=== PATIENT | female | born 1950 | race Caucasian/White ===

== ENCOUNTER 2020-05-27 10:43 | Emergency (ER) | payer MEDICARE, SELFPAY ==
--- NOTE | 2020-05-27 | XR_ITS ---
EXAMINATION: XR LUMBOSACRAL SPINE CLINICAL INFORMATION: Pain COMPARISON: May 08, 2015 TECHNIQUE: Three views of the lumbosacral spine. FINDINGS: There is osteopenia visualized bones. There are again noted to be less than 50% compression fractures of the L3 and L4 vertebral bodies which are stable. There is a grade 1 spondylolisthesis L4-L5. There is severe narrowing of the L5-S1 disc space with marginal sclerosis. There is some degenerative sclerosis seen about the left sacroiliac joint without evidence of fusion or widening. Facet arthropathy is seen L2-S1. IMPRESSION: Stable appearance of the lumbar spine with multilevel degenerative change as described. Stable compression fractures L3 and L4.
[2020-05-27 10:57] VITALS: BP 132/88; BP 133/67; PULSE 88; PULSE 89; RESP 16; TEMP 36.7; O2SAT 94; O2SAT 95; BMI 31.6
--- NOTE | 2020-05-27 10:58 | ED_ITS ---
HPI - Back Pain/Injury General Chief Complaint: Back Pain/Injury Stated Complaint: CHRONIC R LEG PAIN Time Seen by Provider: 05/27/20 10:53 Source: patient and EMS Mode of arrival: EMS Limitations: no limitations History of Present Illness MD elicited complaint: back pain Pertinent past history: prior back pain and other Onset (ago): year(s) Timing: constant Severity: severe Quality: sharp Location: lumbar spine Radiation: right upper leg Exacerbating factors: movement Relieving factors: none Associated symptoms: denies other symptoms Treatments prior to arrival: prescription analgesics (tramadol for R wrist but it isn't working) Related Data Home Medications Medication Instructions Recorded Confirmed alendronate 70 mg PO QWEEK 05/27/20 05/27/20 allopurinol 300 mg PO DAILY 05/27/20 05/27/20 cyanocobalamin (vitamin B-12) 500 mcg PO DAILY 05/27/20 05/27/20 furosemide 40 mg PO BID 05/27/20 05/27/20 insulin aspart U-100 [Novolog See Rx Instructions .ROUTE .COMPLEX 05/27/20 05/27/20 Flexpen U-100 Insulin] liraglutide [Victoza 3-Toby] 1.8 mg SUBCUT DAILY 05/27/20 05/27/20 magnesium oxide 400 mg PO DAILY 05/27/20 05/27/20 melatonin 3 mg PO BEDTIME PRN 05/27/20 05/27/20 multivitamin 1 tab PO DAILY 05/27/20 05/27/20 omega-3 fatty acids [Fish Oil] 500 mg PO DAILY 05/27/20 05/27/20 pregabalin 75 mg PO BID 05/27/20 05/27/20 simvastatin 10 mg PO BEDTIME 05/27/20 05/27/20 spironolactone 100 mg PO DAILY 05/27/20 05/27/20 tramadol 50 mg PO Q6H PRN 05/27/20 05/27/20 Allergies Allergy/AdvReac Type Severity Reaction Status Date / Time zolpidem [From AMBIEN] Allergy Severe SLEEP Verified 05/27/20 10:57 WALKING lactic acid [From LAC-HYDRIN] Allergy Intermediate RASH Verified 05/27/20 10:57 latex [Latex] Allergy Intermediate HIVES Verified 05/27/20 10:57 varenicline [From CHANTIX] Allergy Intermediate RASH Verified 05/27/20 10:57 From Benadryl Allergy Intermediate HIVES Uncoded 05/11/20 16:08 Review of Systems Review of Systems: Constitutional : No Weight loss, No Fever, No Chills, ENT/Mouth : No sore throat, No Rhinorrhea Cardiovascular : No Chest Pain, No SOB Respiratory : No Cough, No Dyspnea Gastrointestinal : No Nausea, No Vomiting, No Diarrhea, No abdominal Pain, No Hematochezia, No Melena Genitourinary : No Dysuria, No Urinary Frequency Musculoskeletal : positive back pain R sided radiates down R leg Skin : No Skin Lesions, No rash Neuro : No Weakness, No Numbness, No Paresthesias, no loss of bowel or bladder incontinence, no saddle anesthesia [facility] Past Medical History Attestation statement: The following information was validated with the patient. Medical History (Updated 05/27/20 @ 15:55 by Ashley Caal DO) Anxiety Cellulitis Chronic back pain Diabetes HTN (hypertension) Venous stasis dermatitis Surgical History (Updated 05/27/20 @ 11:00 by Ashley Caal DO) H/O section S/P cervical spinal fusion Social History Social History (Updated 05/27/20 @ 11:00 by Ashley Caal DO) Alcohol intake: never Smoking Status: Current every day smoker Use of substances other than those prescribed or required for medical reasons: No Advance Directives: No Advance Directives Information Provided: No Physical Exam Vital Signs and I&O and Narrative: Vital Signs and I&O: Vital Signs Temp 97.7 F 05/27/20 14:08 Pulse 70 05/27/20 14:08 Resp 18 05/27/20 14:08 BP 153/60 H 05/27/20 14:08 Pulse Ox 95 05/27/20 14:08 Intake & Output 05/26/20 05/27/20 05/27/20 18:59 06:59 18:59 Weight 81 kg Body Mass Index 31.6 Appearance: Alert. Oriented X3. No acute distress. Eyes: Pupils equal, round and reactive to light. ENT: Pharynx normal. Neck: Normal inspection. Neck supple. CVS: Normal heart rate and rhythm. Pulses normal. Respiratory: No respiratory distress. Breath sounds normal. Abdomen: Soft and nontender. Back: ttp along R lumbar area into buttock Skin: Skin warm and dry. Normal skin color. Normal skin turgor. darkening of bilateral anterior lower legs Extremities: No lower extremity edema. R wrist in splint Neuro: Oriented X 3. No motor deficit. No sensory deficit. Course Reevaluation(s) Reevaluation #1: signed out to Dr. Munguia pending CM and PT MDM - Back Pain/Injury MDM Narrative Medical decision making narrative: patient at home - not really able to take care of herself per EMS, patient reports R wrist fracture 2 weeks ago after a fall - taking tramadol it's crappy it doesn't work. also c/o low back pain, EMS worried about patient ?need for STR, patient is NV intact will need labs, xray of lumbar spine, PO pain medications and referral to PT and CM Lab Data Result diagrams: 05/27/20 11:54 05/27/20 11:54 Labs: Lab Results 05/27/20 05/27/20 05/27/20 Range/Units 11:04 11:54 11:54 WBC 7.7 (4.8-10.8) X10*3/uL RBC 4.28 (4.20-5.50) X10*6/uL Hgb 13.0 (12.0-16.0) g/dl Hct 39.7 (37-47) % MCV 92.8 (80-98) fL MCH 30.4 (27.0-33.0) pg MCHC 32.7 (31.0-35.0) g/dl RDW 14.3 (11.0-16.0) % Plt Count 181 (160-400) X10*3/uL MPV 11.9 (9.4-12.3) fL Immature Gran % (Auto) 0.8 H (0.0-0.4) % Neut % (Auto) 63.1 (45-73) % Lymph % (Auto) 21.2 (20-40) % Vilas % (Auto) 11.1 H (2-11) % Eos % (Auto) 3.4 (0-4) % Baso % (Auto) 0.4 (0-2) % Neut # (Auto) 4.9 (2.0-8.3) X10*3/uL Lymph # (Auto) 1.6 (1.2-4.9) X10*3/uL Vilas # (Auto) 0.9 (0.1-1.2) X10*3/uL Eos # (Auto) 0.3 (0.0-0.4) X10*3/uL Baso # (Auto) 0.0 (0.0-0.2) X10*3/uL Abs Immat Gran (auto) 0.06 H (0.00-0.03) X10*3/uL Absolute Nucleated RBC 0.000 (0.0-0.012) X10*3/uL Nucleated RBC % (auto) 0.0 (0.0-0.2) /100WBC Hold Blue Top SEE NOTE Sodium (135-145) mmol/L Potassium (3.3-5.1) mmol/l Chloride (96-108) mmol/L Carbon Dioxide (22-29) mmol/L Anion Gap (12-20) BUN (9-16) mg/dL Creatinine (0.5-1.4) mg/dL Estim Creat Clear Calc Estimated GFR POC Glucose 335 H (60-115) mg/dL Random Glucose (60-115) mg/dL Calcium (8.4-10.2) mg/dL Magnesium (1.6-2.6) mg/dL Total Bilirubin (0.0-1.0) mg/dL Direct Bilirubin (0.0-0.5) mg/dL AST (5-31) U/L ALT (0-31) U/L Alkaline Phosphatase (39-117) U/L Total Protein (6.5-8.0) g/dL Albumin (3.5-5.0) g/dL 05/27/20 Range/Units 11:54 WBC (4.8-10.8) X10*3/uL RBC (4.20-5.50) X10*6/uL Hgb (12.0-16.0) g/dl Hct (37-47) % MCV (80-98) fL MCH (27.0-33.0) pg MCHC (31.0-35.0) g/dl RDW (11.0-16.0) % Plt Count (160-400) X10*3/uL MPV (9.4-12.3) fL Immature Gran % (Auto) (0.0-0.4) % Neut % (Auto) (45-73) % Lymph % (Auto) (20-40) % Vilas % (Auto) (2-11) % Eos % (Auto) (0-4) % Baso % (Auto) (0-2) % Neut # (Auto) (2.0-8.3) X10*3/uL Lymph # (Auto) (1.2-4.9) X10*3/uL Vilas # (Auto) (0.1-1.2) X10*3/uL Eos # (Auto) (0.0-0.4) X10*3/uL Baso # (Auto) (0.0-0.2) X10*3/uL Abs Immat Gran (auto) (0.00-0.03) X10*3/uL Absolute Nucleated RBC (0.0-0.012) X10*3/uL Nucleated RBC % (auto) (0.0-0.2) /100WBC Hold Blue Top Sodium 136 (135-145) mmol/L Potassium 4.0 (3.3-5.1) mmol/l Chloride 97 (96-108) mmol/L Carbon Dioxide 31 H (22-29) mmol/L Anion Gap 12 (12-20) BUN 19 H (9-16) mg/dL Creatinine 1.06 (0.5-1.4) mg/dL Estim Creat Clear Calc 48.3 Estimated GFR 51 POC Glucose (60-115) mg/dL Random Glucose 332 H (60-115) mg/dL Calcium 8.8 (8.4-10.2) mg/dL Magnesium 1.8 (1.6-2.6) mg/dL Total Bilirubin 0.5 (0.0-1.0) mg/dL Direct Bilirubin 0.3 (0.0-0.5) mg/dL AST 14 (5-31) U/L ALT 19 (0-31) U/L Alkaline Phosphatase 94 (39-117) U/L Total Protein 5.7 L (6.5-8.0) g/dL Albumin 3.5 (3.5-5.0) g/dL Discharge Plan Discharge Clinical Impression: Lumbar radiculopathy Prescriptions: No Action tramadol 50 mg tablet 50 mg PO Q6H PRN (Reason: pain) RF: 0 multivitamin Tablet 1 tab PO DAILY RF: 0 furosemide 40 mg tablet 40 mg PO BID RF: 0 alendronate 70 mg tablet 70 mg PO QWEEK RF: 0 spironolactone 100 mg tablet 100 mg PO DAILY RF: 0 simvastatin 10 mg tablet 10 mg PO BEDTIME RF: 0 melatonin 3 mg tablet 3 mg PO BEDTIME PRN (Reason: insomnia) RF: 0 cyanocobalamin (vitamin B-12) 500 mcg tablet 500 mcg PO DAILY RF: 0 allopurinol 300 mg tablet 300 mg PO DAILY RF: 0 insulin aspart U-100 [Novolog Flexpen U-100 Insulin] 100 unit/mL (3 mL) insulin pen See Rx Instructions unit .ROUTE .COMPLEX RF: 0 pregabalin 75 mg Capsule 75 mg PO BID RF: 0 Fish Oil 500 mg Capsule 500 mg PO DAILY RF: 0 Victoza 3-Toby 0.6 mg/0.1 mL (18 mg/3 mL) pen injector 1.8 mg subcut DAILY RF: 0 magnesium oxide 400 mg magnesium Tablet 400 mg PO DAILY RF: 0
[2020-05-27 11:17] LABS: Glucose, Whole Blood 335 mg/dL (60-115)
[2020-05-27] MEDS: oxyCODONE HCl Immed Release 5 MG TABLET PO (11:21)
[2020-05-27 12:20] LABS: MANUAL DIFF FLAG NO
--- NOTE | 2020-05-27 12:21 | MHC.CM.ED ---
pt lives alone in her apt. she reports that she uses a walker, wc and cane c ambulation; and has been managing despite her fractured R wrist from 05/18/20, which is still injured c an krishan bandage. pt reports that she is active c a vna which is scheduled to visit this friday. she believes the agency is [employer] [facility] - a ref. has been made. if this is not the correct agency then patient will be advised to contact the correct vna if she needs to p returning home where she has the correct vna name established. pt has 3 children that live in the area, she reports that they can help her if she needs it. although they cannot help her c a ride home if she is dc'd home from the e.d. in this case a van may be suitable. at this time pt is reporting that she does not want to go to STR or nsg home, but wants to return home. however, PT has not seen the patient yet for the PT eval. after the findings of the PT eval, the patient may change her mind and cm will re-assess pt's willingness to go to STR if approp. cm to cont. to follow.
[2020-05-27 12:29] LABS: Basophils Percent Auto 0.4 % (0-2); Eosinophils Absolute Auto 0.3 X10*3/uL (0.0-0.4); Eosinophils Percent Auto 3.4 % (0-4); Hematocrit 39.7 % (37-47); Imm Gran Abs Auto 0.06 X10*3/uL (0.00-0.03); Imm Gran Pct Auto 0.8 % (0.0-0.4); Lymphocytes Absolute Auto 1.6 X10*3/uL (1.2-4.9); Lymphocytes Percent Auto 21.2 % (20-40); Mean Corpuscular HGB Conc 32.7 g/dl (31.0-35.0); Mean Corpuscular Hemoglobin 30.4 pg (27.0-33.0); Mean Corpuscular Volume 92.8 fL (80-98); Mean Platelet Volume 11.9 fL (9.4-12.3); Monocytes Absolute Auto 0.9 X10*3/uL (0.1-1.2); Monocytes Percent Auto 11.1 % (2-11); Neutrophils Absolute Auto 4.9 X10*3/uL (2.0-8.3); Neutrophils Percent Auto 63.1 % (45-73); Platelet Count 181 X10*3/uL (160-400); Red Blood Count 4.28 X10*6/uL (4.20-5.50); Red Cell Distribution Width 14.3 % (11.0-16.0); White Blood Count 7.7 X10*3/uL (4.8-10.8)
[2020-05-27 12:47] VITALS: BP 160/67; PULSE 88; RESP 17; TEMP 36.6
[2020-05-27 12:47] LABS: Alanine Aminotransferase 19 U/L (0-31); Albumin Level 3.5 g/dL (3.5-5.0); Alkaline Phosphatase 94 U/L (39-117); Anion Gap 12 (12-20); Aspartate Amino Transferase 14 U/L (5-31); Bilirubin Direct 0.3 mg/dL (0.0-0.5); Bilirubin Total 0.5 mg/dL (0.0-1.0); Blood Urea Nitrogen 19 mg/dL (9-16); Calcium 8.8 mg/dL (8.4-10.2); Carbon Dioxide 31 mmol/L (22-29); Chloride 97 mmol/L (96-108); Creatinine Clr Calc Pharmacy 48.3; Estimated Glomerular Filt Rate 51; Glucose Random 332 mg/dL (60-115); Magnesium 1.8 mg/dL (1.6-2.6); Sodium 136 mmol/L (135-145); Total Protein 5.7 g/dL (6.5-8.0)
[2020-05-27] MEDS: HYDROmorphone HCl 2 MG TABLET PO (13:23)
[2020-05-27] MEDS: Lidocaine 4 % Patch ADH..PATCH 1 PATCH TRANSDERMA (13:24)
[2020-05-27 14:08] VITALS: BP 153/60; PULSE 70; RESP 18; TEMP 36.5; O2SAT 95
== END 2020-05-27 17:05 | disposition home or self-care (01) ==
PROVIDERS: Emergency Medicine; Emergency Provider Emergency Medicine; PCP Ophthalmology
DX: M54.16 Radiculopathy, lumbar region (principal); I10 Essential (primary) hypertension; E11.9 Type 2 diabetes mellitus without complications; F17.200 Nicotine dependence, unspecified, uncomplicated
CPT/HCPCS: 36415; 72100; 80048; 80076; 82947; 83735; 85025; 99284

== ENCOUNTER 2020-05-30 13:25 | Emergency (ER) | payer MEDICARE, SELFPAY ==
--- NOTE | 2020-05-30 | XR_ITS ---
EXAMINATION: RIGHT HAND AND WRIST X-RAY CLINICAL INFORMATION: Fall. Pain. COMPARISON: Previous x-ray most recent April 2020 TECHNIQUE: 4 views of the right hand and wrist FINDINGS: There is a transverse nondisplaced fracture of the distal radius. There may be slight dorsal angulation on the lateral view. This does not appear changed from 05/18/2020 exam. No new fracture is seen. There is a severe arthritis at the IP joints, first and fifth MCP joints and first CORRECTION joints with joint space narrowing and osteophyte formation. There is periarticular soft tissue swelling. There is a small 1 x 3 mm radiopaque density in the soft tissues of the distal phalanx of the third finger that is unchanged. IMPRESSION: Transverse nondisplaced fracture of the right distal radius similar to 05/18/2020 exam. No new fracture is seen. Arthritis.
--- NOTE | 2020-05-30 14:20 | ED_ITS ---
HPI - Extremity Problem General Chief complaint: Back Pain/Injury Stated complaint: BACK PAIN Time Seen by Provider: 05/30/20 14:10 Source: patient Mode of arrival: ambulatory Limitations: no limitations History of Present Illness HPI Narrative: patient tells me about 1 week ago she had a fall catching herself with her right wrist. She was seen at urgent care and was told she has a fracture. The patient told me she was placed in an Yoel wrap and was instructed to follow up with primary care doctor. Patient taking tramadol at home with continued pain. No new injury or trauma. No redness, fevers, chills. The patient is also complaining of acute on chronic back pain which she contributes to sciatica. Pain is more on the right side and radiates down the right leg. No saddle anesthesia. No incontinence. No fevers or chills. The patient is ambulatory. Related Data Home Medications Medication Instructions Recorded Confirmed alendronate 70 mg PO QWEEK 05/27/20 05/27/20 allopurinol 300 mg PO DAILY 05/27/20 05/27/20 cyanocobalamin (vitamin B-12) 500 mcg PO DAILY 05/27/20 05/27/20 furosemide 40 mg PO BID 05/27/20 05/27/20 insulin aspart U-100 [Novolog See Rx Instructions .ROUTE .COMPLEX 05/27/20 05/27/20 Flexpen U-100 Insulin] liraglutide [Victoza 3-Toby] 1.8 mg SUBCUT DAILY 05/27/20 05/27/20 magnesium oxide 400 mg PO DAILY 05/27/20 05/27/20 melatonin 3 mg PO BEDTIME PRN 05/27/20 05/27/20 multivitamin 1 tab PO DAILY 05/27/20 05/27/20 omega-3 fatty acids [Fish Oil] 500 mg PO DAILY 05/27/20 05/27/20 pregabalin 75 mg PO BID 05/27/20 05/27/20 simvastatin 10 mg PO BEDTIME 05/27/20 05/27/20 spironolactone 100 mg PO DAILY 05/27/20 05/27/20 tramadol 50 mg PO Q6H PRN 05/27/20 05/27/20 Previous Rx's Medication Instructions Recorded acetaminophen 650 mg PO Q6H PRN #20 cap 05/30/20 cyclobenzaprine 5 mg PO Q8H PRN #10 tab 05/30/20 lidocaine [Lidoderm] 1 patch TOPICAL DAILY #15 ea 05/30/20 oxycodone 5 mg PO BID PRN #5 cap 05/30/20 Allergies Allergy/AdvReac Type Severity Reaction Status Date / Time zolpidem [From AMBIEN] Allergy Severe SLEEP Verified 05/27/20 10:57 WALKING lactic acid [From LAC-HYDRIN] Allergy Intermediate RASH Verified 05/27/20 10:57 latex [Latex] Allergy Intermediate HIVES Verified 05/27/20 10:57 varenicline [From CHANTIX] Allergy Intermediate RASH Verified 05/27/20 10:57 From Benadryl Allergy Intermediate HIVES Uncoded 05/11/20 16:08 Review of Systems Review of Systems: Yes all other systems are reviewed and are negative Constitutional: Constitutional: Reports no additional constitutional complaints, Denies body ache(s), Denies chills, Denies fever(s), Denies headache(s) and Denies weakness Eyes: Eyes: Reports no additional eye complaints and Denies change in vision ENT: Reports system reviewed and no additional complaints, except as documented, Denies dizziness, Denies headache(s), Denies nasal congestion, Denies nasal discharge and Denies neck pain Cardiovascular: Cardiovascular: Reports no additional cardiovascular co mplaints, Denies chest pain, Denies leg edema and Denies dyspnea Respiratory: Respiratory: Reports no additional respiratory complaints, Denies cough and Denies dyspnea Gastrointestinal: Gastrointestinal: Reports no additional gastrointestinal complaints, Denies abdominal pain, Denies diarrhea, Denies nausea and Denies vomiting Genitourinary: Genitourinary: Reports no additional female genitourinary complaints and Denies urinary incontinence Musculoskeletal: Musculoskeletal: Reports no additional musculoskeletal complaints, Reports back pain, Reports arthralgias, Denies joint swelling, Denies neck pain, Denies numbness and Denies tingling Integumentary/Breasts: Skin/Breast: Reports system reviewed and no additional complaints, except as docu and Denies rash Neurologic: Reports system reviewed and no additional complaints, except as documented, Denies Abnormal speech present, Denies dizziness, Denies headache(s), Denies numbness, Denies tingling and Denies weakness PMFSH Past Medical History Attestation statement: The following information was validated with the patient. Source: obtained from family and nursing notes reviewed Medical History Anxiety Cellulitis Chronic back pain Diabetes HTN (hypertension) Venous stasis dermatitis Surgical History H/O section S/P cervical spinal fusion Social History Social History Alcohol intake: never Smoking Status: Current every day smoker Advance Directives: No Advance Directives Information Provided: Yes Physical Exam Vital Signs and I&O and Narrative: Vital Signs and I&O: Vital Signs Temp 98.1 F 05/30/20 15:06 Pulse 91 05/30/20 15:06 Resp 18 05/30/20 15:06 BP 120/65 05/30/20 15:06 Pulse Ox 97 05/30/20 15:06 Intake & Output 05/29/20 05/30/20 05/30/20 18:59 06:59 18:59 Weight 72.575 kg Body Mass Index 28.3 Const: Other: Anxious, in pain General: cooperative, healthy appearing, co mfortable and no acute distress Orientation/consciousness: patient oriented x3 Limitations: no limitations HENMT: Head: Yes normal to inspection Ears: hearing grossly normal bilaterally General nose exam: Normal external nose present Face and sinus: Yes normal facial exam Mouth: Normal oral and palatal mucosa present Throat: Yes posterior oropharynx normal Eyes: General: appearance normal, both eyes and all related structures Pupils: Equal, round and reactive pupils present Neck: Neck: Yes normal visual inspection Chest: Chest palpation & inspection: normal inspection of the chest Resp: Effort & Inspection: normal respiratory effort Auscultation: clear to auscultation bilaterally Cardio: Rate: regular rate Rhythm: regular rhythm Peripheral pulses: Peripheral pulses 2+ throughout GI: Inspection: Yes normal to inspection Palpation (GI): Soft to palpation and nontender Auscultation: normal bowel sounds Back/Spine/Pelvis: Thoracic/Lumbar Spine: thoracic and lumbar spine normal to inspection, pain with thoraco-lumbar ROM and paraspinal muscle tenderness ( Tenderness to the right lower lumbar paraspinal area. No midline tendern) on the right Skin: General skin exam: no rashes or lesions noted Neuro: General: patient oriented x3, no focal motor deficits and normal sensation to monofilament Cranial nerves: Yes Equal, round and reactive pupils present Cognition (Neuro): normal cognition Speech: No Abnormal speech present Gait exam (Neuro): Normal gait present Motor exam (neuro): 5/5 motor strength present throughout Extrem: Other: Yoel wrap present on right upper extremity. It was removed. The patient has pain over her dorsal wrist. There is mild swelling. Pain with flexion and extension but is able to do so. Neurovascularly intact distally. No elbow or shoulder pain. Course Reevaluation(s) Reevaluation #1: Nursing came up to me as the family was expressing concerns about the patient's safety at home due to her chronic back pain and now new right wrist fracture. They are requesting case management involvement. Case management was notified. Time: 15:27 MDM - Extremity (Nontraumatic) MDM Narrative Medical decision making narrative: patient here with right wrist pain status post recent fall. Arrives with an Yoel wrap in place. No new injury or trauma. The patient believes that she has a fracture and was seen at urgent care about a week ago for the same. On exam has some swelling and tenderness over the dorsal wrist. Imaging today shows a transverse nondisplaced fracture of the right distal radius similar to previous. No new arthritis. Arthritis is present. Patient was placed in a volar splint. She has a sling in from home. Also complaining of acute on chronic low back pain which she contributes to sciatica unrelieved with home tramadol. No neuro deficits. No red flag symptoms. No midline tenderness so I do not think imaging would be beneficial. Patient was medicated with p.o. oxycodone with improvement of pain. Family expressed concerns over patient's safety at home due to multiple complaints. Plan for case management involvement. 1600- Spoke to daughter Rosemarie who is in the waiting room. She tells me that the patient has a nurse who comes into the home to help with care. She after long discussion does feel comfortable with the patient going home and does not feel like she needs short-term rehab placement. She was more concerned over the patient's pain control at home. We offered some alternatives to help manage her pain. Also discussed close follow-up with primary care. Reviewed worrisome signs and symptoms and when to return to the emergency department. Comfortable discharge home. Imaging Data Wrist x-ray: My impression: transverse nondisplaced fracture of the right distal radius somewhat a previous Radiologist's impression: EXAMINATION: RIGHT HAND AND WRIST X-RAY CLINICAL INFORMATION: Fall. Pain. COMPARISON: Previous x-ray most recent April 2020 TECHNIQUE: 4 views of the right hand and wrist FINDINGS: There is a transverse nondisplaced fracture of the distal radius. There may be slight dorsal angulation on the lateral view. This does not appear changed from 05/18/2020 exam. No new fracture is seen. There is a severe arthritis at the IP joints, first and fifth MCP joints and first [facility] joints with joint space narrowing and osteophyte formation. There is periarticular soft tissue swelling. There is a small 1 x 3 mm radiopaque density in the soft tissues of the distal phalanx of the third finger that is unchanged. IMPRESSION: Transverse nondisplaced fracture of the right distal radius similar to 05/18/2020 exam. No new fracture is seen. Arthritis. Discharge Plan Discharge Clinical Impression: Sciatica Qualifiers: Laterality: unspecified laterality Qualified Code(s): M54.30 - Sciatica, unspecified side Distal radial fracture Qualifiers: Encounter type: subsequent encounter Fracture type: closed Laterality: right Patient Disposition: Home, Self-Care Instructions: Arm Fracture in Adults (ED), Sciatica (ED) Additional Instructions: Keep splint on at all times. Do not get it try. Use sling for comfort. Elevation, ice over splint. Call orthopedics for a follow-up Heat or ice to low back. Gentle stretching. No heavy lifting or bending. I have prescribed a small dose of oxycodone. DO NOT take with tramadol. Prescriptions: New acetaminophen 325 mg capsule 650 mg PO Q6H PRN (Reason: pain) Qty: 20 RF: 0 lidocaine [Lidoderm] 5 % adhesive patch,medicated 1 patch topical DAILY Qty: 15 RF: 0 cyclobenzaprine 5 mg tablet 5 mg PO Q8H PRN (Reason: muscle spasm) Qty: 10 RF: 0 oxycodone 5 mg capsule 5 mg PO BID PRN (Reason: pain) Qty: 5 RF: 0 No Action tramadol 50 mg tablet 50 mg PO Q6H PRN (Reason: pain) RF: 0 multivitamin Tablet 1 tab PO DAILY RF: 0 furosemide 40 mg tablet 40 mg PO BID RF: 0 alendronate 70 mg tablet 70 mg PO QWEEK RF: 0 spironolactone 100 mg tablet 100 mg PO DAILY RF: 0 simvastatin 10 mg tablet 10 mg PO BEDTIME RF: 0 melatonin 3 mg tablet 3 mg PO BEDTIME PRN (Reason: insomnia) RF: 0 cyanocobalamin (vitamin B-12) 500 mcg tablet 500 mcg PO DAILY RF: 0 allopurinol 300 mg tablet 300 mg PO DAILY RF: 0 insulin aspart U-100 [Novolog Flexpen U-100 Insulin] 100 unit/mL (3 mL) insulin pen See Rx Instructions unit .ROUTE .COMPLEX RF: 0 pregabalin 75 mg Capsule 75 mg PO BID RF: 0 Fish Oil 500 mg Capsule 500 mg PO DAILY RF: 0 Victoza 3-Toby 0.6 mg/0.1 mL (18 mg/3 mL) pen injector 1.8 mg subcut DAILY RF: 0 magnesium oxide 400 mg magnesium Tablet 400 mg PO DAILY RF: 0 Referrals: Duane Barber MD [Physician] - 2 days Ranjeet Rushing MD [Primary Care Provider] - 2 days
[2020-05-30 15:06] VITALS: BP 120/65; PULSE 91; RESP 18; TEMP 36.7; O2SAT 97; BMI 28.3
--- NOTE | 2020-05-30 15:23 | PC.NURSE ---
pts daughter concerned re: pts dementia and returning home as she lives alone. KIERRA Dean updated, case mgt to be notified re: these concerns
[2020-05-30] MEDS: oxyCODONE HCl Immed Release 5 MG TABLET PO (15:38)
--- NOTE | 2020-05-30 16:29 | PC.NURSE ---
KIERRA AHN SPOKE WITH DAUGHTER AND THEY AGREED ON A PLAN OF CARE AT HOME PT HAS HOME HEALTH AID ALREADY IN PLACE PT WILL F/U WITH ORTHO SPLINT IN PLACE AND PAIN MEDICATION FOR HOME.
== END 2020-05-30 16:34 | disposition home or self-care (01) ==
PROVIDERS: Emergency Provider Emergency Medicine; PCP Internal Medicine
DX: S52.91XA Unspecified fracture of right forearm, initial encounter for closed fracture (principal); M54.42 Lumbago with sciatica, left side; M54.41 Lumbago with sciatica, right side; M79.662 Pain in left lower leg; M79.661 Pain in right lower leg; W18.30XA Fall on same level, unspecified, initial encounter; Y93.9 Activity, unspecified; Y92.9 Unspecified place or not applicable; F17.200 Nicotine dependence, unspecified, uncomplicated; Z71.6 Tobacco abuse counseling; Z79.899 Other long term (current) drug therapy
CPT/HCPCS: 73110; 73130; 99284

== ENCOUNTER 2020-06-06 22:01 | Emergency (ER) | payer MEDICARE, SELFPAY ==
[2020-06-06 22:03] VITALS: BP 119/58; PULSE 93; RESP 18; TEMP 35.6; O2SAT 96; BMI 27.4
--- NOTE | 2020-06-07 01:22 | ED.GENADULT ---
HPI - General Adult General Chief complaint: Fall Stated complaint: fall Time Seen by Provider: 06/07/20 01:11 Source: patient Mode of arrival: ambulatory Limitations: no limitations History of Present Illness HPI narrative: Patient comes to emergency room complaining of 2 falls today. patient states earlier today she was baking a pie, dropped to the floor, as she was picking it up, she fell to the floor. Patient states she did not hit her head, did not lose consciousness. Patient was unable to get up by herself, however she screamed for help and her next door neighbor helped her. Patient was ambulatory afterwards. Patient's neighbor called the patient's daughter who wanted to know how she fell, as the patient was demonstrating how she fell, she actually fell again. patient fell on May 18, has a fracture on the right wrist. Patient has an appointment with Orthopedics later today. patient denies any pain MD complaint: frequent falls Onset (ago): hour(s) Radiation: non-radiation Severity: moderate Related Data Home Medications Medication Instructions Recorded Confirmed alendronate 70 mg PO QWEEK 05/27/20 06/07/20 allopurinol 300 mg PO DAILY 05/27/20 06/07/20 cyanocobalamin (vitamin B-12) 500 mcg PO DAILY 05/27/20 06/07/20 furosemide 40 mg PO BID 05/27/20 06/07/20 insulin aspart U-100 [Novolog See Rx Instructions .ROUTE .COMPLEX 05/27/20 06/07/20 Flexpen U-100 Insulin] liraglutide [Victoza 3-Toby] 1.8 mg SUBCUT DAILY 05/27/20 06/07/20 magnesium oxide 400 mg PO DAILY 05/27/20 06/07/20 melatonin 3 mg PO BEDTIME PRN 05/27/20 06/07/20 multivitamin 1 tab PO DAILY 05/27/20 06/07/20 omega-3 fatty acids [Fish Oil] 500 mg PO DAILY 05/27/20 06/07/20 pregabalin 75 mg PO BID 05/27/20 06/07/20 simvastatin 10 mg PO BEDTIME 05/27/20 06/07/20 spironolactone 100 mg PO DAILY 05/27/20 06/07/20 tramadol 50 mg PO Q6H PRN 10/03/20 10/14/20 Previous Rx's Medication Instructions Recorded acetaminophen 650 mg PO Q6H PRN #20 cap 05/30/20 cyclobenzaprine 5 mg PO Q8H PRN #10 tab 05/30/20 lidocaine [Lidoderm] 1 patch TOPICAL DAILY #15 ea 05/30/20 oxycodone 5 mg PO BID PRN #5 cap 05/30/20 Allergies Allergy/AdvReac Type Severity Reaction Status Date / Time zolpidem [From AMBIEN] Allergy Severe SLEEP Verified 05/27/20 10:57 WALKING lactic acid [From LAC-HYDRIN] Allergy Intermediate RASH Verified 05/27/20 10:57 latex [Latex] Allergy Intermediate HIVES Verified 05/27/20 10:57 varenicline [From CHANTIX] Allergy Intermediate RASH Verified 05/27/20 10:57 From Benadryl Allergy Intermediate HIVES Uncoded 05/11/20 16:08 PMFSH Past Medical History Medical History Anxiety Cellulitis Chronic back pain Diabetes HTN (hypertension) Venous stasis dermatitis Surgical History H/O section S/P cervical spinal fusion Social History Social History Alcohol intake: never Smoking Status: Never smoker Use of substances other than those prescribed or required for medical reasons: No Advance Directives: No Advance Directives Information Provided: No Physical Exam Vital Signs: Vital Signs: Vital Signs Temp Pulse Resp BP Pulse Ox 06/07/20 07:55 85 153/59 H 95 06/07/20 02:27 85 16 153/59 H 95 06/06/20 22:03 96.1 F L 93 18 119/58 L 96 Body Mass Index 27.4 Course Course Course Narrative: case management pending case management pending Reevaluation(s) Reevaluation #1: case management pending, physical therapy evaluated the patient and recommends short-term rehab. Sign-out given to Dr. Caal. Later today this afternoon, patient has an appointment pending with Orthopedics for the follow-up fracture on the right wrist. Medical Decision Making MDM Narrative Medical decision making narrative: physical therapy evaluated the patient, patient does need short-term rehab Lab Data Result diagrams: 06/07/20 01:48 06/07/20 01:48 Labs: Lab Results 06/07/20 06/07/20 06/07/20 Range/Units 01:48 01:48 05:42 WBC 9.1 (4.8-10.8) X10*3/uL RBC 3.99 L (4.20-5.50) X10*6/uL Hgb 12.2 (12.0-16.0) g/dl Hct 37.9 (37-47) % MCV 95.0 (80-98) fL MCH 30.6 (27.0-33.0) pg MCHC 32.2 (31.0-35.0) g/dl RDW 14.5 (11.0-16.0) % Plt Count 240 D (160-400) X10*3/uL MPV 11.0 (9.4-12.3) fL Immature Gran % (Auto) 0.7 H (0.0-0.4) % Neut % (Auto) 50.6 (45-73) % Lymph % (Auto) 33.2 (20-40) % [place] % (Auto) 9.4 (2-11) % Eos % (Auto) 5.8 H (0-4) % Baso % (Auto) 0.3 (0-2) % Lymph # (Auto) 3.0 (1.2-4.9) X10*3/uL [place] # (Auto) 0.9 (0.1-1.2) X10*3/uL Eos # (Auto) 0.5 H (0.0-0.4) X10*3/uL Baso # (Auto) 0.0 (0.0-0.2) X10*3/uL Abs Immat Gran (auto) 0.06 H (0.00-0.03) X10*3/uL Absolute Neuts (auto) 4.6 (2.0-8.3) X10*3/uL Absolute Nucleated RBC 0.000 (0.0-0.012) X10*3/uL Nucleated RBC % (auto) 0.0 (0.0-0.2) /100WBC Sodium 136 (135-145) mmol/L Potassium 3.5 (3.3-5.1) mmol/l Chloride 96 (96-108) mmol/L Carbon Dioxide 34 H (22-29) mmol/L Anion Gap 10 L (12-20) BUN 23 H (9-16) mg/dL Creatinine 1.46 H (0.5-1.4) mg/dL Estim Creat Clear Calc 32.7 Estimated GFR 35 Random Glucose 62 D (60-115) mg/dL Calcium 8.8 (8.4-10.2) mg/dL Total Bilirubin 0.5 (0.0-1.0) mg/dL Direct Bilirubin 0.2 (0.0-0.5) mg/dL AST 21 D (5-31) U/L ALT 18 (0-31) U/L Alkaline Phosphatase 99 (39-117) U/L Total Protein 5.8 L (6.5-8.0) g/dL Albumin 3.6 (3.5-5.0) g/dL Urine Color STRAW Urine Appearance HAZY Urine pH 6.5 (5.0-8.0) Ur Specific [place] 1.010 (1.005-1.025) Urine Protein NEG (NEG-TRACE) MG/DL Urine Glucose (UA) NEG (NEG) MG/DL Urine Ketones NEG (NEG) MG/DL Urine Blood NEG (NEG) Urine Nitrite POS H (NEG) Ur Leukocyte Esterase 1+ H (NEG) Urine RBC 0-2 (0) /HPF Urine WBC 15-29 H (0-4) /HPF Ur Squamous Epith Cells 2+ /LPF Urine Bacteria 2+ /LPF Urine Yeast TRACE /HPF Discharge Plan Discharge Clinical Impression: Recurrent falls Prescriptions: No Action tramadol 50 mg tablet 50 mg PO Q6H PRN (Reason: pain) RF: 0 multivitamin Tablet 1 tab PO DAILY RF: 0 furosemide 40 mg tablet 40 mg PO BID RF: 0 alendronate 70 mg tablet 70 mg PO QWEEK RF: 0 spironolactone 100 mg tablet 100 mg PO DAILY RF: 0 simvastatin 10 mg tablet 10 mg PO BEDTIME RF: 0 melatonin 3 mg tablet 3 mg PO BEDTIME PRN (Reason: insomnia) RF: 0 cyanocobalamin (vitamin B-12) 500 mcg tablet 500 mcg PO DAILY RF: 0 allopurinol 300 mg tablet 300 mg PO DAILY RF: 0 insulin aspart U-100 [Novolog Flexpen U-100 Insulin] 100 unit/mL (3 mL) insulin pen See Rx Instructions unit .ROUTE .COMPLEX RF: 0 pregabalin 75 mg Capsule 75 mg PO BID RF: 0 Fish Oil 500 mg Capsule 500 mg PO DAILY RF: 0 Victoza 3-Toby 0.6 mg/0.1 mL (18 mg/3 mL) pen injector 1.8 mg subcut DAILY RF: 0 magnesium oxide 400 mg magnesium Tablet 400 mg PO DAILY RF: 0 acetaminophen 325 mg capsule 650 mg PO Q6H PRN (Reason: pain) Qty: 20 RF: 0 lidocaine [Lidoderm] 5 % adhesive patch,medicated 1 patch topical DAILY Qty: 15 RF: 0 cyclobenzaprine 5 mg tablet 5 mg PO Q8H PRN (Reason: muscle spasm) Qty: 10 RF: 0 oxycodone 5 mg capsule 5 mg PO BID PRN (Reason: pain) Qty: 5 RF: 0
[2020-06-07 01:53] LABS: Basophils Percent Auto 0.3 % (0-2); Eosinophils Absolute Auto 0.5 X10*3/uL (0.0-0.4); Eosinophils Percent Auto 5.8 % (0-4); Hematocrit 37.9 % (37-47); Hemoglobin 12.2 g/dl (12.0-16.0); Imm Gran Abs Auto 0.06 X10*3/uL (0.00-0.03); Imm Gran Pct Auto 0.7 % (0.0-0.4); Lymphocytes Percent Auto 33.2 % (20-40); MANUAL DIFF FLAG NO; Mean Corpuscular HGB Conc 32.2 g/dl (31.0-35.0); Mean Corpuscular Hemoglobin 30.6 pg (27.0-33.0); Monocytes Absolute Auto 0.9 X10*3/uL (0.1-1.2); Monocytes Percent Auto 9.4 % (2-11); Neutrophils Absolute Auto 4.6 X10*3/uL (2.0-8.3); Neutrophils Percent Auto 50.6 % (45-73); Platelet Count 240 X10*3/uL (160-400); Red Blood Count 3.99 X10*6/uL (4.20-5.50); Red Cell Distribution Width 14.5 % (11.0-16.0); White Blood Count 9.1 X10*3/uL (4.8-10.8)
[2020-06-07 02:19] LABS: Alanine Aminotransferase 18 U/L (0-31); Albumin Level 3.6 g/dL (3.5-5.0); Alkaline Phosphatase 99 U/L (39-117); Anion Gap 10 (12-20); Aspartate Amino Transferase 21 U/L (5-31); Bilirubin Direct 0.2 mg/dL (0.0-0.5); Bilirubin Total 0.5 mg/dL (0.0-1.0); Blood Urea Nitrogen 23 mg/dL (9-16); Calcium 8.8 mg/dL (8.4-10.2); Carbon Dioxide 34 mmol/L (22-29); Chloride 96 mmol/L (96-108); Creatinine Clr Calc Pharmacy 32.7; Estimated Glomerular Filt Rate 35; Glucose Random 62 mg/dL (60-115); Potassium 3.5 mmol/l (3.3-5.1); Sodium 136 mmol/L (135-145); Total Protein 5.8 g/dL (6.5-8.0)
[2020-06-07 02:27] VITALS: BP 153/59; PULSE 85; RESP 16; O2SAT 95
[2020-06-07] MEDS: 0.9 % Sodium Chloride 1,000 ML 999 ML IVCONT (03:35)
[2020-06-07] MEDS: Acetaminophen 325 MG TABLET 650 MG PO (04:25)
[2020-06-07 05:48] LABS: Glucose Urine UA NEG (NEG); Leukocyte Esterase Urine 1+ (NEG); Nitrite Urine POS (NEG); PH 6.5 (5.0-8.0); Urine Blood NEG (NEG); Urine Ketones NEG (NEG); Urine Protein NEG (NEG-TRACE)
[2020-06-07 05:50] LABS: Appearance Urine HAZY; Color Urine STRAW
[2020-06-07 06:10] LABS: Bacteria Urine 2+ /LPF; RBC Urine 0-2 /HPF (0); Squamous Epithelial Cell Urine 2+ /LPF
--- NOTE | 2020-06-07 07:05 | PC.NURSE ---
pt appears to be sleeping in stretcher at this time, rr even/unlabored. per previous shift rn, pt to be seen by case mgmt this morning. breakfast tray at bedside
--- NOTE | 2020-06-07 07:45 | PC.NURSE ---
phys therapy here to assess pt, ambulating w slow steady gait using walker in hallways.
[2020-06-07 07:55] VITALS: BP 153/59; PULSE 85; O2SAT 95
[2020-06-07] MEDS: traMADoL HCL 50 MG TABLET PO ×2 (08:38→12:38)
--- NOTE | 2020-06-07 10:16 | MHC.CM.ED ---
Received case management consult overnight. Patient came to ER after a fall. Physical therapy eval completed. Short term rehab is recommended. Met with patient. Patient has been to [facility] in the past. Patient does not want to return there. Patient wants to speak to her daughter about rehab choices. T/w spoke with Rosemarie via telephone. Rosemarie is requesting referral to [facility]. Referral made via allscripts. Continue to monitor for d/c needs.
[2020-06-07] MEDS: oxyCODONE HCl Immed Release 5 MG TABLET PO (17:50)
--- NOTE | 2020-06-07 20:20 | PC.NURSE ---
Pt OOB ambulating to the bathroom with 1 assist. Pt requesting PO intake, provided with food/drink by collection systems technician.
--- NOTE | 2020-06-07 20:30 | PC.NURSE ---
This RN contacting the lab regarding order for BMP as BMP had already been resulted several hours prior. Per lab, duplicate order, lab stated all orders are resulted, just waiting on the Covid.
[2020-06-07 21:42] VITALS: BP 129/57; PULSE 92; RESP 20; O2SAT 92
--- NOTE | 2020-06-07 21:50 | PC.NURSE ---
This RN at bedside providing pt with a complete bed change. Pt requesting warm blanks, milk and water, provided with all requests. Pt assisted back into bed in POC, watching TV, aware of plan to transfer to SNF tomorrow.
[2020-06-07] MEDS: LORazepam 1 MG TABLET 2 MG PO (23:26)
--- NOTE | 2020-06-07 23:55 | PC.NURSE ---
Pt ringing call thorn[place] repeatedly, pt remains uncomfortable and anxious despite frequent repositioning. Pt transferred into recliner but reports little relief. Pt awaiting midnight pain medication. Continue to monitor.
[2020-06-08] VITALS (9 sets, daily range): BP systolic 121–153; BP diastolic 57–71; PULSE 77–93; RESP 16–20; O2SAT 93–97
[2020-06-08] MEDS: oxyCODONE HCl Immed Release 5 MG TABLET PO ×2 (00:04→12:09)
--- NOTE | 2020-06-08 01:09 | PC.NURSE ---
Pt resting in bed in NAD at this time, visible chest rise noted. Continue to monitor.
--- NOTE | 2020-06-08 03:19 | PC.NURSE ---
This RN looking further into pending BMP that had been discussed earlier in the night with the lab, this RN considering the possibility of being a repeat BMP due to elevated BUN/CR. This RN obtain repeat BMP and Covid as Covid had not been previously obtained by day shift RN. Awaiting results.
[2020-06-08 03:44] LABS: Anion Gap 11 (12-20); Blood Urea Nitrogen 16 mg/dL (9-16); Calcium 8.9 mg/dL (8.4-10.2); Carbon Dioxide 29 mmol/L (22-29); Chloride 106 mmol/L (96-108); Creatinine Clr Calc Pharmacy 47.8; Estimated Glomerular Filt Rate 55; Glucose Random 79 mg/dL (60-115); Potassium 3.9 mmol/l (3.3-5.1); Sodium 142 mmol/L (135-145)
--- NOTE | 2020-06-08 03:51 | PC.NURSE ---
Pt requesting to be repositioned, assisted OOB and into wheelchair per request. VSS. Continue to monitor.
[2020-06-08 04:26] LABS: SARS COV2 PCR INHOUSE NEGATIVE (Negative)
--- NOTE | 2020-06-08 05:55 | PC.NURSE ---
Pt asleep in wheelchair at this time, RR 16/min, visible chest rise noted. Continue to monitor.
--- NOTE | 2020-06-08 06:07 | PC.NURSE ---
Pt found hunched over asleep in wheelchair. This RN offering to assist pt back into bed into POC, pt refusing at this time, states she is more comfortable in the wheelchair. VSS. Continue to monitor.
--- NOTE | 2020-06-08 08:29 | PC.NURSE ---
PT SLEEPING, AWAITING INSURANCE AUTH FOR [facility] SPLINT TO RIGHT FA, GOOD COLOR TO DISTAL HAND. VITALS STABLE
--- NOTE | 2020-06-08 08:46 | MHC.CM.ED ---
Patient remains in ER. Covid screen is negative. Received message from Katelyn at [facility] that they won't approve acute rehab level of care. They will authorize fdc level of care. Will reach out to patient's daughter for fdc facility choices. Continue to monitor for d/c needs.
--- NOTE | 2020-06-08 09:54 | MHC.CM.ED ---
Spoke with patient's daughter, Rosemarie via telephone at [phone]. Explained [facility] will only authorize senior living level of care. Referral made to [facility] at Rosemarie's request. Continue to monitor for d/c needs.
--- NOTE | 2020-06-08 10:33 | MHC.CM.ED ---
[facility] is able to offer a bed. They are in the process of obtaining insurance auth. Continue to monitor for d/c needs.
--- NOTE | 2020-06-08 13:32 | PC.NURSE ---
Pt awoke and stated pain is unchanged, pt repositioned into wheelchair per request and table given with lunch provided.
--- NOTE | 2020-06-08 13:37 | PC.NURSE ---
Pharmacy called x2. insulin in chart without all dosing instructions, and pt reports only taking ssi coverage in am. also victoza on pts chart, no full instructions and not formulary. Pharmacy to assess
--- NOTE | 2020-06-08 14:30 | PC.NURSE ---
Pain level decreased to 8/10 after in wheelchair. Eating lunch, tolerating well. Spoke to daughter Rosemarie again, asked for ortho to assess pt while in ed as f/u appt was yesterday and pt was in ed. Ludivina MORALES notified. [facility] to not accept pt d/t insurance, CM to inquire about other options with family
--- NOTE | 2020-06-08 15:16 | MHC.CM.ED ---
pt has been accepted and auth given by insurer. she will [place] [facility] [place] at 4 [place]. the dariel , rn and junior legal secretary in the e.d. are aware of these dc details. cm to cont. to follow.
--- NOTE | 2020-06-08 16:06 | PC.NURSE ---
report to hebert elliott
== END 2020-06-08 16:14 | disposition skilled nursing facility (03) ==
PROVIDERS: Physician Assistant; Emergency Provider Emergency Medicine; PCP Internal Medicine
DX: R29.6 Repeated falls (principal); E11.9 Type 2 diabetes mellitus without complications; I10 Essential (primary) hypertension; Z79.899 Other long term (current) drug therapy; Z20.828 Contact with and (suspected) exposure to other viral communicable diseases
CPT/HCPCS: 36415; 80048; 80076; 81001; 85025; 87086; 87635; 97161; 97165; 99284; 99285

== ENCOUNTER 2020-06-29 10:12 | Outpatient (REF) | payer MEDICARE, SELFPAY ==
--- NOTE | 2020-06-29 10:44 | XR_ITS ---
EXAMINATION: XR WRIST, RIGHT CLINICAL INFORMATION: Fracture distal right radius. Follow-up. COMPARISON: Radiographs right breast 05/30/2020, 05/18/2020 TECHNIQUE: PA, lateral, and oblique views of the right wrist. FINDINGS: There is increased callus formation around the distal radial fracture.. Fracture line still visible. Alignment is unchanged. Again, there is slight dorsal angulation distal radioarticular surface. The ulnar variance is neutral. There is no acute fracture or dislocation. There is likely small subchondral cyst radial side lunate. Osteoarthritic changes again noted first carpometacarpal joint, interphalangeal joint thumb, and MCP joints, greatest first and second. XR/XR wrist RT min 3V IMPRESSION: Healing fracture distal right radius. No change in alignment.
== END 2020-06-29 10:13 | disposition home or self-care (01) ==
LOC: HO.HOSX 10:12
PROVIDERS: Visit Provider Physician Assistant
DX: S52.501D Unspecified fracture of the lower end of right radius, subsequent encounter for closed fracture with routine healing (principal)
CPT/HCPCS: 73110; 99212

== ENCOUNTER 2021-03-20 10:24 | Inpatient (IN) | payer MEDICARE, SELFPAY ==
--- NOTE | ~2021-03-20 | XR_ITS ---
EXAMINATION: XR FOOT, RIGHT CLINICAL INFORMATION: Cellulitis. Rule out osteomyelitis. COMPARISON: None TECHNIQUE: AP, lateral, and oblique views of the right foot. FINDINGS: Bone alignment is normal. No fracture or dislocation is seen. There is mild arthritis at the first IP and MTP joints. There are calcaneal spurs. No evidence of osteomyelitis seen. No abnormal air collection or soft tissue foreign body is seen. XR/XR foot RT 2V IMPRESSION: Arthritis of the great toe. No evidence of osteomyelitis.
--- NOTE | ~2021-03-20 | XR_ITS ---
EXAMINATION: XR CHEST CLINICAL INFORMATION: Cough COMPARISON: Previous chest x-ray most recent July 2019 TECHNIQUE: Frontal view of the chest was obtained. FINDINGS: The lung volumes are low. The cardiac silhouette does not appear enlarged. There are increased central bronchovascular markings. This may be due to low lung volumes. The lungs are otherwise clear. There are degenerative changes of the spine and mild scoliosis. There is arthritis at the right shoulder joint. There are postsurgical changes of the cervical spine. XR/XR chest 1V IMPRESSION: Low lung volumes. Prominent central bronchovascular markings. This may be related to low lung volumes.
[2021-03-20 11:33] VITALS: BP 129/84; PULSE 80; RESP 18; TEMP 36.6; O2SAT 93; BMI 30.1
[2021-03-20 15:37] VITALS: BP 161/43; PULSE 97; RESP 15; TEMP 36.6; O2SAT 95
--- NOTE | 2021-03-20 15:51 | ED_ITS ---
HPI - General Adult General Chief complaint: Extremity Problem Stated complaint: rt foot infection Time Seen by Provider: 03/20/21 15:41 Source: patient and family (Daughter) Mode of arrival: ambulatory Limitations: no limitations History of Present Illness HPI narrative: 70-year-old female came in for evaluation of her right foot cellulitis. Patient has been following with the wound clinic patient finished course of doxycycline without improvement and worsening of the infection and the right foot, patient declined any fever chills, but worsening of the pain of the right foot unable to bear weight on it and ambulate. Related Data Home Medications Medication Instructions Recorded Confirmed alendronate 70 mg PO QWEEK 05/27/20 03/20/21 allopurinol 300 mg PO DAILY 05/27/20 03/20/21 cyanocobalamin (vitamin B-12) 500 mcg PO DAILY 05/27/20 03/20/21 furosemide 40 mg PO BID 05/27/20 03/20/21 liraglutide [Victoza 3-Toby] 1.8 mg SUBCUT DAILY 05/27/20 03/20/21 magnesium oxide 400 mg PO DAILY 05/27/20 03/20/21 melatonin 3 mg PO BEDTIME PRN 05/27/20 03/20/21 multivitamin 1 tab PO DAILY 05/27/20 06/07/20 omega-3 fatty acids [Fish Oil] 500 mg PO DAILY 05/27/20 03/20/21 pregabalin 150 mg PO BID 05/27/20 03/20/21 simvastatin 10 mg PO BEDTIME 05/27/20 03/20/21 spironolactone 100 mg PO DAILY 05/27/20 03/20/21 tramadol 50 mg PO Q6H PRN 05/27/20 03/20/21 bupropion HCl 300 mg PO QAM 03/20/21 03/20/21 cholecalciferol (vitamin D3) 25 mcg PO DAILY 03/20/21 03/20/21 sertraline 50 mg PO DAILY 03/20/21 03/20/21 Previous Rx's Medication Instructions Recorded acetaminophen 650 mg PO Q6H PRN #20 cap 05/30/20 arm brace #1 ea 06/29/20 Allergies Allergy/AdvReac Type Severity Reaction Status Date / Time zolpidem [From AMBIEN] Allergy Severe SLEEP Verified 03/20/21 11:33 WALKING lactic acid [From LAC-HYDRIN] Allergy Intermediate RASH Verified 03/20/21 11:33 latex [Latex] Allergy Intermediate HIVES Verified 03/20/21 11:33 varenicline [From CHANTIX] Allergy Intermediate RASH Verified 03/20/21 11:33 From Benadryl Allergy Intermediate HIVES Uncoded 05/11/20 16:08 Review of Systems Review of Systems: All other systems are reviewed and are negative Constitutional: Reports as per HPI and Reports no additional constitutional complaints Eyes: Reports as per HPI and Reports no additional eye complaints Reports system reviewed and no additional complaints, except as documented Cardiovascular: Reports as per HPI and Reports no additional cardiovascular complaints Respiratory: Reports as per HPI and Reports no additional respiratory complaints Gastrointestinal: Reports as per HPI and Reports no additional gastrointestinal complaints Genitourinary: Reports no additional female genitourinary complaints Musculoskeletal: Reports no additional musculoskeletal complaints Skin/Breast: Reports system reviewed and no additional complaints, except as doc u Psychiatric: Reports no additional psychiatric complaints Endocrine: Reports no additional endocrine complaints Hematologic/Lymphatic: Reports no additional hematologic/lymphatic complaints Allergic/Immunologic: Reports no additional allergic/immunologic complaints Reports system reviewed and no additional complaints, except as documented and Reports Abnormal speech present [facility] Past Medical History Medical History Anxiety Carpal tunnel syndrome Cellulitis Chronic back pain CKD (chronic kidney disease) Depression Diabetes Diabetic neuropathy HTN (hypertension) Hyperlipidemia Osteoporosis Psoriasis Spondylosis Venous stasis dermatitis Surgical History H/O section S/P cervical spinal fusion Social History Social History Alcohol intake: never Patient Tobacco Use Status: Former Tobacco user Use of substances other than those prescribed or required for medical reasons: No Advance Directives: No Advance Directives Information Provided: Yes Physical Exam Vital Signs: Vital Signs: Last Vital Signs Temp 97.8 F 03/20/21 15:37 Pulse 97 03/20/21 15:37 Resp 15 03/20/21 15:37 BP 161/43 H 03/20/21 15:37 Pulse Ox 95 03/20/21 15:37 Body Mass Index 30.1 Vital signs have been reviewed as appeared to be correct. Blood pressure normal. Heart rate normal. Respiration rate normal. Temperature normal. Oxygen saturation normal. Appearance: Alert. Oriented X3. No acute distress. Head: Normal external exam. Normocephalic. Atraumatic. No Chambers signs noted. No raccoon eyes noted Eyes: PERRLA. EOMI. Conjunctiva and sclera normal. Eyelids normal. ENT: TM's Normal. Pharynx normal. Uvula midline. Moist mucous membranes. No trismus noted. No drooling noted. No muffled voice noted. Neck: Normal inspection. Neck supple. FROM. No adenopathy. Thyroid Normal. No meningeal signs. No neck mass noted. CVS: Normal heart rate and rhythm. Heart sound normal. No murmurs noted. Pulses normal throughout. Respiratory: No respiratory distress. Painless inspiration. Breath sounds normal. No wheezes/rales/rhonchi noted. Chest nontender. No accessory muscle usage noted or decreased air movement noted. Abdomen: Soft and nontender. Bowel sounds normal in all 4 quadrants. No distention noted. No organomegaly noted. No visible injury noted. Back: No CVA tenderness. Full range of motion noted. Skin: Skin warm and dry. Normal skin color. Normal skin turgor. No rashes /lesions/lacerations noted. Extremities: Area of redness, hotness, tenderness about 3 x 5 cm on the medial aspect of the medial arch of the right foot extending to both palmar and the sole of the right foot. Neurovascularly intact. Neuro: Oriented X 3. No motor deficit. No sensory deficit. Reflexes normal. Course Course Course Narrative: 70-year-old female came in with a right foot cellulitis not responding to oral doxycycline. No sirs criteria, will admit for IV antibiotic. Medical Decision Making Lab Data Lab results reviewed: Yes I reviewed the patient's lab results. Result diagrams: 03/20/21 16:09 03/20/21 16:09 Labs: Lab Results 03/20/21 03/20/21 03/20/21 Range/Units 16:09 16:09 16:09 WBC 7.2 (4.8-10.8) X10*3/uL RBC 4.32 (4.20-5.50) X10*6/uL Hgb 13.1 (12.0-16.0) g/dl Hct 40.5 (37-47) % MCV 93.8 (80-98) fL MCH 30.3 (27.0-33.0) pg MCHC 32.3 (31.0-35.0) g/dl RDW 15.7 (11.0-16.0) % Plt Count 199 (160-400) X10*3/uL MPV 11.7 (9.4-12.3) fL Immature Gran % (Auto) 0.3 (0.0-0.4) % Neut % (Auto) 56.3 (45-73) % Lymph % (Auto) 25.9 (20-40) % [place] % (Auto) 10.0 (2-11) % Eos % (Auto) 6.9 H (0-4) % Baso % (Auto) 0.6 (0-2) % Lymph # (Auto) 1.9 (1.2-4.9) X10*3/uL [place] # (Auto) 0.7 (0.1-1.2) X10*3/uL Eos # (Auto) 0.5 H (0.0-0.4) X10*3/uL Baso # (Auto) 0.0 (0.0-0.2) X10*3/uL Abs Immat Gran (auto) 0.02 (0.00-0.03) X10*3/uL Absolute Neuts (auto) 4.1 (2.0-8.3) X10*3/uL Absolute Nucleated RBC 0.000 (0.0-0.012) X10*3/uL Nucleated RBC % (auto) 0.0 (0.0-0.2) /100WBC Sodium 141 (135-145) mmol/L Potassium 5.1 (3.3-5.1) mmol/L Chloride 104 (96-108) mmol/L Carbon Dioxide 27 (22-29) mmol/L Anion Gap 15 (12-20) BUN 20 H (9-16) mg/dL Creatinine 1.10 (0.5-1.4) mg/dL Estim Creat Clear Calc 45.4 Estimated GFR 49 Random Glucose 96 (60-115) mg/dL Lactic Acid 1.0 (0.5-2.0) mmol/L Calcium 9.4 (8.4-10.2) mg/dL COVID-19 ([facility]) (Negative) COVID-19 Clin [facility] 03/20/21 Range/Units 16:27 WBC (4.8-10.8) X10*3/uL RBC (4.20-5.50) X10*6/uL Hgb (12.0-16.0) g/dl Hct (37-47) % MCV (80-98) fL MCH (27.0-33.0) pg MCHC (31.0-35.0) g/dl RDW (11.0-16.0) % Plt Count (160-400) X10*3/uL MPV (9.4-12.3) fL Immature Gran % (Auto) (0.0-0.4) % Neut % (Auto) (45-73) % Lymph % (Auto) (20-40) % [place] % (Auto) (2-11) % Eos % (Auto) (0-4) % Baso % (Auto) (0-2) % Lymph # (Auto) (1.2-4.9) X10*3/uL [place] # (Auto) (0.1-1.2) X10*3/uL Eos # (Auto) (0.0-0.4) X10*3/uL Baso # (Auto) (0.0-0.2) X10*3/uL Abs Immat Gran (auto) (0.00-0.03) X10*3/uL Absolute Neuts (auto) (2.0-8.3) X10*3/uL Absolute Nucleated RBC (0.0-0.012) X10*3/uL Nucleated RBC % (auto) (0.0-0.2) /100WBC Sodium (135-145) mmol/L Potassium (3.3-5.1) mmol/L Chloride (96-108) mmol/L Carbon Dioxide (22-29) mmol/L Anion Gap (12-20) BUN (9-16) mg/dL Creatinine (0.5-1.4) mg/dL Estim Creat Clear Calc Estimated GFR Random Glucose (60-115) mg/dL Lactic Acid (0.5-2.0) mmol/L Calcium (8.4-10.2) mg/dL COVID-19 ([facility]) Negative (Negative) COVID-19 Clin Com See Note Imaging Data Chest x-ray: Radiologist's impression: Low lung volumes. Prominent central bron chovascular markings. This may be related to low lung volumes. Right foot x-ray: Radiologist's impression: Arthritis of the great toe. No evidence of osteomyelitis. Discharge Plan Discharge Clinical Impression: Cellulitis Patient Disposition: Admitted As Inpatient Prescriptions: No Action tramadol 50 mg tablet 50 mg PO Q6H PRN (Reason: pain) RF: 0 multivitamin Tablet 1 tab PO DAILY RF: 0 furosemide 40 mg tablet 40 mg PO BID RF: 0 alendronate 70 mg tablet 70 mg PO QWEEK RF: 0 spironolactone 100 mg tablet 100 mg PO DAILY RF: 0 simvastatin 10 mg tablet 10 mg PO BEDTIME RF: 0 melatonin 3 mg tablet 3 mg PO BEDTIME PRN (Reason: insomnia) RF: 0 cyanocobalamin (vitamin B-12) 500 mcg tablet 500 mcg PO DAILY RF: 0 allopurinol 300 mg tablet 300 mg PO DAILY RF: 0 pregabalin 75 mg Capsule 150 mg PO BID RF: 0 Fish Oil 500 mg Capsule 500 mg PO DAILY RF: 0 Victoza 3-Toby 0.6 mg/0.1 mL (18 mg/3 mL) pen injector 1.8 mg subcut DAILY RF: 0 magnesium oxide 400 mg magnesium Tablet 400 mg PO DAILY RF: 0 acetaminophen 325 mg capsule 650 mg PO Q6H PRN (Reason: pain) Qty: 20 RF: 0 sertraline 50 mg Tablet 50 mg PO DAILY RF: 0 cholecalciferol (vitamin D3) 25 mcg (1,000 unit) Capsule 25 mcg PO DAILY RF: 0 bupropion HCl 300 mg Tablet Extended Release 24 Hr 300 mg PO QAM RF: 0 (DME) Wrist Brace Misc See Rx Instructions .MEDSUPPLY Qty: 1 RF: 0
[2021-03-20 16:17] LABS: MANUAL DIFF FLAG NO
[2021-03-20 16:19] LABS: Basophils Percent Auto 0.6 % (0-2); Eosinophils Absolute Auto 0.5 X10*3/uL (0.0-0.4); Eosinophils Percent Auto 6.9 % (0-4); Hematocrit 40.5 % (37-47); Hemoglobin 13.1 g/dl (12.0-16.0); Imm Gran Abs Auto 0.02 X10*3/uL (0.00-0.03); Imm Gran Pct Auto 0.3 % (0.0-0.4); Lymphocytes Absolute Auto 1.9 X10*3/uL (1.2-4.9); Lymphocytes Percent Auto 25.9 % (20-40); Mean Corpuscular HGB Conc 32.3 g/dl (31.0-35.0); Mean Corpuscular Hemoglobin 30.3 pg (27.0-33.0); Mean Corpuscular Volume 93.8 fL (80-98); Mean Platelet Volume 11.7 fL (9.4-12.3); Monocytes Absolute Auto 0.7 X10*3/uL (0.1-1.2); Neutrophils Absolute Auto 4.1 X10*3/uL (2.0-8.3); Neutrophils Percent Auto 56.3 % (45-73); Platelet Count 199 X10*3/uL (160-400); Red Blood Count 4.32 X10*6/uL (4.20-5.50); Red Cell Distribution Width 15.7 % (11.0-16.0); White Blood Count 7.2 X10*3/uL (4.8-10.8)
[2021-03-20] MEDS: 0.9 % Sodium Chloride 1,000 ML 999 ML IVCONT (16:45)
[2021-03-20] MEDS: Piperacillin Sodium/Tazobactam 3.375 GM in 0.9 % Sodium Chloride 50 ML IV (16:45)
[2021-03-20 16:49] LABS: Anion Gap 15 (12-20); Blood Urea Nitrogen 20 mg/dL (9-16); Calcium 9.4 mg/dL (8.4-10.2); Carbon Dioxide 27 mmol/L (22-29); Chloride 104 mmol/L (96-108); Creatinine Clr Calc Pharmacy 45.4; Estimated Glomerular Filt Rate 49; Glucose Random 96 mg/dL (60-115); Potassium 5.1 mmol/L (3.3-5.1); Sodium 141 mmol/L (135-145)
--- NOTE | 2021-03-20 16:49 | PC.NURSE ---
ABX hung and admin per mar, fluids hung and running wo. NAD, resp reg and even,
[2021-03-20 16:51] LABS: COVID-19 Test Negative (Negative)
--- NOTE | 2021-03-20 17:40 | P.HPHOSP_ITS ---
History of Present Illness Date of Service: 03/20/21 Chief Complaint: plantar erythema a pain 70F presented with plantar erythema and pain. patient has chornic venous stasis and reports normally having some redness in her feet, however, states over the past week swelling and redness has worsened. this has been associated with worsening pain, making it difficult to walk. she was treated with po doxy for several days with no improvement. patient denies fever, chills. Review of Systems Review of Systems: Constitutional: Denies fever, denies Chills Eyes: denies blurry vision ENT: denies sore throat CVS: denies chest pain Respiratory: Denies dyspnea GI: no abdominal pain : denies dysuria MSK: denies neck pain Skin: see hpi Neuro: denies specific motor weakness Psych: denies suicidal ideation Endocrine: denies heat/cold intolerance Hematologic: denies easy bleeding Allergy: denies hives [facility] Medical History Anxiety Carpal tunnel syndrome Cellulitis Chronic back pain CKD (chronic kidney disease) Depression Diabetes Diabetic neuropathy HTN (hypertension) Hyperlipidemia Osteoporosis Psoriasis Spondylosis Venous stasis dermatitis Family history: reviewed and not pertinent Surgical History H/O section S/P cervical spinal fusion Social History Alcohol intake: never Patient Tobacco Use Status: Former Tobacco user Use of substances other than those prescribed or required for medical reasons: No Advance Directives: No Advance Directives Information Provided: Yes Meds Allergies Allergy/AdvReac Type Severity Reaction Status Date / Time zolpidem [From AMBIEN] Allergy Severe SLEEP Verified 03/20/21 11:33 WALKING lactic acid [From LAC-HYDRIN] Allergy Intermediate RASH Verified 03/20/21 11:33 latex [Latex] Allergy Intermediate HIVES Verified 03/20/21 11:33 varenicline [From CHANTIX] Allergy Intermediate RASH Verified 03/20/21 11:33 From Benadryl Allergy Intermediate HIVES Uncoded 05/11/20 16:08 Home Medications Medication Instructions Recorded Confirmed Last Taken Type alendronate 70 mg PO QWEEK 05/27/20 03/20/21 Unknown History allopurinol 300 mg PO DAILY 05/27/20 03/20/21 Unknown History cyanocobalamin (vitamin B-12) 500 mcg PO DAILY 05/27/20 03/20/21 Unknown History furosemide 40 mg PO BID 05/27/20 03/20/21 Unknown History liraglutide [Victoza 3-Toby] 1.8 mg SUBCUT DAILY 05/27/20 03/20/21 Unknown History magnesium oxide 400 mg PO DAILY 05/27/20 03/20/21 Unknown History melatonin 3 mg PO BEDTIME PRN 05/27/20 03/20/21 Unknown History multivitamin 1 tab PO DAILY 05/27/20 06/07/20 Unknown History omega-3 fatty acids [Fish Oil] 500 mg PO DAILY 05/27/20 03/20/21 Unknown History pregabalin 150 mg PO BID 05/27/20 03/20/21 Unknown History simvastatin 10 mg PO BEDTIME 05/27/20 03/20/21 Unknown History spironolactone 100 mg PO DAILY 05/27/20 03/20/21 Unknown History tramadol 50 mg PO Q6H PRN 05/27/20 03/20/21 Unknown History bupropion HCl 300 mg PO QAM 03/20/21 03/20/21 Unknown History cholecalciferol (vitamin D3) 25 mcg PO DAILY 03/20/21 03/20/21 Unknown History sertraline 50 mg PO DAILY 03/20/21 03/20/21 Unknown History Physical Exam Vital Signs and Narrative: Vital Signs: Last Vital Signs Temp 97.8 F 03/20/21 15:37 Pulse 97 03/20/21 15:37 Resp 15 03/20/21 15:37 BP 161/43 H 03/20/21 15:37 Pulse Ox 95 03/20/21 15:37 Body Mass Index 30.1 General: no acute distress HEENT: atraumatic Neck: normal to visual inspection CVS: S1, S2, RRR Resp: CTA bilateral Chest: non tender GI: soft, non tender, distended but not tight, reports distension as chronic : no CVA tenderness Skin: bilateral plantar erytehma, tender Extremities: 2-3+ bilateral le edema Neuro: Oriented X3, grossly intact Psych: impaired inisght Results Labs CBC and Chem 7: 03/20/21 16:09 03/20/21 16:09 Labs: Laboratory Results - last 24 hr 03/20/21 03/20/21 03/20/21 16:09 16:09 16:09 MCV 93.8 MCH 30.3 MCHC 32.3 RDW 15.7 Plt Count 199 MPV 11.7 Immature Gran % (Auto) 0.3 Neut % (Auto) 56.3 Lymph % (Auto) 25.9 [place] % (Auto) 10.0 Eos % (Auto) 6.9 H Baso % (Auto) 0.6 Lymph # (Auto) 1.9 [place] # (Auto) 0.7 Eos # (Auto) 0.5 H Baso # (Auto) 0.0 Abs Immat Gran (auto) 0.02 Absolute Neuts (auto) 4.1 Absolute Nucleated RBC 0.000 Nucleated RBC % (auto) 0.0 Anion Gap 15 Estim Creat Clear Calc 45.4 Estimated GFR 49 Random Glucose 96 Lactic Acid 1.0 Calcium 9.4 COVID-19 ([facility]) COVID-19 Clin Com 03/20/21 16:27 MCV MCH MCHC RDW Plt Count MPV Immature Gran % (Auto) Neut % (Auto) Lymph % (Auto) [place] % (Auto) Eos % (Auto) Baso % (Auto) Lymph # (Auto) [place] # (Auto) Eos # (Auto) Baso # (Auto) Abs Immat Gran (auto) Absolute Neuts (auto) Absolute Nucleated RBC Nucleated RBC % (auto) Anion Gap Estim Creat Clear Calc Estimated GFR Random Glucose Lactic Acid Calcium COVID-19 ([facility]) Negative COVID-19 Clin Com See Note Imaging Radiologist's Impressions: Impressions Chest X-Ray 03/20/21 15:47 IMPRESSION: Low lung volumes. Prominent central bronchovascular markings. This may be related to low lung volumes. Foot X-Ray 03/20/21 15:47 IMPRESSION: Arthritis of the great toe. No evidence of osteomyelitis. Assessment and Plan (1) Abscess or cellulitis of foot: Status: Acute 70F presented with bilateral plantar erythema and pain and swelling bilateral plantar erythema and pain and swelling possible superimposed bacterial cellulitis likely mostly underlying chronic condition such as venous stasis, however, distribution of erythema is atypical will treat with iv vancomycin topical steroids, compressive therapy, iv lasix DM insulin hld statin anxiety wellbutrin gout allopurinol vte prophylaxis - low dose xarelto Quality Stroke Does the patient have a stroke diagnosis?: No VTE Prior VTE?: No VTE Risk Level:: Medical - moderate - high VTE Device Contraindication: Treatment Not Indicated VTE Drug Contraindication: N/A - Med Ordered
[2021-03-20] MEDS: vancomycin HCL 1,250 MG in 0.9 % Sodium Chloride 250 ML 166.67 MG IV (18:30)
--- NOTE | 2021-03-20 19:17 | PC.NURSE ---
Attempt to give report to the floor, will try again shortly. Yoel wraps placed to bilat lower extremities in figure 8 pattern.
[2021-03-20 21:45] VITALS: BP 159/82; PULSE 94; RESP 16; TEMP 36.4; O2SAT 95
[2021-03-20 22:00] VITALS: BMI 31.1
[2021-03-20] MEDS: Atorvastatin Calcium 10 MG TABLET PO (22:19)
[2021-03-20] MEDS: buPROPion HCl XL 300 MG TAB.ER.24H PO (22:19)
[2021-03-20] MEDS: Melatonin 3 MG TABLET PO (22:19)
[2021-03-20] MEDS: Pregabalin 75 MG CAPSULE 150 MG PO (22:20)
[2021-03-20] MEDS: Furosemide 20 MG/2 ML VIAL IVPUSH (22:20)
[2021-03-20] MEDS: traMADoL HCL 50 MG TABLET PO (23:33)
[2021-03-20] MEDS: 0.9 % Sodium Chloride Flush 3 ML SYRINGE IVFLUSH (23:38)
[2021-03-21] VITALS: BP 126/54; PULSE 91; RESP 16; TEMP 36.9; O2SAT 94
[2021-03-21 00:29] LABS: Glucose, Whole Blood 84 mg/dL (60-115)
[2021-03-21 07:12] VITALS: BP 141/58; PULSE 93; RESP 17; TEMP 36.7; O2SAT 92
[2021-03-21 07:23] LABS: Hematocrit 38.9 % (37-47); Hemoglobin 12.4 g/dl (12.0-16.0); Mean Corpuscular HGB Conc 31.9 g/dl (31.0-35.0); Mean Corpuscular Hemoglobin 29.7 pg (27.0-33.0); Mean Corpuscular Volume 93.3 fL (80-98); Mean Platelet Volume 12.7 fL (9.4-12.3); Platelet Count 217 X10*3/uL (160-400); Red Blood Count 4.17 X10*6/uL (4.20-5.50); Red Cell Distribution Width 15.7 % (11.0-16.0); White Blood Count 7.8 X10*3/uL (4.8-10.8)
[2021-03-21 07:30] LABS: Glucose, Whole Blood 133 mg/dL (60-115)
[2021-03-21 07:48] LABS: Anion Gap 13 (12-20); Blood Urea Nitrogen 20 mg/dL (9-16); Carbon Dioxide 27 mmol/L (22-29); Creatinine Clr Calc Pharmacy 47.1; Estimated Glomerular Filt Rate 50
[2021-03-21 07:49] VITALS: BP 141/58; PULSE 93
[2021-03-21] MEDS: Pregabalin 75 MG CAPSULE 150 MG PO ×2 (07:49→21:04)
[2021-03-21] MEDS: Cyanocobalamin (Vitamin B-12) 500 MCG TABLET PO (07:49)
[2021-03-21] MEDS: Spironolactone 25 MG TABLET 100 MG PO (07:49)
[2021-03-21] MEDS: allopurinoL 300 MG TABLET PO (07:50)
[2021-03-21] MEDS: Sertraline HCL 50 MG TABLET PO (07:50)
[2021-03-21] MEDS: Furosemide 20 MG/2 ML VIAL IVPUSH ×2 (07:50→18:32)
[2021-03-21] MEDS: buPROPion HCl XL 300 MG TAB.ER.24H PO (07:50)
[2021-03-21] MEDS: Rivaroxaban 10 MG TABLET PO (07:50)
[2021-03-21] MEDS: 0.9 % Sodium Chloride Flush 3 ML SYRINGE IVFLUSH ×3 (07:50→21:05)
[2021-03-21] MEDS: Cholecalciferol (Vitamin D3) 25 MCG TABLET PO (07:50)
[2021-03-21] MEDS: Magnesium Oxide 400 MG TABLET PO (07:50)
[2021-03-21 08:27] LABS: Calcium 8.9 mg/dL (8.4-10.2); Chloride 105 mmol/L (96-108); Glucose Fasting 129 mg/dL (60-99); Potassium 4.4 mmol/L (3.3-5.1); Sodium 141 mmol/L (135-145)
[2021-03-21] MEDS: traMADoL HCL 50 MG TABLET PO (08:46)
[2021-03-21] MEDS: oxyCODONE HCl Immed Release 5 MG TABLET 2.5 MG PO ×2 (10:50→21:38)
[2021-03-21 11:20] LABS: Glucose, Whole Blood 184 mg/dL (60-115)
[2021-03-21 11:44] VITALS: BP 141/58; PULSE 93
[2021-03-21] MEDS: Insulin Lispro 100 UNIT/ML 3 ML VIAL SUBCUT ×2 (12:16→21:04)
[2021-03-21] MEDS: Triamcinolone Acet 0.5 % Oint 15 GM TUBE 1 APPL TOPICAL ×2 (12:17→14:35)
--- NOTE | 2021-03-21 12:47 | MHC.CM.PN ---
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 PT VERIFIES PCP AND HCP IS ON FILE FROM PREVIOUS VISIT. PER PT SHE DOES NOT WANT STR EVEN IF IT IS RECOMMENDED. D/C PLAN: HOME W/RESUMP OF [employer] & SPINNING ROOM WORKER, FAMILY FOR TRANSPORT PCP:ZENA DEL ROSARIO HCP: TAMARA GOVEA [phone] ALTERNATE: [phone]
--- NOTE | 2021-03-21 14:17 | P.PNIM_ITS ---
Subjective Subjective Date of Service: 03/21/21 Review of Systems the patient was seen and evaluated this morning Complaining of pain in her lower extremities mainly in the right foot feels the redness is improving Denies any fever, chills or shortness of breath No reported other overnight events. Systemic review: No fever, chills but reported increase baseline weakness No chest pain, palpitation No shortness of breath or coughing No abdominal pain, nausea or vomiting No urinary symptoms Lower extremity erythema improving but still painful Physical Exam Vital Signs: Vital Signs: Last Vital Signs Temp 98.1 F 03/21/21 07:12 Pulse 93 03/21/21 11:44 Resp 17 03/21/21 07:12 BP 141/58 H 03/21/21 11:44 Pulse Ox 92 03/21/21 07:12 Body Mass Index 31.1 Const: Other: Constitutional : Alert, oriented, distressed from pain Neck : Normal inspection, Supple Cardiovascular : RRR, S1 S2, trace bilateral lower extremity edema Respiratory : Good bilateral air entry, no crackles, wheezes or rhonchi Gastrointestinal: soft, lax, Normal bowel sounds, Non tender Skin : Warm/Dry, bilateral lower extremities and foot mild swelling and erythema but no drainage noticed Neurological : Alert & oriented x3, No focal deficit Objective Data Current Medications Generic Name Dose Route Start Last Admin Trade Name Farnaz PRN Reason Stop Dose Admin Acetaminophen 650 mg 03/20/21 17:36 Acetaminophen 325 Mg Tablet PO Q6H PRN pain Allopurinol 300 mg 03/21/21 09:00 03/21/21 07:50 Allopurinol 300 Mg Tablet PO 300 mg DAILY [facility] Administration Atorvastatin Calcium 10 mg 03/20/21 21:00 03/20/21 22:19 Atorvastatin Calcium 10 Mg Tablet PO 10 mg BEDTIME [facility] Administration Bupropion HCl 300 mg 03/20/21 22:15 03/21/21 07:50 Bupropion Hcl Xl 300 Mg Tab.Er.24h PO 300 mg DAILY [facility] Administration Cyanocobalamin 500 mcg 03/21/21 09:00 03/21/21 07:49 Cyanocobalamin (Vitamin B-12) 500 Mcg Tablet PO 500 mcg DAILY [facility] Administration Furosemide 20 mg 03/20/21 22:15 03/21/21 07:50 Furosemide 20 Mg/2 Ml Vial IVPUSH 20 mg BID@0900,1800 [facility] Administration Protocol Vancomycin HCl 1,250 mg/ 250 mls @ 166.667 mls/hr 03/20/21 19:00 03/20/21 21:40 Sodium Chloride IV Infused Q24H [facility] Infusion Insulin Human Lispro 0 unit 03/20/21 21:00 03/21/21 12:16 Insulin Lispro 100 Unit/Ml 3 Ml Vial SUBCUT 2 unit QIDACHS [facility] Administration Protocol Magnesium Oxide 400 mg 03/21/21 09:00 03/21/21 07:50 Magnesium Oxide 400 Mg Tablet PO 400 mg DAILY [facility] Administration Melatonin 3 mg 03/20/21 17:36 03/20/21 22:19 Melatonin 3 Mg Tablet PO 3 mg BEDTIME PRN Administration insomnia Oxycodone HCl 2.5 mg 03/21/21 09:44 03/21/21 10:50 Oxycodone Hcl Immed Release 5 Mg Tablet PO 2.5 mg Q6H PRN Administration pain Pharmacy Consult 1 each 03/20/21 17:36 Consult Rx Vancomycin Dosing MISCELLANE DAILY PRN Consult order Pregabalin 150 mg 03/20/21 21:00 03/21/21 07:49 Pregabalin 75 Mg Capsule PO 150 mg BID [facility] Administration Rivaroxaban 10 mg 03/21/21 09:00 03/21/21 07:50 Rivaroxaban 10 Mg Tablet PO 10 mg DAILY [facility] Administration Sertraline HCl 50 mg 03/21/21 09:00 03/21/21 07:50 Sertraline Hcl 50 Mg Tablet PO 50 mg DAILY [facility] Administration Sodium Chloride 3 ml 03/21/21 00:00 03/21/21 07:50 0.9 % Sodium Chloride Flush 3 Ml Syringe IVFLUSH 3 ml QSHIFT [facility] Administration Spironolactone 100 mg 03/21/21 09:00 03/21/21 07:49 Spironolactone 25 Mg Tablet PO 100 mg DAILY [facility] Administration Protocol Tramadol HCl 50 mg 03/20/21 17:36 03/21/21 08:46 Tramadol Hcl 50 Mg Tablet PO 50 mg Q6H PRN Administration pain Triamcinolone Acetonide 1 appl 03/21/21 10:35 03/21/21 12:17 Triamcinolone Acet 0.5 % Oint 15 Gm Tube TOPICAL 1 appl BID [facility] Administration Vitamin D 25 mcg 03/21/21 09:00 03/21/21 07:50 Cholecalciferol (Vitamin D3) 25 Mcg Tablet PO 25 mcg DAILY [facility] Administration Labs CBC & Chem 7: 03/21/21 06:10 03/21/21 06:10 Labs: Laboratory Results - last 24 hr 03/20/21 03/20/21 03/20/21 16:09 16:09 16:09 WBC 7.2 RBC 4.32 Hgb 13.1 Hct 40.5 MCV 93.8 MCH 30.3 MCHC 32.3 RDW 15.7 Plt Count 199 MPV 11.7 Immature Gran % (Auto) 0.3 Neut % (Auto) 56.3 Lymph % (Auto) 25.9 [place] % (Auto) 10.0 Eos % (Auto) 6.9 H Baso % (Auto) 0.6 Lymph # (Auto) 1.9 [place] # (Auto) 0.7 Eos # (Auto) 0.5 H Baso # (Auto) 0.0 Abs Immat Gran (auto) 0.02 Absolute Neuts (auto) 4.1 Absolute Nucleated RBC 0.000 Nucleated RBC % (auto) 0.0 Sodium 141 Potassium 5.1 Chloride 104 Carbon Dioxide 27 Anion Gap 15 BUN 20 H Creatinine 1.10 Estim Creat Clear Calc 45.4 Estimated GFR 49 POC Glucose Random Glucose 96 Fasting Glucose Lactic Acid 1.0 Calcium 9.4 Magnesium COVID-19 ([facility]) COVID-[facility] Com 03/20/21 03/20/21 03/21/21 16:27 21:55 06:10 WBC 7.8 RBC 4.17 L Hgb 12.4 Hct 38.9 MCV 93.3 MCH 29.7 MCHC 31.9 RDW 15.7 Plt Count 217 MPV 12.7 H Immature Gran % (Auto) Neut % (Auto) Lymph % (Auto) [place] % (Auto) Eos % (Auto) Baso % (Auto) Lymph # (Auto) [place] # (Auto) Eos # (Auto) Baso # (Auto) Abs Immat Gran (auto) Absolute Neuts (auto) Absolute Nucleated RBC 0.000 Nucleated RBC % (auto) 0.0 Sodium Potassium Chloride Carbon Dioxide Anion Gap BUN Creatinine Estim Creat Clear Calc Estimated GFR POC Glucose 84 Random Glucose Fasting Glucose Lactic Acid Calcium Magnesium COVID-19 ([facility]) Negative COVID-19 Clin Com See Note 03/21/21 03/21/21 03/21/21 06:10 07:11 11:05 WBC RBC Hgb Hct MCV MCH MCHC RDW Plt Count MPV Immature Gran % (Auto) Neut % (Auto) Lymph % (Auto) [place] % (Auto) Eos % (Auto) Baso % (Auto) Lymph # (Auto) [place] # (Auto) Eos # (Auto) Baso # (Auto) Abs Immat Gran (auto) Absolute Neuts (auto) Absolute Nucleated RBC Nucleated RBC % (auto) Sodium 141 Potassium 4.4 Chloride 105 Carbon Dioxide 27 Anion Gap 13 BUN 20 H Creatinine 1.08 Estim Creat Clear Calc 47.1 Estimated GFR 50 POC Glucose 133 H 184 H Random Glucose Fasting Glucose 129 H Lactic Acid Calcium 8.9 Magnesium 2.0 COVID-19 ([facility]) COVID-19 Clin Com Assessment and Plan (1) Cellulitis: Status: Acute Assessment and Plan: 70F presented with bilateral plantar erythema and pain and swelling bilateral plantar erythema and pain and swelling superimposed bacterial cellulitis Treated as cellulitis X are negative for osteomyelitis Has underlying chronic condition such as venous stasis will treat with iv vancomycin topical steroids, compressive therapy, iv lasix DM insulin hld statin anxiety wellbutrin gout allopurinol vte prophylaxis - low dose xarelto Quality Stroke Does the patient have a stroke diagnosis?: No VTE Prior VTE?: No VTE Risk Level:: Medical - moderate - high VTE Device Contraindication: Treatment Not Indicated VTE Drug Contraindication: N/A - Med Ordered
[2021-03-21] MEDS: Ketorolac Tromethamine 15 MG/ML VIAL 30 MG IVPUSH (14:21)
[2021-03-21 15:17] VITALS: BP 129/58; PULSE 82; RESP 16; TEMP 36.4; O2SAT 93
[2021-03-21 16:32] LABS: Glucose, Whole Blood 116 mg/dL (60-115)
[2021-03-21] MEDS: vancomycin HCL 1,250 MG in 0.9 % Sodium Chloride 250 ML 166.67 MG IV (18:32)
[2021-03-21 20:29] LABS: Glucose, Whole Blood 189 mg/dL (60-115)
[2021-03-21] MEDS: Atorvastatin Calcium 10 MG TABLET PO (21:04)
[2021-03-21] MEDS: Melatonin 3 MG TABLET PO (21:38)
[2021-03-21] MEDS: Ketorolac Tromethamine 15 MG/ML VIAL IVPUSH (21:40)
[2021-03-21] MEDS: Morphine Sulfate 4 MG/ML CARTRIDGE IVPUSH (22:21)
[2021-03-21 23:28] VITALS: BP 104/44; PULSE 69; RESP 16; TEMP 36.6; O2SAT 93
[2021-03-22] MEDS: oxyCODONE HCl Immed Release 5 MG TABLET 2.5 MG PO ×3 (03:41→20:28)
[2021-03-22 07:12] LABS: Glucose, Whole Blood 159 mg/dL (60-115)
[2021-03-22 07:19] LABS: Hematocrit 36.5 % (37-47); Hemoglobin 11.4 g/dl (12.0-16.0); Mean Corpuscular HGB Conc 31.2 g/dl (31.0-35.0); Mean Corpuscular Hemoglobin 29.5 pg (27.0-33.0); Mean Corpuscular Volume 94.6 fL (80-98); Mean Platelet Volume 12.2 fL (9.4-12.3); Platelet Count 194 X10*3/uL (160-400); Red Blood Count 3.86 X10*6/uL (4.20-5.50); Red Cell Distribution Width 15.9 % (11.0-16.0); White Blood Count 5.4 X10*3/uL (4.8-10.8)
[2021-03-22 07:37] VITALS: BP 104/44; PULSE 69
[2021-03-22] MEDS: Magnesium Oxide 400 MG TABLET PO (07:37)
[2021-03-22] MEDS: Cholecalciferol (Vitamin D3) 25 MCG TABLET PO (07:37)
[2021-03-22] MEDS: Sertraline HCL 50 MG TABLET PO (07:37)
[2021-03-22] MEDS: Pregabalin 75 MG CAPSULE 150 MG PO ×2 (07:37→20:30)
[2021-03-22] MEDS: Spironolactone 25 MG TABLET 100 MG PO (07:37)
[2021-03-22] MEDS: Cyanocobalamin (Vitamin B-12) 500 MCG TABLET PO (07:37)
[2021-03-22] MEDS: buPROPion HCl XL 300 MG TAB.ER.24H PO (07:37)
[2021-03-22] MEDS: Insulin Lispro 100 UNIT/ML 3 ML VIAL SUBCUT ×2 (07:38→17:06)
[2021-03-22] MEDS: Triamcinolone Acet 0.5 % Oint 15 GM TUBE 1 APPL TOPICAL ×2 (07:38→20:41)
[2021-03-22] MEDS: Rivaroxaban 10 MG TABLET PO (07:38)
[2021-03-22] MEDS: 0.9 % Sodium Chloride Flush 3 ML SYRINGE IVFLUSH ×3 (07:38→20:34)
[2021-03-22] MEDS: allopurinoL 300 MG TABLET PO (07:38)
[2021-03-22] MEDS: Furosemide 20 MG/2 ML VIAL IVPUSH (07:38)
[2021-03-22 07:39] VITALS: BP 128/62
[2021-03-22 07:43] LABS: Anion Gap 12 (12-20); Blood Urea Nitrogen 31 mg/dL (9-16); Calcium 8.9 mg/dL (8.4-10.2); Carbon Dioxide 29 mmol/L (22-29); Chloride 103 mmol/L (96-108); Creatinine Clr Calc Pharmacy 35.3; Estimated Glomerular Filt Rate 36; Glucose Random 187 mg/dL (60-115); Potassium 4.3 mmol/L (3.3-5.1); Sodium 140 mmol/L (135-145)
[2021-03-22] MEDS: Lidocaine 4 % Patch ADH..PATCH 1 PATCH TRANSDERMA (08:30)
[2021-03-22 11:10] LABS: Glucose, Whole Blood 146 mg/dL (60-115)
--- NOTE | 2021-03-22 13:38 | HO.PM.IMPN ---
Subjective Subjective Date of Service: 03/22/21 Review of Systems the patient was seen a a evaluated this morning pain in her lower extremities mainly in the right foot and left knee has improved since yesterday feels the redness is improving Mildly worsened kidney function Denies any fever, chills or shortness of breath No reported other overnight events. Systemic review: No fever, chills but reported increase baseline weakness No chest pain, palpitation No shortness of breath or coughing No abdominal pain, nausea or vomiting No urinary symptoms Lower extremity erythema improving but still painful Physical Exam Vital Signs: Vital Signs: Last Vital Signs Temp 97.9 F 03/21/21 23:28 Pulse 69 03/22/21 07:37 Resp 16 03/21/21 23:28 BP 128/62 03/22/21 07:39 Pulse Ox 93 03/21/21 23:28 Body Mass Index 31.1 Const: Other: Constitutional : Alert, oriented, distressed from pain Neck : Normal inspection, Supple Cardiovascular : RRR, S1 S2, trace bilateral lower extremity edema Respiratory : Good bilateral air entry, no crackles, wheezes or rhonchi Gastrointestinal: soft, lax, Normal bowel sounds, Non tender Skin : Warm/Dry, bilateral lower extremities and foot mild swelling and erythema but no drainage noticed Neurological : Alert & oriented x3, No focal deficit Objective Data Current Medications Generic Name Dose Route Start Last Admin Trade Name Freq PRN Reason Stop Dose Admin Acetaminophen 650 mg 03/20/21 17:36 Acetaminophen 325 Mg Tablet PO Q6H PRN pain Atorvastatin Calcium 10 mg 03/20/21 21:00 03/21/21 21:04 Atorvastatin Calcium 10 Mg Tablet PO 10 mg BEDTIME [facility] Administration Bupropion HCl 300 mg 03/20/21 22:15 03/22/21 07:37 Bupropion Hcl Xl 300 Mg Tab.Er.24h PO 300 mg DAILY [facility] Administration Cyanocobalamin 500 mcg 03/21/21 09:00 03/22/21 07:37 Cyanocobalamin (Vitamin B-12) 500 Mcg Tablet PO 500 mcg DAILY [facility] Administration Insulin Human Lispro 0 unit 03/20/21 21:00 03/22/21 11:10 Insulin Lispro 100 Unit/Ml 3 Ml Vial SUBCUT Not Given QIDACHS [facility] Protocol Lidocaine 1 patch 03/22/21 09:00 03/22/21 08:30 Lidocaine 4 % Patch Adh..Patch TRANSDERMA 1 patch DAILY [facility] Administration Protocol Magnesium Oxide 400 mg 03/21/21 09:00 03/22/21 07:37 Magnesium Oxide 400 Mg Tablet PO 400 mg DAILY [facility] Administration Melatonin 3 mg 03/20/21 17:36 03/21/21 21:38 Melatonin 3 Mg Tablet PO 3 mg BEDTIME PRN Administration insomnia Melatonin 6 mg 03/22/21 21:00 Melatonin 3 Mg Tablet PO BEDTIME [facility] Oxycodone HCl 2.5 mg 03/21/21 09:44 03/22/21 12:59 Oxycodone Hcl Immed Release 5 Mg Tablet PO 2.5 mg Q6H PRN Administration pain Pharmacy Consult 1 each 03/20/21 17:36 Consult Rx Vancomycin Dosing MISCELLANE DAILY PRN Consult order Pregabalin 150 mg 03/20/21 21:00 03/22/21 07:37 Pregabalin 75 Mg Capsule PO 150 mg BID [facility] Administration Rivaroxaban 10 mg 03/21/21 09:00 03/22/21 07:38 Rivaroxaban 10 Mg Tablet PO 10 mg DAILY [facility] Administration Sertraline HCl 50 mg 03/21/21 09:00 03/22/21 07:37 Sertraline Hcl 50 Mg Tablet PO 50 mg DAILY [facility] Administration Sodium Chloride 3 ml 03/21/21 00:00 03/22/21 13:02 0.9 % Sodium Chloride Flush 3 Ml Syringe IVFLUSH 3 ml QSHIFT [facility] Administration Tramadol HCl 50 mg 03/20/21 17:36 03/21/21 08:46 Tramadol Hcl 50 Mg Tablet PO 50 mg Q6H PRN Administration pain Triamcinolone Acetonide 1 appl 03/21/21 10:35 03/22/21 07:38 Triamcinolone Acet 0.5 % Oint 15 Gm Tube TOPICAL 1 appl BID [facility] Administration Vitamin D 25 mcg 03/21/21 09:00 03/22/21 07:37 Cholecalciferol (Vitamin D3) 25 Mcg Tablet PO 25 mcg DAILY [facility] Administration Labs CBC & Chem 7: 03/22/21 06:18 03/22/21 06:18 Labs: Laboratory Results - last 24 hr 03/21/21 03/21/21 03/22/21 16:26 20:23 06:18 MCV 94.6 MCH 29.5 MCHC 31.2 RDW 15.9 Plt Count 194 MPV 12.2 Absolute Nucleated RBC 0.000 Nucleated RBC % (auto) 0.0 Anion Gap Estim Creat Clear Calc Estimated GFR POC Glucose 116 H 189 H Random Glucose Calcium 03/22/21 03/22/21 03/22/21 06:18 07:08 11:04 MCV MCH MCHC RDW Plt Count MPV Absolute Nucleated RBC Nucleated RBC % (auto) Anion Gap 12 Estim Creat Clear Calc 35.3 Estimated GFR 36 POC Glucose 159 H 146 H Random Glucose 187 H D Calcium 8.9 Microbiology Microbiology Results: Microbiology 03/20/21 16:27 Blood Culture - Preliminary Blood - Venous No growth after 24 hours. 03/20/21 16:09 Blood Culture - Preliminary Blood - Venous No growth after 24 hours. Assessment and Plan (1) Abscess or cellulitis of foot: Status: Acute (2) Cellulitis: Status: Acute (3) Acute kidney injury: Status: Acute Assessment and Plan: 70F presented with bilateral plantar erythema and pain and swelling bilateral plantar erythema and pain and swelling superimposed bacterial cellulitis Treated as cellulitis X are negative for osteomyelitis Has underlying chronic condition such as venous stasis Discontinue vancomycin, start Augmentin p.o. topical steroids, compressive therapy, iv lasix Acute kidney injury Jump of creatinine to 1.4 from normal baseline below 1 Discontinue Lasix and nephrotoxic meds Monitor kidney function Monitor intake output DM insulin hld statin anxiety wellbutrin gout allopurinol vte prophylaxis - low dose xarelto Quality Stroke Does the patient have a stroke diagnosis?: No VTE Prior VTE?: No VTE Risk Level:: Medical - moderate - high VTE Device Contraindication: Treatment Not Indicated VTE Drug Contraindication: N/A - Med Ordered
[2021-03-22 13:55] VITALS: BP 128/62
[2021-03-22 15:14] VITALS: BP 106/56; PULSE 84; RESP 18; TEMP 36.5; O2SAT 90
[2021-03-22 16:41] LABS: Glucose, Whole Blood 229 mg/dL (60-115)
[2021-03-22] MEDS: traMADoL HCL 50 MG TABLET PO (17:05)
[2021-03-22] MEDS: Acetaminophen 325 MG TABLET 650 MG PO (17:05)
[2021-03-22] MEDS: Lidocaine 4 % Cream KIT 1 APPL TOPICAL (19:13)
[2021-03-22 20:23] LABS: Glucose, Whole Blood 116 mg/dL (60-115)
[2021-03-22] MEDS: Atorvastatin Calcium 10 MG TABLET PO (20:29)
[2021-03-22] MEDS: Melatonin 3 MG TABLET 6 MG PO (20:29)
[2021-03-22] MEDS: Amoxicillin/Potassium Clav 500 MG TABLET PO (20:30)
[2021-03-22 23:27] VITALS: BP 137/54; PULSE 83; RESP 18; TEMP 36.1; O2SAT 90
[2021-03-23 05:41] LABS: Anion Gap 11 (12-20); Blood Urea Nitrogen 29 mg/dL (9-16); Calcium 8.8 mg/dL (8.4-10.2); Carbon Dioxide 29 mmol/L (22-29); Chloride 105 mmol/L (96-108); Creatinine Clr Calc Pharmacy 42.8; Estimated Glomerular Filt Rate 45; Glucose Random 175 mg/dL (60-115); Potassium 4.4 mmol/L (3.3-5.1); Sodium 141 mmol/L (135-145)
[2021-03-23 07:27] VITALS: BP 155/70; PULSE 91; RESP 17; TEMP 36.5; O2SAT 91
[2021-03-23 07:37] LABS: Glucose, Whole Blood 167 mg/dL (60-115)
[2021-03-23] MEDS: buPROPion HCl XL 300 MG TAB.ER.24H PO (08:06)
[2021-03-23] MEDS: Insulin Lispro 100 UNIT/ML 3 ML VIAL SUBCUT ×2 (08:06→11:32)
[2021-03-23] MEDS: Sertraline HCL 50 MG TABLET PO (08:06)
[2021-03-23] MEDS: 0.9 % Sodium Chloride Flush 3 ML SYRINGE IVFLUSH (08:06)
[2021-03-23] MEDS: Amoxicillin/Potassium Clav 500 MG TABLET PO (08:07)
[2021-03-23] MEDS: Rivaroxaban 10 MG TABLET PO (08:07)
[2021-03-23] MEDS: Lidocaine 4 % Patch ADH..PATCH 1 PATCH TRANSDERMA (08:07)
[2021-03-23] MEDS: Cyanocobalamin (Vitamin B-12) 500 MCG TABLET PO (08:07)
[2021-03-23] MEDS: Pregabalin 75 MG CAPSULE 150 MG PO (08:07)
[2021-03-23] MEDS: Magnesium Oxide 400 MG TABLET PO (08:07)
[2021-03-23] MEDS: Furosemide 40 MG TABLET PO (08:07)
[2021-03-23] MEDS: Cholecalciferol (Vitamin D3) 25 MCG TABLET PO (08:07)
[2021-03-23] MEDS: Triamcinolone Acet 0.5 % Oint 15 GM TUBE 1 APPL TOPICAL (08:11)
[2021-03-23] MEDS: oxyCODONE HCl Immed Release 5 MG TABLET 2.5 MG PO (09:19)
[2021-03-23] MEDS: Acetaminophen 325 MG TABLET 650 MG PO (09:20)
[2021-03-23] MEDS: levoFLOXacin 500 MG TABLET PO (10:41)
[2021-03-23] MEDS: traMADoL HCL 50 MG TABLET PO (11:23)
[2021-03-23 11:34] LABS: Glucose, Whole Blood 211 mg/dL (60-115)
--- NOTE | 2021-03-23 11:36 | P.DS_ITS ---
DS: Providers Provider Date of Service: 03/23/21 Date of admission: 03/20/21 17:39 Primary care physician: Ranjeet Rushing MD DS: Diagnosis Discharge Diagnosis (1) Cellulitis: Status: Acute (2) Acute kidney injury: Status: Acute (3) Venous stasis dermatitis: Status: Acute DS: Medications Discharge Medications Home Medications: Home Medications Medication Instructions Recorded Confirmed alendronate 70 mg tablet 70 mg PO QWEEK 05/27/20 03/20/21 allopurinol 300 mg tablet 300 mg PO DAILY 05/27/20 03/20/21 cyanocobalamin (vitamin B-12) 500 500 mcg PO DAILY 05/27/20 03/20/21 mcg tablet furosemide 40 mg tablet 40 mg PO BID 05/27/20 03/20/21 liraglutide 0.6 mg/0.1 mL (18 mg/3 1.8 mg SUBCUT DAILY 05/27/20 03/20/21 mL) subcutaneous pen injector (KRAFTWERK 3-Toby) magnesium oxide 400 mg PO DAILY 05/27/20 03/20/21 melatonin 3 mg tablet 3 mg PO BEDTIME PRN 05/27/20 03/20/21 multivitamin 1 tab PO DAILY 05/27/20 06/07/20 omega-3 fatty acids 500 mg capsule 500 mg PO DAILY 05/27/20 03/20/21 pregabalin 75 mg capsule 150 mg PO BID 05/27/20 03/20/21 simvastatin 10 mg tablet 10 mg PO BEDTIME 05/27/20 03/20/21 spironolactone 100 mg tablet 100 mg PO DAILY 05/27/20 03/20/21 tramadol 50 mg tablet 50 mg PO Q6H PRN 05/27/20 03/20/21 bupropion HCl 300 mg 24 hr tablet, 300 mg PO QAM 03/20/21 03/20/21 extended release cholecalciferol (vitamin D3) 25 25 mcg PO DAILY 03/20/21 03/20/21 mcg (1,000 unit) capsule sertraline 50 mg tablet 50 mg PO DAILY 03/20/21 03/20/21 Previous Rx's Medication Instructions Recorded acetaminophen 325 mg capsule 650 mg PO Q6H PRN #20 cap 05/30/20 arm brace (Wrist Brace) #1 ea 06/29/20 levofloxacin 250 mg tablet 250 mg PO Q24H 3 Days #3 tab 03/23/21 oxycodone 5 mg tablet 2.5 mg PO Q6H PRN #8 tab 03/23/21 triamcinolone acetonide 0.5 % 1 appl TOPICAL BID 7 Days g 03/23/21 topical ointment DS: Summary Hospital Course Hospital Course: Admission note HPI Female with past medical history of diabetes, diabetic neuropathy, HTN, among others who presents to the hospital brought in by daughters because patient seemed to be more confused and they were concerned that she has UTI.? Patient is currently being treated for UTI with nitrofurantoin.? Although patient is alert and oriented to self and place she has a very hard time giving any answers, she feels very confused, she is unable to give any history and regards to what brought her into the hospital but says that she has UTI.? When asked for details as to what her symptoms are she is unable to answer. She denies any chest pain, no headache or change in vision, no abdominal pain nausea or vomiting, no diarrhea constipation, no urinary symptoms.? She does report black stools for the past 2 days with no hemoptysis, hematemesis, and no bright red blood per rectum. She does use NSAID for general pains and aches On arrival to the ED patient hemodynamically stable with no significant abnormal vitals except for slightly elevated blood pressure Of labs are significant for WBC count 6.2, hemoglobin of 7.4 that dropped from 9.6 on 02/08 21, hematocrit 24.2, MCV of 99.2, platelet count of 230, chloride of 111, creatinine of 1.7 with a baseline of around 1.19, has had C troponin of 26.1, UA that is positive for WBC, Positive occult blood, Hospital course Patient was admitted to the hospital and started treatment with IV antibiotics and IV Lasix for increased edema with compression stocking helping decreasing the erythema and warmth. X-ray of the foot was negative for any osteomyelitis. Patient skin rash significantly improved with decrease the pain and she was able to ambulate with the physical therapy team who recommended home therapy. She was complaining of left knee pain which believed to be secondary to osteoarthritis with a plan to follow-up with orthopedic as outpatient for possible injection. Noticed a jump in her kidney function which improved after holding nephrotoxic medications. To finish 3 more days of Levaquin Advised to use Lasix as prescribed to use steroid ointment for the next few days to follow-up as outpatient with primary and orthopedic team Time Spent with Patient Time attestation: Total time spent providing and/or coordinating discharge services: Discharge coordination time: Greater than 30 minutes Quality: Stroke Does the patient have a stroke diagnosis?: No Physical Exam Vital Signs: Vital Signs: Last Vital Signs Temp 97.7 F 03/23/21 07:27 Pulse 91 03/23/21 07:27 Resp 17 03/23/21 07:27 BP 155/70 H 03/23/21 07:27 Pulse Ox 91 L 03/23/21 07:27 Body Mass Index 31.1 Const: Other: Constitutional : Alert, oriented, distressed from pain Neck : Normal inspection, Supple Cardiovascular : RRR, S1 S2, trace bilateral lower extremity edema Respiratory : Good bilateral air entry, no crackles, wheezes or rhonchi Gastrointestinal: soft, lax, Normal bowel sounds, Non tender Skin : Warm/Dry, bilateral lower extremities stasis dermatitis picture, no tenderness or drainage noticed Neurological : Alert & oriented x3, No focal deficit DS: Data Data Completed and Pending Labs on day of discharge: Laboratory Results - last 24 hr 03/22/21 03/22/21 03/23/21 16:05 20:19 04:55 Sodium 141 Potassium 4.4 Chloride 105 Carbon Dioxide 29 Anion Gap 11 L BUN 29 H Creatinine 1.19 Estim Creat Clear Calc 42.8 Estimated GFR 45 POC Glucose 229 H 116 H Random Glucose 175 H Calcium 8.8 03/23/21 03/23/21 07:31 11:29 Sodium Potassium Chloride Carbon Dioxide Anion Gap BUN Creatinine Estim Creat Clear Calc Estimated GFR POC Glucose 167 H 211 H Random Glucose Calcium Preliminary micro results at discharge 03/20/21 16:27 Blood Culture - Preliminary Blood - Venous No growth after 48 hours. 03/20/21 16:09 Blood Culture - Preliminary Blood - Venous No growth after 48 hours. Discharge Plan Discharge Patient Disposition: Home Health Service Discharge Diagnosis: Cellulitis Lower extremity edema Referrals: [facility] [Outside] - 1 Week Ranjeet Rushing MD [Primary Care Provider] - 1 Week Discharge Medications: New levofloxacin 250 mg Tablet 250 mg PO Q24H 3 Days Qty: 3 RF: 0 triamcinolone acetonide 0.5 % Ointment 1 appl topical BID 7 Days RF: 0 oxycodone 5 mg Tablet 2.5 mg PO Q6H PRN (Reason: pain) Qty: 8 RF: 0 Continued tramadol 50 mg tablet 50 mg PO Q6H PRN (Reason: pain) RF: 0 multivitamin Tablet 1 tab PO DAILY RF: 0 furosemide 40 mg tablet 40 mg PO BID RF: 0 alendronate 70 mg tablet 70 mg PO QWEEK RF: 0 spironolactone 100 mg tablet 100 mg PO DAILY RF: 0 simvastatin 10 mg tablet 10 mg PO BEDTIME RF: 0 melatonin 3 mg tablet 3 mg PO BEDTIME PRN (Reason: insomnia) RF: 0 cyanocobalamin (vitamin B-12) 500 mcg tablet 500 mcg PO DAILY RF: 0 allopurinol 300 mg tablet 300 mg PO DAILY RF: 0 pregabalin 75 mg Capsule 150 mg PO BID RF: 0 omega-3 fatty acids 500 mg Capsule 500 mg PO DAILY RF: 0 Victoza 3-Toby 0.6 mg/0.1 mL (18 mg/3 mL) pen injector 1.8 mg subcut DAILY RF: 0 magnesium oxide 400 mg magnesium Tablet 400 mg PO DAILY RF: 0 acetaminophen 325 mg capsule 650 mg PO Q6H PRN (Reason: pain) Qty: 20 RF: 0 sertraline 50 mg Tablet 50 mg PO DAILY RF: 0 cholecalciferol (vitamin D3) 25 mcg (1,000 unit) Capsule 25 mcg PO DAILY RF: 0 bupropion HCl 300 mg Tablet Extended Release 24 Hr 300 mg PO QAM RF: 0 (DME) Wrist Brace Misc See Rx Instructions .MEDSUPPLY Qty: 1 RF: 0 Discharge Orders: Discharge Order (Routine); Ordered 03/23/21 Ordered By: Markus Madison Diet: advance to usual diet and low salt diet Activity on Discharge: As tolerated Stand Alone Forms: Patient Portal Discharge page Care Plan Goals: Read below Health Concerns: Read below Plan of Treatment: You were admitted to the hospital for evaluation of lower extremities rash. Treated with IV antibiotics with good response over the course of hospital stay. You continue to left knee pain which need to be evaluated by orthopedics Assessment: Use Lasix as prescribed continue Levaquin for 3 more days To follow-up with orthopedic team for the left knee pain Keep your leg elevated and use the prescribed cream for 1 week
== END 2021-03-23 13:41 | disposition home health service (06) | DRG 603 ==
LOC: HO.ED 18:01 → HO.EDOVER 18:28 → HO.S3 18:56
PROVIDERS: Admitting Provider Internal Medicine; Emergency Provider Emergency Medicine; PCP Internal Medicine; Visit Provider Student in an Organized Health Care Education/Training Program
DX: L03.116 Cellulitis of left lower limb (principal); N17.9 Acute kidney failure, unspecified; I87.2 Venous insufficiency (chronic) (peripheral); L03.115 Cellulitis of right lower limb; E78.5 Hyperlipidemia, unspecified; E11.42 Type 2 diabetes mellitus with diabetic polyneuropathy; F41.9 Anxiety disorder, unspecified; M10.9 Gout, unspecified; Z20.822 Contact with and (suspected) exposure to COVID-19; Z79.899 Other long term (current) drug therapy
CPT/HCPCS: 36415; 71045; 73620; 80048; 82947; 83605; 83735; 85025; 85027; 87040; 87635; 97110; 97162; 99285; J1885; J1940; J2270; J2543; J3370

== ENCOUNTER 2021-09-05 16:35 | Emergency (ER) | payer MEDICARE, SELFPAY ==
--- NOTE | ~2021-09-05 | US_ITS ---
EXAMINATION: US NON-INVASIVE ASSESSMENT OF THE ARTERIES OF THE LOWER EXTREMITY, LEFT Darin Dumont MD CLINICAL INFORMATION: Pain, cellulitis and swelling. COMPARISON: None TECHNIQUE: Left lower extremity duplex ultrasound was performed with velocity measurements and waveform analysis in the common femoral arteries, profunda femoris arteries, proximal mid and distal superficial femoral arteries, popliteal arteries and tibial vessels. This study was performed only at rest. FINDINGS: Velocities in cm/sec and phasicity as well as the presence of plaque are reported below. LEFT LEG: Scattered plaque is present with the most seen in the mid SFA. Common Femoral: 192 triphasic. Profunda Femoris: 88 biphasic Proximal SFA: 292. Biphasic Mid SFA: 370 biphasic-significant plaque is present in this region. Distal SFA: 119 biphasic. Popliteal: 156 triphasic. Peroneal: 107 monophasic. Posterior Tibial: 108 monophasic. US/US arterial duplex LE LT IMPRESSION: Peripheral vascular disease is present with plaque and areas of velocity acceleration in the proximal and mid SFA. No critical occlusion is seen.
--- NOTE | ~2021-09-05 | XR_ITS ---
EXAMINATION: XR FOOT, LEFT CLINICAL INFORMATION: Cellulitis. Swelling. COMPARISON: None TECHNIQUE: AP, lateral, and oblique views of the left foot. FINDINGS: There is osteopenia. There is a small chip fracture involving the first metatarsal at the metatarsal tarsal joint on the dorsum of the bone. This is an intra-articular fracture. There is vague radiolucency through the proximal shaft cortex of the second metatarsal concerning for nondisplaced fracture. Also osteosclerotic lines through the proximal shaft of the third and fourth metatarsal concerning for fractures well. CT of the foot recommended for follow-up. No dislocation. XR/XR foot LT min 3V IMPRESSION: Small chip fracture which is intra-articular involving the proximal first metatarsal at the metatarsal tarsal joint. Probable fracture of the proximal shaft of the second metatarsal. Question fracture of the proximal shaft of third and fourth metatarsal. CT of the foot recommended for follow-up.
--- NOTE | ~2021-09-05 | US_ITS ---
EXAMINATION: US VENOUS ULTRASOUND WITH DOPPLER LOWER EXTREMITY, LEFT CLINICAL INFORMATION: Left leg edema and swelling COMPARISON: None TECHNIQUE: Ultrasound of the deep veins is performed from the hip to the calf with compression sonography and color and pulse Doppler assessment. Spectral analysis with color-flow imaging is performed. FINDINGS: There is normal venous compression and respiratory variation and augmented flow. The visualized common femoral vein, superficial femoral vein, profunda femoral vein, popliteal vein, and the trifurcation region shows no evidence of deep venous thrombosis. There is no significant popliteal fossa cyst. If the patient's symptoms persist, followup ultrasound in 5 days 7 days might be of value to exclude proximal propagation from a non-visualized calf vein. US/US venous duplex LE LT IMPRESSION: No DVT demonstrated in the left lower extremity.
[2021-09-05 17:15] VITALS: BP 131/60; PULSE 92; RESP 20; TEMP 36.8; O2SAT 94; BMI 29.2
[2021-09-05 21:23] VITALS: BP 148/65; PULSE 100; RESP 19; TEMP 36.6; O2SAT 90
--- NOTE | 2021-09-05 21:58 | ECG_ITS ---
Test Reason : TACHYCARDIA Blood Pressure : / mmHG Vent. Rate : 093 BPM Atrial Rate : 093 BPM P-R Int : 172 ms QRS Dur : 076 ms QT Int : 364 ms P-R-T Axes : 041 -61 060 degrees QTc Int : 452 ms Artifact in tracing Normal sinus rhythm Left axis deviation Anteroseptal infarct , age undetermined Abnormal ECG When compared with ECG of 22-APR-2018 18:38, Anteroseptal infarct is now Present Referred By: Mary Curtis Electronically Signed By:HEBER MONIQUE
--- NOTE | 2021-09-05 21:58 | ED_ITS ---
HPI - General Adult General Chief complaint: General Medical Stated complaint: L leg cellulitis Source: patient Mode of arrival: wheelchair Limitations: no limitations History of Present Illness HPI narrative: 71-year-old female presents with left foot pain, swelling, erythema, and tachycardia. Was evaluated at urgent care and was referred to the emergency department for further investigation. Patient is a poor historian. Onset (ago): week(s) (3) Location: left and lower extremity Severity: moderate Severity scale (1-10): 7 Quality: burning, aching and constant Pain Consistency: constant Exacerbating factors: movement and other (Palpation) Associated symptoms: fever/chills Treatments prior to arrival: none Related Data Home Medications Medication Instructions Recorded Confirmed alendronate 70 mg tablet 70 mg PO QWEEK 05/27/20 03/20/21 allopurinol 300 mg tablet 300 mg PO DAILY 05/27/20 03/20/21 cyanocobalamin (vitamin B-12) 500 500 mcg PO DAILY 05/27/20 03/20/21 mcg tablet furosemide 40 mg tablet 40 mg PO BID 05/27/20 03/20/21 liraglutide 0.6 mg/0.1 mL (18 mg/3 1.8 mg SUBCUT DAILY 05/27/20 03/20/21 mL) subcutaneous pen injector ([employer] 3-Toby) magnesium oxide 400 mg PO DAILY 05/27/20 03/20/21 melatonin 3 mg tablet 3 mg PO BEDTIME PRN 05/27/20 03/20/21 multivitamin 1 tab PO DAILY 05/27/20 06/07/20 omega-3 fatty acids 500 mg capsule 500 mg PO DAILY 05/27/20 03/20/21 pregabalin 75 mg capsule 150 mg PO BID 05/27/20 03/20/21 simvastatin 10 mg tablet 10 mg PO BEDTIME 05/27/20 03/20/21 spironolactone 100 mg tablet 100 mg PO DAILY 05/27/20 03/20/21 tramadol 50 mg tablet 50 mg PO Q6H PRN 05/27/20 03/20/21 bupropion HCl 300 mg 24 hr tablet, 300 mg PO QAM 03/20/21 03/20/21 extended release cholecalciferol (vitamin D3) 25 25 mcg PO DAILY 03/20/21 03/20/21 mcg (1,000 unit) capsule sertraline 50 mg tablet 50 mg PO DAILY 03/20/21 03/20/21 Previous Rx's Medication Instructions Recorded acetaminophen 325 mg capsule 650 mg PO Q6H PRN #20 cap 05/30/20 arm brace (Wrist Brace) #1 ea 06/29/20 levofloxacin 250 mg tablet 250 mg PO Q24H 3 Days #3 tab 03/23/21 oxycodone 5 mg tablet 2.5 mg PO Q6H PRN #8 tab 03/23/21 triamcinolone acetonide 0.5 % 1 appl TOPICAL BID 7 Days g 03/23/21 topical ointment Allergies Allergy/AdvReac Type Severity Reaction Status Date / Time zolpidem [From AMBIEN] Allergy Severe SLEEP Verified 09/05/21 17:15 WALKING lactic acid [From LAC-HYDRIN] Allergy Intermediate RASH Verified 09/05/21 17:15 latex [Latex] Allergy Intermediate HIVES Verified 09/05/21 17:15 varenicline [From CHANTIX] Allergy Intermediate RASH Verified 09/05/21 17:15 From Benadryl Allergy Intermediate HIVES Uncoded 05/11/20 16:08 Review of Systems Review of Systems: Constitutional: No Fever, No Chills ENT/Mouth: No Ear Pain, No Hoarseness, No sore throat Eyes: No Eye Pain, No Swelling, No Redness, No Foreign Body Cardiovascular: No Chest Pain, No SOB Respiratory: No Cough, No Dyspnea Gastrointestinal: No Nausea, No Vomiting, No Diarrhea, No abdominal Pain Genitourinary: No Dysuria, No Hematuria Musculoskeletal: positive left foot pain, No Myalgias, No Joint Swelling Skin: Positive left foot erythema, No Skin lacerations, No rash Neuro: No Weakness, No Numbness, No Paresthesias, No Loss of Consciousness, No Dizziness, No Headache Psych: No Anxiety/Panic, No Depression Heme/Lymph: no easy bruising, no Lymphadenopathy Endocrine: No Polyuria, No Polydipsia Yes all other systems are reviewed and are negative [facility] Past Medical History Attestation statement: The following information was validated with the patient. Source: old records reviewed Medical History Anxiety Carpal tunnel syndrome Cellulitis Chronic back pain CKD (chronic kidney disease) Depression Diabetes Diabetic neuropathy HTN (hypertension) Hyperlipidemia Osteoporosis Psoriasis Spondylosis Venous stasis dermatitis Surgical History H/O section S/P cervical spinal fusion Social History Social History Household Members: None Household Members Other:: daughter helps out daily Housing: Apartment Do you presently have visiting nurse or other home services: Yes (pt reports visiting nurse) Alcohol intake: never Patient Tobacco Use Status: Former Tobacco user Advance Directives: No Advance Directives Information Provided: No service: No Current occupational status: unemployed Physical Exam Vital Signs: Vital Signs: Last Vital Signs Temp 97.9 F 09/05/21 21:23 Pulse 88 09/06/21 00:25 Resp 16 09/06/21 00:25 BP 168/69 H 09/06/21 00:25 Pulse Ox 93 09/06/21 00:25 BMI result Body Mass Index 29.2 Appearance: Alert. Oriented X3. Moderate distress. Eyes: Pupils equal, round and reactive to light. EOMI. Sclerae nonicteric. ENT: Pharynx normal. Dry mucous membranes. Neck: Normal inspection. Neck supple. No cervical lymphadenopathy CVS: Tachycardic heart rate and rhythm. Apical pulse equal to all pulses to extremities. Respiratory: No respiratory distress. Lung sounds clear to auscultation all lobes. Abdomen: Soft and nontender. Skin: Skin warm and dry. Normal skin color. Normal skin turgor. Extremities: Bilateral lower extremity edema. Severe pain on minimal palpation to the dorsal aspect of the medial left foot. Erythematous. Severe onychomycosis. Brisk capillary refill. Neuro: No motor deficit. No sensory deficit. Cranial nerves 2-12 intact. Course Course Course Narrative: 71-year-old female presents with 3 weeks of left foot pain after a fall, has swelling, 10/10 pain to minimal touch. Patient was referred to the emergency department from urgent care for more in-depth investigation. Will order labs, lactic, cultures, x-rays and duplex. Patient does answer questions appropriately. X-rays indicate multiple fractures to the proximal shaft of the 3rd and 4th metatarsal. Will have patient follow-up with primary care for outpatient CT scan. Lab values are unremarkable. No white count. Highly unlikely for cellulitis and osteomyelitis. 12:25 a.m. vital signs are stable and within normal limits, mildly elevated blood pressure however blood pressures were normotensive. Even unlabored respirations, O2 sat 94% on room air. Speaking in complete sentences. Plan of care is to discharge home with primary care follow-up. Will place in a walker boot. Will refer to orthopedics. Medical Decision Making MDM Narrative Medical decision making narrative: For fracture Differential Diagnosis Differential Diagnosis: Cellulitis, osteomyelitis, DVT, sepsis Medical Records Medical records reviewed: Yes I reviewed the patient's medical records. Lab Data Lab results reviewed: Yes I reviewed the patient's lab results. Result diagrams: 09/05/21 23:26 09/05/21 23:26 Labs: Lab Results 09/05/21 09/05/21 09/05/21 Range/Units 23:26 23:26 23:26 WBC 6.1 (4.8-10.8) X10*3/uL RBC 4.78 (4.20-5.50) X10*6/uL Hgb 13.6 (12.0-16.0) g/dl Hct 43.2 (37.0-47.0) % MCV 90.4 (80.0-98.0) fL MCH 28.5 (27.0-33.0) pg MCHC 31.5 (31.0-35.0) g/dl RDW 15.9 (11.0-16.0) % Plt Count 263 (160-400) X10*3/uL MPV 11.8 (9.4-12.3) fL Immature Gran % (Auto) 0.3 (0.0-0.4) % Neut % (Auto) 51.0 (45-73) % Lymph % (Auto) 27.7 (20-40) % Avery % (Auto) 10.6 (2-11) % Eos % (Auto) 9.7 H (0-4) % Baso % (Auto) 0.7 (0-2) % Lymph # (Auto) 1.7 (1.2-4.9) X10*3/uL Avery # (Auto) 0.7 (0.1-1.2) X10*3/uL Eos # (Auto) 0.6 H (0.0-0.4) X10*3/uL Baso # (Auto) 0.0 (0.0-0.2) X10*3/uL Abs Immat Gran (auto) 0.02 (0.00-0.03) X10*3/uL Absolute Neuts (auto) 3.1 (2.0-8.3) x10*3/uL Absolute Nucleated RBC 0.000 (0.0-0.012) X10*3/uL Nucleated RBC % (auto) 0.0 (0.0-0.2) /100WBC PT (9.9-13.0) SEC INR (0.9-1.1) APTT Cancelled Sodium 140 (135-145) mmol/L Potassium 3.5 D (3.3-5.1) mmol/L Chloride 102 (96-108) mmol/L Carbon Dioxide 30 H (22-29) mmol/L Anion Gap 12 (12-20) BUN 15 (9-16) mg/dL Creatinine 1.08 (0.5-1.4) mg/dL Estim Creat Clear Calc 44.9 Estimated GFR 50 Random Glucose 191 H (60-115) mg/dL Lactic Acid (0.5-2.0) mmol/L Calcium 9.3 (8.4-10.2) mg/dL Total Bilirubin 0.5 (0.0-1.0) mg/dL Direct Bilirubin 0.2 (0.0-0.5) mg/dL AST 23 (5-31) U/L ALT 20 (0-31) U/L Alkaline Phosphatase 114 (39-117) U/L Troponin I High Sens (<3.5-17.0) ng/L Total Protein 6.8 (6.5-8.0) g/dL Albumin 3.5 (3.5-5.0) g/dL Lipase 44 (8-78) U/L COVID-19 ([facility]) (Negative) COVID-19 Clin Com 09/05/21 09/05/21 09/05/21 Range/Units 23:26 23:26 23:26 WBC (4.8-10.8) X10*3/uL RBC (4.20-5.50) X10*6/uL Hgb (12.0-16.0) g/dl Hct (37.0-47.0) % MCV (80.0-98.0) fL MCH (27.0-33.0) pg MCHC (31.0-35.0) g/dl RDW (11.0-16.0) % Plt Count (160-400) X10*3/uL MPV (9.4-12.3) fL Immature Gran % (Auto) (0.0-0.4) % Neut % (Auto) (45-73) % Lymph % (Auto) (20-40) % Avery % (Auto) (2-11) % Eos % (Auto) (0-4) % Baso % (Auto) (0-2) % Lymph # (Auto) (1.2-4.9) X10*3/uL Avery # (Auto) (0.1-1.2) X10*3/uL Eos # (Auto) (0.0-0.4) X10*3/uL Baso # (Auto) (0.0-0.2) X10*3/uL Abs Immat Gran (auto) (0.00-0.03) X10*3/uL Absolute Neuts (auto) (2.0-8.3) x10*3/uL Absolute Nucleated RBC (0.0-0.012) X10*3/uL Nucleated RBC % (auto) (0.0-0.2) /100WBC PT 10.9 (9.9-13.0) SEC INR 1.0 (0.9-1.1) APTT 45.6 H Sodium (135-145) mmol/L Potassium (3.3-5.1) mmol/L Chloride (96-108) mmol/L Carbon Dioxide (22-29) mmol/L Anion Gap (12-20) BUN (9-16) mg/dL Creatinine (0.5-1.4) mg/dL Estim Creat Clear Calc Estimated GFR Random Glucose (60-115) mg/dL Lactic Acid (0.5-2.0) mmol/L Calcium (8.4-10.2) mg/dL Total Bilirubin (0.0-1.0) mg/dL Direct Bilirubin (0.0-0.5) mg/dL AST (5-31) U/L ALT (0-31) U/L Alkaline Phosphatase (39-117) U/L Troponin I High Sens 5.7 (<3.5-17.0) ng/L Total Protein (6.5-8.0) g/dL Albumin (3.5-5.0) g/dL Lipase (8-78) U/L COVID-19 ([facility]) Negative (Negative) COVID-19 Clin Com See Note 09/05/21 Range/Units 23:26 WBC (4.8-10.8) X10*3/uL RBC (4.20-5.50) X10*6/uL Hgb (12.0-16.0) g/dl Hct (37.0-47.0) % MCV (80.0-98.0) fL MCH (27.0-33.0) pg MCHC (31.0-35.0) g/dl RDW (11.0-16.0) % Plt Count (160-400) X10*3/uL MPV (9.4-12.3) fL Immature Gran % (Auto) (0.0-0.4) % Neut % (Auto) (45-73) % Lymph % (Auto) (20-40) % Avery % (Auto) (2-11) % Eos % (Auto) (0-4) % Baso % (Auto) (0-2) % Lymph # (Auto) (1.2-4.9) X10*3/uL Avery # (Auto) (0.1-1.2) X10*3/uL Eos # (Auto) (0.0-0.4) X10*3/uL Baso # (Auto) (0.0-0.2) X10*3/uL Abs Immat Gran (auto) (0.00-0.03) X10*3/uL Absolute Neuts (auto) (2.0-8.3) x10*3/uL Absolute Nucleated RBC (0.0-0.012) X10*3/uL Nucleated RBC % (auto) (0.0-0.2) /100WBC PT (9.9-13.0) SEC INR (0.9-1.1) APTT Sodium (135-145) mmol/L Potassium (3.3-5.1) mmol/L Chloride (96-108) mmol/L Carbon Dioxide (22-29) mmol/L Anion Gap (12-20) BUN (9-16) mg/dL Creatinine (0.5-1.4) mg/dL Estim Creat Clear Calc Estimated GFR Random Glucose (60-115) mg/dL Lactic Acid 1.1 (0.5-2.0) mmol/L Calcium (8.4-10.2) mg/dL Total Bilirubin (0.0-1.0) mg/dL Direct Bilirubin (0.0-0.5) mg/dL AST (5-31) U/L ALT (0-31) U/L Alkaline Phosphatase (39-117) U/L Troponin I High Sens (<3.5-17.0) ng/L Total Protein (6.5-8.0) g/dL Albumin (3.5-5.0) g/dL Lipase (8-78) U/L COVID-19 ([facility]) (Negative) COVID-19 Clin Com Imaging Data Venous and arterial duplex: Attestation: I personally reviewed and interpreted this imaging study as follows: Radiologist's impression: EXAMINATION:? US VENOUS ULTRASOUND WITH DOPPLER LOWER EXTREMITY, LEFT CLINICAL INFORMATION:? Left leg edema and swelling COMPARISON:? None TECHNIQUE: Ultrasound of the deep veins is performed from the hip to the calf with compression sonography and color and pulse Doppler assessment. Spectral analysis with color-flow imaging is performed. FINDINGS: There is normal venous compression and respiratory variation and augmented flow. The visualized common femoral vein, superficial femoral vein, profunda femoral vein, popliteal vein, and the trifurcation region shows no evidence of deep venous thrombosis. ? There is no significant popliteal fossa cyst. If the patient's symptoms persist, followup ultrasound in 5 days 7 days might be of value to exclude proximal propagation from a non-visualized calf vein. US/US venous duplex LE IMPRESSION: No DVT demonstrated in the left lower extremity. Foot x-ray: Attestation: I personally reviewed and interpreted this imaging study as follows: Radiologist's impression: EXAMINATION: XR FOOT, LEFT CLINICAL INFORMATION: Cellulitis. Swelling.? COMPARISON: None? TECHNIQUE: AP, lateral, and oblique views of the left foot. FINDINGS: There is osteopenia. There is a small chip fracture involving the first metatarsal at the metatarsal tarsal joint on the dorsum of the bone. This is an intra-articular fracture. There is vague radiolucency through the proximal shaft cortex of the second metatarsal concerning for nondisplaced fracture. Also osteosclerotic lines through the proximal shaft of the third and fourth metatarsal concerning for fractures well. CT of the foot recommended for follow-up. No dislocation. XR/XR foot LT min 3V IMPRESSION: Small chip fracture which is intra-articular involving the proximal first metatarsal at the metatarsal tarsal joint. Probable fracture of the proximal shaft of the second metatarsal. Question fracture of the proximal shaft of third and fourth metatarsal. CT of the foot recommended for follow-up. ECG Data Attestation: I personally reviewed and interpreted this ECG as follows: Prior ECG tracings: available for review Interpretation: Vent. Rate : 093 BPM ? ? Atrial Rate : 093 BPM ?? P-R Int : 172 ms? QRS Dur : 076 ms ? ? QT Int : 364 ms ? ? ? P-R-T Axes : 041 -61 060 degrees ?? QTc Int : 452 ms ? Normal sinus rhythm Left axis deviation Anteroseptal infarct , age undetermined Abnormal ECG When compared with ECG of 22-APR-2018 18:38, Anteroseptal infarct is now Present 05-SEP-2021 23:31:44 Discharge Plan Discharge Clinical Impression: Foot fracture, left Qualifiers: Encounter type: initial encounter Fracture type: closed Qualified Code(s): S92.902A - Unspecified fracture of left foot, initial encounter for closed fracture Patient Disposition: Home, Self-Care Instructions: Foot Fracture in Adults (ED) Additional Instructions: You were evaluated for left leg pain, erythema and swelling. X-rays indicate fractures to the toes and metatarsals. Please follow-up with orthopedics. I have referred you to [facility]. please call and request an appointment. We provided you with a walker boot. Please wear this every time you walk. Please follow-up with your primary care physician. Your lab values were within normal limits. There is no indication of infection inside of your foot. Thank you for choosing this emergency department for evaluation. Please follow-up with primary care physician as needed. Return to the emergency department for any new, concerning, or worsening symptoms. Prescriptions: No Action tramadol 50 mg tablet 50 mg PO Q6H PRN (Reason: pain) RF: 0 multivitamin Tablet 1 tab PO DAILY RF: 0 furosemide 40 mg tablet 40 mg PO BID RF: 0 alendronate 70 mg tablet 70 mg PO QWEEK RF: 0 spironolactone 100 mg tablet 100 mg PO DAILY RF: 0 simvastatin 10 mg tablet 10 mg PO BEDTIME RF: 0 melatonin 3 mg tablet 3 mg PO BEDTIME PRN (Reason: insomnia) RF: 0 cyanocobalamin (vitamin B-12) 500 mcg tablet 500 mcg PO DAILY RF: 0 allopurinol 300 mg tablet 300 mg PO DAILY RF: 0 pregabalin 75 mg Capsule 150 mg PO BID RF: 0 omega-3 fatty acids 500 mg Capsule 500 mg PO DAILY RF: 0 [employer] 3-Toby 0.6 mg/0.1 mL (18 mg/3 mL) pen injector 1.8 mg subcut DAILY RF: 0 magnesium oxide 400 mg magnesium Tablet 400 mg PO DAILY RF: 0 acetaminophen 325 mg capsule 650 mg PO Q6H PRN (Reason: pain) Qty: 20 RF: 0 sertraline 50 mg Tablet 50 mg PO DAILY RF: 0 cholecalciferol (vitamin D3) 25 mcg (1,000 unit) Capsule 25 mcg PO DAILY RF: 0 bupropion HCl 300 mg Tablet Extended Release 24 Hr 300 mg PO QAM RF: 0 levofloxacin 250 mg Tablet 250 mg PO Q24H 3 Days Qty: 3 RF: 0 triamcinolone acetonide 0.5 % Ointment 1 appl topical BID 7 Days RF: 0 oxycodone 5 mg Tablet 2.5 mg PO Q6H PRN (Reason: pain) Qty: 8 RF: 0 (DME) Wrist Brace Misc See Rx Instructions .MEDSUPPLY Qty: 1 RF: 0 Referrals: Ranjeet Rushing MD [Primary Care Provider] - 2 days (Small chip fracture which is intra-articular involving the proximal first metatarsal at the metatarsal tarsal joint. Probable fracture of the proximal shaft of the second metatarsal. Question fracture of the proximal shaft of third and fourth metatarsal. CT of the foot recommended for follow-up.) Stephanie Mejia PA-C [Physician Retirement Administrator] - 2 days (Small chip fracture which is intra-articular involving the proximal first metatarsal at the metatarsal tarsal joint. Probable fracture of the proximal shaft of the second metatarsal. Question fracture of the proximal shaft of third and fourth metatarsal. CT of the foot recommended for follow-up.)
--- NOTE | 2021-09-05 23:02 | PC.NURSE ---
PT AWAITING ROOM AND MAIN ED AND REPORT GIVEN TO HOSEA GUARDADO WHO WILL RESUME CARE UNTIL SHE CAN BE MOVED.
[2021-09-05] MEDS: cefTRIAXone sodium 1 GM in 0.9 % Sodium Chloride 50 ML IV (23:44)
[2021-09-05] MEDS: 0.9 % Sodium Chloride 1,000 ML 999 ML IVCONT (23:45)
[2021-09-05 23:49] LABS: MANUAL DIFF FLAG NO
[2021-09-05 23:53] VITALS: BP 168/66; PULSE 90; RESP 16; O2SAT 92
[2021-09-05 23:53] LABS: Basophils Percent Auto 0.7 % (0-2); Eosinophils Absolute Auto 0.6 X10*3/uL (0.0-0.4); Eosinophils Percent Auto 9.7 % (0-4); Hematocrit 43.2 % (37.0-47.0); Hemoglobin 13.6 g/dl (12.0-16.0); Imm Gran Abs Auto 0.02 X10*3/uL (0.00-0.03); Imm Gran Pct Auto 0.3 % (0.0-0.4); Lymphocytes Absolute Auto 1.7 X10*3/uL (1.2-4.9); Lymphocytes Percent Auto 27.7 % (20-40); Mean Corpuscular HGB Conc 31.5 g/dl (31.0-35.0); Mean Corpuscular Hemoglobin 28.5 pg (27.0-33.0); Mean Corpuscular Volume 90.4 fL (80.0-98.0); Mean Platelet Volume 11.8 fL (9.4-12.3); Monocytes Absolute Auto 0.7 X10*3/uL (0.1-1.2); Monocytes Percent Auto 10.6 % (2-11); Neutrophils Absolute Auto 3.1 x10*3/uL (2.0-8.3); Platelet Count 263 X10*3/uL (160-400); Red Blood Count 4.78 X10*6/uL (4.20-5.50); Red Cell Distribution Width 15.9 % (11.0-16.0); White Blood Count 6.1 X10*3/uL (4.8-10.8)
[2021-09-05 23:58] LABS: Prothrombin Time 10.9 SEC (9.9-13.0)
[2021-09-06 00:01] LABS: Lactic Acid 1.1 mmol/L (0.5-2.0); Partial Thromboplastin Time 45.6 SEC (24.1-38.0)
[2021-09-06 00:10] LABS: COVID-19 Test Negative (Negative); IDNOW Serial# 9DD0AD1C; Troponin-I High Sensitivity 5.7 ng/L (<3.5-17.0)
[2021-09-06 00:23] LABS: Alanine Aminotransferase 20 U/L (0-31); Albumin Level 3.5 g/dL (3.5-5.0); Alkaline Phosphatase 114 U/L (39-117); Anion Gap 12 (12-20); Aspartate Amino Transferase 23 U/L (5-31); Bilirubin Direct 0.2 mg/dL (0.0-0.5); Bilirubin Total 0.5 mg/dL (0.0-1.0); Blood Urea Nitrogen 15 mg/dL (9-16); Calcium 9.3 mg/dL (8.4-10.2); Carbon Dioxide 30 mmol/L (22-29); Chloride 102 mmol/L (96-108); Creatinine Clr Calc Pharmacy 44.9; Estimated Glomerular Filt Rate 50; Glucose Random 191 mg/dL (60-115); Lipase 44 U/L (8-78); Potassium 3.5 mmol/L (3.3-5.1); Sodium 140 mmol/L (135-145); Total Protein 6.8 g/dL (6.5-8.0)
[2021-09-06 00:25] VITALS: BP 168/69; PULSE 88; RESP 16; O2SAT 93
== END 2021-09-06 02:06 | disposition home or self-care (01) ==
PROVIDERS: Nurse Practitioner Family; Emergency Provider Emergency Medicine; PCP Internal Medicine
DX: S92.312A Displaced fracture of first metatarsal bone, left foot, initial encounter for closed fracture (principal); X58.XXXA Exposure to other specified factors, initial encounter; M79.672 Pain in left foot; R00.0 Tachycardia, unspecified; Z20.822 Contact with and (suspected) exposure to COVID-19; E11.22 Type 2 diabetes mellitus with diabetic chronic kidney disease; I12.9 Hypertensive chronic kidney disease with stage 1 through stage 4 chronic kidney disease, or unspecified chronic kidney disease; N18.9 Chronic kidney disease, unspecified; E78.5 Hyperlipidemia, unspecified; Z79.02 Long term (current) use of antithrombotics/antiplatelets; Z79.899 Other long term (current) drug therapy; Y93.9 Activity, unspecified; Y92.9 Unspecified place or not applicable; Y99.9 Unspecified external cause status
CPT/HCPCS: 36415; 73630; 80048; 80076; 83605; 83690; 84484; 85025; 85610; 85730; 87040; 87635; 93005; 93926; 93971; 96361; 96374; 99284; J0696

== ENCOUNTER 2021-09-24 17:02 | Emergency (ER) | payer MEDICARE, SELFPAY ==
--- NOTE | ~2021-09-24 | CT_ITS ---
EXAMINATION: CT HEAD WITHOUT CONTRAST CLINICAL INFORMATION: Headache. COMPARISON: CT head dated from 09/23/2016. TECHNIQUE: Contiguous axial imaging was performed from the skull base to vertex without intravenous administration of contrast. This CT examination was performed using dose optimization techniques as appropriate, variously including the following: *Automated exposure control *Adjustment of mA and/or kV according to patient size (this includes techniques or standardized protocols for targeted exams where dose is matched to indication/reason for exam; i.e. extremities or head) *Use of iterative reconstruction technique DLP: 570 mGy-cm FINDINGS: There is no evidence of acute intracranial hemorrhage or edematous territorial infarction. A few foci of hypoattenuation in the periventricular and deep white matter are consistent with mild microangiopathy. Rodgers-white matter differentiation is preserved. Proportional prominence of the ventricles and sulcal spaces. No evidence for obstructive hydrocephalus. No abnormal mass effect or midline shift. No extra-axial fluid collections. No acute soft tissue or osseous abnormalities. Partially visualized cervical fusion hardware. The mastoid air cells and paranasal sinuses are clear. CT/CT head/brain wo con IMPRESSION: No evidence of acute intracranial hemorrhage or edematous territorial infarction.
[2021-09-24 18:32] VITALS: BP 141/67; PULSE 90; RESP 18; TEMP 36.8; O2SAT 92; BMI 28.3
[2021-09-24 19:10] LABS: Hematocrit 43.6 % (37.0-47.0); Hemoglobin 13.8 g/dl (12.0-16.0); Mean Corpuscular HGB Conc 31.7 g/dl (31.0-35.0); Mean Corpuscular Hemoglobin 28.2 pg (27.0-33.0); Mean Corpuscular Volume 89.2 fL (80.0-98.0); Mean Platelet Volume 12.8 fL (9.4-12.3); Platelet Count 204 X10*3/uL (160-400); Red Blood Count 4.89 X10*6/uL (4.20-5.50); White Blood Count 6.8 X10*3/uL (4.8-10.8)
[2021-09-24 19:14] LABS: Anion Gap 13 (12-20); Blood Urea Nitrogen 19 mg/dL (9-16); Calcium 9.9 mg/dL (8.4-10.2); Carbon Dioxide 35 mmol/L (22-29); Chloride 98 mmol/L (96-108); Creatinine Clr Calc Pharmacy 36.7; Estimated Glomerular Filt Rate 40; Glucose Random 139 mg/dL (60-115); Potassium 4.1 mmol/L (3.3-5.1); Sodium 142 mmol/L (135-145)
[2021-09-24 19:15] LABS: COVID-19 Test Negative (Negative)
--- NOTE | 2021-09-24 20:37 | ED_ITS ---
HPI - Headache General Chief Complaint: Headache Stated Complaint: sent from urgent care [facility] head pain Time Seen by Provider: 09/24/21 19:51 History of Present Illness HPI Narrative: Patient complains of a headache on the right side of the back of her head which started 2 or 3 days ago and and is not similar to any prior headaches there is no other associated symptom there is no numbness no weakness no dizziness no confusion no motor weakness on either side of the body no loss of sensation no vision changes, pain started gradually no abrupt onset there is no fainting or feeling faint no recent fevers Patient was seen in an urgent care who advised her to go to the ER for head CT Related Data Home Medications Medication Instructions Recorded Confirmed alendronate 70 mg tablet 70 mg PO QWEEK 05/27/20 03/20/21 allopurinol 300 mg tablet 300 mg PO DAILY 05/27/20 03/20/21 cyanocobalamin (vitamin B-12) 500 500 mcg PO DAILY 05/27/20 03/20/21 mcg tablet furosemide 40 mg tablet 40 mg PO BID 05/27/20 03/20/21 liraglutide 0.6 mg/0.1 mL (18 mg/3 1.8 mg SUBCUT DAILY 05/27/20 03/20/21 mL) subcutaneous pen injector (GetGlue 3-Toby) magnesium oxide 400 mg PO DAILY 05/27/20 03/20/21 melatonin 3 mg tablet 3 mg PO BEDTIME PRN 05/27/20 03/20/21 multivitamin 1 tab PO DAILY 05/27/20 06/07/20 omega-3 fatty acids 500 mg capsule 500 mg PO DAILY 05/27/20 03/20/21 pregabalin 75 mg capsule 150 mg PO BID 05/27/20 03/20/21 simvastatin 10 mg tablet 10 mg PO BEDTIME 05/27/20 03/20/21 spironolactone 100 mg tablet 100 mg PO DAILY 05/27/20 03/20/21 tramadol 50 mg tablet 50 mg PO Q6H PRN 05/27/20 03/20/21 bupropion HCl 300 mg 24 hr tablet, 300 mg PO QAM 03/20/21 03/20/21 extended release cholecalciferol (vitamin D3) 25 25 mcg PO DAILY 03/20/21 03/20/21 mcg (1,000 unit) capsule sertraline 50 mg tablet 50 mg PO DAILY 03/20/21 03/20/21 Previous Rx's Medication Instructions Recorded acetaminophen 325 mg capsule 650 mg PO Q6H PRN #20 cap 05/30/20 arm brace (Wrist Brace) #1 ea 06/29/20 levofloxacin 250 mg tablet 250 mg PO Q24H 3 Days #3 tab 03/23/21 oxycodone 5 mg tablet 2.5 mg PO Q6H PRN #8 tab 03/23/21 triamcinolone acetonide 0.5 % 1 appl TOPICAL BID 7 Days g 03/23/21 topical ointment Allergies Allergy/AdvReac Type Severity Reaction Status Date / Time zolpidem [From Allergy Severe SLEEP Verified 09/24/21 15:52 AMBIEN] WALKING lactic acid [From Allergy Intermediate RASH Verified 09/24/21 15:52 LAC-HYDRIN] latex [Latex] Allergy Intermediate HIVES Verified 09/24/21 15:52 varenicline [From Allergy Intermediate RASH Verified 09/24/21 15:52 CHANTIX] From Benadryl Allergy Intermediate HIVES Uncoded 09/24/21 15:52 Review of Systems Verdana 4l Review of Systems: Verdana 4d Verdana 4d Positive for headache Negatives are no fever no chills no dizziness no weakness no fainting no feeling faint no vision changes no confusion no stiff neck no sore throat no chest pain no shortness of breath no numbness weakness or tinglingtingling no skin rash no injury Yes all other systems are reviewed and are negative PMFSH Past Medical History Source: nursing notes reviewed Medical History Anxiety Carpal tunnel syndrome Cellulitis Chronic back pain CKD (chronic kidney disease) Depression Diabetes Diabetic neuropathy HTN (hypertension) Hyperlipidemia Osteoporosis Psoriasis Spondylosis Venous stasis dermatitis Surgical History H/O section S/P cervical spinal fusion Social History Social History Household Members: None Household Members Other:: daughter helps out daily Housing: Apartment Do you presently have visiting nurse or other home services: Yes (pt reports visiting nurse) Alcohol intake: never Patient Tobacco Use Status: Former Tobacco user Advance Directives: No service: No Current occupational status: unemployed Physical Exam Verdana 4l Vital Signs: Verdana 4d Verdana 4d Vital Signs: Verdana 4d Verdana 4Bd Last Vital Signs Verdana 4d Press Hand New 4d Press Hand New 4d Temp 98.3 F 09/24/21 18:32 Press Hand New 4d Pulse 96 09/24/21 20:53 Press Hand New 4d Resp 16 09/24/21 20:53 BP 149/83 H 09/24/21 20:53 Pulse Ox 95 09/24/21 20:53 BMI result Body Mass Index 28.3 General appearance is no acute distress Head is normocephalic and atraumatic The eyes pupils equal round reactive to light and extraocular motions were intact The neck is supple Respiratory no distress Extremities the left foot is in a cast for recent foot fracture, otherwise other extremities and joints have normal range of motion Skin no rash Neuro cranial nerves 2-12 intact as tested, cerebellar exam was normal, interaction both expression and comprehension were normal motor was 5/5 x4 Course Course Course Narrative: Patient with a very localized headache to posterior scalp on the right side with no other symptoms no neurologic deficit no loss of consciousness no fever no fainting no vomiting headache, no rash in the area head CT that did not reveal any bleed or mass no acute pathology and she has Ultram and Tylenol at home is recommended to use pain medicine as needed and follow with primary doctor for further evaluation if needed MDM - Headache Lab Data Attestation: I reviewed the patient's lab results. Result diagrams: 09/24/21 18:41 09/24/21 18:41 Labs: Lab Results 09/24/21 09/24/21 09/24/21 Range/Units 18:41 18:41 18:41 WBC 6.8 (4.8-10.8) X10*3/uL RBC 4.89 (4.20-5.50) X10*6/uL Hgb 13.8 (12.0-16.0) g/dl Hct 43.6 (37.0-47.0) % MCV 89.2 (80.0-98.0) fL MCH 28.2 (27.0-33.0) pg MCHC 31.7 (31.0-35.0) g/dl RDW 16.0 (11.0-16.0) % Plt Count 204 (160-400) X10*3/uL MPV 12.8 H (9.4-12.3) fL Absolute Nucleated RBC 0.000 (0.0-0.012) X10*3/uL Nucleated RBC % (auto) 0.0 (0.0-0.2) /100WBC Sodium 142 (135-145) mmol/L Potassium 4.1 (3.3-5.1) mmol/L Chloride 98 (96-108) mmol/L Carbon Dioxide 35 H (22-29) mmol/L Anion Gap 13 (12-20) BUN 19 H (9-16) mg/dL Creatinine 1.30 (0.5-1.4) mg/dL Estim Creat Clear Calc 36.7 Estimated GFR 40 Random Glucose 139 H (60-115) mg/dL Calcium 9.9 D (8.4-10.2) mg/dL COVID-19 ([facility]) Negative (Negative) COVID-19 Clin Com See Note Discharge Plan Discharge Clinical Impression: Headache Patient Disposition: Home, Self-Care Additional Instructions: Head CT did not reveal any emergent condition there was no bleed no mass seen Blood tests did not reveal any acute pathology or condition Because of location of pain at may be connected to muscles in the neck, but best plan is follow with primary doctor if headaches continue for further evaluation and possible referral If headaches worsen or any confusion or vomiting or any worse condition return to the ER any time Prescriptions: No Action tramadol 50 mg tablet 50 mg PO Q6H PRN (Reason: pain) 0RF multivitamin Tablet 1 tab PO DAILY 0RF furosemide 40 mg tablet 40 mg PO BID 0RF alendronate 70 mg tablet 70 mg PO QWEEK 0RF spironolactone 100 mg tablet 100 mg PO DAILY 0RF simvastatin 10 mg tablet 10 mg PO BEDTIME 0RF melatonin 3 mg tablet 3 mg PO BEDTIME PRN (Reason: insomnia) 0RF cyanocobalamin (vitamin B-12) 500 mcg tablet 500 mcg PO DAILY 0RF allopurinol 300 mg tablet 300 mg PO DAILY 0RF pregabalin 75 mg Capsule 150 mg PO BID 0RF omega-3 fatty acids 500 mg Capsule 500 mg PO DAILY 0RF Victoza 3-Toby 0.6 mg/0.1 mL (18 mg/3 mL) pen injector 1.8 mg subcut DAILY 0RF magnesium oxide 400 mg magnesium Tablet 400 mg PO DAILY 0RF acetaminophen 325 mg capsule 650 mg PO Q6H PRN (Reason: pain) Qty: 20 0RF sertraline 50 mg Tablet 50 mg PO DAILY 0RF cholecalciferol (vitamin D3) 25 mcg (1,000 unit) Capsule 25 mcg PO DAILY 0RF bupropion HCl 300 mg Tablet Extended Release 24 Hr 300 mg PO QAM 0RF levofloxacin 250 mg Tablet 250 mg PO Q24H 3 Days Qty: 3 0RF triamcinolone acetonide 0.5 % Ointment 1 appl topical BID 7 Days 0RF oxycodone 5 mg Tablet 2.5 mg PO Q6H PRN (Reason: pain) Qty: 8 0RF (DME) Wrist Brace Misc See Rx Instructions .MEDSUPPLY Qty: 1 0RF Rx Instructions: comfort form wrist rt s Interventions: ED Discharge Assessment Last Done: 09/24/21 22:50 Discharge Date/Time: 09/24/21 22:51 Print Language: Turkish
[2021-09-24 20:53] VITALS: BP 149/83; PULSE 96; RESP 16; O2SAT 95
== END 2021-09-24 22:51 | disposition home or self-care (01) ==
PROVIDERS: Emergency Provider Internal Medicine; PCP Internal Medicine
DX: R51.9 Headache, unspecified (principal); Z20.822 Contact with and (suspected) exposure to COVID-19; E11.22 Type 2 diabetes mellitus with diabetic chronic kidney disease; I12.9 Hypertensive chronic kidney disease with stage 1 through stage 4 chronic kidney disease, or unspecified chronic kidney disease; N18.9 Chronic kidney disease, unspecified
CPT/HCPCS: 70450; 80048; 85027; 87635; 99284

== ENCOUNTER 2021-11-17 07:18 | Emergency (ER) | payer MEDICARE, SELFPAY ==
--- NOTE | ~2021-11-17 | XR_ITS ---
EXAMINATION: RIGHT FOOT AND ANKLE X-RAY CLINICAL INFORMATION: Trauma. Heavy object fell on foot. COMPARISON: Previous x-ray February 2021 TECHNIQUE: 3 views of the right foot and 3 views of the right ankle FINDINGS: Right foot: Bone alignment is normal. No fracture or dislocation is seen. There are degenerative changes at the first IP and MTP joints. There are degenerative changes at the talar navicular joint. Joint spaces are otherwise normal. There are calcaneal spurs. There is mild soft tissue arterial calcification. Right ankle: Bone alignment is normal. No fracture or dislocation is seen. The ankle mortise is normal. There is soft tissue calcification. XR/XR foot RT min 3V IMPRESSION: No fracture or dislocation is seen. Mild degenerative changes at the first IP and MTP joints and talonavicular joint. Calcaneal spurs.
--- NOTE | ~2021-11-17 | XR_ITS ---
EXAMINATION: RIGHT FOOT AND ANKLE X-RAY CLINICAL INFORMATION: Trauma. Heavy object fell on foot. COMPARISON: Previous x-ray February 2021 TECHNIQUE: 3 views of the right foot and 3 views of the right ankle FINDINGS: Right foot: Bone alignment is normal. No fracture or dislocation is seen. There are degenerative changes at the first IP and MTP joints. There are degenerative changes at the talar navicular joint. Joint spaces are otherwise normal. There are calcaneal spurs. There is mild soft tissue arterial calcification. Right ankle: Bone alignment is normal. No fracture or dislocation is seen. The ankle mortise is normal. There is soft tissue calcification. XR/XR ankle RT 2V IMPRESSION: No fracture or dislocation is seen. Mild degenerative changes at the first IP and MTP joints and talonavicular joint. Calcaneal spurs.
[2021-11-17 07:20] VITALS: BP 135/54; PULSE 68; RESP 18; TEMP 36.1; O2SAT 98; BMI 30.1
--- NOTE | 2021-11-17 08:36 | ED.LOWEXIN ---
HPI - Extremity Injury (Lower) General Chief Complaint: Extremity Injury, Lower Stated Complaint: R foot inj Time Seen by Provider: 11/17/21 08:36 Source: patient and family (daughter) Mode of arrival: ambulatory Limitations: no limitations History of Present Illness HPI Narrative: Patient is a 71 year old female presenting to the emergency department today with right foot pain. Patient states that a door in her home fell off of its hinges and landed on her right foot. Patient states that she is concerned that it is broken. Patient denies hitting her head in the incident. Patient denies any loss of consciousness with the incident. Patient denies any dizziness, lightheadedness, abdominal pain, nausea, vomiting, fever, chills, blurry vision, double vision, loss of vision, chest pain, difficulty breathing, shortness of breath, back pain, night sweats, pain with urination, increased urinary frequency, increased urinary urgency, blood in her urine or stool, syncope or a near syncopal episode, bowel incontinence, bladder incontinence, bowel retention, bladder retention, or any other complaints at this time. MD complaint: foot injury Onset (ago): day(s) (1) Type of Injury: blunt Place: home Severity: mild Severity scale (1-10): 3 Relieving factors: nothing Exacerbating factors: nothing Context: direct blow Other symptoms: none Related Data Home Medications Medication Instructions Recorded Confirmed alendronate 70 mg tablet 70 mg PO QWEEK 05/27/20 03/20/21 allopurinol 300 mg tablet 300 mg PO DAILY 05/27/20 03/20/21 cyanocobalamin (vitamin B-12) 500 500 mcg PO DAILY 05/27/20 03/20/21 mcg tablet furosemide 40 mg tablet 40 mg PO BID 05/27/20 03/20/21 liraglutide 0.6 mg/0.1 mL (18 mg/3 1.8 mg SUBCUT DAILY 05/27/20 03/20/21 mL) subcutaneous pen injector (Victoza 3-Toby) magnesium oxide 400 mg PO DAILY 05/27/20 03/20/21 melatonin 3 mg tablet 3 mg PO BEDTIME PRN 05/27/20 03/20/21 multivitamin 1 tab PO DAILY 05/27/20 06/07/20 omega-3 fatty acids 500 mg capsule 500 mg PO DAILY 05/27/20 03/20/21 pregabalin 75 mg capsule 150 mg PO BID 05/27/20 03/20/21 simvastatin 10 mg tablet 10 mg PO BEDTIME 05/27/20 03/20/21 spironolactone 100 mg tablet 100 mg PO DAILY 05/27/20 03/20/21 tramadol 50 mg tablet 50 mg PO Q6H PRN 05/27/20 03/20/21 bupropion HCl 300 mg 24 hr tablet, 300 mg PO QAM 03/20/21 03/20/21 extended release cholecalciferol (vitamin D3) 25 25 mcg PO DAILY 03/20/21 03/20/21 mcg (1,000 unit) capsule sertraline 50 mg tablet 50 mg PO DAILY 03/20/21 03/20/21 Previous Rx's Medication Instructions Recorded acetaminophen 325 mg capsule 650 mg PO Q6H PRN #20 cap 05/30/20 arm brace (Wrist Brace) #1 ea 06/29/20 levofloxacin 250 mg tablet 250 mg PO Q24H 3 Days #3 tab 03/23/21 oxycodone 5 mg tablet 2.5 mg PO Q6H PRN #8 tab 03/23/21 triamcinolone acetonide 0.5 % 1 appl TOPICAL BID 7 Days g 03/23/21 topical ointment Allergies Allergy/AdvReac Type Severity Reaction Status Date / Time zolpidem [From AMBIEN] Allergy Severe SLEEP Verified 09/24/21 15:52 WALKING lactic acid [From LAC-HYDRIN] Allergy Intermediate RASH Verified 09/24/21 15:52 latex [Latex] Allergy Intermediate HIVES Verified 09/24/21 15:52 varenicline [From CHANTIX] Allergy Intermediate RASH Verified 09/24/21 15:52 From Benadryl Allergy Intermediate HIVES Uncoded 09/24/21 15:52 Review of Systems Constitutional: Constitutional: Reports no additional constitutional complaints, Denies chills, Denies fever(s) and Denies night sweats Eyes: Eyes: Reports no additional eye complaints, Denies blurry vision, Denies change in vision, Denies diplopia, Denies eye discharge, Denies loss of vision and Denies eye pain ENT: Denies dizziness Cardiovascular: Cardiovascular: Reports no additional cardiovascular complaints, Denies chest pain, Denies lightheadedness, Denies Loss of Consciousness and Denies dyspnea Respiratory: Respiratory: Reports no additional respiratory complaints and Denies dyspnea Gastrointestinal: Gastrointestinal: Reports no additional gastrointestinal complaints, Denies abdominal pain, Denies melena, Denies hematochezia, Denies change in bowel habits and Denies change in stool character Genitourinary: Genitourinary: Denies hematuria, Denies urinary frequency, Denies dysuria, Denies urinary incontinence, Denies urinary hesitancy and Denies urinary urgency Musculoskeletal: Musculoskeletal: Reports no additional musculoskeletal complaints, Denies numbness and Denies tingling Comments: right foot pain Neurologic: Denies dizziness, Denies loss of vision, Denies numbness and Denies tingling Psychiatric: Psychiatric: Reports no additional psychiatric complaints Endocrine: Endocrine: Reports no additional endocrine complaints Hematologic/Lymphatic: Hematologic/Lymphatic: Reports no additional hematologic/lymphatic complaints Allergic/Immunologic: Allergic/Immunologic: Reports no additional allergic/immunologic complaints PMFSH Past Medical History Attestation statement: The following information was validated with the patient. Source: old records reviewed Medical History Anxiety Carpal tunnel syndrome Cellulitis Chronic back pain CKD (chronic kidney disease) Depression Diabetes Diabetic neuropathy HTN (hypertension) Hyperlipidemia Osteoporosis Psoriasis Spondylosis Venous stasis dermatitis Surgical History H/O section S/P cervical spinal fusion Social History Social History Household Members: None Household Members Other:: daughter helps out daily Housing: Apartment Do you presently have visiting nurse or other home services: Yes (pt reports visiting nurse) Alcohol intake: never Patient Tobacco Use Status: Former Tobacco user Advance Directives: Yes Advance Directives on File: Yes Advance Directives Date on File: 06/07/20 service: No Current occupational status: unemployed Physical Exam Vital Signs: Vital Signs: Last Vital Signs Temp 97 F 11/17/21 07:20 Pulse 68 11/17/21 07:20 Resp 18 11/17/21 07:20 BP 135/54 L 11/17/21 07:20 Pulse Ox 98 11/17/21 07:20 BMI result Body Mass Index 30.1 Const: General: cooperative, no acute distress, alert and awake Nutritional Appearance: well nourished Orientation/consciousness: patient oriented x3 Limitations: no limitations HEENT: Head: Yes normal to inspection and Yes atraumatic Ears: hearing grossly normal bilaterally and external ears normal General nose exam: Normal external nose present, no nasal discharge noted and no epistaxis Face and sinus: Yes normal facial exam, No abrasion and No laceration Mouth: Normal oral and palatal mucosa present, no drooling and no muffled voice Eyes: General: appearance normal, both eyes and all related structures Periorbital: periorbital findings normal Eyelids: Yes eyelids normal Conjunctivae: conjunctivae normal Pupils: Equal, round and reactive pupils present EOM: EOMs intact bilaterally Neck: Neck: Yes normal visual inspection, Yes full ROM and Yes no lymphadenopathy Chest: Chest palpation & inspection: normal inspection of the chest Resp: Effort & Inspection: normal respiratory effort and able to speak in complete sentences Auscultation: clear to auscultation bilaterally Cardio: Rate: regular rate Rhythm: regular rhythm GI: Inspection: Yes normal to inspection Skin: Other: mild bruising to the dorsal aspect of the right foot and great toe Neuro: General: patient oriented x3 and moves all extremities Cranial nerves: Yes Equal, round and reactive pupils present Cognition (Neuro): normal cognition Motor exam (neuro): 5/5 motor strength present throughout Sensory Exam: Normal double simultaneous stimulation for sensation Coordination: [id number] test normal Extrem: General: Yes normal to inspection, Yes full ROM and Yes capillary refill normal Psych: Appearance: grossly normal Mental Status: mental status grossly normal Affect: normal affect Attitude: cooperative Thought process: Normal thought process present Thought content: Normal thought content present Insight: Good insight present (Psych) MDM - Extremity Injury (Lower) MDM Narrative Medical decision making narrative: Patient is a 71 year old female presenting to the emergency department today with right foot pain. Patient's physical exam showed mild bruising to the dorsal aspect of the right foot and great toe but was otherwise unremarkable. Patient's right foot x-ray showed no acute process. I explained my physical exam findings as well as all test results to the patient and the patient's daughter. I answered all questions asked by the patient and the patient's daughter. I stressed the importance of the patient taking her medication as prescribed. I stressed the importance of the patient following up with her primary care provider. I stressed the importance of the patient returning to the emergency department immediately if her symptoms were to worsen or if she were to develop any dizziness, shortness of breath, difficulty breathing, chest pain, blurry vision, loss of vision, nausea, vomiting, abdominal pain, fever, chills, back pain, or any other complaints. Patient and the patient's daughter verbalized agreement and understanding with this treatment plan and discharge. Differential Diagnosis Differential diagnosis: Likely fracture of toe (foot fracture) Medical Records Attestation: I reviewed the patient's medical records. Imaging Data Foot x-ray: Attestation: I personally reviewed and interpreted this imaging study as follows: My impression: No acute fracture Radiologist's impression: EXAMINATION: RIGHT FOOT AND ANKLE X-RAY CLINICAL INFORMATION: Trauma. Heavy object fell on foot.? COMPARISON: Previous x-ray February 2021? TECHNIQUE: 3 views of the right foot and 3 views of the right ankle? FINDINGS: Right foot: Bone alignment is normal. No fracture or dislocation is seen. There are degenerative changes at the first IP and MTP joints. There are degenerative changes at the talar navicular joint. Joint spaces are otherwise normal. There are calcaneal spurs. There is mild soft tissue arterial calcification. Right ankle: Bone alignment is normal. No fracture or dislocation is seen. The ankle mortise is normal. There is soft tissue calcification. XR/XR ankle RT 2V IMPRESSION: No fracture or dislocation is seen. Mild degenerative changes at the first IP and MTP joints and talonavicular joint. Calcaneal spurs. Dictated By: Linda Mcclendon MD Signed By: Electronically signed by Linda Mcclendon MD 11/17/21 0818 Discharge Plan Discharge Clinical Impression: Foot injury Patient Disposition: Home, Self-Care Instructions: Crush Injury (ED) Additional Instructions: Call to schedule a follow up appointment with an Orthopedic provider. Follow up with your primary care provider. Return to the emergency department immediately if your symptoms worsen or if you develop any dizziness, shortness of breath, difficulty breathing, chest pain, blurry vision, loss of vision, nausea, vomiting, abdominal pain, fever, chills, back pain, or any other complaints. Prescriptions: No Action tramadol 50 mg tablet 50 mg PO Q6H PRN (Reason: pain) 0RF multivitamin Tablet 1 tab PO DAILY 0RF furosemide 40 mg tablet 40 mg PO BID 0RF alendronate 70 mg tablet 70 mg PO QWEEK 0RF spironolactone 100 mg tablet 100 mg PO DAILY 0RF simvastatin 10 mg tablet 10 mg PO BEDTIME 0RF melatonin 3 mg tablet 3 mg PO BEDTIME PRN (Reason: insomnia) 0RF cyanocobalamin (vitamin B-12) 500 mcg tablet 500 mcg PO DAILY 0RF allopurinol 300 mg tablet 300 mg PO DAILY 0RF pregabalin 75 mg Capsule 150 mg PO BID 0RF omega-3 fatty acids 500 mg Capsule 500 mg PO DAILY 0RF Victoza 3-Toby 0.6 mg/0.1 mL (18 mg/3 mL) pen injector 1.8 mg subcut DAILY 0RF magnesium oxide 400 mg magnesium Tablet 400 mg PO DAILY 0RF acetaminophen 325 mg capsule 650 mg PO Q6H PRN (Reason: pain) Qty: 20 0RF sertraline 50 mg Tablet 50 mg PO DAILY 0RF cholecalciferol (vitamin D3) 25 mcg (1,000 unit) Capsule 25 mcg PO DAILY 0RF bupropion HCl 300 mg Tablet Extended Release 24 Hr 300 mg PO QAM 0RF levofloxacin 250 mg Tablet 250 mg PO Q24H 3 Days Qty: 3 0RF triamcinolone acetonide 0.5 % Ointment 1 appl topical BID 7 Days 0RF oxycodone 5 mg Tablet 2.5 mg PO Q6H PRN (Reason: pain) Qty: 8 0RF (DME) Wrist Brace Misc See Rx Instructions .MEDSUPPLY Qty: 1 0RF Rx Instructions: comfort form wrist rt s Referrals: Duane Barber MD [Physician] - 2 days (Follow up with orthopedics as needed. ) Ranjeet Rushing MD [Primary Care Provider] - 2 days Interventions: ED Discharge Assessment Last Done: 11/17/21 08:43 Discharge Date/Time: 11/17/21 08:44 Print Language: Jordanian
== END 2021-11-17 08:44 | disposition home or self-care (01) ==
PROVIDERS: Emergency Provider Emergency Medicine; PCP Internal Medicine
DX: S99.921A Unspecified injury of right foot, initial encounter (principal); W20.8XXA Other cause of strike by thrown, projected or falling object, initial encounter; Y93.9 Activity, unspecified; Y92.039 Unspecified place in apartment as the place of occurrence of the external cause; Y99.9 Unspecified external cause status
CPT/HCPCS: 73600; 73630; 99283

== ENCOUNTER 2022-02-09 15:58 | Emergency (ER) | payer MEDICARE, SELFPAY ==
--- NOTE | ~2022-02-09 | CT_ITS ---
EXAMINATION: CT ABDOMEN AND PELVIS WITHOUT CONTRAST CLINICAL INFORMATION: Left abdominal pain COMPARISON: CT abdomen and pelvis 09/11/2017 TECHNIQUE: Multidetector volumetric imaging was performed from the superior aspect of the liver through the pubic symphysis. Sagittal and coronal reformatted images were obtained on the technologist's workstation. This CT examination was performed using dose optimization techniques as appropriate, variously including the following: *Automated exposure control *Adjustment of mA and/or kV according to patient size (this includes techniques or standardized protocols for targeted exams where dose is matched to indication/reason for exam; i.e. extremities or head) *Use of iterative reconstruction technique DLP: 710 mGy-cm FINDINGS: LUNG BASES: Unchanged small 5 mm pleural-based nodule in the left lower lobe since 2018 compatible with benign etiology. Bibasilar subsegmental atelectasis or scarring. Extensive three-vessel coronary artery vascular calcifications. No pleural or pericardial effusions. LIVER, GALLBLADDER, AND BILIARY TREE: Normal hepatic attenuation. No evidence of cirrhosis. Couple small calcified granulomas the right hepatic dome as on prior. No other liver lesions. No biliary ductal dilation. The gallbladder is unremarkable with no evidence of radiopaque gallstones, gallbladder wall thickening, or obvious pericholecystic inflammatory changes. PANCREAS: Unremarkable. SPLEEN: Unremarkable. ADRENAL GLANDS: Unremarkable. KIDNEYS AND URETERS: Slight fullness the right renal collecting system. Several nonobstructing bilateral renal calculi including two 9 mm calculi in the mid and lower pole of the right kidney and 4 mm right lower pole calculus. There are 2 nonobstructing left renal calculi within the upper pole measuring 4 mm, the other in the lower pole measuring 7 mm. Mild fullness the right renal collecting system. No ureteral calculus. No significant hydronephrosis. 2.9 cm low-density lesion in the posterior interpolar left kidney, too small to characterize though likely a small cyst. No other renal lesions. Couple small bubbles of gas in the right upper pole calyces. No significant perinephric stranding. BLADDER: Markedly distended. No bladder wall thickening. GASTROINTESTINAL TRACT: Moderate amount of formed stool throughout the redundant colon. No dilated bowel loops. No bowel wall thickening. Appendix is unremarkable. No ascites or free air. ABDOMINAL WALL: Fat-containing umbilical hernia. LYMPH NODES: No lymphadenopathy. VASCULAR: Extensive atherosclerotic vascular calcifications. Since of course calcifications of the left renal artery origin. No abdominal aortic aneurysm. PELVIC VISCERA: Bilateral ovoid shaped low-density adnexal cysts measuring 3.3 and 2.6 cm on the left and 4.7 cm on the right. The right adnexal lesion is new since prior. Gynecologic structures otherwise grossly unremarkable. No free pelvic fluid. OSSEOUS STRUCTURES: Chronic/healed left lower rib fracture deformities and left pubic rami fracture deformities. Unchanged superior plate compression deformities of L3 and L4 and inferior endplate Schmorl's node deformity at L1. Unchanged superior endplate compression deformity at T12. Chronic height loss of T7 and T8. Multilevel degenerative disc disease and abundant facet arthrosis. No acute fracture or suspicious osseous lesion. CT/CT abdomen pelvis wo con IMPRESSION: 1. No acute intra-abdominal process identified. 2. Moderate amount of formed stool throughout the nondilated colon. Correlate clinically with signs or symptoms of constipation. 3. Bilateral nonobstructing bilateral renal calculi measuring up to 0.9 cm in size, as detailed above. 4. Bilateral adnexal cysts in this postmenopausal patient, largest approximately 4.7 cm in size on the right side. Suggest pelvic ultrasound for further evaluation per ACR guidelines 2013. The left adnexal cysts were present previously. 5. A couple small bubbles of gas in the right renal collecting system, nonspecific and not accompanied by perinephric fat stranding. Correlate with history of recent catheterization, which in the setting of vesicoureteral reflux could account for the finding. Also correlate with UA to exclude urinary tract infection. 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 6. Multiple additional ancillary findings, as described.
[2022-02-09 16:31] VITALS: BP 141/70; PULSE 89; RESP 16; TEMP 36.3; O2SAT 96; BMI 30.4
[2022-02-09 16:49] LABS: Hematocrit 39.4 % (37.0-47.0); Hemoglobin 12.9 g/dl (12.0-16.0); Mean Corpuscular HGB Conc 32.7 g/dl (31.0-35.0); Mean Corpuscular Hemoglobin 30.4 pg (27.0-33.0); Mean Corpuscular Volume 92.9 fL (80.0-98.0); Mean Platelet Volume 11.8 fL (9.4-12.3); Platelet Count 169 X10*3/uL (160-400); Red Blood Count 4.24 X10*6/uL (4.20-5.50); White Blood Count 8.2 X10*3/uL (4.8-10.8)
[2022-02-09 17:05] LABS: Anion Gap 11 (12-20); Blood Urea Nitrogen 22 mg/dL (9-16); Carbon Dioxide 32 mmol/L (22-29); Chloride 100 mmol/L (96-108); Creatinine Clr Calc Pharmacy 34.3; Estimated Glomerular Filt Rate 36; Glucose Random 137 mg/dL (60-115); Potassium 4.6 mmol/L (3.3-5.1); Sodium 138 mmol/L (135-145)
[2022-02-09 17:51] LABS: Appearance Urine HAZY; Color Urine YELLOW; Glucose Urine UA NEG (NEG); Leukocyte Esterase Urine 1+ (NEG); Nitrite Urine POS (NEG); UACC Culture Trigger YES; Urine Blood NEG (NEG); Urine Ketones NEG (NEG); Urine Protein TRACE MG/DL (NEG-TRACE)
[2022-02-09 18:00] LABS: Bacteria Urine 3+ /LPF; RBC Urine 0-2 /HPF (0); Squamous Epithelial Cell Urine 1+ /LPF; UACC CULT YES
--- NOTE | 2022-02-09 21:18 | ED.GENADULT ---
HPI - General Adult General Chief complaint: Abdominal Pain Stated complaint: left side pain Time Seen by Provider: 02/09/22 21:12 Source: patient and family Limitations: no limitations History of Present Illness HPI narrative: This is a 71-year-old female who has had left-sided abdominal pain for a few weeks. Patient was seen at an urgent care today and was found to have UTI and referred here as there was concern for possible kidney infection. Patient denies any fever. She denies any nausea or vomiting. Her appetite has been fair. She denies any constipation or diarrhea. The patient's daughter states that she has chronic pain in various places. Related Data Home Medications Medication Instructions Recorded Confirmed alendronate 70 mg tablet 70 mg PO QWEEK 05/27/20 03/20/21 allopurinol 300 mg tablet 300 mg PO DAILY 05/27/20 03/20/21 cyanocobalamin (vitamin B-12) 500 500 mcg PO DAILY 05/27/20 03/20/21 mcg tablet furosemide 40 mg tablet 40 mg PO BID 05/27/20 03/20/21 liraglutide 0.6 mg/0.1 mL (18 mg/3 1.8 mg subcut DAILY 05/27/20 03/20/21 mL) subcutaneous pen injector (Storeeza 3-Toby) magnesium oxide 400 mg PO DAILY 05/27/20 03/20/21 melatonin 3 mg tablet 3 mg PO BEDTIME PRN insomnia 05/27/20 03/20/21 multivitamin 1 tab PO DAILY 05/27/20 06/07/20 omega-3 fatty acids 500 mg capsule 500 mg PO DAILY 05/27/20 03/20/21 pregabalin 75 mg capsule 150 mg PO BID 05/27/20 03/20/21 simvastatin 10 mg tablet 10 mg PO BEDTIME 05/27/20 03/20/21 spironolactone 100 mg tablet 100 mg PO DAILY 05/27/20 03/20/21 tramadol 50 mg tablet 50 mg PO Q6H PRN pain 05/27/20 03/20/21 bupropion HCl 300 mg 24 hr tablet, 300 mg PO QAM 03/20/21 03/20/21 extended release cholecalciferol (vitamin D3) 25 25 mcg PO DAILY 03/20/21 03/20/21 mcg (1,000 unit) capsule sertraline 50 mg tablet 50 mg PO DAILY 03/20/21 03/20/21 Previous Rx's Medication Instructions Recorded acetaminophen 325 mg capsule 650 mg PO Q6H PRN pain #20 caps 05/30/20 arm brace (Wrist Brace) #1 ea 06/29/20 levofloxacin 250 mg tablet 250 mg PO Q24H 3 days #3 tabs 03/23/21 oxycodone 5 mg tablet 2.5 mg PO Q6H PRN pain #8 tabs 03/23/21 triamcinolone acetonide 0.5 % 1 appl topical BID 7 days 03/23/21 topical ointment cefdinir 300 mg capsule 300 mg PO BID #14 caps 02/09/22 polyethylene glycol 3350 17 17 g PO BID PRN constipation #119 02/09/22 gram/dose oral powder (Miralax) grams Allergies Allergy/AdvReac Type Severity Reaction Status Date / Time zolpidem [From AMBIEN] Allergy Severe SLEEP Verified 09/24/21 15:52 WALKING lactic acid [From LAC-HYDRIN] Allergy Intermediate RASH Verified 09/24/21 15:52 latex [Latex] Allergy Intermediate HIVES Verified 09/24/21 15:52 varenicline [From CHANTIX] Allergy Intermediate RASH Verified 09/24/21 15:52 From Benadryl Allergy Intermediate HIVES Uncoded 09/24/21 15:52 Review of Systems Review of Systems: Yes all other systems are reviewed and are negative Constitutional: Constitutional: Reports as per HPI and Denies fever(s) Eyes: Eyes: Reports as per HPI and Reports no additional eye complaints ENT: Reports system reviewed and no additional complaints, except as documented, Reports as per HPI, Denies nasal congestion, Denies nasal discharge and Denies sore throat Cardiovascular: Cardiovascular: Reports as per HPI, Denies chest pain and Denies dyspnea Respiratory: Respiratory: Reports as per HPI, Denies cough and Denies dyspnea Gastrointestinal: Gastrointestinal: Reports as per HPI, Reports abdominal pain, Denies diarrhea and Denies vomiting Genitourinary: Genitourinary: Reports as per HPI, Denies hematuria, Denies urinary frequency and Denies dysuria Musculoskeletal: Musculoskeletal: Reports no additional musculoskeletal complaints and Denies numbness Integumentary/Breasts: Skin/Breast: Reports as per HPI and Denies rash Neurologic: Reports as per HPI, Denies focal weakness and Denies numbness Psychiatric: Psychiatric: Reports no additional psychiatric complaints and Reports as per HPI Endocrine: Endocrine: Reports no additional endocrine complaints and Reports as per HPI Hematologic/Lymphatic: Hematologic/Lymphatic: Reports no additional hematologic/lymphatic complaints, Reports as per HPI and Reports other (No peripheral edema) [facility] Past Medical History Medical History Anxiety Carpal tunnel syndrome Cellulitis Chronic back pain CKD (chronic kidney disease) Depression Diabetes Diabetic neuropathy HTN (hypertension) Hyperlipidemia Osteoporosis Psoriasis Spondylosis Venous stasis dermatitis Surgical History H/O section S/P cervical spinal fusion Social History Social History Household Members: None Household Members Other:: daughter helps out daily Housing: Apartment Do you presently have visiting nurse or other home services: Yes (pt reports visiting nurse) Alcohol intake: never Patient Tobacco Use Status: Former Tobacco user Advance Directives: Yes Advance Directives on File: Yes Advance Directives Date on File: 06/07/20 service: No Current occupational status: unemployed Physical Exam ED Vital Signs: Vital Signs - 24 hr 02/09/22 16:31 Temperature 97.4 F Pulse Rate 89 Respiratory Rate 16 Blood Pressure 141/70 H Pulse Oximetry 96 Oxygen Delivery Method Room Air BMI result Body Mass Index 30.4 Const General: no acute distress Orientation/consciousness: patient oriented x3 HENMT Head: Yes normal to inspection General nose exam: Normal external nose present Mouth: moist mucous membranes Throat: Yes posterior oropharynx normal, Yes tonsils normal and Yes uvula midline Eyes Eyelids: Yes eyelids normal Conjunctivae: conjunctivae normal Pupils: Equal, round and reactive pupils present Neck Neck: Yes supple Resp Effort & Inspection: normal respiratory effort Auscultation: clear to auscultation bilaterally Cardio Rate: regular rate Rhythm: regular rhythm Heart sounds: S1 normal heart sound present, S2 normal heart sound present, no gallops, no murmurs and no rubs GI Inspection: No distended Palpation (GI): Soft to palpation and Tenderness to palpation present (GI) (Tender left upper and lower quadrants) Auscultation: normal bowel sounds Skin General skin exam: other (Warm and dry) Neuro General: patient oriented x3 and CN's II-XI intact bilaterally Cranial nerves: Yes Equal, round and reactive pupils present Extrem General: Yes no pedal edema Psych Affect: normal affect Attitude: cooperative Medical Decision Making [facility] Narrative Medical decision making narrative: Patient with left-sided abdominal pain for a few weeks and, had evidence of a UTI found at urgent care and was sent in for possible kidney infection. Patient is not ill-appearing, was afebrile, with a normal white blood cell count. Urinalysis did show evidence of UTI. Patient did have left-sided abdominal tenderness and for this reason a CT scan was done. Patient was found to have constipation on CT scan, also adnexal cysts and renal stones but no ureteral stone. Patient's creatinine is mildly elevated but has been at the same level previously. Patient was given normal saline 1 L IV, Rocephin 1 g IV and will be treated as an outpatient for UTI with cefdinir for 7 days, also prescribed MiraLax for constipation, and advised to follow up regarding her adnexal cyst Lab Data Lab results reviewed: Yes I reviewed the patient's lab results. Result diagrams: 02/09/22 16:43 02/09/22 16:43 Labs: Lab Results 02/09/22 02/09/22 02/09/22 Range/Units 16:43 16:43 17:34 WBC 8.2 (4.8-10.8) X10*3/uL RBC 4.24 (4.20-5.50) X10*6/uL Hgb 12.9 (12.0-16.0) g/dl Hct 39.4 (37.0-47.0) % MCV 92.9 (80.0-98.0) fL MCH 30.4 (27.0-33.0) pg MCHC 32.7 (31.0-35.0) g/dl RDW 16.0 (11.0-16.0) % Plt Count 169 (160-400) X10*3/uL MPV 11.8 (9.4-12.3) fL Absolute Nucleated RBC 0.000 (0.0-0.012) X10*3/uL Nucleated RBC % (auto) 0.0 (0.0-0.2) /100WBC Sodium 138 (135-145) mmol/L Potassium 4.6 (3.3-5.1) mmol/L Chloride 100 (96-108) mmol/L Carbon Dioxide 32 H (22-29) mmol/L Anion Gap 11 L (12-20) BUN 22 H (9-16) mg/dL Creatinine 1.44 H (0.5-1.4) mg/dL Estim Creat Clear Calc 34.3 Estimated GFR 36 Random Glucose 137 H (60-115) mg/dL Calcium 9.0 D (8.4-10.2) mg/dL Urine Color YELLOW Urine Appearance HAZY Urine pH 7.0 (5.0-8.0) Ur Specific [place] 1.010 (1.005-1.025) Urine Protein TRACE (NEG-TRACE) MG/DL Urine Glucose (UA) NEG (NEG) MG/DL Urine Ketones NEG (NEG) MG/DL Urine Blood NEG (NEG) Urine Nitrite POS H (NEG) Ur Leukocyte Esterase 1+ H (NEG) Urine RBC 0-2 (0) /HPF Urine WBC 10-14 H (0-4) /HPF Ur Squamous Epith Cells 1+ /LPF Urine Bacteria 3+ /LPF Discharge Plan Discharge Clinical Impression: Acute UTI, Constipation, Adnexal cyst, Bilateral renal stones Patient Disposition: Home, Self-Care Instructions: Constipation (ED), Urinary Tract Infection in Older Adults (ED) Additional Instructions: Take antibiotics as prescribed. Use MiraLax for constipation as prescribed. Follow-up with primary care physician regarding your adnexal (probably ovarian) cysts, if these have not been previously known. Return for any new or worsened symptoms. Prescriptions: New cefdinir 300 mg capsule 300 mg PO BID Qty: 14 0RF polyethylene glycol 3350 [Miralax] 17 gram/dose powder 17 g PO BID PRN (Reason: constipation) Qty: 119 0RF No Action tramadol 50 mg tablet 50 mg PO Q6H PRN (Reason: pain) multivitamin Tablet 1 tab PO DAILY furosemide 40 mg tablet 40 mg PO BID alendronate 70 mg tablet 70 mg PO QWEEK spironolactone 100 mg tablet 100 mg PO DAILY simvastatin 10 mg tablet 10 mg PO BEDTIME melatonin 3 mg tablet 3 mg PO BEDTIME PRN (Reason: insomnia) cyanocobalamin (vitamin B-12) 500 mcg tablet 500 mcg PO DAILY allopurinol 300 mg tablet 300 mg PO DAILY pregabalin 75 mg Capsule 150 mg PO BID omega-3 fatty acids 500 mg Capsule 500 mg PO DAILY Victoza 3-Toby 0.6 mg/0.1 mL (18 mg/3 mL) pen injector 1.8 mg subcut DAILY magnesium oxide 400 mg magnesium Tablet 400 mg PO DAILY acetaminophen 325 mg capsule 650 mg PO Q6H PRN (Reason: pain) Qty: 20 0RF sertraline 50 mg Tablet 50 mg PO DAILY cholecalciferol (vitamin D3) 25 mcg (1,000 unit) Capsule 25 mcg PO DAILY bupropion HCl 300 mg Tablet Extended Release 24 Hr 300 mg PO QAM levofloxacin 250 mg Tablet 250 mg PO Q24H 3 Days Qty: 3 0RF triamcinolone acetonide 0.5 % Ointment 1 appl topical BID 7 Days 0RF oxycodone 5 mg Tablet 2.5 mg PO Q6H PRN (Reason: pain) Qty: 8 0RF (DME) Wrist Brace Misc See Rx Instructions .MEDSUPPLY Qty: 1 0RF Rx Instructions: comfort form wrist rt s Interventions: ED Discharge Assessment Last Done: 02/09/22 22:48 Discharge Date/Time: 02/09/22 22:49
[2022-02-09] MEDS: 0.9 % Sodium Chloride 1,000 ML 999 ML IV (21:47)
[2022-02-09] MEDS: cefTRIAXone sodium 1 GM in 0.9 % Sodium Chloride 50 ML IV (21:47)
== END 2022-02-09 22:49 | disposition home or self-care (01) ==
PROVIDERS: Emergency Provider Emergency Medicine; PCP Internal Medicine
DX: N39.0 Urinary tract infection, site not specified (principal); N20.0 Calculus of kidney; R10.9 Unspecified abdominal pain; N28.1 Cyst of kidney, acquired; Z79.899 Other long term (current) drug therapy
CPT/HCPCS: 36415; 74176; 80048; 81001; 85027; 87086; 96365; 99282; 99284; J0696

== ENCOUNTER 2022-03-07 08:13 | Inpatient (IN) | payer MEDICARE, SELFPAY ==
[2022-03-07] VITALS (10 sets, daily range): BP systolic 115–152; BP diastolic 50–74; PULSE 87–113; RESP 16–25; TEMP 36.8–39; O2SAT 86–97; BMI 31.1
--- NOTE | ~2022-03-07 | XR_ITS ---
EXAMINATION: XR CHEST CLINICAL INFORMATION: Shortness of breath. Hypoxia. Fever. COMPARISON: March 20, 2021. TECHNIQUE: Portable AP view of the chest was obtained. XR/XR chest 1V FINDINGS/IMPRESSION: The study is limited by portable technique, low lung volumes, rotation, and the chin overlying the right apex. The right hemidiaphragm is mildly elevated. Small bibasilar patchy densities may represent atelectasis and/or infiltrates. No consolidation, effusion, pneumothorax is seen. The cardiac silhouette is poorly evaluated. The aorta is atherosclerotic. There are degenerative changes of the spine, with thoracolumbar levocurvature. There are degenerative changes of the shoulders. A lower cervical spinal metallic anterior fixation plate and screws are partially imaged.
--- NOTE | 2022-03-07 08:30 | ECG_ITS ---
Test Reason : tachycardia Blood Pressure : / mmHG Vent. Rate : 103 BPM Atrial Rate : 103 BPM P-R Int : 154 ms QRS Dur : 088 ms QT Int : 356 ms P-R-T Axes : 034 -66 061 degrees QTc Int : 466 ms Sinus tachycardia Left axis deviation Septal infarct (cited on or before 05-SEP-2021) Inferior infarct , age undetermined Abnormal ECG When compared with ECG of 05-SEP-2021 23:31, Inferior infarct is now Present Questionable change in initial forces of Anterior leads Referred By: Soila Liu Electronically Signed By:SALMA RUIZ MD
--- NOTE | 2022-03-07 08:33 | ED.SOB ---
HPI - SOB/Dyspnea General Chief Complaint: Dyspnea Stated Complaint: ABD PAIN,SOB,90% RA,97% ON A DUONEB PER EMS Time Seen by Provider: 03/07/22 08:30 Source: patient, family, EMS and RN notes reviewed Mode of arrival: EMS Limitations: no limitations History of Present Illness HPI Narrative: 71 yo female with history of COPD, chronic pain, DM on insulin, hx UTIs, lower extremity edema, psoriasis, depression, HTN, osteoarthritis, varicose veins, CKD 3, lower extremity cellulitis, venous stasis, cervical radiculopathy who presents to the ER for evaluation after she was found slumped over at home by her daughter, diaphoretic and covered in thick phlegm all over her chest after she had a coughing fit. Patient's daughter assists in providing history. She states her mother lives home alone and she usually calls her every morning to check in. There was no answer when she called this morning. Her neighbor went over to bring her usual cup of coffee and the neighbor found her ?slumped over? & confused at the kitchen table. The daughter reports she sometimes falls asleep at the kitchen table. When the daughter got there she was worried about the phlegm on her pajamas. EMS was called. Of note the patient's daughter reports she has been more unsteady on her feet lately and having a harder time ambulating around her home. She has been shaky. EMS reports the patient was saturating 90% on room air. She was not having difficulty breathing. She was placed on supplemental oxygen and brought to the ER for further evaluation. MD elicited complaint: shortness of breath and cough Pertinent past history: COPD Onset (ago): unknown Timing: improved Severity: moderate Exacerbating factors: nothing Relieving factors: oxygen, rest and bronchodilators Known history of: COPD and diabetes Associated symptoms: fever, cough, sputum production, lower extremity pain, diaphoresis, abdominal pain and chest congestion Treatment prior to arrival: oxygen Related Data Home oxygen amount: none Home Medications Medication Instructions Recorded Confirmed alendronate 70 mg tablet 70 mg PO QWEEK 05/27/20 03/20/21 allopurinol 300 mg tablet 300 mg PO DAILY 05/27/20 03/20/21 cyanocobalamin (vitamin B-12) 500 500 mcg PO DAILY 10/03/20 07/27/21 mcg tablet furosemide 40 mg tablet 40 mg PO BID 05/27/20 03/20/21 liraglutide 0.6 mg/0.1 mL (18 mg/3 1.8 mg subcut DAILY 05/27/20 03/20/21 mL) subcutaneous pen injector (Victoza 3-Toby) magnesium oxide 400 mg PO DAILY 05/27/20 03/20/21 melatonin 3 mg tablet 3 mg PO BEDTIME PRN insomnia 05/27/20 03/20/21 multivitamin 1 tab PO DAILY 05/27/20 06/07/20 omega-3 fatty acids 500 mg capsule 500 mg PO DAILY 05/27/20 03/20/21 pregabalin 75 mg capsule 150 mg PO BID 05/27/20 03/20/21 simvastatin 10 mg tablet 10 mg PO BEDTIME 05/27/20 03/20/21 spironolactone 100 mg tablet 100 mg PO DAILY 05/27/20 03/20/21 tramadol 50 mg tablet 50 mg PO Q6H PRN pain 05/27/20 03/20/21 bupropion HCl 300 mg 24 hr tablet, 300 mg PO QAM 03/20/21 03/20/21 extended release cholecalciferol (vitamin D3) 25 25 mcg PO DAILY 03/20/21 03/20/21 mcg (1,000 unit) capsule sertraline 50 mg tablet 50 mg PO DAILY 03/20/21 03/20/21 fluvoxamine 100 mg tablet 1 tab PO BID 03/07/22 hydrocortisone 2.5 % topical cream 1 appl topical TID 03/07/22 insulin aspart U-100 100 unit/mL ea subcut 03/07/22 (3 mL) subcutaneous pen (Novolog Flexpen U-100 Insulin aspart) insulin degludec 200 unit/mL (3 65 unit subcut DAILY 03/07/22 mL) subcutaneous pen (Tresiba FlexTouch U-200 insulin) lidocaine 5 % topical patch 1 patch topical DAILY 03/07/22 risankizumab-rzaa 150 mg/mL ea subcut 03/07/22 subcutaneous pen injector (Skyrizi) Previous Rx's Medication Instructions Recorded acetaminophen 325 mg capsule 650 mg PO Q6H PRN pain #20 caps 05/30/20 arm brace (Wrist Brace) #1 ea 06/29/20 levofloxacin 250 mg tablet 250 mg PO Q24H 3 days #3 tabs 03/23/21 oxycodone 5 mg tablet 2.5 mg PO Q6H PRN pain #8 tabs 03/23/21 triamcinolone acetonide 0.5 % 1 appl topical BID 7 days 03/23/21 topical ointment polyethylene glycol 3350 17 17 g PO BID PRN constipation #119 02/09/22 gram/dose oral powder (Miralax) grams Allergies Allergy/AdvReac Type Severity Reaction Status Date / Time zolpidem [From AMBIEN] Allergy Severe SLEEP Verified 09/24/21 15:52 WALKING lactic acid [From LAC-HYDRIN] Allergy Intermediate RASH Verified 09/24/21 15:52 latex [Latex] Allergy Intermediate HIVES Verified 09/24/21 15:52 varenicline [From CHANTIX] Allergy Intermediate RASH Verified 09/24/21 15:52 From Benadryl Allergy Intermediate HIVES Uncoded 09/24/21 15:52 Review of Systems Review of Systems: Constitutional: + Fever, No Chills ENT/Mouth: No sore throat, No Rhinorrhea, No Swallowing Difficulty Eyes: No Eye Pain, No Swelling, No Redness Cardiovascular: No Chest Pain, No SOB, No Orthopnea, + Edema Respiratory: + Cough, + Sputum, No Wheezing, No dyspnea Gastrointestinal: No Nausea, No Vomiting, No Diarrhea, + abdominal Pain (last night) Genitourinary: No Dysuria, No Urinary Frequency, No Hematuria Musculoskeletal: No joint pain, No Myalgias Skin: No Skin Lesions, No rash Neuro: + Weakness, No Numbness, No Dizziness, No Headache Psych: No Anxiety/Panic, No Depression Heme/Lymph: No Bruising, No Lymphadenopathy Endocrine: No Polyuria, No Polydipsia [facility] Past Medical History Medical History Anxiety Carpal tunnel syndrome Cellulitis Chronic back pain CKD (chronic kidney disease) Depression Diabetes Diabetic neuropathy HTN (hypertension) Hyperlipidemia Osteoporosis Psoriasis Spondylosis Venous stasis dermatitis Surgical History H/O section S/P cervical spinal fusion Social History Social History Household Members: None Household Members Other:: daughter helps out daily Housing: Apartment Do you presently have visiting nurse or other home services: Yes (pt reports visiting nurse) Alcohol intake: never Patient Tobacco Use Status: Former Tobacco user Advance Directives: Yes Advance Directives on File: Yes Advance Directives Date on File: 06/07/20 service: No Current occupational status: unemployed Physical Exam Vital Signs: Vital Signs: Last Vital Signs Temp 98.5 F 03/07/22 11:45 Pulse 93 03/07/22 11:45 Resp 19 03/07/22 11:45 BP 115/55 L 03/07/22 11:45 Pulse Ox 97 03/07/22 11:45 O2 Del Method 03/07/22 11:45 O2 Flow Rate 3 03/07/22 11:45 BMI result Body Mass Index 31.1 Appearance: Alert elderly female sitting up in the stretcher.. Oriented X2. No acute distress. Eyes: Pupils equal, round and reactive to light. ENT: Pharynx normal. Neck: Normal inspection. Neck supple. CVS: Tachycardiac, regular rhythm. Pulses normal. Respiratory: No respiratory distress. Breath sounds with rhonchi in RLL, coarse throughout Abdomen: Obese, Soft and nontender. +BS x4 Skin: Skin warm and dry. Normal skin color. Normal skin turgor. No rashes. Extremities: trace LE edema, mild erythema and warmth of the distal RLE. no calf tenderness. multiple small, round chronic wounds on the anterior bilateral LE Neuro: Oriented X 2. No motor deficit. No sensory deficit. Course Course Course Narrative: 71-year-old female with a history of multiple medical problems including COPD, diabetes, HTN, HLD, history of UTI, venous insufficiency with history of lower extremity cellulitis, chronic pain who presents to the ER from home after she was found confused, slumped over and covered in phlegm by her neighbor. She was hypoxic 90%. She was placed on oxygen and brought to the ER. On arrival to the ER patient is saturating 95% on 3 L nasal cannula. She has rhonchi in her right middle and right lower lobe. She is not in any respiratory distress. She is febrile to 102 and tachycardic to the 110's. BP is stable. Concern for infection. Concern for possible pneumonia. She also has a history of UTI with foul smelling brief that was removed. Will straight cath for urinalysis, check basic labs and septic workup. IV fluids ordered. Will order empiric Rocephin for possible UTI. Will brought in with azithromycin if there is evidence of community-acquired pneumonia on her chest x-ray. Anticipate admission Reevaluation(s) Reevaluation #1: WBC 18.3. Renal function near her baseline, BUN/Cr 31/1.56 from 15/09.44 about a month ago. Will give 1L IVF. Fever improved with Tylenol. CXR read is pending but no obvious lobar pneumonia on x-ray, she has a chronically elevated hemidiaphragm with some small bibasilar effusions Reevaluation #2: UA positive for infection. Covered with rocephin. Last 2 urine cultures had multiple bacterial morphotypes Patient now requiring 5 L nasal cannula to maintain oxygen saturations of 90%. She is more lethargic. VBG has been ordered. Reevaluation #3: VBG normal. weaned back down to 2L NC. Will plan for admission for further management. MDM - SOB/Dyspnea Medical Records Attestation: I reviewed the patient's medical records. Lab Data Attestation: I reviewed the patient's lab results. Result diagrams: 03/07/22 08:38 03/07/22 08:38 Labs: Lab Results 03/07/22 03/07/22 03/07/22 Range/Units 08:38 08:38 08:38 WBC 18.3 H (4.8-10.8) X10*3/uL RBC 4.41 (4.20-5.50) X10*6/uL Hgb 13.5 (12.0-16.0) g/dl Hct 41.0 (37.0-47.0) % MCV 93.0 (80.0-98.0) fL MCH 30.6 (27.0-33.0) pg MCHC 32.9 (31.0-35.0) g/dl RDW 15.3 (11.0-16.0) % Plt Count 164 (160-400) X10*3/uL MPV 12.0 (9.4-12.3) fL Immature Gran % (Auto) 0.5 H (0.0-0.4) % Neut % (Auto) 89.8 H (45-73) % Lymph % (Auto) 3.1 L (20-40) % [place] % (Auto) 6.5 (2-11) % Eos % (Auto) 0.0 (0-4) % Baso % (Auto) 0.1 (0-2) % Lymph # (Auto) 0.6 L (1.2-4.9) X10*3/uL [place] # (Auto) 1.2 (0.1-1.2) X10*3/uL Eos # (Auto) 0.0 (0.0-0.4) X10*3/uL Baso # (Auto) 0.0 (0.0-0.2) X10*3/uL Abs Immat Gran (auto) 0.10 H (0.00-0.03) X10*3/uL Absolute Neuts (auto) 16.4 H (2.0-8.3) x10*3/uL Absolute Nucleated RBC 0.000 (0.0-0.012) X10*3/uL Nucleated RBC % (auto) 0.0 (0.0-0.2) /100WBC VBG pH (7.32-7.43) VBG pCO2 mmHg VBG pO2 mmHg VBG HCO3 (22-26) mmol/L VBG O2 Saturation % VBG Base Excess mmol/L Sodium 137 (135-145) mmol/L Potassium 4.4 (3.3-5.1) mmol/L Chloride 100 (96-108) mmol/L Carbon Dioxide 30 H (22-29) mmol/L Anion Gap 11 L (12-20) BUN 31 H (9-16) mg/dL Creatinine 1.56 H (0.5-1.4) mg/dL Estim Creat Clear Calc 32.0 Estimated GFR 33 Random Glucose 275 H (60-115) mg/dL Lactic Acid (0.5-2.0) mmol/L Calcium 9.5 (8.4-10.2) mg/dL Magnesium 1.9 (1.6-2.6) mg/dL Total Bilirubin 0.7 (0.0-1.0) mg/dL Direct Bilirubin 0.3 (0.0-0.5) mg/dL AST 26 (5-31) U/L ALT 26 (0-31) U/L Alkaline Phosphatase 88 D (39-117) U/L Troponin I High Sens 11.8 D (<3.5-17.0) ng/L B-Natriuretic Peptide (<100) pg/mL Total Protein 6.2 L (6.5-8.0) g/dL Albumin 3.7 (3.5-5.0) g/dL Procalcitonin ng/mL Urine Color Urine Appearance Urine pH (5.0-8.0) Ur Specific [place] (1.005-1.025) Urine Protein (NEG-TRACE) MG/DL Urine Glucose (UA) (NEG) MG/DL Urine Ketones (NEG) MG/DL Urine Blood (NEG) Urine Nitrite (NEG) Ur Leukocyte Esterase (NEG) Urine RBC (0) /HPF Urine WBC (0-4) /HPF Ur Squamous Epith Cells /LPF Urine Bacteria /LPF Hyaline Casts /LPF Urine Yeast /HPF COVID-19 ([facility]) (Negative) COVID-19 Clin Com 03/07/22 03/07/22 03/07/22 Range/Units 08:39 08:39 08:39 WBC (4.8-10.8) X10*3/uL RBC (4.20-5.50) X10*6/uL Hgb (12.0-16.0) g/dl Hct (37.0-47.0) % MCV (80.0-98.0) fL MCH (27.0-33.0) pg MCHC (31.0-35.0) g/dl RDW (11.0-16.0) % Plt Count (160-400) X10*3/uL MPV (9.4-12.3) fL Immature Gran % (Auto) (0.0-0.4) % Neut % (Auto) (45-73) % Lymph % (Auto) (20-40) % [place] % (Auto) (2-11) % Eos % (Auto) (0-4) % Baso % (Auto) (0-2) % Lymph # (Auto) (1.2-4.9) X10*3/uL [place] # (Auto) (0.1-1.2) X10*3/uL Eos # (Auto) (0.0-0.4) X10*3/uL Baso # (Auto) (0.0-0.2) X10*3/uL Abs Immat Gran (auto) (0.00-0.03) X10*3/uL Absolute Neuts (auto) (2.0-8.3) x10*3/uL Absolute Nucleated RBC (0.0-0.012) X10*3/uL Nucleated RBC % (auto) (0.0-0.2) /100WBC VBG pH (7.32-7.43) VBG pCO2 mmHg VBG pO2 mmHg VBG HCO3 (22-26) mmol/L VBG O2 Saturation % VBG Base Excess mmol/L Sodium (135-145) mmol/L Potassium (3.3-5.1) mmol/L Chloride (96-108) mmol/L Carbon Dioxide (22-29) mmol/L Anion Gap (12-20) BUN (9-16) mg/dL Creatinine (0.5-1.4) mg/dL Estim Creat Clear Calc Estimated GFR Random Glucose (60-115) mg/dL Lactic Acid 1.1 (0.5-2.0) mmol/L Calcium (8.4-10.2) mg/dL Magnesium (1.6-2.6) mg/dL Total Bilirubin (0.0-1.0) mg/dL Direct Bilirubin (0.0-0.5) mg/dL AST (5-31) U/L ALT (0-31) U/L Alkaline Phosphatase (39-117) U/L Troponin I High Sens (<3.5-17.0) ng/L B-Natriuretic Peptide 30 (<100) pg/mL Total Protein (6.5-8.0) g/dL Albumin (3.5-5.0) g/dL Procalcitonin 0.39 ng/mL Urine Color Urine Appearance Urine pH (5.0-8.0) Ur Specific [place] (1.005-1.025) Urine Protein (NEG-TRACE) MG/DL Urine Glucose (UA) (NEG) MG/DL Urine Ketones (NEG) MG/DL Urine Blood (NEG) Urine Nitrite (NEG) Ur Leukocyte Esterase (NEG) Urine RBC (0) /HPF Urine WBC (0-4) /HPF Ur Squamous Epith Cells /LPF Urine Bacteria /LPF Hyaline Casts /LPF Urine Yeast /HPF COVID-19 ([facility]) (Negative) COVID-19 Clin Com 03/07/22 03/07/22 03/07/22 Range/Units 08:42 11:40 11:40 WBC (4.8-10.8) X10*3/uL RBC (4.20-5.50) X10*6/uL Hgb (12.0-16.0) g/dl Hct (37.0-47.0) % MCV (80.0-98.0) fL MCH (27.0-33.0) pg MCHC (31.0-35.0) g/dl RDW (11.0-16.0) % Plt Count (160-400) X10*3/uL MPV (9.4-12.3) fL Immature Gran % (Auto) (0.0-0.4) % Neut % (Auto) (45-73) % Lymph % (Auto) (20-40) % [place] % (Auto) (2-11) % Eos % (Auto) (0-4) % Baso % (Auto) (0-2) % Lymph # (Auto) (1.2-4.9) X10*3/uL [place] # (Auto) (0.1-1.2) X10*3/uL Eos # (Auto) (0.0-0.4) X10*3/uL Baso # (Auto) (0.0-0.2) X10*3/uL Abs Immat Gran (auto) (0.00-0.03) X10*3/uL Absolute Neuts (auto) (2.0-8.3) x10*3/uL Absolute Nucleated RBC (0.0-0.012) X10*3/uL Nucleated RBC % (auto) (0.0-0.2) /100WBC VBG pH 7.37 (7.32-7.43) VBG pCO2 41 mmHg VBG pO2 74 mmHg VBG HCO3 24 (22-26) mmol/L VBG O2 Saturation 93.0 % VBG Base Excess -0.7 mmol/L Sodium (135-145) mmol/L Potassium (3.3-5.1) mmol/L Chloride (96-108) mmol/L Carbon Dioxide (22-29) mmol/L Anion Gap (12-20) BUN (9-16) mg/dL Creatinine (0.5-1.4) mg/dL Estim Creat Clear Calc Estimated GFR Random Glucose (60-115) mg/dL Lactic Acid (0.5-2.0) mmol/L Calcium (8.4-10.2) mg/dL Magnesium (1.6-2.6) mg/dL Total Bilirubin (0.0-1.0) mg/dL Direct Bilirubin (0.0-0.5) mg/dL AST (5-31) U/L ALT (0-31) U/L Alkaline Phosphatase (39-117) U/L Troponin I High Sens (<3.5-17.0) ng/L B-Natriuretic Peptide (<100) pg/mL Total Protein (6.5-8.0) g/dL Albumin (3.5-5.0) g/dL Procalcitonin ng/mL Urine Color YELLOW Urine Appearance CLEAR Urine pH 7.0 (5.0-8.0) Ur Specific [place] 1.010 (1.005-1.025) Urine Protein 1+ H (NEG-TRACE) MG/DL Urine Glucose (UA) NEG (NEG) MG/DL Urine Ketones NEG (NEG) MG/DL Urine Blood NEG (NEG) Urine Nitrite POS H (NEG) Ur Leukocyte Esterase 1+ H (NEG) Urine RBC 0 (0) /HPF Urine WBC 1-4 (0-4) /HPF Ur Squamous Epith Cells 1+ /LPF Urine Bacteria 1+ /LPF Hyaline Casts 0-2 /LPF Urine Yeast TRACE /HPF COVID-19 ([facility]) Negative (Negative) COVID-19 Clin Com See Note ECG Data Attestation: I personally reviewed and interpreted this ECG as follows: ECG interpretation date: 03/07/22 ECG interpretation time: 09:51 Prior ECG tracings: available for review Interpretation: Sinus tachycardia, left axis deviation, ventricular rate 103 beats per minute, normal OK interval, normal QTC, no ST segment elevations or depressions. Critical Care Time Critical Care Time Critical Care Time: Yes Total Critical Care Time: 39 Attestation: I have personally provided critical care time exclusive of time spent on separately billable procedures. Time includes review of lab data, radiology results, discussion with consultants, and monitoring for potential decompensation. Intervention performed as documented. Discharge Plan Discharge Clinical Impression: Sepsis, Acute UTI, Pneumonia Patient Disposition: Admitted As Inpatient
[2022-03-07 08:46] LABS: MANUAL DIFF FLAG NO
[2022-03-07 08:49] LABS: Basophils Percent Auto 0.1 % (0-2); Hemoglobin 13.5 g/dl (12.0-16.0); Imm Gran Pct Auto 0.5 % (0.0-0.4); Lymphocytes Absolute Auto 0.6 X10*3/uL (1.2-4.9); Lymphocytes Percent Auto 3.1 % (20-40); Mean Corpuscular HGB Conc 32.9 g/dl (31.0-35.0); Mean Corpuscular Hemoglobin 30.6 pg (27.0-33.0); Monocytes Absolute Auto 1.2 X10*3/uL (0.1-1.2); Monocytes Percent Auto 6.5 % (2-11); Neutrophils Absolute Auto 16.4 x10*3/uL (2.0-8.3); Neutrophils Percent Auto 89.8 % (45-73); Platelet Count 164 X10*3/uL (160-400); Red Blood Count 4.41 X10*6/uL (4.20-5.50); Red Cell Distribution Width 15.3 % (11.0-16.0); White Blood Count 18.3 X10*3/uL (4.8-10.8)
[2022-03-07] MEDS: 0.9 % Sodium Chloride 1,000 ML 999 ML IVCONT (08:55)
[2022-03-07] MEDS: Acetaminophen 325 MG TABLET 975 MG PO (08:55)
[2022-03-07 09:00] LABS: Lactic Acid 1.1 mmol/L (0.5-2.0)
[2022-03-07 09:03] LABS: Alanine Aminotransferase 26 U/L (0-31); Albumin Level 3.7 g/dL (3.5-5.0); Alkaline Phosphatase 88 U/L (39-117); Anion Gap 11 (12-20); Aspartate Amino Transferase 26 U/L (5-31); Bilirubin Direct 0.3 mg/dL (0.0-0.5); Bilirubin Total 0.7 mg/dL (0.0-1.0); Blood Urea Nitrogen 31 mg/dL (9-16); Calcium 9.5 mg/dL (8.4-10.2); Carbon Dioxide 30 mmol/L (22-29); Chloride 100 mmol/L (96-108); Estimated Glomerular Filt Rate 33; Glucose Random 275 mg/dL (60-115); Magnesium 1.9 mg/dL (1.6-2.6); Potassium 4.4 mmol/L (3.3-5.1); Sodium 137 mmol/L (135-145); Total Protein 6.2 g/dL (6.5-8.0)
[2022-03-07 09:06] LABS: COVID-19 Test Negative (Negative)
[2022-03-07 09:08] LABS: Troponin-I High Sensitivity 11.8 ng/L (<3.5-17.0)
[2022-03-07 09:17] LABS: B Type Natriuretic Peptide 30 pg/mL (<100)
[2022-03-07] MEDS: cefTRIAXone sodium 1 GM in 0.9 % Sodium Chloride 50 ML IV (09:22)
--- NOTE | 2022-03-07 09:25 | PC.NURSE ---
FAMILY AT BEDSIDE. PT DENIES HAVING ANY COMPLAINTS AT THIS TIME. REMAINS ON 2L NC FOR COMFORT. MEDICATED PER EMAR. DENIED HAVING ANY QUESTIONS WILL CONTINUE TO MONITOR.
[2022-03-07 09:51] LABS: Procalcitonin 0.39 ng/mL
[2022-03-07] MEDS: Albuterol/Iprat 2.5/0.5MG 3 ML AMPUL.NEB INHALE ×3 (11:00→20:04)
[2022-03-07 11:50] LABS: Appearance Urine CLEAR; Color Urine YELLOW; Glucose Urine UA NEG (NEG); Leukocyte Esterase Urine 1+ (NEG); Nitrite Urine POS (NEG); UACC Culture Trigger YES; Urine Blood NEG (NEG); Urine Ketones NEG (NEG); Urine Protein 1+ MG/DL (NEG-TRACE)
[2022-03-07] MEDS: Azithromycin 500 MG in 0.9 % Sodium Chloride 250 ML 125 MG IV (11:50)
[2022-03-07 12:01] LABS: Bacteria Urine 1+ /LPF; Hyaline Casts Urine 0-2 /LPF; Squamous Epithelial Cell Urine 1+ /LPF
[2022-03-07 12:04] LABS: RBC Urine 0 /HPF (0)
[2022-03-07 12:12] LABS: VBG Base Excess -0.7 mmol/L; VBG HCO3 24 mmol/L (22-26); VBG pCO2 41 mmHg; VBG pH 7.37 (7.32-7.43); VBG pO2 74 mmHg
[2022-03-07 12:12] LABS: Venous Blood Gas Refer to POC result
--- NOTE | 2022-03-07 13:23 | PHA.MEDREC ---
Pharmacy Consult ? Medication Reconciliation Pharmacy has completed the medication reconciliation. Utilized pt list and pharmacy fill history
--- NOTE | 2022-03-07 14:07 | P.HPHOSP_ITS ---
History of Present Illness Date of Service: 03/07/22 Chief Complaint: cough, altered mentation History obtained from patient and her daughter, as the patient is somewhat confused. 71yo F with COPD not on home O2, psoriasis on mAb therapy, DM2 on insulin, depression, CKD3, cervical radiculopathy who lives alone at home and was found slumped over at the breakfast table by her daughter this morning, diaphoretic and covered in thick phlegm. She has a chronic cough but the cough has been worse over the past few days. She has been more unsteady shaky as of late and fell a few weeks ago. No episodes of hypoglycemia. No fever. History of recurrent UTIs but no current dysuria or hematuria. No Covid-19 exposure and she's had 2 doses and 1 booster of mRNA vaccination. In the ED, she was found to be febrile to 102.2, tachycardic at 113, and tachypneic at 23. She was hypoxic with RA SaO2 of 90. WBC count was elevated at 18.3 with 90% PMNs. Lactate 1.1. CXR showed bibasilar patchy infiltrates. Covid-19 [facility]WARDO negative. She was given IV ceftriaxone and IV azithromycin along with 1L of IV normal saline. Review of Systems Review of Systems: Yes all other systems are reviewed and are negative [facility] Medical History Anxiety Carpal tunnel syndrome Cellulitis Chronic back pain CKD (chronic kidney disease) Depression Diabetes Diabetic neuropathy HTN (hypertension) Hyperlipidemia Osteoporosis Psoriasis Spondylosis Venous stasis dermatitis Family History Mother Diabetes Surgical History H/O section S/P cervical spinal fusion Social History Household Members: None Household Members Other:: daughter helps out daily Housing: Apartment Do you presently have visiting nurse or other home services: Yes (pt reports visiting nurse) Alcohol intake: never Patient Tobacco Use Status: Former Tobacco user Advance Directives: Yes Advance Directives on File: Yes Advance Directives Date on File: 06/07/20 service: No Current occupational status: unemployed Meds Allergies Allergy/AdvReac Type Severity Reaction Status Date / Time zolpidem [From AMBIEN] Allergy Severe SLEEP Verified 09/24/21 15:52 WALKING lactic acid [From LAC-HYDRIN] Allergy Intermediate RASH Verified 09/24/21 15:52 latex [Latex] Allergy Intermediate HIVES Verified 09/24/21 15:52 varenicline [From CHANTIX] Allergy Intermediate RASH Verified 09/24/21 15:52 From Benadryl Allergy Intermediate HIVES Uncoded 09/24/21 15:52 Active Medications: Current Medications Acetaminophen (Acetaminophen 325 Mg Tablet) 650 mg PO Q6H PRN PRN Reason: Pain, Mild (Pain Scale 1-3) Albuterol Sulfate (Albuterol Sulfate (0.083%) 2.5 Mg/3 Ml Vial.Neb) 2.5 mg INHALE Q2H PRN PRN Reason: Shortness of Breath/Wheezing Albuterol/Ipratropium (Albuterol/Iprat 2.5/0.5mg 3 Ml Ampul.Neb) 3 ml INHALE RQ4H WHILE AWAKE [facility] Atorvastatin Calcium (Atorvastatin Calcium 10 Mg Tablet) 10 mg PO BEDTIME [facility] Bupropion HCl (Bupropion Hcl Xl 300 Mg Tab.Er.24h) 300 mg PO DAILY [facility] Cyanocobalamin (Cyanocobalamin (Vitamin B-12) 500 Mcg Tablet) 500 mcg PO DAILY [facility] Dextrose (Dextrose 50 % 25 Gm/50 Ml Syringe) 25 gm IVPUSH Q15M PRN; Protocol PRN Reason: per Hypoglycemia Standing Ord. Enoxaparin Sodium (Enoxaparin Sodium 40 Mg/0.4 Ml Syringe) 40 mg SUBCUT Q24H [facility] Fluvoxamine Maleate (Fluvoxamine Maleate 50 Mg Tablet) 100 mg PO BID [facility] Glucose (Glucose Gel 15 Gm Gel..Gram.) 15 gm PO Q15M PRN; Protocol PRN Reason: per Hypoglycemia Standing Ord. Hydrocortisone (Hydrocortisone 2.5 % Rectal Cr 30 Gm Tube) 1 appl TOPICAL TID [facility] Ceftriaxone Sodium 1 gm/ (Sodium Chloride) 50 mls @ 100 mls/hr IV Q24H [facility] Doxycycline Hyclate 100 mg/ (Sodium Chloride) 250 mls @ 166.67 mls/hr IV Q12H [facility] Insulin Human Lispro (Insulin Lispro 100 Unit/Ml 3 Ml Vial) 0 unit SUBCUT QIDACHS [facility]; Protocol Magnesium Oxide (Magnesium Oxide 400 Mg Tablet) 400 mg PO DAILY [facility] Melatonin (Melatonin 3 Mg Tablet) 3 mg PO BEDTIME PRN PRN Reason: insomnia Methylprednisolone Sodium Succinate (Methylprednisolone Sod Succ 40 Mg/Ml Vial) 40 mg IVPUSH Q24H [facility] Multivitamins/Vitamin C (Multivitamin Tablet) 1 tab PO DAILY [facility] Non-Formulary Medication (Nsoukqwcrna-Lwlxzkjhw-Yusmffzp [Trelegy Ellipta]) 1 puff PO DAILY [facility] Non-Formulary Medication (Insulin Degludec [Tresiba Flextouch U-200]) 65 unit SUBCUT DAILY [facility] Ondansetron HCl (Ondansetron Hcl 4 Mg/2 Ml Vial) 4 mg IVPUSH Q8H PRN PRN Reason: Nausea and Vomiting Pharmacy Consult (Consult Rx Perform Med Rec) 1 each MISCELLANE ONCE PRN PRN Reason: Consult order Pregabalin (Pregabalin 150 Mg Capsule) 150 mg PO BID [facility] Sodium Chloride (0.9 % Sodium Chloride Flush 3 Ml Syringe) 3 ml IVFLUSH QSHIFT [facility] Spironolactone (Spironolactone 25 Mg Tablet) 100 mg PO DAILY [facility]; Protocol Tramadol HCl (Tramadol Hcl 50 Mg Tablet) 50 mg PO Q6H PRN PRN Reason: pain sevre Vitamin D (Cholecalciferol (Vitamin D3) 25 Mcg Tablet) 25 mcg PO DAILY [facility] Home Medications Medication Instructions Recorded Confirmed Last Taken Type alendronate 70 mg tablet 70 mg PO DEGROOT@0900 05/27/20 03/07/22 Unknown History allopurinol 300 mg tablet 300 mg PO DAILY 05/27/20 03/07/22 Unknown History cyanocobalamin (vitamin B-12) 500 500 mcg PO DAILY 05/27/20 03/07/22 Unknown History mcg tablet furosemide 40 mg tablet 40 mg PO BID 05/27/20 03/07/22 Unknown History liraglutide 0.6 mg/0.1 mL (18 mg/3 1.8 mg subcut DAILY 05/27/20 03/07/22 Unknown History mL) subcutaneous pen injector (Victoza 3-Toby) magnesium oxide 400 mg PO DAILY 05/27/20 03/07/22 Unknown History melatonin 3 mg tablet 3 mg PO BEDTIME PRN insomnia 05/27/20 03/07/22 Unknown History multivitamin 1 tab PO DAILY 05/27/20 03/07/22 Unknown History omega-3 fatty acids 500 mg capsule 500 mg PO DAILY 05/27/20 03/07/22 Unknown History pregabalin 75 mg capsule 150 mg PO BID 05/27/20 03/07/22 Unknown History simvastatin 10 mg tablet 10 mg PO BEDTIME 05/27/20 03/07/22 Unknown History spironolactone 100 mg tablet 100 mg PO DAILY 05/27/20 03/07/22 Unknown History tramadol 50 mg tablet 50 mg PO Q6H PRN pain 05/27/20 03/07/22 Unknown History bupropion HCl 300 mg 24 hr tablet, 300 mg PO QAM 03/20/21 03/07/22 Unknown History extended release cholecalciferol (vitamin D3) 25 25 mcg PO DAILY 03/20/21 03/07/22 Unknown History mcg (1,000 unit) capsule fluticasone fur. 100 mcg-umeclid 1 puff PO DAILY 03/07/22 03/07/22 Unknown History 62.5 mcg-vilant 25 mcg inhalat.powder (Trelegy Ellipta) fluvoxamine 100 mg tablet 1 tab PO BID 03/07/22 03/07/22 Unknown History hydrocortisone 2.5 % topical cream 1 appl topical TID 03/07/22 03/07/22 Unknown History insulin aspart U-100 100 unit/mL See Protocol subcut TIDAC 03/07/22 03/07/22 Unknown History (3 mL) subcutaneous pen (Novolog Flexpen U-100 Insulin aspart) insulin degludec 200 unit/mL (3 65 unit subcut DAILY 03/07/22 03/07/22 Unknown History mL) subcutaneous pen (Tresiba FlexTouch U-200 insulin) risankizumab-rzaa 150 mg/mL 1 ea subcut Q90D 03/07/22 03/07/22 Unknown History subcutaneous pen injector (Liaizi) Physical Exam 2 Vital Signs and Narrative: Vital Signs: Last Vital Signs Temp 98.5 F 03/07/22 11:45 Pulse 93 03/07/22 11:45 Resp 19 03/07/22 11:45 BP 115/55 L 03/07/22 11:45 Pulse Ox 97 03/07/22 11:45 O2 Del Method 03/07/22 11:45 O2 Flow Rate 3 03/07/22 11:45 BMI result Body Mass Index 31.1 Gen: in mild respiratory distress HEENT: sclera anicteric, moist mucus membranes Neck: supple Lungs: coarse R>L inspiratory rhonchi at bases, tachypneic Heart: regular rate and rhythm, no murmurs Abd: soft, non-tender, non-distended Ext: no edema Skin: warm/well-perfused Neuro: alert, mildly confused, no focal motor deficit Psych: appropriate affect Results Labs CBC and Chem 7: 03/07/22 08:38 03/07/22 08:38 Labs: Laboratory Results - last 24 hr 03/07/22 03/07/22 03/07/22 08:38 08:38 08:38 MCV 93.0 MCH 30.6 MCHC 32.9 RDW 15.3 Plt Count 164 MPV 12.0 Immature Gran % (Auto) 0.5 H Neut % (Auto) 89.8 H Lymph % (Auto) 3.1 L [place] % (Auto) 6.5 Eos % (Auto) 0.0 Baso % (Auto) 0.1 Lymph # (Auto) 0.6 L [place] # (Auto) 1.2 Eos # (Auto) 0.0 Baso # (Auto) 0.0 Abs Immat Gran (auto) 0.10 H Absolute Neuts (auto) 16.4 H Absolute Nucleated RBC 0.000 Nucleated RBC % (auto) 0.0 VBG pH VBG pCO2 VBG pO2 VBG HCO3 VBG O2 Saturation VBG Base Excess Anion Gap 11 L Estim Creat Clear Calc 32.0 Estimated GFR 33 Random Glucose 275 H Lactic Acid Calcium 9.5 Magnesium 1.9 Total Bilirubin 0.7 Direct Bilirubin 0.3 AST 26 ALT 26 Alkaline Phosphatase 88 D Troponin I High Sens 11.8 D B-Natriuretic Peptide Total Protein 6.2 L Albumin 3.7 Procalcitonin Urine Color Urine Appearance Urine pH Ur Specific [place] Urine Protein Urine Glucose (UA) Urine Ketones Urine Blood Urine Nitrite Ur Leukocyte Esterase Urine RBC Urine WBC Ur Squamous Epith Cells Urine Bacteria Hyaline Casts Urine Yeast COVID-19 ([facility]) COVID-19 Clin Com 03/07/22 03/07/22 03/07/22 08:39 08:39 08:39 MCV MCH MCHC RDW Plt Count MPV Immature Gran % (Auto) Neut % (Auto) Lymph % (Auto) [place] % (Auto) Eos % (Auto) Baso % (Auto) Lymph # (Auto) [place] # (Auto) Eos # (Auto) Baso # (Auto) Abs Immat Gran (auto) Absolute Neuts (auto) Absolute Nucleated RBC Nucleated RBC % (auto) VBG pH VBG pCO2 VBG pO2 VBG HCO3 VBG O2 Saturation VBG Base Excess Anion Gap Estim Creat Clear Calc Estimated GFR Random Glucose Lactic Acid 1.1 Calcium Magnesium Total Bilirubin Direct Bilirubin AST ALT Alkaline Phosphatase Troponin I High Sens B-Natriuretic Peptide 30 Total Protein Albumin Procalcitonin 0.39 Urine Color Urine Appearance Urine pH Ur Specific [place] Urine Protein Urine Glucose (UA) Urine Ketones Urine Blood Urine Nitrite Ur Leukocyte Esterase Urine RBC Urine WBC Ur Squamous Epith Cells Urine Bacteria Hyaline Casts Urine Yeast COVID-19 ([facility]) COVID-19 [facility] 03/07/22 03/07/22 03/07/22 08:42 11:40 11:40 MCV MCH MCHC RDW Plt Count MPV Immature Gran % (Auto) Neut % (Auto) Lymph % (Auto) [place] % (Auto) Eos % (Auto) Baso % (Auto) Lymph # (Auto) [place] # (Auto) Eos # (Auto) Baso # (Auto) Abs Immat Gran (auto) Absolute Neuts (auto) Absolute Nucleated RBC Nucleated RBC % (auto) VBG pH 7.37 VBG pCO2 41 VBG pO2 74 VBG HCO3 24 VBG O2 Saturation 93.0 VBG Base Excess -0.7 Anion Gap Estim Creat Clear Calc Estimated GFR Random Glucose Lactic Acid Calcium Magnesium Total Bilirubin Direct Bilirubin AST ALT Alkaline Phosphatase Troponin I High Sens B-Natriuretic Peptide Total Protein Albumin Procalcitonin Urine Color YELLOW Urine Appearance CLEAR Urine pH 7.0 Ur Specific [place] 1.010 Urine Protein 1+ H Urine Glucose (UA) NEG Urine Ketones NEG Urine Blood NEG Urine Nitrite POS H Ur Leukocyte Esterase 1+ H Urine RBC 0 Urine WBC 1-4 Ur Squamous Epith Cells 1+ Urine Bacteria 1+ Hyaline Casts 0-2 Urine Yeast TRACE COVID-19 ([facility]) Negative COVID-19 Clin Com See Note Imaging Radiologist's Impressions: Impressions Chest X-Ray 03/07/22 09:01 FINDINGS/IMPRESSION: The study is limited by portable technique, low lung volumes, rotation, and the chin overlying the right apex. The right hemidiaphragm is mildly elevated. Small bibasilar patchy densities may represent atelectasis and/or infiltrates. No consolidation, effusion, pneumothorax is seen. The cardiac silhouette is poorly evaluated. The aorta is atherosclerotic. There are degenerative changes of the spine, with thoracolumbar levocurvature. There are degenerative changes of the shoulders. A lower cervical spinal metallic anterior fixation plate and screws are partially imaged. Assessment and Plan (1) Sepsis: Status: Acute (2) Pneumonia: Status: Acute Plan 71yo F with COPD not on home O2, psoriasis on mAb therapy, DM2 on insulin, depresion, CKD3 presenting with altered mental status and found to be septic and hypoxic, likely due to pneumonia. # sepsis # CAP - due to PSI/PORT 103 [risk class IV, 8.2-9.3% mortality], will admit to M/S, follow BCx, trend PCT, give IV ceftriaxone + doxycycline, check RVP # COPD exacerbation - give IV methylprednisolone, standing/prn nebs, continue triple controller therapy # CKD3 - SCr close to baseline, avoid nephrotoxins # HTN - continue spironolactone # DM2 - basal/bolus insulin # HLD - statin # depression - continue fluvoxamine, bupropion # chronic pain - pregabalin, prn tramadol # VTE ppx: LMWH # code: full I anticipate that the patient will stay at least 2 midnights in hospital due to the above reasons. It is neither reasonable nor safe to care for them in a less acute setting. Quality Stroke Does the patient have a stroke diagnosis?: No VTE Prior VTE?: No VTE Risk Level:: Medical - moderate - high VTE Device Contraindication: N/A - Device Ordered VTE Drug Contraindication: N/A - Med Ordered
[2022-03-07] MEDS: methylPREDNISolone Sod Succ 40 MG/ML VIAL IVPUSH (15:38)
[2022-03-07] MEDS: Doxycycline Hyclate 100 MG in 0.9 % Sodium Chloride 250 ML 166.67 MG IV (15:38)
[2022-03-07] MEDS: Enoxaparin Sodium 30 MG/0.3 ML SYRINGE SUBCUT (15:38)
[2022-03-07 15:53] LABS: Adenovirus PCR Not Detected (Not Detect.); Bordetella parapertussis PCR Not Detected (Not Detect.); Bordetella pertussis PCR Not Detected (Not Detect.); Chlamydia pneumoniae PCR Not Detected (Not Detect.); Coronavirus 229E PCR Not Detected (Not Detect.); Coronavirus HKU1 PCR Not Detected (Not Detect.); Coronavirus NL63 PCR Not Detected (Not Detect.); Coronavirus OC43 PCR Not Detected (Not Detect.); Human metapneumovirus PCR Not Detected (Not Detect.); Influenza A PCR Not Detected (Not Detect.); Influenza B PCR Not Detected (Not Detect.); Mycoplasma pneumoniae PCR Not Detected (Not Detect.); Parainfluenza 1 PCR Not Detected (Not Detect.); Parainfluenza 2 PCR Not Detected (Not Detect.); Parainfluenza 3 PCR Not Detected (Not Detect.); Parainfluenza 4 PCR Not Detected (Not Detect.); RSV PCR Not Detected (Not Detect.); Rhino/Enterovirus PCR Not Detected (Not Detect.); SARS-CoV-2 PCR Not Detected (Not Detect.)
[2022-03-07 16:44] LABS: Glucose, Whole Blood 183 mg/dL (60-115)
[2022-03-07] MEDS: Insulin Lispro 100 UNIT/ML 3 ML VIAL SUBCUT ×2 (16:57→21:50)
[2022-03-07 21:40] LABS: Glucose, Whole Blood 274 mg/dL (60-115)
[2022-03-07] MEDS: Atorvastatin Calcium 10 MG TABLET PO (21:48)
[2022-03-07] MEDS: Pregabalin 150 MG CAPSULE PO (21:48)
[2022-03-07] MEDS: fluvoxaMINE Maleate 50 MG TABLET 100 MG PO (21:48)
[2022-03-07] MEDS: Melatonin 3 MG TABLET PO (21:53)
[2022-03-07] MEDS: Acetaminophen 325 MG TABLET 650 MG PO (21:54)
[2022-03-08] VITALS (11 sets, daily range): BP systolic 118–159; BP diastolic 60–73; PULSE 82–105; RESP 14–18; TEMP 36.1–36.7; O2SAT 91–97
[2022-03-08] MEDS: Doxycycline Hyclate 100 MG in 0.9 % Sodium Chloride 250 ML 166.67 MG IV ×2 (00:59→14:14)
[2022-03-08] MEDS: 0.9 % Sodium Chloride Flush 3 ML SYRINGE IVFLUSH ×3 (01:04→16:46)
[2022-03-08 05:45] LABS: Hematocrit 41.5 % (37.0-47.0); Hemoglobin 13.4 g/dl (12.0-16.0); Mean Corpuscular HGB Conc 32.3 g/dl (31.0-35.0); Mean Corpuscular Hemoglobin 30.7 pg (27.0-33.0); Mean Corpuscular Volume 95.2 fL (80.0-98.0); Mean Platelet Volume 12.3 fL (9.4-12.3); Platelet Count 154 X10*3/uL (160-400); Red Blood Count 4.36 X10*6/uL (4.20-5.50); Red Cell Distribution Width 15.5 % (11.0-16.0); White Blood Count 13.1 X10*3/uL (4.8-10.8)
[2022-03-08 06:02] LABS: Anion Gap 12 (12-20); Blood Urea Nitrogen 33 mg/dL (9-16); Calcium 9.1 mg/dL (8.4-10.2); Carbon Dioxide 27 mmol/L (22-29); Chloride 106 mmol/L (96-108); Creatinine Clr Calc Pharmacy 31.5; Estimated Glomerular Filt Rate 32; Glucose Random 317 mg/dL (60-115); Potassium 4.8 mmol/L (3.3-5.1); Sodium 140 mmol/L (135-145)
[2022-03-08 07:29] LABS: Glucose, Whole Blood 286 mg/dL (60-115)
[2022-03-08] MEDS: Albuterol/Iprat 2.5/0.5MG 3 ML AMPUL.NEB INHALE ×4 (08:06→19:40)
[2022-03-08] MEDS: Cholecalciferol (Vitamin D3) 25 MCG TABLET PO (08:16)
[2022-03-08] MEDS: Spironolactone 25 MG TABLET 100 MG PO (08:16)
[2022-03-08] MEDS: Pregabalin 150 MG CAPSULE PO ×2 (08:16→20:57)
[2022-03-08] MEDS: Cyanocobalamin (Vitamin B-12) 500 MCG TABLET PO (08:17)
[2022-03-08] MEDS: cefTRIAXone sodium 1 GM in 0.9 % Sodium Chloride 50 ML IV (08:17)
[2022-03-08] MEDS: fluvoxaMINE Maleate 50 MG TABLET 100 MG PO ×2 (08:17→20:57)
[2022-03-08] MEDS: buPROPion HCl XL 300 MG TAB.ER.24H PO (08:17)
[2022-03-08] MEDS: Multivitamin TABLET 1 TAB PO (08:17)
[2022-03-08] MEDS: Magnesium Oxide 400 MG TABLET PO (08:17)
[2022-03-08] MEDS: 0.9 % Sodium Chloride 1,000 ML 50 ML IVCONT (08:18)
[2022-03-08] MEDS: Insulin Lispro 100 UNIT/ML 3 ML VIAL SUBCUT ×4 (08:18→20:58)
--- NOTE | 2022-03-08 10:16 | MHC.CM.PN ---
IMM 03/08/22, EMR REVIEWED, CM MET W/PT WHO REPORTS SHE LIVES ALONE, HAS A WALKER, GRAB BARS IN SHOWER, PER PREVIOUS NOTES/DTR, PT HAS 2 WALKERS AND A TOILET SEAT RAISER, PT REPORTS DAILY [facility] VISITS FOR WOUND ON HER SHOULDER AND PER PREVIOUS NOTES/DTR PT ALSO HAS [employer]. PT REPORTS SHE PREFERS HOME W/RESUMPTION OF SERVICES, PT IS REC'ING HOME W/PT, CM WILL VERIFY SERVICES PT IS RECEIVING FROM [facility], PT VERIFIES COVID VACCINE X2, PCP IS DR DEL ROSARIO AND ON FILE AND HCP IS MARCIAL MCDONALD AND ON FILE IN [facility]. D/C PLAN: HOME W/RESUMP OF [facility], [employer] HRS W/DTR [facility] FOR TRANSPORT.
[2022-03-08 11:21] LABS: Glucose, Whole Blood 247 mg/dL (60-115)
--- NOTE | 2022-03-08 11:32 | P.PNIM_ITS ---
Subjective Subjective Date of Service: 03/08/22 Interval History: breathing improved, still somewhat confused Review of Systems Review of Systems: Yes all other systems are reviewed and are negative Physical Exam Vital Signs: Vital Signs: Last Vital Signs Temp 97.7 F 03/08/22 11:21 Pulse 97 03/08/22 11:21 Resp 16 03/08/22 11:21 BP 137/62 03/08/22 11:21 Pulse Ox 97 03/08/22 11:21 O2 Del Method 03/08/22 11:21 O2 Flow Rate 2.0 03/08/22 11:21 BMI result Body Mass Index 31.1 Gen: NAD HEENT: sclera anicteric, moist mucus membranes Neck: supple Lungs: coarse R>L inspiratory rhonchi at bases Heart: regular rate and rhythm, no murmurs Abd: soft, non-tender, non-distended Ext: no edema Skin: warm/well-perfused Neuro: alert, mildly confused, no focal motor deficit Psych: appropriate affect Objective Data Active Medications Acetaminophen (Acetaminophen 325 Mg Tablet) 650 mg PO Q6H PRN PRN Reason: Pain, Mild (Pain Scale 1-3) Last Admin: 03/07/22 21:54 Dose: 650 mg Documented By: ALBERT Albuterol Sulfate (Albuterol Sulfate (0.083%) 2.5 Mg/3 Ml Vial.Neb) 2.5 mg INHALE Q2H PRN PRN Reason: Shortness of Breath/Wheezing Albuterol/Ipratropium (Albuterol/Iprat 2.5/0.5mg 3 Ml Ampul.Neb) 3 ml INHALE RQ4H WHILE AWAKE [facility] Last Admin: 03/08/22 11:31 Dose: 3 ml Documented By: ROXANNA Atorvastatin Calcium (Atorvastatin Calcium 10 Mg Tablet) 10 mg PO BEDTIME [facility] Last Admin: 03/07/22 21:48 Dose: 10 mg Documented By: ALBERT Bupropion HCl (Bupropion Hcl Xl 300 Mg Tab.Er.24h) 300 mg PO DAILY [facility] Last Admin: 03/08/22 08:17 Dose: 300 mg Documented By: RAJWINDER Cyanocobalamin (Cyanocobalamin (Vitamin B-12) 500 Mcg Tablet) 500 mcg PO DAILY [facility] Last Admin: 03/08/22 08:17 Dose: 500 mcg Documented By: RAJWINDER Dextrose (Dextrose 50 % 25 Gm/50 Ml Syringe) 25 gm IVPUSH Q15M PRN; Protocol PRN Reason: per Hypoglycemia Standing Ord. Enoxaparin Sodium (Enoxaparin Sodium 30 Mg/0.3 Ml Syringe) 30 mg SUBCUT Q24H [facility] Last Admin: 03/07/22 15:38 Dose: 30 mg Documented By: LAYNE Fluvoxamine Maleate (Fluvoxamine Maleate 50 Mg Tablet) 100 mg PO BID [facility] Last Admin: 03/08/22 08:17 Dose: 100 mg Documented By: RAJWINDER Glucose (Glucose Gel 15 Gm Gel..Gram.) 15 gm PO Q15M PRN; Protocol PRN Reason: per Hypoglycemia Standing Ord. Hydrocortisone (Hydrocortisone 2.5 % Rectal Cr 30 Gm Tube) 1 appl TOPICAL TID [facility] Last Admin: 03/08/22 10:20 Dose: Not Given Documented By: RAJWINDER Non-Admin Reason: Med Not Available Ceftriaxone Sodium 1 gm/ (Sodium Chloride) 50 mls @ 100 mls/hr IV Q24H [facility] Last Infusion: 03/08/22 09:10 Dose: 0 mls/hr Documented By: RAJWINDER Doxycycline Hyclate 100 mg/ (Sodium Chloride) 250 mls @ 166.67 mls/hr IV Q12H [facility] Last Infusion: 03/08/22 02:35 Dose: 0 mls/hr Documented By: ALBERT Sodium Chloride (Ns) 1,000 mls @ 50 mls/hr IVCONT .Q20H [facility] Stop: 03/09/22 03:29 Last Admin: 03/08/22 08:18 Dose: 50 mls/hr Documented By: RAJWINDER Insulin Human Lispro (Insulin Lispro 100 Unit/Ml 3 Ml Vial) 0 unit SUBCUT QIDACHS [facility]; Protocol Last Admin: 03/08/22 08:18 Dose: 6 unit Documented By: RAJWINDER Magnesium Oxide (Magnesium Oxide 400 Mg Tablet) 400 mg PO DAILY [facility] Last Admin: 03/08/22 08:17 Dose: 400 mg Documented By: RAJWINDER Melatonin (Melatonin 3 Mg Tablet) 3 mg PO BEDTIME PRN PRN Reason: insomnia Last Admin: 03/07/22 21:53 Dose: 3 mg Documented By: ALBERT Methylprednisolone Sodium Succinate (Methylprednisolone Sod Succ 40 Mg/Ml Vial) 40 mg IVPUSH Q24H [facility] Last Admin: 03/07/22 15:38 Dose: 40 mg Documented By: LYANE Multivitamins/Vitamin C (Multivitamin Tablet) 1 tab PO DAILY [facility] Last Admin: 03/08/22 08:17 Dose: 1 tab Documented By: RAJWINDER Non-Formulary Medication (Jsiwnlrngio-Hpoxpdltu-Ecnixqwy [Trelegy Ellipta]) 1 puff PO DAILY [facility] Non-Formulary Medication (Insulin Degludec [Tresiba Flextouch U-200]) 65 unit SUBCUT DAILY [facility] Ondansetron HCl (Ondansetron Hcl 4 Mg/2 Ml Vial) 4 mg IVPUSH Q8H PRN PRN Reason: Nausea and Vomiting Pharmacy Consult (Consult Rx Perform Med Rec) 1 each MISCELLANE ONCE PRN PRN Reason: Consult order Pregabalin (Pregabalin 150 Mg Capsule) 150 mg PO BID [facility] Last Admin: 03/08/22 08:16 Dose: 150 mg Documented By: RAJWINDER Sodium Chloride (0.9 % Sodium Chloride Flush 3 Ml Syringe) 3 ml IVFLUSH QSHIFT [facility] Last Admin: 03/08/22 08:18 Dose: 3 ml Documented By: RAJWINDER Spironolactone (Spironolactone 25 Mg Tablet) 100 mg PO DAILY [facility]; Protocol Last Admin: 03/08/22 08:16 Dose: 100 mg Documented By: RAJWINDER Tramadol HCl (Tramadol Hcl 50 Mg Tablet) 50 mg PO Q6H PRN PRN Reason: pain sevre Vitamin D (Cholecalciferol (Vitamin D3) 25 Mcg Tablet) 25 mcg PO DAILY [facility] Last Admin: 03/08/22 08:16 Dose: 25 mcg Documented By: RAJWINDER Labs CBC & Chem 7: 03/08/22 05:35 03/08/22 05:36 Labs: Laboratory Results - last 24 hr 03/07/22 03/07/22 03/07/22 11:40 11:40 14:32 MCV MCH MCHC RDW Plt Count MPV Absolute Nucleated RBC Nucleated RBC % (auto) VBG pH 7.37 VBG pCO2 41 VBG pO2 74 VBG HCO3 24 VBG O2 Saturation 93.0 VBG Base Excess -0.7 Anion Gap Estim Creat Clear Calc Estimated GFR POC Glucose Random Glucose Calcium Urine Color YELLOW Urine Appearance CLEAR Urine pH 7.0 Ur Specific [place] 1.010 Urine Protein 1+ H Urine Glucose (UA) NEG Urine Ketones NEG Urine Blood NEG Urine Nitrite POS H Ur Leukocyte Esterase 1+ H Urine RBC 0 Urine WBC 1-4 Ur Squamous Epith Cells 1+ Urine Bacteria 1+ Hyaline Casts 0-2 Urine Yeast TRACE Respiratory Panel Morgan See Note Adenovirus (Rapid PCR) Not Detected B.pert (TEM-PCR) Not Detected B.parapertussis DNA PCR Not Detected C. pneumoniae DNA (PCR) Not Detected Coronavirus OC43 (PCR) Not Detected Coronavirus HKU1 (PCR) Not Detected Coronavirus 229E (PCR) Not Detected Coronavirus NL63 (PCR) Not Detected Human Metapneumovir PCR Not Detected Influenza A (RT-PCR) Not Detected Influenza B (RT-PCR) Not Detected M. pneumoniae (PCR) Not Detected Parainfluenza 1 (PCR) Not Detected Parainfluenza 2 (PCR) Not Detected Parainfluenza 3 (PCR) Not Detected Parainfluenza 4 (PCR) Not Detected RSV (PCR) Not Detected Entero/Rhino (PCR) Not Detected SARS-CoV-2 RNA (RT-PCR) Not Detected 03/07/22 03/07/22 03/08/22 16:40 21:36 05:35 MCV 95.2 MCH 30.7 MCHC 32.3 RDW 15.5 Plt Count 154 L MPV 12.3 Absolute Nucleated RBC 0.000 Nucleated RBC % (auto) 0.0 VBG pH VBG pCO2 VBG pO2 VBG HCO3 VBG O2 Saturation VBG Base Excess Anion Gap Estim Creat Clear Calc Estimated GFR POC Glucose 183 H 274 H Random Glucose Calcium Urine Color Urine Appearance Urine pH Ur Specific [place] Urine Protein Urine Glucose (UA) Urine Ketones Urine Blood Urine Nitrite Ur Leukocyte Esterase Urine RBC Urine WBC Ur Squamous Epith Cells Urine Bacteria Hyaline Casts Urine Yeast Respiratory Panel [place] Adenovirus (Rapid PCR) B.pert (TEM-PCR) B.parapertussis DNA PCR C. pneumoniae DNA (PCR) Coronavirus OC43 (PCR) Coronavirus HKU1 (PCR) Coronavirus 229E (PCR) Coronavirus NL63 (PCR) Human Metapneumovir PCR Influenza A (RT-PCR) Influenza B (RT-PCR) M. pneumoniae (PCR) Parainfluenza 1 (PCR) Parainfluenza 2 (PCR) Parainfluenza 3 (PCR) Parainfluenza 4 (PCR) RSV (PCR) Entero/Rhino (PCR) SARS-CoV-2 RNA (RT-PCR) 03/08/22 03/08/22 03/08/22 05:36 07:24 11:17 MCV MCH MCHC RDW Plt Count MPV Absolute Nucleated RBC Nucleated RBC % (auto) VBG pH VBG pCO2 VBG pO2 VBG HCO3 VBG O2 Saturation VBG Base Excess Anion Gap 12 Estim Creat Clear Calc 31.5 Estimated GFR 32 POC Glucose 286 H 247 H Random Glucose 317 H Calcium 9.1 Urine Color Urine Appearance Urine pH Ur Specific [place] Urine Protein Urine Glucose (UA) Urine Ketones Urine Blood Urine Nitrite Ur Leukocyte Esterase Urine RBC Urine WBC Ur Squamous Epith Cells Urine Bacteria Hyaline Casts Urine Yeast Respiratory Panel [place] Adenovirus (Rapid PCR) B.pert (TEM-PCR) B.parapertussis DNA PCR C. pneumoniae DNA (PCR) Coronavirus OC43 (PCR) Coronavirus HKU1 (PCR) Coronavirus 229E (PCR) Coronavirus NL63 (PCR) Human Metapneumovir PCR Influenza A (RT-PCR) Influenza B (RT-PCR) M. pneumoniae (PCR) Parainfluenza 1 (PCR) Parainfluenza 2 (PCR) Parainfluenza 3 (PCR) Parainfluenza 4 (PCR) RSV (PCR) Entero/Rhino (PCR) SARS-CoV-2 RNA (RT-PCR) Microbiology Microbiology Results: Microbiology 03/07/22 08:42 Blood Culture - Preliminary Blood - Venous No growth after 24 hours. 03/07/22 08:38 Blood Culture - Preliminary Blood - Venous No growth after 24 hours. 03/07/22 Unknown Urine Culture - Preliminary Urine clean catch - Urine jefferson top Culture in progress. Assessment and Plan (1) Sepsis: Status: Acute (2) Acute UTI: Status: Acute Plan hospital d#2 71yo F with COPD not on home O2, psoriasis on mAb therapy, DM2 on insulin, depresion, CKD3 presenting with altered mental status and found to be septic and hypoxic, likely due to pneumonia. # sepsis # CAP - due to PSI/PORT 103 [risk class IV, 8.2-9.3% mortality] - RVP negative, follow BCx, trend PCT - d#2 IV ceftriaxone + doxycycline # septic encephalopathy - treat infection as above # COPD exacerbation - d#2 IV methylprednisolone, standing/prn nebs, continue triple controller therapy # CKD3 - SCr close to baseline, avoid nephrotoxins # HTN - continue spironolactone # DM2 - basal/bolus insulin # HLD - statin # depression - continue fluvoxamine, bupropion # chronic pain - pregabalin, prn tramadol # tobacco abuse - refuses NRT, counseled # VTE ppx: LMWH In my clinical judgment, the patient requires continued hospitalization for the following reasons: hypoxia, IV ABX Quality Stroke Does the patient have a stroke diagnosis?: No VTE Prior VTE?: No VTE Risk Level:: Medical - moderate - high VTE Device Contraindication: N/A - Device Ordered VTE Drug Contraindication: N/A - Med Ordered
[2022-03-08] MEDS: methylPREDNISolone Sod Succ 40 MG/ML VIAL IVPUSH (14:15)
[2022-03-08] MEDS: Enoxaparin Sodium 30 MG/0.3 ML SYRINGE SUBCUT (14:15)
--- NOTE | 2022-03-08 15:34 | PC.RT ---
pt Sats on 2 liters nasal cannula is at 91%. pt does smoke at home and has COPD. Prior to discharge, pt should be evaluated for 02 at home with a home 02 Evalution.
[2022-03-08 15:52] LABS: Glucose, Whole Blood 254 mg/dL (60-115)
[2022-03-08] MEDS: Nicotine 14 MG PATCH.TD24 TRANSDERMA (16:46)
[2022-03-08 20:27] LABS: Glucose, Whole Blood 320 mg/dL (60-115)
[2022-03-08] MEDS: Atorvastatin Calcium 10 MG TABLET PO (20:58)
[2022-03-09] MEDS: Doxycycline Hyclate 100 MG in 0.9 % Sodium Chloride 250 ML 166.67 MG IV (02:17)
[2022-03-09 03:10] VITALS: BP 140/77; PULSE 100; RESP 14; TEMP 36.4; O2SAT 95
[2022-03-09 05:32] LABS: Hematocrit 38.2 % (37.0-47.0); Hemoglobin 12.4 g/dl (12.0-16.0); Mean Corpuscular HGB Conc 32.5 g/dl (31.0-35.0); Mean Corpuscular Hemoglobin 30.8 pg (27.0-33.0); Mean Platelet Volume 12.6 fL (9.4-12.3); Platelet Count 154 X10*3/uL (160-400); Red Blood Count 4.02 X10*6/uL (4.20-5.50); Red Cell Distribution Width 15.6 % (11.0-16.0); White Blood Count 10.9 X10*3/uL (4.8-10.8)
[2022-03-09 06:23] LABS: Anion Gap 9 (12-20); Blood Urea Nitrogen 31 mg/dL (9-16); Carbon Dioxide 26 mmol/L (22-29); Chloride 109 mmol/L (96-108); Creatinine Clr Calc Pharmacy 44.7; Estimated Glomerular Filt Rate 48; Glucose Random 398 mg/dL (60-115); Potassium 4.7 mmol/L (3.3-5.1); Sodium 139 mmol/L (135-145)
[2022-03-09] MEDS: Insulin Lispro 100 UNIT/ML 3 ML VIAL SUBCUT ×2 (06:33→12:03)
[2022-03-09 07:16] LABS: Procalcitonin 0.41 ng/mL
[2022-03-09 07:22] LABS: Glucose, Whole Blood 302 mg/dL (60-115)
[2022-03-09 07:34] VITALS: BP 154/68; PULSE 100; RESP 20; TEMP 36.4; O2SAT 93
[2022-03-09] MEDS: Multivitamin TABLET 1 TAB PO (07:57)
[2022-03-09] MEDS: Cyanocobalamin (Vitamin B-12) 500 MCG TABLET PO (07:57)
[2022-03-09] MEDS: Spironolactone 25 MG TABLET 100 MG PO (07:57)
[2022-03-09] MEDS: fluvoxaMINE Maleate 50 MG TABLET 100 MG PO (07:58)
[2022-03-09] MEDS: Pregabalin 150 MG CAPSULE PO (07:58)
[2022-03-09] MEDS: buPROPion HCl XL 300 MG TAB.ER.24H PO (07:58)
[2022-03-09] MEDS: Cholecalciferol (Vitamin D3) 25 MCG TABLET PO (07:58)
[2022-03-09] MEDS: Magnesium Oxide 400 MG TABLET PO (07:58)
[2022-03-09] MEDS: 0.9 % Sodium Chloride Flush 3 ML SYRINGE IVFLUSH (07:59)
[2022-03-09] MEDS: Nicotine 14 MG PATCH.TD24 TRANSDERMA (07:59)
[2022-03-09] MEDS: cefTRIAXone sodium 1 GM in 0.9 % Sodium Chloride 50 ML IV (07:59)
[2022-03-09] MEDS: Insulin Glargine,Hum.rec.anlog 100 UNIT/ML 10 ML VIAL 45 UNIT SUBCUT (10:04)
[2022-03-09 11:43] VITALS: PULSE 101; RESP 18; O2SAT 94
[2022-03-09] MEDS: Albuterol/Iprat 2.5/0.5MG 3 ML AMPUL.NEB INHALE (11:43)
[2022-03-09 11:46] VITALS: PULSE 100; PULSE 101; PULSE 112; PULSE 114; O2SAT 86; O2SAT 92; O2SAT 94; O2SAT 96
[2022-03-09 11:46] LABS: Glucose, Whole Blood 201 mg/dL (60-115)
--- NOTE | 2022-03-09 11:48 | MHC.CM.PN ---
PT HOSPITALIST, PT WILL DC HOME TODAY WITH RESUMPTION OF MECH[employer]ICAL CAR [facility] AND VNA SERVICES [facility] NOTIFIED VIA [facility] THEY WILL NEED NEW ORDERS SINCE PT WILL NOT NEED PT AT HOME DAUGHTER TO TRANSPORT
--- NOTE | 2022-03-09 11:49 | P.F2F_ITS ---
Service Date Service Date: 03/09/22 Encounter Date of encounter: 03/09/22 Reasons for Services Signs and symptoms assessed: new home O2 requirement Reason for custodial: medication management, medication treatment, teach disease management and other Reason for physical therapy: home safety and mobility, therapeutic exercises, gait/transfer training, assess need for DME, ADL training, energy conservation and other Homebound: Leaving the home is medically contraindicated at this time without the asist of a device and/or another person due th the listed conditions above and below. Reason homebound: shortness of breath with minimal effort and weakness related to hospital stay Certification: Based on the above findings, I certify that this patient is confined to the home and needs intermittent custodial care, physical therapy and/or speech therapy, or continues to need occupational therapy. The patient is under my care, and I have initiated the establishment of the plan of care. The patient will be followed by a physician who will periodically review the plan of care.
[2022-03-09 12:00] VITALS: BP 147/62; PULSE 103; RESP 19; TEMP 36.5; O2SAT 94
--- NOTE | 2022-03-09 12:01 | PM.DS ---
DS: Providers Provider Date of Service: 03/09/22 Date of admission: 03/07/22 14:05 Date of discharge: 03/09/22 Primary care physician: Ranjeet Rushing MD DS: Diagnosis Discharge Diagnosis (1) Sepsis: Status: Acute (2) Pneumonia: Status: Acute (3) Acute respiratory failure with hypoxia: Status: Acute (4) COPD exacerbation: Status: Acute (5) Tobacco abuse: Status: Acute (6) Septic encephalopathy: Status: Acute DS: Summary Hospital Course Hospital Course: from my admission H+P, 03/07/22: 71yo F with COPD not on home O2, psoriasis on mAb therapy, DM2 on insulin, depression, CKD3, cervical radiculopathy who lives alone at home and was found slumped over at the breakfast table by her daughter this morning, diaphoretic and covered in thick phlegm.? She has a chronic cough but the cough has been worse over the past few days.? She has been more unsteady shaky as of late and fell a few weeks ago.? No episodes of hypoglycemia.? No fever.? History of recurrent UTIs but no current dysuria or hematuria.? No Covid-19 exposure and she's had 2 doses and 1 booster of mRNA vaccination. In the ED, she was found to be febrile to 102.2, tachycardic at 113, and tachypneic at 23.? She was hypoxic with RA SaO2 of 90.? WBC count was elevated at 18.3 with 90% PMNs.? Lactate 1.1.? CXR showed bibasilar patchy infiltrates.? Covid-19 EDWARDO negative.? She was given IV ceftriaxone and IV azithromycin along with 1L of IV normal saline. She was admitted to the medical/surgical floor with PSI/PORT 103 [risk class IV, 8.2-9.3% mortality]. She was treated with IV ceftriaxone and doxycycline. Respiratory virus panel was negative. Blood cultures negative. WBCs normalized. She was also given IV methylprednisolone for COPD exacerbation. She ended up qualifying for home oxygen, 2L with ambulation. Mental status returned to baseline with treatment of the pneumonia. She was discharged home with resumption of VNA services and home O2 initiation. She was counseled on the importance of smoking cessation and NRT was prescribed. She should follow-up with Primary Care in 1 week; Pulmonology referral was also placed. Time Spent with Patient Time attestation: Total time spent providing and/or coordinating discharge services: Discharge coordination time: Greater than 30 minutes Quality: Safe Use of Opioids Does Pt have an Active Cancer Diagnosis on the Problem List?: No Quality: Stroke Does the patient have a stroke diagnosis?: No Physical Exam Vital Signs: Vital Signs: Last Vital Signs Temp 97.5 F 03/09/22 07:34 Pulse 101 H 03/09/22 11:43 Resp 18 03/09/22 11:43 BP 154/68 H 03/09/22 07:34 Pulse Ox 93 03/09/22 07:34 O2 Del Method 03/09/22 07:34 O2 Flow Rate 2 03/09/22 03:10 BMI result Body Mass Index 31.1 Gen: NAD HEENT: sclera anicteric, moist mucus membranes Neck: supple Lungs: coarse R>L inspiratory rhonchi at bases Heart: regular rate and rhythm, no murmurs Abd: soft, non-tender, non-distended Ext: no edema Skin: warm/well-perfused Neuro: alert, mildly confused, no focal motor deficit Psych: appropriate affect ? DS: Data Data Completed and Pending Completed studies during hospitalization [Text1]: Laboratory Results WBC 10.9 X10*3/uL (4.8-10.8) H 03/09/22 05:15 RBC 4.02 X10*6/uL (4.20-5.50) L 03/09/22 05:15 Hgb 12.4 g/dl (12.0-16.0) 03/09/22 05:15 Hct 38.2 % (37.0-47.0) 03/09/22 05:15 MCV 95.0 fL (80.0-98.0) 03/09/22 05:15 MCH 30.8 pg (27.0-33.0) 03/09/22 05:15 MCHC 32.5 g/dl (31.0-35.0) 03/09/22 05:15 RDW 15.6 % (11.0-16.0) 03/09/22 05:15 Plt Count 154 X10*3/uL (160-400) L 03/09/22 05:15 MPV 12.6 fL (9.4-12.3) H 03/09/22 05:15 Immature Gran % (Auto) 0.5 % (0.0-0.4) H 03/07/22 08:38 Neut % (Auto) 89.8 % (45-73) H 03/07/22 08:38 Lymph % (Auto) 3.1 % (20-40) L 03/07/22 08:38 [place] % (Auto) 6.5 % (2-11) 03/07/22 08:38 Eos % (Auto) 0.0 % (0-4) 03/07/22 08:38 Baso % (Auto) 0.1 % (0-2) 03/07/22 08:38 Lymph # (Auto) 0.6 X10*3/uL (1.2-4.9) L 03/07/22 08:38 [place] # (Auto) 1.2 X10*3/uL (0.1-1.2) 03/07/22 08:38 Eos # (Auto) 0.0 X10*3/uL (0.0-0.4) 03/07/22 08:38 Baso # (Auto) 0.0 X10*3/uL (0.0-0.2) 03/07/22 08:38 Abs Immat Gran (auto) 0.10 X10*3/uL (0.00-0.03) H 03/07/22 08:38 Absolute Neuts (auto) 16.4 x10*3/uL (2.0-8.3) H 03/07/22 08:38 Absolute Nucleated RBC 0.000 X10*3/uL (0.0-0.012) 03/09/22 05:15 Nucleated RBC % (auto) 0.0 /100WBC (0.0-0.2) 03/09/22 05:15 VBG pH 7.37 (7.32-7.43) 03/07/22 11:40 VBG pCO2 41 mmHg 03/07/22 11:40 VBG pO2 74 mmHg 03/07/22 11:40 VBG HCO3 24 mmol/L (22-26) 03/07/22 11:40 VBG O2 Saturation 93.0 % 03/07/22 11:40 VBG Base Excess -0.7 mmol/L 03/07/22 11:40 Sodium 139 mmol/L (135-145) 03/09/22 05:15 Potassium 4.7 mmol/L (3.3-5.1) 03/09/22 05:15 Chloride 109 mmol/L (96-108) H 03/09/22 05:15 Carbon Dioxide 26 mmol/L (22-29) 03/09/22 05:15 Anion Gap 9 (12-20) L 03/09/22 05:15 BUN 31 mg/dL (9-16) H 03/09/22 05:15 Creatinine 1.12 mg/dL (0.5-1.4) 03/09/22 05:15 Estim Creat Clear Calc 44.7 03/09/22 05:15 Estimated GFR 48 03/09/22 05:15 POC Glucose 201 mg/dL (60-115) H 03/09/22 11:19 Random Glucose 398 mg/dL (60-115) H* 03/09/22 05:15 Lactic Acid 1.1 mmol/L (0.5-2.0) 03/07/22 08:39 Calcium 9.0 mg/dL (8.4-10.2) 03/09/22 05:15 Magnesium 1.9 mg/dL (1.6-2.6) 03/07/22 08:38 Total Bilirubin 0.7 mg/dL (0.0-1.0) 03/07/22 08:38 Direct Bilirubin 0.3 mg/dL (0.0-0.5) 03/07/22 08:38 AST 26 U/L (5-31) 03/07/22 08:38 ALT 26 U/L (0-31) 03/07/22 08:38 Alkaline Phosphatase 88 U/L (39-117) D 03/07/22 08:38 Troponin I High Sens 11.8 ng/L (<3.5-17.0) D 03/07/22 08:38 B-Natriuretic Peptide 30 pg/mL (<100) 03/07/22 08:39 Total Protein 6.2 g/dL (6.5-8.0) L 03/07/22 08:38 Albumin 3.7 g/dL (3.5-5.0) 03/07/22 08:38 Procalcitonin 0.41 ng/mL 03/09/22 05:15 Urine Color YELLOW 03/07/22 11:40 Urine Appearance CLEAR 03/07/22 11:40 Urine pH 7.0 (5.0-8.0) 03/07/22 11:40 Ur Specific [place] 1.010 (1.005-1.025) 03/07/22 11:40 Urine Protein 1+ MG/DL (NEG-TRACE) H 03/07/22 11:40 Urine Glucose (UA) NEG MG/DL (NEG) 03/07/22 11:40 Urine Ketones NEG MG/DL (NEG) 03/07/22 11:40 Urine Blood NEG (NEG) 03/07/22 11:40 Urine Nitrite POS (NEG) H 03/07/22 11:40 Ur Leukocyte Esterase 1+ (NEG) H 03/07/22 11:40 Urine RBC 0 /HPF (0) 03/07/22 11:40 Urine WBC 1-4 /HPF (0-4) 03/07/22 11:40 Ur Squamous Epith Cells 1+ /LPF 03/07/22 11:40 Urine Bacteria 1+ /LPF 03/07/22 11:40 Hyaline Casts 0-2 /LPF 03/07/22 11:40 Urine Yeast TRACE /HPF 03/07/22 11:40 Respiratory Panel Morgan See Note 03/07/22 14:32 Adenovirus (Rapid PCR) Not Detected (Not Detect.) 03/07/22 14:32 B.pert (TEM-PCR) Not Detected (Not Detect.) 03/07/22 14:32 B.parapertussis DNA PCR Not Detected (Not Detect.) 03/07/22 14:32 C. pneumoniae DNA (PCR) Not Detected (Not Detect.) 03/07/22 14:32 Coronavirus OC43 (PCR) Not Detected (Not Detect.) 03/07/22 14:32 Coronavirus HKU1 (PCR) Not Detected (Not Detect.) 03/07/22 14:32 Coronavirus 229E (PCR) Not Detected (Not Detect.) 03/07/22 14:32 COVID-19 (EDWARDO) Negative (Negative) 03/07/22 08:42 COVID-19 Clin Com See Note 03/07/22 08:42 Coronavirus NL63 (PCR) Not Detected (Not Detect.) 03/07/22 14:32 Human Metapneumovir PCR Not Detected (Not Detect.) 03/07/22 14:32 Influenza A (RT-PCR) Not Detected (Not Detect.) 03/07/22 14:32 Influenza B (RT-PCR) Not Detected (Not Detect.) 03/07/22 14:32 M. pneumoniae (PCR) Not Detected (Not Detect.) 03/07/22 14:32 Parainfluenza 1 (PCR) Not Detected (Not Detect.) 03/07/22 14:32 Parainfluenza 2 (PCR) Not Detected (Not Detect.) 03/07/22 14:32 Parainfluenza 3 (PCR) Not Detected (Not Detect.) 03/07/22 14:32 Parainfluenza 4 (PCR) Not Detected (Not Detect.) 03/07/22 14:32 RSV (PCR) Not Detected (Not Detect.) 03/07/22 14:32 Entero/Rhino (PCR) Not Detected (Not Detect.) 03/07/22 14:32 SARS-CoV-2 RNA (RT-PCR) Not Detected (Not Detect.) 03/07/22 14:32 Impressions Chest X-Ray 03/07/22 09:01 FINDINGS/IMPRESSION: The study is limited by portable technique, low lung volumes, rotation, and the chin overlying the right apex. The right hemidiaphragm is mildly elevated. Small bibasilar patchy densities may represent atelectasis and/or infiltrates. No consolidation, effusion, pneumothorax is seen. The cardiac silhouette is poorly evaluated. The aorta is atherosclerotic. There are degenerative changes of the spine, with thoracolumbar levocurvature. There are degenerative changes of the shoulders. A lower cervical spinal metallic anterior fixation plate and screws are partially imaged. Discharge Plan Discharge Patient Disposition: Home Health Service Discharge Diagnosis: sepsis due to pneumonia, hypoxia due to COPD due to tobacco abuse Referrals: [facility] [Outside] - 1 Day (RESUMPTION OF CARE AND HOME PHYSICAL THERAPY) Ranjeet Rushing MD [Primary Care Provider] - 1 Week Rui Silva MD [Physician] - 1 Week Discharge Medications: New nicotine 14 mg/24 hr Patch 24 Hour 14 mg transdermal DAILY Qty: 28 0RF cefuroxime axetil 250 mg tablet 250 mg PO BID Qty: 6 0RF nicotine (polacrilex) 2 mg gum 2 mg buccal Q2H Qty: 100 0RF doxycycline monohydrate 100 mg tablet 100 mg PO BID Qty: 6 0RF prednisone 20 mg tablet 40 mg PO DAILY Qty: 6 0RF albuterol sulfate 90 mcg/actuation HFA aerosol inhaler 2 puff inhalation Q4-6H PRN (Reason: shortness of breath or wheezing) Qty: 8.5 0RF Rx Instructions: use with spacer device Continued tramadol 50 mg tablet 50 mg PO Q6H PRN (Reason: pain) multivitamin Tablet 1 tab PO DAILY furosemide 40 mg tablet 40 mg PO BID alendronate 70 mg tablet 70 mg PO DEGROOT@0900 spironolactone 100 mg tablet 100 mg PO DAILY simvastatin 10 mg tablet 10 mg PO BEDTIME melatonin 3 mg tablet 3 mg PO BEDTIME PRN (Reason: insomnia) cyanocobalamin (vitamin B-12) 500 mcg tablet 500 mcg PO DAILY allopurinol 300 mg tablet 300 mg PO DAILY pregabalin 75 mg Capsule 150 mg PO BID omega-3 fatty acids 500 mg Capsule 500 mg PO DAILY Victoza 3-Toby 0.6 mg/0.1 mL (18 mg/3 mL) pen injector 1.8 mg subcut DAILY magnesium oxide 400 mg magnesium Tablet 400 mg PO DAILY cholecalciferol (vitamin D3) 25 mcg (1,000 unit) Capsule 25 mcg PO DAILY bupropion HCl 300 mg Tablet Extended Release 24 Hr 300 mg PO QAM fluvoxamine 100 mg tablet 1 tab PO BID hydrocortisone 2.5 % cream 1 appl topical TID insulin aspart U-100 [Novolog Flexpen U-100 Insulin] 100 unit/mL (3 mL) insulin pen See Protocol SUBCUT TIDAC Protocol: Insulin Correction Scale Less than or equal to 110 ---- Give (units): 0 111 to 150 Give (units): 0 151 to 200 Give (units): 2 201 to 250 Give (units): 4 251 to 300 Give (units): 6 301 to 350 Give (units): 8 Greater than 350 Give (units): 10 Call MD if Blood Glucose > : 350 Tresiba FlexTouch U-200 200 unit/mL (3 mL) insulin pen 65 unit subcut DAILY Skyrizi 150 mg/mL pen injector 1 ea subcut Q90D Trelegy Ellipta 100-62.5-25 mcg blister with device 1 puff PO DAILY No Action (DME) Wrist Brace Misc See Rx Instructions .MEDSUPPLY Qty: 1 0RF Rx Instructions: comfort form wrist rt s Discharge Orders: Discharge Order (Routine); Ordered 03/09/22 Ordered By: Merlyn Farr Diet: Diabetic diet Activity on Discharge: As tolerated Stand Alone Forms: Patient Portal Discharge page Care Plan Goals: respiratory health, smoking cessation Health Concerns: sepsis due to pneumonia, hypoxia due to COPD due to tobacco abuse Plan of Treatment: antibiotics for 3 days: - cefuroxime 250 mg twice daily - doxycycline 100 mg twice daily steroids for 3 days: - prednisone 40 mg daily controller inhaler: Trelegy daily rescue inhaler: albuterol oxygen, 2 liters with activity quit smoking using nicotine patch and gum in combination follow up with Primary Care in 1 week referral to Pulmonology Assessment: See Discharge Summary Patient Instructions: Pneumonia (DC)
[2022-03-09] MEDS: methylPREDNISolone Sod Succ 40 MG/ML VIAL IVPUSH (14:48)
== END 2022-03-09 15:30 | disposition home health service (06) | DRG 871 ==
LOC: HO.ED 12:08 → HO.EDOVER 14:12 → HO.S3 20:15
PROVIDERS: Physician Assistant; Admitting Provider Family Medicine; Emergency Provider Emergency Medicine; PCP Internal Medicine; Visit Provider Family Medicine
DX: A41.9 Sepsis, unspecified organism (principal); G93.41 Metabolic encephalopathy; J18.9 Pneumonia, unspecified organism; J44.0 Chronic obstructive pulmonary disease with (acute) lower respiratory infection; J44.1 Chronic obstructive pulmonary disease with (acute) exacerbation; F41.9 Anxiety disorder, unspecified; I12.9 Hypertensive chronic kidney disease with stage 1 through stage 4 chronic kidney disease, or unspecified chronic kidney disease; N18.30 Chronic kidney disease, stage 3 unspecified; E11.22 Type 2 diabetes mellitus with diabetic chronic kidney disease; E78.5 Hyperlipidemia, unspecified; G89.29 Other chronic pain; M81.0 Age-related osteoporosis without current pathological fracture; F32.A Depression, unspecified; F17.210 Nicotine dependence, cigarettes, uncomplicated; Z71.6 Tobacco abuse counseling; L40.9 Psoriasis, unspecified; Z20.822 Contact with and (suspected) exposure to COVID-19; Z98.1 Arthrodesis status; Z87.440 Personal history of urinary (tract) infections; Z91.040 Latex allergy status; Z88.8 Allergy status to other drugs, medicaments and biological substances; Z79.4 Long term (current) use of insulin; Z79.52 Long term (current) use of systemic steroids; Z79.899 Other long term (current) drug therapy
CPT/HCPCS: 36415; 71045; 80048; 80076; 81001; 82803; 82947; 83605; 83735; 83880; 84145; 84484; 85025; 85027; 87040; 87086; 87088; 87186; 87633; 87635; 93005; 94640; 96361; 96365; 96366; 96375; 97162; 99285; J0456; J0696; J1650; J2920

== ENCOUNTER → 2022-04-08 15:06 | Outpatient (BNVA) | payer OTHER, SELFPAY | PROVIDERS: PCP Internal Medicine; Visit Provider Hospitalist | DX: J41.0 Simple chronic bronchitis (principal); J96.11 Chronic respiratory failure with hypoxia; F17.200 Nicotine dependence, unspecified, uncomplicated; M54.9 Dorsalgia, unspecified; Z99.81 Dependence on supplemental oxygen | CPT/HCPCS: 94618; 99202 ==

== ENCOUNTER 2022-04-25 14:32 | Inpatient (IN) | payer OTHER, SELFPAY ==
[2022-04-25 14:44] VITALS: BP 128/89; BP 134/58; PULSE 106; PULSE 107; RESP 16; TEMP 37.3; O2SAT 96; O2SAT 97; BMI 29.2
--- NOTE | 2022-04-25 14:58 | ED_ITS ---
HPI - Psych General Chief Complaint: Psychiatric Symptoms Stated Complaint: SI W/NO PLAN, SEC 12 BY N Time Seen by Provider: 04/25/22 14:45 Source: patient Mode of arrival: EMS Limitations: no limitations History of Present Illness HPI Narrative: 72-year-old female who presents emergency department for evaluation of depression and suicidal ideation. Patient was seen in the community by [facility], placed on a Section 12 and sent to the emergency department. According to the Section 12 the patient has unspecified depression and unspecified anxiety. The patient complained of depression and had suicidal ideation. The Section 12 also states that the patient had decreased appetite, inability to sleep. The patient told me that she has been depressed for approximately 1 week and that her children wanted her to get some help therefore she went to [facility] for evaluation. The patient cannot identify specific trigger for her depression but states that she was upset that her she had on her multiple times. She states she has been from her for at least 2 years. She states that 20 years ago she did have a suicide attempt and cut her left arm. She denied being ill in any way over the past week. She denied fever, chills, sore throat, cough, chest pain, shortness of breath, dyspnea on exertion, nausea, vomiting, diarrhea. She denied abdominal pain, frequency, urgency or dysuria. The patient states that she rubbed her right on and since then her right eye is been red, she denies any change in her vision or any pain in her right eye. MD complaint: suicidal ideation and feels depressed Onset (ago): week(s) (1) Duration: constant History of same: Yes Relieving factors: none Exacerbating factors: none Context: significant life stressor Associated psychiatric symptoms: depression, suicidal ideation (Denied suicidal ideation time of my evaluation.) and other (Insomnia) Treatments prior to arrival: none Related Data Home Medications Medication Instructions Recorded Confirmed alendronate 70 mg tablet 70 mg PO DEGROOT@0900 05/27/20 04/25/22 allopurinol 300 mg tablet 300 mg PO DAILY 05/27/20 04/25/22 cyanocobalamin (vitamin B-12) 500 500 mcg PO DAILY 05/27/20 04/25/22 mcg tablet furosemide 40 mg tablet 40 mg PO BID 05/27/20 04/25/22 liraglutide 0.6 mg/0.1 mL (18 mg/3 1.8 mg subcut DAILY 05/27/20 04/25/22 mL) subcutaneous pen injector (Victoza 3-Toby) magnesium oxide 400 mg PO DAILY 05/27/20 04/25/22 melatonin 3 mg tablet 3 mg PO BEDTIME PRN insomnia 05/27/20 04/25/22 multivitamin 1 tab PO DAILY 05/27/20 04/25/22 simvastatin 10 mg tablet 10 mg PO BEDTIME 05/27/20 04/25/22 spironolactone 100 mg tablet 100 mg PO DAILY 05/27/20 04/25/22 tramadol 50 mg tablet 50 mg PO Q6H PRN pain 05/27/20 04/25/22 bupropion HCl 300 mg 24 hr tablet, 300 mg PO QAM 03/20/21 04/25/22 extended release cholecalciferol (vitamin D3) 25 25 mcg PO DAILY 03/20/21 04/25/22 mcg (1,000 unit) capsule fluticasone fur. 100 mcg-umeclid 1 puff PO DAILY 03/07/22 04/25/22 62.5 mcg-vilant 25 mcg inhalat.powder (Trelegy Ellipta) fluvoxamine 100 mg tablet 1 tab PO BID 03/07/22 04/25/22 insulin aspart U-100 100 unit/mL See Protocol subcut TIDAC 03/07/22 04/25/22 (3 mL) subcutaneous pen (Novolog Flexpen U-100 Insulin aspart) insulin degludec 200 unit/mL (3 65 unit subcut DAILY 03/07/22 04/25/22 mL) subcutaneous pen (Tresiba FlexTouch U-200 insulin) risankizumab-rzaa 150 mg/mL 1 ea subcut Q90D 03/07/22 04/25/22 subcutaneous pen injector (Skyrizi) pregabalin 150 mg capsule 150 mg PO BID 04/25/22 04/25/22 Previous Rx's Medication Instructions Recorded arm brace (Wrist Brace) #1 ea 06/29/20 albuterol sulfate 90 mcg/actuation 2 puff inhalation Q4-6H PRN 03/09/22 aerosol inhaler shortness of breath or wheezing #8.5 grams Allergies Allergy/AdvReac Type Severity Reaction Status Date / Time zolpidem [From LUPILLO] Allergy Severe SLEEP Verified 04/08/22 15:07 WALKING lactic acid [From LAC-HYDRIN] Allergy Intermediate RASH Verified 04/08/22 15:07 latex [Latex] Allergy Intermediate HIVES Verified 04/08/22 15:07 varenicline [From CHANTIX] Allergy Intermediate RASH Verified 04/08/22 15:07 From Benadryl Allergy Intermediate HIVES Uncoded 09/24/21 15:52 Review of Systems Review of Systems: Yes all other systems are reviewed and are negative [facility] Past Medical History Medical History (Updated 04/26/22 @ 01:13 by Davey Dowd MD) Acute UTI Anxiety Back pain Carpal tunnel syndrome Cellulitis Chronic back pain Chronic respiratory failure CKD (chronic kidney disease) COPD (chronic obstructive pulmonary disease) Depression Diabetes Diabetic neuropathy HTN (hypertension) Hyperlipidemia Osteoporosis Pneumonia Psoriasis Sepsis Spondylosis Tobacco dependence Venous stasis dermatitis Surgical History H/O section S/P cervical spinal fusion Family History Family History Mother Diabetes Social History Social History Household Members: None Household Members Other:: daughter helps out daily Housing: Apartment Do you presently have visiting nurse or other home services: Yes Alcohol intake: never Patient Tobacco Use Status: Former Tobacco user e-Cigarette/Vaping Use: Former Use Substance Use Type: Marijuana Advance Directives: Yes Advance Directives on File: Yes Advance Directives Date on File: 06/07/20 service: No Current occupational status: unemployed Physical Exam Vital Signs: Vital Signs: Last Vital Signs Temp 97.6 F 04/25/22 23:51 Pulse 100 04/25/22 23:51 Resp 15 04/25/22 23:51 BP 143/73 H 04/25/22 23:51 Pulse Ox 100 04/25/22 23:51 O2 Del Method 04/25/22 23:51 BMI result Body Mass Index 29.2 Const: Other: Elderly female, she had no difficulty walking from the bathroom to the examination chair. She is oriented to person and place answers all questions appropriately. HEENT: Head: Yes normal to inspection, Yes normocephalic and Yes atraumatic Ears: external ears normal General nose exam: Normal external nose present Face and sinus: Yes normal facial exam Mouth: Normal oral and palatal mucosa present Throat: Yes posterior oropharynx normal Eyes: Periorbital: periorbital findings normal Sclerae: scleral abnormal (Right subconjunctival hemorrhage, involving the entire conjunctiva) Pupils: Equal, round and reactive pupils present EOM: EOMs intact bilaterally Direct Ophthalmoscopy: normal light reflex Neck: Neck: Yes normal visual inspection, Yes no lymphadenopathy, Yes trachea midline and Yes supple Chest: Chest palpation & inspection: normal inspection of the chest and normal palpation of entire chest wall Resp: Effort & Inspection: normal respiratory effort and able to speak in complete sentences Auscultation: clear to auscultation bilaterally Cardio: Rate: regular rate Rhythm: regular rhythm Heart sounds: S1 normal heart sound present, S2 normal heart sound present and no murmurs GI: Inspection: Yes normal to inspection Palpation (GI): Soft to palpation, nontender and no guarding Auscultation: normal bowel sounds : General: Yes no CVA tenderness Back/Spine/Pelvis: Back: no CVA tenderness Skin: General skin exam: no rashes or lesions noted Neuro: Cranial nerves: Yes CN's II-XII intact bilaterally and Yes Equal, round and reactive pupils present Cognition (Neuro): normal cognition Motor exam (neuro): 5/5 motor strength present throughout Extrem: Other: Patient has some limited range of motion of her right shoulder which she states is chronic limiting her ability to lift her right arm General: Yes normal to inspection Psych: Appearance: grossly normal Speech and movement: Normal speech and movement present Affect: Sad affect present Attitude: cooperative Thought process: Normal thought process present Thought content: Suicidality present (Reported to the [facility] clinician, denies SI to me) Course Course Course Narrative: 72-year-old female who presents emergency department for evaluation depression x1 week and suicidal ideation. The patient was not ill in any other way. She was evaluated by [facility] at their office and then sent to e mergency department by ambulance for depression, suicidal ideation. Patient is on a Section 12. Patient's physical examination did reveal a right eye subconjunctival hemorrhage in limited range of motion of her right shoulder secondary to chronic shoulder injury. I did order a CBC, CMP, urine drug screen, ethanol level, TSH with reflex T4, urinalysis and COVID-19 test. Given her age in medical conditions I will also get a EKG. Patient's medications will be reconciled in ordered. 0009: Laboratory evaluation: CBC was normal. BUN elevated 34, creatinine elevated 1.44, these are chronically elevated. Glucose elevated 195, AST and ALT elevated 45 and 38. TSH was normal. Urinalysis revealed positive protein, negative nitrates, trace leukocyte esterase. Microscopic revealed 0-2 RBCs, 0-5 wbc's, 3-5 RBCs and no bacteria. Urine tox screen was negative. COVID-19 was negative. Twelve EKG revealed a sinus tachycardia with a rate of 109, normal intervals, Q-wave in lead 3, V1 through V3 with no evidence for acute STEMI. 0009: Start physician observation: The patient will be kept in the emergency department until appropriate psychiatric bed can be found. I did order the patient's outpatient medication regimen. The patient is on multiple different versions of insulin which are not on formulary therefore the patient was placed on a list pro sliding scale protocol. The patient's exam is unchanged from initial presentation. At the end of my shift, the patient's care was turned, Dr. Mamie Das. [facility] - Psych Medical Records Attestation: I reviewed the patient's medical records. Lab Data Attestation: I reviewed the patient's lab results. Result diagrams: 04/25/22 15:22 04/25/22 15:22 Labs: Lab Results 04/25/22 04/25/22 04/25/22 Range/Units 15:06 15:22 15:22 WBC 9.8 (4.8-10.8) X10*3/uL RBC 4.29 (4.20-5.50) X10*6/uL Hgb 13.6 (12.0-16.0) g/dl Hct 40.8 (37.0-47.0) % MCV 95.1 (80.0-98.0) fL MCH 31.7 (27.0-33.0) pg MCHC 33.3 (31.0-35.0) g/dl RDW 15.9 (11.0-16.0) % Plt Count 217 D (160-400) X10*3/uL MPV 11.9 (9.4-12.3) fL Immature Gran % (Auto) 0.4 (0.0-0.4) % Neut % (Auto) 78.4 H (45-73) % Lymph % (Auto) 10.2 L (20-40) % [place] % (Auto) 9.0 (2-11) % Eos % (Auto) 1.7 (0-4) % Baso % (Auto) 0.3 (0-2) % Lymph # (Auto) 1.0 L (1.2-4.9) X10*3/uL [place] # (Auto) 0.9 (0.1-1.2) X10*3/uL Eos # (Auto) 0.2 (0.0-0.4) X10*3/uL Baso # (Auto) 0.0 (0.0-0.2) X10*3/uL Abs Immat Gran (auto) 0.04 H (0.00-0.03) X10*3/uL Absolute Neuts (auto) 7.7 (2.0-8.3) x10*3/uL Absolute Nucleated RBC 0.000 (0.0-0.012) X10*3/uL Nucleated RBC % (auto) 0.0 (0.0-0.2) /100WBC Sodium 140 (135-145) mmol/L Potassium 4.7 (3.3-5.1) mmol/L Chloride 101 (96-108) mmol/L Carbon Dioxide 27 (22-29) mmol/L Anion Gap 17 (12-20) BUN 30 H (9-16) mg/dL Creatinine 1.44 H (0.5-1.4) mg/dL Estim Creat Clear Calc 33.2 Estimated GFR 36 POC Glucose (60-115) mg/dL Random Glucose 195 H (60-115) mg/dL Calcium 9.5 (8.4-10.2) mg/dL Total Bilirubin 0.4 (0.0-1.0) mg/dL AST 45 H D (5-31) U/L ALT 38 H (0-31) U/L Alkaline Phosphatase 108 D (39-117) U/L Total Protein 6.5 (6.5-8.0) g/dL Albumin 3.9 (3.5-5.0) g/dL TSH 1.03 (0.32-4.0) uIU/mL Urine Color Urine Appearance Urine pH (5.0-9.0) Ur Specific [place] (1.005-1.025) Urine Protein (Neg-Trace) mg/dL Urine Glucose (UA) (Negative) mg/dL Urine Ketones (Negative) mg/dL Urine Blood (Negative) Urine Nitrite (Negative) Ur Leukocyte Esterase (Negative) Urine RBC (0-2) /HPF Urine WBC (0-5) /HPF Ur Squamous Epith Cells (0-2) /HPF Urine Bacteria (None Seen) Hyaline Casts (0-2) /LPF Urine Opiates Screen (Not Detect) Urine Fentanyl Screen (Not Detect) Ur Barbiturates Screen (Not Detect) Ur Phencyclidine Scrn (Not Detect) Ur Amphetamines Screen (Not Detect) U Benzodiazepines Scrn (Not Detect) Urine Cocaine Screen (Not Detect) U Marijuana (THC) Screen (Not Detect) Ethyl Alcohol < 10 mg/dL COVID-19 ([facility]) Negative (Negative) COVID-19 Clin Com See Note 04/25/22 04/25/22 04/25/22 Range/Units 19:37 19:37 20:39 WBC (4.8-10.8) X10*3/uL RBC (4.20-5.50) X10*6/uL Hgb (12.0-16.0) g/dl Hct (37.0-47.0) % MCV (80.0-98.0) fL MCH (27.0-33.0) pg MCHC (31.0-35.0) g/dl RDW (11.0-16.0) % Plt Count (160-400) X10*3/uL MPV (9.4-12.3) fL Immature Gran % (Auto) (0.0-0.4) % Neut % (Auto) (45-73) % Lymph % (Auto) (20-40) % [place] % (Auto) (2-11) % Eos % (Auto) (0-4) % Baso % (Auto) (0-2) % Lymph # (Auto) (1.2-4.9) X10*3/uL [place] # (Auto) (0.1-1.2) X10*3/uL Eos # (Auto) (0.0-0.4) X10*3/uL Baso # (Auto) (0.0-0.2) X10*3/uL Abs Immat Gran (auto) (0.00-0.03) X10*3/uL Absolute Neuts (auto) (2.0-8.3) x10*3/uL Absolute Nucleated RBC (0.0-0.012) X10*3/uL Nucleated RBC % (auto) (0.0-0.2) /100WBC Sodium (135-145) mmol/L Potassium (3.3-5.1) mmol/L Chloride (96-108) mmol/L Carbon Dioxide (22-29) mmol/L Anion Gap (12-20) BUN (9-16) mg/dL Creatinine (0.5-1.4) mg/dL Estim Creat Clear Calc Estimated GFR POC Glucose 176 H (60-115) mg/dL Random Glucose (60-115) mg/dL Calcium (8.4-10.2) mg/dL Total Bilirubin (0.0-1.0) mg/dL AST (5-31) U/L ALT (0-31) U/L Alkaline Phosphatase (39-117) U/L Total Protein (6.5-8.0) g/dL Albumin (3.5-5.0) g/dL TSH (0.32-4.0) uIU/mL Urine Color Yellow Urine Appearance Clear Urine pH 6.0 (5.0-9.0) Ur Specific [place] <= 1.005 (1.005-1.025) Urine Protein 30 (1+) H (Neg-Trace) mg/dL Urine Glucose (UA) Negative (Negative) mg/dL Urine Ketones Negative (Negative) mg/dL Urine Blood Trace (Negative) Urine Nitrite Negative (Negative) Ur Leukocyte Esterase Trace H (Negative) Urine RBC 0-2 (0-2) /HPF Urine WBC 0-5 (0-5) /HPF Ur Squamous Epith Cells 3-5 (0-2) /HPF Urine Bacteria None Seen (None Seen) Hyaline Casts 0-2 (0-2) /LPF Urine Opiates Screen Not Detected (Not Detect) Urine Fentanyl Screen Not Detected (Not Detect) Ur Barbiturates Screen Not Detected (Not Detect) Ur Phencyclidine Scrn Not Detected (Not Detect) Ur Amphetamines Screen Not Detected (Not Detect) U Benzodiazepines Scrn Not Detected (Not Detect) Urine Cocaine Screen Not Detected (Not Detect) U Marijuana (THC) Screen Not Detected (Not Detect) Ethyl Alcohol mg/dL COVID-19 ([facility]) (Negative) COVID-19 Clin Com ECG Data Attestation: I personally reviewed and interpreted this ECG as follows: Interpretation: 1657: Sinus tachycardia with a rate of 109, normal IA interval, QRS duration QTC interval, no ST segment elevation, no ST segment depression, no PACs, no PVCs, inverted T-waves in leads V1 and V2, Q-waves lead 3, V1 through V3. No acute STEMI. Discharge Plan Discharge Clinical Impression: Depressed, Suicidal ideation Patient Disposition: Still a Patient Prescriptions: No Action tramadol 50 mg tablet 50 mg PO Q6H PRN (Reason: pain) multivitamin Tablet 1 tab PO DAILY furosemide 40 mg tablet 40 mg PO BID alendronate 70 mg tablet 70 mg PO DEGROOT@0900 spironolactone 100 mg tablet 100 mg PO DAILY simvastatin 10 mg tablet 10 mg PO BEDTIME melatonin 3 mg tablet 3 mg PO BEDTIME PRN (Reason: insomnia) cyanocobalamin (vitamin B-12) 500 mcg tablet 500 mcg PO DAILY allopurinol 300 mg tablet 300 mg PO DAILY Victoza 3-Toby 0.6 mg/0.1 mL (18 mg/3 mL) pen injector 1.8 mg subcut DAILY magnesium oxide 400 mg magnesium Tablet 400 mg PO DAILY cholecalciferol (vitamin D3) 25 mcg (1,000 unit) Capsule 25 mcg PO DAILY bupropion HCl 300 mg Tablet Extended Release 24 Hr 300 mg PO QAM fluvoxamine 100 mg tablet 1 tab PO BID insulin aspart U-100 [Novolog Flexpen U-100 Insulin] 100 unit/mL (3 mL) ins ulin pen See Protocol SUBCUT TIDA Protocol: Insulin Correction Scale Less than or equal to 110 ---- Give (units): 0 111 to 150 Give (units): 0 151 to 200 Give (units): 2 201 to 250 Give (units): 4 251 to 300 Give (units): 6 301 to 350 Give (units): 8 Greater than 350 Give (units): 10 Call MD if Blood Glucose > : 350 Tresiba FlexTouch U-200 200 unit/mL (3 mL) insulin pen 65 unit subcut DAILY Skyrizi 150 mg/mL pen injector 1 ea subcut Q90D Trelegy Ellipta 100-62.5-25 mcg blister with device 1 puff PO DAILY albuterol sulfate 90 mcg/actuation HFA aerosol inhaler 2 puff inhalation Q4-6H PRN (Reason: shortness of breath or wheezing) Qty: 8.5 0RF Rx Instructions: use with spacer device pregabalin 150 mg capsule 150 mg PO BID (DME) Wrist Brace Misc See Rx Instructions .MEDSUPPLY Qty: 1 0RF Rx Instructions: comfort form wrist rt s
--- NOTE | 2022-04-25 14:59 | ECG_ITS ---
Test Reason : MED CLEARANCE Blood Pressure : / mmHG Vent. Rate : 109 BPM Atrial Rate : 109 BPM P-R Int : 172 ms QRS Dur : 086 ms QT Int : 330 ms P-R-T Axes : 036 -54 054 degrees QTc Int : 444 ms Sinus tachycardia Left axis deviation Anteroseptal infarct (cited on or before 05-SEP-2021) Abnormal ECG When compared with ECG of 07-MAR-2022 09:27, Questionable change in initial forces of Anterior leads Inverted T waves have replaced nonspecific T wave abnormality in Anterior leads Referred By: Davey Dowd Electronically Signed By:LAUREN MCALLISTER
--- NOTE | 2022-04-25 15:03 | MHC.CARE ---
Pt was seen by Rach Wallace in the community and is a bedsearch.
[2022-04-25 15:25] LABS: MANUAL DIFF FLAG NO
[2022-04-25 15:26] LABS: COVID-19 Test Negative (Negative); IDNOW Serial# 16C4AD1C
[2022-04-25 15:29] LABS: Basophils Percent Auto 0.3 % (0-2); Eosinophils Absolute Auto 0.2 X10*3/uL (0.0-0.4); Eosinophils Percent Auto 1.7 % (0-4); Hematocrit 40.8 % (37.0-47.0); Hemoglobin 13.6 g/dl (12.0-16.0); Imm Gran Abs Auto 0.04 X10*3/uL (0.00-0.03); Imm Gran Pct Auto 0.4 % (0.0-0.4); Lymphocytes Percent Auto 10.2 % (20-40); Mean Corpuscular HGB Conc 33.3 g/dl (31.0-35.0); Mean Corpuscular Hemoglobin 31.7 pg (27.0-33.0); Mean Corpuscular Volume 95.1 fL (80.0-98.0); Mean Platelet Volume 11.9 fL (9.4-12.3); Monocytes Absolute Auto 0.9 X10*3/uL (0.1-1.2); Neutrophils Absolute Auto 7.7 x10*3/uL (2.0-8.3); Neutrophils Percent Auto 78.4 % (45-73); Platelet Count 217 X10*3/uL (160-400); Red Blood Count 4.29 X10*6/uL (4.20-5.50); Red Cell Distribution Width 15.9 % (11.0-16.0); White Blood Count 9.8 X10*3/uL (4.8-10.8)
[2022-04-25 15:44] LABS: Alanine Aminotransferase 38 U/L (0-31); Albumin Level 3.9 g/dL (3.5-5.0); Alkaline Phosphatase 108 U/L (39-117); Anion Gap 17 (12-20); Aspartate Amino Transferase 45 U/L (5-31); Bilirubin Total 0.4 mg/dL (0.0-1.0); Blood Urea Nitrogen 30 mg/dL (9-16); Calcium 9.5 mg/dL (8.4-10.2); Carbon Dioxide 27 mmol/L (22-29); Chloride 101 mmol/L (96-108); Creatinine Clr Calc Pharmacy 33.2; Estimated Glomerular Filt Rate 36; Ethanol < 10 mg/dL; Glucose Random 195 mg/dL (60-115); Potassium 4.7 mmol/L (3.3-5.1); Sodium 140 mmol/L (135-145); Total Protein 6.5 g/dL (6.5-8.0)
[2022-04-25] MEDS: Lidocaine 4 % Patch ADH..PATCH 1 PATCH TRANSDERMA (15:52)
[2022-04-25] MEDS: traMADoL HCL 50 MG TABLET PO (15:53)
[2022-04-25 16:03] LABS: TSH reflex Free T4 1.03 uIU/mL (0.32-4.0)
--- NOTE | 2022-04-25 17:10 | PHA.MEDREC ---
Pharmacy Consult ? Medication Reconciliation Pharmacy has completed the medication reconciliation. SPOKE WITH SON AT BEDSIDE. HE PROVIDED A LIST OF HER MEDICATIONS ON HIS PHONE
--- NOTE | 2022-04-25 17:13 | PC.NURSE ---
Pt's son Sky would like call with updates: [phone]
[2022-04-25 19:51] LABS: Appearance Urine Clear; Color Urine Yellow; Glucose Urine UA Negative (Negative); Leukocyte Esterase Urine Trace (Negative); Nitrite Urine Negative (Negative); Specific Gravity - Urine <= 1.005 (1.005-1.025); Urine Blood Trace (Negative); Urine Ketones Negative (Negative); Urine Protein 30 (1+) mg/dL (Neg-Trace)
[2022-04-25 20:00] LABS: RBC Urine 0-2 /HPF (0-2); WBC Urine 0-5 /HPF (0-5)
[2022-04-25 20:01] LABS: Bacteria Urine None Seen (None Seen); Hyaline Casts Urine 0-2 /LPF (0-2)
[2022-04-25 20:06] LABS: Amphetamine Screen Urine Not Detected (Not Detect); Barbiturates, Urine Not Detected (Not Detect); Benzodiazepines Screen Urine Not Detected (Not Detect); Cannabinoid Screen Urine Not Detected (Not Detect); Cocaine Screen Urine Not Detected (Not Detect); Fentanyl, urine Not Detected (Not Detect); Opiate Screen Urine Not Detected (Not Detect); Phencyclidine Screen Urine Not Detected (Not Detect)
[2022-04-25 20:43] LABS: Glucose, Whole Blood 176 mg/dL (60-115)
[2022-04-25 23:51] VITALS: BP 143/73; PULSE 100; RESP 15; TEMP 36.4; O2SAT 100
[2022-04-26] MEDS: Atorvastatin Calcium 10 MG TABLET PO ×2 (00:31→22:09)
[2022-04-26] MEDS: Pregabalin 150 MG CAPSULE PO ×3 (00:31→22:09)
[2022-04-26] MEDS: traMADoL HCL 50 MG TABLET PO ×2 (04:15→22:14)
--- NOTE | 2022-04-26 04:17 | PC.NURSE ---
Patient just woke up bathroom use and back, patient reported back pain 05/04, Tramadol 50 mg administered as ordered/pending effect, patient disposition from community by N is section 12 inpatient bed search, behavior non concerning, appetite adequate, elimination intact, medication compliant, VS unremarkable, will continue to monitor.
[2022-04-26 06:30] LABS: Glucose, Whole Blood 183 mg/dL (60-115)
[2022-04-26] MEDS: Insulin Lispro 100 UNIT/ML 3 ML VIAL SUBCUT (07:25)
--- NOTE | 2022-04-26 07:28 | PC.NURSE ---
patient aw3ake upon my arrival and standing frequently at corner/side of bed seemingly standing making the bed, but either very slow or repetitive motion which appears to be making no progress.
[2022-04-26] MEDS: allopurinoL 300 MG TABLET PO (08:23)
[2022-04-26] MEDS: fluvoxaMINE Maleate 50 MG TABLET 100 MG PO ×2 (08:23→22:09)
[2022-04-26] MEDS: Insulin Glargine,Hum.rec.anlog 100 UNIT/ML 10 ML VIAL 45 UNIT SUBCUT (08:23)
[2022-04-26] MEDS: Cyanocobalamin (Vitamin B-12) 500 MCG TABLET PO (08:23)
[2022-04-26] MEDS: Furosemide 40 MG TABLET PO ×2 (08:24→17:28)
[2022-04-26] MEDS: Multivitamin TABLET 1 TAB PO (08:24)
[2022-04-26] MEDS: Cholecalciferol (Vitamin D3) 25 MCG TABLET PO (08:24)
[2022-04-26] MEDS: Magnesium Oxide 400 MG TABLET PO (08:24)
[2022-04-26] MEDS: Spironolactone 25 MG TABLET 100 MG PO (08:33)
[2022-04-26 13:30] VITALS: BP 134/94; PULSE 98; RESP 18; TEMP 36.6; O2SAT 94
[2022-04-26 13:46] LABS: Glucose, Whole Blood 78 mg/dL (60-115)
--- NOTE | 2022-04-26 14:29 | MHC.CLN ---
NUTRITION CHANGED DIETARY KCALS TO DIABETIC 1800 KCALS TO INCREASE FOOD CHOICES.
[2022-04-26 17:11] LABS: Glucose, Whole Blood 134 mg/dL (60-115)
[2022-04-26 17:20] VITALS: BP 129/78
--- NOTE | 2022-04-26 18:50 | PC.ADMIT ---
Pt. escorted to unit via WC accompanied by this insurance writer, security, and son. Alert and oriented in all spheres. Pt. had made statements at home r/t being better off , resulting in her being brought to ED. Adult children very involved, with her daughter serving as her primary HEAD OF [employer]ISUAL MERCHANDISING. Denies current SI, I would never do anything , but endorses feelings of hopelessness r/t lifestyle , which she describes as lots of arguments with her daughter. Denies SI/HI, AH, or VH. Reports she feels safe on unit. Ambulates independently with rollator walker she brought from home. Oriented to unit and room. No smoking and visitor policies explained. Skin intact except dry skin cracks on right 3rd and 4th digit. Has DM with QID POC's ordered. Reports poor appetite with recent weight loss. Nutrition consult ordered.
[2022-04-26 21:35] LABS: Glucose, Whole Blood 75 mg/dL (60-115)
[2022-04-26] MEDS: traZODone HCL 50 MG TABLET PO (22:14)
[2022-04-26] MEDS: Acetaminophen 325 MG TABLET 650 MG PO (22:14)
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
[2022-04-27] MEDS: Acetaminophen 325 MG TABLET 650 MG PO (05:18)
[2022-04-27 06:00] VITALS: BP 113/62; PULSE 66; RESP 16; TEMP 36.6; O2SAT 96
[2022-04-27 07:31] LABS: Estimated Average Glucose 137 mg/dL; Hemoglobin A1c % 6.4 %
[2022-04-27 07:39] LABS: Alanine Aminotransferase 33 U/L (0-31); Albumin Level 3.9 g/dL (3.5-5.0); Alkaline Phosphatase 103 U/L (39-117); Anion Gap 16 (12-20); Aspartate Amino Transferase 32 U/L (5-31); Bilirubin Total 0.5 mg/dL (0.0-1.0); Blood Urea Nitrogen 29 mg/dL (9-16); Calcium 9.2 mg/dL (8.4-10.2); Carbon Dioxide 30 mmol/L (22-29); Chloride 98 mmol/L (96-108); Cholesterol 181 mg/dL; Creatinine Clr Calc Pharmacy 36.5; Estimated Glomerular Filt Rate 40; Glucose Fasting 135 mg/dL (60-99); HDL Cholesterol 63 mg/dL; LDL Cholesterol Calculated 103 mg/dl; Potassium 4.8 mmol/L (3.3-5.1); Sodium 139 mmol/L (135-145); Total Protein 6.6 g/dL (6.5-8.0); Triglycerides 79 mg/dL
[2022-04-27 08:00] LABS: Thyroid Stimulating Hormone 1.02 uIU/mL (0.32-4.0)
[2022-04-27] MEDS: Insulin Glargine,Hum.rec.anlog 100 UNIT/ML 10 ML VIAL 45 UNIT SUBCUT (08:47)
[2022-04-27] MEDS: Furosemide 40 MG TABLET PO ×2 (08:48→17:18)
[2022-04-27] MEDS: Cholecalciferol (Vitamin D3) 25 MCG TABLET PO (08:48)
[2022-04-27] MEDS: allopurinoL 300 MG TABLET PO (08:48)
[2022-04-27] MEDS: Pregabalin 150 MG CAPSULE PO ×2 (08:48→20:55)
[2022-04-27] MEDS: Magnesium Oxide 400 MG TABLET PO (08:48)
[2022-04-27] MEDS: Multivitamin TABLET 1 TAB PO (08:48)
[2022-04-27] MEDS: buPROPion HCl XL 300 MG TAB.ER.24H PO (08:48)
[2022-04-27] MEDS: fluvoxaMINE Maleate 50 MG TABLET 100 MG PO (08:48)
[2022-04-27] MEDS: Cyanocobalamin (Vitamin B-12) 500 MCG TABLET PO (08:48)
[2022-04-27] MEDS: Spironolactone 25 MG TABLET 100 MG PO (08:48)
[2022-04-27] MEDS: Lidocaine 4 % Patch ADH..PATCH 1 PATCH TRANSDERMA (08:49)
[2022-04-27 09:00] LABS: Glucose, Whole Blood 212 mg/dL (60-115)
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
[2022-04-27 12:03] LABS: Glucose, Whole Blood 146 mg/dL (60-115)
[2022-04-27 17:11] LABS: Glucose, Whole Blood 242 mg/dL (60-115)
[2022-04-27 20:41] LABS: Glucose, Whole Blood 159 mg/dL (60-115)
[2022-04-27 20:50] VITALS: BP 141/62; PULSE 105; RESP 18; TEMP 36.5; O2SAT 95
[2022-04-27] MEDS: traZODone HCL 50 MG TABLET PO (20:55)
[2022-04-27] MEDS: Atorvastatin Calcium 10 MG TABLET PO (20:55)
[2022-04-27] MEDS: Mirtazapine 7.5 MG TABLET PO (20:55)
[2022-04-27] MEDS: traMADoL HCL 50 MG TABLET PO (20:55)
[2022-04-28 06:00] VITALS: BP 158/70; PULSE 99; RESP 16; TEMP 36.3; O2SAT 99
[2022-04-28] MEDS: Spironolactone 25 MG TABLET 100 MG PO (08:33)
[2022-04-28] MEDS: Furosemide 40 MG TABLET PO (08:34)
[2022-04-28] MEDS: FLUoxetine HCl Oral Solution 20 MG/5 ML SOLUTION PO (08:34)
[2022-04-28] MEDS: buPROPion HCl XL 150 MG TAB.ER.24H PO (08:34)
[2022-04-28] MEDS: Multivitamin TABLET 1 TAB PO (08:34)
[2022-04-28] MEDS: allopurinoL 300 MG TABLET PO (08:34)
[2022-04-28] MEDS: Cholecalciferol (Vitamin D3) 25 MCG TABLET PO (08:34)
[2022-04-28] MEDS: Cyanocobalamin (Vitamin B-12) 500 MCG TABLET PO (08:34)
[2022-04-28] MEDS: Magnesium Oxide 400 MG TABLET PO (08:34)
[2022-04-28] MEDS: Insulin Glargine,Hum.rec.anlog 100 UNIT/ML 10 ML VIAL 45 UNIT SUBCUT (08:34)
[2022-04-28] MEDS: Pregabalin 150 MG CAPSULE PO ×2 (08:35→20:29)
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
[2022-04-28 16:57] LABS: Glucose, Whole Blood 200 mg/dL (60-115)
[2022-04-28 18:00] VITALS: BP 141/72; PULSE 110; RESP 22; TEMP 35.7; O2SAT 93
[2022-04-28] MEDS: Atorvastatin Calcium 10 MG TABLET PO (20:29)
[2022-04-28] MEDS: Mirtazapine 7.5 MG TABLET PO (20:29)
[2022-04-29 06:00] VITALS: BP 130/71; PULSE 92; RESP 17; TEMP 36; O2SAT 94
[2022-04-29 07:57] LABS: Glucose, Whole Blood 275 mg/dL (60-115)
[2022-04-29] MEDS: Spironolactone 25 MG TABLET 100 MG PO (08:30)
[2022-04-29] MEDS: Multivitamin TABLET 1 TAB PO (08:30)
[2022-04-29] MEDS: Cholecalciferol (Vitamin D3) 25 MCG TABLET PO (08:31)
[2022-04-29] MEDS: Insulin Glargine,Hum.rec.anlog 100 UNIT/ML 10 ML VIAL 45 UNIT SUBCUT (08:31)
[2022-04-29] MEDS: Furosemide 40 MG TABLET PO ×2 (08:31→16:36)
[2022-04-29] MEDS: Magnesium Oxide 400 MG TABLET PO (08:31)
[2022-04-29] MEDS: allopurinoL 300 MG TABLET PO (08:31)
[2022-04-29] MEDS: Cyanocobalamin (Vitamin B-12) 500 MCG TABLET PO (08:31)
[2022-04-29] MEDS: Pregabalin 150 MG CAPSULE PO ×2 (08:31→19:56)
[2022-04-29] MEDS: FLUoxetine HCl Oral Solution 20 MG/5 ML SOLUTION PO (08:31)
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
[2022-04-29] MEDS: traMADoL HCL 50 MG TABLET PO ×2 (16:36→22:29)
[2022-04-29 18:00] VITALS: BP 134/69; PULSE 100; RESP 19; O2SAT 95
[2022-04-29] MEDS: Atorvastatin Calcium 10 MG TABLET PO (19:56)
[2022-04-29] MEDS: Mirtazapine 7.5 MG TABLET PO (19:56)
[2022-04-29] MEDS: Mineral Oil/Petrolatum,White 106 GM Tube 1 APPL TOPICAL (20:00)
[2022-04-29] MEDS: traZODone HCL 50 MG TABLET PO (22:28)
[2022-04-30 07:30] VITALS: BP 115/60; PULSE 111; RESP 14; TEMP 36.7; O2SAT 92
[2022-04-30] MEDS: Insulin Glargine,Hum.rec.anlog 100 UNIT/ML 10 ML VIAL 45 UNIT SUBCUT (08:36)
[2022-04-30] MEDS: Pregabalin 150 MG CAPSULE PO ×2 (09:58→20:52)
[2022-04-30] MEDS: Cholecalciferol (Vitamin D3) 25 MCG TABLET PO (09:59)
[2022-04-30] MEDS: Magnesium Oxide 400 MG TABLET PO (09:59)
[2022-04-30] MEDS: Spironolactone 25 MG TABLET 100 MG PO (09:59)
[2022-04-30] MEDS: FLUoxetine HCl 20 MG CAPSULE 40 MG PO (10:00)
[2022-04-30] MEDS: Cyanocobalamin (Vitamin B-12) 500 MCG TABLET PO (10:00)
[2022-04-30] MEDS: Multivitamin TABLET 1 TAB PO (10:00)
[2022-04-30] MEDS: Furosemide 40 MG TABLET PO ×2 (10:00→17:00)
[2022-04-30] MEDS: allopurinoL 300 MG TABLET PO (10:00)
[2022-04-30] MEDS: Lidocaine 4 % Patch ADH..PATCH 1 PATCH TRANSDERMA (10:01)
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
[2022-04-30] MEDS: Mineral Oil/Petrolatum,White 106 GM Tube 1 APPL TOPICAL ×2 (14:13→20:51)
--- NOTE | 2022-04-30 15:22 | MHC.CLN ---
NUTRITION CONSULT FOR POOR APPETITE AND RECENT WEIGHT LOSS. REVIEW OF WEIGHT HX SHOWS 03/07/22=79.735 KG WHEN PATIENT ADMITTED FOR SEPSIS AND PNEUMONIA. WEIGHT LOSS X LESS THAN 2 MONTHS=-6.1%. ACUTE ILLNESS LIKELY CONTRIBUTOR TO WEIGHT LOSS. STAFF REPORTS THAT PATIENT IS EATING WELL THIS ADMISSION. DIET=DIABETIC 1800 KCALS. NO ADDITIONAL NUTRITION INTERVENTIONS AT THIS TIME.
[2022-04-30 15:29] VITALS: PULSE 115
[2022-04-30 18:00] VITALS: BP 153/67; PULSE 100; RESP 18; TEMP 36.5; O2SAT 96
[2022-04-30] MEDS: Atorvastatin Calcium 10 MG TABLET PO (20:51)
[2022-04-30] MEDS: Mirtazapine 15 MG TABLET PO (20:52)
[2022-04-30] MEDS: traZODone HCL 50 MG TABLET PO ×2 (20:53→23:28)
[2022-05-01 07:30] VITALS: BP 148/69; PULSE 69; RESP 16; TEMP 36.2; O2SAT 95
[2022-05-01] MEDS: Insulin Glargine,Hum.rec.anlog 100 UNIT/ML 10 ML VIAL 45 UNIT SUBCUT (10:18)
[2022-05-01] MEDS: Cholecalciferol (Vitamin D3) 25 MCG TABLET PO (10:21)
[2022-05-01] MEDS: Furosemide 40 MG TABLET PO ×2 (10:21→16:38)
[2022-05-01] MEDS: FLUoxetine HCl 20 MG CAPSULE 40 MG PO (10:22)
[2022-05-01] MEDS: Multivitamin TABLET 1 TAB PO (10:22)
[2022-05-01] MEDS: allopurinoL 300 MG TABLET PO (10:22)
[2022-05-01] MEDS: Pregabalin 150 MG CAPSULE PO ×2 (10:22→20:10)
[2022-05-01] MEDS: Magnesium Oxide 400 MG TABLET PO (10:22)
[2022-05-01] MEDS: Cyanocobalamin (Vitamin B-12) 500 MCG TABLET PO (10:22)
[2022-05-01] MEDS: Spironolactone 25 MG TABLET 100 MG PO (10:22)
[2022-05-01] MEDS: Lidocaine 4 % Patch ADH..PATCH 1 PATCH TRANSDERMA (10:23)
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
[2022-05-01] MEDS: Mineral Oil/Petrolatum,White 106 GM Tube 1 APPL TOPICAL (16:42)
[2022-05-01 18:00] VITALS: BP 141/67; PULSE 110; RESP 16; TEMP 36.9; O2SAT 93
[2022-05-01] MEDS: Mirtazapine 15 MG TABLET PO (20:10)
[2022-05-01] MEDS: clonazePAM 0.5 MG TABLET PO (20:10)
[2022-05-01] MEDS: traZODone HCL 50 MG TABLET PO (20:10)
[2022-05-01] MEDS: traMADoL HCL 50 MG TABLET PO (20:10)
[2022-05-01] MEDS: Atorvastatin Calcium 10 MG TABLET PO (20:10)
[2022-05-02 06:00] VITALS: BP 150/67; PULSE 90; RESP 16; TEMP 35.9; O2SAT 94
[2022-05-02] MEDS: Acetaminophen 325 MG TABLET 650 MG PO ×2 (06:22→17:10)
[2022-05-02 07:00] VITALS: BMI 28.7
[2022-05-02] MEDS: FLUoxetine HCl 20 MG CAPSULE 40 MG PO (08:40)
[2022-05-02] MEDS: Cyanocobalamin (Vitamin B-12) 500 MCG TABLET PO (08:40)
[2022-05-02] MEDS: Cholecalciferol (Vitamin D3) 25 MCG TABLET PO (08:40)
[2022-05-02] MEDS: Spironolactone 25 MG TABLET 100 MG PO (08:40)
[2022-05-02] MEDS: allopurinoL 300 MG TABLET PO (08:40)
[2022-05-02] MEDS: Magnesium Oxide 400 MG TABLET PO (08:40)
[2022-05-02] MEDS: Multivitamin TABLET 1 TAB PO (08:40)
[2022-05-02] MEDS: Pregabalin 150 MG CAPSULE PO ×2 (08:40→20:33)
[2022-05-02] MEDS: Insulin Glargine,Hum.rec.anlog 100 UNIT/ML 10 ML VIAL 45 UNIT SUBCUT (08:41)
[2022-05-02] MEDS: Furosemide 40 MG TABLET PO ×2 (08:41→17:08)
[2022-05-02] MEDS: Lidocaine 4 % Patch ADH..PATCH 1 PATCH TRANSDERMA (08:42)
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
[2022-05-02 17:14] VITALS: BP 144/68; PULSE 98
[2022-05-02 18:00] VITALS: BP 131/60; PULSE 108; RESP 18; TEMP 36.6; O2SAT 92
[2022-05-02] MEDS: Mineral Oil/Petrolatum,White 106 GM Tube 1 APPL TOPICAL ×2 (18:17→21:07)
[2022-05-02] MEDS: Triamcinolone Acet 0.5 % Cream 15 GM TUBE 1 APPL TOPICAL (18:18)
[2022-05-02] MEDS: Atorvastatin Calcium 10 MG TABLET PO (20:33)
[2022-05-02] MEDS: Mirtazapine 15 MG TABLET PO (20:33)
[2022-05-02] MEDS: clonazePAM 0.5 MG TABLET PO (20:33)
[2022-05-03 06:00] VITALS: BP 114/58; PULSE 99; RESP 16; TEMP 36.3; O2SAT 95
[2022-05-03] MEDS: Multivitamin TABLET 1 TAB PO (08:16)
[2022-05-03] MEDS: allopurinoL 300 MG TABLET PO (08:16)
[2022-05-03] MEDS: Cholecalciferol (Vitamin D3) 25 MCG TABLET PO (08:16)
[2022-05-03] MEDS: Lidocaine 4 % Patch ADH..PATCH 1 PATCH TRANSDERMA (08:16)
[2022-05-03] MEDS: Magnesium Oxide 400 MG TABLET PO (08:17)
[2022-05-03] MEDS: Pregabalin 150 MG CAPSULE PO ×2 (08:17→20:41)
[2022-05-03] MEDS: Insulin Glargine,Hum.rec.anlog 100 UNIT/ML 10 ML VIAL 45 UNIT SUBCUT (08:17)
[2022-05-03] MEDS: Furosemide 40 MG TABLET PO ×2 (08:17→17:16)
[2022-05-03] MEDS: Cyanocobalamin (Vitamin B-12) 500 MCG TABLET PO (08:17)
[2022-05-03] MEDS: FLUoxetine HCl 20 MG CAPSULE 40 MG PO (08:17)
[2022-05-03] MEDS: Spironolactone 25 MG TABLET 100 MG PO (08:17)
[2022-05-03] MEDS: LORazepam 0.5 MG TABLET PO (10:36)
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
[2022-05-03] MEDS: Mineral Oil/Petrolatum,White 106 GM Tube 1 APPL TOPICAL ×2 (11:51→20:43)
[2022-05-03 17:20] VITALS: BP 140/66; PULSE 111; RESP 18
[2022-05-03] MEDS: Acetaminophen 325 MG TABLET 650 MG PO (18:44)
[2022-05-03] MEDS: Mirtazapine 15 MG TABLET PO (20:41)
[2022-05-03] MEDS: Atorvastatin Calcium 10 MG TABLET PO (20:41)
[2022-05-03] MEDS: clonazePAM 0.5 MG TABLET PO (20:41)
[2022-05-03 22:49] VITALS: BP 137/78; PULSE 101; RESP 16; O2SAT 94
[2022-05-04] MEDS: Insulin Glargine,Hum.rec.anlog 100 UNIT/ML 10 ML VIAL 45 UNIT SUBCUT (08:23)
[2022-05-04] MEDS: FLUoxetine HCl 20 MG CAPSULE 40 MG PO (08:24)
[2022-05-04] MEDS: Magnesium Oxide 400 MG TABLET PO (08:24)
[2022-05-04] MEDS: Spironolactone 25 MG TABLET 100 MG PO (08:25)
[2022-05-04] MEDS: Pregabalin 150 MG CAPSULE PO ×2 (08:25→20:21)
[2022-05-04] MEDS: Mineral Oil/Petrolatum,White 106 GM Tube 1 APPL TOPICAL ×2 (08:25→20:21)
[2022-05-04] MEDS: Furosemide 40 MG TABLET PO ×2 (08:25→15:48)
[2022-05-04] MEDS: allopurinoL 300 MG TABLET PO (08:25)
[2022-05-04] MEDS: Cholecalciferol (Vitamin D3) 25 MCG TABLET PO (08:25)
[2022-05-04] MEDS: Multivitamin TABLET 1 TAB PO (08:25)
[2022-05-04] MEDS: Cyanocobalamin (Vitamin B-12) 500 MCG TABLET PO (08:25)
[2022-05-04] MEDS: Lidocaine 4 % Patch ADH..PATCH 1 PATCH TRANSDERMA (08:28)
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
[2022-05-04 18:00] VITALS: BP 132/78; PULSE 110; RESP 20; TEMP 36.3; O2SAT 95
[2022-05-04] MEDS: clonazePAM 0.5 MG TABLET PO (20:21)
[2022-05-04] MEDS: Mirtazapine 15 MG TABLET PO (20:21)
[2022-05-04] MEDS: Atorvastatin Calcium 10 MG TABLET PO (20:21)
[2022-05-05 06:00] VITALS: BP 145/63; PULSE 111; RESP 18; TEMP 36.9; O2SAT 94
[2022-05-05] MEDS: Insulin Glargine,Hum.rec.anlog 100 UNIT/ML 10 ML VIAL 45 UNIT SUBCUT (08:08)
[2022-05-05] MEDS: Furosemide 40 MG TABLET PO ×2 (08:10→18:16)
[2022-05-05] MEDS: Multivitamin TABLET 1 TAB PO (08:10)
[2022-05-05] MEDS: Magnesium Oxide 400 MG TABLET PO (08:10)
[2022-05-05] MEDS: Cholecalciferol (Vitamin D3) 25 MCG TABLET PO (08:10)
[2022-05-05] MEDS: Cyanocobalamin (Vitamin B-12) 500 MCG TABLET PO (08:11)
[2022-05-05] MEDS: Pregabalin 150 MG CAPSULE PO ×2 (08:11→20:43)
[2022-05-05] MEDS: allopurinoL 300 MG TABLET PO (08:11)
[2022-05-05] MEDS: FLUoxetine HCl 20 MG CAPSULE 40 MG PO (08:11)
[2022-05-05] MEDS: Spironolactone 25 MG TABLET 100 MG PO (08:11)
[2022-05-05] MEDS: Lidocaine 4 % Patch ADH..PATCH 1 PATCH TRANSDERMA (08:16)
[2022-05-05] MEDS: Mineral Oil/Petrolatum,White 106 GM Tube 1 APPL TOPICAL ×2 (09:22→20:43)
[2022-05-05] MEDS: Acetaminophen 325 MG TABLET 650 MG PO (12:16)
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
[2022-05-05 18:05] VITALS: BP 152/74
[2022-05-05] MEDS: Mirtazapine 15 MG TABLET PO (20:43)
[2022-05-05] MEDS: clonazePAM 0.5 MG TABLET PO (20:43)
[2022-05-05] MEDS: Atorvastatin Calcium 10 MG TABLET PO (20:43)
[2022-05-05 20:49] VITALS: BP 127/74; PULSE 112; RESP 16; TEMP 36.5; O2SAT 92
[2022-05-06] MEDS: Acetaminophen 325 MG TABLET 650 MG PO ×2 (03:24→17:59)
[2022-05-06] MEDS: traZODone HCL 50 MG TABLET PO ×2 (03:24→20:05)
[2022-05-06] MEDS: Melatonin 3 MG TABLET PO ×2 (03:24→20:05)
--- NOTE | 2022-05-06 03:34 | PC.NURSE ---
Patient restless this shift. Up at 0310 c/o ankle pain. Medicated with Tylenol 650 mg as well as Trazadone for sleep. Patient in dining area drinking tea at this time.
[2022-05-06 07:30] VITALS: BP 138/63; PULSE 103; RESP 18; TEMP 37.1; O2SAT 93
[2022-05-06] MEDS: Insulin Glargine,Hum.rec.anlog 100 UNIT/ML 10 ML VIAL 45 UNIT SUBCUT (08:23)
[2022-05-06] MEDS: Cyanocobalamin (Vitamin B-12) 500 MCG TABLET PO (08:24)
[2022-05-06] MEDS: Spironolactone 25 MG TABLET 100 MG PO (08:24)
[2022-05-06] MEDS: Furosemide 40 MG TABLET PO ×2 (08:24→16:43)
[2022-05-06] MEDS: Cholecalciferol (Vitamin D3) 25 MCG TABLET PO (08:24)
[2022-05-06] MEDS: FLUoxetine HCl 20 MG CAPSULE 40 MG PO (08:24)
[2022-05-06] MEDS: Magnesium Oxide 400 MG TABLET PO (08:24)
[2022-05-06] MEDS: Pregabalin 150 MG CAPSULE PO ×2 (08:24→20:05)
[2022-05-06] MEDS: Lidocaine 4 % Patch ADH..PATCH 1 PATCH TRANSDERMA (08:25)
[2022-05-06] MEDS: Multivitamin TABLET 1 TAB PO (08:25)
[2022-05-06] MEDS: allopurinoL 300 MG TABLET PO (08:25)
[2022-05-06] MEDS: Mineral Oil/Petrolatum,White 106 GM Tube 1 APPL TOPICAL ×2 (16:00→20:09)
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
[2022-05-06 18:00] VITALS: BP 138/63; PULSE 114; RESP 16; TEMP 36.5; O2SAT 94
[2022-05-06] MEDS: Atorvastatin Calcium 10 MG TABLET PO (20:05)
[2022-05-06] MEDS: Mirtazapine 15 MG TABLET PO (20:05)
[2022-05-06] MEDS: clonazePAM 0.5 MG TABLET PO (20:05)
[2022-05-07 07:30] VITALS: PULSE 112; RESP 18; TEMP 36.7; O2SAT 94
[2022-05-07] MEDS: Lidocaine 4 % Patch ADH..PATCH 1 PATCH TRANSDERMA (08:13)
[2022-05-07] MEDS: Insulin Glargine,Hum.rec.anlog 100 UNIT/ML 10 ML VIAL 45 UNIT SUBCUT (08:14)
[2022-05-07] MEDS: Furosemide 40 MG TABLET PO ×2 (08:15→17:16)
[2022-05-07] MEDS: Pregabalin 150 MG CAPSULE PO ×2 (08:16→20:48)
[2022-05-07] MEDS: FLUoxetine HCl 20 MG CAPSULE 40 MG PO (08:16)
[2022-05-07] MEDS: allopurinoL 300 MG TABLET PO (08:16)
[2022-05-07] MEDS: Cholecalciferol (Vitamin D3) 25 MCG TABLET PO (08:16)
[2022-05-07] MEDS: Multivitamin TABLET 1 TAB PO (08:16)
[2022-05-07] MEDS: Cyanocobalamin (Vitamin B-12) 500 MCG TABLET PO (08:17)
[2022-05-07] MEDS: Spironolactone 25 MG TABLET 100 MG PO (08:17)
[2022-05-07] MEDS: Magnesium Oxide 400 MG TABLET PO (08:17)
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
[2022-05-07] MEDS: Mineral Oil/Petrolatum,White 106 GM Tube 1 APPL TOPICAL (15:32)
[2022-05-07 18:00] VITALS: BP 167/66; PULSE 100; RESP 18; TEMP 36.4; O2SAT 94
[2022-05-07] MEDS: Melatonin 3 MG TABLET PO (20:48)
[2022-05-07] MEDS: traMADoL HCL 50 MG TABLET PO (20:48)
[2022-05-07] MEDS: Atorvastatin Calcium 10 MG TABLET PO (20:48)
[2022-05-07] MEDS: Mirtazapine 15 MG TABLET PO (20:48)
[2022-05-07] MEDS: traZODone HCL 50 MG TABLET PO (20:48)
[2022-05-07] MEDS: clonazePAM 0.5 MG TABLET PO (20:48)
[2022-05-08] MEDS: Acetaminophen 325 MG TABLET 650 MG PO ×2 (06:33→17:44)
[2022-05-08 07:45] VITALS: BP 125/57; PULSE 95; RESP 16; TEMP 36.4; O2SAT 95
[2022-05-08] MEDS: Spironolactone 25 MG TABLET 100 MG PO (07:47)
[2022-05-08] MEDS: Pregabalin 150 MG CAPSULE PO ×2 (07:47→19:50)
[2022-05-08] MEDS: Furosemide 40 MG TABLET PO ×2 (07:48→17:44)
[2022-05-08] MEDS: traMADoL HCL 50 MG TABLET PO ×3 (07:48→19:49)
[2022-05-08] MEDS: FLUoxetine HCl 20 MG CAPSULE 40 MG PO (07:49)
[2022-05-08] MEDS: Cyanocobalamin (Vitamin B-12) 500 MCG TABLET PO (07:49)
[2022-05-08] MEDS: allopurinoL 300 MG TABLET PO (07:49)
[2022-05-08] MEDS: Cholecalciferol (Vitamin D3) 25 MCG TABLET PO (07:50)
[2022-05-08] MEDS: Multivitamin TABLET 1 TAB PO (07:50)
[2022-05-08] MEDS: Magnesium Oxide 400 MG TABLET PO (07:50)
[2022-05-08] MEDS: Mineral Oil/Petrolatum,White 106 GM Tube 1 APPL TOPICAL (07:51)
[2022-05-08] MEDS: Lidocaine 4 % Patch ADH..PATCH 1 PATCH TRANSDERMA (09:15)
[2022-05-08] MEDS: Insulin Glargine,Hum.rec.anlog 100 UNIT/ML 10 ML VIAL 45 UNIT SUBCUT (09:15)
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
[2022-05-08 17:26] VITALS: BP 121/57; PULSE 103
[2022-05-08 19:41] VITALS: BP 141/64; PULSE 104; RESP 17; TEMP 36.5; O2SAT 92
[2022-05-08] MEDS: Atorvastatin Calcium 10 MG TABLET PO (19:50)
[2022-05-08] MEDS: Mirtazapine 15 MG TABLET PO (19:50)
[2022-05-09 06:00] VITALS: BP 124/65; PULSE 95; RESP 14; TEMP 36.2; O2SAT 92
[2022-05-09 07:00] VITALS: BMI 28.5
[2022-05-09] MEDS: Mineral Oil/Petrolatum,White 106 GM Tube 1 APPL TOPICAL ×2 (09:45→20:41)
[2022-05-09] MEDS: Lidocaine 4 % Patch ADH..PATCH 1 PATCH TRANSDERMA (09:45)
[2022-05-09] MEDS: FLUoxetine HCl 20 MG CAPSULE 40 MG PO (09:49)
[2022-05-09] MEDS: Cholecalciferol (Vitamin D3) 25 MCG TABLET PO (09:49)
[2022-05-09] MEDS: Multivitamin TABLET 1 TAB PO (09:49)
[2022-05-09] MEDS: Spironolactone 25 MG TABLET 100 MG PO (09:49)
[2022-05-09] MEDS: Magnesium Oxide 400 MG TABLET PO (09:49)
[2022-05-09] MEDS: allopurinoL 300 MG TABLET PO (09:49)
[2022-05-09] MEDS: Furosemide 40 MG TABLET PO ×2 (09:50→15:53)
[2022-05-09] MEDS: Pregabalin 150 MG CAPSULE PO ×2 (09:50→20:42)
[2022-05-09] MEDS: Cyanocobalamin (Vitamin B-12) 500 MCG TABLET PO (09:50)
[2022-05-09] MEDS: traMADoL HCL 50 MG TABLET PO ×3 (09:50→20:42)
[2022-05-09] MEDS: Insulin Glargine,Hum.rec.anlog 100 UNIT/ML 10 ML VIAL 45 UNIT SUBCUT (10:06)
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
[2022-05-09 15:50] VITALS: BP 136/66
[2022-05-09 18:00] VITALS: BP 134/60; PULSE 99; RESP 16; TEMP 36.5; O2SAT 94
--- NOTE | 2022-05-09 18:26 | PC.NURSE ---
Pt. with bright affect today. Making good eye contact and posture is more erect. She reports her mood and outlook are much improved. She is observed laughing and socializing with peers and spoke on phone with friend. She admits that although she reported herself as not much of a mingler upon admission, she has experienced in her self discovery since admission that she does enjoy socializing: Things are going to be a lot different when I leave here. Mari reports that her pain is well controlled on her new regimen of tramadol. She is eating and sleeping well, attending to ADLs and attending groups.
[2022-05-09] MEDS: Atorvastatin Calcium 10 MG TABLET PO (20:41)
[2022-05-09] MEDS: Mirtazapine 15 MG TABLET PO (20:41)
[2022-05-09] MEDS: Acetaminophen 325 MG TABLET 650 MG PO (21:58)
[2022-05-10 06:00] VITALS: BP 141/65; PULSE 90; RESP 16; TEMP 36.2; O2SAT 94
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
[2022-05-10] MEDS: Spironolactone 25 MG TABLET 100 MG PO (09:29)
[2022-05-10] MEDS: Cyanocobalamin (Vitamin B-12) 500 MCG TABLET PO (09:30)
[2022-05-10] MEDS: Cholecalciferol (Vitamin D3) 25 MCG TABLET PO (09:30)
[2022-05-10] MEDS: allopurinoL 300 MG TABLET PO (09:30)
[2022-05-10] MEDS: Pregabalin 150 MG CAPSULE PO ×2 (09:30→20:27)
[2022-05-10] MEDS: Furosemide 40 MG TABLET PO ×2 (09:30→15:14)
[2022-05-10] MEDS: FLUoxetine HCl 20 MG CAPSULE 40 MG PO (09:30)
[2022-05-10] MEDS: Multivitamin TABLET 1 TAB PO (09:30)
[2022-05-10] MEDS: traMADoL HCL 50 MG TABLET PO ×3 (09:30→20:26)
[2022-05-10] MEDS: Magnesium Oxide 400 MG TABLET PO (09:30)
[2022-05-10] MEDS: Lidocaine 4 % Patch ADH..PATCH 1 PATCH TRANSDERMA (09:35)
[2022-05-10] MEDS: Insulin Glargine,Hum.rec.anlog 100 UNIT/ML 10 ML VIAL 45 UNIT SUBCUT (09:36)
[2022-05-10] MEDS: Mineral Oil/Petrolatum,White 106 GM Tube 1 APPL TOPICAL ×2 (11:28→20:29)
[2022-05-10 15:00] VITALS: BP 138/64
[2022-05-10 18:00] VITALS: BP 165/71; PULSE 110; RESP 16; TEMP 36.8; O2SAT 94
[2022-05-10] MEDS: traZODone HCL 50 MG TABLET PO (20:24)
[2022-05-10] MEDS: Mirtazapine 15 MG TABLET PO (20:24)
[2022-05-10] MEDS: Melatonin 3 MG TABLET PO (20:25)
[2022-05-10] MEDS: Atorvastatin Calcium 10 MG TABLET PO (20:25)
[2022-05-11 06:00] VITALS: BP 123/66; PULSE 99; RESP 16; TEMP 36.2; O2SAT 94
[2022-05-11] MEDS: Insulin Glargine,Hum.rec.anlog 100 UNIT/ML 10 ML VIAL 45 UNIT SUBCUT (08:18)
[2022-05-11] MEDS: Furosemide 40 MG TABLET PO ×2 (08:19→15:20)
[2022-05-11] MEDS: allopurinoL 300 MG TABLET PO (08:19)
[2022-05-11] MEDS: Magnesium Oxide 400 MG TABLET PO (08:19)
[2022-05-11] MEDS: Pregabalin 150 MG CAPSULE PO ×2 (08:19→20:30)
[2022-05-11] MEDS: Cyanocobalamin (Vitamin B-12) 500 MCG TABLET PO (08:19)
[2022-05-11] MEDS: Spironolactone 25 MG TABLET 100 MG PO (08:19)
[2022-05-11] MEDS: Cholecalciferol (Vitamin D3) 25 MCG TABLET PO (08:19)
[2022-05-11] MEDS: traMADoL HCL 50 MG TABLET PO ×3 (08:19→20:30)
[2022-05-11] MEDS: FLUoxetine HCl 20 MG CAPSULE 40 MG PO (08:20)
[2022-05-11] MEDS: Multivitamin TABLET 1 TAB PO (08:20)
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
[2022-05-11] MEDS: Lidocaine 4 % Patch ADH..PATCH 1 PATCH TRANSDERMA (15:21)
[2022-05-11 18:00] VITALS: BP 139/64; PULSE 82; RESP 106; TEMP 36.9; O2SAT 93
[2022-05-11] MEDS: Melatonin 3 MG TABLET PO (20:29)
[2022-05-11] MEDS: Mirtazapine 15 MG TABLET PO (20:29)
[2022-05-11] MEDS: Atorvastatin Calcium 10 MG TABLET PO (20:29)
[2022-05-11] MEDS: traZODone HCL 50 MG TABLET PO ×2 (20:30→22:08)
[2022-05-11] MEDS: Mineral Oil/Petrolatum,White 106 GM Tube 1 APPL TOPICAL (20:35)
[2022-05-11] MEDS: Acetaminophen 325 MG TABLET 650 MG PO (22:08)
[2022-05-12 06:00] VITALS: BP 127/60; PULSE 95; RESP 16; TEMP 36.4; O2SAT 94
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
[2022-05-12] MEDS: Insulin Glargine,Hum.rec.anlog 100 UNIT/ML 10 ML VIAL 45 UNIT SUBCUT (11:19)
[2022-05-12] MEDS: Pregabalin 150 MG CAPSULE PO ×2 (11:19→20:00)
[2022-05-12] MEDS: traMADoL HCL 50 MG TABLET PO ×3 (11:19→20:00)
[2022-05-12] MEDS: Cholecalciferol (Vitamin D3) 25 MCG TABLET PO (11:20)
[2022-05-12] MEDS: FLUoxetine HCl 20 MG CAPSULE 40 MG PO (11:20)
[2022-05-12] MEDS: Spironolactone 25 MG TABLET 100 MG PO (11:20)
[2022-05-12] MEDS: Cyanocobalamin (Vitamin B-12) 500 MCG TABLET PO (11:20)
[2022-05-12] MEDS: Furosemide 40 MG TABLET PO ×2 (11:20→15:43)
[2022-05-12] MEDS: Multivitamin TABLET 1 TAB PO (11:20)
[2022-05-12] MEDS: allopurinoL 300 MG TABLET PO (11:20)
[2022-05-12] MEDS: Magnesium Oxide 400 MG TABLET PO (11:20)
[2022-05-12] MEDS: Mineral Oil/Petrolatum,White 106 GM Tube 1 APPL TOPICAL (11:21)
[2022-05-12] MEDS: Lidocaine 4 % Patch ADH..PATCH 1 PATCH TRANSDERMA (11:21)
[2022-05-12 18:00] VITALS: BP 127/58; PULSE 103; RESP 16; TEMP 37; O2SAT 93
[2022-05-12] MEDS: Mirtazapine 15 MG TABLET PO (20:00)
[2022-05-12] MEDS: Atorvastatin Calcium 10 MG TABLET PO (20:00)
[2022-05-13 07:47] VITALS: BP 130/61; PULSE 94; RESP 16; TEMP 36.3; O2SAT 93
[2022-05-13] MEDS: Lidocaine 4 % Patch ADH..PATCH 1 PATCH TRANSDERMA (07:53)
[2022-05-13] MEDS: Insulin Glargine,Hum.rec.anlog 100 UNIT/ML 10 ML VIAL 45 UNIT SUBCUT (07:54)
[2022-05-13] MEDS: Pregabalin 150 MG CAPSULE PO (07:54)
[2022-05-13] MEDS: Cyanocobalamin (Vitamin B-12) 500 MCG TABLET PO (07:54)
[2022-05-13] MEDS: Spironolactone 25 MG TABLET 100 MG PO (07:55)
[2022-05-13] MEDS: FLUoxetine HCl 20 MG CAPSULE 40 MG PO (07:55)
[2022-05-13] MEDS: Furosemide 40 MG TABLET PO (07:56)
[2022-05-13] MEDS: Magnesium Oxide 400 MG TABLET PO (07:57)
[2022-05-13] MEDS: Multivitamin TABLET 1 TAB PO (07:57)
[2022-05-13] MEDS: Cholecalciferol (Vitamin D3) 25 MCG TABLET PO (07:57)
[2022-05-13] MEDS: allopurinoL 300 MG TABLET PO (07:57)
--- NOTE | 2022-05-13 11:33 | PM.PSYDC ---
DS: Providers Provider Date of Service: 05/13/22 Date of admission: 04/26/22 12:45 Date of discharge: 05/13/22 Primary care physician: Ranjeet Rushing MD DS: Diagnosis Discharge Diagnosis (1) Adjustment disorder with mixed anxiety and depressed mood: Status: Acute DS: Medications Discharge Medications Home Medications: Home Medications Medication Instructions Recorded Confirmed alendronate 70 mg tablet 70 mg PO DEGROOT@0900 05/27/20 04/25/22 allopurinol 300 mg tablet 300 mg PO DAILY 05/27/20 04/25/22 cyanocobalamin (vitamin B-12) 500 500 mcg PO DAILY 05/27/20 04/25/22 mcg tablet furosemide 40 mg tablet 40 mg PO BID 05/27/20 04/25/22 liraglutide 0.6 mg/0.1 mL (18 mg/3 1.8 mg subcut DAILY 05/27/20 04/25/22 mL) subcutaneous pen injector ([employer] 3-Toby) magnesium oxide 400 mg PO DAILY 05/27/20 04/25/22 melatonin 3 mg tablet 3 mg PO BEDTIME PRN insomnia 05/27/20 04/25/22 multivitamin 1 tab PO DAILY 05/27/20 04/25/22 simvastatin 10 mg tablet 10 mg PO BEDTIME 05/27/20 04/25/22 spironolactone 100 mg tablet 100 mg PO DAILY 05/27/20 04/25/22 tramadol 50 mg tablet 50 mg PO Q6H PRN pain 05/27/20 04/25/22 bupropion HCl 300 mg 24 hr tablet, 300 mg PO QAM 03/20/21 04/25/22 extended release cholecalciferol (vitamin D3) 25 25 mcg PO DAILY 03/20/21 04/25/22 mcg (1,000 unit) capsule fluticasone fur. 100 mcg-umeclid 1 puff PO DAILY 03/07/22 04/25/22 62.5 mcg-vilant 25 mcg inhalat.powder (Trelegy Ellipta) fluvoxamine 100 mg tablet 1 tab PO BID 03/07/22 04/25/22 insulin aspart U-100 100 unit/mL See Protocol subcut TIDAC 03/07/22 04/25/22 (3 mL) subcutaneous pen (Novolog Flexpen U-100 Insulin aspart) insulin degludec 200 unit/mL (3 65 unit subcut DAILY 03/07/22 04/25/22 mL) subcutaneous pen (Tresiba FlexTouch U-200 insulin) risankizumab-rzaa 150 mg/mL 1 ea subcut Q90D 03/07/22 04/25/22 subcutaneous pen injector (Skyrizi) pregabalin 150 mg capsule 150 mg PO BID 04/25/22 04/25/22 Previous Rx's Medication Instructions Recorded arm brace (Wrist Brace) #1 ea 06/29/20 albuterol sulfate 90 mcg/actuation 2 puff inhalation Q4-6H PRN 03/09/22 aerosol inhaler shortness of breath or wheezing #8.5 grams Mental Status Exam Mental Status Exam Patient Appearance: Well Grooomed Patient Orientation: Person and Situation Level of Consciousness: Awake Patient Behavior: Cooperative Mood Description: Calm Affect Description: Constricted Patient Cognition Impaired: Yes Ability to Follow Directions: Good Speech Pattern: Clear Hallucinations: None Delusions: Not Present Thought Process: Distracted Thought Content: positive for [place] Judgement: Fair DS: Summary Hospital Course Hospital Course: The patient was admitted into the hospital for exacerbation of depression and recent onset of suicidal ideation. Please see the HPI note for further details. On admission, the patient had several antidepressant such as Wellbutrin and Lexapro. Since those medications were not working, we discussed risks, benefits, side-effects and alternatives with the patient and the patient's family regarding antidepressants. Since she has neurovegetative symptoms and 1 of her main complaint was poor sleep and poor appetite with a lost of several lb, we started Remeron titrated up to 15 mg p.o. q.h.s. with no evidence of side effects. The patient's mood improved slowly, but still she complained of depression and chronic pain mostly in her back. We started tramadol 50 mg p.o. t.i.d. to target pain and she improved remarkably. The occupational therapist was able to were with her she was able to participate in some groups and her functionality improved. Also her [place] test was done and she scored quite low and she needed frequent cuing for ADL less. Since there were no safety, planes discharge planning was started and she will be discharged to an assisted living facility at Time spent discussing smoking cessation with patient: 3 to 10 minutes Status at Discharge Cognitive/behavioral status at discharge: impaired at baseline Functional status at discharge: independent ambulation Overall status at discharge: patient is back to baseline Time Spent with Patient Time attestation: Total time spent providing and/or coordinating discharge services: Time spent: Less than 30 minutes Discharge Plan Discharge Patient Disposition: Xfer [facility] Discharge Diagnosis: major depressive disorder recurrent episode severe. Dementia Referrals: Ulices Iverson (psychiatrist) [Other] - 06/05/22 2:15 pm (Appointment is over the phone. If you do not receive a call within five minutes after the start of your appointment, please call the number above) Therapy [Other] (Waitlist is 4-6 weeks at this time. You will be contacted once an appointment is available) Ranejet Rushing MD [Primary Care Provider] - 1 Week Discharge Medications: New acetaminophen 325 mg Tablet 650 mg PO Q6H PRN (Reason: Headache/Pain Mild Scale (1-3)) Qty: 60 0RF trazodone 50 mg Tablet 50 mg PO BEDTIME PRN (Reason: Insomnia) 30 Days Qty: 30 0RF mirtazapine 15 mg Tablet 15 mg PO BEDTIME 30 Days Qty: 30 0RF fluoxetine 20 mg Capsule 40 mg PO DAILY 30 Days Qty: 60 0RF lidocaine [Lidocaine Pain Relief] 4 % Adhesive Patch,Medicated 1 patch transdermal DAILY Qty: 30 0RF Dermacerin Cream 1 appl topical BID Qty: 454 0RF Continued multivitamin Tablet 1 tab PO DAILY Qty: 30 0RF furosemide 40 mg tablet 40 mg PO BID 30 Days Qty: 60 0RF alendronate 70 mg tablet 70 mg PO DEGROOT@0900 30 Days Qty: 5 0RF spironolactone 100 mg tablet 100 mg PO DAILY 30 Days Qty: 30 0RF simvastatin 10 mg tablet 10 mg PO BEDTIME 30 Days Qty: 30 0RF melatonin 3 mg tablet 3 mg PO BEDTIME PRN (Reason: insomnia) Qty: 30 0RF cyanocobalamin (vitamin B-12) 500 mcg tablet 500 mcg PO DAILY 30 Days Qty: 30 0RF allopurinol 300 mg tablet 300 mg PO DAILY Qty: 30 0RF albuterol sulfate 90 mcg/actuation HFA aerosol inhaler 2 puff inhalation Q4-6H PRN (Reason: shortness of breath or wheezing) 30 Days Qty: 8.5 0RF Rx Instructions: use with spacer device pregabalin 150 mg capsule 150 mg PO BID 30 Days Qty: 60 0RF Victoza 3-Toby 0.6 mg/0.1 mL (18 mg/3 mL) pen injector 1.8 mg subcut DAILY Qty: 9 0RF Tresiba FlexTouch U-200 200 unit/mL (3 mL) insulin pen 65 unit subcut DAILY Qty: 3 0RF magnesium oxide 400 mg magnesium Tablet 400 mg PO DAILY Qty: 30 0RF Skyrizi 150 mg/mL pen injector 1 ea subcut Q90D Qty: 30 0RF (DME) Wrist Brace Misc See Rx Instructions .MEDSUPPLY Qty: 1 0RF Rx Instructions: comfort form wrist rt s Changed calcitriol [Rocaltrol] 0.25 mcg capsule 0.25 mcg PO 3XW Qty: 30 0RF Rx Instructions: administer after dialysis on dialysis days Trelegy Ellipta 100-62.5-25 mcg blister with device 1 ea PO DAILY Qty: 60 0RF Discontinued tramadol 50 mg tablet 50 mg PO Q6H PRN (Reason: pain) bupropion HCl 300 mg Tablet Extended Release 24 Hr 300 mg PO QAM fluvoxamine 100 mg tablet 1 tab PO BID insulin aspart U-100 [Novolog Flexpen U-100 Insulin] 100 unit/mL (3 mL) insulin pen See Protocol SUBCUT TIDAC Protocol: Insulin Correction Scale Less than or equal to 110 ---- Give (units): 0 111 to 150 Give (units): 0 151 to 200 Give (units): 2 201 to 250 Give (units): 4 251 to 300 Give (units): 6 301 to 350 Give (units): 8 Greater than 350 Give (units): 10 Call MD if Blood Glucose > : 350 Discharge Orders: Discharge Order (Routine); Ordered 05/13/22 Ordered By: Keyshawn Garcia Diet: Advance to usual diet Activity on Discharge: As tolerated Stand Alone Forms: Patient Portal Discharge page Care Plan Goals: achieved Health Concerns: Continue treatment by outpatient providers Plan of Treatment: continue outpatient providers Assessment: elderly female with a long history of depression who was admitted for exacerbation of depressive symptoms now with dementia. Safe in the community at this moment
[2022-05-13] MEDS: Acetaminophen 325 MG TABLET 650 MG PO (13:32)
== END 2022-05-13 16:05 | DRG 885 ==
LOC: HO.ED 04-26 06:22 → HO.PGERI 04-26 12:50
PROVIDERS: Emergency Medicine Emergency Medical Services; Admitting Provider Psychiatry & Neurology Psychiatry; Emergency Provider Emergency Medicine; PCP Internal Medicine; Visit Provider Psychiatry & Neurology Psychiatry
DX: F33.2 Major depressive disorder, recurrent severe without psychotic features (principal); R45.851 Suicidal ideations; F43.23 Adjustment disorder with mixed anxiety and depressed mood; I12.9 Hypertensive chronic kidney disease with stage 1 through stage 4 chronic kidney disease, or unspecified chronic kidney disease; F41.1 Generalized anxiety disorder; E11.40 Type 2 diabetes mellitus with diabetic neuropathy, unspecified; N18.9 Chronic kidney disease, unspecified; J44.9 Chronic obstructive pulmonary disease, unspecified; E11.22 Type 2 diabetes mellitus with diabetic chronic kidney disease; Z20.822 Contact with and (suspected) exposure to COVID-19; Z87.891 Personal history of nicotine dependence; Z91.51 Personal history of suicidal behavior; Z91.040 Latex allergy status; Z88.8 Allergy status to other drugs, medicaments and biological substances; Z79.4 Long term (current) use of insulin; Z79.899 Other long term (current) drug therapy
CPT/HCPCS: 36415; 80053; 80061; 80307; 81001; 82077; 82947; 83036; 84443; 85025; 87635; 93005; 99285

== ENCOUNTER 2022-06-09 08:15 | Emergency (ER) | payer OTHER, SELFPAY ==
--- NOTE | ~2022-06-09 | XR_ITS ---
EXAMINATION: XR CHEST CLINICAL INFORMATION: SOB COMPARISON: Chest x-ray 03/07/2022 TECHNIQUE: Frontal view of the chest was obtained. FINDINGS: The lungs are hypoexpanded with elevated right hemidiaphragm. There are bilateral patchy opacities in lung bases. Heart size is normal. Vascularity slightly prominent.. There is moderate spondylosis dorsal spine. No lytic process. XR/XR chest 1V IMPRESSION: Bibasilar patchy opacities likely atelectasis. Cardiomegaly with mild pulmonary vascular congestion suspected.
[2022-06-09 08:25] VITALS: BP 159/71; PULSE 92; PULSE 94; RESP 16; TEMP 36.6; O2SAT 95; O2SAT 98; BMI 28.8
--- NOTE | 2022-06-09 08:25 | ECG_ITS ---
Test Reason : medical clearance Blood Pressure : / mmHG Vent. Rate : 084 BPM Atrial Rate : 084 BPM P-R Int : 154 ms QRS Dur : 078 ms QT Int : 366 ms P-R-T Axes : 036 -48 053 degrees QTc Int : 432 ms Normal sinus rhythm Left anterior fascicular block Anteroseptal infarct (cited on or before 05-SEP-2021) Abnormal ECG When compared with ECG of 25-APR-2022 16:57, T wave inversion no longer evident in Anterior leads Referred By: Maury Alan Electronically Signed By:TWILA DUMONT MD
--- NOTE | 2022-06-09 08:28 | ED.GENADULT ---
HPI - General Adult General Chief complaint: Psychiatric Symptoms Stated complaint: DEPRESSION Time Seen by Provider: 06/09/22 08:18 Source: patient and EMS Mode of arrival: EMS Limitations: no limitations History of Present Illness HPI narrative: 72-year-old female came in by ambulance for evaluation of depression. Patient lives home by herself mostly dependent, after 2 sons and daughter who live nearby and visits her frequently, came in patient feeling depressed, hopeless, helpless, tearful, sleepless, and eat less. No SI, no HI, no hallucination. Patient also been complaining of shortness of breath patient is known history of COPD with multiple hospitalization for exacerbation. Patient is an active cigarette smoker. Patient otherwise declined headache, no blurred vision, no fever, no chills, no abdominal pain, no CP. Related Data Home Medications Medication Instructions Recorded Confirmed cholecalciferol (vitamin D3) 25 25 mcg PO DAILY 06/09/22 06/09/22 mcg (1,000 unit) tablet (Vitamin D3) fluoxetine 20 mg capsule 60 mg PO DAILY 06/09/22 06/09/22 insulin degludec 200 unit/mL (3 55 unit subcut DAILY 06/09/22 06/09/22 mL) subcutaneous pen (Tresiba FlexTouch U-200 insulin) lidocaine 5 % topical patch 1 patch topical DAILY 06/09/22 06/09/22 omega 5-ojh-tta-fish oil 1,000 mg 1 cap PO DAILY 06/09/22 06/09/22 (120 mg-180 mg) capsule (Fish Oil) tramadol 50 mg tablet 50 mg PO Q6H PRN Pain 06/09/22 06/09/22 Previous Rx's Medication Instructions Recorded arm brace (Wrist Brace) #1 ea 06/29/20 albuterol sulfate 90 mcg/actuation 2 puff inhalation Q4-6H PRN 05/13/22 aerosol inhaler shortness of breath or wheezing 30 days #8.5 grams alendronate 70 mg tablet 70 mg PO DEGROOT@0900 30 days #5 tabs 05/13/22 allopurinol 300 mg tablet 300 mg PO DAILY #30 tabs 05/13/22 cyanocobalamin (vitamin B-12) 500 500 mcg PO DAILY 30 days #30 tabs 05/13/22 mcg tablet fluticasone fur. 100 mcg-umeclid 1 ea PO DAILY #60 ea 05/13/22 62.5 mcg-vilant 25 mcg inhalat.powder (Trelegy Ellipta) furosemide 40 mg tablet 40 mg PO BID 30 days #60 tabs 05/13/22 liraglutide 0.6 mg/0.1 mL (18 mg/3 1.8 mg (0.3 mL) subcut DAILY #9 mL 05/13/22 mL) subcutaneous pen injector (Victoza 3-Toby) magnesium oxide 400 mg PO DAILY #30 tabs 05/13/22 melatonin 3 mg tablet 3 mg PO BEDTIME PRN insomnia #30 05/13/22 tabs mirtazapine 15 mg tablet 15 mg PO BEDTIME 30 days #30 tabs 05/13/22 multivitamin 1 tab PO DAILY #30 tabs 05/13/22 pregabalin 150 mg capsule 150 mg PO BID 30 days #60 caps 05/13/22 risankizumab-rzaa 150 mg/mL 1 ea subcut Q90D #30 mL 05/13/22 subcutaneous pen injector (Skyrizi) simvastatin 10 mg tablet 10 mg PO BEDTIME 30 days #30 tabs 05/13/22 spironolactone 100 mg tablet 100 mg PO DAILY 30 days #30 tabs 05/13/22 trazodone 50 mg tablet 50 mg PO BEDTIME PRN Insomnia 30 05/13/22 days #30 tabs Allergies Allergy/AdvReac Type Severity Reaction Status Date / Time diphenhydramine Allergy Intermediate Hives Verified 05/10/22 10:43 [From Benadryl] lactic acid [From LAC-HYDRIN] Allergy Intermediate RASH Verified 04/08/22 15:07 latex [Latex] Allergy Intermediate HIVES Verified 04/08/22 15:07 varenicline [From CHANTIX] Allergy Intermediate RASH Verified 04/08/22 15:07 zolpidem [From AMBIEN] AdvReac Severe SLEEP Verified 05/10/22 10:43 WALKING Review of Systems Review of Systems: All other systems are reviewed and are negative Constitutional: Reports as per HPI and Reports no additional constitutional complaints Eyes: Reports as per HPI and Reports no additional eye complaints Reports system reviewed and no additional complaints, except as documented Cardiovascular: Reports as per HPI and Reports no additional cardiovascular complaints Respiratory: Reports as per HPI and Reports no additional respiratory complaints Gastrointestinal: Reports as per HPI and Reports no additional gastrointestinal complaints Genitourinary: Reports no additional female genitourinary complaints Musculoskeletal: Reports no additional musculoskeletal complaints Skin/Breast: Reports system reviewed and no additional complaints, except as docu Psychiatric: Reports no additional psychiatric complaints Endocrine: Reports no additional endocrine complaints Hematologic/Lymphatic: Reports no additional hematologic/lymphatic complaints Allergic/Immunologic: Reports no additional allergic/immunologic complaints Reports system reviewed and no additional complaints, except as documented and Reports Abnormal speech present [facility] Past Medical History Medical History Acute UTI Anxiety Back pain Carpal tunnel syndrome Cellulitis Chronic back pain Chronic respiratory failure CKD (chronic kidney disease) COPD (chronic obstructive pulmonary disease) Depression Diabetes Diabetic neuropathy HTN (hypertension) Hyperlipidemia Osteoporosis Pneumonia Psoriasis Sepsis Spondylosis Tobacco dependence Venous stasis dermatitis Surgical History H/O section S/P cervical spinal fusion Family History Family History Mother Diabetes Social History Social History Household Members: None Household Members Other:: daughter helps out daily Housing: Apartment Do you presently have visiting nurse or other home services: Yes Alcohol intake: never Patient Tobacco Use Status: Former Tobacco user Quit Date: 2-3 weeks ago Tobacco use type: Cigarette Cigarette Packs Per Day: 0 Cigarettes Per Day: 0 e-Cigarette/Vaping Use: Never Used Second Hand Smoke Exposure: No Use of substances other than those prescribed or required for medical reasons: No Substance Use Type: Marijuana Advance Directives: Yes Advance Directives Information Provided: Yes Advance Directives on File: No Advance Directives Date on File: 06/07/20 service: No Current occupational status: unemployed Sexual orientation: Straight/Heterosexual Physical Exam ED Vital Signs: Vital Signs - 24 hr 06/09/22 08:25 06/09/22 08:32 06/09/22 09:19 Temperature 97.8 F Pulse Rate 92 84 Respiratory Rate 16 16 Blood Pressure 125/53 L Pulse Oximetry 95 Oxygen Delivery Method Room Air 06/09/22 10:00 06/09/22 12:00 Temperature 97.4 F 98.4 F Pulse Rate 99 99 Respiratory Rate 14 14 Blood Pressure 92/65 93/69 Pulse Oximetry 93 94 Oxygen Delivery Method Room Air Room Air BMI result Body Mass Index 28.8 Vital signs have been reviewed as appeared to be correct. Blood pressure normal. Heart rate normal. Respiration rate normal. Temperature normal. Oxygen saturation normal. Appearance: Alert. Oriented X3. No acute distress. Head: Normal external exam. Normocephalic. Atraumatic. No Chambers signs noted. No raccoon eyes noted Eyes: PERRLA. EOMI. Conjunctiva and sclera normal. Eyelids normal. ENT: TM's Normal. Pharynx normal. Uvula midline. Moist mucous membranes. No trismus noted. No drooling noted. No muffled voice noted. Neck: Normal inspection. Neck supple. FROM. No adenopathy. Thyroid Normal. No meningeal signs. No neck mass noted. CVS: Normal heart rate and rhythm. Heart sound normal. No murmurs noted. Pulses normal throughout. Respiratory: No respiratory distress. Painless inspiration. Breath sounds normal. No wheezes/rales/rhonchi noted. Chest nontender. No accessory muscle usage noted or decreased air movement noted. Abdomen: Soft and nontender. Bowel sounds normal in all 4 quadrants. No distention noted. No organomegaly noted. No visible injury noted. Back: No CVA tenderness. Full range of motion noted. Skin: Skin warm and dry. Normal skin color. Normal skin turgor. No rashes/lesions/lacerations noted. Extremities: No lower extremity edema. Extremities exhibit normal range of motion. Extremities nontender. Neuro: Oriented X 3. Cranial nerve exam: II-XII are grossly intact No motor deficit. No sensory deficit. Reflexes normal. Patient Orientation: Person, Place, Time and Situation, okay hygiene and grooming. Fair eye contact, attentive, no tics or tremors. Level of Consciousness: Awake, Appropriate and Alert Patient Behavior: Appropriate, Guarded, Cooperative and Anxious Mood Description: Constricted, Blunted and Apprehensive Affect Description: Constricted, Blunted and Apprehensive Patient Cognition Impaired: No Ability to Follow Directions: Excellent Speech Pattern: Clear, Appropriate and Spontaneous Speech, nonpressured, spontaneous with regular rate and rhythm, normal volume and prosody. No dysarthria. Memory Description: Intact, Immediate Intact and Short Term Intact Hallucinations: None Delusions: Not Present Thought Process: Intact Thought Content: positive for Intact, positive for Logical, denies Suicidal Ideation and denies Homicidal Ideation. Depressive Symptoms: present. Judgement and Insight: Limited but adequate. Course Course Course Narrative: 11:15 am 06/09/2022. A 72-year-old female came in for symptoms of depression with no SI, patient had a prior mental hospitalization for severe depression in the past, patient received bronchodilator feels better, patient is medically cleared for BHN and evaluation. Physician observation will be started now for monitoring patient's COPD exacerbation and awaiting for BHN evaluation. Reevaluation(s) Reevaluation #1: Patient has been evaluated by N and the plan is to start the patient on partial program to be arranged by N to help with her depression, patient and family agreed on the plan. Hyperglycemia patient did not take her medication today was given insulin subQ will recheck BS in 1 hour. Will discharge home with daughter. Improvement of the wheezing and SOB. Time: 14:49 Medical Decision Making Lab Data Lab results reviewed: Yes I reviewed the patient's lab results. Result diagrams: 06/09/22 09:01 06/09/22 09:01 Labs: Lab Results 06/09/22 06/09/22 06/09/22 Range/Units 09:01 09:01 09:01 WBC 7.6 (4.8-10.8) X10*3/uL RBC 4.71 (4.20-5.50) X10*6/uL Hgb 14.2 (12.0-16.0) g/dl Hct 44.4 (37.0-47.0) % MCV 94.3 (80.0-98.0) fL MCH 30.1 (27.0-33.0) pg MCHC 32.0 (31.0-35.0) g/dl RDW 14.5 (11.0-16.0) % Plt Count 220 (160-400) X10*3/uL MPV 11.2 (9.4-12.3) fL Immature Gran % (Auto) 0.5 H (0.0-0.4) % Neut % (Auto) 75.8 H (45-73) % Lymph % (Auto) 15.3 L (20-40) % Jefferson % (Auto) 6.3 (2-11) % Eos % (Auto) 1.7 (0-4) % Baso % (Auto) 0.4 (0-2) % Lymph # (Auto) 1.2 (1.2-4.9) X10*3/uL Jefferson # (Auto) 0.5 (0.1-1.2) X10*3/uL Eos # (Auto) 0.1 (0.0-0.4) X10*3/uL Baso # (Auto) 0.0 (0.0-0.2) X10*3/uL Abs Immat Gran (auto) 0.04 H (0.00-0.03) X10*3/uL Absolute Neuts (auto) 5.7 (2.0-8.3) x10*3/uL Absolute Nucleated RBC 0.000 (0.0-0.012) X10*3/uL Nucleated RBC % (auto) 0.0 (0.0-0.2) /100WBC Sodium 142 (135-145) mmol/L Potassium 4.7 (3.3-5.1) mmol/L Chloride 102 (96-108) mmol/L Carbon Dioxide 30 H (22-29) mmol/L Anion Gap 15 (12-20) BUN 27 H (9-16) mg/dL Creatinine 1.15 (0.5-1.4) mg/dL Estim Creat Clear Calc 41.3 Estimated GFR 46 POC Glucose (60-115) mg/dL Random Glucose 131 H (60-115) mg/dL Calcium 9.5 (8.4-10.2) mg/dL Total Bilirubin 0.6 (0.0-1.0) mg/dL Direct Bilirubin 0.2 (0.0-0.5) mg/dL AST 30 (5-31) U/L ALT 30 (0-31) U/L Alkaline Phosphatase 84 (39-117) U/L Troponin I High Sens 12.9 (<3.5-17.0) ng/L B-Natriuretic Peptide 24 (<100) pg/mL Total Protein 6.1 L (6.5-8.0) g/dL Albumin 3.6 (3.5-5.0) g/dL Lipase 41 (8-78) U/L TSH 0.72 (0.32-4.0) uIU/mL 06/09/22 Range/Units 14:05 WBC (4.8-10.8) X10*3/uL RBC (4.20-5.50) X10*6/uL Hgb (12.0-16.0) g/dl Hct (37.0-47.0) % MCV (80.0-98.0) fL MCH (27.0-33.0) pg MCHC (31.0-35.0) g/dl RDW (11.0-16.0) % Plt Count (160-400) X10*3/uL MPV (9.4-12.3) fL Immature Gran % (Auto) (0.0-0.4) % Neut % (Auto) (45-73) % Lymph % (Auto) (20-40) % Jefferson % (Auto) (2-11) % Eos % (Auto) (0-4) % Baso % (Auto) (0-2) % Lymph # (Auto) (1.2-4.9) X10*3/uL Jefferson # (Auto) (0.1-1.2) X10*3/uL Eos # (Auto) (0.0-0.4) X10*3/uL Baso # (Auto) (0.0-0.2) X10*3/uL Abs Immat Gran (auto) (0.00-0.03) X10*3/uL Absolute Neuts (auto) (2.0-8.3) x10*3/uL Absolute Nucleated RBC (0.0-0.012) X10*3/uL Nucleated RBC % (auto) (0.0-0.2) /100WBC Sodium (135-145) mmol/L Potassium (3.3-5.1) mmol/L Chloride (96-108) mmol/L Carbon Dioxide (22-29) mmol/L Anion Gap (12-20) BUN (9-16) mg/dL Creatinine (0.5-1.4) mg/dL Estim Creat Clear Calc Estimated GFR POC Glucose 306 H (60-115) mg/dL Random Glucose (60-115) mg/dL Calcium (8.4-10.2) mg/dL Total Bilirubin (0.0-1.0) mg/dL Direct Bilirubin (0.0-0.5) mg/dL AST (5-31) U/L ALT (0-31) U/L Alkaline Phosphatase (39-117) U/L Troponin I High Sens (<3.5-17.0) ng/L B-Natriuretic Peptide (<100) pg/mL Total Protein (6.5-8.0) g/dL Albumin (3.5-5.0) g/dL Lipase (8-78) U/L TSH (0.32-4.0) uIU/mL Imaging Data Chest x-ray: Attestation: I personally reviewed and interpreted this imaging study as follows: Radiologist's impression: Bibasilar patchy opacities likely atelectasis. ?Cardiomegaly with mild pulmonary vascular congestion suspected. ? ECG Data Attestation: I personally reviewed and interpreted this ECG as follows: Interpretation: Normal sinus rhythm at 84 beats per minutes, left axis deviation, normal intervals, Q-wave in the anterior septal V2/V3, no ST-T changes. Discharge Plan Discharge Clinical Impression: Depressed, COPD exacerbation, Hyperglycemia due to diabetes mellitus Patient Disposition: Home, Self-Care Instructions: Depression (ED) Additional Instructions: [facility] will contact you with the information of the partial program to help and manage your depression. Resume using insulin at home as prescribed by your PCP. Prescriptions: No Action trazodone 50 mg Tablet 50 mg PO BEDTIME PRN (Reason: Insomnia) 30 Days Qty: 30 0RF mirtazapine 15 mg Tablet 15 mg PO BEDTIME 30 Days Qty: 30 0RF multivitamin Tablet 1 tab PO DAILY Qty: 30 0RF furosemide 40 mg tablet 40 mg PO BID 30 Days Qty: 60 0RF alendronate 70 mg tablet 70 mg PO DEGROOT@0900 30 Days Qty: 5 0RF spironolactone 100 mg tablet 100 mg PO DAILY 30 Days Qty: 30 0RF simvastatin 10 mg tablet 10 mg PO BEDTIME 30 Days Qty: 30 0RF melatonin 3 mg tablet 3 mg PO BEDTIME PRN (Reason: insomnia) Qty: 30 0RF cyanocobalamin (vitamin B-12) 500 mcg tablet 500 mcg PO DAILY 30 Days Qty: 30 0RF allopurinol 300 mg tablet 300 mg PO DAILY Qty: 30 0RF albuterol sulfate 90 mcg/actuation HFA aerosol inhaler 2 puff inhalation Q4-6H PRN (Reason: shortness of breath or wheezing) 30 Days Qty: 8.5 0RF Rx Instructions: use with spacer device pregabalin 150 mg capsule 150 mg PO BID 30 Days Qty: 60 0RF Victoza 3-Toby 0.6 mg/0.1 mL (18 mg/3 mL) pen injector 1.8 mg subcut DAILY Qty: 9 0RF Trelegy Ellipta 100-62.5-25 mcg blister with device 1 ea PO DAILY Qty: 60 0RF magnesium oxide 400 mg magnesium Tablet 400 mg PO DAILY Qty: 30 0RF Skyrizi 150 mg/mL pen injector 1 ea subcut Q90D Qty: 30 0RF tramadol 50 mg Tablet 50 mg PO Q6H PRN (Reason: Pain) lidocaine 5 % Adhesive Patch,Medicated 1 patch TOPICAL DAILY Rx Instructions: leave on most painful area for up to 12 hrs cholecalciferol (vitamin D3) [Vitamin D3] 25 mcg (1,000 unit) Tablet 25 mcg PO DAILY omega 0-oae-diz-fish oil [Fish Oil] 1,000 mg (120 mg-180 mg) Capsule 1 cap PO DAILY fluoxetine 20 mg capsule 60 mg PO DAILY insulin degludec [Tresiba FlexTouch U-200] 200 unit/mL (3 mL) insulin pen 55 unit subcut DAILY (DME) Wrist Brace Misc See Rx Instructions .MEDSUPPLY Qty: 1 0RF Rx Instructions: comfort form wrist rt s Referrals: Ranjeet Rushing MD [Primary Care Provider] -
[2022-06-09 08:32] VITALS: BP 125/53
--- OUTSIDE RECORDS SUMMARY | 2022-06-09 08:43 | XMS_ITS | Continuity of Care Document ---
:[address] [facility] Address [address] [place] [address]- Care Team Providers Name Role Phone Kristan SUTTON, Ranjeet Beatty Primary Care Physician Encounter [facility] Date(s): 09/28/21 - 10/05/21 [facility] [address] [place] [address]- Attending Physician: Matilda LOZADA, Chari Santos Allergies, Adverse Reactions, Alerts Substance Reaction Severity Status Ambien Active Benadryl Active Latex Active Lac-Hydrin Active Immunizations Given and Recorded Vaccine Date Status Refusal Reason influenza virus vaccine, inactivated 06/12/21 Recorded influenza virus vaccine, inactivated 06/17/19 Recorded influenza virus vaccine, inactivated 03/30/18 Recorded influenza virus vaccine, inactivated1 05/28/17 Given influenza virus vaccine, inactivated2 05/31/16 Recorded influenza virus vaccine, inactivated 05/22/15 Recorded influenza virus vaccine, inactivated 05/05/15 Recorded influenza virus vaccine, inactivated 05/29/14 Recorded influenza virus vaccine, inactivated 05/05/13 Recorded influenza virus vaccine, inactivated 04/28/12 Recorded influenza virus vaccine, inactivated 06/11/11 Recorded influenza virus vaccine, inactivated 03/25/10 Recorded influenza virus vaccine, inactivated3 09/14/09 Given SARS-CoV-2 (COVID-19) mRNA BNT-162b2 vac 06/12/21 Recorde d SARS-CoV-2 (COVID-19) mRNA BNT-162b2 vac 09/24/20 Recorde d SARS-CoV-2 (COVID-19) mRNA BNT-162b2 vac 09/03/20 Recorde d zoster vaccine, inactivated 05/10/20 Recorded zoster vaccine, inactivated 03/30/18 Recorded zoster vaccine, inactivated 02/09/18 Recorded Influenza Virus Vaccine (oldterm) 06/17/19 Recorded Influenza Virus Vaccine (oldterm)4 05/05/08 Given Influenza Virus Vaccine (oldterm)5 07/30/07 Given Influenza Virus Vaccine (oldterm)6 05/29/06 Given tetanus-diphtheria toxoids (Td)7 03/25/17 Recorded Zoster Vaccine Live8, 9 08/30/15 Recorded pneumococcal 13-valent vaccine 06/21/15 Given pneumococcal 23-valent vaccine 10/05/13 Recorded tetanus/diphtheria/pertussis, acel(Tdap) 08/08/10 Recorde d Tet/Diphth/Acel, Pertussis (oldterm)10 07/19/08 Given Pneumococcal Poly (PPV23) (oldterm)11 07/19/08 Given 1Result Comment: [05/28/2017] [facility]: [id number] History: [id number] Note: VIS GIVEN-DATED Admin Note: vis [id number] Note: VIS [id number] Note: [id number] History: [facility] [id number] History: [facility] [id number] Comment: [10/17/2015] PER NICO AT [id number] Note: VIS [id number] Note: VIS GIVEN Medications 12 inch Grab Bars 12 inch Grab Bars, See Instructions, # 2 each, Refills 0, Tot. Refills 0, Maintenance, Grab bars : Length 12inches Use as directed DX Unsteady Gait ICD10 R26.81 HT: 5'3 Weight 162lbs Length of need Lifetime, 07/07/20 11:45:00 EST, Supply Start Date: 07/07/20 Status: Orderedalbuterol 90 mcg/inh inhalation powder 2 puffs, Inhalation, Every 6 hours, PRN as needed, # 1 each, 11 Refills, Maintenance, 05/05/20 14:02:00 EDT, Powder, [facility]/pharmacy #[id number], 2 puffs Inhalation Every 6 hours,PRN:as needed, 160.02, cm, 05/05/20 13:43:00 EDT, Height, 73.6, kg, 04/18/20 10:1... Start Date: 05/05/20 Status: Orderedalendronate 70 mg oral tablet 1 tablet, By Mouth, Every week, # 12 tablet, 6 Refills, Maintenance, 05/18/21 16:07:00 EDT, [id number], 160, cm, 12/25/20 14:20:00 EDT, Height, 77.5, kg, 10/05/20 14:31:00 EST, Dry Weight Start Date: 01/09/21 Status: Orderedallopurinol 300 mg oral tablet 1, tablet, By Mouth, Daily, # 90 tablet, Refills 1, Route to Pharmacy Electronically, [id number], 160, cm, 06/19/21 13:57:00 EDT, Height, 77.27, kg, 03/24/21 20:58:00 EDT, Dry Weight Start Date: 07/09/21 Status: OrderedBACK BRACE BACK BRACE, See Instructions, # 1 each, Refills 0, Tot. Refills 0, Maintenance, DX BACK PAIN M54.9 DANTE LIFETIME HT 5'3 WT 182 LB, 07/23/16 14:35:27, Compound Start Date: 07/23/16 Status: OrderedbuPROPion 300 mg/24 hours (XL) oral tablet, extended release 1 tablet, By Mouth, Daily, # 30 tablet, 5 Refills, Maintenance, 08/30/21 7:54:00 EST, [facility]/pharmacy #[id number], 160, cm, 07/26/21 10:45:00 EST, Height, 77.27, kg, 03/24/21 20:58:00 EDT, Dry Weight Start Date: 08/30/21 Status: OrderedCompression Stockings See Instructions, # 1 each, Refills 1, Tot. Refills 1, Maintenance, surgical, knee length 20-30 mm Hg venoustasis changes, 05/05/20 14:09:00 EDT, Compound Start Date: 05/05/20 Status: OrderedCompression Stockings See Instructions, # 1 pair, Refills 1, Tot. Refills 1, Maintenance, surgical, thigh high length 20-30 mm Hg DX: Swelling of BLE. Lifetime use, 05/11/19 15:59:03 EDT, Compound Start Date: 05/11/19 Status: OrderedCVS VITAMIN B-12 500 MCG TAB [facility] VITAMIN B-12 500 MCG TAB, 1, tablet, By Mouth, Daily, # 90 tablet, 1 Refills, 160, cm, 07/26/21 10:45:00 EST, Height, 77.27, kg, 03/24/21 20:58:00 EDT, Dry Weight Start Date: 08/27/21 Status: Orderedcyanocobalamin 500 mcg oral tablet 1 tablet = 500 mcg, By Mouth, Daily, # 90 tablet, 1 Refills, Maintenance, 09/18/21 11:52:00 EST, Tablet, [facility]/pharmacy #[id number], 160, cm, 09/14/21 11:51:00 EST, Height, 75, kg, 09/14/21 11:51:00 EST, Dry Weight Start Date: 09/18/21 Status: OrderedDX: Neck Pain DX: Neck Pain, See Instructions, # 1 each, Refills 0, Tot. Refills 0, Maintenance, Soft Neck Collar,01/19/16 14:36:17, Compound Start Date: 01/19/16 Status: OrderedElectric recliner Electric recliner, See Instructions, # 1 each, Refills 0, Tot. Refills 0, Maintenance, Unsteady gaitPoor balance Use daily, 09/28/21 15:33:00 EST, Supply Start Date: 09/28/21 Status: OrderedFish Oil = 1,000 mg, By Mouth, Daily, 0 Refills, Maintenance, 11/17/15 13:08:57 EDT Start Date: 11/17/15 Status: OrderedfluvoxaMINE 50 mg oral tablet 1 tablet = 50 mg, By Mouth, Daily at bedtime, REPLACES ZOLOFT, # 30 tablet, 0 Refills, Maintenance, 09/28/21 15:23:00 EST, Tablet, [facility]/pharmacy #[id number], Partial fill upon patient request if the prescription is for a schedule II opioid drug., 160, cm, 02... Start Date: 09/28/21 Status: OrderedFreestyle Lite Lancets See Instructions, # 100 each, Refills 5, Tot. Refills 5, Maintenance, TEST BS TID DX E11.9 IDDMII, 09/16/19 13:37:00 EST, Compound, 160.02, cm, 09/06/19 12:51:00 EST, Height, 81.6, kg, 07/27/19 14:52:00 EST, Dry Weight Start Date: 09/16/19 Status: OrderedFreestyle Lite Monitor See Instructions, # 1 each, Refills 0, Tot. Refills 0, Maintenance, TEST BS TID DX E11.9 IDDMII, 05/11/20 11:06:00 EDT, Compound, 160.02, cm, 05/09/20 12:34:00 EDT, Height, 73.6, kg, 04/18/20 10:19:00 EDT, Dry Weight Start Date: 05/11/20 Status: OrderedFreestyle Lite Test Strips See Instructions, # 100 each, Refills 11, Tot. Refills 11, Maintenance, TEST BS TID DX E11.9 IDDMII,09/02/19 11:08:00 EST, Compound, 160.02, cm, 08/16/19 12:59:00 EST, Height, 81.6, kg, 07/27/19 14:52:00 EST, Dry Weight Start Date: 09/02/19 Status: Orderedfurosemide 40 mg oral tablet 1, tablet, By Mouth, 2 times a day, # 180 tablet, Refills 1, Tot. Refills 1, Maintenance, 02/06/21 9:05:00 EDT, Route to Pharmacy Electronically, [facility]/pharmacy #[id number], 160, cm, 01/25/21 14:11:00 EDT, Height, 77.5, kg, 10/05/20 14:31:00 EST, Dry Weight Start Date: 02/06/21 Stop Date: 08/05/21 Status: OrderedLyrica 150 mg oral capsule 1 capsule = 150 mg, By Mouth, 2 times a day, DOSAGE INCREASE, # 60 capsule, 3 Refills, Maintenance, 07/09/21 14:12:00 EST, Capsule, [facility]/pharmacy #[id number], 160, cm, 06/19/21 13:57:00 EDT, Height, 77.27, kg, 03/24/21 20:58:00 EDT, Dry Weight Start Date: 07/09/21 Status: Orderedmagnesium oxide 400 mg (240 mg elemental magnesium) oral tablet 1 tablet, By Mouth, Daily, # 90 tablet, 0 Refills, Acute, 09/20/20 12:20:00 EST, [id number], 90, TAKE 1 TABLET BY MOUTH DAILY, 160, cm, 09/12/20 14:03:00 EST, Height, 71.3, kg, 08/08/20 7:00:00 EST, Dry Weight Start Date: 09/20/20 Status: Orderedmagnesium oxide 400 mg oral tablet 1 tablet = 400 mg, By Mouth, Daily, # 100 tablet, 2 Refills, Maintenance, 06/05/21 11:32:00 EDT, Tablet, [facility]/pharmacy #[id number], Partial fill upon patient request if the prescription is for a schedule II opioid drug., 160, cm, 05/21/21 11:03:00 EDT, Heigh... Start Date: 06/05/21 Status: OrderedMelatonin 3 mg oral tablet 1 tablet = 3 mg, By Mouth, Daily at bedtime, PRN for insomnia, [facility], # 90 tablet, 3 Refills, Maintenance, 04/24/20 9:53:00 EDT, Tablet, [facility]/pharmacy #[id number], 1 tablet By Mouth Daily at bedtime,PRN:for insomnia,Instr:[facility], 160.02, cm, 04/18/20... Start Date: 04/24/20 Status: OrderedMiconazole 2% Topical Ointment 1 applicator, Topically, Daily, 0 Refills, Maintenance, Ointment Start Date: 03/27/21 Status: OrderedMilk of Magnesia Liquid 30 mL, By Mouth, Daily, PRN Constipation, 0 Refills, Maintenance, 08/17/20 11:31:00 EST, Suspension,Partial fill upon patient request if the prescription is for a schedule II opioid drug. Start Date: 08/17/20 Status: OrderedMultivitamin 1 tablet, By Mouth, Daily, 0 Refills, Maintenance, 12/09/19 16:05:00 EDT Start Date: 12/09/19 Status: OrderedNovoLOG FlexPen 100 units/mL subcutaneous solution See Instructions, Subcutaneous injection TID before meals per sliding scale: 150-200: 6 units 201-250: 8 units 251-300: 10 units 301-350: 12 units 351-400: 14 units before breakfast, # 30 mL, 6 Refills, Maintenance, 06/11/21 16:40:00 EDT, Injec... Start Date: 06/11/21 Status: OrderedPen [place], 31 G x 5 mm BD Ultra Fine III See Instructions, # 200 each, Refills 5, Tot. Refills 5, Maintenance, To inject insulin BID for DM II E11.9 PER CHARI ANDREWC, 10/06/20 10:54:00 EST, SHORT, Compound, 160, cm, 10/05/20 14:31:00 EST, Height, 77.5, kg, 10/05/20 14:31:00 EST, Dry W... Start Date: 10/06/20 Status: Orderedsimethicone 80 mg oral tablet, chewable 80 mg, Chew, 3 times a day, PRN, Refills 0, Maintenance, Gas, 03/27/21 9:34:00 EDT, Partial fill upon patient request if the prescription is for a schedule II opioid drug. Start Date: 03/27/21 Status: Orderedsimvastatin 10 mg oral tablet 10 mg, 1, tablet, By Mouth, Daily at bedtime, # 90 tablet, Refills 1, Tot. Refills 1, Maintenance, 09/15/21 17:53:00 EST, Route to Pharmacy Electronically, [facility]/pharmacy #[id number], 160, cm, 09/14/21 11:51:00 EST, Height, 75, kg, 09/14/21 11:51:00 EST, Dry... Start Date: 09/15/21 Status: Orderedspironolactone 100 mg oral tablet 100 mg, 1, tablet, By Mouth, Daily, # 90 tablet, Refills 1, Tot. Refills 1, Maintenance, 07/23/21 13:10:00 EST, Route to Pharmacy Electronically, [facility]/pharmacy #[id number], Partial fill upon patient request if the prescription is for a schedule II opioid thomas... Start Date: 07/23/21 Stop Date: 01/19/22 Status: OrderedtraMADol 50 mg oral tablet See Instructions, TAKE 1-2 TABLETS BY MOUTH EVERY 6 HOURS SCHEDULE FOLLOW VISIT, NEEDED FOR PAIN,# 240 tablet, 5 Refills, Maintenance, 05/31/21 9:52:00 EDT, [facility]/pharmacy #[id number], 160, cm, 05/21/21 11:03:00 EDT, Height, 77.27, kg, 03/24/21 20:58:00 E... Start Date: 05/31/21 Status: OrderedTransfer bench Transfer bench, See Instructions, # 1 each, Refills 0, Tot. Refills 0, Maintenance, use as directed.DX Unsteady gait. ICD 10 R26.81 length of need: Lifetime wt:162lbs ht 5'3, 07/07/20 11:31:00 EST, Supply Start Date: 07/07/20 Status: OrderedTrelegy Ellipta inhalation powder 1 puffs, Inhalation, Daily, at the same time every day, # 3 each, 3 Refills, Maintenance, 04/19/21 11:35:00 EDT, [id number], Partial fill upon patient request if the prescription is fora schedule II opioid drug., 160, cm, 04/19/21 11:... Start Date: 04/19/21 Status: OrderedTresiba See Instructions, 78 units at bedtime daily, 0 Refills, Maintenance, 10/23/20 13:48:00 EST, Partial fill upon patient request if the prescription is for a schedule II opioid drug. Start Date: 10/23/20 Status: OrderedTresiba FlexTouch 200 units/mL subcutaneous solution See Instructions, INJECT SUBCUTANEOUSLY TAKING 65 UNITS DAILY, MAX DOSE 140 UNITS, # 9 Unknown, 11 Refills, Soft Stop, 07/26/21 11:05:00 EST, [id number], 160, cm, 07/26/21 10:45:00 EST, Height,77.27, kg, 03/24/21 20:58:00 EDT, Dry Weight Start Date: 07/26/21 Status: OrderedTums 500 mg oral tablet, chewable 500 mg, 1, tablet, Chew, Every 4 hours, PRN, Maintenance, Indigestion, 08/30/20 15:45:00 EST, Partial fill upon patient request Start Date: 08/30/20 Status: OrderedTylenol 325 mg oral tablet 650 mg, 2, tablet, By Mouth, Every 6 hours, Refills 0, Maintenance, 08/17/20 11:28:00 EST, Partial fill upon patient request if the prescription is for a schedule II opioid drug. Start Date: 08/17/20 Status: OrderedVictoza 18 mg/3 mL subcutaneous solution See Instructions, INJECT 1.8 MG UNDER THE SKIN ONCE DAILY, # 9 Unknown, 5 Refills, [id number], 160, cm, 09/07/21 15:03:00 EST, Height, 77.27, kg, 03/24/21 20:58:00 EDT, Dry Weight Start Date: 09/11/21 Status: OrderedVitamin D3 1000 intl units oral capsule 1 capsule = 1,000 International_Units, By Mouth, Daily, # 90 capsule, 1 Refills, Maintenance, 09/25/20 7:44:00 EST, Capsule, [facility]/pharmacy #[id number], resent from 08/14, 160, cm, 09/12/20 14:03:00 EST, Height, 71.3, kg, 08/08/20 7:00:00 EST, Dry Weight Start Date: 09/25/20 Status: OrderedZoloft 50 mg oral tablet 1 tablet = 50 mg, By Mouth, Daily, TAPERING SCHEDULE, # 30 tablet, 0 Refills, Maintenance, 09/28/21 15:23:00 EST, Tablet, [facility]/pharmacy #[id number], Partial fill upon patient request if the prescription is for a schedule II opioid drug., 160, cm, 09/28/21 14... Start Date: 09/28/21 Status: Ordered Problem List Condition Effective Dates Status Health Status Informant Unsteady gait(Confirmed) Active Adenomatous polyp of colon(Confirmed)1 Active Anxiety(Confirmed) Active Carpal tunnel(Confirmed) 04/14/08 Active Recurrent cellulitis of lower Active leg(Confirmed) Cerebrovascular disease(Confirmed)2 Active Cervical disc disease(Confirmed) Active Cervical radiculopathy at Active C6(Confirmed) Chronic edema(Confirmed) 04/14/08 Active Chronic intractable pain(Confirmed) 10/12/09 Active Chronic kidney disease (CKD), stage Active III (moderate)(Confirmed) Cigarette smoker(Confirmed) Active Decreased ROM of neck(Confirmed) Active Diabetes mellitus - 07/19/08 Active insulin(Confirmed)3 Diabetic neuropathy(Confirmed) Active Current use of insulin(Confirmed) Active Nephropathy, diabetic(Confirmed) Active Difficulty sleeping(Confirmed) Active Gout(Confirmed) Active History of fracture of Active finger(Confirmed) H/O urinary tract infection with 2009 Active sepsis, proteus(Confirmed) History of nephrolithiasis(Confirmed) Active HLD (hyperlipidemia)(Confirmed) Active Hypertension(Confirmed) Active Lumbosacral spondylosis without Active myelopathy(Confirmed) OA (osteoarthritis), Active cervical(Confirmed) Osteoporosis(Confirmed) Active *FORMERLY [facility] [phone] CAR SALESMAN [place] Active Nathaniel(Confirmed) Picking own skin(Confirmed) Active 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 50-70% bilaterally.3Patient's segment assembler is [facility] and patient sees Dr. Gume Mart Vital Signs Most recent to oldest [Reference Range]: 1 Height 160 cm (09/28/21 2:51 PM) Oxygen Saturation [94-100 %] 96 % (09/28/21 2:51 PM) Pulse Rate [55-90 bpm] 87 bpm (09/28/21 2:51 PM) Blood Pressure [90-138/55-84 mm Hg] 126/64 mm Hg (09/28/21 2:51 PM) Respiratory Rate [16-30 br/min] 16 br/min (09/28/21 2:51 PM) Mode of Delivery (Oxygen) Room air (09/28/21 2:51 PM) Blood pressure sites Arm, right (09/28/21 2:51 PM) Social History Social History Type Response Smoking Status Former smoker, quit more mark n 30 days ago entered on: 09/28/21 Sex
--- OUTSIDE RECORDS SUMMARY | 2022-06-09 08:43 | XMS_ITS | Continuity of Care Document ---
:1950 Author Organization [facility] Address [address] [place] [address]- Care Team Providers Name Role Phone Ranjeet Rushing MD Primary Care Physician [facility]counter [facility] Date(s): 05/31/20 - 06/30/20 [facility] [address] [place] [address]- Allergies, Adverse Reactions, Alerts Substance Reaction Severity Status Lac-Hydrin Active Ambien Active Benadryl Active Latex Active Immunizations Given and Recorded Vaccine Date Status Refusal Reason zoster vaccine, inactivated 05/10/20 Recorded zoster vaccine, inactivated 03/30/18 Recorded influenza virus vaccine, inactivated 06/17/19 Recorded influenza virus vaccine, inactivated 03/30/18 Recorded influenza virus vaccine, inactivated1 05/28/17 Given influenza virus vaccine, inactivated2 05/31/16 Recorded influenza virus vaccine, inactivated 05/22/15 Recorded influenza virus vaccine, inactivated3 09/14/09 Given Influenza Virus Vaccine (oldterm) 06/17/19 Recorded Influenza Virus Vaccine (oldterm)4 05/05/08 Given Influenza Virus Vaccine (oldterm)5 07/30/07 Given Influenza Virus Vaccine (oldterm)6 05/29/06 Given tetanus-diphtheria toxoids (Td)7 03/25/17 Recorded Zoster Vaccine Live8, 9 08/30/15 Recorded pneumococcal 13-valent vaccine 06/21/15 Given Tet/Diphth/Acel, Pertussis (oldterm)10 07/19/08 Given Pneumococcal Poly (PPV23) (oldterm)11 07/19/08 Given 1Result Comment: [05/28/2017] [facility]: [id number] History: [id number] Note: VIS GIVEN-DATED Admin Note: vis [id number] Note: VIS [id number] Note: [id number] History[place] [facility] [id number] History: [facility] DEANGELO Gray Comment: [10/17/2015] PER NICO AT [id number] Note: VIS [id number] Note: VIS GIVEN Medications albuterol 90 mcg/inh inhalation powder 2 puffs, Inhalation, Every 6 hours, PRN as needed, # 1 each, 11 Refills, Maintenance, 05/05/20 14:02:00 EDT, Powder, [facility]/pharmacy #[id number], 2 puffs Inhalation Every 6 hours,PRN:as needed, 160.02, cm, 05/05/20 13:43:00 EDT, Height, 73.6, kg, 04/18/20 10:1... Start Date: 05/05/20 Status: Orderedalendronate 70 mg oral tablet 1 tablet, By Mouth, Every week, # 12 tablet, 0 Refills, Maintenance, 06/01/20 9:05:00 EDT, [facility]/pharmacy #[id number], 160.02, cm, 05/09/20 12:34:00 EDT, Height, 73.6, kg, 04/18/20 10:19:00 EDT, Dry Weight Start Date: 06/01/20 Status: Orderedallopurinol 300 mg oral tablet 1, tablet, By Mouth, Daily, # 90 tablet, Refills 0, Tot. Refills 0, Maintenance, 04/05/20 9:38:00 EDT, Route to Pharmacy Electronically, [facility]/pharmacy #[id number], 160.02, cm, 03/29/20 10:57:00 EDT, Height, 81.6, kg, 07/27/19 14:52:00 EST, Dry Weight Start Date: 04/05/20 Status: OrderedBACK BRACE BACK BRACE, See Instructions, # 1 each, Refills 0, Tot. Refills 0, Maintenance, DX BACK PAIN M54.9 DANTE LIFETIME HT 5'3 WT 182 LB, 07/23/16 14:35:27, Compound Start Date: 07/23/16 Status: OrderedCannabis (Schedule I Substance) 0 Refills, Maintenance, 01/31/16 14:20:21 Start Date: 01/31/16 Status: OrderedCeleBREX 200 mg oral capsule 1 capsule = 200 mg, By Mouth, Daily, # 7 capsule, 0 Refills, Maintenance, 06/01/20 12:01:00 EDT, Capsule, [facility]/pharmacy #[id number], 160.02, cm, 06/01/20 11:03:00 EDT, Height, 73.6, kg, 04/18/20 10:19:00 EDT,Dry Weight Start Date: 06/01/20 Stop Date: 06/08/20 Status: OrderedCompression Stockings See Instructions, # 1 [...] Compound Start Date: 05/11/19 Status: OrderedCVS VITAMIN D3 1,000 UNIT SFGL See Instructions, # 90 capsule, TAKE 1 CAPSULE BY MOUTH EVERY DAY, [id number] Start Date: 04/20/19 Status: Orderedcyanocobalamin 500 mcg oral tablet 1 tablet = 500 mcg, By Mouth, Daily, # 90 tablet, 0 Refills, Maintenance, 02/11/20 13:33:00 EDT, Tablet, [facility]/pharmacy #[id number], 160.02, cm, 02/11/20 13:03:00 EDT, Height, 81.6, kg, 07/27/19 14:52:00 EST, Dry Weight Start Date: 02/11/20 Status: Orderedcyclobenzaprine 5 mg oral tablet 1 tablet = 5 mg, By Mouth, 3 times a day, 0 Refills, Maintenance, 06/01/20 11:12:00 EDT Start Date: 06/01/20 Status: OrderedDepends Under Pants Depends Under Pants, See Instructions, # 3 box, Refills 11, Tot. Refills 11, Maintenance, To use forincontinence. Diagnosis Kidney Disease Stage 3Life Large, 04/14/19 16:36:07 EDT, Compound Start Date: 04/14/19 Status: OrderedDX: Neck Pain DX: Neck Pain, See Instructions, # 1 each, Refills 0, Tot. Refills 0, Maintenance, Soft Neck Collar,01/19/16 14:36:17, Compound Start Date: 01/19/16 Status: OrderedFish Oil By Mouth, 0 Refills, Maintenance, 11/17/15 13:08:57 Start Date: 11/17/15 Status: OrderedFreestyle Lite Lancets See Instructions, # [...] times a day, # 180 tablet, Refills 0, Tot. Refills 0, Maintenance, 04/07/20 11:50:00 EDT, Route to Pharmacy Electronically, [facility]/pharmacy #[id number], 160.02, cm, 03/29/20 10:57:00 EDT,Height, 81.6, kg, 07/27/19 14:52:00 EST, Dry Weight Start Date: 04/07/20 Status: Orderedgabapentin 300 mg oral capsule 300 mg, 1, capsule, By Mouth, 3 times a day, # 90 capsule, Refills 5, Tot. Refills 5, Maintenance, 04/13/20 12:42:00 EDT, Route to Pharmacy Electronically, [facility]/pharmacy #[id number], 160.02, cm, 03/29/20 10:57:00 EDT, Height, 81.6, kg, 07/27/19 14:52:00 EST,... Start Date: 04/13/20 Stop Date: 10/10/20 Status: OrderedHumira 40 mg subcutaneous solution Subcutaneous Infusion, Once, 0 Refills, Maintenance, 11/02/19 10:31:00 EDT Start Date: 11/02/19 Stop Date: 11/16/19 Status: OrderedLyrica 75 mg oral capsule 1 capsule = 75 mg, By Mouth, 2 times a day, # 60 capsule, 1 Refills, Maintenance, 05/12/20 14:54:00 EDT, Capsule, [facility]/pharmacy #[id number], 160.02, cm, 05/09/20 12:34:00 EDT, Height, 73.6, kg, 04/18/20 10:19:00 EDT, Dry Weight Start Date: 05/12/20 Status: Orderedmagnesium oxide 400 mg oral tablet 1 tablet = 400 mg, By Mouth, Daily, PER RAJNI CARDONA, # 90 tablet, 0 Refills, Maintenance, 06/28/20 12:11:00 EST, [facility]/pharmacy #[id number], 160.02, cm, 06/01/20 11:03:00 EDT, Height, 73.6, kg, 04/18/20 10:19:00 EDT, Dry Weight Start Date: 06/28/20 Status: OrderedMelatonin 3 mg oral tablet 1 tablet = 3 mg, By Mouth, Daily at bedtime, PRN for insomnia, [facility], # 90 tablet, 3 Refills, Maintenance, 04/24/20 9:53:00 EDT, Tablet, [facility]/pharmacy #[id number], 1 tablet By Mouth Daily at bedtime,PRN:for insomnia,Instr:[facility] brand, 160.02, cm, 04/18/20... Start Date: 04/24/20 Status: OrderedMiscellaneous Rx 1, tablet, By Mouth, Daily, # 90 tablet, 3 Refills, Maintenance, 01/21/20 7:53:00 EDT, 160.02, cm, 01/07/20 15:07:00 EDT, Height, 81.6, kg, 07/27/19 14:52:00 EST, Dry Weight Start Date: 01/21/20 Status: OrderedMultivitamin Daily, 0 Refills, Maintenance, 12/09/19 16:05:00 EDT Start Date: 12/09/19 Status: OrderedNovoLOG FlexPen 100 units/mL injectable solution See Instructions, Inject SQ 3 times a day before meals if Blood Sugar 150-200: 6 units, 201-250: 8 units, 251-300: 10 units,, # 5 each, 5 Refills, Maintenance, 02/21/20 11:53:00 EDT, [facility]/pharmacy #[id number], 301-350: 12 units, 351-400: 14 units, 401-450: 1... Start Date: 02/21/20 Status: OrderedoxyCODONE 5 mg oral capsule 1 capsule = 5 mg, By Mouth, Every 6 hours, PRN as needed for pain, 0 Refills, Maintenance, 06/01/20 11:12:00 EDT, Capsule, Partial fill upon patient request Start Date: 06/01/20 Status: OrderedPen [place], 31 G x 5 mm BD Ultra Fine III See Instructions, # 200 each, Refills 5, Tot. Refills 5, Maintenance, To inject insulin BID for DM II E11.9 PER RAJNI CARDONA, 12/28/18 12:38:05 EDT, SHORT, Compound Start Date: 12/28/18 Status: Orderedsimvastatin 10 mg oral tablet 10 mg, 1, tablet, By Mouth, Daily at bedtime, # 90 tablet, Refills 1, Tot. Refills 1, Maintenance, 06/28/20 9:31:00 EST, Route to Pharmacy Electronically, [facility]/pharmacy #[id number], 160.02, cm, 06/01/20 11:03:00 EDT, Height, 73.6, kg, 04/18/20 10:19:00 EDT,... Start Date: 06/28/20 Status: Orderedspironolactone 100 mg oral tablet 1, tablet, By Mouth, Daily, # 30 tablet, Refills 2, Tot. Refills 2, Maintenance, 05/16/20 16:31:00 EDT, Route to Pharmacy Electronically, [facility]/pharmacy #[id number], 160.02, cm, 05/09/20 12:34:00 EDT, Height, 73.6, kg, 04/18/20 10:19:00 EDT, Dry Weight Start Date: 05/16/20 Status: OrderedtraMADol 50 mg oral tablet See Instructions, PRN Pain , Severe, 1-2 tablets by mouth every 6 hours Schedule follow visit, # 240tablet, 1 Refills, Soft Stop, 05/19/20 16:27:00 EDT, [facility]/pharmacy #[id number], 160.02, cm, 05/09/20 12:34:00 EDT, Height, 73.6, kg, 04/18/20 10:19:00 EDT,... Start Date: 05/19/20 Status: OrderedTrelegy Ellipta inhalation powder 1 puffs, Inhalation, Daily, at the same time every day, # 60 each, 0 Refills, Maintenance, 12/30/18 14:27:13 EDT, Powder Start Date: 12/30/18 Status: OrderedTresiba FlexTouch 200 units/mL subcutaneous solution See Instructions, INJECT SUBCUTANEOUSLY TAKING 76 UNITS DAILY, MAX DOSE 140 UNITS, # 9 Unknown, 5 Refills, Soft Stop, 12/16/19 15:45:00 EDT, [facility]/pharmacy #[id number], 160.02, cm, 11/02/19 15:34:00 EDT, Height, 81.6, kg, 07/27/19 14:52:00 EST, Dry Weight Start Date: 12/16/19 Status: OrderedVictoza 18 mg/3 mL subcutaneous solution See Instructions, INJECT 1.8 MG UNDER THE SKIN ONCE DAILY, # 9 Unknown, 5 Refills, 06/20/20 15:08:00EDT, [facility]/pharmacy #[id number], 160.02, cm, 06/01/20 11:03:00 EDT, Height, 73.6, kg, 04/18/20 10:19:00 EDT,Dry Weight Start Date: 06/20/20 Status: OrderedVitamin D3 1000 intl units oral capsule 1 capsule = 1,000 International_Units, By Mouth, Daily, # 90 capsule, 3 Refills, Maintenance, 10/20/19 9:16:00 EST, Capsule, [id number], resent from 08/14, 160.02, cm, 09/29/19 14:57:00 EST, Height, 81.6, kg, 07/27/19 14:52:00 EST, Dry Weight Start Date: 10/20/19 Status: OrderedWellbutrin XL 150 mg/24 hours oral tablet, extended release 1 tablet = 150 mg, By Mouth, Every 24 hours, do not crush or chew, # 30 tablet, 5 Refills, Maintenance, 06/28/20 9:33:00 EST, ER Tablet, [id number], 160.02, cm, 06/01/20 11:03:00 EDT, Height, 73.6, kg, 04/18/20 10:19:00 EDT, Dry Weight Start Date: 06/28/20 Status: Ordered Problem List Condition Effective Dates Status Health Status Informant Adenomatous polyp of colon(Confirmed)1 Active Anxiety(Confirmed) Active [...] Active finger(Confirmed) H/O urinary tract infection with 2010 Active sepsis, proteus(Confirmed) History of nephrolithiasis(Confirmed) Active HLD (hyperlipidemia)(Confirmed) Active Hypertension(Confirmed) Active Lumbosacral spondylosis without Active myelopathy(Confirmed) OA (osteoarthritis), Active cervical(Confirmed) Osteoporosis(Confirmed) Active *[facility] [phone] [employer]PER[employer] Alpa Active Nathaniel(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 50-70% bilaterally.3Patient's environmental scientists is [facility] and patient sees Dr. Gume Mart Social History Social History Type Response Smoking Status Current some day smoker; Typ e: Cigarettes; Other: less than 1/2 pack a day; Tobacco use times per day: 1/2 pack a day; entered on: 02/19/17 Sex
--- OUTSIDE RECORDS SUMMARY | 2022-06-09 08:43 | XMS_ITS | Continuity of Care Document ---
:1950 Author Organization [facility] Address [address] [place] [id number]- Care Team Providers Name Role Phone Ranjeet Rushing MD Primary Care Physician [facility] Date(s): 02/21/20 - 03/22/20 [facility] [address] [place] [address]- [facility] Allergies, Adverse Reactions, Alerts Substance Reaction Severity Status Lac-Hydrin Active Ambien Active Latex Active Benadryl Active Immunizations Given and Recorded Vaccine Date Status Refusal Reason influenza virus vaccine, inactivated 06/17/19 Recorded influenza virus vaccine, inactivated 03/30/18 Recorded influenza virus vaccine, inactivated1 05/28/17 Given influenza virus vaccine, inactivated2 05/31/16 Recorded influenza virus vaccine, inactivated 05/22/15 Recorded influenza virus vaccine, inactivated3 09/14/09 Given Influenza Virus Vaccine (oldterm) 06/17/19 Recorded Influenza Virus Vaccine (oldterm)4 05/05/08 Given Influenza Virus Vaccine (oldterm)5 07/30/07 Given Influenza Virus Vaccine (oldterm)6 05/29/06 Given zoster vaccine, inactivated 03/30/18 Recorded tetanus-diphtheria toxoids (Td)7 03/25/17 Recorded Zoster Vaccine Live8, 9 08/30/15 Recorded pneumococcal 13-valent vaccine 06/21/15 Given Tet/Diphth/Acel, Pertussis (oldterm)10 07/19/08 Given Pneumococcal Poly (PPV23) (oldterm)11 07/19/08 Given 1Result Comment: [05/28/2017] [facility]: [id number] History: [id number] Note: VIS GIVEN-DATED Admin Note: vis [id number] Note: VIS [id number] Note: [id number] [place] [facility] [place]: [facility] Isaac Comment: [10/17/2015] PER NICO AT [id number] Note: VIS [id number] Note: VIS GIVEN Medications albuterol 90 mcg/inh inhalation powder 2 puffs, Inhalation, Every 6 hours, PRN as needed, # 1 each, 11 Refills, Maintenance, 12/29/18 9:38:36 EDT, Powder, 2 puffs Inhalation Every 6 hours,PRN:as needed Start Date: 12/29/18 Status: Orderedalendronate 70 mg oral tablet 1 tablet, By Mouth, Every week, # 12 tablet, 0 Refills, Maintenance, 03/17/20 11:27:00 EDT, [id number], 160.02, cm, 03/14/20 13:30:00 EDT, Height, 81.6, kg, 07/27/19 14:52:00 EST, Dry Weight Start Date: 03/17/20 Status: Orderedallopurinol 300 mg oral tablet 1, tablet, By Mouth, Daily, # 90 tablet, Refills 1, Tot. Refills 0, Maintenance, 11/08/19 12:00:00 EDT, Route to Pharmacy Electronically, [facility] ST[facility] [id number], 160.02, cm, 11/02/19 15:34:00 EDT, Height, 81.6, kg, 07/27/19 14:52:00 EST, Dry Weight Start Date: 11/08/19 Status: OrderedBACK BRACE BACK BRACE, See Instructions, # 1 each, Refills 0, Tot. Refills 0, Maintenance, DX BACK PAIN M54.9 DANTE LIFETIME HT 5'3 WT 182 LB, 07/23/16 14:35:27, Compound Start Date: 07/23/16 Status: OrderedCannabis (Schedule I Substance) 0 Refills, Maintenance, 01/31/16 14:20:21 Start Date: 01/31/16 Status: OrderedCompression Stockings See Instructions, # 1 pair, Refills 1, Tot. Refills 1, Maintenance, surgical, knee length 20-30 mm Hg venoustasis changes, 05/02/17 11:52:12, Compound Start Date: 05/02/17 Status: OrderedCompression Stockings See Instructions, # 1 pair, Refills 1, Tot. Refills 1, Maintenance, surgical, thigh high length 20-30 mm Hg DX: Swelling of BLE. Lifetime use, 05/11/19 15:59:03 EDT, Compound Start Date: 05/11/19 Status: OrderedCVS VITAMIN D3 1,000 UNIT SFGL See Instructions, # 90 capsule, TAKE 1 CAPSULE BY MOUTH EVERY DAY, [facility]/pharmacy #[id number] Start Date: 04/20/19 Status: Orderedcyanocobalamin 500 mcg oral tablet 1 tablet = 500 mcg, By Mouth, Daily, # 90 tablet, 0 Refills, Maintenance, 02/11/20 13:33:00 EDT, Tablet, [facility]/pharmacy #[id number], 160.02, cm, 02/11/20 13:03:00 EDT, Height, 81.6, kg, 07/27/19 14:52:00 EST, Dry Weight Start Date: 02/11/20 Status: OrderedDepends Under Pants Depends Under Pants, [...] Maintenance, TEST BS TID DX E11.9 IDDMII, 10/17/16 15:45:51, Compound Start Date: 10/17/16 Status: OrderedFreestyle Lite Test Strips See Instructions, # 100 each, Refills 11, Tot. Refills 11, Maintenance, TEST BS TID DX E11.9 IDDMII,09/02/19 11:08:00 EST, Compound, 160.02, cm, 08/16/19 12:59:00 EST, Height, 81.6, kg, 07/27/19 14:52:00 EST, Dry Weight Start Date: 09/02/19 Status: Orderedfurosemide 40 mg oral tablet 1, tablet, By Mouth, 2 times a day, # 180 tablet, Refills 1, Tot. Refills 0, Maintenance, 11/08/19 11:59:00 EDT, Route to Pharmacy Electronically, [facility] STORE [id number], 160.02, cm, 11/02/19 15:34:00 EDT, Height, 81.6, kg, 07/27/19 14:52:00 EST, Dry Weight Start Date: 11/08/19 Status: Orderedgabapentin 300 mg oral capsule 300 mg, 1, capsule, By Mouth, 3 times a day, # 90 capsule, Refills 5, Tot. Refills 5, Maintenance, 11/02/19 16:04:00 EDT, Route to Pharmacy Electronically, [facility]/pharmacy #[id number], 160.02, cm, 11/02/19 15:34:00 EDT, Height, 81.6, kg, 07/27/19 14:52:00 EST,... Start Date: 11/02/19 Status: OrderedHumira 40 mg subcutaneous solution Subcutaneous Infusion, Once, 0 Refills, Maintenance, 11/02/19 10:31:00 EDT Start Date: 11/02/19 Stop Date: 11/16/19 Status: Orderedmagnesium oxide 400 mg oral tablet 1 tablet = 400 mg, By Mouth, Daily, PER RAJNI CARDONA, # 90 tablet, 3 Refills, Maintenance, 07/20/19 16:13:45 EST Start Date: 07/20/19 Status: OrderedMelatonin 3 mg oral tablet 1 tablet = 3 mg, By Mouth, Daily at bedtime, PRN for insomnia, # 30 tablet, 3 Refills, Maintenance, 01/07/20 16:00:00 EDT, Tablet, [facility]/pharmacy #[id number], 1 tablet By Mouth Daily at bedtime,PRN:for insomnia, 160.02, cm, 01/07/20 15:07:00 EDT, Height, 81.6... Start Date: 01/07/20 Status: OrderedMiscellaneous Rx 1, tablet, By Mouth, [...] each, 5 Refills, Maintenance, 02/21/20 11:53:00 EDT, [id number], 301-350: 12 units, 351-400: 14 units, 401-450: 1... Start Date: 02/21/20 Status: OrderedPen [place], 31 G x 5 mm BD Ultra Fine III See Instructions, # 200 each, Refills 5, Tot. Refills 5, Maintenance, To inject insulin BID for DM II E11.9 PER RAJNI EMERY NP-C, 12/28/18 12:38:05 EDT, SHORT, Compound Start Date: 12/28/18 Status: Orderedsimvastatin 10 mg oral tablet 10 mg, 1, tablet, By Mouth, Daily at bedtime, # 90 tablet, Refills 3, Tot. Refills 3, Maintenance, 07/20/19 16:14:12 EST, Route to Pharmacy Electronically, [id number], [facility]/pharmacy #[id number] Start Date: 07/20/19 Status: Orderedspironolactone 100 mg oral tablet 1, tablet, By Mouth, Daily, # 30 tablet, Refills 5, Tot. Refills 0, Maintenance, 12/07/19 13:00:00 EDT, Route to Pharmacy Electronically, [facility] STORE [id number], 160.02, cm, 11/02/19 15:34:00 EDT, Height, 81.6, kg, 07/27/19 14:52:00 EST, Dry Weight Start Date: 12/07/19 Status: OrderedtraMADol 50 mg oral tablet See Instructions, PRN Pain , Severe, 1-2 tablets by mouth every 6 hours, # 240 tablet, 1 Refills, Soft Stop, 03/14/20 14:29:00 EDT, [facility]/pharmacy #[id number], 160.02, cm, 03/14/20 13:30:00 EDT, Height, 81.6, kg, 07/27/19 14:52:00 EST, Dry Weight Start Date: 03/14/20 Status: OrderedTrelegy Ellipta inhalation powder 1 puffs, Inhalation, Daily, at the same time every day, # 60 each, 0 Refills, Maintenance, 12/30/18 14:27:13 EDT, Powder Start Date: 12/30/18 Status: OrderedTresiba FlexTouch 200 units/mL subcutaneous solution See Instructions, INJECT SUBCUTANEOUSLY TAKING 76 UNITS DAILY, MAX DOSE 140 UNITS, # 9 Unknown, 5 Refills, Soft Stop, 12/16/19 15:45:00 EDT, [facility]/pharmacy #[id number], 160.02, cm, 11/02/19 15:34:00 EDT, Height, 81.6, kg, 07/27/19 14:52:00 EST, Dry Weight Start Date: 12/16/19 Status: OrderedVictoza 18 mg/3 mL subcutaneous solution See Instructions, INJECT 1.8 MG SUBCUTANEOUS DAILY, # 9 Unknown, 0 Refills, Maintenance, 03/03/20 15:42:00 EDT, [facility]/pharmacy #[id number], 160.02, cm, 02/11/20 13:03:00 EDT, Height, 81.6, kg, 07/27/19 14:52:00 EST, Dry Weight Start Date: 03/03/20 Status: OrderedVitamin B12 500 mcg oral tablet 1 tablet = 500 mcg, By Mouth, Daily, # 30 tablet, 1 Refills, Maintenance, 02/07/20 8:53:00 EDT, Tablet, [facility]/pharmacy #[id number], 160.02, cm, 01/07/20 15:07:00 EDT, Height, 81.6, kg, 07/27/19 14:52:00 EST, Dry Weight Start Date: 02/07/20 Stop Date: 04/07/20 Status: OrderedVitamin D3 1000 intl units oral [...] not crush or chew, # 30 tablet, 6 Refills, Maintenance, 12/09/19 16:12:00 EDT, ER Tablet, [facility]/pharmacy #[id number], 160.02, cm, 11/02/19 15:34:00 EDT, Height, 81.6, kg, 07/27/19 14:52:00 EST, Dry Weight Start Date: 12/09/19 Status: Ordered Problem List Condition Effective Dates [...] Active Nephropathy, diabetic(Confirmed) Active Difficulty sleeping(Confirmed) Active 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 Gout(Confirmed) Active History of fracture of Active finger(Confirmed) H/O urinary tract infection with 2009 Active sepsis, proteus(Confirmed) History of nephrolithiasis(Confirmed) Active HLD (hyperlipidemia)(Confirmed) Active Hypertension(Confirmed) Active Lumbosacral spondylosis without Active myelopathy(Confirmed) OA (osteoarthritis), Active cervical(Confirmed) Osteoporosis(Confirmed) Active *[facility] [phone] 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 50-70% bilaterally.3Patient's electron microscopist is [facility] and patient sees Dr. Gume Mart Social History Social History Type Response Smoking Status Current some day smoker; Typ e: Cigarettes; Other: less than 1/2 pack a day; Tobacco use times per day: 1/2 pack a day; entered on: 02/19/17 Sex
--- OUTSIDE RECORDS SUMMARY | 2022-06-09 08:43 | XMS_ITS | Continuity of Care Document ---
:1950 Author Organization [facility] Adult Address [address] [place] [address]- Care Team Providers Name Role Phone Kristan SUTTON, Ranjeet Beatty Primary Care Physician [facility] 10[facility]20 - 10/12/20 [facility] Adult [address] [place] [address]- Encounter Diagnosis Headache, acute (Discharge Diagnosis) - 10/05/20 Ankle fracture, left (Discharge Diagnosis) - 10/05/20 Chronic kidney disease (CKD), stage III (moderate) (Discharge Diagnosis) - 10/05/20 Current use of insulin (Discharge Diagnosis) - 10/05/20 Diabetes mellitus - insulin (Discharge Diagnosis) - 10/05/20 Diabetic neuropathy (Discharge Diagnosis) - 10/05/20 Nephropathy, diabetic (Discharge Diagnosis) - 10/05/20 Attending Physician: Chari Grey NP Allergies, Adverse Reactions, Alerts Substance Reaction Severity [...] (PPV23) (oldterm)11 07/19/08 Given 1Result Comment: [05/28/2017] [facility]: [id number] History: [id number] Note: VIS GIVEN-DATED Admin Note: vis [id number] Note: VIS [id number] Note: [id number] History: [facility] [id number] History: [facility] [id number] Comment: [10/17/2015] PER NICO AT [id number] Note: VIS [id number] Note: VIS GIVEN Medications 12 inch Grab [...] 11 Refills, Maintenance, 05/05/20 14:02:00 EDT, Powder, [facility]/pharmacy #[id number], 2 puffs Inhalation Every 6 hours,PRN:as needed, 160.02, cm, 05/05/20 13:43:00 EDT, Height, 73.6, kg, 04/18/20 10:1... Start Date: 05/05/20 Status: Orderedallopurinol 300 mg oral tablet 300 mg, 1, tablet, By Mouth, Daily, # 90 tablet, Refills 0, Tot. Refills 0, Maintenance, 07/06/20 15:50:00 EST, Route to Pharmacy Electronically, [facility]/pharmacy #[id number], 160.02, cm, 07/03/20 14:54:00 EST, Height, 73.6, kg, 04/18/20 10:19:00 EDT, Dry Weight Start Date: 07/06/20 Stop Date: 10/04/20 Status: OrderedBACK BRACE BACK BRACE, See Instructions, # 1 each, Refills 0, Tot. Refills 0, Maintenance, DX BACK PAIN M54.9 DANTE LIFETIME HT 5'3 WT 182 LB, 07/23/16 14:35:27, Compound Start Date: 07/23/16 Status: Orderedbisacodyl 10 mg rectal suppository 1 supp = 10 mg, Rectally, Daily, PRN for constipation, Maintenance, 08/30/20 15:36:00 EST, Suppository, Partial fill upon patient request if the prescription is for a schedule II opioid drug. Start Date: 08/30/20 Status: OrderedCalamine Topical 1 applicator, Topically, 2 times a day, 0 Refills, Maintenance, Lotion Start Date: 08/17/20 Status: OrderedCannabis (Schedule I Substance) 0 Refills, Maintenance, 01/31/16 14:20:21 Start Date: 01/31/16 Status: OrderedCipro 250 mg oral tablet 1 tablet = 250 mg, By Mouth, Every 12 hours, 08/29-08/31, Maintenance, 08/30/20 15:37:00 EST, Tablet, Partial fill upon patient request if the prescription is for a schedule II opioid drug. Start Date: 08/30/20 Stop Date: 09/01/20 Status: OrderedCipro 500 mg oral tablet 1 tablet = 500 mg, By Mouth, Every 12 hours, # 28 tablet, 0 Refills, Maintenance, 08/30/20 15:37:00 EST, Tablet, Partial fill upon patient request if the prescription is for a schedule II opioid drug. Start Date: 08/30/20 Stop Date: 09/13/20 Status: OrderedCompression Stockings See Instructions, # 1 [...] 15:59:03 EDT, Compound Start Date: 05/11/19 Status: Orderedcyanocobalamin 500 mcg oral tablet 1 tablet = 500 mcg, By Mouth, Daily, # 90 tablet, 1 Refills, Maintenance, 09/28/20 11:53:00 EST, Tablet, [facility]/pharmacy #[id number], 160, cm, 09/12/20 14:03:00 EST, Height, 71.3, kg, 08/08/20 7:00:00 EST, Dry Weight Start Date: 09/28/20 Status: OrderedDepends Under Pants Depends Under Pants, See Instructions, # 3 box, Refills 11, Tot. Refills 11, Maintenance, To use forincontinence. Diagnosis Kidney Disease Stage 3Life Large, 04/14/19 16:36:07 EDT, Compound Start Date: 04/14/19 Status: OrderedDocusate/Senna Tablet 1 tablet, By Mouth, 2 times a day, 0 Refills, Maintenance, 08/17/20 11:34:00 EST, Tablet, Partial fill upon patient request if the prescription is for a schedule II opioid drug. Start Date: 08/17/20 Status: OrderedDX: Neck Pain DX: Neck Pain, See Instructions, # 1 each, Refills 0, Tot. Refills 0, Maintenance, Soft Neck Collar,01/19/16 14:36:17, Compound Start Date: 01/19/16 Status: OrderedFish Oil = 1,000 mg, By Mouth, Daily, 0 Refills, Maintenance, 11/17/15 13:08:57 EDT Start Date: 11/17/15 Status: OrderedFleet Enema 19 gm-7 gm rectal enema 1 each, Rectally, Once, PRN as needed for constipation, Maintenance, 08/30/20 15:38:00 EST, Enema, Partial fill upon patient request if the prescription is for a schedule II opioid drug. Start Date: 08/30/20 Status: OrderedFreestyle Lite Lancets See Instructions, # [...] tablet, Refills 0, Tot. Refills 0, Maintenance, 07/06/20 15:48:00 EST, Route to Pharmacy Electronically, [facility]/pharmacy #[id number], 160.02, cm, 07/03/20 14:54:00 EST,Height, 73.6, kg, 04/18/20 10:19:00 EDT, Dry Weight Start Date: 07/06/20 Stop Date: 10/04/20 Status: OrderedguaiFENesin 100 mg/5 mL oral liquid 10 mL = 200 mg, By Mouth, Every 4 hours, PRN for cough, Maintenance, 08/30/20 15:39:00 EST, Liquid, Partial fill upon patient request if the prescription is for a schedule II opioid drug. Start Date: 08/30/20 Status: OrderedhydrOXYzine hydrochloride 25 mg oral tablet 1 capsule, By Mouth, 4 times a day, PRN for itching, # 40 capsule, 0 Refills, Maintenance, 09/13/20 14:50:00 EST, Capsule, Partial fill upon patient request if the prescription is for a schedule II opioid drug. Start Date: 09/13/20 Stop Date: 09/23/20 Status: Orderedlactobacillus acidophilus oral capsule 1 capsule, By Mouth, 2 times a day, 08/29-09/03, Maintenance, 08/30/20 15:35:00 EST, Partial fill upon patient request if the prescription is for a schedule II opioid drug. Start Date: 08/30/20 Status: Orderedlactulose 10 g/15 mL oral and rectal liquid 30 mL = 20 Gm, By Mouth, Daily, PRN Constipation, Maintenance, 08/30/20 15:39:00 EST, Partial fill upon patient request if the prescription is for a schedule II opioid drug. Start Date: 08/30/20 Status: OrderedLyrica 150 mg oral capsule 1 capsule = 150 mg, By Mouth, 2 times a day, DOSAGE INCREASE, # 60 capsule, 3 Refills, Maintenance, 07/04/20 11:46:00 EST, Capsule, [facility]/pharmacy #[id number], 160.02, cm, 07/03/20 14:54:00 EST, Height, 73.6, kg, 04/18/20 10:19:00 EDT, Dry Weight Start Date: 07/04/20 Status: Orderedmagnesium oxide 400 mg (240 mg elemental magnesium) oral tablet 1 tablet, By Mouth, Daily, # 90 tablet, 0 Refills, Acute, 09/20/20 12:20:00 EST, [id number], 90, TAKE 1 TABLET BY MOUTH DAILY, 160, cm, 09/12/20 14:03:00 EST, Height, 71.3, kg, 08/08/20 7:00:00 EST, Dry Weight Start Date: 09/20/20 Status: OrderedMelatonin 3 mg oral tablet 1 tablet = 3 mg, By Mouth, Daily at bedtime, PRN for insomnia, [facility], # 90 tablet, 3 Refills, Maintenance, 04/24/20 9:53:00 EDT, Tablet, [facility]/pharmacy #[id number], 1 tablet By Mouth Daily at bedtime,PRN:for insomnia,Instr:[facility], 160.02, cm, 04/18/20... Start Date: 04/24/20 Status: OrderedMilk of Magnesia Liquid 30 mL, By Mouth, Daily, PRN Constipation, 0 Refills, Maintenance, 08/17/20 11:31:00 EST, Suspension,Partial fill upon patient request if the prescription is for a schedule II opioid drug. Start Date: 08/17/20 Status: OrderedMiraLax Powder 1 pack/packet = 17 Gm, By Mouth, Daily, 0 Refills, Maintenance, 08/17/20 11:29:00 EST, Powder, Partial fill upon patient request if the prescription is for a schedule II opioid drug. Start Date: 08/17/20 Status: OrderedMultivitamin 1 tablet, By Mouth, Daily, 0 Refills, Maintenance, 12/09/19 16:05:00 EDT Start Date: 12/09/19 Status: OrderedNovoLOG FlexPen 100 units/mL subcutaneous solution Subcutaneous Injection, 3 times a day before meals, per sliding scale: 150-200: 6 units 201-250: 8 units 251-300: 10 units 301-350: 12 units 351-400: 14 units, Maintenance, 08/30/20 15:41:00 EST, Solution, Partial fill upon patient request if th... Start Date: 08/30/20 Status: OrderedoxyCODONE 5 mg oral tablet 5 mg, 1, tablet, By Mouth, Every 4 hours, PRN, Refills 0, Tot. Refills 0, Maintenance, as needed forpain, 08/30/20 15:43:00 EST, Partial fill upon patient request Start Date: 08/30/20 Status: OrderedPen [place], 31 G x 5 mm BD Ultra Fine III See Instructions, # 200 each, Refills 5, Tot. Refills 5, Maintenance, To inject insulin BID for DM II E11.9 PER CHARI GREY TIME CYCLE OPERATOR-C, 10/06/20 10:54:00 EST, SHORT, Compound, 160, cm, 10/05/20 14:31:00 EST, Height, 77.5, kg, 10/05/20 14:31:00 EST, Dry W... Start Date: 10/06/20 Status: OrderedRaised toleit seat with arms Raised toleit seat with arms, See Instructions, # 1 each, Refills 0, Tot. Refills 0, Maintenance, Use daily Unsteady gait, 07/10/20 14:04:00 EST, Supply Start Date: 07/10/20 Status: Orderedsimvastatin 10 mg oral tablet 10 mg, 1, tablet, By Mouth, Daily at bedtime, # 90 tablet, Refills 1, Tot. Refills 1, Maintenance, 06/28/20 9:31:00 EST, Route to Pharmacy Electronically, [facility]/pharmacy #[id number], 160.02, cm, 06/01/20 11:03:00 EDT, Height, 73.6, kg, 04/18/20 10:19:00 EDT,... Start Date: 06/28/20 Status: Orderedthiamine 100 mg oral tablet 100 mg, 1, tablet, By Mouth, Daily, Refills 0, Maintenance, 08/17/20 11:34:00 EST, Partial fill uponpatient request if the prescription is for a schedule II opioid drug. Start Date: 08/17/20 Status: OrderedtiZANidine 2 mg oral tablet 2 mg, 1, tablet, By Mouth, Every 8 hours, PRN, Maintenance, as needed for muscle spasm, 08/30/20 15:45:00 EST, Partial fill upon patient request if the prescription is for a schedule II opioid drug. Start Date: 08/30/20 Status: OrderedTransfer bench Transfer bench, See Instructions, [...] 14:27:13 EDT, Powder Start Date: 12/30/18 Status: OrderedTums 500 mg oral tablet, chewable [...] # 9 Unknown, 5 Refills, 06/20/20 15:08:00EDT, [id number], 160.02, cm, 06/01/20 11:03:00 EDT, Height, 73.6, kg, 04/18/20 10:19:00 EDT,Dry Weight Start Date: 06/20/20 Status: OrderedVitamin D3 1000 intl units oral capsule 1 capsule = 1,000 International_Units, By Mouth, Daily, # 90 capsule, 1 Refills, Maintenance, 09/25/20 7:44:00 EST, Capsule, [id number], resent from 08/14, 160, cm, 09/12/20 14:03:00 EST, Height, 71.3, kg, 08/08/20 7:00:00 EST, Dry Weight Start Date: 09/25/20 Status: OrderedWellbutrin XL 300 mg/24 hours oral tablet, extended release 1 tablet = 300 mg, By Mouth, Daily, DOSAGE INCREASE, # 30 tablet, 5 Refills, Maintenance, 07/03/20 15:20:00 EST, ER Tablet, [id number], 160.02, cm, 07/03/20 14:54:00 EST, Height, 73.6, kg, 04/18/20 10:19:00 EDT, Dry Weight Start Date: 07/03/20 Status: Ordered Problem List Condition Effective Dates [...] myelopathy(Confirmed) OA (osteoarthritis), Active cervical(Confirmed) Osteoporosis(Confirmed) Active *[facility] [phone] 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 50-70% bilaterally.3Patient's accounting manager cpa is [facility] and patient sees Dr. Gume Mart Diagnosis Diagnosis Type Effective [facility] Status Service Headache, acute Discharge 10/05/20 Diagnosis Ankle fracture, Discharge 10/05/20 left Diagnosis Chronic kidney Discharge 10/05/20 disease (CKD), Diagnosis stage III (moderate) Current use of Discharge 10/05/20 insulin Diagnosis Diabetes mellitus Discharge 10/05/20 - insulin Diagnosis Diabetic Discharge 10/05/20 neuropathy Diagnosis Nephropathy, Discharge 10/05/20 diabetic Diagnosis Vital Signs Most recent to oldest [Reference Range]: 1 Height 160 cm (10/05/20 8:07 AM) Weight 73.3 kg (10/05/20 8:07 AM) Oxygen Saturation [94-100 %] 97 % (10/05/20 8:07 AM) Pulse Rate [55-90 bpm] 88 bpm (10/05/20 8:07 AM) Body Mass Index [18.5-24.99] 28.63 *H* (10/05/20 8:07 AM) Blood Pressure [90-138/55-84 mm Hg] 118/64 mm Hg (10/05/20 8:07 AM) Blood pressure sites Arm, right (10/05/20 8:07 AM) Social History Social History Type Response Tobacco Other: last cigarette 0. Sex
--- OUTSIDE RECORDS SUMMARY | 2022-06-09 08:43 | XMS_ITS | Continuity of Care Document ---
:1950 Author Organization [facility] Adult Address [address] [place] [address]- Care Team Providers Name Role Phone Ranjeet Rushing MD Primary Care Physician [facility] Date[facility]s): 02/02/21 - 03/04/21 [facility] Adult [address] [place] [address]- Allergies, Adverse Reactions, Alerts Substance Reaction Severity Status Lac-Hydrin Active Ambien Active Benadryl Active Latex Active Immunizations Given and Recorded Vaccine Date Status Refusal Reason SARS-CoV-2 (COVID-19) mRNA BNT-162b2 vac 09/24/20 Recorde d SARS-CoV-2 (COVID-19) mRNA BNT-162b2 vac 09/03/20 Recorde d zoster vaccine, inactivated 05/10/20 Recorded zoster vaccine, inactivated 03/30/18 Recorded zoster vaccine, inactivated 02/09/18 Recorded influenza virus vaccine, inactivated 06/17/19 Recorded [...] (PPV23) (oldterm)11 07/19/08 Given 1Result Comment: [05/28/2017] [facility]: [id number] History: [id number] Note: VIS GIVEN-DATED Admin Note: vis [id number] Note: VIS [id number] Note: [id number] History: [facility] [id number] History: [facility] [id number] Comment: [10/17/2015] PER NICO AT [id number] Note: VIS [id number] Note: VIS GIVEN Medications 12 inch Grab Bars 12 inch Grab Bars, See Instructions, # 2 each, Refills 0, Tot. Refills 0, Maintenance, Grab bars : Length 12inches Use as directed DX Unsteady Gait ICD10 R26.81 HT: 5'3 Weight 162lbs Length of need Lifetime, 07/07/20 11:45:00 EST, Supply Start Date: 07/07/20 Status: OrderedAD[facility] ADMIT TO [facility], See Instructions, # 1 each, Refills 0, Tot. Refills 0, Maintenance, FAX [phone] ADMIT TO PENITENTIARY, PT, OT. 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 Start Date: 10/17/20 Status: Orderedalbuterol 90 mcg/inh inhalation powder 2 puffs, Inhalation, Every 6 hours, PRN as needed, # 1 each, 11 Refills, Maintenance, 05/05/20 14:02:00 EDT, Powder, [facility]/pharmacy #[id number], 2 puffs Inhalation Every 6 hours,PRN:as needed, 160.02, cm, 05/05/20 13:43:00 EDT, Height, 73.6, kg, 04/18/20 10:1... Start Date: 05/05/20 Status: Orderedalendronate 70 mg oral tablet 1 tablet, By Mouth, Every week, # 12 tablet, 6 Refills, Maintenance, 01/09/21 16:07:00 EDT, [id number], 160, cm, 12/25/20 14:20:00 EDT, Height, 77.5, kg, 10/05/20 14:31:00 EST, Dry Weight Start Date: 01/09/21 Status: Orderedallopurinol 300 mg oral tablet 300 mg, 1, tablet, By Mouth, Daily, # 90 tablet, Refills 1, Tot. Refills 1, Maintenance, 01/26/21 12:31:00 EDT, Route to Pharmacy Electronically, [facility]/pharmacy #[id number], 160, cm, 12/25/20 14:20:00 EDT, Height, 77.5, kg, 10/05/20 14:31:00 EST, Dry Weight Start Date: 01/26/21 Stop Date: 07/25/21 Status: OrderedBACK BRACE BACK BRACE, See Instructions, # 1 each, Refills 0, Tot. Refills 0, Maintenance, DX BACK PAIN M54.9 DANTE LIFETIME HT 5'3 WT 182 LB, 07/23/16 14:35:27, Compound Start Date: 07/23/16 Status: Orderedbetamethasone topical dipropionate 0.05% cream 1 application, Topically, 2 times a day, to affected area on the right foot, # 50 Gm, 3 Refills, Acute 03/23/21 16:45:00 EDT, 02/16/21 16:39:00 EDT, Cream, [facility]/pharmacy #[id number], Partial fill upon patientrequest if the prescription is for a schedule II... Start Date: 02/16/21 Stop Date: 03/23/21 Status: OrderedCannabis (Schedule I Substance) 0 Refills, [...] Daily, # 90 tablet, 1 Refills, Maintenance, 02/08/21 9:52:00 EDT, Tablet, [facility]/pharmacy #[id number], 160, cm, 01/25/21 14:11:00 EDT, Height, 77.5, kg, 10/05/20 14:31:00 EST, Dry Weight Start Date: 02/08/21 Status: OrderedDepends Under Pants Depends Under Pants, [...] 11/17/15 13:08:57 EDT Start Date: 11/17/15 Status: OrderedFreestyle Lite Lancets [...] 02/06/21 9:05:00 EDT, Route to Pharmacy Electronically, [facility]/pharmacy #[id number], 160, cm, 01/25/21 14:11:00 EDT, Height, 77.5, kg, 10/05/20 14:31:00 EST, Dry Weight Start Date: 02/06/21 Stop Date: 08/05/21 Status: OrderedHumira 40 mg subcutaneous solution See Instructions, 40 mg [id number], 0 Refills, Maintenance, 10/23/20 13:46:00 EST, Partial fill upon patient request if the prescription is for a schedule II opioid drug. Start Date: 10/23/20 Status: OrderedLyrica 150 mg oral capsule 1 capsule = 150 mg, By Mouth, 2 times a day, DOSAGE INCREASE, # 60 capsule, 3 Refills, Maintenance, 01/23/21 14:56:00 EDT, Capsule, [facility]/pharmacy #[id number], 160, cm, 01/14/21 11:46:00 EDT, Height, 77.5, kg,10/05/20 14:31:00 EST, Dry Weight Start Date: 01/23/21 Status: Orderedmagnesium oxide 400 mg (240 mg elemental magnesium) oral tablet 1 tablet, By Mouth, Daily, # 90 tablet, 0 Refills, Acute, 09/20/20 12:20:00 EST, [id number], 90, TAKE 1 TABLET BY MOUTH DAILY, 160, cm, 09/12/20 14:03:00 EST, Height, 71.3, kg, 08/08/20 7:00:00 EST, Dry Weight Start Date: 09/20/20 Status: OrderedMelatonin 3 mg oral tablet 1 tablet = 3 mg, By Mouth, Daily at bedtime, PRN for insomnia, [facility], # 90 tablet, 3 Refills, Maintenance, 04/24/20 9:53:00 EDT, Tablet, [id number], 1 tablet By Mouth Daily at [...] request if th... Start Date: 08/30/20 Status: OrderedPen [place], 31 G x 5 mm BD Ultra Fine III See Instructions, # 200 each, Refills 5, Tot. Refills 5, Maintenance, To inject insulin BID for DM II E11.9 PER RAJNI EMERY PUBLISHING EDITOR-C, 10/06/20 10:54:00 EST, SHORT, Compound, 160, cm, [...] tablet, Refills 1, Tot. Refills 1, Maintenance, 01/09/21 15:06:00 EDT, Route to Pharmacy Electronically, [facility]/pharmacy #[id number], 160, cm, 12/25/20 14:20:00 EDT, Height, 77.5, kg, 10/05/20 14:31:00 EST, Start Date: 01/09/21 Status: Orderedspironolactone 100 mg oral tablet 100 mg, 1, tablet, By Mouth, Daily, # 90 tablet, Refills 0, Tot. Refills 0, Maintenance, 01/23/21 14:56:00 EDT, Route to Pharmacy Electronically, [facility]/pharmacy #[id number], Partial fill upon patient request if the prescription is for a schedule II opioid carlene Start Date: 01/23/21 Stop Date: 04/23/21 Status: OrderedtraMADol 50 mg oral tablet See Instructions, PRN Pain , Severe, 1-2 tablets by mouth every 6 hours, # 240 tablet, 1 Refills, Soft Stop, 01/25/21 16:45:00 EDT, [facility]/pharmacy #[id number], 160, cm, 01/25/21 14:11:00 EDT, Height, 77.5, kg,10/05/20 14:31:00 EST, Dry Weight Start Date: 01/25/21 Status: OrderedTransfer bench Transfer bench, See Instructions, [...] EDT, Powder Start Date: 12/30/18 Status: OrderedTresiba Subcutaneous Infusion, Daily, 0 Refills, Maintenance, 10/23/20 13:48:00 EST, Partial fill upon patient request if the prescription is for a schedule II opioid drug. Start Date: 10/23/20 Status: OrderedTums 500 mg oral tablet, chewable [...] EDT, Dry Weight Start Date: 07/03/20 Status: OrderedZoloft 50 mg oral tablet 1 tablet = 50 mg, By Mouth, Daily, DOSAGE INCREASE, # 30 tablet, 6 Refills, Maintenance, 01/05/21 10:10:00 EDT, Tablet, [id number], Partial fill upon patient request if the prescription is for a schedule II opioid drug., 160, cm, 12/25/20 14:2... Start Date: 01/05/21 Status: Ordered Problem List Condition Effective Dates [...] myelopathy(Confirmed) OA (osteoarthritis), Active cervical(Confirmed) Osteoporosis(Confirmed) Active *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 50-70% bilaterally.3Patient's civil rights investigator [facility] Gume Mart Social History Social History Type Response Tobacco Other: last cigarette 0. Sex
--- OUTSIDE RECORDS SUMMARY | 2022-06-09 08:43 | XMS_ITS | Continuity of Care Document ---
:1950 Author Organization [facility] Adult Address [address] [place] [address]- Care Team Providers Name Role Phone Ranjeet Rushing MD Primary Care Physician Encounter [facility] Date(s): 01/25/21 - 02/24/21 [facility] [address] [place] [address]- Attending Physician: Admtr, Ar8 Admitting Physician: Admtr, Ar8 Referring Physician: Admtr, Ar8 Allergies, Adverse Reactions, Alerts Substance Reaction Severity [...] (oldterm)11 07/19/08 Given 1Result Comment: [05/28/2017] HD [facility]: [id number] History: [id number] Note: VIS GIVEN-DATED Admin Note: vis [id number] Note: VIS [id number] Note: [id number] [place] [facility] [id number] History: [facility] [id number] Comment: [10/17/2015] PER NICO AT [id number] Note: VIS [id number] Note: VIS GIVEN Medications 12 inch Grab Bars 12 inch Grab Bars, See Instructions, # 2 each, Refills 0, Tot. Refills 0, Maintenance, Grab bars : Length 12inches Use as directed DX Unsteady Gait ICD10 R26.81 HT: 5'3 Weight 162lbs Length of need Lifetime, 07/07/20 11:45:00 EST, Supply Start Date: 07/07/20 Status: [facility], See Instructions, # 1 each, Refills 0, Tot. Refills 0, Maintenance, FAX [phone] ADMIT TO HALFWAY, PT, OT. 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 Start Date: 10/17/20 Status: Orderedalbuterol 90 mcg/inh inhalation powder 2 puffs, Inhalation, Every 6 hours, PRN as needed, # 1 each, 11 Refills, Maintenance, 05/05/20 14:02:00 EDT, Powder, [facility]/pharmacy #[id number], 2 puffs Inhalation Every 6 hours,PRN:as needed, 160.02, cm, 05/05/20 13:43:00 EDT, Height, 73.6, kg, 04/18/20 10:1... Start Date: 05/05/20 Status: Orderedalendronate 70 mg oral tablet 1 tablet, By Mouth, Every week, # 12 tablet, 6 Refills, Maintenance, 05/18/21 16:07:00 EDT, [facility] STORE [id number], 160, cm, 12/25/20 14:20:00 EDT, Height, 77.5, kg, 10/05/20 14:31:00 EST, Dry Weight Start Date: 01/09/21 Status: Orderedallopurinol 300 mg oral tablet 300 mg, 1, tablet, By Mouth, Daily, # 90 tablet, Refills 1, Tot. Refills 1, Maintenance, 01/26/21 12:31:00 EDT, Route to Pharmacy Electronically, [facility]/pharmacy #[id number], 160, cm, 12/25/20 14:20:00 EDT, Height, [...] 03/23/21 16:45:00 EDT, 02/16/21 16:39:00 EDT, Cream, [facility]/pharmacy #[id number], Partial fill upon patientrequest if the [...] 1 Refills, Maintenance, 02/08/21 9:52:00 EDT, Tablet, [facility]/pharmacy #[id number], 160, cm, 01/25/21 14:11:00 [...] 02/06/21 9:05:00 EDT, Route to Pharmacy Electronically, [facility]/pharmacy #[id number], 160, cm, 01/25/21 14:11:00 EDT, Height, 77.5, kg, 10/05/20 14:31:00 EST, Dry Weight Start Date: 02/06/21 Stop Date: 08/05/21 Status: OrderedHumira 40 mg subcutaneous solution See Instructions, 40 mg [id number], 0 Refills, Maintenance, 10/23/20 13:46:00 EST, Partial fill upon patient request if the prescription is for a schedule II opioid drug. Start Date: 10/23/20 Status: OrderedKeflex monohydrate 500 mg oral capsule 1 capsule = 500 mg, By Mouth, 4 times a day, for 10 days, # 40 each, 0 Refills, Acute 02/26/21 16:38:00 EDT, 02/16/21 16:38:00 EDT, Capsule, [facility]/pharmacy #[id number], Partial fill upon patient request if theprescription is for a schedule II opioid drug., 1... Start Date: 02/16/21 Stop Date: 02/26/21 Status: OrderedLyrica 150 mg oral capsule 1 capsule = 150 mg, By Mouth, 2 times a day, DOSAGE INCREASE, # 60 capsule, 3 Refills, Maintenance, 01/23/21 14:56:00 EDT, Capsule, [facility]/pharmacy #[id number], 160, cm, 01/14/21 11:46:00 EDT, Height, 77.5, kg,10/05/20 14:31:00 EST, Dry Weight Start Date: 01/23/21 Status: Orderedmagnesium oxide 400 mg (240 mg elemental magnesium) oral tablet 1 tablet, By Mouth, Daily, # 90 tablet, 0 Refills, Acute, 09/20/20 12:20:00 EST, [id number], 90, TAKE 1 TABLET BY MOUTH DAILY, [...] if th... Start Date: 08/30/20 Status: OrderedPen [place], 31 G x 5 mm BD Ultra Fine III See Instructions, # 200 each, Refills 5, Tot. Refills 5, Maintenance, To inject insulin BID for DM II E11.9 PER RAJNI EMERY NP-C, 10/06/20 10:54:00 EST, SHORT, Compound, 160, cm, [...] 01/09/21 15:06:00 EDT, Route to Pharmacy Electronically, [facility]/pharmacy #[id number], 160, cm, 12/25/20 14:20:00 EDT, Height, 77.5, kg, 10/05/20 14:31:00 EST, Dr... Start Date: 01/09/21 Status: Orderedspironolactone 100 mg oral tablet 100 mg, 1, tablet, By Mouth, Daily, # 90 tablet, Refills 0, Tot. Refills 0, Maintenance, 01/23/21 14:56:00 EDT, Route to Pharmacy Electronically, [facility]/pharmacy #[id number], Partial fill upon patient request if the prescription is for a schedule II opioid thomas... Start Date: 01/23/21 Stop Date: 04/23/21 Status: OrderedtraMADol 50 mg oral tablet See Instructions, PRN Pain , Severe, 1-2 tablets by mouth every 6 hours, # 240 tablet, 1 Refills, Soft Stop, 01/25/21 16:45:00 EDT, [facility]/pharmacy #[id number], 160, cm, 01/25/21 14:11:00 [...] # 9 Unknown, 5 Refills, 06/20/20 15:08:00EDT, [facility]/pharmacy #[id number], 160.02, cm, 06/01/20 11:03:00 EDT, Height, [...] Refills, Maintenance, 07/03/20 15:20:00 EST, ER Tablet, [facility]/pharmacy #[id number], 160.02, cm, 07/03/20 14:54:00 EST, Height, 73.6, kg, 04/18/20 10:19:00 EDT, Dry Weight Start Date: 07/03/20 Status: OrderedZoloft 50 mg oral tablet 1 tablet = 50 mg, By Mouth, Daily, DOSAGE INCREASE, # 30 tablet, 6 Refills, Maintenance, 01/05/21 10:10:00 EDT, Tablet, [facility]/pharmacy #[id number], Partial fill upon patient [...] OA (osteoarthritis), Active cervical(Confirmed) Osteoporosis(Confirmed) Active *[facility] [phone] 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 50-70% bilaterally.3Patient's air and water tester is [facility] and patient sees Dr. Gume Mart Social History Social History Type Response Tobacco Other: last cigarette 0. Sex
--- OUTSIDE RECORDS SUMMARY | 2022-06-09 08:43 | XMS_ITS | Continuity of Care Document ---
:1950 Author Organization [facility] Adult Address [address] [place] [address]- Care Team Providers Name Role Phone Ranjeet Rushing MD Primary Care Physician Encounter [facility] Date(s): 03/19/21 - 04/18/21 [facility] [address] [place] [address]- Allergies, Adverse Reactions, Alerts Substance Reaction Severity [...] 07/19/08 Given 1Result Comment: [05/28/2017] HD [facility]: [id number] History: HIN2Buycc Note: VIS GIVEN-DATED Admin Note: vis [id number] Note: VIS [id number] Note: [id number] [place] [facility] [id number] History: [facility] [id number] Comment: [10/17/2015] PER NICO AT [id number] Note: VIS [id number] Note: VIS GIVEN Medications 12 inch Grab [...] 11 Refills, Maintenance, 05/05/20 14:02:00 EDT, Powder, [facility]/pharmacy #[id number], 2 puffs Inhalation Every 6 hours,PRN:as needed, 160.02, cm, 05/05/20 13:43:00 EDT, Height, 73.6, kg, 04/18/20 10:1... Start Date: 05/05/20 Status: Orderedalendronate 70 mg oral tablet 1 tablet, By Mouth, Every week, # 12 tablet, 6 Refills, Maintenance, 01/09/21 16:07:00 EDT, [facility] STORE [id number], 160, cm, 12/25/20 14:20:00 EDT, Height, 77.5, kg, 10/05/20 14:31:00 EST, Dry Weight Start Date: 01/09/21 Status: Orderedallopurinol 300 mg oral tablet 300 mg, 1, tablet, By Mouth, Daily, # 90 tablet, Refills 1, Tot. Refills 1, Maintenance, 01/26/21 12:31:00 EDT, Route to Pharmacy Electronically, [facility]/pharmacy #[id number], 160, cm, 12/25/20 14:20:00 EDT, Height, [...] Daily, # 30 tablet, 5 Refills, Maintenance, 03/12/21 10:51:00 EDT, [facility] STORE [address]1844, 160, cm, 02/27/21 13:50:00 EDT, Height, 79.6, kg, 02/25/21 11:44:00 EDT, Dry Weight Start Date: 03/12/21 Status: OrderedCompression Stockings See Instructions, # 1 [...] 1 Refills, Maintenance, 02/08/21 9:52:00 EDT, Tablet, [facility]/pharmacy #[id number], 160, cm, 01/25/21 14:11:00 EDT, Height, 77.5, kg, 10/05/20 14:31:00 EST, Dry Weight Start Date: 02/08/21 Status: OrderedDX: Neck Pain DX: Neck Pain, [...] 02/06/21 9:05:00 EDT, Route to Pharmacy Electronically, [facility]/pharmacy #[id number], 160, cm, 01/25/21 14:11:00 EDT, Height, 77.5, kg, 10/05/20 14:31:00 EST, Dry Weight Start Date: 02/06/21 Stop Date: 08/05/21 Status: OrderedHumira 40 mg subcutaneous solution See Instructions, 40 mg [id number], 0 Refills, Maintenance, 10/23/20 13:46:00 EST, Partial fill upon patient request if the prescription is for a schedule II opioid drug. Start Date: 10/23/20 Status: OrderedLyrica 150 mg oral capsule 1 capsule = 150 mg, By Mouth, 2 times a day, DOSAGE INCREASE, # 60 capsule, 3 Refills, Maintenance, 01/23/21 14:56:00 EDT, Capsule, [facility]/pharmacy #[id number], 160, cm, 01/14/21 11:46:00 EDT, Height, 77.5, kg,10/05/20 14:31:00 EST, Dry Weight Start Date: 01/23/21 Status: Orderedmagnesium oxide 400 mg (240 mg elemental magnesium) oral tablet 1 tablet, By Mouth, Daily, # 90 tablet, 0 Refills, Acute, 09/20/20 12:20:00 EST, [facility] STORE [address]89, 90, TAKE 1 TABLET BY MOUTH DAILY, 160, cm, 09/12/20 14:03:00 EST, Height, 71.3, kg, 08/08/20 7:00:00 EST, Dry Weight Start Date: 09/20/20 Status: OrderedMelatonin 3 mg oral tablet 1 tablet = 3 mg, By Mouth, Daily at bedtime, PRN for insomnia, [facility], # 90 tablet, 3 Refills, Maintenance, 04/24/20 9:53:00 EDT, Tablet, [facility]/pharmacy #[id number], 1 tablet By Mouth Daily at bedtime,PRN:for insomnia,Instr:[employer] brand, 160.02, cm, 04/18/20... Start Date: 04/24/20 [...] if th... Start Date: 08/30/20 Status: OrderedPen [place], 31 G x 5 mm BD Ultra Fine III See Instructions, # 200 each, Refills 5, Tot. Refills 5, Maintenance, To inject insulin BID for DM II E11.9 PER RAJNI CARDONA, 10/06/20 10:54:00 EST, SHORT, Compound, 160, cm, [...] 01/09/21 15:06:00 EDT, Route to Pharmacy Electronically, [facility]/pharmacy #[id number], 160, cm, 12/25/20 14:20:00 EDT, Height, 77.5, kg, 10/05/20 14:31:00 EST, Dr... Start Date: 01/09/21 Status: Orderedspironolactone 100 mg oral tablet 100 mg, 1, tablet, By Mouth, Daily, # 90 tablet, Refills 0, Tot. Refills 0, Maintenance, 01/23/21 14:56:00 EDT, Route to Pharmacy Electronically, [facility]/pharmacy #[id number], Partial fill upon patient request if the prescription is for a schedule II opioid thomasBobo Start Date: 01/23/21 Stop Date: 04/23/21 Status: OrderedtraMADol 50 mg oral tablet 1 tablet = 50 mg, By Mouth, Every 6 hours, PRN Pain , Severe, # 10 tablet, 1 Refills, Soft Stop, 03/27/21 9:54:00 EDT Start Date: 03/27/21 Stop Date: 04/02/21 Status: OrderedTransfer bench Transfer bench, See Instructions, [...] EDT, Powder Start Date: 12/30/18 Status: OrderedTresiba See Instructions, 78 units at [...] # 9 Unknown, 5 Refills, 06/20/20 15:08:00EDT, [facility]/pharmacy #[id number], 160.02, cm, 06/01/20 11:03:00 EDT, Height, [...] (osteoarthritis), Active cervical(Confirmed) Osteoporosis(Confirmed) Active *[facility] [phone] 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 50-70% bilaterally.3Patient's casino investigator is [facility] and [facility] sees Dr. Gume Mart Social History Social History Type Response Tobacco Other: last cigarette 0. Sex
--- OUTSIDE RECORDS SUMMARY | 2022-06-09 08:43 | XMS_ITS | Continuity of Care Document ---
:1950 Author Organization [facility] Address [address] [place] [address]- Care Team Providers Name Role Phone Ranjeet Rushing MD Primary Care Physician Encounter [facility] [place] Date(s): 01/14/21 - 02/13/21 [facility] [address] [place] [address]- Attending Physician: AdmEvans blackwood Admitting Physician: Admtr, Evans Referring Physician: Admtr, Ar8 Allergies, Adverse Reactions, [...] (oldterm)11 07/19/08 Given 1Result Comment: [05/28/2017] HD [facility]: [id number] History: [id number] Note: VIS GIVEN-DATED Admin Note: vis [id number] Note: VIS [id number] Note: VIS-[id number] [place] [facility] [id number] History: [facility] [id number] Comment: [10/17/2015] PER NICO AT [id number] Note: VIS [id number] Note: VIS GIVEN Medications 12 inch Grab Bars 12 inch Grab Bars, See Instructions, # 2 each, Refills 0, Tot. Refills 0, Maintenance, Grab bars : Length 12inches Use as directed DX Unsteady Gait ICD10 R26.81 HT: 5'3 Weight 162lbs Length of need Lifetime, 07/07/20 11:45:00 EST, Supply Start Date: 07/07/20 Status: [facility], See Instructions, # 1 each, Refills 0, Tot. Refills 0, Maintenance, FAX [phone] ADMIT TO [facility], PT, OT. 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 Start Date: 10/17/20 Status: Orderedalbuterol 90 mcg/inh inhalation powder 2 puffs, Inhalation, Every 6 hours, PRN as needed, # 1 each, 11 Refills, Maintenance, 05/05/20 14:02:00 EDT, Powder, [facility]/pharmacy #[id number], 2 puffs Inhalation Every 6 hours,PRN:as needed, 160.02, cm, 05/05/20 13:43:00 EDT, Height, 73.6, kg, 04/18/20 10:1... Start Date: 05/05/20 Status: Orderedalendronate 70 mg oral tablet 1 tablet, By Mouth, Every week, # 12 tablet, 6 Refills, Maintenance, 01/09/21 16:07:00 EDT, [facility] STORE [id number], 160, cm, 12/25/20 14:20:00 EDT, Height, 77.5, kg, 10/05/20 14:31:00 EST, Dry Weight Start Date: 01/09/21 Status: Orderedallopurinol 300 mg oral tablet 300 mg, 1, tablet, By Mouth, Daily, # 90 tablet, Refills 1, Tot. Refills 1, Maintenance, 01/26/21 12:31:00 EDT, Route to Pharmacy Electronically, [facility]/pharmacy #[id number], 160, cm, 12/25/20 14:20:00 EDT, Height, [...] 1 Refills, Maintenance, 02/08/21 9:52:00 EDT, Tablet, [facility]/pharmacy #[id number], 160, cm, 01/25/21 14:11:00 EDT, Height, [...] 02/06/21 9:05:00 EDT, Route to Pharmacy Electronically, [facility]/pharmacy #[id number], 160, cm, 01/25/21 14:11:00 EDT, Height, 77.5, kg, 10/05/20 14:31:00 EST, Dry Weight Start Date: 02/06/21 Stop Date: 08/05/21 Status: OrderedHumira 40 mg subcutaneous solution See Instructions, 40 mg [id number], 0 Refills, Maintenance, 10/23/20 13:46:00 EST, Partial fill upon patient request if the prescription is for a schedule II opioid drug. Start Date: 10/23/20 Status: OrderedLyrica 150 mg oral capsule 1 capsule = 150 mg, By Mouth, 2 times a day, DOSAGE INCREASE, # 60 capsule, 3 Refills, Maintenance, 01/23/21 14:56:00 EDT, Capsule, [facility]/pharmacy #[id number], 160, cm, 01/14/21 11:46:00 EDT, Height, 77.5, kg,10/05/20 14:31:00 EST, Dry Weight Start Date: 01/23/21 Status: Orderedmagnesium oxide 400 mg (240 mg elemental magnesium) oral tablet 1 tablet, By Mouth, Daily, # 90 tablet, 0 Refills, Acute, 09/20/20 12:20:00 EST, [facility] STORE [address]32, 90, TAKE 1 TABLET BY MOUTH DAILY, 160, cm, 09/12/20 14:03:00 EST, Height, 71.3, kg, 08/08/20 7:00:00 EST, Dry Weight Start Date: 09/20/20 Status: OrderedMelatonin 3 mg oral tablet 1 tablet = 3 mg, By Mouth, Daily at bedtime, PRN for insomnia, [facility], # 90 tablet, 3 Refills, Maintenance, 04/24/20 9:53:00 EDT, Tablet, [facility]/pharmacy #[id number], 1 tablet By Mouth Daily at bedtime,PRN:for insomnia,Instr:[facility] brand, 160.02, cm, 04/18/20... Start Date: 04/24/20 [...] if th... Start Date: 08/30/20 Status: OrderedPen [place], 31 G x 5 mm BD Ultra [...] 01/09/21 15:06:00 EDT, Route to Pharmacy Electronically, [facility]/pharmacy #[id number], 160, cm, 12/25/20 14:20:00 EDT, Height, 77.5, kg, 10/05/20 14:31:00 EST, DrJhoan.. Start Date: 01/09/21 Status: Orderedspironolactone 100 mg oral tablet 100 mg, 1, tablet, By Mouth, Daily, # 90 tablet, Refills 0, Tot. Refills 0, Maintenance, 01/23/21 14:56:00 EDT, Route to Pharmacy Electronically, [facility]/pharmacy #[id number], Partial fill upon patient request if the prescription is for a schedule II opioid thomas... 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 50-70% bilaterally.3Patient's vocational education professional is [facility] and patient sees Dr. Gume Mart Social History Social History Type Response Tobacco Other: last cigarette 0. Sex
--- OUTSIDE RECORDS SUMMARY | 2022-06-09 08:43 | XMS_ITS | Continuity of Care Document ---
:1950 Author Organization [facility] Adult Address [address] [place] [address]- Care Team Providers Name Role Phone Kristan SUTTON, Ranjeet Beatty Primary Care Physician Encounter [facility] Date(s): 10/30/20 - 11/06/20 [facility] Adult [address] [place] [address]- Encounter Diagnosis Anxiety (Discharge Diagnosis) - 10/30/20 Thumb pain (Discharge Diagnosis) - 10/30/20 Attending Physician: Chari Grey NP Referring Physician: Ranjeet Rushing MD Allergies, Adverse Reactions, Alerts Substance Reaction Severity [...] (oldterm)11 07/19/08 Given 1Result Comment: [05/28/2017] HD NDC: [id number] History: [id number] Note: VIS GIVEN-DATED Admin Note: vis [id number] Note: VIS [id number] Note: [id number] History: [facility] [id number] History: [facility] [id number] Comment: [10/17/2015] PER NICO AT [id number] Note: VIS [id number] Note: VIS GIVEN Medications 12 inch Grab Bars 12 inch Grab Bars, See Instructions, # 2 each, Refills 0, Tot. Refills 0, Maintenance, Grab bars : Length 12inches Use as directed DX Unsteady Gait ICD10 R26.81 HT: 5'3 Weight 162lbs Length of need Lifetime, 07/07/20 11:45:00 EST, Supply Start Date: 07/07/20 Status: [facility], See Instructions, # 1 each, Refills 0, Tot. Refills 0, Maintenance, FAX [phone] ADMIT TO SHELTER, PT, OT. 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 Start Date: 10/17/20 Status: Orderedalbuterol 90 mcg/inh inhalation powder 2 puffs, Inhalation, Every 6 hours, PRN as needed, # 1 each, 11 Refills, Maintenance, 05/05/20 14:02:00 EDT, Powder, [facility]/pharmacy #[id number], 2 puffs Inhalation Every 6 hours,PRN:as needed, 160.02, cm, 05/05/20 13:43:00 EDT, Height, 73.6, kg, 04/18/20 10:1... Start Date: 05/05/20 Status: Orderedalendronate 70 mg oral tablet 1 tablet, By Mouth, Every week, # 12 tablet, 0 Refills, Maintenance, 10/30/20 7:29:00 EST, [facility] [id number], 160, cm, 10/20/20 15:01:00 EST, Height, 77.5, kg, 10/05/20 14:31:00 EST, Dry Weight Start Date: 10/30/20 Status: Orderedallopurinol 300 mg oral tablet 300 mg, 1, tablet, By Mouth, Daily, # 90 tablet, Refills 0, Tot. Refills 0, Maintenance, 10/28/20 12:31:00 EST, Route to Pharmacy Electronically, [facility]/pharmacy #[id number], 160, cm, 10/20/20 15:01:00 EST, Height, 77.5, kg, 10/05/20 14:31:00 EST, Dry Weight Start Date: 10/28/20 Stop Date: 01/26/21 Status: OrderedBACK BRACE BACK BRACE, See Instructions, [...] 1 Refills, Maintenance, 09/28/20 11:53:00 EST, Tablet, [facility]/pharmacy #[id number], 160, cm, 09/12/20 14:03:00 EST, Height, [...] 07/06/20 15:48:00 EST, Route to Pharmacy Electronically, [facility]/pharmacy #[id number], 160.02, cm, 07/03/20 14:54:00 EST,Height, 73.6, kg, 04/18/20 10:19:00 EDT, Dry Weight Start Date: 07/06/20 Stop Date: 10/04/20 Status: OrderedHumira 40 mg subcutaneous solution See Instructions, 40 mg [id number], 0 Refills, Maintenance, 10/23/20 13:46:00 EST, Partial fill upon patient request if the prescription is for a schedule II opioid drug. Start Date: 10/23/20 Status: OrderedLyrica 150 mg oral capsule 1 capsule = 150 mg, By Mouth, 2 times a day, DOSAGE INCREASE, # 60 capsule, 3 Refills, Maintenance, 07/04/20 11:46:00 EST, Capsule, [facility]/pharmacy #[id number], 160.02, cm, 07/03/20 14:54:00 EST, Height, 73.6, kg, 04/18/20 10:19:00 EDT, Dry Weight Start Date: 07/04/20 Status: Orderedmagnesium oxide 400 mg (240 mg elemental magnesium) oral tablet 1 tablet, By Mouth, Daily, # 90 tablet, 0 Refills, Acute, 09/20/20 12:20:00 EST, [facility] STORE [id number], 90, TAKE 1 TABLET BY MOUTH DAILY, 160, cm, 09/12/20 14:03:00 EST, Height, 71.3, kg, 08/08/20 7:00:00 EST, Dry Weight Start Date: 09/20/20 Status: OrderedMelatonin 3 mg oral tablet 1 tablet = 3 mg, By Mouth, Daily at bedtime, PRN for insomnia, [facility], # 90 tablet, 3 Refills, Maintenance, 04/24/20 9:53:00 EDT, Tablet, [facility]/pharmacy #[id number], 1 tablet By Mouth Daily at [...] if th... Start Date: 08/30/20 Status: OrderedPen Barton, 31 G x 5 mm BD Ultra Fine III See Instructions, # 200 each, Refills 5, Tot. Refills 5, Maintenance, To inject insulin BID for DM II E11.9 PER CHARI GREY NP-C, 10/06/20 10:54:00 EST, SHORT, Compound, 160, [...] 06/28/20 9:31:00 EST, Route to Pharmacy Electronically, [facility]/pharmacy #[id number], 160.02, cm, 06/01/20 11:03:00 EDT, Height, 73.6, kg, 04/18/20 10:19:00 EDT,... Start Date: 06/28/20 Status: Orderedspironolactone 100 mg oral tablet 100 mg, 1, tablet, By Mouth, Daily, # 90 tablet, Refills 0, Maintenance, 10/23/20 13:46:00 EST, Partial fill upon patient request if the prescription is for a schedule II opioid drug. Start Date: 10/23/20 Status: OrderedTransfer bench Transfer bench, See Instructions, [...] Refills, Maintenance, 07/03/20 15:20:00 EST, ER Tablet, [facility]/pharmacy #[id number], 160.02, cm, 07/03/20 14:54:00 EST, Height, 73.6, kg, 04/18/20 10:19:00 EDT, Dry Weight Start Date: 07/03/20 Status: OrderedZoloft 50 mg oral tablet 1 tablet = 50 mg, By Mouth, Daily, DOSAGE INCREASE, # 30 tablet, 0 Refills, Maintenance, 10/30/20 17:12:00 EST, Tablet, [facility]/pharmacy #[id number], Partial fill upon patient request if the prescription is for a schedule II opioid drug., 160, cm, 10/30/20 15:1... 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 50-70% bilaterally.3Patient's molded goods spot picker is [facility] and patient sees Dr. Gmue Mart Diagnosis Diagnosis Type Effective Dates Health Status Clinical Serv ice Informant Anxiety Discharge 10/30/20 Diagnosis Thumb pain Discharge 10/30/20 Diagnosis Vital Signs Most recent to oldest [Reference Range]: 1 Height 160 cm (10/30/20 3:17 PM) Social History Social History Type Response Tobacco Other: last cigarette 0. Sex
--- OUTSIDE RECORDS SUMMARY | 2022-06-09 08:43 | XMS_ITS | Continuity of Care Document ---
:1950 Author Organization [facility] Adult Address [address] [place] [address]- Care Team Providers Name Role Phone Ranjeet Rushing MD Primary Care Physician Encounter [facility] [place] Date(s): 04/19/21 - 04/26/21 [facility] Adult [address] [place] [address]- Attending Physician: Not on Staff, Attending MD Allergies, Adverse Reactions, Alerts Substance Reaction [...] (oldterm)11 07/19/08 Given 1Result Comment: [05/28/2017] HD [facility]: [id number] History: [id number] Note: VIS GIVEN-DATED Admin Note: vis [id number] Note: VIS [id number] Note: VIS-[id number] History: [facility] [place] [facility] [id number] History: [facility] [id number] Comment: [10/17/2015] PER NICO AT [id number] Note: VIS [id number] Note: VIS GIVEN Medications 12 inch Grab [...] 11 Refills, Maintenance, 05/05/20 14:02:00 EDT, Powder, [facility]/pharmacy #[id number], 2 puffs Inhalation Every 6 hours,PRN:as needed, 160.02, cm, 05/05/20 13:43:00 EDT, Height, 73.6, kg, 04/18/20 10:1... Start Date: 05/05/20 Status: Orderedalendronate 70 mg oral tablet 1 tablet, By Mouth, Every week, # 12 tablet, 6 Refills, Maintenance, 01/09/21 16:07:00 EDT, [facility] STORE [id number], 160, cm, 12/25/20 14:20:00 EDT, Height, 77.5, kg, 10/05/20 14:31:00 EST, Dry Weight Start Date: 01/09/21 Status: Orderedallopurinol 300 mg oral tablet 300 mg, 1, tablet, By Mouth, Daily, # 90 tablet, Refills 1, Tot. Refills 1, Maintenance, 01/26/21 12:31:00 EDT, Route to Pharmacy Electronically, [facility]/pharmacy #[id number], 160, cm, 12/25/20 14:20:00 EDT, [...] tablet, 5 Refills, Maintenance, 03/12/21 10:51:00 EDT, [id number], 160, cm, 02/27/21 13:50:00 EDT, Height, 79.6, [...] 1 Refills, Maintenance, 02/08/21 9:52:00 EDT, Tablet, [facility]/pharmacy #[id number], 160, cm, 01/25/21 14:11:00 EDT, [...] 02/06/21 9:05:00 EDT, Route to Pharmacy Electronically, [facility]/pharmacy #[id number], 160, cm, 01/25/21 14:11:00 EDT, Height, 77.5, kg, 10/05/20 14:31:00 EST, Dry Weight Start Date: 02/06/21 Stop Date: 08/05/21 Status: OrderedHumira 40 mg subcutaneous solution See Instructions, 40 mg [id number], 0 Refills, Maintenance, 10/23/20 13:46:00 EST, Partial fill upon patient request if the prescription is for a schedule II opioid drug. Start Date: 10/23/20 Status: OrderedLyrica 150 mg oral capsule 1 capsule = 150 mg, By Mouth, 2 times a day, DOSAGE INCREASE, # 60 capsule, 3 Refills, Maintenance, 01/23/21 14:56:00 EDT, Capsule, [facility]/pharmacy #[id number], 160, cm, 01/14/21 11:46:00 EDT, Height, 77.5, kg,10/05/20 14:31:00 EST, Dry Weight Start Date: 01/23/21 Status: Orderedmagnesium oxide 400 mg (240 mg elemental magnesium) oral tablet 1 tablet, By Mouth, Daily, # 90 tablet, 0 Refills, Acute, 09/20/20 12:20:00 EST, [facility] STORE [id number], 90, TAKE 1 TABLET BY MOUTH DAILY, 160, cm, 09/12/20 14:03:00 EST, Height, 71.3, kg, 08/08/20 7:00:00 EST, Dry Weight Start Date: 09/20/20 Status: OrderedMelatonin 3 mg oral tablet 1 tablet = 3 mg, By Mouth, Daily at bedtime, PRN for insomnia, [facility], # 90 tablet, 3 Refills, Maintenance, 04/24/20 9:53:00 EDT, Tablet, [facility]/pharmacy #[id number], 1 tablet By Mouth Daily at bedtime,PRN:for insomnia,Instr:SMGBB brand, 160.02, cm, 04/18/20... Start Date: 04/24/20 [...] if th... Start Date: 08/30/20 Status: OrderedPen Avery, 31 G x 5 mm BD Ultra [...] 01/09/21 15:06:00 EDT, Route to Pharmacy Electronically, [facility]/pharmacy #[id number], 160, cm, 12/25/20 14:20:00 EDT, Height, 77.5, kg, 10/05/20 14:31:00 EST, DrJhoan.. Start Date: 01/09/21 Status: Orderedspironolactone 100 mg oral tablet 100 mg, 1, tablet, By Mouth, Daily, # 90 tablet, Refills 0, Tot. Refills 0, Maintenance, 01/23/21 14:56:00 EDT, Route to Pharmacy Electronically, [facility]/pharmacy #[id number], Partial fill upon patient request if the [...] 3 Refills, Maintenance, 04/19/21 11:35:00 EDT, Powder, [facility]/pharmacy #[id number], Partial fill upon patient request [...] 1 Refills, Maintenance, 09/25/20 7:44:00 EST, Capsule, [facility]/pharmacy #[id number], resent from 08/14, 160, cm, 09/12/20 14:03:00 EST, Height, 71.3, kg, 08/08/20 7:00:00 EST, Dry Weight Start Date: 09/25/20 Status: OrderedZoloft 100 mg oral tablet 1 tablet = 100 mg, By Mouth, Daily, DOSAGE INCREASE, # 30 tablet, 6 Refills, Maintenance, 04/19/21 11:48:00 EDT, Tablet, [facility]/pharmacy #[id number], Partial fill upon patient request if the prescription is fora schedule II opioid drug., 160, cm, 04/19/21 11:... 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 Gume Mart Vital Signs Most recent to oldest [Reference Range]: 1 Height 160 cm (04/19/21 11:14 AM) Weight 78.7 kg (04/19/21 11:14 AM) Oxygen Saturation [94-100 %] 95 % (04/19/21 11:14 AM) Pulse Rate [55-90 bpm] 78 bpm (04/19/21 11:14 AM) Body Mass Index [18.5-24.99] 30.74 *>HHI* (04/19/21 11:14 AM) Blood Pressure [90-138/55-84 mm Hg] 112/64 mm Hg (04/19/21 11:14 AM) Blood pressure sites Arm, left (04/19/21 11:14 AM) Social History Social History Type Response Tobacco Other: last cigarette 0. Sex
--- OUTSIDE RECORDS SUMMARY | 2022-06-09 08:43 | XMS_ITS | Continuity of Care Document ---
:1950 Author Organization [facility] Adult Address [address] [place] [phone]- Care Team Providers Name Role Phone Ranjeet Del Rosario MD Primary Care Physician Encounter [facility] Date(s): 09/06/19 - 09/13/19 [facility] Adult [address] [place] [address]- [facility] Attending Physician: Chari Grey NP Referring Physician: Ranjeet Del Rosario MD Allergies, Adverse Reactions, Alerts Substance Reaction [...] (PPV23) (oldterm)11 07/19/08 Given 1Result Comment: [05/28/2017] [facility]: [id number] History: [id number] Note: VIS GIVEN-DATED Admin Note: vis [id number] Note: VIS [id number] Note: VIS-[id number] History: [facility] [id number] History: [facility] DEANGELO Gray Comment: [10/17/2015] PER NICO AT [id number] Note: VIS [id number] Note: VIS GIVEN Medications albuterol 90 mcg/inh inhalation powder 2 puffs, Inhalation, Every 6 hours, PRN as needed, # 1 each, 11 Refills, Maintenance, 12/29/18 9:38:36 EDT, Powder, 2 puffs Inhalation Every 6 hours,PRN:as needed Start Date: 12/29/18 Status: Orderedalendronate 70 mg oral tablet 1 tablet = 70 mg, By Mouth, Every week, # 12 tablet, 8 Refills, Maintenance, 12/10/18 12:24:19 EDT, Tablet Start Date: 12/10/18 Status: Orderedallopurinol 300 mg oral tablet See Instructions, # 90 tablet, Refills 1 Tot. Refills 1, TAKE 1 TABLET BY MOUTH EVERY DAY, [facility]/pharmacy #[id number] Start Date: 06/09/19 Status: OrderedBACK BRACE BACK BRACE, See Instructions, # 1 each, Refills 0, Tot. Refills 0, Maintenance, DX BACK PAIN M54.9 DANTE LIFETIME HT 5'3 WT 182 LB, 07/23/16 14:35:27, Compound Start Date: 07/23/16 Status: Orderedcalcium-vitamin D 600 mg-400 intl units oral tablet 1 tablet, By Mouth, 2 times a day, PER DR DEL ROSARIO, # 60 tablet, 11 Refills, Maintenance, 08/19/17 15:14:31, Tablet, 1 tablet By Mouth 2 times a day,Instr:PER DR DEL ROSARIO Start Date: 08/19/17 Status: OrderedCannabis (Schedule I Substance) 0 Refills, Maintenance, 01/31/16 14:20:21 Start Date: 01/31/16 Status: OrderedChantix Starter Pack 0.5 mg-1 mg oral tablet 1 tablet, By Mouth, 2 times a day, as directed on package labeling, # 53 tablet, 0 Refills, Maintenance, 08/16/19 13:14:00 EST, Tablet, [facility]/pharmacy #[id number], 1 tablet By Mouth 2 times a day,Instr:as directed on package labeling, 160.02, cm, 08/16/19 12:... Start Date: 08/16/19 Status: OrderedCompression Stockings See Instructions, # 1 [...] EDT, Compound Start Date: 05/11/19 Status: [facility] MELATONIN 3 MG TABLET See Instructions, # 30 tablet, Refills 6 Tot. Refills 6, TAKE 1 TABLET BY MOUTH AT BEDTIME NEEDEDFOR INSOMNIA, [id number] Start Date: 03/02/19 Status: [facility] VITAMIN D3 1,000 UNIT SFGL See Instructions, # 90 capsule, TAKE 1 CAPSULE BY MOUTH EVERY DAY, [id number] Start Date: 04/20/19 Status: Orderedcyanocobalamin 500 mcg oral tablet 1 tablet = 500 mcg, By Mouth, Daily, # 90 tablet, 3 Refills, Maintenance, 12/25/18 11:48:21 EDT, Tablet Start Date: 12/25/18 Status: OrderedDepends Under Pants Depends Under Pants, [...] Maintenance, 11/17/15 13:08:57 Start Date: 11/17/15 Status: OrderedFlonase 50 mcg/inh nasal spray 2 sprays, Nares, Both, Daily in AM, # 1 each, 0 Refills, Maintenance, 01/01/19 14:36:12 EDT, [place], 2 sprays Nares, Both Daily in AM Start Date: 01/01/19 Status: Orderedfolic acid 1 mg oral tablet 1 mg, 1, tablet, By Mouth, Daily, Refills 0, Maintenance, 08/11/18 15:03:20 EST Start Date: 08/11/18 Status: OrderedFreestyle Lite Lancets See Instructions, # 100 each, Refills 5, Tot. Refills 5, Maintenance, TEST BS TID DX E11.9 IDDMII, 12/28/18 12:38:05 EDT, Compound Start Date: 12/28/18 Status: OrderedFreestyle Lite Monitor See Instructions, # [...] 09/02/19 Status: Orderedfurosemide 40 mg oral tablet See Instructions, # 180 tablet, Refills 1 Tot. Refills 1, TAKE 1 TABLET BY MOUTH TWICE A DAY, [id number] Start Date: 06/02/19 Status: Orderedgabapentin 300 mg oral capsule See Instructions, # 90 capsule, Refills 5 Tot. Refills 5, TAKE 1 CAPSULE BY MOUTH THREE TIMES A DAY,[id number] Start Date: 06/30/19 Status: Orderedmagnesium oxide 400 mg oral tablet 1 tablet = 400 mg, By Mouth, Daily, PER CHARI CARDONA, # 90 tablet, 3 Refills, Maintenance, 07/20/19 16:13:45 EST Start Date: 07/20/19 Status: Orderedmelatonin 3 mg oral tablet 1 tablet = 3 mg, By Mouth, Daily at bedtime, PRN for insomnia, Additional refills at next office visit, # 30 tablet, 0 Refills, Maintenance, 02/03/19 13:30:17 EDT, Tablet Start Date: 02/03/19 Status: OrderedMethotrexate 0 Refills, Maintenance, 08/11/18 15:20:54 EST Start Date: 08/11/18 Status: Orderedmultivitamin Multiple Vitamins oral tablet 1 tablet, By Mouth, Daily, # 30 tablet, 0 Refills, Maintenance, 07/23/16 16:04:16, Tablet Start Date: 07/23/16 Status: Orderednicotine 2 mg oral transmucosal lozenge 1 lozenge = 2 mg, By Mouth, Every 2 hours, # 72 lozenge, 0 Refills, Maintenance, 04/28/18 9:12:22 EDT, 1 lozenge By Mouth Every 2 hours Start Date: 04/28/18 Status: OrderedNovoLOG FlexPen 100 units/mL injectable solution See Instructions, Inject SQ 3 times a day before meals if Blood Sugar 150-200: 6 units, 201-250: 8 units, 251-300: 10 units,, # 5 each, 5 Refills, Maintenance, 10/29/17 9:02:27, 301-350: 12 units, 351-400: 14 units, 401-450: 16 units, > 450 : Call PCP... Start Date: 10/29/17 Status: OrderedPen [place], 31 G x 5 mm BD Ultra Fine III See Instructions, # 200 each, Refills 5, Tot. Refills 5, Maintenance, To inject insulin BID for DM II E11.9 PER CHARI CARDONA, 12/28/18 12:38:05 EDT, SHORT, Compound Start Date: 12/28/18 Status: Orderedsimvastatin 10 mg oral tablet 10 mg, 1, tablet, By Mouth, Daily at bedtime, # 90 tablet, Refills 3, Tot. Refills 3, Maintenance, 07/20/19 16:14:12 EST, Route to Pharmacy Electronically, [id number], [facility]/pharmacy #[id number] Start Date: 07/20/19 Status: Orderedspironolactone 100 mg oral tablet See Instructions, # 30 tablet, Refills 5 Tot. Refills 5, TAKE 1 TABLET BY MOUTH EVERY DAY, [facility]/pharmacy #[id number] Start Date: 06/23/19 Status: OrderedtraMADol 50 mg oral tablet See Instructions, TAKE 1 TO 2 TABLETS BY MOUTH EVERY 6 HOURS, # 240 tablet, 1 Refills, Soft Stop, 08/23/19 16:39:00 EST, [id number], 160.02, cm, 08/16/19 12:59:00 EST, Height, 81.6, kg, 07/27/19 14:52:00 EST, Dry Weight Start Date: 08/23/19 Status: OrderedTrelegy Ellipta inhalation powder 1 puffs, Inhalation, Daily, at the same time every day, # 60 each, 0 Refills, Maintenance, 12/30/18 14:27:13 EDT, Powder Start Date: 12/30/18 Status: OrderedTresiba FlexTouch 200 units/mL subcutaneous solution See Instructions, # 9 Unknown, Refills 5 Tot. Refills 5, INJECT SUBCUTANEOUSLY TAKING 74 UNITS DAILY, MAX DOSE 140 UNITS, [facility]/pharmacy #[id number] Start Date: 04/20/19 Status: OrderedVictoza 18 mg/3 mL subcutaneous solution See Instructions, INJECT 1.8 MG SUBCUTANEOUS DAILY, # 9 Unknown, 1 Refills, Maintenance, 06/01/19 9:14:07 EDT Start Date: 06/01/19 Status: OrderedVitamin D3 1000 intl units oral capsule 1 capsule = 1,000 International_Units, By Mouth, Daily, # 90 capsule, 0 Refills, Maintenance, 07/14/19 16:44:04 EST, Capsule, resent from 08/14 Start Date: 07/14/19 Status: Ordered Problem List Condition Effective Dates Status Health Status Informant Adenomatous polyp of colon(Confirmed)1 Active Carpal tunnel(Confirmed) 04/14/08 Active Recurrent cellulitis [...] myelopathy(Confirmed) OA (osteoarthritis), Active cervical(Confirmed) Osteoporosis(Confirmed) Active *[facility] [phone] 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 Gume Mart Vital Signs Most recent to oldest [Reference Range]: 1 Height 160.02 cm (09/06/19 12:51 PM) Weight 80.3 kg (09/06/19 12:51 PM) Oxygen Saturation [94-100 %] 95 % (09/06/19 12:51 PM) Pulse Rate [55-90 bpm] 91 bpm *H* (09/06/19 12:51 PM) Body Mass Index [18.5-24.99] 31.36 *>HHI* (09/06/19 12:51 PM) Blood Pressure [90-138/55-84 mm Hg] 110/64 mm Hg (09/06/19 12:51 PM) Blood pressure sites Arm, left (09/06/19 12:51 PM) Social History Social History Type Response Smoking Status Current some day smoker; Typ e: Cigarettes; Other: less than 1/2 pack a day; Tobacco use times per day: 1/2 pack a day; entered on: 02/19/17 Sex
--- OUTSIDE RECORDS SUMMARY | 2022-06-09 08:43 | XMS_ITS | Continuity of Care Document ---
:1950 Author Organization [facility] Adult Address [address] [place] [phone]- Care Team Providers Name Role Phone Ranjeet Rushing MD Primary Care Physician Encounter [facility] Date(s): 05/11/20 - 06/10/20 [facility] Adult [address] [place] [id number]- [facility] Allergies, Adverse Reactions, Alerts Substance Reaction Severity [...] (PPV23) (oldterm)11 07/19/08 Given 1Result Comment: [05/28/2017] [facility]: [id number] History: [id number] Note: VIS GIVEN-DATED Admin Note: vis [id number] Note: VIS [id number] Note: [id number] [place] [facility] [id number] History: [facility] DEANGELO Gray Comment: [10/17/2015] PER NICO AT [id number] Note: VIS [id number] Note: VIS GIVEN Medications albuterol 90 mcg/inh inhalation powder 2 puffs, Inhalation, Every 6 hours, PRN as needed, # 1 each, 11 Refills, Maintenance, 05/05/20 14:02:00 EDT, Powder, [facility]/pharmacy #[id number], 2 puffs Inhalation Every 6 hours,PRN:as needed, 160.02, cm, 05/05/20 13:43:00 EDT, Height, 73.6, kg, 04/18/20 10:1... Start Date: 05/05/20 Status: Orderedalendronate 70 mg oral tablet 1 tablet, By Mouth, Every week, # 12 tablet, 0 Refills, Maintenance, 06/01/20 9:05:00 EDT, [facility]/pharmacy #[id number], 160.02, cm, 05/09/20 12:34:00 EDT, Height, 73.6, kg, 04/18/20 10:19:00 EDT, Dry Weight Start Date: 06/01/20 Status: Orderedallopurinol 300 mg oral tablet 1, tablet, By Mouth, Daily, # 90 tablet, Refills 0, Tot. Refills 0, Maintenance, 04/05/20 9:38:00 EDT, Route to Pharmacy Electronically, [facility]/pharmacy #[id number], 160.02, cm, 03/29/20 10:57:00 EDT, [...] 0 Refills, Maintenance, 06/01/20 12:01:00 EDT, Capsule, [facility]/pharmacy #[id number], 160.02, cm, 06/01/20 11:03:00 EDT, [...] TAKE 1 CAPSULE BY MOUTH EVERY DAY, [facility]/pharmacy #[id number] Start Date: 04/20/19 Status: Orderedcyanocobalamin 500 mcg oral tablet 1 tablet = 500 mcg, By Mouth, Daily, # 90 tablet, 0 Refills, Maintenance, 02/11/20 13:33:00 EDT, Tablet, [facility]/pharmacy #[id number], 160.02, cm, 02/11/20 13:03:00 EDT, [...] 04/07/20 11:50:00 EDT, Route to Pharmacy Electronically, [facility]/pharmacy #[id number], 160.02, cm, 03/29/20 10:57:00 EDT,Height, 81.6, kg, 07/27/19 14:52:00 EST, Dry Weight Start Date: 04/07/20 Status: Orderedgabapentin 300 mg oral capsule 300 mg, 1, capsule, By Mouth, 3 times a day, # 90 capsule, Refills 5, Tot. Refills 5, Maintenance, 04/13/20 12:42:00 EDT, Route to Pharmacy Electronically, [facility]/pharmacy #[id number], 160.02, cm, 03/29/20 10:57:00 EDT, [...] 1 Refills, Maintenance, 05/12/20 14:54:00 EDT, Capsule, [facility]/pharmacy #[id number], 160.02, cm, 05/09/20 12:34:00 EDT, [...] 3 Refills, Maintenance, 04/24/20 9:53:00 EDT, Tablet, [facility]/pharmacy #[id number], 1 tablet By Mouth Daily [...] each, 5 Refills, Maintenance, 02/21/20 11:53:00 EDT, [facility]/pharmacy #[id number], 301-350: 12 units, 351-400: 14 units, 401-450: 1... Start Date: 02/21/20 Status: OrderedoxyCODONE 5 mg oral capsule 1 capsule = 5 mg, By Mouth, Every 6 hours, PRN as needed for pain, 0 Refills, Maintenance, 06/01/20 11:12:00 EDT, Capsule, Partial fill upon patient request Start Date: 06/01/20 Status: OrderedPen [place], 31 G x 5 mm BD Ultra Fine III See Instructions, # 200 each, Refills 5, Tot. Refills 5, Maintenance, To inject insulin BID for DM II E11.9 PER RAJNI ANDREWC, 12/28/18 12:38:05 EDT, SHORT, Compound Start Date: 12/28/18 Status: Orderedsimvastatin 10 mg oral tablet 10 mg, 1, tablet, By Mouth, Daily at bedtime, # 90 tablet, Refills 3, Tot. Refills 3, Maintenance, 07/20/19 16:14:12 EST, Route to Pharmacy Electronically, [id number], [facility]/pharmacy #[id number] Start Date: 07/20/19 Status: Orderedspironolactone 100 mg oral tablet 1, tablet, By Mouth, Daily, # 30 tablet, Refills 2, Tot. Refills 2, Maintenance, 05/16/20 16:31:00 EDT, Route to Pharmacy Electronically, [facility]/pharmacy #[id number], 160.02, cm, 05/09/20 12:34:00 EDT, Height, 73.6, kg, 04/18/20 10:19:00 EDT, Dry Weight Start Date: 05/16/20 Status: OrderedtraMADol 50 mg oral tablet See Instructions, PRN Pain , Severe, 1-2 tablets by mouth every 6 hours Schedule follow visit, # 240tablet, 1 Refills, Soft Stop, 05/19/20 16:27:00 EDT, [facility]/pharmacy #[id number], 160.02, cm, 05/09/20 12:34:00 EDT, [...] 5 Refills, Soft Stop, 12/16/19 15:45:00 EDT, [facility]/pharmacy #[id number], 160.02, cm, 11/02/19 15:34:00 EDT, Height, 81.6, kg, 07/27/19 14:52:00 EST, Dry Weight Start Date: 12/16/19 Status: OrderedVictoza 18 mg/3 mL subcutaneous solution See Instructions, INJECT 1.8 MG UNDER THE SKIN ONCE DAILY, # 9 Unknown, 0 Refills, Maintenance, [facility] [id number], 160.02, cm, 05/09/20 12:34:00 EDT, Height, 73.6, kg, 04/18/20 10:19:00 EDT, Dry Weight Start Date: 05/26/20 Status: OrderedVitamin D3 1000 intl units oral capsule 1 capsule = 1,000 International_Units, By Mouth, Daily, # 90 capsule, 3 Refills, Maintenance, 10/20/19 9:16:00 EST, Capsule, [facility]/pharmacy #[id number], resent from 08/14, 160.02, cm, 09/29/19 14:57:00 EST, Height, 81.6, kg, 07/27/19 14:52:00 EST, Dry Weight Start Date: 10/20/19 Status: OrderedWellbutrin XL 150 mg/24 hours oral tablet, extended release 1 tablet = 150 mg, By Mouth, Every 24 hours, do not crush or chew, # 30 tablet, 6 Refills, Maintenance, 12/09/19 16:12:00 EDT, ER Tablet, [facility]/pharmacy #[id number], 160.02, cm, 11/02/19 15:34:00 EDT, [...] (osteoarthritis), Active cervical(Confirmed) Osteoporosis(Confirmed) Active *[facility] [phone] [employer] TOOL Alpa Active Nathaniel(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 Gume Mart Social History Social History Type Response Smoking Status Current some day smoker; Typ e: Cigarettes; Other: less than 1/2 pack a day; Tobacco use times per day: 1/2 pack a day; entered on: 02/19/17 Sex
--- OUTSIDE RECORDS SUMMARY | 2022-06-09 08:43 | XMS_ITS ---
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 Problem Non-pressure L97.311 Active 1810396 08 chronic ulcer of right ankle limited to breakdown of skin ALLERGIES Substance Reaction Event Type Date Status Latex rash Drug Allergy Mar, Active Ambien Unknown Drug Allergy Mar, Active Benadryl rash Drug Allergy Mar, Active Lac-Hydrin rash Drug Allergy Mar, Active ENCOUNTERS Encounter Location Date Diagnosis [facility] [address] [place], [place] [address] [facility] [address] [place], [place] [address] [facility] [address] Mar, Gou ty arthritis of left [place], [place] foot M10.9 ; Cl osed [address] nondisplaced fra cture of second metatarsa l bone of left foot, initi al encounter S92.32 5A ; Closed nondispla kailee fracture of thir d metatarsal bone of left foot, initial en counter S92.335A ; Close d nondisplaced fra cture of fourth metatarsa l bone of left foot, initi al encounter S92.34 5A ; Type 2 diabetes james blas with polyneuropathy E 11.42 and Psoriasis L40.[address] December, [place] nondisplaced [place] fracture [place] [address] metatarsal bone of left foot, initial en counter S92.325A ; Gouty arthritis of left foot M10 .9 ; Closed nondispla kailee fracture of thir d metatarsal bone of left foot, initial en counter S92.335A ; Close d nondisplaced fra cture of fourth metatarsa l bone of left foot, initi al encounter S92.34 5A ; Type 2 diabetes james blas with polyneuropathy E 11.42 and Psoriasis L40.[address] Aug, [place] [address] Aug, Typ e 2 diabetes mellitus [place] with diabetic [address] polyneuropathy E 11.42 ; Cellulitis of le ft ankle L03.116 ; Non-pr essure chronic ulcer of right ankle limited to breakdown of skin L97.311 ; Non-pressure chr onic ulcer of left ankle li mited to breakdown of ski n L97.321 ; Closed nondisp laced fracture of seco nd metatarsal bone of left foot, initial en counter S92.325A ; Close d nondisplaced fra cture of third metatarsal bone of left foot, initi al encounter S92.33 5A ; Closed nondispla kailee fracture of four th metatarsal bone of left foot, initial en counter S92.345A and Pso riasis L40.[address] Aug, [place] [address] Jun, Typ e 2 diabetes mellitus [place] with diabetic [address] polyneuropathy E 11.42 ; Dermatitis L30.9 ; Non-pressure chr onic ulcer of right ankle l imited to breakdown of ski n L97.311 and Metatarsalgi a of left foot M77.42 [facility] [address] Apr, [place] [address] [facility] Apr, Typ e 2 diabetes mellitus [place] with diabetic [address] polyneuropathy E 11.42 ; Dermatitis L30.9 ; Non-pressure chr onic ulcer of right ankle l imited to breakdown of ski n L97.311 and Metatarsalgi a of left foot M77.42 [facility] [address] Mar, [place] [address] [facility] [address] Feb, Typ e 2 diabetes mellitus [place] with diabetic [address] polyneuropathy E 11.42 ; Stress fracture, left foot, initial en counter for fracture M84 .375A ; Dermatitis L30.9 ; Non-pressure chr onic ulcer of right ankle l imited to breakdown of ski n L97.311 and Metatarsalgi a of left foot M77.42 [facility] [address] Feb, [place] [address] [facility] [address] Oct, Typ e 2 diabetes mellitus [place] diabetic [address] polyneuropathy E 11.42 [facility] [address] Jun, [place] [address] [facility] [address] May, [place] [address] [facility] [address] Mar, Typ e 2 diabetes mellitus [place] with diabetic [address] polyneuropathy E 11.42 [facility] [address] Feb, [place] [address] [facility] [address] Feb, [place] [address] [facility] [address] Aug, Typ e 2 diabetes mellitus [place] with diabetic [address] polyneuropathy E 11.42 ; Other hammer toe (s) (acquired), righ t foot M20.41 and Other hammer toe(s) (acquired ), left foot M20.[address] Aug, [place] [address] Feb, Typ e 2 diabetes mellitus [place] diabetic [address] polyneuropathy E 11.42 ; Lichen planus L4 3.9 and Psoriasis L40.[address] [facility] Nov, Typ e 2 diabetes mellitus [place] with diabetic [address] polyneuropathy E 11.42 ; Other hammer toe (s) (acquired), righ t foot M20.41 ; Other h ammer toe(s) (acquired ), left foot M20.42 ; Li calzada planus L43.9 ; S kin disorder L98.9 a nd Psoriasis L40.[address] [facility] Aug, Lic hen planus L43.9 [place] [address] 16 Jun, 2018 [place] [address] Jun, [place] [address] Jun, Lic hen planus L43.9 [place] [address] Jun, [place] [address] Jun, [place] [address] [facility] Jun, Tin ea pedis B35.3 ; [facility] [place] Xerosis cutis L 85.3 ; Type [address] 2 diabetes melli tus with polyneuropathy E 11.42 ; Skin disorder L9 8.9 and Other eczema L30 .[address] May, Tin ea pedis B35.3 [place] [address] [facility] [address] May, [place] [address] [facility] [address] May, [place] [address] [facility] May, Tin ea pedis B35.3 ; [place] Xerosis cutis L 85.3 ; [address] Fissure in skin of foot R23.4 ; Type 2 d iabetes mellitus with polyneuropathy E 11.42 and Skin disorder L9 8.9 IMMUNIZATIONS Vaccine Route Administration Date Status COVID-19 Pfizer BioNTech Vaccine Unknown Sep 24, 2020 Administered Influenza Unknown Jun 12, 2021 Administered Influenza Unknown Apr 24, 2020 Administered Influenza Unknown May 25, 2019 Administered Influenza Unknown Mar 25, 2018 Administered SOCIAL HISTORY Qualifiers Date Current Smoker REASON FOR REFERRAL FUNCTIONAL STATUS PLAN OF CARE Activity Details Future Appointment Provider Name:Amber fox, 2022-07-02 01:30:00 PM, [address] [place] [address] [place], [address], Pending Test *Uric Acid, Serum Pending Test ESR Pending Test X ray : Foot, left 3V Pending Test X ray : Foot, left 3V Pending Test X ray : Foot, left 3V Pending Test X ray : Foot, left 3V Future/Pending Procedure 32023- Biopsy of skin lesion Future/Pending Procedure 81489- Biopsy of Addt'l Lesi ons Future/Pending Procedure 40545- Biopsy of skin lesion VITAL SIGNS Height 5 ft 3 in in 2022-03-26 Weight 175 lbs 2022-03-26 BMI 31.00 kg/m2 2022-03-26 Heart Rate 100 /min 2019-09-14 Temperature 97.9 degrees Fahrenheit 2020-11-01 Blood pressure systolic 107 mm Hg 2019-09-14 Blood pressure diastolic 56 mm Hg 2019-09-14 MEDICATIONS Medication Instructions Dosage Frequency Start End Duration Statu s Date Date Vitamin B-12 500 Orally Once a 2 tablets 24h Active MCG day Colcrys 0.6 MG Orally Once a 1 tablet 24h 7 days Ac tive day Hydrocortisone Rectal Twice a 1 application 12h Jun, 30 d ay(s) Not-Taki 2.5 % day to affected 2018 ng area Folic Acid Not-Taki ng Fluticasone Not-Taki Furoate ng buPROPion HCl ER Orally Once a 1 tablet in 24h 30 da y(s) Active (XL) 150 MG day the morning Fluticasone Not-Taki Furoate-Vilantero ng l Furosemide 40 MG Orally Once a 1 tablet 24h Active day Methotrexate Active Keflex 500 MG Orally every 1 capsule 12h Aug, day(s) A ctive 12 hrs 2021 Magnesium Oxide Orally Once a 1 tablet as 24h Active 400 MG day needed Allopurinol 300 Orally Once a 1 tablet 24h A ctive MG day Extra Depth as directed Nov, Orthopedic Shoes 2018 (1 Pair) with Customized Heat Molded Multidensity Innersoles (3 Pair) traMADol HCl 50 Orally every 6 1 tablet as 6h Active MG hrs needed Colchicine Active Victoza Active Humira 40 as directed Not-Taki MG/0.8ML ng Multi Vitamin - Orally Once a 1 tablet 24h A ctive day Alendronate 1 tablet Active Sodium 70 MG Spironolactone Orally Once a 1 tablet 24h Ac tive 100 MG day Extra Depth as directed Aug, Orthopedic Shoes 2019 (1 Pair) with Customized Heat Molded Multidensity Innersoles (3 Pair) NovoLOG 100 as directed Active UNIT/ML Melatonin 3 MG Orally Once a 1 tablet at 24h Active day bedtime as needed with food Gabapentin 300 MG Orally Once a 1 capsule 24h Active day Skyrizi 150 Dose Active Vitamin B12 Active Fish Oil 500 MG Orally Twice a 1 capsule 12h Active day Ciclopirox Externally 1 application 12h 30 days Acti ve Olamine 0.77 % Twice a day to affected area Tresiba FlexTouch Active Clobetasol Externally 1 application 12h Jun, days Not- Taki Propionate 0.05 % Twice a day to affected 2018 ng area Simvastatin 10 MG Orally Once a 1 tablet in 24h Active day the evening Vitamin D 1000 Orally Once a 1 tablet 24h Ac tive UNIT day PROCEDURES Procedure Date Ordered Result Body Site X-RAY EXAM OF LEFT FOOT 3V March 06, 2021 TRIM SKIN LESIONS, OVER 4 November 27, 2018 TRIM SKIN LESIONS, OVER 4 March 05, 2019 BIOPSY, SKIN ADD-ON Jun 30, 2018 X-RAY EXAM OF LEFT FOOT 3V Sep 19, 2021 BIOPSY OF SKIN LESION Jun 30, 2018 X-RAY EXAM OF LEFT FOOT 3V Mar 26, 2022 X-RAY EXAM OF LEFT FOOT 3V December 25, 2021 BIOPSY OF SKIN LESION Jun 09, 2018 TRIM SKIN LESIONS, OVER 4 Apr 04, 2020 TRIM SKIN LESIONS, OVER 4 Sep 14, 2019 TRIM SKIN LESIONS, OVER 4 Jul 06, 2021 RESULTS Name Result Date Reference Range HEMOGLOBIN A1C (GLYCOHEMOGLOBIN) 2021-01-29 TOTAL HEMOGLOBIN (HGBA1C) HEMOGLOBIN A1C (HH) 6.6 HEMOGLOBIN A1C % (HH) ESTIMATED AVG GLUCOSE REASON FOR VISIT Insurance Providers [facility] Patient Patient Patient Patient Patient Subscriber Subscriber Subscriber Group Insurance Plan Plan Plan Plan ID Relationship Address Phone Name Date of ID Name Date of No Type Insurance Insurance Insurance Coverage to Subscriber Address Phone Name Dates [employer] [phone] [place] [id number] th Care Claims [address] [place] [address] [facility] [address] MEDICAL (GENERAL) HISTORY Type Description Date Medical History Anxiety Medical History Arthritis (OA,RA) Medical History Asthma Medical History Back,Hip,Knee Pain Medical History Cataracts Medical History Depression Medical History Diverticulosis Medical History Gout Medical History Kidney Disease Medical History Macular Degeneration Medical History Nerve Disorder(RSD) Medical History Numbness (Neuropathy) Medical History Osteoporosis Medical History Poor Circulation (PVD) Medical History Psoriasis/Eczema Medical History Joint/bone implants/Screws Medical History Transfusions Medical History Diabetes Medical History Cellulitis Medical History fractured ribs and toes Surgical History Veins in legs Surgical History Fusion in leg Surgical History Kidney Stones Surgical History Operation on back of neck 08/09/2020 Hospitalization History alf- for fractured pelvis l eft side 11/12-12/13 Hospitalization History alf- feet 04/14 Hospitalization History Urgent [facility] - [place] fractured ribs a nd toes 07/2021
--- OUTSIDE RECORDS SUMMARY | 2022-06-09 08:44 | XMS_ITS | Continuity of Care Document ---
:1950 Author Organization [facility] Address [address] [place] [address]- Care Team Providers Name Role Phone Ranjeet Rushing MD Primary Care Physician [facility] Date[facility]): [facility]20 - 11/12/[address] [address]- Discharge Disposition: A-D/C Home Attending Physician: Jaciel Kelly DO Admitting Physician: Jaciel Kelly DO Referring Physician: Not on Staff, Referring MD Allergies, Adverse Reactions, Alerts Substance Reaction [...] (PPV23) (oldterm)11 07/19/08 Given 1Result Comment: [05/28/2017] [facility]: [id number] History: [id number] Note: VIS GIVEN-DATED Admin Note: vis cgyyc5Pshmt Note: VIS uykfl4Clkgr Note: VIS-UILTI2Irtkdtsa History: [facility] [id number] History: [facility] DEANGELO Gray Comment: [10/17/2015] PER NICO AT [id number] Note: VIS [id number] Note: VIS GIVEN Medications 12 inch Grab Bars 12 inch Grab Bars, See Instructions, # 2 each, Refills 0, Tot. Refills 0, Maintenance, Grab bars : Length 12inches Use as directed DX Unsteady Gait ICD10 R26.81 HT: 5'3 Weight 162lbs Length of need Lifetime, 07/07/20 11:45:00 EST, Supply Start Date: 07/07/20 Status: OrderedADMIT [facility], See Instructions, # 1 each, Refills 0, Tot. Refills 0, Maintenance, FAX [phone] ADMIT TO [facility], PT, OT. 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 Start Date: 10/17/20 Status: Orderedalbuterol 90 mcg/inh inhalation powder 2 puffs, Inhalation, Every 6 hours, PRN as needed, # 1 each, 11 Refills, Maintenance, 05/05/20 14:02:00 EDT, Powder, [facility]/pharmacy #[id number], 2 puffs Inhalation Every 6 hours,PRN:as needed, 160.02, cm, 05/05/20 13:43:00 EDT, Height, 73.6, kg, 04/18/20 10:1... Start Date: 05/05/20 Status: Orderedalendronate 70 mg oral tablet 1 tablet, By Mouth, Every week, # 12 tablet, 0 Refills, Maintenance, 10/30/20 7:29:00 EST, [facility] [id number], 160, cm, 10/20/20 15:01:00 EST, Height, 77.5, kg, 10/05/20 14:31:00 EST, Dry Weight Start Date: 10/30/20 Status: Orderedallopurinol 300 mg oral tablet 300 mg, 1, tablet, By Mouth, Daily, # 90 tablet, Refills 0, Tot. Refills 0, Maintenance, 10/28/20 12:31:00 EST, Route to Pharmacy Electronically, [facility]/pharmacy #[id number], 160, cm, 10/20/20 15:01:00 EST, Height, [...] 1 Refills, Maintenance, 09/28/20 11:53:00 EST, Tablet, [facility]/pharmacy #[id number], 160, cm, 09/12/20 14:03:00 EST, Height, [...] 07/06/20 15:48:00 EST, Route to Pharmacy Electronically, [facility]/pharmacy #[id number], 160.02, cm, 07/03/20 14:54:00 EST,Height, 73.6, kg, 04/18/20 10:19:00 EDT, Dry Weight Start Date: 07/06/20 Stop Date: 10/04/20 Status: OrderedHumira 40 mg subcutaneous solution See Instructions, 40 mg [id number], 0 Refills, Maintenance, 10/23/20 13:46:00 EST, Partial fill upon patient request if the prescription is for a schedule II opioid drug. Start Date: 10/23/20 Status: OrderedLyrica 150 mg oral capsule 1 capsule = 150 mg, By Mouth, 2 times a day, DOSAGE INCREASE, # 60 capsule, 3 Refills, Maintenance, 07/04/20 11:46:00 EST, Capsule, [facility]/pharmacy #0693, 160.02, cm, 07/03/20 14:54:00 EST, Height, 73.6, kg, 04/18/20 10:19:00 EDT, Dry Weight Start Date: 07/04/20 Status: Orderedmagnesium oxide 400 mg (240 mg elemental magnesium) oral tablet 1 tablet, By Mouth, Daily, # 90 tablet, 0 Refills, Acute, 09/20/20 12:20:00 EST, [facility] STORE 54979, 90, TAKE 1 TABLET BY MOUTH DAILY, 160, cm, 09/12/20 14:03:00 EST, Height, 71.3, kg, 08/08/20 7:00:00 EST, Dry Weight Start Date: 09/20/20 Status: OrderedMelatonin 3 mg oral tablet 1 tablet = 3 mg, By Mouth, Daily at bedtime, PRN for insomnia, [facility] brand, # 90 tablet, 3 Refills, Maintenance, 04/24/20 9:53:00 EDT, Tablet, [facility]/pharmacy #[id number], 1 tablet By Mouth Daily at bedtime,PRN:for insomnia,Instr:[employer] brand, 160.02, cm, 04/18/20... Start Date: 04/24/20 [...] 08/30/20 Status: OrderedoxyCODONE 5 mg oral tablet 2.5 mg, 0.5, tablet, By Mouth, Every 6 hours, PRN, # 5 tablet, Refills 0, Tot. Refills 0, Acute 11/16/20 17:00:00 EDT, as needed for pain, 11/12/20 16:40:00 EDT, Print Requisition, Partial fill upon patient request if the prescription is for a schedul... Start Date: 11/12/20 Stop Date: 11/16/20 Status: OrderedPen [place], 31 G x 5 mm BD Ultra Fine III See Instructions, # 200 each, Refills 5, Tot. Refills 5, Maintenance, To inject insulin BID for DM II E11.9 PER RAJNI ANDREWC, 10/06/20 10:54:00 EST, SHORT, Compound, 160, [...] 06/28/20 9:31:00 EST, Route to Pharmacy Electronically, [facility]/pharmacy #[id number], 160.02, cm, 06/01/20 11:03:00 EDT, [...] # 9 Unknown, 5 Refills, 06/20/20 15:08:00EDT, [facility]/pharmacy #[id number], 160.02, cm, 06/01/20 11:03:00 EDT, Height, 73.6, kg, 04/18/20 10:19:00 EDT,Dry Weight Start Date: 06/20/20 Status: OrderedVitamin D3 1000 intl units oral capsule 1 capsule = 1,000 International_Units, By Mouth, Daily, # 90 capsule, 1 Refills, Maintenance, 09/25/20 7:44:00 EST, Capsule, [facility]/pharmacy #[id number], resent from 08/14, 160, cm, 09/12/20 [...] 0 Refills, Maintenance, 10/30/20 17:12:00 EST, Tablet, [id number], Partial fill upon patient [...] myelopathy(Confirmed) OA (osteoarthritis), Active cervical(Confirmed) Osteoporosis(Confirmed) Active *[facility] [phone] 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 50-70% bilaterally.3Patient's assisted living coordinator is [facility] and patient sees Dr. Gume Mart Vital Signs Most recent to oldest 1 2 3 [Reference Range]: Oxygen Saturation [94-100 %] 95 % 97 % 94 % (11/12/20 4:07 PM) (11/12/20 3:05 PM) (11/12/20 1:5 1 PM) Pulse Rate [55-90 bpm] 98 bpm 68 bpm 99 bpm *H* (11/12/20 3:05 PM) *H* (11/12/20 4:07 PM) (11/12/20 1:51 PM) Blood Pressure [90-138/55-84 138/55 mm Hg 120/56 mm Hg 134 /62 mm Hg mm Hg] (11/12/20 4:07 PM) (11/12/20 3:05 PM) (11/12/20 1:5 1 PM) Respiratory Rate [16-30 18 br/min 17 br/min 17 br/mi n br/min] (11/12/20 4:07 PM) (11/12/20 3:05 PM) (11/12/20 1:5 1 PM) Temperature [96.8-100.4 DegF] 98.9 DegF 99.1 DegF 98 .9 DegF (11/12/20 3:05 PM) (11/12/20 1:51 PM) (11/12/20 12: 05 PM) Mode of Delivery (Oxygen) Room air Room air room a ir (11/12/20 4:07 PM) (11/12/20 3:05 PM) (11/12/20 1:5 1 PM) Blood pressure sites Arm, left Arm, left Arm, left (11/12/20 4:07 PM) (11/12/20 3:05 PM) (11/12/20 1:5 1 PM) Temperature Route Oral Oral Oral (11/12/20 3:05 PM) (11/12/20 1:51 PM) (11/12/20 12: 05 PM) Social History Social History Type Response Tobacco Other: last cigarette 0. Sex
--- OUTSIDE RECORDS SUMMARY | 2022-06-09 08:44 | XMS_ITS | Continuity of Care Document ---
:1950 Author Organization [facility] Address [address] [place] [address]- Care Team Providers Name Role Phone Kristan SUTTON, Ranjeet Beatty Primary Care Physician [facility] 12[facility]26[facility]20 - 01/25/21 [facility] [address] [place] [address]- Allergies, Adverse Reactions, Alerts Substance Reaction Severity [...] (oldterm)11 07/19/08 Given 1Result Comment: [05/28/2017] [facility]: [id number] History: [id number] Note: VIS GIVEN-DATED Admin Note: vis zmfyp5Vikji Note: VIS eaebf9Fpdak Note: VIS-[id number] History: [facility] [id number] History: [facility] [id number] Comment: [10/17/2015] PER NICO AT [id number] Note: VIS [id number] Note: VIS GIVEN Medications 12 inch Grab Bars 12 inch Grab Bars, See Instructions, # 2 each, Refills 0, Tot. Refills 0, Maintenance, Grab bars : Length 12inches Use as directed DX Unsteady Gait ICD10 R26.81 HT: 5'3 Weight 162lbs Length of need Lifetime, 07/07/20 11:45:00 EST, Supply Start Date: 07/07/20 Status: OrderedADMIT TO [facility] ADMIT TO [facility], See Instructions, # 1 each, Refills 0, Tot. Refills 0, Maintenance, FAX [phone] ADMIT TO LONG-TERM, PT, OT. 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 Start Date: 10/17/20 Status: Orderedalbuterol 90 mcg/inh inhalation powder 2 puffs, Inhalation, Every 6 hours, PRN as needed, # 1 each, 11 Refills, Maintenance, 05/05/20 14:02:00 EDT, Powder, [facility]/pharmacy #[id number], 2 puffs Inhalation Every 6 hours,PRN:as needed, 160.02, cm, 05/05/20 13:43:00 EDT, Height, 73.6, kg, 04/18/20 10:1... Start Date: 05/05/20 Status: Orderedalendronate 70 mg oral tablet 1 tablet, By Mouth, Every week, # 12 tablet, 6 Refills, Maintenance, 01/09/21 16:07:00 EDT, [facility] STORE [id number], 160, cm, 12/25/20 14:20:00 EDT, Height, 77.5, kg, 10/05/20 14:31:00 EST, Dry Weight Start Date: 01/09/21 Status: Orderedallopurinol 300 mg oral tablet 300 mg, 1, tablet, By Mouth, Daily, # 90 tablet, Refills 1, Tot. Refills 1, Maintenance, 01/26/21 12:31:00 EDT, Route to Pharmacy Electronically, [facility]/pharmacy #[id number], 160, cm, 12/25/20 14:20:00 [...] 1 Refills, Maintenance, 09/28/20 11:53:00 EST, Tablet, [facility]/pharmacy #[id number], 160, cm, 09/12/20 14:03:00 EST, Height, [...] 07/06/20 15:48:00 EST, Route to Pharmacy Electronically, [facility]/pharmacy #[id number], 160.02, cm, 07/03/20 14:54:00 EST,Height, 73.6, kg, 04/18/20 10:19:00 EDT, Dry Weight Start Date: 07/06/20 Stop Date: 10/04/20 Status: OrderedHumira 40 mg subcutaneous solution See Instructions, 40 mg N7dueal, 0 Refills, Maintenance, 10/23/20 13:46:00 EST, Partial fill upon patient request if the prescription is for a schedule II opioid drug. Start Date: 10/23/20 Status: OrderedLyrica 150 mg oral capsule 1 capsule = 150 mg, By Mouth, 2 times a day, DOSAGE INCREASE, # 60 capsule, 3 Refills, Maintenance, 01/23/21 14:56:00 EDT, Capsule, [facility]/pharmacy #[id number], 160, cm, 01/14/21 11:46:00 EDT, Height, 77.5, kg,10/05/20 14:31:00 EST, Dry Weight Start Date: 01/23/21 Status: Orderedmagnesium oxide 400 mg (240 mg elemental magnesium) oral tablet 1 tablet, By Mouth, Daily, # 90 tablet, 0 Refills, Acute, 09/20/20 12:20:00 EST, [facility] STORE 71238, 90, TAKE 1 TABLET BY MOUTH DAILY, 160, cm, 09/12/20 14:03:00 EST, Height, 71.3, kg, 08/08/20 7:00:00 EST, Dry Weight Start Date: 09/20/20 Status: OrderedMelatonin 3 mg oral tablet 1 tablet = 3 mg, By Mouth, Daily at bedtime, PRN for insomnia, [facility] brand, # 90 tablet, 3 Refills, Maintenance, 04/24/20 9:53:00 EDT, Tablet, [facility]/pharmacy #[id number], 1 tablet By Mouth [...] if th... Start Date: 08/30/20 Status: OrderedPen [place], 31 G x 5 mm BD Ultra [...] 01/09/21 15:06:00 EDT, Route to Pharmacy Electronically, [facility]/pharmacy #[id number], 160, cm, 12/25/20 14:20:00 EDT, Height, 77.5, kg, 10/05/20 14:31:00 EST, DrMillie. Start Date: 01/09/21 Status: Orderedspironolactone 100 mg oral tablet 100 mg, 1, tablet, By Mouth, Daily, # 90 tablet, Refills 0, Tot. Refills 0, Maintenance, 01/23/21 14:56:00 EDT, [id number] Partial fill upon patient request if the prescription is for a schedule II opioid thomas... Start Date: 01/23/21 Stop Date: 04/23/21 Status: OrderedtraMADol 50 mg oral tablet See Instructions, PRN Pain , Severe, 1-2 tablets by mouth every 6 hours, # 240 tablet, 1 Refills, Soft Stop, 01/25/21 16:45:00 EDT, [facility]/pharmacy #[id number], 160, cm, 01/25/21 14:11:00 [...] EDT, Dry Weight Start Date: 07/03/20 Status: OrderedZofran 8 mg oral tablet 1 tablet = 8 mg, By Mouth, 3 times a day, # 9 tablet, 0 Refills, Acute 02/08/21 0:00:00 EDT, 01/25/21 15:07:00 EDT, Tablet, [id number], Partial fill upon patient request if the prescription is for a schedule II opioid drug., 160, cm, 01/25/21... 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 and patient sees Dr. Gume Mart Social History Social History Type Response Tobacco Other: last cigarette 0. Sex
--- OUTSIDE RECORDS SUMMARY | 2022-06-09 08:44 | XMS_ITS | Continuity of Care Document ---
:1950 Author Organization [facility] Address [address] [place] [address], [address] [place] [address]- Care Team Providers Name Role Phone Kristan SUTTON, Ranjeet Beatty Primary Care Physician [facility] 08[facility]20 - 09/28/[address], [address] [place], [place] [address] Allergies, Adverse Reactions, Alerts Substance Reaction Severity [...] (PPV23) (oldterm)11 07/19/08 Given 1Result Comment: [05/28/2017] [facility]: [id number] History: [id number] Note: VIS GIVEN-DATED Admin Note: vis drgmu5Ccrmn Note: VIS [id number] Note: VIS-YDPXR6Yivqslhd History: [facility] [id number] History: [facility] DEANGELO Gray Comment: [10/17/2015] PER NICO AT [id number] Note: VIS [id number] Note: VIS GIVEN Medications 12 inch Grab [...] 11 Refills, Maintenance, 05/05/20 14:02:00 EDT, Powder, [facility]/pharmacy #0693, 2 puffs Inhalation Every 6 hours,PRN:as needed, 160.02, cm, 05/05/20 13:43:00 EDT, Height, 73.6, kg, 04/18/20 10:1... Start Date: 05/05/20 Status: Orderedallopurinol 300 mg oral tablet 300 mg, 1, tablet, By Mouth, Daily, # 90 tablet, Refills 0, Tot. Refills 0, Maintenance, 07/06/20 15:50:00 EST, Route to Pharmacy Electronically, [facility]/pharmacy #[id number], 160.02, cm, 07/03/20 14:54:00 EST, Height, [...] 1 Refills, Maintenance, 09/28/20 11:53:00 EST, Tablet, [facility]/pharmacy #0693, 160, cm, 09/12/20 14:03:00 EST, Height, [...] 07/06/20 15:48:00 EST, Route to Pharmacy Electronically, [facility]/pharmacy #[id number], 160.02, cm, 07/03/20 14:54:00 EST,Height, 73.6, [...] 3 Refills, Maintenance, 07/04/20 11:46:00 EST, Capsule, [facility]/pharmacy #0693, 160.02, cm, 07/03/20 14:54:00 EST, Height, 73.6, kg, 04/18/20 10:19:00 EDT, Dry Weight Start Date: 07/04/20 Status: Orderedmagnesium oxide 400 mg (240 mg elemental magnesium) oral tablet 1 tablet, By Mouth, Daily, # 90 tablet, 0 Refills, Acute, 09/20/20 12:20:00 EST, [facility], 90, TAKE 1 TABLET BY MOUTH DAILY, 160, cm, 09/12/20 14:03:00 EST, Height, 71.3, kg, 08/08/20 7:00:00 EST, Dry Weight Start Date: 09/20/20 Status: OrderedMelatonin 3 mg oral tablet 1 tablet = 3 mg, By Mouth, Daily at bedtime, PRN for insomnia, [facility], # 90 tablet, 3 Refills, Maintenance, 04/24/20 9:53:00 EDT, Tablet, [facility]/pharmacy #[id number], 1 tablet By Mouth Daily at bedtime,PRN:for insomnia,Instr:[employer] brand, 160.02, cm, 04/18/20... Start Date: 04/24/20 [...] patient request Start Date: 08/30/20 Status: OrderedPen [place], 31 G x 5 mm BD Ultra Fine III See Instructions, # 200 each, Refills 5, Tot. Refills 5, Maintenance, To inject insulin BID for DM II E11.9 PER RAJNI CARDONA, 12/28/18 12:38:05 EDT, SHORT, Compound Start Date: 12/28/18 Status: OrderedRaised toleit seat with arms Raised [...] 06/28/20 9:31:00 EST, Route to Pharmacy Electronically, [facility]/pharmacy #[id number], 160.02, cm, 06/01/20 11:03:00 EDT, Height, [...] Refills, Maintenance, 07/03/20 15:20:00 EST, ER Tablet, [facility]/pharmacy #0693, 160.02, cm, 07/03/20 14:54:00 EST, Height, [...] myelopathy(Confirmed) OA (osteoarthritis), Active cervical(Confirmed) Osteoporosis(Confirmed) Active *[facility] [phone] 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 50-70% bilaterally.3Patient's herd tester is [facility] and patient sees Dr. Gume Mart Social History Social History Type Response Tobacco Other: last cigarette 0. Sex
--- OUTSIDE RECORDS SUMMARY | 2022-06-09 08:44 | XMS_ITS | Continuity of Care Document ---
:1950 Author Organization [facility] Address [address] [place] [address]- Care Team Providers Name Role Phone Ranjeet Rushing MD Primary Care Physician [facility] Date[facility]s): 06/11/21 - 07/11/21 [facility] [address] [place] [address]- Allergies, Adverse Reactions, Alerts Substance Reaction Severity [...] 13-valent vaccine 06/21/15 Given pneumococcal 23-valent vaccine 2/11/14 Recorded tetanus/diphtheria/pertussis, acel(Tdap) 08/08/10 Recorde d Tet/Diphth/Acel, Pertussis (oldterm)10 07/19/08 Given Pneumococcal Poly (PPV23) (oldterm)11 07/19/08 Given 1Result Comment: [05/28/2017] [facility]: [id number] History: [id number] Note: VIS GIVEN-DATED Admin Note: vis [id number] Note: VIS ygcex7Itode Note: VIS-[id number] History: [facility] [id number] History: [facility] [id number] Comment: [10/17/2015] PER NICO AT [id number] Note: VIS [id number] Note: VIS GIVEN Medications 12 inch Grab [...] 11 Refills, Maintenance, 05/05/20 14:02:00 EDT, Powder, [facility]/pharmacy #[id number], 2 puffs Inhalation Every 6 hours,PRN:as needed, 160.02, cm, 05/05/20 13:43:00 EDT, Height, 73.6, kg, 04/18/20 10:1... Start Date: 05/05/20 Status: Orderedalendronate 70 mg oral tablet 1 tablet, By Mouth, Every week, # 12 tablet, 6 Refills, Maintenance, 01/09/21 16:07:00 EDT, [facility] STORE 00077, 160, cm, 12/25/20 14:20:00 EDT, Height, 77.5, kg, 10/05/20 14:31:00 EST, Dry Weight Start Date: 01/09/21 Status: Orderedallopurinol 300 mg oral tablet 1, tablet, By Mouth, Daily, # 90 tablet, Refills 1, Route to Pharmacy Electronically, [facility] ST[facility] 10125, 160, cm, 06/19/21 13:57:00 EDT, Height, 77.27, [...] tablet, 5 Refills, Maintenance, 03/12/21 10:51:00 EDT, [facility] STORE 57009, 160, cm, 02/27/21 13:50:00 EDT, Height, 79.6, [...] 1 Refills, Maintenance, 02/08/21 9:52:00 EDT, Tablet, [facility]/pharmacy #0693, 160, cm, 01/25/21 14:11:00 EDT, [...] 02/06/21 9:05:00 EDT, Route to Pharmacy Electronically, [facility]/pharmacy #0627, 160, cm, 01/25/21 14:11:00 EDT, Height, 77.5, kg, 10/05/20 14:31:00 EST, Dry Weight Start Date: 02/06/21 Stop Date: 08/05/21 Status: OrderedHumira 40 mg subcutaneous solution See Instructions, 40 mg [id number], 0 Refills, Maintenance, 10/23/20 13:46:00 EST, Partial fill upon patient request if the prescription is for a schedule II opioid drug. Start Date: 10/23/20 Status: OrderedLyrica 150 mg oral capsule 1 capsule = 150 mg, By Mouth, 2 times a day, DOSAGE INCREASE, # 60 capsule, 3 Refills, Maintenance, 07/09/21 14:12:00 EST, Capsule, [facility]/pharmacy #[id number], 160, cm, 06/19/21 13:57:00 EDT, Height, 77.27, kg, 03/24/21 20:58:00 EDT, Dry Weight Start Date: 07/09/21 Status: Orderedmagnesium oxide 400 mg (240 mg elemental magnesium) oral tablet 1 tablet, By Mouth, Daily, # 90 tablet, 0 Refills, Acute, 09/20/20 12:20:00 EST, [facility] STORE 48564, 90, TAKE 1 TABLET BY MOUTH DAILY, 160, cm, 09/12/20 14:03:00 EST, Height, 71.3, kg, 08/08/20 7:00:00 EST, Dry Weight Start Date: 09/20/20 Status: Orderedmagnesium oxide 400 mg oral tablet 1 tablet = 400 mg, By Mouth, Daily, # 100 tablet, 2 Refills, Maintenance, 06/05/21 11:32:00 EDT, Tablet, [facility]/pharmacy #0693, Partial fill upon patient request if the prescription is for a schedule II opioid drug., 160, cm, 05/21/21 11:03:00 EDT, Heigh... Start Date: 06/05/21 Status: OrderedMelatonin 3 mg oral tablet 1 tablet = 3 mg, By Mouth, Daily at bedtime, PRN for insomnia, [facility], # 90 tablet, 3 Refills, Maintenance, 04/24/20 9:53:00 EDT, Tablet, [facility]/pharmacy #0693, 1 tablet By Mouth [...] EDT, Injec... Start Date: 06/11/21 Status: OrderedPen [place], 31 G x 5 mm BD Ultra [...] 01/09/21 15:06:00 EDT, Route to Pharmacy Electronically, [facility]/pharmacy #0693, 160, cm, 12/25/20 14:20:00 EDT, Height, 77.5, kg, 10/05/20 14:31:00 EST, Start Date: 01/09/21 Status: Orderedspironolactone 100 mg oral tablet 100 mg, 1, tablet, By Mouth, Daily, # 90 tablet, Refills 0, Tot. Refills 0, Maintenance, 01/23/21 14:56:00 EDT, [facility] Partial fill upon patient request if the prescription is for a schedule II opioid thomas... Start Date: 01/23/21 Stop Date: 04/23/21 Status: OrderedtraMADol 50 mg oral tablet See Instructions, TAKE 1-2 TABLETS BY MOUTH EVERY 6 HOURS SCHEDULE FOLLOW VISIT, NEEDED FOR PAIN,# 240 tablet, 5 Refills, Maintenance, 05/31/21 9:52:00 EDT, [facility]/pharmacy #[id number], 160, cm, 05/21/21 11:03:00 EDT, Height, [...] 3 Refills, Maintenance, 04/19/21 11:35:00 EDT, Powder, [facility]/pharmacy #0693, Partial fill upon patient request [...] THE SKIN ONCE DAILY, # 9 Unknown, 2 Refills, [facility], 160, cm, 06/19/21 13:57:00 EDT, Height, 77.27, kg, 03/24/21 20:58:00 EDT, Dry Weight Start Date: 06/23/21 Status: OrderedVitamin D3 1000 intl units oral capsule 1 capsule = 1,000 International_Units, By Mouth, Daily, # 90 capsule, 1 Refills, Maintenance, 09/25/20 7:44:00 EST, Capsule, [facility], resent from 08/14, 160, cm, 09/12/20 14:03:00 EST, Height, 71.3, kg, 08/08/20 7:00:00 EST, Dry Weight Start Date: 09/25/20 Status: OrderedZoloft 100 mg oral tablet 1.5 tablet = 150 mg, By Mouth, Daily, DOSAGE INCREASE, # 45 tablet, 6 Refills, Maintenance, 05/21/2111:21:00 EDT, Tablet, [facility], Partial fill upon patient request if the prescription is for a schedule II opioid drug., 160, cm, 05/21/21 1... 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 50-70% bilaterally.3Patient's body stylist is [facility] and patient sees Dr. Gume Mart Social History Social History Type Response Tobacco Other: last cigarette 0. Sex
--- OUTSIDE RECORDS SUMMARY | 2022-06-09 08:44 | XMS_ITS | Continuity of Care Document ---
:1950 Author Organization [facility] Address [address] [place] [address]- Care Team Providers Name Role Phone Kristan SUTTON, Ranjeet Beatty Primary Care Physician [facility] - 10/28/20 [facility] [address] [place] [address]- Allergies, Adverse Reactions, Alerts Substance Reaction Severity [...] (PPV23) (oldterm)11 07/19/08 Given 1Result Comment: [05/28/2017] [facility]: [id number] History: [id number] Note: VIS GIVEN-DATED Admin Note: vis [id number] Note: VIS gohdn2Snfwi Note: VIS-APXMC3Fjlehhss History: [facility] [place] [id number] History: [facility] DEANGELO Gray Comment: [10/17/2015] PER NICO AT [id number] Note: VIS [id number] Note: VIS GIVEN Medications 12 inch Grab Bars 12 inch Grab Bars, See Instructions, # 2 each, Refills 0, Tot. Refills 0, Maintenance, Grab bars : Length 12inches Use as directed DX Unsteady Gait ICD10 R26.81 HT: 5'3 Weight 162lbs Length of need Lifetime, 07/07/20 11:45:00 EST, Supply Start Date: 07/07/20 Status: OrderedADMIT TO [facility] AD[facility], See Instructions, # 1 each, Refills 0, Tot. Refills 0, Maintenance, FAX [phone] ADMIT TO JAIL, PT, OT. 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 Start Date: 10/17/20 Status: Orderedalbuterol 90 mcg/inh inhalation powder 2 puffs, Inhalation, Every 6 hours, PRN as needed, # 1 each, 11 Refills, Maintenance, 05/05/20 14:02:00 EDT, Powder, [facility]/pharmacy #[id number], 2 puffs Inhalation Every 6 hours,PRN:as needed, 160.02, cm, 05/05/20 13:43:00 EDT, Height, 73.6, kg, 04/18/20 10:1... Start Date: 05/05/20 Status: Orderedalendronate 70 mg oral tablet 1 tablet = 70 mg, By Mouth, Every week, # 4 tablet, 0 Refills, Maintenance, 10/23/20 13:46:00 EST, Tablet, Partial fill upon patient request if the prescription is for a schedule II opioid drug. Start Date: 10/23/20 Status: Orderedallopurinol 300 mg oral tablet 300 mg, 1, tablet, By Mouth, Daily, # 90 tablet, Refills 0, Tot. Refills 0, Maintenance, 10/28/20 12:31:00 EST, Route to Pharmacy Electronically, [facility]/pharmacy #[id number], 160, cm, 10/20/20 15:01:00 EST, [...] 1 Refills, Maintenance, 09/28/20 11:53:00 EST, Tablet, [facility]/pharmacy #[id number], 160, cm, 09/12/20 14:03:00 EST, [...] 07/06/20 15:48:00 EST, Route to Pharmacy Electronically, [facility]/pharmacy #[id number], 160.02, cm, 07/03/20 14:54:00 EST,Height, 73.6, kg, 04/18/20 10:19:00 EDT, Dry Weight Start Date: 07/06/20 Stop Date: 10/04/20 Status: OrderedHumira 40 mg subcutaneous solution See Instructions, 40 mg S9unrit, 0 Refills, Maintenance, 10/23/20 13:46:00 EST, Partial fill upon patient request if the prescription is for a schedule II opioid drug. Start Date: 10/23/20 Status: OrderedLyrica 150 mg oral capsule 1 capsule = 150 mg, By Mouth, 2 times a day, DOSAGE INCREASE, # 60 capsule, 3 Refills, Maintenance, 07/04/20 11:46:00 EST, Capsule, [facility]/pharmacy #[id number], 160.02, cm, 07/03/20 14:54:00 EST, Height, 73.6, kg, 04/18/20 10:19:00 EDT, Dry Weight Start Date: 07/04/20 Status: Orderedmagnesium oxide 400 mg (240 mg elemental magnesium) oral tablet 1 tablet, By Mouth, Daily, # 90 tablet, 0 Refills, Acute, 09/20/20 12:20:00 EST, [facility] STORE [id number], 90, TAKE 1 TABLET BY MOUTH DAILY, 160, cm, 09/12/20 14:03:00 EST, Height, 71.3, kg, 08/08/20 7:00:00 EST, Dry Weight Start Date: 09/20/20 Status: OrderedMelatonin 3 mg oral tablet 1 tablet = 3 mg, By Mouth, Daily at bedtime, PRN for insomnia, [facility] brand, # 90 tablet, 3 Refills, Maintenance, 04/24/20 9:53:00 EDT, Tablet, [facility]/pharmacy #[id number], 1 tablet By Mouth Daily at bedtime,PRN:for insomnia,Instr:Net Zero [employer] brand, 160.02, cm, 04/18/20... Start Date: 04/24/20 [...] if th... Start Date: 08/30/20 Status: OrderedPen [place], 31 G x 5 mm BD Ultra Fine III See Instructions, # 200 each, Refills 5, Tot. Refills 5, Maintenance, To inject insulin BID for DM II E11.9 PER RAJNI EMERY DISK SHARPENER-C, 10/06/20 10:54:00 EST, SHORT, Compound, 160, cm, [...] 06/28/20 9:31:00 EST, Route to Pharmacy Electronically, [facility]/pharmacy #[id number], 160.02, cm, 06/01/20 11:03:00 EDT, [...] # 9 Unknown, 5 Refills, 06/20/20 15:08:00EDT, [facility]/pharmacy #[id number], 160.02, cm, 06/01/20 11:03:00 EDT, [...] Refills, Maintenance, 07/03/20 15:20:00 EST, ER Tablet, [facility]/pharmacy #[id number], 160.02, cm, 07/03/20 14:54:00 EST, Height, 73.6, kg, 04/18/20 10:19:00 EDT, Dry Weight Start Date: 07/03/20 Status: OrderedZoloft 25 mg oral tablet 1 tablet = 25 mg, By Mouth, Daily, # 30 tablet, 0 Refills, Maintenance, 10/16/20 14:17:00 EST, Tablet, [facility]/pharmacy #[id number], Partial fill upon patient request if the prescription is for a schedule II opioid drug., 160, cm, 10/16/20 13:53:00 EST, Height,... 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 Gume Mart Social History Social History Type Response Tobacco Other: last cigarette 0. Sex
--- OUTSIDE RECORDS SUMMARY | 2022-06-09 08:44 | XMS_ITS | Continuity of Care Document ---
:1950 Author Organization [facility] Address [address] [place] [address]- Care Team Providers Name Role Phone Kristan SUTTON, Ranjeet Beatty Primary Care Physician [facility]): 05/10[facility]21 - 06/09/21 [facility] [address] [place] [address]- Allergies, Adverse Reactions, Alerts Substance Reaction Severity Status Lac-Hydrin Active Latex Active Ambien Active Benadryl Active Immunizations Given and Recorded [...] 1Result Comment: [05/28/2017] [facility]: [id number] History: [id number] Note: VIS GIVEN-DATED Admin Note: vis [id number] Note: VIS jcphw9Unuzh Note: VIS-[id number] History: [facility] [id number] History: [facility] [id number] Comment: [10/17/2015] PER NICO AT [id number] Note: VIS [id number] Note: VIS GIVEN Medications 12 inch Grab [...] 11 Refills, Maintenance, 05/05/20 14:02:00 EDT, Powder, [facility]/pharmacy #[id number], 2 puffs Inhalation Every 6 hours,PRN:as needed, 160.02, cm, 05/05/20 13:43:00 EDT, Height, 73.6, kg, 04/18/20 10:1... Start Date: 05/05/20 Status: Orderedalendronate 70 mg oral tablet 1 tablet, By Mouth, Every week, # 12 tablet, 6 Refills, Maintenance, 01/09/21 16:07:00 EDT, [facility] STORE [id number], 160, cm, 12/25/20 14:20:00 EDT, Height, 77.5, kg, 10/05/20 14:31:00 EST, Dry Weight Start Date: 01/09/21 Status: Orderedallopurinol 300 mg oral tablet 300 mg, 1, tablet, By Mouth, Daily, # 90 tablet, Refills 1, Tot. Refills 1, Maintenance, 01/26/21 12:31:00 EDT, Route to Pharmacy Electronically, [facility]/pharmacy #[id number], 160, cm, 12/25/20 14:20:00 [...] tablet, 5 Refills, Maintenance, 03/12/21 10:51:00 EDT, [facility] STORE [facility]4637, 160, cm, 02/27/21 13:50:00 EDT, Height, 79.6, [...] 1 Refills, Maintenance, 02/08/21 9:52:00 EDT, Tablet, [facility]/pharmacy #[id number], 160, cm, 01/25/21 14:11:00 [...] 02/06/21 9:05:00 EDT, Route to Pharmacy Electronically, [facility]/pharmacy #[id number], 160, cm, 01/25/21 14:11:00 EDT, Height, 77.5, kg, 10/05/20 14:31:00 EST, Dry Weight Start Date: 02/06/21 Stop Date: 08/05/21 Status: OrderedHumira 40 mg subcutaneous solution See Instructions, 40 mg D2azvli, 0 Refills, Maintenance, 10/23/20 13:46:00 EST, Partial fill upon patient request if the prescription is for a schedule II opioid drug. Start Date: 10/23/20 Status: OrderedLyrica 150 mg oral capsule 1 capsule = 150 mg, By Mouth, 2 times a day, DOSAGE INCREASE, # 60 capsule, 3 Refills, Maintenance, 01/23/21 14:56:00 EDT, Capsule, [facility]/pharmacy #[id number], 160, cm, 01/14/21 11:46:00 EDT, Height, 77.5, kg,10/05/20 14:31:00 EST, Dry Weight Start Date: 01/23/21 Status: Orderedmagnesium oxide 400 mg (240 mg elemental magnesium) oral tablet 1 tablet, By Mouth, Daily, # 90 tablet, 0 Refills, Acute, 09/20/20 12:20:00 EST, [facility] STORE 80747, 90, TAKE 1 TABLET BY MOUTH DAILY, 160, cm, 09/12/20 14:03:00 EST, Height, 71.3, kg, 08/08/20 7:00:00 EST, Dry Weight Start Date: 09/20/20 Status: Orderedmagnesium oxide 400 mg oral tablet 1 tablet = 400 mg, By Mouth, Daily, # 100 tablet, 2 Refills, Maintenance, 06/05/21 11:32:00 EDT, Tablet, [facility]/pharmacy #[id number], Partial fill upon patient request if the prescription is for a schedule II opioid drug., 160, cm, 05/21/21 11:03:00 EDT, Heigh... Start Date: 06/05/21 Status: OrderedMelatonin 3 mg oral tablet 1 tablet = 3 mg, By Mouth, Daily at bedtime, PRN for insomnia, [facility] brand, # 90 tablet, 3 Refills, Maintenance, 04/24/20 9:53:00 EDT, Tablet, [facility]/pharmacy #[id number], 1 tablet By Mouth [...] if th... Start Date: 08/30/20 Status: OrderedPen [place], 31 G x 5 mm BD Ultra [...] 01/09/21 15:06:00 EDT, Route to Pharmacy Electronically, [facility]/pharmacy #[id number], 160, cm, 12/25/20 14:20:00 EDT, Height, 77.5, kg, 10/05/20 14:31:00 EST, Start Date: 01/09/21 Status: Orderedspironolactone 100 mg oral tablet 100 mg, 1, tablet, By Mouth, Daily, # 90 tablet, Refills 0, Tot. Refills 0, Maintenance, 01/23/21 14:56:00 EDT, [id number] Partial fill upon patient request if the prescription is for a schedule II opioid thomas... 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 Gume Matr Social History Social History Type Response Tobacco Other: last cigarette 0. Sex
--- OUTSIDE RECORDS SUMMARY | 2022-06-09 08:44 | XMS_ITS | Continuity of Care Document ---
:1950 Author Organization [facility] Address [address] [facility], [facility] [place] [address] [place] [address]- Care Team Providers Name Role Phone Ranjeet Del Rosario MD Primary Care Physician Encounter 09/01/19 - 09/08/19 [facility] [address], [address] [place] [address]- [facility] Attending Physician: Ranjeet Del Rosario MD Admitting Physician: Ranjeet Del Rosario MD Referring Physician: Ranjeet Del Rosario MD Allergies, [...] (PPV23) (oldterm)11 07/19/08 Given 1Result Comment: [05/28/2017] [facility]: [id number] History: [id number] Note: VIS GIVEN-DATED Admin Note: vis oqgnr1Wwpxf Note: VIS ccdgz5Udgnk Note: VIS-MLUJT7Jvkaukwa History: [facility] [id number] History: [facility] DEANGELO Gray Comment: [10/17/2015] PER NICO AT [id number] Note: VIS [id number] Note: VIS GIVEN Medications albuterol 90 mcg/inh [...] TAKE 1 TABLET BY MOUTH EVERY DAY, [facility]/pharmacy #[id number] Start Date: 06/09/19 Status: OrderedBACK BRACE [...] 0 Refills, Maintenance, 08/16/19 13:14:00 EST, Tablet, [facility]/pharmacy #[id number], 1 tablet By Mouth 2 times [...] TABLET BY MOUTH AT BEDTIME NEEDEDFOR INSOMNIA, [facility]/pharmacy #[id number] Start Date: 03/02/19 Status: Ordered[facility]S VITAMIN D3 1,000 UNIT SFGL See Instructions, # 90 capsule, TAKE 1 CAPSULE BY MOUTH EVERY DAY, [facility]/pharmacy #[id number] Start Date: 04/20/19 Status: [...] each, 0 Refills, Maintenance, 01/01/19 14:36:12 EDT, [place], 2 sprays Nares, Both Daily in AM [...] 400 mg, By Mouth, Daily, PER RAJNI EMERY NP-Marquita, # 90 tablet, 3 Refills, Maintenance, 07/20/19 [...] Call PCP... Start Date: 10/29/17 Status: OrderedPen [place], 31 G x 5 mm BD Ultra [...] 07/20/19 16:14:12 EST, Route to Pharmacy Electronically, [id number], [facility]/pharmacy #[id number] Start Date: 07/20/19 Status: Orderedspironolactone 100 mg oral tablet See Instructions, # 30 tablet, Refills 5 Tot. Refills 5, TAKE 1 TABLET BY MOUTH EVERY DAY, [facility]/pharmacy #[id number] Start Date: 06/23/19 Status: OrderedtraMADol 50 mg oral tablet See Instructions, TAKE 1 TO 2 TABLETS BY MOUTH EVERY 6 HOURS, # 240 tablet, 1 Refills, Soft Stop, 08/23/19 16:39:00 EST, [facility]/pharmacy #[id number], 160.02, cm, 08/16/19 12:59:00 EST, Height, [...] 74 UNITS DAILY, MAX DOSE 140 UNITS, 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 Gume Mart Social History Social History Type Response Smoking Status Current some day smoker; Typ e: Cigarettes; Other: less than 1/2 pack a day; Tobacco use times per day: 1/2 pack a day; entered on: 02/19/17 Sex
--- OUTSIDE RECORDS SUMMARY | 2022-06-09 08:44 | XMS_ITS | Continuity of Care Document ---
:1950 Author Organization [facility] Address [address] [place] [address]- Care Team Providers Name Role Phone Aarti SUTTON, Jose Person Primary Care Physician [facility] 07[facility]20 - 08/16/20 [facility] [address] [place] [address]- Allergies, Adverse Reactions, Alerts Substance Reaction Severity [...] Given 1Result Comment: [05/28/2017] [facility]: [id number] History: [id number] Note: VIS GIVEN-DATED Admin Note: vis fxswh7Lymry Note: VIS zxndw8Cifwd Note: VIS-[id number] History: [facility] [id number] History: [facility] Isaac Comment: [10/17/2015] PER NICO AT [id number] Note: VIS [id number] Note: VIS GIVEN Medications 12 inch Grab [...] 11 Refills, Maintenance, 05/05/20 14:02:00 EDT, Powder, [facility]/pharmacy #0693, 2 puffs Inhalation Every 6 hours,PRN:as needed, 160.02, cm, 05/05/20 13:43:00 EDT, Height, 73.6, kg, 04/18/20 10:1... Start Date: 05/05/20 Status: Orderedalendronate 70 mg oral tablet 1 tablet, By Mouth, Every week, # 12 tablet, 0 Refills, Maintenance, 06/01/20 9:05:00 EDT, [facility]/pharmacy #0693, 160.02, cm, 05/09/20 12:34:00 EDT, Height, 73.6, kg, 04/18/20 10:19:00 EDT, Dry Weight Start Date: 06/01/20 Status: Orderedallopurinol 300 mg oral tablet 300 mg, 1, tablet, By Mouth, Daily, # 90 tablet, Refills 0, Tot. Refills 0, Maintenance, 07/06/20 15:50:00 EST, Route to Pharmacy Electronically, [facility]/pharmacy #0693, 160.02, cm, 07/03/20 14:54:00 EST, [...] 0 Refills, Maintenance, 06/01/20 12:01:00 EDT, Capsule, [facility], 160.02, cm, 06/01/20 11:03:00 EDT, [...] 0 Refills, Maintenance, 02/11/20 13:33:00 EDT, Tablet, [facility], 160.02, cm, 02/11/20 13:03:00 EDT, Height, [...] 07/06/20 15:48:00 EST, Route to Pharmacy Electronically, [facility]/pharmacy #0693, 160.02, cm, 07/03/20 14:54:00 EST,Height, 73.6, kg, 04/18/20 10:19:00 EDT, Dry Weight Start Date: 07/06/20 Stop Date: 10/04/20 Status: OrderedHumira 40 mg subcutaneous solution Subcutaneous Infusion, Once, 0 Refills, Maintenance, 11/02/19 10:31:00 EDT Start Date: 11/02/19 Stop Date: 11/16/19 Status: OrderedLyrica 150 mg oral capsule 1 capsule = 150 mg, By Mouth, 2 times a day, DOSAGE INCREASE, # 60 capsule, 3 Refills, Maintenance, 07/04/20 11:46:00 EST, Capsule, [facility]/pharmacy #0693, 160.02, cm, 07/03/20 14:54:00 EST, Height, 73.6, kg, 04/18/20 10:19:00 EDT, Dry Weight Start Date: 07/04/20 Status: Orderedmagnesium oxide 400 mg oral tablet 1 tablet = 400 mg, By Mouth, Daily, PER RAJNI CARDONA, # 90 tablet, 0 Refills, Maintenance, 06/28/20 12:11:00 EST, [facility]/pharmacy #0693, 160.02, cm, 06/01/20 11:03:00 EDT, Height, 73.6, kg, 04/18/20 10:19:00 EDT, Dry Weight Start Date: 06/28/20 Status: OrderedMelatonin 3 mg oral tablet 1 tablet = 3 mg, By Mouth, Daily at bedtime, PRN for insomnia, [facility] brand, # 90 tablet, 3 Refills, Maintenance, 04/24/20 9:53:00 EDT, Tablet, [facility]/pharmacy #[id number], 1 tablet By Mouth Daily [...] each, 5 Refills, Maintenance, 02/21/20 11:53:00 EDT, [facility]/pharmacy #[id number], 301-350: 12 units, 351-400: 14 units, 401-450: 1... Start Date: 02/21/20 Status: OrderedoxyCODONE 5 mg oral capsule 1 capsule = 5 mg, By Mouth, Every 6 hours, PRN as needed for pain, 0 Refills, Maintenance, 06/01/20 11:12:00 EDT, Capsule, Partial fill upon patient request Start Date: 06/01/20 Status: OrderedPen [place], 31 G x 5 mm BD Ultra [...] 06/28/20 9:31:00 EST, Route to Pharmacy Electronically, [facility]/pharmacy #[id number], 160.02, cm, 06/01/20 11:03:00 EDT, Height, 73.6, kg, 04/18/20 10:19:00 EDT,... Start Date: 06/28/20 Status: Orderedspironolactone 100 mg oral tablet 1, tablet, By Mouth, Daily, # 30 tablet, Refills 2, Tot. Refills 2, Maintenance, 05/16/20 16:31:00 EDT, Route to Pharmacy Electronically, [facility]/pharmacy #[id number], 160.02, cm, 05/09/20 12:34:00 EDT, Height, 73.6, kg, 04/18/20 10:19:00 EDT, Dry Weight Start Date: 05/16/20 Status: OrderedtraMADol 50 mg oral tablet See Instructions, PRN Pain , Severe, 1-2 tablets by mouth every 6 hours Schedule follow visit, # 240tablet, 1 Refills, Soft Stop, 05/19/20 16:27:00 EDT, [facility]/pharmacy #0693, 160.02, cm, 05/09/20 12:34:00 EDT, Height, 73.6, kg, 04/18/20 10:19:00 EDT,... 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 50-70% bilaterally.3Patient's high heel builder is [facility] and patient sees Dr. Gume Mart Social History Social History Type Response Tobacco Other: last cigarette 0. Sex
--- OUTSIDE RECORDS SUMMARY | 2022-06-09 08:44 | XMS_ITS | Continuity of Care Document ---
:1950 Author Organization [facility] Address [address] [place] [address]- Care Team Providers Name Role Phone Kristan SUTTON, Ranjeet Beatty Primary Care Physician [facility] Date[facility]): [facility]22 - 03/06/22 [facility] [address], [place] [address] Attending Physician: AdmEvans blackwood Admitting Physician: Admtr, Ar8 Referring Physician: Admtr, Ar8 Allergies, Adverse Reactions, Alerts Substance Reaction Severity Status Latex Active Lac-Hydrin Active Ambien Active Benadryl Active Immunizations Given [...] (PPV23) (oldterm)11 07/19/08 Given 1Result Comment: [05/28/2017] [facility]: [id number] History: [id number] Note: VIS GIVEN-DATED Admin Note: vis [id number] Note: VIS [id number] Note: VIS-[id number] History: [facility] [id number] History: [facility] [id number] Comment: [10/17/2015] PER NICO AT [id number] Note: VIS [id number] Note: VIS GIVEN Medications 12 inch Grab [...] 11 Refills, Maintenance, 05/05/20 14:02:00 EDT, Powder, [facility]/pharmacy #[id number], 2 puffs Inhalation Every 6 hours,PRN:as needed, 160.02, cm, 05/05/20 13:43:00 EDT, Height, 73.6, kg, 04/18/20 10:1... Start Date: 05/05/20 Status: Orderedalendronate 70 mg oral tablet 1 tablet, By Mouth, Every week, # 12 tablet, 1 Refills, [facility], 160, cm, 01/17/22 14:38:00 EDT, Height, 74.8, kg, 11/01/21 15:05:00 EST, Dry Weight Start Date: 01/30/22 Status: Orderedallopurinol 300 mg oral tablet 1, tablet, By Mouth, Daily, # 90 tablet, Refills 0, Route to [facility] Electronically, [facility], 160, cm, 11/27/21 14:08:00 EDT, Height, 74.8, kg, 11/01/21 15:05:00 EST, Dry Weight Start Date: 12/30/21 Status: OrderedBACK BRACE BACK BRACE, See Instructions, # 1 each, Refills 0, Tot. Refills 0, Maintenance, DX BACK PAIN M54.9 DANTE LIFETIME HT 5'3 WT 182 LB, 07/23/16 14:35:27, Compound Start Date: 07/23/16 Status: OrderedBD UF SHORT PEN NEEDLE [id number] BD UF SHORT PEN NEEDLE [id number], See Instructions, # 200 Unknown, 5 Refills, USE TO INJECT INSULIN TWICE A DAY, 160, cm, 11/27/21 14:08:00 EDT, Height, 74.8, kg, 11/01/21 15:05:00 EST, Dry Weight Start Date: 11/30/21 Status: OrderedbuPROPion 300 mg/24 hours (XL) oral tablet, extended release 1 tablet, By Mouth, Daily, # 30 tablet, 5 Refills, [facility], 160, cm, 02/04/22 13:44:00 EDT, Height, 74.8, kg, 11/01/21 15:05:00 EST, Dry Weight Start Date: 02/12/22 Status: OrderedCompression Stockings See Instructions, # 1 [...] EDT, Dry Weight Start Date: 08/27/21 Status: OrderedCVS VITAMIN D3 25 MCG SOFTGEL [facility] VITAMIN D3 25 MCG SOFTGEL, 1, capsule, By Mouth, Daily, # 90 capsule, 1 Refills, 160, cm, 10/16/21 14:42:00 EST, Height, 75, kg, 09/14/21 11:51:00 EST, Dry Weight Start Date: 10/17/21 Status: Orderedcyanocobalamin 500 mcg oral tablet 1 tablet = 500 mcg, By Mouth, Daily, # 90 tablet, 1 Refills, Maintenance, 09/18/21 11:52:00 EST, Tablet, [id number], 160, cm, 09/14/21 11:51:00 EST, Height, [...] Supply Start Date: 09/28/21 Status: OrderedFish Oil 1 tablet, By Mouth, Daily, 0 Refills, Maintenance, 11/01/21 15:03:00 EST, Partial fill upon patient request if the prescription is for a schedule II opioid drug. Start Date: 11/01/21 Status: OrderedFish Oil = 1,000 mg, By Mouth, Daily, 0 Refills, Maintenance, 11/17/15 13:08:57 EDT Start Date: 11/17/15 Status: OrderedfluvoxaMINE 100 mg oral tablet 1 tablet = 100 mg, By Mouth, 2 times a day, DOSAGE INCREASE, # 60 tablet, 1 Refills, Maintenance, 02/21/22 16:12:00 EDT, Tablet, [facility]/pharmacy #[id number], Partial fill upon patient request if the prescription is for a schedule II opioid drug., 160, cm, 01/25... Start Date: 02/21/22 Status: OrderedFreestyle Lite Lancets See Instructions, # [...] Strips See Instructions, # 100 each, Refills 6, Tot. Refills 6, Maintenance, TEST BS TID DX E11.9 IDDMII, 01/23/22 9:07:00 EDT, Compound, 160, cm, 01/17/22 14:38:00 EDT, Height, 74.8, kg, 11/01/21 15:05:00 EST, Dry Weight Start Date: 01/23/22 Status: Orderedfurosemide 40 mg oral tablet 1, tablet, By Mouth, 2 times a day, # 180 tablet, Refills 1, Route to [facility] Electronically, [facility], 160, cm, 10/15/21 15:03:00 EST, Height, 75, kg, 09/14/21 11:51:00 EST, Dry Weight Start Date: 10/16/21 Status: Orderedhydrocortisone 2.5% topical cream 1 application, Topically, 3 times a day, apply in a thin film to the affected skin and rub in gentlyand completely, # 30 Gm, 0 Refills, Acute 03/14/22 0:00:00 EDT, 02/21/22 16:08:00 EDT, Cream, [facility]/pharmacy #[id number], Partial fill upon patient request if... Start Date: 02/21/22 Stop Date: 03/14/22 Status: OrderedLidoderm 5% film 1 patch, Topically, Daily, # 30 patch, 11 Refills, Maintenance, 12/28/21 15:03:00 EDT, [id number], Partial fill upon patient request if the prescription is for a schedule II opioid drug., 1 patch Topically Daily,x30 days, 160, cm, 11/27/21 14:... Start Date: 12/28/21 Stop Date: 12/23/22 Status: OrderedLyrica 150 mg oral capsule 1 capsule = 150 mg, By Mouth, 2 times a day, DOSAGE INCREASE, # 60 capsule, 3 Refills, Maintenance, 11/12/21 16:27:00 EDT, Capsule, [facility]/pharmacy #[id number], 160, cm, 11/01/21 15:12:00 EST, Height, 74.8, kg,11/01/21 15:05:00 EST, Dry Weight Start Date: 11/12/21 Status: Orderedmagnesium oxide 400 mg (240 mg elemental magnesium) oral tablet 1 tablet, By Mouth, Daily, # 90 tablet, 0 Refills, Acute, 09/20/20 12:20:00 EST, [facility], 90, TAKE 1 TABLET BY MOUTH DAILY, 160, cm, 09/12/20 14:03:00 EST, Height, 71.3, kg, 08/08/20 7:00:00 EST, Dry Weight Start Date: 09/20/20 Status: Orderedmagnesium oxide 400 mg oral tablet 1 tablet = 400 mg, By Mouth, Daily, # 100 tablet, 2 Refills, Maintenance, 06/05/21 11:32:00 EDT, Tablet, [id number], Partial fill upon patient request if the prescription is for a schedule II opioid drug., 160, cm, 05/21/21 11:03:00 EDT, Heigh... Start Date: 06/05/21 Status: OrderedMelatonin 3 mg oral tablet 1 tablet = 3 mg, By Mouth, Daily at bedtime, PRN for insomnia, [facility], # 90 tablet, 3 Refills, Maintenance, 10/17/21 12:02:00 EST, Tablet, [id number], 1 tablet By Mouth Daily at bedtime,PRN:for insomnia,Instr:[facility], 160, cm, 10/16/21 14... Start Date: 10/17/21 Status: OrderedMiconazole 2% Topical Ointment 1 applicator, [...] EDT, Injec... Start Date: 06/11/21 Status: OrderedPen [place], 31 G x 5 mm BD Ultra Fine III See Instructions, # 200 each, Refills 5, Tot. Refills 5, Maintenance, To inject insulin BID for DM II E11.9 PER RAJNI EMERY NP-C, 10/06/20 10:54:00 EST, SHORT, Compound, 160, cm, 10/05/20 14:31:00 EST, Height, 77.5, kg, 10/05/20 14:31:00 EST, Dry W... Start Date: 10/06/20 Status: Orderedpregabalin 150 mg oral capsule 1 capsule = 150 mg, By Mouth, 2 times a day, # 180 capsule, 0 Refills, Maintenance, 11/01/21 14:59:00 EST, Capsule, Partial fill upon patient request if the prescription is for a schedule II opioid drug. Start Date: 11/01/21 Status: Orderedsimethicone 80 mg oral tablet, chewable [...] 09/15/21 17:53:00 EST, Route to Pharmacy Electronically, [facility]/pharmacy #[id number], 160, cm, 09/14/21 11:51:00 EST, Height, 75, kg, 09/14/21 11:51:00 EST, Dry... Start Date: 09/15/21 Status: OrderedSkyrizi 150 mg/mL subcutaneous solution = 150 mg, Subcutaneous Infusion, 0 Refills, Maintenance, 11/01/21 15:02:00 EST, Partial fill upon patient request if the prescription is for a schedule II opioid drug. Start Date: 11/01/21 Status: Orderedspironolactone 100 mg oral tablet 1, tablet, By Mouth, Daily, # 90 tablet, Refills 1, Route to Pharmacy Electronically, [id number], 160, cm, 11/27/21 14:08:00 EDT, Height, 74.8, kg, 11/01/21 15:05:00 EST, Dry Weight Start Date: 01/11/22 Status: OrderedtraMADol 50 mg oral tablet See Instructions, TAKE 1-2 TABLETS BY MOUTH EVERY 6 HOURS SCHEDULE FOLLOW VISIT, NEEDED FOR PAIN,# 240 tablet, 5 Refills, Maintenance, 01/17/22 11:33:00 EDT, [facility]/pharmacy #[id number], 160, cm, 11/27/21 14:08:00 EDT, Height, 74.8, kg, 11/01/21 15:05:00 E... Start Date: 01/17/22 Status: OrderedTransfer bench Transfer bench, See Instructions, # 1 each, Refills 0, Tot. Refills 0, Maintenance, use as directed.DX Unsteady gait. ICD 10 R26.81 length of need: Lifetime wt:162lbs ht 5'3, 07/07/20 11:31:00 EST, Supply Start Date: 07/07/20 Status: OrderedTrelegy Ellipta 200 mcg-62.5 mcg-25 mcg/inh inhalation powder 1 puffs, Inhalation, Daily, at the same time every day, 0 Refills, Maintenance, 11/01/21 15:01:00 EST, Powder, Partial fill upon patient request if the prescription is for a schedule II opioid drug. Start Date: 11/01/21 Status: OrderedTrelegy Ellipta inhalation powder 1 puffs, [...] # 9 Unknown, 5 Refills, [facility], 160, cm, 09/07/21 15:03:00 EST, Height, 77.27, [...] EST, Dry Weight Start Date: 09/25/20 Status: Ordered Problem List Condition Effective Dates [...] Active Nephropathy, diabetic(Confirmed) Active Difficulty sleeping(Confirmed) Active Essential tremor(Confirmed) Active Gout(Confirmed) Active History of fracture of Active finger(Confirmed) H/O urinary tract infection with 2009 Active sepsis, proteus(Confirmed) History of nephrolithiasis(Confirmed) Active HLD (hyperlipidemia)(Confirmed) Active Hypertension(Confirmed) Active Lumbosacral spondylosis without Active myelopathy(Confirmed) OA (osteoarthritis), Active cervical(Confirmed) Osteoporosis(Confirmed) Active *FORMERLY [facility] 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 50-70% bilaterally.3Patient's psychometrician is [facility] and patient sees Dr. Gume Mart Social History Social History Type Response Smoking Status Former smoker, quit more mark n 30 days ago entered on: 09/28/21 Sex
--- OUTSIDE RECORDS SUMMARY | 2022-06-09 08:44 | XMS_ITS | Continuity of Care Document ---
:1950 Author Organization [facility] Address [address] [place] [address]- Care Team Providers Name Role Phone Ranjeet Rushing MD Primary Care Physician [facility] Date[facility]s): 11/20/21 - 12/20/21 [facility] [address] [place] [address]- Allergies, Adverse Reactions, Alerts Substance Reaction Severity [...] (PPV23) (oldterm)11 07/19/08 Given 1Result Comment: [05/28/2017] [facility]: [id number] History: [id number] Note: VIS GIVEN-DATED Admin Note: vis [id number] Note: VIS [id number] Note: [id number] History: [facility] [id number] History: [facility] [id number] Comment: [10/17/2015] PER NICO AT [id number] Note: VIS [id number] Note: VIS GIVEN Medications 12 inch Grab [...] tablet, 6 Refills, Maintenance, 01/09/21 16:07:00 EDT, [facility], 160, cm, 12/25/20 14:20:00 EDT, Height, 77.5, kg, 10/05/20 14:31:00 EST, Dry Weight Start Date: 01/09/21 Status: Orderedallopurinol 300 mg oral tablet 1, tablet, By Mouth, Daily, # 90 tablet, Refills 1, Route to Pharmacy Electronically, [facility], 160, cm, 06/19/21 13:57:00 EDT, Height, 77.27, kg, 03/24/21 20:58:00 EDT, Dry Weight Start Date: 07/09/21 Status: OrderedBACK BRACE BACK BRACE, See Instructions, # 1 each, Refills 0, Tot. Refills 0, Maintenance, DX BACK PAIN M54.9 DANTE LIFETIME HT 5'3 WT 182 LB, 07/23/16 14:35:27, Compound Start Date: 07/23/16 Status: OrderedBD UF SHORT PEN NEEDLE [id number] BD UF SHORT PEN NEEDLE [id number], See Instructions, # 200 Unknown, 5 Refills, USE TO INJECT INSULIN TWICE A DAY, 160, cm, 11/27/21 14:08:00 EDT, Height, 74.8, kg, 11/01/21 15:05:00 EST, Dry Weight Start Date: 11/30/21 Status: OrderedbuPROPion 300 mg/24 hours (XL) oral tablet, extended release 1 tablet, By Mouth, Daily, # 30 tablet, 5 Refills, Maintenance, 08/30/21 7:54:00 EST, [facility]/pharmacy #[id number], 160, cm, 07/26/21 10:45:00 EST, Height, [...] 11/17/15 Status: OrderedfluvoxaMINE 50 mg oral tablet 2 tablet = 100 mg, By Mouth, Daily at bedtime, DOSAGE INCREASE, # 60 tablet, 1 Refills, Maintenance,11/13/21 15:13:00 EDT, Tablet, [facility]/pharmacy #[id number], Partial fill upon patient request if the prescription is for a schedule II opioid drug., 160, cm, 0... Start Date: 11/13/21 Status: OrderedFreestyle Lite Lancets See Instructions, # [...] tablet, Refills 1, Route to Pharmacy Electronically, [facility], 160, cm, 10/15/21 15:03:00 EST, Height, 75, kg, 09/14/21 11:51:00 EST, Dry Weight Start Date: 10/16/21 Status: OrderedLyrica 150 mg oral capsule 1 capsule = 150 mg, By Mouth, 2 times a day, DOSAGE INCREASE, # 60 capsule, 3 Refills, Maintenance, 11/12/21 16:27:00 EDT, Capsule, [facility]/pharmacy #[id number], 160, cm, 11/01/21 15:12:00 EST, Height, 74.8, kg,11/01/21 15:05:00 EST, Dry Weight Start Date: 11/12/21 Status: Orderedmagnesium oxide 400 mg (240 mg elemental magnesium) oral tablet 1 tablet, By Mouth, Daily, # 90 tablet, 0 Refills, Acute, 09/20/20 12:20:00 EST, [facility], 90, TAKE 1 TABLET BY MOUTH DAILY, 160, cm, 09/12/20 14:03:00 EST, Height, 71.3, kg, 08/08/20 7:00:00 EST, Dry Weight Start Date: 09/20/20 Status: Orderedmagnesium oxide 400 mg oral tablet 1 tablet = 400 mg, By Mouth, Daily, # 100 tablet, 2 Refills, Maintenance, 06/05/21 11:32:00 EDT, Tablet, [facility]/pharmacy #[id number], Partial fill upon patient request if the prescription is for a schedule II opioid drug., 160, cm, 05/21/21 11:03:00 EDT, Tobiigh... Start Date: 06/05/21 Status: OrderedMelatonin 3 mg oral tablet 1 tablet = 3 mg, By Mouth, Daily at bedtime, PRN for insomnia, [facility], # 90 tablet, 3 Refills, Maintenance, 10/17/21 12:02:00 EST, Tablet, [facility]/pharmacy #[id number], 1 tablet [...] EDT, Injec... Start Date: 06/11/21 Status: OrderedPen [place], 31 G x 5 mm BD Ultra [...] 09/15/21 17:53:00 EST, Route to Pharmacy Electronically, [facility]/pharmacy #[id number], 160, cm, 09/14/21 11:51:00 EST, Height, 75, kg, 09/14/21 11:51:00 EST, Dry... Start Date: 09/15/21 Status: OrderedSkyrizi 150 mg/mL subcutaneous solution = 150 mg, Subcutaneous Infusion, 0 Refills, Maintenance, 11/01/21 15:02:00 EST, Partial fill upon patient request if the prescription is for a schedule II opioid drug. Start Date: 11/01/21 Status: Orderedspironolactone 100 mg oral tablet 100 mg, 1, tablet, By Mouth, Daily, # 90 tablet, Refills 1, Tot. Refills 1, Maintenance, 07/23/21 13:10:00 EST, Route to Pharmacy Electronically, [facility]/pharmacy #[id number], Partial fill upon patient request if the prescription is for a schedule II opioid thomas... Start Date: 07/23/21 Stop Date: 01/19/22 Status: OrderedtraMADol 50 mg oral tablet See Instructions, TAKE 1-2 TABLETS BY MOUTH EVERY 6 HOURS SCHEDULE FOLLOW VISIT, NEEDED FOR PAIN,# 240 tablet, 5 Refills, Maintenance, 05/31/21 9:52:00 EDT, [facility]/pharmacy #[id number], 160, cm, 05/21/21 11:03:00 EDT, [...] # 9 Unknown, 5 Refills, [facility], 160, cm, 09/07/21 15:03:00 EST, Height, 77.27, [...] Hypertension(Confirmed) Active Lumbosacral spondylosis without Active myelopathy(Confirmed) Obese class I(Confirmed) Active OA (osteoarthritis), Active cervical(Confirmed) Osteoporosis(Confirmed) Active *[facility]LY [facility] 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 and patient sees Dr. Gume Mart Social History Social History Type Response Smoking Status Former smoker, quit more mark n 30 days ago entered on: 09/28/21 Sex
--- OUTSIDE RECORDS SUMMARY | 2022-06-09 08:44 | XMS_ITS | Continuity of Care Document ---
:1950 Author Organization [facility] [place] Address [address] [place] [address]- Care Team Providers Name Role Phone Aarti SUTTON, Jose Person Primary Care Physician [facility] 07[facility]20 - 08/16/20 [facility] [place] [address] [place] [address]- Allergies, Adverse Reactions, Alerts Substance Reaction Severity [...] (PPV23) (oldterm)11 07/19/08 Given 1Result Comment: [05/28/2017] [facility]: [id number] History: [id number] Note: VIS GIVEN-DATED Admin Note: vis [id number] Note: VIS [id number] Note: VIS-[id number] History: [facility] [id number] History: [facility] Isaac Comment: [10/17/2015] PER NICO AT [id number] Note: VIS [id number] Note: VIS GIVEN Medications 12 inch Grab [...] 11 Refills, Maintenance, 05/05/20 14:02:00 EDT, Powder, [facility]/pharmacy #[id number], 2 puffs Inhalation Every 6 hours,PRN:as needed, 160.02, cm, 05/05/20 13:43:00 EDT, Height, 73.6, kg, 04/18/20 10:1... Start Date: 05/05/20 Status: Orderedalendronate 70 mg oral tablet 1 tablet, By Mouth, Every week, # 12 tablet, 0 Refills, Maintenance, 06/01/20 9:05:00 EDT, [facility]/pharmacy #0693, 160.02, cm, 05/09/20 12:34:00 EDT, Height, 73.6, kg, 04/18/20 10:19:00 EDT, Dry Weight Start Date: 06/01/20 Status: Orderedallopurinol 300 mg oral tablet 300 mg, 1, tablet, By Mouth, Daily, # 90 tablet, Refills 0, Tot. Refills 0, Maintenance, 07/06/20 15:50:00 EST, Route to Pharmacy Electronically, [facility]/pharmacy #[id number], 160.02, cm, 07/03/20 14:54:00 EST, Height, [...] 07/06/20 15:48:00 EST, Route to Pharmacy Electronically, [facility]/pharmacy #0693, 160.02, cm, 07/03/20 14:54:00 EST,Height, 73.6, [...] 3 Refills, Maintenance, 07/04/20 11:46:00 EST, Capsule, [facility]/pharmacy #0693, 160.02, cm, 07/03/20 14:54:00 EST, Height, 73.6, kg, 04/18/20 10:19:00 EDT, Dry Weight Start Date: 07/04/20 Status: Orderedmagnesium oxide 400 mg oral tablet 1 tablet = 400 mg, By Mouth, Daily, PER RAJNI CARDONA, # 90 tablet, 0 Refills, Maintenance, 06/28/20 12:11:00 EST, [facility]/pharmacy #0693, 160.02, cm, 06/01/20 11:03:00 EDT, Height, 73.6, kg, 04/18/20 10:19:00 EDT, Dry Weight Start Date: 06/28/20 Status: OrderedMelatonin 3 mg oral tablet 1 tablet = 3 mg, By Mouth, Daily at bedtime, PRN for insomnia, [facility], # 90 tablet, 3 Refills, Maintenance, 04/24/20 9:53:00 EDT, Tablet, [facility]/pharmacy #[id number], 1 tablet By Mouth Daily at [...] each, 5 Refills, Maintenance, 02/21/20 11:53:00 EDT, [facility]/pharmacy #[id number], 301-350: 12 units, 351-400: 14 units, 401-450: 1... Start Date: 02/21/20 Status: OrderedoxyCODONE 5 mg oral capsule 1 capsule = 5 mg, By Mouth, Every 6 hours, PRN as needed for pain, 0 Refills, Maintenance, 06/01/20 11:12:00 EDT, Capsule, Partial fill upon patient request Start Date: 06/01/20 Status: OrderedPen [place], 31 G x 5 mm BD Ultra [...] 06/28/20 9:31:00 EST, Route to Pharmacy Electronically, [facility]/pharmacy #[id number], 160.02, cm, 06/01/20 11:03:00 EDT, Height, 73.6, kg, 04/18/20 10:19:00 EDT,... Start Date: 06/28/20 Status: Orderedspironolactone 100 mg oral tablet 1, tablet, By Mouth, Daily, # 30 tablet, Refills 2, Tot. Refills 2, Maintenance, 05/16/20 16:31:00 EDT, Route to Pharmacy Electronically, [facility]/pharmacy #[id number], 160.02, cm, 05/09/20 12:34:00 EDT, Height, 73.6, kg, 04/18/20 10:19:00 EDT, Dry Weight Start Date: 05/16/20 Status: OrderedtraMADol 50 mg oral tablet See Instructions, PRN Pain , Severe, 1-2 tablets by mouth every 6 hours Schedule follow visit, # 240tablet, 1 Refills, Soft Stop, 05/19/20 16:27:00 EDT, [facility]/pharmacy #[id number], 160.02, cm, 05/09/20 12:34:00 EDT, Height, [...] 5 Refills, Soft Stop, 12/16/19 15:45:00 EDT, [facility]/pharmacy #0693, 160.02, cm, 11/02/19 15:34:00 EDT, Height, [...] OA (osteoarthritis), Active cervical(Confirmed) Osteoporosis(Confirmed) Active *FORM[facility]LY [facility] [phone] 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 50-70% bilaterally.3Patient's adjunct english [facility] and patient sees Dr. Gume Mart Social History Social History Type Response Tobacco Other: last cigarette 0. Sex
--- OUTSIDE RECORDS SUMMARY | 2022-06-09 08:44 | XMS_ITS | Continuity of Care Document ---
:1950 Author Organization [facility] Address [address] [place] [address]- Care Team Providers Name Role Phone Ranjeet Rushing MD Primary Care Physician Encounter [facility] Date(s): 01/28/20 - 03/15/20 [facility] [address] [place] [phone]- [facility] Attending Physician: Not on Staff, Attending MD [...] (oldterm)11 07/19/08 Given 1Result Comment: [05/28/2017] [facility]: [id number] History: [id number] Note: VIS GIVEN-DATED Admin Note: vis [id number] Note: VIS [id number] Note: VIS-[id number] History: [facility] [id number] History: [facility] [id number] Comment: [10/17/2015] PER NICO AT [id number] Note: VIS [id number] Note: VIS GIVEN Medications albuterol 90 mcg/inh inhalation powder 2 puffs, Inhalation, Every 6 hours, PRN as needed, # 1 each, 11 Refills, Maintenance, 12/29/18 9:38:36 EDT, Powder, 2 puffs Inhalation Every 6 hours,PRN:as needed Start Date: 12/29/18 Status: Orderedalendronate 70 mg oral tablet 1 tablet = 70 mg, By Mouth, Every week, # 12 tablet, 0 Refills, Maintenance, 12/29/19 9:01:00 EDT, Tablet, [facility]/pharmacy #[id number], 160.02, cm, 11/02/19 15:34:00 EDT, Height, 81.6, kg, 07/27/19 14:52:00 EST, Dry Weight Start Date: 12/29/19 Status: Orderedallopurinol 300 mg oral tablet 1, tablet, By Mouth, Daily, # 90 tablet, Refills 1, Tot. Refills 0, Maintenance, 11/08/19 12:00:00 EDT, Route to Pharmacy Electronically, [facility] STORE [id number], 160.02, cm, 11/02/19 15:34:00 EDT, Height, 81.6, [...] TAKE 1 CAPSULE BY MOUTH EVERY DAY, [facility]/pharmacy #[id number] Start Date: 04/20/19 Status: Orderedcyanocobalamin 500 mcg oral tablet 1 tablet = 500 mcg, By Mouth, Daily, # 90 tablet, 0 Refills, Maintenance, 02/11/20 13:33:00 EDT, Tablet, [facility]/pharmacy #[id number], 160.02, cm, 02/11/20 13:03:00 EDT, [...] 11/08/19 11:59:00 EDT, Route to Pharmacy Electronically, [facility] [id number], 160.02, cm, 11/02/19 15:34:00 EDT, Height, 81.6, kg, 07/27/19 14:52:00 EST, Dry Weight Start Date: 11/08/19 Status: Orderedgabapentin 300 mg oral capsule 300 mg, 1, capsule, By Mouth, 3 times a day, # 90 capsule, Refills 5, Tot. Refills 5, Maintenance, 11/02/19 16:04:00 EDT, Route to Pharmacy Electronically, [facility]/pharmacy #[id number], 160.02, cm, 11/02/19 15:34:00 EDT, Height, 81.6, kg, 07/27/19 14:52:00 EST,... Start Date: 11/02/19 Status: OrderedHumira 40 mg subcutaneous solution Subcutaneous Infusion, Once, 0 Refills, Maintenance, 11/02/19 10:31:00 EDT Start Date: 11/02/19 Stop Date: 11/16/19 Status: Orderedmagnesium oxide 400 mg oral tablet 1 tablet = 400 mg, By Mouth, Daily, PER RAJNI CARDNOA, # 90 tablet, 3 Refills, Maintenance, 07/20/19 16:13:45 EST Start Date: 07/20/19 Status: OrderedMelatonin 3 mg oral tablet 1 tablet = 3 mg, By Mouth, Daily at bedtime, PRN for insomnia, # 30 tablet, 3 Refills, Maintenance, 01/07/20 16:00:00 EDT, Tablet, [facility]/pharmacy #[id number], 1 tablet By Mouth Daily [...] each, 5 Refills, Maintenance, 02/21/20 11:53:00 EDT, [facility]/pharmacy #[id number], 301-350: 12 units, 351-400: 14 units, 401-450: 1... Start Date: 02/21/20 Status: OrderedPen [place], 31 G x 5 mm BD Ultra [...] 07/20/19 16:14:12 EST, Route to Pharmacy Electronically, [id number], [facility]/pharmacy #[id number] Start Date: 07/20/19 Status: Orderedspironolactone 100 mg oral tablet 1, tablet, By Mouth, Daily, # 30 tablet, Refills 5, Tot. Refills 0, Maintenance, 12/07/19 13:00:00 EDT, Route to Pharmacy Electronically, [facility] [id number], 160.02, cm, 11/02/19 15:34:00 EDT, Height, 81.6, kg, 07/27/19 14:52:00 EST, Dry Weight Start Date: 12/07/19 Status: OrderedtraMADol 50 mg oral tablet See Instructions, PRN Pain , Severe, 1-2 tablets by mouth every 6 hours, # 240 tablet, 1 Refills, Soft Stop, 03/14/20 14:29:00 EDT, [facility]/pharmacy #[id number], 160.02, cm, 03/14/20 13:30:00 EDT, Height, [...] 5 Refills, Soft Stop, 12/16/19 15:45:00 EDT, [facility]/pharmacy #[id number], 160.02, cm, 11/02/19 15:34:00 EDT, Height, 81.6, kg, 07/27/19 14:52:00 EST, Dry Weight Start Date: 12/16/19 Status: OrderedVictoza 18 mg/3 mL subcutaneous solution See Instructions, INJECT 1.8 MG SUBCUTANEOUS DAILY, # 9 Unknown, 0 Refills, Maintenance, 03/03/20 15:42:00 EDT, [facility]/pharmacy #[id number], 160.02, cm, 02/11/20 13:03:00 EDT, Height, 81.6, kg, 07/27/19 14:52:00 EST, Dry Weight Start Date: 03/03/20 Status: OrderedVitamin B12 500 mcg oral tablet 1 tablet = 500 mcg, By Mouth, Daily, # 30 tablet, 1 Refills, Maintenance, 02/07/20 8:53:00 EDT, Tablet, [id number], 160.02, cm, 01/07/20 15:07:00 EDT, Height, [...] Refills, Maintenance, 12/09/19 16:12:00 EDT, ER Tablet, [id number], 160.02, cm, 11/02/19 15:34:00 EDT, Height, [...] myelopathy(Confirmed) OA (osteoarthritis), Active cervical(Confirmed) Osteoporosis(Confirmed) Active *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 50-70% bilaterally.3Patient's clinical information systems director is [facility] and patient sees Dr. Gume Mart Social History Social History Type Response Smoking Status Current some day smoker; Typ e: Cigarettes; Other: less than 1/2 pack a day; Tobacco use times per day: 1/2 pack a day; entered on: 02/19/17 Sex
--- OUTSIDE RECORDS SUMMARY | 2022-06-09 08:45 | XMS_ITS | Continuity of Care Document ---
:[address] [facility] Address [address] [place] [address]- Care Team Providers Name Role Phone Kristan SUTTON, Ranjeet Beatty Primary Care Physician Encounter [facility] Date(s): 03/19/21 - 05/02/21 [facility] [address] [place] [address]- Attending Physician: Matilda LOZADA, Chari Santos Referring Physician: Ranjeet Rushing MD Allergies, Adverse Reactions, Alerts Substance Reaction Severity Status Ambien Active Latex Active Lac-Hydrin Active Benadryl Active Immunizations Given and Recorded [...] (oldterm)11 07/19/08 Given 1Result Comment: [05/28/2017] [facility]: [id number] History: [id number] Note: VIS GIVEN-DATED Admin Note: vis [id number] Note: VIS [id number] Note: [id number] History: [facility] [id number] History: [facility] [id number] Comment: [10/17/2015] PER NICO AT [id number] Note: VIS [id number] Note: VIS GIVEN Medications 12 inch Grab [...] 11 Refills, Maintenance, 05/05/20 14:02:00 EDT, Powder, [facility]/pharmacy #[id number], 2 puffs Inhalation Every 6 hours,PRN:as needed, 160.02, cm, 05/05/20 13:43:00 EDT, Height, 73.6, kg, 04/18/20 10:1... Start Date: 05/05/20 Status: Orderedalendronate 70 mg oral tablet 1 tablet, By Mouth, Every week, # 12 tablet, 6 Refills, Maintenance, 01/09/21 16:07:00 EDT, [facility] STORE 17168, 160, cm, 12/25/20 14:20:00 EDT, Height, 77.5, kg, 10/05/20 14:31:00 EST, Dry Weight Start Date: 01/09/21 Status: Orderedallopurinol 300 mg oral tablet 300 mg, 1, tablet, By Mouth, Daily, # 90 tablet, Refills 1, Tot. Refills 1, Maintenance, 01/26/21 12:31:00 EDT, Route to Pharmacy Electronically, [facility]/pharmacy #[id number], 160, cm, 12/25/20 14:20:00 [...] Refills, Maintenance, 03/12/21 10:51:00 EDT, [id number], 160, cm, 02/27/21 13:50:00 EDT, Height, 79.6, [...] 1 Refills, Maintenance, 02/08/21 9:52:00 EDT, Tablet, [facility]/pharmacy #[id number], 160, cm, 01/25/21 14:11:00 [...] 02/06/21 9:05:00 EDT, Route to Pharmacy Electronically, [facility]/pharmacy #[id number], 160, cm, 01/25/21 14:11:00 EDT, Height, 77.5, kg, 10/05/20 14:31:00 EST, Dry Weight Start Date: 02/06/21 Stop Date: 08/05/21 Status: OrderedHumira 40 mg subcutaneous solution See Instructions, 40 mg [id number], 0 Refills, Maintenance, 10/23/20 13:46:00 EST, Partial fill upon patient request if the prescription is for a schedule II opioid drug. Start Date: 10/23/20 Status: OrderedLyrica 150 mg oral capsule 1 capsule = 150 mg, By Mouth, 2 times a day, DOSAGE INCREASE, # 60 capsule, 3 Refills, Maintenance, 01/23/21 14:56:00 EDT, Capsule, [facility]/pharmacy #[id number], 160, cm, 01/14/21 11:46:00 EDT, Height, 77.5, kg,10/05/20 14:31:00 EST, Dry Weight Start Date: 01/23/21 Status: Orderedmagnesium oxide 400 mg (240 mg elemental magnesium) oral tablet 1 tablet, By Mouth, Daily, # 90 tablet, 0 Refills, Acute, 09/20/20 12:20:00 EST, [facility] STORE 64339, 90, TAKE 1 TABLET BY MOUTH DAILY, 160, cm, 09/12/20 14:03:00 EST, Height, 71.3, kg, 08/08/20 7:00:00 EST, Dry Weight Start Date: 09/20/20 Status: OrderedMelatonin 3 mg oral tablet 1 tablet = 3 mg, By Mouth, Daily at bedtime, PRN for insomnia, [facility], # 90 tablet, 3 Refills, Maintenance, 04/24/20 9:53:00 EDT, Tablet, [facility]/pharmacy #[id number], 1 tablet By Mouth Daily at bedtime,PRN:for insomnia,Instr:[email or web address] brand, 160.02, cm, 04/18/20... Start Date: 04/24/20 [...] if th... Start Date: 08/30/20 Status: OrderedPen [place], 31 G x 5 mm BD Ultra Fine III See Instructions, # 200 each, Refills 5, Tot. Refills 5, Maintenance, To inject insulin BID for DM II E11.9 PER CHARI CARDONA, 10/06/20 10:54:00 EST, SHORT, Compound, 160, [...] 01/09/21 15:06:00 EDT, Route to Pharmacy Electronically, [facility]/pharmacy #[id number], 160, cm, 12/25/20 14:20:00 EDT, Height, 77.5, kg, 10/05/20 14:31:00 EST, Dr... Start Date: 01/09/21 Status: Orderedspironolactone 100 mg oral tablet 100 mg, 1, tablet, By Mouth, Daily, # 90 tablet, Refills 0, Tot. 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 50-70% bilaterally.3Patient's personnel and payroll technician is [facility] and patient sees Dr. Gume Mart Social History Social History Type Response Tobacco Other: last cigarette 0. Sex
--- OUTSIDE RECORDS SUMMARY | 2022-06-09 08:45 | XMS_ITS | Continuity of Care Document ---
:1950 Author Organization [facility] Address [address] [place] [address]- Care Team Providers Name Role Phone Ranjeet Del Rosario MD Primary Care Physician Encounter [facility] Date(s): 10/01/19 - 10/11/19 [facility] [address] [address]- [facility] Attending Physician: Evans Brock Admitting Physician: AdmtrEvans Referring Physician: AdmtrEvans Allergies, Adverse Reactions, Alerts Substance Reaction Severity [...] (PPV23) (oldterm)11 07/19/08 Given 1Result Comment: [05/28/2017] [facility]: [id number] History: [id number] Note: VIS GIVEN-DATED Admin Note: vis dfkyv6Livzd Note: VIS jwjfr6Fqlyj Note: VIS-[id number] History: [facility] [id number] History: [facility] Isaac Comment: [10/17/2015] PER NICO AT [id number] Note: VIS [id number] Note: VIS GIVEN Medications albuterol 90 mcg/inh [...] TAKE 1 TABLET BY MOUTH EVERY DAY, [facility]/pharmacy #[id number] Start Date: 06/09/19 Status: OrderedBACK BRACE [...] TAKE 1 CAPSULE BY MOUTH EVERY DAY, [facility]/pharmacy #[id number] Start Date: 04/20/19 Status: Orderedcyanocobalamin 500 [...] each, 0 Refills, Maintenance, 01/01/19 14:36:12 EDT, [place], 2 sprays Nares, Both Daily in AM [...] 1 TABLET BY MOUTH TWICE A DAY, [facility]/pharmacy #[id number] Start Date: 06/02/19 Status: OrderedLyrica 75 mg oral capsule 1 capsule = 75 mg, By Mouth, 2 times a day, # 60 capsule, 5 Refills, Maintenance, 09/29/19 15:33:00 EST, Capsule, [facility]/pharmacy #[id number], 160.02, cm, 09/29/19 14:57:00 EST, Height, 81.6, kg, 07/27/19 14:52:00 EST, Dry Weight Start Date: 09/29/19 Status: Orderedmagnesium oxide 400 mg oral tablet 1 tablet = 400 mg, By Mouth, Daily, PER RAJNI CARDONA, # 90 tablet, 3 Refills, Maintenance, 07/20/19 16:13:45 EST Start Date: 07/20/19 Status: OrderedMelatonin 3 mg Melatonin 3 mg, See Instructions, # 30 capsule, Refills 3, Tot. Refills 3, Maintenance, Additional refills at next office visit, 10/08/19 12:22:00 EST, Compound, 160.02, cm, 09/29/19 14:57:00 EST, Height, 81.6, kg, 07/27/19 14:52:00 EST, Dry Weight Start Date: 10/08/19 Status: Orderedmelatonin 3 mg oral tablet 1 tablet = 3 mg, By Mouth, Daily at bedtime, PRN for insomnia, Additional refills at next office visit, # 30 tablet, 0 Refills, Maintenance, 09/16/19 13:26:00 EST, Tablet, [facility]/pharmacy #[id number], 160.02, cm, 09/06/19 12:51:00 EST, Height, 81.6, kg, ... Start Date: 09/16/19 Status: OrderedMethotrexate 0 Refills, Maintenance, 08/11/18 15:20:54 [...] Call PCP... Start Date: 10/29/17 Status: OrderedPen [place], 31 G x 5 mm BD Ultra [...] 07/20/19 16:14:12 EST, Route to Pharmacy Electronically, [id number], [facility]/pharmacy #[id number] Start Date: 07/20/19 Status: Orderedspironolactone 100 mg oral tablet See Instructions, # 30 tablet, Refills 5 Tot. Refills 5, TAKE 1 TABLET BY MOUTH EVERY DAY, [facility]/pharmacy #[id number] Start Date: 06/23/19 Status: OrderedtraMADol 50 mg oral tablet See Instructions, TAKE 1 TO 2 TABLETS BY MOUTH EVERY 6 HOURS, # 240 tablet, 1 Refills, Soft Stop, 08/23/19 16:39:00 EST, [facility]/pharmacy #[id number], 160.02, cm, 08/16/19 12:59:00 EST, Height, [...] 74 UNITS DAILY, MAX DOSE 140 UNITS, [facility]/pharmacy #[id number] Start Date: 04/20/19 Status: Orderedvarenicline 1mg tablet 1 tablet = 1 mg, By Mouth, 2 times a day, # 60 tablet, 0 Refills, Maintenance, 09/14/19 8:24:00 EST,Tablet, [facility]/pharmacy #0693, 160.02, cm, 09/06/19 12:51:00 EST, Height, 81.6, kg, 07/27/19 14:52:00 EST, Dry Weight Start Date: 09/14/19 Status: OrderedVictoza 18 mg/3 mL subcutaneous solution [...] Active cervical(Confirmed) Osteoporosis(Confirmed) Active *[facility] [phone] 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 50-70% bilaterally.3Patient's director pharmacovigilance is [facility] and patient sees Dr. Gume Mart Social History Social History Type Response Smoking Status Current some day smoker; Typ e: Cigarettes; Other: less than 1/2 pack a day; Tobacco use times per day: 1/2 pack a day; entered on: 02/19/17 Sex
--- OUTSIDE RECORDS SUMMARY | 2022-06-09 08:45 | XMS_ITS | Continuity of Care Document ---
:1950 Author Organization [facility] Address [address] [place] [address]- Care Team Providers Name Role Phone Ranjeet Rushing MD Primary Care Physician Encounter [facility] Date(s): 08/15/20 - 09/14/20 [facility] [address] [place] [address]- Allergies, Adverse Reactions, Alerts Substance Reaction Severity [...] (PPV23) (oldterm)11 07/19/08 Given 1Result Comment: [05/28/2017] [facility]: [id number] History: [id number] Note: VIS GIVEN-DATED Admin Note: vis [id number] Note: VIS sbpqz5Kjdwa Note: VIS-[id number] History: [facility] [id number] History: [facility] DEANGELO Gray Comment: [10/17/2015] PER NICO AT [id number] Note: VIS [id number] Note: VIS GIVEN Medications 12 inch Grab [...] 11 Refills, Maintenance, 05/05/20 14:02:00 EDT, Powder, [facility]/pharmacy #[id number], 2 puffs Inhalation Every 6 hours,PRN:as needed, 160.02, cm, 05/05/20 13:43:00 EDT, Height, 73.6, kg, 04/18/20 10:1... Start Date: 05/05/20 Status: Orderedallopurinol 300 mg oral tablet 300 mg, 1, tablet, By Mouth, Daily, # 90 tablet, Refills 0, Tot. Refills 0, Maintenance, 07/06/20 15:50:00 EST, Route to Pharmacy Electronically, [facility]/pharmacy #[id number], 160.02, cm, 07/03/20 14:54:00 [...] 0 Refills, Maintenance, 02/11/20 13:33:00 EDT, Tablet, [facility]/pharmacy #0693, 160.02, cm, 02/11/20 13:03:00 [...] 07/06/20 15:48:00 EST, Route to Pharmacy Electronically, [facility]/pharmacy #[id number], 160.02, cm, 07/03/20 14:54:00 [...] 3 Refills, Maintenance, 07/04/20 11:46:00 EST, Capsule, [facility]/pharmacy #0693, 160.02, cm, 07/03/20 14:54:00 EST, Height, 73.6, kg, 04/18/20 10:19:00 EDT, Dry Weight Start Date: 07/04/20 Status: Orderedmagnesium oxide 400 mg oral tablet 1 tablet = 400 mg, By Mouth, Daily, PER RAJNI CARDONA, # 90 tablet, 0 Refills, Maintenance, 06/28/20 12:11:00 EST, [id number], 160.02, cm, 06/01/20 11:03:00 EDT, Height, 73.6, kg, 04/18/20 10:19:00 EDT, Dry Weight Start Date: 06/28/20 Status: OrderedMelatonin 3 mg oral tablet 1 tablet = 3 mg, By Mouth, Daily at bedtime, PRN for insomnia, [facility], # 90 tablet, 3 Refills, Maintenance, 04/24/20 9:53:00 EDT, Tablet, [facility]/pharmacy #[id number], 1 tablet By [...] patient request Start Date: 08/30/20 Status: OrderedPen [place], 31 G x 5 mm BD Ultra [...] 06/28/20 9:31:00 EST, Route to Pharmacy Electronically, [facility]/pharmacy #[id number], 160.02, cm, 06/01/20 11:03:00 [...] Refills, Maintenance, 07/03/20 15:20:00 EST, ER Tablet, 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 50-70% bilaterally.3Patient's manufacturing process engineer is [facility] and patient sees Dr. Gume Mart Social History Social History Type Response Tobacco Other: last cigarette 0. Sex
--- OUTSIDE RECORDS SUMMARY | 2022-06-09 08:45 | XMS_ITS | Continuity of Care Document ---
:1950 Author Organization [facility] Adult Address [address] [place] [address]- Care Team Providers Name Role Phone Ranjeet Rushing MD Primary Care Physician Encounter [facility] Date(s): 04/16/22 - 05/16/22 [facility] [address] [place] [address]- Allergies, Adverse Reactions, Alerts Substance Reaction Severity [...] 1Result Comment: [05/28/2017] [facility]: [id number] History: [id number] Note: VIS GIVEN-DATED Admin Note: vis [id number] Note: VIS [id number] Note: VIS-[id number] [place] [facility] [id number] History: [facility] [id number] Comment: [10/17/2015] PER NICO AT [id number] Note: VIS [id number] Note: VIS GIVEN Medications 12 inch Grab [...] needed, # 1 each, 11 Refills, Maintenance, 05/07/22 16:00:00 EDT, Powder, [facility]/pharmacy #[id number], 2 puffs Inhalation Every 6 hours,PRN:as needed, 160, cm, 04/24/22 8:34:00 EDT, Height, 72.7, kg, 04/24/22 8:34:00... Start Date: 05/07/22 Status: Orderedalendronate 70 mg oral tablet 1 tablet, By Mouth, Every week, # 12 tablet, 1 Refills, [facility] STORE [facility]94, 160, cm, 01/17/22 14:38:00 EDT, Height, 74.8, kg, 11/01/21 15:05:00 EST, Dry Weight Start Date: 01/30/22 Status: Orderedallopurinol 300 mg oral tablet 1, tablet, By Mouth, Daily, # 90 tablet, Refills 0, Route to Pharmacy Electronically, [facility], 160, cm, 02/21/22 15:11:00 EDT, Height, 74.8, kg, 11/01/21 15:05:00 EST, Dry Weight Start Date: 03/27/22 Status: OrderedBACK BRACE BACK BRACE, See Instructions, # 1 each, Refills 0, Tot. Refills 0, Maintenance, DX BACK PAIN M54.9 DANTE LIFETIME HT 5'3 WT 182 LB, 07/23/16 14:35:27, Compound Start Date: 07/23/16 Status: OrderedBD UF SHORT PEN NEEDLE 2MGN95S BD UF SHORT PEN NEEDLE 3VZT10T, See Instructions, # 200 Unknown, 5 Refills, USE TO INJECT INSULIN TWICE A DAY, 160, cm, 11/27/21 14:08:00 EDT, Height, 74.8, kg, 11/01/21 15:05:00 EST, Dry Weight Start Date: 11/30/21 Status: OrderedbuPROPion 300 mg/24 hours (XL) oral tablet, extended release 1 tablet, By Mouth, Daily, # 30 tablet, 5 Refills, [facility], 160, cm, 02/04/22 13:44:00 EDT, Height, 74.8, [...] Start Date: 05/11/19 Status: OrderedCVS VITAMIN D3 25 MCG SOFTGEL [facility] VITAMIN D3 25 MCG SOFTGEL, 1, capsule, By Mouth, Daily, # 90 capsule, 1 Refills, 160, cm, 10/16/21 14:42:00 EST, Height, 75, kg, 09/14/21 11:51:00 EST, Dry Weight Start Date: 10/17/21 Status: Orderedcyanocobalamin 500 mcg oral tablet 1 tablet = 500 mcg, By Mouth, Daily, # 90 tablet, 3 Refills, Maintenance, 04/12/22 16:02:00 EDT, Tablet, [facility]/pharmacy #[id number], 160, cm, 04/10/22 14:31:00 EDT, Height, 74.8, kg, 11/01/21 15:05:00 EST, DryWeight Start Date: 04/12/22 Status: OrderedDX: Neck Pain DX: Neck Pain, [...] Status: OrderedfluvoxaMINE 100 mg oral tablet 1 tablet, By Mouth, 2 times a day, # 60 tablet, 1 Refills, Maintenance, 05/06/22 9:31:00 EDT, [facility] STORE 73945, 160, cm, 04/24/22 8:34:00 EDT, Height, 72.7, kg, 04/24/22 8:34:00 EDT, Dry Weight Start Date: 05/06/22 Status: OrderedFree Style ESDRAS 2 SENSORS Free Style ESDRAS 2 SENSORS, See Instructions, # 2 each, Refills 11, Tot. Refills 11, Maintenance, Free Style Esdras 2 SENSORS-90 day supply change every 14 days DM 2 , E11.9, 04/23/22 14:16:00 EDT, Supply, 160, cm, 04/10/22 14:31:00 EDT, Height, 74.8... Start Date: 04/23/22 Status: OrderedFreeStyle Esdras 2 METER FreeStyle Esdras 2 METER, See Instructions, # 1 each, Refills 0, Tot. Refills 0, Maintenance, dm 2 E11.9 FREESTYLE ESDRAS 2 METER, 04/23/22 14:16:00 EDT, Supply, 160, cm, 04/10/22 14:31:00 EDT, Height, 74.8, kg, 11/01/21 15:05:00 EST, Dry Weight Start Date: 04/23/22 Status: OrderedFreestyle Lite Lancets See Instructions, # [...] 1, Route to Pharmacy Electronically, [facility], 160, cm, 02/21/22 15:11:00 EDT, Height, 74.8, kg, 11/01/21 15:05:00 EST, Dry Weight Start Date: 03/12/22 Status: OrderedLidoderm 5% film 1 patch, Topically, [...] INCREASE, # 60 capsule, 3 Refills, Maintenance, 03/26/22 10:58:00 EDT, Capsule, [facility]/pharmacy #[id number], 160, cm, 02/21/22 15:11:00 EDT, Height, 74.8, kg,11/01/21 15:05:00 EST, Dry Weight Start Date: 03/26/22 Status: Orderedmagnesium oxide 400 mg oral tablet 1 tablet, By Mouth, Daily, # 100 tablet, 2 Refills, [facility], 160, cm, 02/21/22 15:11:00 EDT,Height, 74.8, kg, 11/01/21 15:05:00 EST, Dry Weight Start Date: 03/28/22 Status: OrderedMelatonin 3 mg oral tablet 1 tablet = 3 mg, By Mouth, Daily at bedtime, PRN for insomnia, [facility], # 90 tablet, 3 Refills, Maintenance, 10/17/21 12:02:00 EST, Tablet, [facility]/pharmacy #[id number], 1 tablet By Mouth [...] EDT, Injec... Start Date: 06/11/21 Status: OrderedPen [place], 31 G x 5 mm BD Ultra [...] II opioid drug. Start Date: 11/01/21 Status: OrderedRemeron 15 mg oral tablet 1 tablet = 15 mg, By Mouth, Daily at bedtime, # 30 tablet, 0 Refills, Maintenance, 04/24/22 17:19:00EDT, Tablet, [facility]/pharmacy #[id number], Partial fill upon patient request if the prescription is for a schedule II opioid drug., 160, cm, 04/24/22 8:34:00 ED... Start Date: 04/24/22 Status: Orderedsimethicone 80 mg oral tablet, chewable [...] 09/15/21 17:53:00 EST, Route to Pharmacy Electronically, [facility]/pharmacy #[id number], 160, cm, 09/14/21 11:51:00 [...] tablet, Refills 1, Route to Pharmacy Electronically, [facility] ST[facility] 30217, 160, cm, 11/27/21 14:08:00 EDT, Height, 74.8, kg, 11/01/21 15:05:00 EST, Dry Weight Start Date: 01/11/22 Status: OrderedtraMADol 50 mg oral tablet See Instructions, TAKE 1-2 TABLETS BY MOUTH EVERY 6 HOURS SCHEDULE FOLLOW VISIT, NEEDED FOR PAIN,# 240 tablet, 5 Refills, Maintenance, 01/17/22 11:33:00 EDT, [facility]/pharmacy #[id number], 160, cm, 11/27/21 14:08:00 EDT, Height, [...] subcutaneous solution See Instructions, INJECT SUBCUTANEOUSLY TAKING 55 UNITS DAILY, MAX DOSE 140 UNITS, # [...] ONCE DAILY, # 9 Unknown, 5 Refills, Maintenance, 05/07/22 15:49:00 EDT, [facility], 160, cm, 04/24/22 8:34:00 EDT, Height, 72.7, kg, 04/24/22 8:34:00EDT, Dry Weight Start Date: 05/07/22 Status: OrderedVitamin D3 1000 intl units oral [...] kidney disease (CKD), stage Active III (moderate)(Confirmed) COPD (chronic obstructive pulmonary Active disease)(Confirmed) Cigarette smoker(Confirmed) Active Decreased ROM of neck(Confirmed) [...] cervical(Confirmed) Osteoporosis(Confirmed) Active *[facility] [phone] 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 Gume Mart Social History Social History Type Response Smoking Status Former smoker, quit more mark n 30 days ago entered on: 09/28/21 Sex Care Team PersonnelName: Kristan SUTTON, Ranjeet Beatty Address: [address] [place] [address] [place], [place] [address]
--- OUTSIDE RECORDS SUMMARY | 2022-06-09 08:45 | XMS_ITS | Continuity of Care Document ---
:1950 Author Organization [facility] Adult Address [address] [place] [id number]- Care Team Providers Name Role Phone Ranjeet Rushing MD Primary Care Physician Encounter [facility] Date(s): 05/29/20 - 06/28/20 [facility] [address] [place] [id number]- [facility] Allergies, Adverse Reactions, Alerts Substance Reaction Severity [...] (PPV23) (oldterm)11 07/19/08 Given 1Result Comment: [05/28/2017] [facility]: [id number] History: [id number] Note: VIS GIVEN-DATED Admin Note: vis [id number] Note: VIS [id number] Note: VIS-WJKOR3Ukgrpkal History: [facility] [id number] History: [facility] DEANGELO Gray Comment: [10/17/2015] PER NICO AT [id number] Note: VIS [id number] Note: VIS GIVEN Medications albuterol 90 mcg/inh inhalation powder 2 puffs, Inhalation, Every 6 hours, PRN as needed, # 1 each, 11 Refills, Maintenance, 05/05/20 14:02:00 EDT, Powder, [facility]/pharmacy #[id number], 2 puffs Inhalation Every 6 hours,PRN:as needed, 160.02, cm, 05/05/20 13:43:00 EDT, Height, 73.6, kg, 04/18/20 10:1... Start Date: 05/05/20 Status: Orderedalendronate 70 mg oral tablet 1 tablet, By Mouth, Every week, # 12 tablet, 0 Refills, Maintenance, 06/01/20 9:05:00 EDT, [facility]/pharmacy #[id number], 160.02, cm, 05/09/20 12:34:00 EDT, Height, 73.6, kg, 04/18/20 10:19:00 EDT, Dry Weight Start Date: 06/01/20 Status: Orderedallopurinol 300 mg oral tablet 1, tablet, By Mouth, Daily, # 90 tablet, Refills 0, Tot. Refills 0, Maintenance, 04/05/20 9:38:00 EDT, Route to Pharmacy Electronically, [facility]/pharmacy #[id number], 160.02, cm, 03/29/20 10:57:00 EDT, [...] 0 Refills, Maintenance, 06/01/20 12:01:00 EDT, Capsule, [facility]/pharmacy #[id number], 160.02, cm, 06/01/20 11:03:00 EDT, [...] TAKE 1 CAPSULE BY MOUTH EVERY DAY, [facility]/pharmacy #[id number] Start Date: 04/20/19 Status: Orderedcyanocobalamin 500 mcg oral tablet 1 tablet = 500 mcg, By Mouth, Daily, # 90 tablet, 0 Refills, Maintenance, 02/11/20 13:33:00 EDT, Tablet, [facility]/pharmacy #[id number], 160.02, cm, 02/11/20 13:03:00 EDT, [...] 04/07/20 11:50:00 EDT, Route to Pharmacy Electronically, [facility]/pharmacy #[id number], 160.02, cm, 03/29/20 10:57:00 EDT,Height, 81.6, kg, 07/27/19 14:52:00 EST, Dry Weight Start Date: 04/07/20 Status: Orderedgabapentin 300 mg oral capsule 300 mg, 1, capsule, By Mouth, 3 times a day, # 90 capsule, Refills 5, Tot. Refills 5, Maintenance, 04/13/20 12:42:00 EDT, Route to Pharmacy Electronically, [facility]/pharmacy #[id number], 160.02, cm, 03/29/20 10:57:00 EDT, [...] 1 Refills, Maintenance, 05/12/20 14:54:00 EDT, Capsule, [facility]/pharmacy #[id number], 160.02, cm, 05/09/20 12:34:00 EDT, Height, 73.6, kg, 04/18/20 10:19:00 EDT, Dry Weight Start Date: 05/12/20 Status: Orderedmagnesium oxide 400 mg oral tablet 1 tablet = 400 mg, By Mouth, Daily, PER RAJNI CARDONA, # 90 tablet, 0 Refills, Maintenance, 06/28/20 12:11:00 EST, [facility]/pharmacy #[id number], 160.02, cm, 06/01/20 11:03:00 EDT, Height, 73.6, kg, 04/18/20 10:19:00 EDT, Dry Weight Start Date: 06/28/20 Status: OrderedMelatonin 3 mg oral tablet 1 tablet = 3 mg, By Mouth, Daily at bedtime, PRN for insomnia, [facility], # 90 tablet, 3 Refills, Maintenance, 04/24/20 9:53:00 EDT, Tablet, [facility]/pharmacy #[id number], 1 tablet By Mouth Daily [...] 5 Refills, Maintenance, 02/21/20 11:53:00 EDT, [facility]/pharmacy #[id number], 301-350: 12 units, 351-400: 14 units, 401-450: 1... Start Date: 02/21/20 Status: OrderedoxyCODONE 5 mg oral capsule 1 capsule = 5 mg, By Mouth, Every 6 hours, PRN as needed for pain, 0 Refills, Maintenance, 06/01/20 11:12:00 EDT, Capsule, Partial fill upon patient request Start Date: 06/01/20 Status: OrderedPen [place], 31 G x 5 mm BD Ultra [...] 9:31:00 EST, Route to Pharmacy Electronically, [facility]/pharmacy #[id number], 160.02, cm, 06/01/20 11:03:00 EDT, Height, 73.6, kg, 04/18/20 10:19:00 EDT,... Start Date: 06/28/20 Status: Orderedspironolactone 100 mg oral tablet 1, tablet, By Mouth, Daily, # 30 tablet, Refills 2, Tot. Refills 2, Maintenance, 05/16/20 16:31:00 EDT, Route to Pharmacy Electronically, [facility]/pharmacy #[id number], 160.02, cm, 05/09/20 12:34:00 EDT, Height, 73.6, kg, 04/18/20 10:19:00 EDT, Dry Weight Start Date: 05/16/20 Status: OrderedtraMADol 50 mg oral tablet See Instructions, PRN Pain , Severe, 1-2 tablets by mouth every 6 hours Schedule follow visit, # 240tablet, 1 Refills, Soft Stop, 05/19/20 16:27:00 EDT, [facility]/pharmacy #[id number], 160.02, cm, 05/09/20 12:34:00 EDT, [...] Refills, Soft Stop, 12/16/19 15:45:00 EDT, [facility]/pharmacy #[id number], 160.02, cm, 11/02/19 15:34:00 EDT, Height, 81.6, kg, 07/27/19 14:52:00 EST, Dry Weight Start Date: 12/16/19 Status: OrderedVictoza 18 mg/3 mL subcutaneous solution See Instructions, INJECT 1.8 MG UNDER THE SKIN ONCE DAILY, # 9 Unknown, 5 Refills, 06/20/20 15:08:00EDT, [facility]/pharmacy #[id number], 160.02, cm, 06/01/20 11:03:00 EDT, Height, 73.6, kg, 04/18/20 10:19:00 EDT,Dry Weight Start Date: 06/20/20 Status: OrderedVitamin D3 1000 intl units oral capsule 1 capsule = 1,000 International_Units, By Mouth, Daily, # 90 capsule, 3 Refills, Maintenance, 10/20/19 9:16:00 EST, Capsule, [facility]/pharmacy #[id number], resent from 08/14, 160.02, cm, 09/29/19 14:57:00 EST, Height, 81.6, kg, 07/27/19 14:52:00 EST, Dry Weight Start Date: 10/20/19 Status: OrderedWellbutrin XL 150 mg/24 hours oral tablet, extended release 1 tablet = 150 mg, By Mouth, Every 24 hours, do not crush or chew, # 30 tablet, 5 Refills, Maintenance, 06/28/20 9:33:00 EST, ER Tablet, [facility]/pharmacy #[id number], 160.02, cm, 06/01/20 11:03:00 EDT, [...] Osteoporosis(Confirmed) Active *[facility] [phone] 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 Gume Mart Social History Social History Type Response Smoking Status Current some day smoker; Typ e: Cigarettes; Other: less than 1/2 pack a day; Tobacco use times per day: 1/2 pack a day; entered on: 02/19/17 Sex
--- OUTSIDE RECORDS SUMMARY | 2022-06-09 08:45 | XMS_ITS | Continuity of Care Document ---
:1950 Author Organization [facility] Adult Address [address] [place] [address]- Care Team Providers Name Role Phone Ranjeet Rushing MD Primary Care Physician Encounter [facility] Date(s): 02/06/21 - 03/08/21 [facility] [address] [place] [address]- Allergies, Adverse Reactions, Alerts Substance Reaction Severity [...] (PPV23) (oldterm)11 07/19/08 Given 1Result Comment: [05/28/2017] [facility]: [id number] History: [id number] Note: VIS GIVEN-DATED Admin Note: vis [id number] Note: VIS [id number] Note: VIS-[id number] History: [facility] [id number] History: [facility] [id number] Comment: [10/17/2015] PER NICO AT [id number] Note: VIS [id number] Note: VIS GIVEN Medications 12 inch Grab Bars 12 inch Grab Bars, See Instructions, # 2 each, Refills 0, Tot. Refills 0, Maintenance, Grab bars : Length 12inches Use as directed DX Unsteady Gait ICD10 R26.81 HT: 5'3 Weight 162lbs Length of need Lifetime, 07/07/20 11:45:00 EST, Supply Start Date: 07/07/20 Status: OrderedADMIT TO [facility] ADMIT TO [facility], See Instructions, # 1 each, Refills 0, Tot. Refills 0, Maintenance, FAX [phone] ADMIT TO NURSING HOME, PT, OT. MANAGER FIXED INCOME AND OBSTETRICS GYN PHYSICIAN IF NEEDED DIAGNOSIS: Cervical radiculopathy at C6 , DIABETES, ANKLE FRACTURE... Start Date: 10/17/20 Status: Orderedalbuterol 90 mcg/inh inhalation powder 2 puffs, Inhalation, Every 6 hours, PRN as needed, # 1 each, 11 Refills, Maintenance, 05/05/20 14:02:00 EDT, Powder, [facility]/pharmacy #[id number], 2 puffs Inhalation Every 6 hours,PRN:as needed, 160.02, cm, 05/05/20 13:43:00 EDT, Height, 73.6, kg, 04/18/20 10:1... Start Date: 05/05/20 Status: Orderedalendronate 70 mg oral tablet 1 tablet, By Mouth, Every week, # 12 tablet, 6 Refills, Maintenance, 01/09/21 16:07:00 EDT, [facility] STORE [address], 160, cm, 12/25/20 14:20:00 EDT, Height, 77.5, kg, 10/05/20 14:31:00 EST, Dry Weight Start Date: 01/09/21 Status: Orderedallopurinol 300 mg oral tablet 300 mg, 1, tablet, By Mouth, Daily, # 90 tablet, Refills 1, Tot. Refills 1, Maintenance, 01/26/21 12:31:00 EDT, Route to Pharmacy Electronically, [facility]/pharmacy #[id number], 160, cm, 12/25/20 14:20:00 EDT, Height, [...] 03/23/21 16:45:00 EDT, 02/16/21 16:39:00 EDT, Cream, [facility]/pharmacy #[id number], Partial fill upon patientrequest if the [...] 1 Refills, Maintenance, 02/08/21 9:52:00 EDT, Tablet, [facility]/pharmacy #[id number], 160, cm, 01/25/21 14:11:00 EDT, Height, [...] 02/06/21 9:05:00 EDT, Route to Pharmacy Electronically, [facility]/pharmacy #[id number], 160, cm, 01/25/21 14:11:00 EDT, Height, 77.5, kg, 10/05/20 14:31:00 EST, Dry Weight Start Date: 02/06/21 Stop Date: 08/05/21 Status: OrderedHumira 40 mg subcutaneous solution See Instructions, 40 mg [id number], 0 Refills, Maintenance, 10/23/20 13:46:00 EST, Partial fill upon patient request if the prescription is for a schedule II opioid drug. Start Date: 10/23/20 Status: OrderedLyrica 150 mg oral capsule 1 capsule = 150 mg, By Mouth, 2 times a day, DOSAGE INCREASE, # 60 capsule, 3 Refills, Maintenance, 01/23/21 14:56:00 EDT, Capsule, [facility]/pharmacy #[id number], 160, cm, 01/14/21 11:46:00 EDT, Height, 77.5, kg,10/05/20 14:31:00 EST, Dry Weight Start Date: 01/23/21 Status: Orderedmagnesium oxide 400 mg (240 mg elemental magnesium) oral tablet 1 tablet, By Mouth, Daily, # 90 tablet, 0 Refills, Acute, 09/20/20 12:20:00 EST, [facility] STORE [address]18, 90, TAKE 1 TABLET BY MOUTH DAILY, [...] if th... Start Date: 08/30/20 Status: OrderedPen [place], 31 G x 5 mm BD Ultra Fine III See Instructions, # 200 each, Refills 5, Tot. Refills 5, Maintenance, To inject insulin BID for DM II E11.9 PER RAJNI EMERY PRESIDENT PRACTICING UROLOGIST-C, 10/06/20 10:54:00 EST, SHORT, Compound, 160, cm, [...] 01/09/21 15:06:00 EDT, Route to Pharmacy Electronically, [facility]/pharmacy #[id number], 160, cm, 12/25/20 14:20:00 EDT, Height, 77.5, kg, 10/05/20 14:31:00 EST, Start Date: 01/09/21 Status: Orderedspironolactone 100 mg oral tablet 100 mg, 1, tablet, By Mouth, Daily, # 90 tablet, Refills 0, Tot. 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 Gume Mart Social History Social History Type Response Tobacco Other: last cigarette 0. Sex
--- OUTSIDE RECORDS SUMMARY | 2022-06-09 08:45 | XMS_ITS | Continuity of Care Document ---
:1950 Author Organization [facility] [address] [place] [address]- Care Team Providers Name Role Phone Kristan SUTTON, Ranjeet Beatty Primary Care Physician [facility] Date[facility]): 09/14/21 - 09/21/[address] [place], [place] [address] Attending Physician: Nigel Boyd MD Allergies, Adverse Reactions, Alerts Substance Reaction Severity Status Benadryl Active Latex Active Lac-Hydrin Active Ambien Active Immunizations Given and Recorded Vaccine Date [...] (PPV23) (oldterm)11 07/19/08 Given 1Result Comment: [05/28/2017] [facility]: [id number] History: [id number] Note: VIS GIVEN-DATED Admin Note: vis [id number] Note: VIS [id number] Note: VIS-[id number] History: [facility] [id number] History: [facility] [id number] Comment: [10/17/2015] PER NICO AT [id number] Note: VIS [id number] Note: VIS GIVEN Medications 12 inch Grab [...] Maintenance, 05/05/20 14:02:00 EDT, Powder, [facility]/pharmacy #[id number], 2 puffs Inhalation Every 6 hours,PRN:as needed, 160.02, cm, 05/05/20 13:43:00 EDT, Height, 73.6, kg, 04/18/20 10:1... Start Date: 05/05/20 Status: Orderedalendronate 70 mg oral tablet 1 tablet, By Mouth, Every week, # 12 tablet, 6 Refills, Maintenance, 01/09/21 16:07:00 EDT, [facility], 160, cm, 12/25/20 14:20:00 EDT, Height, 77.5, kg, 10/05/20 14:31:00 EST, Dry Weight Start Date: 01/09/21 Status: Orderedallopurinol 300 mg oral tablet 1, tablet, By Mouth, Daily, # 90 tablet, Refills 1, Route to Pharmacy Electronically, [facility], 160, cm, 06/19/21 13:57:00 EDT, Height, 77.27, [...] tablet, 5 Refills, Maintenance, 08/30/21 7:54:00 EST, [facility]/pharmacy #[id number], 160, cm, 07/26/21 10:45:00 EST, Height, [...] 1 Refills, Maintenance, 09/18/21 11:52:00 EST, Tablet, [facility]/pharmacy #[id number], 160, cm, 09/14/21 11:51:00 EST, Height, [...] 02/06/21 9:05:00 EDT, Route to Pharmacy Electronically, [facility]/pharmacy #[id number], 160, cm, 01/25/21 14:11:00 EDT, Height, 77.5, kg, 10/05/20 14:31:00 EST, Dry Weight Start Date: 02/06/21 Stop Date: 08/05/21 Status: OrderedLyrica 150 mg oral capsule 1 capsule = 150 mg, By Mouth, 2 times a day, DOSAGE INCREASE, # 60 capsule, 3 Refills, Maintenance, 07/09/21 14:12:00 EST, Capsule, [facility]/pharmacy #0693, 160, cm, 06/19/21 13:57:00 EDT, Height, 77.27, kg, 03/24/21 20:58:00 EDT, Dry Weight Start Date: 07/09/21 Status: Orderedmagnesium oxide 400 mg (240 mg elemental magnesium) oral tablet 1 tablet, By Mouth, Daily, # 90 tablet, 0 Refills, Acute, 09/20/20 12:20:00 EST, [facility] ST[facility], 90, TAKE 1 TABLET BY MOUTH DAILY, 160, cm, 09/12/20 14:03:00 EST, Height, 71.3, kg, 08/08/20 7:00:00 EST, Dry Weight Start Date: 09/20/20 Status: Orderedmagnesium oxide 400 mg oral tablet 1 tablet = 400 mg, By Mouth, Daily, # 100 tablet, 2 Refills, Maintenance, 06/05/21 11:32:00 EDT, Tablet, [facility]/pharmacy #0693, Partial fill upon patient [...] EDT, Injec... Start Date: 06/11/21 Status: OrderedPen [place], 31 G x 5 mm BD Ultra [...] 09/15/21 17:53:00 EST, Route to Pharmacy Electronically, [facility]/pharmacy #[id number], 160, cm, 09/14/21 11:51:00 EST, Height, 75, kg, 09/14/21 11:51:00 EST, Dry... Start Date: 09/15/21 Status: Orderedspironolactone 100 mg oral tablet 100 mg, 1, tablet, By Mouth, Daily, # 90 tablet, Refills 1, Tot. Refills 1, Maintenance, 07/23/21 13:10:00 EST, Route to Pharmacy Electronically, [facility]/pharmacy #[id number], Partial fill upon patient request if the prescription is for a schedule II opioid thomas... Start Date: 07/23/21 Stop Date: 01/19/22 Status: OrderedtraMADol 50 mg oral tablet See Instructions, TAKE 1-2 TABLETS BY MOUTH EVERY 6 HOURS SCHEDULE FOLLOW VISIT, NEEDED FOR PAIN,# 240 tablet, 5 Refills, Maintenance, 05/31/21 9:52:00 EDT, [id number], 160, cm, 05/21/21 11:03:00 EDT, Height, [...] 3 Refills, Maintenance, 04/19/21 11:35:00 EDT, Powder, [facility]/pharmacy #[id number], Partial fill upon patient [...] # 9 Unknown, 5 Refills, [facility], 160, cm, 09/07/21 15:03:00 EST, Height, 77.27, [...] 09/25/20 Status: OrderedZoloft 100 mg oral tablet 2 tablet = 200 mg, By Mouth, Daily, DOSAGE INCREASE, # 60 tablet, 6 Refills, Maintenance, 07/26/21 11:03:00 EST, [facility]t, [id number], Partial fill upon patient request if the prescription is fora schedule II opioid drug., 160, cm, 07/26/21 10:... 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 50-70% bilaterally.3Patient's ore washer is [facility] and patient sees Dr. Gume Mart Vital Signs Most recent to oldest [Reference Range]: 1 Height 160 cm (09/14/21 11:51 AM) Weight 75 kg (09/14/21 11:51 AM) Body Mass Index [18.5-24.99] 29.3 *H* (09/14/21 11:51 AM) Temperature [96.8-100.4 DegF] 97.8 DegF (09/14/21 11:51 AM) Temperature Route Temporal (09/14/21 11:51 AM) Dry Weight 75 kg (09/14/21 11:51 AM) Social History Social History Type Response Tobacco Other: last cigarette 0. Sex
--- OUTSIDE RECORDS SUMMARY | 2022-06-09 08:45 | XMS_ITS | Continuity of Care Document ---
:1950 Author Organization [facility] Adult Address [address] [place] [address]- Care Team Providers Name Role Phone Ranjeet Rushing MD Primary Care Physician [facility]): 11/19[facility]21 - 12/19/21 [facility] [address] [place] [address]- Allergies, Adverse Reactions, Alerts Substance Reaction Severity Status Ambien Active Latex Active Benadryl Active Lac-Hydrin Active Immunizations Given and Recorded [...] 1Result Comment: [05/28/2017] [facility]: [id number] History: [id number] Note: VIS GIVEN-DATED Admin Note: vis [id number] Note: VIS [id number] Note: VIS-[id number] History: [facility] [id number] History: [facility] [id number] Comment: [10/17/2015] PER NICO AT [id number] Note: VIS [id number] Note: VIS GIVEN Medications 12 inch Grab [...] 11 Refills, Maintenance, 05/05/20 14:02:00 EDT, Powder, [facility]/pharmacy #[id number], 2 puffs Inhalation Every 6 hours,PRN:as needed, 160.02, cm, 05/05/20 13:43:00 EDT, Height, 73.6, kg, 04/18/20 10:1... Start Date: 05/05/20 Status: Orderedalendronate 70 mg oral tablet 1 tablet, By Mouth, Every week, # 12 tablet, 6 Refills, Maintenance, 01/09/21 16:07:00 EDT, [facility], 160, cm, 12/25/20 14:20:00 EDT, Height, 77.5, kg, 10/05/20 14:31:00 EST, Dry Weight Start Date: 01/09/21 Status: Orderedallopurinol 300 mg oral tablet 1, tablet, By Mouth, Daily, # 90 tablet, Refills 1, Route to Pharmacy Electronically, [facility], 160, cm, 06/19/21 13:57:00 EDT, Height, 77.27, kg, 03/24/21 20:58:00 EDT, Dry Weight Start Date: 07/09/21 Status: OrderedBACK BRACE BACK BRACE, See Instructions, # 1 each, Refills 0, Tot. Refills 0, Maintenance, DX BACK PAIN M54.9 DANTE LIFETIME HT 5'3 WT 182 LB, 07/23/16 14:35:27, Compound Start Date: 07/23/16 Status: OrderedBD UF SHORT PEN NEEDLE [id number] BD UF SHORT PEN NEEDLE [id number], See Instructions, # 200 Unknown, 5 Refills, USE TO INJECT INSULIN TWICE A DAY, 160, cm, 11/27/21 14:08:00 EDT, Height, 74.8, kg, 11/01/21 15:05:00 EST, Dry Weight Start Date: 11/30/21 Status: OrderedbuPROPion 300 mg/24 hours (XL) oral tablet, extended release 1 tablet, By Mouth, Daily, # 30 tablet, 5 Refills, Maintenance, 08/30/21 7:54:00 EST, [facility]/pharmacy #[id number], 160, cm, 07/26/21 10:45:00 EST, [...] tablet, 1 Refills, Maintenance,11/13/21 15:13:00 EDT, Tablet, [facility]/pharmacy #[id number], Partial fill upon patient request [...] tablet, Refills 1, Route to Pharmacy Electronically, [facility], 160, cm, 10/15/21 15:03:00 EST, Height, 75, kg, 09/14/21 11:51:00 EST, Dry Weight Start Date: 10/16/21 Status: OrderedLyrica 150 mg oral capsule 1 capsule = 150 mg, By Mouth, 2 times a day, DOSAGE INCREASE, # 60 capsule, 3 Refills, Maintenance, 11/12/21 16:27:00 EDT, Capsule, [facility]/pharmacy #[id number], 160, cm, 11/01/21 15:12:00 EST, Height, 74.8, kg,11/01/21 15:05:00 EST, Dry Weight Start Date: 11/12/21 Status: Orderedmagnesium oxide 400 mg (240 mg elemental magnesium) oral tablet 1 tablet, By Mouth, Daily, # 90 tablet, 0 Refills, Acute, 09/20/20 12:20:00 EST, [facility], 90, TAKE 1 TABLET BY MOUTH DAILY, 160, cm, 09/12/20 14:03:00 EST, Height, 71.3, kg, 08/08/20 7:00:00 EST, Dry Weight Start Date: 09/20/20 Status: Orderedmagnesium oxide 400 mg oral tablet 1 tablet = 400 mg, By Mouth, Daily, # 100 tablet, 2 Refills, Maintenance, 06/05/21 11:32:00 EDT, Tablet, [facility]/pharmacy #[id number], Partial fill upon patient request if the prescription is for a schedule II opioid drug., 160, cm, 05/21/21 11:03:00 EDT, [place]... Start Date: 06/05/21 Status: OrderedMelatonin 3 mg oral tablet 1 tablet = 3 mg, By Mouth, Daily at bedtime, PRN for insomnia, [facility], # 90 tablet, 3 Refills, Maintenance, 10/17/21 12:02:00 EST, Tablet, [facility]/pharmacy #[id number], 1 tablet By Mouth Daily [...] EDT, Injec... Start Date: 06/11/21 Status: OrderedPen [place], 31 G x 5 mm BD Ultra [...] 09/15/21 17:53:00 EST, Route to Pharmacy Electronically, [facility]/pharmacy #[id number], 160, cm, 09/14/21 11:51:00 EST, [...] 07/23/21 13:10:00 EST, Route to Pharmacy Electronically, [facility]/pharmacy #[id number], Partial fill upon patient request if the prescription is for a schedule II opioid thomas... 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 Gume Mart Social History Social History Type Response Smoking Status Former smoker, quit more mark n 30 days ago entered on: 09/28/21 Sex
--- OUTSIDE RECORDS SUMMARY | 2022-06-09 08:45 | XMS_ITS | Continuity of Care Document ---
:1950 Author Organization [facility] Adult Address [address] [place] [address]- Care Team Providers Name Role Phone Kristan SUTTON, Ranjeet Beatty Primary Care Physician [facility]): 10[facility]04[facility]20 - 11/03/20 [facility] [address] [place] [address]- Allergies, Adverse Reactions, Alerts Substance Reaction Severity [...] (PPV23) (oldterm)11 07/19/08 Given 1Result Comment: [05/28/2017] [facility]: [id number] History: [id number] Note: VIS GIVEN-DATED Admin Note: vis [id number] Note: VIS [id number] Note: VIS-OZLCK6Gmdalcuv History: [facility] [id number] History: [facility] DEANGELO Gray Comment: [10/17/2015] PER NICO AT [id number] Note: VIS [id number] Note: VIS GIVEN Medications 12 inch Grab Bars 12 inch Grab Bars, See Instructions, # 2 each, Refills 0, Tot. Refills 0, Maintenance, Grab bars : Length 12inches Use as directed DX Unsteady Gait ICD10 R26.81 HT: 5'3 Weight 162lbs Length of need Lifetime, 07/07/20 11:45:00 EST, Supply Start Date: 07/07/20 Status: [facility] AD[facility] TO [facility], See Instructions, # 1 each, Refills 0, Tot. Refills 0, Maintenance, FAX [phone] [facility], PT, OT. 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 Refills 0, Maintenance, 10/28/20 12:31:00 EST, Route to Pharmacy Electronically, [facility]/pharmacy #[id number], 160, cm, 10/20/20 15:01:00 EST, Height, [...] 1 Refills, Maintenance, 09/28/20 11:53:00 EST, Tablet, [facility]/pharmacy #0693, 160, cm, 09/12/20 14:03:00 EST, [...] 07/06/20 15:48:00 EST, Route to Pharmacy Electronically, [facility]/pharmacy #[id number], 160.02, cm, 07/03/20 14:54:00 EST,Height, 73.6, kg, 04/18/20 10:19:00 EDT, Dry Weight Start Date: 07/06/20 Stop Date: 10/04/20 Status: OrderedHumira 40 mg subcutaneous solution See Instructions, 40 mg [id number], 0 Refills, Maintenance, 10/23/20 13:46:00 EST, Partial fill upon patient request if the prescription is for a schedule II opioid drug. Start Date: 10/23/20 Status: OrderedLyrica 150 mg oral capsule 1 capsule = 150 mg, By Mouth, 2 times a day, DOSAGE INCREASE, # 60 capsule, 3 Refills, Maintenance, 07/04/20 11:46:00 EST, Capsule, [facility]/pharmacy #[id number], 160.02, cm, 07/03/20 14:54:00 EST, Height, 73.6, kg, 04/18/20 10:19:00 EDT, Dry Weight Start Date: 07/04/20 Status: Orderedmagnesium oxide 400 mg (240 mg elemental magnesium) oral tablet 1 tablet, By Mouth, Daily, # 90 tablet, 0 Refills, Acute, 09/20/20 12:20:00 EST, [facility] ST[facility], 90, TAKE 1 TABLET BY MOUTH DAILY, 160, cm, 09/12/20 14:03:00 EST, Height, 71.3, kg, 08/08/20 7:00:00 EST, Dry Weight Start Date: 09/20/20 Status: OrderedMelatonin 3 mg oral tablet 1 tablet = 3 mg, By Mouth, Daily at bedtime, PRN for insomnia, [facility], # 90 tablet, 3 Refills, Maintenance, 04/24/20 9:53:00 EDT, Tablet, [facility]/pharmacy #[id number], 1 tablet By Mouth Daily at bedtime,PRN:for insomnia,Instr:[employer] brand, 160.02, cm, 04/18/20... Start Date: 04/24/20 [...] if th... Start Date: 08/30/20 Status: OrderedPen [place], 31 G x 5 mm BD Ultra [...] 06/28/20 9:31:00 EST, Route to Pharmacy Electronically, [facility]/pharmacy #[id number], 160.02, cm, 06/01/20 11:03:00 EDT, [...] # 9 Unknown, 5 Refills, 06/20/20 15:08:00EDT, [facility]/pharmacy #[id number], 160.02, cm, 06/01/20 11:03:00 EDT, [...] Refills, Maintenance, 07/03/20 15:20:00 EST, ER Tablet, [facility]/pharmacy #[id number], 160.02, cm, 07/03/20 14:54:00 EST, Height, 73.6, kg, 04/18/20 10:19:00 EDT, Dry Weight Start Date: 07/03/20 Status: OrderedZoloft 50 mg oral tablet 1 tablet = 50 mg, By Mouth, Daily, DOSAGE INCREASE, # 30 tablet, 0 Refills, Maintenance, 10/30/20 17:12:00 EST, Tablet, [facility]/pharmacy #[id number], Partial fill [...] Active cervical(Confirmed) Osteoporosis(Confirmed) Active *[facility] [phone] 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 50-70% bilaterally.3[facility] cannone[facility] Dr. Gume Mart Social History Social History Type Response Tobacco Other: last cigarette 0. Sex
--- OUTSIDE RECORDS SUMMARY | 2022-06-09 08:45 | XMS_ITS | Continuity of Care Document ---
:1950 Author Organization [facility] Adult Address [address] [place] [address]- Care Team Providers Name Role Phone Ranjeet Rushing MD Primary Care Physician [facility]): 04[facility]20 - 05/05/20 [facility] [address] [place] [address]- [facility] Allergies, Adverse Reactions, Alerts Substance Reaction Severity Status Latex Active Benadryl Active Lac-Hydrin Active Ambien Active Immunizations Given [...] 1Result Comment: [05/28/2017] [facility]: [id number] History: [id number] Note: VIS GIVEN-DATED Admin Note: vis [id number] Note: VIS [id number] Note: VIS-EKXTM7Izoyipnt History: [facility] [id number] History: [facility] [id number] Comment: [10/17/2015] PER NICO AT [id number] Note: VIS [id number] Note: VIS GIVEN Medications albuterol 90 mcg/inh inhalation powder 2 puffs, Inhalation, Every 6 hours, PRN as needed, # 1 each, 11 Refills, Maintenance, 05/05/20 14:02:00 EDT, Powder, [facility]/pharmacy #[id number], 2 puffs Inhalation Every 6 hours,PRN:as needed, 160.02, cm, 05/05/20 13:43:00 EDT, Height, 73.6, kg, 04/18/20 10:1... Start Date: 05/05/20 Status: Orderedalendronate 70 mg oral tablet 1 tablet, By Mouth, Every week, # 12 tablet, 0 Refills, Maintenance, 03/17/20 11:27:00 EDT, [facility] STORE 89234, 160.02, cm, 03/14/20 13:30:00 EDT, Height, 81.6, kg, 07/27/19 14:52:00 EST, Dry Weight Start Date: 03/17/20 Status: Orderedallopurinol 300 mg oral tablet 1, tablet, By Mouth, Daily, # 90 tablet, Refills 0, Tot. Refills 0, Maintenance, 04/05/20 9:38:00 EDT, Route to Pharmacy Electronically, [facility]/pharmacy #[id number], 160.02, cm, 03/29/20 10:57:00 EDT, Height, [...] CAPSULE BY MOUTH EVERY DAY, [facility]/pharmacy #[id number] Start Date: 04/20/19 Status: Orderedcyanocobalamin 500 mcg oral tablet 1 tablet = 500 mcg, By Mouth, Daily, # 90 tablet, 0 Refills, Maintenance, 02/11/20 13:33:00 EDT, Tablet, [facility]/pharmacy #0693, 160.02, cm, 02/11/20 13:03:00 EDT, [...] EDT, Route to Pharmacy Electronically, [facility]/pharmacy #0693, 160.02, cm, 03/29/20 10:57:00 EDT,Height, 81.6, kg, 07/27/19 14:52:00 EST, Dry Weight Start Date: 04/07/20 Status: Orderedgabapentin 300 mg oral capsule 300 mg, 1, capsule, By Mouth, 3 times a day, # 90 capsule, Refills 5, Tot. Refills 5, Maintenance, 04/13/20 12:42:00 EDT, Route to Pharmacy Electronically, [facility]/pharmacy #[id number], 160.02, cm, 03/29/20 10:57:00 EDT, Height, [...] Maintenance, 04/24/20 9:53:00 EDT, Tablet, [facility]/pharmacy #0693, 1 tablet By Mouth [...] Refills, Maintenance, 02/21/20 11:53:00 EDT, [facility]/pharmacy #0629, 301-350: 12 units, 351-400: 14 units, 401-450: 1... Start Date: 02/21/20 Status: OrderedPen [place], 31 G x 5 mm BD Ultra [...] 07/20/19 16:14:12 EST, Route to Pharmacy Electronically, [id number], [facility]/pharmacy #[id number] Start Date: 07/20/19 Status: Orderedspironolactone 100 mg oral tablet 1, tablet, By Mouth, Daily, # 30 tablet, Refills 5, Tot. Refills 0, Maintenance, 12/07/19 13:00:00 EDT, Route to Pharmacy Electronically, [facility] STORE 7[facility]29, 160.02, cm, 11/02/19 15:34:00 EDT, Height, 81.6, kg, 07/27/19 14:52:00 EST, Dry Weight Start Date: 12/07/19 Status: OrderedtraMADol 50 mg oral tablet See Instructions, PRN Pain , Severe, 1-2 tablets by mouth every 6 hours, # 240 tablet, 1 Refills, Soft Stop, 03/14/20 14:29:00 EDT, [facility]/pharmacy #[id number], 160.02, cm, 03/14/20 13:30:00 EDT, [...] Soft Stop, 12/16/19 15:45:00 EDT, [facility]/pharmacy #[id number], 160.02, cm, 11/02/19 15:34:00 EDT, Height, 81.6, kg, 07/27/19 14:52:00 EST, Dry Weight Start Date: 12/16/19 Status: OrderedVictoza 18 mg/3 mL subcutaneous solution See Instructions, INJECT 1.8 MG SUBCUTANEOUS DAILY, # 9 Unknown, 0 Refills, Maintenance, 04/30/20 11:15:00 EDT, [facility]/pharmacy #[id number], 160.02, cm, 04/18/20 10:19:00 EDT, Height, 73.6, kg, 04/18/20 10:19:00 EDT, Dry Weight Start Date: 04/30/20 Status: OrderedVitamin D3 1000 intl units oral capsule 1 capsule = 1,000 International_Units, By Mouth, Daily, # 90 capsule, 3 Refills, Maintenance, 10/20/19 9:16:00 EST, Capsule, [facility]/pharmacy #[id number], resent from 08/14, 160.02, cm, 09/29/19 14:57:00 EST, Height, 81.6, kg, 07/27/19 14:52:00 EST, Dry Weight Start Date: 10/20/19 Status: OrderedWellbutrin XL 150 mg/24 hours oral tablet, extended release 1 tablet = 150 mg, By Mouth, Every 24 hours, do not crush or chew, # 30 tablet, 6 Refills, Maintenance, 12/09/19 16:12:00 EDT, ER Tablet, [facility]/pharmacy #[id number], 160.02, cm, 11/02/19 15:34:00 EDT, [...] myelopathy(Confirmed) OA (osteoarthritis), Active cervical(Confirmed) Osteoporosis(Confirmed) Active *[facility] [phone] 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 Gume Mart Social History Social History Type Response Smoking Status Current some day smoker; Typ e: Cigarettes; Other: less than 1/2 pack a day; Tobacco use times per day: 1/2 pack a day; entered on: 02/19/17 Sex
--- OUTSIDE RECORDS SUMMARY | 2022-06-09 08:45 | XMS_ITS | Continuity of Care Document ---
:1950 Author Organization [facility] Address [address] [place] [address]- Care Team Providers Name Role Phone Kristan SUTTON, Ranjeet Beatty Primary Care Physician [facility]20 - 12/14/20 [facility] [address] [place] [address]- Allergies, Adverse Reactions, Alerts Substance Reaction Severity [...] (PPV23) (oldterm)11 07/19/08 Given 1Result Comment: [05/28/2017] [facility]: [id number] History: [id number] Note: VIS GIVEN-DATED Admin Note: vis [id number] Note: VIS [id number] Note: VIS-[id number] History: [facility] [id number] History: [facility] DEANGELO Gray Comment: [10/17/2015] PER NICO AT [id number] Note: VIS [id number] Note: VIS GIVEN Medications 12 inch Grab Bars 12 inch Grab Bars, See Instructions, # 2 each, Refills 0, Tot. Refills 0, Maintenance, Grab bars : Length 12inches Use as directed DX Unsteady Gait ICD10 R26.81 HT: 5'3 Weight 162lbs Length of need Lifetime, 07/07/20 11:45:00 EST, Supply Start Date: 07/07/20 Status: [facility] AD[facility] TO [facility], See Instructions, # 1 each, Refills 0, Tot. Refills 0, Maintenance, FAX [phone] ADMIT TO ASSISTED, PT, OT. 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 Start Date: 10/17/20 Status: Orderedalbuterol 90 mcg/inh inhalation powder 2 puffs, Inhalation, Every 6 hours, PRN as needed, # 1 each, 11 Refills, Maintenance, 05/05/20 14:02:00 EDT, Powder, [facility]/pharmacy #[id number], 2 puffs Inhalation Every 6 hours,PRN:as needed, 160.02, cm, 05/05/20 13:43:00 EDT, Height, 73.6, kg, 04/18/20 10:1... Start Date: 05/05/20 Status: Orderedalendronate 70 mg oral tablet 1 tablet, By Mouth, Every week, # 12 tablet, 0 Refills, Maintenance, 10/30/20 7:29:00 EST, [facility] [id number], 160, cm, 10/20/20 15:01:00 EST, Height, 77.5, kg, 10/05/20 14:31:00 EST, Dry Weight Start Date: 10/30/20 Status: Orderedallopurinol 300 mg oral tablet 300 mg, 1, tablet, By Mouth, Daily, # 90 tablet, Refills 0, Tot. Refills 0, Maintenance, 10/28/20 12:31:00 EST, Route to Pharmacy Electronically, [facility]/pharmacy #[id number], 160, cm, 10/20/20 15:01:00 EST, Height, [...] 1 Refills, Maintenance, 09/28/20 11:53:00 EST, Tablet, [facility]/pharmacy #[id number], 160, cm, 09/12/20 14:03:00 EST, Height, [...] 07/06/20 15:48:00 EST, Route to Pharmacy Electronically, [facility]/pharmacy #[id number], 160.02, cm, 07/03/20 14:54:00 EST,Height, 73.6, kg, 04/18/20 10:19:00 EDT, Dry Weight Start Date: 07/06/20 Stop Date: 10/04/20 Status: OrderedHumira 40 mg subcutaneous solution See Instructions, 40 mg [id number], 0 Refills, Maintenance, 10/23/20 13:46:00 EST, Partial fill upon patient request if the prescription is for a schedule II opioid drug. Start Date: 10/23/20 Status: OrderedLyrica 150 mg oral capsule 1 capsule = 150 mg, By Mouth, 2 times a day, DOSAGE INCREASE, # 60 capsule, 3 Refills, Maintenance, 07/04/20 11:46:00 EST, Capsule, [facility]/pharmacy #[id number], 160.02, cm, 07/03/20 14:54:00 EST, Height, 73.6, kg, 04/18/20 10:19:00 EDT, Dry Weight Start Date: 07/04/20 Status: Orderedmagnesium oxide 400 mg (240 mg elemental magnesium) oral tablet 1 tablet, By Mouth, Daily, # 90 tablet, 0 Refills, Acute, 09/20/20 12:20:00 EST, [id number], 90, TAKE 1 TABLET BY MOUTH DAILY, 160, cm, 09/12/20 14:03:00 EST, Height, 71.3, kg, 08/08/20 7:00:00 EST, Dry Weight Start Date: 09/20/20 Status: OrderedMelatonin 3 mg oral tablet 1 tablet = 3 mg, By Mouth, Daily at bedtime, PRN for insomnia, [facility] brand, # 90 tablet, 3 Refills, Maintenance, 04/24/20 9:53:00 EDT, Tablet, [facility]/pharmacy #[id number], 1 tablet By Mouth Daily at bedtime,PRN:for insomnia,Instr:[facility] brand, 160.02, cm, 04/18/20... Start Date: 04/24/20 [...] if th... Start Date: 08/30/20 Status: OrderedPen [place], 31 G x 5 mm BD Ultra [...] 06/28/20 9:31:00 EST, Route to Pharmacy Electronically, [facility]/pharmacy #[id number], 160.02, cm, 06/01/20 11:03:00 EDT, Height, 73.6, kg, 04/18/20 10:19:00 EDT,... Start Date: 06/28/20 Status: Orderedspironolactone 100 mg oral tablet 100 mg, 1, tablet, By Mouth, Daily, # 90 tablet, Refills 0, Tot. Refills 0, Maintenance, 11/29/20 7:42:00 EDT, Route to Pharmacy Electronically, [facility]/pharmacy #[id number], Partial fill upon patient request ifthe prescription is for a schedule II opioid drug... Start Date: 11/29/20 Stop Date: 02/27/21 Status: OrderedTransfer bench Transfer bench, See Instructions, [...] Refills, Maintenance, 07/03/20 15:20:00 EST, ER Tablet, [facility]/pharmacy #[id number], 160.02, cm, 07/03/20 14:54:00 EST, Height, 73.6, kg, 04/18/20 10:19:00 EDT, Dry Weight Start Date: 07/03/20 Status: OrderedZoloft 50 mg oral tablet 1 tablet = 50 mg, By Mouth, Daily, DOSAGE INCREASE, # 30 tablet, 0 Refills, Maintenance, 10/30/20 17:12:00 EST, Tablet, [facility]/pharmacy #[id number], Partial fill upon patient request if [...] (osteoarthritis), Active cervical(Confirmed) Osteoporosis(Confirmed) Active *[facility] [phone] 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 Gume Mart Social History Social History Type Response Tobacco Other: last cigarette 0. Sex
--- OUTSIDE RECORDS SUMMARY | 2022-06-09 08:45 | XMS_ITS | Continuity of Care Document ---
:1950 Author Organization [facility] Address [address] [place] [address]- Care Team Providers Name Role Phone Ranjeet Rushing MD Primary Care Physician [facility] Date[facility]): 05/26/20 - 06/25/20 [facility] [address] [place] [address]- [facility] Allergies, Adverse Reactions, Alerts Substance Reaction [...] (oldterm)11 07/19/08 Given 1Result Comment: [05/28/2017] [facility]: [id number] History: [id number] Note: VIS GIVEN-DATED Admin Note: vis [id number] Note: VIS [id number] Note: [id number] History: [facility] [place] [id number] History: [facility] DEANGELO Gray Comment: [10/17/2015] PER NICO AT [id number] Note: VIS [id number] Note: VIS GIVEN Medications albuterol 90 mcg/inh inhalation powder 2 puffs, Inhalation, Every 6 hours, PRN as needed, # 1 each, 11 Refills, Maintenance, 05/05/20 14:02:00 EDT, Powder, [facility]/pharmacy #[id number], 2 puffs Inhalation Every 6 hours,PRN:as needed, 160.02, cm, 05/05/20 13:43:00 EDT, Height, 73.6, kg, 04/18/20 10:1... Start Date: 05/05/20 Status: Orderedalendronate 70 mg oral tablet 1 tablet, By Mouth, Every week, # 12 tablet, 0 Refills, Maintenance, 06/01/20 9:05:00 EDT, [facility]/pharmacy #[id number], 160.02, cm, 05/09/20 12:34:00 EDT, Height, 73.6, kg, 04/18/20 10:19:00 EDT, Dry Weight Start Date: 06/01/20 Status: Orderedallopurinol 300 mg oral tablet 1, tablet, By Mouth, Daily, # 90 tablet, Refills 0, Tot. Refills 0, Maintenance, 04/05/20 9:38:00 EDT, [id number] 160.02, cm, 03/29/20 10:57:00 EDT, Height, [...] 0 Refills, Maintenance, 06/01/20 12:01:00 EDT, Capsule, [facility]/pharmacy #[id number], 160.02, cm, 06/01/20 11:03:00 [...] TAKE 1 CAPSULE BY MOUTH EVERY DAY, [facility]/pharmacy #[id number] Start Date: 04/20/19 Status: Orderedcyanocobalamin 500 mcg oral tablet 1 tablet = 500 mcg, By Mouth, Daily, # 90 tablet, 0 Refills, Maintenance, 02/11/20 13:33:00 EDT, Tablet, [facility]/pharmacy #[id number], 160.02, cm, 02/11/20 13:03:00 EDT, [...] 04/07/20 11:50:00 EDT, Route to Pharmacy Electronically, [facility]/pharmacy #[id number], 160.02, cm, 03/29/20 10:57:00 EDT,Height, 81.6, kg, 07/27/19 14:52:00 EST, Dry Weight Start Date: 04/07/20 Status: Orderedgabapentin 300 mg oral capsule 300 mg, 1, capsule, By Mouth, 3 times a day, # 90 capsule, Refills 5, Tot. Refills 5, Maintenance, 04/13/20 12:42:00 EDT, Route to Pharmacy Electronically, [facility]/pharmacy #[id number], 160.02, cm, 03/29/20 10:57:00 EDT, [...] 1 Refills, Maintenance, 05/12/20 14:54:00 EDT, Capsule, [facility]/pharmacy #0693, 160.02, cm, 05/09/20 12:34:00 EDT, [...] 3 Refills, Maintenance, 04/24/20 9:53:00 EDT, Tablet, [facility]/pharmacy #[id number], 1 tablet By Mouth [...] each, 5 Refills, Maintenance, 02/21/20 11:53:00 EDT, [facility]/pharmacy #[id number], 301-350: 12 units, 351-400: 14 units, 401-450: 1... Start Date: 02/21/20 Status: OrderedoxyCODONE 5 mg oral capsule 1 capsule = 5 mg, By Mouth, Every 6 hours, PRN as needed for pain, 0 Refills, Maintenance, 06/01/20 11:12:00 EDT, Capsule, Partial fill upon patient request Start Date: 06/01/20 Status: OrderedPen [place], 31 G x 5 mm BD Ultra [...] 07/20/19 16:14:12 EST, Route to Pharmacy Electronically, [id number], [facility]/pharmacy #[id number] Start Date: 07/20/19 Status: Orderedspironolactone 100 mg oral tablet 1, tablet, By Mouth, Daily, # 30 tablet, Refills 2, Tot. Refills 2, Maintenance, 05/16/20 16:31:00 EDT, Route to Pharmacy Electronically, [facility]/pharmacy #[id number], 160.02, cm, 05/09/20 12:34:00 EDT, Height, 73.6, kg, 04/18/20 10:19:00 EDT, Dry Weight Start Date: 05/16/20 Status: OrderedtraMADol 50 mg oral tablet See Instructions, PRN Pain , Severe, 1-2 tablets by mouth every 6 hours Schedule follow visit, # 240tablet, 1 Refills, Soft Stop, 05/19/20 16:27:00 EDT, [id number], 160.02, cm, 05/09/20 12:34:00 EDT, Height, [...] 5 Refills, Soft Stop, 12/16/19 15:45:00 EDT, [id number], 160.02, cm, 11/02/19 15:34:00 EDT, [...] Refills, Maintenance, 12/09/19 16:12:00 EDT, ER Tablet, [facility]/pharmacy #[id number], 160.02, cm, 11/02/19 15:34:00 EDT, [...] Active *[facility] [phone] 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 50-70% bilaterally.3Patient's hair or beauty salon assistant is [facility] and patient sees Dr. Gume Mart Social History Social History Type Response Smoking Status Current some day smoker; Typ e: Cigarettes; Other: less than 1/2 pack a day; Tobacco use times per day: 1/2 pack a day; entered on: 02/19/17 Sex
--- OUTSIDE RECORDS SUMMARY | 2022-06-09 08:45 | XMS_ITS | Continuity of Care Document ---
:1950 Author Organization [facility] Address [address] [place] [address]- Care Team Providers Name Role Phone Ranjeet Rushing MD Primary Care Physician [facility] Date[facility]s): 01/18/22 - 02/17/22 [facility] [address] [address] Allergies, Adverse Reactions, Alerts Substance Reaction [...] (PPV23) (oldterm)11 07/19/08 Given 1Result Comment: [05/28/2017] [facility]: [id number] History: [id number] Note: VIS GIVEN-DATED Admin Note: vis [id number] Note: VIS [id number] Note: VIS-[id number] History: [facility] [id number] History: [facility] [id number] Comment: [10/17/2015] PER NICO AT [id number] Note: VIS [id number] Note: VIS GIVEN Medications 12 inch Grab [...] 11 Refills, Maintenance, 05/05/20 14:02:00 EDT, Powder, [facility]/pharmacy #[id number], 2 puffs Inhalation Every 6 hours,PRN:as needed, 160.02, cm, 05/05/20 13:43:00 EDT, Height, 73.6, kg, 04/18/20 10:1... Start Date: 05/05/20 Status: Orderedalendronate 70 mg oral tablet 1 tablet, By Mouth, Every week, # 12 tablet, 1 Refills, [facility], 160, cm, 01/17/22 14:38:00 EDT, Height, 74.8, kg, 11/01/21 15:05:00 EST, Dry Weight Start Date: 01/30/22 Status: Orderedallopurinol 300 mg oral tablet 1, tablet, By Mouth, Daily, # 90 tablet, Refills 0, Route to Pharmacy Electronically, [facility], 160, cm, 11/27/21 14:08:00 EDT, Height, 74.8, kg, 11/01/21 15:05:00 EST, Dry Weight Start Date: 12/30/21 Status: OrderedBACK BRACE BACK BRACE, See Instructions, # 1 each, Refills 0, Tot. Refills 0, Maintenance, DX BACK PAIN M54.9 DANTE LIFETIME HT 5'3 WT 182 LB, 07/23/16 14:35:27, Compound Start Date: 07/23/16 Status: OrderedBD UF SHORT PEN NEEDLE [id number] BD UF SHORT PEN NEEDLE 2CHQ92M, See Instructions, # 200 Unknown, 5 Refills, USE TO INJECT INSULIN TWICE A DAY, 160, cm, 11/27/21 14:08:00 EDT, Height, 74.8, kg, 11/01/21 15:05:00 EST, Dry Weight Start Date: 11/30/21 Status: OrderedbuPROPion 300 mg/24 hours (XL) oral tablet, extended release 1 tablet, By Mouth, Daily, # 30 tablet, 5 Refills, [facility], 160, cm, 02/04/22 13:44:00 EDT, Height, 74.8, [...] 11/17/15 Status: OrderedfluvoxaMINE 50 mg oral tablet See Instructions, 1 tab po in AM and 2 tablet By Mouth Daily at bedtime, # 90 tablet, 1 Refills, 01/17/22 15:05:00 EDT, [facility]/pharmacy #[id number], 160, cm, 01/17/22 14:38:00 EDT, Height, 74.8, kg, 11/01/21 15:05:00 EST, Dry Weight Start Date: 01/17/22 Status: OrderedFreestyle Lite Lancets See Instructions, # [...] tablet, Refills 1, Route to Pharmacy Electronically, [facility], 160, cm, 10/15/21 15:03:00 EST, Height, 75, kg, 09/14/21 11:51:00 EST, Dry Weight Start Date: 10/16/21 Status: OrderedLidoderm 5% film 1 patch, Topically, Daily, # 30 patch, 11 Refills, Maintenance, 12/28/21 15:03:00 EDT, [facility]/pharmacy #[id number], Partial fill upon patient request if the prescription is for a schedule II opioid drug., 1 patch Topically Daily,x30 days, 160, cm, 11/27/21 14:... Start Date: 12/28/21 Stop Date: 12/23/22 Status: OrderedLyrica 150 mg oral capsule 1 capsule = 150 mg, By Mouth, 2 times a day, DOSAGE INCREASE, # 60 capsule, 3 Refills, Maintenance, 11/12/21 16:27:00 EDT, Capsule, [facility]/pharmacy #[id number], 160, cm, 11/01/21 15:12:00 EST, Height, 74.8, kg,11/01/21 15:05:00 EST, Dry Weight Start Date: 11/12/21 Status: Orderedmagnesium oxide 400 mg (240 mg elemental magnesium) oral tablet 1 tablet, By Mouth, Daily, # 90 tablet, 0 Refills, Acute, 09/20/20 12:20:00 EST, [facility], 90, TAKE 1 TABLET BY MOUTH DAILY, 160, cm, 09/12/20 14:03:00 EST, Height, 71.3, kg, 08/08/20 7:00:00 EST, Dry Weight Start Date: 09/20/20 Status: Orderedmagnesium oxide 400 mg oral tablet 1 tablet = 400 mg, By Mouth, Daily, # 100 tablet, 2 Refills, Maintenance, 06/05/21 11:32:00 EDT, Tablet, [facility]/pharmacy #0693, Partial fill upon patient request if the prescription is for a schedule II opioid drug., 160, cm, 05/21/21 11:03:00 EDT, Heigh... Start Date: 06/05/21 Status: OrderedMelatonin 3 mg oral tablet 1 tablet = 3 mg, By Mouth, Daily at bedtime, PRN for insomnia, [facility], # 90 tablet, 3 Refills, Maintenance, 10/17/21 12:02:00 EST, Tablet, [facility]/pharmacy #[id number], 1 tablet By [...] 12/09/19 16:05:00 EDT Start Date: 12/09/19 Status: Orderedmupirocin 2% topical ointment 1 application, Topically, 2 times a day, for 14 days, apply to affected skin, # 30 Gm, 0 Refills, Acute 02/18/22 14:10:00 EDT, 02/04/22 14:10:00 EDT, Ointment, [facility]/pharmacy #[id number], Partial fill upon patient request if the prescription is for a schedule... Start Date: 02/04/22 Stop Date: 02/18/22 Status: OrderedNovoLOG FlexPen 100 units/mL subcutaneous solution See Instructions, Subcutaneous injection TID before meals per sliding scale: 150-200: 6 units 201-250: 8 units 251-300: 10 units 301-350: 12 units 351-400: 14 units before breakfast, # 30 mL, 6 Refills, Maintenance, 06/11/21 16:40:00 EDT, Injec... Start Date: 06/11/21 Status: OrderedPen [place], 31 G x 5 mm BD Ultra [...] 09/15/21 17:53:00 EST, Route to Pharmacy Electronically, [facility]/pharmacy #[id number], 160, cm, 09/14/21 11:51:00 EST, [...] tablet, Refills 1, Route to Pharmacy Electronically, [facility], 160, cm, 11/27/21 14:08:00 EDT, Height, 74.8, kg, 11/01/21 15:05:00 EST, Dry Weight Start Date: 01/11/22 Status: OrderedtraMADol 50 mg oral tablet See Instructions, TAKE 1-2 TABLETS BY MOUTH EVERY 6 HOURS SCHEDULE FOLLOW VISIT, NEEDED FOR PAIN,# 240 tablet, 5 Refills, Maintenance, 01/17/22 11:33:00 EDT, [facility]/pharmacy #[id number], 160, cm, 11/27/21 14:08:00 EDT, [...] # 9 Unknown, 5 Refills, [facility], 160, cm, 09/07/21 15:03:00 EST, Height, 77.27, [...] Active OA (osteoarthritis), Active cervical(Confirmed) Osteoporosis(Confirmed) Active *[facility] [phone] 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 50-70% bilaterally.3Patient's blending technician is [facility] and patient sees Dr. Gume Mart Social History Social History Type Response Smoking Status Former smoker, quit more mark n 30 days ago entered on: 09/28/21 Sex
--- OUTSIDE RECORDS SUMMARY | 2022-06-09 08:46 | XMS_ITS | Continuity of Care Document ---
:1950 Author Organization [facility] Address [address] [place] [address]- Care Team Providers Name Role Phone Ranjeet Rushing MD Primary Care Physician [facility] 03[facility]20 - 04/29/20 [facility] [address] [place] [address]- [facility] Allergies, Adverse Reactions, Alerts Substance Reaction Severity [...] (oldterm)11 07/19/08 Given 1Result Comment: [05/28/2017] [facility]: [id number] History: [id number] Note: VIS GIVEN-DATED Admin Note: vis [id number] Note: VIS [id number] Note: VIS-[id number] History: [facility] PD3Pubadcjc History: [facility] [id number] Comment: [10/17/2015] PER NICO AT [id number] Note: VIS [id number] Note: VIS GIVEN Medications albuterol 90 mcg/inh inhalation powder 2 puffs, Inhalation, Every 6 hours, PRN as needed, # 1 each, 11 Refills, Maintenance, 12/29/18 9:38:36 EDT, Powder, 2 puffs Inhalation Every 6 hours,PRN:as needed Start Date: 12/29/18 Status: Orderedalendronate 70 mg oral tablet 1 tablet, By Mouth, Every week, # 12 tablet, 0 Refills, Maintenance, 03/17/20 11:27:00 EDT, [facility] ST[facility] [address], 160.02, cm, 03/14/20 13:30:00 EDT, Height, 81.6, kg, 07/27/19 14:52:00 EST, Dry Weight Start Date: 03/17/20 Status: Orderedallopurinol 300 mg oral tablet 1, tablet, By Mouth, Daily, # 90 tablet, Refills 0, Tot. Refills 0, Maintenance, 04/05/20 9:38:00 EDT, Route to Pharmacy Electronically, [facility]/pharmacy #0693, 160.02, cm, 03/29/20 10:57:00 EDT, [...] TAKE 1 CAPSULE BY MOUTH EVERY DAY, [facility]/pharmacy #0693 Start Date: 04/20/19 Status: Orderedcyanocobalamin 500 mcg oral tablet 1 tablet = 500 mcg, By Mouth, Daily, # 90 tablet, 0 Refills, Maintenance, 02/11/20 13:33:00 EDT, Tablet, [facility]/pharmacy #0693, 160.02, cm, 02/11/20 13:03:00 EDT, [...] 04/07/20 11:50:00 EDT, Route to Pharmacy Electronically, [facility]/pharmacy #0693, 160.02, cm, 03/29/20 10:57:00 EDT,Height, 81.6, kg, 07/27/19 14:52:00 EST, Dry Weight Start Date: 04/07/20 Status: Orderedgabapentin 300 mg oral capsule 300 mg, 1, capsule, By Mouth, 3 times a day, # 90 capsule, Refills 5, Tot. Refills 5, Maintenance, 04/13/20 12:42:00 EDT, Route to Pharmacy Electronically, [facility]/pharmacy #0693, 160.02, cm, 03/29/20 10:57:00 EDT, [...] Mouth, Daily at bedtime, PRN for insomnia, [facility] brand, # 90 tablet, 3 Refills, Maintenance, 04/24/20 9:53:00 EDT, Tablet, [facility]/pharmacy #0693, 1 tablet By Mouth Daily [...] each, 5 Refills, Maintenance, 02/21/20 11:53:00 EDT, [facility]/pharmacy #0693, 301-350: 12 units, 351-400: 14 units, 401-450: 1... Start Date: 02/21/20 Status: OrderedPen [place], 31 G x 5 mm BD Ultra [...] 07/20/19 16:14:12 EST, Route to Pharmacy Electronically, [id number], [facility]/pharmacy #[id number] Start Date: 07/20/19 Status: Orderedspironolactone 100 mg oral tablet 1, tablet, By Mouth, Daily, # 30 tablet, Refills 5, Tot. Refills 0, Maintenance, 12/07/19 13:00:00 EDT, Route to Pharmacy Electronically, [facility] 30[facility], 160.02, cm, 11/02/19 15:34:00 EDT, Height, 81.6, kg, 07/27/19 14:52:00 EST, Dry Weight Start Date: 12/07/19 Status: OrderedtraMADol 50 mg oral tablet See Instructions, PRN Pain , Severe, 1-2 tablets by mouth every 6 hours, # 240 tablet, 1 Refills, Soft Stop, 03/14/20 14:29:00 EDT, [facility]/pharmacy #0693, 160.02, cm, 03/14/20 13:30:00 EDT, [...] 5 Refills, Soft Stop, 12/16/19 15:45:00 EDT, [facility]/pharmacy #0693, 160.02, cm, 11/02/19 15:34:00 EDT, Height, 81.6, kg, 07/27/19 14:52:00 EST, Dry Weight Start Date: 12/16/19 Status: OrderedVictoza 18 mg/3 mL subcutaneous solution See Instructions, INJECT 1.8 MG SUBCUTANEOUS DAILY, # 9 Unknown, 0 Refills, Maintenance, 03/03/20 15:42:00 EDT, [facility]/pharmacy #0693, 160.02, cm, 02/11/20 13:03:00 EDT, Height, 81.6, kg, 07/27/19 14:52:00 EST, Dry Weight Start Date: 03/03/20 Status: OrderedVitamin D3 1000 intl units oral [...] Active *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 Gume Mart Social History Social History Type Response Smoking Status Current some day smoker; Typ e: Cigarettes; Other: less than 1/2 pack a day; Tobacco use times per day: 1/2 pack a day; entered on: 02/19/17 Sex
--- OUTSIDE RECORDS SUMMARY | 2022-06-09 08:46 | XMS_ITS | Continuity of Care Document ---
:1950 Author Organization [facility] [address] [place] [address]- Care Team Providers Name Role Phone Ranjeet Del Rosario MD Primary Care Physician [facility]counter [facility] Date(s): 11/19/19 - 11/29/19 [facility] [address] [place] [address] Drive [address] [place] [address]- [facility] Attending Physician: Evans Brock Admitting Physician: AdmtrEvans Referring Physician: Admtr, Ar8 Allergies, Adverse Reactions, [...] (PPV23) (oldterm)11 07/19/08 Given 1Result Comment: [05/28/2017] [facility]: [id number] History: [id number] Note: VIS GIVEN-DATED Admin Note: vis [id number] Note: VIS slcqq7Rfcqb Note: VIS-IHPEL3Vpkzbhrp History: [facility] [id number] History: [facility] DEANGELO Gray Comment: [10/17/2015] PER NICO AT [id number] Note: VIS [id number] Note: VIS GIVEN Medications albuterol 90 mcg/inh [...] 12/10/18 Status: Orderedallopurinol 300 mg oral tablet 1, tablet, By Mouth, Daily, # 90 tablet, Refills 1, Tot. Refills 0, Maintenance, 11/08/19 12:00:00 EDT, Route to Pharmacy Electronically, [facility] STORE 48974, 160.02, cm, 11/02/19 15:34:00 EDT, Height, 81.6, [...] 01/31/16 14:20:21 Start Date: 01/31/16 Status: OrderedChantix Continuing Month 1 mg oral tablet 1 tablet, By Mouth, 2 times a day, # 56 tablet, 0 Refills, Acute, 11/08/19 12:00:00 EDT, [facility], 160.02, cm, 11/02/19 15:34:00 EDT, Height, 81.6, kg, 07/27/19 14:52:00 EST, Dry Weight Start Date: 11/08/19 Status: OrderedCompression Stockings See Instructions, # 1 [...] 11:48:21 EDT, Tablet Start Date: 12/25/18 Status: Orderedcyclobenzaprine 10 mg oral tablet 10 mg, 1, tablet, By Mouth, 3 times a day, Refills 0, Maintenance, 11/02/19 10:34:00 EDT Start Date: 11/02/19 Status: OrderedDepends Under Pants Depends Under Pants, [...] each, 0 Refills, Maintenance, 01/01/19 14:36:12 EDT, [place], 2 sprays Nares, Both Daily in AM [...] 11/08/19 11:59:00 EDT, Route to Pharmacy Electronically, [facility] 96174, 160.02, cm, 11/02/19 15:34:00 EDT, Height, 81.6, [...] bedtime, PRN for insomnia, # 30 tablet, 1 Refills, Maintenance, 10/15/19 9:53:00 EST, Tablet, [facility]/pharmacy #[id number], 160.02, cm, 09/29/19 14:57:00 EST, Height, 81.6, kg, 07/27/19 14:52:00 EST, Dry Weight Start Date: 10/15/19 Status: Orderednicotine 2 mg oral transmucosal lozenge [...] Call PCP... Start Date: 10/29/17 Status: OrderedPen [place], 31 G x 5 mm BD Ultra Fine III See Instructions, # 200 each, Refills 5, Tot. Refills 5, Maintenance, To inject insulin BID for DM II E11.9 PER RAJNI EMERY NP-C, 12/28/18 12:38:05 EDT, SHORT, Compound Start Date: 12/28/18 Status: OrderedPredniSONE See Instructions, 2 tab by x 3 days & then 1 tab po x 3 days then 0.5 tab x 2 days then stop, 0 Refills, Maintenance, 11/02/19 10:36:00 EDT Start Date: 11/02/19 Status: Orderedsimvastatin 10 mg oral tablet 10 mg, 1, tablet, By Mouth, Daily at bedtime, # 90 tablet, Refills 3, Tot. Refills 3, Maintenance, 07/20/19 16:14:12 EST, Route to Pharmacy Electronically, [id number], [facility]/pharmacy #[id number] Start Date: 07/20/19 Status: Orderedspironolactone 100 mg oral tablet See Instructions, # 30 tablet, Refills 5 Tot. Refills 5, TAKE 1 TABLET BY MOUTH EVERY DAY, [id number] Start Date: 06/23/19 Status: OrderedtraMADol 50 mg oral tablet See Instructions, PRN Pain , Severe, 1-2 tablets by mouth every 6 hours, # 240 tablet, 1 Refills, Soft Stop, 11/04/19 6:40:00 EDT, [facility], 160.02, cm, 11/02/19 15:34:00 EDT, Height, 81.6, kg, 07/27/19 14:52:00 EST, Dry Weight Start Date: 11/04/19 Status: OrderedTrelegy Ellipta inhalation powder 1 puffs, Inhalation, Daily, at the same time every day, # 60 each, 0 Refills, Maintenance, 12/30/18 14:27:13 EDT, Powder Start Date: 12/30/18 Status: OrderedTresiba FlexTouch 200 units/mL subcutaneous solution See Instructions, # 9 Unknown, Refills 5 Tot. 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 50-70% bilaterally.3Patient's rug inspector helper is [facility] and patient sees Dr. Gume Mart Social History Social History Type Response Smoking Status Current some day smoker; Typ e: Cigarettes; Other: less than 1/2 pack a day; Tobacco use times per day: 1/2 pack a day; entered on: 02/19/17 Sex
--- OUTSIDE RECORDS SUMMARY | 2022-06-09 08:46 | XMS_ITS | Continuity of Care Document ---
:1950 Author Organization [facility] Adult Address [address] [place] [address]- Care Team Providers Name Role Phone Ranjeet Rushing MD Primary Care Physician Encounter [facility] Date(s): 03/26/22 - 04/25/22 [facility] [address] [place] [address]- Allergies, Adverse Reactions, Alerts Substance Reaction Severity [...] 07/19/08 Given 1Result Comment: [05/28/2017] [facility]: [id number] History: [id number] Note: VIS GIVEN-DATED Admin Note: vis [id number] Note: VIS [id number] Note: VIS-PHYAB3Btwnaqbj History: [facility] [id number] History: [facility] [id number] Comment: [10/17/2015] PER NICO AT [id number] Note: VIS [id number] Note: VIS GIVEN Medications 12 inch Grab [...] Every week, # 12 tablet, 1 Refills, [facility] STORE 58098, 160, cm, 01/17/22 14:38:00 EDT, Height, 74.8, kg, 11/01/21 15:05:00 EST, Dry Weight Start Date: 01/30/22 Status: Orderedallopurinol 300 mg oral tablet 1, tablet, By Mouth, Daily, # 90 tablet, Refills 0, Route to Pharmacy Electronically, [facility], 160, cm, 02/21/22 15:11:00 EDT, Height, 74.8, kg, 11/01/21 15:05:00 EST, Dry Weight Start Date: 03/27/22 Status: OrderedBACK BRACE BACK BRACE, See Instructions, # 1 each, Refills 0, Tot. Refills 0, Maintenance, DX BACK PAIN M54.9 DANTE LIFETIME HT 5'3 WT 182 LB, 07/23/16 14:35:27, Compound Start Date: 07/23/16 Status: OrderedBD UF SHORT PEN NEEDLE [id number] BD UF SHORT PEN NEEDLE [id number], See Instructions, # 200 Unknown, 5 Refills, USE TO INJECT INSULIN TWICE A DAY, 160, cm, 11/27/21 14:08:00 EDT, Height, 74.8, kg, 11/01/21 15:05:00 EST, Dry Weight Start Date: 11/30/21 Status: OrderedbuPROPion 300 mg/24 hours (XL) oral tablet, extended release 1 tablet, By Mouth, Daily, # 30 tablet, 5 Refills, [facility], 160, cm, 02/04/22 13:44:00 EDT, Height, 74.8, kg, 11/01/21 15:05:00 EST, Dry Weight Start Date: 02/12/22 Status: Orderedciprofloxacin 250 mg oral tablet 1 tablet = 250 mg, By Mouth, Every 12 hours, for 3 days, # 6 tablet, 0 Refills, Acute 04/27/22 17:28:00 EDT, 04/24/22 17:28:00 EDT, Tablet, [facility]/pharmacy #[id number], Partial fill upon patient request if the prescription is for a schedule II opioid drug., 16... Start Date: 04/24/22 Stop Date: 04/27/22 Status: OrderedCompression Stockings See Instructions, # 1 [...] 3 Refills, Maintenance, 04/12/22 16:02:00 EDT, Tablet, [facility]/pharmacy #[id number], 160, cm, 04/10/22 14:31:00 [...] 1 Refills, Maintenance, 02/21/22 16:12:00 EDT, Tablet, [facility]/pharmacy #[id number], Partial fill upon patient request if the prescription is for a schedule II opioid drug., 160, cm, 3... Start Date: 02/21/22 Status: OrderedFree Style ESDRAS 2 SENSORS Free [...] tablet, Refills 1, Route to Pharmacy Electronically, [facility] STORE 75921, 160, cm, 02/21/22 15:11:00 EDT, Height, 74.8, kg, 11/01/21 15:05:00 EST, Dry Weight Start Date: 03/12/22 Status: OrderedLidoderm 5% film 1 patch, Topically, Daily, # 30 patch, 11 Refills, Maintenance, 12/28/21 15:03:00 EDT, [facility]/pharmacy #0693, Partial fill upon patient request if the prescription is for a schedule II opioid drug., 1 patch Topically Daily,x30 days, 160, cm, 11/27/21 14:... Start Date: 12/28/21 Stop Date: 12/23/22 Status: OrderedLyrica 150 mg oral capsule 1 capsule = 150 mg, By Mouth, 2 times a day, DOSAGE INCREASE, # 60 capsule, 3 Refills, Maintenance, 03/26/22 10:58:00 EDT, Capsule, [facility]/pharmacy #[id number], 160, cm, 02/21/22 15:11:00 EDT, Height, 74.8, kg,11/01/21 15:05:00 EST, Dry Weight Start Date: 03/26/22 Status: Orderedmagnesium oxide 400 mg oral tablet 1 tablet, By Mouth, Daily, # 100 tablet, 2 Refills, [facility], 160, cm, 02/21/22 15:11:00 EDT,Height, 74.8, kg, 11/01/21 15:05:00 EST, Dry Weight Start Date: 03/28/22 Status: OrderedMelatonin 3 mg oral tablet 1 tablet = 3 mg, By Mouth, Daily at bedtime, PRN for insomnia, [facility], # 90 tablet, 3 Refills, Maintenance, 10/17/21 12:02:00 EST, Tablet, [facility]/pharmacy #[id number], 1 tablet [...] 12/09/19 16:05:00 EDT Start Date: 12/09/19 Status: OrderedNicoderm C-Q Clear 14 mg/24 hr transdermal film, extended release 1 patch, Topically, Daily, # 30 patch, 0 Refills, Acute 04/29/22 0:00:00 EDT, 04/08/22 10:39:00 EDT,Patch, [facility]/pharmacy #[id number], Partial fill upon patient request if the prescription is for a schedule II opioid drug., 160, cm, 04/08/22 10:12:00 EDT, He... Start Date: 04/08/22 Stop Date: 04/29/22 Status: OrderedNovoLOG FlexPen 100 units/mL subcutaneous solution See Instructions, Subcutaneous injection TID before meals per sliding scale: 150-200: 6 units 201-250: 8 units 251-300: 10 units 301-350: 12 units 351-400: 14 units before breakfast, # 30 mL, 6 Refills, Maintenance, 06/11/21 16:40:00 EDT, Injec... Start Date: 06/11/21 Status: OrderedPen [place], 31 G x 5 mm BD Ultra [...] tablet, 0 Refills, Maintenance, 04/24/22 17:19:00EDT, Tablet, [facility]/pharmacy #[id number], Partial fill upon patient [...] 09/15/21 17:53:00 EST, Route to Pharmacy Electronically, [facility]/pharmacy #[id number], 160, cm, 09/14/21 11:51:00 [...] tablet, Refills 1, Route to Pharmacy Electronically, [facility] STORE 65384, 160, cm, 11/27/21 14:08:00 EDT, Height, 74.8, kg, 11/01/21 15:05:00 EST, Dry Weight Start Date: 01/11/22 Status: OrderedtraMADol 50 mg oral tablet See Instructions, TAKE 1-2 TABLETS BY MOUTH EVERY 6 HOURS SCHEDULE FOLLOW VISIT, NEEDED FOR PAIN,# 240 tablet, 5 Refills, Maintenance, 01/17/22 11:33:00 EDT, [facility]/pharmacy #[id number], 160, cm, 11/27/21 14:08:00 [...] 3 Refills, Maintenance, 04/19/21 11:35:00 EDT, Powder, [facility]/pharmacy #0693, Partial fill upon patient [...] # 9 Unknown, 5 Refills, [facility], 160, cm, 09/07/21 15:03:00 EST, Height, 77.27, [...] (osteoarthritis), Active cervical(Confirmed) Osteoporosis(Confirmed) Active *[facility] [phone] 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 50-70% bilaterally.3Patient's clinical rehabilitation coordinator is [facility] and patient sees Dr. Gume Mart Social History Social History Type Response Smoking Status Former smoker, quit more mark n 30 days ago entered on: 09/28/21 Sex Care Team PersonnelName: Ranjeet Rushing MD Address: [address] [place] [address] Adult [place] [address]-
--- OUTSIDE RECORDS SUMMARY | 2022-06-09 08:46 | XMS_ITS | Continuity of Care Document ---
:1950 Author Organization [facility] Adult Address [address] [place] [address]- Care Team Providers Name Role Phone Kristan SUTTON, Ranjeet Beatty Primary Care Physician [place] [facility]20 - 06/08/20 [facility] [address] [place] [id number]- [facility] Encounter Diagnosis Wrist pain, right (Discharge Diagnosis) - 06/01/20 Unsteady gait (Discharge Diagnosis) - 06/01/20 Falls (Discharge Diagnosis) - 06/01/20 Attending Physician: Matilda LOZADA, Chari Santos Allergies, [...] Comment: [05/28/2017] [facility]: [id number] History: [id number] Note: VIS GIVEN-DATED Admin Note: vis [id number] Note: VIS iwjlq5Dgfrc Note: VIS-UXFHT6Avkxvgpm [place] [facility] [place] [id number] History: [facility] [id number] Comment: [10/17/2015] PER NICO AT [id number] Note: VIS [id number] Note: VIS GIVEN Medications albuterol 90 mcg/inh inhalation powder 2 puffs, Inhalation, Every 6 hours, PRN as needed, # 1 each, 11 Refills, Maintenance, 05/05/20 14:02:00 EDT, Powder, [facility]/pharmacy #0693, 2 puffs Inhalation Every 6 hours,PRN:as needed, 160.02, cm, 05/05/20 13:43:00 EDT, Height, 73.6, kg, 04/18/20 10:1... Start Date: 05/05/20 Status: Orderedalendronate 70 mg oral tablet 1 tablet, By Mouth, Every week, # 12 tablet, 0 Refills, Maintenance, 06/01/20 9:05:00 EDT, [facility]/pharmacy #0693, 160.02, cm, 05/09/20 12:34:00 EDT, Height, 73.6, kg, 04/18/20 10:19:00 EDT, Dry Weight Start Date: 06/01/20 Status: Orderedallopurinol 300 mg oral tablet 1, tablet, By Mouth, Daily, # 90 tablet, Refills 0, Tot. Refills 0, Maintenance, 04/05/20 9:38:00 EDT, Route to Pharmacy Electronically, [facility]/pharmacy #0693, 160.02, cm, 03/29/20 10:57:00 EDT, Height, [...] 0 Refills, Maintenance, 06/01/20 12:01:00 EDT, Capsule, [facility]/pharmacy #0693, 160.02, cm, 06/01/20 11:03:00 EDT, Height, [...] 04/07/20 11:50:00 EDT, Route to Pharmacy Electronically, [facility]/pharmacy #0693, 160.02, cm, 03/29/20 10:57:00 EDT,Height, 81.6, kg, 07/27/19 14:52:00 EST, Dry Weight Start Date: 04/07/20 Status: Orderedgabapentin 300 mg oral capsule 300 mg, 1, capsule, By Mouth, 3 times a day, # 90 capsule, Refills 5, Tot. Refills 5, Maintenance, 04/13/20 12:42:00 EDT, Route to Pharmacy Electronically, [facility]/pharmacy #0693, 160.02, cm, 03/29/20 10:57:00 EDT, Height, [...] 1 Refills, Maintenance, 05/12/20 14:54:00 EDT, Capsule, [facility]/pharmacy #0693, 160.02, cm, 05/09/20 12:34:00 EDT, Height, [...] 3 Refills, Maintenance, 04/24/20 9:53:00 EDT, Tablet, [facility]/pharmacy #0693, 1 tablet By Mouth Daily at [...] 5 Refills, Maintenance, 02/21/20 11:53:00 EDT, [facility], 301-350: 12 units, 351-400: 14 units, 401-450: 1... Start Date: 02/21/20 Status: OrderedoxyCODONE 5 mg oral capsule 1 capsule = 5 mg, By Mouth, Every 6 hours, PRN as needed for pain, 0 Refills, Maintenance, 06/01/20 11:12:00 EDT, Capsule, Partial fill upon patient request Start Date: 06/01/20 Status: OrderedPen [place], 31 G x 5 mm BD Ultra [...] 07/20/19 16:14:12 EST, Route to Pharmacy Electronically, [id number], [id number] Start Date: 07/20/19 Status: Orderedspironolactone 100 mg oral tablet 1, tablet, By Mouth, Daily, # 30 tablet, Refills 2, Tot. Refills 2, Maintenance, 05/16/20 16:31:00 EDT, Route to Pharmacy Electronically, [facility]/pharmacy #0693, 160.02, cm, 05/09/20 12:34:00 EDT, Height, 73.6, kg, 04/18/20 10:19:00 EDT, Dry Weight Start Date: 05/16/20 Status: OrderedtraMADol 50 mg oral tablet See Instructions, PRN Pain , Severe, 1-2 tablets by mouth every 6 hours Schedule follow visit, # 240tablet, 1 Refills, Soft Stop, 05/19/20 16:27:00 EDT, [facility]/pharmacy #0693, 160.02, cm, 05/09/20 12:34:00 EDT, Height, [...] 5 Refills, Soft Stop, 12/16/19 15:45:00 EDT, [facility]/pharmacy #0693, 160.02, cm, 11/02/19 15:34:00 EDT, Height, 81.6, kg, 07/27/19 14:52:00 EST, Dry Weight Start Date: 12/16/19 Status: OrderedVictoza 18 mg/3 mL subcutaneous solution See Instructions, INJECT 1.8 MG UNDER THE SKIN ONCE DAILY, # 9 Unknown, 0 Refills, Maintenance, [facility] STORE 79228, 160.02, cm, 05/09/20 12:34:00 EDT, Height, 73.6, [...] myelopathy(Confirmed) OA (osteoarthritis), Active cervical(Confirmed) Osteoporosis(Confirmed) Active *[facility] [phone] 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 50-70% bilaterally.3Patient's retread supervisor is [facility] and patient sees Dr. Gume Mart Diagnosis Diagnosis Type Effective Dates Health Status Clinical In formant Service Wrist pain, Discharge 06/01/20 right Diagnosis Unsteady gait Discharge 06/01/20 Diagnosis Falls Discharge 06/01/20 Diagnosis Vital Signs Most recent to oldest [Reference Range]: 1 Height 160.02 cm (06/01/20 11:03 AM) Weight 72.4 kg (06/01/20 11:03 AM) Oxygen Saturation [94-100 %] 93 % *L* (06/01/20 11:03 AM) Pulse Rate [55-90 bpm] 72 bpm (06/01/20 11:03 AM) Body Mass Index [18.5-24.99] 28.27 *H* (06/01/20 11:03 AM) Blood Pressure [90-138/55-84 mm Hg] 134/72 mm Hg (06/01/20 11:03 AM) Blood pressure sites Arm, left (06/01/20 11:03 AM) Social History Social History Type Response Smoking Status Current some day smoker; Typ e: Cigarettes; Other: less than 1/2 pack a day; Tobacco use times per day: 1/2 pack a day; entered on: 02/19/17 Sex
--- OUTSIDE RECORDS SUMMARY | 2022-06-09 08:46 | XMS_ITS | Continuity of Care Document ---
:1950 Author Organization [facility] Adult Address [address] [place] [address]- Care Team Providers Name Role Phone Kristan SUTTON, Ranjeet Beatty Primary Care Physician Encounter [facility] Date(s): 10/02/20 - 11/01/20 [facility] [address] [place] [address]- Allergies, Adverse Reactions, Alerts Substance Reaction Severity [...] 07/19/08 Given 1Result Comment: [05/28/2017] HD [facility]: [id number] History: [id number] Note: VIS GIVEN-DATED Admin Note: vis [id number] Note: VIS ubufj5Bmjbu Note: VIS-[id number] History: [facility] [id number] History: [facility] DEANGELO Gray Comment: [10/17/2015] PER NICO AT [id number] Note: VIS [id number] Note: VIS GIVEN Medications 12 inch Grab Bars 12 inch Grab Bars, See Instructions, # 2 each, Refills 0, Tot. Refills 0, Maintenance, Grab bars : Length 12inches Use as directed DX Unsteady Gait ICD10 R26.81 HT: 5'3 Weight 162lbs Length of need Lifetime, 07/07/20 11:45:00 EST, Supply Start Date: 07/07/20 Status: OrderedADMIT TO [facility] ADMIT TO [facility], See Instructions, # 1 each, Refills 0, Tot. Refills 0, Maintenance, FAX [phone] ADMIT TO ALF, PT, OT. 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 Start Date: 10/17/20 Status: Orderedalbuterol 90 mcg/inh inhalation powder 2 puffs, Inhalation, Every 6 hours, PRN as needed, # 1 each, 11 Refills, Maintenance, 05/05/20 14:02:00 EDT, Powder, [facility]/pharmacy #0693, 2 puffs Inhalation Every 6 hours,PRN:as needed, 160.02, cm, 05/05/20 13:43:00 EDT, Height, 73.6, kg, 04/18/20 10:1... Start Date: 05/05/20 Status: Orderedalendronate 70 mg oral tablet 1 tablet, By Mouth, Every week, # 12 tablet, 0 Refills, Maintenance, 10/30/20 7:29:00 EST, [facility] [id number], 160, cm, 10/20/20 15:01:00 EST, Height, 77.5, kg, 10/05/20 14:31:00 EST, Dry Weight Start Date: 10/30/20 Status: Orderedallopurinol 300 mg oral tablet 300 mg, 1, tablet, By Mouth, Daily, # 90 tablet, Refills 0, Tot. Refills 0, Maintenance, 10/28/20 12:31:00 EST, Route to Pharmacy Electronically, [facility]/pharmacy #[id number], 160, cm, 10/20/20 15:01:00 EST, [...] 1 Refills, Maintenance, 09/28/20 11:53:00 EST, Tablet, [facility]/pharmacy #0693, 160, cm, 09/12/20 14:03:00 EST, [...] 07/06/20 15:48:00 EST, Route to Pharmacy Electronically, [facility]/pharmacy #0693, 160.02, cm, 07/03/20 14:54:00 EST,Height, 73.6, kg, 04/18/20 10:19:00 EDT, Dry Weight Start Date: 07/06/20 Stop Date: 10/04/20 Status: OrderedHumira 40 mg subcutaneous solution See Instructions, 40 mg [id number], 0 Refills, Maintenance, 10/23/20 13:46:00 EST, Partial fill upon patient request if the prescription is for a schedule II opioid drug. Start Date: 10/23/20 Status: OrderedLyrica 150 mg oral capsule 1 capsule = 150 mg, By Mouth, 2 times a day, DOSAGE INCREASE, # 60 capsule, 3 Refills, Maintenance, 07/04/20 11:46:00 EST, Capsule, [facility]/pharmacy #0693, 160.02, cm, 07/03/20 14:54:00 EST, Height, 73.6, kg, 04/18/20 10:19:00 EDT, Dry Weight Start Date: 07/04/20 Status: Orderedmagnesium oxide 400 mg (240 mg elemental magnesium) oral tablet 1 tablet, By Mouth, Daily, # 90 tablet, 0 Refills, Acute, 09/20/20 12:20:00 EST, [facility] STORE 05678, 90, TAKE 1 TABLET BY MOUTH DAILY, 160, cm, 09/12/20 14:03:00 EST, Height, 71.3, kg, 08/08/20 7:00:00 EST, Dry Weight Start Date: 09/20/20 Status: OrderedMelatonin 3 mg oral tablet 1 tablet = 3 mg, By Mouth, Daily at bedtime, PRN for insomnia, [facility], # 90 tablet, 3 Refills, Maintenance, 04/24/20 9:53:00 EDT, Tablet, [facility]/pharmacy #0693, 1 tablet By Mouth Daily at bedtime,PRN:for insomnia,Instr:[employer] brand, 160.02, cm, 04/18/20... Start Date: 04/24/20 [...] if th... Start Date: 08/30/20 Status: OrderedPen [place], 31 G x 5 mm BD Ultra [...] 06/28/20 9:31:00 EST, Route to Pharmacy Electronically, [facility]/pharmacy #[id number], 160.02, cm, 06/01/20 11:03:00 EDT, [...] Refills, Maintenance, 07/03/20 15:20:00 EST, ER Tablet, [facility]/pharmacy #0693, 160.02, cm, 07/03/20 14:54:00 EST, Height, 73.6, kg, 04/18/20 10:19:00 EDT, Dry Weight Start Date: 07/03/20 Status: OrderedZoloft 50 mg oral tablet 1 tablet = 50 mg, By Mouth, Daily, DOSAGE INCREASE, # 30 tablet, 0 Refills, Maintenance, 10/30/20 17:12:00 EST, Tablet, [facility]/pharmacy #[id number], Partial fill upon patient request [...] myelopathy(Confirmed) OA (osteoarthritis), Active cervical(Confirmed) Osteoporosis(Confirmed) Active *[facility] [phone] 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 Gume Mart Social History Social History Type Response Tobacco Other: last cigarette 0. Sex
--- OUTSIDE RECORDS SUMMARY | 2022-06-09 08:46 | XMS_ITS | Continuity of Care Document ---
:1950 Author Organization [facility] Address [address] [place] [address]- Care Team Providers Name Role Phone Ranjeet Rushing MD Primary Care Physician Encounter [facility] Date(s): 05/02/21 - 07/22/21 [facility] [address] [place] [address]- Attending Physician: Sin SUTTON, Mustapha Admitting Physician: Sin SUTTON, Mustapha Allergies, Adverse Reactions, Alerts Substance Reaction Severity [...] (PPV23) (oldterm)11 07/19/08 Given 1Result Comment: [05/28/2017] [facility]: [id number] History: [id number] Note: VIS GIVEN-DATED Admin Note: vis [id number] Note: VIS fsoba1Tvgmv Note: VIS-RKEQT1Zahooslh [place] [facility] [id number] History: [facility] [id number] Comment: [10/17/2015] PER NICO AT [id number] Note: VIS [id number] Note: VIS GIVEN Medications 12 inch Grab [...] Refills, Maintenance, 05/05/20 14:02:00 EDT, Powder, [facility]/pharmacy #0693, 2 puffs Inhalation Every 6 hours,PRN:as needed, 160.02, cm, 05/05/20 13:43:00 EDT, Height, 73.6, kg, 04/18/20 10:1... Start Date: 05/05/20 Status: Orderedalendronate 70 mg oral tablet 1 tablet, By Mouth, Every week, # 12 tablet, 6 Refills, Maintenance, 01/09/21 16:07:00 EDT, [facility] STORE 60184, 160, cm, 12/25/20 14:20:00 EDT, Height, 77.5, kg, 10/05/20 14:31:00 EST, Dry Weight Start Date: 01/09/21 Status: Orderedallopurinol 300 mg oral tablet 1, tablet, By Mouth, Daily, # 90 tablet, Refills 1, Route to Pharmacy Electronically, [facility], 160, cm, 06/19/21 13:57:00 EDT, Height, 77.27, [...] tablet, 5 Refills, Maintenance, 03/12/21 10:51:00 EDT, [facility], 160, cm, 02/27/21 13:50:00 EDT, Height, 79.6, [...] 1 Refills, Maintenance, 02/08/21 9:52:00 EDT, Tablet, [facility], 160, cm, 01/25/21 14:11:00 EDT, Height, [...] 02/06/21 9:05:00 EDT, Route to Pharmacy Electronically, [facility]/pharmacy #[id number], 160, cm, 01/25/21 14:11:00 EDT, Height, 77.5, kg, 10/05/20 14:31:00 EST, Dry Weight Start Date: 02/06/21 Stop Date: 08/05/21 Status: OrderedHumira 40 mg subcutaneous solution See Instructions, 40 mg O7ekoxn, 0 Refills, Maintenance, 10/23/20 13:46:00 EST, Partial fill upon patient request if the prescription is for a schedule II opioid drug. Start Date: 10/23/20 Status: OrderedLyrica 150 mg oral capsule 1 capsule = 150 mg, By Mouth, 2 times a day, DOSAGE INCREASE, # 60 capsule, 3 Refills, Maintenance, 07/09/21 14:12:00 EST, Capsule, [facility]/pharmacy #0693, 160, cm, 06/19/21 13:57:00 EDT, Height, 77.27, kg, 03/24/21 20:58:00 EDT, Dry Weight Start Date: 07/09/21 Status: Orderedmagnesium oxide 400 mg (240 mg elemental magnesium) oral tablet 1 tablet, By Mouth, Daily, # 90 tablet, 0 Refills, Acute, 09/20/20 12:20:00 EST, [facility], 90, TAKE 1 TABLET BY MOUTH DAILY, 160, cm, 09/12/20 14:03:00 EST, Height, 71.3, kg, 08/08/20 7:00:00 EST, Dry Weight Start Date: 09/20/20 Status: Orderedmagnesium oxide 400 mg oral tablet 1 tablet = 400 mg, By Mouth, Daily, # 100 tablet, 2 Refills, Maintenance, 06/05/21 11:32:00 EDT, Tablet, [facility]/pharmacy #[id number], Partial fill upon patient request if the prescription is for a schedule II opioid drug., 160, cm, 05/21/21 11:03:00 EDT, Heigh... Start Date: 06/05/21 Status: OrderedMelatonin 3 mg oral tablet 1 tablet = 3 mg, By Mouth, Daily at bedtime, PRN for insomnia, [facility], # 90 tablet, 3 Refills, Maintenance, 04/24/20 9:53:00 EDT, Tablet, [facility]/pharmacy #0693, 1 tablet By Mouth Daily [...] EDT, Injec... Start Date: 06/11/21 Status: OrderedPen Bardwell, 31 G x 5 mm BD Ultra [...] 01/09/21 15:06:00 EDT, Route to Pharmacy Electronically, [facility]/pharmacy #0608, 160, cm, 12/25/20 14:20:00 EDT, Height, 77.5, kg, 10/05/20 14:31:00 EST, Start Date: 01/09/21 Status: Orderedspironolactone 100 mg oral tablet 100 mg, 1, tablet, By Mouth, Daily, # 90 tablet, Refills 0, Tot. Refills 0, Maintenance, 01/23/21 14:56:00 EDT, [facility], Partial fill upon patient request if the prescription is for a schedule II opioid geovanny. Start Date: 01/23/21 Stop Date: 04/23/21 Status: OrderedtraMADol 50 mg oral tablet See Instructions, TAKE 1-2 TABLETS BY MOUTH EVERY 6 HOURS SCHEDULE FOLLOW VISIT, NEEDED FOR PAIN,# 240 tablet, 5 Refills, Maintenance, 05/31/21 9:52:00 EDT, [facility]/pharmacy #[id number], 160, cm, 05/21/21 11:03:00 EDT, [...] 3 Refills, Maintenance, 04/19/21 11:35:00 EDT, Powder, 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 50-70% bilaterally.3Patient's trimmer machine [facility] and [facility] Dr. Gume Mart Social History Social History Type Response Tobacco Other: last cigarette 0. Sex
--- OUTSIDE RECORDS SUMMARY | 2022-06-09 08:46 | XMS_ITS | Continuity of Care Document ---
:1950 Author Organization [facility] Address [address] [place] [address]- Care Team Providers Name Role Phone Ranjeet Rushing MD Primary Care Physician Encounter [facility] Date(s): 07/26/21 - 08/02/21 [facility] [address] [place] [address]- Attending Physician: Chari Grey NP Referring Physician: [...] (oldterm)11 07/19/08 Given 1Result Comment: [05/28/2017] [facility]: [id number] History: [id number] Note: VIS GIVEN-DATED Admin Note: vis coorz7Cjgis Note: VIS pjynk5Gkuxn Note: VIS-[id number] History: [facility] [id number] History: [facility] [id number] Comment: [10/17/2015] PER NICO AT [id number] Note: VIS [id number] Note: VIS GIVEN Medications 12 inch Grab [...] 11 Refills, Maintenance, 05/05/20 14:02:00 EDT, Powder, [facility]/pharmacy #0693, 2 puffs Inhalation Every 6 hours,PRN:as needed, 160.02, cm, 05/05/20 13:43:00 EDT, Height, 73.6, kg, 04/18/20 10:1... Start Date: 05/05/20 Status: Orderedalendronate 70 mg oral tablet 1 tablet, By Mouth, Every week, # 12 tablet, 6 Refills, Maintenance, 01/09/21 16:07:00 EDT, [facility] STORE 61498, 160, cm, 12/25/20 14:20:00 EDT, Height, 77.5, kg, 10/05/20 14:31:00 EST, Dry Weight Start Date: 01/09/21 Status: Orderedallopurinol 300 mg oral tablet 1, tablet, By Mouth, Daily, # 90 tablet, Refills 1, Route to Pharmacy Electronically, [facility], 160, cm, 06/19/21 13:57:00 EDT, Height, 77.27, [...] tablet, 5 Refills, Maintenance, 03/12/21 10:51:00 EDT, [facility], 160, cm, 02/27/21 13:50:00 EDT, Height, 79.6, [...] 02/06/21 9:05:00 EDT, Route to Pharmacy Electronically, [facility]/pharmacy #[id number], 160, cm, 01/25/21 14:11:00 EDT, Height, 77.5, kg, 10/05/20 14:31:00 EST, Dry Weight Start Date: 02/06/21 Stop Date: 08/05/21 Status: OrderedLyrica 150 mg oral capsule 1 capsule = 150 mg, By Mouth, 2 times a day, DOSAGE INCREASE, # 60 capsule, 3 Refills, Maintenance, 07/09/21 14:12:00 EST, Capsule, [facility]/pharmacy #[id number], 160, cm, 06/19/21 13:57:00 EDT, Height, 77.27, kg, 03/24/21 20:58:00 EDT, Dry Weight Start Date: 07/09/21 Status: Orderedmagnesium oxide 400 mg (240 mg elemental magnesium) oral tablet 1 tablet, By Mouth, Daily, # 90 tablet, 0 Refills, Acute, 09/20/20 12:20:00 EST, [facility], 90, TAKE 1 TABLET BY MOUTH DAILY, 160, cm, 09/12/20 14:03:00 EST, Height, 71.3, kg, 08/08/20 7:00:00 EST, Dry Weight Start Date: 09/20/20 Status: Orderedmagnesium oxide 400 mg oral tablet 1 tablet = 400 mg, By Mouth, Daily, # 100 tablet, 2 Refills, Maintenance, 06/05/21 11:32:00 EDT, Tablet, [facility]/pharmacy #[id number], Partial fill upon patient request if the prescription is for a schedule II opioid drug., 160, cm, 05/21/21 11:03:00 EDT, Heigh... Start Date: 06/05/21 Status: OrderedMelatonin 3 mg oral tablet 1 tablet = 3 mg, By Mouth, Daily at bedtime, PRN for insomnia, [facility], # 90 tablet, 3 Refills, Maintenance, 04/24/20 9:53:00 EDT, Tablet, [facility]/pharmacy #[id number], 1 tablet By Mouth [...] EDT, Injec... Start Date: 06/11/21 Status: OrderedPen Cooks, 31 G x 5 mm BD Ultra [...] 01/09/21 15:06:00 EDT, Route to Pharmacy Electronically, [facility]/pharmacy #[id number], 160, cm, 12/25/20 14:20:00 EDT, Height, 77.5, kg, 10/05/20 14:31:00 EST, DrJhoan.. Start Date: 01/09/21 Status: Orderedspironolactone 100 mg oral tablet 100 mg, 1, tablet, By Mouth, Daily, # 90 tablet, Refills 1, Tot. Refills 1, Maintenance, 07/23/21 13:10:00 EST, Route to Pharmacy Electronically, [facility]/pharmacy #[id number], Partial fill upon patient request if the prescription is for a schedule II opioid thomas... Start Date: 07/23/21 Stop Date: 01/19/22 Status: OrderedtraMADol 50 mg oral tablet See Instructions, TAKE 1-2 TABLETS BY MOUTH EVERY 6 HOURS SCHEDULE FOLLOW VISIT, NEEDED FOR PAIN,# 240 tablet, 5 Refills, Maintenance, 05/31/21 9:52:00 EDT, [facility]/pharmacy #[id number], 160, cm, 05/21/21 11:03:00 [...] 3 Refills, Maintenance, 04/19/21 11:35:00 EDT, Powder, [facility]/pharmacy #[id number], Partial fill upon [...] 11 Refills, Soft Stop, 07/26/21 11:05:00 EST, [facility]/pharmacy #0693, 160, cm, 07/26/21 10:45:00 EST, Height,77.27, [...] # 9 Unknown, 2 Refills, [facility], 160, cm, 06/19/21 13:57:00 EDT, Height, 77.27, [...] Refills, Maintenance, 07/26/21 11:03:00 EST, Tablet, [facility], Partial fill upon [...] Active OA (osteoarthritis), Active cervical(Confirmed) Osteoporosis(Confirmed) Active *[facility] [phone] [employer] Alpa Active Nathaniel(Confirmed) Picking own skin(Confirmed) Active 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 Gume Mart Vital Signs Most recent to oldest [Reference Range]: 1 Height 160 cm (07/26/21 10:45 AM) Weight 78.4 kg (07/26/21 10:45 AM) Oxygen Saturation [94-100 %] 95 % (07/26/21 10:45 AM) Pulse Rate [55-90 bpm] 86 bpm (07/26/21 10:45 AM) Body Mass Index [18.5-24.99] 30.63 *>HHI* (07/26/21 10:45 AM) Blood Pressure [90-138/55-84 mm Hg] 112/56 mm Hg (07/26/21 10:45 AM) Respiratory Rate [16-30 br/min] 22 br/min (07/26/21 10:45 AM) Temperature [96.8-100.4 DegF] 98.1 DegF (07/26/21 10:45 AM) Mode of Delivery (Oxygen) Room air (07/26/21 10:45 AM) Blood pressure sites Arm, right (07/26/21 10:45 AM) Temperature Route Oral (07/26/21 10:45 AM) Weight Obtained Via Standing scale (07/26/21 10:45 AM) Social History Social History Type Response Tobacco Other: last cigarette 0. Sex
--- OUTSIDE RECORDS SUMMARY | 2022-06-09 08:46 | XMS_ITS | Continuity of Care Document ---
:1950 Author Organization [facility] Address [address] [place] [id number]- Care Team Providers Name Role Phone Kristan SUTTON, Ranjeet Beatty Primary Care Physician Encounter [facility] Date(s): 03/08/21 - 04/07/21 [facility] [address] [place] [id number] Allergies, Adverse Reactions, Alerts Substance Reaction Severity [...] 1Result Comment: [05/28/2017] [facility]: [id number] History: [id number] Note: VIS GIVEN-DATED Admin Note: vis [id number] Note: VIS [id number] Note: VIS-CODWU2Jftrhudt History: [facility] [id number] History: [facility] [id number] Comment: [10/17/2015] PER NICO AT [id number] Note: VIS [id number] Note: VIS GIVEN Medications 12 inch Grab [...] 11 Refills, Maintenance, 05/05/20 14:02:00 EDT, Powder, [facility]/pharmacy #[id number], 2 puffs Inhalation Every 6 hours,PRN:as needed, 160.02, cm, 05/05/20 13:43:00 EDT, Height, 73.6, kg, 04/18/20 10:1... Start Date: 05/05/20 Status: Orderedalendronate 70 mg oral tablet 1 tablet, By Mouth, Every week, # 12 tablet, 6 Refills, Maintenance, 01/09/21 16:07:00 EDT, [facility] STORE 39893, 160, cm, 12/25/20 14:20:00 EDT, Height, 77.5, kg, 10/05/20 14:31:00 EST, Dry Weight Start Date: 01/09/21 Status: Orderedallopurinol 300 mg oral tablet 300 mg, 1, tablet, By Mouth, Daily, # 90 tablet, Refills 1, Tot. Refills 1, Maintenance, 01/26/21 12:31:00 EDT, Route to Pharmacy Electronically, [facility]/pharmacy #[id number], 160, cm, 12/25/20 14:20:00 EDT, [...] 2 times a day, for 14 days, to affected area to affected area, # 50 Gm, 0 Refills, Acute 04/10/21 10:47:00 EDT, 03/27/21 10:47:00 EDT, Cream, Partial fill upon patient requestif the prescription is for a schedule II opioid... Start Date: 03/27/21 Stop Date: 04/10/21 Status: OrderedbuPROPion 300 mg/24 hours (XL) oral tablet, extended release 1 tablet, By Mouth, Daily, # 30 tablet, 5 Refills, Maintenance, 03/12/21 10:51:00 EDT, [facility] ST[facility] 73897, 160, cm, 02/27/21 13:50:00 EDT, Height, 79.6, [...] 1 Refills, Maintenance, 02/08/21 9:52:00 EDT, Tablet, [facility]/pharmacy #0693, 160, cm, 01/25/21 14:11:00 EDT, [...] 02/06/21 9:05:00 EDT, Route to Pharmacy Electronically, [facility]/pharmacy #[id number], 160, cm, 01/25/21 14:11:00 EDT, Height, 77.5, kg, 10/05/20 14:31:00 EST, Dry Weight Start Date: 02/06/21 Stop Date: 08/05/21 Status: OrderedHumira 40 mg subcutaneous solution See Instructions, 40 mg A0nedot, 0 Refills, Maintenance, 10/23/20 13:46:00 EST, Partial fill upon patient request if the prescription is for a schedule II opioid drug. Start Date: 10/23/20 Status: OrderedLyrica 150 mg oral capsule 1 capsule = 150 mg, By Mouth, 2 times a day, DOSAGE INCREASE, # 60 capsule, 3 Refills, Maintenance, 01/23/21 14:56:00 EDT, Capsule, [facility]/pharmacy #[id number], 160, cm, 01/14/21 11:46:00 EDT, Height, 77.5, kg,10/05/20 14:31:00 EST, Dry Weight Start Date: 01/23/21 Status: Orderedmagnesium oxide 400 mg (240 mg elemental magnesium) oral tablet 1 tablet, By Mouth, Daily, # 90 tablet, 0 Refills, Acute, 09/20/20 12:20:00 EST, [facility] STORE 09650, 90, TAKE 1 TABLET BY MOUTH DAILY, 160, cm, 09/12/20 14:03:00 EST, Height, 71.3, kg, 08/08/20 7:00:00 EST, Dry Weight Start Date: 09/20/20 Status: OrderedMelatonin 3 mg oral tablet 1 tablet = 3 mg, By Mouth, Daily at bedtime, PRN for insomnia, [facility] brand, # 90 tablet, 3 Refills, Maintenance, 04/24/20 9:53:00 EDT, Tablet, [facility]/pharmacy #[id number], 1 tablet By Mouth Daily at bedtime,PRN:for insomnia,Instr:[facility] brand, 160.02, cm, 04/18/20... Start Date: 04/24/20 [...] if th... Start Date: 08/30/20 Status: OrderedPen Friedens, 31 G x 5 mm BD Ultra [...] 01/09/21 15:06:00 EDT, Route to Pharmacy Electronically, [facility]/pharmacy #[id number], 160, cm, 12/25/20 14:20:00 EDT, Height, 77.5, kg, 10/05/20 14:31:00 EST, Start Date: 01/09/21 Status: Orderedspironolactone 100 mg oral tablet 100 mg, 1, tablet, By Mouth, Daily, # 90 tablet, Refills 0, Tot. 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 Gume Mart Social History Social History Type Response Tobacco Other: last cigarette 0. Sex
--- OUTSIDE RECORDS SUMMARY | 2022-06-09 08:46 | XMS_ITS | Continuity of Care Document ---
:1950 Author Organization [facility] [address] [place] [address]- Care Team Providers Name Role Phone Ranjeet Rushing MD Primary Care Physician Encounter [facility] Date(s): 09/14/21 - 10/14/21 [facility] [address] [place], [place] [address] Attending Physician: Admtr, Evans Admitting Physician: Admtr, [id number] Referring Physician: Admtr, [...] vaccine, inactivated 03/30/18 Recorded zoster vaccine, inactivated 6/18/18 Recorded Influenza Virus Vaccine (oldterm) 06/17/19 Recorded [...] (PPV23) (oldterm)11 07/19/08 Given 1Result Comment: [05/28/2017] [facility]: [id number] History: [id number] Note: VIS GIVEN-DATED Admin Note: vis cahqt4Ompwm Note: VIS ikpss3Xejwn Note: VIS-PCETT6Xcgcyaoc [place] [facility] [id number] History: [facility] [id number] Comment: [10/17/2015] PER NICO AT [id number] Note: VIS [id number] Note: VIS GIVEN Medications 12 inch Grab [...] 11 Refills, Maintenance, 05/05/20 14:02:00 EDT, Powder, [facility]/pharmacy #0693, 2 puffs Inhalation Every 6 hours,PRN:as needed, 160.02, cm, 05/05/20 13:43:00 EDT, Height, 73.6, kg, 04/18/20 10:1... Start Date: 05/05/20 Status: Orderedalendronate 70 mg oral tablet 1 tablet, By Mouth, Every week, # 12 tablet, 6 Refills, Maintenance, 01/09/21 16:07:00 EDT, [facility], 160, cm, 12/25/20 14:20:00 EDT, Height, 77.5, kg, 10/05/20 14:31:00 EST, Dry Weight Start Date: 01/09/21 Status: Orderedallopurinol 300 mg oral tablet 1, tablet, By Mouth, Daily, # 90 tablet, Refills 1, Route to Pharmacy Electronically, [facility], 160, cm, 06/19/21 13:57:00 EDT, Height, 77.27, [...] tablet, 5 Refills, Maintenance, 08/30/21 7:54:00 EST, [id number], 160, cm, 07/26/21 10:45:00 EST, Height, [...] 1 Refills, Maintenance, 09/18/21 11:52:00 EST, Tablet, [facility]/pharmacy #0693, 160, [...] 0 Refills, Maintenance, 09/28/21 15:23:00 EST, Tablet, [facility]/pharmacy #0693, Partial [...] 02/06/21 9:05:00 EDT, Route to Pharmacy Electronically, [facility]/pharmacy #[id number], 160, cm, 01/25/21 14:11:00 EDT, Height, 77.5, kg, 10/05/20 14:31:00 EST, Dry Weight Start Date: 02/06/21 Stop Date: 08/05/21 Status: OrderedLyrica 150 mg oral capsule 1 capsule = 150 mg, By Mouth, 2 times a day, DOSAGE INCREASE, # 60 capsule, 3 Refills, Maintenance, 07/09/21 14:12:00 EST, Capsule, [facility]/pharmacy #[id number], 160, cm, 06/19/21 13:57:00 EDT, Height, 77.27, kg, 03/24/21 20:58:00 EDT, Dry Weight Start Date: 07/09/21 Status: Orderedmagnesium oxide 400 mg (240 mg elemental magnesium) oral tablet 1 tablet, By Mouth, Daily, # 90 tablet, 0 Refills, Acute, 09/20/20 12:20:00 EST, [facility] STORE 58671, 90, TAKE 1 TABLET BY MOUTH DAILY, 160, cm, 09/12/20 14:03:00 EST, Height, 71.3, kg, 08/08/20 7:00:00 EST, Dry Weight Start Date: 09/20/20 Status: Orderedmagnesium oxide 400 mg oral tablet 1 tablet = 400 mg, By Mouth, Daily, # 100 tablet, 2 Refills, Maintenance, 06/05/21 11:32:00 EDT, Tablet, [facility]/pharmacy #[id number], Partial fill upon patient request if the prescription is for a schedule II opioid drug., 160, cm, 05/21/21 11:03:00 EDT, Heigh... Start Date: 06/05/21 Status: OrderedMelatonin 3 mg oral tablet 1 tablet = 3 mg, By Mouth, Daily at bedtime, PRN for insomnia, [facility], # 90 tablet, 3 Refills, Maintenance, 04/24/20 9:53:00 EDT, Tablet, [facility]/pharmacy #0693, 1 [...] EDT, Injec... Start Date: 06/11/21 Status: OrderedPen Minto, 31 G x 5 mm BD Ultra [...] 07/23/21 13:10:00 EST, Route to Pharmacy Electronically, [facility]/pharmacy #[id number], Partial fill upon patient request if the prescription is for a schedule II opioid thomas... Start Date: 07/23/21 Stop Date: 01/19/22 Status: OrderedtraMADol 50 mg oral tablet See Instructions, TAKE 1-2 TABLETS BY MOUTH EVERY 6 HOURS SCHEDULE FOLLOW VISIT, NEEDED FOR PAIN,# 240 tablet, 5 Refills, Maintenance, 05/31/21 9:52:00 EDT, [facility]/pharmacy #0693, 160, cm, 05/21/21 11:03:00 [...] # 9 Unknown, 5 Refills, [facility], 160, cm, 09/07/21 15:03:00 EST, Height, 77.27, [...] 0 Refills, Maintenance, 09/28/21 15:23:00 EST, Tablet, [facility]/pharmacy #0693, Partial [...] myelopathy(Confirmed) OA (osteoarthritis), Active cervical(Confirmed) Osteoporosis(Confirmed) Active *[facility] 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 Gume Mart Social History Social History Type Response Smoking Status Former smoker, quit more mark n 30 days ago entered on: 09/28/21 Sex
--- OUTSIDE RECORDS SUMMARY | 2022-06-09 08:46 | XMS_ITS | Continuity of Care Document ---
:1950 Author Organization [facility] Address [address] [place] [address]- Care Team Providers Name Role Phone Ranjeet Rushing MD Primary Care Physician [place] [facility] 12/01/[address] [address] Attending Physician: Matilda LOZADA, Chari Santos Admitting Physician: Matilda LOZADA, Chari Santos Referring Physician: Matilda LOZADA, Chari Santos Allergies, Adverse [...] 1Result Comment: [05/28/2017] [facility]: [id number] History: [id number] Note: VIS GIVEN-DATED Admin Note: vis [id number] Note: VIS [id number] Note: VIS-[id number] [place] [facility] [id number] History: [facility] [id number] Comment: [10/17/2015] PER NICO AT [id number] Note: VIS [id number] Note: VIS GIVEN Medications 12 inch Grab [...] 11 Refills, Maintenance, 05/05/20 14:02:00 EDT, Powder, [facility]/pharmacy #[id number], 2 puffs Inhalation Every 6 hours,PRN:as needed, 160.02, cm, 05/05/20 13:43:00 EDT, Height, 73.6, kg, 04/18/20 10:1... Start Date: 05/05/20 Status: Orderedalendronate 70 mg oral tablet 1 tablet, By Mouth, Every week, # 12 tablet, 6 Refills, Maintenance, 01/09/21 16:07:00 EDT, [facility], 160, cm, 12/25/20 14:20:00 EDT, Height, 77.5, kg, 10/05/20 14:31:00 EST, Dry Weight Start Date: 01/09/21 Status: Orderedallopurinol 300 mg oral tablet 1, tablet, By Mouth, Daily, # 90 tablet, Refills 1, Route to [facility] Electronically, [facility], 160, cm, 06/19/21 13:57:00 EDT, Height, 77.27, kg, 03/24/21 20:58:00 EDT, Dry Weight Start Date: 07/09/21 Status: OrderedBACK BRACE BACK BRACE, See Instructions, # 1 each, Refills 0, Tot. Refills 0, Maintenance, DX BACK PAIN M54.9 DANTE LIFETIME HT 5'3 WT 182 LB, 07/23/16 14:35:27, Compound Start Date: 07/23/16 Status: OrderedBD UF SHORT PEN NEEDLE [id number] BD UF SHORT PEN NEEDLE [id number], See Instructions, # 200 Unknown, 5 Refills, USE TO INJECT INSULIN TWICE A DAY, 160, cm, 11/27/21 14:08:00 EDT, Height, 74.8, kg, 11/01/21 15:05:00 EST, Dry Weight Start Date: 11/30/21 Status: OrderedbuPROPion 300 mg/24 hours (XL) oral tablet, extended release 1 tablet, By Mouth, Daily, # 30 tablet, 5 Refills, Maintenance, 08/30/21 7:54:00 EST, [facility]/pharmacy #[id number], 160, cm, 07/26/21 10:45:00 EST, [...] tablet, 1 Refills, Maintenance,11/13/21 15:13:00 EDT, Tablet, [facility]/pharmacy #[id number], Partial fill upon patient request [...] 1, Route to [facility] Electronically, [facility], 160, cm, 10/15/21 15:03:00 EST, Height, 75, kg, 09/14/21 11:51:00 EST, Dry Weight Start Date: 10/16/21 Status: OrderedLyrica 150 mg oral capsule 1 capsule = 150 mg, By Mouth, 2 times a day, DOSAGE INCREASE, # 60 capsule, 3 Refills, Maintenance, 11/12/21 16:27:00 EDT, Capsule, [facility]/pharmacy #[id number], 160, cm, 11/01/21 15:12:00 EST, Height, 74.8, kg,11/01/21 15:05:00 EST, Dry Weight Start Date: 11/12/21 Status: Orderedmagnesium oxide 400 mg (240 mg elemental magnesium) oral tablet 1 tablet, By Mouth, Daily, # 90 tablet, 0 Refills, Acute, 09/20/20 12:20:00 EST, [facility] STORE [facility], 90, TAKE 1 TABLET BY MOUTH DAILY, 160, cm, 09/12/20 14:03:00 EST, Height, 71.3, kg, 08/08/20 7:00:00 EST, Dry Weight Start Date: 09/20/20 Status: Orderedmagnesium oxide 400 mg oral tablet 1 tablet = 400 mg, By Mouth, Daily, # 100 tablet, 2 Refills, Maintenance, 06/05/21 11:32:00 EDT, Tablet, [facility]/pharmacy #[id number], Partial fill upon patient request if the prescription is for a schedule II opioid drug., 160, cm, 05/21/21 11:03:00 EDT, Heigh... Start Date: 06/05/21 Status: OrderedMelatonin 3 mg oral tablet 1 tablet = 3 mg, By Mouth, Daily at bedtime, PRN for insomnia, [facility], # 90 tablet, 3 Refills, Maintenance, 10/17/21 12:02:00 EST, Tablet, [facility]/pharmacy #[id number], 1 tablet By Mouth Daily at bedtime,PRN:for insomnia,Instr:[facility], 160, cm, 10/16/21 14... Start Date: 10/17/21 Status: OrderedMiconazole 2% Topical Ointment 1 applicator, Topically, Daily, 0 Refills, Maintenance, Ointment Start Date: 03/27/21 Status: OrderedMilk of Magnesia Liquid 30 mL, By Mouth, Daily, PRN Constipation, 0 Refills, Maintenance, 12/24/20 11:31:00 EST, Suspension,Partial fill upon patient request [...] EDT, Injec... Start Date: 06/11/21 Status: OrderedPen [place], 31 G x 5 mm BD Ultra Fine III See Instructions, # 200 each, Refills 5, Tot. Refills 5, Maintenance, To inject insulin BID for DM II E11.9 PER CHARI EMERY NP-C, 10/06/20 10:54:00 EST, SHORT, Compound, [...] 09/15/21 17:53:00 EST, [id number], 160, cm, 09/14/21 11:51:00 EST, Height, 75, [...] 07/23/21 13:10:00 EST, [id number] Partial fill upon patient request if the prescription is for a schedule II opioid thomas... Start Date: 07/23/21 Stop Date: 01/19/22 Status: OrderedtraMADol 50 mg oral tablet See Instructions, TAKE 1-2 TABLETS BY MOUTH EVERY 6 HOURS SCHEDULE FOLLOW VISIT, NEEDED FOR PAIN,# 240 tablet, 5 Refills, Maintenance, 05/31/21 9:52:00 EDT, [facility]/pharmacy #[id number], 160, cm, 05/21/21 11:03:00 EDT, [...] 3 Refills, Maintenance, 04/19/21 11:35:00 EDT, Powder, [facility]/pharmacy #[id number], Partial fill upon patient request [...] 11 Refills, Soft Stop, 07/26/21 11:05:00 EST, [facility]/pharmacy #0693, 160, cm, 07/26/21 10:45:00 EST, Height,77.27, [...] # 9 Unknown, 5 Refills, [facility], 160, cm, 09/07/21 15:03:00 EST, Height, 77.27, [...] Active OA (osteoarthritis), Active cervical(Confirmed) Osteoporosis(Confirmed) Active *[facility] [phone] [employer] [place] Active Nathaniel(Confirmed) Picking own skin(Confirmed) Active 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 and [facility] sees Dr. Gume Mart Social History Social History Type Response Smoking Status Former smoker, quit more mark n 30 days ago entered on: 09/28/21 Sex
--- OUTSIDE RECORDS SUMMARY | 2022-06-09 08:46 | XMS_ITS | Continuity of Care Document ---
:1950 Author Organization [facility] Address [address] [place] [address]- Care Team Providers Name Role Phone Kristan SUTTON, Ranjeet Beatty Primary Care Physician [facility]counter [facility] Date(s): 03/04/22 - 04/03/22 [facility] [address] [place] [address]- Allergies, Adverse Reactions, Alerts Substance Reaction Severity [...] Given 1Result Comment: [05/28/2017] [facility]: [id number] History: [id number] Note: VIS GIVEN-DATED Admin Note: vis [id number] Note: VIS [id number] Note: [id number] [place] [facility] [id number] [facility]: [facility] [id number] Comment: [10/17/2015] PER NICO AT [id number] Note: VIS [id number] Note: VIS GIVEN Medications 12 inch Grab [...] Refills, Maintenance, 05/05/20 14:02:00 EDT, Powder, [facility]/pharmacy #[id number], 2 puffs Inhalation Every 6 hours,PRN:as needed, 160.02, cm, 05/05/20 13:43:00 EDT, Height, 73.6, kg, 04/18/20 10:1... Start Date: 05/05/20 Status: Orderedalendronate 70 mg oral tablet 1 tablet, By Mouth, Every week, # 12 tablet, 1 Refills, [facility], 160, cm, 01/17/22 14:38:00 EDT, Height, 74.8, kg, 11/01/21 15:05:00 EST, Dry Weight Start Date: 01/30/22 Status: Orderedallopurinol 300 mg oral tablet 1, tablet, By Mouth, Daily, # 90 tablet, Refills 0, Route to Pharmacy Electronically, [facility], 160, cm, 02/21/22 15:11:00 EDT, Height, 74.8, kg, 11/01/21 15:05:00 EST, Dry Weight Start Date: 03/27/22 Status: OrderedBACK BRACE BACK BRACE, See Instructions, # 1 each, Refills 0, Tot. Refills 0, Maintenance, DX BACK PAIN M54.9 DANTE LIFETIME HT 5'3 WT 182 LB, 07/23/16 14:35:27, Compound Start Date: 07/23/16 Status: OrderedBD UF SHORT PEN NEEDLE [id number] BD UF SHORT PEN NEEDLE [id number], See Instructions, # 200 Unknown, 5 Refills, USE TO INJECT INSULIN TWICE A DAY, 160, cm, 11/27/21 14:08:00 EDT, Height, 74.8, kg, 11/01/21 15:05:00 EST, Dry Weight Start Date: 11/30/21 Status: OrderedbuPROPion 300 mg/24 hours (XL) oral tablet, extended release 1 tablet, By Mouth, Daily, # 30 tablet, 5 Refills, [facility], 160, cm, 02/04/22 13:44:00 EDT, Height, 74.8, [...] 1 Refills, Maintenance, 02/21/22 16:12:00 EDT, Tablet, [facility]/pharmacy #[id number], Partial fill upon patient request if [...] tablet, Refills 1, Route to Pharmacy Electronically, [facility], 160, cm, 02/21/22 15:11:00 EDT, Height, 74.8, kg, 11/01/21 15:05:00 EST, Dry Weight Start Date: 03/12/22 Status: OrderedLidoderm 5% film 1 patch, Topically, Daily, # 30 patch, 11 Refills, Maintenance, 12/28/21 15:03:00 EDT, [facility]/pharmacy #[id number], Partial fill upon patient request if the prescription is for a schedule II opioid drug., 1 patch Topically Daily,x30 days, 160, cm, 11/27/21 14:... Start Date: 12/28/21 Stop Date: 12/23/22 Status: OrderedLyrica 150 mg oral capsule 1 capsule = 150 mg, By Mouth, 2 times a day, DOSAGE INCREASE, # 60 capsule, 3 Refills, Maintenance, 03/26/22 10:58:00 EDT, Capsule, [facility]/pharmacy #[id number], 160, cm, 02/21/22 15:11:00 EDT, Height, 74.8, kg,11/01/21 15:05:00 EST, Dry Weight Start Date: 03/26/22 Status: OrderedLyrica 150 mg oral capsule 1 capsule = 150 mg, By Mouth, 2 times a day, DOSAGE INCREASE, # 60 capsule, 3 Refills, Maintenance, 03/26/22 10:58:00 EDT, Capsule, [facility]/pharmacy #[id number], 160, cm, 02/21/22 15:11:00 EDT, Height, 74.8, kg,11/01/21 15:05:00 EST, Dry Weight Start Date: 03/26/22 Status: Orderedmagnesium oxide 400 mg oral tablet 1 tablet, By Mouth, Daily, # 100 tablet, 2 Refills, [facility], 160, cm, 02/21/22 15:11:00 EDT,Height, 74.8, kg, 11/01/21 15:05:00 EST, Dry Weight Start Date: 03/28/22 Status: OrderedMelatonin 3 mg oral tablet 1 tablet = 3 mg, By Mouth, Daily at bedtime, PRN for insomnia, [facility], # 90 tablet, 3 Refills, Maintenance, 10/17/21 12:02:00 EST, Tablet, [facility]/pharmacy #[id number], 1 tablet By Mouth Daily at [...] EDT, Injec... Start Date: 06/11/21 Status: OrderedPen [place], 31 G x 5 mm BD Ultra [...] 09/15/21 17:53:00 EST, Route to Pharmacy Electronically, [facility]/pharmacy #[id number], 160, cm, 09/14/21 11:51:00 EST, Height, [...] tablet, Refills 1, Route to Pharmacy Electronically, [facility], 160, cm, 11/27/21 14:08:00 EDT, Height, 74.8, kg, 11/01/21 15:05:00 EST, Dry Weight Start Date: 01/11/22 Status: OrderedtraMADol 50 mg oral tablet See Instructions, TAKE 1-2 TABLETS BY MOUTH EVERY 6 HOURS SCHEDULE FOLLOW VISIT, NEEDED FOR PAIN,# 240 tablet, 5 Refills, Maintenance, 01/17/22 11:33:00 EDT, [facility]/pharmacy #[id number], 160, cm, 11/27/21 14:08:00 EDT, Height, [...] 3 Refills, Maintenance, 04/19/21 11:35:00 EDT, Powder, [facility]/pharmacy #[id number], Partial fill upon patient request if [...] 11 Refills, Soft Stop, 07/26/21 11:05:00 EST, [facility]/pharmacy #0693, 160, cm, 07/26/21 10:45:00 EST, Height,77.27, [...] # 9 Unknown, 5 Refills, [facility], 160, cm, 09/07/21 15:03:00 EST, Height, 77.27, kg, 03/24/21 20:58:00 EDT, Dry Weight Start Date: 09/11/21 Status: OrderedVITAMIN D3 1,000 UNIT SOFTGEL VITAMIN D3 1,000 UNIT SOFTGEL, 1, capsule, By Mouth, Daily, # 90 capsule, 1 Refills, 160, cm, 02/21/22 15:11:00 EDT, Height, 74.8, kg, 11/01/21 15:05:00 EST, Dry Weight Start Date: 03/09/22 Status: OrderedVitamin D3 1000 intl units oral [...] (osteoarthritis), Active cervical(Confirmed) Osteoporosis(Confirmed) Active *[facility] [phone] [facility] [place] Active Nathaniel(Confirmed) Picking own skin(Confirmed) Active 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
--- OUTSIDE RECORDS SUMMARY | 2022-06-09 08:46 | XMS_ITS | Continuity of Care Document ---
:1950 Author Organization [facility] Address [address] [place] [address]- Care Team Providers Name Role Phone Kristan SUTTON, Ranjeet Beatty Primary Care Physician Encounter [facility] Date(s): 10/06/20 - 11/05/20 [facility] [address] [place] [address]- Allergies, Adverse Reactions, Alerts Substance Reaction Severity [...] Given 1Result Comment: [05/28/2017] [facility]: [id number] History: [id number] Note: VIS GIVEN-DATED Admin Note: vis [id number] Note: VIS [id number] Note: [id number] [place] [facility] [id number] History: [facility] Gray Comment: [10/17/2015] PER NICO AT [id number] Note: VIS [id number] Note: VIS GIVEN Medications 12 inch Grab Bars 12 inch Grab Bars, See Instructions, # 2 each, Refills 0, Tot. Refills 0, Maintenance, Grab bars : Length 12inches Use as directed DX Unsteady Gait ICD10 R26.81 HT: 5'3 Weight 162lbs Length of need Lifetime, 07/07/20 11:45:00 EST, Supply Start Date: 07/07/20 Status: OrderedADMIT TO [facility] ADMIT TO [facility], See Instructions, # 1 each, Refills 0, Tot. Refills 0, Maintenance, FAX [phone] ADMIT TO SHELTER, PT, OT. 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 Start Date: 10/17/20 Status: Orderedalbuterol 90 mcg/inh inhalation powder 2 puffs, Inhalation, Every 6 hours, PRN as needed, # 1 each, 11 Refills, Maintenance, 05/05/20 14:02:00 EDT, Powder, [facility]/pharmacy #[id number], 2 puffs Inhalation Every 6 hours,PRN:as needed, 160.02, cm, 05/05/20 13:43:00 EDT, Height, 73.6, kg, 04/18/20 10:1... Start Date: 05/05/20 Status: Orderedalendronate 70 mg oral tablet 1 tablet, By Mouth, Every week, # 12 tablet, 0 Refills, Maintenance, 10/30/20 7:29:00 EST, [facility] [id number], 160, cm, 10/20/20 15:01:00 EST, Height, 77.5, kg, 10/05/20 14:31:00 EST, Dry Weight Start Date: 10/30/20 Status: Orderedallopurinol 300 mg oral tablet 300 mg, 1, tablet, By Mouth, Daily, # 90 tablet, Refills 0, Tot. Refills 0, Maintenance, 10/28/20 12:31:00 EST, Route to Pharmacy Electronically, [facility]/pharmacy #[id number], 160, cm, 10/20/20 15:01:00 EST, [...] 1 Refills, Maintenance, 09/28/20 11:53:00 EST, Tablet, [facility]/pharmacy #[id number], 160, cm, 09/12/20 14:03:00 EST, [...] 07/06/20 15:48:00 EST, Route to Pharmacy Electronically, [facility]/pharmacy #[id number], 160.02, cm, 07/03/20 14:54:00 EST,Height, 73.6, kg, 04/18/20 10:19:00 EDT, Dry Weight Start Date: 07/06/20 Stop Date: 10/04/20 Status: OrderedHumira 40 mg subcutaneous solution See Instructions, 40 mg [id number], 0 Refills, Maintenance, 10/23/20 13:46:00 EST, Partial fill upon patient request if the prescription is for a schedule II opioid drug. Start Date: 10/23/20 Status: OrderedLyrica 150 mg oral capsule 1 capsule = 150 mg, By Mouth, 2 times a day, DOSAGE INCREASE, # 60 capsule, 3 Refills, Maintenance, 07/04/20 11:46:00 EST, Capsule, [facility]/pharmacy #[id number], 160.02, cm, 07/03/20 14:54:00 EST, Height, 73.6, kg, 04/18/20 10:19:00 EDT, Dry Weight Start Date: 07/04/20 Status: Orderedmagnesium oxide 400 mg (240 mg elemental magnesium) oral tablet 1 tablet, By Mouth, Daily, # 90 tablet, 0 Refills, Acute, 09/20/20 12:20:00 EST, [facility] ST[facility], 90, TAKE 1 TABLET BY MOUTH DAILY, 160, cm, 09/12/20 14:03:00 EST, Height, 71.3, kg, 08/08/20 7:00:00 EST, Dry Weight Start Date: 09/20/20 Status: OrderedMelatonin 3 mg oral tablet 1 tablet = 3 mg, By Mouth, Daily at bedtime, PRN for insomnia, [facility], # 90 tablet, 3 Refills, Maintenance, 04/24/20 9:53:00 EDT, Tablet, [facility]/pharmacy #[id number], 1 tablet By Mouth Daily at bedtime,PRN:for insomnia,Instr:[place] brand, 160.02, cm, 04/18/20... Start Date: 04/24/20 [...] if th... Start Date: 08/30/20 Status: OrderedPen [place], 31 G x 5 mm BD Ultra [...] 06/28/20 9:31:00 EST, Route to Pharmacy Electronically, [facility]/pharmacy #[id number], 160.02, cm, 06/01/20 11:03:00 EDT, [...] # 9 Unknown, 5 Refills, 06/20/20 15:08:00EDT, [facility]/pharmacy #[id number], 160.02, cm, 06/01/20 11:03:00 EDT, [...] Refills, Maintenance, 07/03/20 15:20:00 EST, ER Tablet, [facility]/pharmacy #[id number], 160.02, cm, 07/03/20 14:54:00 EST, Height, 73.6, kg, 04/18/20 10:19:00 EDT, Dry Weight Start Date: 07/03/20 Status: OrderedZoloft 50 mg oral tablet 1 tablet = 50 mg, By Mouth, Daily, DOSAGE INCREASE, # 30 tablet, 0 Refills, Maintenance, 10/30/20 17:12:00 EST, Tablet, [facility]/pharmacy #[id number], Partial fill upon patient request [...] OA (osteoarthritis), Active cervical(Confirmed) Osteoporosis(Confirmed) Active *[facility] 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 Sex
--- OUTSIDE RECORDS SUMMARY | 2022-06-09 08:46 | XMS_ITS | Continuity of Care Document ---
:1950 Author Organization [facility] [address] [place] [address]- Care Team Providers Name Role Phone Ranjeet Rushing MD Primary Care Physician [facility] Date(s): 04/18/20 - 08/03/[address] [place], [place] [address] Attending Physician: Nigel Boyd MD Referring Physician: Ranjeet Rushing MD Allergies, Adverse [...] (PPV23) (oldterm)11 07/19/08 Given 1Result Comment: [05/28/2017] [facility]: [id number] History: [id number] Note: VIS GIVEN-DATED Admin Note: vis [id number] Note: VIS [id number] Note: VIS-[id number] [place] [facility] [id number] History: [facility] [id number] Comment: [10/17/2015] PER NICO AT [id number] Note: VIS [id number] Note: VIS GIVEN Medications 12 inch Grab [...] Maintenance, 05/05/20 14:02:00 EDT, Powder, [facility]/pharmacy #[id number], 2 puffs Inhalation Every 6 hours,PRN:as needed, 160.02, cm, 05/05/20 13:43:00 EDT, Height, 73.6, kg, 04/18/20 10:1... Start Date: 05/05/20 Status: Orderedalendronate 70 mg oral tablet 1 tablet, By Mouth, Every week, # 12 tablet, 0 Refills, Maintenance, 06/01/20 9:05:00 EDT, [facility]/pharmacy #[id number], 160.02, cm, 05/09/20 12:34:00 EDT, Height, 73.6, kg, 04/18/20 10:19:00 EDT, Dry Weight Start Date: 06/01/20 Status: Orderedallopurinol 300 mg oral tablet 300 mg, 1, tablet, By Mouth, Daily, # 90 tablet, Refills 0, Tot. Refills 0, Maintenance, 07/06/20 15:50:00 EST, Route to Pharmacy Electronically, [facility]/pharmacy #[id number], 160.02, cm, 07/03/20 14:54:00 EST, [...] 07/06/20 15:48:00 EST, Route to Pharmacy Electronically, [facility]/pharmacy #[id number], 160.02, cm, 07/03/20 14:54:00 EST,Height, [...] 3 Refills, Maintenance, 07/04/20 11:46:00 EST, Capsule, [facility]/pharmacy #0693, 160.02, cm, 07/03/20 14:54:00 EST, Height, 73.6, kg, 04/18/20 10:19:00 EDT, Dry Weight Start Date: 07/04/20 Status: Orderedmagnesium oxide 400 mg oral tablet 1 tablet = 400 mg, By Mouth, Daily, PER RAJNI CARDONA, # 90 tablet, 0 Refills, Maintenance, 06/28/20 12:11:00 EST, [facility]/pharmacy #[id number], 160.02, cm, 06/01/20 11:03:00 EDT, Height, 73.6, kg, 04/18/20 10:19:00 EDT, Dry Weight Start Date: 06/28/20 Status: OrderedMelatonin 3 mg oral tablet 1 tablet = 3 mg, By Mouth, Daily at bedtime, PRN for insomnia, [facility], # 90 tablet, 3 Refills, Maintenance, 04/24/20 9:53:00 EDT, Tablet, [facility]/pharmacy #[id number], 1 tablet [...] each, 5 Refills, Maintenance, 02/21/20 11:53:00 EDT, [facility]/pharmacy #0693, 301-350: 12 units, 351-400: 14 units, 401-450: 1... Start Date: 02/21/20 Status: OrderedoxyCODONE 5 mg oral capsule 1 capsule = 5 mg, By Mouth, Every 6 hours, PRN as needed for pain, 0 Refills, Maintenance, 06/01/20 11:12:00 EDT, Capsule, Partial fill upon patient request Start Date: 06/01/20 Status: OrderedPen [place], 31 G x 5 mm BD Ultra [...] 06/28/20 9:31:00 EST, Route to Pharmacy Electronically, [facility]/pharmacy #[id number], 160.02, cm, 06/01/20 11:03:00 EDT, Height, 73.6, kg, 04/18/20 10:19:00 EDT,... Start Date: 06/28/20 Status: Orderedspironolactone 100 mg oral tablet 1, tablet, By Mouth, Daily, # 30 tablet, Refills 2, Tot. Refills 2, Maintenance, 05/16/20 16:31:00 EDT, Route to Pharmacy Electronically, [facility]/pharmacy #[id number], 160.02, cm, 05/09/20 12:34:00 EDT, Height, 73.6, kg, 04/18/20 10:19:00 EDT, Dry Weight Start Date: 05/16/20 Status: OrderedtraMADol 50 mg oral tablet See Instructions, PRN Pain , Severe, 1-2 tablets by mouth every 6 hours Schedule follow visit, # 240tablet, 1 Refills, Soft Stop, 05/19/20 16:27:00 EDT, [facility]/pharmacy #[id number], 160.02, cm, 05/09/20 12:34:00 EDT, Height, [...] myelopathy(Confirmed) OA (osteoarthritis), Active cervical(Confirmed) Osteoporosis(Confirmed) Active *[facility] 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 Gume Mart Social History Social History Type Response Smoking Status Current some day smoker; Typ e: Cigarettes; Other: less than 1/2 pack a day; Tobacco use times per day: 1/2 pack a day; entered on: 02/19/17 Sex
--- OUTSIDE RECORDS SUMMARY | 2022-06-09 08:47 | XMS_ITS | Continuity of Care Document ---
:1950 Author Organization [facility] Adult Address [address] [place] [address]- Care Team Providers Name Role Phone Ranjeet Rushing MD Primary Care Physician Encounter [facility] Date(s): 06/19/21 - 06/26/21 [facility] [address] [place] [address]- Encounter Diagnosis Wound of right foot (Discharge Diagnosis) - 06/19/21 Diabetes mellitus - insulin (Discharge Diagnosis) - 06/19/21 Anxiety (Discharge Diagnosis) - 06/19/21 Attending Physician: Not on Staff, Attending MD Referring Physician: Ranjeet Rushing MD Allergies, [...] (PPV23) (oldterm)11 07/19/08 Given 1Result Comment: [05/28/2017] [facility]: [id number] History: [id number] Note: VIS GIVEN-DATED Admin Note: vis [id number] Note: VIS [id number] Note: VIS-[id number] History: [facility] [place] [id number] History: [facility] [id number] Comment: [10/17/2015] PER NICO AT [id number] Note: VIS [id number] Note: VIS GIVEN Medications 12 inch Grab [...] Maintenance, 05/05/20 14:02:00 EDT, Powder, [facility]/pharmacy #[id number], 2 puffs Inhalation Every 6 hours,PRN:as needed, 160.02, cm, 05/05/20 13:43:00 EDT, Height, 73.6, kg, 04/18/20 10:1... Start Date: 05/05/20 Status: Orderedalendronate 70 mg oral tablet 1 tablet, By Mouth, Every week, # 12 tablet, 6 Refills, Maintenance, 01/09/21 16:07:00 EDT, [facility], 160, cm, 12/25/20 14:20:00 EDT, Height, 77.5, kg, 10/05/20 14:31:00 EST, Dry Weight Start Date: 01/09/21 Status: Orderedallopurinol 300 mg oral tablet 300 mg, 1, tablet, By Mouth, Daily, # 90 tablet, Refills 1, Tot. Refills 1, Maintenance, 01/26/21 12:31:00 EDT, Route to Pharmacy Electronically, [facility]/pharmacy #[id number], 160, cm, 12/25/20 14:20:00 EDT, Height, [...] tablet, 5 Refills, Maintenance, 03/12/21 10:51:00 EDT, [facility] STORE [facility]20, 160, cm, 02/27/21 13:50:00 EDT, Height, 79.6, [...] 1 Refills, Maintenance, 02/08/21 9:52:00 EDT, Tablet, [facility]/pharmacy #[id number], 160, cm, 01/25/21 14:11:00 EDT, Height, [...] 02/06/21 9:05:00 EDT, Route to Pharmacy Electronically, [facility]/pharmacy #[id number], 160, cm, 01/25/21 14:11:00 EDT, Height, 77.5, kg, 10/05/20 14:31:00 EST, Dry Weight Start Date: 02/06/21 Stop Date: 08/05/21 Status: OrderedHumira 40 mg subcutaneous solution See Instructions, 40 mg [id number], 0 Refills, Maintenance, 10/23/20 13:46:00 EST, Partial fill upon patient request if the prescription is for a schedule II opioid drug. Start Date: 10/23/20 Status: OrderedLyrica 150 mg oral capsule 1 capsule = 150 mg, By Mouth, 2 times a day, DOSAGE INCREASE, # 60 capsule, 3 Refills, Maintenance, 01/23/21 14:56:00 EDT, Capsule, [facility]/pharmacy #[id number], 160, cm, 01/14/21 11:46:00 EDT, Height, 77.5, kg,10/05/20 14:31:00 EST, Dry Weight Start Date: 01/23/21 Status: Orderedmagnesium oxide 400 mg (240 mg elemental magnesium) oral tablet 1 tablet, By Mouth, Daily, # 90 tablet, 0 Refills, Acute, 09/20/20 12:20:00 EST, [facility] STORE [facility]89, 90, TAKE 1 TABLET BY MOUTH DAILY, 160, cm, 09/12/20 14:03:00 EST, Height, 71.3, kg, 08/08/20 7:00:00 EST, Dry Weight Start Date: 09/20/20 Status: Orderedmagnesium oxide 400 mg oral tablet 1 tablet = 400 mg, By Mouth, Daily, # 100 tablet, 2 Refills, Maintenance, 06/05/21 11:32:00 EDT, Tablet, [facility]/pharmacy #[id number], Partial fill upon patient request if [...] EDT, Injec... Start Date: 06/11/21 Status: OrderedPen [place], 31 G x 5 mm BD Ultra [...] 01/09/21 15:06:00 EDT, Route to Pharmacy Electronically, [facility]/pharmacy #[id number], 160, cm, 12/25/20 14:20:00 EDT, Height, 77.5, kg, 10/05/20 14:31:00 EST, Dr... Start Date: 01/09/21 Status: Orderedspironolactone 100 mg oral tablet 100 mg, 1, tablet, By Mouth, Daily, # 90 tablet, Refills 0, Tot. 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 Gume Mart Diagnosis Diagnosis Type Effective Dates Health Status Clinical In formant Service Wound of right Discharge 06/19/21 foot Diagnosis Diabetes Discharge 06/19/21 mellitus - Diagnosis insulin Anxiety Discharge 06/19/21 Diagnosis Vital Signs Most recent to oldest [Reference Range]: 1 Height 160 cm (06/19/21 1:57 PM) Social History Social History Type Response Tobacco Other: last cigarette 0. Sex
--- OUTSIDE RECORDS SUMMARY | 2022-06-09 08:47 | XMS_ITS | Continuity of Care Document ---
:1950 Author Organization [facility] Adult Address [address] [place] [address]- Care Team Providers Name Role Phone Ranjeet Rushing MD Primary Care Physician Encounter [facility] Date(s): 05/23/22 - 05/30/22 [facility] [address] [place] [address]- Attending Physician: Not on Staff, Attending MD Allergies, Adverse Reactions, Alerts Substance Reaction Severity Status Lac-Hydrin Active Ambien Active Benadryl Active Latex Active Immunizations Given and Recorded Vaccine Date Status Refusal Reason zoster vaccine, inactivated 05/21/22 Recorded zoster vaccine, inactivated 05/10/20 Recorded zoster vaccine, inactivated 03/30/18 Recorded zoster vaccine, inactivated 02/09/18 Recorded influenza virus vaccine, inactivated 05/21/22 Recorded influenza virus vaccine, inactivated 06/12/21 Recorded influenza [...] (COVID-19) mRNA BNT-162b2 vac 09/03/20 Recorde d Influenza Virus Vaccine (oldterm) 06/17/19 Recorded Influenza [...] (PPV23) (oldterm)11 07/19/08 Given 1Result Comment: [05/28/2017] [facility]: [id number] History: [id number] Note: VIS GIVEN-DATED Admin Note: vis [id number] Note: VIS [id number] Note: VIS-[id number] History: [facility] [place] [id number] History: [facility] [id number] Comment: [10/17/2015] PER NICO AT [id number] Note: VIS [id number] Note: VIS GIVEN Medications 12 inch Grab [...] 11 Refills, Maintenance, 05/07/22 16:00:00 EDT, Powder, [facility]/pharmacy #[id number], 2 puffs Inhalation Every 6 hours,PRN:as needed, 160, cm, 04/24/22 8:34:00 EDT, Height, 72.7, kg, 04/24/22 8:34:00... Start Date: 05/07/22 Status: Orderedalendronate 70 mg oral tablet 1 tablet, By Mouth, Every week, # 12 tablet, 1 Refills, [facility] STORE 75729, 160, cm, 01/17/22 14:38:00 EDT, Height, 74.8, kg, 11/01/21 15:05:00 EST, Dry Weight Start Date: 01/30/22 Status: Orderedallopurinol 300 mg oral tablet 1, tablet, By Mouth, Daily, # 90 tablet, Refills 0, Route to Pharmacy Electronically, [facility] STORE 6[facility]23, 160, cm, 02/21/22 15:11:00 EDT, Height, 74.8, kg, 11/01/21 15:05:00 EST, Dry Weight Start Date: 03/27/22 Status: OrderedBACK BRACE BACK BRACE, See Instructions, # 1 each, Refills 0, Tot. Refills 0, Maintenance, DX BACK PAIN M54.9 DANTE LIFETIME HT 5'3 WT 182 LB, 07/23/16 14:35:27, Compound Start Date: 07/23/16 Status: OrderedBD UF SHORT PEN NEEDLE [id number] BD UF SHORT PEN NEEDLE [id number], See Instructions, # 200 Unknown, 5 Refills, USE TO INJECT INSULIN TWICE A DAY, 160, cm, 11/27/21 14:08:00 EDT, Height, 74.8, kg, 11/01/21 15:05:00 EST, Dry Weight Start Date: 11/30/21 Status: OrderedCompression Stockings See Instructions, # 1 [...] Status: Ordered[facility]S VITAMIN D3 25 MCG SOFTGEL [facility] VITAMIN D3 25 MCG SOFTGEL, 1, capsule, By Mouth, Daily, # 90 capsule, 1 Refills, 160, cm, 10/16/21 14:42:00 EST, Height, 75, kg, 09/14/21 11:51:00 EST, Dry Weight Start Date: 10/17/21 Status: Orderedcyanocobalamin 500 mcg oral tablet 1 tablet = 500 mcg, By Mouth, Daily, # 90 tablet, 3 Refills, Maintenance, 04/12/22 16:02:00 EDT, Tablet, [facility]/pharmacy #[id number], 160, cm, 04/10/22 14:31:00 [...] 11/17/15 13:08:57 EDT Start Date: 11/17/15 Status: OrderedFLUoxetine 20 mg oral capsule 40 mg, 2, capsule, By Mouth, Daily, # 180 capsule, Refills 1, Tot. Refills 1, Maintenance, 05/23/22 13:56:00 EDT, Route to Pharmacy Electronically, [facility]/pharmacy #[id number], Partial fill upon patient requestif the prescription is for a schedule II opioid d... Start Date: 05/23/22 Status: OrderedFree Style ESDRAS 2 SENSORS Free [...] tablet, Refills 1, Route to Pharmacy Electronically, [facility], 160, cm, 02/21/22 15:11:00 EDT, Height, 74.8, kg, 11/01/21 15:05:00 EST, Dry Weight Start Date: 03/12/22 Status: OrderedLidoderm 5% film 1 patch, Topically, Daily, # 30 patch, 11 Refills, Maintenance, 12/28/21 15:03:00 EDT, [facility]/pharmacy #[id number], Partial fill upon patient request if the prescription is for a schedule II opioid drug., 1 patch Topically Daily,x30 days, 160, cm, 11/27/21 14:... Start Date: 12/28/21 Stop Date: 12/23/22 Status: OrderedLyrica 150 mg oral capsule 1 capsule = 150 mg, By Mouth, 2 times a day, DOSAGE INCREASE, # 60 capsule, 3 Refills, Maintenance, 03/26/22 10:58:00 EDT, Capsule, [facility]/pharmacy #[id number], 160, cm, 02/21/22 15:11:00 EDT, Height, 74.8, kg,11/01/21 15:05:00 EST, Dry Weight Start Date: 03/26/22 Status: Orderedmagnesium oxide 400 mg oral tablet 1 tablet, By Mouth, Daily, # 100 tablet, 2 Refills, [facility] ST[facility] 92105, 160, cm, 02/21/22 15:11:00 EDT,Height, 74.8, kg, 11/01/21 15:05:00 EST, Dry Weight Start Date: 03/28/22 Status: OrderedMelatonin 3 mg oral tablet 1 tablet = 3 mg, By Mouth, Daily at bedtime, PRN for insomnia, [facility], # 90 tablet, 3 Refills, Maintenance, 10/17/21 12:02:00 EST, Tablet, [facility]/pharmacy #[id number], 1 tablet By Mouth [...] II opioid drug. Start Date: 08/17/20 Status: Orderedmirtazapine 15 mg oral tablet 1 tablet = 15 mg, By Mouth, Daily at bedtime, # 90 tablet, 0 Refills, Maintenance, 05/23/22 13:55:00EDT, Tablet, [facility]/pharmacy #[id number], Partial fill upon patient request if the prescription is for a schedule II opioid drug., 160, cm, 05/17/22 9:55:00 ED... Start Date: 05/23/22 Status: OrderedMultivitamin 1 tablet, By Mouth, Daily, 0 Refills, Maintenance, 12/09/19 16:05:00 EDT Start Date: 12/09/19 Status: OrderedPen [place], 31 G x 5 mm BD Ultra [...] tablet, 0 Refills, Maintenance, 04/24/22 17:19:00EDT, Tablet, [facility]/pharmacy #[id number], Partial fill upon patient [...] 09/15/21 17:53:00 EST, Route to Pharmacy Electronically, [facility]/pharmacy #[id number], 160, cm, 09/14/21 11:51:00 [...] tablet, Refills 1, Route to Pharmacy Electronically, [facility] ST[facility] 66166, 160, cm, 11/27/21 14:08:00 EDT, Height, 74.8, kg, 11/01/21 15:05:00 EST, Dry Weight Start Date: 01/11/22 Status: OrderedtraMADol 50 mg oral tablet See Instructions, TAKE 1-2 TABLETS BY MOUTH EVERY 6 HOURS SCHEDULE FOLLOW VISIT, NEEDED FOR PAIN,# 240 tablet, 5 Refills, Maintenance, 01/17/22 11:33:00 EDT, [facility]/pharmacy #[id number], 160, cm, 11/27/21 14:08:00 EDT, Height, 74.8, kg, 11/01/21 15:05:00 E... Start Date: 01/17/22 Status: OrderedTransfer bench Transfer bench, See Instructions, # 1 each, Refills 0, Tot. Refills 0, Maintenance, use as directed.DX Unsteady gait. ICD 10 R26.81 length of need: Lifetime wt:162lbs ht 5'3, 07/07/20 11:31:00 EST, Supply Start Date: 07/07/20 Status: OrderedtraZODone 50 mg oral tablet 50 mg, 1, tablet, By Mouth, Daily at bedtime, # 30 tablet, Refills 0, Tot. Refills 0, Maintenance, 05/23/22 13:56:00 EDT, Route to Pharmacy Electronically, [facility]/pharmacy #[id number], Partial fill upon patientrequest if the prescription is for a schedule II... Start Date: 05/23/22 Status: OrderedTrelegy Ellipta 200 mcg-62.5 mcg-25 mcg/inh [...] 3 Refills, Maintenance, 04/19/21 11:35:00 EDT, Powder, [facility]/pharmacy #[id number], Partial fill upon patient [...] 11 Refills, Soft Stop, 07/26/21 11:05:00 EST, [facility]/pharmacy #[id number], 160, cm, 07/26/21 10:45:00 [...] Refills, Maintenance, 05/07/22 15:49:00 EDT, [facility], 160, cm, 04/24/22 8:34:00 EDT, Height, 72.7, [...] Date: 09/25/20 Status: Ordered Problem List Condition Confirmation Course Effective Dates Status Health I nformant Status Unsteady gait Confirmed Active Adenomatous polyp of Confirmed Active colon1 Carpal tunnel Confirmed 04/14/08 Active Recurrent cellulitis Confirmed Active of lower leg Cerebrovascular Confirmed Active disease2 Cervical disc disease Confirmed Active Cervical Confirmed Active radiculopathy at C6 Chronic edema Confirmed 04/14/08 Active Chronic intractable Confirmed 10/12/09 Active pain Chronic kidney Confirmed Active disease (CKD), stage III (moderate) COPD (chronic Confirmed Active obstructive pulmonary disease) Cigarette smoker Confirmed Active Decreased ROM of neck Confirmed Active Dementia3 Confirmed Active Diabetes mellitus - Confirmed 07/19/08 Active insulin4 Diabetic neuropathy Confirmed Active Current use of Confirmed Active insulin Nephropathy, diabetic Confirmed Active Difficulty sleeping Confirmed Active Essential tremor Confirmed Active Generalized anxiety Confirmed Active disorder Gout Confirmed Active History of fracture Confirmed Active of finger H/O urinary tract Confirmed 2009 Active infection with sepsis, proteus History of Confirmed Active nephrolithiasis HLD (hyperlipidemia) Confirmed Active Hypertension Confirmed Active 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 50-70% bilaterally.3Per MOCA done at [id number]'s nurse sane is [facility] and patient sees Dr. Gume Mart Vital Signs Most recent to oldest [Reference Range]: 1 Weight 74.8 kg (05/23/22 1:16 PM) Oxygen Saturation [94-100 %] 97 % (05/23/22 1:16 PM) Pulse Rate [55-90 bpm] 98 bpm *H* (05/23/22 1:16 PM) Blood Pressure [90-138/55-84 mm Hg] 136/64 mm Hg (05/23/22 1:16 PM) Respiratory Rate [16-30 br/min] 22 br/min (05/23/22 1:16 PM) Mode of Delivery (Oxygen) Room air (05/23/22 1:16 PM) Blood pressure sites Arm, left (05/23/22 1:16 PM) Weight Obtained Via Standing scale (05/23/22 1:16 PM) Social History Social History Type Response Smoking Status Former smoker, quit more mark n 30 days ago entered on: 09/28/21 Sex Patient Care team information PersonnelName: Kristan SUTTON, Ranjeet Beatty Address: Address: [address] [place] [id number]
--- OUTSIDE RECORDS SUMMARY | 2022-06-09 08:47 | XMS_ITS | Continuity of Care Document ---
:1950 Author Organization [facility] Address [address] [place] [address]- Care Team Providers Name Role Phone Ranjeet Rushing MD Primary Care Physician Encounter [facility] Date(s): 06/27/21 - 07/27/21 [facility] [address] [place] [address]- Attending Physician: Evans Brock Admitting Physician: Evans Brock Referring Physician: Evans Brock Referring Physician: Maryann Escudero Allergies, Adverse Reactions, Alerts Substance Reaction Severity [...] (PPV23) (oldterm)11 07/19/08 Given 1Result Comment: [05/28/2017] [facility]: [id number] History: [id number] Note: VIS GIVEN-DATED Admin Note: vis [id number] Note: VIS [id number] Note: VIS-[id number] History: [facility] [place] [id number] History: [facility] [id number] Comment: [10/17/2015] PER NICO AT [id number] Note: VIS [id number] Note: VIS GIVEN Medications 12 inch Grab [...] Refills, Maintenance, 05/05/20 14:02:00 EDT, Powder, [facility]/pharmacy #[id number], 2 puffs Inhalation Every 6 hours,PRN:as needed, 160.02, cm, 05/05/20 13:43:00 EDT, Height, 73.6, kg, 04/18/20 10:1... Start Date: 05/05/20 Status: Orderedalendronate 70 mg oral tablet 1 tablet, By Mouth, Every week, # 12 tablet, 6 Refills, Maintenance, 01/09/21 16:07:00 EDT, [facility] STORE 13935, 160, cm, 12/25/20 14:20:00 EDT, Height, 77.5, kg, 10/05/20 14:31:00 EST, Dry Weight Start Date: 01/09/21 Status: Orderedallopurinol 300 mg oral tablet 1, tablet, By Mouth, Daily, # 90 tablet, Refills 1, Route to Pharmacy Electronically, [facility], 160, cm, 06/19/21 13:57:00 EDT, Height, 77.27, [...] Refills, Maintenance, 03/12/21 10:51:00 EDT, [facility], 160, cm, 02/27/21 13:50:00 EDT, Height, 79.6, [...] 9:05:00 EDT, Route to Pharmacy Electronically, [facility]/pharmacy #[id number], 160, cm, 01/25/21 14:11:00 EDT, Height, 77.5, kg, 10/05/20 14:31:00 EST, Dry Weight Start Date: 02/06/21 Stop Date: 08/05/21 Status: OrderedLyrica 150 mg oral capsule 1 capsule = 150 mg, By Mouth, 2 times a day, DOSAGE INCREASE, # 60 capsule, 3 Refills, Maintenance, 07/09/21 14:12:00 EST, Capsule, [facility]/pharmacy #[id number], 160, cm, 06/19/21 13:57:00 EDT, Height, 77.27, kg, 03/24/21 20:58:00 EDT, Dry Weight Start Date: 07/09/21 Status: Orderedmagnesium oxide 400 mg (240 mg elemental magnesium) oral tablet 1 tablet, By Mouth, Daily, # 90 tablet, 0 Refills, Acute, 09/20/20 12:20:00 EST, [facility], 90, TAKE 1 TABLET BY MOUTH DAILY, 160, cm, 09/12/20 14:03:00 EST, Height, 71.3, kg, 08/08/20 7:00:00 EST, Dry Weight Start Date: 09/20/20 Status: Orderedmagnesium oxide 400 mg oral tablet 1 tablet = 400 mg, By Mouth, Daily, # 100 tablet, 2 Refills, Maintenance, 06/05/21 11:32:00 EDT, Tablet, [facility]/pharmacy #[id number], Partial fill upon patient request if the prescription is for a schedule II opioid drug., 160, cm, 05/21/21 11:03:00 EDT, Heigh... Start Date: 06/05/21 Status: OrderedMelatonin 3 mg oral tablet 1 tablet = 3 mg, By Mouth, Daily at bedtime, PRN for insomnia, [facility], # 90 tablet, 3 Refills, Maintenance, 04/24/20 9:53:00 EDT, Tablet, [facility]/pharmacy #[id number], 1 tablet By Mouth [...] EDT, Injec... Start Date: 06/11/21 Status: OrderedPen [place], 31 G x 5 mm BD Ultra [...] 01/09/21 15:06:00 EDT, Route to Pharmacy Electronically, [facility]/pharmacy #[id number], 160, cm, 12/25/20 14:20:00 EDT, Height, 77.5, kg, 10/05/20 14:31:00 EST, DrMillie. Start Date: 01/09/21 Status: Orderedspironolactone 100 mg oral tablet 100 mg, 1, tablet, By Mouth, Daily, # 90 tablet, Refills 1, Tot. Refills 1, Maintenance, 07/23/21 13:10:00 EST, Route to Pharmacy Electronically, [facility]/pharmacy #[id number], Partial fill upon patient request if the prescription is for a schedule II opioid thomas... Start Date: 07/23/21 Stop Date: 01/19/22 Status: OrderedtraMADol 50 mg oral tablet See Instructions, TAKE 1-2 TABLETS BY MOUTH EVERY 6 HOURS SCHEDULE FOLLOW VISIT, NEEDED FOR PAIN,# 240 tablet, 5 Refills, Maintenance, 05/31/21 9:52:00 EDT, [facility]/pharmacy #[id number], 160, cm, 05/21/21 11:03:00 EDT, Height, [...] Refills, Maintenance, 04/19/21 11:35:00 EDT, Powder, [facility]/pharmacy #[id number], Partial fill upon patient [...] 11 Refills, Soft Stop, 07/26/21 11:05:00 EST, [facility]/pharmacy #[id number], 160, cm, 07/26/21 10:45:00 EST, Height,77.27, [...] # 9 Unknown, 2 Refills, [facility], 160, cm, 06/19/21 13:57:00 EDT, Height, 77.27, [...] Active OA (osteoarthritis), Active cervical(Confirmed) Osteoporosis(Confirmed) Active *[facility] [phone] 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 and [facility] sees Dr. Gume Mart Social History Social History Type Response Tobacco Other: last cigarette 0. Sex
--- OUTSIDE RECORDS SUMMARY | 2022-06-09 08:47 | XMS_ITS | Continuity of Care Document ---
:1950 Author Organization [facility] Adult Address [address] [place] [address]- Care Team Providers Name Role Phone Kristan SUTTON, Ranjeet Beatty Primary Care Physician Encounter [facility] [place] Date(s): 11/13/21 - 11/20/21 [facility] Adult [address] [place] [address]- Attending Physician: Chari Grey NP Allergies, Adverse [...] (PPV23) (oldterm)11 07/19/08 Given 1Result Comment: [05/28/2017] [employer]: [id number] History: [id number] Note: VIS GIVEN-DATED Admin Note: vis [id number] Note: VIS [id number] Note: VIS-[id number] History: [facility] [place] [id number] History: [facility] [id number] Comment: [10/17/2015] PER NICO AT [id number] Note: VIS [id number] Note: VIS GIVEN Medications 12 inch Grab [...] 11 Refills, Maintenance, 05/05/20 14:02:00 EDT, Powder, [facility]/pharmacy #[id number], 2 puffs Inhalation Every 6 hours,PRN:as needed, 160.02, cm, 05/05/20 13:43:00 EDT, Height, 73.6, kg, 04/18/20 10:1... Start Date: 05/05/20 Status: Orderedalendronate 70 mg oral tablet 1 tablet, By Mouth, Every week, # 12 tablet, 6 Refills, Maintenance, 01/09/21 16:07:00 EDT, [facility], 160, cm, 12/25/20 14:20:00 EDT, Height, 77.5, kg, 10/05/20 14:31:00 EST, Dry Weight Start Date: 01/09/21 Status: Orderedallopurinol 300 mg oral tablet 1, tablet, By Mouth, Daily, # 90 tablet, Refills 1, Route to Pharmacy Electronically, [facility], 160, cm, 06/19/21 13:57:00 EDT, Height, 77.27, [...] tablet, 5 Refills, Maintenance, 08/30/21 7:54:00 EST, [facility]/pharmacy #[id number], 160, cm, [...] 1 Refills, Maintenance, 09/18/21 11:52:00 EST, Tablet, [facility]/pharmacy #0693, 160, cm, 09/14/21 [...] tablet, 1 Refills, Maintenance,11/13/21 15:13:00 EDT, Tablet, [facility]/pharmacy #0693, Partial fill [...] to Pharmacy Electronically, [facility], 160, cm, 10/15/21 15:03:00 EST, Height, 75, kg, 09/14/21 11:51:00 EST, Dry Weight Start Date: 10/16/21 Status: OrderedLyrica 150 mg oral capsule 1 capsule = 150 mg, By Mouth, 2 times a day, DOSAGE INCREASE, # 60 capsule, 3 Refills, Maintenance, 11/12/21 16:27:00 EDT, Capsule, [facility]/pharmacy #[id number], 160, cm, 11/01/21 15:12:00 EST, Height, 74.8, kg,11/01/21 15:05:00 EST, Dry Weight Start Date: 11/12/21 Status: Orderedmagnesium oxide 400 mg (240 mg elemental magnesium) oral tablet 1 tablet, By Mouth, Daily, # 90 tablet, 0 Refills, Acute, 09/20/20 12:20:00 EST, [facility], 90, TAKE 1 TABLET BY MOUTH DAILY, 160, cm, 09/12/20 14:03:00 EST, Height, 71.3, kg, 08/08/20 7:00:00 EST, Dry Weight Start Date: 09/20/20 Status: Orderedmagnesium oxide 400 mg oral tablet 1 tablet = 400 mg, By Mouth, Daily, # 100 tablet, 2 Refills, Maintenance, 06/05/21 11:32:00 EDT, Tablet, [facility]/pharmacy #[id number], Partial fill [...] EDT, Injec... 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 Gume Mart Vital Signs Most recent to oldest [Reference Range]: 1 Height 160 cm (11/13/21 2:55 PM) Weight 77.4 kg (11/13/21 2:55 PM) Oxygen Saturation [94-100 %] 98 % (11/13/21 2:55 PM) Pulse Rate [55-90 bpm] 87 bpm (11/13/21 2:55 PM) Body Mass Index [18.5-24.99] 30.23 *>HHI* (11/13/21 2:55 PM) Blood Pressure [90-138/55-84 mm Hg] 130/64 mm Hg (11/13/21 2:55 PM) Respiratory Rate [16-30 br/min] 16 br/min (11/13/21 2:55 PM) Mode of Delivery (Oxygen) Room air (11/13/21 2:55 PM) Blood pressure sites Arm, left (11/13/21 2:55 PM) Weight Obtained Via Standing scale (11/13/21 2:55 PM) Social History Social History Type Response Smoking Status Former smoker, quit more mark n 30 days ago entered on: 09/28/21 Sex
--- OUTSIDE RECORDS SUMMARY | 2022-06-09 08:47 | XMS_ITS | Continuity of Care Document ---
:1950 Author Organization [facility] Adult Address [address] [place] [address]- Care Team Providers Name Role Phone Aarti SUTTON, Jose Person Primary Care Physician Encounter [facility] Date(s): 07/11/20 - 08/10/20 [facility] Adult [address] [place] [address]- Allergies, Adverse Reactions, Alerts Substance Reaction Severity [...] Given 1Result Comment: [05/28/2017] [facility]: [id number] History: [id number] Note: VIS GIVEN-DATED Admin Note: vis [id number] Note: VIS [id number] Note: [id number] History: [facility] [id number] History: [facility] Isaac Comment: [10/17/2015] PER NICO AT [id number] Note: VIS [id number] Note: VIS GIVEN Medications 12 inch Grab [...] 11 Refills, Maintenance, 05/05/20 14:02:00 EDT, Powder, [facility]/pharmacy #[id number], 2 puffs Inhalation Every 6 hours,PRN:as needed, 160.02, cm, 05/05/20 13:43:00 EDT, Height, 73.6, kg, 04/18/20 10:1... Start Date: 05/05/20 Status: Orderedalendronate 70 mg oral tablet 1 tablet, By Mouth, Every week, # 12 tablet, 0 Refills, Maintenance, 06/01/20 9:05:00 EDT, [facility]/pharmacy #0693, 160.02, cm, 05/09/20 12:34:00 EDT, Height, 73.6, kg, 04/18/20 10:19:00 EDT, Dry Weight Start Date: 06/01/20 Status: Orderedallopurinol 300 mg oral tablet 300 mg, 1, tablet, By Mouth, Daily, # 90 tablet, Refills 0, Tot. Refills 0, Maintenance, 07/06/20 15:50:00 EST, Route to Pharmacy Electronically, [facility]/pharmacy #[id number], 160.02, cm, 07/03/20 14:54:00 EST, [...] 07/06/20 15:48:00 EST, Route to Pharmacy Electronically, [facility]/pharmacy #0693, 160.02, cm, 07/03/20 14:54:00 EST,Height, [...] 3 Refills, Maintenance, 07/04/20 11:46:00 EST, Capsule, [facility]/pharmacy #0693, 160.02, cm, 07/03/20 14:54:00 EST, Height, 73.6, kg, 04/18/20 10:19:00 EDT, Dry Weight Start Date: 07/04/20 Status: Orderedmagnesium oxide 400 mg oral tablet 1 tablet = 400 mg, By Mouth, Daily, PER RAJNI CARDONA, # 90 tablet, 0 Refills, Maintenance, 06/28/20 12:11:00 EST, [facility]/pharmacy #0693, 160.02, cm, 06/01/20 11:03:00 EDT, Height, 73.6, kg, 04/18/20 10:19:00 EDT, Dry Weight Start Date: 06/28/20 Status: OrderedMelatonin 3 mg oral tablet 1 tablet = 3 mg, By Mouth, Daily at bedtime, PRN for insomnia, [facility], # 90 tablet, 3 Refills, Maintenance, 04/24/20 9:53:00 EDT, Tablet, [facility]/pharmacy #[id number], 1 tablet By Mouth Daily [...] each, 5 Refills, Maintenance, 02/21/20 11:53:00 EDT, [facility]/pharmacy #0693, 301-350: 12 units, 351-400: 14 units, 401-450: 1... Start Date: 02/21/20 Status: OrderedoxyCODONE 5 mg oral capsule 1 capsule = 5 mg, By Mouth, Every 6 hours, PRN as needed for pain, 0 Refills, Maintenance, 06/01/20 11:12:00 EDT, Capsule, Partial fill upon patient request Start Date: 06/01/20 Status: OrderedPen [place], 31 G x 5 mm BD Ultra [...] 06/28/20 9:31:00 EST, Route to Pharmacy Electronically, [facility]/pharmacy #[id number], 160.02, cm, 06/01/20 11:03:00 EDT, Height, 73.6, kg, 04/18/20 10:19:00 EDT,... Start Date: 06/28/20 Status: Orderedspironolactone 100 mg oral tablet 1, tablet, By Mouth, Daily, # 30 tablet, Refills 2, Tot. Refills 2, Maintenance, 05/16/20 16:31:00 EDT, Route to Pharmacy Electronically, [facility]/pharmacy #[id number], 160.02, cm, 05/09/20 12:34:00 EDT, Height, 73.6, kg, 04/18/20 10:19:00 EDT, Dry Weight Start Date: 05/16/20 Status: OrderedtraMADol 50 mg oral tablet See Instructions, PRN Pain , Severe, 1-2 tablets by mouth every 6 hours Schedule follow visit, # 240tablet, 1 Refills, Soft Stop, 05/19/20 16:27:00 EDT, [facility]/pharmacy #[id number], 160.02, cm, 05/09/20 12:34:00 EDT, Height, [...] 5 Refills, Soft Stop, 12/16/19 15:45:00 EDT, [facility]/pharmacy #[id number], 160.02, cm, 11/02/19 15:34:00 EDT, Height, [...] myelopathy(Confirmed) OA (osteoarthritis), Active cervical(Confirmed) Osteoporosis(Confirmed) Active *[facility] [phone] 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 Gume Mart Social History Social History Type Response Tobacco Other: last cigarette 0. Sex
--- OUTSIDE RECORDS SUMMARY | 2022-06-09 08:47 | XMS_ITS | Continuity of Care Document ---
:1950 Author Organization [facility] Adult Address [address] [place] [address]- Care Team Providers Name Role Phone Aarti SUTTON, Jose Person Primary Care Physician Encounter [facility] Date(s): 07/19/20 - 08/18/20 [facility] Adult [address] [place] [address]- Allergies, Adverse Reactions, Alerts Substance Reaction Severity [...] 07/19/08 Given 1Result Comment: [05/28/2017] [facility]: [id number] History: [id number] Note: VIS GIVEN-DATED Admin Note: vis [id number] Note: VIS [id number] Note: [id number] History: [facility] [place] [id number] History: [facility] Isaac Comment: [10/17/2015] PER NICO AT [id number] Note: VIS [id number] Note: VIS GIVEN Medications 12 inch Grab [...] tablet, 0 Refills, Maintenance, 06/01/20 9:05:00 EDT, [facility]/pharmacy #[id number], 160.02, cm, 05/09/20 12:34:00 EDT, Height, 73.6, kg, 04/18/20 10:19:00 EDT, Dry Weight Start Date: 06/01/20 Status: Orderedallopurinol 300 mg oral tablet 300 mg, 1, tablet, By Mouth, Daily, # 90 tablet, Refills 0, Tot. Refills 0, Maintenance, 07/06/20 15:50:00 EST, Route to Pharmacy Electronically, [facility]/pharmacy #[id number], 160.02, cm, 07/03/20 14:54:00 EST, Height, 73.6, kg, 04/18/20 10:19:00 EDT, Dry Weight Start Date: 07/06/20 Stop Date: 10/04/20 Status: OrderedBACK BRACE BACK BRACE, See Instructions, # 1 each, Refills 0, Tot. Refills 0, Maintenance, DX BACK PAIN M54.9 DANTE LIFETIME HT 5'3 WT 182 LB, 07/23/16 14:35:27, Compound Start Date: 07/23/16 Status: OrderedCalamine Topical 1 applicator, Topically, 2 [...] 0 Refills, Maintenance, 02/11/20 13:33:00 EDT, Tablet, [facility]/pharmacy #[id number], 160.02, cm, 02/11/20 13:03:00 EDT, Height, [...] Start Date: 07/06/20 Stop Date: 10/04/20 Status: OrderedLyrica 150 mg oral capsule 1 [...] tablet, 0 Refills, Maintenance, 06/28/20 12:11:00 EST, [facility]/pharmacy #[id number], 160.02, cm, 06/01/20 [...] II opioid drug. Start Date: 08/17/20 Status: OrderedMiscellaneous Rx 1, tablet, By Mouth, Daily, # 90 tablet, 3 Refills, Maintenance, 01/21/20 7:53:00 EDT, 160.02, cm, 01/07/20 15:07:00 EDT, Height, 81.6, kg, 07/27/19 14:52:00 EST, Dry Weight Start Date: 01/21/20 Status: OrderedMultivitamin Daily, 0 Refills, Maintenance, 12/09/19 16:05:00 EDT Start Date: 12/09/19 Status: OrderedoxyCODONE 5 mg oral capsule 1 capsule = 5 mg, By Mouth, Every 6 hours, PRN as needed for pain, for 21 days, # 84 capsule, 0 Refills, Acute 09/07/20 11:36:00 EST, 08/17/20 11:36:00 EST, Capsule, Partial fill upon patient request if the prescription is for a schedule II opioid drug. Start Date: 08/17/20 Stop Date: 09/07/20 Status: OrderedPen [place], 31 G x 5 mm BD Ultra [...] 05/16/20 16:31:00 EDT, Route to Pharmacy Electronically, [facility]/pharmacy #[id number], 160.02, cm, 05/09/20 12:34:00 EDT, Height, 73.6, kg, 04/18/20 10:19:00 EDT, Dry Weight Start Date: 05/16/20 Status: Orderedthiamine 100 mg oral tablet 100 mg, 1, tablet, By Mouth, Daily, Refills 0, Maintenance, 08/17/20 11:34:00 EST, Partial fill uponpatient request if the prescription is for a schedule II opioid drug. Start Date: 08/17/20 Status: OrderedtiZANidine 4 mg oral tablet 2 mg, 0.5, tablet, By Mouth, Every 8 hours, PRN, Refills 0, Maintenance, Pain , Severe, 08/17/20 11:34:00 EST, Partial fill upon patient request if the prescription is for a schedule II opioid drug. Start Date: 08/17/20 Status: OrderedTransfer bench Transfer bench, See Instructions, [...] 14:27:13 EDT, Powder Start Date: 12/30/18 Status: OrderedTylenol 325 mg oral tablet 650 mg, 2, tablet, By Mouth, Every 6 hours, Refills 0, Maintenance, 08/17/20 11:28:00 EST, Partial fill upon patient request if the prescription is for a schedule II opioid drug. Start Date: 08/17/20 Status: OrderedVictoza 18 mg/3 mL subcutaneous solution See Instructions, INJECT 1.8 MG UNDER THE SKIN ONCE DAILY, # 9 Unknown, 5 Refills, 06/20/20 15:08:00EDT, [facility]/pharmacy #[id number], 160.02, cm, 06/01/20 11:03:00 EDT, Height, 73.6, kg, 04/18/20 10:19:00 EDT,Dry Weight Start Date: 06/20/20 Status: OrderedVitamin D3 1000 intl units oral capsule 1 capsule = 1,000 International_Units, By Mouth, Daily, # 90 capsule, 3 Refills, Maintenance, 10/20/19 9:16:00 EST, Capsule, [facility]/pharmacy #[id number], resent from 08/14, 160.02, cm, 09/29/19 [...] OA (osteoarthritis), Active cervical(Confirmed) Osteoporosis(Confirmed) Active *[facility] [phone] 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 50-70% bilaterally.3Patient's free lance model is [facility] and patient sees Dr. Gume Mart Social History Social History Type Response Tobacco Other: last cigarette 0. Sex
--- OUTSIDE RECORDS SUMMARY | 2022-06-09 08:47 | XMS_ITS | Continuity of Care Document ---
:1950 Author Organization [facility] Adult Address [address] [place] [address]- Care Team Providers Name Role Phone Ranjeet Rushing MD Primary Care Physician [place] [facility] [place] 01[place]24/22 [facility] Adult [address] [place] [address]- Attending Physician: Ranjeet Rushing MD Allergies, Adverse Reactions, [...] 1Result Comment: [05/28/2017] [facility]: [id number] History: [id number] Note: VIS GIVEN-DATED Admin Note: vis [id number] Note: VIS [id number] Note: VIS-[id number] History: [facility] [id number] History: [facility] [id number] Comment: [10/17/2015] PER NICO AT [id number] Note: VIS [id number] Note: VIS GIVEN Medications 12 inch Grab [...] Refills, Maintenance, 01/09/21 16:07:00 EDT, [facility], 160, cm, 12/25/20 14:20:00 EDT, Height, 77.5, kg, 10/05/20 14:31:00 EST, Dry Weight Start Date: 01/09/21 Status: Orderedallopurinol 300 mg oral tablet 1, tablet, By Mouth, Daily, # 90 tablet, Refills 0, Route to Pharmacy Electronically, [facility], 160, cm, 11/27/21 14:08:00 EDT, Height, 74.8, kg, 11/01/21 15:05:00 EST, Dry Weight Start Date: 12/30/21 Status: OrderedBACK BRACE BACK BRACE, See Instructions, # 1 each, Refills 0, Tot. Refills 0, Maintenance, DX BACK PAIN M54.9 DANTE LIFETIME HT 5'3 WT 182 LB, 07/23/16 14:35:27, Compound Start Date: 07/23/16 Status: OrderedBD UF SHORT PEN NEEDLE [id number] BD UF SHORT PEN NEEDLE [id number], See Instructions, # 200 Unknown, 5 Refills, USE TO INJECT INSULIN TWICE A DAY, 160, cm, 11/27/21 14:08:00 EDT, Height, 74.8, kg, 11/01/21 15:05:00 EST, Dry Weight Start Date: 11/30/21 Status: OrderedbuPROPion 300 mg/24 hours (XL) oral tablet, extended release 1 tablet, By Mouth, Daily, # 30 tablet, 5 Refills, Maintenance, 08/30/21 7:54:00 EST, [facility]/pharmacy #[id number], 160, cm, 07/26/21 10:45:00 [...] 90 tablet, 1 Refills, 01/17/22 15:05:00 EDT, [facility]/pharmacy #[id number], 160, cm, 01/17/22 14:38:00 EDT, Height, [...] 1, Route to Pharmacy Electronically, [facility], 160, cm, 10/15/21 15:03:00 EST, Height, 75, kg, 09/14/21 11:51:00 EST, Dry Weight Start Date: 10/16/21 Status: OrderedLidoderm 5% film 1 patch, Topically, Daily, # 30 patch, 11 Refills, Maintenance, 12/28/21 15:03:00 EDT, [facility]/pharmacy #0693, Partial fill [...] 3 Refills, Maintenance, 11/12/21 16:27:00 EDT, Capsule, [facility]/pharmacy #0693, 160, cm, 11/01/21 15:12:00 EST, Height, 74.8, kg,11/01/21 15:05:00 EST, Dry Weight Start Date: 11/12/21 Status: Orderedmagnesium oxide 400 mg (240 mg elemental magnesium) oral tablet 1 tablet, By Mouth, Daily, # 90 tablet, 0 Refills, Acute, 09/20/20 12:20:00 EST, [facility], 90, TAKE 1 TABLET BY MOUTH DAILY, 160, cm, 09/12/20 14:03:00 EST, Height, 71.3, kg, 08/08/20 7:00:00 EST, Dry Weight Start Date: 09/20/20 Status: Orderedmagnesium oxide 400 mg oral tablet 1 tablet = 400 mg, By Mouth, Daily, # 100 tablet, 2 Refills, Maintenance, 06/05/21 11:32:00 EDT, Tablet, [facility]/pharmacy #[id number], Partial fill upon patient request if the prescription is for a schedule II opioid drug., 160, cm, 05/21/21 11:03:00 EDT, [facility]... Start Date: 06/05/21 Status: OrderedMelatonin 3 mg oral tablet 1 tablet = 3 mg, By Mouth, Daily at bedtime, PRN for insomnia, [facility] brand, # 90 tablet, 3 Refills, Maintenance, 10/17/21 12:02:00 EST, Tablet, [facility]/pharmacy #0693, 1 tablet By Mouth [...] EDT, Injec... Start Date: 06/11/21 Status: OrderedPen [place], 31 G x 5 mm BD Ultra [...] 09/15/21 17:53:00 EST, Route to Pharmacy Electronically, [facility]/pharmacy #[id number], 160, cm, 09/14/21 11:51:00 [...] tablet, Refills 1, Route to Pharmacy Electronically, [facility], 160, cm, 11/27/21 14:08:00 EDT, Height, 74.8, kg, 11/01/21 15:05:00 EST, Dry Weight Start Date: 01/11/22 Status: OrderedtraMADol 50 mg oral tablet See Instructions, TAKE 1-2 TABLETS BY MOUTH EVERY 6 HOURS SCHEDULE FOLLOW VISIT, NEEDED FOR PAIN,# 240 tablet, 5 Refills, Maintenance, 01/17/22 11:33:00 EDT, [facility]/pharmacy #[id number], 160, cm, 11/27/21 14:08:00 EDT, Height, [...] # 9 Unknown, 5 Refills, [facility], 160, cm, 09/07/21 15:03:00 EST, Height, 77.27, [...] (osteoarthritis), Active cervical(Confirmed) Osteoporosis(Confirmed) Active *[facility] [phone] 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 50-70% bilaterally.3Patient's curing room supervisor is [facility] and patient sees Dr. Gume Mart Vital Signs Most recent to oldest [Reference Range]: 1 Height 160 cm (01/17/22 2:38 PM) Weight 78.2 kg (01/17/22 2:38 PM) Oxygen Saturation [94-100 %] 96 % (01/17/22 2:38 PM) Pulse Rate [55-90 bpm] 84 bpm (01/17/22 2:38 PM) Body Mass Index [18.5-24.99] 30.55 *>HHI* (01/17/22 2:38 PM) Blood Pressure [90-138/55-84 mm Hg] 106/62 mm Hg (01/17/22 2:38 PM) Respiratory Rate [16-30 br/min] 12 br/min *L* (01/17/22 2:38 PM) Mode of Delivery (Oxygen) Room air (01/17/22 2:38 PM) Blood pressure sites Arm, right (01/17/22 2:38 PM) Weight Obtained Via Standing scale (01/17/22 2:38 PM) Social History Social History Type Response Smoking Status Former smoker, quit more mark n 30 days ago entered on: 09/28/21 Sex
--- OUTSIDE RECORDS SUMMARY | 2022-06-09 08:47 | XMS_ITS | Continuity of Care Document ---
:1950 Author Organization [facility] Adult Address [address] [place] [address]- Care Team Providers Name Role Phone Aarti SUTTON, Jose Person Primary Care Physician Encounter [facility] Date(s): 07/24/20 - 08/23/20 [facility] [address] [place] [address]- Attending Physician: Admtr, Ye8 Admitting Physician: Admtr, Ar8 Referring Physician: Admtr, [...] 07/19/08 Given 1Result Comment: [05/28/2017] [facility]: [id number] History: [id number] Note: VIS GIVEN-DATED Admin Note: vis [id number] Note: VIS [id number] Note: VIS-[id number] History: [facility] [id number] History: [facility] Gray Comment: [10/17/2015] PER NICO AT [id number] Note: VIS [id number] Note: VIS GIVEN Medications 12 inch Grab [...] Refills, Maintenance, 05/05/20 14:02:00 EDT, Powder, [facility]/pharmacy #[id number], 2 puffs Inhalation Every 6 hours,PRN:as needed, 160.02, cm, 05/05/20 13:43:00 EDT, Height, 73.6, kg, 04/18/20 10:1... Start Date: 05/05/20 Status: Orderedalendronate 70 mg oral tablet 1 tablet, By Mouth, Every week, # 12 tablet, 0 Refills, Maintenance, 06/01/20 9:05:00 EDT, [facility]/pharmacy #[id number], 160.02, cm, 05/09/20 12:34:00 EDT, Height, 73.6, kg, 04/18/20 10:19:00 EDT, Dry Weight Start Date: 06/01/20 Status: Orderedallopurinol 300 mg oral tablet 300 mg, 1, tablet, By Mouth, Daily, # 90 tablet, Refills 0, Tot. Refills 0, Maintenance, 07/06/20 15:50:00 EST, Route to Pharmacy Electronically, [facility]/pharmacy #[id number], 160.02, cm, 07/03/20 14:54:00 EST, Height, [...] TAKE 1 CAPSULE BY MOUTH EVERY DAY, [facility]/pharmacy #[id number] Start Date: 04/20/19 Status: Orderedcyanocobalamin 500 mcg oral tablet 1 tablet = 500 mcg, By Mouth, Daily, # 90 tablet, 0 Refills, Maintenance, 02/11/20 13:33:00 EDT, Tablet, [facility]/pharmacy #0693, 160.02, cm, 02/11/20 13:03:00 EDT, Height, [...] 15:48:00 EST, Route to Pharmacy Electronically, [facility]/pharmacy #0693, 160.02, cm, 07/03/20 14:54:00 EST,Height, 73.6, kg, 04/18/20 10:19:00 EDT, Dry Weight Start Date: 07/06/20 Stop Date: 10/04/20 Status: OrderedLyrica 150 mg oral capsule 1 capsule = 150 mg, By Mouth, 2 times a day, DOSAGE INCREASE, # 60 capsule, 3 Refills, Maintenance, 07/04/20 11:46:00 EST, Capsule, [facility]/pharmacy #[id number], 160.02, cm, 07/03/20 14:54:00 EST, Height, 73.6, kg, 04/18/20 10:19:00 EDT, Dry Weight Start Date: 07/04/20 Status: Orderedmagnesium oxide 400 mg oral tablet 1 tablet = 400 mg, By Mouth, Daily, PER RAJIN CARDONA, # 90 tablet, 0 Refills, Maintenance, 06/28/20 12:11:00 EST, [facility]/pharmacy #0693, 160.02, cm, 06/01/20 11:03:00 EDT, Height, 73.6, kg, 04/18/20 10:19:00 EDT, Dry Weight Start Date: 06/28/20 Status: OrderedMelatonin 3 mg oral tablet 1 tablet = 3 mg, By Mouth, Daily at bedtime, PRN for insomnia, [facility], # 90 tablet, 3 Refills, Maintenance, 04/24/20 9:53:00 EDT, Tablet, [facility]/pharmacy #[id number], 1 tablet By Mouth Daily at [...] Date: 08/17/20 Stop Date: 09/07/20 Status: OrderedPen [place], 31 G x 5 mm BD Ultra [...] 9:31:00 EST, Route to Pharmacy Electronically, [facility]/pharmacy #[id number], 160.02, cm, 06/01/20 11:03:00 EDT, Height, 73.6, kg, 04/18/20 10:19:00 EDT,... Start Date: 06/28/20 Status: Orderedspironolactone 100 mg oral tablet 1, tablet, By Mouth, Daily, # 30 tablet, Refills 2, Tot. 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 50-70% bilaterally.3Patient's senior cobol developer is [facility] and patient sees Dr. Gume Mart Social History Social History Type Response Tobacco Other: last cigarette 0. Sex
--- OUTSIDE RECORDS SUMMARY | 2022-06-09 08:47 | XMS_ITS | Continuity of Care Document ---
:1950 Author Organization [facility] Adult Address [address] [place] [address]- Care Team Providers Name Role Phone Ranjeet Rushing MD Primary Care Physician [place] [facility] Date(s): 01/25/21 - 02/01/21 [facility] [address] [place] [address]- Attending Physician: Chari Grey NP Referring Physician: Ranjeet Rusihng MD Allergies, Adverse Reactions, Alerts Substance Reaction [...] 07/19/08 Given 1Result Comment: [05/28/2017] [facility]: [id number] History: [id number] Note: VIS GIVEN-DATED Admin Note: vis [id number] Note: VIS [id number] Note: VIS-[id number] History: [facility] [id number] History: [facility] [id number] Comment: [10/17/2015] PER NICO AT [id number] Note: VIS [id number] Note: VIS GIVEN Medications 12 inch Grab Bars 12 inch Grab Bars, See Instructions, # 2 each, Refills 0, Tot. Refills 0, Maintenance, Grab bars : Length 12inches Use as directed DX Unsteady Gait ICD10 R26.81 HT: 5'3 Weight 162lbs Length of need Lifetime, 07/07/20 11:45:00 EST, Supply Start Date: 07/07/20 Status: [facility], See Instructions, # 1 each, Refills 0, Tot. Refills 0, Maintenance, FAX [phone] ADMIT TO CARE HOME, PT, OT. 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 DIAGNOSIS: Cervical radiculopathy at [...] 16:07:00 EDT, [facility] STORE [address], 160, cm, 12/25/20 14:20:00 EDT, Height, 77.5, [...] 1 Refills, Maintenance, 09/28/20 11:53:00 EST, Tablet, [facility]/pharmacy #0693, 160, cm, 09/12/20 14:03:00 EST, Height, [...] 07/06/20 15:48:00 EST, Route to Pharmacy Electronically, [facility]/pharmacy #0693, 160.02, cm, 07/03/20 14:54:00 EST,Height, 73.6, kg, 04/18/20 10:19:00 EDT, Dry Weight Start Date: 07/06/20 Stop Date: 10/04/20 Status: OrderedHumira 40 mg subcutaneous solution See Instructions, 40 mg [id number], 0 Refills, Maintenance, 10/23/20 13:46:00 EST, Partial [...] 12:20:00 EST, [facility] STORE [address], 90, TAKE 1 TABLET BY MOUTH DAILY, 160, cm, 09/12/20 14:03:00 EST, Height, 71.3, kg, 08/08/20 7:00:00 EST, Dry Weight Start Date: 09/20/20 Status: OrderedMelatonin 3 mg oral tablet 1 tablet = 3 mg, By Mouth, Daily at bedtime, PRN for insomnia, [facility] brand, # 90 tablet, 3 Refills, Maintenance, 04/24/20 9:53:00 EDT, Tablet, [facility]/pharmacy #[id number], 1 tablet By Mouth Daily at bedtime,PRN:for insomnia,Instr:[facility] brand, 160.02, cm, 04/18/20... Start Date: 04/24/20 [...] if th... Start Date: 08/30/20 Status: OrderedPen [place], 31 G x 5 mm BD Ultra [...] 1 Refills, Soft Stop, 01/25/21 16:45:00 EDT, [facility]/pharmacy #[id number], 160, cm, [...] 1 Refills, Maintenance, 09/25/20 7:44:00 EST, Capsule, [facility]/pharmacy #0693, resent from 08/14, 160, cm, 09/12/20 14:03:00 EST, Height, 71.3, kg, 08/08/20 7:00:00 EST, Dry Weight Start Date: 09/25/20 Status: OrderedWellbutrin XL 300 mg/24 hours oral tablet, extended release 1 tablet = 300 mg, By Mouth, Daily, DOSAGE INCREASE, # 30 tablet, 5 Refills, Maintenance, 07/03/20 15:20:00 EST, ER Tablet, [facility]/pharmacy #0693, 160.02, cm, 07/03/20 14:54:00 EST, Height, 73.6, kg, 04/18/20 10:19:00 EDT, Dry Weight Start Date: 07/03/20 Status: OrderedZofran 8 mg oral tablet 1 tablet = 8 mg, By Mouth, 3 times a day, # 9 tablet, 0 Refills, Acute 02/08/21 0:00:00 EDT, 01/25/21 15:07:00 EDT, Tablet, [facility]/pharmacy #[id number], Partial fill upon patient request if the prescription is for a schedule II opioid drug., 160, cm, 01/25/21... 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 50-70% bilaterally.3Patient's back order clerk is [facility] and patient sees Dr. Gume Mart Vital Signs Most recent to oldest [Reference Range]: 1 Height 160 cm (01/25/21 2:11 PM) Weight 74.4 kg (01/25/21 2:11 PM) Oxygen Saturation [94-100 %] 95 % (01/25/21 2:11 PM) Pulse Rate [55-90 bpm] 99 bpm *H* (01/25/21 2:11 PM) Body Mass Index [18.5-24.99] 29.06 *H* (01/25/21 2:11 PM) Blood Pressure [90-138/55-84 mm Hg] 112/62 mm Hg (01/25/21 2:11 PM) Respiratory Rate [16-30 br/min] 18 br/min (01/25/21 2:11 PM) Temperature [96.8-100.4 DegF] 98.0 DegF (01/25/21 2:11 PM) Mode of Delivery (Oxygen) Room air (01/25/21 2:11 PM) Blood pressure sites Arm, right (01/25/21 2:11 PM) Temperature Route Oral (01/25/21 2:11 PM) Weight Obtained Via Standing scale (01/25/21 2:11 PM) Social History Social History Type Response Tobacco Other: last cigarette 0. Sex
--- OUTSIDE RECORDS SUMMARY | 2022-06-09 08:47 | XMS_ITS | Continuity of Care Document ---
:1950 Author Organization [facility] Adult Address [address] [place] [address]- Care Team Providers Name Role Phone Ranjeet Rushing MD Primary Care Physician Encounter [facility] Date(s): 04/23/22 - 05/23/22 [facility] Adult [address] [place] [address]- Allergies, Adverse Reactions, Alerts Substance Reaction Severity [...] 07/19/08 Given 1Result Comment: [05/28/2017] [facility]: [id number] History: [id number] Note: VIS GIVEN-DATED Admin Note: vis [id number] Note: VIS igkxa5Sljfv Note: VIS-YZTPW5Wzcuvfpa History: [facility] [id number] History: [facility] [id number] Comment: [10/17/2015] PER NICO AT [id number] Note: VIS [id number] Note: VIS GIVEN Medications 12 inch Grab [...] 11 Refills, Maintenance, 05/07/22 16:00:00 EDT, Powder, [facility]/pharmacy #[id number], 2 puffs Inhalation Every 6 hours,PRN:as needed, 160, cm, 04/24/22 8:34:00 EDT, Height, 72.7, kg, 04/24/22 8:34:00... Start Date: 05/07/22 Status: Orderedalendronate 70 mg oral tablet 1 tablet, By Mouth, Every week, # 12 tablet, 1 Refills, [facility] STORE [facility]68, 160, cm, 01/17/22 14:38:00 EDT, Height, 74.8, kg, 11/01/21 15:05:00 EST, Dry Weight Start Date: 01/30/22 Status: Orderedallopurinol 300 mg oral tablet 1, tablet, By Mouth, Daily, # 90 tablet, Refills 0, Route to Pharmacy Electronically, [facility], 160, cm, 02/21/22 15:11:00 EDT, Height, 74.8, kg, 11/01/21 15:05:00 EST, Dry Weight Start Date: 03/27/22 Status: OrderedBACK BRACE BACK BRACE, See Instructions, # 1 each, Refills 0, Tot. Refills 0, Maintenance, DX BACK PAIN M54.9 DANTE LIFETIME HT 5'3 WT 182 LB, 07/23/16 14:35:27, Compound Start Date: 07/23/16 Status: OrderedBD UF SHORT PEN NEEDLE [id number] BD UF SHORT PEN NEEDLE [id number], See Instructions, # 200 Unknown, 5 Refills, [...] Status: [facility] VITAMIN D3 25 MCG SOFTGEL [facility] VITAMIN D3 25 MCG SOFTGEL, 1, capsule, By Mouth, Daily, # 90 capsule, 1 Refills, 160, cm, 10/16/21 14:42:00 EST, Height, 75, kg, 09/14/21 11:51:00 EST, Dry Weight Start Date: 10/17/21 Status: Orderedcyanocobalamin 500 mcg oral tablet 1 tablet = 500 mcg, By Mouth, Daily, # 90 tablet, 3 Refills, Maintenance, 04/12/22 16:02:00 EDT, Tablet, [facility]/pharmacy #0693, 160, cm, 04/10/22 14:31:00 [...] 05/23/22 13:56:00 EDT, Route to Pharmacy Electronically, [facility]/pharmacy #[id number], Partial fill upon patient [...] tablet, Refills 1, Route to Pharmacy Electronically, [facility] STORE [facility], 160, cm, 02/21/22 15:11:00 EDT, Height, 74.8, kg, 11/01/21 15:05:00 EST, Dry Weight Start Date: 03/12/22 Status: OrderedLidoderm 5% film 1 patch, Topically, Daily, # 30 patch, 11 Refills, Maintenance, 12/28/21 15:03:00 EDT, [facility]/pharmacy #0693, Partial fill upon patient request if the prescription is for a schedule II opioid drug., 1 patch Topically Daily,x30 days, 160, cm, 11/27/21 14:... Start Date: 12/28/21 Stop Date: 12/23/22 Status: OrderedLyrica 150 mg oral capsule 1 capsule = 150 mg, By Mouth, 2 times a day, DOSAGE INCREASE, # 60 capsule, 3 Refills, Maintenance, 03/26/22 10:58:00 EDT, Capsule, [facility]/pharmacy #0693, 160, cm, 02/21/22 15:11:00 EDT, Height, 74.8, kg,11/01/21 15:05:00 EST, Dry Weight Start Date: 03/26/22 Status: Orderedmagnesium oxide 400 mg oral tablet 1 tablet, By Mouth, Daily, # 100 tablet, 2 Refills, [facility] STORE 03091, 160, cm, 02/21/22 15:11:00 EDT,Height, 74.8, kg, 11/01/21 15:05:00 EST, Dry Weight Start Date: 03/28/22 Status: OrderedMelatonin 3 mg oral tablet 1 tablet = 3 mg, By Mouth, Daily at bedtime, PRN for insomnia, [facility], # 90 tablet, 3 Refills, Maintenance, 10/17/21 12:02:00 EST, Tablet, [facility]/pharmacy #0693, 1 tablet By Mouth [...] tablet, 0 Refills, Maintenance, 05/23/22 13:55:00EDT, Tablet, [facility]/pharmacy #0693, Partial fill upon patient request if the prescription is for a schedule II opioid drug., 160, cm, 05/17/22 9:55:00 ED... Start Date: 05/23/22 Status: OrderedMultivitamin 1 tablet, By Mouth, Daily, 0 Refills, Maintenance, 12/09/19 16:05:00 EDT Start Date: 12/09/19 Status: OrderedPen [place], 31 G x 5 mm BD Ultra [...] tablet, 0 Refills, Maintenance, 04/24/22 17:19:00EDT, Tablet, [facility]/pharmacy #0693, Partial fill upon patient [...] 09/15/21 17:53:00 EST, Route to Pharmacy Electronically, [facility]/pharmacy #0693, 160, cm, 09/14/21 11:51:00 [...] tablet, Refills 1, Route to Pharmacy Electronically, [facility] STORE 65548, 160, cm, 11/27/21 14:08:00 EDT, Height, 74.8, kg, 11/01/21 15:05:00 EST, Dry Weight Start Date: 01/11/22 Status: OrderedtraMADol 50 mg oral tablet See Instructions, TAKE 1-2 TABLETS BY MOUTH EVERY 6 HOURS SCHEDULE FOLLOW VISIT, NEEDED FOR PAIN,# 240 tablet, 5 Refills, Maintenance, 01/17/22 11:33:00 EDT, [facility]/pharmacy #0693, 160, cm, 11/27/21 14:08:00 [...] 05/23/22 13:56:00 EDT, Route to Pharmacy Electronically, [facility]/pharmacy #0693, Partial fill upon patientrequest [...] 3 Refills, Maintenance, 04/19/21 11:35:00 EDT, Powder, [facility]/pharmacy #0693, Partial fill upon patient [...] 11 Refills, Soft Stop, 07/26/21 11:05:00 EST, [facility]/pharmacy #0693, 160, cm, 07/26/21 10:45:00 [...] Mouth, Every 6 hours, Refills 0, Maintenance, 12/24/20 11:28:00 EST, Partial fill upon patient request if the prescription is for a schedule II opioid drug. 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 50-70% bilaterally.3Per MOCA done at QSN8Hgwusym's apple thinner is [facility] and [facility] Dr. Gume Mart Social History Social History Type Response Smoking Status Former smoker, quit more mark n 30 days ago entered on: 09/28/21 Sex Patient Care team information PersonnelName: Kristan SUTTON, Ranjeet Beatty Address: Address: [address] [place] [id number]
--- OUTSIDE RECORDS SUMMARY | 2022-06-09 08:47 | XMS_ITS | Continuity of Care Document ---
:1950 Author Organization [facility] Adult Address [address] [place] [address]- Care Team Providers Name Role Phone Kristan SUTTON, Ranjeet Beatty Primary Care Physician Encounter [facility] Date(s): 10/10/20 - 11/09/20 [facility] Adult [address] [place] [address]- Allergies, Adverse Reactions, Alerts Substance Reaction Severity [...] (PPV23) (oldterm)11 07/19/08 Given 1Result Comment: [05/28/2017] [facility]: [id number] History: [id number] Note: VIS GIVEN-DATED Admin Note: vis [id number] Note: VIS qkthz7Wslqz Note: VIS-[id number] History: [facility] [id number] History: [facility] Gray Comment: [10/17/2015] PER NICO AT [id number] Note: VIS [id number] Note: VIS GIVEN Medications 12 inch Grab Bars 12 inch Grab Bars, See Instructions, # 2 each, Refills 0, Tot. Refills 0, Maintenance, Grab bars : Length 12inches Use as directed DX Unsteady Gait ICD10 R26.81 HT: 5'3 Weight 162lbs Length of need Lifetime, 07/07/20 11:45:00 EST, Supply Start Date: 07/07/20 Status: [facility] AD[facility] TO [facility], See Instructions, # 1 each, Refills 0, Tot. Refills 0, Maintenance, FAX [phone] ADMIT TO INTERMEDIATE, PT, OT. HAND TUFTER AND FULFILLMENT COORDINATOR IF NEEDED DIAGNOSIS: Cervical radiculopathy at C6 , DIABETES, ANKLE FRACTURE... Start Date: 10/17/20 Status: Orderedalbuterol 90 mcg/inh inhalation powder 2 puffs, Inhalation, Every 6 hours, PRN as needed, # 1 each, 11 Refills, Maintenance, 05/05/20 14:02:00 EDT, Powder, [facility]/pharmacy #0693, 2 puffs Inhalation Every 6 hours,PRN:as needed, 160.02, cm, 05/05/20 13:43:00 EDT, Height, 73.6, kg, 04/18/20 10:1... Start Date: 05/05/20 Status: Orderedalendronate 70 mg oral tablet 1 tablet, By Mouth, Every week, # 12 tablet, 0 Refills, Maintenance, 10/30/20 7:29:00 EST, [facility] [id number], 160, cm, 10/20/20 15:01:00 EST, Height, 77.5, kg, 10/05/20 14:31:00 EST, Dry Weight Start Date: 10/30/20 Status: Orderedallopurinol 300 mg oral tablet 300 mg, 1, tablet, By Mouth, Daily, # 90 tablet, Refills 0, Tot. Refills 0, Maintenance, 10/28/20 12:31:00 EST, Route to Pharmacy Electronically, [facility]/pharmacy #[id number], 160, cm, 10/20/20 15:01:00 EST, [...] 1 Refills, Maintenance, 09/28/20 11:53:00 EST, Tablet, [facility]/pharmacy #0693, 160, cm, 09/12/20 14:03:00 EST, [...] 07/06/20 15:48:00 EST, Route to Pharmacy Electronically, [facility]/pharmacy #0693, 160.02, cm, 07/03/20 14:54:00 EST,Height, 73.6, kg, 04/18/20 10:19:00 EDT, Dry Weight Start Date: 07/06/20 Stop Date: 10/04/20 Status: OrderedHumira 40 mg subcutaneous solution See Instructions, 40 mg [id number], 0 Refills, Maintenance, 10/23/20 13:46:00 EST, Partial fill upon patient request if the prescription is for a schedule II opioid drug. Start Date: 10/23/20 Status: OrderedLyrica 150 mg oral capsule 1 capsule = 150 mg, By Mouth, 2 times a day, DOSAGE INCREASE, # 60 capsule, 3 Refills, Maintenance, 07/04/20 11:46:00 EST, Capsule, [facility]/pharmacy #0693, 160.02, cm, 07/03/20 14:54:00 EST, Height, 73.6, kg, 04/18/20 10:19:00 EDT, Dry Weight Start Date: 07/04/20 Status: Orderedmagnesium oxide 400 mg (240 mg elemental magnesium) oral tablet 1 tablet, By Mouth, Daily, # 90 tablet, 0 Refills, Acute, 09/20/20 12:20:00 EST, [facility] STORE [address], 90, TAKE 1 TABLET BY MOUTH DAILY, 160, cm, 09/12/20 14:03:00 EST, Height, 71.3, kg, 08/08/20 7:00:00 EST, Dry Weight Start Date: 09/20/20 Status: OrderedMelatonin 3 mg oral tablet 1 tablet = 3 mg, By Mouth, Daily at bedtime, PRN for insomnia, [facility], # 90 tablet, 3 Refills, Maintenance, 04/24/20 9:53:00 EDT, Tablet, [facility]/pharmacy #0693, 1 tablet By Mouth Daily at bedtime,PRN:for insomnia,Instr:[employer] brand, 160.02, cm, 04/18/20... Start Date: 04/24/20 [...] if th... Start Date: 08/30/20 Status: OrderedPen [place], 31 G x 5 mm BD Ultra [...] 06/28/20 9:31:00 EST, Route to Pharmacy Electronically, [facility]/pharmacy #0693, 160.02, cm, 06/01/20 11:03:00 EDT, [...] # 9 Unknown, 5 Refills, 06/20/20 15:08:00EDT, [facility]/pharmacy #0693, 160.02, cm, 06/01/20 11:03:00 EDT, [...] Refills, Maintenance, 07/03/20 15:20:00 EST, ER Tablet, [facility]/pharmacy #0693, 160.02, cm, 07/03/20 14:54:00 EST, Height, 73.6, kg, 04/18/20 10:19:00 EDT, Dry Weight Start Date: 07/03/20 Status: OrderedZoloft 50 mg oral tablet 1 tablet = 50 mg, By Mouth, Daily, DOSAGE INCREASE, # 30 tablet, 0 Refills, Maintenance, 10/30/20 17:12:00 EST, Tablet, [facility]/pharmacy #0693, Partial fill upon patient request [...] *[facility] [phone] 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 50-70% bilaterally.3Patient's umbrella cutter is [facility] and patient sees Dr. Gume Mart Social History Social History Type Response Tobacco Other: last cigarette 0. Sex
--- OUTSIDE RECORDS SUMMARY | 2022-06-09 08:47 | XMS_ITS | Continuity of Care Document ---
:1950 Author Organization [facility] Adult Address [address] [place] [address]- Care Team Providers Name Role Phone Ranjeet Rushing MD Primary Care Physician [facility] Date[facility]s): 01/15/21 - 02/14/21 [facility] [address] [place] [address]- Allergies, Adverse Reactions, Alerts Substance Reaction Severity [...] 07/19/08 Given 1Result Comment: [05/28/2017] [facility]: [id number] History: [id number] Note: VIS GIVEN-DATED Admin Note: vis [id number] Note: VIS blzwo7Qvkss Note: VIS-CISGQ2Xqujhkcm History: [facility] [id number] History: [facility] [id number] Comment: [10/17/2015] PER NICO AT [id number] Note: VIS [id number] Note: VIS GIVEN Medications 12 inch Grab Bars 12 inch Grab Bars, See Instructions, # 2 each, Refills 0, Tot. Refills 0, Maintenance, Grab bars : Length 12inches Use as directed DX Unsteady Gait ICD10 R26.81 HT: 5'3 Weight 162lbs Length of need Lifetime, 07/07/20 11:45:00 EST, Supply Start Date: 07/07/20 Status: [facility] AD[facility], See Instructions, # 1 each, Refills 0, Tot. Refills 0, Maintenance, FAX [phone] ADMIT TO [facility], PT, OT. TESTER WASTE DISPOSAL LEAKAGE AND STAVE MILL HAND IF NEEDED DIAGNOSIS: Cervical radiculopathy at C6 , DIABETES, ANKLE FRACTURE... Start Date: 10/17/20 Status: Orderedalbuterol 90 mcg/inh inhalation powder 2 puffs, Inhalation, Every 6 hours, PRN as needed, # 1 each, 11 Refills, Maintenance, 05/05/20 14:02:00 EDT, Powder, [facility]/pharmacy #[id number], 2 puffs Inhalation Every 6 hours,PRN:as needed, 160.02, cm, 05/05/20 13:43:00 EDT, Height, 73.6, kg, 04/18/20 10:1... Start Date: 05/05/20 Status: Orderedalendronate 70 mg oral tablet 1 tablet, By Mouth, Every week, # 12 tablet, 6 Refills, Maintenance, 01/09/21 16:07:00 EDT, [facility] STORE [facility], 160, cm, 12/25/20 14:20:00 EDT, Height, 77.5, kg, 10/05/20 14:31:00 EST, Dry Weight Start Date: 01/09/21 Status: Orderedallopurinol 300 mg oral tablet 300 mg, 1, tablet, By Mouth, Daily, # 90 tablet, Refills 1, Tot. Refills 1, Maintenance, 01/26/21 12:31:00 EDT, Route to Pharmacy Electronically, [facility]/pharmacy #0693, 160, cm, 12/25/20 14:20:00 EDT, Height, [...] 1 Refills, Maintenance, 02/08/21 9:52:00 EDT, Tablet, [facility]/pharmacy #0693, 160, cm, 01/25/21 14:11:00 EDT, Height, [...] 9:05:00 EDT, Route to Pharmacy Electronically, [facility]/pharmacy #0693, 160, cm, 01/25/21 14:11:00 EDT, Height, 77.5, kg, 10/05/20 14:31:00 EST, Dry Weight Start Date: 02/06/21 Stop Date: 08/05/21 Status: OrderedHumira 40 mg subcutaneous solution See Instructions, 40 mg V1yfpad, 0 Refills, Maintenance, 10/23/20 13:46:00 EST, Partial fill upon patient request if the prescription is for a schedule II opioid drug. Start Date: 10/23/20 Status: OrderedLyrica 150 mg oral capsule 1 capsule = 150 mg, By Mouth, 2 times a day, DOSAGE INCREASE, # 60 capsule, 3 Refills, Maintenance, 01/23/21 14:56:00 EDT, Capsule, [facility]/pharmacy #[id number], 160, cm, 01/14/21 11:46:00 EDT, Height, 77.5, kg,10/05/20 14:31:00 EST, Dry Weight Start Date: 01/23/21 Status: Orderedmagnesium oxide 400 mg (240 mg elemental magnesium) oral tablet 1 tablet, By Mouth, Daily, # 90 tablet, 0 Refills, Acute, 09/20/20 12:20:00 EST, [facility] STORE 82778, 90, TAKE 1 TABLET BY MOUTH DAILY, 160, cm, 09/12/20 14:03:00 EST, Height, 71.3, kg, 08/08/20 7:00:00 EST, Dry Weight Start Date: 09/20/20 Status: OrderedMelatonin 3 mg oral tablet 1 tablet = 3 mg, By Mouth, Daily at bedtime, PRN for insomnia, [facility], # 90 tablet, 3 Refills, Maintenance, 04/24/20 9:53:00 EDT, Tablet, [facility]/pharmacy #[id number], 1 tablet By Mouth Daily at [...] if th... Start Date: 08/30/20 Status: OrderedPen [place], 31 G x 5 mm BD Ultra [...] 15:06:00 EDT, Route to Pharmacy Electronically, [facility]/pharmacy #[id number], 160, cm, 12/25/20 14:20:00 EDT, Height, 77.5, kg, 10/05/20 14:31:00 EST, DrJhoan.. Start Date: 01/09/21 Status: Orderedspironolactone 100 mg oral tablet 100 mg, 1, tablet, By Mouth, Daily, # 90 tablet, Refills 0, Tot. Refills 0, Maintenance, 01/23/21 14:56:00 EDT, Route to Pharmacy Electronically, [facility]/pharmacy #[id number], Partial fill upon patient request if the prescription is for a schedule II opioid thomas... 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 50-70% bilaterally.3Patient's bow maker custom is [facility] and patient sees Dr. Gume Mart Social History Social History Type Response Tobacco Other: last cigarette 0. Sex
--- OUTSIDE RECORDS SUMMARY | 2022-06-09 08:48 | XMS_ITS | Continuity of Care Document ---
:1950 Author Organization [facility] Adult Address [address] [place] [address]- Care Team Providers Name Role Phone Ranjeet Rushing MD Primary Care Physician Encounter [facility] Date(s): 04/09/22 - 05/09/22 [facility] [address] [place] [address]- Allergies, Adverse Reactions, Alerts Substance Reaction Severity [...] (PPV23) (oldterm)11 07/19/08 Given 1Result Comment: [05/28/2017] [facility]: [id number] History: [id number] Note: VIS GIVEN-DATED Admin Note: vis [id number] Note: VIS pyamk0Vizuu Note: VIS-DFYHP7Sxkqevem History: [facility] [id number] History: [facility] [id number] Comment: [10/17/2015] PER NICO AT [id number] Note: VIS [id number] Note: VIS GIVEN Medications 12 inch Grab [...] 11 Refills, Maintenance, 05/07/22 16:00:00 EDT, Powder, [facility]/pharmacy #[id number], 2 puffs Inhalation Every 6 hours,PRN:as needed, 160, cm, 04/24/22 8:34:00 EDT, Height, 72.7, kg, 04/24/22 8:34:00... Start Date: 05/07/22 Status: Orderedalendronate 70 mg oral tablet 1 tablet, By Mouth, Every week, # 12 tablet, 1 Refills, [facility] STORE 66686, 160, cm, 01/17/22 14:38:00 EDT, Height, 74.8, kg, 11/01/21 15:05:00 EST, Dry Weight Start Date: 01/30/22 Status: Orderedallopurinol 300 mg oral tablet 1, tablet, By Mouth, Daily, # 90 tablet, Refills 0, Route to Pharmacy Electronically, [facility], 160, cm, 02/21/22 15:11:00 EDT, Height, 74.8, kg, 11/01/21 15:05:00 EST, Dry Weight Start Date: 03/27/22 Status: OrderedBACK BRACE BACK BRACE, See Instructions, # 1 each, Refills 0, Tot. Refills 0, Maintenance, DX BACK PAIN M54.9 DANTE LIFETIME HT 5'3 WT 182 LB, 07/23/16 14:35:27, Compound Start Date: 07/23/16 Status: OrderedBD UF SHORT PEN NEEDLE [id number] BD UF SHORT PEN NEEDLE [id number], See Instructions, # 200 Unknown, 5 Refills, USE TO INJECT INSULIN TWICE A DAY, 160, cm, 11/27/21 14:08:00 EDT, Height, 74.8, kg, 11/01/21 15:05:00 EST, Dry Weight Start Date: 11/30/21 Status: OrderedbuPROPion 300 mg/24 hours (XL) oral tablet, extended release 1 tablet, By Mouth, Daily, # 30 tablet, 5 Refills, [facility], 160, cm, 02/04/22 13:44:00 EDT, Height, 74.8, [...] Status: [facility] VITAMIN D3 25 MCG SOFTGEL [facility] VITAMIN D3 25 MCG SOFTGEL, 1, capsule, By Mouth, Daily, # 90 capsule, 1 Refills, 160, cm, 10/16/21 14:42:00 EST, Height, 75, kg, 09/14/21 11:51:00 EST, Dry Weight Start Date: 10/17/21 Status: Orderedcyanocobalamin 500 mcg oral tablet 1 tablet = 500 mcg, By Mouth, Daily, # 90 tablet, 3 Refills, Maintenance, 04/12/22 16:02:00 EDT, Tablet, [facility]/pharmacy #[id number], 160, cm, 04/10/22 14:31:00 EDT, [...] tablet, 1 Refills, Maintenance, 05/06/22 9:31:00 EDT, [facility] STORE 27482, 160, cm, 04/24/22 8:34:00 EDT, Height, 72.7, [...] 1, Route to Pharmacy Electronically, [facility], 160, cm, 02/21/22 15:11:00 EDT, Height, 74.8, kg, 11/01/21 15:05:00 EST, Dry Weight Start Date: 03/12/22 Status: OrderedLidoderm 5% film 1 patch, Topically, Daily, # 30 patch, 11 Refills, Maintenance, 12/28/21 15:03:00 EDT, [facility]/pharmacy #[id number], Partial fill upon patient request if the prescription is for a schedule II opioid drug., 1 patch Topically Daily,x30 days, 160, cm, 11/27/21 14:... Start Date: 12/28/21 Stop Date: 12/23/22 Status: OrderedLyrica 150 mg oral capsule 1 capsule = 150 mg, By Mouth, 2 times a day, DOSAGE INCREASE, # 60 capsule, 3 Refills, Maintenance, 03/26/22 10:58:00 EDT, Capsule, [facility]/pharmacy #0693, 160, cm, 02/21/22 15:11:00 EDT, Height, 74.8, kg,11/01/21 15:05:00 EST, Dry Weight Start Date: 03/26/22 Status: Orderedmagnesium oxide 400 mg oral tablet 1 tablet, By Mouth, Daily, # 100 tablet, 2 Refills, [facility], 160, cm, 02/21/22 15:11:00 EDT,Height, 74.8, kg, 11/01/21 15:05:00 EST, Dry Weight Start Date: 03/28/22 Status: OrderedMelatonin 3 mg oral tablet 1 tablet = 3 mg, By Mouth, Daily at bedtime, PRN for insomnia, [facility], # 90 tablet, 3 Refills, Maintenance, 10/17/21 12:02:00 EST, Tablet, [facility]/pharmacy #[id number], 1 tablet By Mouth [...] EDT, Injec... Start Date: 06/11/21 Status: OrderedPen [place], 31 G x 5 mm BD Ultra [...] tablet, 0 Refills, Maintenance, 04/24/22 17:19:00EDT, Tablet, [facility]/pharmacy #[id number], Partial fill upon patient [...] 17:53:00 EST, Route to Pharmacy Electronically, [facility]/pharmacy #[id number], 160, cm, 09/14/21 11:51:00 EST, [...] tablet, Refills 1, Route to Pharmacy Electronically, [facility] STORE 33801, 160, cm, 11/27/21 14:08:00 EDT, Height, 74.8, kg, 11/01/21 15:05:00 EST, Dry Weight Start Date: 01/11/22 Status: OrderedtraMADol 50 mg oral tablet See Instructions, TAKE 1-2 TABLETS BY MOUTH EVERY 6 HOURS SCHEDULE FOLLOW VISIT, NEEDED FOR PAIN,# 240 tablet, 5 Refills, Maintenance, 01/17/22 11:33:00 EDT, [facility]/pharmacy #[id number], 160, cm, 11/27/21 14:08:00 EDT, [...] Refills, Maintenance, 05/07/22 15:49:00 EDT, [facility], 160, cm, 04/24/22 8:34:00 EDT, Height, 72.7, [...] (osteoarthritis), Active cervical(Confirmed) Osteoporosis(Confirmed) Active *[facility] [phone] 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 50-70% bilaterally.3Patient's cytopathologist is [facility] and patient sees Dr. Gume Mart Social History Social History Type Response Smoking Status Former smoker, quit more mark n 30 days ago entered on: 09/28/21 Sex Care Team PersonnelName: Kristan SUTTON, Ranjeet Beatty Address: [address] [place] [address] Adult [place], [place] [address]
--- OUTSIDE RECORDS SUMMARY | 2022-06-09 08:48 | XMS_ITS | Continuity of Care Document ---
:1950 Author Organization [facility] Adult Address [address] [place] [address]- Care Team Providers Name Role Phone Kristan SUTTON, Ranjeet Beatty Primary Care Physician [facility] Date[facility]s): 03/12/22 - 04/13/22 [facility] Adult [address] [place] [address]- Attending Physician: Ana Elizabeth Allergies, Adverse Reactions, Alerts Substance Reaction Severity [...] (PPV23) (oldterm)11 07/19/08 Given 1Result Comment: [05/28/2017] [facility]: [id number] History: [id number] Note: VIS GIVEN-DATED Admin Note: vis [id number] Note: VIS cpwsx4Qlszb Note: VIS-[id number] History: [facility] [id number] History: [facility] [id number] Comment: [10/17/2015] PER NICO AT [id number] Note: VIS [id number] Note: VIS GIVEN Medications 12 inch Grab [...] 11 Refills, Maintenance, 05/05/20 14:02:00 EDT, Powder, [facility]/pharmacy #0693, 2 puffs Inhalation Every 6 hours,PRN:as needed, 160.02, cm, 05/05/20 13:43:00 EDT, Height, 73.6, kg, 04/18/20 10:1... Start Date: 05/05/20 Status: Orderedalendronate 70 mg oral tablet 1 tablet, By Mouth, Every week, # 12 tablet, 1 Refills, [facility] ST[facility] 48290, 160, cm, 01/17/22 14:38:00 EDT, Height, 74.8, kg, 11/01/21 15:05:00 EST, Dry Weight Start Date: 01/30/22 Status: Orderedallopurinol 300 mg oral tablet 1, tablet, By Mouth, Daily, # 90 tablet, Refills 0, Route to Pharmacy Electronically, [facility], 160, cm, 02/21/22 15:11:00 EDT, Height, 74.8, kg, 11/01/21 15:05:00 EST, Dry Weight Start Date: 03/27/22 Status: OrderedBACK BRACE BACK BRACE, See Instructions, # 1 each, Refills 0, Tot. Refills 0, Maintenance, DX BACK PAIN M54.9 DANTE LIFETIME HT 5'3 WT 182 LB, 07/23/16 14:35:27, Compound Start Date: 07/23/16 Status: OrderedBD UF SHORT PEN NEEDLE [id number] BD UF SHORT PEN NEEDLE [id number], See Instructions, # 200 Unknown, 5 Refills, USE TO INJECT INSULIN TWICE A DAY, 160, cm, 11/27/21 14:08:00 EDT, Height, 74.8, kg, 11/01/21 15:05:00 EST, Dry Weight Start Date: 11/30/21 Status: OrderedbuPROPion 300 mg/24 hours (XL) oral tablet, extended release 1 tablet, By Mouth, Daily, # 30 tablet, 5 Refills, [facility], 160, cm, 02/04/22 13:44:00 EDT, Height, 74.8, [...] 3 Refills, Maintenance, 04/12/22 16:02:00 EDT, Tablet, [facility]/pharmacy #0693, 160, cm, 04/10/22 14:31:00 EDT, Height, [...] 1 Refills, Maintenance, 02/21/22 16:12:00 EDT, Tablet, [facility]/pharmacy #0693, Partial fill upon patient request if [...] tablet, Refills 1, Route to Pharmacy Electronically, [facility] ST[facility] 83498, 160, cm, 02/21/22 15:11:00 EDT, Height, 74.8, kg, 11/01/21 15:05:00 EST, Dry Weight Start Date: 03/12/22 Status: OrderedLidoderm 5% film 1 patch, Topically, Daily, # 30 patch, 11 Refills, Maintenance, 12/28/21 15:03:00 EDT, [facility]/pharmacy #0693, Partial fill upon patient request if the prescription is for a schedule II opioid drug., 1 patch Topically Daily,x30 days, 160, cm, 11/27/21 14:... Start Date: 12/28/21 Stop Date: 12/23/22 Status: OrderedLyrica 150 mg oral capsule 1 capsule = 150 mg, By Mouth, 2 times a day, DOSAGE INCREASE, # 60 capsule, 3 Refills, Maintenance, 03/26/22 10:58:00 EDT, Capsule, [facility]/pharmacy #0693, 160, cm, 02/21/22 15:11:00 EDT, Height, 74.8, kg,11/01/21 15:05:00 EST, Dry Weight Start Date: 03/26/22 Status: Orderedmagnesium oxide 400 mg oral tablet 1 tablet, By Mouth, Daily, # 100 tablet, 2 Refills, [facility] ST[facility] 55036, 160, cm, 02/21/22 15:11:00 EDT,Height, 74.8, kg, 11/01/21 15:05:00 EST, Dry Weight Start Date: 03/28/22 Status: OrderedMelatonin 3 mg oral tablet 1 tablet = 3 mg, By Mouth, Daily at bedtime, PRN for insomnia, [facility], # 90 tablet, 3 Refills, Maintenance, 10/17/21 12:02:00 EST, Tablet, [facility]/pharmacy #0693, 1 tablet By Mouth Daily at bedtime,PRN:for insomnia,Instr:[facility] brand, 160, cm, 10/16/21 14... Start Date: [...] Acute 04/29/22 0:00:00 EDT, 04/08/22 10:39:00 EDT,Patch, [facility]/pharmacy #0693, Partial fill upon patient request if [...] EDT, Injec... Start Date: 06/11/21 Status: OrderedPen [place], 31 G x 5 mm BD Ultra [...] 09/15/21 17:53:00 EST, Route to Pharmacy Electronically, [facility]/pharmacy #0693, 160, cm, 09/14/21 11:51:00 EST, Height, [...] tablet, Refills 1, Route to Pharmacy Electronically, [facility], 160, cm, 11/27/21 14:08:00 EDT, Height, 74.8, kg, 11/01/21 15:05:00 EST, Dry Weight Start Date: 01/11/22 Status: OrderedtraMADol 50 mg oral tablet See Instructions, TAKE 1-2 TABLETS BY MOUTH EVERY 6 HOURS SCHEDULE FOLLOW VISIT, NEEDED FOR PAIN,# 240 tablet, 5 Refills, Maintenance, 01/17/22 11:33:00 EDT, [facility]/pharmacy #0693, 160, cm, 11/27/21 14:08:00 EDT, Height, [...] # 9 Unknown, 5 Refills, [facility], 160, cm, 09/07/21 15:03:00 EST, Height, 77.27, kg, 03/24/21 20:58:00 EDT, Dry Weight Start Date: 09/11/21 Status: OrderedVitamin D3 1000 intl units oral capsule 1 capsule = 1,000 International_Units, By Mouth, Daily, # 90 capsule, 1 Refills, Maintenance, 09/25/20 7:44:00 EST, Capsule, [facility]/pharmacy #0693, resent from 08/14, 160, cm, 09/12/20 [...] Active *[facility] [phone] 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 50-70% bilaterally.3Patient's dermatology procedural physician is [facility] and patient sees Dr. Gume Mart Social History Social History Type Response Smoking Status Former smoker, quit more mark n 30 days ago entered on: 09/28/21 Sex
--- OUTSIDE RECORDS SUMMARY | 2022-06-09 08:48 | XMS_ITS | Continuity of Care Document ---
:1950 Author Organization [facility] Address [address] [place] [address]- Care Team Providers Name Role Phone Kristan SUTTON, Ranjeet Beatty Primary Care Physician [facility] Date[facility]s): 06/[facility]21 - 07/02/21 [facility] [address] [place] [address]- Allergies, Adverse Reactions, Alerts Substance Reaction Severity [...] Given 1Result Comment: [05/28/2017] [facility]: [id number] History: [id number] Note: VIS GIVEN-DATED Admin Note: vis [id number] Note: VIS iqqil5Tqszq Note: VIS-YUAIT9Ghigpdoa History: [facility] [id number] History: [facility] [id number] Comment: [10/17/2015] PER NICO AT [id number] Note: VIS GOYHR61Czazj Note: VIS GIVEN Medications 12 inch Grab [...] Maintenance, 01/09/21 16:07:00 EDT, [facility] ST[facility] 12429, 160, cm, 12/25/20 14:20:00 EDT, Height, 77.5, [...] Refills, Maintenance, 03/12/21 10:51:00 EDT, [facility], 160, cm, 02/27/21 13:50:00 EDT, Height, 79.6, [...] mg subcutaneous solution See Instructions, 40 mg [id number], 0 Refills, Maintenance, 10/23/20 13:46:00 EST, Partial [...] Acute, 09/20/20 12:20:00 EST, [facility] ST[facility] 84517, 90, TAKE 1 TABLET BY MOUTH DAILY, 160, cm, 09/12/20 14:03:00 EST, Height, 71.3, kg, 08/08/20 7:00:00 EST, Dry Weight Start Date: 09/20/20 Status: Orderedmagnesium oxide 400 mg oral tablet 1 tablet = 400 mg, By Mouth, Daily, # 100 tablet, 2 Refills, Maintenance, 06/05/21 11:32:00 EDT, Tablet, [facility]/pharmacy #0693, Partial fill upon patient request [...] EDT, Injec... Start Date: 06/11/21 Status: OrderedPen [place], 31 G x 5 mm BD Ultra Fine III See Instructions, # 200 each, Refills 5, Tot. 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, 10/06/20 10:54:00 EST, SHORT, Compound, 160, cm, [...] Route to Pharmacy Electronically, [facility]/pharmacy #[id number], Partial fill upon patient request if the prescription is for a schedule II opioid carlene Start Date: 01/23/21 Stop Date: 04/23/21 Status: OrderedtraMADol 50 mg oral tablet See Instructions, TAKE 1-2 TABLETS BY MOUTH EVERY 6 HOURS SCHEDULE FOLLOW VISIT, NEEDED FOR PAIN,# 240 tablet, 5 Refills, Maintenance, 05/31/21 9:52:00 EDT, [facility]/pharmacy #0693, 160, cm, 05/21/21 11:03:00 EDT, [...] 3 Refills, Maintenance, 04/19/21 11:35:00 EDT, Powder, [facility]/pharmacy #0693, Partial fill upon patient request [...] # 9 Unknown, 2 Refills, [facility], 160, cm, 06/19/21 13:57:00 EDT, Height, 77.27, [...] (osteoarthritis), Active cervical(Confirmed) Osteoporosis(Confirmed) Active *[facility] [phone] 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 Gume Mart Social History Social History Type Response Tobacco Other: last cigarette 0. Sex
--- OUTSIDE RECORDS SUMMARY | 2022-06-09 08:48 | XMS_ITS | Continuity of Care Document ---
:1950 Author Organization [facility] Address [address] [place] [address]- Care Team Providers Name Role Phone Ranjeet Rushing MD Primary Care Physician [facility] 06[facility]20 - 07/02/20 [facility] [address] [place] [address]- Allergies, Adverse Reactions, Alerts Substance Reaction Severity [...] 1Result Comment: [05/28/2017] [facility]: [id number] History: [id number] Note: VIS GIVEN-DATED Admin Note: vis [id number] Note: VIS [id number] Note: VIS-[id number] [place] [facility] [id number] History: [facility] DEANGELO Gray Comment: [10/17/2015] PER NICO AT [id number] Note: VIS [id number] Note: VIS GIVEN Medications albuterol 90 mcg/inh inhalation powder 2 puffs, Inhalation, Every 6 hours, PRN as needed, # 1 each, 11 Refills, Maintenance, 05/05/20 14:02:00 EDT, Powder, [facility]/pharmacy #[id number], 2 puffs Inhalation Every 6 hours,PRN:as needed, 160.02, cm, 05/05/20 13:43:00 EDT, Height, 73.6, kg, 04/18/20 10:1... Start Date: 05/05/20 Status: Orderedalendronate 70 mg oral tablet 1 tablet, By Mouth, Every week, # 12 tablet, 0 Refills, Maintenance, 06/01/20 9:05:00 EDT, [facility]/pharmacy #[id number], 160.02, cm, 05/09/20 12:34:00 EDT, Height, 73.6, kg, 04/18/20 10:19:00 EDT, Dry Weight Start Date: 06/01/20 Status: Orderedallopurinol 300 mg oral tablet 1, tablet, By Mouth, Daily, # 90 tablet, Refills 0, Tot. Refills 0, Maintenance, 04/05/20 9:38:00 EDT, Route to Pharmacy Electronically, [facility]/pharmacy #[id number], 160.02, cm, 03/29/20 [...] 0 Refills, Maintenance, 06/01/20 12:01:00 EDT, Capsule, [facility]/pharmacy #[id number], 160.02, cm, 06/01/20 [...] 0 Refills, Maintenance, 02/11/20 13:33:00 EDT, Tablet, [facility]/pharmacy #[id number], 160.02, cm, 02/11/20 [...] 04/07/20 11:50:00 EDT, Route to Pharmacy Electronically, [facility]/pharmacy #[id number], 160.02, cm, 03/29/20 10:57:00 EDT,Height, 81.6, kg, 07/27/19 14:52:00 EST, Dry Weight Start Date: 04/07/20 Status: Orderedgabapentin 300 mg oral capsule 300 mg, 1, capsule, By Mouth, 3 times a day, # 90 capsule, Refills 5, Tot. Refills 5, Maintenance, 04/13/20 12:42:00 EDT, Route to Pharmacy Electronically, [facility]/pharmacy #[id number], 160.02, cm, 03/29/20 [...] 1 Refills, Maintenance, 05/12/20 14:54:00 EDT, Capsule, [facility]/pharmacy #[id number], 160.02, cm, 05/09/20 12:34:00 EDT, Height, 73.6, kg, 04/18/20 10:19:00 EDT, Dry Weight Start Date: 05/12/20 Status: Orderedmagnesium oxide 400 mg oral tablet 1 tablet = 400 mg, By Mouth, Daily, PER RAJNI CARDONA, # 90 tablet, 0 Refills, Maintenance, 06/28/20 12:11:00 EST, [facility]/pharmacy #[id number], 160.02, cm, 06/01/20 11:03:00 EDT, Height, 73.6, kg, 04/18/20 10:19:00 EDT, Dry Weight Start Date: 06/28/20 Status: OrderedMelatonin 3 mg oral tablet 1 tablet = 3 mg, By Mouth, Daily at bedtime, PRN for insomnia, [facility], # 90 tablet, 3 Refills, Maintenance, 04/24/20 9:53:00 EDT, Tablet, [facility]/pharmacy #[id number], 1 tablet By [...] each, 5 Refills, Maintenance, 02/21/20 11:53:00 EDT, [facility]/pharmacy #[id number], 301-350: 12 units, 351-400: 14 units, 401-450: 1... Start Date: 02/21/20 Status: OrderedoxyCODONE 5 mg oral capsule 1 capsule = 5 mg, By Mouth, Every 6 hours, PRN as needed for pain, 0 Refills, Maintenance, 06/01/20 11:12:00 EDT, Capsule, Partial fill upon patient request Start Date: 06/01/20 Status: OrderedPen [place], 31 G x 5 mm BD Ultra [...] 06/28/20 9:31:00 EST, Route to Pharmacy Electronically, [facility]/pharmacy #[id number], 160.02, cm, 06/01/20 11:03:00 EDT, Height, 73.6, kg, 04/18/20 10:19:00 EDT,... Start Date: 06/28/20 Status: Orderedspironolactone 100 mg oral tablet 1, tablet, By Mouth, Daily, # 30 tablet, Refills 2, Tot. Refills 2, Maintenance, 05/16/20 16:31:00 EDT, Route to Pharmacy Electronically, [facility]/pharmacy #[id number], 160.02, cm, 05/09/20 12:34:00 EDT, Height, 73.6, kg, 04/18/20 10:19:00 EDT, Dry Weight Start Date: 05/16/20 Status: OrderedtraMADol 50 mg oral tablet See Instructions, PRN Pain , Severe, 1-2 tablets by mouth every 6 hours Schedule follow visit, # 240tablet, 1 Refills, Soft Stop, 05/19/20 16:27:00 EDT, [facility]/pharmacy #[id number], 160.02, cm, 05/09/20 [...] 5 Refills, Soft Stop, 12/16/19 15:45:00 EDT, [facility]/pharmacy #[id number], 160.02, cm, 11/02/19 15:34:00 EDT, Height, 81.6, kg, 07/27/19 14:52:00 EST, Dry Weight Start Date: 12/16/19 Status: OrderedVictoza 18 mg/3 mL subcutaneous solution See Instructions, INJECT 1.8 MG UNDER THE SKIN ONCE DAILY, # 9 Unknown, 5 Refills, 06/20/20 15:08:00EDT, [facility]/pharmacy #[id number], 160.02, cm, 06/01/20 [...] (osteoarthritis), Active cervical(Confirmed) Osteoporosis(Confirmed) Active *[facility] [phone] 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 50-70% bilaterally.3Patient's intake specialist is [facility] and patient sees Dr. Gume Mart Social History Social History Type Response Smoking Status Current some day smoker; Typ e: Cigarettes; Other: less than 1/2 pack a day; Tobacco use times per day: 1/2 pack a day; entered on: 02/19/17 Sex
--- OUTSIDE RECORDS SUMMARY | 2022-06-09 08:48 | XMS_ITS | Continuity of Care Document ---
:1950 Author Organization [facility] Address [address] [place] [address]- Care Team Providers Name Role Phone Kristan SUTTON, Ranjeet Beatty Primary Care Physician [facility] 10[facility]13/21 - 11/12/21 [facility] [address] [place] [address]- Allergies, Adverse Reactions, Alerts Substance Reaction Severity [...] 1Result Comment: [05/28/2017] [facility]: [id number] History: [id number] Note: VIS GIVEN-DATED Admin Note: vis [id number] Note: VIS [id number] Note: [id number] [place] [facility] [id number]: [facility] [id number] Comment: [10/17/2015] PER NICO AT [id number] Note: VIS [id number] Note: VIS GIVEN Medications 12 inch Grab [...] 11 Refills, Maintenance, 05/05/20 14:02:00 EDT, Powder, [facility]/pharmacy #[id number], 2 puffs Inhalation Every 6 hours,PRN:as needed, 160.02, cm, 05/05/20 13:43:00 EDT, Height, 73.6, kg, 04/18/20 10:1... Start Date: 05/05/20 Status: Orderedalendronate 70 mg oral tablet 1 tablet, By Mouth, Every week, # 12 tablet, 6 Refills, Maintenance, 01/09/21 16:07:00 EDT, [id number], 160, cm, 12/25/20 14:20:00 EDT, Height, 77.5, kg, 10/05/20 14:31:00 EST, Dry Weight Start Date: 01/09/21 Status: Orderedallopurinol 300 mg oral tablet 1, tablet, By Mouth, Daily, # 90 tablet, Refills 1, Route to Pharmacy Electronically, [id number], 160, cm, 06/19/21 13:57:00 EDT, Height, 77.27, [...] tablet, 5 Refills, Maintenance, 08/30/21 7:54:00 EST, [facility]/pharmacy #[id number], 160, cm, 07/26/21 10:45:00 EST, [...] 1 Refills, Maintenance, 09/18/21 11:52:00 EST, Tablet, [facility]/pharmacy #[id number], 160, cm, 09/14/21 [...] 50 mg, By Mouth, Daily at bedtime, # 30 tablet, 1 Refills, Maintenance, 10/16/21 15:07:00EST, Tablet, [facility]/pharmacy #[id number], Partial fill upon patient request if the prescription is for a schedule II opioid drug., 160, cm, 10/16/21 14:42:00 E... Start Date: 10/16/21 Status: OrderedFreestyle Lite Lancets See Instructions, # [...] tablet, Refills 1, Route to Pharmacy Electronically, [id number], 160, cm, 10/15/21 15:03:00 EST, Height, 75, kg, 09/14/21 11:51:00 EST, Dry Weight Start Date: 10/16/21 Status: OrderedLyrica 150 mg oral capsule 1 capsule = 150 mg, By Mouth, 2 times a day, DOSAGE INCREASE, # 60 capsule, 3 Refills, Maintenance, 11/12/21 16:27:00 EDT, Capsule, [facility]/pharmacy #[id number], 160, cm, 11/01/21 15:12:00 EST, Height, 74.8, kg,11/01/21 15:05:00 EST, Dry Weight Start Date: 11/12/21 Status: Orderedmagnesium oxide 400 mg (240 mg elemental magnesium) oral tablet 1 tablet, By Mouth, Daily, # 90 tablet, 0 Refills, Acute, 09/20/20 12:20:00 EST, [id number], 90, TAKE 1 TABLET BY MOUTH DAILY, 160, cm, 09/12/20 14:03:00 EST, Height, 71.3, kg, 08/08/20 7:00:00 EST, Dry Weight Start Date: 09/20/20 Status: Orderedmagnesium oxide 400 mg oral tablet 1 tablet = 400 mg, By Mouth, Daily, # 100 tablet, 2 Refills, Maintenance, 06/05/21 11:32:00 EDT, Tablet, [facility]/pharmacy #[id number], Partial fill upon patient request if the prescription is for a schedule II opioid drug., 160, cm, 05/21/21 11:03:00 EDT, Heigh... Start Date: 06/05/21 Status: OrderedMelatonin 3 mg oral tablet 1 tablet = 3 mg, By Mouth, Daily at bedtime, PRN for insomnia, [facility], # 90 tablet, 3 Refills, Maintenance, 10/17/21 12:02:00 EST, Tablet, [facility]/pharmacy #[id number], 1 tablet By [...] EDT, Injec... Start Date: 06/11/21 Status: OrderedPen [place], 31 G x 5 mm BD Ultra [...] 09/15/21 17:53:00 EST, Route to Pharmacy Electronically, [facility]/pharmacy #[id number], 160, cm, 09/14/21 [...] 07/23/21 13:10:00 EST, Route to Pharmacy Electronically, [facility]/pharmacy #[id number], Partial fill upon patient request if the prescription is for a schedule II opioid thomas... Start Date: 07/23/21 Stop Date: 01/19/22 Status: OrderedtraMADol 50 mg oral tablet See Instructions, TAKE 1-2 TABLETS BY MOUTH EVERY 6 HOURS SCHEDULE FOLLOW VISIT, NEEDED FOR PAIN,# 240 tablet, 5 Refills, Maintenance, 05/31/21 9:52:00 EDT, [facility]/pharmacy #[id number], 160, cm, 05/21/21 11:03:00 [...] 3 Refills, Maintenance, 04/19/21 11:35:00 EDT, Powder, [facility]/pharmacy #[id number], Partial fill upon [...] # 9 Unknown, 5 Refills, [facility], 160, cm, 09/07/21 15:03:00 EST, Height, 77.27, [...] Osteoporosis(Confirmed) Active *[facility] [phone] 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 50-70% bilaterally.3Patient's professor of communication and writing is [facility] and patient sees Dr. Gume Mart Social History Social History Type Response Smoking Status Former smoker, quit more mark n 30 days ago entered on: 09/28/21 Sex
--- OUTSIDE RECORDS SUMMARY | 2022-06-09 08:48 | XMS_ITS | Continuity of Care Document ---
:1950 Author Organization [facility] Address [address] [place] [address]- Care Team Providers Name Role Phone Kristan SUTTON, Ranjeet Beatty Primary Care Physician [facility]): 08/21/21 - 09/20/21 [facility] [address] [place] [address]- Allergies, Adverse Reactions, Alerts Substance Reaction Severity [...] (PPV23) (oldterm)11 07/19/08 Given 1Result Comment: [05/28/2017] [facility]: [id number] History: [id number] Note: VIS GIVEN-DATED Admin Note: vis [id number] Note: VIS [id number] Note: VIS-[id number] History: [facility] [place] [id number] History: [facility] [id number] Comment: [10/17/2015] PER NICO AT [id number] Note: VIS [id number] Note: VIS GIVEN Medications 12 inch Grab [...] 11 Refills, Maintenance, 05/05/20 14:02:00 EDT, Powder, [facility]/pharmacy #[id number], 2 puffs Inhalation Every 6 hours,PRN:as needed, 160.02, cm, 05/05/20 13:43:00 EDT, Height, 73.6, kg, 04/18/20 10:1... Start Date: 05/05/20 Status: Orderedalendronate 70 mg oral tablet 1 tablet, By Mouth, Every week, # 12 tablet, 6 Refills, Maintenance, 01/09/21 16:07:00 EDT, [facility], 160, cm, 12/25/20 14:20:00 EDT, Height, 77.5, kg, 10/05/20 14:31:00 EST, Dry Weight Start Date: 01/09/21 Status: Orderedallopurinol 300 mg oral tablet 1, tablet, By Mouth, Daily, # 90 tablet, Refills 1, Route to Pharmacy Electronically, [facility], 160, cm, 06/19/21 13:57:00 EDT, Height, 77.27, [...] tablet, 5 Refills, Maintenance, 08/30/21 7:54:00 EST, [facility]/pharmacy #[id number], 160, cm, 07/26/21 [...] 02/06/21 9:05:00 EDT, Route to Pharmacy Electronically, [facility]/pharmacy #[id number], 160, cm, 01/25/21 14:11:00 EDT, Height, 77.5, kg, 10/05/20 14:31:00 EST, Dry Weight Start Date: 02/06/21 Stop Date: 08/05/21 Status: OrderedLyrica 150 mg oral capsule 1 capsule = 150 mg, By Mouth, 2 times a day, DOSAGE INCREASE, # 60 capsule, 3 Refills, Maintenance, 07/09/21 14:12:00 EST, Capsule, [facility]/pharmacy #[id number], 160, cm, 06/19/21 13:57:00 EDT, Height, 77.27, kg, 03/24/21 20:58:00 EDT, Dry Weight Start Date: 07/09/21 Status: Orderedmagnesium oxide 400 mg (240 mg elemental magnesium) oral tablet 1 tablet, By Mouth, Daily, # 90 tablet, 0 Refills, Acute, 09/20/20 12:20:00 EST, [facility] ST[facility] [address], 90, TAKE 1 TABLET BY MOUTH DAILY, 160, cm, 09/12/20 14:03:00 EST, Height, 71.3, kg, 08/08/20 7:00:00 EST, Dry Weight Start Date: 09/20/20 Status: Orderedmagnesium oxide 400 mg oral tablet 1 tablet = 400 mg, By Mouth, Daily, # 100 tablet, 2 Refills, Maintenance, 06/05/21 11:32:00 EDT, Tablet, [facility]/pharmacy #[id number], Partial fill upon [...] EDT, Injec... Start Date: 06/11/21 Status: OrderedPen [place], 31 G x 5 mm BD Ultra Fine III See Instructions, # 200 each, Refills 5, Tot. Refills 5, Maintenance, To inject insulin BID for DM II E11.9 PER RAJNI EMERY STEWARDESS SUPERVISOR-C, 10/06/20 10:54:00 EST, SHORT, Compound, 160, cm, [...] 09/15/21 17:53:00 EST, Route to Pharmacy Electronically, [facility]/pharmacy #[id number], 160, cm, 09/14/21 11:51:00 EST, Height, 75, kg, 09/14/21 11:51:00 EST, Dry... Start Date: 09/15/21 Status: Orderedspironolactone 100 mg oral tablet 100 mg, 1, tablet, By Mouth, Daily, # 90 tablet, Refills 1, Tot. Refills 1, Maintenance, 07/23/21 13:10:00 EST, Route to Pharmacy Electronically, [facility]/pharmacy #[id number], Partial fill upon patient request if the prescription is for a schedule II opioid thomas... Start Date: 07/23/21 Stop Date: 01/19/22 Status: OrderedtraMADol 50 mg oral tablet See Instructions, TAKE 1-2 TABLETS BY MOUTH EVERY 6 HOURS SCHEDULE FOLLOW VISIT, NEEDED FOR PAIN,# 240 tablet, 5 Refills, Maintenance, 05/31/21 9:52:00 EDT, [facility]/pharmacy #[id number], 160, cm, 05/21/21 [...] 3 Refills, Maintenance, 04/19/21 11:35:00 EDT, Powder, [facility]/pharmacy #[id number], Partial fill upon [...] 11 Refills, Soft Stop, 07/26/21 11:05:00 EST, [facility]/pharmacy #[id number], 160, cm, 07/26/21 [...] # 9 Unknown, 5 Refills, [facility], 160, cm, 09/07/21 15:03:00 EST, Height, 77.27, kg, 03/24/21 20:58:00 EDT, Dry Weight Start Date: 09/11/21 Status: OrderedVitamin D3 1000 intl units oral capsule 1 capsule = 1,000 International_Units, By Mouth, Daily, # 90 capsule, 1 Refills, Maintenance, 09/25/20 7:44:00 EST, Capsule, [facility]/pharmacy #[id number], resent from 08/14, 160, cm, 09/12/20 14:03:00 EST, Height, 71.3, kg, 08/08/20 7:00:00 EST, Dry Weight Start Date: 09/25/20 Status: OrderedZoloft 100 mg oral tablet 2 tablet = 200 mg, By Mouth, Daily, DOSAGE INCREASE, # 60 tablet, 6 Refills, Maintenance, 07/26/21 11:03:00 EST, Tablet, [id number], Partial fill upon patient request if the [...] Osteoporosis(Confirmed) Active *[facility] [phone] 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 50-70% bilaterally.3Patient's ceramics technician is [facility] and patient sees Dr. Gume Mart Social History Social History Type Response Tobacco Other: last cigarette 0. Sex
--- OUTSIDE RECORDS SUMMARY | 2022-06-09 08:48 | XMS_ITS | Continuity of Care Document ---
:1950 Author Organization [facility] Address [address] [place] [address]- Care Team Providers Name Role Phone Ranjeet Rushing MD Primary Care Physician [facility]19 - 12/16/19 [facility] [address] [place] [address]- [facility] Attending Physician: Chari Grey NP Referring Physician: [...] Given 1Result Comment: [05/28/2017] [facility]: [id number] History: [id number] Note: VIS GIVEN-DATED Admin Note: vis [id number] Note: VIS ujenz5Vflol Note: VIS-[id number] History: [facility] [place] [id number] History: [facility] DEANGELO Gray Comment: [10/17/2015] PER NICO AT [id number] Note: VIS [id number] Note: VIS GIVEN Medications albuterol 90 mcg/inh [...] 11/08/19 12:00:00 EDT, Route to Pharmacy Electronically, [facility] 303[facility], 160.02, cm, 11/02/19 15:34:00 EDT, Height, 81.6, [...] TAKE 1 CAPSULE BY MOUTH EVERY DAY, [facility]/pharmacy #[id number] Start Date: 04/20/19 [...] 11/08/19 11:59:00 EDT, Route to Pharmacy Electronically, [facility] 70048, 160.02, cm, 11/02/19 15:34:00 EDT, Height, 81.6, kg, 07/27/19 14:52:00 EST, Dry Weight Start Date: 11/08/19 Status: Orderedgabapentin 300 mg oral capsule 300 mg, 1, capsule, By Mouth, 3 times a day, # 90 capsule, Refills 5, Tot. Refills 5, Maintenance, 11/02/19 16:04:00 EDT, Route to Pharmacy Electronically, [facility]/pharmacy #[id number], 160.02, cm, 11/02/19 [...] EST, Dry Weight Start Date: 10/08/19 Status: OrderedMultivitamin Daily, 0 Refills, Maintenance, 12/09/19 [...] Call PCP... Start Date: 10/29/17 Status: OrderedPen [place], 31 G x 5 mm BD [...] 07/20/19 16:14:12 EST, Route to Pharmacy Electronically, [id number], [facility]/pharmacy #[id number] Start Date: 07/20/19 Status: Orderedspironolactone 100 mg oral tablet 1, tablet, By Mouth, Daily, # 30 tablet, Refills 5, Tot. Refills 0, Maintenance, 12/07/19 13:00:00 EDT, Route to Pharmacy Electronically, [facility] [address]32, 160.02, cm, 11/02/19 15:34:00 EDT, Height, 81.6, kg, 07/27/19 14:52:00 EST, Dry Weight Start Date: 12/07/19 Status: OrderedtraMADol 50 mg oral tablet See Instructions, PRN Pain , Severe, 1-2 tablets by mouth every 6 hours, # 240 tablet, 1 Refills, Soft Stop, 11/04/19 6:40:00 EDT, [facility]/pharmacy #[id number], 160.02, cm, 11/02/19 [...] 5 Refills, Soft Stop, 12/16/19 15:45:00 EDT, [facility]/pharmacy #[id number], 160.02, cm, 11/02/19 [...] 3 Refills, Maintenance, 10/20/19 9:16:00 EST, Capsule, [facility]/pharmacy #[id number], resent from 08/14, 160.02, cm, [...] Active cervical(Confirmed) Osteoporosis(Confirmed) Active *[facility] [phone] 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 50-70% bilaterally.3Patient's color card maker is [facility] and patient sees Dr. Gume Mart Social History Social History Type Response Smoking Status Current some day smoker; Typ e: Cigarettes; Other: less than 1/2 pack a day; Tobacco use times per day: 1/2 pack a day; entered on: 02/19/17 Sex
--- OUTSIDE RECORDS SUMMARY | 2022-06-09 08:48 | XMS_ITS | Continuity of Care Document ---
:1950 Author Organization [facility] Adult Address [address] [place] [address]- Care Team Providers Name Role Phone Kristan SUTTON, Ranjeet Beatty Primary Care Physician [facility] 08[facility] - 09/12/21 [facility] Adult [address] [place] [address]- Allergies, Adverse Reactions, Alerts Substance Reaction Severity [...] 07/19/08 Given 1Result Comment: [05/28/2017] [facility]: [id number] History: [id number] Note: VIS GIVEN-DATED Admin Note: vis [id number] Note: VIS [id number] Note: VIS-[id number] History: [facility] [id number] History: [facility] [id number] Comment: [10/17/2015] PER NICO AT [id number] Note: VIS [id number] Note: VIS GIVEN Medications 12 inch Grab [...] 11 Refills, Maintenance, 05/05/20 14:02:00 EDT, Powder, [facility]/pharmacy #[id number], 2 puffs Inhalation Every 6 hours,PRN:as needed, 160.02, cm, 05/05/20 13:43:00 EDT, Height, 73.6, kg, 04/18/20 10:1... Start Date: 05/05/20 Status: Orderedalendronate 70 mg oral tablet 1 tablet, By Mouth, Every week, # 12 tablet, 6 Refills, Maintenance, 01/09/21 16:07:00 EDT, [facility] STORE 60488, 160, cm, 12/25/20 14:20:00 EDT, Height, 77.5, kg, 10/05/20 14:31:00 EST, Dry Weight Start Date: 01/09/21 Status: Orderedallopurinol 300 mg oral tablet 1, tablet, By Mouth, Daily, # 90 tablet, Refills 1, Route to Pharmacy Electronically, [facility] STORE 34022, 160, cm, 06/19/21 13:57:00 EDT, Height, 77.27, [...] tablet, 5 Refills, Maintenance, 08/30/21 7:54:00 EST, [facility]/pharmacy #[id number], 160, cm, 07/26/21 10:45:00 [...] 1 Refills, Maintenance, 02/08/21 9:52:00 EDT, Tablet, [facility]/pharmacy #[id number], 160, cm, 01/25/21 14:11:00 [...] 02/06/21 9:05:00 EDT, Route to Pharmacy Electronically, [facility]/pharmacy #[id number], 160, cm, 01/25/21 14:11:00 EDT, Height, 77.5, kg, 10/05/20 14:31:00 EST, Dry Weight Start Date: 02/06/21 Stop Date: 08/05/21 Status: OrderedLyrica 150 mg oral capsule 1 capsule = 150 mg, By Mouth, 2 times a day, DOSAGE INCREASE, # 60 capsule, 3 Refills, Maintenance, 07/09/21 14:12:00 EST, Capsule, [facility]/pharmacy #[id number], 160, cm, 06/19/21 13:57:00 EDT, Height, 77.27, kg, 03/24/21 20:58:00 EDT, Dry Weight Start Date: 07/09/21 Status: Orderedmagnesium oxide 400 mg (240 mg elemental magnesium) oral tablet 1 tablet, By Mouth, Daily, # 90 tablet, 0 Refills, Acute, 09/20/20 12:20:00 EST, [facility] STORE 44632, 90, TAKE 1 TABLET BY MOUTH DAILY, 160, cm, 09/12/20 14:03:00 EST, Height, 71.3, kg, 08/08/20 7:00:00 EST, Dry Weight Start Date: 09/20/20 Status: Orderedmagnesium oxide 400 mg oral tablet 1 tablet = 400 mg, By Mouth, Daily, # 100 tablet, 2 Refills, Maintenance, 06/05/21 11:32:00 EDT, Tablet, [facility]/pharmacy #[id number], Partial fill upon patient request if the prescription is for a schedule II opioid drug., 160, cm, 05/21/21 11:03:00 EDT, Heigh... Start Date: 06/05/21 Status: OrderedMelatonin 3 mg oral tablet 1 tablet = 3 mg, By Mouth, Daily at bedtime, PRN for insomnia, [facility] brand, # 90 tablet, 3 Refills, [...] EDT, Injec... Start Date: 06/11/21 Status: OrderedPen [place], 31 G x 5 mm BD Ultra [...] 01/09/21 15:06:00 EDT, Route to Pharmacy Electronically, [facility]/pharmacy #[id number], 160, cm, 12/25/20 14:20:00 EDT, Height, 77.5, kg, 10/05/20 14:31:00 EST, Dr... Start Date: 01/09/21 Status: Orderedspironolactone 100 mg oral tablet 100 mg, 1, tablet, By Mouth, Daily, # 90 tablet, Refills 1, Tot. Refills 1, Maintenance, 07/23/21 13:10:00 EST, Route to Pharmacy Electronically, [facility]/pharmacy #[id number], Partial fill upon patient request if the prescription is for a schedule II opioid thomas... Start Date: 07/23/21 Stop Date: 01/19/22 Status: OrderedtraMADol 50 mg oral tablet See Instructions, TAKE 1-2 TABLETS BY MOUTH EVERY 6 HOURS SCHEDULE FOLLOW VISIT, NEEDED FOR PAIN,# 240 tablet, 5 Refills, Maintenance, 05/31/21 9:52:00 EDT, [facility]/pharmacy #[id number], 160, cm, 05/21/21 11:03:00 [...] 3 Refills, Maintenance, 04/19/21 11:35:00 EDT, Powder, [facility]/pharmacy #0693, Partial fill upon patient [...] 11 Refills, Soft Stop, 07/26/21 11:05:00 EST, [facility]/pharmacy #0693, 160, cm, 07/26/21 10:45:00 [...] # 9 Unknown, 5 Refills, [facility], 160, cm, 09/07/21 15:03:00 EST, Height, 77.27, [...] Refills, Maintenance, 07/26/21 11:03:00 EST, Tablet, [id number], Partial fill upon patient request if the [...] Active cervical(Confirmed) Osteoporosis(Confirmed) Active *[facility] [phone] 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 50-70% bilaterally.3Patient's firebreak cutter is [facility] and patient sees Dr. Gume Mart Social History Social History Type Response Tobacco Other: last cigarette 0. Sex
--- OUTSIDE RECORDS SUMMARY | 2022-06-09 08:48 | XMS_ITS | Continuity of Care Document ---
:1950 Author Organization [facility] [address] [place] [address]- Care Team Providers Name Role Phone Ranjeet Rushing MD Primary Care Physician [facility]): [facility]20 - 08/03/[address] [place], [place] [address] Attending Physician: AdmtrEvans Admitting Physician: AdmtrEvans Referring Physician: Admtr, Ar8 [...] 1Result Comment: [05/28/2017] [facility]: [id number] History: [id number] Note: VIS GIVEN-DATED Admin Note: vis [id number] Note: VIS [id number] Note: VIS-VTRYL2Asrzempp History: [facility] [id number] History: [facility] [id number] Comment: [10/17/2015] PER NICO AT [id number] Note: VIS [id number] Note: VIS GIVEN Medications 12 inch Grab [...] tablet, 0 Refills, Maintenance, 06/01/20 9:05:00 EDT, [facility]/pharmacy #[id number], 160.02, cm, 05/09/20 12:34:00 EDT, Height, 73.6, kg, 04/18/20 10:19:00 EDT, Dry Weight Start Date: 06/01/20 Status: Orderedallopurinol 300 mg oral tablet 300 mg, 1, tablet, By Mouth, Daily, # 90 tablet, Refills 0, Tot. Refills 0, Maintenance, 07/06/20 15:50:00 EST, [facility] Pharm[facility] Electronically, [facility] tablet, 0 Refills, Maintenance, 06/28/20 12:11:00 EST, [facility]/pharmacy #0693, 160.02, cm, 06/01/20 [...] each, 5 Refills, Maintenance, 02/21/20 11:53:00 EDT, [facility]/pharmacy #0693, 301-350: 12 units, 351-400: 14 units, 401-450: 1... Start Date: 02/21/20 Status: OrderedoxyCODONE 5 mg oral capsule 1 capsule = 5 mg, By Mouth, Every 6 hours, PRN as needed for pain, 0 Refills, Maintenance, 06/01/20 11:12:00 EDT, Capsule, Partial fill upon patient request Start Date: 06/01/20 Status: OrderedPen [place], 31 G x 5 mm BD Ultra [...] [facility], 160.02, cm, 06/01/20 11:03:00 EDT, Height, 73.6, kg, 04/18/20 10:19:00 EDT,... Start Date: 06/28/20 Status: Orderedspironolactone 100 mg oral tablet 1, tablet, By Mouth, Daily, # 30 tablet, Refills 2, Tot. Refills 2, Maintenance, 05/16/20 16:31:00 EDT, Route to Pharmacy Electronically, [facility]/pharmacy #0693, 160.02, cm, 05/09/20 12:34:00 EDT, Height, 73.6, kg, 04/18/20 10:19:00 EDT, Dry Weight Start Date: 05/16/20 Status: OrderedtraMADol 50 mg oral tablet See Instructions, PRN Pain , Severe, 1-2 tablets by mouth every 6 hours Schedule follow visit, # 240tablet, 1 Refills, Soft Stop, 05/19/20 16:27:00 EDT, [facility]/pharmacy #0693, 160.02, cm, 05/09/20 12:34:00 EDT, Height, [...] 3 Refills, Maintenance, 10/20/19 9:16:00 EST, Capsule, [facility]/pharmacy #0693, resent from 08/14, 160.02, cm, 09/29/19 [...] Active *[facility] [phone] 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 50-70% bilaterally.3Patient's regulatory compliance manager is [facility] and patient sees Dr. Gume Mart Social History Social History Type Response Smoking Status Current some day smoker; Typ e: Cigarettes; Other: less than 1/2 pack a day; Tobacco use times per day: 1/2 pack a day; entered on: 02/19/17 Sex
--- OUTSIDE RECORDS SUMMARY | 2022-06-09 08:48 | XMS_ITS | Continuity of Care Document ---
:1950 Author Organization [facility] Adult Address [address] [place] [address]- Care Team Providers Name Role Phone Ranjeet Del Rosario MD Primary Care Physician [facility] 08/23[facility]19 [facility] Adult [address] [place] [address]- [facility] Encounter Diagnosis COPD with acute exacerbation (Discharge Diagnosis) - 08/16/19 Cigarette smoker (Discharge Diagnosis) - 08/16/19 Attending Physician: Meggan Smyth NP Allergies, Adverse Reactions, Alerts Substance Reaction [...] Given 1Result Comment: [05/28/2017] [facility]: [id number] History: [id number] Note: VIS GIVEN-DATED Admin Note: vis [id number] Note: VIS [id number] Note: VIS-[id number] History: [facility] [id number] History: [facility] Isaac Comment: [10/17/2015] PER NICO AT [id number] Note: VIS [id number] Note: VIS GIVEN Medications albuterol 90 mcg/inh [...] TAKE 1 TABLET BY MOUTH EVERY DAY, [facility]/pharmacy #[id number] Start Date: 06/09/19 Status: OrderedBACK BRACE [...] 0 Refills, Maintenance, 08/16/19 13:14:00 EST, Tablet, [facility]/pharmacy #0693, 1 tablet By Mouth 2 times [...] each, 0 Refills, Maintenance, 01/01/19 14:36:12 EDT, [place], 2 sprays Nares, Both Daily in AM [...] 11, Maintenance, TEST BS TID DX E11.9 IDDMII,10/08/18 13:32:00 EST, Compound Start Date: 10/08/18 Status: Orderedfurosemide 40 mg oral tablet See [...] mg, By Mouth, Daily, PER RAJNI EMERY NP-C, # 90 tablet, 3 Refills, Maintenance, 07/20/19 [...] Call PCP... Start Date: 10/29/17 Status: OrderedPen [place], 31 G x 5 mm BD Ultra [...] 07/20/19 16:14:12 EST, Route to Pharmacy Electronically, [id number], [facility]/pharmacy #[id number] Start Date: 07/20/19 Status: Orderedspironolactone 100 mg oral tablet See Instructions, # 30 tablet, Refills 5 Tot. 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 50-70% bilaterally.3Patient's director private music therapy agency is [facility] and patient sees Dr. Gume Mart Diagnosis Diagnosis Type Effective [facility] Clinical Infor mant Status Service COPD with acute Discharge 08/16/19 exacerbation Diagnosis Cigarette smoker Discharge 08/16/19 Diagnosis Vital Signs Most recent to oldest [Reference Range]: 1 Height 160.02 cm (08/16/19 12:59 PM) Weight 80.8 kg (08/16/19 12:59 PM) Oxygen Saturation [94-100 %] 94 % (08/16/19 12:59 PM) Pulse Rate [55-90 bpm] 93 bpm *H* (08/16/19 12:59 PM) Body Mass Index [18.5-24.99] 31.55 *>HHI* (08/16/19 12:59 PM) Blood Pressure [90-138/55-84 mm Hg] 100/48 mm Hg (08/16/19 12:59 PM) Respiratory Rate [16-30 br/min] 18 br/min (08/16/19 12:59 PM) Temperature [96.8-100.4 DegF] 98.2 DegF (08/16/19 12:59 PM) Mode of Delivery (Oxygen) Room air (08/16/19 12:59 PM) Temperature Route Oral (08/16/19 12:59 PM) Weight Obtained Via Standing scale (08/16/19 12:59 PM) Social History Social History Type Response Smoking Status Current some day smoker; Typ e: Cigarettes; Other: less than 1/2 pack a day; Tobacco use times per day: 1/2 pack a day; entered on: 02/19/17 Sex
--- OUTSIDE RECORDS SUMMARY | 2022-06-09 08:48 | XMS_ITS | Continuity of Care Document ---
:1950 Author Organization [facility] Adult Address [address] [place] [address]- Care Team Providers Name Role Phone Kristan SUTTON, Ranjeet Beatty Primary Care Physician [facility] 09[facility]21 - 10/15/21 [facility] Adult [address] [place] [address]- Allergies, Adverse Reactions, Alerts Substance Reaction Severity [...] (PPV23) (oldterm)11 07/19/08 Given 1Result Comment: [05/28/2017] [facility]: [id number] History: [id number] Note: VIS GIVEN-DATED Admin Note: vis [id number] Note: VIS [id number] Note: VIS-LYVLM2Wvcbpnlr History: [facility] [id number] History: [facility] [id number] Comment: [10/17/2015] PER NICO AT [id number] Note: VIS [id number] Note: VIS GIVEN Medications 12 inch Grab [...] Maintenance, 05/05/20 14:02:00 EDT, Powder, [facility]/pharmacy #[id number], 2 puffs Inhalation Every 6 hours,PRN:as needed, 160.02, cm, 05/05/20 13:43:00 EDT, Height, 73.6, kg, 04/18/20 10:1... Start Date: 05/05/20 Status: Orderedalendronate 70 mg oral tablet 1 tablet, By Mouth, Every week, # 12 tablet, 6 Refills, Maintenance, 01/09/21 16:07:00 EDT, [facility] STORE 92419, 160, cm, 12/25/20 14:20:00 EDT, Height, 77.5, kg, 10/05/20 14:31:00 EST, Dry Weight Start Date: 01/09/21 Status: Orderedallopurinol 300 mg oral tablet 1, tablet, By Mouth, Daily, # 90 tablet, Refills 1, Route to Pharmacy Electronically, [facility] 63040, 160, cm, 06/19/21 13:57:00 EDT, Height, 77.27, [...] 5 Refills, Maintenance, 08/30/21 7:54:00 EST, [facility]/pharmacy #[id number], 160, cm, 07/26/21 10:45:00 EST, [...] Refills, Maintenance, 09/18/21 11:52:00 EST, Tablet, [facility]/pharmacy #0693, 160, [...] 0 Refills, Maintenance, 09/28/21 15:23:00 EST, Tablet, [facility]/pharmacy #0693, Partial [...] EDT, Route to Pharmacy Electronically, [facility]/pharmacy #[id number], 160, cm, 01/25/21 14:11:00 EDT, Height, 77.5, kg, 10/05/20 14:31:00 EST, Dry Weight Start Date: 02/06/21 Stop Date: 08/05/21 Status: OrderedLyrica 150 mg oral capsule 1 capsule = 150 mg, By Mouth, 2 times a day, DOSAGE INCREASE, # 60 capsule, 3 Refills, Maintenance, 07/09/21 14:12:00 EST, Capsule, [facility]/pharmacy #0693, 160, cm, 06/19/21 13:57:00 EDT, Height, 77.27, kg, 03/24/21 20:58:00 EDT, Dry Weight Start Date: 07/09/21 Status: Orderedmagnesium oxide 400 mg (240 mg elemental magnesium) oral tablet 1 tablet, By Mouth, Daily, # 90 tablet, 0 Refills, Acute, 09/20/20 12:20:00 EST, [facility] STORE 74263, 90, TAKE 1 TABLET BY MOUTH DAILY, 160, cm, 09/12/20 14:03:00 EST, Height, 71.3, kg, 08/08/20 7:00:00 EST, Dry Weight Start Date: 09/20/20 Status: Orderedmagnesium oxide 400 mg oral tablet 1 tablet = 400 mg, By Mouth, Daily, # 100 tablet, 2 Refills, Maintenance, 06/05/21 11:32:00 EDT, Tablet, [facility]/pharmacy #0693, Partial fill upon patient request if the prescription is for a schedule II opioid drug., 160, cm, 05/21/21 11:03:00 EDT, Heigh... Start Date: 06/05/21 Status: OrderedMelatonin 3 mg oral tablet 1 tablet = 3 mg, By Mouth, Daily at bedtime, PRN for insomnia, [facility], # 90 tablet, 3 Refills, Maintenance, 04/24/20 9:53:00 EDT, Tablet, [facility]/pharmacy #0693, 1 [...] EDT, Injec... Start Date: 06/11/21 Status: OrderedPen [place], 31 G x 5 mm BD Ultra [...] 13:10:00 EST, Route to Pharmacy Electronically, [facility]/pharmacy #0693, Partial fill upon patient request if the prescription is for a schedule II opioid thomas... Start Date: 07/23/21 Stop Date: 01/19/22 Status: OrderedtraMADol 50 mg oral tablet See Instructions, TAKE 1-2 TABLETS BY MOUTH EVERY 6 HOURS SCHEDULE FOLLOW VISIT, NEEDED FOR PAIN,# 240 tablet, 5 Refills, Maintenance, 05/31/21 9:52:00 EDT, [facility]/pharmacy #0693, 160, cm, 05/21/21 11:03:00 [...] # 9 Unknown, 5 Refills, [facility], 160, cm, 09/07/21 15:03:00 EST, Height, 77.27, [...] 0 Refills, Maintenance, 09/28/21 15:23:00 EST, Tablet, [facility], Partial fill upon [...] cervical(Confirmed) Osteoporosis(Confirmed) Active *[facility] [phone] 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 50-70% bilaterally.3Patient's flag car driver is [facility] and patient sees Dr. Gume Mart Social History Social History Type Response Smoking Status Former smoker, quit more mark n 30 days ago entered on: 09/28/21 Sex
--- OUTSIDE RECORDS SUMMARY | 2022-06-09 08:48 | XMS_ITS | Continuity of Care Document ---
:1950 Author Organization [address], [address] [place] [address]- Care Team Providers Name Role Phone Ranjeet Rushing MD Primary Care Physician [facility] 12/05/20 - 01/04/[address], [address] [place] [address]- Allergies, Adverse Reactions, Alerts Substance Reaction Severity [...] Given 1Result Comment: [05/28/2017] [facility]: [id number] History: [id number] Note: VIS GIVEN-DATED Admin Note: vis qblmz2Cpipd Note: VIS [id number] Note: VIS-BSHIM4Gkzkymdc History: [facility] [id number] History: [facility] [id number] Comment: [10/17/2015] PER NICO AT [id number] Note: VIS [id number] Note: VIS GIVEN Medications 12 inch Grab Bars 12 inch Grab Bars, See Instructions, # 2 each, Refills 0, Tot. Refills 0, Maintenance, Grab bars : Length 12inches Use as directed DX Unsteady Gait ICD10 R26.81 HT: 5'3 Weight 162lbs Length of need Lifetime, 07/07/20 11:45:00 EST, Supply Start Date: 07/07/20 Status: [facility] ADMIT TO [facility], See Instructions, # 1 each, Refills 0, Tot. Refills 0, Maintenance, FAX [phone] ADMIT TO SHELTER, PT, OT. 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 Refills 0, Maintenance, 10/28/20 12:31:00 EST, Route to Pharmacy Electronically, [facility]/pharmacy #0693, 160, cm, 10/20/20 15:01:00 EST, [...] 1 Refills, Maintenance, 09/28/20 11:53:00 EST, Tablet, [facility]/pharmacy #0693, 160, cm, 09/12/20 14:03:00 EST, [...] 15:48:00 EST, Route to Pharmacy Electronically, [facility]/pharmacy #0659, 160.02, cm, 07/03/20 14:54:00 EST,Height, 73.6, kg, 04/18/20 10:19:00 EDT, Dry Weight Start Date: 07/06/20 Stop Date: 10/04/20 Status: OrderedHumira 40 mg subcutaneous solution See Instructions, 40 mg [id number], 0 Refills, Maintenance, 10/23/20 13:46:00 EST, Partial fill upon patient request if the prescription is for a schedule II opioid drug. Start Date: 10/23/20 Status: OrderedLyrica 150 mg oral capsule 1 capsule = 150 mg, By Mouth, 2 times a day, DOSAGE INCREASE, # 60 capsule, 3 Refills, Maintenance, 07/04/20 11:46:00 EST, Capsule, [facility]/pharmacy #0693, 160.02, cm, 07/03/20 14:54:00 EST, Height, 73.6, kg, 04/18/20 10:19:00 EDT, Dry Weight Start Date: 07/04/20 Status: Orderedmagnesium oxide 400 mg (240 mg elemental magnesium) oral tablet 1 tablet, By Mouth, Daily, # 90 tablet, 0 Refills, Acute, 09/20/20 12:20:00 EST, [facility] 17475, 90, TAKE 1 TABLET BY MOUTH DAILY, [...] if th... Start Date: 08/30/20 Status: OrderedPen [place], 31 G x 5 mm BD Ultra [...] 11/29/20 7:42:00 EDT, Route to Pharmacy Electronically, [facility]/pharmacy #0693, Partial fill upon patient request ifthe [...] 1 Refills, Maintenance, 09/25/20 7:44:00 EST, Capsule, [facility]/pharmacy #0693, resent from 08/14, 160, cm, 09/12/20 14:03:00 EST, Height, 71.3, kg, 08/08/20 7:00:00 EST, Dry Weight Start Date: 09/25/20 Status: OrderedWellbutrin XL 300 mg/24 hours oral tablet, extended release 1 tablet = 300 mg, By Mouth, Daily, DOSAGE INCREASE, # 30 tablet, 5 Refills, Maintenance, 07/03/20 15:20:00 EST, ER Tablet, [facility]/pharmacy #0693, 160.02, cm, 07/03/20 14:54:00 EST, Height, 73.6, kg, 04/18/20 10:19:00 EDT, Dry Weight Start Date: 07/03/20 Status: OrderedZoloft 50 mg oral tablet 1 tablet = 50 mg, By Mouth, Daily, DOSAGE INCREASE, # 30 tablet, 0 Refills, Maintenance, 10/30/20 17:12:00 EST, Tablet, [facility]/pharmacy #0693, Partial fill upon patient request [...] cervical(Confirmed) Osteoporosis(Confirmed) Active *[facility] [phone] 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 50-70% bilaterally.3Patient's flour blender is [facility] and patient sees Dr. Gume Mart Social History Social History Type Response Tobacco Other: last cigarette 0. Sex
--- OUTSIDE RECORDS SUMMARY | 2022-06-09 08:49 | XMS_ITS | Continuity of Care Document ---
:1950 Author Organization [facility] Address [address] [place] [address] Drive [address] [place] [address]- Care Team Providers Name Role Phone Kristan SUTTON, Ranjeet Beatty Primary Care Physician Encounter [facility] Date(s): 04/18/20 - 04/25/20 [facility] [address] [place] [address] Drive [address] [place] [address]- [facility] Attending Physician: Nigel Boyd MD Referring Physician: [...] 07/19/08 Given 1Result Comment: [05/28/2017] [facility]: [id number] History: [id number] Note: VIS GIVEN-DATED Admin Note: vis [id number] Note: VIS [id number] Note: VIS-[id number] History: [facility] [id number] History: [facility] DEANGELO Gray Comment: [10/17/2015] PER NICO AT [id number] Note: VIS [id number] Note: VIS GIVEN Medications albuterol 90 mcg/inh inhalation powder 2 puffs, Inhalation, Every 6 hours, PRN as needed, # 1 each, 11 Refills, Maintenance, 12/29/18 9:38:36 EDT, Powder, 2 puffs Inhalation Every 6 hours,PRN:as needed Start Date: 12/29/18 Status: Orderedalendronate 70 mg oral tablet 1 tablet, By Mouth, Every week, # 12 tablet, 0 Refills, Maintenance, 03/17/20 11:27:00 EDT, [facility] STORE [facility], 160.02, cm, 03/14/20 13:30:00 EDT, Height, 81.6, kg, 07/27/19 14:52:00 EST, Dry Weight Start Date: 03/17/20 Status: Orderedallopurinol 300 mg oral tablet 1, tablet, By Mouth, Daily, # 90 tablet, Refills 0, Tot. Refills 0, Maintenance, 04/05/20 9:38:00 EDT, Route to Pharmacy Electronically, [facility]/pharmacy #[id number], 160.02, cm, 03/29/20 10:57:00 [...] CAPSULE BY MOUTH EVERY DAY, [facility]/pharmacy #[id number] Start Date: 04/20/19 Status: Orderedcyanocobalamin 500 mcg oral tablet 1 tablet = 500 mcg, By Mouth, Daily, # 90 tablet, 0 Refills, Maintenance, 02/11/20 13:33:00 EDT, Tablet, [facility]/pharmacy #0693, 160.02, cm, 02/11/20 13:03:00 EDT, Height, [...] Pharmacy Electronically, [facility]/pharmacy #[id number], 160.02, cm, 03/29/20 10:57:00 EDT,Height, 81.6, kg, 07/27/19 14:52:00 EST, Dry Weight Start Date: 04/07/20 Status: Orderedgabapentin 300 mg oral capsule 300 mg, 1, capsule, By Mouth, 3 times a day, # 90 capsule, Refills 5, Tot. Refills 5, Maintenance, 04/13/20 12:42:00 EDT, Route to Pharmacy Electronically, [facility]/pharmacy #0693, 160.02, cm, 03/29/20 10:57:00 [...] Maintenance, 04/24/20 9:53:00 EDT, Tablet, [facility]/pharmacy #[id number], 1 tablet By Mouth [...] Refills, Maintenance, 02/21/20 11:53:00 EDT, [facility]/pharmacy #[id number], 301-350: 12 units, 351-400: 14 units, 401-450: 1... Start Date: 02/21/20 Status: OrderedPen [place], 31 G x 5 mm BD Ultra [...] 07/20/19 16:14:12 EST, Route to Pharmacy Electronically, [id number], [facility]/pharmacy #[id number] Start Date: 07/20/19 Status: Orderedspironolactone 100 mg oral tablet 1, tablet, By Mouth, Daily, # 30 tablet, Refills 5, Tot. Refills 0, Maintenance, 12/07/19 13:00:00 EDT, Route to Pharmacy Electronically, [facility] STORE [facility], 160.02, cm, 11/02/19 15:34:00 EDT, Height, 81.6, kg, 07/27/19 14:52:00 EST, Dry Weight Start Date: 12/07/19 Status: OrderedtraMADol 50 mg oral tablet See Instructions, PRN Pain , Severe, 1-2 tablets by mouth every 6 hours, # 240 tablet, 1 Refills, Soft Stop, 03/14/20 14:29:00 EDT, [facility]/pharmacy #0693, 160.02, cm, 03/14/20 13:30:00 EDT, Height, [...] Soft Stop, 12/16/19 15:45:00 EDT, [facility]/pharmacy #0693, 160.02, cm, 11/02/19 15:34:00 EDT, Height, 81.6, kg, 07/27/19 14:52:00 EST, Dry Weight Start Date: 12/16/19 Status: OrderedVictoza 18 mg/3 mL subcutaneous solution See Instructions, INJECT 1.8 MG SUBCUTANEOUS DAILY, # 9 Unknown, 0 Refills, Maintenance, 03/03/20 15:42:00 EDT, [facility]/pharmacy #[id number], 160.02, cm, 02/11/20 13:03:00 EDT, Height, 81.6, kg, 07/27/19 14:52:00 EST, Dry Weight Start Date: 03/03/20 Status: OrderedVitamin D3 1000 intl units oral capsule 1 capsule = 1,000 International_Units, By Mouth, Daily, # 90 capsule, 3 Refills, Maintenance, 10/20/19 9:16:00 EST, Capsule, [facility]/pharmacy #[id number], resent from 08/14, 160.02, cm, 09/29/19 14:57:00 EST, Height, 81.6, kg, 07/27/19 14:52:00 EST, Dry Weight Start Date: 10/20/19 Status: OrderedWellbutrin XL 150 mg/24 hours oral tablet, extended release 1 tablet = 150 mg, By Mouth, Every 24 hours, do not crush or chew, # 30 tablet, 6 Refills, Maintenance, 12/09/19 16:12:00 EDT, ER Tablet, [facility]/pharmacy #[id number], 160.02, cm, 11/02/19 15:34:00 [...] myelopathy(Confirmed) OA (osteoarthritis), Active cervical(Confirmed) Osteoporosis(Confirmed) Active *[facility] [phone] 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 50-70% bilaterally.3Patient's fine arts teacher is [facility] and patient sees Dr. Gume Mart Vital Signs Most recent to oldest [Reference Range]: 1 Height 160.02 cm (04/18/20 10:19 AM) Weight 73.6 kg (04/18/20 10:19 AM) Body Mass Index [18.5-24.99] 28.74 *H* (04/18/20 10:19 AM) Dry Weight 73.6 kg (04/18/20 10:19 AM) Weight Obtained Via Standing scale (04/18/20 10:19 AM) Dry Weight Obtained Via Standing scale (04/18/20 10:19 AM) Social History Social History Type Response Smoking Status Current some day smoker; Typ e: Cigarettes; Other: less than 1/2 pack a day; Tobacco use times per day: 1/2 pack a day; entered on: 02/19/17 Sex
--- OUTSIDE RECORDS SUMMARY | 2022-06-09 08:49 | XMS_ITS | Continuity of Care Document ---
:1950 Author Organization [facility] [address] [place] [address]- Care Team Providers Name Role Phone Kristan SUTTON, Ranjeet Beatty Primary Care Physician Encounter [facility] Date(s): 07/09/19 - 09/05/19 [facility] [address] [place] [address] Drive [address] [place] [address]- [facility] Attending Physician: Nigel Boyd MD Allergies, Adverse [...] (PPV23) (oldterm)11 07/19/08 Given 1Result Comment: [05/28/2017] [facility]: [id number] History: [id number] Note: VIS GIVEN-DATED Admin Note: vis [id number] Note: VIS [id number] Note: VIS-[id number] History: [facility] [id number] History: [facility] DEANGELO Gray Comment: [10/17/2015] PER NICO AT [id number] Note: VIS [id number] Note: VIS GIVEN Medications albuterol 90 mcg/inh [...] TAKE 1 TABLET BY MOUTH EVERY DAY, [facility]/pharmacy #[id number] Start Date: 06/09/19 Status: OrderedBACK [...] 0 Refills, Maintenance, 08/16/19 13:14:00 EST, Tablet, [facility]/pharmacy #[id number], 1 tablet By Mouth 2 [...] TABLET BY MOUTH AT BEDTIME NEEDEDFOR INSOMNIA, [facility]/pharmacy #[id number] Start Date: 03/02/19 Status: OrderedCVS VITAMIN D3 1,000 UNIT SFGL See Instructions, # 90 capsule, TAKE 1 CAPSULE BY MOUTH EVERY DAY, [facility]/pharmacy #[id number] Start Date: 04/20/19 [...] each, 0 Refills, Maintenance, 01/01/19 14:36:12 EDT, [place], 2 sprays Nares, Both Daily in AM [...] 1 TABLET BY MOUTH TWICE A DAY, [facility]/pharmacy #[id number] Start Date: 06/02/19 Status: Orderedgabapentin 300 [...] Call PCP... Start Date: 10/29/17 Status: OrderedPen [place], 31 G x 5 mm BD Ultra [...] 07/20/19 16:14:12 EST, Route to Pharmacy Electronically, [id number], [facility]/pharmacy #[id number] Start Date: 07/20/19 Status: Orderedspironolactone 100 mg oral tablet See Instructions, # 30 tablet, Refills 5 Tot. Refills 5, TAKE 1 TABLET BY MOUTH EVERY DAY, [facility]/pharmacy #[id number] Start Date: 06/23/19 Status: OrderedtraMADol 50 mg oral tablet See Instructions, TAKE 1 TO 2 TABLETS BY MOUTH EVERY 6 HOURS, # 240 tablet, 1 Refills, Soft Stop, 08/23/19 16:39:00 EST, [facility]/pharmacy #0693, 160.02, cm, 08/16/19 12:59:00 EST, Height, [...] 74 UNITS DAILY, MAX DOSE 140 UNITS, [facility]/pharmacy #[id number] Start Date: 04/20/19 Status: OrderedVictoza [...] without Active myelopathy(Confirmed) OA (osteoarthritis), Active cervical(Confirmed) *[facility] [phone] 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 50-70% bilaterally.3Patient's associate research scientist is [facility] and patient sees Dr. Gume Mart Social History Social History Type Response Smoking Status Current some day smoker; Typ e: Cigarettes; Other: less than 1/2 pack a day; Tobacco use times per day: 1/2 pack a day; entered on: 02/19/17 Sex
--- OUTSIDE RECORDS SUMMARY | 2022-06-09 08:49 | XMS_ITS | Continuity of Care Document ---
:1950 Author Organization [facility] Address [address] [place] [address]- Care Team Providers Name Role Phone Kristan SUTTON, Ranjeet Beatty Primary Care Physician Encounter [facility] Date(s): 03/24/21 - 03/27/[address] [address]- Encounter Diagnosis Cellulitis of foot (Final) - 03/24/21 Discharge Disposition: A-Transfer SNF Attending Physician: Jazlyn Kellogg MD Admitting Physician: Debbie Livingston MD, Blake Pérez Referring Physician: Not on Staff, Referring MD [...] Live8, 9 08/30/15 Recorded pneumococcal 13-valent vaccine 10/28/15 Given pneumococcal 23-valent vaccine 10/05/13 Recorded tetanus/diphtheria/pertussis, acel(Tdap) 08/08/10 Recorde d Tet/Diphth/Acel, Pertussis (oldterm)10 07/19/08 Given Pneumococcal Poly (PPV23) (oldterm)11 07/19/08 Given 1Result Comment: [05/28/2017] [facility]: [id number] History: [id number] Note: VIS GIVEN-DATED Admin Note: vis [id number] Note: VIS [id number] Note: [id number] History: [facility] [id number] History: [facility] [id number] Comment: [10/17/2015] PER NICO AT [id number] Note: VIS [id number] Note: VIS GIVEN Medications 12 inch Grab [...] Refills, Maintenance, 05/05/20 14:02:00 EDT, Powder, [facility]/pharmacy #[id number], 2 puffs Inhalation Every 6 hours,PRN:as needed, 160.02, cm, 05/05/20 13:43:00 EDT, Height, 73.6, kg, 04/18/20 10:1... Start Date: 05/05/20 Status: Orderedalendronate 70 mg oral tablet 1 tablet, By Mouth, Every week, # 12 tablet, 6 Refills, Maintenance, 01/09/21 16:07:00 EDT, [facility] STORE [facility]17, 160, cm, 12/25/20 14:20:00 EDT, Height, 77.5, kg, 10/05/20 14:31:00 EST, Dry Weight Start Date: 01/09/21 Status: Orderedallopurinol 300 mg oral tablet 300 mg, 1, tablet, By Mouth, Daily, # 90 tablet, Refills 1, Tot. Refills 1, Maintenance, 01/26/21 12:31:00 EDT, Route to Pharmacy Electronically, [facility]/pharmacy #[id number], 160, cm, 12/25/20 14:20:00 [...] tablet, 5 Refills, Maintenance, 03/12/21 10:51:00 EDT, [facility] ST[facility], 160, cm, 02/27/21 13:50:00 EDT, Height, 79.6, kg, 02/25/21 11:44:00 EDT, Dry Weight Start Date: 03/12/21 Status: Orderedcephalexin monohydrate 500 mg oral tablet 1 tablet = 500 mg, By Mouth, 4 times a day, for 8 days, # 32 tablet, 0 Refills, Acute 04/04/21 9:35:00 EDT, 03/27/21 9:35:00 EDT, Tablet, Partial fill upon patient request if the prescription is for a schedule II opioid drug. Start Date: 03/27/21 Stop Date: 04/04/21 Status: OrderedCompression Stockings See Instructions, # 1 [...] 1 Refills, Maintenance, 02/08/21 9:52:00 EDT, Tablet, [facility]/pharmacy #[id number], 160, cm, 01/25/21 14:11:00 [...] 9:05:00 EDT, Route to Pharmacy Electronically, [facility]/pharmacy #[id number], 160, cm, 01/25/21 14:11:00 EDT, Height, 77.5, kg, 10/05/20 14:31:00 EST, Dry Weight Start Date: 02/06/21 Stop Date: 08/05/21 Status: OrderedHumira 40 mg subcutaneous solution See Instructions, 40 mg [id number], 0 Refills, Maintenance, 10/23/20 13:46:00 EST, Partial fill upon patient request if the prescription is for a schedule II opioid drug. Start Date: 10/23/20 Status: OrderedLyrica 150 mg oral capsule 1 capsule = 150 mg, By Mouth, 2 times a day, DOSAGE INCREASE, # 60 capsule, 3 Refills, Maintenance, 01/23/21 14:56:00 EDT, Capsule, [facility]/pharmacy #[id number], 160, cm, 01/14/21 11:46:00 EDT, Height, 77.5, kg,10/05/20 14:31:00 EST, Dry Weight Start Date: 01/23/21 Status: Orderedmagnesium oxide 400 mg (240 mg elemental magnesium) oral tablet 1 tablet, By Mouth, Daily, # 90 tablet, 0 Refills, Acute, 09/20/20 12:20:00 EST, [facility], 90, TAKE 1 TABLET BY MOUTH DAILY, 160, cm, 09/12/20 14:03:00 EST, Height, 71.3, kg, 08/08/20 7:00:00 EST, Dry Weight Start Date: 09/20/20 Status: OrderedMelatonin 3 mg oral tablet 1 tablet = 3 mg, By Mouth, Daily at bedtime, PRN for insomnia, [facility], # 90 tablet, 3 Refills, Maintenance, 04/24/20 9:53:00 EDT, Tablet, [facility]/pharmacy #[id number], 1 tablet By Mouth [...] if th... Start Date: 08/30/20 Status: OrderedPen [place], 31 G x 5 mm BD Ultra [...] 15:06:00 EDT, Route to Pharmacy Electronically, [facility]/pharmacy #[id number], 160, cm, 12/25/20 14:20:00 EDT, Height, 77.5, kg, 10/05/20 14:31:00 ESTDr... Start Date: 01/09/21 Status: Orderedspironolactone 100 mg oral tablet 100 mg, 1, tablet, By Mouth, Daily, # 90 tablet, Refills 0, Tot. Refills 0, Maintenance, 01/23/21 14:56:00 EDT, Route to Pharmacy Electronically, [facility]/pharmacy #[id number], Partial fill upon patient request if the prescription is for a schedule II opioid thomasMillie. 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 Gume Mart Results Radiology Reports Exam Date Time Procedure Performing Provider Status 03/26/21 5:23 PM Shoulder Min 2 Views Left Zari Waggoner; Nadine (Verified) Notes:(Shoulder Min 2 Views Left) Reason For Exam: PainRESULT: Shoulder Min 2 Views Left Shoulder Min 2 Views Left, 2 views Reason: Pain; Clinical Question(s): Fracture COMPARISON: None. FINDINGS: AP internally rotated and Y view obtained. Note that the study is technically suboptimal as it excludes a portion of the superior aspect of the acromion and a portion of the AC joint. There is calcification in the region of the rotator cuff suggesting tendinopathy. There is hypertrophic change at the acromion clavicular joint. There is flattening of the humeral head which may be chronic, and only well seen on the AP internally rotated view. Glenohumeral joint is not dislocated. The included portions of the peripheral left lung apex demonstrate no suspicious lesions. IMPRESSION: Suboptimal examination, no acute fracture or dislocation. Evidence of rotator cuff tendinopathy, chronic flattening of the humeral head and degenerative change of the acromioclavicular joint. WSN: [id number] Ordering Physician: Jazlyn Kellogg Dictated By: Lara Tello MD, I Dictated Date/Time: 03/26/21 5:39 pm Reviewed By: Lara Tello MD, I Signed By: Lara Tello MD, I Signed Date/Time: 03/26/21 5:39 pm Transcribed By: JOSE Transcribed Date/Time: 03/26/21 5:35 pm Exam Date Time Procedure Performing Provider Status 03/26/21 5:23 PM Knee 1 or 2 Views Left Zari Waggoner; Auth (Ve rified) Notes:(Knee 1 or 2 Views Left) Reason For Exam: PainRESULT: Knee 1 or 2 Views Left Knee 1 or 2 Views Left, views Reason: Pain; Clinical Question(s): Fracture COMPARISON: 01/20/2021 FINDINGS: There is no evidence of acute or healing fracture, dislocation or bone lesion. Very mild arthritic change at the knee joint. No evidence of significant joint effusion. Vascular calcifications. IMPRESSION: No acute abnormality.. WSN: [id number] Ordering Physician: Jazlyn Kellogg Dictated By: Cecil Lawrence MD Dictated Date/Time: 03/26/21 5:34 pm Reviewed By: Cecil Lawrence MD Signed By: Cecil Lawrence MD Signed Date/Time: 03/26/21 5:34 pm Transcribed By: JOSE Transcribed Date/Time: 03/26/21 5:32 pm Exam Date Time Procedure Performing Provider Status 03/24/21 10:22 AM Foot Min 3 Views Left Alma Rene; Auth (V erified) Notes:(Foot Min 3 Views Left) Reason For Exam: PainRESULT: Foot Min 3 Views Left Foot Min 3 Views Left, 3 views Hx of Present Illness: pt come to ED for bilateral foot pain and redness, was admitted for the same thing and discharged home on abx. Non-compliant with DM treatment. pt did not want to get up today and ate candy for breakfast. pt states he feet hurt and she cant walk; Reason: Pain; Clinical Question(s): Fracture COMPARISON: Multiple prior left ankle radiographs, the most recent of which is dated 02/25/2021. FINDINGS: No fractures or bone lesions. There is dorsal bony proliferation of the talonavicular joint. There is a small calcaneal spur and enthesopathy at the attachment of the Achilles tendon. Unchanged appearance of a well-corticated ossific density adjacent to the medial malleolus. There is mild degenerative change of the first metatarsal phalangeal joint. Normal soft tissues. IMPRESSION: No acute displaced fracture. Degenerative change as above. WSN: [id number] Ordering Physician: Eliz Wallace Dictated By: Mickie Croft MD Dictated Date/Time: 03/24/21 10:51 a Reviewed By: Mickie Croft MD Signed By: Mickie Croft MD Signed Date/Time: 03/24/21 10:51 am Transcribed By: JOSE Transcribed Date/Time: 03/24/21 10:41 am Exam Date Time Procedure Performing Provider Status 03/24/21 10:22 AM Foot Min 3 Views Right EdgardAlma oliva; Auth ( Verified) Notes:(Foot Min 3 Views Right) Reason For Exam: unable to walk, b/l foot pain;PainRESULT: Foot Min 3 Views Right Foot Min 3 Views Right, 3 views Hx of Present Illness: pt come to ED for bilateral foot pain and redness, was admitted for the same thing and discharged home on abx. non-compliant with DM treatment. pt did not want to get up today and ate candy for breakfast. pt states her feet hurt and she cant walk; Reason: Pain; unable to walk, bl foot pain; Clinical Question(s): Fracture COMPARISON: Right foot radiographs dated 09/30/2017. FINDINGS: No fractures or bone lesions. There is mild degenerative change of the first metatarsal phalangeal joint. Mild degenerative changeis seen with dorsal bony proliferation of the talonavicular joint. There is a small plantar calcaneal spur and enthesopathy at the attachment of the Achilles tendon. There are vascular calcifications. No radiopaque foreign body. IMPRESSION: No acute displaced fracture. Mild degenerative change as above. WSN: [id number] Ordering Physician: Eliz Wallace Dictated By: Mickie Croft MD Dictated Date/Time: 03/24/21 10:41 a Reviewed By: Mickie Croft MD Signed By: Mickie Croft MD Signed Date/Time: 03/24/21 10:41 am Transcribed By: JOSE Transcribed Date/Time: 03/24/21 10:38 am Vital Signs Most recent to oldest 1 2 3 [Reference Range]: Weight 80.8 kg (03/24/21 8:58 PM) Oxygen Saturation [94-100 %] 98 % 95 % 95 % (03/27/21 8:00 AM) (03/26/21 8:00 PM) (03/26/21 4:00 P M) Pulse Rate [55-90 bpm] 101 bpm 94 bpm 95 bpm *H* *H* *H* (03/27/21 8:00 AM) (03/26/21 8:00 PM) (03/26/21 4:00 P M) Blood Pressure [90-138/55-84 114/88 mm Hg 136/52 mm Hg 131 /51 mm Hg mm Hg] (03/27/21 8:00 AM) (03/26/21 8:00 PM) (03/26/21 4:00 P M) Respiratory Rate [16-30 22 br/min 18 br/min 18 br/mi n br/min] (03/27/21 8:00 AM) (03/26/21 8:00 PM) (03/26/21 4:00 P M) Temperature [96.8-100.4 97.9 DegF 98.0 DegF 98.2 Deg F DegF] (03/27/21 8:00 AM) (03/26/21 8:00 PM) (03/26/21 4:00 P M) Mode of Delivery (Oxygen) Room air Room air Room a ir (03/27/21 8:00 AM) (03/26/21 8:00 PM) (03/26/21 4:00 P M) Blood pressure sites Arm, right Arm, left Arm, left (03/27/21 8:00 AM) (03/26/21 8:00 PM) (03/26/21 4:28 A M) Temperature Route Oral Oral Oral (8/3/21 8:00 AM) (03/26/21 8:00 PM) (03/26/21 4:00 P M) Dry Weight 77.27 kg (03/24/21 8:58 PM) Weight Obtained Via Bed scale (03/24/21 8:58 PM) Dry Weight Obtained Via Patient/family stated (03/24/21 8:58 PM) Social History Social History Type Response Tobacco Other: last cigarette 0. Sex
--- OUTSIDE RECORDS SUMMARY | 2022-06-09 08:49 | XMS_ITS | Continuity of Care Document ---
:1950 Author Organization [facility] Adult Address [address] [place] [address]- Care Team Providers Name Role Phone Kristan SUTTON, Ranjeet Beatty Primary Care Physician Encounter [facility] Date(s): 02/11/20 - 02/18/20 [facility] Adult [address] [place] [address]- [facility] Encounter Diagnosis Edema of both lower extremities (Discharge Diagnosis) - 02/11/20 Attending Physician: Luisa Durham NP Allergies, Adverse Reactions, Alerts Substance Reaction [...] Given 1Result Comment: [05/28/2017] [facility]: [id number] History: [id number] Note: VIS GIVEN-DATED Admin Note: vis [id number] Note: VIS wbjcq5Uhuls Note: VIS-ZQNQU5Rohsrecr History: [facility] [id number] History: [facility] [id number] Comment: [10/17/2015] PER NICO AT [id number] Note: VIS [id number] Note: VIS GIVEN Medications albuterol 90 mcg/inh inhalation powder 2 puffs, Inhalation, Every 6 hours, PRN as needed, # 1 each, 11 Refills, Maintenance, 12/29/18 9:38:36 EDT, Powder, 2 puffs Inhalation Every 6 hours,PRN:as needed Start Date: 12/29/18 Status: Orderedalendronate 70 mg oral tablet 1 tablet = 70 mg, By Mouth, Every week, # 12 tablet, 0 Refills, Maintenance, 12/29/19 9:01:00 EDT, Tablet, [facility]/pharmacy #0693, 160.02, cm, 11/02/19 15:34:00 EDT, Height, 81.6, kg, 07/27/19 14:52:00 EST, Dry Weight Start Date: 12/29/19 Status: Orderedallopurinol 300 mg oral tablet 1, tablet, By Mouth, Daily, # 90 tablet, Refills 1, Tot. Refills 0, Maintenance, 11/08/19 12:00:00 EDT, Route to Pharmacy Electronically, [facility] STORE 04435, 160.02, cm, 11/02/19 15:34:00 EDT, Height, 81.6, [...] TAKE 1 CAPSULE BY MOUTH EVERY DAY, [facility]/pharmacy #0693 Start Date: 04/20/19 Status: Orderedcyanocobalamin 500 mcg oral tablet 1 tablet = 500 mcg, By Mouth, Daily, # 90 tablet, 0 Refills, Maintenance, 02/11/20 13:33:00 EDT, Tablet, [facility]/pharmacy #0693, 160.02, cm, 02/11/20 13:03:00 EDT, Height, [...] 11/08/19 11:59:00 EDT, Route to Pharmacy Electronically, [facility] STORE 69340, 160.02, cm, 11/02/19 15:34:00 EDT, Height, 81.6, kg, 07/27/19 14:52:00 EST, Dry Weight Start Date: 11/08/19 Status: Orderedgabapentin 300 mg oral capsule 300 mg, 1, capsule, By Mouth, 3 times a day, # 90 capsule, Refills 5, Tot. Refills 5, Maintenance, 11/02/19 16:04:00 EDT, Route to Pharmacy Electronically, [facility]/pharmacy #0693, 160.02, cm, 11/02/19 15:34:00 EDT, Height, [...] 3 Refills, Maintenance, 01/07/20 16:00:00 EDT, Tablet, [facility]/pharmacy #0693, 1 tablet By Mouth Daily at [...] Call PCP... Start Date: 10/29/17 Status: OrderedPen [place], 31 G x 5 mm BD Ultra [...] 07/20/19 16:14:12 EST, Route to Pharmacy Electronically, [id number], [facility]/pharmacy #0693 Start Date: 07/20/19 Status: Orderedspironolactone 100 mg oral tablet 1, tablet, By Mouth, Daily, # 30 tablet, Refills 5, Tot. Refills 0, Maintenance, 12/07/19 13:00:00 EDT, Route to Pharmacy Electronically, [facility] STORE 12599, 160.02, cm, 11/02/19 15:34:00 EDT, Height, 81.6, kg, 07/27/19 14:52:00 EST, Dry Weight Start Date: 12/07/19 Status: OrderedtraMADol 50 mg oral tablet See Instructions, PRN Pain , Severe, 1-2 tablets by mouth every 6 hours, # 240 tablet, 1 Refills, Soft Stop, 01/07/20 15:58:00 EDT, [facility]/pharmacy #0693, 160.02, cm, 01/07/20 15:07:00 EDT, Height, 81.6, kg, 07/27/19 14:52:00 EST, Dry Weight Start Date: 01/07/20 Status: OrderedTrelegy Ellipta inhalation powder 1 puffs, Inhalation, Daily, at the same time every day, # 60 each, 0 Refills, Maintenance, 12/30/18 14:27:13 EDT, Powder Start Date: 12/30/18 Status: OrderedTresiba FlexTouch 200 units/mL subcutaneous solution See Instructions, INJECT SUBCUTANEOUSLY TAKING 76 UNITS DAILY, MAX DOSE 140 UNITS, # 9 Unknown, 5 Refills, Soft Stop, 12/16/19 15:45:00 EDT, [facility]/pharmacy #0693, 160.02, cm, 11/02/19 15:34:00 EDT, Height, 81.6, kg, 07/27/19 14:52:00 EST, Dry Weight Start Date: 12/16/19 Status: OrderedVictoza 18 mg/3 mL subcutaneous solution See Instructions, INJECT 1.8 MG SUBCUTANEOUS DAILY, # 9 Unknown, 0 Refills, Maintenance, 02/03/20 10:14:00 EDT, [facility]/pharmacy #0693, 160.02, cm, 01/07/20 15:07:00 EDT, Height, 81.6, kg, 07/27/19 14:52:00 EST, Dry Weight Start Date: 02/03/20 Status: OrderedVitamin B12 500 mcg oral tablet [...] Active cervical(Confirmed) Osteoporosis(Confirmed) Active *[facility] [phone] 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 Gume Mart Diagnosis Diagnosis Type Effective [facility] Health Clinical Infor mant Status Service Edema of both Discharge 02/11/20 lower extremities Diagnosis Vital Signs Most recent to oldest [Reference Range]: 1 Height 160.02 cm (02/11/20 1:03 PM) Weight 78.7 kg (02/11/20 1:03 PM) Oxygen Saturation [94-100 %] 95 % (02/11/20 1:03 PM) Pulse Rate [55-90 bpm] 95 bpm *H* (02/11/20 1:03 PM) Body Mass Index [18.5-24.99] 30.73 *>HHI* (02/11/20 1:03 PM) Blood Pressure [90-138/55-84 mm Hg] 140/80 mm Hg *H* (02/11/20 1:03 PM) Respiratory Rate [16-30 br/min] 18 br/min (02/11/20 1:03 PM) Temperature [96.8-100.4 DegF] 99.8 DegF (02/11/20 1:03 PM) Mode of Delivery (Oxygen) Room air (02/11/20 1:03 PM) Blood pressure sites Arm, right (02/11/20 1:03 PM) Temperature Route Oral (02/11/20 1:03 PM) Weight Obtained Via Standing scale (02/11/20 1:03 PM) Social History Social History Type Response Smoking Status Current some day smoker; Typ e: Cigarettes; Other: less than 1/2 pack a day; Tobacco use times per day: 1/2 pack a day; entered on: 02/19/17 Sex
--- OUTSIDE RECORDS SUMMARY | 2022-06-09 08:49 | XMS_ITS | Continuity of Care Document ---
:1950 Author Organization [facility] Address [address] [place] [address]- Care Team Providers Name Role Phone Kristan SUTTON, Ranjeet Beatty Primary Care Physician Encounter [facility] Date(s): 04/13/21 - 05/13/21 [facility] [address] [place] [address]- Allergies, Adverse Reactions, Alerts Substance Reaction Severity [...] (oldterm)11 07/19/08 Given 1Result Comment: [05/28/2017] [facility]: [id number] History: [id number] Note: VIS GIVEN-DATED Admin Note: vis [id number] Note: VIS rwowj7Nidja Note: VIS-[id number] History: [facility] [id number] History: [facility] [id number] Comment: [10/17/2015] PER NICO AT [id number] Note: VIS [id number] Note: VIS GIVEN Medications 12 inch Grab [...] 01/09/21 16:07:00 EDT, [facility] STORE 99709, 160, cm, 12/25/20 14:20:00 EDT, Height, 77.5, [...] Refills, Maintenance, 03/12/21 10:51:00 EDT, [facility], 160, cm, 02/27/21 13:50:00 EDT, Height, 79.6, [...] mg subcutaneous solution See Instructions, 40 mg P9iyedm, 0 Refills, Maintenance, 10/23/20 13:46:00 EST, Partial [...] 09/20/20 12:20:00 EST, [facility] ST[facility] 13463, 90, TAKE 1 TABLET BY MOUTH DAILY, 160, cm, 09/12/20 14:03:00 EST, Height, 71.3, kg, 08/08/20 7:00:00 EST, Dry Weight Start Date: 09/20/20 Status: OrderedMelatonin 3 mg oral tablet 1 tablet = 3 mg, By Mouth, Daily at bedtime, PRN for insomnia, [facility], # 90 tablet, 3 Refills, Maintenance, 04/24/20 9:53:00 EDT, Tablet, [facility]/pharmacy #[id number], 1 tablet By Mouth Daily [...] if th... 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 Gume Mart Social History Social History Type Response Tobacco Other: last cigarette 0. Sex
--- OUTSIDE RECORDS SUMMARY | 2022-06-09 08:49 | XMS_ITS | Continuity of Care Document ---
:1950 Author Organization [facility] Adult Address [address] [place] [address]- Care Team Providers Name Role Phone Ranjeet Rushing MD Primary Care Physician [facility] [facility] Date(s): 05/08/22 - 06/07/22 [facility] Adult [address] [place] [address]- Allergies, Adverse Reactions, Alerts Substance Reaction Severity [...] 1Result Comment: [05/28/2017] [facility]: [id number] History: [id number] Note: VIS GIVEN-DATED Admin Note: vis [id number] Note: VIS vchki9Dvktn Note: VIS-NVWWQ2Zoictbcj History: [facility] [id number] History: [facility] [id number] Comment: [10/17/2015] PER NICO AT [id number] Note: VIS [id number] Note: VIS GIVEN Medications 12 inch Grab [...] 11 Refills, Maintenance, 05/07/22 16:00:00 EDT, Powder, [facility]/pharmacy #0693, 2 puffs Inhalation Every 6 hours,PRN:as needed, 160, cm, 04/24/22 8:34:00 EDT, Height, 72.7, kg, 04/24/22 8:34:00... Start Date: 05/07/22 Status: Orderedalendronate 70 mg oral tablet 1 tablet, By Mouth, Every week, # 12 tablet, 1 Refills, [facility] STORE 30871, 160, cm, 01/17/22 14:38:00 EDT, Height, 74.8, kg, 11/01/21 15:05:00 EST, Dry Weight Start Date: 01/30/22 Status: Orderedallopurinol 300 mg oral tablet 1, tablet, By Mouth, Daily, # 90 tablet, Refills 0, Route to Pharmacy Electronically, [facility], 160, cm, 02/21/22 15:11:00 EDT, Height, 74.8, kg, 11/01/21 15:05:00 EST, Dry Weight Start Date: 03/27/22 Status: OrderedBACK BRACE BACK BRACE, See Instructions, # 1 each, Refills 0, Tot. Refills 0, Maintenance, DX BACK PAIN M54.9 DANTE LIFETIME HT 5'3 WT 182 LB, 07/23/16 14:35:27, Compound Start Date: 07/23/16 Status: OrderedBD UF SHORT PEN NEEDLE [id number] BD UF SHORT PEN NEEDLE [id number], See Instructions, # 200 Unknown, 5 Refills, [...] Status: OrderedCVS VITAMIN D3 25 MCG SOFTGEL [facility] VITAMIN D3 25 MCG SOFTGEL, 1, capsule, By Mouth, Daily, # 90 capsule, 1 Refills, 160, cm, 10/16/21 14:42:00 EST, Height, 75, kg, 09/14/21 11:51:00 EST, Dry Weight Start Date: 10/17/21 Status: Orderedcyanocobalamin 500 mcg oral tablet 1 tablet = 500 mcg, By Mouth, Daily, # 90 tablet, 3 Refills, Maintenance, 04/12/22 16:02:00 EDT, Tablet, [facility]/pharmacy #0693, 160, cm, 04/10/22 14:31:00 EDT, Height, [...] 05/23/22 13:56:00 EDT, Route to Pharmacy Electronically, [facility]/pharmacy #0693, Partial fill upon patient requestif the [...] tablet, Refills 1, Route to Pharmacy Electronically, [facility] 43394, 160, cm, 02/21/22 15:11:00 EDT, Height, 74.8, kg, 11/01/21 15:05:00 EST, Dry Weight Start Date: 03/12/22 Status: OrderedLidoderm 5% film 1 patch, Topically, Daily, # 30 patch, 11 Refills, Maintenance, 12/28/21 15:03:00 EDT, [facility]/pharmacy #0693, Partial fill upon [...] Refills, Maintenance, 03/26/22 10:58:00 EDT, Capsule, [facility]/pharmacy #0693, 160, cm, 02/21/22 15:11:00 EDT, Height, 74.8, kg,11/01/21 15:05:00 EST, Dry Weight Start Date: 03/26/22 Status: Orderedmagnesium oxide 400 mg oral tablet 1 tablet, By Mouth, Daily, # 100 tablet, 2 Refills, [facility] STORE 17143, 160, cm, 02/21/22 15:11:00 EDT,Height, 74.8, kg, 11/01/21 15:05:00 EST, Dry Weight Start Date: 03/28/22 Status: OrderedMelatonin 3 mg oral tablet 1 tablet = 3 mg, By Mouth, Daily at bedtime, PRN for insomnia, [facility], # 90 tablet, 3 Refills, Maintenance, 10/17/21 12:02:00 EST, Tablet, [facility]/pharmacy #0693, 1 [...] tablet, 0 Refills, Maintenance, 05/23/22 13:55:00EDT, Tablet, [facility]/pharmacy #0693, Partial fill upon patient request if the prescription is for a schedule II opioid drug., 160, cm, 05/17/22 9:55:00 ED... Start Date: 05/23/22 Status: OrderedMultivitamin 1 tablet, By Mouth, Daily, 0 Refills, Maintenance, 12/09/19 16:05:00 EDT Start Date: 12/09/19 Status: OrderedPen [place], 31 G x 5 mm BD Ultra [...] tablet, 0 Refills, Maintenance, 04/24/22 17:19:00EDT, Tablet, [facility]/pharmacy #0693, Partial fill [...] 17:53:00 EST, Route to Pharmacy Electronically, [facility]/pharmacy #0693, 160, cm, 09/14/21 11:51:00 EST, [...] Refills 1, Route to Pharmacy Electronically, [facility] STORE 29536, 160, cm, 11/27/21 14:08:00 EDT, Height, 74.8, kg, 11/01/21 15:05:00 EST, Dry Weight Start Date: 01/11/22 Status: OrderedtraMADol 50 mg oral tablet See Instructions, TAKE 1-2 TABLETS BY MOUTH EVERY 6 HOURS SCHEDULE FOLLOW VISIT, NEEDED FOR PAIN,# 240 tablet, 5 Refills, Maintenance, 01/17/22 11:33:00 EDT, [facility]/pharmacy #0693, 160, cm, 11/27/21 14:08:00 EDT, [...] 05/23/22 13:56:00 EDT, Route to Pharmacy Electronically, [facility]/pharmacy #0693, Partial fill upon patientrequest if [...] Refills, Maintenance, 04/19/21 11:35:00 EDT, Powder, [facility]/pharmacy #0693, Partial fill upon [...] Refills, Soft Stop, 07/26/21 11:05:00 EST, [facility]/pharmacy #0693, 160, cm, 07/26/21 10:45:00 EST, [...] Refills, Maintenance, 05/07/22 15:49:00 EDT, [facility], 160, cm, 04/24/22 8:34:00 EDT, Height, 72.7, [...] 10/12/09 Active pain Chronic kidney Confirmed Active disease, stage 3b3 COPD (chronic Confirmed Active obstructive pulmonary disease) Cigarette smoker Confirmed Active Decreased ROM of neck Confirmed Active Dementia4 Confirmed Active Diabetes mellitus - Confirmed 07/19/08 Active insulin5 Diabetic neuropathy Confirmed Active Current use of [...] (osteoarthritis), Confirmed Active cervical Osteoporosis Confirmed Active *[facility] [phone] 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 50-70% bilaterally.3Per chart review meeting GFR [id number] MOCA done at [facility]1Vonopcd's business analytics analyst is [facility] and patient sees Dr. Gume Mart Social History Social History Type Response Smoking Status Former smoker, quit more mark n 30 days ago entered on: 09/28/21 Sex Patient Care team information PersonnelName: Kristan SUTTON, Ranjeet Beatty Address: Address: [address] [place] [address] [place], [place] [address]
--- OUTSIDE RECORDS SUMMARY | 2022-06-09 08:49 | XMS_ITS | Continuity of Care Document ---
:1950 Author Organization [facility] Address [address] [place] [address], [address] [place] [address]- Care Team Providers Name Role Phone Kristan SUTTON, Ranjeet Beatty Primary Care Physician Encounter [facility] Date(s): 10/23/20 - 10/30/[address], [address] [place], [place] [address] Attending Physician: Gabby Bernard DO Allergies, Adverse Reactions, Alerts Substance Reaction Severity [...] (PPV23) (oldterm)11 07/19/08 Given 1Result Comment: [05/28/2017] [facility]: [id number] History: [id number] Note: VIS GIVEN-DATED Admin Note: vis [id number] Note: VIS uzinp7Glhun Note: VIS-DJHUM9Vlxefnwa History: [facility] [id number] History: [facility] DEANGELO Gray Comment: [10/17/2015] PER NICO AT [id number] Note: VIS [id number] Note: VIS GIVEN Medications 12 inch Grab Bars 12 inch Grab Bars, See Instructions, # 2 each, Refills 0, Tot. Refills 0, Maintenance, Grab bars : Length 12inches Use as directed DX Unsteady Gait ICD10 R26.81 HT: 5'3 Weight 162lbs Length of need Lifetime, 07/07/20 11:45:00 EST, Supply Start Date: 07/07/20 Status: OrderedADMIT TO [facility] AD[facility], See Instructions, # 1 each, Refills 0, Tot. Refills 0, Maintenance, FAX [phone] ADMIT TO SHELTER, PT, OT. 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 Refills 0, Maintenance, 10/28/20 12:31:00 EST, Route to Pharmacy Electronically, [facility]/pharmacy #[id number], 160, cm, 10/20/20 15:01:00 EST, [...] 1 Refills, Maintenance, 09/28/20 11:53:00 EST, Tablet, [facility]/pharmacy #0693, 160, cm, 09/12/20 14:03:00 [...] 07/06/20 15:48:00 EST, Route to Pharmacy Electronically, [facility]/pharmacy #0693, 160.02, cm, 07/03/20 14:54:00 EST,Height, 73.6, kg, 04/18/20 10:19:00 EDT, Dry Weight Start Date: 07/06/20 Stop Date: 10/04/20 Status: OrderedHumira 40 mg subcutaneous solution See Instructions, 40 mg [id number], 0 Refills, Maintenance, 10/23/20 13:46:00 EST, Partial fill upon patient request if the prescription is for a schedule II opioid drug. Start Date: 10/23/20 Status: OrderedLyrica 150 mg oral capsule 1 capsule = 150 mg, By Mouth, 2 times a day, DOSAGE INCREASE, # 60 capsule, 3 Refills, Maintenance, 07/04/20 11:46:00 EST, Capsule, [facility]/pharmacy #0693, 160.02, cm, 07/03/20 14:54:00 EST, Height, 73.6, kg, 04/18/20 10:19:00 EDT, Dry Weight Start Date: 07/04/20 Status: Orderedmagnesium oxide 400 mg (240 mg elemental magnesium) oral tablet 1 tablet, By Mouth, Daily, # 90 tablet, 0 Refills, Acute, 09/20/20 12:20:00 EST, [facility] STORE 36759, 90, TAKE 1 TABLET BY MOUTH DAILY, [...] if th... Start Date: 08/30/20 Status: OrderedPen [place], 31 G x 5 mm BD Ultra [...] 06/28/20 9:31:00 EST, Route to Pharmacy Electronically, [facility]/pharmacy #0693, 160.02, cm, 06/01/20 [...] # 9 Unknown, 5 Refills, 06/20/20 15:08:00EDT, [facility]/pharmacy #0693, 160.02, cm, 06/01/20 [...] Refills, Maintenance, 07/03/20 15:20:00 EST, ER Tablet, [facility]/pharmacy #0693, 160.02, cm, 07/03/20 14:54:00 EST, Height, 73.6, kg, 04/18/20 10:19:00 EDT, Dry Weight Start Date: 07/03/20 Status: OrderedZoloft 50 mg oral tablet 1 tablet = 50 mg, By Mouth, Daily, DOSAGE INCREASE, # 30 tablet, 0 Refills, Maintenance, 10/30/20 17:12:00 EST, Tablet, [facility]/pharmacy #0693, Partial [...] cervical(Confirmed) Osteoporosis(Confirmed) Active *[facility] [phone] DIRECTOR OF ADMISSIONS [place]pa Active Nathaniel(Confirmed) 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 Gume Mart Vital Signs Most recent to oldest [Reference Range]: 1 Height 160 cm (10/20/20 3:01 PM) Weight 77.5 kg (10/20/20 3:01 PM) Body Mass Index [18.5-24.99] 30.27 *>HHI* (10/20/20 3:01 PM) Social History Social History Type Response Tobacco Other: last cigarette 0. Sex
--- OUTSIDE RECORDS SUMMARY | 2022-06-09 08:49 | XMS_ITS | Continuity of Care Document ---
:1950 Author Organization [facility] Address [address] [place] [address]- Care Team Providers Name Role Phone Ranjeet Rushing MD Primary Care Physician [facility]21 - 02/17/21 [facility] [address] [place] [address]- Allergies, Adverse Reactions, Alerts Substance Reaction Severity [...] Given 1Result Comment: [05/28/2017] [facility]: [id number] History: [id number] Note: VIS GIVEN-DATED Admin Note: vis [id number] Note: VIS [id number] Note: VIS-[id number] History: [facility] [id number] History: [facility] [id number] Comment: [10/17/2015] PER NICO AT [id number] Note: VIS [id number] Note: VIS GIVEN Medications 12 inch Grab Bars 12 inch Grab Bars, See Instructions, # 2 each, Refills 0, Tot. Refills 0, Maintenance, Grab bars : Length 12inches Use as directed DX Unsteady Gait ICD10 R26.81 HT: 5'3 Weight 162lbs Length of need Lifetime, 07/07/20 11:45:00 EST, Supply Start Date: 07/07/20 Status: [facility] ADMIT TO [facility], See Instructions, # 1 each, Refills 0, Tot. Refills 0, Maintenance, FAX [phone] ADMIT TO INTERMEDIATE, PT, OT. 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 Start Date: 10/17/20 Status: Orderedalbuterol 90 mcg/inh inhalation powder 2 puffs, Inhalation, Every 6 hours, PRN as needed, # 1 each, 11 Refills, Maintenance, 05/05/20 14:02:00 EDT, Powder, [facility]/pharmacy #[id number], 2 puffs Inhalation Every 6 hours,PRN:as needed, 160.02, cm, 05/05/20 13:43:00 EDT, Height, 73.6, kg, 04/18/20 10:1... Start Date: 05/05/20 Status: Orderedalendronate 70 mg oral tablet 1 tablet, By Mouth, Every week, # 12 tablet, 6 Refills, Maintenance, 01/09/21 16:07:00 EDT, [facility] STORE [facility], 160, cm, 12/25/20 14:20:00 EDT, Height, 77.5, kg, 10/05/20 14:31:00 EST, Dry Weight Start Date: 01/09/21 Status: Orderedallopurinol 300 mg oral tablet 300 mg, 1, tablet, By Mouth, Daily, # 90 tablet, Refills 1, Tot. Refills 1, Maintenance, 01/26/21 12:31:00 EDT, Route to Pharmacy Electronically, [facility]/pharmacy #[id number], 160, cm, 12/25/20 14:20:00 [...] 03/23/21 16:45:00 EDT, 02/16/21 16:39:00 EDT, Cream, [facility]/pharmacy #[id number], Partial fill upon patientrequest if [...] 1 Refills, Maintenance, 02/08/21 9:52:00 EDT, Tablet, [facility]/pharmacy #[id number], 160, cm, 01/25/21 14:11:00 [...] 02/06/21 9:05:00 EDT, Route to Pharmacy Electronically, [facility]/pharmacy #[id number], 160, cm, 01/25/21 14:11:00 EDT, Height, 77.5, kg, 10/05/20 14:31:00 EST, Dry Weight Start Date: 02/06/21 Stop Date: 08/05/21 Status: OrderedHumira 40 mg subcutaneous solution See Instructions, 40 mg [id number], 0 Refills, Maintenance, 10/23/20 13:46:00 EST, Partial fill upon patient request if the prescription is for a schedule II opioid drug. Start Date: 10/23/20 Status: OrderedKeflex monohydrate 500 mg oral capsule 1 capsule = 500 mg, By Mouth, 4 times a day, for 10 days, # 40 each, 0 Refills, Acute 02/26/21 16:38:00 EDT, 02/16/21 16:38:00 EDT, Capsule, [facility]/pharmacy #[id number], Partial fill upon patient request if theprescription is for a schedule II opioid drug., 1... Start Date: 02/16/21 Stop Date: 02/26/21 Status: OrderedLyrica 150 mg oral capsule 1 capsule = 150 mg, By Mouth, 2 times a day, DOSAGE INCREASE, # 60 capsule, 3 Refills, Maintenance, 01/23/21 14:56:00 EDT, Capsule, [facility]/pharmacy #[id number], 160, cm, 01/14/21 11:46:00 EDT, Height, 77.5, kg,10/05/20 14:31:00 EST, Dry Weight Start Date: 01/23/21 Status: Orderedmagnesium oxide 400 mg (240 mg elemental magnesium) oral tablet 1 tablet, By Mouth, Daily, # 90 tablet, 0 Refills, Acute, 09/20/20 12:20:00 EST, [facility], 90, TAKE 1 TABLET BY MOUTH DAILY, 160, cm, 09/12/20 14:03:00 EST, Height, 71.3, kg, 08/08/20 7:00:00 EST, Dry Weight Start Date: 09/20/20 Status: OrderedMelatonin 3 mg oral tablet 1 tablet = 3 mg, By Mouth, Daily at bedtime, PRN for insomnia, [facility], # 90 tablet, 3 Refills, Maintenance, 04/24/20 9:53:00 EDT, Tablet, [facility]/pharmacy #[id number], 1 tablet By Mouth [...] if th... Start Date: 08/30/20 Status: OrderedPen [place], 31 G x 5 mm BD [...] 01/09/21 15:06:00 EDT, Route to Pharmacy Electronically, [facility]/pharmacy #[id number], 160, cm, 12/25/20 14:20:00 EDT, Height, 77.5, kg, 10/05/20 14:31:00 EST, Dr... Start Date: 01/09/21 Status: Orderedspironolactone 100 mg oral tablet 100 mg, 1, tablet, By Mouth, Daily, # 90 tablet, Refills 0, Tot. Refills 0, Maintenance, 01/23/21 14:56:00 EDT, Route to Pharmacy Electronically, [facility]/pharmacy #[id number], Partial fill upon patient request if the prescription is for a schedule II opioid thomas... Start Date: 01/23/21 Stop Date: 04/23/21 Status: OrderedtraMADol 50 mg oral tablet See Instructions, PRN Pain , Severe, 1-2 tablets by mouth every 6 hours, # 240 tablet, 1 Refills, Soft Stop, 01/25/21 16:45:00 EDT, [facility]/pharmacy #[id number], 160, cm, 01/25/21 14:11:00 [...] # 9 Unknown, 5 Refills, 06/20/20 15:08:00EDT, [facility]/pharmacy #[id number], 160.02, cm, 06/01/20 11:03:00 EDT, Height, 73.6, kg, 04/18/20 10:19:00 EDT,Dry Weight Start Date: 06/20/20 Status: OrderedVitamin D3 1000 intl units oral capsule 1 capsule = 1,000 International_Units, By Mouth, Daily, # 90 capsule, 1 Refills, Maintenance, 09/25/20 7:44:00 EST, Capsule, [facility]/pharmacy #[id number], resent from 08/14, 160, cm, 09/12/20 14:03:00 EST, Height, 71.3, kg, 08/08/20 7:00:00 EST, Dry Weight Start Date: 09/25/20 Status: OrderedWellbutrin XL 300 mg/24 hours oral tablet, extended release 1 tablet = 300 mg, By Mouth, Daily, DOSAGE INCREASE, # 30 tablet, 5 Refills, Maintenance, 07/03/20 15:20:00 EST, ER Tablet, [facility]/pharmacy #[id number], 160.02, cm, 07/03/20 14:54:00 EST, Height, 73.6, kg, 04/18/20 10:19:00 EDT, Dry Weight Start Date: 07/03/20 Status: OrderedZoloft 50 mg oral tablet 1 tablet = 50 mg, By Mouth, Daily, DOSAGE INCREASE, # 30 tablet, 6 Refills, Maintenance, 01/05/21 10:10:00 EDT, Tablet, [id number], Partial fill upon patient request if the [...] Active cervical(Confirmed) Osteoporosis(Confirmed) Active *[facility]LY [facility] [phone] 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 50-70% bilaterally.3Patient's psychologist private practice is [facility] and patient sees Dr. Gume Mart Social History Social History Type Response Tobacco Other: last cigarette 0. Sex
--- OUTSIDE RECORDS SUMMARY | 2022-06-09 08:49 | XMS_ITS | Continuity of Care Document ---
:1950 Author Organization [facility] Address [address] [place] [address] Drive [address] [place] [address]- Care Team Providers Name Role Phone Ranjeet Rushing MD Primary Care Physician [facility] Date[facility]): 07/[facility]/21 - 08/08/[address] [place], [place] [address] Allergies, Adverse Reactions, Alerts Substance Reaction Severity [...] (PPV23) (oldterm)11 07/19/08 Given 1Result Comment: [05/28/2017] [facility]: [id number] History: [id number] Note: VIS GIVEN-DATED Admin Note: vis [id number] Note: VIS [id number] Note: VIS-[id number] History: [facility] [id number] History: [facility] Isaac Comment: [10/17/2015] PER NICO AT [id number] Note: VIS [id number] Note: VIS GIVEN Medications 12 inch Grab [...] [facility], 160, cm, 12/25/20 14:20:00 EDT, Height, 77.5, kg, 10/05/20 14:31:00 EST, Dry Weight Start Date: 01/09/21 Status: Orderedallopurinol 300 mg oral tablet 1, tablet, By Mouth, Daily, # 90 tablet, Refills 1, Route to Pharmacy Electronically, [facility], 160, cm, 06/19/21 13:57:00 EDT, Height, 77.27, [...] tablet, 5 Refills, Maintenance, 03/12/21 10:51:00 EDT, [facility], 160, cm, 02/27/21 13:50:00 EDT, Height, 79.6, [...] Electronically, [facility]/pharmacy #[id number], 160, cm, 01/25/21 14:11:00 EDT, Height, 77.5, kg, 10/05/20 14:31:00 EST, Dry Weight Start Date: 02/06/21 Stop Date: 08/05/21 Status: OrderedLyrica 150 mg oral capsule 1 capsule = 150 mg, By Mouth, 2 times a day, DOSAGE INCREASE, # 60 capsule, 3 Refills, Maintenance, 07/09/21 14:12:00 EST, Capsule, [facility]/pharmacy #[id number], 160, cm, 06/19/21 13:57:00 EDT, Height, 77.27, kg, 03/24/21 20:58:00 EDT, Dry Weight Start Date: 07/09/21 Status: Orderedmagnesium oxide 400 mg (240 mg elemental magnesium) oral tablet 1 tablet, By Mouth, Daily, # 90 tablet, 0 Refills, Acute, 09/20/20 12:20:00 EST, [facility], 90, TAKE 1 TABLET BY MOUTH DAILY, 160, cm, 09/12/20 14:03:00 EST, Height, 71.3, kg, 08/08/20 7:00:00 EST, Dry Weight Start Date: 09/20/20 Status: Orderedmagnesium oxide 400 mg oral tablet 1 tablet = 400 mg, By Mouth, Daily, # 100 tablet, 2 Refills, Maintenance, 06/05/21 11:32:00 EDT, Tablet, [facility] EDT, Injec... Start Date: 06/11/21 Status: OrderedPen [place], 31 G x 5 mm BD Ultra [...] EST, [facility] Refills, Maintenance, 05/31/21 9:52:00 EDT, [facility]/pharmacy #[id number], 160, cm, 05/21/21 11:03:00 EDT, Height, [...] Refills, Maintenance, 04/19/21 11:35:00 EDT, Powder, [facility] Refills, Soft Stop, 07/26/21 11:05:00 EST, [facility]/pharmacy #0693, 160, cm, 07/26/21 10:45:00 EST, Height,77.27, [...] # 9 Unknown, 2 Refills, [facility], 160, cm, 06/19/21 13:57:00 EDT, Height, 77.27, [...] Active OA (osteoarthritis), Active cervical(Confirmed) Osteoporosis(Confirmed) Active *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 50-70% bilaterally.3Patient's supervisor production department is [facility] and patient sees Dr. Gume Mart Social History Social History Type Response Tobacco Other: last cigarette 0. Sex
--- OUTSIDE RECORDS SUMMARY | 2022-06-09 08:49 | XMS_ITS | Continuity of Care Document ---
:1950 Author Organization [facility] Address [address] [place] [address]- Care Team Providers Name Role Phone Ranjeet Rushing MD Primary Care Physician [facility]): 02[facility]08[facility]21 - 03/10/21 [facility] [address] [place] [address]- Allergies, Adverse Reactions, Alerts Substance Reaction Severity [...] (oldterm)11 07/19/08 Given 1Result Comment: [05/28/2017] [facility]: [id number] History: [id number] Note: VIS GIVEN-DATED Admin Note: vis [id number] Note: VIS [id number] Note: VIS-[id number] History: [facility] [id number] History: [facility] [id number] Comment: [10/17/2015] PER NICO AT [id number] Note: VIS [id number] Note: VIS GIVEN Medications 12 inch Grab Bars 12 inch Grab Bars, See Instructions, # 2 each, Refills 0, Tot. Refills 0, Maintenance, Grab bars : Length 12inches Use as directed DX Unsteady Gait ICD10 R26.81 HT: 5'3 Weight 162lbs Length of need Lifetime, 07/07/20 11:45:00 EST, Supply Start Date: 07/07/20 Status: OrderedADMIT TO [facility] ADMIT TO [facility], See Instructions, # 1 each, Refills 0, Tot. Refills 0, Maintenance, FAX [phone] ADMIT TO INTERMEDIATE, PT, OT. 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 Refills 1, Maintenance, 01/26/21 12:31:00 EDT, Route to Pharmacy Electronically, [facility]/pharmacy #[id number], 160, cm, 12/25/20 14:20:00 EDT, [...] 03/23/21 16:45:00 EDT, 02/16/21 16:39:00 EDT, Cream, [facility]/pharmacy #[id number], Partial fill upon patientrequest if [...] 02/06/21 9:05:00 EDT, Route to Pharmacy Electronically, [facility]/pharmacy #[id number], 160, cm, 01/25/21 14:11:00 EDT, Height, 77.5, kg, 10/05/20 14:31:00 EST, Dry Weight Start Date: 02/06/21 Stop Date: 08/05/21 Status: OrderedHumira 40 mg subcutaneous solution See Instructions, 40 mg [id number], 0 Refills, Maintenance, 10/23/20 13:46:00 EST, Partial fill upon patient request if the prescription is for a schedule II opioid drug. Start Date: 10/23/20 Status: OrderedLyrica 150 mg oral capsule 1 capsule = 150 mg, By Mouth, 2 times a day, DOSAGE INCREASE, # 60 capsule, 3 Refills, Maintenance, 01/23/21 14:56:00 EDT, Capsule, [facility]/pharmacy #[id number], 160, cm, 01/14/21 11:46:00 EDT, Height, 77.5, kg,10/05/20 14:31:00 EST, Dry Weight Start Date: 01/23/21 Status: Orderedmagnesium oxide 400 mg (240 mg elemental magnesium) oral tablet 1 tablet, By Mouth, Daily, # 90 tablet, 0 Refills, Acute, 09/20/20 12:20:00 EST, [facility] STORE 89393, 90, TAKE 1 TABLET BY MOUTH DAILY, [...] if th... Start Date: 08/30/20 Status: OrderedPen [place], 31 G x 5 mm BD Ultra [...] 01/09/21 15:06:00 EDT, Route to Pharmacy Electronically, [facility]/pharmacy #[id number], 160, cm, 12/25/20 14:20:00 EDT, Height, 77.5, kg, 10/05/20 14:31:00 EST, Start Date: 01/09/21 Status: Orderedspironolactone 100 mg oral tablet 100 mg, 1, tablet, By Mouth, Daily, # 90 tablet, Refills 0, Tot. Refills 0, Maintenance, 01/23/21 14:56:00 EDT, Route to Pharmacy Electronically, [facility]/pharmacy #[id number], Partial fill upon patient request if the prescription is for a schedule II opioid carlene Start Date: 01/23/21 Stop Date: 04/23/21 Status: OrderedtraMADol 50 mg oral tablet See Instructions, PRN Pain , Severe, 1-2 tablets by mouth every 6 hours, # 240 tablet, 1 Refills, Soft Stop, 01/25/21 16:45:00 EDT, [facility]/pharmacy #[id number], 160, cm, 01/25/21 14:11:00 EDT, [...] cervical(Confirmed) Osteoporosis(Confirmed) Active *[facility] [phone] 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 50-70% bilaterally.3Patient's check processing clerk is [facility] and patient sees Dr. Gume Mart Social History Social History Type Response Tobacco Other: last cigarette 0. Sex
--- OUTSIDE RECORDS SUMMARY | 2022-06-09 08:49 | XMS_ITS | Continuity of Care Document ---
:1950 Author Organization [facility] Address [address] [place] [address]- Care Team Providers Name Role Phone Ranjeet Del Rosario MD Primary Care Physician [facility] Date[facility] 09[facility]19 - 10/06/19 [facility] [address] [place] [address]- [facility] Attending Physician: Ranjeet Del Rosario MD Allergies, Adverse [...] (PPV23) (oldterm)11 07/19/08 Given 1Result Comment: [05/28/2017] [facility]: [id number] History: [id number] Note: VIS GIVEN-DATED 8/11/094 Admin Note: vis [id number] Note: VIS [id number] Note: VIS-USQBA9Dlghiqre History: [facility] [id number] History: [facility] DEANGELO Gray Comment: [10/17/2015] PER NICO AT [id number] Note: VIS [id number] Note: VIS GIVEN Medications albuterol 90 mcg/inh [...] TAKE 1 TABLET BY MOUTH EVERY DAY, [facility]/pharmacy #[id number] Start Date: 06/09/19 Status: [...] TAKE 1 CAPSULE BY MOUTH EVERY DAY, [facility]/pharmacy #[id number] Start Date: 04/20/19 Status: [...] each, 0 Refills, Maintenance, 01/01/19 14:36:12 EDT, [place], 2 sprays Nares, Both Daily in AM [...] 1 TABLET BY MOUTH TWICE A DAY, [facility]/pharmacy #[id number] Start Date: 06/02/19 Status: OrderedLyrica 75 mg oral capsule 1 capsule = 75 mg, By Mouth, 2 times a day, # 60 capsule, 5 Refills, Maintenance, 09/29/19 15:33:00 EST, Capsule, [facility]/pharmacy #[id number], 160.02, cm, 09/29/19 14:57:00 EST, Height, [...] Maintenance, Additional refills at next office visit, 09/14/19 8:16:00 EST, Compound, 160.02, cm, 09/06/19 12:51:00 EST, Height, 81.6, kg, 07/27/19 14:52:00 EST, Dry Weight Start Date: 09/14/19 Status: Orderedmelatonin 3 mg oral tablet 1 tablet = 3 mg, By Mouth, Daily at bedtime, PRN for insomnia, Additional refills at next office visit, # 30 tablet, 0 Refills, Maintenance, 09/16/19 13:26:00 EST, Tablet, [facility]/pharmacy #[id number], 160.02, cm, 09/06/19 12:51:00 EST, Height, [...] Call PCP... Start Date: 10/29/17 Status: OrderedPen [place], 31 G x 5 mm BD Ultra [...] 07/20/19 16:14:12 EST, Route to Pharmacy Electronically, [id number], [facility]/pharmacy #[id number] Start Date: 07/20/19 Status: Orderedspironolactone 100 mg oral tablet See Instructions, # 30 tablet, Refills 5 Tot. Refills 5, TAKE 1 TABLET BY MOUTH EVERY DAY, [facility]/pharmacy #[id number] Start Date: 06/23/19 Status: OrderedtraMADol 50 mg oral tablet See Instructions, TAKE 1 TO 2 TABLETS BY MOUTH EVERY 6 HOURS, # 240 tablet, 1 Refills, Soft Stop, 08/23/19 16:39:00 EST, [facility]/pharmacy #[id number], 160.02, cm, 08/16/19 12:59:00 [...] 74 UNITS DAILY, MAX DOSE 140 UNITS, [facility]/pharmacy #[id number] Start Date: 04/20/19 Status: Orderedvarenicline 1mg tablet 1 tablet = 1 mg, By Mouth, 2 times a day, # 60 tablet, 0 Refills, Maintenance, 09/14/19 8:24:00 EST,Tablet, [facility]/pharmacy #[id number], 160.02, cm, 09/06/19 12:51:00 EST, Height, [...] OA (osteoarthritis), Active cervical(Confirmed) Osteoporosis(Confirmed) Active *[facility] [phone] 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 50-70% bilaterally.3Patient's sales demonstrator is [facility] and patient sees Dr. Gume Mart Vital Signs Most recent to oldest [Reference Range]: 1 Height 160.02 cm (09/29/19 2:57 PM) Weight 81.8 kg (09/29/19 2:57 PM) Oxygen Saturation [94-100 %] 97 % (09/29/19 2:57 PM) Pulse Rate [55-90 bpm] 84 bpm (09/29/19 2:57 PM) Body Mass Index [18.5-24.99] 31.95 *>HHI* (09/29/19 2:57 PM) Blood Pressure [90-138/55-84 mm Hg] 92/50 mm Hg (09/29/19 2:57 PM) Mode of Delivery (Oxygen) Room air (09/29/19 2:57 PM) Blood pressure sites Arm, left (09/29/19 2:57 PM) Weight Obtained Via 50 (09/29/19 2:57 PM) Social History Social History Type Response Smoking Status Current some day smoker; Typ e: Cigarettes; Other: less than 1/2 pack a day; Tobacco use times per day: 1/2 pack a day; entered on: 02/19/17 Sex
--- OUTSIDE RECORDS SUMMARY | 2022-06-09 08:49 | XMS_ITS | Continuity of Care Document ---
:1950 Author Organization [facility] Address [address] [place] [address]- Care Team Providers Name Role Phone Ranjeet Rushing MD Primary Care Physician [place] [facility] [place]/22 [facility] [address] [place] [address]- Encounter Diagnosis Wound of skin (Discharge Diagnosis) - 02/04/22 Attending Physician: Reddy Velez DO Referring Physician: Ranjeet Rushing MD Allergies, Adverse [...] (oldterm)11 07/19/08 Given 1Result Comment: [05/28/2017] [facility]: [id number] History: [id number] Note: VIS GIVEN-DATED Admin Note: vis [id number] Note: VIS [id number] Note: VIS-[id number] History: [facility] [id number] History: [facility] [id number] Comment: [10/17/2015] PER NICO AT [id number] Note: VIS [id number] Note: VIS GIVEN Medications 12 inch Grab [...] 11 Refills, Maintenance, 05/05/20 14:02:00 EDT, Powder, [facility]/pharmacy #[id number], 2 puffs Inhalation Every 6 hours,PRN:as needed, 160.02, cm, 05/05/20 13:43:00 EDT, Height, 73.6, kg, 04/18/20 10:1... Start Date: 05/05/20 Status: Orderedalendronate 70 mg oral tablet 1 tablet, By Mouth, Every week, # 12 tablet, 1 Refills, [facility], 160, cm, 01/17/22 14:38:00 EDT, Height, 74.8, kg, 11/01/21 15:05:00 EST, Dry Weight Start Date: 01/30/22 Status: Orderedallopurinol 300 mg oral tablet 1, tablet, By Mouth, Daily, # 90 tablet, Refills 0, Route to Pharmacy Electronically, [facility], 160, cm, 11/27/21 14:08:00 EDT, Height, 74.8, kg, 11/01/21 15:05:00 EST, Dry Weight Start Date: 12/30/21 Status: OrderedBACK BRACE BACK BRACE, See Instructions, # 1 each, Refills 0, Tot. Refills 0, Maintenance, DX BACK PAIN M54.9 DANTE LIFETIME HT 5'3 WT 182 LB, 07/23/16 14:35:27, Compound Start Date: 07/23/16 Status: OrderedBD UF SHORT PEN NEEDLE [id number] BD UF SHORT PEN NEEDLE [id number], See Instructions, # 200 Unknown, 5 Refills, USE TO INJECT INSULIN TWICE A DAY, 160, cm, 11/27/21 14:08:00 EDT, Height, 74.8, kg, 11/01/21 15:05:00 EST, Dry Weight Start Date: 11/30/21 Status: OrderedbuPROPion 300 mg/24 hours (XL) oral tablet, extended release 1 tablet, By Mouth, Daily, # 30 tablet, 5 Refills, Maintenance, 08/30/21 7:54:00 EST, [facility]/pharmacy #0693, 160, cm, 07/26/21 [...] 90 tablet, 1 Refills, 01/17/22 15:05:00 EDT, [facility]/pharmacy #0693, 160, cm, 01/17/22 [...] tablet, Refills 1, Route to Pharmacy Electronically, [facility] ST[facility], 160, cm, 10/15/21 15:03:00 EST, Height, 75, kg, 09/14/21 11:51:00 EST, Dry Weight Start Date: 10/16/21 Status: OrderedLidoderm 5% film 1 patch, Topically, Daily, # 30 patch, 11 Refills, Maintenance, 12/28/21 15:03:00 EDT, [facility]/pharmacy #0693, Partial fill upon patient request if the prescription is for a schedule II opioid drug., 1 patch Topically Daily,x30 days, 160, cm, 11/27/21 14:... Start Date: 12/28/21 Stop Date: 12/23/22 Status: OrderedLyrica 150 mg oral capsule 1 capsule = 150 mg, By Mouth, 2 times a day, DOSAGE INCREASE, # 60 capsule, 3 Refills, Maintenance, 11/12/21 16:27:00 EDT, Capsule, [facility]/pharmacy #0693, 160, cm, 11/01/21 15:12:00 EST, Height, 74.8, kg,11/01/21 15:05:00 EST, Dry Weight Start Date: 11/12/21 Status: Orderedmagnesium oxide 400 mg (240 mg elemental magnesium) oral tablet 1 tablet, By Mouth, Daily, # 90 tablet, 0 Refills, Acute, 09/20/20 12:20:00 EST, [facility] STORE 52370, 90, TAKE 1 TABLET BY MOUTH DAILY, 160, cm, 09/12/20 14:03:00 EST, Height, 71.3, kg, 08/08/20 7:00:00 EST, Dry Weight Start Date: 09/20/20 Status: Orderedmagnesium oxide 400 mg oral tablet 1 tablet = 400 mg, By Mouth, Daily, # 100 tablet, 2 Refills, Maintenance, 06/05/21 11:32:00 EDT, Tablet, [facility]/pharmacy #0693, Partial fill upon patient request if the prescription is for a schedule II opioid drug., 160, cm, 05/21/21 11:03:00 EDT, Heigh... Start Date: 06/05/21 Status: OrderedMelatonin 3 mg oral tablet 1 tablet = 3 mg, By Mouth, Daily at bedtime, PRN for insomnia, [facility] brand, # 90 tablet, 3 Refills, Maintenance, 10/17/21 12:02:00 EST, Tablet, [facility]/pharmacy #0693, 1 tablet By [...] 02/18/22 14:10:00 EDT, 02/04/22 14:10:00 EDT, Ointment, [facility]/pharmacy #0693, Partial fill upon [...] EDT, Injec... Start Date: 06/11/21 Status: OrderedPen [place], 31 G x 5 mm BD [...] 09/15/21 17:53:00 EST, Route to Pharmacy Electronically, [facility]/pharmacy #[id number], 160, cm, 09/14/21 [...] tablet, Refills 1, Route to Pharmacy Electronically, [facility] STORE 05177, 160, cm, 11/27/21 14:08:00 EDT, Height, 74.8, kg, 11/01/21 15:05:00 EST, Dry Weight Start Date: 01/11/22 Status: OrderedtraMADol 50 mg oral tablet See Instructions, TAKE 1-2 TABLETS BY MOUTH EVERY 6 HOURS SCHEDULE FOLLOW VISIT, NEEDED FOR PAIN,# 240 tablet, 5 Refills, Maintenance, 01/17/22 11:33:00 EDT, [facility]/pharmacy #[id number], 160, cm, 11/27/21 [...] # 9 Unknown, 5 Refills, [facility], 160, cm, 09/07/21 15:03:00 EST, Height, 77.27, [...] Active OA (osteoarthritis), Active cervical(Confirmed) Osteoporosis(Confirmed) Active *[facility] [phone] 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 50-70% bilaterally.3Patient's animal scientist is [facility] and patient sees Dr. Gume Mart Diagnosis Diagnosis Type Effective Dates Health Status Clinical In formant Service Wound of skin Discharge 02/04/22 Diagnosis Vital Signs Most recent to oldest [Reference Range]: 1 Height 160 cm (02/04/22 1:44 PM) Oxygen Saturation [94-100 %] 95 % (02/04/22 1:44 PM) Blood Pressure [90-138/55-84 mm Hg] 134/70 mm Hg (02/04/22 1:44 PM) Temperature [96.8-100.4 DegF] 97.8 DegF (02/04/22 1:44 PM) Mode of Delivery (Oxygen) Room air (02/04/22 1:44 PM) Blood pressure sites Arm, right (02/04/22 1:44 PM) Temperature Route Temporal (02/04/22 1:44 PM) Social History Social History Type Response Smoking Status Former smoker, quit more mark n 30 days ago entered on: 09/28/21 Sex
--- OUTSIDE RECORDS SUMMARY | 2022-06-09 08:49 | XMS_ITS | Continuity of Care Document ---
:1950 Author Organization [facility] Address [address] [place] [address]- Care Team Providers Name Role Phone Aarti SUTTON, Jose Person Primary Care Physician [place] [facility] [place] 07/04/20 - 08/31/20 [facility] [address] [place] [id number] Attending Physician: Sin SUTTON, Mustapha Admitting Physician: Sin SUTTON, Mustapha Referring Physician: Ranjeet Rushing MD Allergies, Adverse [...] Given 1Result Comment: [05/28/2017] [facility]: [id number] History: [id number] Note: VIS GIVEN-DATED Admin Note: vis [id number] Note: VIS [id number] Note: VIS-[id number] [place] [facility] [place] [id number] History: [facility] Isaac Comment: [10/17/2015] PER NICO AT [id number] Note: VIS [id number] Note: VIS GIVEN Medications 12 inch Grab [...] 11 Refills, Maintenance, 05/05/20 14:02:00 EDT, Powder, [facility]/pharmacy #0693, 2 puffs Inhalation Every 6 hours,PRN:as needed, 160.02, cm, 05/05/20 13:43:00 EDT, Height, 73.6, kg, 04/18/20 10:1... Start Date: 05/05/20 Status: Orderedallopurinol 300 mg oral tablet 300 mg, 1, tablet, By Mouth, Daily, # 90 tablet, Refills 0, Tot. Refills 0, Maintenance, 07/06/20 15:50:00 EST, Route to Pharmacy Electronically, [facility]/pharmacy #[id number], 160.02, cm, 07/03/20 14:54:00 EST, Height, [...] 07/06/20 15:48:00 EST, Route to Pharmacy Electronically, [facility]/pharmacy #[id number], 160.02, cm, 07/03/20 14:54:00 EST,Height, 73.6, kg, 04/18/20 10:19:00 EDT, Dry Weight Start Date: 07/06/20 Stop Date: 10/04/20 Status: OrderedguaiFENesin 100 mg/5 mL oral liquid 10 mL = 200 mg, By Mouth, Every 4 hours, PRN for cough, Maintenance, 08/30/20 15:39:00 EST, Liquid, Partial fill upon patient request if the prescription is for a schedule II opioid drug. Start Date: 08/30/20 Status: Orderedlactobacillus acidophilus oral capsule 1 capsule, [...] 3 Refills, Maintenance, 07/04/20 11:46:00 EST, Capsule, [facility]/pharmacy #0693, 160.02, cm, 07/03/20 14:54:00 EST, Height, [...] 3 Refills, Maintenance, 04/24/20 9:53:00 EDT, Tablet, [facility]/pharmacy #[id number], 1 tablet By Mouth Daily at [...] patient request Start Date: 08/30/20 Status: OrderedPen [place], 31 G x 5 mm BD Ultra [...] 06/28/20 9:31:00 EST, Route to Pharmacy Electronically, [facility]/pharmacy #[id number], 160.02, cm, 06/01/20 11:03:00 EDT, Height, [...] # 9 Unknown, 5 Refills, 06/20/20 15:08:00EDT, [facility]/pharmacy #0693, 160.02, cm, 06/01/20 11:03:00 EDT, Height, [...] Refills, Maintenance, 07/03/20 15:20:00 EST, ER Tablet, [facility]/pharmacy #0693, 160.02, cm, 07/03/20 14:54:00 EST, Height, [...] cervical(Confirmed) Osteoporosis(Confirmed) Active *[facility] [phone] 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 and patient sees Dr. Gume Mart Social History Social History Type Response Tobacco Other: last cigarette 0. Sex
--- OUTSIDE RECORDS SUMMARY | 2022-06-09 08:50 | XMS_ITS | Continuity of Care Document ---
:1950 Author Organization [facility] Address [address] [place] [address]- Care Team Providers Name Role Phone Ranjeet Rushing MD Primary Care Physician Encounter [facility] Date(s): 04/13/21 - 05/13/21 [facility] [address] [place] [address]- Allergies, Adverse Reactions, Alerts Substance Reaction Severity [...] (oldterm)11 07/19/08 Given 1Result Comment: [05/28/2017] [facility]: [id number] History: [id number] Note: VIS GIVEN-DATED Admin Note: vis [id number] Note: VIS [id number] Note: VIS-[id number] History: [facility] [place] [id number] History: [facility] [id number] Comment: [10/17/2015] PER NICO AT [id number] Note: VIS [id number] Note: VIS GIVEN Medications 12 inch Grab [...] 11 Refills, Maintenance, 05/05/20 14:02:00 EDT, Powder, [facility]/pharmacy #[id number], 2 puffs Inhalation Every 6 hours,PRN:as needed, 160.02, cm, 05/05/20 13:43:00 EDT, Height, 73.6, kg, 04/18/20 10:1... Start Date: 05/05/20 Status: Orderedalendronate 70 mg oral tablet 1 tablet, By Mouth, Every week, # 12 tablet, 6 Refills, Maintenance, 01/09/21 16:07:00 EDT, [facility] ST[facility], 160, cm, 12/25/20 14:20:00 EDT, Height, 77.5, kg, 10/05/20 14:31:00 EST, Dry Weight Start Date: 01/09/21 Status: Orderedallopurinol 300 mg oral tablet 300 mg, 1, tablet, By Mouth, Daily, # 90 tablet, Refills 1, Tot. Refills 1, Maintenance, 01/26/21 12:31:00 EDT, Route to Pharmacy Electronically, [facility]/pharmacy #[id number], 160, cm, 12/25/20 14:20:00 [...] tablet, 5 Refills, Maintenance, 03/12/21 10:51:00 EDT, [facility] STORE 10313, 160, cm, 02/27/21 13:50:00 EDT, Height, 79.6, [...] 1 Refills, Maintenance, 02/08/21 9:52:00 EDT, Tablet, [facility]/pharmacy #0693, 160, cm, 01/25/21 14:11:00 [...] 02/06/21 9:05:00 EDT, Route to Pharmacy Electronically, [facility]/pharmacy #[id number], 160, cm, 01/25/21 14:11:00 EDT, Height, 77.5, kg, 10/05/20 14:31:00 EST, Dry Weight Start Date: 02/06/21 Stop Date: 08/05/21 Status: OrderedHumira 40 mg subcutaneous solution See Instructions, 40 mg [id number], 0 Refills, Maintenance, 10/23/20 13:46:00 EST, Partial fill upon patient request if the prescription is for a schedule II opioid drug. Start Date: 10/23/20 Status: OrderedLyrica 150 mg oral capsule 1 capsule = 150 mg, By Mouth, 2 times a day, DOSAGE INCREASE, # 60 capsule, 3 Refills, Maintenance, 01/23/21 14:56:00 EDT, Capsule, [facility]/pharmacy #[id number], 160, cm, 01/14/21 11:46:00 EDT, Height, 77.5, kg,10/05/20 14:31:00 EST, Dry Weight Start Date: 01/23/21 Status: Orderedmagnesium oxide 400 mg (240 mg elemental magnesium) oral tablet 1 tablet, By Mouth, Daily, # 90 tablet, 0 Refills, Acute, 09/20/20 12:20:00 EST, [facility] STORE 86172, 90, TAKE 1 TABLET BY MOUTH DAILY, 160, cm, 09/12/20 14:03:00 EST, Height, 71.3, kg, 08/08/20 7:00:00 EST, Dry Weight Start Date: 09/20/20 Status: OrderedMelatonin 3 mg oral tablet 1 tablet = 3 mg, By Mouth, Daily at bedtime, PRN for insomnia, [facility], # 90 tablet, 3 Refills, Maintenance, 04/24/20 9:53:00 EDT, Tablet, [facility]/pharmacy #[id number], 1 tablet By Mouth Daily at bedtime,PRN:for insomnia,Instr:[employer] brand, 160.02, cm, 04/18/20... Start Date: 04/24/20 [...] if th... Start Date: 08/30/20 Status: OrderedPen [place], 31 G x 5 mm BD Ultra [...] 01/09/21 15:06:00 EDT, Route to Pharmacy Electronically, [facility]/pharmacy #[id number], 160, cm, 12/25/20 14:20:00 EDT, Height, 77.5, kg, 10/05/20 14:31:00 EST, Dr... Start Date: 01/09/21 Status: Orderedspironolactone 100 mg oral tablet 100 mg, 1, tablet, By Mouth, Daily, # 90 tablet, Refills 0, Tot. 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 50-70% bilaterally.3Patient's matcher offbearer is [facility] and patient sees Dr. Gume Mart Social History Social History Type Response Tobacco Other: last cigarette 0. Sex
--- OUTSIDE RECORDS SUMMARY | 2022-06-09 08:50 | XMS_ITS | Continuity of Care Document ---
:1950 Author Organization [facility] Address [address] [place] [address]- Care Team Providers Name Role Phone Kristan SUTTON, Ranjeet Beatty Primary Care Physician Encounter [facility] Date(s): 04/08/22 - 04/15/22 [facility] [address] [place] [address]- Attending Physician: Matilda LOZADA, Chari Santos Referring [...] Comment: [05/28/2017] [facility]: [id number] History: [id number] Note: VIS GIVEN-DATED Admin Note: vis [id number] Note: VIS [id number] Note: VIS-[id number] [place] [facility] [id number] History: [facility] [id number] Comment: [10/17/2015] PER NICO AT [id number] Note: VIS [id number] Note: VIS GIVEN Medications 12 inch Grab [...] # 12 tablet, 1 Refills, [facility], 160, cm, 01/17/22 14:38:00 EDT, Height, 74.8, kg, 11/01/21 15:05:00 EST, Dry Weight Start Date: 01/30/22 Status: Orderedallopurinol 300 mg oral tablet 1, tablet, By Mouth, Daily, # 90 tablet, Refills 0, Route to Pharmacy Electronically, [facility], 160, cm, 02/21/22 15:11:00 EDT, Height, 74.8, kg, 11/01/21 15:05:00 EST, Dry Weight Start Date: 03/27/22 Status: OrderedBACK BRACE BACK BRACE, See Instructions, # 1 each, Refills 0, Tot. Refills 0, Maintenance, DX BACK PAIN M54.9 DANTE LIFETIME HT 5'3 WT 182 LB, 07/23/16 14:35:27, Compound Start Date: 07/23/16 Status: OrderedBD UF SHORT PEN NEEDLE [id number] BD UF SHORT PEN NEEDLE [id number], See Instructions, # 200 Unknown, 5 Refills, USE TO INJECT INSULIN TWICE A DAY, 160, cm, 11/27/21 14:08:00 EDT, Height, 74.8, kg, 11/01/21 15:05:00 EST, Dry Weight Start Date: 11/30/21 Status: OrderedbuPROPion 300 mg/24 hours (XL) oral tablet, extended release 1 tablet, By Mouth, Daily, # 30 tablet, 5 Refills, [facility] ST[facility] 61430, 160, cm, 02/04/22 13:44:00 EDT, Height, 74.8, [...] 3 Refills, Maintenance, 04/12/22 16:02:00 EDT, Tablet, [facility]/pharmacy #0693, 160, cm, 04/10/22 14:31:00 [...] 1 Refills, Maintenance, 02/21/22 16:12:00 EDT, Tablet, [facility]/pharmacy #0693, Partial fill upon patient request if the prescription is for a schedule II opioid drug., 160, cm, 01/25... Start Date: 02/21/22 Status: OrderedFree Style ESDRAS 2 SENSORS Free Style ESDRAS 2 SENSORS, See Instructions, # 2 each, Refills 11, Tot. Refills 11, Maintenance, Free Style Esdras 2 SENSORS-90 day supply change every 14 days DM 2 , E11.9, 04/15/22 14:08:00 EDT, Supply, 160, cm, 04/10/22 14:31:00 EDT, Height, 74.8... Start Date: 04/15/22 Status: OrderedFreeStyle Esdras 2 METER FreeStyle Esdras 2 METER, See Instructions, # 1 each, Refills 0, Tot. Refills 0, Maintenance, dm 2 E11.9 FREESTYLE ESDRAS 2 METER, 04/15/22 14:08:00 EDT, Supply, 160, cm, 04/10/22 14:31:00 EDT, Height, 74.8, kg, 11/01/21 15:05:00 EST, Dry Weight Start Date: 04/15/22 Status: OrderedFreestyle Lite Lancets See Instructions, # [...] tablet, Refills 1, Route to Pharmacy Electronically, [facility] 08[facility], 160, cm, 02/21/22 15:11:00 EDT, Height, 74.8, kg, 11/01/21 15:05:00 EST, Dry Weight Start Date: 03/12/22 Status: OrderedLidoderm 5% film 1 patch, Topically, Daily, # 30 patch, 11 Refills, Maintenance, 12/28/21 15:03:00 EDT, [facility]/pharmacy #0693, Partial fill upon patient request if the prescription is for a schedule II opioid drug., 1 patch Topically Daily,x30 days, 160, cm, 11/27/21 14:... Start Date: 12/28/21 Stop Date: 12/23/22 Status: OrderedLyrica 150 mg oral capsule 1 capsule = 150 mg, By Mouth, 2 times a day, DOSAGE INCREASE, # 60 capsule, 3 Refills, Maintenance, 03/26/22 10:58:00 EDT, Capsule, [facility]/pharmacy #0693, 160, cm, 02/21/22 15:11:00 EDT, Height, 74.8, kg,11/01/21 15:05:00 EST, Dry Weight Start Date: 03/26/22 Status: Orderedmagnesium oxide 400 mg oral tablet 1 tablet, By Mouth, Daily, # 100 tablet, 2 Refills, [facility], 160, cm, 02/21/22 15:11:00 EDT,Height, 74.8, kg, 11/01/21 15:05:00 EST, Dry Weight Start Date: 03/28/22 Status: OrderedMelatonin 3 mg oral tablet 1 tablet = 3 mg, By Mouth, Daily at bedtime, PRN for insomnia, [facility], # 90 tablet, 3 Refills, Maintenance, 10/17/21 12:02:00 EST, Tablet, [facility]/pharmacy #0693, [...] Acute 04/29/22 0:00:00 EDT, 04/08/22 10:39:00 EDT,Patch, [facility]/pharmacy #[id number], Partial fill upon [...] EDT, Injec... Start Date: 06/11/21 Status: OrderedPen [place], 31 G x 5 mm BD Ultra [...] 09/15/21 17:53:00 EST, Route to Pharmacy Electronically, [facility]/pharmacy #[id number], 160, cm, 09/14/21 [...] tablet, Refills 1, Route to Pharmacy Electronically, [facility] STORE 88710, 160, cm, 11/27/21 14:08:00 EDT, Height, 74.8, kg, 11/01/21 15:05:00 EST, Dry Weight Start Date: 01/11/22 Status: OrderedtraMADol 50 mg oral tablet See Instructions, TAKE 1-2 TABLETS BY MOUTH EVERY 6 HOURS SCHEDULE FOLLOW VISIT, NEEDED FOR PAIN,# 240 tablet, 5 Refills, Maintenance, 01/17/22 11:33:00 EDT, 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 50-70% bilaterally.3Patient's economic analysis director is [facility] and patient sees Dr. Gume Mart Vital Signs Most recent to oldest [Reference Range]: 1 Height 160 cm (04/08/22 10:12 AM) Weight 75.1 kg (04/08/22 10:12 AM) Oxygen Saturation [94-100 %] 96 % (04/08/22 10:12 AM) Pulse Rate [55-90 bpm] 86 bpm (04/08/22 10:12 AM) Body Mass Index [18.5-24.99] 29.34 *H* (04/08/22 10:12 AM) Blood Pressure [90-138/55-84 mm Hg] 116/60 mm Hg (04/08/22 10:12 AM) Respiratory Rate [16-30 br/min] 20 br/min (04/08/22 10:12 AM) Mode of Delivery (Oxygen) Room air (04/08/22 10:12 AM) Blood pressure sites Arm, right (04/08/22 10:12 AM) Weight Obtained Via Standing scale (04/08/22 10:12 AM) Social History Social History Type Response Smoking Status Former smoker, quit more mark n 30 days ago entered on: 09/28/21 Sex
--- OUTSIDE RECORDS SUMMARY | 2022-06-09 08:50 | XMS_ITS | Continuity of Care Document ---
:1950 Author Organization [facility] Address [address] [place] [address]- Care Team Providers Name Role Phone Kristan SUTTON, Ranjeet Beatty Primary Care Physician [place] [facility] [place] 02/11/20 [facility] [address] [place] [id number] [facility] Attending Physician: Mustapha Vogt MD Admitting Physician: Mustapha Vogt MD Referring Physician: Francis Swanson MD Allergies, Adverse Reactions, Alerts Substance Reaction [...] (PPV23) (oldterm)11 07/19/08 Given 1Result Comment: [05/28/2017] [facility]: [id number] History: [id number] Note: VIS GIVEN-DATED Admin Note: vis [id number] Note: VIS [id number] Note: VIS-[id number] [place] [facility] [id number] History: [facility] [id number] Comment: [10/17/2015] PER NICO AT [id number] Note: VIS [id number] Note: VIS GIVEN Medications albuterol 90 mcg/inh inhalation powder 2 puffs, Inhalation, Every 6 hours, PRN as needed, # 1 each, 11 Refills, Maintenance, 12/29/18 9:38:36 EDT, Powder, 2 puffs Inhalation Every 6 hours,PRN:as needed Start Date: 12/29/18 Status: Orderedalendronate 70 mg oral tablet 1 tablet = 70 mg, By Mouth, Every week, # 12 tablet, 0 Refills, Maintenance, 12/29/19 9:01:00 EDT, Tablet, [facility]/pharmacy #[id number], 160.02, cm, 11/02/19 15:34:00 EDT, Height, 81.6, kg, 07/27/19 14:52:00 EST, Dry Weight Start Date: 12/29/19 Status: Orderedallopurinol 300 mg oral tablet 1, tablet, By Mouth, Daily, # 90 tablet, Refills 1, Tot. Refills 0, Maintenance, 11/08/19 12:00:00 EDT, Route to Pharmacy Electronically, [facility] STORE 80769, 160.02, cm, 11/02/19 15:34:00 EDT, Height, 81.6, [...] 0 Refills, Maintenance, 02/11/20 13:33:00 EDT, Tablet, [facility]/pharmacy #0693, 160.02, cm, 02/11/20 [...] 11/08/19 11:59:00 EDT, Route to Pharmacy Electronically, [facility] STORE [id number], 160.02, cm, 11/02/19 15:34:00 EDT, Height, 81.6, kg, 07/27/19 14:52:00 EST, Dry Weight Start Date: 11/08/19 Status: Orderedgabapentin 300 mg oral capsule 300 mg, 1, capsule, By Mouth, 3 times a day, # 90 capsule, Refills 5, Tot. Refills 5, Maintenance, 11/02/19 16:04:00 EDT, Route to Pharmacy Electronically, [facility]/pharmacy #[id number], 160.02, cm, 11/02/19 15:34:00 [...] 3 Refills, Maintenance, 01/07/20 16:00:00 EDT, Tablet, [facility] [...] Call PCP... Start Date: 10/29/17 Status: OrderedPen [place], 31 G x 5 mm BD Ultra [...] 07/20/19 16:14:12 EST, Route to Pharmacy Electronically, [id number], [facility]/pharmacy #[id number] Start Date: 07/20/19 Status: Orderedspironolactone 100 mg oral tablet 1, tablet, By Mouth, Daily, # 30 tablet, Refills 5, Tot. Refills 0, Maintenance, 12/07/19 13:00:00 EDT, Route to Pharmacy Electronically, [facility] STORE 96124, 160.02, cm, 11/02/19 15:34:00 EDT, Height, 81.6, kg, 07/27/19 14:52:00 EST, Dry Weight Start Date: 12/07/19 Status: OrderedtraMADol 50 mg oral tablet See Instructions, PRN Pain , Severe, 1-2 tablets by mouth every 6 hours, # 240 tablet, 1 Refills, Soft Stop, 01/07/20 15:58:00 EDT, [facility]/pharmacy #[id number], 160.02, cm, 01/07/20 15:07:00 [...] 5 Refills, Soft Stop, 12/16/19 15:45:00 EDT, [facility]/pharmacy #[id number], 160.02, cm, 11/02/19 15:34:00 EDT, Height, 81.6, kg, 07/27/19 14:52:00 EST, Dry Weight Start Date: 12/16/19 Status: OrderedVictoza 18 mg/3 mL subcutaneous solution See Instructions, INJECT 1.8 MG SUBCUTANEOUS DAILY, # 9 Unknown, 0 Refills, Maintenance, 02/03/20 10:14:00 EDT, [facility]/pharmacy #[id number], 160.02, cm, 01/07/20 15:07:00 EDT, Height, 81.6, kg, 07/27/19 14:52:00 EST, Dry Weight Start Date: 02/03/20 Status: OrderedVitamin B12 500 mcg oral tablet 1 tablet = 500 mcg, By Mouth, Daily, # 30 tablet, 1 Refills, Maintenance, 02/07/20 8:53:00 EDT, Tablet, [facility]/pharmacy #[id number], 160.02, cm, 01/07/20 15:07:00 [...] Refills, Maintenance, 12/09/19 16:12:00 EDT, ER Tablet, 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 50-70% bilaterally.3Patient's mortgage processing manager is [facility] and patient sees Dr. Gume Mart Social History Social History Type Response Smoking Status Current some day smoker; Typ e: Cigarettes; Other: less than 1/2 pack a day; Tobacco use times per day: 1/2 pack a day; entered on: 02/19/17 Sex
--- OUTSIDE RECORDS SUMMARY | 2022-06-09 08:50 | XMS_ITS | Continuity of Care Document ---
:1950 Author Organization [facility] Address [address] [place] [address]- Care Team Providers Name Role Phone Ranjeet Rushing MD Primary Care Physician [facility]counter [facility] Date(s): 04/18/20 - 05/18/20 [facility] [address] [place] [id number]- [facility] Allergies, Adverse Reactions, Alerts Substance [...] (PPV23) (oldterm)11 07/19/08 Given 1Result Comment: [05/28/2017] [facility]: [id number] History: [id number] Note: VIS GIVEN-DATED Admin Note: vis [id number] Note: VIS [id number] Note: [id number] History: [facility] [id number] History: [facility] Isaac Comment: [10/17/2015] PER NICO AT [id number] Note: VIS [id number] Note: VIS GIVEN Medications albuterol 90 mcg/inh inhalation powder 2 puffs, Inhalation, Every 6 hours, PRN as needed, # 1 each, 11 Refills, Maintenance, 05/05/20 14:02:00 EDT, Powder, [facility]/pharmacy #[id number], 2 puffs Inhalation Every 6 hours,PRN:as needed, 160.02, cm, 05/05/20 13:43:00 EDT, Height, 73.6, kg, 04/18/20 10:1... Start Date: 05/05/20 Status: Orderedalendronate 70 mg oral tablet 1 tablet, By Mouth, Every week, # 12 tablet, 0 Refills, Maintenance, 03/17/20 11:27:00 EDT, [facility] STORE 12051, 160.02, cm, 03/14/20 13:30:00 EDT, Height, 81.6, kg, 07/27/19 14:52:00 EST, Dry Weight Start Date: 03/17/20 Status: Orderedallopurinol 300 mg oral tablet 1, tablet, By Mouth, Daily, # 90 tablet, Refills 0, Tot. Refills 0, Maintenance, 04/05/20 9:38:00 EDT, Route to Pharmacy Electronically, [facility]/pharmacy #[id number], 160.02, cm, 03/29/20 10:57:00 [...] 1 CAPSULE BY MOUTH EVERY DAY, [facility]/pharmacy #[id number] Start Date: 04/20/19 Status: Orderedcyanocobalamin 500 mcg oral tablet 1 tablet = 500 mcg, By Mouth, Daily, # 90 tablet, 0 Refills, Maintenance, 02/11/20 13:33:00 EDT, Tablet, [facility]/pharmacy #0693, 160.02, cm, 02/11/20 13:03:00 [...] 04/07/20 11:50:00 EDT, Route to Pharmacy Electronically, [facility]/pharmacy #[id number], 160.02, cm, 03/29/20 10:57:00 EDT,Height, 81.6, kg, 07/27/19 14:52:00 EST, Dry Weight Start Date: 04/07/20 Status: Orderedgabapentin 300 mg oral capsule 300 mg, 1, capsule, By Mouth, 3 times a day, # 90 capsule, Refills 5, Tot. Refills 5, Maintenance, 04/13/20 12:42:00 EDT, Route to Pharmacy Electronically, [facility]/pharmacy #[id number], 160.02, cm, 03/29/20 10:57:00 [...] 1 Refills, Maintenance, 05/12/20 14:54:00 EDT, Capsule, [facility]/pharmacy #[id number], 160.02, cm, 05/09/20 12:34:00 [...] Refills, Maintenance, 04/24/20 9:53:00 EDT, Tablet, [facility]/pharmacy #[id number], 1 tablet By Mouth [...] 401-450: 1... Start Date: 02/21/20 Status: OrderedPen [place], 31 G x 5 mm BD Ultra [...] 07/20/19 16:14:12 EST, Route to Pharmacy Electronically, [id number], [facility]/pharmacy #[id number] Start Date: 07/20/19 Status: Orderedspironolactone 100 mg oral tablet 1, tablet, By Mouth, Daily, # 30 tablet, Refills 2, Tot. Refills 2, Maintenance, 05/16/20 16:31:00 EDT, Route to Pharmacy Electronically, [facility]/pharmacy #[id number], 160.02, cm, 05/09/20 12:34:00 EDT, Height, 73.6, kg, 04/18/20 10:19:00 EDT, Dry Weight Start Date: 05/16/20 Status: OrderedtraMADol 50 mg oral tablet See Instructions, PRN Pain , Severe, 1-2 tablets by mouth every 6 hours, # 240 tablet, 1 Refills, Soft Stop, 03/14/20 14:29:00 EDT, [facility]/pharmacy #[id number], 160.02, cm, 03/14/20 13:30:00 [...] Unknown, 0 Refills, Maintenance, 04/30/20 11:15:00 EDT, [facility]/pharmacy #[id number], 160.02, cm, 04/18/20 10:19:00 EDT, Height, [...] Osteoporosis(Confirmed) Active *[facility] [phone] 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 50-70% bilaterally.3[facility] and patient sees Dr. Gume Mart Social History Social History Type Response Smoking Status Current some day smoker; Typ e: Cigarettes; Other: less than 1/2 pack a day; Tobacco use times per day: 1/2 pack a day; entered on: 02/19/17 Sex
--- OUTSIDE RECORDS SUMMARY | 2022-06-09 08:50 | XMS_ITS | Continuity of Care Document ---
:1950 Author Organization [facility] [place] [facility] Address [address] [place] [address]- Care Team Providers Name Role Phone Ranjeet Rushing MD Primary Care Physician [facility]counter [facility] Date(s): 07/06/20 - 08/05/20 [facility] [place] [facility] [address] [place] [address]- Allergies, Adverse Reactions, Alerts Substance Reaction Severity [...] (PPV23) (oldterm)11 07/19/08 Given 1Result Comment: [05/28/2017] [facility]: [id number] History: [id number] Note: VIS GIVEN-DATED Admin Note: vis [id number] Note: VIS [id number] Note: [id number] History: [facility] [id number] History: [facility] DEANGELO Gray Comment: [10/17/2015] PER NICO AT [id number] Note: VIS [id number] Note: VIS GIVEN Medications 12 inch Grab [...] 11 Refills, Maintenance, 05/05/20 14:02:00 EDT, Powder, [facility]/pharmacy #[id number], 2 puffs Inhalation Every 6 hours,PRN:as needed, 160.02, cm, 05/05/20 13:43:00 EDT, Height, 73.6, kg, 04/18/20 10:1... Start Date: 05/05/20 Status: Orderedalendronate 70 mg oral tablet 1 tablet, By Mouth, Every week, # 12 tablet, 0 Refills, Maintenance, 06/01/20 9:05:00 EDT, [facility]/pharmacy #[id number], 160.02, cm, 05/09/20 12:34:00 EDT, Height, 73.6, kg, 04/18/20 10:19:00 EDT, Dry Weight Start Date: 06/01/20 Status: Orderedallopurinol 300 mg oral tablet 300 mg, 1, tablet, By Mouth, Daily, # 90 tablet, Refills 0, Tot. Refills 0, Maintenance, 07/06/20 15:50:00 EST, Route to Pharmacy Electronically, [facility]/pharmacy #[id number], 160.02, cm, 07/03/20 14:54:00 EST, [...] 07/06/20 15:48:00 EST, Route to Pharmacy Electronically, [facility]/pharmacy #[id number], 160.02, cm, 07/03/20 14:54:00 EST,Height, [...] 3 Refills, Maintenance, 07/04/20 11:46:00 EST, Capsule, [facility]/pharmacy #[id number], 160.02, cm, 07/03/20 14:54:00 EST, Height, 73.6, kg, 04/18/20 10:19:00 EDT, Dry Weight Start Date: 07/04/20 Status: Orderedmagnesium oxide 400 mg oral tablet 1 tablet = 400 mg, By Mouth, Daily, PER RAJNI CARDONA, # 90 tablet, 0 Refills, Maintenance, 06/28/20 12:11:00 EST, [facility]/pharmacy #[id number], 160.02, cm, 06/01/20 11:03:00 EDT, Height, 73.6, kg, 04/18/20 10:19:00 EDT, Dry Weight Start Date: 06/28/20 Status: OrderedMelatonin 3 mg oral tablet 1 tablet = 3 mg, By Mouth, Daily at bedtime, PRN for insomnia, [facility] brand, # 90 tablet, 3 Refills, Maintenance, 04/24/20 9:53:00 EDT, Tablet, [facility]/pharmacy #[id number], 1 tablet By Mouth Daily [...] each, 5 Refills, Maintenance, 02/21/20 11:53:00 EDT, [facility]/pharmacy #[id number], 301-350: 12 units, 351-400: 14 units, 401-450: 1... Start Date: 02/21/20 Status: OrderedoxyCODONE 5 mg oral capsule 1 capsule = 5 mg, By Mouth, Every 6 hours, PRN as needed for pain, 0 Refills, Maintenance, 06/01/20 11:12:00 EDT, Capsule, Partial fill upon patient request Start Date: 06/01/20 Status: OrderedPen [place], 31 G x 5 mm BD Ultra [...] 06/28/20 9:31:00 EST, Route to Pharmacy Electronically, [facility]/pharmacy #[id number], 160.02, cm, 06/01/20 11:03:00 EDT, Height, 73.6, kg, 04/18/20 10:19:00 EDT,... Start Date: 06/28/20 Status: Orderedspironolactone 100 mg oral tablet 1, tablet, By Mouth, Daily, # 30 tablet, Refills 2, Tot. Refills 2, Maintenance, 05/16/20 16:31:00 EDT, [id number] 160.02, cm, 05/09/20 12:34:00 EDT, Height, 73.6, kg, 04/18/20 10:19:00 EDT, Dry Weight Start Date: 05/16/20 Status: OrderedtraMADol 50 mg oral tablet See Instructions, PRN Pain , Severe, 1-2 tablets by mouth every 6 hours Schedule follow visit, # 240tablet, 1 Refills, Soft Stop, 05/19/20 16:27:00 EDT, [facility]/pharmacy #0693, 160.02, cm, 05/09/20 12:34:00 EDT, [...] 5 Refills, Soft Stop, 12/16/19 15:45:00 EDT, [facility]/pharmacy #0693, 160.02, cm, 11/02/19 15:34:00 EDT, [...] Refills, Maintenance, 07/03/20 15:20:00 EST, ER Tablet, [facility]/pharmacy #0693, 160.02, cm, 07/03/20 14:54:00 EST, [...] myelopathy(Confirmed) OA (osteoarthritis), Active cervical(Confirmed) Osteoporosis(Confirmed) Active *[facility] [phone] 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 50-70% bilaterally.3Patient's behavioral pediatrician is [facility] and patient sees Dr. Gume Mart Social History Social History Type Response Smoking Status Current some day smoker; Typ e: Cigarettes; Other: less than 1/2 pack a day; Tobacco use times per day: 1/2 pack a day; entered on: 02/19/17 Sex
--- OUTSIDE RECORDS SUMMARY | 2022-06-09 08:50 | XMS_ITS | Continuity of Care Document ---
:1950 Author Organization [facility] Adult Address [address] [place] [address]- Care Team Providers Name Role Phone Kristan SUTTON, Ranjeet Beatty Primary Care Physician [facility] Date[facility]s): 05/21[facility]21 - 05/28/21 [facility] [address] [place] [address]- Attending Physician: Chari Grey NP Referring Physician: [...] 07/19/08 Given 1Result Comment: [05/28/2017] [facility]: [id number] History: [id number] Note: VIS GIVEN-DATED Admin Note: vis [id number] Note: VIS [id number] Note: VIS-[id number] History: [facility] [id number] History: [facility] [id number] Comment: [10/17/2015] PER NICO AT [id number] Note: VIS [id number] Note: VIS GIVEN Medications 12 inch Grab [...] 11 Refills, Maintenance, 05/05/20 14:02:00 EDT, Powder, [facility]/pharmacy #0693, 2 puffs Inhalation Every 6 hours,PRN:as needed, 160.02, cm, 05/05/20 13:43:00 EDT, Height, 73.6, kg, 04/18/20 10:1... Start Date: 05/05/20 Status: Orderedalendronate 70 mg oral tablet 1 tablet, By Mouth, Every week, # 12 tablet, 6 Refills, Maintenance, 01/09/21 16:07:00 EDT, [facility] STORE 98826, 160, cm, 12/25/20 14:20:00 EDT, Height, 77.5, kg, 10/05/20 14:31:00 EST, Dry Weight Start Date: 01/09/21 Status: Orderedallopurinol 300 mg oral tablet 300 mg, 1, tablet, By Mouth, Daily, # 90 tablet, Refills 1, Tot. Refills 1, Maintenance, 01/26/21 12:31:00 EDT, Route to Pharmacy Electronically, [facility]/pharmacy #0693, 160, cm, 12/25/20 14:20:00 EDT, [...] Refills, Maintenance, 03/12/21 10:51:00 EDT, [facility], 160, cm, 02/27/21 13:50:00 EDT, Height, 79.6, [...] 1 Refills, Maintenance, 02/08/21 9:52:00 EDT, Tablet, [facility]/pharmacy #0693, 160, cm, 01/25/21 14:11:00 EDT, [...] 02/06/21 9:05:00 EDT, Route to Pharmacy Electronically, [facility]/pharmacy #0693, 160, cm, 01/25/21 14:11:00 EDT, Height, 77.5, kg, 10/05/20 14:31:00 EST, Dry Weight Start Date: 02/06/21 Stop Date: 08/05/21 Status: OrderedHumira 40 mg subcutaneous solution See Instructions, 40 mg Q3sthzo, 0 Refills, Maintenance, 10/23/20 13:46:00 EST, Partial fill upon patient request if the prescription is for a schedule II opioid drug. Start Date: 10/23/20 Status: OrderedLyrica 150 mg oral capsule 1 capsule = 150 mg, By Mouth, 2 times a day, DOSAGE INCREASE, # 60 capsule, 3 Refills, Maintenance, 01/23/21 14:56:00 EDT, Capsule, [facility]/pharmacy #0693, 160, cm, 01/14/21 11:46:00 EDT, Height, 77.5, kg,10/05/20 14:31:00 EST, Dry Weight Start Date: 01/23/21 Status: Orderedmagnesium oxide 400 mg (240 mg elemental magnesium) oral tablet 1 tablet, By Mouth, Daily, # 90 tablet, 0 Refills, Acute, 09/20/20 12:20:00 EST, [facility] STORE 71260, 90, TAKE 1 TABLET BY MOUTH DAILY, 160, cm, 09/12/20 14:03:00 EST, Height, 71.3, kg, 08/08/20 7:00:00 EST, Dry Weight Start Date: 09/20/20 Status: OrderedMelatonin 3 mg oral tablet 1 tablet = 3 mg, By Mouth, Daily at bedtime, PRN for insomnia, [employer] brand, # 90 tablet, 3 Refills, Maintenance, 04/24/20 9:53:00 EDT, Tablet, [facility]/pharmacy #0693, 1 tablet By Mouth Daily at bedtime,PRN:for insomnia,Instr:[employer] brand, 160.02, cm, 04/18/20... Start Date: 04/24/20 [...] if th... Start Date: 08/30/20 Status: OrderedPen [place], 31 G x 5 mm BD Ultra [...] 01/09/21 15:06:00 EDT, Route to Pharmacy Electronically, [facility]/pharmacy #0693, 160, cm, 12/25/20 14:20:00 EDT, Height, 77.5, kg, 10/05/20 14:31:00 EST, Dr... Start Date: 01/09/21 Status: Orderedspironolactone 100 mg oral tablet 100 mg, 1, tablet, By Mouth, Daily, # 90 tablet, Refills 0, Tot. 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 Gume Mart Vital Signs Most recent to oldest [Reference Range]: 1 Height 160 cm (05/21/21 11:03 AM) Social History Social History Type Response Tobacco Other: last cigarette 0. Sex
--- OUTSIDE RECORDS SUMMARY | 2022-06-09 08:50 | XMS_ITS | Continuity of Care Document ---
:1950 Author Organization [facility] [place] Adult Address [address] [place] [address]- Care Team Providers Name Role Phone Ranjeet Rushing MD Primary Care Physician [facility]counter [facility] Date(s): 01/05/21 - 02/04/21 [facility] [place] Adult [address] [place] [address]- Allergies, Adverse Reactions, Alerts Substance Reaction Severity [...] 07/19/08 Given 1Result Comment: [05/28/2017] [facility]: [id number] History: [id number] Note: VIS GIVEN-DATED Admin Note: vis [id number] Note: VIS [id number] Note: VIS-[id number] History: [facility] [id number] History: [facility] [id number] Comment: [10/17/2015] PER NICO AT [id number] Note: VIS [id number] Note: VIS GIVEN Medications 12 inch Grab Bars 12 inch Grab Bars, See Instructions, # 2 each, Refills 0, Tot. Refills 0, Maintenance, Grab bars : Length 12inches Use as directed DX Unsteady Gait ICD10 R26.81 HT: 5'3 Weight 162lbs Length of need Lifetime, 07/07/20 11:45:00 EST, Supply Start Date: 07/07/20 Status: OrderedADMIT TO COUNTS INCLUDE 234 BEDS AT THE [facility] ADMIT TO COUNTS INCLUDE 234 BEDS AT THE [facility], See Instructions, # 1 each, Refills 0, Tot. Refills 0, Maintenance, FAX [phone] ADMIT TO [facility], PT, OT. 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 Refills 1, Maintenance, 01/26/21 12:31:00 EDT, Route to Pharmacy Electronically, [facility]/pharmacy #[id number], 160, cm, 12/25/20 14:20:00 [...] Maintenance, 09/28/20 11:53:00 EST, Tablet, [facility]/pharmacy #0693, 160, cm, 09/12/20 14:03:00 EST, Height, [...] [facility]/pharmacy #0693, 160.02, cm, 07/03/20 14:54:00 EST,Height, 73.6, kg, 04/18/20 10:19:00 EDT, Dry Weight Start Date: 07/06/20 Stop Date: 10/04/20 Status: OrderedHumira 40 mg subcutaneous solution See Instructions, 40 mg [id number], 0 Refills, Maintenance, 10/23/20 13:46:00 EST, Partial fill upon patient request if the prescription is for a schedule II opioid drug. Start Date: 10/23/20 Status: OrderedLyrica 150 mg oral capsule 1 capsule = 150 mg, By Mouth, 2 times a day, DOSAGE INCREASE, # 60 capsule, 3 Refills, Maintenance, 01/23/21 14:56:00 EDT, Capsule, [facility]/pharmacy #0693, 160, cm, 01/14/21 11:46:00 EDT, Height, 77.5, kg,10/05/20 14:31:00 EST, Dry Weight Start Date: 01/23/21 Status: Orderedmagnesium oxide 400 mg (240 mg elemental magnesium) oral tablet 1 tablet, By Mouth, Daily, # 90 tablet, 0 Refills, Acute, 09/20/20 12:20:00 EST, [facility] STORE [facility]873, 90, TAKE 1 TABLET BY MOUTH DAILY, [...] if th... 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 50-70% bilaterally.3[facility] elevator [facility] and [facility] sees Dr. Gume Mart Social History Social History Type Response Tobacco Other: last cigarette 0. Sex
--- OUTSIDE RECORDS SUMMARY | 2022-06-09 08:50 | XMS_ITS | Continuity of Care Document ---
:1950 Author Organization [facility] Adult Address [address] [place] [address]- Care Team Providers Name Role Phone Kristan SUTTON, Ranjeet Beatty Primary Care Physician Encounter [facility] Date(s): 01/07/20 - 01/14/20 [facility] Adult [address] [place] [id number]- [facility] Encounter Diagnosis Cervical radiculopathy at C6 (Discharge Diagnosis) - 01/07/20 Anxiety (Discharge Diagnosis) - 01/07/20 Attending Physician: Chari Grey NP Referring Physician: [...] (oldterm)11 07/19/08 Given 1Result Comment: [05/28/2017] [facility]: [id number] History: [id number] Note: VIS GIVEN-DATED Admin Note: vis [id number] Note: VIS [id number] Note: VIS-[id number] History: [facility] [id number] History: [facility] [id number] Comment: [10/17/2015] PER NICO AT [id number] Note: VIS [id number] Note: VIS GIVEN Medications albuterol 90 mcg/inh inhalation powder 2 puffs, Inhalation, Every 6 hours, PRN as needed, # 1 each, 11 Refills, Maintenance, 12/29/18 9:38:36 EDT, Powder, 2 puffs Inhalation Every 6 hours,PRN:as needed Start Date: 12/29/18 Status: Orderedalendronate 70 mg oral tablet 1 tablet = 70 mg, By Mouth, Every week, # 12 tablet, 0 Refills, Maintenance, 12/29/19 9:01:00 EDT, Tablet, [facility]/pharmacy #[id number], 160.02, cm, 11/02/19 15:34:00 EDT, Height, 81.6, kg, 07/27/19 14:52:00 EST, Dry Weight Start Date: 12/29/19 Status: Orderedallopurinol 300 mg oral tablet 1, tablet, By Mouth, Daily, # 90 tablet, Refills 1, Tot. Refills 0, Maintenance, 11/08/19 12:00:00 EDT, Route to Pharmacy Electronically, [facility] [address]59, 160.02, cm, 11/02/19 15:34:00 EDT, Height, 81.6, [...] 1 CAPSULE BY MOUTH EVERY DAY, [facility]/pharmacy #[id number] Start Date: 04/20/19 Status: Orderedcyanocobalamin 500 [...] 11/08/19 11:59:00 EDT, Route to Pharmacy Electronically, [facility] ST[facility] 19701, 160.02, cm, 11/02/19 15:34:00 EDT, Height, 81.6, kg, 07/27/19 14:52:00 EST, Dry Weight Start Date: 11/08/19 Status: Orderedgabapentin 300 mg oral capsule 300 mg, 1, capsule, By Mouth, 3 times a day, # 90 capsule, Refills 5, Tot. Refills 5, Maintenance, 11/02/19 16:04:00 EDT, Route to Pharmacy Electronically, [facility]/pharmacy #[id number], 160.02, cm, 11/02/19 15:34:00 EDT, Height, [...] 3 Refills, Maintenance, 01/07/20 16:00:00 EDT, Tablet, [facility]/pharmacy #[id number], 1 tablet By Mouth Daily at bedtime,PRN:for insomnia, 160.02, cm, 01/07/20 15:07:00 EDT, Height, 81.6... Start Date: 01/07/20 Status: OrderedMultivitamin Daily, 0 Refills, Maintenance, 12/09/19 [...] Call PCP... Start Date: 10/29/17 Status: OrderedPen [place], 31 G x 5 mm BD Ultra Fine III See Instructions, # 200 each, Refills 5, Tot. Refills 5, Maintenance, To inject insulin BID for DM II E11.9 PER CHARI GREY NP-C, 12/28/18 12:38:05 EDT, SHORT, Compound Start Date: 12/28/18 Status: Orderedsimvastatin 10 mg oral tablet 10 mg, 1, tablet, By Mouth, Daily at bedtime, # 90 tablet, Refills 3, Tot. Refills 3, Maintenance, 07/20/19 16:14:12 EST, Route to Pharmacy Electronically, [id number], [facility]/pharmacy #[id number] Start Date: 07/20/19 Status: Orderedspironolactone 100 mg oral tablet 1, tablet, By Mouth, Daily, # 30 tablet, Refills 5, Tot. Refills 0, Maintenance, 12/07/19 13:00:00 EDT, Route to Pharmacy Electronically, [facility] ST[facility] 21871, 160.02, cm, 11/02/19 15:34:00 EDT, Height, 81.6, kg, 07/27/19 14:52:00 EST, Dry Weight Start Date: 12/07/19 Status: OrderedtraMADol 50 mg oral tablet See Instructions, PRN Pain , Severe, 1-2 tablets by mouth every 6 hours, # 240 tablet, 1 Refills, Soft Stop, 01/07/20 15:58:00 EDT, [facility]/pharmacy #[id number], 160.02, cm, 01/07/20 15:07:00 EDT, Height, [...] Refills, Soft Stop, 12/16/19 15:45:00 EDT, [facility]/pharmacy #0693, 160.02, cm, 11/02/19 15:34:00 EDT, Height, [...] Refills, Maintenance, 10/20/19 9:16:00 EST, Capsule, [facility]/pharmacy #[id number], resent from 08/14, 160.02, cm, 09/29/19 [...] Osteoporosis(Confirmed) Active *FORMERLY [facility] [phone] 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 50-70% bilaterally.3[facility]'s pin inserter [facility] and [facility] sees Dr. Gume Mart Diagnosis Diagnosis Type Effective Dates Health Clinical Infor mant Status Service Cervical Discharge 01/07/20 radiculopathy at C6 Diagnosis Anxiety Discharge 01/07/20 Diagnosis Vital Signs Most recent to oldest [Reference Range]: 1 Height 160.02 cm (01/07/20 3:07 PM) Social History Social History Type Response Smoking Status Current some day smoker; Typ e: Cigarettes; Other: less than 1/2 pack a day; Tobacco use times per day: 1/2 pack a day; entered on: 02/19/17 Sex
--- OUTSIDE RECORDS SUMMARY | 2022-06-09 08:50 | XMS_ITS | Continuity of Care Document ---
:1950 Author Organization [facility] [place] Adult Address [address] [place] [address]- Care Team Providers Name Role Phone Kristan SUTTON, Ranjeet Beatty Primary Care Physician [facility]counter [facility] Date(s): 06/01/21 - 07/01/21 [facility] [place] Adult [address] [place] [address]- Allergies, Adverse Reactions, Alerts Substance Reaction Severity [...] 07/19/08 Given 1Result Comment: [05/28/2017] [facility]: [id number] History: [id number] Note: VIS GIVEN-DATED Admin Note: vis [id number] Note: VIS [id number] Note: VIS-[id number] History: [facility] [id number] History: [facility] [id number] Comment: [10/17/2015] PER NICO AT [id number] Note: VIS [id number] Note: VIS GIVEN Medications 12 inch Grab [...] 11 Refills, Maintenance, 05/05/20 14:02:00 EDT, Powder, [facility]/pharmacy #[id number], 2 puffs Inhalation Every 6 hours,PRN:as needed, 160.02, cm, 05/05/20 13:43:00 EDT, Height, 73.6, kg, 04/18/20 10:1... Start Date: 05/05/20 Status: Orderedalendronate 70 mg oral tablet 1 tablet, By Mouth, Every week, # 12 tablet, 6 Refills, Maintenance, 01/09/21 16:07:00 EDT, [facility] ST[facility], 160, cm, 12/25/20 14:20:00 EDT, Height, 77.5, kg, 10/05/20 14:31:00 EST, Dry Weight Start Date: 01/09/21 Status: Orderedallopurinol 300 mg oral tablet 300 mg, 1, tablet, By Mouth, Daily, # 90 tablet, Refills 1, Tot. Refills 1, Maintenance, 01/26/21 12:31:00 EDT, Route to Pharmacy Electronically, [facility]/pharmacy #[id number], 160, cm, 12/25/20 14:20:00 EDT, Height, [...] Refills, Maintenance, 03/12/21 10:51:00 EDT, [facility], 160, cm, 02/27/21 13:50:00 EDT, Height, 79.6, [...] 1 Refills, Maintenance, 02/08/21 9:52:00 EDT, Tablet, [facility]/pharmacy #[id number], 160, cm, 01/25/21 14:11:00 EDT, Height, [...] 02/06/21 9:05:00 EDT, Route to Pharmacy Electronically, [facility]/pharmacy #[id number], 160, cm, 01/25/21 14:11:00 EDT, Height, 77.5, kg, 10/05/20 14:31:00 EST, Dry Weight Start Date: 02/06/21 Stop Date: 08/05/21 Status: OrderedHumira 40 mg subcutaneous solution See Instructions, 40 mg [id number], 0 Refills, Maintenance, 10/23/20 13:46:00 EST, Partial fill upon patient request if the prescription is for a schedule II opioid drug. Start Date: 10/23/20 Status: OrderedLyrica 150 mg oral capsule 1 capsule = 150 mg, By Mouth, 2 times a day, DOSAGE INCREASE, # 60 capsule, 3 Refills, Maintenance, 01/23/21 14:56:00 EDT, Capsule, [facility]/pharmacy #[id number], 160, cm, 01/14/21 11:46:00 EDT, Height, 77.5, kg,10/05/20 14:31:00 EST, Dry Weight Start Date: 01/23/21 Status: Orderedmagnesium oxide 400 mg (240 mg elemental magnesium) oral tablet 1 tablet, By Mouth, Daily, # 90 tablet, 0 Refills, Acute, 09/20/20 12:20:00 EST, [facility] ST[facility], 90, TAKE 1 TABLET BY MOUTH DAILY, 160, cm, 09/12/20 14:03:00 EST, Height, 71.3, kg, 08/08/20 7:00:00 EST, Dry Weight Start Date: 09/20/20 Status: Orderedmagnesium oxide 400 mg oral tablet 1 tablet = 400 mg, By Mouth, Daily, # 100 tablet, 2 Refills, Maintenance, 06/05/21 11:32:00 EDT, Tablet, [facility]/pharmacy #[id number], Partial fill upon patient request if the prescription is for a schedule II opioid drug., 160, cm, 05/21/21 11:03:00 EDT, Heigh... Start Date: 06/05/21 Status: OrderedMelatonin 3 mg oral tablet 1 tablet = 3 mg, By Mouth, Daily at bedtime, PRN for insomnia, [facility], # 90 tablet, 3 Refills, Maintenance, 04/24/20 9:53:00 EDT, Tablet, [facility]/pharmacy #[id number], 1 tablet By Mouth Daily at [...] EDT, Injec... Start Date: 06/11/21 Status: OrderedPen [place], 31 G x 5 mm BD Ultra Fine III See Instructions, # 200 each, Refills 5, Tot. Refills 5, Maintenance, To inject insulin BID for DM II E11.9 PER RAJNI EMERY FLIGHT FOLLOWER-C, 10/06/20 10:54:00 EST, SHORT, Compound, 160, cm, [...] 01/09/21 15:06:00 EDT, Route to Pharmacy Electronically, [facility]/pharmacy #[id number], 160, cm, 12/25/20 14:20:00 EDT, Height, 77.5, kg, 10/05/20 14:31:00 EST, Start Date: 01/09/21 Status: Orderedspironolactone 100 mg oral tablet 100 mg, 1, tablet, By Mouth, Daily, # 90 tablet, Refills 0, Tot. Refills 0, Maintenance, 01/23/21 14:56:00 EDT, Route to Pharmacy Electronically, [facility]/pharmacy #[id number], Partial fill upon patient request if the prescription is for a schedule II opioid carlene Start Date: 01/23/21 Stop Date: 04/23/21 Status: OrderedtraMADol 50 mg oral tablet See Instructions, TAKE 1-2 TABLETS BY MOUTH EVERY 6 HOURS SCHEDULE FOLLOW VISIT, NEEDED FOR PAIN,# 240 tablet, 5 Refills, Maintenance, 05/31/21 9:52:00 EDT, [facility]/pharmacy #[id number], 160, cm, 05/21/21 11:03:00 EDT, Height, [...] 3 Refills, Maintenance, 04/19/21 11:35:00 EDT, Powder, 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 Gume Mart Social History Social History Type Response Tobacco Other: last cigarette 0. Sex
--- OUTSIDE RECORDS SUMMARY | 2022-06-09 08:50 | XMS_ITS | Continuity of Care Document ---
:1950 Author Organization [facility] Address [address] [place] [address]- Care Team Providers Name Role Phone Ranjeet Rushing MD Primary Care Physician Encounter [facility] Date(s): 06/25/21 - 07/25/21 [facility] [address] [place] [address]- Allergies, Adverse Reactions, Alerts Substance Reaction Severity [...] 07/19/08 Given 1Result Comment: [05/28/2017] [facility]: [id number] History: [id number] Note: VIS GIVEN-DATED Admin Note: vis [id number] Note: VIS [id number] Note: VIS-[id number] History: [facility] [id number] History: [facility] [id number] Comment: [10/17/2015] PER NICO AT [id number] Note: VIS [id number] Note: VIS GIVEN Medications 12 inch Grab [...] 11 Refills, Maintenance, 05/05/20 14:02:00 EDT, Powder, [facility]/pharmacy #0693, 2 puffs Inhalation Every 6 hours,PRN:as needed, 160.02, cm, 05/05/20 13:43:00 EDT, Height, 73.6, kg, 04/18/20 10:1... Start Date: 05/05/20 Status: Orderedalendronate 70 mg oral tablet 1 tablet, By Mouth, Every week, # 12 tablet, 6 Refills, Maintenance, 01/09/21 16:07:00 EDT, [facility] STORE 70595, 160, cm, 12/25/20 14:20:00 EDT, Height, 77.5, kg, 10/05/20 14:31:00 EST, Dry Weight Start Date: 01/09/21 Status: Orderedallopurinol 300 mg oral tablet 1, tablet, By Mouth, Daily, # 90 tablet, Refills 1, Route to Pharmacy Electronically, [facility] [address], 160, cm, 06/19/21 13:57:00 EDT, Height, 77.27, [...] tablet, 5 Refills, Maintenance, 03/12/21 10:51:00 EDT, [facility], 160, cm, 02/27/21 13:50:00 EDT, Height, 79.6, [...] 1 Refills, Maintenance, 02/08/21 9:52:00 EDT, Tablet, [facility]/pharmacy #0693, 160, cm, 01/25/21 14:11:00 EDT, [...] 02/06/21 9:05:00 EDT, Route to Pharmacy Electronically, [facility]/pharmacy #0693, 160, cm, 01/25/21 14:11:00 EDT, Height, 77.5, kg, 10/05/20 14:31:00 EST, Dry Weight Start Date: 02/06/21 Stop Date: 08/05/21 Status: OrderedHumira 40 mg subcutaneous solution See Instructions, 40 mg [id number], 0 Refills, Maintenance, 10/23/20 13:46:00 EST, Partial fill upon patient request if the prescription is for a schedule II opioid drug. Start Date: 10/23/20 Status: OrderedLyrica 150 mg oral capsule 1 capsule = 150 mg, By Mouth, 2 times a day, DOSAGE INCREASE, # 60 capsule, 3 Refills, Maintenance, 07/09/21 14:12:00 EST, Capsule, [facility]/pharmacy #0693, 160, cm, 06/19/21 13:57:00 EDT, Height, 77.27, kg, 03/24/21 20:58:00 EDT, Dry Weight Start Date: 07/09/21 Status: Orderedmagnesium oxide 400 mg (240 mg elemental magnesium) oral tablet 1 tablet, By Mouth, Daily, # 90 tablet, 0 Refills, Acute, 09/20/20 12:20:00 EST, [facility], 90, TAKE 1 TABLET BY MOUTH DAILY, 160, cm, 09/12/20 14:03:00 EST, Height, 71.3, kg, 08/08/20 7:00:00 EST, Dry Weight Start Date: 09/20/20 Status: Orderedmagnesium oxide 400 mg oral tablet 1 tablet = 400 mg, By Mouth, Daily, # 100 tablet, 2 Refills, Maintenance, 06/05/21 11:32:00 EDT, Tablet, [facility]/pharmacy #0693, Partial fill upon patient request if the prescription is for a schedule II opioid drug., 160, cm, 05/21/21 11:03:00 EDT, [facility]... Start Date: 06/05/21 Status: OrderedMelatonin 3 mg oral tablet 1 tablet = 3 mg, By Mouth, Daily at bedtime, PRN for insomnia, [facility], # 90 tablet, 3 Refills, Maintenance, 04/24/20 9:53:00 EDT, Tablet, [facility]/pharmacy #0693, 1 tablet By Mouth [...] EDT, Injec... Start Date: 06/11/21 Status: OrderedPen [place], 31 G x 5 mm BD Ultra [...] 01/09/21 15:06:00 EDT, Route to Pharmacy Electronically, [facility]/pharmacy #0693, 160, cm, 12/25/20 14:20:00 EDT, Height, 77.5, kg, 10/05/20 14:31:00 EST, Start Date: 01/09/21 Status: Orderedspironolactone 100 mg oral tablet 100 mg, 1, tablet, By Mouth, Daily, # 90 tablet, Refills 1, Tot. Refills 1, Maintenance, 07/23/21 13:10:00 EST, [facility] Partial fill upon patient request if the prescription is for a schedule II opioid carlene Start Date: 07/23/21 Stop Date: 01/19/22 Status: OrderedtraMADol 50 mg oral tablet See Instructions, TAKE 1-2 TABLETS BY MOUTH EVERY 6 HOURS SCHEDULE FOLLOW VISIT, NEEDED FOR PAIN,# 240 tablet, 5 Refills, Maintenance, 05/31/21 9:52:00 EDT, [facility]/pharmacy #0693, 160, cm, 05/21/21 11:03:00 [...] 3 Refills, Maintenance, 04/19/21 11:35:00 EDT, Powder, [facility]/pharmacy #0693, Partial fill upon patient [...] # 9 Unknown, 2 Refills, [facility], 160, cm, 06/19/21 13:57:00 EDT, Height, 77.27, [...] Osteoporosis(Confirmed) Active *[facility] [phone] 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 50-70% bilaterally.3[facility] b [facility] and [facility] Dr. Gume Mart Social History Social History Type Response Tobacco Other: last cigarette 0. Sex
--- OUTSIDE RECORDS SUMMARY | 2022-06-09 08:50 | XMS_ITS | Continuity of Care Document ---
:1950 Author Organization Wound Care Address [address] [place] [address]- Care Team Providers Name Role Phone Kristan SUTTON, Ranjeet Beatty Primary Care Physician Encounter [facility] Date(s): 05/05/21 - 06/10/21 Wound Care [address] [place] [id number] Attending Physician: Eliu Cameron MD Admitting Physician: Eliu Cameron MD Referring Physician: Ranjeet Rushing MD Allergies, [...] (PPV23) (oldterm)11 07/19/08 Given 1Result Comment: [05/28/2017] [facility]: [id number] History: [id number] Note: VIS GIVEN-DATED Admin Note: vis [id number] Note: VIS [id number] Note: VIS-HQQBY8Kkiallyo [place] [facility] [id number] [facility]: [facility] [id number] Comment: [10/17/2015] PER NICO AT [id number] Note: VIS [id number] Note: VIS GIVEN Medications 12 inch Grab [...] tablet, 6 Refills, Maintenance, 01/09/21 16:07:00 EDT, [facility] ST[facility] 25272, 160, cm, 12/25/20 14:20:00 EDT, Height, 77.5, kg, 10/05/20 14:31:00 EST, Dry Weight Start Date: 01/09/21 Status: Orderedallopurinol 300 mg oral tablet 300 mg, 1, tablet, By Mouth, Daily, # 90 tablet, Refills 1, Tot. Refills 1, Maintenance, 01/26/21 12:31:00 EDT, Route to Pharmacy Electronically, [facility]/pharmacy #[id number], 160, cm, 12/25/20 14:20:00 [...] Refills, Maintenance, 03/12/21 10:51:00 EDT, [facility], 160, cm, 02/27/21 13:50:00 EDT, Height, 79.6, [...] 1 Refills, Maintenance, 02/08/21 9:52:00 EDT, Tablet, [facility]/pharmacy #[id number], 160, cm, 01/25/21 [...] 02/06/21 9:05:00 EDT, Route to Pharmacy Electronically, [facility]/pharmacy #[id number], 160, cm, 01/25/21 14:11:00 EDT, Height, 77.5, kg, 10/05/20 14:31:00 EST, Dry Weight Start Date: 02/06/21 Stop Date: 08/05/21 Status: OrderedHumira 40 mg subcutaneous solution See Instructions, 40 mg [id number], 0 Refills, Maintenance, 10/23/20 13:46:00 EST, Partial fill upon patient request if the prescription is for a schedule II opioid drug. Start Date: 10/23/20 Status: OrderedLyrica 150 mg oral capsule 1 capsule = 150 mg, By Mouth, 2 times a day, DOSAGE INCREASE, # 60 capsule, 3 Refills, Maintenance, 01/23/21 14:56:00 EDT, Capsule, [facility]/pharmacy #[id number], 160, cm, 01/14/21 11:46:00 EDT, Height, 77.5, kg,10/05/20 14:31:00 EST, Dry Weight Start Date: 01/23/21 Status: Orderedmagnesium oxide 400 mg (240 mg elemental magnesium) oral tablet 1 tablet, By Mouth, Daily, # 90 tablet, 0 Refills, Acute, 09/20/20 12:20:00 EST, [facility], 90, TAKE 1 TABLET BY MOUTH DAILY, 160, cm, 09/12/20 14:03:00 EST, Height, 71.3, kg, 08/08/20 7:00:00 EST, Dry Weight Start Date: 09/20/20 Status: Orderedmagnesium oxide 400 mg oral tablet 1 tablet = 400 mg, By Mouth, Daily, # 100 tablet, 2 Refills, Maintenance, 06/05/21 11:32:00 EDT, Tablet, [facility]/pharmacy #[id number], Partial fill upon [...] if th... Start Date: 08/30/20 Status: OrderedPen [place], 31 G x 5 mm BD Ultra [...] 01/09/21 15:06:00 EDT, [facility] to [facility], [id number], 160, cm, 12/25/20 14:20:00 EDT, Height, 77.5, kg, 10/05/20 14:31:00 EST, Start Date: 01/09/21 Status: Orderedspironolactone 100 mg oral tablet 100 mg, 1, tablet, By Mouth, Daily, # 90 tablet, Refills 0, Tot. Refills 0, Maintenance, 01/23/21 14:56:00 EDT, Route to Pharmacy Electronically, [facility]/pharmacy #[id number], Partial fill upon patient request if the prescription is for a schedule II opioid thomasJhoan.. Start Date: 01/23/21 Stop Date: 04/23/21 Status: OrderedtraMADol 50 mg oral tablet See Instructions, TAKE 1-2 TABLETS BY MOUTH EVERY 6 HOURS SCHEDULE FOLLOW VISIT, NEEDED FOR PAIN,# 240 tablet, 5 Refills, Maintenance, 05/31/21 9:52:00 EDT, [facility]/pharmacy #[id number], 160, cm, 05/21/21 [...] 3 Refills, Maintenance, 04/19/21 11:35:00 EDT, Powder, [facility]/pharmacy #[id number], Partial fill upon [...] Osteoporosis(Confirmed) Active *[facility] [phone] PHYSICIAN/ALLERGY/IMMUNOLOGY Alpa Active Nathaniel(Confirmed) Picking own skin(Confirmed) Active 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 50-70% bilaterally.3Patient's belt changer is [facility] and patient sees Dr. Gume Mart Social History Social History Type Response Tobacco Other: last cigarette 0. Sex
--- OUTSIDE RECORDS SUMMARY | 2022-06-09 08:50 | XMS_ITS | Continuity of Care Document ---
:1950 Author Organization W[facility] Care Address [address] [place] [address]- Care Team Providers Name Role Phone Ranjeet Rushing MD Primary Care Physician [place] [facility] [place] Date(s): 02/23/21 - 03/25/21 W[facility] Care [address] [place] [id number] Attending Physician: Evans Brock Admitting Physician: AdmtrEvans Referring Physician: Admtr, Ye8 Allergies, Adverse Reactions, Alerts Substance Reaction Severity [...] 1Result Comment: [05/28/2017] [facility]: [id number] History: [id number] Note: VIS GIVEN-DATED Admin Note: vis [id number] Note: VIS [id number] Note: VIS-[id number] [place] [facility] [id number] History: [facility] [id number] Comment: [10/17/2015] PER NICO AT [id number] Note: VIS [id number] Note: VIS GIVEN Medications 12 inch Grab Bars 12 inch Grab Bars, See Instructions, # 2 each, Refills 0, Tot. Refills 0, Maintenance, Grab bars : Length 12inches Use as directed DX Unsteady Gait ICD10 R26.81 HT: 5'3 Weight 162lbs Length of need Lifetime, 07/07/20 11:45:00 EST, Supply Start Date: 07/07/20 Status: OrderedADMIT [facility] ADMIT TO [facility], See Instructions, # 1 each, Refills 0, Tot. Refills 0, Maintenance, FAX [phone] ADMIT TO CUSTODIAL, PT, OT. 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 Start Date: 10/17/20 Status: Orderedalbuterol 90 mcg/inh inhalation powder 2 puffs, Inhalation, Every 6 hours, PRN as needed, # 1 each, 11 Refills, Maintenance, 05/05/20 14:02:00 EDT, Powder, [facility]/pharmacy #[id number], 2 puffs Inhalation Every 6 hours,PRN:as needed, 160.02, cm, 05/05/20 13:43:00 EDT, Height, 73.6, kg, 04/18/20 10:1... Start Date: 05/05/20 Status: Orderedalendronate 70 mg oral tablet 1 tablet, By Mouth, Every week, # 12 tablet, 6 Refills, Maintenance, 01/09/21 16:07:00 EDT, [facility], 160, cm, 12/25/20 14:20:00 EDT, Height, 77.5, kg, 10/05/20 14:31:00 EST, Dry Weight Start Date: 01/09/21 Status: Orderedallopurinol 300 mg oral tablet 300 mg, 1, tablet, By Mouth, Daily, # 90 tablet, Refills 1, Tot. Refills 1, Maintenance, 01/26/21 12:31:00 EDT, Route to Pharmacy Electronically, [facility]/pharmacy #[id number], 160, cm, 12/25/20 [...] tablet, 5 Refills, Maintenance, 03/12/21 10:51:00 EDT, [facility] STORE 62580, 160, cm, 02/27/21 13:50:00 EDT, Height, 79.6, [...] 1 Refills, Maintenance, 02/08/21 9:52:00 EDT, Tablet, [facility]/pharmacy #[id number], 160, cm, 01/25/21 [...] 02/06/21 9:05:00 EDT, Route to Pharmacy Electronically, [facility]/pharmacy #[id number], 160, cm, 01/25/21 14:11:00 EDT, Height, 77.5, kg, 10/05/20 14:31:00 EST, Dry Weight Start Date: 02/06/21 Stop Date: 08/05/21 Status: OrderedHumira 40 mg subcutaneous solution See Instructions, 40 mg [id number], 0 Refills, Maintenance, 10/23/20 13:46:00 EST, Partial fill upon patient request if the prescription is for a schedule II opioid drug. Start Date: 10/23/20 Status: OrderedLyrica 150 mg oral capsule 1 capsule = 150 mg, By Mouth, 2 times a day, DOSAGE INCREASE, # 60 capsule, 3 Refills, Maintenance, 01/23/21 14:56:00 EDT, Capsule, [facility]/pharmacy #[id number], 160, cm, 01/14/21 11:46:00 EDT, Height, 77.5, kg,10/05/20 14:31:00 EST, Dry Weight Start Date: 01/23/21 Status: Orderedmagnesium oxide 400 mg (240 mg elemental magnesium) oral tablet 1 tablet, By Mouth, Daily, # 90 tablet, 0 Refills, Acute, 09/20/20 12:20:00 EST, [facility] STORE 15765, 90, TAKE 1 TABLET BY MOUTH DAILY, 160, cm, 09/12/20 14:03:00 EST, Height, 71.3, kg, 08/08/20 7:00:00 EST, Dry Weight Start Date: 09/20/20 Status: OrderedMelatonin 3 mg oral tablet 1 tablet = 3 mg, By Mouth, Daily at bedtime, PRN for insomnia, [facility], # 90 tablet, 3 Refills, Maintenance, 04/24/20 9:53:00 EDT, Tablet, [facility]/pharmacy #[id number], 1 tablet By Mouth Daily at bedtime,PRN:for insomnia,Instr:[facility] brand, 160.02, cm, 04/18/20... Start Date: [...] if th... Start Date: 08/30/20 Status: OrderedPen [place], 31 G x 5 mm BD Ultra [...] 01/09/21 15:06:00 EDT, Route to Pharmacy Electronically, [facility]/pharmacy #[id number], 160, cm, 12/25/20 14:20:00 EDT, Height, 77.5, kg, 10/05/20 14:31:00 EST, DrJhoan.. Start Date: 01/09/21 Status: Orderedspironolactone 100 mg oral tablet 100 mg, 1, tablet, By Mouth, Daily, # 90 tablet, Refills 0, Tot. Refills 0, Maintenance, 01/23/21 14:56:00 EDT, [id number] Partial fill upon patient request if the prescription is for a schedule II opioid thomas... 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 50-70% bilaterally.3Patient's performance test engineer is [facility] and patient sees Dr. Gume Mart Social History Social History Type Response Tobacco Other: last cigarette 0. Sex
--- OUTSIDE RECORDS SUMMARY | 2022-06-09 08:51 | XMS_ITS | Continuity of Care Document ---
:1950 Author Organization [facility] Address [address] [place] [address]- Care Team Providers Name Role Phone Kristan SUTTON, Ranjeet Beatty Primary Care Physician [place] [facility] [place] - 11/05/21 [facility] [address] [place] [address]- Attending Physician: Chari Grey NP Allergies, Adverse [...] (oldterm)11 07/19/08 Given 1Result Comment: [05/28/2017] [facility]: [id number] History: [id number] Note: VIS GIVEN-DATED Admin Note: vis [id number] Note: VIS rxjjh6Fhyxn Note: VIS-EUZMY3Junmighn History: [facility] [id number] History: [facility] [id number] Comment: [10/17/2015] PER NICO AT [id number] Note: VIS [id number] Note: VIS GIVEN Medications 12 inch Grab [...] Maintenance, 05/05/20 14:02:00 EDT, Powder, [facility]/pharmacy #[id number], 2 puffs Inhalation Every 6 hours,PRN:as needed, 160.02, cm, 05/05/20 13:43:00 EDT, Height, 73.6, kg, 04/18/20 10:1... Start Date: 05/05/20 Status: Orderedalendronate 70 mg oral tablet 1 tablet, By Mouth, Every week, # 12 tablet, 6 Refills, Maintenance, 01/09/21 16:07:00 EDT, [facility] STORE 19589, 160, cm, 12/25/20 14:20:00 EDT, Height, 77.5, kg, 10/05/20 14:31:00 EST, Dry Weight Start Date: 01/09/21 Status: Orderedallopurinol 300 mg oral tablet 1, tablet, By Mouth, Daily, # 90 tablet, Refills 1, Route to Pharmacy Electronically, [facility] ST[facility] 05206, 160, cm, 06/19/21 13:57:00 EDT, Height, 77.27, [...] 5 Refills, Maintenance, 08/30/21 7:54:00 EST, [facility]/pharmacy #[id number], 160, cm, 07/26/21 10:45:00 [...] Refills, Maintenance, 09/18/21 11:52:00 EST, Tablet, [facility]/pharmacy #[id number], 160, cm, 09/14/21 11:51:00 [...] tablet, 1 Refills, Maintenance, 10/16/21 15:07:00EST, Tablet, [facility]/pharmacy #[id number], Partial fill upon patient [...] Refills 1, Route to Pharmacy Electronically, [facility] ST[facility] 31454, 160, cm, 10/15/21 15:03:00 EST, Height, 75, kg, 09/14/21 11:51:00 EST, Dry Weight Start Date: 10/16/21 Status: OrderedLyrica 150 mg oral capsule 1 capsule = 150 mg, By Mouth, 2 times a day, DOSAGE INCREASE, # 60 capsule, 3 Refills, Maintenance, 07/09/21 14:12:00 EST, Capsule, [facility]/pharmacy #[id number], 160, cm, 06/19/21 13:57:00 EDT, Height, 77.27, kg, 03/24/21 20:58:00 EDT, Dry Weight Start Date: 07/09/21 Status: Orderedmagnesium oxide 400 mg (240 mg elemental magnesium) oral tablet 1 tablet, By Mouth, Daily, # 90 tablet, 0 Refills, Acute, 09/20/20 12:20:00 EST, [facility], 90, TAKE 1 TABLET BY MOUTH DAILY, 160, cm, 09/12/20 14:03:00 EST, Height, 71.3, kg, 08/08/20 7:00:00 EST, Dry Weight Start Date: 09/20/20 Status: Orderedmagnesium oxide 400 mg oral tablet 1 tablet = 400 mg, By Mouth, Daily, # 100 tablet, 2 Refills, Maintenance, 06/05/21 11:32:00 EDT, Tablet, [facility]/pharmacy #[id number], Partial fill upon patient request if the prescription is for a schedule II opioid drug., 160, cm, 05/21/21 11:03:00 EDT, Heigh... Start Date: 06/05/21 Status: OrderedMelatonin 3 mg oral tablet 1 tablet = 3 mg, By Mouth, Daily at bedtime, PRN for insomnia, [facility], # 90 tablet, 3 Refills, Maintenance, 10/17/21 12:02:00 EST, Tablet, [facility]/pharmacy #[id number], 1 tablet By Mouth [...] EDT, Injec... Start Date: 06/11/21 Status: OrderedPen [place], 31 G x 5 mm BD Ultra [...] 17:53:00 EST, Route to Pharmacy Electronically, [facility]/pharmacy #[id number], 160, cm, 09/14/21 11:51:00 [...] EST, Route to Pharmacy Electronically, [facility]/pharmacy #[id number], Partial fill upon patient request if the prescription is for a schedule II opioid thomas... Start Date: 07/23/21 Stop Date: 01/19/22 Status: OrderedtraMADol 50 mg oral tablet See Instructions, TAKE 1-2 TABLETS BY MOUTH EVERY 6 HOURS SCHEDULE FOLLOW VISIT, NEEDED FOR PAIN,# 240 tablet, 5 Refills, Maintenance, 05/31/21 9:52:00 EDT, [facility]/pharmacy #[id number], 160, cm, 05/21/21 11:03:00 [...] Maintenance, 04/19/21 11:35:00 EDT, Powder, [facility]/pharmacy #[id number], Partial fill upon patient [...] # 9 Unknown, 5 Refills, [facility], 160, cm, 09/07/21 15:03:00 EST, Height, 77.27, [...] Active cervical(Confirmed) Osteoporosis(Confirmed) Active *[facility] [phone] 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 50-70% bilaterally.3Patient's quill collector is [facility] and patient sees Dr. Gume Mart Vital Signs Most recent to oldest [Reference Range]: 1 Height 160 cm (10/29/21 2:39 PM) Weight 76.7 kg (10/29/21 2:39 PM) Oxygen Saturation [94-100 %] 94 % (10/29/21 2:39 PM) Pulse Rate [55-90 bpm] 84 bpm (10/29/21 2:39 PM) Body Mass Index [18.5-24.99] 29.96 *H* (10/29/21 2:39 PM) Blood Pressure [90-138/55-84 mm Hg] 112/62 mm Hg (10/29/21 2:39 PM) Respiratory Rate [16-30 br/min] 20 br/min (10/29/21 2:39 PM) Mode of Delivery (Oxygen) Room air (10/29/21 2:39 PM) Blood pressure sites Arm, left (10/29/21 2:39 PM) Weight Obtained Via Standing scale (10/29/21 2:39 PM) Social History Social History Type Response Smoking Status Former smoker, quit more mark n 30 days ago entered on: 09/28/21 Sex
--- OUTSIDE RECORDS SUMMARY | 2022-06-09 08:51 | XMS_ITS | Continuity of Care Document ---
:1950 Author Organization [facility] Address [address] [place] [address]- Care Team Providers Name Role Phone Kristan SUTTON, Ranjeet Beatty Primary Care Physician Encounter [facility] Date(s): 02/28/22 - 03/30/22 [facility] [address] [place] [address]- Allergies, Adverse Reactions, Alerts Substance Reaction Severity [...] 07/19/08 Given 1Result Comment: [05/28/2017] [facility]: [id number] History: [id number] Note: VIS GIVEN-DATED Admin Note: vis srnhq7Hwtpp Note: VIS nhiut9Ghhlv Note: VIS-[id number] [place] [facility] [id number] History: [facility] [id number] Comment: [10/17/2015] PER NICO AT [id number] Note: VIS [id number] Note: VIS GIVEN Medications 12 inch Grab [...] Maintenance, 05/05/20 14:02:00 EDT, Powder, [facility]/pharmacy #[id number], 2 puffs Inhalation Every 6 hours,PRN:as needed, 160.02, cm, 05/05/20 13:43:00 EDT, Height, 73.6, kg, 04/18/20 10:1... Start Date: 05/05/20 Status: Orderedalendronate 70 mg oral tablet 1 tablet, By Mouth, Every week, # 12 tablet, 1 Refills, [facility] STORE 57834, 160, cm, 01/17/22 14:38:00 EDT, Height, 74.8, kg, 11/01/21 15:05:00 EST, Dry Weight Start Date: 01/30/22 Status: Orderedallopurinol 300 mg oral tablet 1, tablet, By Mouth, Daily, # 90 tablet, Refills 0, Route to Pharmacy Electronically, [facility], 160, cm, 02/21/22 15:11:00 EDT, Height, 74.8, kg, 11/01/21 15:05:00 EST, Dry Weight Start Date: 03/27/22 Status: OrderedBACK BRACE BACK BRACE, See Instructions, # 1 each, Refills 0, Tot. Refills 0, Maintenance, DX BACK PAIN M54.9 DANTE LIFETIME HT 5'3 WT 182 LB, 07/23/16 14:35:27, Compound Start Date: 07/23/16 Status: OrderedBD UF SHORT PEN NEEDLE [id number] BD UF SHORT PEN NEEDLE [id number], See Instructions, # 200 Unknown, 5 Refills, USE TO INJECT INSULIN TWICE A DAY, 160, cm, 11/27/21 14:08:00 EDT, Height, 74.8, kg, 11/01/21 15:05:00 EST, Dry Weight Start Date: 11/30/21 Status: OrderedbuPROPion 300 mg/24 hours (XL) oral tablet, extended release 1 tablet, By Mouth, Daily, # 30 tablet, 5 Refills, [facility], 160, cm, 02/04/22 13:44:00 EDT, Height, 74.8, [...] 1 Refills, Maintenance, 02/21/22 16:12:00 EDT, Tablet, [facility]/pharmacy #[id number], Partial fill upon [...] Refills 1, Route to Pharmacy Electronically, [facility] STORE 54063, 160, cm, 02/21/22 15:11:00 EDT, Height, 74.8, kg, 11/01/21 15:05:00 EST, Dry Weight Start Date: 03/12/22 Status: OrderedLidoderm 5% film 1 patch, Topically, Daily, # 30 patch, 11 Refills, Maintenance, 12/28/21 15:03:00 EDT, [facility]/pharmacy #[id number], Partial fill upon [...] Refills, Maintenance, 03/26/22 10:58:00 EDT, Capsule, [facility]/pharmacy #[id number], 160, cm, 02/21/22 15:11:00 EDT, Height, 74.8, kg,11/01/21 15:05:00 EST, Dry Weight Start Date: 03/26/22 Status: OrderedLyrica 150 mg oral capsule 1 capsule = 150 mg, By Mouth, 2 times a day, DOSAGE INCREASE, # 60 capsule, 3 Refills, Maintenance, 03/26/22 10:58:00 EDT, Capsule, [facility]/pharmacy #[id number], 160, cm, 02/21/22 15:11:00 EDT, Height, 74.8, kg,11/01/21 15:05:00 EST, Dry Weight Start Date: 03/26/22 Status: Orderedmagnesium oxide 400 mg oral tablet 1 tablet, By Mouth, Daily, # 100 tablet, 2 Refills, [facility] STORE 59520, 160, cm, 02/21/22 15:11:00 EDT,Height, 74.8, kg, 11/01/21 15:05:00 EST, Dry Weight Start Date: 03/28/22 Status: OrderedMelatonin 3 mg oral tablet 1 tablet = 3 mg, By Mouth, Daily at bedtime, PRN for insomnia, [facility], # 90 tablet, 3 Refills, Maintenance, 10/17/21 12:02:00 EST, Tablet, [facility]/pharmacy #[id number], 1 tablet By [...] EDT, Injec... Start Date: 06/11/21 Status: OrderedPen [place], 31 G x 5 mm BD Ultra [...] EST, Route to Pharmacy Electronically, [facility]/pharmacy #[id number], 160, cm, 09/14/21 11:51:00 [...] Refills 1, Route to Pharmacy Electronically, [facility] STORE 11672, 160, cm, 11/27/21 14:08:00 EDT, Height, 74.8, kg, 11/01/21 15:05:00 EST, Dry Weight Start Date: 01/11/22 Status: OrderedtraMADol 50 mg oral tablet See Instructions, TAKE 1-2 TABLETS BY MOUTH EVERY 6 HOURS SCHEDULE FOLLOW VISIT, NEEDED FOR PAIN,# 240 tablet, 5 Refills, Maintenance, 01/17/22 11:33:00 EDT, [facility]/pharmacy #0693, 160, cm, 11/27/21 14:08:00 [...] Maintenance, 04/19/21 11:35:00 EDT, Powder, [facility]/pharmacy #0693, Partial fill upon [...] Refills, Soft Stop, 07/26/21 11:05:00 EST, [facility]/pharmacy #0693, 160, cm, 07/26/21 [...] # 9 Unknown, 5 Refills, [facility], 160, cm, 09/07/21 15:03:00 EST, Height, 77.27, [...] myelopathy(Confirmed) OA (osteoarthritis), Active cervical(Confirmed) Osteoporosis(Confirmed) Active *[facility] [phone] 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 50-70% bilaterally.3Patient's crown perforator operator is [facility] and patient sees Dr. Gume Mart Social History Social History Type Response Smoking Status Former smoker, quit more mark n 30 days ago entered on: 09/28/21 Sex
--- OUTSIDE RECORDS SUMMARY | 2022-06-09 08:51 | XMS_ITS | Continuity of Care Document ---
:1950 Author Organization [facility] Address [address] [place] [phone]- Care Team Providers Name Role Phone Ranjeet Rushing MD Primary Care Physician [facility] Date[facility]s): 05/[facility]/20 - 06/28/20 [facility] [address] [place] [phone]- [facility] Attending Physician: Evans Brock Admitting Physician: Evans Brock Referring Physician: Admjaison, Evans Referring Physician: Maryann Escudero Allergies, Adverse Reactions, [...] (PPV23) (oldterm)11 07/19/08 Given 1Result Comment: [05/28/2017] [facility]: [id number] History: [id number] Note: VIS GIVEN-DATED Admin Note: vis [id number] Note: VIS [id number] Note: VIS-[id number] History: [facility] [id number] History: [facility] [id number] Comment: [10/17/2015] PER NICO AT [id number] Note: VIS [id number] Note: VIS GIVEN Medications albuterol 90 mcg/inh inhalation powder 2 puffs, Inhalation, Every 6 hours, PRN as needed, # 1 each, 11 Refills, Maintenance, 05/05/20 14:02:00 EDT, Powder, [facility]/pharmacy #[id number], 2 puffs Inhalation Every 6 hours,PRN:as needed, 160.02, cm, 05/05/20 13:43:00 EDT, Height, 73.6, kg, 04/18/20 10:1... Start Date: 05/05/20 Status: Orderedalendronate 70 mg oral tablet 1 tablet, By Mouth, Every week, # 12 tablet, 0 Refills, Maintenance, 06/01/20 9:05:00 EDT, [facility]/pharmacy #0693, 160.02, cm, 05/09/20 12:34:00 EDT, Height, 73.6, kg, 04/18/20 10:19:00 EDT, Dry Weight Start Date: 06/01/20 Status: Orderedallopurinol 300 mg oral tablet 1, tablet, By Mouth, Daily, # 90 tablet, Refills 0, Tot. Refills 0, Maintenance, 04/05/20 9:38:00 EDT, Route to Pharmacy Electronically, [facility]/pharmacy #[id number], 160.02, cm, 03/29/20 10:57:00 EDT, [...] Refills, Maintenance, 06/01/20 12:01:00 EDT, Capsule, [facility]/pharmacy #0693, 160.02, cm, 06/01/20 11:03:00 EDT, [...] 1 CAPSULE BY MOUTH EVERY DAY, [facility]/pharmacy #[id number] Start Date: 04/20/19 Status: Orderedcyanocobalamin 500 mcg oral tablet 1 tablet = 500 mcg, By Mouth, Daily, # 90 tablet, 0 Refills, Maintenance, 02/11/20 13:33:00 EDT, Tablet, [facility]/pharmacy #0693, 160.02, cm, 02/11/20 13:03:00 EDT, [...] 11:50:00 EDT, Route to Pharmacy Electronically, [facility]/pharmacy #[id number], 160.02, cm, 03/29/20 10:57:00 EDT,Height, 81.6, kg, 07/27/19 14:52:00 EST, Dry Weight Start Date: 04/07/20 Status: Orderedgabapentin 300 mg oral capsule 300 mg, 1, capsule, By Mouth, 3 times a day, # 90 capsule, Refills 5, Tot. Refills 5, Maintenance, 04/13/20 12:42:00 EDT, Route to Pharmacy Electronically, [facility]/pharmacy #0693, 160.02, cm, 03/29/20 10:57:00 EDT, [...] Refills, Maintenance, 05/12/20 14:54:00 EDT, Capsule, [facility]/pharmacy #0693, 160.02, cm, 05/09/20 12:34:00 EDT, Height, 73.6, kg, 04/18/20 10:19:00 EDT, Dry Weight Start Date: 05/12/20 Status: Orderedmagnesium oxide 400 mg oral tablet 1 tablet = 400 mg, By Mouth, Daily, PER RAJNI CARDONA, # 90 tablet, 0 Refills, Maintenance, 06/28/20 12:11:00 EST, [facility]/pharmacy #0693, 160.02, cm, 06/01/20 11:03:00 EDT, Height, 73.6, kg, 04/18/20 10:19:00 EDT, Dry Weight Start Date: 06/28/20 Status: OrderedMelatonin 3 mg oral tablet 1 tablet = 3 mg, By Mouth, Daily at bedtime, PRN for insomnia, [facility], # 90 tablet, 3 Refills, Maintenance, 04/24/20 9:53:00 EDT, Tablet, [facility]/pharmacy #[id number], 1 tablet By Mouth Daily [...] 5 Refills, Maintenance, 02/21/20 11:53:00 EDT, [facility]/pharmacy #[id number], 301-350: 12 units, 351-400: 14 units, 401-450: 1... Start Date: 02/21/20 Status: OrderedoxyCODONE 5 mg oral capsule 1 capsule = 5 mg, By Mouth, Every 6 hours, PRN as needed for pain, 0 Refills, Maintenance, 06/01/20 11:12:00 EDT, Capsule, Partial fill upon patient request Start Date: 06/01/20 Status: OrderedPen [place], 31 G x 5 mm BD Ultra [...] 9:31:00 EST, Route to Pharmacy Electronically, [facility]/pharmacy #[id number], 160.02, cm, 06/01/20 11:03:00 EDT, Height, 73.6, kg, 04/18/20 10:19:00 EDT,... Start Date: 06/28/20 Status: Orderedspironolactone 100 mg oral tablet 1, tablet, By Mouth, Daily, # 30 tablet, Refills 2, Tot. Refills 2, Maintenance, 05/16/20 16:31:00 EDT, Route to Pharmacy Electronically, [facility]/pharmacy #[id number], 160.02, cm, 05/09/20 12:34:00 EDT, Height, 73.6, kg, 04/18/20 10:19:00 EDT, Dry Weight Start Date: 05/16/20 Status: OrderedtraMADol 50 mg oral tablet See Instructions, PRN Pain , Severe, 1-2 tablets by mouth every 6 hours Schedule follow visit, # 240tablet, 1 Refills, Soft Stop, 05/19/20 16:27:00 EDT, [facility]/pharmacy #[id number], 160.02, cm, 05/09/20 12:34:00 EDT, [...] Refills, Soft Stop, 12/16/19 15:45:00 EDT, [facility]/pharmacy #[id number], 160.02, cm, 11/02/19 15:34:00 EDT, Height, 81.6, kg, 07/27/19 14:52:00 EST, Dry Weight Start Date: 12/16/19 Status: OrderedVictoza 18 mg/3 mL subcutaneous solution See Instructions, INJECT 1.8 MG UNDER THE SKIN ONCE DAILY, # 9 Unknown, 5 Refills, 06/20/20 15:08:00EDT, [facility]/pharmacy #[id number], 160.02, cm, 06/01/20 11:03:00 EDT, Height, 73.6, kg, 04/18/20 10:19:00 EDT,Dry Weight Start Date: 06/20/20 Status: OrderedVitamin D3 1000 intl units oral capsule 1 capsule = 1,000 International_Units, By Mouth, Daily, # 90 capsule, 3 Refills, Maintenance, 10/20/19 9:16:00 EST, Capsule, [facility]/pharmacy #[id number], resent from 08/14, 160.02, cm, 09/29/19 14:57:00 EST, Height, 81.6, kg, 07/27/19 14:52:00 EST, Dry Weight Start Date: 10/20/19 Status: OrderedWellbutrin XL 150 mg/24 hours oral tablet, extended release 1 tablet = 150 mg, By Mouth, Every 24 hours, do not crush or chew, # 30 tablet, 5 Refills, Maintenance, 06/28/20 9:33:00 EST, ER Tablet, [facility]/pharmacy #[id number], 160.02, cm, 06/01/20 11:03:00 EDT, [...] cervical(Confirmed) Osteoporosis(Confirmed) Active *[facility] [phone] 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 50-70% bilaterally.3Patient's stitch separator is [facility] and patient sees Dr. Gume Mart Social History Social History Type Response Smoking Status Current some day smoker; Typ e: Cigarettes; Other: less than 1/2 pack a day; Tobacco use times per day: 1/2 pack a day; entered on: 02/19/17 Sex
--- OUTSIDE RECORDS SUMMARY | 2022-06-09 08:51 | XMS_ITS | Continuity of Care Document ---
:1950 Author Organization [facility] Address [address] [place] [address]- Care Team Providers Name Role Phone Ranjeet Rushing MD Primary Care Physician Encounter [facility] Date(s): 10/05/20 - 10/05/[address] [address]- Encounter Diagnosis Headache (Final) - 10/05/20 Discharge Disposition: A-D/C Home Attending Physician: Tom Hutson MD Admitting Physician: Tom Hutson MD Referring Physician: Not on Staff, Referring MD [...] 07/19/08 Given 1Result Comment: [05/28/2017] [facility]: [id number] History: [id number] Note: VIS GIVEN-DATED Admin Note: vis [id number] Note: VIS [id number] Note: VIS-[id number] History[place] [facility] [id number] History: [facility] [id number] Comment: [10/17/2015] PER NICO AT [id number] Note: VIS [id number] Note: VIS GIVEN Medications 12 inch Grab [...] Maintenance, 05/05/20 14:02:00 EDT, Powder, [facility]/pharmacy #[id number], 2 puffs Inhalation Every 6 hours,PRN:as needed, 160.02, cm, 05/05/20 13:43:00 EDT, Height, 73.6, kg, 04/18/20 10:1... Start Date: 05/05/20 Status: Orderedallopurinol 300 mg oral tablet 300 mg, 1, tablet, By Mouth, Daily, # 90 tablet, Refills 0, Tot. Refills 0, Maintenance, 07/06/20 15:50:00 EST, Route to Pharmacy Electronically, [facility]/pharmacy #[id number], 160.02, cm, 07/03/20 14:54:00 EST, Height, [...] Refills, Maintenance, 09/28/20 11:53:00 EST, Tablet, [facility]/pharmacy #[id number], 160, cm, 09/12/20 14:03:00 [...] 15:48:00 EST, Route to Pharmacy Electronically, [facility]/pharmacy #[id number], 160.02, cm, 07/03/20 14:54:00 [...] Refills, Maintenance, 07/04/20 11:46:00 EST, Capsule, [facility]/pharmacy #[id number], 160.02, cm, 07/03/20 14:54:00 EST, Height, 73.6, kg, 04/18/20 10:19:00 EDT, Dry Weight Start Date: 07/04/20 Status: Orderedmagnesium oxide 400 mg (240 mg elemental magnesium) oral tablet 1 tablet, By Mouth, Daily, # 90 tablet, 0 Refills, Acute, 09/20/20 12:20:00 EST, [id number], 90, TAKE 1 TABLET BY MOUTH DAILY, 160, cm, 09/12/20 14:03:00 EST, Height, 71.3, kg, 08/08/20 7:00:00 EST, Dry Weight Start Date: 09/20/20 Status: OrderedMelatonin 3 mg oral tablet 1 tablet = 3 mg, By Mouth, Daily at bedtime, PRN for insomnia, [facility], # 90 tablet, 3 Refills, Maintenance, 04/24/20 9:53:00 EDT, Tablet, [facility]/pharmacy #[id number], 1 tablet By Mouth [...] patient request Start Date: 08/30/20 Status: OrderedPen [place], 31 G x 5 mm BD Ultra [...] EST, Route to Pharmacy Electronically, [facility]/pharmacy #[id number], 160.02, cm, 06/01/20 11:03:00 EDT, Height, 73.6, [...] Unknown, 5 Refills, 06/20/20 15:08:00EDT, [facility]/pharmacy #[id number], 160.02, cm, 06/01/20 11:03:00 EDT, Height, 73.6, kg, 04/18/20 10:19:00 EDT,Dry Weight Start Date: 06/20/20 Status: OrderedVitamin D3 1000 intl units oral capsule 1 capsule = 1,000 International_Units, By Mouth, Daily, # 90 capsule, 1 Refills, Maintenance, 09/25/20 7:44:00 EST, Capsule, [facility]/pharmacy #[id number], resent from 08/14, 160, cm, 09/12/20 14:03:00 EST, Height, 71.3, kg, 08/08/20 7:00:00 EST, Dry Weight Start Date: 09/25/20 Status: OrderedWellbutrin XL 300 mg/24 hours oral tablet, extended release 1 tablet = 300 mg, By Mouth, Daily, DOSAGE INCREASE, # 30 tablet, 5 Refills, Maintenance, 07/03/20 15:20:00 EST, ER Tablet, [facility]/pharmacy #[id number], 160.02, cm, 07/03/20 14:54:00 EST, Height, [...] cervical(Confirmed) Osteoporosis(Confirmed) Active *[facility] [phone] 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 Gume Mart Vital Signs Most recent to oldest 1 2 3 [Reference Range]: Height 160 cm 160 cm 160 cm (10/05/20 2:31 PM) (10/05/20 10:45 AM) (10/05/20 10 :02 AM) Weight 77.5 kg 77.5 kg 77.5 kg (10/05/20 2:31 PM) (10/05/20 10:45 AM) (10/05/20 10 :02 AM) Oxygen Saturation [94-100 95 % 97 % 98 % %] (10/05/20 6:05 PM) (10/05/20 2:31 PM) (10/05/20 10: 02 AM) Pulse Rate [55-90 bpm] 90 bpm 85 bpm 90 bpm (10/05/20 6:05 PM) (10/05/20 2:31 PM) (10/05/20 10: 02 AM) Body Mass Index 30.27 30.27 [18.5-24.99] *>HHI* *>HHI* (10/05/20 2:31 PM) (10/05/20 10:02 AM) Blood Pressure 138/91 mm Hg 125/60 mm Hg 127/66 mm Hg [90-138/55-84 mm Hg] (10/05/20 6:05 PM) (10/05/20 2:31 PM) ( 1 10:02 AM) Respiratory Rate [16-30 18 br/min 18 br/min 18 br/mi n br/min] (10/05/20 6:05 PM) (10/05/20 2:31 PM) (10/05/20 10: 02 AM) Temperature [96.8-100.4 98.9 DegF 97.7 DegF DegF] (10/05/20 2:31 PM) (10/05/20 10:02 AM) Liters per Minute 0 L/min (10/05/20 2:31 PM) Mode of Delivery (Oxygen) Room air Room air Room a ir (10/05/20 6:05 PM) (10/05/20 2:31 PM) (10/05/20 10: 02 AM) Blood pressure sites Arm, left Arm, left Arm, right (10/05/20 6:05 PM) (10/05/20 2:31 PM) (10/05/20 10: 02 AM) Temperature Route Oral Oral (10/05/20 2:31 PM) (10/05/20 10:02 AM) Dry Weight 77.5 kg 77.5 kg 77.5 kg (10/05/20 2:31 PM) (10/05/20 10:45 AM) (10/05/20 10 :02 AM) Weight Obtained Via Patient/family stated (10/05/20 10:02 AM) Dry Weight Obtained Via Standing scale (10/05/20 10:02 AM) Social History Social History Type Response Tobacco Other: last cigarette 0. Sex
--- OUTSIDE RECORDS SUMMARY | 2022-06-09 08:51 | XMS_ITS | Continuity of Care Document ---
:1950 Author Organization [facility] Address [address] [place] [address]- Care Team Providers Name Role Phone Ranjeet Rushing MD Primary Care Physician [facility]counter [facility] Date[facility]s): 05/26/20 - 06/25/20 [facility] [address] [place] [id number]- [facility] Allergies, Adverse Reactions, Alerts Substance Reaction [...] (PPV23) (oldterm)11 07/19/08 Given 1Result Comment: [05/28/2017] [facility]: [id number] History: [id number] Note: VIS GIVEN-DATED Admin Note: vis [id number] Note: VIS [id number] Note: VIS-[id number] History: [facility] [id number] History: [facility] DEANGELO Gray Comment: [10/17/2015] PER NICO AT [id number] Note: VIS [id number] Note: VIS GIVEN Medications albuterol 90 mcg/inh inhalation powder 2 puffs, Inhalation, Every 6 hours, PRN as needed, # 1 each, 11 Refills, Maintenance, 05/05/20 14:02:00 EDT, Powder, [facility]/pharmacy #[id number], 2 puffs Inhalation Every 6 hours,PRN:as needed, 160.02, cm, 05/05/20 13:43:00 EDT, Height, 73.6, kg, 04/18/20 10:1... Start Date: 05/05/20 Status: Orderedalendronate 70 mg oral tablet 1 tablet, By Mouth, Every week, # 12 tablet, 0 Refills, Maintenance, 06/01/20 9:05:00 EDT, [facility]/pharmacy #[id number], 160.02, cm, 05/09/20 12:34:00 EDT, Height, 73.6, kg, 04/18/20 10:19:00 EDT, Dry Weight Start Date: 06/01/20 Status: Orderedallopurinol 300 mg oral tablet 1, tablet, By Mouth, Daily, # 90 tablet, Refills 0, Tot. Refills 0, Maintenance, 04/05/20 9:38:00 EDT, Route to Pharmacy Electronically, [facility]/pharmacy #[id number], 160.02, cm, 03/29/20 10:57:00 EDT, [...] 0 Refills, Maintenance, 06/01/20 12:01:00 EDT, Capsule, [facility]/pharmacy #[id number], 160.02, cm, 06/01/20 11:03:00 [...] TAKE 1 CAPSULE BY MOUTH EVERY DAY, [facility]/pharmacy #[id number] Start Date: 04/20/19 Status: Orderedcyanocobalamin 500 mcg oral tablet 1 tablet = 500 mcg, By Mouth, Daily, # 90 tablet, 0 Refills, Maintenance, 02/11/20 13:33:00 EDT, Tablet, [facility]/pharmacy #[id number], 160.02, cm, 02/11/20 13:03:00 [...] 04/07/20 11:50:00 EDT, Route to Pharmacy Electronically, [facility]/pharmacy #[id number], 160.02, cm, 03/29/20 10:57:00 EDT,Height, 81.6, kg, 07/27/19 14:52:00 EST, Dry Weight Start Date: 04/07/20 Status: Orderedgabapentin 300 mg oral capsule 300 mg, 1, capsule, By Mouth, 3 times a day, # 90 capsule, Refills 5, Tot. Refills 5, Maintenance, 04/13/20 12:42:00 EDT, Route to Pharmacy Electronically, [facility]/pharmacy #[id number], 160.02, cm, 03/29/20 10:57:00 EDT, [...] 1 Refills, Maintenance, 05/12/20 14:54:00 EDT, Capsule, [facility]/pharmacy #[id number], 160.02, cm, 05/09/20 12:34:00 EDT, [...] 3 Refills, Maintenance, 04/24/20 9:53:00 EDT, Tablet, [facility]/pharmacy #[id number], 1 tablet By Mouth [...] each, 5 Refills, Maintenance, 02/21/20 11:53:00 EDT, [facility]/pharmacy #[id number], 301-350: 12 units, 351-400: 14 units, 401-450: 1... Start Date: 02/21/20 Status: OrderedoxyCODONE 5 mg oral capsule 1 capsule = 5 mg, By Mouth, Every 6 hours, PRN as needed for pain, 0 Refills, Maintenance, 06/01/20 11:12:00 EDT, Capsule, Partial fill upon patient request Start Date: 06/01/20 Status: OrderedPen [place], 31 G x 5 mm BD Ultra [...] 07/20/19 16:14:12 EST, Route to Pharmacy Electronically, [id number], [facility]/pharmacy #[id number] Start Date: 07/20/19 Status: Orderedspironolactone 100 mg oral tablet 1, tablet, By Mouth, Daily, # 30 tablet, Refills 2, Tot. 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 Gume Mart Social History Social History Type Response Smoking Status Current some day smoker; Typ e: Cigarettes; Other: less than 1/2 pack a day; Tobacco use times per day: 1/2 pack a day; entered on: 02/19/17 Sex
--- OUTSIDE RECORDS SUMMARY | 2022-06-09 08:51 | XMS_ITS | Continuity of Care Document ---
:1950 Author Organization [facility] Address [address] [place] [address]- Care Team Providers Name Role Phone Kristan SUTTON, Ranjeet Beatty Primary Care Physician [place] [facility] [place]s): 04/23/21 - 05/23/21 [facility] [address] [place] [address]- Allergies, Adverse Reactions, Alerts Substance Reaction Severity [...] (oldterm)11 07/19/08 Given 1Result Comment: [05/28/2017] [facility]: [id number] History: [id number] Note: VIS GIVEN-DATED Admin Note: vis [id number] Note: VIS [id number] Note: VIS-[id number] History: [facility] [id number] History: [facility] [id number] Comment: [10/17/2015] PER NICO AT [id number] Note: VIS [id number] Note: VIS GIVEN Medications 12 inch Grab [...] 11 Refills, Maintenance, 05/05/20 14:02:00 EDT, Powder, [facility]/pharmacy #[id number], 2 puffs Inhalation Every 6 hours,PRN:as needed, 160.02, cm, 05/05/20 13:43:00 EDT, Height, 73.6, kg, 04/18/20 10:1... Start Date: 05/05/20 Status: Orderedalendronate 70 mg oral tablet 1 tablet, By Mouth, Every week, # 12 tablet, 6 Refills, Maintenance, 01/09/21 16:07:00 EDT, [facility], 160, cm, 12/25/20 14:20:00 EDT, Height, 77.5, kg, 10/05/20 14:31:00 EST, Dry Weight Start Date: 01/09/21 Status: Orderedallopurinol 300 mg oral tablet 300 mg, 1, tablet, By Mouth, Daily, # 90 tablet, Refills 1, Tot. Refills 1, Maintenance, 01/26/21 12:31:00 EDT, Route to Pharmacy Electronically, [facility]/pharmacy #[id number], 160, cm, 12/25/20 14:20:00 EDT, [...] Refills, Maintenance, 03/12/21 10:51:00 EDT, [id number], 160, cm, 02/27/21 13:50:00 EDT, Height, 79.6, [...] 02/06/21 9:05:00 EDT, Route to Pharmacy Electronically, [facility]/pharmacy #[id number], 160, cm, 01/25/21 14:11:00 EDT, Height, 77.5, kg, 10/05/20 14:31:00 EST, Dry Weight Start Date: 02/06/21 Stop Date: 08/05/21 Status: OrderedHumira 40 mg subcutaneous solution See Instructions, 40 mg [id number], 0 Refills, Maintenance, 10/23/20 13:46:00 EST, Partial fill upon patient request if the prescription is for a schedule II opioid drug. Start Date: 10/23/20 Status: OrderedLyrica 150 mg oral capsule 1 capsule = 150 mg, By Mouth, 2 times a day, DOSAGE INCREASE, # 60 capsule, 3 Refills, Maintenance, 01/23/21 14:56:00 EDT, Capsule, [facility]/pharmacy #[id number], 160, cm, 01/14/21 11:46:00 EDT, Height, 77.5, kg,10/05/20 14:31:00 EST, Dry Weight Start Date: 01/23/21 Status: Orderedmagnesium oxide 400 mg (240 mg elemental magnesium) oral tablet 1 tablet, By Mouth, Daily, # 90 tablet, 0 Refills, Acute, 09/20/20 12:20:00 EST, [facility], 90, TAKE 1 TABLET BY MOUTH DAILY, 160, cm, 09/12/20 14:03:00 EST, Height, 71.3, kg, 08/08/20 7:00:00 EST, Dry Weight Start Date: 09/20/20 Status: OrderedMelatonin 3 mg oral tablet 1 tablet = 3 mg, By Mouth, Daily at bedtime, PRN for insomnia, [facility], # 90 tablet, 3 Refills, Maintenance, 04/24/20 9:53:00 EDT, Tablet, [facility]/pharmacy #[id number], 1 tablet By Mouth Daily [...] if th... Start Date: 08/30/20 Status: OrderedPen [place], 31 G x 5 mm BD Ultra [...] 01/09/21 15:06:00 EDT, Route to Pharmacy Electronically, [facility]/pharmacy #[id number], 160, cm, 12/25/20 14:20:00 EDT, Height, 77.5, kg, 10/05/20 14:31:00 EST, Dr... Start Date: 01/09/21 Status: Orderedspironolactone 100 mg oral tablet 100 mg, 1, tablet, By Mouth, Daily, # 90 tablet, Refills 0, Tot. 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 Gume Mart Social History Social History Type Response Tobacco Other: last cigarette 0. Sex
--- OUTSIDE RECORDS SUMMARY | 2022-06-09 08:51 | XMS_ITS | Continuity of Care Document ---
:1950 Author Organization [facility] Adult Address [address] [place] [address]- Care Team Providers Name Role Phone Ranjeet Rushing MD Primary Care Physician [facility]counter [facility] Date(s): 06/11/21 - 07/11/21 [facility] [address] [place] [address]- Allergies, Adverse Reactions, Alerts Substance Reaction Severity [...] (PPV23) (oldterm)11 07/19/08 Given 1Result Comment: [05/28/2017] [facility]: [id number] History: [id number] Note: VIS GIVEN-DATED Admin Note: vis [id number] Note: VIS [id number] Note: VIS-[id number] History: [facility] [id number] History: [facility] [id number] Comment: [10/17/2015] PER NICO AT [id number] Note: VIS [id number] Note: VIS GIVEN Medications 12 inch Grab [...] Refills, Maintenance, 05/05/20 14:02:00 EDT, Powder, [facility]/pharmacy #[id number], 2 puffs Inhalation Every 6 hours,PRN:as needed, 160.02, cm, 05/05/20 13:43:00 EDT, Height, 73.6, kg, 04/18/20 10:1... Start Date: 05/05/20 Status: Orderedalendronate 70 mg oral tablet 1 tablet, By Mouth, Every week, # 12 tablet, 6 Refills, Maintenance, 01/09/21 16:07:00 EDT, [facility] STORE 21270, 160, cm, 12/25/20 14:20:00 EDT, Height, 77.5, kg, 10/05/20 14:31:00 EST, Dry Weight Start Date: 01/09/21 Status: Orderedallopurinol 300 mg oral tablet 1, tablet, By Mouth, Daily, # 90 tablet, Refills 1, Route to Pharmacy Electronically, [facility] STORE 78565, 160, cm, 06/19/21 13:57:00 EDT, Height, 77.27, [...] tablet, 5 Refills, Maintenance, 03/12/21 10:51:00 EDT, [facility] STORE 67695, 160, cm, 02/27/21 13:50:00 EDT, Height, 79.6, [...] 1 Refills, Maintenance, 02/08/21 9:52:00 EDT, Tablet, [facility]/pharmacy #[id number], 160, cm, 01/25/21 14:11:00 [...] 02/06/21 9:05:00 EDT, Route to Pharmacy Electronically, [facility]/pharmacy #[id number], 160, cm, 01/25/21 14:11:00 EDT, Height, 77.5, kg, 10/05/20 14:31:00 EST, Dry Weight Start Date: 02/06/21 Stop Date: 08/05/21 Status: OrderedHumira 40 mg subcutaneous solution See Instructions, 40 mg [id number], 0 Refills, Maintenance, 10/23/20 13:46:00 EST, Partial fill upon patient request if the prescription is for a schedule II opioid drug. Start Date: 10/23/20 Status: OrderedLyrica 150 mg oral capsule 1 capsule = 150 mg, By Mouth, 2 times a day, DOSAGE INCREASE, # 60 capsule, 3 Refills, Maintenance, 07/09/21 14:12:00 EST, Capsule, [facility]/pharmacy #[id number], 160, cm, 06/19/21 13:57:00 EDT, Height, 77.27, kg, 03/24/21 20:58:00 EDT, Dry Weight Start Date: 07/09/21 Status: Orderedmagnesium oxide 400 mg (240 mg elemental magnesium) oral tablet 1 tablet, By Mouth, Daily, # 90 tablet, 0 Refills, Acute, 09/20/20 12:20:00 EST, [facility] STORE 17038, 90, TAKE 1 TABLET BY MOUTH DAILY, 160, cm, 09/12/20 14:03:00 EST, Height, 71.3, kg, 08/08/20 7:00:00 EST, Dry Weight Start Date: 09/20/20 Status: Orderedmagnesium oxide 400 mg oral tablet 1 tablet = 400 mg, By Mouth, Daily, # 100 tablet, 2 Refills, Maintenance, 06/05/21 11:32:00 EDT, Tablet, [facility]/pharmacy #[id number], Partial fill upon patient request if the prescription is for a schedule II opioid drug., 160, cm, 05/21/21 11:03:00 EDT, Heigh... Start Date: 06/05/21 Status: OrderedMelatonin 3 mg oral tablet 1 tablet = 3 mg, By Mouth, Daily at bedtime, PRN for insomnia, [facility], # 90 tablet, 3 Refills, Maintenance, 04/24/20 9:53:00 EDT, Tablet, [facility]/pharmacy #[id number], 1 tablet By Mouth [...] EDT, Injec... Start Date: 06/11/21 Status: OrderedPen [place], 31 G x 5 mm BD Ultra [...] 01/09/21 15:06:00 EDT, Route to Pharmacy Electronically, [facility]/pharmacy #[id number], 160, cm, 12/25/20 14:20:00 EDT, Height, 77.5, kg, 10/05/20 14:31:00 EST, Start Date: 01/09/21 Status: Orderedspironolactone 100 mg oral tablet 100 mg, 1, tablet, By Mouth, Daily, # 90 tablet, Refills 0, Tot. Refills 0, Maintenance, 01/23/21 14:56:00 EDT, [id number], Partial fill upon patient request if the prescription is for a schedule II opioid thomas... Start Date: 01/23/21 Stop Date: 04/23/21 Status: OrderedtraMADol 50 mg oral tablet See Instructions, TAKE 1-2 TABLETS BY MOUTH EVERY 6 HOURS SCHEDULE FOLLOW VISIT, NEEDED FOR PAIN,# 240 tablet, 5 Refills, Maintenance, 05/31/21 9:52:00 EDT, [facility]/pharmacy #[id number], 160, cm, 05/21/21 11:03:00 [...] Refills, Maintenance, 04/19/21 11:35:00 EDT, Powder, [facility]/pharmacy #[id number], Partial fill upon patient [...] # 9 Unknown, 2 Refills, [id number], 160, cm, 06/19/21 13:57:00 EDT, Height, 77.27, [...] Active cervical(Confirmed) Osteoporosis(Confirmed) Active *[facility] [phone] 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 and patient sees Dr. Gume Mart Social History Social History Type Response Tobacco Other: last cigarette 0. Sex
--- OUTSIDE RECORDS SUMMARY | 2022-06-09 08:51 | XMS_ITS | Continuity of Care Document ---
:1950 Author Organization [facility] Adult Address [address] [place] [address]- Care Team Providers Name Role Phone Ranjeet Rushing MD Primary Care Physician Encounter [facility] Date(s): 05/18/20 - 06/17/20 [facility] [address] [place] [address]- [facility] Allergies, Adverse Reactions, Alerts Substance Reaction [...] Comment: [05/28/2017] [facility]: [id number] History: [id number] Note: VIS GIVEN-DATED Admin Note: vis [id number] Note: VIS [id number] Note: VIS-[id number] History: [facility] [id number] History: [facility] Gray Comment: [10/17/2015] PER NICO AT [id number] Note: VIS [id number] Note: VIS GIVEN Medications albuterol 90 mcg/inh [...] Refills, Maintenance, 06/01/20 9:05:00 EDT, [facility]/pharmacy #[id number], 160.02, cm, 05/09/20 12:34:00 EDT, Height, 73.6, kg, 04/18/20 10:19:00 EDT, Dry Weight Start Date: 06/01/20 Status: Orderedallopurinol 300 mg oral tablet 1, tablet, By Mouth, Daily, # 90 tablet, Refills 0, Tot. Refills 0, Maintenance, 04/05/20 9:38:00 EDT, [id number] 160.02, cm, 03/29/20 10:57:00 EDT, Height, [...] 0 Refills, Maintenance, 06/01/20 12:01:00 EDT, Capsule, [facility]/pharmacy #[id number], 160.02, cm, 06/01/20 11:03:00 EDT, [...] TAKE 1 CAPSULE BY MOUTH EVERY DAY, [facility]/pharmacy #[id number] Start Date: 04/20/19 Status: Orderedcyanocobalamin 500 mcg oral tablet 1 tablet = 500 mcg, By Mouth, Daily, # 90 tablet, 0 Refills, Maintenance, 02/11/20 13:33:00 EDT, Tablet, [facility]/pharmacy #0693, 160.02, cm, 02/11/20 13:03:00 EDT, [...] 04/07/20 11:50:00 EDT, Route to Pharmacy Electronically, [facility]/pharmacy #[id number], 160.02, cm, 03/29/20 10:57:00 EDT,Height, 81.6, kg, 07/27/19 14:52:00 EST, Dry Weight Start Date: 04/07/20 Status: Orderedgabapentin 300 mg oral capsule 300 mg, 1, capsule, By Mouth, 3 times a day, # 90 capsule, Refills 5, Tot. Refills 5, Maintenance, 04/13/20 12:42:00 EDT, Route to Pharmacy Electronically, [facility]/pharmacy #[id number], 160.02, cm, 03/29/20 10:57:00 EDT, [...] 1 Refills, Maintenance, 05/12/20 14:54:00 EDT, Capsule, [facility]/pharmacy #0693, 160.02, cm, 05/09/20 12:34:00 EDT, [...] each, 5 Refills, Maintenance, 02/21/20 11:53:00 EDT, [facility]/pharmacy #[id number], 301-350: 12 units, 351-400: 14 units, 401-450: 1... Start Date: 02/21/20 Status: OrderedoxyCODONE 5 mg oral capsule 1 capsule = 5 mg, By Mouth, Every 6 hours, PRN as needed for pain, 0 Refills, Maintenance, 06/01/20 11:12:00 EDT, Capsule, Partial fill upon patient request Start Date: 06/01/20 Status: OrderedPen [place], 31 G x 5 mm BD Ultra [...] 07/20/19 16:14:12 EST, Route to Pharmacy Electronically, [id number], [facility]/pharmacy #[id number] Start Date: 07/20/19 Status: Orderedspironolactone 100 mg oral tablet 1, tablet, By Mouth, Daily, # 30 tablet, Refills 2, Tot. Refills 2, Maintenance, 05/16/20 16:31:00 EDT, Route to Pharmacy Electronically, [facility]/pharmacy #[id number], 160.02, cm, 05/09/20 12:34:00 EDT, Height, 73.6, kg, 04/18/20 10:19:00 EDT, Dry Weight Start Date: 05/16/20 Status: OrderedtraMADol 50 mg oral tablet See Instructions, PRN Pain , Severe, 1-2 tablets by mouth every 6 hours Schedule follow visit, # 240tablet, 1 Refills, Soft Stop, 05/19/20 16:27:00 EDT, [facility]/pharmacy #[id number], 160.02, cm, 05/09/20 12:34:00 EDT, [...] 5 Refills, Soft Stop, 12/16/19 15:45:00 EDT, [facility]/pharmacy #[id number], 160.02, cm, 11/02/19 15:34:00 EDT, Height, 81.6, kg, 07/27/19 14:52:00 EST, Dry Weight Start Date: 12/16/19 Status: OrderedVictoza 18 mg/3 mL subcutaneous solution See Instructions, INJECT 1.8 MG UNDER THE SKIN ONCE DAILY, # 9 Unknown, 0 Refills, Maintenance, [facility] STORE 26897, 160.02, cm, 05/09/20 12:34:00 EDT, Height, 73.6, kg, 04/18/20 10:19:00 EDT, Dry Weight Start Date: 05/26/20 Status: OrderedVitamin D3 1000 intl units oral capsule 1 capsule = 1,000 International_Units, By Mouth, Daily, # 90 capsule, 3 Refills, Maintenance, 10/20/19 9:16:00 EST, Capsule, [facility]/pharmacy #[id number], resent from 08/14, 160.02, cm, 09/29/19 14:57:00 EST, Height, 81.6, kg, 07/27/19 14:52:00 EST, Dry Weight Start Date: 10/20/19 Status: OrderedWellbutrin XL 150 mg/24 hours oral tablet, extended release 1 tablet = 150 mg, By Mouth, Every 24 hours, do not crush or chew, # 30 tablet, 6 Refills, Maintenance, 12/09/19 16:12:00 EDT, ER Tablet, [facility]/pharmacy #[id number], 160.02, cm, 11/02/19 15:34:00 EDT, [...] Active cervical(Confirmed) Osteoporosis(Confirmed) Active *[facility] [phone] 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 Gume Mart Social History Social History Type Response Smoking Status Current some day smoker; Typ e: Cigarettes; Other: less than 1/2 pack a day; Tobacco use times per day: 1/2 pack a day; entered on: 02/19/17 Sex
--- OUTSIDE RECORDS SUMMARY | 2022-06-09 08:51 | XMS_ITS | Continuity of Care Document ---
:1950 Author Organization [facility] Adult Address [address] [place] [address]- Care Team Providers Name Role Phone Ranjeet Rushing MD Primary Care Physician Encounter [facility] Date(s): 11/02/20 - 12/21/20 [facility] [address] [place] [address]- Attending Physician: Ranjeet Rushing MD Allergies, Adverse [...] (oldterm)11 07/19/08 Given 1Result Comment: [05/28/2017] [facility]: [id number] History: [id number] Note: VIS GIVEN-DATED Admin Note: vis [id number] Note: VIS htwnd2Bertv Note: VIS-[id number] History: [facility] [id number] History: [facility] DE[facility] Gray Comment: [10/17/2015] PER NICO AT [id number] Note: VIS [id number] Note: VIS GIVEN Medications 12 inch Grab Bars 12 inch Grab Bars, See Instructions, # 2 each, Refills 0, Tot. Refills 0, Maintenance, Grab bars : Length 12inches Use as directed DX Unsteady Gait ICD10 R26.81 HT: 5'3 Weight 162lbs Length of need Lifetime, 07/07/20 11:45:00 EST, Supply Start Date: 07/07/20 Status: OrderedADMIT TO [facility] ADMIT TO [facility], See Instructions, # 1 each, Refills 0, Tot. Refills 0, Maintenance, FAX [phone] ADMIT TO HALFWAY, PT, OT. 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 Refills 0, Maintenance, 10/28/20 12:31:00 EST, Route to Pharmacy Electronically, [facility]/pharmacy #[id number], 160, cm, 10/20/20 15:01:00 EST, Height, [...] 1 Refills, Maintenance, 09/28/20 11:53:00 EST, Tablet, [facility]/pharmacy #0693, 160, cm, 09/12/20 14:03:00 [...] 07/06/20 15:48:00 EST, Route to Pharmacy Electronically, [facility]/pharmacy #0693, 160.02, cm, 07/03/20 14:54:00 EST,Height, 73.6, kg, 04/18/20 10:19:00 EDT, Dry Weight Start Date: 07/06/20 Stop Date: 10/04/20 Status: OrderedHumira 40 mg subcutaneous solution See Instructions, 40 mg [id number], 0 Refills, Maintenance, 10/23/20 13:46:00 EST, Partial fill upon patient request if the prescription is for a schedule II opioid drug. Start Date: 10/23/20 Status: OrderedLyrica 150 mg oral capsule 1 capsule = 150 mg, By Mouth, 2 times a day, DOSAGE INCREASE, # 60 capsule, 3 Refills, Maintenance, 07/04/20 11:46:00 EST, Capsule, [facility]/pharmacy #0693, 160.02, cm, 07/03/20 14:54:00 EST, Height, 73.6, kg, 04/18/20 10:19:00 EDT, Dry Weight Start Date: 07/04/20 Status: Orderedmagnesium oxide 400 mg (240 mg elemental magnesium) oral tablet 1 tablet, By Mouth, Daily, # 90 tablet, 0 Refills, Acute, 09/20/20 12:20:00 EST, [facility] STORE 98111, 90, TAKE 1 TABLET BY MOUTH DAILY, 160, cm, 09/12/20 14:03:00 EST, Height, 71.3, kg, 08/08/20 7:00:00 EST, Dry Weight Start Date: 09/20/20 Status: OrderedMelatonin 3 mg oral tablet 1 tablet = 3 mg, By Mouth, Daily at bedtime, PRN for insomnia, [facility], # 90 tablet, 3 Refills, Maintenance, 04/24/20 9:53:00 EDT, Tablet, [facility]/pharmacy #0693, 1 tablet By Mouth Daily at bedtime,PRN:for insomnia,Instr:[employer] brand, 160.02, cm, 04/18/20... Start Date: 04/24/20 [...] if th... Start Date: 08/30/20 Status: OrderedPen [place], 31 G x 5 mm BD [...] 06/28/20 9:31:00 EST, Route to Pharmacy Electronically, [facility]/pharmacy #[id number], 160.02, cm, 06/01/20 11:03:00 EDT, Height, 73.6, kg, 04/18/20 10:19:00 EDT,... Start Date: 06/28/20 Status: Orderedspironolactone 100 mg oral tablet 100 mg, 1, tablet, By Mouth, Daily, # 90 tablet, Refills 0, Tot. Refills 0, Maintenance, 11/29/20 7:42:00 EDT, Route to Pharmacy Electronically, [facility]/pharmacy #[id number], Partial fill upon patient request ifthe [...] # 9 Unknown, 5 Refills, 06/20/20 15:08:00EDT, [facility]/pharmacy #0693, 160.02, cm, 06/01/20 11:03:00 EDT, Height, 73.6, kg, 04/18/20 10:19:00 EDT,Dry Weight Start Date: 06/20/20 Status: OrderedVitamin D3 1000 intl units oral capsule 1 capsule = 1,000 International_Units, By Mouth, Daily, # 90 capsule, 1 Refills, Maintenance, 09/25/20 7:44:00 EST, Capsule, [id number], resent from 08/14, 160, cm, 09/12/20 14:03:00 EST, Height, 71.3, kg, 12/15/20 7:00:00 EST, Dry Weight Start Date: 09/25/20 Status: OrderedWellbutrin XL 300 mg/24 hours oral tablet, extended release 1 tablet = 300 mg, By Mouth, Daily, DOSAGE INCREASE, # 30 tablet, 5 Refills, Maintenance, 07/03/20 15:20:00 EST, ER Tablet, [facility]/pharmacy #0693, 160.02, cm, 07/03/20 14:54:00 EST, Height, 73.6, kg, 04/18/20 10:19:00 EDT, Dry Weight Start Date: 07/03/20 Status: OrderedZoloft 50 mg oral tablet 1 tablet = 50 mg, By Mouth, Daily, DOSAGE INCREASE, # 30 tablet, 0 Refills, Maintenance, 10/30/20 17:12:00 EST, Tablet, [facility]/pharmacy #0693, Partial [...] myelopathy(Confirmed) OA (osteoarthritis), Active cervical(Confirmed) Osteoporosis(Confirmed) Active *[facility] [phone] 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 50-70% bilaterally.3Patient's hat former [facility] and patient sees Dr. Gume Mart Social History Social History Type Response Tobacco Other: last cigarette 0. Sex
--- OUTSIDE RECORDS SUMMARY | 2022-06-09 08:51 | XMS_ITS | Continuity of Care Document ---
:1950 Author Organization [facility] Address [address] [place] [address]- Care Team Providers Name Role Phone Aarti SUTTON, Jose Person Primary Care Physician [facility]counter [facility] Date[facility]s): 08/01/20 - 08/31/20 [facility] [address] [place] [id number] Attending Physician: Evans Brock Admitting Physician: Evans [...] (oldterm)11 07/19/08 Given 1Result Comment: [05/28/2017] [facility]: [id number] History: [id number] Note: VIS GIVEN-DATED Admin Note: vis [id number] Note: VIS qztvh4Uupon Note: VIS-[id number] [place] [facility] [id number] History: [facility] Isaac Comment: [10/17/2015] PER NICO AT [id number] Note: VIS [id number] Note: VIS GIVEN Medications 12 inch Grab [...] Maintenance, 05/05/20 14:02:00 EDT, Powder, [facility]/pharmacy #[id number], 2 puffs Inhalation Every 6 hours,PRN:as needed, 160.02, cm, 05/05/20 13:43:00 EDT, Height, 73.6, kg, 04/18/20 10:1... Start Date: 05/05/20 Status: Orderedallopurinol 300 mg oral tablet 300 mg, 1, tablet, By Mouth, Daily, # 90 tablet, Refills 0, Tot. Refills 0, Maintenance, 07/06/20 15:50:00 EST, Route to Pharmacy Electronically, [facility]/pharmacy #0693, 160.02, cm, 07/03/20 14:54:00 EST, [...] EST, Route to Pharmacy Electronically, [facility]/pharmacy #0693, 160.02, cm, 07/03/20 14:54:00 EST,Height, [...] Maintenance, 07/04/20 11:46:00 EST, Capsule, [facility]/pharmacy #0693, 160.02, cm, 07/03/20 14:54:00 EST, [...] Maintenance, 04/24/20 9:53:00 EDT, Tablet, [facility]/pharmacy #[id number], 1 tablet By Mouth Daily [...] patient request Start Date: 08/30/20 Status: OrderedPen [place], 31 G x 5 mm BD Ultra [...] EST, Route to Pharmacy Electronically, [facility]/pharmacy #0693, 160.02, cm, 06/01/20 11:03:00 EDT, [...] # 9 Unknown, 5 Refills, 06/20/20 15:08:00EDT, [facility]/pharmacy #[id number], 160.02, cm, 06/01/20 11:03:00 EDT, [...] 07/03/20 15:20:00 EST, ER Tablet, [facility]/pharmacy #[id number], 160.02, cm, 07/03/20 14:54:00 EST, [...] cervical(Confirmed) Osteoporosis(Confirmed) Active *[facility] [phone] 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 Gume Mart Social History Social History Type Response Tobacco Other: last cigarette 0. Sex
--- OUTSIDE RECORDS SUMMARY | 2022-06-09 08:51 | XMS_ITS | Continuity of Care Document ---
:1950 Author Organization [facility] Address [address] [place] [address]- Care Team Providers Name Role Phone Ranjeet Rushing MD Primary Care Physician [place] [facility] [place]): [place]21 [facility] [address] [place] [address]- Attending Physician: Chrissy Ramey MD Referring Physician: Ranjeet Rushing MD Allergies, [...] (oldterm)11 07/19/08 Given 1Result Comment: [05/28/2017] [facility]: [id number] History: [id number] Note: VIS GIVEN-DATED Admin Note: vis [id number] Note: VIS vfocp7Islio Note: VIS-[id number] History: [facility] [place] [id number] History: [facility] [id number] Comment: [10/17/2015] PER NICO AT [id number] Note: VIS [id number] Note: VIS GIVEN Medications 12 inch Grab Bars 12 inch Grab Bars, See Instructions, # 2 each, Refills 0, Tot. Refills 0, Maintenance, Grab bars : Length 12inches Use as directed DX Unsteady Gait ICD10 R26.81 HT: 5'3 Weight 162lbs Length of need Lifetime, 07/07/20 11:45:00 EST, Supply Start Date: 07/07/20 Status: OrderedADMIT TO [facility] ADMIT TO [facility], See Instructions, # 1 each, Refills 0, Tot. Refills 0, Maintenance, FAX [phone] ADMIT TO RETIREMENT, PT, OT. 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 Start Date: 10/17/20 Status: Orderedalbuterol 90 mcg/inh inhalation powder 2 puffs, Inhalation, Every 6 hours, PRN as needed, # 1 each, 11 Refills, Maintenance, 05/05/20 14:02:00 EDT, Powder, [facility]/pharmacy #[id number], 2 puffs Inhalation Every 6 hours,PRN:as needed, 160.02, cm, 05/05/20 13:43:00 EDT, Height, 73.6, kg, 04/18/20 10:1... Start Date: 05/05/20 Status: Orderedalendronate 70 mg oral tablet 1 tablet, By Mouth, Every week, # 12 tablet, 6 Refills, Maintenance, 01/09/21 16:07:00 EDT, [id number], 160, cm, 12/25/20 14:20:00 EDT, Height, 77.5, kg, 10/05/20 14:31:00 EST, Dry Weight Start Date: 01/09/21 Status: Orderedallopurinol 300 mg oral tablet 300 mg, 1, tablet, By Mouth, Daily, # 90 tablet, Refills 1, Tot. Refills 1, Maintenance, 01/26/21 12:31:00 EDT, Route to Pharmacy Electronically, [facility]/pharmacy #[id number], 160, cm, 12/25/20 14:20:00 EDT, Height, 77.5, kg, 10/05/20 14:31:00 EST, Dry Weight Start Date: 01/26/21 Stop Date: 07/25/21 Status: Orderedallopurinol 300 mg oral tablet 300 mg, 1, tablet, By Mouth, Daily, for 90 days, # 90 tablet, Refills 0, Tot. Refills 0, Hard Stop 01/26/21 12:31:00 EDT, 10/28/20 12:31:00 EST, [id number], cm, 10/20/20 15:01:00 EST, Height, 77.5, kg, 02... Start Date: 10/28/20 Stop Date: 01/26/21 Status: [...] 1 Refills, Maintenance, 09/28/20 11:53:00 EST, Tablet, [facility]/pharmacy #[id number], 160, cm, 09/12/20 14:03:00 EST, Height, 71.3, kg, 08/08/20 7:00:00 EST, Dry Weight Start Date: 09/28/20 Status: OrderedDepends Under Pants Depends Under Pants, See Instructions, # 3 box, Refills 11, Tot. Refills 11, Maintenance, To use forincontinence. Diagnosis Kidney Disease Stage 3Life Large, 04/14/19 16:36:07 EDT, Compound Start Date: 04/14/19 Status: Ordereddoxycycline hyclate 100 mg oral capsule 1 capsule = 100 mg, By Mouth, 2 times a day, for 10 days, Take with food, but not with dairy products or calcium supplements, # 20 capsule, 0 Refills, Acute 01/24/21 12:04:00 EDT, 01/14/21 12:04:00 EDT, Capsule, [facility]/pharmacy #[id number], Partial fill upon p... Start Date: 01/14/21 Stop Date: 01/24/21 Status: OrderedDX: Neck Pain DX: Neck Pain, [...] 07/06/20 15:48:00 EST, Route to Pharmacy Electronically, [facility]/pharmacy #[id number], 160.02, cm, 07/03/20 14:54:00 EST,Height, 73.6, kg, 04/18/20 10:19:00 EDT, Dry Weight Start Date: 07/06/20 Stop Date: 10/04/20 Status: OrderedHumira 40 mg subcutaneous solution See Instructions, 40 mg [id number], 0 Refills, Maintenance, 10/23/20 13:46:00 EST, Partial fill upon patient request if the prescription is for a schedule II opioid drug. Start Date: 10/23/20 Status: OrderedLyrica 150 mg oral capsule 1 capsule = 150 mg, By Mouth, 2 times a day, DOSAGE INCREASE, # 60 capsule, 3 Refills, Maintenance, 07/04/20 11:46:00 EST, Capsule, [facility]/pharmacy #[id number], 160.02, cm, 07/03/20 14:54:00 EST, Height, 73.6, kg, 04/18/20 10:19:00 EDT, Dry Weight Start Date: 07/04/20 Status: Orderedmagnesium oxide 400 mg (240 mg elemental magnesium) oral tablet 1 tablet, By Mouth, Daily, # 90 tablet, 0 Refills, Acute, 09/20/20 12:20:00 EST, [facility], 90, TAKE 1 TABLET BY MOUTH DAILY, [...] if th... Start Date: 08/30/20 Status: OrderedPen [place], 31 G x 5 mm BD Ultra [...] 15:06:00 EDT, Route to Pharmacy Electronically, [facility]/pharmacy #[id number], 160, cm, 12/25/20 14:20:00 EDT, Height, 77.5, kg, 10/05/20 14:31:00 EST, . Start Date: 01/09/21 Status: Orderedspironolactone 100 mg oral tablet 100 mg, 1, tablet, By Mouth, Daily, # 90 tablet, Refills 0, Tot. 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 Gmue Mart Vital Signs Most recent to oldest [Reference Range]: 1 Height 160 cm (01/14/21 11:46 AM) Oxygen Saturation [94-100 %] 96 % (01/14/21 11:46 AM) Pulse Rate [55-90 bpm] 83 bpm (01/14/21 11:46 AM) Blood Pressure [90-138/55-84 mm Hg] 112/63 mm Hg (01/14/21 11:46 AM) Respiratory Rate [16-30 br/min] 18 br/min (01/14/21 11:46 AM) Temperature [96.8-100.4 DegF] 97.5 DegF (01/14/21 11:46 AM) Mode of Delivery (Oxygen) Room air (01/14/21 11:46 AM) Blood pressure sites Arm, right (01/14/21 11:46 AM) Temperature Route Temporal (01/14/21 11:46 AM) Social History Social History Type Response Tobacco Other: last cigarette 0. Sex
--- OUTSIDE RECORDS SUMMARY | 2022-06-09 08:51 | XMS_ITS | Continuity of Care Document ---
:1950 Author Organization [facility] Address [address] [place] [address]- Care Team Providers Name Role Phone Ranjeet Rushing MD Primary Care Physician [place] [facility] [place](s[place] 02/25/21 - 02/25/[address] [address]- Encounter Diagnosis Ankle pain, left (Final) - 02/25/21 Discharge Disposition: A-D/C Home Attending Physician: Noreen SUTTON, Khoa Cage Admitting Physician: Noreen SUTTON, Khoa Cage Referring Physician: Not on Staff, Referring MD [...] 07/19/08 Given 1Result Comment: [05/28/2017] [facility]: [id number] History: [id number] Note: VIS GIVEN-DATED Admin Note: vis [id number] Note: VIS pbqxn0Vjfio Note: VIS-LROIW1Idujbjpm History: [facility] [place] [id number] History: [facility] [id number] Comment: [10/17/2015] PER NICO AT [id number] Note: VIS [id number] Note: VIS GIVEN Medications 12 inch Grab Bars 12 inch Grab Bars, See Instructions, # 2 each, Refills 0, Tot. Refills 0, Maintenance, Grab bars : Length 12inches Use as directed DX Unsteady Gait ICD10 R26.81 HT: 5'3 Weight 162lbs Length of need Lifetime, 07/07/20 11:45:00 EST, Supply Start Date: 07/07/20 Status: OrderedADMIT TO [facility] ADMIT TO [facility], See Instructions, # 1 each, Refills 0, Tot. Refills 0, Maintenance, FAX [phone] ADMIT TO [facility], PT, OT. 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 Start Date: 10/17/20 Status: Orderedalbuterol 90 mcg/inh inhalation powder 2 puffs, Inhalation, Every 6 hours, PRN as needed, # 1 each, 11 Refills, Maintenance, 05/05/20 14:02:00 EDT, Powder, [facility]/pharmacy #[id number], 2 puffs Inhalation Every 6 hours,PRN:as needed, 160.02, cm, 05/05/20 13:43:00 EDT, Height, 73.6, kg, 04/18/20 10:1... Start Date: 05/05/20 Status: Orderedalendronate 70 mg oral tablet 1 tablet, By Mouth, Every week, # 12 tablet, 6 Refills, Maintenance, 01/09/21 16:07:00 EDT, [facility], 160, cm, 12/25/20 14:20:00 EDT, Height, 77.5, kg, 10/05/20 14:31:00 EST, Dry Weight Start Date: 01/09/21 Status: Orderedallopurinol 300 mg oral tablet 300 mg, 1, tablet, By Mouth, Daily, # 90 tablet, Refills 1, Tot. Refills 1, Maintenance, 01/26/21 12:31:00 EDT, Route to Pharmacy Electronically, [facility]/pharmacy #[id number], 160, cm, 12/25/20 [...] 03/23/21 16:45:00 EDT, 02/16/21 16:39:00 EDT, Cream, [facility]/pharmacy #[id number], Partial fill upon patientrequest [...] 1 Refills, Maintenance, 02/08/21 9:52:00 EDT, Tablet, [facility]/pharmacy #0693, 160, cm, 01/25/21 [...] 02/06/21 9:05:00 EDT, Route to Pharmacy Electronically, [facility]/pharmacy #[id number], 160, cm, 01/25/21 14:11:00 EDT, Height, 77.5, kg, 10/05/20 14:31:00 EST, Dry Weight Start Date: 02/06/21 Stop Date: 08/05/21 Status: OrderedHumira 40 mg subcutaneous solution See Instructions, 40 mg [id number], 0 Refills, Maintenance, 10/23/20 13:46:00 EST, Partial fill upon patient request if the prescription is for a schedule II opioid drug. Start Date: 10/23/20 Status: OrderedKeflex monohydrate 500 mg oral capsule 1 capsule = 500 mg, By Mouth, 4 times a day, for 10 days, # 40 each, 0 Refills, Acute 02/26/21 16:38:00 EDT, 02/16/21 16:38:00 EDT, Capsule, [facility]/pharmacy #[id number], Partial fill upon patient request if theprescription is for a schedule II opioid drug., 1... Start Date: 02/16/21 Stop Date: 02/26/21 Status: OrderedLyrica 150 mg oral capsule 1 capsule = 150 mg, By Mouth, 2 times a day, DOSAGE INCREASE, # 60 capsule, 3 Refills, Maintenance, 01/23/21 14:56:00 EDT, Capsule, [facility]/pharmacy #[id number], 160, cm, 01/14/21 11:46:00 EDT, Height, 77.5, kg,10/05/20 14:31:00 EST, Dry Weight Start Date: 01/23/21 Status: Orderedmagnesium oxide 400 mg (240 mg elemental magnesium) oral tablet 1 tablet, By Mouth, Daily, # 90 tablet, 0 Refills, Acute, 09/20/20 12:20:00 EST, [facility], 90, TAKE 1 TABLET BY MOUTH DAILY, 160, cm, 09/12/20 14:03:00 EST, Height, 71.3, kg, 08/08/20 7:00:00 EST, Dry Weight Start Date: 09/20/20 Status: OrderedMelatonin 3 mg oral tablet 1 tablet = 3 mg, By Mouth, Daily at bedtime, PRN for insomnia, [facility], # 90 tablet, 3 Refills, Maintenance, 04/24/20 9:53:00 EDT, Tablet, [facility]/pharmacy #[id number], 1 tablet By Mouth Daily at bedtime,PRN:for insomnia,Instr:[facility] brand, 160.02, cm, 04/18/20... Start Date: 04/24/20 [...] if th... Start Date: 08/30/20 Status: OrderedPen [place], 31 G x 5 mm BD Ultra Fine III See Instructions, # 200 each, Refills 5, Tot. Refills 5, Maintenance, To inject insulin BID for DM II E11.9 PER RAJNI EMERY NP-Marquita, 10/06/20 10:54:00 EST, SHORT, Compound, 160, cm, [...] 01/09/21 15:06:00 EDT, Route to Pharmacy Electronically, [facility]/pharmacy #[id number], 160, cm, 12/25/20 14:20:00 EDT, Height, 77.5, kg, 10/05/20 14:31:00 EST, Dr... Start Date: 01/09/21 Status: Orderedspironolactone 100 mg oral tablet 100 mg, 1, tablet, By Mouth, Daily, # 90 tablet, Refills 0, Tot. Refills 0, Maintenance, 01/23/21 14:56:00 EDT, Route to Pharmacy Electronically, [facility]/pharmacy #[id number], Partial fill upon patient request if the prescription is for a schedule II opioid thomas... Start Date: 01/23/21 Stop Date: 04/23/21 Status: OrderedToradol Inj 15 mg, Injection, IV Push Slowly, Once, STAT, 02/25/21 14:01:00 EDT, Stop date 02/25/21 14:01:00 EDT Start Date: 02/25/21 Stop Date: 02/25/21 Status: CompletedtraMADol 50 mg oral tablet See Instructions, PRN Pain , Severe, 1-2 tablets by mouth every 6 hours, # 240 tablet, 1 Refills, Soft Stop, 01/25/21 16:45:00 EDT, [facility]/pharmacy #[id number], 160, cm, 01/25/21 [...] Refills, Maintenance, 07/03/20 15:20:00 EST, ER Tablet, [facility]/pharmacy #[id number], 160.02, cm, 07/03/20 14:54:00 EST, Height, 73.6, kg, 04/18/20 10:19:00 EDT, Dry Weight Start Date: 07/03/20 Status: OrderedZoloft 50 mg oral tablet 1 tablet = 50 mg, By Mouth, Daily, DOSAGE INCREASE, # 30 tablet, 6 Refills, Maintenance, 01/05/21 10:10:00 EDT, Tablet, [facility]/pharmacy #[id number], Partial fill upon [...] Active *[facility] [phone] 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 50-70% bilaterally.3Patient's potline monitor is [facility] and patient sees Dr. Gume Mart Vital Signs Most recent to oldest 1 2 3 [Reference Range]: Height 160 cm (02/25/21 11:44 AM) Weight 79.6 kg (02/25/21 11:44 AM) Oxygen Saturation [94-100 %] 93 % 95 % 100 % *L* (02/25/21 5:18 PM) (02/25/21 3:01 PM ) (02/25/21 9:07 PM) Pulse Rate [55-90 bpm] 86 bpm 89 bpm 82 bpm (02/25/21 9:07 PM) (02/25/21 5:18 PM) (02/25/21 3:01 P M) Body Mass Index [18.5-24.99] 31.09 *>HHI* (02/25/21 11:44 AM) Blood Pressure [90-138/55-84 148/73 mm Hg 132/85 mm Hg 138 /79 mm Hg mm Hg] *H* (02/25/21 5:18 PM) (02/25/21 3:01 PM ) (02/25/21 9:07 PM) Respiratory Rate [16-30 16 br/min 17 br/min 20 br/mi n br/min] (02/25/21 9:07 PM) (02/25/21 5:18 PM) (02/25/21 3:42 P M) Temperature [96.8-100.4 99 DegF 97.8 DegF 98 DegF DegF] (02/25/21 9:07 PM) (02/25/21 5:18 PM) (02/25/21 1:16 P M) Mode of Delivery (Oxygen) Room air Room air Room a ir (02/25/21 9:07 PM) (02/25/21 5:18 PM) (02/25/21 3:01 P M) Blood pressure sites Arm, right Arm, right Arm, right (02/25/21 9:07 PM) (02/25/21 5:18 PM) (02/25/21 3:01 P M) Temperature Route Oral Oral Oral (02/25/21 9:07 PM) (02/25/21 5:18 PM) (02/25/21 1:16 P M) Dry Weight 79.6 kg (02/25/21 11:44 AM) Weight Obtained Via Patient/family stated (02/25/21 11:44 AM) Dry Weight Obtained Via Patient/family stated (02/25/21 11:44 AM) Social History Social History Type Response Tobacco Other: last cigarette 0. Sex
--- OUTSIDE RECORDS SUMMARY | 2022-06-09 08:51 | XMS_ITS | Continuity of Care Document ---
:1950 Author Organization [facility] Address [address] [place] [address]- Care Team Providers Name Role Phone Ranjeet Rushing MD Primary Care Physician Encounter [facility] Date(s): 01/16/21 - 02/15/21 [facility] [address] [place] [address]- Allergies, Adverse Reactions, Alerts Substance Reaction Severity [...] 07/19/08 Given 1Result Comment: [05/28/2017] [facility]: [id number] History: [id number] Note: VIS GIVEN-DATED Admin Note: vis [id number] Note: VIS [id number] Note: VIS-XHIHU3Owpvjjpl History: [facility] [id number] History: [facility] [id number] Comment: [10/17/2015] PER NICO AT [id number] Note: VIS [id number] Note: VIS GIVEN Medications 12 inch Grab Bars 12 inch Grab Bars, See Instructions, # 2 each, Refills 0, Tot. Refills 0, Maintenance, Grab bars : Length 12inches Use as directed DX Unsteady Gait ICD10 R26.81 HT: 5'3 Weight 162lbs Length of need Lifetime, 07/07/20 11:45:00 EST, Supply Start Date: 07/07/20 Status: OrderedADMIT TO [facility] ADMIT TO [facility], See Instructions, # 1 each, Refills 0, Tot. Refills 0, Maintenance, FAX [phone] ADMIT TO CUSTODIAL, PT, OT. 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 Refills 1, Maintenance, 01/26/21 12:31:00 EDT, Route to Pharmacy Electronically, [facility]/pharmacy #[id number], 160, cm, 12/25/20 14:20:00 [...] Maintenance, 02/08/21 9:52:00 EDT, Tablet, [facility]/pharmacy #[id number], [...] mg subcutaneous solution See Instructions, 40 mg [id number], 0 Refills, Maintenance, 10/23/20 13:46:00 EST, Partial fill upon patient request if the prescription is for a schedule II opioid drug. Start Date: 10/23/20 Status: OrderedLyrica 150 mg oral capsule 1 capsule = 150 mg, By Mouth, 2 times a day, DOSAGE INCREASE, # 60 capsule, 3 Refills, Maintenance, 01/23/21 14:56:00 EDT, Capsule, [facility]/pharmacy #[id number], 160, cm, 01/14/21 11:46:00 EDT, Height, 77.5, kg,10/05/20 14:31:00 EST, Dry Weight Start Date: 01/23/21 Status: Orderedmagnesium oxide 400 mg (240 mg elemental magnesium) oral tablet 1 tablet, By Mouth, Daily, # 90 tablet, 0 Refills, Acute, 09/20/20 12:20:00 EST, [facility], 90, TAKE 1 TABLET BY MOUTH DAILY, [...] if th... 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 Gume Mart Social History Social History Type Response Tobacco Other: last cigarette 0. Sex
--- OUTSIDE RECORDS SUMMARY | 2022-06-09 08:52 | XMS_ITS | Continuity of Care Document ---
:1950 Author Organization [facility] Address [address] [place] [address]- Care Team Providers Name Role Phone Aarti SUTTON, Jose Person Primary Care Physician Encounter [facility] Date(s): 07/10/20 - 08/09/20 [facility] [address] [place] [address]- Allergies, Adverse Reactions, Alerts Substance Reaction Severity [...] (PPV23) (oldterm)11 07/19/08 Given 1Result Comment: [05/28/2017] [facility]: [id number] History: [id number] Note: VIS GIVEN-DATED Admin Note: vis ycecp9Djjzp Note: VIS nfgdv5Paziz Note: VIS-DLGUR9Mzhwgvjh History: [facility] [id number] History: [facility] Isaac Comment: [10/17/2015] PER NICO AT [id number] Note: VIS [id number] Note: VIS GIVEN Medications 12 inch Grab [...] Maintenance, 05/05/20 14:02:00 EDT, Powder, [facility]/pharmacy #[id number], 2 puffs Inhalation Every 6 hours,PRN:as needed, 160.02, cm, 05/05/20 13:43:00 EDT, Height, 73.6, kg, 04/18/20 10:1... Start Date: 05/05/20 Status: Orderedalendronate 70 mg oral tablet 1 tablet, By Mouth, Every week, # 12 tablet, 0 Refills, Maintenance, 06/01/20 9:05:00 EDT, [facility]/pharmacy #0693, 160.02, cm, 05/09/20 12:34:00 EDT, Height, 73.6, kg, 04/18/20 10:19:00 EDT, Dry Weight Start Date: 06/01/20 Status: Orderedallopurinol 300 mg oral tablet 300 mg, 1, tablet, By Mouth, Daily, # 90 tablet, Refills 0, Tot. Refills 0, Maintenance, 07/06/20 15:50:00 EST, Route to Pharmacy Electronically, [facility]/pharmacy #[id number], 160.02, cm, 07/03/20 14:54:00 EST, [...] EST, Route to Pharmacy Electronically, [facility]/pharmacy #0693, 160.02, cm, 07/03/20 14:54:00 EST,Height, [...] Maintenance, 07/04/20 11:46:00 EST, Capsule, [facility]/pharmacy #0693, 160.02, cm, 07/03/20 14:54:00 EST, Height, 73.6, kg, 04/18/20 10:19:00 EDT, Dry Weight Start Date: 07/04/20 Status: Orderedmagnesium oxide 400 mg oral tablet 1 tablet = 400 mg, By Mouth, Daily, PER RAJNI CARDONA, # 90 tablet, 0 Refills, Maintenance, 06/28/20 12:11:00 EST, [facility]/pharmacy #0693, 160.02, cm, 06/01/20 11:03:00 EDT, Height, 73.6, kg, 04/18/20 10:19:00 EDT, Dry Weight Start Date: 06/28/20 Status: OrderedMelatonin 3 mg oral tablet 1 tablet = 3 mg, By Mouth, Daily at bedtime, PRN for insomnia, [facility], # 90 tablet, 3 Refills, Maintenance, 04/24/20 9:53:00 EDT, Tablet, [facility]/pharmacy #0693, 1 tablet By Mouth Daily [...] Refills, Maintenance, 02/21/20 11:53:00 EDT, [facility]/pharmacy #0693, 301-350: 12 units, 351-400: 14 units, 401-450: 1... Start Date: 02/21/20 Status: OrderedoxyCODONE 5 mg oral capsule 1 capsule = 5 mg, By Mouth, Every 6 hours, PRN as needed for pain, 0 Refills, Maintenance, 06/01/20 11:12:00 EDT, Capsule, Partial fill upon patient request Start Date: 06/01/20 Status: OrderedPen [place], 31 G x 5 mm BD Ultra [...] EST, Route to Pharmacy Electronically, [facility]/pharmacy #[id number], 160.02, cm, 06/01/20 11:03:00 EDT, Height, 73.6, kg, 04/18/20 10:19:00 EDT,... Start Date: 06/28/20 Status: Orderedspironolactone 100 mg oral tablet 1, tablet, By Mouth, Daily, # 30 tablet, Refills 2, Tot. Refills 2, Maintenance, 05/16/20 16:31:00 EDT, Route to Pharmacy Electronically, [facility]/pharmacy #0693, 160.02, cm, 05/09/20 12:34:00 EDT, Height, 73.6, kg, 04/18/20 10:19:00 EDT, Dry Weight Start Date: 05/16/20 Status: OrderedtraMADol 50 mg oral tablet See Instructions, PRN Pain , Severe, 1-2 tablets by mouth every 6 hours Schedule follow visit, # 240tablet, 1 Refills, Soft Stop, 05/19/20 16:27:00 EDT, [facility]/pharmacy #0693, 160.02, cm, 05/09/20 12:34:00 EDT, [...] Soft Stop, 12/16/19 15:45:00 EDT, [facility]/pharmacy #0693, 160.02, cm, 11/02/19 15:34:00 EDT, [...] cervical(Confirmed) Osteoporosis(Confirmed) Active *[facility] [phone] 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 50-70% bilaterally.3Patient's kiss machine operator is [facility] and patient sees Dr. Gume Mart Social History Social History Type Response Tobacco Other: last cigarette 0. Sex
--- OUTSIDE RECORDS SUMMARY | 2022-06-09 08:52 | XMS_ITS | Continuity of Care Document ---
:1950 Author Organization [facility] Adult Address [address] [place] [address]- Care Team Providers Name Role Phone Kristan SUTTON, Ranjeet Beatty Primary Care Physician [facility] Date[facility]s): 02/14/21 - 03/16/21 [facility] [address] [place] [address]- Allergies, Adverse Reactions, Alerts Substance Reaction Severity [...] (oldterm)11 07/19/08 Given 1Result Comment: [05/28/2017] [facility]: [id number] History: [id number] Note: VIS GIVEN-DATED Admin Note: vis [id number] Note: VIS qrpnf8Hphqf Note: VIS-IGTSP8Ovamunzl History: [facility] [id number] History: [facility] [id number] Comment: [10/17/2015] PER NICO AT [id number] Note: VIS [id number] Note: VIS GIVEN Medications 12 inch Grab Bars 12 inch Grab Bars, See Instructions, # 2 each, Refills 0, Tot. Refills 0, Maintenance, Grab bars : Length 12inches Use as directed DX Unsteady Gait ICD10 R26.81 HT: 5'3 Weight 162lbs Length of need Lifetime, 07/07/20 11:45:00 EST, Supply Start Date: 07/07/20 Status: OrderedADMIT TO CR[facility]ICAL [facility]OSPITAL HOME CARE ADMIT TO [facility]ICAL [facility]OSPITAL HOME CARE, See Instructions, # 1 each, Refills 0, Tot. Refills 0, Maintenance, FAX [phone] ADMIT TO RETIREMENT, PT, OT. 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 Refills 1, Maintenance, 01/26/21 12:31:00 EDT, Route to Pharmacy Electronically, [facility]/pharmacy #[id number], 160, cm, 12/25/20 14:20:00 EDT, Height, [...] 03/23/21 16:45:00 EDT, 02/16/21 16:39:00 EDT, Cream, [facility]/pharmacy #[id number], Partial fill upon patientrequest if the prescription is for a schedule II... Start Date: 02/16/21 Stop Date: 03/23/21 Status: OrderedbuPROPion 300 mg/24 hours (XL) oral tablet, extended release 1 tablet, By Mouth, Daily, # 30 tablet, 5 Refills, Maintenance, 03/12/21 10:51:00 EDT, [id number], 160, cm, 02/27/21 13:50:00 EDT, Height, 79.6, kg, 02/25/21 11:44:00 EDT, Dry Weight Start Date: 03/12/21 Status: OrderedCannabis (Schedule I Substance) 0 Refills, [...] 1 Refills, Maintenance, 02/08/21 9:52:00 EDT, Tablet, [facility]/pharmacy #[id number], 160, cm, 01/25/21 14:11:00 EDT, Height, [...] 02/06/21 9:05:00 EDT, Route to Pharmacy Electronically, [facility]/pharmacy #[id number], 160, cm, 01/25/21 14:11:00 EDT, Height, 77.5, kg, 10/05/20 14:31:00 EST, Dry Weight Start Date: 02/06/21 Stop Date: 08/05/21 Status: OrderedHumira 40 mg subcutaneous solution See Instructions, 40 mg [id number], 0 Refills, Maintenance, 10/23/20 13:46:00 EST, Partial fill upon patient request if the prescription is for a schedule II opioid drug. Start Date: 10/23/20 Status: OrderedLyrica 150 mg oral capsule 1 capsule = 150 mg, By Mouth, 2 times a day, DOSAGE INCREASE, # 60 capsule, 3 Refills, Maintenance, 01/23/21 14:56:00 EDT, Capsule, [facility]/pharmacy #[id number], 160, cm, 01/14/21 11:46:00 EDT, Height, 77.5, kg,10/05/20 14:31:00 EST, Dry Weight Start Date: 01/23/21 Status: Orderedmagnesium oxide 400 mg (240 mg elemental magnesium) oral tablet 1 tablet, By Mouth, Daily, # 90 tablet, 0 Refills, Acute, 09/20/20 12:20:00 EST, [facility], 90, TAKE 1 TABLET BY MOUTH DAILY, [...] if th... Start Date: 08/30/20 Status: OrderedPen [place], 31 G x 5 mm BD Ultra [...] 01/09/21 15:06:00 EDT, Route to Pharmacy Electronically, [facility]/pharmacy #[id number], 160, cm, 12/25/20 14:20:00 EDT, Height, 77.5, kg, 10/05/20 14:31:00 EST, Dr... Start Date: 01/09/21 Status: Orderedspironolactone 100 mg oral tablet 100 mg, 1, tablet, By Mouth, Daily, # 90 tablet, Refills 0, Tot. Refills 0, Maintenance, 01/23/21 14:56:00 EDT, Route to Pharmacy Electronically, [facility]/pharmacy #[id number], Partial fill upon patient request if the prescription is for a schedule II opioid geovanny. 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 Gume Mart Social History Social History Type Response Tobacco Other: last cigarette 0. Sex
--- OUTSIDE RECORDS SUMMARY | 2022-06-09 08:52 | XMS_ITS | Continuity of Care Document ---
:[address] [facility] Adult Address [address] [place] [id number]- Care Team Providers Name Role Phone Ranjeet Rushing MD Primary Care Physician Encounter [facility] [place] [place] Date(s): 04/17/20 - 04/24/20 [facility] [address] [place] [address]- [facility] Attending Physician: Not on Staff, [...] 1Result Comment: [05/28/2017] [facility]: [id number] History: [id number] Note: VIS GIVEN-DATED Admin Note: vis [id number] Note: VIS zigst2Falao Note: VIS-IGNOQ9Utkpwmiw History: [facility] [id number] History: [facility] DEANGELO Gray Comment: [10/17/2015] PER NICO AT [id number] Note: VIS [id number] Note: VIS GIVEN Medications albuterol 90 mcg/inh inhalation powder 2 puffs, Inhalation, Every 6 hours, PRN as needed, # 1 each, 11 Refills, Maintenance, 12/29/18 9:38:36 EDT, Powder, 2 puffs Inhalation Every 6 hours,PRN:as needed Start Date: 12/29/18 Status: Orderedalendronate 70 mg oral tablet 1 tablet, By Mouth, Every week, # 12 tablet, 0 Refills, Maintenance, 03/17/20 11:27:00 EDT, [facility], 160.02, cm, 03/14/20 13:30:00 EDT, Height, 81.6, kg, 07/27/19 14:52:00 EST, Dry Weight Start Date: 03/17/20 Status: Orderedallopurinol 300 mg oral tablet 1, tablet, By Mouth, Daily, # 90 tablet, Refills 0, Tot. Refills 0, Maintenance, 04/05/20 9:38:00 EDT, Route to Pharmacy Electronically, [facility]/pharmacy #0693, 160.02, cm, 03/29/20 [...] TAKE 1 CAPSULE BY MOUTH EVERY DAY, [facility]/pharmacy #[id number] Start Date: 04/20/19 Status: Orderedcyanocobalamin 500 mcg oral tablet 1 tablet = 500 mcg, By Mouth, Daily, # 90 tablet, 0 Refills, Maintenance, 02/11/20 13:33:00 EDT, Tablet, [facility]/pharmacy #0693, 160.02, cm, 02/11/20 [...] 04/07/20 11:50:00 EDT, Route to Pharmacy Electronically, [facility]/pharmacy #0693, 160.02, cm, 03/29/20 10:57:00 EDT,Height, 81.6, kg, 07/27/19 14:52:00 EST, Dry Weight Start Date: 04/07/20 Status: Orderedgabapentin 300 mg oral capsule 300 mg, 1, capsule, By Mouth, 3 times a day, # 90 capsule, Refills 5, Tot. Refills 5, Maintenance, 04/13/20 12:42:00 EDT, Route to Pharmacy Electronically, [facility]/pharmacy #0693, 160.02, cm, 03/29/20 [...] each, 5 Refills, Maintenance, 02/21/20 11:53:00 EDT, [facility]/pharmacy #[id number], 301-350: 12 units, 351-400: 14 units, 401-450: 1... Start Date: 02/21/20 Status: OrderedPen [place], 31 G x 5 mm BD [...] 07/20/19 16:14:12 EST, Route to Pharmacy Electronically, [id number], [facility]/pharmacy #[id number] Start Date: 07/20/19 Status: Orderedspironolactone 100 mg oral tablet 1, tablet, By Mouth, Daily, # 30 tablet, Refills 5, Tot. Refills 0, Maintenance, 12/07/19 13:00:00 EDT, Route to Pharmacy Electronically, [facility], 160.02, cm, 11/02/19 15:34:00 EDT, Height, 81.6, kg, 07/27/19 14:52:00 EST, Dry Weight Start Date: 12/07/19 Status: OrderedtraMADol 50 mg oral tablet See Instructions, PRN Pain , Severe, 1-2 tablets by mouth every 6 hours, # 240 tablet, 1 Refills, Soft Stop, 03/14/20 14:29:00 EDT, [facility]/pharmacy #0693, 160.02, cm, 03/14/20 13:30:00 EDT, [...] 5 Refills, Soft Stop, 12/16/19 15:45:00 EDT, [facility]/pharmacy #0693, 160.02, cm, 11/02/19 15:34:00 EDT, Height, 81.6, kg, 07/27/19 14:52:00 EST, Dry Weight Start Date: 12/16/19 Status: OrderedVictoza 18 mg/3 mL subcutaneous solution See Instructions, INJECT 1.8 MG SUBCUTANEOUS DAILY, # 9 Unknown, 0 Refills, Maintenance, 03/03/20 15:42:00 EDT, [facility]/pharmacy #0693, 160.02, cm, 02/11/20 13:03:00 EDT, Height, 81.6, kg, 07/27/19 14:52:00 EST, Dry Weight Start Date: 03/03/20 Status: OrderedVitamin D3 1000 intl units oral capsule 1 capsule = 1,000 International_Units, By Mouth, Daily, # 90 capsule, 3 Refills, Maintenance, 10/20/19 9:16:00 EST, Capsule, [facility]/pharmacy #[id number], resent from 08/14, 160.02, cm, 09/29/19 14:57:00 EST, Height, 81.6, kg, 07/27/19 14:52:00 EST, Dry Weight Start Date: 10/20/19 Status: OrderedWellbutrin XL 150 mg/24 hours oral tablet, extended release 1 tablet = 150 mg, By Mouth, Every 24 hours, do not crush or chew, # 30 tablet, 6 Refills, Maintenance, 12/09/19 16:12:00 EDT, ER Tablet, [facility]/pharmacy #[id number], 160.02, cm, 11/02/19 [...] OA (osteoarthritis), Active cervical(Confirmed) Osteoporosis(Confirmed) Active *[facility] [phone] AUDIENCE DEVELOPMENT MANAGER Alpa Mcneilther(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 50-70% bilaterally.3Patient's inspector set up and lay out is [facility] and patient sees Dr. Gume Mart Vital Signs Most recent to oldest [Reference Range]: 1 Height 160.02 cm (04/17/20 2:41 PM) Weight 73.6 kg (04/17/20 2:41 PM) Oxygen Saturation [94-100 %] 97 % (04/17/20 2:41 PM) Pulse Rate [55-90 bpm] 86 bpm (04/17/20 2:41 PM) Body Mass Index [18.5-24.99] 28.74 *H* (04/17/20 2:41 PM) Blood Pressure [90-138/55-84 mm Hg] 122/70 mm Hg (04/17/20 2:41 PM) Blood pressure sites Arm, right (04/17/20 2:41 PM) Social History Social History Type Response Smoking Status Current some day smoker; Typ e: Cigarettes; Other: less than 1/2 pack a day; Tobacco use times per day: 1/2 pack a day; entered on: 02/19/17 Sex
--- OUTSIDE RECORDS SUMMARY | 2022-06-09 08:52 | XMS_ITS | Continuity of Care Document ---
:1950 Author Organization [facility] Adult Address [address] [place] [address]- Care Team Providers Name Role Phone Ranjeet Rushing MD Primary Care Physician [facility] Date[facility]s): 05/12/20 - 06/11/20 [facility] [address] [place] [phone]- [facility] Allergies, Adverse Reactions, Alerts Substance Reaction Severity [...] (PPV23) (oldterm)11 07/19/08 Given 1Result Comment: [05/28/2017] [facility]: [id number] History: [id number] Note: VIS GIVEN-DATED Admin Note: vis vkakn4Kklrz Note: VIS sxezr2Adltl Note: VIS-ZQTCQ5Ylsvrimo History: [facility] NT3Boxyynxm History: [facility] DEANGELO Gray Comment: [10/17/2015] PER NICO AT [id number] Note: VIS [id number] Note: VIS GIVEN Medications albuterol 90 mcg/inh inhalation powder 2 puffs, Inhalation, Every 6 hours, PRN as needed, # 1 each, 11 Refills, Maintenance, 05/05/20 14:02:00 EDT, Powder, [facility]/pharmacy #[id number], 2 puffs Inhalation Every 6 hours,PRN:as needed, 160.02, cm, 05/05/20 13:43:00 EDT, Height, 73.6, kg, 04/18/20 10:1... Start Date: 05/05/20 Status: Orderedalendronate 70 mg oral tablet 1 tablet, By Mouth, Every week, # 12 tablet, 0 Refills, Maintenance, 06/01/20 9:05:00 EDT, [facility]/pharmacy #0693, 160.02, cm, 05/09/20 12:34:00 EDT, Height, 73.6, kg, 04/18/20 10:19:00 EDT, Dry Weight Start Date: 06/01/20 Status: Orderedallopurinol 300 mg oral tablet 1, tablet, By Mouth, Daily, # 90 tablet, Refills 0, Tot. Refills 0, Maintenance, 04/05/20 9:38:00 EDT, Route to Pharmacy Electronically, [facility]/pharmacy #0693, 160.02, cm, 03/29/20 10:57:00 EDT, Height, [...] Refills, Maintenance, 06/01/20 12:01:00 EDT, Capsule, [facility]/pharmacy #0693, 160.02, cm, 06/01/20 11:03:00 EDT, Height, [...] 1 CAPSULE BY MOUTH EVERY DAY, [facility]/pharmacy #[id number] Start Date: 04/20/19 Status: Orderedcyanocobalamin 500 mcg oral tablet 1 tablet = 500 mcg, By Mouth, Daily, # 90 tablet, 0 Refills, Maintenance, 02/11/20 13:33:00 EDT, Tablet, [facility]/pharmacy #0693, 160.02, cm, 02/11/20 13:03:00 EDT, Height, [...] 11:50:00 EDT, Route to Pharmacy Electronically, [facility]/pharmacy #0693, 160.02, cm, 03/29/20 10:57:00 EDT,Height, 81.6, kg, 07/27/19 14:52:00 EST, Dry Weight Start Date: 04/07/20 Status: Orderedgabapentin 300 mg oral capsule 300 mg, 1, capsule, By Mouth, 3 times a day, # 90 capsule, Refills 5, Tot. Refills 5, Maintenance, 04/13/20 12:42:00 EDT, Route to Pharmacy Electronically, [facility]/pharmacy #0693, 160.02, cm, 03/29/20 10:57:00 EDT, Height, [...] Refills, Maintenance, 05/12/20 14:54:00 EDT, Capsule, [facility]/pharmacy #0693, 160.02, cm, 05/09/20 12:34:00 EDT, Height, [...] 04/24/20 9:53:00 EDT, Tablet, [facility]/pharmacy #0693, 1 tablet By Mouth Daily at [...] Maintenance, 02/21/20 11:53:00 EDT, [facility]/pharmacy #0693, 301-350: 12 units, 351-400: 14 units, 401-450: 1... Start Date: 02/21/20 Status: OrderedoxyCODONE 5 mg oral capsule 1 capsule = 5 mg, By Mouth, Every 6 hours, PRN as needed for pain, 0 Refills, Maintenance, 06/01/20 11:12:00 EDT, Capsule, Partial fill upon patient request Start Date: 06/01/20 Status: OrderedPen [place], 31 G x 5 mm BD Ultra [...] 07/20/19 16:14:12 EST, Route to Pharmacy Electronically, [id number], [facility]/pharmacy #[id number] Start Date: 07/20/19 Status: Orderedspironolactone 100 mg oral tablet 1, tablet, By Mouth, Daily, # 30 tablet, Refills 2, Tot. Refills 2, Maintenance, 05/16/20 16:31:00 EDT, Route to Pharmacy Electronically, [facility]/pharmacy #0693, 160.02, cm, 05/09/20 12:34:00 EDT, Height, 73.6, kg, 04/18/20 10:19:00 EDT, Dry Weight Start Date: 05/16/20 Status: OrderedtraMADol 50 mg oral tablet See Instructions, PRN Pain , Severe, 1-2 tablets by mouth every 6 hours Schedule follow visit, # 240tablet, 1 Refills, Soft Stop, 05/19/20 16:27:00 EDT, [facility]/pharmacy #0693, 160.02, cm, 05/09/20 12:34:00 EDT, Height, [...] Stop, 12/16/19 15:45:00 EDT, [facility]/pharmacy #0693, 160.02, cm, 11/02/19 15:34:00 EDT, Height, 81.6, kg, 07/27/19 14:52:00 EST, Dry Weight Start Date: 12/16/19 Status: OrderedVictoza 18 mg/3 mL subcutaneous solution See Instructions, INJECT 1.8 MG UNDER THE SKIN ONCE DAILY, # 9 Unknown, 0 Refills, Maintenance, [facility] ST[facility], 160.02, cm, 05/09/20 12:34:00 EDT, Height, 73.6, kg, 04/18/20 10:19:00 EDT, Dry Weight Start Date: 05/26/20 Status: OrderedVitamin D3 1000 intl units oral capsule 1 capsule = 1,000 International_Units, By Mouth, Daily, # 90 capsule, 3 Refills, Maintenance, 10/20/19 9:16:00 EST, Capsule, [facility]/pharmacy #0693, resent from 08/14, 160.02, cm, 09/29/19 14:57:00 EST, Height, 81.6, kg, 07/27/19 14:52:00 EST, Dry Weight Start Date: 10/20/19 Status: OrderedWellbutrin XL 150 mg/24 hours oral tablet, extended release 1 tablet = 150 mg, By Mouth, Every 24 hours, do not crush or chew, # 30 tablet, 6 Refills, Maintenance, 12/09/19 16:12:00 EDT, ER Tablet, [facility]/pharmacy #0693, 160.02, cm, 11/02/19 15:34:00 EDT, Height, [...] myelopathy(Confirmed) OA (osteoarthritis), Active cervical(Confirmed) Osteoporosis(Confirmed) Active *[facility] [phone] 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 50-70% bilaterally.3Patient's land checker is [facility] and patient sees Dr. Gume Mart Social History Social History Type Response Smoking Status Current some day smoker; Typ e: Cigarettes; Other: less than 1/2 pack a day; Tobacco use times per day: 1/2 pack a day; entered on: 02/19/17 Sex
--- OUTSIDE RECORDS SUMMARY | 2022-06-09 08:52 | XMS_ITS | Continuity of Care Document ---
:1950 Author Organization [facility] Adult Address [address] [place] [address]- Care Team Providers Name Role Phone Aarti SUTTON, Jose Person Primary Care Physician [facility] Date[facility]): 04[facility]20 - 08/23/20 [facility] [address] [place] [address]- Attending Physician: Matilda LOZADA, Chari Santos Referring [...] Given 1Result Comment: [05/28/2017] [facility]: [id number] History: [id number] Note: VIS GIVEN-DATED Admin Note: vis [id number] Note: VIS omaiy7Lxyfd Note: VIS-UMGAN5Ewraxpdc History: [facility] [id number] History: [facility] DEANGELO Gray Comment: [10/17/2015] PER NICO AT [id number] Note: VIS OSEFO41Fwajd Note: VIS GIVEN Medications 12 inch Grab [...] 11 Refills, Maintenance, 05/05/20 14:02:00 EDT, Powder, [facility]/pharmacy #0693, 2 puffs Inhalation Every 6 hours,PRN:as needed, 160.02, cm, 05/05/20 13:43:00 EDT, Height, 73.6, kg, 04/18/20 10:1... Start Date: 05/05/20 Status: Orderedalendronate 70 mg oral tablet 1 tablet, By Mouth, Every week, # 12 tablet, 0 Refills, Maintenance, 06/01/20 9:05:00 EDT, [facility]/pharmacy #0693, 160.02, cm, 05/09/20 12:34:00 EDT, Height, 73.6, kg, 04/18/20 10:19:00 EDT, Dry Weight Start Date: 06/01/20 Status: Orderedallopurinol 300 mg oral tablet 300 mg, 1, tablet, By Mouth, Daily, # 90 tablet, Refills 0, Tot. Refills 0, Maintenance, 07/06/20 15:50:00 EST, Route to Pharmacy Electronically, [facility]/pharmacy #0693, 160.02, cm, 07/03/20 14:54:00 EST, [...] TAKE 1 CAPSULE BY MOUTH EVERY DAY, [facility]/pharmacy #0693 Start Date: 04/20/19 Status: Orderedcyanocobalamin 500 mcg oral tablet 1 tablet = 500 mcg, By Mouth, Daily, # 90 tablet, 0 Refills, Maintenance, 02/11/20 13:33:00 EDT, Tablet, [facility]/pharmacy #0693, 160.02, cm, 02/11/20 13:03:00 EDT, [...] 07/06/20 15:48:00 EST, Route to Pharmacy Electronically, [facility]/pharmacy #0693, 160.02, cm, 07/03/20 14:54:00 EST,Height, 73.6, kg, 04/18/20 10:19:00 EDT, Dry Weight Start Date: 07/06/20 Stop Date: 10/04/20 Status: OrderedLyrica 150 mg oral capsule 1 capsule = 150 mg, By Mouth, 2 times a day, DOSAGE INCREASE, # 60 capsule, 3 Refills, Maintenance, 07/04/20 11:46:00 EST, Capsule, [facility]/pharmacy #0693, 160.02, cm, 07/03/20 14:54:00 EST, Height, 73.6, kg, 04/18/20 10:19:00 EDT, Dry Weight Start Date: 07/04/20 Status: Orderedmagnesium oxide 400 mg oral tablet 1 tablet = 400 mg, By Mouth, Daily, PER CHARI CARDONA, # 90 tablet, 0 Refills, Maintenance, 06/28/20 12:11:00 EST, [facility]/pharmacy #0693, 160.02, cm, 06/01/20 11:03:00 EDT, Height, 73.6, kg, 04/18/20 10:19:00 EDT, Dry Weight Start Date: 06/28/20 Status: OrderedMelatonin 3 mg oral tablet 1 tablet = 3 mg, By Mouth, Daily at bedtime, PRN for insomnia, [facility] brand, # 90 tablet, 3 Refills, Maintenance, 04/24/20 9:53:00 EDT, Tablet, [facility]/pharmacy #0693, 1 tablet By Mouth Daily at bedtime,PRN:for insomnia,Instr:[facility] brand, 160.02, cm, 04/18/20... Start Date: [...] Date: 08/17/20 Stop Date: 09/07/20 Status: OrderedPen [place], 31 G x 5 mm BD Ultra Fine III See Instructions, # 200 each, Refills 5, Tot. Refills 5, Maintenance, To inject insulin BID for DM II E11.9 PER CHRAI ANDREWC, 12/28/18 12:38:05 EDT, SHORT, Compound Start [...] 06/28/20 9:31:00 EST, Route to Pharmacy Electronically, [facility]/pharmacy #0693, 160.02, cm, 06/01/20 11:03:00 EDT, Height, 73.6, kg, 04/18/20 10:19:00 EDT,... Start Date: 06/28/20 Status: Orderedspironolactone 100 mg oral tablet 1, tablet, By Mouth, Daily, # 30 tablet, Refills 2, Tot. Refills 2, Maintenance, 05/16/20 16:31:00 EDT, Route to Pharmacy Electronically, [facility]/pharmacy #0693, 160.02, cm, 05/09/20 12:34:00 EDT, [...] 3 Refills, Maintenance, 10/20/19 9:16:00 EST, Capsule, [facility]/pharmacy #0693, resent from 08/14, 160.02, cm, 09/29/19 14:57:00 EST, Height, 81.6, kg, 07/27/19 14:52:00 EST, Dry Weight Start Date: 10/20/19 Status: OrderedWellbutrin XL 300 mg/24 hours oral tablet, extended release 1 tablet = 300 mg, By Mouth, Daily, DOSAGE INCREASE, # 30 tablet, 5 Refills, Maintenance, 07/03/20 15:20:00 EST, ER Tablet, [facility]/pharmacy #0693, 160.02, cm, 07/03/20 14:54:00 EST, [...] Osteoporosis(Confirmed) Active *[facility] [phone] GASTROENTEROLOGY PHYSICIAN Alpa Mcneilther(Confirmed) 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 50-70% bilaterally.3Patient's public health veterinarian is [facility] and patient sees Dr. Gume Mart Social History Social History Type Response Tobacco Other: last cigarette 0. Sex
--- OUTSIDE RECORDS SUMMARY | 2022-06-09 08:52 | XMS_ITS | Continuity of Care Document ---
:1950 Author Organization [facility] ([facility] Address [address] [place] [address]- Care Team Providers Name Role Phone Ranjeet Rushing MD Primary Care Physician Encounter [facility] Date(s): 03/26/21 - 04/25/21 [facility] [address] [place] [address]- Allergies, Adverse Reactions, Alerts Substance Reaction Severity [...] 1Result Comment: [05/28/2017] [facility]: [id number] History: [id number] Note: VIS GIVEN-DATED Admin Note: vis [id number] Note: VIS [id number] Note: VIS-[id number] History: [facility] [id number] History: [facility] [id number] Comment: [10/17/2015] PER NICO AT [id number] Note: VIS [id number] Note: VIS GIVEN Medications 12 inch Grab [...] 16:07:00 EDT, [facility] STORE 95564, 160, cm, 12/25/20 14:20:00 EDT, Height, 77.5, [...] tablet, 5 Refills, Maintenance, 03/12/21 10:51:00 EDT, [facility] STORE 66459, 160, cm, 02/27/21 13:50:00 EDT, Height, 79.6, [...] mg subcutaneous solution See Instructions, 40 mg S0qmfuc, 0 Refills, Maintenance, 10/23/20 13:46:00 EST, Partial [...] tablet, 0 Refills, Acute, 09/20/20 12:20:00 EST, [facility] STORE 02907, 90, TAKE 1 TABLET BY MOUTH DAILY, [...] 1 tablet By Mouth Daily at bedtime,PRN:for insomnia,Instr:[employer] brand, 160.02, cm, 04/18/20... Start Date: 04/24/20 [...] if th... 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 50-70% bilaterally.3Patient's oven stripper is [facility] and [facility] sees Dr. Gume Mart Social History Social History Type Response Tobacco Other: last cigarette 0. Sex
--- OUTSIDE RECORDS SUMMARY | 2022-06-09 08:52 | XMS_ITS | Continuity of Care Document ---
:1950 Author Organization [facility] Address [address] [place] [address], [address] [place] [address]- Care Team Providers Name Role Phone Aarti SUTTON, Jose Person Primary Care Physician Encounter [facility] Date(s): 08/28/20 - 09/04/[address], [address] [place] [address]- Attending Physician: Gabby Bernard DO Allergies, Adverse [...] (PPV23) (oldterm)11 07/19/08 Given 1Result Comment: [05/28/2017] [facility]: [id number] History: [id number] Note: VIS GIVEN-DATED Admin Note: vis amuwk2Mbnrz Note: VIS xqszw1Dmgkz Note: VIS-LOLZH4Ifbeebcj History: [facility] [id number] History: [facility] DEANGELO HOOK9Result Comment: [10/17/2015] PER NICO AT [id number] Note: VIS [id number] Note: VIS GIVEN Medications 12 inch Grab [...] 07/06/20 15:50:00 EST, Route to Pharmacy Electronically, [facility]/pharmacy #[id number], 160.02, cm, 07/03/20 14:54:00 EST, [...] 07/06/20 15:48:00 EST, Route to Pharmacy Electronically, [facility]/pharmacy #[id number], 160.02, cm, 07/03/20 14:54:00 EST,Height, [...] 3 Refills, Maintenance, 07/04/20 11:46:00 EST, Capsule, [facility]/pharmacy #[id number], 160.02, cm, 07/03/20 14:54:00 EST, Height, 73.6, kg, 04/18/20 10:19:00 EDT, Dry Weight Start Date: 07/04/20 Status: Orderedmagnesium oxide 400 mg oral tablet 1 tablet = 400 mg, By Mouth, Daily, PER RAJNI CARDONA, # 90 tablet, 0 Refills, Maintenance, 06/28/20 12:11:00 EST, [facility]/pharmacy #[id number], 160.02, cm, 06/01/20 11:03:00 EDT, [...] patient request Start Date: 08/30/20 Status: OrderedPen [place], 31 G x 5 mm BD Ultra [...] 06/28/20 9:31:00 EST, Route to Pharmacy Electronically, [facility]/pharmacy #[id number], 160.02, cm, 06/01/20 11:03:00 EDT, [...] # 9 Unknown, 5 Refills, 06/20/20 15:08:00EDT, [facility]/pharmacy #[id number], 160.02, cm, 06/01/20 11:03:00 EDT, [...] Osteoporosis(Confirmed) Active *[facility] 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 50-70% bilaterally.3Patient's manager land is [facility] and patient sees Dr. Gume Mart Vital Signs Most recent to oldest [Reference Range]: 1 Height 160 cm (08/24/20 1:38 PM) Weight 71.3 kg (08/24/20 1:38 PM) Body Mass Index [18.5-24.99] 27.85 *H* (08/24/20 1:38 PM) Social History Social History Type Response Tobacco Other: last cigarette 0. Sex
--- OUTSIDE RECORDS SUMMARY | 2022-06-09 08:52 | XMS_ITS | Continuity of Care Document ---
:1950 Author Organization [facility] Address [address] [place] [address]- Care Team Providers Name Role Phone Ranjeet Rushing MD Primary Care Physician [facility] Date(s): 11/27/21 - 12/04/21 [facility] [address] [place] [address]- Attending Physician: Chari Grey NP Referring Physician: [...] (PPV23) (oldterm)11 07/19/08 Given 1Result Comment: [05/28/2017] [facility]: [id number] History: [id number] Note: VIS GIVEN-DATED Admin Note: vis [id number] Note: VIS gnvyl1Shcfk Note: VIS-CARXJ1Rtnptitb [place] [facility] [id number] History: [facility] [id number] Comment: [10/17/2015] PER NICO AT [id number] Note: VIS [id number] Note: VIS GIVEN Medications 12 inch Grab [...] Maintenance, 05/05/20 14:02:00 EDT, Powder, [facility]/pharmacy #[id number], 2 puffs Inhalation Every 6 hours,PRN:as needed, 160.02, cm, 05/05/20 13:43:00 EDT, Height, 73.6, kg, 04/18/20 10:1... Start Date: 05/05/20 Status: Orderedalendronate 70 mg oral tablet 1 tablet, By Mouth, Every week, # 12 tablet, 6 Refills, Maintenance, 01/09/21 16:07:00 EDT, [facility], 160, cm, 12/25/20 14:20:00 EDT, Height, 77.5, kg, 10/05/20 14:31:00 EST, Dry Weight Start Date: 01/09/21 Status: Orderedallopurinol 300 mg oral tablet 1, tablet, By Mouth, Daily, # 90 tablet, Refills 1, Route to Pharmacy Electronically, [facility], 160, cm, 06/19/21 13:57:00 EDT, Height, 77.27, kg, 03/24/21 20:58:00 EDT, Dry Weight Start Date: 07/09/21 Status: OrderedBACK BRACE BACK BRACE, See Instructions, # 1 each, Refills 0, Tot. Refills 0, Maintenance, DX BACK PAIN M54.9 DANTE LIFETIME HT 5'3 WT 182 LB, 07/23/16 14:35:27, Compound Start Date: 07/23/16 Status: OrderedBD UF SHORT PEN NEEDLE [id number] BD UF SHORT PEN NEEDLE [id number], See Instructions, # 200 Unknown, 5 Refills, USE TO INJECT INSULIN TWICE A DAY, 160, cm, 11/27/21 14:08:00 EDT, Height, 74.8, kg, 11/01/21 15:05:00 EST, Dry Weight Start Date: 11/30/21 Status: OrderedbuPROPion 300 mg/24 hours (XL) oral tablet, extended release 1 tablet, By Mouth, Daily, # 30 tablet, 5 Refills, Maintenance, 08/30/21 7:54:00 EST, [facility]/pharmacy #[id number], 160, cm, 07/26/21 10:45:00 EST, Height, [...] tablet, 1 Refills, Maintenance,11/13/21 15:13:00 EDT, Tablet, [facility]/pharmacy #[id number], Partial fill upon patient request if [...] 1, Route to Pharmacy Electronically, [facility], 160, cm, 10/15/21 15:03:00 EST, Height, 75, kg, 09/14/21 11:51:00 EST, Dry Weight Start Date: 10/16/21 Status: OrderedLyrica 150 mg oral capsule 1 capsule = 150 mg, By Mouth, 2 times a day, DOSAGE INCREASE, # 60 capsule, 3 Refills, Maintenance, 11/12/21 16:27:00 EDT, Capsule, [facility]/pharmacy #[id number], 160, cm, 11/01/21 15:12:00 EST, Height, 74.8, kg,11/01/21 15:05:00 EST, Dry Weight Start Date: 11/12/21 Status: Orderedmagnesium oxide 400 mg (240 mg elemental magnesium) oral tablet 1 tablet, By Mouth, Daily, # 90 tablet, 0 Refills, Acute, 09/20/20 12:20:00 EST, [facility], 90, TAKE 1 TABLET BY MOUTH DAILY, 160, cm, 09/12/20 14:03:00 EST, Height, 71.3, kg, 08/08/20 7:00:00 EST, Dry Weight Start Date: 09/20/20 Status: Orderedmagnesium oxide 400 mg oral tablet 1 tablet = 400 mg, By Mouth, Daily, # 100 tablet, 2 Refills, Maintenance, 06/05/21 11:32:00 EDT, Tablet, [facility]/pharmacy #[id number], Partial fill upon patient request if the prescription is for a schedule II opioid drug., 160, cm, 05/21/21 11:03:00 EDT, Heigh... Start Date: 06/05/21 Status: OrderedMelatonin 3 mg oral tablet 1 tablet = 3 mg, By Mouth, Daily at bedtime, PRN for insomnia, [facility], # 90 tablet, 3 Refills, Maintenance, 10/17/21 12:02:00 EST, Tablet, [facility]/pharmacy #[id number], 1 tablet By Mouth Daily at [...] EDT, Injec... Start Date: 06/11/21 Status: OrderedPen [place], 31 G x 5 mm BD [...] 09/15/21 17:53:00 EST, Route to Pharmacy Electronically, [facility]/pharmacy #[id number], 160, cm, 09/14/21 11:51:00 EST, Height, [...] EST, Route to Pharmacy Electronically, [facility]/pharmacy #[id number], Partial fill upon patient request if the prescription is for a schedule II opioid thomas... 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 50-70% bilaterally.3Patient's bathhouse attendant is [facility] and patient sees Dr. Gume Mart Vital Signs Most recent to oldest [Reference Range]: 1 Height 160 cm (11/27/21 2:08 PM) Social History Social History Type Response Smoking Status Former smoker, quit more mark n 30 days ago entered on: 2/4/22 Sex
--- OUTSIDE RECORDS SUMMARY | 2022-06-09 08:52 | XMS_ITS | Continuity of Care Document ---
:1950 Author Organization [facility] Address [address] [place] [address]- Care Team Providers Name Role Phone Kristan SUTTON, Ranjeet Beatty Primary Care Physician Encounter [facility] Date(s): 09/07/21 - 09/14/21 [facility] [address] [place] [address]- Attending Physician: Matilda LOZADA, Chari Santos Referring [...] Given 1Result Comment: [05/28/2017] [facility]: [id number] History: [id number] Note: VIS GIVEN-DATED Admin Note: vis [id number] Note: VIS nxvuu2Cadri Note: VIS-ULBTH9Sehlngqr History: [facility] PM4Kyvhlkek History: [facility] TW9Pmetnn Comment: [10/17/2015] PER NICO AT [id number] Note: VIS [id number] Note: VIS GIVEN Medications 12 inch Grab [...] Refills, Maintenance, 01/09/21 16:07:00 EDT, [facility], 160, cm, 12/25/20 14:20:00 EDT, Height, 77.5, kg, 10/05/20 14:31:00 EST, Dry Weight Start Date: 01/09/21 Status: Orderedallopurinol 300 mg oral tablet 1, tablet, By Mouth, Daily, # 90 tablet, Refills 1, Route to Pharmacy Electronically, [facility], 160, cm, 06/19/21 13:57:00 EDT, Height, 77.27, [...] 5 Refills, Maintenance, 08/30/21 7:54:00 EST, [facility]/pharmacy #[id number], 160, cm, 07/26/21 10:45:00 EST, Height, [...] Refills, Maintenance, 02/08/21 9:52:00 EDT, Tablet, [facility]/pharmacy #0693, 160, cm, 01/25/21 14:11:00 EDT, Height, [...] 9:05:00 EDT, Route to Pharmacy Electronically, [facility]/pharmacy #[id number], 160, cm, 01/25/21 14:11:00 EDT, Height, 77.5, kg, 10/05/20 14:31:00 EST, Dry Weight Start Date: 02/06/21 Stop Date: 08/05/21 Status: OrderedLyrica 150 mg oral capsule 1 capsule = 150 mg, By Mouth, 2 times a day, DOSAGE INCREASE, # 60 capsule, 3 Refills, Maintenance, 07/09/21 14:12:00 EST, Capsule, [facility]/pharmacy #0693, 160, cm, 06/19/21 13:57:00 EDT, Height, 77.27, kg, 03/24/21 20:58:00 EDT, Dry Weight Start Date: 07/09/21 Status: Orderedmagnesium oxide 400 mg (240 mg elemental magnesium) oral tablet 1 tablet, By Mouth, Daily, # 90 tablet, 0 Refills, Acute, 09/20/20 12:20:00 EST, [facility] STORE 04753, 90, TAKE 1 TABLET BY MOUTH DAILY, 160, cm, 09/12/20 14:03:00 EST, Height, 71.3, kg, 08/08/20 7:00:00 EST, Dry Weight Start Date: 09/20/20 Status: Orderedmagnesium oxide 400 mg oral tablet 1 tablet = 400 mg, By Mouth, Daily, # 100 tablet, 2 Refills, Maintenance, 06/05/21 11:32:00 EDT, Tablet, [facility]/pharmacy #0693, Partial fill upon patient request if [...] EDT, Injec... Start Date: 06/11/21 Status: OrderedPen [place], 31 G x 5 mm BD Ultra [...] 15:06:00 EDT, Route to Pharmacy Electronically, [facility]/pharmacy #[id number], 160, cm, 12/25/20 14:20:00 EDT, Height, 77.5, kg, 10/05/20 14:31:00 EST, . Start Date: 01/09/21 Status: Orderedspironolactone 100 mg oral tablet 100 mg, 1, tablet, By Mouth, Daily, # 90 tablet, Refills 1, Tot. Refills 1, Maintenance, 07/23/21 13:10:00 EST, Route to Pharmacy Electronically, [facility]/pharmacy #[id number], Partial fill upon patient request if the prescription is for a schedule II opioid geovanny. Start Date: 07/23/21 Stop Date: 01/19/22 Status: [...] Refills, Maintenance, 04/19/21 11:35:00 EDT, Powder, [facility]/pharmacy #0693, Partial fill upon patient request if [...] Refills, Soft Stop, 07/26/21 11:05:00 EST, [facility]/pharmacy #0693, 160, cm, 07/26/21 10:45:00 EST, Height,77.27, [...] ONCE DAILY, # 9 Unknown, 5 Refills, [facility] ST[facility] 377[facility], 160, cm, 09/07/21 15:03:00 EST, Height, 77.27, kg, 03/24/21 20:58:00 EDT, Dry Weight Start Date: 09/11/21 Status: OrderedVitamin D3 1000 intl units oral capsule 1 capsule = 1,000 International_Units, By Mouth, Daily, # 90 capsule, 1 Refills, Maintenance, 09/25/20 7:44:00 EST, Capsule, [facility]/pharmacy #[id number], resent from 08/14, 160, cm, 09/12/20 14:03:00 EST, Height, 71.3, kg, 08/08/20 7:00:00 EST, Dry Weight Start Date: 09/25/20 Status: OrderedZoloft 100 mg oral tablet 2 tablet = 200 mg, By Mouth, Daily, DOSAGE INCREASE, # 60 tablet, 6 Refills, Maintenance, 07/26/21 11:03:00 EST, Tablet, [id number], Partial fill upon patient request if the [...] myelopathy(Confirmed) OA (osteoarthritis), Active cervical(Confirmed) Osteoporosis(Confirmed) Active *[facility] 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 50-70% bilaterally.3Patient's mesmerist is [facility] and patient sees Dr. Gume Mart Vital Signs Most recent to oldest [Reference Range]: 1 Height 160 cm (09/07/21 3:03 PM) Weight 72.7 kg (09/07/21 3:03 PM) Body Mass Index [18.5-24.99] 28.4 *H* (09/07/21 3:03 PM) Social History Social History Type Response Tobacco Other: last cigarette 0. Sex
--- OUTSIDE RECORDS SUMMARY | 2022-06-09 08:52 | XMS_ITS | Continuity of Care Document ---
:1950 Author Organization [facility] Address [address] [place] [address]- Care Team Providers Name Role Phone Aarti SUTTON, Jose Person Primary Care Physician Encounter [facility] Date(s): 08/07/20 - 08/17/[address] [address]- Encounter Diagnosis Cervical stenosis of spinal canal (Final) - 08/07/20 Discharge Disposition: A-Transfer SNF Attending Physician: Magnolia Perez MD Admitting Physician: Vi Salamanca MD Referring Physician: Not on Staff, Referring [...] (oldterm)11 07/19/08 Given 1Result Comment: [05/28/2017] [facility]: [id number] History: [id number] Note: VIS GIVEN-DATED Admin Note: vis [id number] Note: VIS [id number] Note: VIS-[id number] [place] [facility] [id number] History: [facility] [id number] Comment: [10/17/2015] PER NICO AT [id number] Note: VIS [id number] Note: VIS GIVEN Medications 12 inch Grab [...] 11 Refills, Maintenance, 05/05/20 14:02:00 EDT, Powder, [facility]/pharmacy #[id number], 2 puffs Inhalation Every 6 hours,PRN:as needed, 160.02, cm, 05/05/20 13:43:00 EDT, Height, 73.6, kg, 04/18/20 10:1... Start Date: 05/05/20 Status: Orderedalendronate 70 mg oral tablet 1 tablet, By Mouth, Every week, # 12 tablet, 0 Refills, Maintenance, 06/01/20 9:05:00 EDT, [facility]/pharmacy #[id number], 160.02, cm, 05/09/20 12:34:00 EDT, Height, 73.6, kg, 04/18/20 10:19:00 EDT, Dry Weight Start Date: 06/01/20 Status: Orderedallopurinol 300 mg oral tablet 300 mg, 1, tablet, By Mouth, Daily, # 90 tablet, Refills 0, Tot. Refills 0, Maintenance, 07/06/20 15:50:00 EST, Route to Pharmacy Electronically, [facility]/pharmacy #[id number], 160.02, cm, 07/03/20 14:54:00 EST, [...] 07/06/20 15:48:00 EST, Route to Pharmacy Electronically, [facility]/pharmacy #[id number], 160.02, cm, 07/03/20 14:54:00 EST,Height, 73.6, kg, 04/18/20 10:19:00 EDT, Dry Weight Start Date: 07/06/20 Stop Date: 10/04/20 Status: OrderedLyrica 150 mg oral capsule 1 capsule = 150 mg, By Mouth, 2 times a day, DOSAGE INCREASE, # 60 capsule, 3 Refills, Maintenance, 07/04/20 11:46:00 EST, Capsule, [facility]/pharmacy #[id number], 160.02, cm, 07/03/20 14:54:00 EST, Height, 73.6, kg, 04/18/20 10:19:00 EDT, Dry Weight Start Date: 07/04/20 Status: Orderedmagnesium oxide 400 mg oral tablet 1 tablet = 400 mg, By Mouth, Daily, PER RAJNI CARDONA, # 90 tablet, 0 Refills, Maintenance, 06/28/20 12:11:00 EST, [facility]/pharmacy #[id number], 160.02, cm, 06/01/20 11:03:00 EDT, Height, 73.6, kg, 04/18/20 10:19:00 EDT, Dry Weight Start Date: 06/28/20 Status: OrderedMelatonin 3 mg oral tablet 1 tablet = 3 mg, By Mouth, Daily at bedtime, PRN for insomnia, [facility], # 90 tablet, 3 Refills, Maintenance, 04/24/20 9:53:00 EDT, Tablet, [facility]/pharmacy #[id number], 1 tablet By Mouth Daily [...] Start Date: 08/17/20 Stop Date: 09/07/20 Status: OrderedoxyCODONE 5 mg oral tablet 5 mg, Tablet, By Mouth, Every 5 hours, PRN for Pain , Moderate, Routine, 08/12/20 13:05:00 EST Start Date: 08/12/20 Stop Date: 08/17/20 Status: DiscontinuedPen [place], 31 G x 5 mm BD Ultra [...] 9:31:00 EST, [id number] 160[facility], cm, 06/01/20 11:03:00 EDT, Height, 73.6, kg, 04/18/20 10:19:00 EDT,... Start Date: 06/28/20 Status: Orderedspironolactone 100 mg oral tablet 1, tablet, By Mouth, Daily, # 30 tablet, Refills 2, Tot. 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 Gume Mart Results Radiology Reports Exam Date Time Procedure Performing Provider Status 08/15/20 10:16 AM Chest Portable Zari Argueta; Nadine (Verified ) Notes:(Chest Portable) Reason For Exam: Shortness of BreathRESULT: Chest Portable Chest Portable INDICATION: Dyspnea COMPARISON: 08/10/2020, 07/17/2020 FINDINGS: LINES AND TUBES: None. LUNGS AND PLEURA: The superior aspects of both lungs are partially obscured by overlying c-collar. Low lung volumes. New left lower lung haziness with partial obscuration of left hemidiaphragm, which may represent atelectasis, pneumonia, and/or small pleural effusion. No right pleural effusion. No definite pneumothorax. HEART, MEDIASTINUM AND SUZIE: Heart is normal in size. Normal upper mediastinal and hilar contour. BONES AND SOFT TISSUES: No acute abnormality. IMPRESSION: New left lower lobe airspace opacity which may represent atelectasis, pneumonia, and/or small pleural effusion. I have personally reviewed the images and I agree with this report. WSN: [id number] Ordering Physician: Sherry Jo Dictated By: Ziggy Pineda DO Dictated Date/Time: 08/15/20 11:10 a Reviewed By: Kalyani Nesbitt MD Signed By: Kalyani Nesbitt MD Signed Date/Time: 08/15/20 11:15 am Transcribed By: JOSE Transcribed Date/Time: 08/15/20 10:38 am Exam Date Time Procedure Performing Provider Status 08/11/20 4:10 PM C-Arm > 1 Hour Luz Maria Hutchison; Nadine (Verif ied) Notes:(C-Arm > 1 Hour) Reason For Exam: cervical stenosisRESULT: C-Arm > 1 Hour Cervical Spine 3 Views or Less, C-Arm > 1 Hour INDICATION: Reason: cervical stenosis; Special Instructions: TT-2hrs, FT-.26s COMPARISONS: None TECHNIQUE: Fluoroscopy support was provided. There was no radiologist in attendance. Fluoroscopy time: 26.1 seconds Technologist time: 2 hours Exposure: 2.28 mGy 6 fluoroscopic images were stored. FINDINGS: Anterior cervical fusion hardware spanning from C3 to C6 is partially visualized, with anterior plate, screws, and interbody spacers, as seen on prior imaging. Intraoperative images demonstrate posterior approach C1-C4 fixation. Screws are present bilaterally at C1, on the left at C2 and C3, and on the right at C4. Laminectomies have been performed at these levels. See operative report for further detail. IMPRESSION: See above. WSN: [id number] Ordering Physician: Gabby Bernard Dictated By: Paty Glez MD Dictated Date/Time: 08/11/20 5:00 pm Reviewed By: Paty Glez MD Signed By: Paty Glez MD Signed Date/Time: 08/11/20 5:00 pm Transcribed By: JOSE Transcribed Date/Time: 08/11/20 4:54 pm Exam Date Time Procedure Performing Provider Status 08/11/20 4:10 PM Cervical Spine 3 Views or Less Bronwyn Hutchison ad; Auth (Verified) Notes:(Cervical Spine 3 Views or Less) Reason For Exam: cervical stenosisRESULT: Cervical Spine 3 Views or Less Cervical Spine 3 Views or Less, C-Arm > 1 Hour INDICATION: Reason: cervical stenosis; Special Instructions: TT-2hrs, FT-.26s COMPARISONS: None TECHNIQUE: Fluoroscopy support was provided. There was no radiologist in attendance. Fluoroscopy time: 26.1 seconds Technologist time: 2 hours Exposure: 2.28 mGy 6 fluoroscopic images were stored. FINDINGS: Anterior cervical fusion hardware spanning from C3 to C6 is partially visualized, with anterior plate, screws, and interbody spacers, as seen on prior imaging. Intraoperative images demonstrate posterior approach C1-C4 fixation. Screws are present bilaterally at C1, on the left at C2 and C3, and on the right at C4. Laminectomies have been performed at these levels. See operative report for further detail. IMPRESSION: See above. WSN: [id number] Ordering Physician: Gabby Bernard Dictated By: Paty Glez MD Dictated Date/Time: 08/11/20 5:00 pm Reviewed By: Paty Glez MD Signed By: Paty Glez MD Signed Date/Time: 08/11/20 5:00 pm Transcribed By: JOSE Transcribed Date/Time: 08/11/20 4:54 pm Exam Date Time Procedure Performing Provider Status 08/10/20 6:39 AM Chest Portable Jessika Mejia ([facility] ed) Notes:(Chest Portable) Reason For Exam: PreopRESULT: Chest Portable Chest Portable performed upright at 5:38 AM INDICATION: Preop cervical fusion for cervical stenosis. History of diabetes, chronic kidney disease, hypertension and hyperlipidemia. COMPARISON: Multiple prior chest x-rays, the most recent of which is dated 07/17/2020, CT chest 06/28/2019. FINDINGS: LINES AND TUBES: None. LUNGS AND PLEURA: Mild bibasilar atelectasis. Normal pulmonary vascularity. No pleural effusion. No pneumothorax. HEART, MEDIASTINUM AND SUZIE: Heart is normal in size. Aorta is calcified. BONES AND SOFT TISSUES: No acute abnormality. Partially imaged cervical spine hardware. IMPRESSION: Mild bibasilar atelectasis. No focal consolidation. I have personally reviewed the images and I agree with this report. WSN: [id number] Ordering Physician: Nella Garcia Dictated By: Natali Wright MD Dictated Date/Time: 08/10/20 9:05 am Reviewed By: Mickie Croft MD Signed By: Mickie Croft MD Signed Date/Time: 08/10/20 9:10 am Transcribed By: JOSE Transcribed Date/Time: 08/10/20 8:44 am Vital Signs Most recent to oldest 1 2 3 [Reference Range]: Height 160 cm 160 cm 160 cm (08/17/20 10:44 AM) (08/17/20 7:41 AM) (08/16/20 3:54 AM) Weight 71.3 kg 71.3 kg 71.5 kg (08/11/20 11:39 AM) (08/08/20 2:00 AM) (08/07/20 9:47 PM) Oxygen Saturation 93 % 95 % 94 % [94-100 %] *L* (08/17/20 7:41 AM) (08/17/20 12: 15 AM) (08/17/20 10:44 AM) Pulse Rate [55-90 bpm] 112 bpm 81 bpm 105 bpm *H* (08/17/20 7:41 AM) *H* (08/17/20 10:44 AM) (08/17/20 12 :15 AM) Body Mass Index 27.85 27.85 27.93 [18.5-24.99] *H* *H* *H* (08/11/20 11:39 AM) (08/08/20 2:00 AM) (08/07/20 9:47 PM) Blood Pressure 114/51 mm Hg 118/59 mm Hg 118/54 mm Hg [90-138/55-84 mm Hg] (08/17/20 10:44 AM) (08/17/20 7:41 AM) ( 12:15 AM) Respiratory Rate [16-30 17 br/min 17 br/min 17 br/mi n br/min] (08/17/20 1:27 PM) (08/17/20 10:44 AM) (08/17/20 8:32 AM) Temperature [96.8-100.4 98.1 DegF 97.2 DegF 98.1 Deg F DegF] (08/17/20 10:44 AM) (08/17/20 7:41 AM) (08/17/20 12:15 AM) Liters per Minute 0 L/min 0 L/min 3 L/min (08/16/20 12:00 PM) (08/16/20 7:00 AM) (08/15/20 5:16 PM) Mode of Delivery Room air Room air Room air (Oxygen) (08/17/20 10:44 AM) (08/17/20 7:41 AM) (08/17/20 12:15 AM) Blood pressure sites Arm, left Arm, left Arm, right (08/17/20 10:44 AM) (08/17/20 7:41 AM) (08/17/20 12:15 AM) Temperature Route Temporal Temporal Temporal (08/17/20 10:44 AM) (08/17/20 7:41 AM) (08/17/20 12:15 AM) Dry Weight 71.3 kg 71.5 kg 71.5 kg (08/08/20 2:00 AM) (08/07/20 9:47 PM) (08/07/20 6:12 PM) Weight Obtained Via Patient/family stated (08/07/20 1:22 PM) Dry Weight Obtained Via Patient/family stated (08/07/20 1:22 PM) Social History Social History Type Response Tobacco Other: last cigarette 0. Sex
--- OUTSIDE RECORDS SUMMARY | 2022-06-09 08:52 | XMS_ITS | Continuity of Care Document ---
:1950 Author Organization [facility] Address [address] [place] [address]- Care Team Providers Name Role Phone Ranjeet Del Rosario MD Primary Care Physician [place] [facility] [place] - 10/30/19 [facility] [address] [place] [address]- [facility] Attending Physician: Evans Brock Admitting Physician: Evans [...] Given 1Result Comment: [05/28/2017] [facility]: [id number] History: [id number] Note: VIS GIVEN-DATED Admin Note: vis [id number] Note: VIS [id number] Note: VIS-[id number] [place] [facility] [id number] History: [facility] Isaac Comment: [10/17/2015] PER NICO AT [id number] Note: VIS [id number] Note: VIS GIVEN Medications albuterol 90 mcg/inh [...] TAKE 1 TABLET BY MOUTH EVERY DAY, [facility]/pharmacy #[id number] Start Date: 06/09/19 Status: OrderedBACK [...] TAKE 1 CAPSULE BY MOUTH EVERY DAY, [facility]/pharmacy #[id number] Start Date: 04/20/19 Status: Orderedcyanocobalamin [...] each, 0 Refills, Maintenance, 01/01/19 14:36:12 EDT, [place], 2 sprays Nares, Both Daily in AM [...] 06/02/19 Status: Orderedgabapentin 300 mg oral capsule 300 mg, 1, capsule, By Mouth, 3 times a day, Refills 0, Maintenance, 10/20/19 14:53:00 EST Start Date: 10/20/19 Status: OrderedLyrica 75 mg oral capsule 1 capsule = 75 mg, By Mouth, 2 times a day, # 60 capsule, 5 Refills, Maintenance, 09/29/19 15:33:00 EST, Capsule, [facility]acy [id number], 160.02, cm, 09/29/19 14:57:00 EST, Height, [...] 1 Refills, Maintenance, 10/15/19 9:53:00 EST, Tablet, [facility]/pharmacy #[id number], 160.02, cm, 09/29/19 14:57:00 EST, Height, 81.6, kg, 07/27/19 14:52:00 EST, Dry Weight Start Date: 10/15/19 Status: OrderedMethotrexate 0 Refills, Maintenance, 08/11/18 15:20:54 [...] Call PCP... Start Date: 10/29/17 Status: OrderedPen [place], 31 G x 5 mm BD Ultra [...] 07/20/19 16:14:12 EST, Route to Pharmacy Electronically, [id number], [facility]/pharmacy #[id number] Start Date: 07/20/19 Status: Orderedspironolactone 100 mg oral tablet See Instructions, # 30 tablet, Refills 5 Tot. Refills 5, TAKE 1 TABLET BY MOUTH EVERY DAY, [facility]/pharmacy #[id number] Start Date: 06/23/19 Status: OrderedtraMADol 50 mg oral tablet See Instructions, TAKE 1 TO 2 TABLETS BY MOUTH EVERY 6 HOURS, # 240 tablet, 1 Refills, Soft Stop, 08/23/19 16:39:00 EST, [facility]/pharmacy #[id number], 160.02, cm, 08/16/19 12:59:00 EST, [...] 74 UNITS DAILY, MAX DOSE 140 UNITS, [facility]/pharmacy #[id number] Start Date: 04/20/19 Status: Orderedvarenicline 1mg tablet 1 tablet = 1 mg, By Mouth, 2 times a day, # 60 tablet, 0 Refills, Maintenance, 10/14/19 12:56:00 EST, Tablet, [facility]/pharmacy #[id number], 160.02, cm, 09/29/19 14:57:00 EST, Height, 81.6, kg, 07/27/19 14:52:00 EST, Dry Weight Start Date: 10/14/19 Status: OrderedVictoza 18 mg/3 mL subcutaneous solution [...] (osteoarthritis), Active cervical(Confirmed) Osteoporosis(Confirmed) Active *[facility] [phone] HISTORICAL ARCHEOLOGIST Alpa Active Nathaniel(Confirmed) Swelling of lower leg(Confirmed) Active Athlete's foot(Confirmed) Active Varicose veins(Confirmed) Active Venous stasis(Confirmed) Active 1Colonoscopy 2008 positive polyp ??2, repeat 2013.2Carotid ultrasound 2015 showing bilateral noncritical carotid stenosis. 50-70% bilaterally.3Patient's hardware installer is [facility] and patient sees Dr. Gume aMrt Social History Social History Type Response Smoking Status Current some day smoker; Typ e: Cigarettes; Other: less than 1/2 pack a day; Tobacco use times per day: 1/2 pack a day; entered on: 02/19/17 Sex
--- OUTSIDE RECORDS SUMMARY | 2022-06-09 08:52 | XMS_ITS | Continuity of Care Document ---
:1950 Author Organization [facility] Address [address] [place] [address]- Care Team Providers Name Role Phone Ranjeet Rushing MD Primary Care Physician Encounter [facility] Date(s): 05/04/20 - 06/03/20 [facility] [address] [place] [id number]- [facility] Allergies, Adverse Reactions, Alerts Substance Reaction Severity [...] Given 1Result Comment: [05/28/2017] [facility]: [id number] History: ZMK1Kfkhe Note: VIS GIVEN-DATED Admin Note: vis [id number] Note: VIS [id number] Note: VIS-[id number] [place] [facility] [place] [facility] DEANGELO Gray Comment: [10/17/2015] PER NICO AT [id number] Note: VIS [id number] Note: VIS GIVEN Medications albuterol 90 mcg/inh inhalation powder 2 puffs, Inhalation, Every 6 hours, PRN as needed, # 1 each, 11 Refills, Maintenance, 05/05/20 14:02:00 EDT, Powder, [facility]/pharmacy #[id number], 2 puffs Inhalation Every 6 hours,PRN:as needed, 160.02, cm, 05/05/20 13:43:00 EDT, Height, 73.6, kg, 04/18/20 10:1... Start Date: 05/05/20 Status: Orderedalendronate 70 mg oral tablet 1 tablet, By Mouth, Every week, # 12 tablet, 0 Refills, Maintenance, 06/01/20 9:05:00 EDT, [facility]/pharmacy #[id number], 160.02, cm, 05/09/20 12:34:00 EDT, Height, 73.6, kg, 04/18/20 10:19:00 EDT, Dry Weight Start Date: 06/01/20 Status: Orderedallopurinol 300 mg oral tablet 1, tablet, By Mouth, Daily, # 90 tablet, Refills 0, Tot. Refills 0, Maintenance, 04/05/20 9:38:00 EDT, [id number], cm, 03/29/20 10:57:00 EDT, Height, [...] 0 Refills, Maintenance, 06/01/20 12:01:00 EDT, Capsule, [facility]/pharmacy #0693, 160.02, cm, 06/01/20 11:03:00 [...] TAKE 1 CAPSULE BY MOUTH EVERY DAY, [facility]/pharmacy #[id number] Start Date: 04/20/19 Status: Orderedcyanocobalamin 500 mcg oral tablet 1 tablet = 500 mcg, By Mouth, Daily, # 90 tablet, 0 Refills, Maintenance, 02/11/20 13:33:00 EDT, Tablet, [facility]/pharmacy #0693, 160.02, cm, 02/11/20 13:03:00 [...] 04/07/20 11:50:00 EDT, Route to Pharmacy Electronically, [facility]/pharmacy #[id number], 160.02, cm, 03/29/20 10:57:00 EDT,Height, 81.6, kg, 07/27/19 14:52:00 EST, Dry Weight Start Date: 04/07/20 Status: Orderedgabapentin 300 mg oral capsule 300 mg, 1, capsule, By Mouth, 3 times a day, # 90 capsule, Refills 5, Tot. Refills 5, Maintenance, 04/13/20 12:42:00 EDT, Route to Pharmacy Electronically, [facility]/pharmacy #[id number], 160.02, cm, 03/29/20 10:57:00 [...] 1 Refills, Maintenance, 05/12/20 14:54:00 EDT, Capsule, [facility]/pharmacy #0693, 160.02, cm, 05/09/20 12:34:00 [...] 3 Refills, Maintenance, 04/24/20 9:53:00 EDT, Tablet, [facility]/pharmacy #[id number], 1 tablet By Mouth [...] each, 5 Refills, Maintenance, 02/21/20 11:53:00 EDT, [facility]/pharmacy #[id number], 301-350: 12 units, 351-400: 14 units, 401-450: 1... Start Date: 02/21/20 Status: OrderedoxyCODONE 5 mg oral capsule 1 capsule = 5 mg, By Mouth, Every 6 hours, PRN as needed for pain, 0 Refills, Maintenance, 06/01/20 11:12:00 EDT, Capsule, Partial fill upon patient request Start Date: 06/01/20 Status: OrderedPen [place], 31 G x 5 mm BD Ultra [...] 07/20/19 16:14:12 EST, Route to Pharmacy Electronically, [id number], [facility]/pharmacy #[id number] Start Date: 07/20/19 Status: Orderedspironolactone 100 mg oral tablet 1, tablet, By Mouth, Daily, # 30 tablet, Refills 2, Tot. Refills 2, Maintenance, 05/16/20 16:31:00 EDT, Route to Pharmacy Electronically, [facility]/pharmacy #[id number], 160.02, cm, 05/09/20 12:34:00 EDT, Height, 73.6, kg, 04/18/20 10:19:00 EDT, Dry Weight Start Date: 05/16/20 Status: OrderedtraMADol 50 mg oral tablet See Instructions, PRN Pain , Severe, 1-2 tablets by mouth every 6 hours Schedule follow visit, # 240tablet, 1 Refills, Soft Stop, 05/19/20 16:27:00 EDT, [facility]/pharmacy #[id number], 160.02, cm, 05/09/20 12:34:00 [...] 5 Refills, Soft Stop, 12/16/19 15:45:00 EDT, [facility]/pharmacy #[id number], 160.02, cm, 11/02/19 15:34:00 EDT, Height, 81.6, kg, 07/27/19 14:52:00 EST, Dry Weight Start Date: 12/16/19 Status: OrderedVictoza 18 mg/3 mL subcutaneous solution See Instructions, INJECT 1.8 MG UNDER THE SKIN ONCE DAILY, # 9 Unknown, 0 Refills, Maintenance, [facility] STORE [id number], 160.02, cm, 05/09/20 12:34:00 EDT, Height, 73.6, kg, 04/18/20 10:19:00 EDT, Dry Weight Start Date: 05/26/20 Status: OrderedVitamin D3 1000 intl units oral capsule 1 capsule = 1,000 International_Units, By Mouth, Daily, # 90 capsule, 3 Refills, Maintenance, 10/20/19 9:16:00 EST, Capsule, [facility]/pharmacy #[id number], resent from 08/14, 160.02, cm, 09/29/19 14:57:00 EST, Height, 81.6, kg, 07/27/19 14:52:00 EST, Dry Weight Start Date: 10/20/19 Status: OrderedWellbutrin XL 150 mg/24 hours oral tablet, extended release 1 tablet = 150 mg, By Mouth, Every 24 hours, do not crush or chew, # 30 tablet, 6 Refills, Maintenance, 12/09/19 16:12:00 EDT, ER Tablet, [facility]/pharmacy #[id number], 160.02, cm, 11/02/19 15:34:00 [...] OA (osteoarthritis), Active cervical(Confirmed) Osteoporosis(Confirmed) Active *[facility] [phone] MOLDER INFLATED BALL Alpa Active Nathaniel(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 50-70% bilaterally.3Patient's heel varnisher is [facility] and patient sees Dr. Gume Mart Social History Social History Type Response Smoking Status Current some day smoker; Typ e: Cigarettes; Other: less than 1/2 pack a day; Tobacco use times per day: 1/2 pack a day; entered on: 02/19/17 Sex
--- OUTSIDE RECORDS SUMMARY | 2022-06-09 08:52 | XMS_ITS | Continuity of Care Document ---
:1950 Author Organization [facility] Address [address] [place] [address]- Care Team Providers Name Role Phone Ranjeet Del Rosario MD Primary Care Physician [facility] Date(s): 10/06/19 - 10/06/[address] [address]- [facility] Attending Physician: Amara Matson Allergies, Adverse Reactions, Alerts Substance Reaction Severity [...] (PPV23) (oldterm)11 07/19/08 Given 1Result Comment: [05/28/2017] [facility]: [id number] History: [id number] Note: VIS GIVEN-DATED Admin Note: vis [id number] Note: VIS kckkw0Tfgap Note: VIS-DICBK1Gffyfbsw History: [facility] [id number] History: [facility] DEANGELO Gray Comment: [10/17/2015] PER NICO AT [id number] Note: VIS [id number] Note: VIS GIVEN Medications albuterol 90 mcg/inh [...] TAKE 1 TABLET BY MOUTH EVERY DAY, [facility]/pharmacy #[id number] Start Date: 06/09/19 Status: OrderedBACK [...] each, 0 Refills, Maintenance, 01/01/19 14:36:12 EDT, [place], 2 sprays Nares, Both Daily in AM [...] 1 TABLET BY MOUTH TWICE A DAY, [facility]/pharmacy #[id number] Start Date: 06/02/19 Status: OrderedLyrica 75 mg oral capsule 1 capsule = 75 mg, By Mouth, 2 times a day, # 60 capsule, 5 Refills, Maintenance, 09/29/19 15:33:00 EST, Capsule, [facility]/pharmacy #[id number], 160.02, cm, 09/29/19 14:57:00 EST, [...] 0 Refills, Maintenance, 09/16/19 13:26:00 EST, Tablet, [facility]/pharmacy #[id number], 160.02, cm, 09/06/19 12:51:00 EST, Height, 81.6, kg, 07/27/... Start Date: 09/16/19 Status: OrderedMethotrexate 0 Refills, [...] Call PCP... Start Date: 10/29/17 Status: OrderedPen [place], 31 G x 5 mm BD [...] 07/20/19 16:14:12 EST, Route to Pharmacy Electronically, [id number], [facility]/pharmacy #[id number] Start Date: 07/20/19 Status: Orderedspironolactone 100 mg oral tablet See Instructions, # 30 tablet, Refills 5 Tot. Refills 5, TAKE 1 TABLET BY MOUTH EVERY DAY, [facility]/pharmacy #[id number] Start Date: 06/23/19 Status: OrderedtraMADol 50 mg oral tablet See Instructions, TAKE 1 TO 2 TABLETS BY MOUTH EVERY 6 HOURS, # 240 tablet, 1 Refills, Soft Stop, 08/23/19 16:39:00 EST, [facility]/pharmacy #[id number], 160.02, cm, 08/16/19 12:59:00 EST, [...] 74 UNITS DAILY, MAX DOSE 140 UNITS, [facility]/pharmacy #[id number] Start Date: 04/20/19 Status: Orderedvarenicline 1mg tablet 1 tablet = 1 mg, By Mouth, 2 times a day, # 60 tablet, 0 Refills, Maintenance, 09/14/19 8:24:00 EST,Tablet, [facility]/pharmacy #[id number], 160.02, cm, 09/06/19 12:51:00 EST, [...] cervical(Confirmed) Osteoporosis(Confirmed) Active *[facility] [phone] BENEFITS COORDINATOR Alpa Active Nathaniel(Confirmed) Swelling of lower leg(Confirmed) Active Athlete's foot(Confirmed) Active Varicose veins(Confirmed) Active Venous stasis(Confirmed) Active 1Colonoscopy 2008 positive polyp ??2, repeat 2013.2Carotid ultrasound 2015 showing bilateral noncritical carotid stenosis. 50-70% bilaterally.3Patient's search engine marketing specialist is [facility] and patient sees Dr. Gume Mart Social History Social History Type Response Smoking Status Current some day smoker; Typ e: Cigarettes; Other: less than 1/2 pack a day; Tobacco use times per day: 1/2 pack a day; entered on: 02/19/17 Sex
--- OUTSIDE RECORDS SUMMARY | 2022-06-09 08:53 | XMS_ITS | Continuity of Care Document ---
:1950 Author Organization [facility] Address [address] [place] [address]- Care Team Providers Name Role Phone Kristan SUTTON, Ranjeet Beatty Primary Care Physician [facility]counter [facility] Date(s): 01/23/21 - 02/22/21 [facility] [address] [place] [address]- Allergies, Adverse Reactions, Alerts Substance Reaction Severity [...] (oldterm)11 07/19/08 Given 1Result Comment: [05/28/2017] [facility]: [id number] History: [id number] Note: VIS GIVEN-DATED Admin Note: vis oqksa5Gphud Note: VIS [id number] Note: VIS-OFSAO1Sigulxnm History: [facility] [id number] History: [facility] [id number] Comment: [10/17/2015] PER NICO AT [id number] Note: VIS [id number] Note: VIS GIVEN Medications 12 inch Grab Bars 12 inch Grab Bars, See Instructions, # 2 each, Refills 0, Tot. Refills 0, Maintenance, Grab bars : Length 12inches Use as directed DX Unsteady Gait ICD10 R26.81 HT: 5'3 Weight 162lbs Length of need Lifetime, 07/07/20 11:45:00 EST, Supply Start Date: 07/07/20 Status: OrderedADMIT [facility] ADMIT TO [facility], See Instructions, # 1 each, Refills 0, Tot. Refills 0, Maintenance, FAX [phone] ADMIT TO INTERMEDIATE, PT, OT. 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 Start Date: 10/17/20 Status: Orderedalbuterol 90 mcg/inh inhalation powder 2 puffs, Inhalation, Every 6 hours, PRN as needed, # 1 each, 11 Refills, Maintenance, 05/05/20 14:02:00 EDT, Powder, [facility]/pharmacy #[id number], 2 puffs Inhalation Every 6 hours,PRN:as needed, 160.02, cm, 05/05/20 13:43:00 EDT, Height, 73.6, kg, 04/18/20 10:1... Start Date: 05/05/20 Status: Orderedalendronate 70 mg oral tablet 1 tablet, By Mouth, Every week, # 12 tablet, 6 Refills, Maintenance, 01/09/21 16:07:00 EDT, [facility], 160, cm, 12/25/20 14:20:00 EDT, Height, 77.5, kg, 10/05/20 14:31:00 EST, Dry Weight Start Date: 01/09/21 Status: Orderedallopurinol 300 mg oral tablet 300 mg, 1, tablet, By Mouth, Daily, # 90 tablet, Refills 1, Tot. Refills 1, Maintenance, 01/26/21 12:31:00 EDT, Route to Pharmacy Electronically, [facility]/pharmacy #[id number], 160, cm, 12/25/20 14:20:00 EDT, Height, [...] 03/23/21 16:45:00 EDT, 02/16/21 16:39:00 EDT, Cream, [facility]/pharmacy #0693, Partial fill upon patientrequest if the [...] EDT, Route to Pharmacy Electronically, [facility]/pharmacy #0693, 160, cm, 01/25/21 14:11:00 EDT, Height, 77.5, kg, 10/05/20 14:31:00 EST, Dry Weight Start Date: 02/06/21 Stop Date: 08/05/21 Status: OrderedHumira 40 mg subcutaneous solution See Instructions, 40 mg [id number], 0 Refills, Maintenance, 10/23/20 13:46:00 EST, Partial fill upon patient request if the prescription is for a schedule II opioid drug. Start Date: 10/23/20 Status: OrderedKeflex monohydrate 500 mg oral capsule 1 capsule = 500 mg, By Mouth, 4 times a day, for 10 days, # 40 each, 0 Refills, Acute 02/26/21 16:38:00 EDT, 02/16/21 16:38:00 EDT, Capsule, [facility]/pharmacy #[id number], Partial fill upon patient request if theprescription is for a schedule II opioid drug., 1... Start Date: 02/16/21 Stop Date: 02/26/21 Status: OrderedLyrica 150 mg oral capsule 1 capsule = 150 mg, By Mouth, 2 times a day, DOSAGE INCREASE, # 60 capsule, 3 Refills, Maintenance, 01/23/21 14:56:00 EDT, Capsule, [facility]/pharmacy #[id number], 160, cm, 01/14/21 11:46:00 EDT, Height, 77.5, kg,10/05/20 14:31:00 EST, Dry Weight Start Date: 01/23/21 Status: Orderedmagnesium oxide 400 mg (240 mg elemental magnesium) oral tablet 1 tablet, By Mouth, Daily, # 90 tablet, 0 Refills, Acute, 09/20/20 12:20:00 EST, [facility], 90, TAKE 1 TABLET BY MOUTH DAILY, 160, cm, 09/12/20 14:03:00 EST, Height, 71.3, kg, 08/08/20 7:00:00 EST, Dry Weight Start Date: 09/20/20 Status: OrderedMelatonin 3 mg oral tablet 1 tablet = 3 mg, By Mouth, Daily at bedtime, PRN for insomnia, [facility], # 90 tablet, 3 Refills, Maintenance, 04/24/20 9:53:00 EDT, Tablet, [facility]/pharmacy #[id number], 1 tablet By Mouth Daily at [...] if th... Start Date: 08/30/20 Status: OrderedPen [place], 31 G x 5 mm BD Ultra [...] EDT, Route to Pharmacy Electronically, [facility]/pharmacy #[id number], 160, cm, 12/25/20 14:20:00 EDT, Height, 77.5, kg, 10/05/20 14:31:00 EST, DrJhoan.. Start Date: 01/09/21 Status: Orderedspironolactone 100 mg oral tablet 100 mg, 1, tablet, By Mouth, Daily, # 90 tablet, Refills 0, Tot. Refills 0, Maintenance, 01/23/21 14:56:00 EDT, Route to Pharmacy Electronically, [facility]/pharmacy #[id number], Partial fill upon patient request if the prescription is for a schedule II opioid geovanny. Start Date: 01/23/21 Stop Date: 04/23/21 Status: OrderedtraMADol 50 mg oral tablet See Instructions, PRN Pain , Severe, 1-2 tablets by mouth every 6 hours, # 240 tablet, 1 Refills, Soft Stop, 01/25/21 16:45:00 EDT, [facility]/pharmacy #[id number], 160, cm, 01/25/21 14:11:00 EDT, Height, [...] # 9 Unknown, 5 Refills, 06/20/20 15:08:00EDT, [facility]/pharmacy #[id number], 160.02, cm, 06/01/20 11:03:00 EDT, Height, 73.6, kg, 04/18/20 10:19:00 EDT,Dry Weight Start Date: 06/20/20 Status: OrderedVitamin D3 1000 intl units oral capsule 1 capsule = 1,000 International_Units, By Mouth, Daily, # 90 capsule, 1 Refills, Maintenance, 09/25/20 7:44:00 EST, Capsule, [facility]/pharmacy #[id number], resent from 08/14, 160, cm, 09/12/20 14:03:00 EST, Height, 71.3, kg, 08/08/20 7:00:00 EST, Dry Weight Start Date: 09/25/20 Status: OrderedWellbutrin XL 300 mg/24 hours oral tablet, extended release 1 tablet = 300 mg, By Mouth, Daily, DOSAGE INCREASE, # 30 tablet, 5 Refills, Maintenance, 07/03/20 15:20:00 EST, ER Tablet, [facility]/pharmacy #[id number], 160.02, cm, 07/03/20 14:54:00 EST, Height, 73.6, kg, 04/18/20 10:19:00 EDT, Dry Weight Start Date: 07/03/20 Status: OrderedZoloft 50 mg oral tablet 1 tablet = 50 mg, By Mouth, Daily, DOSAGE INCREASE, # 30 tablet, 6 Refills, Maintenance, 01/05/21 10:10:00 EDT, Tablet, [facility]/pharmacy #[id number], Partial fill upon patient request if [...] myelopathy(Confirmed) OA (osteoarthritis), Active cervical(Confirmed) Osteoporosis(Confirmed) Active *[facility] [phone] DROP COUNT ASSOCIATE Alpa Active Nathaniel(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 50-70% bilaterally.3Patient's machine precision etcher is [facility] and patient sees Dr. Gume Mart Social History Social History Type Response Tobacco Other: last cigarette 0. Sex
--- OUTSIDE RECORDS SUMMARY | 2022-06-09 08:53 | XMS_ITS | Continuity of Care Document ---
:1950 Author Organization [address], [address] [place] [address]- Care Team Providers Name Role Phone Ranjeet Rushing MD Primary Care Physician Encounter [facility] Date(s): 01/24/21 - 01/31/[address], [address] [place], [place] [address] Attending Physician: Gabby Bernard DO Allergies, Adverse [...] 07/19/08 Given 1Result Comment: [05/28/2017] HD [facility]: [id number] History: [id number] Note: VIS GIVEN-DATED Admin Note: vis [id number] Note: VIS mdsvt7Bihrn Note: VIS-[id number] History: [facility] [id number] History: [facility] [id number] Comment: [10/17/2015] PER NICO AT [id number] Note: VIS [id number] Note: VIS GIVEN Medications 12 inch Grab Bars 12 inch Grab Bars, See Instructions, # 2 each, Refills 0, Tot. Refills 0, Maintenance, Grab bars : Length 12inches Use as directed DX Unsteady Gait ICD10 R26.81 HT: 5'3 Weight 162lbs Length of need Lifetime, 07/07/20 11:45:00 EST, Supply Start Date: 07/07/20 Status: OrderedADMIT TO [facility] ADMIT TO [facility], See Instructions, # 1 each, Refills 0, Tot. Refills 0, Maintenance, FAX [phone] ADMIT TO [facility], PT, OT. 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 Refills 1, Maintenance, 01/26/21 12:31:00 EDT, [id number], 160, cm, 12/25/20 14:20:00 EDT, Height, [...] mg subcutaneous solution See Instructions, 40 mg [id number], 0 Refills, Maintenance, 10/23/20 13:46:00 EST, Partial fill upon patient request if the prescription is for a schedule II opioid drug. Start Date: 10/23/20 Status: OrderedLyrica 150 mg oral capsule 1 capsule = 150 mg, By Mouth, 2 times a day, DOSAGE INCREASE, # 60 capsule, 3 Refills, Maintenance, 01/23/21 14:56:00 EDT, Capsule, [facility]/pharmacy #[id number], 160, cm, 01/14/21 11:46:00 EDT, Height, 77.5, kg,10/05/20 14:31:00 EST, Dry Weight Start Date: 01/23/21 Status: Orderedmagnesium oxide 400 mg (240 mg elemental magnesium) oral tablet 1 tablet, By Mouth, Daily, # 90 tablet, 0 Refills, Acute, 09/20/20 12:20:00 EST, [facility], 90, TAKE 1 TABLET BY MOUTH DAILY, 160, cm, 09/12/20 14:03:00 EST, Height, 71.3, kg, 08/08/20 7:00:00 EST, Dry Weight Start Date: 09/20/20 Status: OrderedMelatonin 3 mg oral tablet 1 tablet = 3 mg, By Mouth, Daily at bedtime, PRN for insomnia, [facility] brand, # 90 tablet, 3 Refills, Maintenance, 04/24/20 9:53:00 EDT, Tablet, [facility]/pharmacy #[id number], 1 tablet By Mouth Daily at bedtime,PRN:for insomnia,Instr:[facility] brand, 160.02, cm, 04/18/20... Start Date: 04/24/20 [...] if th... Start Date: 08/30/20 Status: OrderedPen [place], 31 G x 5 mm BD Ultra [...] Electronically, [facility]/pharmacy #[id number], 160, cm, 12/25/20 14:20:00 EDT, Height, 77.5, kg, 10/05/20 14:31:00 EST, DrJhoan.. Start Date: 01/09/21 Status: Orderedspironolactone 100 mg oral tablet 100 mg, 1, tablet, By Mouth, Daily, # 90 tablet, Refills 0, Tot. Refills 0, Maintenance, 01/23/21 14:56:00 EDT, [id number] Partial fill upon patient request if the prescription is for a schedule II opioid thomas... 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 50-70% bilaterally.3Patient's tie hacker is [facility] and patient sees Dr. Gume Mart Vital Signs Most recent to oldest [Reference Range]: 1 Height 160 cm (01/24/21 12:50 PM) Weight 77.1 kg (01/24/21 12:50 PM) Body Mass Index [18.5-24.99] 30.12 *>HHI* (01/24/21 12:50 PM) Social History Social History Type Response Tobacco Other: last cigarette 0. Sex
--- OUTSIDE RECORDS SUMMARY | 2022-06-09 08:53 | XMS_ITS | Continuity of Care Document ---
:1950 Author Organization [facility] Address [address] [place] [address]- Care Team Providers Name Role Phone Ranjeet Rushing MD Primary Care Physician [place] [facility] [place] 04/15/22 - 05/15/22 [facility] [address] [place] [address]- Allergies, Adverse Reactions, Alerts Substance Reaction Severity Status Lac-Hydrin Active Benadryl Active Latex Active Ambien Active Immunizations Given and Recorded [...] Given 1Result Comment: [05/28/2017] [facility]: [id number] History: [id number] Note: VIS GIVEN-DATED Admin Note: vis jtpfj1Hxjav Note: VIS mqgol3Mziwn Note: VIS-[id number] History: [facility] [id number] History: [facility] [id number] Comment: [10/17/2015] PER NICO AT [id number] Note: VIS CMHZG90Gyvjv Note: VIS GIVEN Medications 12 inch Grab [...] 11 Refills, Maintenance, 05/07/22 16:00:00 EDT, Powder, [facility]/pharmacy #[id number], 2 puffs Inhalation Every 6 hours,PRN:as needed, 160, cm, 04/24/22 8:34:00 EDT, Height, 72.7, kg, 04/24/22 8:34:00... Start Date: 05/07/22 Status: Orderedalendronate 70 mg oral tablet 1 tablet, By Mouth, Every week, # 12 tablet, 1 Refills, [facility], 160, cm, 01/17/22 14:38:00 EDT, Height, 74.8, kg, 11/01/21 15:05:00 EST, Dry Weight Start Date: 01/30/22 Status: Orderedallopurinol 300 mg oral tablet 1, tablet, By Mouth, Daily, # 90 tablet, Refills 0, Route to Pharmacy Electronically, [facility], 160, cm, 02/21/22 15:11:00 EDT, Height, 74.8, kg, 11/01/21 15:05:00 EST, Dry Weight Start Date: 03/27/22 Status: OrderedBACK BRACE BACK BRACE, See Instructions, # 1 each, Refills 0, Tot. Refills 0, Maintenance, DX BACK PAIN M54.9 DANTE LIFETIME HT 5'3 WT 182 LB, 07/23/16 14:35:27, Compound Start Date: 07/23/16 Status: OrderedBD UF SHORT PEN NEEDLE [id number] BD UF SHORT PEN NEEDLE [id number], See Instructions, # 200 Unknown, 5 Refills, USE TO INJECT INSULIN TWICE A DAY, 160, cm, 11/27/21 14:08:00 EDT, Height, 74.8, kg, 11/01/21 15:05:00 EST, Dry Weight Start Date: 11/30/21 Status: OrderedbuPROPion 300 mg/24 hours (XL) oral tablet, extended release 1 tablet, By Mouth, Daily, # 30 tablet, 5 Refills, [facility], 160, cm, 02/04/22 13:44:00 EDT, Height, 74.8, [...] Status: OrderedCVS VITAMIN D3 25 MCG SOFTGEL [facility] VITAMIN D3 25 MCG SOFTGEL, 1, capsule, By Mouth, Daily, # 90 capsule, 1 Refills, 160, cm, 10/16/21 14:42:00 EST, Height, 75, kg, 09/14/21 11:51:00 EST, Dry Weight Start Date: 10/17/21 Status: Orderedcyanocobalamin 500 mcg oral tablet 1 tablet = 500 mcg, By Mouth, Daily, # 90 tablet, 3 Refills, Maintenance, 04/12/22 16:02:00 EDT, Tablet, [facility]/pharmacy #[id number], 160, cm, 04/10/22 14:31:00 EDT, Height, [...] tablet, 1 Refills, Maintenance, 05/06/22 9:31:00 EDT, [facility] [address], 160, cm, 04/24/22 8:34:00 EDT, Height, 72.7, [...] 1, Route to Pharmacy Electronically, [facility], 160, cm, 02/21/22 15:11:00 EDT, Height, 74.8, kg, 11/01/21 15:05:00 EST, Dry Weight Start Date: 03/12/22 Status: OrderedLidoderm 5% film 1 patch, Topically, Daily, # 30 patch, 11 Refills, Maintenance, 12/28/21 15:03:00 EDT, [facility]/pharmacy #0693, Partial fill [...] 3 Refills, Maintenance, 03/26/22 10:58:00 EDT, Capsule, [facility]/pharmacy #0693, 160, cm, 02/21/22 15:11:00 EDT, Height, 74.8, kg,11/01/21 15:05:00 EST, Dry Weight Start Date: 03/26/22 Status: Orderedmagnesium oxide 400 mg oral tablet 1 tablet, By Mouth, Daily, # 100 tablet, 2 Refills, [facility], 160, cm, 02/21/22 15:11:00 EDT,Height, 74.8, kg, [...] EDT, Injec... Start Date: 06/11/21 Status: OrderedPen [place], 31 G x 5 mm BD [...] tablet, 0 Refills, Maintenance, 04/24/22 17:19:00EDT, Tablet, [facility]/pharmacy #0693, Partial [...] 1, Route to Pharmacy Electronically, [facility], 160, cm, 11/27/21 14:08:00 EDT, Height, 74.8, kg, 11/01/21 15:05:00 EST, Dry Weight Start Date: 01/11/22 Status: OrderedtraMADol 50 mg oral tablet See Instructions, TAKE 1-2 TABLETS BY MOUTH EVERY 6 HOURS SCHEDULE FOLLOW VISIT, NEEDED FOR PAIN,# 240 tablet, 5 Refills, Maintenance, 01/17/22 11:33:00 EDT, [facility]/pharmacy #0693, 160, cm, 11/27/21 14:08:00 EDT, Height, [...] Refills, Maintenance, 05/07/22 15:49:00 EDT, [facility], 160, cm, 04/24/22 8:34:00 EDT, Height, 72.7, [...] Osteoporosis(Confirmed) Active *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 50-70% bilaterally.3Patient's paperhanger supervisor is [facility] and patient sees Dr. Gume Mart Social History Social History Type Response Smoking Status Former smoker, quit more mark n 30 days ago entered on: 09/28/21 Sex Care Team PersonnelName: Kristan SUTTON, Ranjeet Beatty Address: [address] [place] [address] [place], [place] [address]
--- OUTSIDE RECORDS SUMMARY | 2022-06-09 08:53 | XMS_ITS | Continuity of Care Document ---
:1950 Author Organization [facility] Address [address] [place] [address] Drive [address] [place] [address]- Care Team Providers Name Role Phone Kristan SUTTON, Ranjeet Beatty Primary Care Physician [facility]counter [facility] Date(s): 10/13/19 - 12/19/19 [facility] [address] [place] [address] Drive [address] [place] [address]- [facility] Attending Physician: Nigel Boyd MD Referring [...] (oldterm)11 07/19/08 Given 1Result Comment: [05/28/2017] [facility]: [id number] History: [id number] Note: VIS GIVEN-DATED Admin Note: vis [id number] Note: VIS ppovo2Utdtt Note: VIS-[id number] [place] [facility] [id number] History: [facility] DEANGELO Gray Comment: [10/17/2015] PER NICO AT [id number] Note: VIS [id number] Note: VIS GIVEN Medications albuterol 90 mcg/inh [...] 12:00:00 EDT, Route to Pharmacy Electronically, [facility] ST[facility] 73720, 160.02, cm, 11/02/19 15:34:00 EDT, Height, 81.6, [...] CAPSULE BY MOUTH EVERY DAY, [facility]/pharmacy #[id number] Start Date: 04/20/19 Status: Orderedcyanocobalamin [...] 11:59:00 EDT, Route to Pharmacy Electronically, [facility] ST[facility] 90661, 160.02, cm, 11/02/19 15:34:00 EDT, Height, 81.6, kg, 07/27/19 14:52:00 EST, Dry Weight Start Date: 11/08/19 Status: Orderedgabapentin 300 mg oral capsule 300 mg, 1, capsule, By Mouth, 3 times a day, # 90 capsule, Refills 5, Tot. Refills 5, Maintenance, 11/02/19 16:04:00 EDT, Route to Pharmacy Electronically, [facility]/pharmacy #[id number], 160.02, cm, 11/02/19 15:34:00 EDT, [...] Call PCP... Start Date: 10/29/17 Status: OrderedPen [place], 31 G x 5 mm BD Ultra [...] 07/20/19 16:14:12 EST, Route to Pharmacy Electronically, [id number], [facility]/pharmacy #[id number] Start Date: 07/20/19 Status: Orderedspironolactone 100 mg oral tablet 1, tablet, By Mouth, Daily, # 30 tablet, Refills 5, Tot. Refills 0, Maintenance, 12/07/19 13:00:00 EDT, Route to Pharmacy Electronically, [facility] STORE 31348, 160.02, cm, 11/02/19 15:34:00 EDT, Height, 81.6, kg, 07/27/19 14:52:00 EST, Dry Weight Start Date: 12/07/19 Status: OrderedtraMADol 50 mg oral tablet See Instructions, PRN Pain , Severe, 1-2 tablets by mouth every 6 hours, # 240 tablet, 1 Refills, Soft Stop, 11/04/19 6:40:00 EDT, [facility]/pharmacy #[id number], 160.02, cm, 11/02/19 15:34:00 EDT, [...] Soft Stop, 12/16/19 15:45:00 EDT, [facility]/pharmacy #[id number], 160.02, cm, 11/02/19 15:34:00 EDT, [...] Maintenance, 10/20/19 9:16:00 EST, Capsule, [facility]/pharmacy #[id number], resent from 08/14, 160.02, cm, [...] Active *[facility] [phone] 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 50-70% bilaterally.3Patient's mechanic assistant is [facility] and patient sees Dr. Gume Mart Social History Social History Type Response Smoking Status Current some day smoker; Typ e: Cigarettes; Other: less than 1/2 pack a day; Tobacco use times per day: 1/2 pack a day; entered on: 02/19/17 Sex
--- OUTSIDE RECORDS SUMMARY | 2022-06-09 08:53 | XMS_ITS | Continuity of Care Document ---
:1950 Author Organization [facility] Address [address] [place] [id number]- Care Team Providers Name Role Phone Ranjeet Rushing MD Primary Care Physician [facility] Date[facility]s): 03/17/20 - 04/16/20 [facility] [address] [place] [address]- [facility] Allergies, Adverse Reactions, Alerts Substance Reaction Severity [...] Given 1Result Comment: [05/28/2017] [facility]: [id number] History: [id number] Note: VIS GIVEN-DATED Admin Note: vis [id number] Note: VIS tslju2Bluny Note: VIS-[id number] History: [facility] [id number] History: [facility] Isaac Comment: [10/17/2015] PER NICO AT [id number] Note: VIS [id number] Note: VIS GIVEN Medications albuterol 90 mcg/inh inhalation powder 2 puffs, Inhalation, Every 6 hours, PRN as needed, # 1 each, 11 Refills, Maintenance, 12/29/18 9:38:36 EDT, Powder, 2 puffs Inhalation Every 6 hours,PRN:as needed Start Date: 12/29/18 Status: Orderedalendronate 70 mg oral tablet 1 tablet, By Mouth, Every week, # 12 tablet, 0 Refills, Maintenance, 03/17/20 11:27:00 EDT, [facility] STORE 28207, 160.02, cm, 03/14/20 13:30:00 EDT, Height, 81.6, kg, 07/27/19 14:52:00 EST, Dry Weight Start Date: 03/17/20 Status: Orderedallopurinol 300 mg oral tablet 1, tablet, By Mouth, Daily, # 90 tablet, Refills 0, Tot. Refills 0, Maintenance, 04/05/20 9:38:00 EDT, Route to Pharmacy Electronically, [facility]/pharmacy #[id number], 160.02, cm, 03/29/20 10:57:00 EDT, [...] TAKE 1 CAPSULE BY MOUTH EVERY DAY, [facility]/pharmacy #[id number] Start Date: 04/20/19 Status: Orderedcyanocobalamin 500 mcg oral tablet 1 tablet = 500 mcg, By Mouth, Daily, # 90 tablet, 0 Refills, Maintenance, 02/11/20 13:33:00 EDT, Tablet, [facility]/pharmacy #0693, 160.02, cm, 02/11/20 13:03:00 EDT, [...] 04/07/20 11:50:00 EDT, Route to Pharmacy Electronically, [facility]/pharmacy #0693, 160.02, cm, 03/29/20 10:57:00 EDT,Height, 81.6, kg, 07/27/19 14:52:00 EST, Dry Weight Start Date: 04/07/20 Status: Orderedgabapentin 300 mg oral capsule 300 mg, 1, capsule, By Mouth, 3 times a day, # 90 capsule, Refills 5, Tot. Refills 5, Maintenance, 04/13/20 12:42:00 EDT, Route to Pharmacy Electronically, [facility]/pharmacy #0693, 160.02, cm, 03/29/20 10:57:00 EDT, [...] 3 Refills, Maintenance, 01/07/20 16:00:00 EDT, Tablet, [facility]/pharmacy #[id number], 1 tablet By Mouth Daily [...] each, 5 Refills, Maintenance, 02/21/20 11:53:00 EDT, [facility]/pharmacy #0693, 301-350: 12 units, 351-400: 14 units, 401-450: 1... Start Date: 02/21/20 Status: OrderedPen [place], 31 G x 5 mm BD [...] 07/20/19 16:14:12 EST, Route to Pharmacy Electronically, [id number], [facility]/pharmacy #[id number] Start Date: 07/20/19 Status: Orderedspironolactone 100 mg oral tablet 1, tablet, By Mouth, Daily, # 30 tablet, Refills 5, Tot. Refills 0, Maintenance, 12/07/19 13:00:00 EDT, Route to Pharmacy Electronically, [facility] STORE 69929, 160.02, cm, 11/02/19 15:34:00 EDT, Height, 81.6, kg, 07/27/19 14:52:00 EST, Dry Weight Start Date: 12/07/19 Status: OrderedtraMADol 50 mg oral tablet See Instructions, PRN Pain , Severe, 1-2 tablets by mouth every 6 hours, # 240 tablet, 1 Refills, Soft Stop, 03/14/20 14:29:00 EDT, [facility]/pharmacy #0693, 160.02, cm, 03/14/20 13:30:00 EDT, [...] 5 Refills, Soft Stop, 12/16/19 15:45:00 EDT, [facility]/pharmacy #0693, 160.02, cm, 11/02/19 15:34:00 EDT, Height, 81.6, kg, 07/27/19 14:52:00 EST, Dry Weight Start Date: 12/16/19 Status: OrderedVictoza 18 mg/3 mL subcutaneous solution See Instructions, INJECT 1.8 MG SUBCUTANEOUS DAILY, # 9 Unknown, 0 Refills, Maintenance, 03/03/20 15:42:00 EDT, [facility]/pharmacy #[id number], 160.02, cm, 02/11/20 13:03:00 EDT, [...] Osteoporosis(Confirmed) Active *[facility] [phone] 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 50-70% bilaterally.3Patient's restaurant lead is [facility] and patient sees Dr. Gume Mart Social History Social History Type Response Smoking Status Current some day smoker; Typ e: Cigarettes; Other: less than 1/2 pack a day; Tobacco use times per day: 1/2 pack a day; entered on: 02/19/17 Sex
--- OUTSIDE RECORDS SUMMARY | 2022-06-09 08:53 | XMS_ITS | Continuity of Care Document ---
:1950 Author Organization [facility] Address [address] [place] [address]- Care Team Providers Name Role Phone Ranjeet Rushing MD Primary Care Physician Encounter [facility] Date(s): 06/25/21 - 07/25/21 [facility] [address] [place] [address]- Allergies, Adverse Reactions, Alerts Substance Reaction Severity [...] [facility]: [id number] History: [id number] Note: VIS GIVEN-DATED Admin Note: vis [id number] Note: VIS aymdi5Imhoh Note: VIS-[id number] History[place] [facility] [id number] History: [facility] [id number] Comment: [10/17/2015] PER NICO AT [id number] Note: VIS [id number] Note: VIS GIVEN Medications 12 inch Grab [...] Refills, Maintenance, 05/05/20 14:02:00 EDT, Powder, [facility]/pharmacy #[id number], 2 puffs Inhalation Every 6 hours,PRN:as needed, 160.02, cm, 05/05/20 13:43:00 EDT, Height, 73.6, kg, 04/18/20 10:1... Start Date: 05/05/20 Status: Orderedalendronate 70 mg oral tablet 1 tablet, By Mouth, Every week, # 12 tablet, 6 Refills, Maintenance, 01/09/21 16:07:00 EDT, [facility] STORE 19965, 160, cm, 12/25/20 14:20:00 EDT, Height, 77.5, kg, 10/05/20 14:31:00 EST, Dry Weight Start Date: 01/09/21 Status: Orderedallopurinol 300 mg oral tablet 1, tablet, By Mouth, Daily, # 90 tablet, Refills 1, Route to Pharmacy Electronically, [facility], 160, cm, 06/19/21 13:57:00 EDT, Height, 77.27, [...] tablet, 5 Refills, Maintenance, 03/12/21 10:51:00 EDT, [facility]266, 160, cm, 02/27/21 13:50:00 EDT, Height, 79.6, [...] Refills, Maintenance, 02/08/21 9:52:00 EDT, Tablet, [facility]/pharmacy #[id number], 160, cm, 01/25/21 14:11:00 [...] 9:05:00 EDT, Route to Pharmacy Electronically, [facility]/pharmacy #[id number], 160, cm, 01/25/21 14:11:00 EDT, Height, 77.5, kg, 10/05/20 14:31:00 EST, Dry Weight Start Date: 02/06/21 Stop Date: 08/05/21 Status: OrderedHumira 40 mg subcutaneous solution See Instructions, 40 mg [id number], 0 Refills, Maintenance, 10/23/20 13:46:00 EST, Partial fill upon patient request if the prescription is for a schedule II opioid drug. Start Date: 10/23/20 Status: OrderedLyrica 150 mg oral capsule 1 capsule = 150 mg, By Mouth, 2 times a day, DOSAGE INCREASE, # 60 capsule, 3 Refills, Maintenance, 07/09/21 14:12:00 EST, Capsule, [facility]/pharmacy #[id number], 160, cm, 06/19/21 13:57:00 EDT, Height, 77.27, kg, 03/24/21 20:58:00 EDT, Dry Weight Start Date: 07/09/21 Status: Orderedmagnesium oxide 400 mg (240 mg elemental magnesium) oral tablet 1 tablet, By Mouth, Daily, # 90 tablet, 0 Refills, Acute, 09/20/20 12:20:00 EST, [facility], 90, TAKE 1 TABLET BY MOUTH DAILY, 160, cm, 09/12/20 14:03:00 EST, Height, 71.3, kg, 08/08/20 7:00:00 EST, Dry Weight Start Date: 09/20/20 Status: Orderedmagnesium oxide 400 mg oral tablet 1 tablet = 400 mg, By Mouth, Daily, # 100 tablet, 2 Refills, Maintenance, 06/05/21 11:32:00 EDT, Tablet, [facility]/pharmacy #[id number], Partial fill upon patient request if the prescription is for a schedule II opioid drug., 160, cm, 05/21/21 11:03:00 EDT, [facility]... Start Date: 06/05/21 Status: OrderedMelatonin 3 mg oral tablet 1 tablet = 3 mg, By Mouth, Daily at bedtime, PRN for insomnia, [facility], # 90 tablet, 3 Refills, Maintenance, 04/24/20 9:53:00 EDT, Tablet, [facility]/pharmacy #0693, 1 tablet By Mouth [...] EDT, Injec... Start Date: 06/11/21 Status: OrderedPen [place], 31 G x 5 mm BD Ultra [...] 15:06:00 EDT, Route to Pharmacy Electronically, [facility]/pharmacy #[id number], 160, cm, 12/25/20 14:20:00 EDT, Height, 77.5, kg, 10/05/20 14:31:00 EST, Start Date: 01/09/21 Status: Orderedspironolactone 100 mg oral tablet 100 mg, 1, tablet, By Mouth, Daily, # 90 tablet, Refills 1, Tot. Refills 1, Maintenance, 07/23/21 13:10:00 EST, [id number] Partial fill upon patient request if the prescription is for a schedule II opioid carlene Start Date: 07/23/21 Stop Date: 01/19/22 Status: OrderedtraMADol 50 mg oral tablet See Instructions, TAKE 1-2 TABLETS BY MOUTH EVERY 6 HOURS SCHEDULE FOLLOW VISIT, NEEDED FOR PAIN,# 240 tablet, 5 Refills, Maintenance, 05/31/21 9:52:00 EDT, [facility]/pharmacy #[id number], 160, cm, 05/21/21 11:03:00 [...] Refills, Maintenance, 04/19/21 11:35:00 EDT, Powder, [facility]/pharmacy #0693, Partial fill upon patient [...] # 9 Unknown, 2 Refills, [facility], 160, cm, 06/19/21 13:57:00 EDT, Height, 77.27, [...] Active cervical(Confirmed) Osteoporosis(Confirmed) Active *[facility] [phone] 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 50-70% bilaterally.3Patient's recovery coordinator is [facility] and patient sees Dr. Gume Mart Social History Social History Type Response Tobacco Other: last cigarette 0. Sex
--- OUTSIDE RECORDS SUMMARY | 2022-06-09 08:53 | XMS_ITS | Continuity of Care Document ---
:1950 Author Organization [address], [address] [place] [address]- Care Team Providers Name Role Phone Ranjeet Rushing MD Primary Care Physician Encounter [facility] Date(s): 01/24/21 - 02/23/[address], [address] [place], [place] [address] Attending Physician: Evans Brock Admitting Physician: AdmtrEvans [...] 07/19/08 Given 1Result Comment: [05/28/2017] [facility]: [id number] History: [id number] Note: VIS GIVEN-DATED Admin Note: vis [id number] Note: VIS rvdzv2Doata Note: VIS-[id number] History: [facility] [id number] History: [facility] [id number] Comment: [10/17/2015] PER NICO AT [id number] Note: VIS IREKM01Kcahf Note: VIS GIVEN Medications 12 inch Grab Bars 12 inch Grab Bars, See Instructions, # 2 each, Refills 0, Tot. Refills 0, Maintenance, Grab bars : Length 12inches Use as directed DX Unsteady Gait ICD10 R26.81 HT: 5'3 Weight 162lbs Length of need Lifetime, 07/07/20 11:45:00 EST, Supply Start Date: 07/07/20 Status: OrderedADMIT TO [facility] ADMIT TO [facility], See Instructions, # 1 each, Refills 0, Tot. Refills 0, Maintenance, FAX [phone] ADMIT TO GROUP HOME, PT, OT. ICER AIR CONDITIONING AND FRESH FOOD MANAGER IF NEEDED DIAGNOSIS: Cervical radiculopathy at [...] Refills, Maintenance, 01/09/21 16:07:00 EDT, [facility], 160, cm, 12/25/20 14:20:00 EDT, Height, 77.5, [...] 03/23/21 16:45:00 EDT, 02/16/21 16:39:00 EDT, Cream, [facility]/pharmacy #0693, Partial fill upon patientrequest if [...] Electronically, [facility]/pharmacy #0693, 160, cm, 01/25/21 14:11:00 EDT, Height, 77.5, kg, 10/05/20 14:31:00 EST, Dry Weight Start Date: 02/06/21 Stop Date: 08/05/21 Status: OrderedHumira 40 mg subcutaneous solution See Instructions, 40 mg [id number], 0 Refills, Maintenance, 10/23/20 13:46:00 EST, Partial fill upon patient request if the prescription is for a schedule II opioid drug. Start Date: 10/23/20 Status: OrderedKeflex monohydrate 500 mg oral capsule 1 capsule = 500 mg, By Mouth, 4 times a day, for 10 days, # 40 each, 0 Refills, Acute 02/26/21 16:38:00 EDT, 02/16/21 16:38:00 EDT, Capsule, [facility]/pharmacy #0693, Partial fill upon [...] Refills, Acute, 09/20/20 12:20:00 EST, [facility], 90, TAKE 1 TABLET BY MOUTH DAILY, [...] 1 tablet By Mouth Daily at bedtime,PRN:for insomnia,Instr:[facility] brand, 160.02, cm, 04/18/20... Start Date: 04/24/20 [...] if th... Start Date: 08/30/20 Status: OrderedPen [place], 31 G x 5 mm BD Ultra [...] to Pharmacy Electronically, [facility]/pharmacy #[id number], Partial fill upon patient request if the prescription is for a schedule II opioid thomasJhoan.. Start Date: 01/23/21 Stop Date: 04/23/21 Status: OrderedtraMADol 50 mg oral tablet See Instructions, PRN Pain , Severe, 1-2 tablets by mouth every 6 hours, # 240 tablet, 1 Refills, Soft Stop, 01/25/21 16:45:00 EDT, [facility]/pharmacy #0693, 160, cm, 01/25/21 [...] # 9 Unknown, 5 Refills, 06/20/20 15:08:00EDT, [facility]/pharmacy #0693, 160.02, cm, 06/01/20 11:03:00 [...] Refills, Maintenance, 07/03/20 15:20:00 EST, ER Tablet, [facility]/pharmacy #0693, 160.02, cm, 07/03/20 14:54:00 EST, Height, 73.6, kg, 04/18/20 10:19:00 EDT, Dry Weight Start Date: 07/03/20 Status: OrderedZoloft 50 mg oral tablet 1 tablet = 50 mg, By Mouth, Daily, DOSAGE INCREASE, # 30 tablet, 6 Refills, Maintenance, 01/05/21 10:10:00 EDT, Tablet, [facility]/pharmacy #0693, Partial [...] Active *[facility] [phone] 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 50-70% bilaterally.3Patient's operational intelligence analyst is [facility] and patient sees Dr. Gume Mart Social History Social History Type Response Tobacco Other: last cigarette 0. Sex
--- OUTSIDE RECORDS SUMMARY | 2022-06-09 08:53 | XMS_ITS | Continuity of Care Document ---
:1950 Author Organization [facility] Address [address] [place] [address]- Care Team Providers Name Role Phone Aarti SUTTON, Jose Person Primary Care Physician [facility]counter [facility] Date(s): 07/14/20 - 08/13/20 [facility] [address] [place] [address]- Allergies, Adverse Reactions, Alerts Substance Reaction Severity [...] (PPV23) (oldterm)11 07/19/08 Given 1Result Comment: [05/28/2017] [facility]: [id number] History: [id number] Note: VIS GIVEN-DATED Admin Note: vis teqib2Isuuw Note: VIS ndvlx8Inklp Note: VIS-KGJSH4Klcwmhzi History: [facility] [id number] History: [facility] Isaac Comment: [10/17/2015] PER NICO AT [id number] Note: VIS [id number] Note: VIS GIVEN Medications 12 inch Grab [...] Refills, Maintenance, 05/05/20 14:02:00 EDT, Powder, [facility]/pharmacy #0693, 2 puffs Inhalation Every 6 hours,PRN:as needed, 160.02, cm, 05/05/20 13:43:00 EDT, Height, 73.6, kg, 04/18/20 10:1... Start Date: 05/05/20 Status: Orderedalendronate 70 mg oral tablet 1 tablet, By Mouth, Every week, # 12 tablet, 0 Refills, Maintenance, 06/01/20 9:05:00 EDT, [facility]/pharmacy #0693, 160.02, cm, 05/09/20 12:34:00 EDT, Height, 73.6, kg, 04/18/20 10:19:00 EDT, Dry Weight Start Date: 06/01/20 Status: Orderedallopurinol 300 mg oral tablet 300 mg, 1, tablet, By Mouth, Daily, # 90 tablet, Refills 0, Tot. Refills 0, Maintenance, 07/06/20 15:50:00 EST, Route to Pharmacy Electronically, [facility]/pharmacy #0693, 160.02, cm, 07/03/20 [...] 07/06/20 15:48:00 EST, Route to Pharmacy Electronically, [facility]/pharmacy #0693, 160.02, cm, 07/03/20 [...] 3 Refills, Maintenance, 07/04/20 11:46:00 EST, Capsule, [facility]/pharmacy #0693, 160.02, cm, 07/03/20 14:54:00 EST, Height, 73.6, kg, 04/18/20 10:19:00 EDT, Dry Weight Start Date: 07/04/20 Status: Orderedmagnesium oxide 400 mg oral tablet 1 tablet = 400 mg, By Mouth, Daily, PER RAJNI CARDONA, # 90 tablet, 0 Refills, Maintenance, 06/28/20 12:11:00 EST, [facility]/pharmacy #0693, 160.02, cm, 06/01/20 11:03:00 EDT, Height, 73.6, kg, 04/18/20 10:19:00 EDT, Dry Weight Start Date: 06/28/20 Status: OrderedMelatonin 3 mg oral tablet 1 tablet = 3 mg, By Mouth, Daily at bedtime, PRN for insomnia, [facility], # 90 tablet, 3 Refills, Maintenance, 04/24/20 9:53:00 EDT, Tablet, [facility]/pharmacy #0693, 1 tablet By [...] each, 5 Refills, Maintenance, 02/21/20 11:53:00 EDT, [facility]/pharmacy #0693, 301-350: 12 units, 351-400: 14 units, 401-450: 1... Start Date: 02/21/20 Status: OrderedoxyCODONE 5 mg oral capsule 1 capsule = 5 mg, By Mouth, Every 6 hours, PRN as needed for pain, 0 Refills, Maintenance, 06/01/20 11:12:00 EDT, Capsule, Partial fill upon patient request Start Date: 06/01/20 Status: OrderedPen [place], 31 G x 5 [...] 06/28/20 9:31:00 EST, Route to Pharmacy Electronically, [facility]/pharmacy #0693, 160.02, cm, 06/01/20 11:03:00 EDT, Height, 73.6, kg, 04/18/20 10:19:00 EDT,... Start Date: 06/28/20 Status: Orderedspironolactone 100 mg oral tablet 1, tablet, By Mouth, Daily, # 30 tablet, Refills 2, Tot. Refills 2, Maintenance, 05/16/20 16:31:00 EDT, Route to Pharmacy Electronically, [facility]/pharmacy #0693, 160.02, cm, 05/09/20 12:34:00 EDT, Height, 73.6, kg, 04/18/20 10:19:00 EDT, Dry Weight Start Date: 05/16/20 Status: OrderedtraMADol 50 mg oral tablet See Instructions, PRN Pain , Severe, 1-2 tablets by mouth every 6 hours Schedule follow visit, # 240tablet, 1 Refills, Soft Stop, 05/19/20 16:27:00 EDT, [facility]/pharmacy #0693, 160.02, cm, 05/09/20 [...] 5 Refills, Soft Stop, 12/16/19 15:45:00 EDT, [facility]/pharmacy #0693, 160.02, cm, 11/02/19 [...] cervical(Confirmed) Osteoporosis(Confirmed) Active *[facility] [phone] 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 50-70% bilaterally.3Patient's automatic log cut off sawyer is [facility] and [facility] sees Dr. Gume Mart Social History Social History Type Response Tobacco Other: last cigarette 0. Sex
--- OUTSIDE RECORDS SUMMARY | 2022-06-09 08:53 | XMS_ITS | Continuity of Care Document ---
:1950 Author Organization [facility] Address [address] [place] [address]- Care Team Providers Name Role Phone Kristan SUTTON, Ranjeet Beatty Primary Care Physician [facility] Date[facility]): 11[facility]21 - 02/21/22 [facility] [address] [address] Attending Physician: Chandan Dorantes MD, Daria Ortega Admitting Physician: Daria Morales MD Referring Physician: Matilda LOZADA, Chari Santos Allergies, [...] [05/28/2017] [facility]: [id number] History: [id number] Note: VIS GIVEN-DATED Admin Note: vis [id number] Note: VIS [id number] Note: VIS-YFVHE7Jnobozro History: [facility] [id number] History: [facility] [id number] Comment: [10/17/2015] PER NICO AT [id number] Note: VIS [id number] Note: VIS GIVEN Medications 12 inch Grab [...] # 12 tablet, 1 Refills, [facility], 160, cm, 01/17/22 14:38:00 EDT, Height, 74.8, kg, 11/01/21 15:05:00 EST, Dry Weight Start Date: 01/30/22 Status: Orderedallopurinol 300 mg oral tablet 1, tablet, By Mouth, Daily, # 90 tablet, Refills 0, Route to Pharmacy Electronically, [facility], 160, cm, 11/27/21 14:08:00 EDT, Height, 74.8, kg, 11/01/21 15:05:00 EST, Dry Weight Start Date: 12/30/21 Status: OrderedBACK BRACE BACK BRACE, See Instructions, # 1 each, Refills 0, Tot. Refills 0, Maintenance, DX BACK PAIN M54.9 DANTE LIFETIME HT 5'3 WT 182 LB, 07/23/16 14:35:27, Compound Start Date: 07/23/16 Status: OrderedBD UF SHORT PEN NEEDLE 1UUS82G BD UF SHORT PEN NEEDLE [id number], See Instructions, # 200 Unknown, 5 Refills, USE TO INJECT INSULIN TWICE A DAY, 160, cm, 11/27/21 14:08:00 EDT, Height, 74.8, kg, 11/01/21 15:05:00 EST, Dry Weight Start Date: 11/30/21 Status: OrderedbuPROPion 300 mg/24 hours (XL) oral tablet, extended release 1 tablet, By Mouth, Daily, # 30 tablet, 5 Refills, [facility], 160, cm, 02/04/22 13:44:00 EDT, Height, 74.8, [...] 1 Refills, Maintenance, 02/21/22 16:12:00 EDT, Tablet, [facility]/pharmacy #0640, Partial fill upon patient request if the [...] 1, Route to Pharmacy Electronically, [facility], 160, cm, 10/15/21 15:03:00 EST, Height, 75, kg, 09/14/21 11:51:00 EST, Dry Weight Start Date: 10/16/21 Status: Orderedhydrocortisone 2.5% topical cream 1 application, Topically, 3 times a day, apply in a thin film to the affected skin and rub in gentlyand completely, # 30 Gm, 0 Refills, Acute 03/14/22 0:00:00 EDT, 02/21/22 16:08:00 EDT, Cream, [facility]/pharmacy #0693, Partial fill upon patient request if... [...] 3 Refills, Maintenance, 11/12/21 16:27:00 EDT, Capsule, [facility]/pharmacy #0693, 160, cm, 11/01/21 15:12:00 EST, Height, 74.8, kg,11/01/21 15:05:00 EST, Dry Weight Start Date: 11/12/21 Status: Orderedmagnesium oxide 400 mg (240 mg elemental magnesium) oral tablet 1 tablet, By Mouth, Daily, # 90 tablet, 0 Refills, Acute, 09/20/20 12:20:00 EST, [facility], 90, TAKE 1 TABLET BY MOUTH DAILY, 160, cm, 09/12/20 14:03:00 EST, Height, 71.3, kg, 08/08/20 7:00:00 EST, Dry Weight Start Date: 09/20/20 Status: Orderedmagnesium oxide 400 mg oral tablet 1 tablet = 400 mg, By Mouth, Daily, # 100 tablet, 2 Refills, Maintenance, 06/05/21 11:32:00 EDT, Tablet, [facility]/pharmacy #0693, Partial fill upon patient request if [...] EDT, Injec... Start Date: 06/11/21 Status: OrderedPen [place], 31 G x 5 mm BD Ultra Fine III See Instructions, # 200 each, Refills 5, Tot. Refills 5, Maintenance, To inject insulin BID for DM II E11.9 PER CHARI EMERY BODY SHOP SUPERVISOR-C, 10/06/20 10:54:00 EST, SHORT, Compound, 160, [...] 09/15/21 17:53:00 EST, Route to Pharmacy Electronically, [facility]/pharmacy #0693, 160, cm, 09/14/21 11:51:00 EST, Height, [...] tablet, Refills 1, Route to Pharmacy Electronically, [facility], 160, cm, 11/27/21 14:08:00 EDT, Height, 74.8, kg, 11/01/21 15:05:00 EST, Dry Weight Start Date: 01/11/22 Status: OrderedtraMADol 50 mg oral tablet See Instructions, TAKE 1-2 TABLETS BY MOUTH EVERY 6 HOURS SCHEDULE FOLLOW VISIT, NEEDED FOR PAIN,# 240 tablet, 5 Refills, Maintenance, 01/17/22 11:33:00 EDT, [facility]/pharmacy #0693, 160, cm, 11/27/21 14:08:00 EDT, Height, [...] # 9 Unknown, 5 Refills, [facility], 160, cm, 09/07/21 15:03:00 EST, Height, 77.27, [...] cervical(Confirmed) Osteoporosis(Confirmed) Active *[facility] [phone] 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 50-70% bilaterally.3[facility]'s systems admin [facility] and [facility] Dr. Gume Mart Social History Social History Type Response Smoking Status Former smoker, quit more mark n 30 days ago entered on: 09/28/21 Sex
--- OUTSIDE RECORDS SUMMARY | 2022-06-09 08:53 | XMS_ITS | Continuity of Care Document ---
:1950 Author Organization [facility] Address [address] [place] [address]- Care Team Providers Name Role Phone Ranjeet Rushing MD Primary Care Physician [facility] Date[facility]s): 04/23/20 - 05/23/20 [facility] [address] [place] [phone]- [facility] Allergies, Adverse Reactions, Alerts Substance Reaction [...] (oldterm)11 07/19/08 Given 1Result Comment: [05/28/2017] [facility]: [id number] History: [id number] Note: VIS GIVEN-DATED Admin Note: vis [id number] Note: VIS banbe3Kivva Note: VIS-VZXSD5Nrozaayv History: [facility] [id number] History: [facility] DEANGELO Gray Comment: [10/17/2015] PER NICO AT [id number] Note: VIS [id number] Note: VIS GIVEN Medications albuterol 90 mcg/inh inhalation powder 2 puffs, Inhalation, Every 6 hours, PRN as needed, # 1 each, 11 Refills, Maintenance, 05/05/20 14:02:00 EDT, Powder, [facility]/pharmacy #0693, 2 puffs Inhalation Every 6 hours,PRN:as needed, 160.02, cm, 05/05/20 13:43:00 EDT, Height, 73.6, kg, 04/18/20 10:1... Start Date: 05/05/20 Status: Orderedalendronate 70 mg oral tablet 1 tablet, By Mouth, Every week, # 12 tablet, 0 Refills, Maintenance, 03/17/20 11:27:00 EDT, [facility] 125[facility], 160.02, cm, 03/14/20 13:30:00 EDT, Height, 81.6, kg, 07/27/19 14:52:00 EST, Dry Weight Start Date: 03/17/20 Status: Orderedallopurinol 300 mg oral tablet 1, tablet, By Mouth, Daily, # 90 tablet, Refills 0, Tot. Refills 0, Maintenance, 04/05/20 9:38:00 EDT, Route to Pharmacy Electronically, [facility]/pharmacy #0693, 160.02, cm, 03/29/20 [...] 0 Refills, Maintenance, 02/11/20 13:33:00 EDT, Tablet, [facility]/pharmacy #0693, 160.02, cm, 02/11/20 [...] cm, 09/06/19 12:51:00 EST, Height, 81.6, kg, 12/03/19 14:52:00 EST, Dry Weight Start Date: 09/16/19 [...] 04/07/20 11:50:00 EDT, Route to Pharmacy Electronically, [facility]/pharmacy #0693, 160.02, cm, 03/29/20 10:57:00 EDT,Height, 81.6, kg, 07/27/19 14:52:00 EST, Dry Weight Start Date: 04/07/20 Status: Orderedgabapentin 300 mg oral capsule 300 mg, 1, capsule, By Mouth, 3 times a day, # 90 capsule, Refills 5, Tot. Refills 5, Maintenance, 04/13/20 12:42:00 EDT, Route to Pharmacy Electronically, [facility]/pharmacy #0693, 160.02, cm, 03/29/20 [...] 1 Refills, Maintenance, 05/12/20 14:54:00 EDT, Capsule, [facility]/pharmacy #0693, 160.02, cm, 05/09/20 [...] 3 Refills, Maintenance, 04/24/20 9:53:00 EDT, Tablet, [facility]/pharmacy #0693, 1 tablet By [...] 401-450: 1... Start Date: 02/21/20 Status: OrderedPen [place], 31 G x 5 [...] 07/20/19 16:14:12 EST, Route to Pharmacy Electronically, [id number], [facility]/pharmacy #[id number] Start Date: 07/20/19 Status: Orderedspironolactone 100 mg oral tablet 1, tablet, By Mouth, Daily, # 30 tablet, Refills 2, Tot. 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 50-70% bilaterally.3Patient's certified court interpreter is [facility] and patient [facility] Dr. Gume Mart Social History Social History Type Response Smoking Status Current some day smoker; Typ e: Cigarettes; Other: less than 1/2 pack a day; Tobacco use times per day: 1/2 pack a day; entered on: 02/19/17 Sex
--- OUTSIDE RECORDS SUMMARY | 2022-06-09 08:53 | XMS_ITS | Continuity of Care Document ---
:[address] [facility] Address [address] [place] [address]- Care Team Providers Name Role Phone Kristan SUTTON, Ranjeet Beatty Primary Care Physician [place] [facility] Date(s): 04/09/22 - 05/15/[address] [address] Attending Physician: Matilda LOZADA, Chari Santos Admitting [...] (PPV23) (oldterm)11 07/19/08 Given 1Result Comment: [05/28/2017] [facility]: [id number] History: [id number] Note: VIS GIVEN-DATED Admin Note: vis [id number] Note: VIS [id number] Note: VIS-MMHLB7Ksvpersv History: [facility] [id number] History: [facility] [id number] Comment: [10/17/2015] PER NICO AT [id number] Note: VIS [id number] Note: VIS GIVEN Medications 12 inch Grab [...] 11 Refills, Maintenance, 05/07/22 16:00:00 EDT, Powder, [facility]/pharmacy #0693, 2 puffs Inhalation Every 6 hours,PRN:as needed, 160, cm, 04/24/22 8:34:00 EDT, Height, 72.7, kg, 04/24/22 8:34:00... Start Date: 05/07/22 Status: Orderedalendronate 70 mg oral tablet 1 tablet, By Mouth, Every week, # 12 tablet, 1 Refills, [facility], 160, cm, 01/17/22 14:38:00 EDT, Height, 74.8, kg, 11/01/21 15:05:00 EST, Dry Weight Start Date: 01/30/22 Status: Orderedallopurinol 300 mg oral tablet 1, tablet, By Mouth, Daily, # 90 tablet, Refills 0, Route to Pharmacy Electronically, [facility], 160, cm, 02/21/22 15:11:00 EDT, Height, 74.8, kg, 11/01/21 15:05:00 EST, Dry Weight Start Date: 03/27/22 Status: OrderedBACK BRACE BACK BRACE, See Instructions, # 1 each, Refills 0, Tot. Refills 0, Maintenance, DX BACK PAIN M54.9 DANTE LIFETIME HT 5'3 WT 182 LB, 07/23/16 14:35:27, Compound Start Date: 07/23/16 Status: OrderedBD UF SHORT PEN NEEDLE [id number] BD UF SHORT PEN NEEDLE 1ARS03E, See Instructions, # 200 Unknown, 5 Refills, USE TO INJECT INSULIN TWICE A DAY, 160, cm, 11/27/21 14:08:00 EDT, Height, 74.8, kg, 11/01/21 15:05:00 EST, Dry Weight Start Date: 11/30/21 Status: OrderedbuPROPion 300 mg/24 hours (XL) oral tablet, extended release 1 tablet, By Mouth, Daily, # 30 tablet, 5 Refills, [facility], 160, cm, 02/04/22 13:44:00 EDT, Height, 74.8, [...] 3 Refills, Maintenance, 04/12/22 16:02:00 EDT, Tablet, [facility]/pharmacy #0693, 160, cm, 04/10/22 14:31:00 EDT, Height, [...] tablet, 1 Refills, Maintenance, 05/06/22 9:31:00 EDT, [facility], 160, cm, 04/24/22 8:34:00 EDT, Height, 72.7, [...] 1, Route to Pharmacy Electronically, [facility], 160, cm, 02/21/22 15:11:00 EDT, Height, 74.8, [...] 3 Refills, Maintenance, 03/26/22 10:58:00 EDT, Capsule, [facility]/pharmacy #0693, 160, cm, 02/21/22 15:11:00 EDT, Height, 74.8, kg,11/01/21 15:05:00 EST, Dry Weight Start Date: 03/26/22 Status: Orderedmagnesium oxide 400 mg oral tablet 1 tablet, By Mouth, Daily, # 100 tablet, 2 Refills, [facility], 160, cm, 02/21/22 15:11:00 EDT,Height, 74.8, kg, [...] EDT, Injec... Start Date: 06/11/21 Status: OrderedPen [place], 31 G x 5 mm BD Ultra [...] tablet, 0 Refills, Maintenance, 04/24/22 17:19:00EDT, Tablet, [facility], Partial fill upon patient [...] 09/15/21 17:53:00 EST, Route to Pharmacy Electronically, [facility]/pharmacy #0693, 160, cm, 09/14/21 11:51:00 EST, Height, [...] tablet, Refills 1, Route to Pharmacy Electronically, [facility], 160, cm, 11/27/21 14:08:00 EDT, Height, 74.8, kg, 11/01/21 15:05:00 EST, Dry Weight Start Date: 01/11/22 Status: OrderedtraMADol 50 mg oral tablet See Instructions, TAKE 1-2 TABLETS BY MOUTH EVERY 6 HOURS SCHEDULE FOLLOW VISIT, NEEDED FOR PAIN,# 240 tablet, 5 Refills, Maintenance, 01/17/22 11:33:00 EDT, [facility]/pharmacy #0693, 160, cm, 11/27/21 14:08:00 EDT, Height, [...] Refills, Maintenance, 05/07/22 15:49:00 EDT, [facility], 160, cm, 04/24/22 8:34:00 EDT, Height, 72.7, [...] cervical(Confirmed) Osteoporosis(Confirmed) Active *[facility] [phone] 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 50-70% bilaterally.3Patient's skid adzer is [facility] and patient sees Dr. Gume Mart Social History Social History Type Response Smoking Status Former smoker, quit more mark n 30 days ago entered on: 09/28/21 Sex Care Team PersonnelName: Kristan SUTTON, Ranjeet Beatty Address: [address] [place] [address] [place] [address]-
--- OUTSIDE RECORDS SUMMARY | 2022-06-09 08:53 | XMS_ITS | Continuity of Care Document ---
:1950 Author Organization [facility] Address [address] [place] [address]- Care Team Providers Name Role Phone Ranjeet Rushing MD Primary Care Physician [facility] Date[facility]): 05[facility]20 - 06/18/20 [facility] [address] [place] [id number]- [facility] Allergies, Adverse Reactions, Alerts Substance [...] 07/19/08 Given 1Result Comment: [05/28/2017] [facility]: [id number] History: [id number] Note: VIS GIVEN-DATED Admin Note: vis [id number] Note: VIS fkozz5Seirm Note: VIS-[id number] History: [facility] [id number] History: [facility] DEANGELO Gray Comment: [10/17/2015] PER NICO AT [id number] Note: VIS [id number] Note: VIS GIVEN Medications albuterol 90 mcg/inh [...] 0 Refills, Maintenance, 06/01/20 9:05:00 EDT, [facility]/pharmacy #0693, 160.02, cm, 05/09/20 12:34:00 EDT, Height, 73.6, kg, 04/18/20 10:19:00 EDT, Dry Weight Start Date: 06/01/20 Status: Orderedallopurinol 300 mg oral tablet 1, tablet, By Mouth, Daily, # 90 tablet, Refills 0, Tot. Refills 0, Maintenance, 04/05/20 9:38:00 EDT, [facility] 160.02, cm, 03/29/20 10:57:00 EDT, Height, [...] 0 Refills, Maintenance, 06/01/20 12:01:00 EDT, Capsule, [facility]/pharmacy #0693, 160.02, cm, 06/01/20 11:03:00 [...] TAKE 1 CAPSULE BY MOUTH EVERY DAY, [facility]/pharmacy #0693 Start Date: 04/20/19 Status: Orderedcyanocobalamin 500 mcg oral tablet 1 tablet = 500 mcg, By Mouth, Daily, # 90 tablet, 0 Refills, Maintenance, 02/11/20 13:33:00 EDT, Tablet, [facility]/pharmacy #0693, 160.02, cm, 02/11/20 13:03:00 [...] 04/07/20 11:50:00 EDT, Route to Pharmacy Electronically, [facility]/pharmacy #0693, 160.02, cm, 03/29/20 10:57:00 EDT,Height, 81.6, kg, 07/27/19 14:52:00 EST, Dry Weight Start Date: 04/07/20 Status: Orderedgabapentin 300 mg oral capsule 300 mg, 1, capsule, By Mouth, 3 times a day, # 90 capsule, Refills 5, Tot. Refills 5, Maintenance, 04/13/20 12:42:00 EDT, Route to Pharmacy Electronically, [facility]/pharmacy #0693, 160.02, cm, 03/29/20 10:57:00 [...] 1 Refills, Maintenance, 05/12/20 14:54:00 EDT, Capsule, [facility]/pharmacy #0693, 160.02, cm, 05/09/20 12:34:00 [...] 5 Refills, Maintenance, 02/21/20 11:53:00 EDT, [facility]/pharmacy #0693, 301-350: 12 units, 351-400: 14 units, 401-450: 1... Start Date: 02/21/20 Status: OrderedoxyCODONE 5 mg oral capsule 1 capsule = 5 mg, By Mouth, Every 6 hours, PRN as needed for pain, 0 Refills, Maintenance, 06/01/20 11:12:00 EDT, Capsule, Partial fill upon patient request Start Date: 06/01/20 Status: OrderedPen [place], 31 G x 5 mm BD Ultra [...] 07/20/19 16:14:12 EST, Route to Pharmacy Electronically, [id number], [facility]/pharmacy #0693 Start Date: 07/20/19 Status: Orderedspironolactone 100 mg oral tablet 1, tablet, By Mouth, Daily, # 30 tablet, Refills 2, Tot. Refills 2, Maintenance, 05/16/20 16:31:00 EDT, Route to Pharmacy Electronically, [facility]/pharmacy #0693, 160.02, cm, 05/09/20 12:34:00 EDT, Height, 73.6, kg, 04/18/20 10:19:00 EDT, Dry Weight Start Date: 05/16/20 Status: OrderedtraMADol 50 mg oral tablet See Instructions, PRN Pain , Severe, 1-2 tablets by mouth every 6 hours Schedule follow visit, # 240tablet, 1 Refills, Soft Stop, 05/19/20 16:27:00 EDT, [facility]/pharmacy #0693, 160.02, cm, 05/09/20 12:34:00 [...] Refills, Soft Stop, 12/16/19 15:45:00 EDT, [facility]/pharmacy #0693, 160.02, cm, 11/02/19 15:34:00 EDT, Height, 81.6, kg, 07/27/19 14:52:00 EST, Dry Weight Start Date: 12/16/19 Status: OrderedVictoza 18 mg/3 mL subcutaneous solution See Instructions, INJECT 1.8 MG UNDER THE SKIN ONCE DAILY, # 9 Unknown, 0 Refills, Maintenance, [facility] STORE 49439, 160.02, cm, 05/09/20 12:34:00 EDT, Height, 73.6, kg, 04/18/20 10:19:00 EDT, Dry Weight Start Date: 05/26/20 Status: OrderedVitamin D3 1000 intl units oral capsule 1 capsule = 1,000 International_Units, By Mouth, Daily, # 90 capsule, 3 Refills, Maintenance, 10/20/19 9:16:00 EST, Capsule, [facility]/pharmacy #0693, resent from 08/14, 160.02, cm, 09/29/19 14:57:00 EST, Height, 81.6, kg, 07/27/19 14:52:00 EST, Dry Weight Start Date: 10/20/19 Status: OrderedWellbutrin XL 150 mg/24 hours oral tablet, extended release 1 tablet = 150 mg, By Mouth, Every 24 hours, do not crush or chew, # 30 tablet, 6 Refills, Maintenance, 12/09/19 16:12:00 EDT, ER Tablet, [facility]/pharmacy #0693, 160.02, cm, 11/02/19 15:34:00 [...] cervical(Confirmed) Osteoporosis(Confirmed) Active *[facility] [phone] 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 Gume Mart Social History Social History Type Response Smoking Status Current some day smoker; Typ e: Cigarettes; Other: less than 1/2 pack a day; Tobacco use times per day: 1/2 pack a day; entered on: 02/19/17 Sex
--- OUTSIDE RECORDS SUMMARY | 2022-06-09 08:53 | XMS_ITS | Continuity of Care Document ---
:1950 Author Organization [facility] Adult Address [address] [place] [address]- Care Team Providers Name Role Phone Kristan SUTTON, Ranjeet Beatty Primary Care Physician [facility]): [facility] - 10/23/20 [facility] [address] [place] [address]- Attending Physician: Matilda LOZADA, Chari Santos Allergies, [...] (PPV23) (oldterm)11 07/19/08 Given 1Result Comment: [05/28/2017] [facility]: [id number] History: [id number] Note: VIS GIVEN-DATED Admin Note: vis [id number] Note: VIS [id number] Note: VIS-[id number] History: [id number] History: [facility] DEANGELO Gray Comment: [10/17/2015] PER NICO AT [id number] Note: VIS [id number] Note: VIS GIVEN Medications 12 inch Grab Bars 12 inch Grab Bars, See Instructions, # 2 each, Refills 0, Tot. Refills 0, Maintenance, Grab bars : Length 12inches Use as directed DX Unsteady Gait ICD10 R26.81 HT: 5'3 Weight 162lbs Length of need Lifetime, 07/07/20 11:45:00 EST, Supply Start Date: 07/07/20 Status: [facility], See Instructions, # 1 each, Refills 0, Tot. Refills 0, Maintenance, FAX [phone] ADMIT TO JAIL, PT, OT. LEGAL COLLECTOR AND BAKER APPRENTICE IF NEEDED DIAGNOSIS: Cervical radiculopathy at C6 , DIABETES, ANKLE FRACTURE... Start Date: 10/17/20 Status: Orderedalbuterol 90 mcg/inh inhalation powder 2 puffs, Inhalation, Every 6 hours, PRN as needed, # 1 each, 11 Refills, Maintenance, 05/05/20 14:02:00 EDT, Powder, [facility]/pharmacy #[id number], 2 puffs Inhalation Every 6 [...] 07/06/20 15:50:00 EST, Route to Pharmacy Electronically, [facility]/pharmacy #[id number], 160.02, cm, 07/03/20 14:54:00 EST, [...] 1 Refills, Maintenance, 09/28/20 11:53:00 EST, Tablet, [facility]/pharmacy #[id number], 160, cm, 09/12/20 14:03:00 EST, [...] 07/06/20 15:48:00 EST, Route to Pharmacy Electronically, [facility]/pharmacy #[id number], 160.02, cm, 07/03/20 14:54:00 EST,Height, 73.6, kg, 04/18/20 10:19:00 EDT, Dry Weight Start Date: 07/06/20 Stop Date: 10/04/20 Status: OrderedHumira 40 mg subcutaneous solution See Instructions, 40 mg [id number], 0 Refills, Maintenance, 10/23/20 13:46:00 EST, Partial fill upon patient request if the prescription is for a schedule II opioid drug. Start Date: 10/23/20 Status: OrderedLyrica 150 mg oral capsule 1 capsule = 150 mg, By Mouth, 2 times a day, DOSAGE INCREASE, # 60 capsule, 3 Refills, Maintenance, 07/04/20 11:46:00 EST, Capsule, [facility]/pharmacy #[id number], 160.02, cm, 07/03/20 14:54:00 EST, Height, 73.6, kg, 04/18/20 10:19:00 EDT, Dry Weight Start Date: 07/04/20 Status: Orderedmagnesium oxide 400 mg (240 mg elemental magnesium) oral tablet 1 tablet, By Mouth, Daily, # 90 tablet, 0 Refills, Acute, 09/20/20 12:20:00 EST, [facility] STORE [id number], 90, TAKE 1 TABLET BY MOUTH DAILY, 160, cm, 09/12/20 14:03:00 EST, Height, 71.3, kg, 08/08/20 7:00:00 EST, Dry Weight Start Date: 09/20/20 Status: OrderedMelatonin 3 mg oral tablet 1 tablet = 3 mg, By Mouth, Daily at bedtime, PRN for insomnia, [facility], # 90 tablet, 3 Refills, Maintenance, 04/24/20 9:53:00 EDT, Tablet, [facility]/pharmacy #[id number], 1 tablet By Mouth Daily [...] if th... Start Date: 08/30/20 Status: OrderedPen [place], 31 G x 5 mm BD Ultra [...] 06/28/20 9:31:00 EST, Route to Pharmacy Electronically, [facility]/pharmacy #[id number], 160.02, cm, 06/01/20 11:03:00 EDT, [...] # 9 Unknown, 5 Refills, 06/20/20 15:08:00EDT, [facility]/pharmacy #[id number], 160.02, cm, 06/01/20 11:03:00 EDT, Height, 73.6, kg, 04/18/20 10:19:00 EDT,Dry Weight Start Date: 06/20/20 Status: OrderedVitamin D3 1000 intl units oral capsule 1 capsule = 1,000 International_Units, By Mouth, Daily, # 90 capsule, 1 Refills, Maintenance, 09/25/20 7:44:00 EST, Capsule, [facility]/pharmacy #[id number], resent from 08/14, 160, cm, 09/12/20 14:03:00 EST, Height, 71.3, kg, 08/08/20 7:00:00 EST, Dry Weight Start Date: 09/25/20 Status: OrderedWellbutrin XL 300 mg/24 hours oral tablet, extended release 1 tablet = 300 mg, By Mouth, Daily, DOSAGE INCREASE, # 30 tablet, 5 Refills, Maintenance, 07/03/20 15:20:00 EST, ER Tablet, [facility]/pharmacy #[id number], 160.02, cm, 07/03/20 14:54:00 EST, Height, 73.6, kg, 04/18/20 10:19:00 EDT, Dry Weight Start Date: 07/03/20 Status: OrderedZoloft 25 mg oral tablet 1 tablet = 25 mg, By Mouth, Daily, # 30 tablet, 0 Refills, Maintenance, 10/16/20 14:17:00 EST, Tablet, [facility]/pharmacy #[id number], Partial fill upon patient request [...] cervical(Confirmed) Osteoporosis(Confirmed) Active *[facility] [phone] 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 50-70% bilaterally.3Patient's audio video mechanic is [facility] and patient sees Dr. Gume Mart Vital Signs Most recent to oldest [Reference Range]: 1 Height 160 cm (10/16/20 1:53 PM) Social History Social History Type Response Tobacco Other: last cigarette 0. Sex
--- OUTSIDE RECORDS SUMMARY | 2022-06-09 08:53 | XMS_ITS | Continuity of Care Document ---
:1950 Author Organization [facility] Adult Address [address] [place] [address]- Care Team Providers Name Role Phone Ranjeet Rushing MD Primary Care Physician [facility]): 07/06/20 - 08/05/20 [facility] [address] [place] [address]- Allergies, Adverse Reactions, Alerts Substance Reaction Severity [...] (PPV23) (oldterm)11 07/19/08 Given 1Result Comment: [05/28/2017] [facility]: [id number] History: CMR2Tbimi Note: VIS GIVEN-DATED Admin Note: vis tqagx6Castg Note: VIS [id number] Note: VIS-[id number] History: [facility] [id number] History: [facility] DEANGELO Gray Comment: [10/17/2015] PER NICO AT [id number] Note: VIS [id number] Note: VIS GIVEN Medications 12 inch Grab [...] 11 Refills, Maintenance, 05/05/20 14:02:00 EDT, Powder, [facility]/pharmacy #[id number], 2 puffs Inhalation Every 6 hours,PRN:as needed, 160.02, cm, 05/05/20 13:43:00 EDT, Height, 73.6, kg, 04/18/20 10:1... Start Date: 05/05/20 Status: Orderedalendronate 70 mg oral tablet 1 tablet, By Mouth, Every week, # 12 tablet, 0 Refills, Maintenance, 06/01/20 9:05:00 EDT, [facility]/pharmacy #0693, 160.02, cm, 05/09/20 12:34:00 EDT, Height, 73.6, kg, 04/18/20 10:19:00 EDT, Dry Weight Start Date: 06/01/20 Status: Orderedallopurinol 300 mg oral tablet 300 mg, 1, tablet, By Mouth, Daily, # 90 tablet, Refills 0, Tot. Refills 0, Maintenance, 07/06/20 15:50:00 EST, Route to Pharmacy Electronically, [facility]/pharmacy #[id number], 160.02, cm, 07/03/20 [...] 07/06/20 15:48:00 EST, Route to Pharmacy Electronically, [facility]/pharmacy #0693, 160.02, cm, 07/03/20 [...] 3 Refills, Maintenance, 07/04/20 11:46:00 EST, Capsule, [facility]/pharmacy #0693, 160.02, cm, 07/03/20 14:54:00 EST, Height, 73.6, kg, 04/18/20 10:19:00 EDT, Dry Weight Start Date: 07/04/20 Status: Orderedmagnesium oxide 400 mg oral tablet 1 tablet = 400 mg, By Mouth, Daily, PER RAJNI CARDONA, # 90 tablet, 0 Refills, Maintenance, 06/28/20 12:11:00 EST, [facility]/pharmacy #[id number], 160.02, cm, 06/01/20 11:03:00 EDT, Height, 73.6, kg, 04/18/20 10:19:00 EDT, Dry Weight Start Date: 06/28/20 Status: OrderedMelatonin 3 mg oral tablet 1 tablet = 3 mg, By Mouth, Daily at bedtime, PRN for insomnia, [facility], # 90 tablet, 3 Refills, Maintenance, 04/24/20 9:53:00 EDT, Tablet, [facility]/pharmacy #[id number], 1 tablet By [...] each, 5 Refills, Maintenance, 02/21/20 11:53:00 EDT, [facility]/pharmacy #[id number], 301-350: 12 units, 351-400: 14 units, 401-450: 1... Start Date: 02/21/20 Status: OrderedoxyCODONE 5 mg oral capsule 1 capsule = 5 mg, By Mouth, Every 6 hours, PRN as needed for pain, 0 Refills, Maintenance, 06/01/20 11:12:00 EDT, Capsule, Partial fill upon patient request Start Date: 06/01/20 Status: OrderedPen [place], 31 G x 5 mm BD Ultra [...] 06/28/20 9:31:00 EST, Route to Pharmacy Electronically, [facility]/pharmacy #[id number], 160.02, cm, 06/01/20 11:03:00 EDT, Height, 73.6, kg, 04/18/20 10:19:00 EDT,... Start Date: 06/28/20 Status: Orderedspironolactone 100 mg oral tablet 1, tablet, By Mouth, Daily, # 30 tablet, Refills 2, Tot. Refills 2, Maintenance, 05/16/20 16:31:00 EDT, [id number] 160.[facility], cm, 05/09/20 12:34:00 EDT, Height, 73.6, kg, 04/18/20 10:19:00 EDT, Dry Weight Start Date: 05/16/20 Status: OrderedtraMADol 50 mg oral tablet See Instructions, PRN Pain , Severe, 1-2 tablets by mouth every 6 hours Schedule follow visit, # 240tablet, 1 Refills, Soft Stop, 05/19/20 16:27:00 EDT, [facility]/pharmacy #[id number], 160.02, cm, 05/09/20 [...] 5 Refills, Soft Stop, 12/16/19 15:45:00 EDT, [facility]/pharmacy #[id number], 160.02, cm, 11/02/19 [...] Refills, Maintenance, 07/03/20 15:20:00 EST, ER Tablet, [facility]/pharmacy #[id number], 160.02, cm, 07/03/20 [...] OA (osteoarthritis), Active cervical(Confirmed) Osteoporosis(Confirmed) Active *[facility] [phone] 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 50-70% bilaterally.3Patient's corsets salesperson is [facility] and patient sees Dr. Gume Mart Social History Social History Type Response Smoking Status Current some day smoker; Typ e: Cigarettes; Other: less than 1/2 pack a day; Tobacco use times per day: 1/2 pack a day; entered on: 02/19/17 Sex
--- OUTSIDE RECORDS SUMMARY | 2022-06-09 08:54 | XMS_ITS | Continuity of Care Document ---
:1950 Author Organization [facility] [place] Address [address] [place] [address]- Care Team Providers Name Role Phone Ranjeet Rushing MD Primary Care Physician [facility]): 03/11/22 - 04/10/22 [facility] [place] [address] [place] [address]- Allergies, Adverse Reactions, Alerts Substance Reaction Severity [...] Comment: [05/28/2017] [facility]: [id number] History: [id number] Note: VIS GIVEN-DATED Admin Note: vis [id number] Note: VIS [id number] Note: VIS-[id number] History: [facility] [id number] History: [facility] [id number] Comment: [10/17/2015] PER NICO AT [id number] Note: VIS [id number] Note: VIS GIVEN Medications 12 inch Grab [...] 11 Refills, Maintenance, 05/05/20 14:02:00 EDT, Powder, [facility]/pharmacy #[id number], 2 puffs Inhalation Every 6 hours,PRN:as needed, 160.02, cm, 05/05/20 13:43:00 EDT, Height, 73.6, kg, 04/18/20 10:1... Start Date: 05/05/20 Status: Orderedalendronate 70 mg oral tablet 1 tablet, By Mouth, Every week, # 12 tablet, 1 Refills, [facility], 160, cm, 01/17/22 14:38:00 EDT, Height, 74.8, kg, 11/01/21 15:05:00 EST, Dry Weight Start Date: 01/30/22 Status: Orderedallopurinol 300 mg oral tablet 1, tablet, By Mouth, Daily, # 90 tablet, Refills 0, Route to Pharmacy Electronically, [facility], 160, cm, 02/21/22 15:11:00 EDT, Height, 74.8, kg, 11/01/21 15:05:00 EST, Dry Weight Start Date: 03/27/22 Status: OrderedBACK BRACE BACK BRACE, See Instructions, # 1 each, Refills 0, Tot. Refills 0, Maintenance, DX BACK PAIN M54.9 DANTE LIFETIME HT 5'3 WT 182 LB, 07/23/16 14:35:27, Compound Start Date: 07/23/16 Status: OrderedBD UF SHORT PEN NEEDLE 5XKO98P BD UF SHORT PEN NEEDLE 7LWO08X, See Instructions, # 200 Unknown, 5 Refills, USE TO INJECT INSULIN TWICE A DAY, 160, cm, 11/27/21 14:08:00 EDT, Height, 74.8, kg, 11/01/21 15:05:00 EST, Dry Weight Start Date: 11/30/21 Status: OrderedbuPROPion 300 mg/24 hours (XL) oral tablet, extended release 1 tablet, By Mouth, Daily, # 30 tablet, 5 Refills, [facility], 160, cm, 02/04/22 13:44:00 EDT, Height, 74.8, [...] Status: OrderedCVS VITAMIN D3 25 MCG SOFTGEL [facility] VITAMIN D3 25 MCG SOFTGEL, 1, capsule, By Mouth, Daily, # 90 capsule, 1 Refills, 160, cm, 10/16/21 14:42:00 EST, Height, 75, kg, 09/14/21 11:51:00 EST, Dry Weight Start Date: 10/17/21 Status: Orderedcyanocobalamin 500 mcg oral tablet 1 tablet = 500 mcg, By Mouth, Daily, # 90 tablet, 1 Refills, Maintenance, 09/18/21 11:52:00 EST, Tablet, [facility]/pharmacy #[id number], 160, cm, 09/14/21 11:51:00 EST, [...] 1 Refills, Maintenance, 02/21/22 16:12:00 EDT, Tablet, [facility]/pharmacy #[id number], Partial fill upon patient [...] 1, Route to Pharmacy Electronically, [facility], 160, cm, 02/21/22 15:11:00 EDT, Height, 74.8, kg, 11/01/21 15:05:00 EST, Dry Weight Start Date: 03/12/22 Status: OrderedLidoderm 5% film 1 patch, Topically, Daily, # 30 patch, 11 Refills, Maintenance, 12/28/21 15:03:00 EDT, [facility]/pharmacy #[id number], Partial fill upon patient request if the prescription is for a schedule II opioid drug., 1 patch Topically Daily,x30 days, 160, cm, 11/27/21 14:... Start Date: 12/28/21 Stop Date: 12/23/22 Status: OrderedLyrica 150 mg oral capsule 1 capsule = 150 mg, By Mouth, 2 times a day, DOSAGE INCREASE, # 60 capsule, 3 Refills, Maintenance, 03/26/22 10:58:00 EDT, Capsule, [facility]/pharmacy #0693, 160, cm, 02/21/22 15:11:00 EDT, Height, 74.8, kg,11/01/21 15:05:00 EST, Dry Weight Start Date: 03/26/22 Status: Orderedmagnesium oxide 400 mg oral tablet 1 tablet, By Mouth, Daily, # 100 tablet, 2 Refills, [facility] ST[facility] 127[facility], 160, cm, 02/21/22 15:11:00 EDT,Height, 74.8, kg, 11/01/21 15:05:00 EST, Dry Weight Start Date: 03/28/22 Status: OrderedMelatonin 3 mg oral tablet 1 tablet = 3 mg, By Mouth, Daily at bedtime, PRN for insomnia, [facility] brand, # 90 tablet, 3 Refills, Maintenance, 10/17/21 12:02:00 EST, Tablet, [facility]/pharmacy #[id number], 1 tablet By Mouth Daily at bedtime,PRN:for insomnia,Instr:[facility] brand, 160, cm, 10/16/21 14... Start Date: [...] Acute 04/29/22 0:00:00 EDT, 04/08/22 10:39:00 EDT,Patch, [facility]/pharmacy #0693, Partial fill upon patient [...] 09/15/21 17:53:00 EST, Route to Pharmacy Electronically, [facility]/pharmacy #0693, 160, cm, 09/14/21 11:51:00 EST, [...] tablet, Refills 1, Route to Pharmacy Electronically, [facility] ST[facility], 160, cm, 11/27/21 14:08:00 EDT, Height, 74.8, kg, 11/01/21 15:05:00 EST, Dry Weight Start Date: 01/11/22 Status: OrderedtraMADol 50 mg oral tablet See Instructions, TAKE 1-2 TABLETS BY MOUTH EVERY 6 HOURS SCHEDULE FOLLOW VISIT, NEEDED FOR PAIN,# 240 tablet, 5 Refills, Maintenance, 01/17/22 11:33:00 EDT, [facility]/pharmacy #0693, 160, cm, 11/27/21 14:08:00 EDT, [...] 3 Refills, Maintenance, 04/19/21 11:35:00 EDT, Powder, [facility]/pharmacy #0693, Partial fill upon patient [...] 11 Refills, Soft Stop, 07/26/21 11:05:00 EST, [facility]/pharmacy #0693, 160, cm, 07/26/21 10:45:00 EST, [...] ONCE DAILY, # 9 Unknown, 5 Refills, [facility] ST[facility], 160, cm, 09/07/21 15:03:00 EST, Height, 77.27, kg, 03/24/21 20:58:00 EDT, Dry Weight Start Date: 09/11/21 Status: OrderedVitamin D3 1000 intl units oral capsule 1 capsule = 1,000 International_Units, By Mouth, Daily, # 90 capsule, 1 Refills, Maintenance, 09/25/20 7:44:00 EST, Capsule, [facility]/pharmacy #0693, resent from 08/14, 160, cm, [...] *[facility] [phone] 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 50-70% bilaterally.3Patient's assistant inventory manager is [facility] and patient sees Dr. Gume Mart Social History Social History Type Response Smoking Status Former smoker, quit more mark n 30 days ago entered on: 09/28/21 Sex
--- OUTSIDE RECORDS SUMMARY | 2022-06-09 08:54 | XMS_ITS | Continuity of Care Document ---
:1950 Author Organization [facility] Address [address] [place] [address]- Care Team Providers Name Role Phone Ranjeet Del Rosario MD Primary Care Physician [facility]): 08[facility]19 - 08/26/19 [facility] [address] [place] [address]- [facility] Attending Physician: Admtr, Ye8 Admitting Physician: Admtr, [...] (PPV23) (oldterm)11 07/19/08 Given 1Result Comment: [05/28/2017] [facility]: [id number] History: [id number] Note: VIS GIVEN-DATED Admin Note: vis [id number] Note: VIS fjeot2Mmikk Note: VIS-EAJGM5Pfucpfuh History: [facility] [id number] History: [facility] DEANGELO Gray Comment: [10/17/2015] PER NICO AT [id number] Note: VIS [id number] Note: VIS GIVEN Medications albuterol 90 mcg/inh [...] 1 TABLET BY MOUTH EVERY DAY, [facility]/pharmacy #[id number] Start Date: 06/09/19 Status: OrderedBACK BRACE [...] Refills, Maintenance, 08/16/19 13:14:00 EST, Tablet, [facility]/pharmacy #[id number], 1 tablet By Mouth 2 times [...] TABLET BY MOUTH AT BEDTIME NEEDEDFOR INSOMNIA, [facility]/pharmacy #0693 Start Date: 03/02/19 Status: OrderedCVS VITAMIN D3 1,000 UNIT SFGL See Instructions, # 90 capsule, TAKE 1 CAPSULE BY MOUTH EVERY DAY, [facility]/pharmacy #0693 Start Date: 04/20/19 Status: Orderedcyanocobalamin 500 [...] each, 0 Refills, Maintenance, 01/01/19 14:36:12 EDT, [place], 2 sprays Nares, Both Daily in AM [...] 1 TABLET BY MOUTH TWICE A DAY, [facility]/pharmacy #0693 Start Date: 06/02/19 Status: Orderedgabapentin 300 mg oral capsule See Instructions, # 90 capsule, Refills 5 Tot. Refills 5, TAKE 1 CAPSULE BY MOUTH THREE TIMES A DAY,[facility]/pharmacy #0693 Start Date: 06/30/19 Status: Orderedmagnesium oxide [...] Call PCP... Start Date: 10/29/17 Status: OrderedPen [place], 31 G x 5 mm BD Ultra [...] 07/20/19 16:14:12 EST, Route to Pharmacy Electronically, [id number], [facility]/pharmacy #[id number] Start Date: 07/20/19 Status: Orderedspironolactone 100 mg oral tablet See Instructions, # 30 tablet, Refills 5 Tot. Refills 5, TAKE 1 TABLET BY MOUTH EVERY DAY, [facility]/pharmacy #0693 Start Date: 06/23/19 Status: OrderedtraMADol 50 mg oral tablet See Instructions, TAKE 1 TO 2 TABLETS BY MOUTH EVERY 6 HOURS, # 240 tablet, 1 Refills, Soft Stop, 08/23/19 16:39:00 EST, [facility]/pharmacy #[id number], 160.02, cm, 08/16/19 12:59:00 EST, Height, [...] UNITS DAILY, MAX DOSE 140 UNITS, 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 50-70% bilaterally.3Patient's burlesque dancer is [facility] and patient sees Dr. Gume Mart Social History Social History Type Response Smoking Status Current some day smoker; Typ e: Cigarettes; Other: less than 1/2 pack a day; Tobacco use times per day: 1/2 pack a day; entered on: 02/19/17 Sex
--- OUTSIDE RECORDS SUMMARY | 2022-06-09 08:54 | XMS_ITS | Continuity of Care Document ---
:1950 Author Organization [address], [address] [place] [address]- Care Team Providers Name Role Phone Ranjeet Rushing MD Primary Care Physician [facility]counter [facility] Date(s): 11/19/21 - 12/19/[address], [address] [place], [place] [address] Allergies, Adverse Reactions, Alerts Substance Reaction [...] Given 1Result Comment: [05/28/2017] [facility]: [id number] History: [id number] Note: VIS GIVEN-DATED Admin Note: vis [id number] Note: VIS [id number] Note: [id number] History: [facility] [id number] History: [facility] [id number] Comment: [10/17/2015] PER NICO AT EJC27Reqof Note: VIS [id number] Note: VIS GIVEN Medications 12 inch Grab [...] Refills, Maintenance, 01/09/21 16:07:00 EDT, [facility], 160, cm, 12/25/20 14:20:00 EDT, Height, 77.5, kg, 10/05/20 14:31:00 EST, Dry Weight Start Date: 01/09/21 Status: Orderedallopurinol 300 mg oral tablet 1, tablet, By Mouth, Daily, # 90 tablet, Refills 1, Route to Pharmacy Electronically, [facility], 160, cm, 06/19/21 13:57:00 EDT, Height, 77.27, kg, 03/24/21 20:58:00 EDT, Dry Weight Start Date: 07/09/21 Status: OrderedBACK BRACE BACK BRACE, See Instructions, # 1 each, Refills 0, Tot. Refills 0, Maintenance, DX BACK PAIN M54.9 DANTE LIFETIME HT 5'3 WT 182 LB, 07/23/16 14:35:27, Compound Start Date: 07/23/16 Status: OrderedBD UF SHORT PEN NEEDLE [id number] BD UF SHORT PEN NEEDLE [id number], See Instructions, # 200 Unknown, 5 Refills, USE TO INJECT INSULIN TWICE A DAY, 160, cm, 11/27/21 14:08:00 EDT, Height, 74.8, kg, 11/01/21 15:05:00 EST, Dry Weight Start Date: 11/30/21 Status: OrderedbuPROPion 300 mg/24 hours (XL) oral tablet, extended release 1 tablet, By Mouth, Daily, # 30 tablet, 5 Refills, Maintenance, 08/30/21 7:54:00 EST, [facility]/pharmacy #[id number], 160, cm, 07/26/21 10:45:00 EST, [...] tablet, 1 Refills, Maintenance,11/13/21 15:13:00 EDT, Tablet, [facility]/pharmacy #[id number], Partial fill upon patient request [...] 1, Route to Pharmacy Electronically, [facility], 160, cm, 10/15/21 15:03:00 EST, Height, 75, kg, 09/14/21 11:51:00 EST, Dry Weight Start Date: 10/16/21 Status: OrderedLyrica 150 mg oral capsule 1 capsule = 150 mg, By Mouth, 2 times a day, DOSAGE INCREASE, # 60 capsule, 3 Refills, Maintenance, 11/12/21 16:27:00 EDT, Capsule, [facility]/pharmacy #[id number], 160, cm, 11/01/21 15:12:00 EST, Height, 74.8, kg,11/01/21 15:05:00 EST, Dry Weight Start Date: 11/12/21 Status: Orderedmagnesium oxide 400 mg (240 mg elemental magnesium) oral tablet 1 tablet, By Mouth, Daily, # 90 tablet, 0 Refills, Acute, 09/20/20 12:20:00 EST, [facility], 90, TAKE 1 TABLET BY MOUTH DAILY, 160, cm, 09/12/20 14:03:00 EST, Height, 71.3, kg, 08/08/20 7:00:00 EST, Dry Weight Start Date: 09/20/20 Status: Orderedmagnesium oxide 400 mg oral tablet 1 tablet = 400 mg, By Mouth, Daily, # 100 tablet, 2 Refills, Maintenance, 06/05/21 11:32:00 EDT, Tablet, [facility]/pharmacy #0693, Partial fill upon patient request if the prescription is for a schedule II opioid drug., 160, cm, 05/21/21 11:03:00 EDT, Tobiigh... Start Date: 06/05/21 Status: OrderedMelatonin 3 mg oral tablet 1 tablet = 3 mg, By Mouth, Daily at bedtime, PRN for insomnia, [facility], # 90 tablet, 3 Refills, Maintenance, 10/17/21 12:02:00 EST, Tablet, [facility]/pharmacy #0693, 1 [...] EDT, Injec... Start Date: 06/11/21 Status: OrderedPen Greer, 31 G x 5 mm BD Ultra [...] 09/15/21 17:53:00 EST, Route to Pharmacy Electronically, [facility]/pharmacy #[id number], 160, cm, 09/14/21 11:51:00 EST, [...] 07/23/21 13:10:00 EST, Route to Pharmacy Electronically, [facility]/pharmacy #[id number], Partial fill upon patient request if the prescription is for a schedule II opioid thomas... Start Date: 07/23/21 Stop Date: 01/19/22 Status: OrderedtraMADol 50 mg oral tablet See Instructions, TAKE 1-2 TABLETS BY MOUTH EVERY 6 HOURS SCHEDULE FOLLOW VISIT, NEEDED FOR PAIN,# 240 tablet, 5 Refills, Maintenance, 05/31/21 9:52:00 EDT, [facility]/pharmacy #[id number], 160, cm, 05/21/21 11:03:00 EDT, [...] # 9 Unknown, 5 Refills, [facility], 160, cm, 09/07/21 15:03:00 EST, Height, 77.27, kg, 03/24/21 20:58:00 EDT, Dry Weight Start Date: 09/11/21 Status: OrderedVitamin D3 1000 intl units oral capsule 1 capsule = 1,000 International_Units, By Mouth, Daily, # 90 capsule, 1 Refills, Maintenance, 09/25/20 7:44:00 EST, Capsule, [facility]/pharmacy #[id number], resent from 08/14, 160, cm, [...] Active OA (osteoarthritis), Active cervical(Confirmed) Osteoporosis(Confirmed) Active *[facility] [phone] 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 50-70% bilaterally.3Patient's weapons system instrument mechanic is [facility] and patient sees Dr. Gume Mart Social History Social History Type Response Smoking Status Former smoker, quit more mark n 30 days ago entered on: 09/28/21 Sex
--- OUTSIDE RECORDS SUMMARY | 2022-06-09 08:54 | XMS_ITS | Continuity of Care Document ---
:1950 Author Organization [facility] Address [address] [place] [address]- Care Team Providers Name Role Phone Kristan SUTTON, Ranjeet Beatty Primary Care Physician [place] [facility] [place] - 06/08/20 [facility] [address] [place] [address]- [facility] Attending Physician: Sin SUTTON, Mustapha Admitting Physician: [...] Given 1Result Comment: [05/28/2017] [facility]: [id number] History: [id number] Note: VIS GIVEN-DATED Admin Note: vis [id number] Note: VIS [id number] Note: [id number] History: [facility] [place] [id number] History: [facility] DEANGELO Gray Comment: [10/17/2015] PER NICO AT [id number] Note: VIS [id number] Note: VIS GIVEN Medications albuterol 90 mcg/inh [...] tablet, 0 Refills, Maintenance, 06/01/20 9:05:00 EDT, [facility]/pharmacy #[id number], 160.02, cm, 05/09/20 12:34:00 EDT, Height, 73.6, kg, 04/18/20 10:19:00 EDT, Dry Weight Start Date: 06/01/20 Status: Orderedallopurinol 300 mg oral tablet 1, tablet, By Mouth, Daily, # 90 tablet, Refills 0, Tot. Refills 0, Maintenance, 04/05/20 9:38:00 EDT, Route to Pharmacy Electronically, [facility]/pharmacy #[id number], 160.02, cm, 03/29/20 10:57:00 [...] 0 Refills, Maintenance, 06/01/20 12:01:00 EDT, Capsule, [facility]/pharmacy #0693, 160.02, cm, [...] TAKE 1 CAPSULE BY MOUTH EVERY DAY, [facility]/pharmacy #[id number] Start Date: 04/20/19 Status: Orderedcyanocobalamin 500 mcg oral tablet 1 tablet = 500 mcg, By Mouth, Daily, # 90 tablet, 0 Refills, Maintenance, 02/11/20 13:33:00 EDT, Tablet, [facility]/pharmacy #0693, 160.02, cm, 02/11/20 13:03:00 [...] 04/07/20 11:50:00 EDT, Route to Pharmacy Electronically, [facility]/pharmacy #[id number], 160.02, cm, 03/29/20 10:57:00 EDT,Height, 81.6, kg, 07/27/19 14:52:00 EST, Dry Weight Start Date: 04/07/20 Status: Orderedgabapentin 300 mg oral capsule 300 mg, 1, capsule, By Mouth, 3 times a day, # 90 capsule, Refills 5, Tot. Refills 5, Maintenance, 04/13/20 12:42:00 EDT, Route to Pharmacy Electronically, [facility]/pharmacy #[id number], 160.02, cm, 03/29/20 10:57:00 [...] 1 Refills, Maintenance, 05/12/20 14:54:00 EDT, Capsule, [facility]/pharmacy #0693, 160.02, cm, 05/09/20 12:34:00 [...] each, 5 Refills, Maintenance, 02/21/20 11:53:00 EDT, [facility]/pharmacy #[id number], 301-350: 12 units, 351-400: 14 units, 401-450: 1... Start Date: 02/21/20 Status: OrderedoxyCODONE 5 mg oral capsule 1 capsule = 5 mg, By Mouth, Every 6 hours, PRN as needed for pain, 0 Refills, Maintenance, 06/01/20 11:12:00 EDT, Capsule, Partial fill upon patient request Start Date: 06/01/20 Status: OrderedPen [place], 31 G x 5 mm BD Ultra [...] 07/20/19 16:14:12 EST, Route to Pharmacy Electronically, [id number], [facility]/pharmacy #[id number] Start Date: 07/20/19 Status: Orderedspironolactone 100 mg oral tablet 1, tablet, By Mouth, Daily, # 30 tablet, Refills 2, Tot. Refills 2, Maintenance, 05/16/20 16:31:00 EDT, Route to Pharmacy Electronically, [facility]/pharmacy #[id number], 160.02, cm, 05/09/20 12:34:00 EDT, Height, 73.6, kg, 04/18/20 10:19:00 EDT, Dry Weight Start Date: 05/16/20 Status: OrderedtraMADol 50 mg oral tablet See Instructions, PRN Pain , Severe, 1-2 tablets by mouth every 6 hours Schedule follow visit, # 240tablet, 1 Refills, Soft Stop, 05/19/20 16:27:00 EDT, [facility]/pharmacy #[id number], 160.02, cm, 05/09/20 12:34:00 [...] 5 Refills, Soft Stop, 12/16/19 15:45:00 EDT, [facility]/pharmacy #[id number], 160.02, cm, 11/02/19 15:34:00 EDT, Height, 81.6, kg, 07/27/19 14:52:00 EST, Dry Weight Start Date: 12/16/19 Status: OrderedVictoza 18 mg/3 mL subcutaneous solution See Instructions, INJECT 1.8 MG UNDER THE SKIN ONCE DAILY, # 9 Unknown, 0 Refills, Maintenance, [facility], 160.02, cm, 05/09/20 12:34:00 EDT, Height, 73.6, kg, 04/18/20 10:19:00 EDT, Dry Weight Start Date: 05/26/20 Status: OrderedVitamin D3 1000 intl units oral capsule 1 capsule = 1,000 International_Units, By Mouth, Daily, # 90 capsule, 3 Refills, Maintenance, 10/20/19 9:16:00 EST, Capsule, [facility]/pharmacy #[id number], resent from 08/14, 160.02, cm, 09/29/19 14:57:00 EST, Height, 81.6, kg, 07/27/19 14:52:00 EST, Dry Weight Start Date: 10/20/19 Status: OrderedWellbutrin XL 150 mg/24 hours oral tablet, extended release 1 tablet = 150 mg, By Mouth, Every 24 hours, do not crush or chew, # 30 tablet, 6 Refills, Maintenance, 12/09/19 16:12:00 EDT, ER Tablet, [facility]/pharmacy #[id number], 160.02, cm, 11/02/19 15:34:00 [...] Active cervical(Confirmed) Osteoporosis(Confirmed) Active *[facility] [phone] 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 uGme Mart Social History Social History Type Response Smoking Status Current some day smoker; Typ e: Cigarettes; Other: less than 1/2 pack a day; Tobacco use times per day: 1/2 pack a day; entered on: 02/19/17 Sex
--- OUTSIDE RECORDS SUMMARY | 2022-06-09 08:54 | XMS_ITS | Continuity of Care Document ---
:1950 Author Organization [facility] Address [address] [place] [address]- Care Team Providers Name Role Phone Ranjeet Rushing MD Primary Care Physician Encounter [facility] Date(s): 08/07/21 - 09/06/21 [facility] [address] [place] [address]- Allergies, Adverse Reactions, Alerts Substance Reaction Severity [...] Given 1Result Comment: [05/28/2017] [facility]: [id number] History: [id number] Note: VIS GIVEN-DATED Admin Note: vis [id number] Note: VIS [id number] Note: VIS-[id number] History: [facility] [id number] History: [facility] Isaac Comment: [10/17/2015] PER NICO AT [id number] Note: VIS [id number] Note: VIS GIVEN Medications 12 inch Grab [...] Refills, Maintenance, 01/09/21 16:07:00 EDT, [facility], 160, cm, 12/25/20 14:20:00 EDT, Height, 77.5, kg, 10/05/20 14:31:00 EST, Dry Weight Start Date: 01/09/21 Status: Orderedallopurinol 300 mg oral tablet 1, tablet, By Mouth, Daily, # 90 tablet, Refills 1, Route to Pharmacy Electronically, [facility], 160, cm, 06/19/21 13:57:00 EDT, Height, 77.27, [...] Refills, Maintenance, 08/30/21 7:54:00 EST, [facility]/pharmacy #[id number], 160, cm, 07/26/21 10:45:00 [...] Refills, Maintenance, 02/08/21 9:52:00 EDT, Tablet, [facility]/pharmacy #[id number], 160, cm, 01/25/21 14:11:00 [...] Electronically, [facility]/pharmacy #[id number], 160, cm, 01/25/21 14:11:00 EDT, Height, 77.5, kg, 10/05/20 14:31:00 EST, Dry Weight Start Date: 02/06/21 Stop Date: 08/05/21 Status: OrderedLyrica 150 mg oral capsule 1 capsule = 150 mg, By Mouth, 2 times a day, DOSAGE INCREASE, # 60 capsule, 3 Refills, Maintenance, 07/09/21 14:12:00 EST, Capsule, [facility]/pharmacy #[id number], 160, cm, 06/19/21 13:57:00 EDT, Height, 77.27, kg, 03/24/21 20:58:00 EDT, Dry Weight Start Date: 07/09/21 Status: Orderedmagnesium oxide 400 mg (240 mg elemental magnesium) oral tablet 1 tablet, By Mouth, Daily, # 90 tablet, 0 Refills, Acute, 09/20/20 12:20:00 EST, [facility], 90, TAKE 1 TABLET BY MOUTH DAILY, 160, cm, 09/12/20 14:03:00 EST, Height, 71.3, kg, 08/08/20 7:00:00 EST, Dry Weight Start Date: 09/20/20 Status: Orderedmagnesium oxide 400 mg oral tablet 1 tablet = 400 mg, By Mouth, Daily, # 100 tablet, 2 Refills, Maintenance, 06/05/21 11:32:00 EDT, Tablet, [facility]/pharmacy #[id number], Partial fill upon patient [...] Daily at bedtime,PRN:for insomnia,[facility], 160.02, cm, 08/25/20... Start Date: 04/24/20 Status: OrderedMiconazole 2% Topical [...] EDT, Injec... Start Date: 06/11/21 Status: OrderedPen [place], 31 G x 5 mm BD Ultra [...] Pharmacy Electronically, [facility]/pharmacy #[id number], 160, cm, 12/25/20 14:20:00 EDT, Height, 77.5, kg, 10/05/20 14:31:00 EST, Start Date: 01/09/21 Status: Orderedspironolactone 100 mg oral tablet 100 mg, 1, tablet, By Mouth, Daily, # 90 tablet, Refills 1, Tot. Refills 1, Maintenance, 07/23/21 13:10:00 EST, Route to Pharmacy Electronically, [facility]/pharmacy #[id number], Partial fill upon patient request if the prescription is for a schedule II opioid geovanny. Start Date: 07/23/21 Stop Date: 01/19/22 Status: OrderedtraMADol 50 mg oral tablet See Instructions, TAKE 1-2 TABLETS BY MOUTH EVERY 6 HOURS SCHEDULE FOLLOW VISIT, NEEDED FOR PAIN,# 240 tablet, 5 Refills, Maintenance, 05/31/21 9:52:00 EDT, [facility]/pharmacy #[id number], 160, cm, 05/21/21 11:03:00 [...] Maintenance, 04/19/21 11:35:00 EDT, Powder, [facility]/pharmacy #[id number], Partial fill upon patient [...] # 9 Unknown, 2 Refills, [facility], 160, cm, 06/19/21 13:57:00 EDT, Height, 77.27, [...] cervical(Confirmed) Osteoporosis(Confirmed) Active *[facility] [phone] 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 Gume Mart Social History Social History Type Response Tobacco Other: last cigarette 0. Sex
--- OUTSIDE RECORDS SUMMARY | 2022-06-09 08:54 | XMS_ITS | Continuity of Care Document ---
:1950 Author Organization [facility] Address [address] [place] [address]- Care Team Providers Name Role Phone Ranjeet Rushing MD Primary Care Physician [facility]counter [facility] Date[facility]s): 08/06/21 - 09/05/21 [facility] [address] [place] [address]- Allergies, Adverse Reactions, Alerts Substance Reaction Severity Status Benadryl Active Latex Active Ambien Active Lac-Hydrin Active Immunizations Given and Recorded [...] 07/19/08 Given 1Result Comment: [05/28/2017] [facility]: [id number] History: [id number] Note: VIS GIVEN-DATED Admin Note: vis [id number] Note: VIS [id number] Note: VIS-[id number] [place] [facility]J6Ltiiicin History: [facility] [id number] Comment: [10/17/2015] PER NICO AT [id number] Note: VIS ONMTH20Izcen Note: VIS GIVEN Medications 12 inch Grab [...] 11 Refills, Maintenance, 05/05/20 14:02:00 EDT, Powder, [facility]/pharmacy #0693, 2 puffs Inhalation Every 6 hours,PRN:as needed, 160.02, cm, 05/05/20 13:43:00 EDT, Height, 73.6, kg, 04/18/20 10:1... Start Date: 05/05/20 Status: Orderedalendronate 70 mg oral tablet 1 tablet, By Mouth, Every week, # 12 tablet, 6 Refills, Maintenance, 01/09/21 16:07:00 EDT, [facility] ST[facility], 160, cm, 12/25/20 14:20:00 EDT, Height, 77.5, kg, 10/05/20 14:31:00 EST, Dry Weight Start Date: 01/09/21 Status: Orderedallopurinol 300 mg oral tablet 1, tablet, By Mouth, Daily, # 90 tablet, Refills 1, Route to Pharmacy Electronically, [facility], 160, cm, 06/19/21 13:57:00 EDT, Height, 77.27, [...] tablet, 5 Refills, Maintenance, 08/30/21 7:54:00 EST, [facility]/pharmacy #[id number], 160, cm, 07/26/21 10:45:00 EST, [...] 02/06/21 9:05:00 EDT, Route to Pharmacy Electronically, [facility]/pharmacy #[id number], 160, cm, 01/25/21 14:11:00 EDT, Height, 77.5, kg, 10/05/20 14:31:00 EST, Dry Weight Start Date: 02/06/21 Stop Date: 08/05/21 Status: OrderedLyrica 150 mg oral capsule 1 capsule = 150 mg, By Mouth, 2 times a day, DOSAGE INCREASE, # 60 capsule, 3 Refills, Maintenance, 07/09/21 14:12:00 EST, Capsule, [facility]/pharmacy #[id number], 160, cm, 06/19/21 13:57:00 EDT, Height, 77.27, kg, 03/24/21 20:58:00 EDT, Dry Weight Start Date: 07/09/21 Status: Orderedmagnesium oxide 400 mg (240 mg elemental magnesium) oral tablet 1 tablet, By Mouth, Daily, # 90 tablet, 0 Refills, Acute, 09/20/20 12:20:00 EST, [facility] 239[facility], 90, TAKE 1 TABLET BY MOUTH DAILY, 160, cm, 09/12/20 14:03:00 EST, Height, 71.3, kg, 08/08/20 7:00:00 EST, Dry Weight Start Date: 09/20/20 Status: Orderedmagnesium oxide 400 mg oral tablet 1 tablet = 400 mg, By Mouth, Daily, # 100 tablet, 2 Refills, Maintenance, 06/05/21 11:32:00 EDT, Tablet, [facility]/pharmacy #[id number], Partial fill upon patient request if the prescription is for a schedule II opioid drug., 160, cm, 05/21/21 11:03:00 EDT, Heigh... Start Date: 06/05/21 Status: OrderedMelatonin 3 mg oral tablet 1 tablet = 3 mg, By Mouth, Daily at bedtime, PRN for insomnia, [facility], # 90 tablet, 3 Refills, Maintenance, 04/24/20 9:53:00 EDT, Tablet, [facility]/pharmacy #[id number], 1 tablet By Mouth [...] EDT, Injec... Start Date: 06/11/21 Status: OrderedPen [place], 31 G x 5 mm BD Ultra [...] 01/09/21 15:06:00 EDT, Route to Pharmacy Electronically, [facility]/pharmacy #[id number], 160, cm, 12/25/20 14:20:00 EDT, Height, 77.5, kg, 10/05/20 14:31:00 EST, Start Date: 01/09/21 Status: Orderedspironolactone 100 mg oral tablet 100 mg, 1, tablet, By Mouth, Daily, # 90 tablet, Refills 1, Tot. Refills 1, Maintenance, 07/23/21 13:10:00 EST, [facility] Partial fill upon patient request if the prescription is for a schedule II opioid thomasBobo Start Date: 07/23/21 Stop Date: 01/19/22 Status: OrderedtraMADol 50 mg oral tablet See Instructions, TAKE 1-2 TABLETS BY MOUTH EVERY 6 HOURS SCHEDULE FOLLOW VISIT, NEEDED FOR PAIN,# 240 tablet, 5 Refills, Maintenance, 05/31/21 9:52:00 EDT, [facility]/pharmacy #[id number], 160, cm, 05/21/21 11:03:00 EDT, [...] 3 Refills, Maintenance, 04/19/21 11:35:00 EDT, Powder, [facility]/pharmacy #[id number], Partial fill upon patient request [...] # 9 Unknown, 2 Refills, [facility], 160, cm, 06/19/21 13:57:00 EDT, Height, 77.27, [...] cervical(Confirmed) Osteoporosis(Confirmed) Active *[facility] [phone] 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 and patient sees Dr. Gume Mart Social History Social History Type Response Tobacco Other: last cigarette 0. Sex
--- OUTSIDE RECORDS SUMMARY | 2022-06-09 08:54 | XMS_ITS | Continuity of Care Document ---
:1950 Author Organization [facility] Address [address] [place] [address]- Care Team Providers Name Role Phone Ranjeet Rushing MD Primary Care Physician [place]counter [facility] [place]): 04/24/22 - 04/24/[address] [address]- Encounter Diagnosis Depression (Final) - 04/24/22 Urinary tract infection (Final) - 04/24/22 Anxiety (Final) - 04/24/22 Discharge Disposition: A-D/C Home Attending Physician: Erma Diane MD Admitting Physician: Erma Diane MD Referring Physician: Not on Staff, Referring [...] 07/19/08 Given 1Result Comment: [05/28/2017] [facility]: [id number] History: [id number] Note: VIS GIVEN-DATED Admin Note: vis [id number] Note: VIS [id number] Note: VIS-[id number] History: [facility] [place] [id number] History: [facility] [id number] Comment: [10/17/2015] PER NICO AT [id number] Note: VIS [id number] Note: VIS GIVEN Medications 12 inch Grab [...] 05/05/20 14:02:00 EDT, Powder, [facility]/pharmacy #[id number], 2 puffs Inhalation Every 6 hours,PRN:as needed, 160.02, cm, 05/05/20 13:43:00 EDT, Height, 73.6, kg, 04/18/20 10:1... Start Date: 05/05/20 Status: Orderedalendronate 70 mg oral tablet 1 tablet, By Mouth, Every week, # 12 tablet, 1 Refills, [facility], 160, cm, 01/17/22 14:38:00 EDT, Height, 74.8, kg, 11/01/21 15:05:00 EST, Dry Weight Start Date: 01/30/22 Status: Orderedallopurinol 300 mg oral tablet 1, tablet, By Mouth, Daily, # 90 tablet, Refills 0, Route to Pharmacy Electronically, [facility], 160, cm, 02/21/22 15:11:00 EDT, Height, 74.8, kg, 11/01/21 15:05:00 EST, Dry Weight Start Date: 03/27/22 Status: OrderedBACK BRACE BACK BRACE, See Instructions, # 1 each, Refills 0, Tot. Refills 0, Maintenance, DX BACK PAIN M54.9 DANTE LIFETIME HT 5'3 WT 182 LB, 07/23/16 14:35:27, Compound Start Date: 07/23/16 Status: OrderedBD UF SHORT PEN NEEDLE [id number] BD UF SHORT PEN NEEDLE [id number], See Instructions, # 200 Unknown, 5 Refills, USE TO INJECT INSULIN TWICE A DAY, 160, cm, 11/27/21 14:08:00 EDT, Height, 74.8, kg, 11/01/21 15:05:00 EST, Dry Weight Start Date: 11/30/21 Status: OrderedbuPROPion 300 mg/24 hours (XL) oral tablet, extended release 1 tablet, By Mouth, Daily, # 30 tablet, 5 Refills, [facility], 160, cm, 02/04/22 13:44:00 EDT, Height, 74.8, kg, 11/01/21 15:05:00 EST, Dry Weight Start Date: 02/12/22 Status: Orderedciprofloxacin 250 mg oral tablet 1 tablet = 250 mg, By Mouth, Every 12 hours, for 3 days, # 6 tablet, 0 Refills, Acute 04/27/22 17:28:00 EDT, 04/24/22 17:28:00 EDT, Tablet, [facility]/pharmacy #[id number], Partial fill upon patient request if the [...] Refills, Maintenance, 04/12/22 16:02:00 EDT, Tablet, [facility]/pharmacy #[id number], 160, cm, 04/10/22 14:31:00 EDT, [...] Maintenance, 02/21/22 16:12:00 EDT, Tablet, [facility]/pharmacy #[id number], Partial fill [...] 1, Route to Pharmacy Electronically, [id number], 160, cm, 02/21/22 15:11:00 EDT, Height, 74.8, kg, 11/01/21 15:05:00 EST, Dry Weight Start Date: 03/12/22 Status: OrderedLidoderm 5% film 1 patch, Topically, Daily, # 30 patch, 11 Refills, Maintenance, 12/28/21 15:03:00 EDT, [facility]/pharmacy #[id number], Partial fill upon [...] Maintenance, 03/26/22 10:58:00 EDT, Capsule, [facility]/pharmacy #0693, 160, cm, 02/21/22 15:11:00 EDT, Height, 74.8, kg,11/01/21 15:05:00 EST, Dry Weight Start Date: 03/26/22 Status: Orderedmagnesium oxide 400 mg oral tablet 1 tablet, By Mouth, Daily, # 100 tablet, 2 Refills, [facility], 160, cm, 02/21/22 15:11:00 EDT,Height, 74.8, kg, 11/01/21 15:05:00 EST, Dry Weight Start Date: 03/28/22 Status: OrderedMelatonin 3 mg oral tablet 1 tablet = 3 mg, By Mouth, Daily at bedtime, PRN for insomnia, [facility], # 90 tablet, 3 Refills, Maintenance, 10/17/21 12:02:00 EST, Tablet, [facility]/pharmacy #[id number], 1 tablet By Mouth Daily at bedtime,PRN:for insomnia,Instr:[facility] brand, 160, cm, 10/16/21 14... Start [...] Acute 04/29/22 0:00:00 EDT, 04/08/22 10:39:00 EDT,Patch, [facility]/pharmacy #[id number], Partial fill upon [...] EDT, Injec... Start Date: 06/11/21 Status: OrderedPen [place], 31 G x 5 mm BD Ultra [...] 0 Refills, Maintenance, 04/24/22 17:19:00EDT, Tablet, [facility]/pharmacy #[id number], Partial fill [...] Electronically, [facility]/pharmacy #[id number], 160, cm, 09/14/21 11:51:00 EST, [...] 1, Route to Pharmacy Electronically, [facility], 160, cm, 11/27/21 14:08:00 EDT, Height, 74.8, kg, 11/01/21 15:05:00 EST, Dry Weight Start Date: 01/11/22 Status: OrderedtraMADol 50 mg oral tablet See Instructions, TAKE 1-2 TABLETS BY MOUTH EVERY 6 HOURS SCHEDULE FOLLOW VISIT, NEEDED FOR PAIN,# 240 tablet, 5 Refills, Maintenance, 01/17/22 11:33:00 EDT, [facility]/pharmacy #[id number], 160, cm, 11/27/21 14:08:00 EDT, [...] Maintenance, 04/19/21 11:35:00 EDT, Powder, [facility]/pharmacy #[id number], Partial fill upon [...] Soft Stop, 07/26/21 11:05:00 EST, [facility]/pharmacy #0693, 160, cm, 07/26/21 10:45:00 EST, [...] DAILY, # 9 Unknown, 5 Refills, [facility], 160, cm, 09/07/21 15:03:00 EST, Height, 77.27, [...] cervical(Confirmed) Osteoporosis(Confirmed) Active *[facility] [phone] 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 50-70% bilaterally.3Patient's loom doffer is [facility] and patient sees Dr. Gume Mart Vital Signs Most recent to oldest 1 2 3 [Reference Range]: Height 160 cm 160 cm (04/24/22 8:34 AM) (04/24/22 8:18 AM) Weight 72.7 kg 72.7 kg (04/24/22 8:34 AM) (04/24/22 8:18 AM) Oxygen Saturation [94-100 94 % 93 % 92 % %] (04/24/22 5:31 PM) *L* *L* (04/24/22 1:10 PM) (04/24/22 10:46 AM) Pulse Rate [55-90 bpm] 102 bpm 112 bpm 112 bpm *H* *H* *H* (04/24/22 5:31 PM) (04/24/22 1:10 PM) (04/24/22 10: 46 AM) Body Mass Index 28.4 [18.5-24.99] *H* (04/24/22 8:34 AM) Blood Pressure 166/81 mm Hg 140/74 mm Hg 149/68 mm Hg [90-138/55-84 mm Hg] *H* *H* *H* (04/24/22 1:10 PM) (04/24/22 10:46 AM) (04/24/22 8: 34 AM) Respiratory Rate [16-30 20 br/min 18 br/min 18 br/mi n br/min] (04/24/22 5:31 PM) (04/24/22 1:10 PM) (04/24/22 8:3 4 AM) Temperature [96.8-100.4 96.2 DegF 98.2 DegF 98.1 Deg F DegF] *L* (04/24/22 10:46 AM) (04/24/22 8:34 AM) (04/24/22 1:10 PM) Mode of Delivery (Oxygen) Room air Room air Room a ir (04/24/22 5:31 PM) (04/24/22 1:10 PM) (04/24/22 10: 46 AM) Blood pressure sites Arm, right Arm, left Arm, left (04/24/22 1:10 PM) (04/24/22 10:46 AM) (04/24/22 8: 34 AM) Temperature Route Oral Temporal Oral (04/24/22 1:10 PM) (04/24/22 10:46 AM) (04/24/22 8: 34 AM) Dry Weight 72.7 kg 72.7 kg (04/24/22 8:34 AM) (04/24/22 8:18 AM) Weight Obtained Via Patient/family stated (04/24/22 8:18 AM) Dry Weight Obtained Via Patient/family stated (04/24/22 8:18 AM) Social History Social History Type Response Smoking Status Former smoker, quit more mark n 30 days ago entered on: 09/28/21 Sex Care Team PersonnelName: Kristan SUTTON, Ranjeet Beatty Address: [address] [place] [id number]
--- OUTSIDE RECORDS SUMMARY | 2022-06-09 08:54 | XMS_ITS | Continuity of Care Document ---
:1950 Author Organization [facility] Address [address] [place] [address]- Care Team Providers Name Role Phone Ranjeet Rushing MD Primary Care Physician Encounter [facility] [place] Date(s): 01/30/21 - 03/01/21 [facility] [address] [place] [address] Allergies, Adverse Reactions, Alerts [...] (PPV23) (oldterm)11 07/19/08 Given 1Result Comment: [05/28/2017] [facility]: [id number] History: [id number] Note: VIS GIVEN-DATED Admin Note: vis [id number] Note: VIS [id number] Note: VIS-[id number] [place] [facility] [id number] History: [facility] [id number] Comment: [10/17/2015] PER NICO AT [id number] Note: VIS [id number] Note: VIS GIVEN Medications 12 inch Grab Bars 12 inch Grab Bars, See Instructions, # 2 each, Refills 0, Tot. Refills 0, Maintenance, Grab bars : Length 12inches Use as directed DX Unsteady Gait ICD10 R26.81 HT: 5'3 Weight 162lbs Length of need Lifetime, 07/07/20 11:45:00 EST, Supply Start Date: 07/07/20 Status: Ordered[facility]MIT [facility] AD[facility] TO [facility], See Instructions, # 1 each, Refills 0, Tot. Refills 0, Maintenance, FAX [phone] ADMIT TO SENIOR CARE, PT, OT. ACADEMY DIRECTOR AND RADIATION PROTECTION ENGINEER IF NEEDED DIAGNOSIS: Cervical radiculopathy at C6 , DIABETES, ANKLE FRACTURE... Start Date: 10/17/20 Status: Orderedalbuterol 90 mcg/inh inhalation powder 2 puffs, Inhalation, Every 6 hours, PRN as needed, # 1 each, 11 Refills, Maintenance, 05/05/20 14:02:00 EDT, Powder, [facility]/pharmacy #[id number], 2 puffs Inhalation Every 6 hours,PRN:as needed, 160.02, cm, 05/05/20 13:43:00 EDT, Height, 73.6, kg, 04/18/20 10:1... Start Date: 05/05/20 Status: Orderedalendronate 70 mg oral tablet 1 tablet, By Mouth, Every week, # 12 tablet, 6 Refills, Maintenance, 01/09/21 16:07:00 EDT, [facility], 160, cm, 12/25/20 14:20:00 EDT, Height, 77.5, kg, 10/05/20 14:31:00 EST, Dry Weight Start Date: 01/09/21 Status: Orderedallopurinol 300 mg oral tablet 300 mg, 1, tablet, By Mouth, Daily, # 90 tablet, Refills 1, Tot. Refills 1, Maintenance, 01/26/21 12:31:00 EDT, Route to Pharmacy Electronically, [facility]/pharmacy #[id number], 160, cm, 12/25/20 14:20:00 EDT, [...] 03/23/21 16:45:00 EDT, 02/16/21 16:39:00 EDT, Cream, [facility]/pharmacy #[id number], Partial fill upon patientrequest if [...] Refills, Maintenance, 02/08/21 9:52:00 EDT, Tablet, [facility]/pharmacy #[id number], 160, cm, 01/25/21 14:11:00 EDT, [...] 9:05:00 EDT, Route to Pharmacy Electronically, [facility]/pharmacy #[id number], 160, cm, 01/25/21 14:11:00 EDT, Height, 77.5, kg, 10/05/20 14:31:00 EST, Dry Weight Start Date: 02/06/21 Stop Date: 08/05/21 Status: OrderedHumira 40 mg subcutaneous solution See Instructions, 40 mg P3sadhf, 0 Refills, Maintenance, 10/23/20 13:46:00 EST, Partial fill upon patient request if the prescription is for a schedule II opioid drug. Start Date: 10/23/20 Status: OrderedLyrica 150 mg oral capsule 1 capsule = 150 mg, By Mouth, 2 times a day, DOSAGE INCREASE, # 60 capsule, 3 Refills, Maintenance, 01/23/21 14:56:00 EDT, Capsule, [facility]/pharmacy #[id number], 160, cm, 01/14/21 11:46:00 EDT, Height, 77.5, kg,10/05/20 14:31:00 EST, Dry Weight Start Date: 01/23/21 Status: Orderedmagnesium oxide 400 mg (240 mg elemental magnesium) oral tablet 1 tablet, By Mouth, Daily, # 90 tablet, 0 Refills, Acute, 09/20/20 12:20:00 EST, [facility] STORE 86252, 90, TAKE 1 TABLET BY MOUTH DAILY, 160, cm, 09/12/20 14:03:00 EST, Height, 71.3, kg, 08/08/20 7:00:00 EST, Dry Weight Start Date: 09/20/20 Status: OrderedMelatonin 3 mg oral tablet 1 tablet = 3 mg, By Mouth, Daily at bedtime, PRN for insomnia, [facility] brand, # 90 tablet, 3 Refills, [...] if th... Start Date: 08/30/20 Status: OrderedPen [place], 31 G x 5 mm BD Ultra [...] 01/09/21 15:06:00 EDT, [id number], cm, 12/25/20 14:20:00 EDT, Height, 77.5, kg, 10/05/20 14:31:00 EST, DriMllie. Start Date: 01/09/21 Status: Orderedspironolactone 100 mg oral tablet 100 mg, 1, tablet, By Mouth, Daily, # 90 tablet, Refills 0, Tot. Refills 0, Maintenance, 01/23/21 14:56:00 EDT, [id number], Partial fill upon patient request if the prescription is for a schedule II opioid carlene Start Date: 01/23/21 Stop Date: 04/23/21 Status: OrderedtraMADol 50 mg oral tablet See Instructions, PRN Pain , Severe, 1-2 tablets by mouth every 6 hours, # 240 tablet, 1 Refills, Soft Stop, 01/25/21 16:45:00 EDT, [id number] 160, cm, 01/25/21 14:11:00 EDT, Height, [...] Active *[facility] [phone] [employer] Alpa Active Nathaniel(Confirmed) 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 50-70% bilaterally.3Patient's government affairs fellow is [facility] Dr[facility] Gume Mart Social History Social History Type Response Tobacco Other: last cigarette 0. Sex
--- OUTSIDE RECORDS SUMMARY | 2022-06-09 08:54 | XMS_ITS | Continuity of Care Document ---
:1950 Author Organization [facility] Address [address] [place] [address]- Care Team Providers Name Role Phone Ranjeet Rushing MD Primary Care Physician Encounter [facility] Date(s): 05/30/20 - 06/29/20 [facility] [address] [place] [address]- Allergies, Adverse Reactions, Alerts Substance Reaction Severity [...] Comment: [05/28/2017] [facility]: [id number] History: [id number] Note: VIS GIVEN-DATED Admin Note: vis [id number] Note: VIS [id number] Note: VIS-[id number] History: [facility] [place] [id number] History: [facility] DEANGELO Gray Comment: [10/17/2015] PER NICO AT [id number] Note: VIS [id number] Note: VIS GIVEN Medications albuterol 90 mcg/inh [...] 0 Refills, Maintenance, 06/01/20 9:05:00 EDT, [facility]/pharmacy #[id number], 160.02, cm, 05/09/20 12:34:00 EDT, Height, 73.6, kg, 04/18/20 10:19:00 EDT, Dry Weight Start Date: 06/01/20 Status: Orderedallopurinol 300 mg oral tablet 1, tablet, By Mouth, Daily, # 90 tablet, Refills 0, Tot. Refills 0, Maintenance, 04/05/20 9:38:00 EDT, Route to Pharmacy Electronically, [facility]/pharmacy #[id number], 160.02, cm, 03/29/20 10:57:00 EDT, Height, [...] Refills, Maintenance, 06/01/20 12:01:00 EDT, Capsule, [facility]/pharmacy #0693, 160.02, cm, 06/01/20 11:03:00 [...] Refills, Maintenance, 02/11/20 13:33:00 EDT, Tablet, [facility]/pharmacy #[id number], 160.02, cm, 02/11/20 13:03:00 EDT, Height, [...] 11:50:00 EDT, Route to Pharmacy Electronically, [facility]/pharmacy #[id number], 160.02, cm, 03/29/20 10:57:00 EDT,Height, 81.6, kg, 07/27/19 14:52:00 EST, Dry Weight Start Date: 04/07/20 Status: Orderedgabapentin 300 mg oral capsule 300 mg, 1, capsule, By Mouth, 3 times a day, # 90 capsule, Refills 5, Tot. Refills 5, Maintenance, 04/13/20 12:42:00 EDT, Route to Pharmacy Electronically, [facility]/pharmacy #[id number], 160.02, cm, 03/29/20 10:57:00 EDT, Height, [...] Refills, Maintenance, 05/12/20 14:54:00 EDT, Capsule, [facility]/pharmacy #0693, 160.02, cm, 05/09/20 12:34:00 EDT, Height, 73.6, kg, 04/18/20 10:19:00 EDT, Dry Weight Start Date: 05/12/20 Status: Orderedmagnesium oxide 400 mg oral tablet 1 tablet = 400 mg, By Mouth, Daily, PER RAJNI CARDONA, # 90 tablet, 0 Refills, Maintenance, 06/28/20 12:11:00 EST, [facility]/pharmacy #[id number], 160.02, cm, 06/01/20 11:03:00 [...] 5 Refills, Maintenance, 02/21/20 11:53:00 EDT, [facility]/pharmacy #[id number], 301-350: 12 units, 351-400: 14 units, 401-450: 1... Start Date: 02/21/20 Status: OrderedoxyCODONE 5 mg oral capsule 1 capsule = 5 mg, By Mouth, Every 6 hours, PRN as needed for pain, 0 Refills, Maintenance, 06/01/20 11:12:00 EDT, Capsule, Partial fill upon patient request Start Date: 06/01/20 Status: OrderedPen [place], 31 G x 5 mm BD Ultra [...] 9:31:00 EST, Route to Pharmacy Electronically, [facility]/pharmacy #[id number], 160.02, cm, 06/01/20 11:03:00 EDT, Height, 73.6, kg, 04/18/20 10:19:00 EDT,... Start Date: 06/28/20 Status: Orderedspironolactone 100 mg oral tablet 1, tablet, By Mouth, Daily, # 30 tablet, Refills 2, Tot. Refills 2, Maintenance, 05/16/20 16:31:00 EDT, Route to Pharmacy Electronically, [facility]/pharmacy #[id number], 160.02, cm, 05/09/20 12:34:00 EDT, Height, 73.6, kg, 04/18/20 10:19:00 EDT, Dry Weight Start Date: 05/16/20 Status: OrderedtraMADol 50 mg oral tablet See Instructions, PRN Pain , Severe, 1-2 tablets by mouth every 6 hours Schedule follow visit, # 240tablet, 1 Refills, Soft Stop, 05/19/20 16:27:00 EDT, [facility]/pharmacy #0693, 160.02, cm, 05/09/20 12:34:00 EDT, Height, [...] Refills, Soft Stop, 12/16/19 15:45:00 EDT, [facility]/pharmacy #0693, 160.02, cm, 11/02/19 15:34:00 EDT, Height, 81.6, kg, 07/27/19 14:52:00 EST, Dry Weight Start Date: 12/16/19 Status: OrderedVictoza 18 mg/3 mL subcutaneous solution See Instructions, INJECT 1.8 MG UNDER THE SKIN ONCE DAILY, # 9 Unknown, 5 Refills, 06/20/20 15:08:00EDT, [facility]/pharmacy #[id number], 160.02, cm, 06/01/20 11:03:00 [...] (osteoarthritis), Active cervical(Confirmed) Osteoporosis(Confirmed) Active *[facility] [phone] 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 50-70% bilaterally.3Patient's furnace tender is [facility] and patient sees Dr. Gume Mart Social History Social History Type Response Smoking Status Current some day smoker; Typ e: Cigarettes; Other: less than 1/2 pack a day; Tobacco use times per day: 1/2 pack a day; entered on: 02/19/17 Sex
--- OUTSIDE RECORDS SUMMARY | 2022-06-09 08:54 | XMS_ITS | Continuity of Care Document ---
:1950 Author Organization [facility] Address [address] [place] [address]- Care Team Providers Name Role Phone Ranjeet Rushing MD Primary Care Physician Encounter [facility] Date(s): 07/06/20 - 08/05/20 [facility] [address] [place] [address]- Allergies, Adverse Reactions, Alerts Substance Reaction Severity [...] Given 1Result Comment: [05/28/2017] [facility]: [id number] History: [id number] Note: VIS GIVEN-DATED Admin Note: vis [id number] Note: VIS [id number] Note: VIS-[id number] History: [facility] [id number] History: [facility] DEANGELO Gray Comment: [10/17/2015] PER NICO AT [id number] Note: VIS [id number] Note: VIS GIVEN Medications 12 inch Grab [...] 07/06/20 15:50:00 EST, Route to Pharmacy Electronically, [facility]/pharmacy #[id number], 160.02, cm, 07/03/20 14:54:00 [...] 07/06/20 15:48:00 EST, Route to Pharmacy Electronically, [facility]/pharmacy #[id number], 160.02, cm, 07/03/20 14:54:00 [...] 3 Refills, Maintenance, 07/04/20 11:46:00 EST, Capsule, [facility]/pharmacy #[id number], 160.02, cm, 07/03/20 14:54:00 EST, Height, 73.6, kg, 04/18/20 10:19:00 EDT, Dry Weight Start Date: 07/04/20 Status: Orderedmagnesium oxide 400 mg oral tablet 1 tablet = 400 mg, By Mouth, Daily, PER RAJNI CARDONA, # 90 tablet, 0 Refills, Maintenance, 06/28/20 12:11:00 EST, [facility]/pharmacy #[id number], [...] each, 5 Refills, Maintenance, 02/21/20 11:53:00 EDT, [facility]/pharmacy #0683, 301-350: 12 units, 351-400: 14 units, 401-450: 1... Start Date: 02/21/20 Status: OrderedoxyCODONE 5 mg oral capsule 1 capsule = 5 mg, By Mouth, Every 6 hours, PRN as needed for pain, 0 Refills, Maintenance, 06/01/20 11:12:00 EDT, Capsule, Partial fill upon patient request Start Date: 06/01/20 Status: OrderedPen [place], 31 G x 5 mm BD Ultra [...] 06/28/20 9:31:00 EST, Route to Pharmacy Electronically, [facility]/pharmacy #[id number], 160.02, cm, 06/01/20 11:03:00 EDT, Height, 73.6, kg, 04/18/20 10:19:00 EDT,... Start Date: 06/28/20 Status: Orderedspironolactone 100 mg oral tablet 1, tablet, By Mouth, Daily, # 30 tablet, Refills 2, Tot. 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 50-70% bilaterally.3Patient's biomedical electronics technician is [facility] Dr. Gume Mart Social History Social History Type Response Smoking Status Current some day smoker; Typ e: Cigarettes; Other: less than 1/2 pack a day; Tobacco use times per day: 1/2 pack a day; entered on: 02/19/17 Sex
--- OUTSIDE RECORDS SUMMARY | 2022-06-09 08:54 | XMS_ITS | Continuity of Care Document ---
:1950 Author Organization [facility], [place], [facility] Address [address] [place] [address]- Care Team Providers Name Role Phone Kristan SUTTON, Ranjeet Beatty Primary Care Physician [facility] Date[facility]): 05/26/21 - 06/25/21 [facility] [place] [address] [place] [address]- Allergies, Adverse Reactions, Alerts Substance Reaction Severity [...] (oldterm)11 07/19/08 Given 1Result Comment: [05/28/2017] [facility]: [id number] History: [id number] Note: VIS GIVEN-DATED Admin Note: vis [id number] Note: VIS [id number] Note: VIS-[id number] [place] [facility] [id number] History: [facility] [id number] Comment: [10/17/2015] PER NICO AT [id number] Note: VIS [id number] Note: VIS GIVEN Medications 12 inch Grab [...] 01/09/21 16:07:00 EDT, [facility] 0[facility], 160, cm, 12/25/20 14:20:00 EDT, Height, 77.5, kg, 10/05/20 14:31:00 EST, Dry Weight Start Date: 01/09/21 Status: Orderedallopurinol 300 mg oral tablet 300 mg, 1, tablet, By Mouth, Daily, # 90 tablet, Refills 1, Tot. Refills 1, Maintenance, 01/26/21 12:31:00 EDT, Route to Pharmacy Electronically, [facility]/pharmacy #[id number], 160, cm, 12/25/20 14:20:00 [...] Refills, Maintenance, 03/12/21 10:51:00 EDT, [facility], 160, cm, 02/27/21 13:50:00 EDT, Height, 79.6, [...] 1 Refills, Maintenance, 02/08/21 9:52:00 EDT, Tablet, [facility]/pharmacy #[id number], 160, cm, 01/25/21 14:11:00 [...] 02/06/21 9:05:00 EDT, Route to Pharmacy Electronically, [facility]/pharmacy #[id number], 160, cm, 01/25/21 14:11:00 EDT, Height, 77.5, kg, 10/05/20 14:31:00 EST, Dry Weight Start Date: 02/06/21 Stop Date: 08/05/21 Status: OrderedHumira 40 mg subcutaneous solution See Instructions, 40 mg [id number], 0 Refills, Maintenance, 10/23/20 13:46:00 EST, Partial fill upon patient request if the prescription is for a schedule II opioid drug. Start Date: 10/23/20 Status: OrderedLyrica 150 mg oral capsule 1 capsule = 150 mg, By Mouth, 2 times a day, DOSAGE INCREASE, # 60 capsule, 3 Refills, Maintenance, 01/23/21 14:56:00 EDT, Capsule, [facility]/pharmacy #[id number], 160, cm, 01/14/21 11:46:00 EDT, Height, 77.5, kg,10/05/20 14:31:00 EST, Dry Weight Start Date: 01/23/21 Status: Orderedmagnesium oxide 400 mg (240 mg elemental magnesium) oral tablet 1 tablet, By Mouth, Daily, # 90 tablet, 0 Refills, Acute, 09/20/20 12:20:00 EST, [facility] STORE 33723, 90, TAKE 1 TABLET BY MOUTH DAILY, [...] 3 Refills, Maintenance, 04/24/20 9:53:00 EDT, Tablet, [facility]/pharmacy #[id number], 1 tablet [...] EDT, Injec... Start Date: 06/11/21 Status: OrderedPen [place], 31 G x 5 mm BD Ultra Fine III See Instructions, # 200 each, Refills 5, Tot. Refills 5, Maintenance, To inject insulin BID for DM II E11.9 PER RAJNI EMERY ACTIVITIES VOLUNTEER-C, 10/06/20 10:54:00 EST, SHORT, Compound, 160, cm, [...] 01/09/21 15:06:00 EDT, Route to Pharmacy Electronically, [facility]/pharmacy #[id number], 160, cm, 12/25/20 14:20:00 EDT, Height, 77.5, kg, 10/05/20 14:31:00 EST, Start Date: 01/09/21 Status: Orderedspironolactone 100 mg oral tablet 100 mg, 1, tablet, By Mouth, Daily, # 90 tablet, Refills 0, Tot. 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 Gume Mart Social History Social History Type Response Tobacco Other: last cigarette 0. Sex
--- OUTSIDE RECORDS SUMMARY | 2022-06-09 08:54 | XMS_ITS | Continuity of Care Document ---
:1950 Author Organization [facility] Address [address] [place] [address]- Care Team Providers Name Role Phone Ranjeet Rushing MD Primary Care Physician Encounter [facility] Date(s): 02/08/21 - 05/04/21 [facility] [address] [place] [address]- Attending Physician: Sin SUTTON, Mustapha Admitting Physician: [...] 07/19/08 Given 1Result Comment: [05/28/2017] [facility]: [id number] History: [id number] Note: VIS GIVEN-DATED Admin Note: vis [id number] Note: VIS [id number] Note: VIS-[id number] [place] [facility] [id number] History: [facility] [id number] Comment: [10/17/2015] PER NICO AT [id number] Note: VIS [id number] Note: VIS GIVEN Medications 12 inch Grab [...] tablet, 6 Refills, Maintenance, 01/09/21 16:07:00 EDT, [facility] ST[facility] 7[facility]10, 160, cm, 12/25/20 14:20:00 EDT, Height, 77.5, kg, 10/05/20 14:31:00 EST, Dry Weight Start Date: 01/09/21 Status: Orderedallopurinol 300 mg oral tablet 300 mg, 1, tablet, By Mouth, Daily, # 90 tablet, Refills 1, Tot. Refills 1, Maintenance, 01/26/21 12:31:00 EDT, Route to Pharmacy Electronically, [facility]/pharmacy #[id number], 160, cm, 12/25/20 14:20:00 EDT, [...] Refills, Maintenance, 03/12/21 10:51:00 EDT, [facility], 160, cm, 02/27/21 13:50:00 EDT, Height, 79.6, [...] 1 Refills, Maintenance, 02/08/21 9:52:00 EDT, Tablet, [facility]/pharmacy #0693, 160, cm, 01/25/21 14:11:00 EDT, [...] 02/06/21 9:05:00 EDT, Route to Pharmacy Electronically, [facility]/pharmacy #[id number], 160, cm, 01/25/21 14:11:00 EDT, Height, 77.5, kg, 10/05/20 14:31:00 EST, Dry Weight Start Date: 02/06/21 Stop Date: 08/05/21 Status: OrderedHumira 40 mg subcutaneous solution See Instructions, 40 mg D2hnqvs, 0 Refills, Maintenance, 10/23/20 13:46:00 EST, Partial fill upon patient request if the prescription is for a schedule II opioid drug. Start Date: 10/23/20 Status: OrderedLyrica 150 mg oral capsule 1 capsule = 150 mg, By Mouth, 2 times a day, DOSAGE INCREASE, # 60 capsule, 3 Refills, Maintenance, 01/23/21 14:56:00 EDT, Capsule, [facility]/pharmacy #0693, 160, cm, 01/14/21 11:46:00 EDT, Height, 77.5, kg,10/05/20 14:31:00 EST, Dry Weight Start Date: 01/23/21 Status: Orderedmagnesium oxide 400 mg (240 mg elemental magnesium) oral tablet 1 tablet, By Mouth, Daily, # 90 tablet, 0 Refills, Acute, 09/20/20 12:20:00 EST, [facility] STORE 46869, 90, TAKE 1 TABLET BY MOUTH DAILY, [...] 1 tablet By Mouth Daily at bedtime,PRN:for insomnia,Instr:[employer] brand, 160.02, cm, 04/18/20... Start Date: 04/24/20 [...] if th... Start Date: 08/30/20 Status: OrderedPen [place], 31 G x 5 mm BD Ultra [...] 01/09/21 15:06:00 EDT, Route to Pharmacy Electronically, [facility]/pharmacy #[id number], 160, cm, 12/25/20 14:20:00 EDT, Height, 77.5, kg, 10/05/20 14:31:00 EST, DrJhoan.. Start Date: 01/09/21 Status: Orderedspironolactone 100 mg oral tablet 100 mg, 1, tablet, By Mouth, Daily, # 90 tablet, Refills 0, Tot. 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 50-70% bilaterally.3Patient's helper shear operator is [facility] and patient sees Dr. Gume Mart Social History Social History Type Response Tobacco Other: last cigarette 0. Sex
--- OUTSIDE RECORDS SUMMARY | 2022-06-09 08:55 | XMS_ITS | Continuity of Care Document ---
:1950 Author Organization [facility] Address [address] [place] [address], [address] [place] [address]- Care Team Providers Name Role Phone Kristan SUTTON, Ranjeet Beatty Primary Care Physician [facility]counter [facility] Date[facility]s): 09/21/20 - 10/21/[address], [address] [place], [place] [address] Allergies, Adverse Reactions, Alerts Substance Reaction [...] 07/19/08 Given 1Result Comment: [05/28/2017] [facility]: [id number] History: [id number] Note: VIS GIVEN-DATED Admin Note: vis [id number] Note: VIS [id number] Note: VIS-ARVXR9Hvpgndtx History: [facility] [id number] History: [facility] DEANGELO Gray Comment: [10/17/2015] PER NICO AT [id number] Note: VIS [id number] Note: VIS GIVEN Medications 12 inch Grab Bars 12 inch Grab Bars, See Instructions, # 2 each, Refills 0, Tot. Refills 0, Maintenance, Grab bars : Length 12inches Use as directed DX Unsteady Gait ICD10 R26.81 HT: 5'3 Weight 162lbs Length of need Lifetime, 07/07/20 11:45:00 EST, Supply Start Date: 07/07/20 Status: [facility], See Instructions, # 1 each, Refills 0, Tot. Refills 0, Maintenance, FAX [phone] ADMIT TO [facility], PT, OT. 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 Start Date: 10/17/20 Status: Orderedalbuterol 90 mcg/inh inhalation powder 2 puffs, Inhalation, Every 6 hours, PRN as needed, # 1 each, 11 Refills, Maintenance, 05/05/20 14:02:00 EDT, Powder, [facility]/pharmacy #[id number], 2 puffs Inhalation Every 6 hours,PRN:as needed, 160.02, cm, 05/05/20 13:43:00 EDT, Height, 73.6, kg, 04/18/20 10:1... Start Date: 05/05/20 Status: Orderedallopurinol 300 mg oral tablet 300 mg, 1, tablet, By Mouth, Daily, # 90 tablet, Refills 0, Tot. Refills 0, Maintenance, 07/06/20 15:50:00 EST, Route to Pharmacy Electronically, [facility]/pharmacy #0693, 160.02, cm, 07/03/20 14:54:00 EST, Height, [...] 1 Refills, Maintenance, 09/28/20 11:53:00 EST, Tablet, [facility]/pharmacy #0693, 160, cm, 09/12/20 14:03:00 EST, Height, [...] 15:48:00 EST, Route to Pharmacy Electronically, [facility]/pharmacy #0693, 160.02, cm, 07/03/20 14:54:00 EST,Height, 73.6, kg, 04/18/20 10:19:00 EDT, Dry Weight Start Date: 07/06/20 Stop Date: 10/04/20 Status: OrderedLyrica 150 mg oral capsule 1 capsule = 150 mg, By Mouth, 2 times a day, DOSAGE INCREASE, # 60 capsule, 3 Refills, Maintenance, 07/04/20 11:46:00 EST, [facility], 160.02, cm, 07/03/20 14:54:00 EST, Height, 73.6, kg, 04/18/20 10:19:00 EDT, Dry Weight Start Date: 07/04/20 Status: Orderedmagnesium oxide 400 mg (240 mg elemental magnesium) oral tablet 1 tablet, By Mouth, Daily, # 90 tablet, 0 Refills, Acute, 09/20/20 12:20:00 EST, [facility], 90, TAKE 1 TABLET BY MOUTH DAILY, 160, cm, 09/12/20 14:03:00 EST, Height, 71.3, kg, 08/08/20 7:00:00 EST, Dry Weight Start Date: 09/20/20 Status: OrderedMelatonin 3 mg oral tablet 1 tablet = 3 mg, By Mouth, Daily at bedtime, PRN for insomnia, [facility], # 90 tablet, 3 Refills, Maintenance, 04/24/20 9:53:00 EDT, Tablet, [facility], 1 tablet By Mouth Daily at bedtime,PRN:for insomnia,Instr:[employer] brand, 160.02, cm, 04/18/20... Start Date: 04/24/20 [...] if th... Start Date: 08/30/20 Status: OrderedPen [place], 31 G x 5 mm BD Ultra [...] 9:31:00 EST, Route to Pharmacy Electronically, [facility]/pharmacy #[id number], 160.02, cm, 06/01/20 11:03:00 EDT, Height, 73.6, kg, 04/18/20 10:19:00 EDT,... 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 Gume Mart Social History Social History Type Response Tobacco Other: last cigarette 0. Sex
--- OUTSIDE RECORDS SUMMARY | 2022-06-09 08:55 | XMS_ITS | Continuity of Care Document ---
:1950 Author Organization [facility] Address [address] [place] [phone]- Care Team Providers Name Role Phone Kristan SUTTON, Ranjeet Beatty Primary Care Physician Encounter [facility] Date(s): 05/05/20 - 05/12/20 [facility] [address] [place] [address]- [facility] Encounter Diagnosis Swelling of lower leg (Discharge Diagnosis) - 05/05/20 Attending Physician: Matilda LOZADA, Chari Santos Allergies, [...] (PPV23) (oldterm)11 07/19/08 Given 1Result Comment: [05/28/2017] [facility]: [id number] History: [id number] Note: VIS GIVEN-DATED Admin Note: vis [id number] Note: VIS [id number] Note: VIS-UNHYL7Bhxnvdyk History: [facility] [id number] History: [facility] DEANGELO Gray Comment: [10/17/2015] PER NICO AT [id number] Note: VIS [id number] Note: VIS GIVEN Medications albuterol 90 mcg/inh inhalation powder 2 puffs, Inhalation, Every 6 hours, PRN as needed, # 1 each, 11 Refills, Maintenance, 05/05/20 14:02:00 EDT, Powder, [facility]/pharmacy #0693, 2 puffs Inhalation Every 6 hours,PRN:as needed, 160.02, cm, 05/05/20 13:43:00 EDT, Height, 73.6, kg, 04/18/20 10:1... Start Date: 05/05/20 Status: Orderedalendronate 70 mg oral tablet 1 tablet, By Mouth, Every week, # 12 tablet, 0 Refills, Maintenance, 03/17/20 11:27:00 EDT, [facility] STORE 09706, 160.02, cm, 03/14/20 13:30:00 EDT, Height, 81.6, kg, 07/27/19 14:52:00 EST, Dry Weight Start Date: 03/17/20 Status: Orderedallopurinol 300 mg oral tablet 1, tablet, By Mouth, Daily, # 90 tablet, Refills 0, Tot. Refills 0, Maintenance, 04/05/20 9:38:00 EDT, Route to Pharmacy Electronically, [facility]/pharmacy #0693, 160.02, cm, 03/29/20 10:57:00 EDT, Height, [...] TAKE 1 CAPSULE BY MOUTH EVERY DAY, [facility]/pharmacy #0693 Start Date: 04/20/19 Status: Orderedcyanocobalamin 500 mcg oral tablet 1 tablet = 500 mcg, By Mouth, Daily, # 90 tablet, 0 Refills, Maintenance, 02/11/20 13:33:00 EDT, Tablet, [facility]/pharmacy #0693, 160.02, cm, 02/11/20 13:03:00 EDT, Height, [...] 04/07/20 11:50:00 EDT, Route to Pharmacy Electronically, [facility]/pharmacy #0693, 160.02, cm, 03/29/20 10:57:00 EDT,Height, 81.6, kg, 07/27/19 14:52:00 EST, Dry Weight Start Date: 04/07/20 Status: Orderedgabapentin 300 mg oral capsule 300 mg, 1, capsule, By Mouth, 3 times a day, # 90 capsule, Refills 5, Tot. Refills 5, Maintenance, 04/13/20 12:42:00 EDT, Route to Pharmacy Electronically, [facility]/pharmacy #0693, 160.02, cm, 03/29/20 10:57:00 EDT, Height, [...] 1 Refills, Maintenance, 05/12/20 14:54:00 EDT, Capsule, [facility]/pharmacy #0693, 160.02, cm, 05/09/20 12:34:00 EDT, [...] 3 Refills, Maintenance, 04/24/20 9:53:00 EDT, Tablet, [facility]/pharmacy #0693, 1 tablet By Mouth Daily [...] each, 5 Refills, Maintenance, 02/21/20 11:53:00 EDT, [facility]/pharmacy #0693, 301-350: 12 units, 351-400: 14 units, 401-450: 1... Start Date: 02/21/20 Status: OrderedPen [place], 31 G x 5 mm BD Ultra [...] 07/20/19 16:14:12 EST, Route to Pharmacy Electronically, [id number], [facility]/pharmacy #[id number] Start Date: 07/20/19 Status: Orderedspironolactone 100 mg oral tablet 1, tablet, By Mouth, Daily, # 30 tablet, Refills 5, Tot. 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 50-70% bilaterally.3Patient's detail manager is [facility] and patient sees Dr. Gume Mart Diagnosis Diagnosis Type Effective Dates Health Status Clinical In formant Service Swelling of Discharge 05/05/20 lower leg Diagnosis Vital Signs Most recent to oldest [Reference Range]: 1 Height 160.02 cm (05/05/20 1:43 PM) Weight 75.9 kg (05/05/20 1:43 PM) Oxygen Saturation [94-100 %] 96 % (05/05/20 1:43 PM) Pulse Rate [55-90 bpm] 71 bpm (05/05/20 1:43 PM) Body Mass Index [18.5-24.99] 29.64 *H* (05/05/20 1:43 PM) Blood Pressure [90-138/55-84 mm Hg] 124/62 mm Hg (05/05/20 1:43 PM) Temperature [96.8-100.4 DegF] 98.6 DegF (9/11/20 1:43 PM) Blood pressure sites Arm, right (05/05/20 1:43 PM) Temperature Route Oral (05/05/20 1:43 PM) Social History Social History Type Response Smoking Status Current some day smoker; Typ e: Cigarettes; Other: less than 1/2 pack a day; Tobacco use times per day: 1/2 pack a day; entered on: 02/19/17 Sex
--- OUTSIDE RECORDS SUMMARY | 2022-06-09 08:55 | XMS_ITS | Continuity of Care Document ---
:1950 Author Organization [facility] Address [address] [place] [address]- Care Team Providers Name Role Phone Kristan SUTTON, Ranjeet Beatty Primary Care Physician [facility]counter [facility] Date(s): 01/23/21 - 02/22/21 [facility] [address] [place] [address]- Allergies, Adverse Reactions, Alerts Substance Reaction Severity [...] (oldterm)11 07/19/08 Given 1Result Comment: [05/28/2017] [facility]: [id number] History: [id number] Note: VIS GIVEN-DATED Admin Note: vis [id number] Note: VIS [id number] Note: VIS-[id number] History: [facility] [id number] History: [facility] [id number] Comment: [10/17/2015] PER NICO AT [id number] Note: VIS [id number] Note: VIS GIVEN Medications 12 inch Grab Bars 12 inch Grab Bars, See Instructions, # 2 each, Refills 0, Tot. Refills 0, Maintenance, Grab bars : Length 12inches Use as directed DX Unsteady Gait ICD10 R26.81 HT: 5'3 Weight 162lbs Length of need Lifetime, 07/07/20 11:45:00 EST, Supply Start Date: 07/07/20 Status: [facility] ADMIT TO [facility], See Instructions, # 1 each, Refills 0, Tot. Refills 0, Maintenance, FAX [phone] ADMIT TO LONG-TERM, PT, OT. 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 Start Date: 10/17/20 Status: Orderedalbuterol 90 mcg/inh inhalation powder 2 puffs, Inhalation, Every 6 hours, PRN as needed, # 1 each, 11 Refills, Maintenance, 05/05/20 14:02:00 EDT, Powder, [facility]/pharmacy #[id number], 2 puffs Inhalation Every 6 hours,PRN:as needed, 160.02, cm, 05/05/20 13:43:00 EDT, Height, 73.6, kg, 04/18/20 10:1... Start Date: 05/05/20 Status: Orderedalendronate 70 mg oral tablet 1 tablet, By Mouth, Every week, # 12 tablet, 6 Refills, Maintenance, 01/09/21 16:07:00 EDT, [id number], 160, cm, 12/25/20 14:20:00 EDT, Height, 77.5, kg, 10/05/20 14:31:00 EST, Dry Weight Start Date: 01/09/21 Status: Orderedallopurinol 300 mg oral tablet 300 mg, 1, tablet, By Mouth, Daily, # 90 tablet, Refills 1, Tot. Refills 1, Maintenance, 01/26/21 12:31:00 EDT, Route to Pharmacy Electronically, [facility]/pharmacy #[id number], 160, cm, 12/25/20 14:20:00 EDT, Height, [...] 03/23/21 16:45:00 EDT, 02/16/21 16:39:00 EDT, Cream, [facility]/pharmacy #[id number], Partial fill upon patientrequest if the [...] 02/06/21 9:05:00 EDT, Route to Pharmacy Electronically, [facility]/pharmacy #[id number], 160, cm, 01/25/21 14:11:00 EDT, Height, 77.5, kg, 10/05/20 14:31:00 EST, Dry Weight Start Date: 02/06/21 Stop Date: 08/05/21 Status: OrderedHumira 40 mg subcutaneous solution See Instructions, 40 mg [id number], 0 Refills, Maintenance, 10/23/20 13:46:00 EST, Partial fill upon patient request if the prescription is for a schedule II opioid drug. Start Date: 10/23/20 Status: OrderedKeflex monohydrate 500 mg oral capsule 1 capsule = 500 mg, By Mouth, 4 times a day, for 10 days, # 40 each, 0 Refills, Acute 02/26/21 16:38:00 EDT, 02/16/21 16:38:00 EDT, Capsule, [facility]/pharmacy #[id number], Partial fill upon patient request if theprescription is for a schedule II opioid drug., 1... Start Date: 02/16/21 Stop Date: 02/26/21 Status: OrderedLyrica 150 mg oral capsule 1 capsule = 150 mg, By Mouth, 2 times a day, DOSAGE INCREASE, # 60 capsule, 3 Refills, Maintenance, 01/23/21 14:56:00 EDT, Capsule, [facility]/pharmacy #[id number], 160, cm, 01/14/21 11:46:00 EDT, Height, 77.5, kg,10/05/20 14:31:00 EST, Dry Weight Start Date: 01/23/21 Status: Orderedmagnesium oxide 400 mg (240 mg elemental magnesium) oral tablet 1 tablet, By Mouth, Daily, # 90 tablet, 0 Refills, Acute, 09/20/20 12:20:00 EST, [id number], 90, TAKE 1 TABLET BY MOUTH DAILY, 160, cm, 09/12/20 14:03:00 EST, Height, 71.3, kg, 08/08/20 7:00:00 EST, Dry Weight Start Date: 09/20/20 Status: OrderedMelatonin 3 mg oral tablet 1 tablet = 3 mg, By Mouth, Daily at bedtime, PRN for insomnia, [facility], # 90 tablet, 3 Refills, Maintenance, 04/24/20 9:53:00 EDT, Tablet, [facility]/pharmacy #[id number], 1 tablet By Mouth Daily [...] if th... Start Date: 08/30/20 Status: OrderedPen [place], 31 G x 5 mm BD Ultra [...] 01/09/21 15:06:00 EDT, Route to Pharmacy Electronically, [facility]/pharmacy #[id number], 160, cm, 12/25/20 14:20:00 EDT, Height, 77.5, kg, 10/05/20 14:31:00 EST, DrJhoan.. Start Date: 01/09/21 Status: Orderedspironolactone 100 mg oral tablet 100 mg, 1, tablet, By Mouth, Daily, # 90 tablet, Refills 0, Tot. Refills 0, Maintenance, 01/23/21 14:56:00 EDT, Route to Pharmacy Electronically, [facility]/pharmacy #[id number], Partial fill upon patient request if the prescription is for a schedule II opioid geovanny. Start Date: 01/23/21 Stop Date: 04/23/21 Status: OrderedtraMADol 50 mg oral tablet See Instructions, PRN Pain , Severe, 1-2 tablets by mouth every 6 hours, # 240 tablet, 1 Refills, Soft Stop, 01/25/21 16:45:00 EDT, [facility]/pharmacy #[id number], 160, cm, 01/25/21 14:11:00 EDT, Height, [...] # 9 Unknown, 5 Refills, 06/20/20 15:08:00EDT, [facility]/pharmacy #[id number], 160.02, cm, 06/01/20 11:03:00 EDT, Height, 73.6, kg, 04/18/20 10:19:00 EDT,Dry Weight Start Date: 06/20/20 Status: OrderedVitamin D3 1000 intl units oral capsule 1 capsule = 1,000 International_Units, By Mouth, Daily, # 90 capsule, 1 Refills, Maintenance, 09/25/20 7:44:00 EST, Capsule, [facility]/pharmacy #[id number], resent from 08/14, 160, cm, 09/12/20 14:03:00 EST, Height, 71.3, kg, 08/08/20 7:00:00 EST, Dry Weight Start Date: 09/25/20 Status: OrderedWellbutrin XL 300 mg/24 hours oral tablet, extended release 1 tablet = 300 mg, By Mouth, Daily, DOSAGE INCREASE, # 30 tablet, 5 Refills, Maintenance, 07/03/20 15:20:00 EST, ER Tablet, [facility]/pharmacy #[id number], 160.02, cm, 07/03/20 14:54:00 EST, Height, 73.6, kg, 04/18/20 10:19:00 EDT, Dry Weight Start Date: 07/03/20 Status: OrderedZoloft 50 mg oral tablet 1 tablet = 50 mg, By Mouth, Daily, DOSAGE INCREASE, # 30 tablet, 6 Refills, Maintenance, 01/05/21 10:10:00 EDT, Tablet, [facility]/pharmacy #[id number], Partial fill upon patient request [...] Active cervical(Confirmed) Osteoporosis(Confirmed) Active *[facility] [phone] 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 50-70% bilaterally.3Patient's corner trimmer operator is [facility] and patient sees Dr. Gume Mart Social History Social History Type Response Tobacco Other: last cigarette 0. Sex
--- OUTSIDE RECORDS SUMMARY | 2022-06-09 08:55 | XMS_ITS | Continuity of Care Document ---
:1950 Author Organization [facility] Address [address] [place] [address]- Care Team Providers Name Role Phone Ranjeet Rushing MD Primary Care Physician [facility]counter [facility] Date(s): 07/07/20 - 08/06/20 [facility] [address] [place] [address]- Allergies, Adverse Reactions, Alerts Substance Reaction Severity [...] 07/19/08 Given 1Result Comment: [05/28/2017] [facility]: [id number] History: [id number] Note: VIS GIVEN-DATED Admin Note: vis [id number] Note: VIS [id number] Note: [id number] History: [facility] [id number] History: [facility] DEANGELO Gray Comment: [10/17/2015] PER NICO AT [id number] Note: VIS [id number] Note: VIS GIVEN Medications 12 inch Grab [...] 11 Refills, Maintenance, 05/05/20 14:02:00 EDT, Powder, [facility]/pharmacy #[id number], 2 puffs Inhalation Every 6 hours,PRN:as needed, 160.02, cm, 05/05/20 13:43:00 EDT, Height, 73.6, kg, 04/18/20 10:1... Start Date: 05/05/20 Status: Orderedalendronate 70 mg oral tablet 1 tablet, By Mouth, Every week, # 12 tablet, 0 Refills, Maintenance, 06/01/20 9:05:00 EDT, [facility]/pharmacy #[id number], 160.02, cm, 05/09/20 12:34:00 EDT, Height, 73.6, kg, 04/18/20 10:19:00 EDT, Dry Weight Start Date: 06/01/20 Status: Orderedallopurinol 300 mg oral tablet 300 mg, 1, tablet, By Mouth, Daily, # 90 tablet, Refills 0, Tot. Refills 0, Maintenance, 07/06/20 15:50:00 EST, Route to Pharmacy Electronically, [facility]/pharmacy #[id number], 160.02, cm, 07/03/20 14:54:00 EST, [...] 07/06/20 15:48:00 EST, Route to Pharmacy Electronically, [facility]/pharmacy #[id number], 160.02, cm, 07/03/20 14:54:00 EST,Height, [...] 3 Refills, Maintenance, 07/04/20 11:46:00 EST, Capsule, [facility]/pharmacy #[id number], 160.02, cm, 07/03/20 14:54:00 EST, Height, 73.6, kg, 04/18/20 10:19:00 EDT, Dry Weight Start Date: 07/04/20 Status: Orderedmagnesium oxide 400 mg oral tablet 1 tablet = 400 mg, By Mouth, Daily, PER RAJNI CARDONA, # 90 tablet, 0 Refills, Maintenance, 06/28/20 12:11:00 EST, [facility]/pharmacy #[id number], 160.02, cm, 06/01/20 11:03:00 EDT, Height, 73.6, kg, 04/18/20 10:19:00 EDT, Dry Weight Start Date: 06/28/20 Status: OrderedMelatonin 3 mg oral tablet 1 tablet = 3 mg, By Mouth, Daily at bedtime, PRN for insomnia, [facility], # 90 tablet, 3 Refills, Maintenance, 04/24/20 9:53:00 EDT, Tablet, [facility]/pharmacy #[id number], 1 [...] Maintenance, 02/21/20 11:53:00 EDT, [facility]/pharmacy #[id number], 301-350: 12 units, 351-400: 14 units, 401-450: 1... Start Date: 02/21/20 Status: OrderedoxyCODONE 5 mg oral capsule 1 capsule = 5 mg, By Mouth, Every 6 hours, PRN as needed for pain, 0 Refills, Maintenance, 06/01/20 11:12:00 EDT, Capsule, Partial fill upon patient request Start Date: 06/01/20 Status: OrderedPen [place], 31 G x 5 mm BD Ultra [...] 06/28/20 9:31:00 EST, Route to Pharmacy Electronically, [facility]/pharmacy #[id number], 160.02, cm, 06/01/20 11:03:00 EDT, Height, 73.6, kg, 04/18/20 10:19:00 EDT,... Start Date: 06/28/20 Status: Orderedspironolactone 100 mg oral tablet 1, tablet, By Mouth, Daily, # 30 tablet, Refills 2, Tot. Refills 2, Maintenance, 05/16/20 16:31:00 EDT, [id number] 160.02, cm, 05/09/20 12:34:00 EDT, Height, 73.6, kg, 04/18/20 10:19:00 EDT, Dry Weight Start Date: 05/16/20 Status: OrderedtraMADol 50 mg oral tablet See Instructions, PRN Pain , Severe, 1-2 tablets by mouth every 6 hours Schedule follow visit, # 240tablet, 1 Refills, Soft Stop, 05/19/20 16:27:00 EDT, [facility]/pharmacy #[id number], 160.02, cm, 05/09/20 12:34:00 EDT, [...] Refills, Maintenance, 07/03/20 15:20:00 EST, ER Tablet, [facility]/pharmacy #[id number], 160.02, cm, 07/03/20 14:54:00 EST, [...] Active cervical(Confirmed) Osteoporosis(Confirmed) Active *[facility] [phone] 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 50-70% bilaterally.3[facility] pillow agent [facility] and [facility] Dr. Gume Mart Social History Social History Type Response Smoking Status Current some day smoker; Typ e: Cigarettes; Other: less than 1/2 pack a day; Tobacco use times per day: 1/2 pack a day; entered on: 02/19/17 Sex
--- OUTSIDE RECORDS SUMMARY | 2022-06-09 08:55 | XMS_ITS | Continuity of Care Document ---
:1950 Author Organization [facility] Adult Address [address] [place] [address]- Care Team Providers Name Role Phone Ranjeet Rushing MD Primary Care Physician Encounter [facility] Date(s): 12/25/20 - 01/01/21 [facility] [address] [place] [address]- Encounter Diagnosis Wound of right ankle (Discharge Diagnosis) - 12/25/20 Attending Physician: Not on Staff, Attending MD [...] (oldterm)11 07/19/08 Given 1Result Comment: [05/28/2017] HD [facility]: [id number] History: [id number] Note: VIS GIVEN-DATED Admin Note: vis [id number] Note: VIS [id number] Note: VIS-[id number] History: [facility] [id number] History: [facility] [id number] Comment: [10/17/2015] PER NICO AT [id number] Note: VIS [id number] Note: VIS GIVEN Medications 12 inch Grab Bars 12 inch Grab Bars, See Instructions, # 2 each, Refills 0, Tot. Refills 0, Maintenance, Grab bars : Length 12inches Use as directed DX Unsteady Gait ICD10 R26.81 HT: 5'3 Weight 162lbs Length of need Lifetime, 07/07/20 11:45:00 EST, Supply Start Date: 07/07/20 Status: OrderedADMIT TO [facility] ADMIT TO [facility], See Instructions, # 1 each, Refills 0, Tot. Refills 0, Maintenance, FAX [phone] ADMIT TO LONG TERM, PT, OT. 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 Start Date: 10/17/20 Status: Orderedalbuterol 90 mcg/inh inhalation powder 2 puffs, Inhalation, Every 6 hours, PRN as needed, # 1 each, 11 Refills, Maintenance, 05/05/20 14:02:00 EDT, Powder, [id number], 2 puffs Inhalation Every 6 hours,PRN:as needed, 160.02, cm, 05/05/20 13:43:00 EDT, Height, 73.6, kg, 04/18/20 10:1... Start Date: 05/05/20 Status: Orderedalendronate 70 mg oral tablet 1 tablet, By Mouth, Every week, # 12 tablet, 0 Refills, Maintenance, 10/30/20 7:29:00 EST, [facility] [id number], 160, cm, 10/20/20 15:01:00 EST, Height, 77.5, kg, 10/05/20 14:31:00 EST, Dry Weight Start Date: 10/30/20 Status: Orderedallopurinol 300 mg oral tablet 300 mg, 1, tablet, By Mouth, Daily, # 90 tablet, Refills 0, Tot. Refills 0, Maintenance, 10/28/20 12:31:00 EST, Route to Pharmacy Electronically, [facility]/pharmacy #[id number], 160, cm, 10/20/20 15:01:00 [...] 1 Refills, Maintenance, 09/28/20 11:53:00 EST, Tablet, [facility]/pharmacy #[id number], 160, cm, 09/12/20 14:03:00 [...] 15:48:00 EST, Route to Pharmacy Electronically, [facility]/pharmacy #[id number], 160.02, cm, 07/03/20 14:54:00 EST,Height, 73.6, kg, 04/18/20 10:19:00 EDT, Dry Weight Start Date: 07/06/20 Stop Date: 10/04/20 Status: OrderedHumira 40 mg subcutaneous solution See Instructions, 40 mg [id number], 0 Refills, Maintenance, 10/23/20 13:46:00 EST, Partial fill upon patient request if the prescription is for a schedule II opioid drug. Start Date: 10/23/20 Status: OrderedLyrica 150 mg oral capsule 1 capsule = 150 mg, By Mouth, 2 times a day, DOSAGE INCREASE, # 60 capsule, 3 Refills, Maintenance, 07/04/20 11:46:00 EST, Capsule, [facility]/pharmacy #[id number], 160.02, cm, 07/03/20 14:54:00 EST, Height, 73.6, kg, 04/18/20 10:19:00 EDT, Dry Weight Start Date: 07/04/20 Status: Orderedmagnesium oxide 400 mg (240 mg elemental magnesium) oral tablet 1 tablet, By Mouth, Daily, # 90 tablet, 0 Refills, Acute, 09/20/20 12:20:00 EST, [facility]ORE [id number], 90, TAKE 1 TABLET BY MOUTH DAILY, [...] if th... Start Date: 08/30/20 Status: OrderedPen Jeff, 31 G x 5 mm BD Ultra [...] 9:31:00 EST, Route to Pharmacy Electronically, [facility]/pharmacy #[id number], 160.02, cm, 06/01/20 11:03:00 EDT, Height, 73.6, kg, 04/18/20 10:19:00 EDT,... Start Date: 06/28/20 Status: Orderedspironolactone 100 mg oral tablet 100 mg, 1, tablet, By Mouth, Daily, # 90 tablet, Refills 0, Tot. Refills 0, Maintenance, 11/29/20 7:42:00 EDT, Route to Pharmacy Electronically, [facility]/pharmacy #[id number], Partial fill upon patient request ifthe [...] # 9 Unknown, 5 Refills, 06/20/20 15:08:00EDT, [facility]/pharmacy #[id number], 160.02, cm, 06/01/20 11:03:00 EDT, Height, 73.6, kg, 04/18/20 10:19:00 EDT,Dry Weight Start Date: 06/20/20 Status: OrderedVitamin D3 1000 intl units oral capsule 1 capsule = 1,000 International_Units, By Mouth, Daily, # 90 capsule, 1 Refills, Maintenance, 09/25/20 7:44:00 EST, Capsule, [facility]/pharmacy #[id number], resent from 08/14, 160, cm, 09/12/20 14:03:00 EST, Height, 71.3, kg, 08/08/20 7:00:00 EST, Dry Weight Start Date: 09/25/20 Status: OrderedWellbutrin XL 300 mg/24 hours oral tablet, extended release 1 tablet = 300 mg, By Mouth, Daily, DOSAGE INCREASE, # 30 tablet, 5 Refills, Maintenance, 07/03/20 15:20:00 EST, ER Tablet, [facility]/pharmacy #[id number], 160.02, cm, 07/03/20 14:54:00 EST, Height, 73.6, kg, 04/18/20 10:19:00 EDT, Dry Weight Start Date: 07/03/20 Status: OrderedZoloft 50 mg oral tablet 1 tablet = 50 mg, By Mouth, Daily, DOSAGE INCREASE, # 30 tablet, 0 Refills, Maintenance, 10/30/20 17:12:00 EST, Tablet, [facility]/pharmacy #[id number], [...] cervical(Confirmed) Osteoporosis(Confirmed) Active *[facility] [phone] 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 50-70% bilaterally.3Patient's guest relations executive is [facility] and patient sees Dr. Gume Mart Diagnosis Diagnosis Type Effective Dates Health Status Clinical In formant Service Wound of right Discharge 12/25/20 ankle Diagnosis Vital Signs Most recent to oldest [Reference Range]: 1 Height 160 cm (12/25/20 2:20 PM) Weight 76.7 kg (12/25/20 2:20 PM) Oxygen Saturation [94-100 %] 95 % (12/25/20 2:20 PM) Pulse Rate [55-90 bpm] 84 bpm (12/25/20 2:20 PM) Body Mass Index [18.5-24.99] 29.96 *H* (12/25/20 2:20 PM) Blood Pressure [90-138/55-84 mm Hg] 132/64 mm Hg (12/25/20 2:20 PM) Blood pressure sites Arm, left (12/25/20 2:20 PM) Social History Social History Type Response Tobacco Other: last cigarette 0. Sex
--- OUTSIDE RECORDS SUMMARY | 2022-06-09 08:55 | XMS_ITS | Continuity of Care Document ---
:1950 Author Organization [address], [address] [place] [address]- Care Team Providers Name Role Phone Ranjeet Rushing MD Primary Care Physician [facility] Date[facility]s): 11/19/21 - 12/19/[address], [address] [place], [place] [address] Allergies, Adverse Reactions, Alerts Substance Reaction [...] Comment: [05/28/2017] [facility]: [id number] History: [id number] Note: VIS GIVEN-DATED Admin Note: vis [id number] Note: VIS [id number] Note: VIS-[id number] History: [facility] [id number] History: [facility] [id number] Comment: [10/17/2015] PER NICO AT [id number] Note: VIS [id number] Note: VIS GIVEN Medications 12 inch Grab [...] Maintenance, 05/05/20 14:02:00 EDT, Powder, [facility]/pharmacy #[id number], 2 puffs Inhalation Every 6 hours,PRN:as needed, 160.02, cm, 05/05/20 13:43:00 EDT, Height, 73.6, kg, 04/18/20 10:1... Start Date: 05/05/20 Status: Orderedalendronate 70 mg oral tablet 1 tablet, By Mouth, Every week, # 12 tablet, 6 Refills, Maintenance, 01/09/21 16:07:00 EDT, [facility], 160, cm, 12/25/20 14:20:00 EDT, Height, 77.5, kg, 10/05/20 14:31:00 EST, Dry Weight Start Date: 01/09/21 Status: Orderedallopurinol 300 mg oral tablet 1, tablet, By Mouth, Daily, # 90 tablet, Refills 1, Route to Pharmacy Electronically, [facility], 160, cm, 06/19/21 13:57:00 EDT, Height, 77.27, kg, 03/24/21 20:58:00 EDT, Dry Weight Start Date: 07/09/21 Status: OrderedBACK BRACE BACK BRACE, See Instructions, # 1 each, Refills 0, Tot. Refills 0, Maintenance, DX BACK PAIN M54.9 DANTE LIFETIME HT 5'3 WT 182 LB, 07/23/16 14:35:27, Compound Start Date: 07/23/16 Status: OrderedBD UF SHORT PEN NEEDLE [id number] BD UF SHORT PEN NEEDLE [id number], See Instructions, # 200 Unknown, 5 Refills, USE TO INJECT INSULIN TWICE A DAY, 160, cm, 11/27/21 14:08:00 EDT, Height, 74.8, kg, 11/01/21 15:05:00 EST, Dry Weight Start Date: 11/30/21 Status: OrderedbuPROPion 300 mg/24 hours (XL) oral tablet, extended release 1 tablet, By Mouth, Daily, # 30 tablet, 5 Refills, Maintenance, 08/30/21 7:54:00 EST, [facility]/pharmacy #[id number], 160, cm, 07/26/21 10:45:00 EST, Height, [...] tablet, 1 Refills, Maintenance,11/13/21 15:13:00 EDT, Tablet, [facility]/pharmacy #[id number], Partial fill upon patient request if [...] 1, Route to Pharmacy Electronically, [facility], 160, cm, 10/15/21 15:03:00 EST, Height, 75, kg, 09/14/21 11:51:00 EST, Dry Weight Start Date: 10/16/21 Status: OrderedLyrica 150 mg oral capsule 1 capsule = 150 mg, By Mouth, 2 times a day, DOSAGE INCREASE, # 60 capsule, 3 Refills, Maintenance, 11/12/21 16:27:00 EDT, Capsule, [facility]/pharmacy #[id number], 160, cm, 11/01/21 15:12:00 EST, Height, 74.8, kg,11/01/21 15:05:00 EST, Dry Weight Start Date: 11/12/21 Status: Orderedmagnesium oxide 400 mg (240 mg elemental magnesium) oral tablet 1 tablet, By Mouth, Daily, # 90 tablet, 0 Refills, Acute, 09/20/20 12:20:00 EST, [facility], 90, TAKE 1 TABLET BY MOUTH DAILY, 160, cm, 09/12/20 14:03:00 EST, Height, 71.3, kg, 08/08/20 7:00:00 EST, Dry Weight Start Date: 09/20/20 Status: Orderedmagnesium oxide 400 mg oral tablet 1 tablet = 400 mg, By Mouth, Daily, # 100 tablet, 2 Refills, Maintenance, 06/05/21 11:32:00 EDT, Tablet, [facility]/pharmacy #[id number], Partial fill upon patient request if the prescription is for a schedule II opioid drug., 160, cm, 05/21/21 11:03:00 EDT, [place]... Start Date: 06/05/21 Status: OrderedMelatonin 3 mg oral tablet 1 tablet = 3 mg, By Mouth, Daily at bedtime, PRN for insomnia, [facility], # 90 tablet, 3 Refills, Maintenance, 10/17/21 12:02:00 EST, Tablet, [facility]/pharmacy #[id number], 1 tablet By Mouth Daily at [...] EDT, Injec... Start Date: 06/11/21 Status: OrderedPen [place], 31 G x 5 mm BD Ultra [...] 09/15/21 17:53:00 EST, Route to Pharmacy Electronically, [facility]/pharmacy #[id number], 160, cm, 09/14/21 11:51:00 EST, Height, [...] 07/23/21 13:10:00 EST, Route to Pharmacy Electronically, [facility]/pharmacy #[id number], Partial fill upon patient request if the prescription is for a schedule II opioid thomas... Start Date: 07/23/21 Stop Date: 01/19/22 Status: OrderedtraMADol 50 mg oral tablet See Instructions, TAKE 1-2 TABLETS BY MOUTH EVERY 6 HOURS SCHEDULE FOLLOW VISIT, NEEDED FOR PAIN,# 240 tablet, 5 Refills, Maintenance, 05/31/21 9:52:00 EDT, [facility]/pharmacy #[id number], 160, cm, 05/21/21 11:03:00 EDT, Height, [...] # 9 Unknown, 5 Refills, [facility], 160, cm, 09/07/21 15:03:00 EST, Height, 77.27, kg, 03/24/21 20:58:00 EDT, Dry Weight Start Date: 09/11/21 Status: OrderedVitamin D3 1000 intl units oral capsule 1 capsule = 1,000 International_Units, By Mouth, Daily, # 90 capsule, 1 Refills, Maintenance, 09/25/20 7:44:00 EST, Capsule, [facility]/pharmacy #[id number], resent from 08/14, 160, cm, 09/12/20 [...] (osteoarthritis), Active cervical(Confirmed) Osteoporosis(Confirmed) Active *[facility] [phone] 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 50-70% bilaterally.3Patient's supervisor instrument mechanics is [facility] and patient sees Dr. Gume Mart Social History Social History Type Response Smoking Status Former smoker, quit more mrak n 30 days ago entered on: 09/28/21 Sex
--- OUTSIDE RECORDS SUMMARY | 2022-06-09 08:55 | XMS_ITS | Continuity of Care Document ---
:1950 Author Organization [facility] Address [address] [place] [address]- Care Team Providers Name Role Phone Aarti SUTTON, Jose Person Primary Care Physician [facility] Date[facility]s): 08/08/20 - 08/24/[address] [address] Attending Physician: Gabby Bernard DO Referring Physician: Gabby Bernard DO Allergies, Adverse Reactions, [...] (PPV23) (oldterm)11 07/19/08 Given 1Result Comment: [05/28/2017] [facility]: [id number] History: [id number] Note: VIS GIVEN-DATED Admin Note: vis [id number] Note: VIS fqufk4Phpss Note: VIS-[id number] History: [facility] [id number] History: [facility] DEANGELO HOOK9Result Comment: [10/17/2015] PER NICO AT [id number] Note: VIS [id number] Note: VIS GIVEN Medications 12 inch Grab [...] CAPSULE BY MOUTH EVERY DAY, [facility]/pharmacy #[id number] Start Date: 04/20/19 Status: Orderedcyanocobalamin 500 mcg oral tablet 1 tablet = 500 mcg, By Mouth, Daily, # 90 tablet, 0 Refills, Maintenance, 02/11/20 13:33:00 EDT, Tablet, [facility]/pharmacy #0693, 160.02, cm, 02/11/20 13:03:00 EDT, [...] Mouth, Daily at bedtime, PRN for insomnia, [facility] brand, # 90 tablet, 3 Refills, Maintenance, 04/24/20 9:53:00 EDT, Tablet, [facility]/pharmacy #0693, 1 tablet By Mouth Daily at bedtime,PRN:for insomnia,Instr:[facility] brand, 160.02, cm, 04/18/20... Start Date: [...] Date: 08/17/20 Stop Date: 09/07/20 Status: OrderedPen [place], 31 G x 5 [...] Unknown, 5 Refills, 06/20/20 15:08:00EDT, [facility]/pharmacy #0693, 160.02, cm, 06/01/20 11:03:00 EDT, Height, 73.6, kg, 04/18/20 10:19:00 EDT,Dry Weight Start Date: 06/20/20 Status: OrderedVitamin D3 1000 intl units oral capsule 1 capsule = 1,000 International_Units, By Mouth, Daily, # 90 capsule, 3 Refills, Maintenance, 10/20/19 9:16:00 EST, Capsule, [facility]/pharmacy #[id number], resent from 08/14, 160.02, cm, 09/29/19 14:57:00 EST, Height, 81.6, kg, 07/27/19 14:52:00 EST, Dry Weight Start Date: 10/20/19 Status: OrderedWellbutrin XL 300 mg/24 hours oral tablet, extended release 1 tablet = 300 mg, By Mouth, Daily, DOSAGE INCREASE, # 30 tablet, 5 Refills, Maintenance, 07/03/20 15:20:00 EST, ER Tablet, [facility]/pharmacy #0693, 160.02, cm, 07/03/20 [...] Active cervical(Confirmed) Osteoporosis(Confirmed) Active *[facility] [phone] 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 Gume Mart Social History Social History Type Response Tobacco Other: last cigarette 0. Sex
--- OUTSIDE RECORDS SUMMARY | 2022-06-09 08:55 | XMS_ITS | Continuity of Care Document ---
:1950 Author Organization [facility] Address [address] [place] [address]- Care Team Providers Name Role Phone Ranjeet Rushing MD Primary Care Physician Encounter [facility] Date(s): 03/22/22 - 04/21/[address] [address]- Allergies, Adverse Reactions, Alerts Substance Reaction Severity [...] (oldterm)11 07/19/08 Given 1Result Comment: [05/28/2017] [facility]: [id number] History: [id number] Note: VIS GIVEN-DATED Admin Note: vis [id number] Note: VIS [id number] Note: VIS-BKMFX7Yyktnyfu History: [facility] [id number] History: [facility] [id number] Comment: [10/17/2015] PER NICO AT [id number] Note: VIS [id number] Note: VIS GIVEN Medications 12 inch Grab [...] 11 Refills, Maintenance, 05/05/20 14:02:00 EDT, Powder, [facility]/pharmacy #0693, 2 puffs Inhalation Every 6 hours,PRN:as needed, 160.02, cm, 05/05/20 13:43:00 EDT, Height, 73.6, kg, 04/18/20 10:1... Start Date: 05/05/20 Status: Orderedalendronate 70 mg oral tablet 1 tablet, By Mouth, Every week, # 12 tablet, 1 Refills, [facility] 0[facility], 160, cm, 01/17/22 14:38:00 EDT, Height, 74.8, kg, 11/01/21 15:05:00 EST, Dry Weight Start Date: 01/30/22 Status: Orderedallopurinol 300 mg oral tablet 1, tablet, By Mouth, Daily, # 90 tablet, Refills 0, Route to Pharmacy Electronically, [facility], 160, cm, 02/21/22 15:11:00 EDT, Height, 74.8, kg, 11/01/21 15:05:00 EST, Dry Weight Start Date: 03/27/22 Status: OrderedBACK BRACE BACK BRACE, See Instructions, # 1 each, Refills 0, Tot. Refills 0, Maintenance, DX BACK PAIN M54.9 DANTE LIFETIME HT 5'3 WT 182 LB, 07/23/16 14:35:27, Compound Start Date: 07/23/16 Status: OrderedBD UF SHORT PEN NEEDLE [id number] BD UF SHORT PEN NEEDLE 3EUF22M, See Instructions, # 200 Unknown, 5 Refills, USE TO INJECT INSULIN TWICE A DAY, 160, cm, 11/27/21 14:08:00 EDT, Height, 74.8, kg, 11/01/21 15:05:00 EST, Dry Weight Start Date: 11/30/21 Status: OrderedbuPROPion 300 mg/24 hours (XL) oral tablet, extended release 1 tablet, By Mouth, Daily, # 30 tablet, 5 Refills, [facility], 160, cm, 02/04/22 13:44:00 EDT, Height, 74.8, [...] 3 Refills, Maintenance, 04/12/22 16:02:00 EDT, Tablet, [facility]/pharmacy #[id number], 160, cm, 04/10/22 14:31:00 [...] 1 Refills, Maintenance, 02/21/22 16:12:00 EDT, Tablet, [facility]/pharmacy #0693, Partial fill upon patient request if the prescription is for a schedule II opioid drug., 160, cm, 01/25... Start Date: 02/21/22 Status: OrderedFree Style ESDRAS 2 SENSORS Free Style ESDRAS 2 SENSORS, See Instructions, # 2 each, Refills 11, Tot. Refills 11, Maintenance, Free Style Esdras 2 SENSORS-90 day supply change every 14 days DM 2 , E11.9, 04/18/22 15:49:00 EDT, Supply Start Date: 04/18/22 Status: OrderedFreeStyle Esdras 2 METER FreeStyle Esdras 2 METER, See Instructions, # 1 each, Refills 0, Tot. Refills 0, Maintenance, dm 2 E11.9 FREESTYLE ESDRAS 2 METER, 04/18/22 15:49:00 EDT, Supply Start Date: 04/18/22 Status: OrderedFreestyle Lite Lancets See Instructions, # [...] tablet, Refills 1, Route to Pharmacy Electronically, [facility] 75[facility], 160, cm, 02/21/22 15:11:00 EDT, Height, 74.8, kg, 11/01/21 15:05:00 EST, Dry Weight Start Date: 03/12/22 Status: OrderedLidoderm 5% film 1 patch, Topically, Daily, # 30 patch, 11 Refills, Maintenance, 12/28/21 15:03:00 EDT, [facility]/pharmacy #0693, Partial fill upon patient request if the prescription is for a schedule II opioid drug., 1 patch Topically Daily,x30 days, 160, cm, 11/27/21 14:... Start Date: 12/28/21 Stop Date: 12/23/22 Status: OrderedLyrica 150 mg oral capsule 1 capsule = 150 mg, By Mouth, 2 times a day, DOSAGE INCREASE, # 60 capsule, 3 Refills, Maintenance, 03/26/22 10:58:00 EDT, Capsule, [facility]/pharmacy #0693, 160, cm, 02/21/22 15:11:00 EDT, Height, 74.8, kg,11/01/21 15:05:00 EST, Dry Weight Start Date: 03/26/22 Status: Orderedmagnesium oxide 400 mg oral tablet 1 tablet, By Mouth, Daily, # 100 tablet, 2 Refills, [facility], 160, cm, 02/21/22 15:11:00 EDT,Height, 74.8, kg, 11/01/21 15:05:00 EST, Dry Weight Start Date: 03/28/22 Status: OrderedMelatonin 3 mg oral tablet 1 tablet = 3 mg, By Mouth, Daily at bedtime, PRN for insomnia, [facility], # 90 tablet, 3 Refills, Maintenance, 10/17/21 12:02:00 EST, Tablet, [facility]/pharmacy #[id number], 1 tablet By Mouth [...] Acute 04/29/22 0:00:00 EDT, 04/08/22 10:39:00 EDT,Patch, [facility], Partial fill upon patient request [...] EDT, Injec... Start Date: 06/11/21 Status: OrderedPen [place], 31 G x 5 mm BD Ultra [...] 09/15/21 17:53:00 EST, Route to Pharmacy Electronically, [facility]/pharmacy #[id number], 160, cm, 09/14/21 11:51:00 [...] tablet, Refills 1, Route to Pharmacy Electronically, [facility] 317[facility], 160, cm, 11/27/21 14:08:00 EDT, Height, 74.8, kg, 11/01/21 15:05:00 EST, Dry Weight Start Date: 01/11/22 Status: OrderedtraMADol 50 mg oral tablet See Instructions, TAKE 1-2 TABLETS BY MOUTH EVERY 6 HOURS SCHEDULE FOLLOW VISIT, NEEDED FOR PAIN,# 240 tablet, 5 Refills, Maintenance, 01/17/22 11:33:00 EDT, [facility]/pharmacy #[id number], 160, cm, 11/27/21 14:08:00 [...] # 9 Unknown, 5 Refills, [facility], 160, cm, 09/07/21 15:03:00 EST, Height, 77.27, [...] cervical(Confirmed) Osteoporosis(Confirmed) Active *[facility] [phone] 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 50-70% bilaterally.3Patient's cheese maker is [facility] and patient sees Dr. Gume Mart Social History Social History Type Response Smoking Status Former smoker, quit more mark n 30 days ago entered on: 09/28/21 Sex Care Team PersonnelName: Kristan SUTTON, Ranjeet Beatty Address: [address] [place] [address] [place] [address]-
--- OUTSIDE RECORDS SUMMARY | 2022-06-09 08:55 | XMS_ITS | Continuity of Care Document ---
:1950 Author Organization [facility] Adult Address [address] [place] [address]- Care Team Providers Name Role Phone Aarti SUTTON, Jose Person Primary Care Physician [facility] 07[facility] - 08/17/20 [facility] Adult [address] [place] [address]- Allergies, Adverse Reactions, Alerts Substance Reaction Severity [...] 07/19/08 Given 1Result Comment: [05/28/2017] [facility]: [id number] History: [id number] Note: VIS GIVEN-DATED Admin Note: vis ysepr4Xalfh Note: VIS [id number] Note: VIS-[id number] History: [facility] [id number] History: [facility] Isaac Comment: [10/17/2015] PER NICO AT [id number] Note: VIS [id number] Note: VIS GIVEN Medications 12 inch Grab [...] 07/06/20 15:50:00 EST, [facility], [facility] [...] 07/06/20 15:48:00 EST, Route to Pharmacy Electronically, [facility]/pharmacy #[id number], 160.02, cm, 07/03/20 14:54:00 EST,Height, 73.6, kg, 04/18/20 10:19:00 EDT, Dry Weight Start Date: 07/06/20 Stop Date: 10/04/20 Status: OrderedLyrica 150 mg oral capsule 1 capsule = 150 mg, By Mouth, 2 times a day, DOSAGE INCREASE, # 60 capsule, 3 Refills, Maintenance, 07/04/20 11:46:00 EST, Capsule, [facility]/pharmacy #0693, 160.02, cm, 07/03/20 14:54:00 EST, Height, 73.6, kg, 04/18/20 10:19:00 EDT, Dry Weight Start Date: 07/04/20 Status: Orderedmagnesium oxide 400 mg oral tablet 1 tablet = 400 mg, By Mouth, Daily, PER RAJNI CARDONA, # 90 tablet, 0 Refills, Maintenance, 06/28/20 12:11:00 EST, [facility]/pharmacy #[id number], 160.02, cm, [...] Date: 08/17/20 Stop Date: 09/07/20 Status: OrderedPen [place], 31 G x 5 mm BD Ultra [...] 06/28/20 9:31:00 EST, [facility] Pharm[facility], [facility] [...] Active cervical(Confirmed) Osteoporosis(Confirmed) Active *[facility] [phone] 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 50-70% bilaterally.3Patient's perinatal coordinator is [facility] and patient sees Dr. Guem Mart Social History Social History Type Response Tobacco Other: last cigarette 0. Sex
--- OUTSIDE RECORDS SUMMARY | 2022-06-09 08:55 | XMS_ITS | Continuity of Care Document ---
:1950 Author Organization [facility] Adult Address [address] [place] [address]- Care Team Providers Name Role Phone Kristan SUTTON, Ranjeet Beatty Primary Care Physician [facility] Date[facility]s): 02/21/22 - 02/28/22 [facility] Adult [address] [place] [address]- Attending Physician: Matilda LOZADA, Chari Santos Referring [...] Given 1Result Comment: [05/28/2017] [facility]: [id number] History: [id number] Note: VIS GIVEN-DATED Admin Note: vis ngxhy7Ycwzx Note: VIS elntq5Upnqk Note: VIS-YTGTY7Qszysnxo History: [facility] [place] [place] [id number] History: [facility] NJ7Rihbaj Comment: [10/17/2015] PER NICO AT [id number] Note: VIS [id number] Note: VIS GIVEN Medications 12 inch Grab [...] # 12 tablet, 1 Refills, [facility], 160, cm, 01/17/22 14:38:00 EDT, Height, 74.8, kg, 11/01/21 15:05:00 EST, Dry Weight Start Date: 01/30/22 Status: Orderedallopurinol 300 mg oral tablet 1, tablet, By Mouth, Daily, # 90 tablet, Refills 0, Route to Pharmacy Electronically, [facility], 160, cm, 11/27/21 14:08:00 EDT, Height, 74.8, kg, 11/01/21 15:05:00 EST, Dry Weight Start Date: 12/30/21 Status: OrderedBACK BRACE BACK BRACE, See Instructions, # 1 each, Refills 0, Tot. Refills 0, Maintenance, DX BACK PAIN M54.9 DANTE LIFETIME HT 5'3 WT 182 LB, 07/23/16 14:35:27, Compound Start Date: 07/23/16 Status: OrderedBD UF SHORT PEN NEEDLE [id number] BD UF SHORT PEN NEEDLE 4OJW89N, See Instructions, # 200 Unknown, 5 Refills, USE TO INJECT INSULIN TWICE A DAY, 160, cm, 11/27/21 14:08:00 EDT, Height, 74.8, kg, 11/01/21 15:05:00 EST, Dry Weight Start Date: 11/30/21 Status: OrderedbuPROPion 300 mg/24 hours (XL) oral tablet, extended release 1 tablet, By Mouth, Daily, # 30 tablet, 5 Refills, [facility] 124[facility], 160, cm, 02/04/22 13:44:00 EDT, Height, 74.8, [...] 1 Refills, Maintenance, 02/21/22 16:12:00 EDT, Tablet, [facility]/pharmacy #[id number], Partial fill upon patient request if the prescription is for a schedule II opioid drug., 160, cm, 3... Start Date: 02/21/22 Status: OrderedFreestyle Lite Lancets [...] tablet, Refills 1, Route to Pharmacy Electronically, [facility] 65[facility], 160, cm, 10/15/21 15:03:00 EST, Height, 75, kg, 09/14/21 11:51:00 EST, Dry Weight Start Date: 10/16/21 Status: Orderedhydrocortisone 2.5% topical cream 1 application, Topically, 3 times a day, apply in a thin film to the affected skin and rub in gentlyand completely, # 30 Gm, 0 Refills, Acute 03/14/22 0:00:00 EDT, 02/21/22 16:08:00 EDT, Cream, [facility]/pharmacy #0693, Partial fill upon patient [...] 3 Refills, Maintenance, 11/12/21 16:27:00 EDT, Capsule, [facility]/pharmacy #0693, 160, cm, 11/01/21 15:12:00 EST, Height, 74.8, kg,11/01/21 15:05:00 EST, Dry Weight Start Date: 11/12/21 Status: Orderedmagnesium oxide 400 mg (240 mg elemental magnesium) oral tablet 1 tablet, By Mouth, Daily, # 90 tablet, 0 Refills, Acute, 09/20/20 12:20:00 EST, [facility] [address], 90, TAKE 1 TABLET BY MOUTH DAILY, [...] EDT, Injec... Start Date: 06/11/21 Status: OrderedPen [place], 31 G x 5 mm BD Ultra [...] 09/15/21 17:53:00 EST, Route to Pharmacy Electronically, [facility]/pharmacy #[id number], 160, cm, 09/14/21 11:51:00 EST, [...] tablet, Refills 1, Route to Pharmacy Electronically, [facility] 48[facility], 160, cm, 11/27/21 14:08:00 EDT, Height, 74.8, kg, 11/01/21 15:05:00 EST, Dry Weight Start Date: 01/11/22 Status: OrderedtraMADol 50 mg oral tablet See Instructions, TAKE 1-2 TABLETS BY MOUTH EVERY 6 HOURS SCHEDULE FOLLOW VISIT, NEEDED FOR PAIN,# 240 tablet, 5 Refills, Maintenance, 01/17/22 11:33:00 EDT, [facility]/pharmacy #0693, 160, cm, 11/27/21 14:08:00 EDT, [...] # 9 Unknown, 5 Refills, [facility], 160, cm, 09/07/21 15:03:00 EST, Height, 77.27, [...] myelopathy(Confirmed) OA (osteoarthritis), Active cervical(Confirmed) Osteoporosis(Confirmed) Active *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 50-70% bilaterally.3Patient's slot technician is [facility] and patient sees Dr. Gume aMrt Vital Signs Most recent to oldest [Reference Range]: 1 Height 160 cm (02/21/22 3:11 PM) Weight 76.4 kg (02/21/22 3:11 PM) Oxygen Saturation [94-100 %] 94 % (02/21/22 3:11 PM) Pulse Rate [55-90 bpm] 90 bpm (02/21/22 3:11 PM) Body Mass Index [18.5-24.99] 29.84 *H* (02/21/22 3:11 PM) Blood Pressure [90-138/55-84 mm Hg] 118/68 mm Hg (02/21/22 3:11 PM) Respiratory Rate [16-30 br/min] 12 br/min *L* (02/21/22 3:11 PM) Mode of Delivery (Oxygen) Room air (02/21/22 3:11 PM) Blood pressure sites Arm, right (02/21/22 3:11 PM) Weight Obtained Via Standing scale (02/21/22 3:11 PM) Social History Social History Type Response Smoking Status Former smoker, quit more mark n 30 days ago entered on: 09/28/21 Sex
--- OUTSIDE RECORDS SUMMARY | 2022-06-09 08:55 | XMS_ITS | Continuity of Care Document ---
:1950 Author Organization [facility] [place] [facility] [place] [address], [address] [place] [address]- Care Team Providers Name Role Phone Kristan SUTTON, Ranjeet Beatty Primary Care Physician Encounter 11/02/20 - 11/09/20 [facility] [address], [address] [place] [address]- Attending Physician: Matilda LOZADA, Chari Santos Admitting [...] (PPV23) (oldterm)11 07/19/08 Given 1Result Comment: [05/28/2017] [facility]: [id number] History: [id number] Note: VIS GIVEN-DATED Admin Note: vis gzjdx9Omgio Note: VIS gndpa7Fitwl Note: VIS-YBZZO9Sjztceam [place] [facility] [id number] History: [facility] DEANGELO Gray Comment: [10/17/2015] PER NICO AT [id number] Note: VIS [id number] Note: VIS GIVEN Medications 12 inch Grab Bars 12 inch Grab Bars, See Instructions, # 2 each, Refills 0, Tot. Refills 0, Maintenance, Grab bars : Length 12inches Use as directed DX Unsteady Gait ICD10 R26.81 HT: 5'3 Weight 162lbs Length of need Lifetime, 07/07/20 11:45:00 EST, Supply Start Date: 07/07/20 Status: [facility] AD[facility] TO [facility], See Instructions, # 1 each, Refills 0, Tot. Refills 0, Maintenance, FAX [phone] ADMIT TO HALF-WAY, PT, OT. 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 DIAGNOSIS: Cervical radiculopathy at [...] Maintenance, 10/30/20 7:29:00 EST, [facility] [id number], 160, cm, 10/20/20 15:01:00 EST, Height, 77.5, [...] Electronically, [facility]/pharmacy #[id number], 160.02, cm, 07/03/20 14:54:00 EST,Height, 73.6, kg, 04/18/20 10:19:00 EDT, Dry Weight Start Date: 07/06/20 Stop Date: 10/04/20 Status: OrderedHumira 40 mg subcutaneous solution See Instructions, 40 mg [id number], 0 Refills, Maintenance, 10/23/20 13:46:00 EST, Partial [...] 09/20/20 12:20:00 EST, [facility], 90, TAKE 1 TABLET BY MOUTH DAILY, [...] 1 tablet By Mouth Daily at bedtime,PRN:for insomnia,Instr:[employer] brand, 160.02, cm, 04/18/20... Start Date: 04/24/20 [...] if th... 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 and patient sees Dr. Gume Mart Results Radiology Reports Exam Date Time Procedure Performing Provider Status 11/02/20 4:38 PM Dexa Bone Density (Axial) Mago Arroyo ( Verified) Notes:(Dexa Bone Density (Axial)) Reason For Exam: Post MenopausalRESULT: DEXA BONE DENSITY (AXIAL) Bone Density Report Name: RAFAEL GOVEA Age: 70 Sex: Female Ethnicity: White Date of : 1950 Indication: POSTMENOPAUSAL. Referring Provider: CHARI EMERY Study: Bone densitometry was performed. Exam Date: November 02, 2020 Accession number: [id number] Bone Density: Region BMD T-score Z-score Classification AP Spine (L1-L4) 1.301 2.3 4.6 Normal Femoral Neck (Right) 0.560 -2.6 -0.7 Osteoporosis Total Hip (Right) 0.705 -1.9 -0.3 Osteopenia Total Forearm (Right) 0.482 -1.8 0.4 1/3 Forearm (Right) 0.537 -2.6 -0.3 Osteoporosis UD Forearm (Right) 0.399 -0.8 0.9 World Health Organization criteria for BMD impression classify patients as: Normal (T-score at or above -1.0), Osteopenia (T-score between -1.0 and -2.5), or Osteoporosis (T-score at or below -2.5). 10-year Fracture Risk: FRAX not reported because: Some T-score at or below -2.5 Treated for osteoporosis Previous Exams: Region Exam Age BMD T-score BMD Change BMD Change Date g/cm2 vs Baseline vs Previous AP Spine(L1-L4) 11/02/2020 70 1.301 2.3 7.1%* 7.1%* 07/05/2015 65 1.215 1.5 Total Hip(Right) 11/02/2020 70 0.705 -1.9 -9.8%* -9.8%* 07/05/2015 65 0.782 -1.3 Femoral Neck(Right) 11/02/2020 70 0.560 -2.6 -16.5%* -16.5%* 07/05/2015 65 0.671 -1.6 1/3 Forearm(Right) 11/02/2020 70 0.537 -2.6 4.8%* 4.8%* 07/05/2015 65 0.512 -3.0 *Denotes significance at 95% confidence level, LSC for AP Spine = 0.022 g/cm2, LSC for Total Hip = 0.027 g/cm2, LSC for 1/3 Forearm = 0.023 g/cm2 Clinical Information Provided by Patient: Is being treated for osteoporosis Has used the following medications: Fosamax (i.e. alendronate), Vitamin D, Calcium Patient maximum height was 63.0 Menopause Age: 38 Onset of menses at age 11 Number of children 3 Impression: Spine BMD values are excluded due to multilevel degenerative change The patient has osteoporosis as determined by WHO criteria. Reported by: Cecil Ahuja M.D. on 11/08/2020 11:00:00 AM. Dictated By: Cecil Ahuja MD Dictated Date/Time: 11/08/20 11:01 a Reviewed By: Cecil Ahuja MD Signed By: eCcil Ahuja MD Signed Date/Time: 11/08/20 11:01 am Transcribed By: JOSE Transcribed Date/Time: 11/08/20 11:01 am Social History Social History Type Response Tobacco Other: last cigarette 0. Sex
--- OUTSIDE RECORDS SUMMARY | 2022-06-09 08:55 | XMS_ITS | Continuity of Care Document ---
:1950 Author Organization [facility] Address [address] [place] [address]- Care Team Providers Name Role Phone Ranjeet Rushing MD Primary Care Physician [place] [facility] [place] 07/27[place] - 11/24/21 [facility] [address] [place] [address]- Attending Physician: Chari Grey NP Referring Physician: [...] Given 1Result Comment: [05/28/2017] [facility]: [id number] History: [id number] Note: VIS GIVEN-DATED Admin Note: vis xrkpi2Jeboi Note: VIS xoqxo0Hqjdj Note: VIS-BCIYT0Npjrxcgq History[place] [facility] [place] [id number] History: [facility] [id number] Comment: [10/17/2015] PER NICO AT [id number] Note: VIS [id number] Note: VIS GIVEN Medications 12 inch Grab [...] Refills, Maintenance, 01/09/21 16:07:00 EDT, [facility], 160, cm, 12/25/20 14:20:00 EDT, Height, 77.5, kg, 10/05/20 14:31:00 EST, Dry Weight Start Date: 01/09/21 Status: Orderedallopurinol 300 mg oral tablet 1, tablet, By Mouth, Daily, # 90 tablet, Refills 1, Route to Pharmacy Electronically, [facility], 160, cm, 06/19/21 13:57:00 EDT, Height, 77.27, [...] tablet, 5 Refills, Maintenance, 08/30/21 7:54:00 EST, [facility]/pharmacy #0693, 160, cm, 07/26/21 [...] 1 Refills, Maintenance, 09/18/21 11:52:00 EST, Tablet, [facility]/pharmacy [...] tablet, 1 Refills, Maintenance,11/13/21 15:13:00 EDT, Tablet, [facility]/pharmacy [...] Electronically, [facility], 160, cm, 10/15/21 15:03:00 EST, Height, 75, kg, 09/14/21 11:51:00 EST, Dry Weight Start Date: 10/16/21 Status: OrderedLyrica 150 mg oral capsule 1 capsule = 150 mg, By Mouth, 2 times a day, DOSAGE INCREASE, # 60 capsule, 3 Refills, Maintenance, 11/12/21 16:27:00 EDT, Capsule, [facility]/pharmacy #[id number], 160, cm, 11/01/21 15:12:00 EST, Height, 74.8, kg,11/01/21 15:05:00 EST, Dry Weight Start Date: 11/12/21 Status: Orderedmagnesium oxide 400 mg (240 mg elemental magnesium) oral tablet 1 tablet, By Mouth, Daily, # 90 tablet, 0 Refills, Acute, 09/20/20 12:20:00 EST, [facility], 90, TAKE 1 TABLET BY MOUTH DAILY, 160, cm, 09/12/20 14:03:00 EST, Height, 71.3, kg, 08/08/20 7:00:00 EST, Dry Weight Start Date: 09/20/20 Status: Orderedmagnesium oxide 400 mg oral tablet 1 tablet = 400 mg, By Mouth, Daily, # 100 tablet, 2 Refills, Maintenance, 06/05/21 11:32:00 EDT, Tablet, [facility]/pharmacy [...] Injec... Start Date: 06/11/21 Status: OrderedPen [place], 31 G x 5 mm BD Ultra [...] 07/23/21 13:10:00 EST, Route to Pharmacy Electronically, [facility]/pharmacy #[id number], Partial fill upon patient request if the prescription is for a schedule II opioid thomas... Start Date: 07/23/21 Stop Date: 01/19/22 Status: OrderedtraMADol 50 mg oral tablet See Instructions, TAKE 1-2 TABLETS BY MOUTH EVERY 6 HOURS SCHEDULE FOLLOW VISIT, NEEDED FOR PAIN,# 240 tablet, 5 Refills, Maintenance, 05/31/21 9:52:00 EDT, [facility]/pharmacy #[id number], 160, cm, 05/21/21 [...] Refills, Maintenance, 04/19/21 11:35:00 EDT, Powder, [facility]/pharmacy #0693, Partial [...] 11 Refills, Soft Stop, 07/26/21 11:05:00 EST, 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 50-70% bilaterally.3Patient's prenatal nurse is [facility] and patient sees Dr. Gume Mart Social History Social History Type Response Smoking Status Former smoker, quit more mark n 30 days ago entered on: 09/28/21 Sex
--- OUTSIDE RECORDS SUMMARY | 2022-06-09 08:55 | XMS_ITS | Continuity of Care Document ---
:1950 Author Organization [facility] Address [address] [place] [address]- Care Team Providers Name Role Phone Ranjeet Rushing MD Primary Care Physician Encounter [facility] Date(s): 04/16/21 - 05/16/21 [facility] [address] [place] [address]- Allergies, Adverse Reactions, Alerts Substance Reaction Severity [...] (oldterm)11 07/19/08 Given 1Result Comment: [05/28/2017] [facility]: [id number] History: [id number] Note: VIS GIVEN-DATED Admin Note: vis orqhl8Duhiv Note: VIS yupch8Ccjpb Note: VIS-TQPEE9Xmfztcob [place] [facility] [place] QJ7Saezztzm History: [facility] EY5Dqbyjl Comment: [10/17/2015] PER NICO AT [id number] Note: VIS USUVC52Stnij Note: VIS GIVEN Medications 12 inch Grab [...] 01/09/21 16:07:00 EDT, [facility], 160, cm, 12/25/20 14:20:00 EDT, Height, 77.5, [...] tablet, 5 Refills, Maintenance, 03/12/21 10:51:00 EDT, [facility], 160, cm, 02/27/21 13:50:00 EDT, Height, 79.6, [...] 1 Refills, Maintenance, 02/08/21 9:52:00 EDT, Tablet, [facility]/pharmacy #[id number], 160, cm, 01/25/21 [...] mg subcutaneous solution See Instructions, 40 mg Z5xszrn, 0 Refills, Maintenance, 10/23/20 13:46:00 EST, Partial [...] 09/20/20 12:20:00 EST, [facility] 0[facility], 90, TAKE 1 TABLET BY MOUTH DAILY, [...] 1 tablet By Mouth Daily at bedtime,PRN:for insomnia,Instr:[employer] brand, 160.02, cm, 04/18/20... Start Date: 04/24/20 [...] if th... 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 50-70% bilaterally.3Patient's thread milling machine set up operator is [facility] and patient sees Dr. Gume Mart Social History Social History Type Response Tobacco Other: last cigarette 0. Sex
--- OUTSIDE RECORDS SUMMARY | 2022-06-09 08:56 | XMS_ITS | Continuity of Care Document ---
:1950 Author Organization [facility] [place] [facility] [address], [address] [place] [address]- Care Team Providers Name Role Phone Kristan SUTTON, Ranjeet Beatty Primary Care Physician Encounter 12/07/21 - 12/14/21 [facility] [address], [address] [place] [address]- Attending Physician: Matilda LOZADA, Chari Santos Admitting [...] (PPV23) (oldterm)11 07/19/08 Given 1Result Comment: [05/28/2017] [facility]: [id number] History: LDV1Mvvjq Note: VIS GIVEN-DATED Admin Note: vis lqbdx4Umyxc Note: VIS jtjef2Ixsms Note: VIS-CWUVW1Zojyrzbo [place] [facility] [place]F8Pjftubcb History: [facility] BQ2Ategmc Comment: [10/17/2015] PER NICO AT TMO98Zosar Note: VIS OJLDU14Wccxl Note: VIS GIVEN Medications 12 inch Grab [...] Refills, Maintenance, 05/05/20 14:02:00 EDT, Powder, [facility]/pharmacy #0693, 2 puffs Inhalation Every 6 hours,PRN:as needed, 160.02, cm, 05/05/20 13:43:00 EDT, Height, 73.6, kg, 04/18/20 10:1... Start Date: 05/05/20 Status: Orderedalendronate 70 mg oral tablet 1 tablet, By Mouth, Every week, # 12 tablet, 6 Refills, Maintenance, 01/09/21 16:07:00 EDT, [facility], 160, cm, 12/25/20 14:20:00 EDT, Height, 77.5, kg, 10/05/20 14:31:00 EST, Dry Weight Start Date: 01/09/21 Status: Orderedallopurinol 300 mg oral tablet 1, tablet, By Mouth, Daily, # 90 tablet, Refills 1, Route to Pharmacy Electronically, [facility] 480[facility], 160, cm, 06/19/21 13:57:00 EDT, Height, 77.27, kg, 03/24/21 20:58:00 EDT, Dry Weight Start Date: 07/09/21 Status: OrderedBACK BRACE BACK BRACE, See Instructions, # 1 each, Refills 0, Tot. Refills 0, Maintenance, DX BACK PAIN M54.9 DANTE LIFETIME HT 5'3 WT 182 LB, 07/23/16 14:35:27, Compound Start Date: 07/23/16 Status: OrderedBD UF SHORT PEN NEEDLE 8LGH78M BD UF SHORT PEN NEEDLE 7HVL75Y, See Instructions, # 200 Unknown, 5 Refills, USE TO INJECT INSULIN TWICE A DAY, 160, cm, 11/27/21 14:08:00 EDT, Height, 74.8, kg, 11/01/21 15:05:00 EST, Dry Weight Start Date: 11/30/21 Status: OrderedbuPROPion 300 mg/24 hours (XL) oral tablet, extended release 1 tablet, By Mouth, Daily, # 30 tablet, 5 Refills, Maintenance, 08/30/21 7:54:00 EST, [facility]/pharmacy #0693, 160, cm, 07/26/21 10:45:00 EST, [...] tablet, 1 Refills, Maintenance,11/13/21 15:13:00 EDT, Tablet, [facility]/pharmacy #0693, Partial fill upon patient request [...] 1, Route to Pharmacy Electronically, [facility], 160, cm, 10/15/21 15:03:00 EST, Height, 75, kg, 09/14/21 11:51:00 EST, Dry Weight Start Date: 10/16/21 Status: OrderedLyrica 150 mg oral capsule 1 capsule = 150 mg, By Mouth, 2 times a day, DOSAGE INCREASE, # 60 capsule, 3 Refills, Maintenance, 11/12/21 16:27:00 EDT, Capsule, [facility]/pharmacy #0693, 160, cm, 11/01/21 15:12:00 EST, Height, 74.8, kg,11/01/21 15:05:00 EST, Dry Weight Start Date: 11/12/21 Status: Orderedmagnesium oxide 400 mg (240 mg elemental magnesium) oral tablet 1 tablet, By Mouth, Daily, # 90 tablet, 0 Refills, Acute, 09/20/20 12:20:00 EST, [facility], 90, TAKE 1 TABLET BY MOUTH DAILY, 160, cm, 09/12/20 14:03:00 EST, Height, 71.3, kg, 08/08/20 7:00:00 EST, Dry Weight Start Date: 09/20/20 Status: Orderedmagnesium oxide 400 mg oral tablet 1 tablet = 400 mg, By Mouth, Daily, # 100 tablet, 2 Refills, Maintenance, 06/05/21 11:32:00 EDT, Tablet, [facility]/pharmacy #0693, Partial fill upon patient request if the prescription is for a schedule II opioid drug., 160, cm, 05/21/21 11:03:00 EDT, Heigh... Start Date: 06/05/21 Status: OrderedMelatonin 3 mg oral tablet 1 tablet = 3 mg, By Mouth, Daily at bedtime, PRN for insomnia, [facility], # 90 tablet, 3 Refills, Maintenance, 10/17/21 12:02:00 EST, Tablet, [facility]/pharmacy #0693, 1 tablet By Mouth Daily [...] EDT, Injec... Start Date: 06/11/21 Status: OrderedPen [place], 31 G x 5 mm BD [...] 17:53:00 EST, Route to Pharmacy Electronically, [facility]/pharmacy #0651, 160, cm, 09/14/21 11:51:00 EST, Height, 75, [...] 13:10:00 EST, Route to Pharmacy Electronically, [facility]/pharmacy #0693, Partial fill upon patient request if the prescription is for a schedule II opioid thomas... Start Date: 07/23/21 Stop Date: 01/19/22 Status: OrderedtraMADol 50 mg oral tablet See Instructions, TAKE 1-2 TABLETS BY MOUTH EVERY 6 HOURS SCHEDULE FOLLOW VISIT, NEEDED FOR PAIN,# 240 tablet, 5 Refills, Maintenance, 05/31/21 9:52:00 EDT, [facility]/pharmacy #0693, 160, cm, 05/21/21 11:03:00 EDT, [...] Refills, Soft Stop, 07/26/21 11:05:00 EST, [facility]/pharmacy #0693, 160, cm, 07/26/21 10:45:00 EST, [...] # 9 Unknown, 5 Refills, [facility], 160, cm, 09/07/21 15:03:00 EST, Height, 77.27, [...] Active cervical(Confirmed) Osteoporosis(Confirmed) Active *[facility] [phone] 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 50-70% bilaterally.3Patient's transit coach operator is [facility] and patient sees Dr. Gume Mart Social History Social History Type Response Smoking Status Former smoker, quit more mark n 30 days ago entered on: 09/28/21 Sex
--- OUTSIDE RECORDS SUMMARY | 2022-06-09 08:56 | XMS_ITS | Continuity of Care Document ---
:1950 Author Organization [facility] Address [address] [place] [address]- Care Team Providers Name Role Phone Ranjeet Rushing MD Primary Care Physician [facility] 04[facility]20 - 05/04/20 [facility] [address] [place] [address]- [facility] Allergies, Adverse Reactions, Alerts Substance Reaction Severity [...] Given 1Result Comment: [05/28/2017] [facility]: [id number] History: [id number] Note: VIS GIVEN-DATED Admin Note: vis mrmvq1Wcmip Note: VIS [id number] Note: VIS-TMZIJ0Bbonjyun History[place] [facility] [place] [id number] History: [facility] Isaac Comment: [10/17/2015] PER NICO AT [id number] Note: VIS [id number] Note: VIS GIVEN Medications albuterol 90 mcg/inh inhalation powder 2 puffs, Inhalation, Every 6 hours, PRN as needed, # 1 each, 11 Refills, Maintenance, 12/29/18 9:38:36 EDT, Powder, 2 puffs Inhalation Every 6 hours,PRN:as needed Start Date: 12/29/18 Status: Orderedalendronate 70 mg oral tablet 1 tablet, By Mouth, Every week, # 12 tablet, 0 Refills, Maintenance, 03/17/20 11:27:00 EDT, [facility] STORE [address]28, 160.02, cm, 03/14/20 13:30:00 EDT, Height, 81.6, kg, 07/27/19 14:52:00 EST, Dry Weight Start Date: 03/17/20 Status: Orderedallopurinol 300 mg oral tablet 1, tablet, By Mouth, Daily, # 90 tablet, Refills 0, Tot. Refills 0, Maintenance, 04/05/20 9:38:00 EDT, Route to Pharmacy Electronically, [facility]/pharmacy #[id number], 160.02, cm, 03/29/20 10:57:00 EDT, Height, [...] TAKE 1 CAPSULE BY MOUTH EVERY DAY, [facility]/pharmacy #0693 Start Date: 04/20/19 Status: Orderedcyanocobalamin 500 mcg oral tablet 1 tablet = 500 mcg, By Mouth, Daily, # 90 tablet, 0 Refills, Maintenance, 02/11/20 13:33:00 EDT, Tablet, [facility]/pharmacy #0693, 160.02, cm, 02/11/20 13:03:00 EDT, Height, [...] 04/07/20 11:50:00 EDT, Route to Pharmacy Electronically, [facility]/pharmacy #0693, 160.02, cm, 03/29/20 10:57:00 EDT,Height, 81.6, kg, 07/27/19 14:52:00 EST, Dry Weight Start Date: 04/07/20 Status: Orderedgabapentin 300 mg oral capsule 300 mg, 1, capsule, By Mouth, 3 times a day, # 90 capsule, Refills 5, Tot. Refills 5, Maintenance, 04/13/20 12:42:00 EDT, Route to Pharmacy Electronically, [facility]/pharmacy #0693, 160.02, cm, 03/29/20 10:57:00 EDT, Height, [...] 3 Refills, Maintenance, 04/24/20 9:53:00 EDT, Tablet, [facility]/pharmacy #0693, 1 tablet By Mouth Daily at [...] each, 5 Refills, Maintenance, 02/21/20 11:53:00 EDT, [facility]/pharmacy #0693, 301-350: 12 units, 351-400: 14 units, 401-450: 1... Start Date: 02/21/20 Status: OrderedPen [place], 31 G x 5 mm BD Ultra Fine III See Instructions, # 200 each, Refills 5, Tot. Refills 5, Maintenance, To inject insulin BID for DM II E11.9 PER RAJNI EMERY NP-Marquita, 12/28/18 12:38:05 EDT, SHORT, Compound Start Date: 12/28/18 Status: Orderedsimvastatin 10 mg oral tablet 10 mg, 1, tablet, By Mouth, Daily at bedtime, # 90 tablet, Refills 3, Tot. Refills 3, Maintenance, 07/20/19 16:14:12 EST, Route to Pharmacy Electronically, [id number], [facility]/pharmacy #[id number] Start Date: 07/20/19 Status: Orderedspironolactone 100 mg oral tablet 1, tablet, By Mouth, Daily, # 30 tablet, Refills 5, Tot. Refills 0, Maintenance, 12/07/19 13:00:00 EDT, Route to Pharmacy Electronically, [facility] ST[facility] [address], 160.02, cm, 11/02/19 15:34:00 EDT, Height, 81.6, kg, 07/27/19 14:52:00 EST, Dry Weight Start Date: 12/07/19 Status: OrderedtraMADol 50 mg oral tablet See Instructions, PRN Pain , Severe, 1-2 tablets by mouth every 6 hours, # 240 tablet, 1 Refills, Soft Stop, 03/14/20 14:29:00 EDT, [facility]/pharmacy #0693, 160.02, cm, 03/14/20 13:30:00 EDT, Height, [...] 5 Refills, Soft Stop, 12/16/19 15:45:00 EDT, [facility]/pharmacy #0693, 160.02, cm, 11/02/19 15:34:00 EDT, Height, 81.6, kg, 07/27/19 14:52:00 EST, Dry Weight Start Date: 12/16/19 Status: OrderedVictoza 18 mg/3 mL subcutaneous solution See Instructions, INJECT 1.8 MG SUBCUTANEOUS DAILY, # 9 Unknown, 0 Refills, Maintenance, 04/30/20 11:15:00 EDT, [facility]/pharmacy #0693, 160.02, cm, 04/18/20 10:19:00 EDT, Height, 73.6, kg, 04/18/20 10:19:00 EDT, Dry Weight Start Date: 04/30/20 Status: OrderedVitamin D3 1000 intl units oral capsule 1 capsule = 1,000 International_Units, By Mouth, Daily, # 90 capsule, 3 Refills, Maintenance, 10/20/19 9:16:00 EST, Capsule, [facility]/pharmacy #0693, resent from 08/14, 160.02, cm, 09/29/19 14:57:00 EST, Height, 81.6, kg, 07/27/19 14:52:00 EST, Dry Weight Start Date: 10/20/19 Status: OrderedWellbutrin XL 150 mg/24 hours oral tablet, extended release 1 tablet = 150 mg, By Mouth, Every 24 hours, do not crush or chew, # 30 tablet, 6 Refills, Maintenance, 12/09/19 16:12:00 EDT, ER Tablet, [facility]/pharmacy #0693, 160.02, cm, 11/02/19 15:34:00 EDT, Height, [...] (osteoarthritis), Active cervical(Confirmed) Osteoporosis(Confirmed) Active *[facility] [phone] 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 50-70% bilaterally.3Patient's hydrogen treater is [facility] and patient sees Dr. Gume Mart Social History Social History Type Response Smoking Status Current some day smoker; Typ e: Cigarettes; Other: less than 1/2 pack a day; Tobacco use times per day: 1/2 pack a day; entered on: 02/19/17 Sex
--- OUTSIDE RECORDS SUMMARY | 2022-06-09 08:56 | XMS_ITS | Continuity of Care Document ---
:1950 Author Organization [facility] Address [address] [place] [address] Drive [address] [place] [address]- Care Team Providers Name Role Phone Ranjeet Rushing MD Primary Care Physician [facility] Date[facility]): 01/10/21 - 02/09/21 [facility] [address] [place], [place] [address] Allergies, Adverse Reactions, Alerts Substance [...] 07/19/08 Given 1Result Comment: [05/28/2017] [facility]: [id number] History: [id number] Note: VIS GIVEN-DATED Admin Note: vis ivwnm7Wnyqh Note: VIS gygcm8Fphvk Note: VIS-[id number] [place] [facility] [id number] History: [facility] CI7Suuids Comment: [10/17/2015] PER NICO AT [id number] Note: VIS VETSO61Ncuvi Note: VIS GIVEN Medications 12 inch Grab Bars 12 inch Grab Bars, See Instructions, # 2 each, Refills 0, Tot. Refills 0, Maintenance, Grab bars : Length 12inches Use as directed DX Unsteady Gait ICD10 R26.81 HT: 5'3 Weight 162lbs Length of need Lifetime, 07/07/20 11:45:00 EST, Supply Start Date: 07/07/20 Status: OrderedADMIT [facility] ADMIT TO [facility], See Instructions, # 1 each, Refills 0, Tot. Refills 0, Maintenance, FAX [phone] ADMIT TO SENIOR LIVING, PT, OT. OUTPATIENT PHYSICAL THERAPIST ASSISTANT AND SPORTS AGENT IF NEEDED DIAGNOSIS: Cervical radiculopathy at C6 [...] 6 Refills, Maintenance, 01/09/21 16:07:00 EDT, [facility] ST[facility] [address], 160, cm, 12/25/20 14:20:00 EDT, Height, 77.5, kg, 10/05/20 14:31:00 EST, Dry Weight Start Date: 01/09/21 Status: Orderedallopurinol 300 mg oral tablet 300 mg, 1, tablet, By Mouth, Daily, # 90 tablet, Refills 1, Tot. Refills 1, Maintenance, 01/26/21 12:31:00 EDT, Route to Pharmacy Electronically, [facility]/pharmacy #[id number], 160, cm, 12/25/20 14:20:00 EDT, [...] Refills, Maintenance, 02/08/21 9:52:00 EDT, Tablet, [facility]/pharmacy #0693, 160, cm, 01/25/21 14:11:00 EDT, [...] 9:05:00 EDT, Route to Pharmacy Electronically, [facility]/pharmacy #[id number], 160, cm, 01/25/21 14:11:00 EDT, Height, 77.5, kg, 10/05/20 14:31:00 EST, Dry Weight Start Date: 02/06/21 Stop Date: 08/05/21 Status: OrderedHumira 40 mg subcutaneous solution See Instructions, 40 mg [id number], 0 Refills, Maintenance, 10/23/20 13:46:00 EST, Partial fill upon patient request if the prescription is for a schedule II opioid drug. Start Date: 10/23/20 Status: OrderedLyrica 150 mg oral capsule 1 capsule = 150 mg, By Mouth, 2 times a day, DOSAGE INCREASE, # 60 capsule, 3 Refills, Maintenance, 01/23/21 14:56:00 EDT, Capsule, [facility]/pharmacy #[id number], 160, cm, 01/14/21 11:46:00 EDT, Height, 77.5, kg,10/05/20 14:31:00 EST, Dry Weight Start Date: 01/23/21 Status: Orderedmagnesium oxide 400 mg (240 mg elemental magnesium) oral tablet 1 tablet, By Mouth, Daily, # 90 tablet, 0 Refills, Acute, 09/20/20 12:20:00 EST, [facility] ST[facility] [address], 90, TAKE 1 TABLET BY MOUTH DAILY, [...] if th... Start Date: 08/30/20 Status: OrderedPen [place], 31 G x 5 mm BD [...] 15:06:00 EDT, Route to Pharmacy Electronically, [facility]/pharmacy #[id number], 160, cm, 12/25/20 14:20:00 EDT, [...] Refills, Soft Stop, 01/25/21 16:45:00 EDT, [facility]/pharmacy #[id number], 160, cm, 01/25/21 14:11:00 EDT, [...] Osteoporosis(Confirmed) Active *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 50-70% bilaterally.3Patient's regional account director is [facility] and patient sees Dr. Gume Mart Social History Social History Type Response Tobacco Other: last cigarette 0. Sex
--- OUTSIDE RECORDS SUMMARY | 2022-06-09 08:56 | XMS_ITS | Continuity of Care Document ---
:1950 Author Organization [facility] Adult Address [address] [place] [address]- Care Team Providers Name Role Phone Ranjeet Rushing MD Primary Care Physician [facility]): 02/01[facility]21 - 03/03/21 [facility] [address] [place] [address]- Allergies, Adverse Reactions, Alerts Substance Reaction Severity [...] (PPV23) (oldterm)11 07/19/08 Given 1Result Comment: [05/28/2017] [facility]: [id number] History: XMX0Uutcg Note: VIS GIVEN-DATED Admin Note: vis oxolk1Piavz Note: VIS xexnm4Zvumv Note: VIS-ZDCWG9Kthknwaw [place] [facility] [place] [id number] History: [facility] [id number] Comment: [10/17/2015] PER NICO AT [id number] Note: VIS SPYNX21Qrqwq Note: VIS GIVEN Medications 12 inch Grab Bars 12 inch Grab Bars, See Instructions, # 2 each, Refills 0, Tot. Refills 0, Maintenance, Grab bars : Length 12inches Use as directed DX Unsteady Gait ICD10 R26.81 HT: 5'3 Weight 162lbs Length of need Lifetime, 07/07/20 11:45:00 EST, Supply Start Date: 07/07/20 Status: OrderedADMIT TO [facility] ADMIT TO [facility], See Instructions, # 1 each, Refills 0, Tot. Refills 0, Maintenance, FAX [phone] ADMIT TO PENITENTIARY, PT, OT. QUILLER TENDER AND CANDY DECORATOR IF NEEDED DIAGNOSIS: Cervical radiculopathy at C6 [...] 6 Refills, Maintenance, 01/09/21 16:07:00 EDT, [facility] [address], 160, cm, 12/25/20 14:20:00 EDT, Height, 77.5, kg, 10/05/20 14:31:00 EST, Dry Weight Start Date: 01/09/21 Status: Orderedallopurinol 300 mg oral tablet 300 mg, 1, tablet, By Mouth, Daily, # 90 tablet, Refills 1, Tot. Refills 1, Maintenance, 01/26/21 12:31:00 EDT, Route to Pharmacy Electronically, [facility]/pharmacy #0693, 160, cm, 12/25/20 14:20:00 EDT, Height, [...] 03/23/21 16:45:00 EDT, 02/16/21 16:39:00 EDT, Cream, [facility]/pharmacy #0693, Partial fill upon patientrequest if the [...] 02/08/21 9:52:00 EDT, Tablet, [facility]/pharmacy #0693, 160, cm, 01/25/21 14:11:00 EDT, Height, [...] Electronically, [facility]/pharmacy #0693, 160, cm, 01/25/21 14:11:00 EDT, Height, 77.5, kg, 10/05/20 14:31:00 EST, Dry Weight Start Date: 02/06/21 Stop Date: 08/05/21 Status: OrderedHumira 40 mg subcutaneous solution See Instructions, 40 mg [id number], 0 Refills, Maintenance, 10/23/20 13:46:00 EST, Partial fill upon patient request if the prescription is for a schedule II opioid drug. Start Date: 10/23/20 Status: OrderedLyrica 150 mg oral capsule 1 capsule = 150 mg, By Mouth, 2 times a day, DOSAGE INCREASE, # 60 capsule, 3 Refills, Maintenance, 01/23/21 14:56:00 EDT, Capsule, [facility]/pharmacy #0693, 160, cm, 01/14/21 11:46:00 EDT, Height, 77.5, kg,10/05/20 14:31:00 EST, Dry Weight Start Date: 01/23/21 Status: Orderedmagnesium oxide 400 mg (240 mg elemental magnesium) oral tablet 1 tablet, By Mouth, Daily, # 90 tablet, 0 Refills, Acute, 09/20/20 12:20:00 EST, [facility] [address], 90, TAKE 1 TABLET BY MOUTH DAILY, [...] if th... Start Date: 08/30/20 Status: OrderedPen [place], 31 G x 5 mm BD Ultra Fine III See Instructions, # 200 each, Refills 5, Tot. Refills 5, Maintenance, To inject insulin BID for DM II E11.9 PER RAJNI EMERY VEGETABLE GRADER-C, 10/06/20 10:54:00 EST, SHORT, Compound, 160, cm, [...] Electronically, [facility]/pharmacy #[id number], 160, cm, 12/25/20 14:20:00 EDT, Height, 77.5, kg, 10/05/20 14:31:00 EST, Start Date: 01/09/21 Status: Orderedspironolactone 100 mg oral tablet 100 mg, 1, tablet, By Mouth, Daily, # 90 tablet, Refills 0, Tot. Refills 0, Maintenance, 01/23/21 14:56:00 EDT, Route to Pharmacy Electronically, [facility]/pharmacy #[id number], Partial fill upon patient request if the prescription is for a schedule II opioid carlene Start Date: 01/23/21 Stop Date: 04/23/21 Status: OrderedtraMADol 50 mg oral tablet See Instructions, PRN Pain , Severe, 1-2 tablets by mouth every 6 hours, # 240 tablet, 1 Refills, Soft Stop, 01/25/21 16:45:00 EDT, [facility]/pharmacy #0693, 160, cm, 01/25/21 14:11:00 EDT, Height, [...] Osteoporosis(Confirmed) Active *[facility] [phone] 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 50-70% bilaterally.3Patient's pan reclaim processor is [facility] and patient sees Dr. Gume Mart Social History Social History Type Response Tobacco Other: last cigarette 0. Sex
--- OUTSIDE RECORDS SUMMARY | 2022-06-09 08:56 | XMS_ITS | Continuity of Care Document ---
:1950 Author Organization [address], [address] [place] [address]- Care Team Providers Name Role Phone Ranjeet Rushing MD Primary Care Physician [facility]): [facility]21 - 11/14/[address], [address] [place], [place] [address] Attending Physician: AdmtrEvans Admitting Physician: Admtr, Evans Referring Physician: Admtr, [...] 07/19/08 Given 1Result Comment: [05/28/2017] [facility]: [id number] History: YQI7Gompy Note: VIS GIVEN-DATED Admin Note: vis oxkzj5Qdnyo Note: VIS iywax7Scxow Note: VIS-NAUXE4Elxxfrrn History: [facility] AN4Jbkirokv History: [facility] MI2Vtnynr Comment: [10/17/2015] PER NICO AT [id number] Note: VIS GEROL70Stjaz Note: VIS GIVEN Medications 12 inch Grab [...] 11 Refills, Maintenance, 05/05/20 14:02:00 EDT, Powder, [facility]/pharmacy #0693, 2 puffs Inhalation Every 6 hours,PRN:as needed, 160.02, cm, 05/05/20 13:43:00 EDT, Height, 73.6, kg, 04/18/20 10:1... Start Date: 05/05/20 Status: Orderedalendronate 70 mg oral tablet 1 tablet, By Mouth, Every week, # 12 tablet, 6 Refills, Maintenance, 01/09/21 16:07:00 EDT, [facility], 160, cm, 12/25/20 14:20:00 EDT, Height, 77.5, kg, 10/05/20 14:31:00 EST, Dry Weight Start Date: 01/09/21 Status: Orderedallopurinol 300 mg oral tablet 1, tablet, By Mouth, Daily, # 90 tablet, Refills 1, Route to Pharmacy Electronically, [facility], 160, cm, 06/19/21 13:57:00 EDT, Height, 77.27, [...] tablet, 5 Refills, Maintenance, 08/30/21 7:54:00 EST, [facility]/pharmacy #0693, 160, cm, 07/26/21 10:45:00 EST, [...] 1 Refills, Maintenance, 09/18/21 11:52:00 EST, Tablet, [facility]/pharmacy #0693, 160, cm, 09/14/21 11:51:00 EST, [...] tablet, 1 Refills, Maintenance,11/13/21 15:13:00 EDT, Tablet, [facility]/pharmacy #0693, Partial fill upon patient request [...] 1, Route to Pharmacy Electronically, [facility], 160, cm, 10/15/21 15:03:00 EST, Height, 75, kg, 09/14/21 11:51:00 EST, Dry Weight Start Date: 10/16/21 Status: OrderedLyrica 150 mg oral capsule 1 capsule = 150 mg, By Mouth, 2 times a day, DOSAGE INCREASE, # 60 capsule, 3 Refills, Maintenance, 11/12/21 16:27:00 EDT, Capsule, [facility]/pharmacy #0693, 160, cm, 11/01/21 15:12:00 EST, Height, 74.8, kg,11/01/21 15:05:00 EST, Dry Weight Start Date: 11/12/21 Status: Orderedmagnesium oxide 400 mg (240 mg elemental magnesium) oral tablet 1 tablet, By Mouth, Daily, # 90 tablet, 0 Refills, Acute, 09/20/20 12:20:00 EST, [facility], 90, TAKE 1 TABLET BY MOUTH DAILY, 160, cm, 09/12/20 14:03:00 EST, Height, 71.3, kg, 08/08/20 7:00:00 EST, Dry Weight Start Date: 09/20/20 Status: Orderedmagnesium oxide 400 mg oral tablet 1 tablet = 400 mg, By Mouth, Daily, # 100 tablet, 2 Refills, Maintenance, 06/05/21 11:32:00 EDT, Tablet, [facility]/pharmacy #0693, Partial fill upon patient request if the prescription is for a schedule II opioid drug., 160, cm, 05/21/21 11:03:00 EDT, Heigh... Start Date: 06/05/21 Status: OrderedMelatonin 3 mg oral tablet 1 tablet = 3 mg, By Mouth, Daily at bedtime, PRN for insomnia, [facility], # 90 tablet, 3 Refills, Maintenance, 10/17/21 12:02:00 EST, Tablet, [facility]/pharmacy #0693, 1 tablet By Mouth Daily [...] Refills, Maintenance, 12/09/19 16:05:00 EDT Start Date: 4/16/20 Status: OrderedNovoLOG FlexPen 100 units/mL subcutaneous solution See Instructions, Subcutaneous injection TID before meals per sliding scale: 150-200: 6 units 201-250: 8 units 251-300: 10 units 301-350: 12 units 351-400: 14 units before breakfast, # 30 mL, 6 Refills, Maintenance, 06/11/21 16:40:00 EDT, Injec... Start Date: 06/11/21 Status: OrderedPen [place], 31 G x 5 mm BD Ultra [...] 09/15/21 17:53:00 EST, Route to Pharmacy Electronically, [facility]/pharmacy #[id number], 160, cm, 09/14/21 11:51:00 EST, [...] 07/23/21 13:10:00 EST, Route to Pharmacy Electronically, [facility]/pharmacy #[id number], Partial fill upon patient request if the prescription is for a schedule II opioid thomas... Start Date: 07/23/21 Stop Date: 01/19/22 Status: OrderedtraMADol 50 mg oral tablet See Instructions, TAKE 1-2 TABLETS BY MOUTH EVERY 6 HOURS SCHEDULE FOLLOW VISIT, NEEDED FOR PAIN,# 240 tablet, 5 Refills, Maintenance, 05/31/21 9:52:00 EDT, [facility]/pharmacy #0693, 160, cm, 05/21/21 11:03:00 EDT, [...] 3 Refills, Maintenance, 04/19/21 11:35:00 EDT, Powder, [facility]/pharmacy #0693, Partial fill upon patient request [...] # 9 Unknown, 5 Refills, [facility], 160, cm, 09/07/21 15:03:00 EST, Height, 77.27, [...] cervical(Confirmed) Osteoporosis(Confirmed) Active *[facility] [phone] 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 50-70% bilaterally.3Patient's outside deliverer is [facility] and patient sees Dr. Gume Mart Social History Social History Type Response Smoking Status Former smoker, quit more mark n 30 days ago entered on: 09/28/21 Sex
--- OUTSIDE RECORDS SUMMARY | 2022-06-09 08:56 | XMS_ITS | Continuity of Care Document ---
:1950 Author Organization [facility] Address [address] [place] [address]- Care Team Providers Name Role Phone Ranjeet Del Rosario MD Primary Care Physician [facility] 09[facility]19 - 09/21/[address] [address]- [facility] Attending Physician: Ranjeet Del Rosario MD Allergies, [...] 1Result Comment: [05/28/2017] [facility]: [id number] History: BWU4Smcrd Note: VIS GIVEN-DATED Admin Note: vis dbwld0Zsdub Note: VIS doamj6Vgpxx Note: VIS-XXHVW0Ukrickyc History: [facility] XP5Mqpuplop History: [facility] Gray Comment: [10/17/2015] PER NICO AT SYZ15Bgntc Note: VIS QLXSS89Qmvfr Note: VIS GIVEN Medications albuterol 90 mcg/inh [...] TAKE 1 TABLET BY MOUTH EVERY DAY, [facility]/pharmacy #0693 Start Date: 06/09/19 Status: [...] TAKE 1 CAPSULE BY MOUTH EVERY DAY, [facility]/pharmacy #0693 Start Date: 04/20/19 Status: [...] each, 0 Refills, Maintenance, 01/01/19 14:36:12 EDT, [place], 2 sprays Nares, Both Daily in AM [...] mg, By Mouth, Daily, PER RAJNI EMERY SENIOR REGULATORY AFFAIRS SPECIALIST-C, # 90 tablet, 3 Refills, Maintenance, 07/20/19 [...] 0 Refills, Maintenance, 09/16/19 13:26:00 EST, Tablet, [facility], 160.02, cm, 09/06/19 12:51:00 EST, Height, [...] Call PCP... Start Date: 10/29/17 Status: OrderedPen [place], 31 G x 5 mm BD Ultra [...] 07/20/19 16:14:12 EST, Route to Pharmacy Electronically, [id number], [facility]/pharmacy #[id number] Start Date: 07/20/19 Status: Orderedspironolactone 100 mg oral tablet See Instructions, # 30 tablet, Refills 5 Tot. Refills 5, TAKE 1 TABLET BY MOUTH EVERY DAY, [facility]/pharmacy #0693 Start Date: 06/23/19 Status: OrderedtraMADol 50 mg oral tablet See Instructions, TAKE 1 TO 2 TABLETS BY MOUTH EVERY 6 HOURS, # 240 tablet, 1 Refills, Soft Stop, 08/23/19 16:39:00 EST, [facility]/pharmacy #0693, 160.02, cm, 08/16/19 12:59:00 [...] 74 UNITS DAILY, MAX DOSE 140 UNITS, [facility]/pharmacy #0693 Start Date: 04/20/19 Status: Orderedvarenicline 1mg tablet 1 tablet = 1 mg, By Mouth, 2 times a day, # 60 tablet, 0 Refills, Maintenance, 09/14/19 8:24:00 EST,Tablet, [facility]/pharmacy #0693, 160.02, cm, 09/06/19 12:51:00 [...] Active cervical(Confirmed) Osteoporosis(Confirmed) Active *[facility] [phone] 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 50-70% bilaterally.3Patient's cafeteria clerk is [facility] and patient sees Dr. Gume Mart Social History Social History Type Response Smoking Status Current some day smoker; Typ e: Cigarettes; Other: less than 1/2 pack a day; Tobacco use times per day: 1/2 pack a day; entered on: 02/19/17 Sex
--- OUTSIDE RECORDS SUMMARY | 2022-06-09 08:56 | XMS_ITS | Continuity of Care Document ---
:1950 Author Organization [facility] Adult Address [address] [place] [address]- Care Team Providers Name Role Phone Ranjeet Rushing MD Primary Care Physician Encounter [facility] Date(s): 04/16/22 - 05/16/22 [facility] Adult [address] [place] [address]- Allergies, Adverse Reactions, Alerts Substance Reaction Severity [...] 07/19/08 Given 1Result Comment: [05/28/2017] [facility]: [id number] History: [id number] Note: VIS GIVEN-DATED Admin Note: vis [id number] Note: VIS gyyke1Geaqf Note: VIS-KYKTF9Ehsfrgst History: [facility] OZ0Allkrjtj History: [facility] [id number] Comment: [10/17/2015] PER NICO AT [id number] Note: VIS [id number] Note: VIS GIVEN Medications 12 inch Grab [...] Refills, Maintenance, 05/07/22 16:00:00 EDT, Powder, [facility]/pharmacy #0693, 2 puffs Inhalation Every 6 hours,PRN:as needed, 160, cm, 04/24/22 8:34:00 EDT, Height, 72.7, kg, 04/24/22 8:34:00... Start Date: 05/07/22 Status: Orderedalendronate 70 mg oral tablet 1 tablet, By Mouth, Every week, # 12 tablet, 1 Refills, [facility] ST[facility] 02131, 160, cm, 01/17/22 14:38:00 EDT, Height, 74.8, kg, 11/01/21 15:05:00 EST, Dry Weight Start Date: 01/30/22 Status: Orderedallopurinol 300 mg oral tablet 1, tablet, By Mouth, Daily, # 90 tablet, Refills 0, Route to Pharmacy Electronically, [facility], 160, cm, 02/21/22 15:11:00 EDT, Height, 74.8, kg, 11/01/21 15:05:00 EST, Dry Weight Start Date: 03/27/22 Status: OrderedBACK BRACE BACK BRACE, See Instructions, # 1 each, Refills 0, Tot. Refills 0, Maintenance, DX BACK PAIN M54.9 DANTE LIFETIME HT 5'3 WT 182 LB, 07/23/16 14:35:27, Compound Start Date: 07/23/16 Status: OrderedBD UF SHORT PEN NEEDLE [id number] BD UF SHORT PEN NEEDLE [id number], See Instructions, # 200 Unknown, 5 Refills, USE TO INJECT INSULIN TWICE A DAY, 160, cm, 11/27/21 14:08:00 EDT, Height, 74.8, kg, 11/01/21 15:05:00 EST, Dry Weight Start Date: 11/30/21 Status: OrderedbuPROPion 300 mg/24 hours (XL) oral tablet, extended release 1 tablet, By Mouth, Daily, # 30 tablet, 5 Refills, [facility], 160, cm, 02/04/22 13:44:00 EDT, Height, 74.8, [...] OrderedCVS VITAMIN D3 25 MCG SOFTGEL [facility] VITAMIN D3 25 MCG SOFTGEL, 1, capsule, By Mouth, Daily, # 90 capsule, 1 Refills, 160, cm, 10/16/21 14:42:00 EST, Height, 75, kg, 09/14/21 11:51:00 EST, Dry Weight Start Date: 10/17/21 Status: Orderedcyanocobalamin 500 mcg oral tablet 1 tablet = 500 mcg, By Mouth, Daily, # 90 tablet, 3 Refills, Maintenance, 04/12/22 16:02:00 EDT, Tablet, [facility]/pharmacy #0693, 160, cm, 04/10/22 14:31:00 EDT, [...] 1 Refills, Maintenance, 05/06/22 9:31:00 EDT, [facility] 44638, 160, cm, 04/24/22 8:34:00 EDT, Height, 72.7, [...] 1, Route to Pharmacy Electronically, [facility], 160, cm, 02/21/22 15:11:00 EDT, Height, 74.8, [...] Maintenance, 03/26/22 10:58:00 EDT, Capsule, [facility]/pharmacy #0693, 160, cm, 02/21/22 15:11:00 EDT, Height, 74.8, kg,11/01/21 15:05:00 EST, Dry Weight Start Date: 03/26/22 Status: Orderedmagnesium oxide 400 mg oral tablet 1 tablet, By Mouth, Daily, # 100 tablet, 2 Refills, [facility], 160, cm, 02/21/22 15:11:00 EDT,Height, 74.8, kg, 11/01/21 15:05:00 EST, Dry Weight Start Date: 03/28/22 Status: OrderedMelatonin 3 mg oral tablet 1 tablet = 3 mg, By Mouth, Daily at bedtime, PRN for insomnia, [facility], # 90 tablet, 3 Refills, Maintenance, 10/17/21 12:02:00 EST, Tablet, [facility]/pharmacy #0693, 1 tablet By Mouth [...] EDT, Injec... Start Date: 06/11/21 Status: OrderedPen [place], 31 G x 5 mm BD Ultra [...] Refills, Maintenance, 04/24/22 17:19:00EDT, Tablet, [facility]/pharmacy #0693, Partial fill upon patient [...] EST, Route to Pharmacy Electronically, [facility]/pharmacy #0693, 160, cm, 09/14/21 11:51:00 EST, [...] 1, Route to Pharmacy Electronically, [facility] ST[facility] 79211, 160, cm, 11/27/21 14:08:00 EDT, Height, 74.8, kg, 11/01/21 15:05:00 EST, Dry Weight Start Date: 01/11/22 Status: OrderedtraMADol 50 mg oral tablet See Instructions, TAKE 1-2 TABLETS BY MOUTH EVERY 6 HOURS SCHEDULE FOLLOW VISIT, NEEDED FOR PAIN,# 240 tablet, 5 Refills, Maintenance, 01/17/22 11:33:00 EDT, [facility]/pharmacy #0693, 160, cm, 11/27/21 14:08:00 EDT, [...] Refills, Maintenance, 05/07/22 15:49:00 EDT, [facility], 160, cm, 04/24/22 8:34:00 EDT, Height, 72.7, [...] Osteoporosis(Confirmed) Active *[facility] [phone] 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 50-70% bilaterally.3Patient's high school librarian is [facility] and patient sees Dr. Gume Mart Social History Social History Type Response Smoking Status Former smoker, quit more mark n 30 days ago entered on: 09/28/21 Sex Care Team PersonnelName: Kristan SUTTON, Ranjeet Beatty Address: [address] [place] [address] Adult [place], [place] [address]
--- OUTSIDE RECORDS SUMMARY | 2022-06-09 08:56 | XMS_ITS | Continuity of Care Document ---
:1950 Author Organization [facility] Adult Address [address] [place] [address]- Care Team Providers Name Role Phone Ranjeet Rushing MD Primary Care Physician Encounter [facility] Date(s): 03/14/20 - 03/21/20 [facility] Adult [address] [place] [address]- [facility] Encounter Diagnosis Constipation (Discharge Diagnosis) - 03/14/20 Attending Physician: Matilda LOZADA, Chari Santos Allergies, [...] (PPV23) (oldterm)11 07/19/08 Given 1Result Comment: [05/28/2017] [facility]: [id number] History: [id number] Note: VIS GIVEN-DATED Admin Note: vis [id number] Note: VIS [id number] Note: VIS-WYROU7Eylycwwy History: [facility] [id number] History: [facility] Gray Comment: [10/17/2015] PER NICO AT [id number] Note: VIS [id number] Note: VIS GIVEN Medications albuterol 90 mcg/inh inhalation powder 2 puffs, Inhalation, Every 6 hours, PRN as needed, # 1 each, 11 Refills, Maintenance, 12/29/18 9:38:36 EDT, Powder, 2 puffs Inhalation Every 6 hours,PRN:as needed Start Date: 12/29/18 Status: Orderedalendronate 70 mg oral tablet 1 tablet, By Mouth, Every week, # 12 tablet, 0 Refills, Maintenance, 03/17/20 11:27:00 EDT, [facility] 00198, 160.02, cm, 03/14/20 13:30:00 EDT, Height, 81.6, kg, 07/27/19 14:52:00 EST, Dry Weight Start Date: 03/17/20 Status: Orderedallopurinol 300 mg oral tablet 1, tablet, By Mouth, Daily, # 90 tablet, Refills 1, Tot. Refills 0, Maintenance, 11/08/19 12:00:00 EDT, Route to Pharmacy Electronically, [facility] 91932, 160.02, cm, 11/02/19 15:34:00 EDT, Height, 81.6, [...] TAKE 1 CAPSULE BY MOUTH EVERY DAY, [facility]/pharmacy #0693 Start Date: 04/20/19 Status: Orderedcyanocobalamin 500 mcg oral tablet 1 tablet = 500 mcg, By Mouth, Daily, # 90 tablet, 0 Refills, Maintenance, 02/11/20 13:33:00 EDT, Tablet, [facility]/pharmacy #0693, 160.02, cm, 02/11/20 13:03:00 EDT, Height, [...] 11/08/19 11:59:00 EDT, Route to Pharmacy Electronically, [facility] 34039, 160.02, cm, 11/02/19 15:34:00 EDT, Height, 81.6, kg, 07/27/19 14:52:00 EST, Dry Weight Start Date: 11/08/19 Status: Orderedgabapentin 300 mg oral capsule 300 mg, 1, capsule, By Mouth, 3 times a day, # 90 capsule, Refills 5, Tot. Refills 5, Maintenance, 11/02/19 16:04:00 EDT, Route to Pharmacy Electronically, [facility]/pharmacy #0693, 160.02, cm, 11/02/19 15:34:00 EDT, Height, [...] 3 Refills, Maintenance, 01/07/20 16:00:00 EDT, Tablet, [facility]/pharmacy #0693, 1 tablet By Mouth Daily at [...] each, 5 Refills, Maintenance, 02/21/20 11:53:00 EDT, [facility]/pharmacy #0693, 301-350: 12 units, 351-400: 14 units, 401-450: 1... Start Date: 02/21/20 Status: OrderedPen [place], 31 G x 5 mm BD Ultra [...] 07/20/19 16:14:12 EST, Route to Pharmacy Electronically, [id number], [facility]/pharmacy #0693 Start Date: 07/20/19 Status: Orderedspironolactone 100 mg oral tablet 1, tablet, By Mouth, Daily, # 30 tablet, Refills 5, Tot. Refills 0, Maintenance, 12/07/19 13:00:00 EDT, Route to Pharmacy Electronically, [facility] 16148, 160.02, cm, 11/02/19 15:34:00 EDT, Height, 81.6, kg, 07/27/19 14:52:00 EST, Dry Weight Start Date: 12/07/19 Status: OrderedtraMADol 50 mg oral tablet See Instructions, PRN Pain , Severe, 1-2 tablets by mouth every 6 hours, # 240 tablet, 1 Refills, Soft Stop, 03/14/20 14:29:00 EDT, [facility]/pharmacy #0693, 160.02, cm, 03/14/20 13:30:00 EDT, Height, [...] 5 Refills, Soft Stop, 12/16/19 15:45:00 EDT, [facility]/pharmacy #0693, 160.02, cm, 11/02/19 15:34:00 EDT, Height, 81.6, kg, 07/27/19 14:52:00 EST, Dry Weight Start Date: 12/16/19 Status: OrderedVictoza 18 mg/3 mL subcutaneous solution See Instructions, INJECT 1.8 MG SUBCUTANEOUS DAILY, # 9 Unknown, 0 Refills, Maintenance, 03/03/20 15:42:00 EDT, [facility]/pharmacy #0693, 160.02, cm, 02/11/20 13:03:00 EDT, Height, 81.6, kg, 07/27/19 14:52:00 EST, Dry Weight Start Date: 03/03/20 Status: OrderedVitamin B12 500 mcg oral tablet 1 tablet = 500 mcg, By Mouth, Daily, # 30 tablet, 1 Refills, Maintenance, 02/07/20 8:53:00 EDT, Tablet, [facility]/pharmacy #0693, 160.02, cm, 01/07/20 15:07:00 EDT, Height, [...] Refills, Maintenance, 12/09/19 16:12:00 EDT, ER Tablet, [facility]/pharmacy #0693, 160.02, cm, 11/02/19 15:34:00 EDT, Height, [...] Osteoporosis(Confirmed) Active *[facility] [phone] 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 50-70% bilaterally.3Patient's sales floor team leader is [facility] and patient sees Dr. Gume Mart Diagnosis Diagnosis Type Effective Dates Health Status Clinical In formant Service Constipation Discharge 03/14/20 Diagnosis Vital Signs Most recent to oldest [Reference Range]: 1 Height 160.02 cm (03/14/20 1:30 PM) Social History Social History Type Response Smoking Status Current some day smoker; Typ e: Cigarettes; Other: less than 1/2 pack a day; Tobacco use times per day: 1/2 pack a day; entered on: 02/19/17 Sex
--- OUTSIDE RECORDS SUMMARY | 2022-06-09 08:56 | XMS_ITS | Continuity of Care Document ---
:1950 Author Organization [facility] Address [address] [place] [address] Drive [address] [place] [address]- Care Team Providers Name Role Phone Ranjeet Rushing MD Primary Care Physician Encounter [facility] Date(s): 07/30/21 - 08/29/[address] [place], [place] [address] Allergies, Adverse Reactions, [...] (PPV23) (oldterm)11 07/19/08 Given 1Result Comment: [05/28/2017] [facility]: [id number] History: [id number] Note: VIS GIVEN-DATED Admin Note: vis [id number] Note: VIS [id number] Note: VIS-IEMLQ3Ueglxqqm History: [facility] [id number] History: [facility] Isaac Comment: [10/17/2015] PER NICO AT [id number] Note: VIS [id number] Note: VIS GIVEN Medications 12 inch Grab [...] Maintenance, 01/09/21 16:07:00 EDT, [facility] 90298, 160, cm, 12/25/20 14:20:00 EDT, Height, 77.5, kg, 10/05/20 14:31:00 EST, Dry Weight Start Date: 01/09/21 Status: Orderedallopurinol 300 mg oral tablet 1, tablet, By Mouth, Daily, # 90 tablet, Refills 1, Route to Pharmacy Electronically, [facility], 160, cm, 06/19/21 13:57:00 EDT, Height, 77.27, [...] tablet, 5 Refills, Maintenance, 03/12/21 10:51:00 EDT, [facility] 30[facility], 160, cm, 02/27/21 13:50:00 EDT, Height, 79.6, [...] 3 Refills, Maintenance, 07/09/21 14:12:00 EST, Capsule, [facility]/pharmacy #0693, 160, cm, 06/19/21 13:57:00 EDT, Height, 77.27, kg, 03/24/21 20:58:00 EDT, Dry Weight Start Date: 07/09/21 Status: Orderedmagnesium oxide 400 mg (240 mg elemental magnesium) oral tablet 1 tablet, By Mouth, Daily, # 90 tablet, 0 Refills, Acute, 09/20/20 12:20:00 EST, [facility] 98138, 90, TAKE 1 TABLET BY MOUTH DAILY, 160, cm, 09/12/20 14:03:00 EST, Height, 71.3, kg, 08/08/20 7:00:00 EST, Dry Weight Start Date: 09/20/20 Status: Orderedmagnesium oxide 400 mg oral tablet 1 tablet = 400 mg, By Mouth, Daily, # 100 tablet, 2 Refills, Maintenance, 06/05/21 11:32:00 EDT, Tablet, [facility]/pharmacy #0693, Partial fill [...] EDT, Injec... Start Date: 06/11/21 Status: OrderedPen [place], 31 G x 5 mm BD Ultra [...] EDT, Route to Pharmacy Electronically, [facility]/pharmacy #0635, 160, cm, 12/25/20 14:20:00 EDT, Height, 77.5, kg, 10/05/20 14:31:00 EST, Start Date: 01/09/21 Status: Orderedspironolactone 100 mg oral tablet 100 mg, 1, tablet, By Mouth, Daily, # 90 tablet, Refills 1, Tot. Refills 1, Maintenance, 07/23/21 13:10:00 EST, Route to Pharmacy Electronically, [facility]/pharmacy #0693, Partial fill upon patient request if the prescription is for a schedule II opioid geovanny. 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 50-70% bilaterally.3Patient's network announcer is [place] [facility] and patient sees Dr. Gume Mart Social History Social History Type Response Tobacco Other: last cigarette 0. Sex
--- OUTSIDE RECORDS SUMMARY | 2022-06-09 08:56 | XMS_ITS | Continuity of Care Document ---
:1950 Author Organization [facility] Address [address] [place] [address]- Care Team Providers Name Role Phone Ranjeet Rushing MD Primary Care Physician Encounter [facility] Date(s): 04/15/22 - 05/15/[address] [address] Attending Physician: AdmEvans blackwood Admitting Physician: Admtr, Ye8 Referring Physician: Admtr, Ar8 Allergies, Adverse Reactions, [...] (PPV23) (oldterm)11 07/19/08 Given 1Result Comment: [05/28/2017] [facility]: [id number] History: [id number] Note: VIS GIVEN-DATED Admin Note: vis [id number] Note: VIS [id number] Note: VIS-[id number] History: [facility] [id number] History: [facility] [id number] Comment: [10/17/2015] PER NICO AT [id number] Note: VIS [id number] Note: VIS GIVEN Medications 12 inch Grab [...] Refills, Maintenance, 05/07/22 16:00:00 EDT, Powder, [facility]/pharmacy #0693, 2 puffs Inhalation Every 6 hours,PRN:as needed, 160, cm, 04/24/22 8:34:00 EDT, Height, 72.7, kg, 04/24/22 8:34:00... Start Date: 05/07/22 Status: Orderedalendronate 70 mg oral tablet 1 tablet, By Mouth, Every week, # 12 tablet, 1 Refills, [facility] 00045, 160, cm, 01/17/22 14:38:00 EDT, Height, 74.8, kg, 11/01/21 15:05:00 EST, Dry Weight Start Date: 01/30/22 Status: Orderedallopurinol 300 mg oral tablet 1, tablet, By Mouth, Daily, # 90 tablet, Refills 0, Route to Pharmacy Electronically, [facility] 42136, 160, cm, 02/21/22 15:11:00 EDT, Height, 74.8, kg, 11/01/21 15:05:00 EST, Dry Weight Start Date: 03/27/22 Status: OrderedBACK BRACE BACK BRACE, See Instructions, # 1 each, Refills 0, Tot. Refills 0, Maintenance, DX BACK PAIN M54.9 DANTE LIFETIME HT 5'3 WT 182 LB, 07/23/16 14:35:27, Compound Start Date: 07/23/16 Status: OrderedBD UF SHORT PEN NEEDLE [id number] BD UF SHORT PEN NEEDLE [id number], See Instructions, # 200 Unknown, 5 Refills, USE TO INJECT INSULIN TWICE A DAY, 160, cm, 11/27/21 14:08:00 EDT, Height, 74.8, kg, 11/01/21 15:05:00 EST, Dry Weight Start Date: 11/30/21 Status: OrderedbuPROPion 300 mg/24 hours (XL) oral tablet, extended release 1 tablet, By Mouth, Daily, # 30 tablet, 5 Refills, [facility], 160, cm, 02/04/22 13:44:00 EDT, Height, 74.8, [...] Refills, Maintenance, 04/12/22 16:02:00 EDT, Tablet, [facility]/pharmacy #0693, 160, cm, 04/10/22 14:31:00 EDT, [...] 1 Refills, Maintenance, 05/06/22 9:31:00 EDT, [facility] ST[facility] 65114, 160, cm, 04/24/22 8:34:00 EDT, Height, 72.7, [...] 1, Route to Pharmacy Electronically, [facility], 160, cm, 02/21/22 15:11:00 EDT, Height, 74.8, [...] Refills, Maintenance, 03/26/22 10:58:00 EDT, Capsule, [facility]/pharmacy #0693, 160, cm, 02/21/22 15:11:00 EDT, Height, 74.8, kg,11/01/21 15:05:00 EST, Dry Weight Start Date: 03/26/22 Status: Orderedmagnesium oxide 400 mg oral tablet 1 tablet, By Mouth, Daily, # 100 tablet, 2 Refills, [facility], 160, cm, 02/21/22 15:11:00 EDT,Height, 74.8, kg, [...] EDT, Injec... Start Date: 06/11/21 Status: OrderedPen [place], 31 G x 5 mm BD Ultra Fine III See Instructions, # 200 each, Refills 5, Tot. 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, 10/06/20 10:54:00 EST, SHORT, Compound, 160, cm, [...] 0 Refills, Maintenance, 04/24/22 17:19:00EDT, Tablet, [facility]/pharmacy #0693, Partial fill upon patient request [...] 17:53:00 EST, Route to Pharmacy Electronically, [facility]/pharmacy #0693, 160, cm, 09/14/21 11:51:00 EST, [...] Refills 1, Route to Pharmacy Electronically, [facility] 09600, 160, cm, 11/27/21 14:08:00 EDT, Height, 74.8, kg, 11/01/21 15:05:00 EST, Dry Weight Start Date: 01/11/22 Status: OrderedtraMADol 50 mg oral tablet See Instructions, TAKE 1-2 TABLETS BY MOUTH EVERY 6 HOURS SCHEDULE FOLLOW VISIT, NEEDED FOR PAIN,# 240 tablet, 5 Refills, Maintenance, 01/17/22 11:33:00 EDT, [facility]/pharmacy #0693, 160, cm, 11/27/21 14:08:00 EDT, [...] Refills, Soft Stop, 07/26/21 11:05:00 EST, [facility]/pharmacy #0693, 160, cm, 07/26/21 10:45:00 EST, [...] Refills, Maintenance, 05/07/22 15:49:00 EDT, [facility], 160, cm, 04/24/22 8:34:00 EDT, Height, 72.7, [...] Active cervical(Confirmed) Osteoporosis(Confirmed) Active *[facility] [phone] 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 50-70% bilaterally.3Patient's psychiatric orderly [facility] and patient sees Dr. Gume Mart Social History Social History Type Response Smoking Status Former smoker, quit more mark n 30 days ago entered on: 09/28/21 Sex Care Team PersonnelName: Kristan SUTTON, Ranjeet Beatty Address: [address] [place] [address] [place] [address]-
--- OUTSIDE RECORDS SUMMARY | 2022-06-09 08:56 | XMS_ITS | Continuity of Care Document ---
:1950 Author Organization [facility] Address [address] [place] [address]- Care Team Providers Name Role Phone Ranjeet Rsuhing MD Primary Care Physician Encounter [facility] Date(s): 06/22/21 - 07/27/21 [facility] [address] [place] [address]- Attending Physician: Mustapha Vogt MD Admitting Physician: Mustapha Vogt MD Allergies, Adverse Reactions, Alerts Substance Reaction [...] (PPV23) (oldterm)11 07/19/08 Given 1Result Comment: [05/28/2017] [facility]: [id number] History: [id number] Note: VIS GIVEN-DATED Admin Note: vis [id number] Note: VIS sehjs8Yqicp Note: VIS-GHYXX5Wsgimcya History: [facility] GJ8Hohhzuob History: [facility] LF1Mfllgy Comment: [10/17/2015] PER NICO AT [id number] Note: VIS IBYGC26Nslqg Note: VIS GIVEN Medications 12 inch Grab [...] tablet, 6 Refills, Maintenance, 01/09/21 16:07:00 EDT, [facility] ST[facility] 59450, 160, cm, 12/25/20 14:20:00 EDT, Height, 77.5, kg, 10/05/20 14:31:00 EST, Dry Weight Start Date: 01/09/21 Status: Orderedallopurinol 300 mg oral tablet 1, tablet, By Mouth, Daily, # 90 tablet, Refills 1, Route to Pharmacy Electronically, [facility], 160, cm, 06/19/21 13:57:00 EDT, Height, 77.27, [...] Refills, Maintenance, 03/12/21 10:51:00 EDT, [facility], 160, cm, 02/27/21 13:50:00 EDT, Height, 79.6, [...] 1 Refills, Maintenance, 02/08/21 9:52:00 EDT, Tablet, [facility]/pharmacy #0693, 160, cm, 01/25/21 14:11:00 EDT, [...] 02/06/21 9:05:00 EDT, Route to Pharmacy Electronically, [facility]/pharmacy #0693, 160, cm, 01/25/21 14:11:00 EDT, Height, 77.5, kg, 10/05/20 14:31:00 EST, Dry Weight Start Date: 02/06/21 Stop Date: 08/05/21 Status: OrderedLyrica 150 mg oral capsule 1 capsule = 150 mg, By Mouth, 2 times a day, DOSAGE INCREASE, # 60 capsule, 3 Refills, Maintenance, 07/09/21 14:12:00 EST, Capsule, [facility]/pharmacy #0693, 160, cm, 06/19/21 13:57:00 EDT, Height, 77.27, kg, 03/24/21 20:58:00 EDT, Dry Weight Start Date: 07/09/21 Status: Orderedmagnesium oxide 400 mg (240 mg elemental magnesium) oral tablet 1 tablet, By Mouth, Daily, # 90 tablet, 0 Refills, Acute, 09/20/20 12:20:00 EST, [facility], 90, TAKE 1 TABLET BY MOUTH DAILY, [...] EDT, Injec... Start Date: 06/11/21 Status: OrderedPen [place], 31 G x 5 mm BD Ultra [...] 01/09/21 15:06:00 EDT, Route to Pharmacy Electronically, [facility]/pharmacy #[id number], 160, cm, 12/25/20 14:20:00 EDT, [...] 3 Refills, Maintenance, 04/19/21 11:35:00 EDT, Powder, [facility]/pharmacy #[id number], Partial fill upon [...] 11 Refills, Soft Stop, 07/26/21 11:05:00 EST, [facility]/pharmacy #[id number], 160, cm, [...] # 9 Unknown, 2 Refills, [id number], 160, cm, 06/19/21 13:57:00 EDT, Height, 77.27, [...] Osteoporosis(Confirmed) Active *[facility] [phone] 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 50-70% bilaterally.3Patient's inspector tubes is [facility] and patient sees Dr. Gume Mart Social History Social History Type Response Tobacco Other: last cigarette 0. Sex
--- OUTSIDE RECORDS SUMMARY | 2022-06-09 08:56 | XMS_ITS | Continuity of Care Document ---
:1950 Author Organization [facility] [place] Adult Address [address] [place] [address]- Care Team Providers Name Role Phone Ranjeet Rushing MD Primary Care Physician [facility] Date(s): 07/25/21 - 08/24/21 [facility] [place] Adult [address] [place] [address]- Allergies, Adverse Reactions, Alerts Substance Reaction Severity [...] (PPV23) (oldterm)11 07/19/08 Given 1Result Comment: [05/28/2017] [facility]: [id number] History: [id number] Note: VIS GIVEN-DATED Admin Note: vis encic3Wbals Note: VIS [id number] Note: VIS-[id number] History: [facility] [id number] History: [facility] Isaac Comment: [10/17/2015] PER NICO AT [id number] Note: VIS [id number] Note: VIS GIVEN Medications 12 inch Grab [...] 11 Refills, Maintenance, 05/05/20 14:02:00 EDT, Powder, [facility]/pharmacy #0693, 2 puffs Inhalation Every 6 hours,PRN:as needed, 160.02, cm, 05/05/20 13:43:00 EDT, Height, 73.6, kg, 04/18/20 10:1... Start Date: 05/05/20 Status: Orderedalendronate 70 mg oral tablet 1 tablet, By Mouth, Every week, # 12 tablet, 6 Refills, Maintenance, 01/09/21 16:07:00 EDT, [facility], 160, cm, 12/25/20 14:20:00 EDT, Height, 77.5, kg, 10/05/20 14:31:00 EST, Dry Weight Start Date: 01/09/21 Status: Orderedallopurinol 300 mg oral tablet 1, tablet, By Mouth, Daily, # 90 tablet, Refills 1, Route to Pharmacy Electronically, [facility], 160, cm, 06/19/21 13:57:00 EDT, Height, 77.27, [...] tablet, 5 Refills, Maintenance, 03/12/21 10:51:00 EDT, [facility], 160, cm, 02/27/21 13:50:00 EDT, Height, 79.6, [...] 1 Refills, Maintenance, 02/08/21 9:52:00 EDT, Tablet, [facility]/pharmacy #0693, 160, cm, 01/25/21 14:11:00 EDT, Height, [...] 02/06/21 9:05:00 EDT, Route to Pharmacy Electronically, [facility]/pharmacy #0643, 160, cm, 01/25/21 14:11:00 EDT, Height, 77.5, kg, 10/05/20 14:31:00 EST, Dry Weight Start Date: 02/06/21 Stop Date: 08/05/21 Status: OrderedLyrica 150 mg oral capsule 1 capsule = 150 mg, By Mouth, 2 times a day, DOSAGE INCREASE, # 60 capsule, 3 Refills, Maintenance, 07/09/21 14:12:00 EST, Capsule, [facility]/pharmacy #0693, 160, cm, 06/19/21 13:57:00 EDT, Height, 77.27, kg, 03/24/21 20:58:00 EDT, Dry Weight Start Date: 07/09/21 Status: Orderedmagnesium oxide 400 mg (240 mg elemental magnesium) oral tablet 1 tablet, By Mouth, Daily, # 90 tablet, 0 Refills, Acute, 09/20/20 12:20:00 EST, [facility], 90, TAKE 1 TABLET BY MOUTH DAILY, 160, cm, 09/12/20 14:03:00 EST, Height, 71.3, kg, 08/08/20 7:00:00 EST, Dry Weight Start Date: 09/20/20 Status: Orderedmagnesium oxide 400 mg oral tablet 1 tablet = 400 mg, By Mouth, Daily, # 100 tablet, 2 Refills, Maintenance, 06/05/21 11:32:00 EDT, Tablet, [facility]/pharmacy #0693, Partial fill upon patient request if the prescription is for a schedule II opioid drug., 160, cm, 05/21/21 11:03:00 EDT, Heigh... Start Date: 06/05/21 Status: OrderedMelatonin 3 mg oral tablet 1 tablet = 3 mg, By Mouth, Daily at bedtime, PRN for insomnia, [facility], # 90 tablet, 3 Refills, Maintenance, 04/24/20 9:53:00 EDT, Tablet, [facility]/pharmacy #0693, 1 tablet By Mouth Daily at [...] EDT, Injec... Start Date: 06/11/21 Status: OrderedPen [place], 31 G x 5 mm BD Ultra [...] 01/09/21 15:06:00 EDT, Route to Pharmacy Electronically, [facility]/pharmacy #[id number], 160, cm, 12/25/20 14:20:00 EDT, Height, 77.5, kg, 10/05/20 14:31:00 EST, DrJhoan.. Start Date: 01/09/21 Status: Orderedspironolactone 100 mg oral tablet 100 mg, 1, tablet, By Mouth, Daily, # 90 tablet, Refills 1, Tot. Refills 1, Maintenance, 07/23/21 13:10:00 EST, Route to Pharmacy Electronically, [facility]/pharmacy #0693, Partial fill upon patient request if the prescription is for a schedule II opioid thomas... Start Date: 07/23/21 Stop Date: 01/19/22 Status: OrderedtraMADol 50 mg oral tablet See Instructions, TAKE 1-2 TABLETS BY MOUTH EVERY 6 HOURS SCHEDULE FOLLOW VISIT, NEEDED FOR PAIN,# 240 tablet, 5 Refills, Maintenance, 05/31/21 9:52:00 EDT, [facility]/pharmacy #[id number], 160, cm, 05/21/21 11:03:00 EDT, Height, [...] 3 Refills, Maintenance, 04/19/21 11:35:00 EDT, Powder, [facility]/pharmacy #0693, Partial fill upon patient request if [...] 11 Refills, Soft Stop, 07/26/21 11:05:00 EST, [facility]/pharmacy #0693, 160, cm, 07/26/21 10:45:00 EST, Height,77.27, [...] # 9 Unknown, 2 Refills, [facility], 160, cm, 06/19/21 13:57:00 EDT, Height, 77.27, [...] cervical(Confirmed) Osteoporosis(Confirmed) Active *[facility] [phone] 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 50-70% bilaterally.3Patient's casting trucker is [facility] and patient sees Dr. Gume Mart Social History Social History Type Response Tobacco Other: last cigarette 0. Sex
--- OUTSIDE RECORDS SUMMARY | 2022-06-09 08:57 | XMS_ITS | Continuity of Care Document ---
:1950 Author Organization [facility] Adult Address [address] [place] [address]- Care Team Providers Name Role Phone Ranjeet Del Rosario MD Primary Care Physician Encounter [facility] [place] Date(s): 11/02/19 - 11/09/19 [facility] Adult [address] [place] [address]- [facility] Attending Physician: Chari Grey NP Referring Physician: [...] 07/19/08 Given 1Result Comment: [05/28/2017] [facility]: [id number] History: [id number] Note: VIS GIVEN-DATED Admin Note: vis [id number] Note: VIS evyiz7Jijfs Note: VIS-[id number] [place] [facility] [id number] History: [facility] Gray Comment: [10/17/2015] PER NICO AT [id number] Note: VIS [id number] Note: VIS GIVEN Medications albuterol 90 mcg/inh [...] 11/08/19 12:00:00 EDT, Route to Pharmacy Electronically, [facility] STORE [facility]6037, 160.02, cm, 11/02/19 15:34:00 EDT, Height, 81.6, [...] Refills, Acute, 11/08/19 12:00:00 EDT, [facility], 160.02, cm, 11/02/19 15:34:00 EDT, Height, 81.6, [...] each, 0 Refills, Maintenance, 01/01/19 14:36:12 EDT, [place], 2 sprays Nares, Both Daily in AM [...] 11/08/19 11:59:00 EDT, Route to Pharmacy Electronically, [facility], 160.02, cm, 11/02/19 15:34:00 EDT, Height, 81.6, kg, 07/27/19 14:52:00 EST, Dry Weight Start Date: 11/08/19 Status: Orderedgabapentin 300 mg oral capsule 300 mg, 1, capsule, By Mouth, 3 times a day, # 90 capsule, Refills 5, Tot. Refills 5, Maintenance, 11/02/19 16:04:00 EDT, Route to Pharmacy Electronically, [facility]/pharmacy #0693, 160.02, cm, 11/02/19 15:34:00 [...] 1 Refills, Maintenance, 10/15/19 9:53:00 EST, Tablet, [facility]/pharmacy #0693, 160.02, cm, 09/29/19 14:57:00 [...] Call PCP... 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 50-70% bilaterally.3Patient's legal administrative secretary is [facility] and patient sees Dr. Gume Mart Vital Signs Most recent to oldest [Reference Range]: 1 Height 160.02 cm (11/02/19 3:34 PM) Weight 81.3 kg (11/02/19 3:34 PM) Oxygen Saturation [94-100 %] 95 % (11/02/19 3:34 PM) Pulse Rate [55-90 bpm] 95 bpm *H* (11/02/19 3:34 PM) Body Mass Index [18.5-24.99] 31.75 *>HHI* (11/02/19 3:34 PM) Blood Pressure [90-138/55-84 mm Hg] 120/70 mm Hg (11/02/19 3:34 PM) Social History Social History Type Response Smoking Status Current some day smoker; Typ e: Cigarettes; Other: less than 1/2 pack a day; Tobacco use times per day: 1/2 pack a day; entered on: 02/19/17 Sex
--- OUTSIDE RECORDS SUMMARY | 2022-06-09 08:57 | XMS_ITS | Continuity of Care Document ---
:1950 Author Organization [facility] Adult Address [address] [place] [address]- Care Team Providers Name Role Phone Kristan SUTTON, Ranjeet Beatty Primary Care Physician [facility] Date(s): 02/11/20 - 03/12/20 [facility] Adult [address] [place] [address]- [facility] Attending Physician: Evans Brock Admitting Physician: AdmEvans blackwood Referring Physician: AdmtrEvans Allergies, Adverse Reactions, Alerts [...] (PPV23) (oldterm)11 07/19/08 Given 1Result Comment: [05/28/2017] [facility]: [id number] History: [id number] Note: VIS GIVEN-DATED Admin Note: vis [id number] Note: VIS jkfjw4Olujm Note: VIS-[id number] History: [facility] [id number] History: [facility] [id number] Comment: [10/17/2015] PER NICO AT [id number] Note: VIS [id number] Note: VIS GIVEN Medications albuterol 90 mcg/inh inhalation powder 2 puffs, Inhalation, Every 6 hours, PRN as needed, # 1 each, 11 Refills, Maintenance, 12/29/18 9:38:36 EDT, Powder, 2 puffs Inhalation Every 6 hours,PRN:as needed Start Date: 12/29/18 Status: Orderedalendronate 70 mg oral tablet 1 tablet = 70 mg, By Mouth, Every week, # 12 tablet, 0 Refills, Maintenance, 12/29/19 9:01:00 EDT, Tablet, [facility]/pharmacy #0693, 160.02, cm, 11/02/19 15:34:00 EDT, Height, 81.6, kg, 07/27/19 14:52:00 EST, Dry Weight Start Date: 12/29/19 Status: Orderedallopurinol 300 mg oral tablet 1, tablet, By Mouth, Daily, # 90 tablet, Refills 1, Tot. Refills 0, Maintenance, 11/08/19 12:00:00 EDT, Route to Pharmacy Electronically, [facility] 15889, 160.02, cm, 11/02/19 15:34:00 EDT, Height, 81.6, [...] 11/08/19 11:59:00 EDT, Route to Pharmacy Electronically, [facility] 02440, 160.02, cm, 11/02/19 15:34:00 EDT, Height, 81.6, kg, 07/27/19 14:52:00 EST, Dry Weight Start Date: 11/08/19 Status: Orderedgabapentin 300 mg oral capsule 300 mg, 1, capsule, By Mouth, 3 times a day, # 90 capsule, Refills 5, Tot. Refills 5, Maintenance, 11/02/19 16:04:00 EDT, Route to Pharmacy Electronically, [facility]/pharmacy #0693, 160.02, cm, 11/02/19 15:34:00 EDT, Height, [...] 3 Refills, Maintenance, 01/07/20 16:00:00 EDT, Tablet, [facility]/pharmacy #0693, 1 [...] each, 5 Refills, Maintenance, 02/21/20 11:53:00 EDT, [facility]/pharmacy #0678, 301-350: 12 units, 351-400: 14 units, 401-450: 1... Start Date: 02/21/20 Status: OrderedPen [place], 31 G x 5 [...] 07/20/19 16:14:12 EST, Route to Pharmacy Electronically, [id number], [facility]/pharmacy #[id number] Start Date: 07/20/19 Status: Orderedspironolactone 100 mg oral tablet 1, tablet, By Mouth, Daily, # 30 tablet, Refills 5, Tot. Refills 0, Maintenance, 12/07/19 13:00:00 EDT, Route to Pharmacy Electronically, [facility] 72327, 160.02, cm, 11/02/19 15:34:00 EDT, Height, 81.6, kg, 07/27/19 14:52:00 EST, Dry Weight Start Date: 12/07/19 Status: OrderedtraMADol 50 mg oral tablet See Instructions, PRN Pain , Severe, 1-2 tablets by mouth every 6 hours, # 240 tablet, 1 Refills, Soft Stop, 01/07/20 15:58:00 EDT, [facility]/pharmacy #0693, 160.02, cm, 01/07/20 15:07:00 EDT, Height, [...] 5 Refills, Soft Stop, 12/16/19 15:45:00 EDT, [facility]/pharmacy #0693, 160.02, cm, 11/02/19 15:34:00 EDT, Height, 81.6, kg, 07/27/19 14:52:00 EST, Dry Weight Start Date: 12/16/19 Status: OrderedVictoza 18 mg/3 mL subcutaneous solution See Instructions, INJECT 1.8 MG SUBCUTANEOUS DAILY, # 9 Unknown, 0 Refills, Maintenance, 03/03/20 15:42:00 EDT, [facility]/pharmacy #0693, 160.02, cm, 02/11/20 13:03:00 EDT, Height, 81.6, kg, 07/27/19 14:52:00 EST, Dry Weight Start Date: 03/03/20 Status: OrderedVitamin B12 500 mcg oral tablet 1 tablet = 500 mcg, By Mouth, Daily, # 30 tablet, 1 Refills, Maintenance, 02/07/20 8:53:00 EDT, Tablet, [facility]/pharmacy #0693, 160.02, cm, 01/07/20 15:07:00 EDT, Height, [...] Refills, Maintenance, 12/09/19 16:12:00 EDT, ER Tablet, [facility]/pharmacy #0693, 160.02, cm, 11/02/19 15:34:00 EDT, Height, [...] LOCATED [facility]IN 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 Gume Mart Social History Social History Type Response Smoking Status Current some day smoker; Typ e: Cigarettes; Other: less than 1/2 pack a day; Tobacco use times per day: 1/2 pack a day; entered on: 02/19/17 Sex
--- OUTSIDE RECORDS SUMMARY | 2022-06-09 08:57 | XMS_ITS | Continuity of Care Document ---
:1950 Author Organization [facility] Adult Address [address] [place] [address]- Care Team Providers Name Role Phone Kristan SUTTON, Ranjeet Beatty Primary Care Physician [place] [facility] [place] 03[place]19[place]21 - 03/26/21 [facility] Adult [address] [place] [address]- Attending Physician: Leonidas Baker MD Referring Physician: Ranjeet Rushing MD Allergies, [...] (oldterm)11 07/19/08 Given 1Result Comment: [05/28/2017] [facility][NOTE 3]: [id number] History: [id number] Note: VIS GIVEN-DATED Admin Note: vis [id number] Note: VIS smilc7Osfjw Note: VIS-[id number] History: [facility] [id number] History: [facility] [id number] Comment: [10/17/2015] PER NICO AT [id number] Note: VIS [id number] Note: VIS GIVEN Medications 12 inch Grab Bars 12 inch Grab Bars, See Instructions, # 2 each, Refills 0, Tot. Refills 0, Maintenance, Grab bars : Length 12inches Use as directed DX Unsteady Gait ICD10 R26.81 HT: 5'3 Weight 162lbs Length of need Lifetime, 07/07/20 11:45:00 EST, Supply Start Date: 07/07/20 Status: [facility], See Instructions, # 1 each, Refills 0, Tot. Refills 0, Maintenance, FAX [phone] ADMIT TO NURSING HOME, PT, OT. RADIATION CONTROL HEALTH PHYSICIST AND CAREER PROFESSIONAL IF NEEDED DIAGNOSIS: Cervical radiculopathy at [...] Refills, Maintenance, 01/09/21 16:07:00 EDT, [facility], 160, cm, 12/25/20 14:20:00 EDT, Height, 77.5, kg, 10/05/20 14:31:00 EST, Dry Weight Start Date: 01/09/21 Status: Orderedallopurinol 300 mg oral tablet 300 mg, 1, tablet, By Mouth, Daily, # 90 tablet, Refills 1, Tot. Refills 1, Maintenance, 01/26/21 12:31:00 EDT, Route to Pharmacy Electronically, [facility]/pharmacy #[id number], 160, cm, 12/25/20 14:20:00 EDT, Height, [...] Refills, Maintenance, 03/12/21 10:51:00 EDT, [facility], 160, cm, 02/27/21 13:50:00 EDT, Height, 79.6, [...] 05/11/19 Status: [facility] M[facility]IN 3 MG TABLET [facility] M[facility] 3 MG TABLET, 1, tablet, By Mouth, Daily at bedtime, PRN, # 90 tablet, 3 Refills, Maintenance, 03/26/21 12:10:00 EDT, 160, cm, 03/19/21 13:01:00 EDT, Height, 77.27, kg, 03/24/21 20:58:00 EDT, Dry Weight Start Date: 03/26/21 Status: Orderedcyanocobalamin 500 mcg oral tablet 1 tablet = 500 mcg, By Mouth, Daily, # 90 tablet, 1 Refills, Maintenance, 02/08/21 9:52:00 EDT, Tablet, [facility]/pharmacy #0693, 160, cm, 01/25/21 14:11:00 EDT, Height, [...] 02/06/21 9:05:00 EDT, Route to Pharmacy Electronically, [facility]/pharmacy #0693, 160, cm, 01/25/21 14:11:00 EDT, Height, 77.5, kg, 10/05/20 14:31:00 EST, Dry Weight Start Date: 02/06/21 Stop Date: 08/05/21 Status: OrderedHumira 40 mg subcutaneous solution See Instructions, 40 mg [id number], 0 Refills, Maintenance, 10/23/20 13:46:00 EST, Partial fill upon patient request if the prescription is for a schedule II opioid drug. Start Date: 10/23/20 Status: OrderedLyrica 150 mg oral capsule 1 capsule = 150 mg, By Mouth, 2 times a day, DOSAGE INCREASE, # 60 capsule, 3 Refills, Maintenance, 01/23/21 14:56:00 EDT, Capsule, [facility]/pharmacy #0693, 160, cm, 01/14/21 11:46:00 EDT, Height, 77.5, kg,10/05/20 14:31:00 EST, Dry Weight Start Date: 01/23/21 Status: Orderedmagnesium oxide 400 mg (240 mg elemental magnesium) oral tablet 1 tablet, By Mouth, Daily, # 90 tablet, 0 Refills, Acute, 09/20/20 12:20:00 EST, [facility] 223[facility], 90, TAKE 1 TABLET BY MOUTH DAILY, [...] if th... Start Date: 08/30/20 Status: OrderedPen [place], 31 G x 5 mm BD Ultra [...] 01/09/21 15:06:00 EDT, Route to Pharmacy Electronically, [facility]/pharmacy #0693, 160, cm, 12/25/20 14:20:00 EDT, Height, 77.5, kg, 10/05/20 14:31:00 EST, DrBobo Start Date: 01/09/21 Status: Orderedspironolactone 100 mg oral tablet 100 mg, 1, tablet, By Mouth, Daily, # 90 tablet, Refills 0, Tot. Refills 0, Maintenance, 01/23/21 14:56:00 EDT, [id number] Partial fill upon patient request if the prescription is for a schedule II opioid carlene Start Date: 01/23/21 Stop Date: 04/23/21 Status: OrderedtraMADol 50 mg oral tablet See Instructions, PRN Pain , Severe, 1-2 tablets by mouth every 6 hours, # 240 tablet, 1 Refills, Soft Stop, 01/25/21 16:45:00 EDT, [facility]/pharmacy #0693, 160, cm, 01/25/21 14:11:00 EDT, Height, [...] myelopathy(Confirmed) OA (osteoarthritis), Active cervical(Confirmed) Osteoporosis(Confirmed) Active *[facility] [phone] 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 50-70% bilaterally.3Patient's shipping helper is [facility] and patient sees Dr. Gume Mart Vital Signs Most recent to oldest [Reference Range]: 1 Height 160 cm (03/19/21 1:01 PM) Weight 77.5 kg (03/19/21 1:01 PM) Oxygen Saturation [94-100 %] 95 % (03/19/21 1:01 PM) Pulse Rate [55-90 bpm] 87 bpm (03/19/21 1:01 PM) Body Mass Index [18.5-24.99] 30.27 *>HHI* (03/19/21 1:01 PM) Blood Pressure [90-138/55-84 mm Hg] 135/77 mm Hg (03/19/21 1:01 PM) Temperature [96.8-100.4 DegF] 98.0 DegF (03/19/21 1:01 PM) Temperature Route Oral (03/19/21 1:01 PM) Weight Obtained Via Standing scale (03/19/21 1:01 PM) Social History Social History Type Response Tobacco Other: last cigarette 0. Sex
--- OUTSIDE RECORDS SUMMARY | 2022-06-09 08:57 | XMS_ITS | Continuity of Care Document ---
:1950 Author Organization [facility] Adult Address [address] [place] [address]- Care Team Providers Name Role Phone Ranjeet Rushing MD Primary [facility] Physician [facility]20 - 08/03/20 [facility] [address] [place] [address]- Allergies, Adverse Reactions, Alerts Substance Reaction Severity [...] 1Result Comment: [05/28/2017] [facility]: [id number] History: [id number] Note: VIS GIVEN-DATED Admin Note: vis [id number] Note: VIS aacak5Cshlv Note: VIS-PMDIB5Xlwaqikg History: [facility] [id number] History: [facility] DEANGELO Gray Comment: [10/17/2015] PER NICO AT [id number] Note: VIS [id number] Note: VIS GIVEN Medications 12 inch Grab [...] 11 Refills, Maintenance, 05/05/20 14:02:00 EDT, Powder, [facility]/pharmacy #[id number], 2 puffs Inhalation Every 6 hours,PRN:as needed, 160.02, cm, 05/05/20 13:43:00 EDT, Height, 73.6, kg, 04/18/20 10:1... Start Date: 05/05/20 Status: Orderedalendronate 70 mg oral tablet 1 tablet, By Mouth, Every week, # 12 tablet, 0 Refills, Maintenance, 06/01/20 9:05:00 EDT, [facility]/pharmacy #[id number], 160.02, cm, 05/09/20 12:34:00 EDT, Height, 73.6, kg, 04/18/20 10:19:00 EDT, Dry Weight Start Date: 06/01/20 Status: Orderedallopurinol 300 mg oral tablet 300 mg, 1, tablet, By Mouth, Daily, # 90 tablet, Refills 0, Tot. Refills 0, Maintenance, 07/06/20 15:50:00 EST, Route to Pharmacy Electronically, [facility]/pharmacy #[id number], 160.02, cm, 07/03/20 [...] 07/06/20 15:48:00 EST, Route to Pharmacy Electronically, [facility]/pharmacy #[id number], 160.02, cm, 07/03/20 [...] 3 Refills, Maintenance, 07/04/20 11:46:00 EST, Capsule, [facility]/pharmacy #[id number], 160.02, cm, 07/03/20 14:54:00 EST, Height, 73.6, kg, 04/18/20 10:19:00 EDT, Dry Weight Start Date: 07/04/20 Status: Orderedmagnesium oxide 400 mg oral tablet 1 tablet = 400 mg, By Mouth, Daily, PER RAJNI CARDONA, # 90 tablet, 0 Refills, Maintenance, 06/28/20 12:11:00 EST, [facility]/pharmacy #[id number], 160.02, cm, 06/01/20 11:03:00 EDT, Height, 73.6, kg, 04/18/20 10:19:00 EDT, Dry Weight Start Date: 06/28/20 Status: OrderedMelatonin 3 mg oral tablet 1 tablet = 3 mg, By Mouth, Daily at bedtime, PRN for insomnia, [facility], # 90 tablet, 3 Refills, Maintenance, 04/24/20 9:53:00 EDT, Tablet, [facility]/pharmacy #[id number], 1 tablet By [...] each, 5 Refills, Maintenance, 02/21/20 11:53:00 EDT, [facility]/pharmacy #[id number], 301-350: 12 units, 351-400: 14 units, 401-450: 1... Start Date: 02/21/20 Status: OrderedoxyCODONE 5 mg oral capsule 1 capsule = 5 mg, By Mouth, Every 6 hours, PRN as needed for pain, 0 Refills, Maintenance, 06/01/20 11:12:00 EDT, Capsule, Partial fill upon patient request Start Date: 06/01/20 Status: OrderedPen [place], 31 G x 5 mm BD Ultra [...] 06/28/20 9:31:00 EST, Route to Pharmacy Electronically, [facility]/pharmacy #[id number], 160.02, cm, 06/01/20 11:03:00 EDT, Height, 73.6, kg, 04/18/20 10:19:00 EDT,... Start Date: 06/28/20 Status: Orderedspironolactone 100 mg oral tablet 1, tablet, By Mouth, Daily, # 30 tablet, Refills 2, Tot. Refills 2, Maintenance, 05/16/20 16:31:00 EDT, [id number] 160.02, cm, 05/09/20 12:34:00 EDT, Height, 73.6, kg, 04/18/20 10:19:00 EDT, Dry Weight Start Date: 05/16/20 Status: OrderedtraMADol 50 mg oral tablet See Instructions, PRN Pain , Severe, 1-2 tablets by mouth every 6 hours Schedule follow visit, # 240tablet, 1 Refills, Soft Stop, 05/19/20 16:27:00 EDT, [facility]/pharmacy #[id number], 160.02, cm, 05/09/20 [...] 5 Refills, Soft Stop, 12/16/19 15:45:00 EDT, [facility]/pharmacy #[id number], 160.02, cm, 11/02/19 [...] Refills, Maintenance, 07/03/20 15:20:00 EST, ER Tablet, [facility]/pharmacy #[id number], 160.02, cm, 07/03/20 [...] cervical(Confirmed) Osteoporosis(Confirmed) Active *[facility] [phone] 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 50-70% bilaterally.3Patient's conference planning manager is [facility] and patient sees Dr. Gume Mart Social History Social History Type Response Smoking Status Current some day smoker; Typ e: Cigarettes; Other: less than 1/2 pack a day; Tobacco use times per day: 1/2 pack a day; entered on: 02/19/17 Sex
--- OUTSIDE RECORDS SUMMARY | 2022-06-09 08:57 | XMS_ITS | Continuity of Care Document ---
:1950 Author Organization [address], [address] [place] [address]- Care Team Providers Name Role Phone Kristan SUTTON, Ranjeet Beatty Primary Care Physician [facility]): 10/09/21 - 11/08/[address], [address] [place], [place] [address] Allergies, Adverse Reactions, Alerts [...] Given 1Result Comment: [05/28/2017] [facility]: [id number] History: [id number] Note: VIS GIVEN-DATED Admin Note: vis ulawi4Xjzhr Note: VIS mxxxj7Xokcr Note: VIS-ASFNA7Lrjstmsu [place] [facility] [id number] History: [facility] [id number] Comment: [10/17/2015] PER NICO AT [id number] Note: VIS [id number] Note: VIS GIVEN Medications 12 inch Grab [...] tablet, 6 Refills, Maintenance, 01/09/21 16:07:00 EDT, [facility], 160, cm, 12/25/20 14:20:00 EDT, Height, 77.5, kg, 10/05/20 14:31:00 EST, Dry Weight Start Date: 01/09/21 Status: Orderedallopurinol 300 mg oral tablet 1, tablet, By Mouth, Daily, # 90 tablet, Refills 1, Route to Pharmacy Electronically, [facility], 160, cm, 06/19/21 13:57:00 EDT, Height, 77.27, [...] tablet, 5 Refills, Maintenance, 08/30/21 7:54:00 EST, [facility]/pharmacy #[id number], 160, cm, 07/26/21 [...] 1 Refills, Maintenance, 09/18/21 11:52:00 EST, Tablet, [facility]/pharmacy #[id number], 160, cm, [...] tablet, 1 Refills, Maintenance, 10/16/21 15:07:00EST, Tablet, [facility]/pharmacy #[id number], Partial [...] Pharmacy Electronically, [facility], 160, cm, 10/15/21 15:03:00 EST, Height, 75, kg, 09/14/21 11:51:00 EST, Dry Weight Start Date: 10/16/21 Status: OrderedLyrica 150 mg oral capsule 1 capsule = 150 mg, By Mouth, 2 times a day, DOSAGE INCREASE, # 60 capsule, 3 Refills, Maintenance, 07/09/21 14:12:00 EST, Capsule, [facility]/pharmacy #[id number], 160, cm, 06/19/21 13:57:00 EDT, Height, 77.27, kg, 03/24/21 20:58:00 EDT, Dry Weight Start Date: 07/09/21 Status: Orderedmagnesium oxide 400 mg (240 mg elemental magnesium) oral tablet 1 tablet, By Mouth, Daily, # 90 tablet, 0 Refills, Acute, 09/20/20 12:20:00 EST, [facility], 90, TAKE 1 TABLET BY MOUTH DAILY, [...] EDT, Injec... Start Date: 06/11/21 Status: OrderedPen [place], 31 G x 5 mm BD Ultra [...] 07/23/21 13:10:00 EST, Route to Pharmacy Electronically, [facility]/pharmacy #[id number], Partial fill upon patient request if the prescription is for a schedule II opioid thomas... Start Date: 07/23/21 Stop Date: 01/19/22 Status: OrderedtraMADol 50 mg oral tablet See Instructions, TAKE 1-2 TABLETS BY MOUTH EVERY 6 HOURS SCHEDULE FOLLOW VISIT, NEEDED FOR PAIN,# 240 tablet, 5 Refills, Maintenance, 05/31/21 9:52:00 EDT, [facility]/pharmacy #[id number], 160, cm, 05/21/21 [...] 3 Refills, Maintenance, 04/19/21 11:35:00 EDT, Powder, [facility]/pharmacy #[id number], Partial fill [...] # 9 Unknown, 5 Refills, [facility], 160, cm, 09/07/21 15:03:00 EST, Height, 77.27, [...] cervical(Confirmed) Osteoporosis(Confirmed) Active *[facility] [phone] 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 50-70% bilaterally.3Patient's quenching machine operator is [facility] and patient sees Dr. Gume Mart Social History Social History Type Response Smoking Status Former smoker, quit more mark n 30 days ago entered on: 09/28/21 Sex
--- OUTSIDE RECORDS SUMMARY | 2022-06-09 08:57 | XMS_ITS | Continuity of Care Document ---
:1950 Author Organization [address], [address] [place] [address]- Care Team Providers Name Role Phone Ranjeet Rushing MD Primary Care Physician [facility] 09/13/20 - 09/20/[address], [address] [place], [place] [address] [place] Attending Physician: Gabby Bernard DO Allergies, Adverse [...] Given 1Result Comment: [05/28/2017] [facility]: [id number] History: [id number] Note: VIS GIVEN-DATED Admin Note: vis xlwzm4Yizzv Note: VIS bpdyf5Dqjps Note: VIS-UUSST3Gvzaojmj [place] [facility] [id number] History: [facility] DEANGELO Gray Comment: [10/17/2015] PER NICO AT [id number] Note: VIS HDMOX44Citue Note: VIS GIVEN Medications 12 inch Grab [...] 15:50:00 EST, [facility] Maintenance, 07/04/20 11:46:00 EST, Capsule, [facility]/pharmacy #[id number], 160.02, cm, 07/03/20 14:54:00 EST, Height, 73.6, kg, 04/18/20 10:19:00 EDT, Dry Weight Start Date: 07/04/20 Status: Orderedmagnesium oxide 400 mg (240 mg elemental magnesium) oral tablet 1 tablet, By Mouth, Daily, # 90 tablet, 0 Refills, Acute, 09/20/20 12:20:00 EST, [facility], 90, TAKE 1 TABLET BY MOUTH DAILY, [...] 1 tablet By Mouth Daily at bedtime,PRN:for insomnia,Instr:[facility] brand, 160.02, cm, 04/18/20... 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 50-70% bilaterally.3Patient's labourers is [facility] and patient sees Dr. Gume Mart Vital Signs Most recent to oldest [Reference Range]: 1 Height 160 cm (09/12/20 2:03 PM) Weight 71.3 kg (09/12/20 2:03 PM) Body Mass Index [18.5-24.99] 27.85 *H* (09/12/20 2:03 PM) Social History Social History Type Response Tobacco Other: last cigarette 0. Sex
--- OUTSIDE RECORDS SUMMARY | 2022-06-09 08:57 | XMS_ITS | Continuity of Care Document ---
:1950 Author Organization [facility] Adult Address [address] [place] [address]- Care Team Providers Name Role Phone Ranjeet Rushing MD Primary Care Physician [facility] 05[facility]19/20 - 06/18/20 [facility] [address] [place] [address]- [facility] Allergies, Adverse Reactions, Alerts Substance [...] Given 1Result Comment: [05/28/2017] [facility]: [id number] History: [id number] Note: VIS GIVEN-DATED Admin Note: vis eulhf3Govyb Note: VIS gnxtz0Uqowj Note: VIS-QJWBU8Ldxqeezf [place] [facility] [id number] History: [facility] DEANGELO Gray Comment: [10/17/2015] PER NICO AT [id number] Note: VIS [id number] Note: VIS GIVEN Medications albuterol 90 mcg/inh [...] tablet, 0 Refills, Maintenance, 06/01/20 9:05:00 EDT, [facility]/pharmacy #[id number], 160.02, cm, 05/09/20 12:34:00 EDT, Height, 73.6, kg, 04/18/20 10:19:00 EDT, Dry Weight Start Date: 06/01/20 Status: Orderedallopurinol 300 mg oral tablet 1, tablet, By Mouth, Daily, # 90 tablet, Refills 0, Tot. Refills 0, Maintenance, 04/05/20 9:38:00 EDT, [id number] 160[facility], cm, 03/29/20 10:57:00 EDT, [...] 0 Refills, Maintenance, 06/01/20 12:01:00 EDT, Capsule, [facility]/pharmacy [...] TAKE 1 CAPSULE BY MOUTH EVERY DAY, [facility]/pharmacy #[id number] Start Date: 04/20/19 [...] 04/07/20 11:50:00 EDT, Route to Pharmacy Electronically, [facility]/pharmacy #[id number], 160.02, cm, 03/29/20 10:57:00 EDT,Height, 81.6, kg, 07/27/19 14:52:00 EST, Dry Weight Start Date: 04/07/20 Status: Orderedgabapentin 300 mg oral capsule 300 mg, 1, capsule, By Mouth, 3 times a day, # 90 capsule, Refills 5, Tot. Refills 5, Maintenance, 04/13/20 12:42:00 EDT, Route to Pharmacy Electronically, [facility]/pharmacy #[id number], 160.02, cm, 03/29/20 10:57:00 [...] 1 Refills, Maintenance, 05/12/20 14:54:00 EDT, Capsule, [facility]/pharmacy #0693, 160.02, cm, 05/09/20 12:34:00 [...] each, 5 Refills, Maintenance, 02/21/20 11:53:00 EDT, [facility]/pharmacy #[id number], 301-350: 12 units, 351-400: 14 units, 401-450: 1... Start Date: 02/21/20 Status: OrderedoxyCODONE 5 mg oral capsule 1 capsule = 5 mg, By Mouth, Every 6 hours, PRN as needed for pain, 0 Refills, Maintenance, 06/01/20 11:12:00 EDT, Capsule, Partial fill upon patient request Start Date: 06/01/20 Status: OrderedPen [place], 31 G x 5 mm BD Ultra [...] 07/20/19 16:14:12 EST, Route to Pharmacy Electronically, [id number], [facility]/pharmacy #[id number] Start Date: 07/20/19 Status: Orderedspironolactone 100 mg oral tablet 1, tablet, By Mouth, Daily, # 30 tablet, Refills 2, Tot. Refills 2, Maintenance, 05/16/20 16:31:00 EDT, Route to Pharmacy Electronically, [facility]/pharmacy #[id number], 160.02, cm, 05/09/20 12:34:00 EDT, Height, 73.6, kg, 04/18/20 10:19:00 EDT, Dry Weight Start Date: 05/16/20 Status: OrderedtraMADol 50 mg oral tablet See Instructions, PRN Pain , Severe, 1-2 tablets by mouth every 6 hours Schedule follow visit, # 240tablet, 1 Refills, Soft Stop, 05/19/20 16:27:00 EDT, [facility]/pharmacy #[id number], 160.02, cm, 05/09/20 12:34:00 [...] 5 Refills, Soft Stop, 12/16/19 15:45:00 EDT, [facility]/pharmacy #[id number], 160.02, cm, 11/02/19 15:34:00 EDT, Height, 81.6, kg, 07/27/19 14:52:00 EST, Dry Weight Start Date: 12/16/19 Status: OrderedVictoza 18 mg/3 mL subcutaneous solution See Instructions, INJECT 1.8 MG UNDER THE SKIN ONCE DAILY, # 9 Unknown, 0 Refills, Maintenance, [facility], 160.02, cm, 05/09/20 12:34:00 EDT, Height, 73.6, kg, 04/18/20 10:19:00 EDT, Dry Weight Start Date: 05/26/20 Status: OrderedVitamin D3 1000 intl units oral capsule 1 capsule = 1,000 International_Units, By Mouth, Daily, # 90 capsule, 3 Refills, Maintenance, 10/20/19 9:16:00 EST, Capsule, [facility]/pharmacy #[id number], resent from 08/14, 160.02, cm, 09/29/19 14:57:00 EST, Height, 81.6, kg, 07/27/19 14:52:00 EST, Dry Weight Start Date: 10/20/19 Status: OrderedWellbutrin XL 150 mg/24 hours oral tablet, extended release 1 tablet = 150 mg, By Mouth, Every 24 hours, do not crush or chew, # 30 tablet, 6 Refills, Maintenance, 12/09/19 16:12:00 EDT, ER Tablet, 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 50-70% bilaterally.3Patient's warehouseman is [facility] and patient sees Dr. Gume Mart Social History Social History Type Response Smoking Status Current some day smoker; Typ e: Cigarettes; Other: less than 1/2 pack a day; Tobacco use times per day: 1/2 pack a day; entered on: 02/19/17 Sex
--- OUTSIDE RECORDS SUMMARY | 2022-06-09 08:57 | XMS_ITS | Continuity of Care Document ---
:1950 Author Organization [facility] Adult Address [address] [place] [address]- Care Team Providers Name Role Phone Ranjeet Rushing MD Primary Care Physician [facility] 07[facility]07[facility]20 - 08/06/20 [facility] [address] [place] [address]- Allergies, Adverse Reactions, Alerts Substance Reaction Severity [...] (oldterm)11 07/19/08 Given 1Result Comment: [05/28/2017] [facility]: [id number] History: [id number] Note: VIS GIVEN-DATED Admin Note: vis bizsk2Penrx Note: VIS [id number] Note: VIS-HQSLO9Mseyykrb [place] [facility] [id number] History: [facility] DEANGELO Gray Comment: [10/17/2015] PER NICO AT [id number] Note: VIS IWTUN09Oqvlk Note: VIS GIVEN Medications 12 inch Grab [...] tablet, 0 Refills, Maintenance, 06/01/20 9:05:00 EDT, [facility]/pharmacy #0693, 160.02, cm, 05/09/20 12:34:00 EDT, Height, 73.6, kg, 04/18/20 10:19:00 EDT, Dry Weight Start Date: 06/01/20 Status: Orderedallopurinol 300 mg oral tablet 300 mg, 1, tablet, By Mouth, Daily, # 90 tablet, Refills 0, Tot. Refills 0, Maintenance, 07/06/20 15:50:00 EST, Route to Pharmacy Electronically, [facility]/pharmacy [...] tablet, 0 Refills, Maintenance, 06/28/20 12:11:00 EST, [facility]/pharmacy #[id number], 160.02, cm, 06/01/20 11:03:00 [...] each, 5 Refills, Maintenance, 02/21/20 11:53:00 EDT, [facility]/pharmacy #0673, 301-350: 12 units, 351-400: 14 units, 401-450: 1... Start Date: 02/21/20 Status: OrderedoxyCODONE 5 mg oral capsule 1 capsule = 5 mg, By Mouth, Every 6 hours, PRN as needed for pain, 0 Refills, Maintenance, 06/01/20 11:12:00 EDT, Capsule, Partial fill upon patient request Start Date: 06/01/20 Status: OrderedPen [place], 31 G x 5 mm BD Ultra [...] 05/16/20 16:31:00 EDT, [id number], cm, 05/09/20 12:34:00 EDT, Height, 73.6, kg, 04/18/20 10:19:00 EDT, Dry Weight Start Date: 05/16/20 Status: OrderedtraMADol 50 mg oral tablet See Instructions, PRN Pain , Severe, 1-2 tablets by mouth every 6 hours Schedule follow visit, # 240tablet, 1 Refills, Soft Stop, 05/19/20 16:27:00 EDT, [facility]/pharmacy #0693, 160.02, cm, 05/09/20 12:34:00 EDT, [...] 5 Refills, Soft Stop, 12/16/19 15:45:00 EDT, [facility]/pharmacy #0693, 160.02, cm, 11/02/19 15:34:00 EDT, Height, [...] cervical(Confirmed) Osteoporosis(Confirmed) Active *[facility] [phone] 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 Gume Mart Social History Social History Type Response Smoking Status Current some day smoker; Typ e: Cigarettes; Other: less than 1/2 pack a day; Tobacco use times per day: 1/2 pack a day; entered on: 02/19/17 Sex
--- OUTSIDE RECORDS SUMMARY | 2022-06-09 08:57 | XMS_ITS | Continuity of Care Document ---
:1950 Author Organization [facility] Adult Address [address] [place] [address]- Care Team Providers Name Role Phone Ranjeet Rushing MD Primary Care Physician [place] [facility] [place]23/[place] [facility] [address] [place] [address]- Encounter Diagnosis Anxiety (Discharge Diagnosis) - 10/16/21 Picking own skin (Discharge Diagnosis) - 10/16/21 Neck pain (Discharge Diagnosis) - 10/16/21 Head pain (Discharge Diagnosis) - 10/16/21 Attending Physician: Chari Grey NP Referring Physician: [...] 07/19/08 Given 1Result Comment: [05/28/2017] [facility]: [id number] History: [id number] Note: VIS GIVEN-DATED Admin Note: vis [id number] Note: VIS [id number] Note: VIS-[id number] [place] [facility] [id number] History: [facility] [id number] Comment: [10/17/2015] PER NICO AT [id number] Note: VIS [id number] Note: VIS GIVEN Medications 12 inch Grab [...] Refills, Maintenance, 01/09/21 16:07:00 EDT, [facility], 160, cm, 12/25/20 14:20:00 EDT, Height, 77.5, kg, 10/05/20 14:31:00 EST, Dry Weight Start Date: 01/09/21 Status: Orderedallopurinol 300 mg oral tablet 1, tablet, By Mouth, Daily, # 90 tablet, Refills 1, Route to Pharmacy Electronically, [facility], 160, cm, 06/19/21 13:57:00 EDT, Height, 77.27, [...] tablet, 5 Refills, Maintenance, 08/30/21 7:54:00 EST, [facility]/pharmacy #[id number], 160, cm, 07/26/21 10:45:00 [...] 1 Refills, Maintenance, 09/18/21 11:52:00 EST, Tablet, [facility]/pharmacy #[id number], 160, cm, 09/14/21 [...] tablet, 1 Refills, Maintenance, 10/16/21 15:07:00EST, Tablet, [facility]/pharmacy #0659, Partial fill upon patient request if the [...] to Pharmacy Electronically, [facility] STORE 99352, 160, cm, 10/15/21 15:03:00 EST, Height, 75, kg, 09/14/21 11:51:00 EST, Dry Weight Start Date: 10/16/21 Status: OrderedLyrica 150 mg oral capsule 1 capsule = 150 mg, By Mouth, 2 times a day, DOSAGE INCREASE, # 60 capsule, 3 Refills, Maintenance, 07/09/21 14:12:00 EST, [facility]apsule, [facility], 160, cm, 06/19/21 13:57:00 EDT, Height, 77.27, kg, 03/24/21 20:58:00 EDT, Dry Weight Start Date: 07/09/21 Status: Orderedmagnesium oxide 400 mg (240 mg elemental magnesium) oral tablet 1 tablet, By Mouth, Daily, # 90 tablet, 0 Refills, Acute, 09/20/20 12:20:00 EST, [facility], 90, TAKE 1 TABLET BY MOUTH DAILY, 160, cm, 09/12/20 14:03:00 EST, Height, 71.3, kg, 08/08/20 7:00:00 EST, Dry Weight Start Date: 09/20/20 Status: Orderedmagnesium oxide 400 mg oral tablet 1 tablet = 400 mg, By Mouth, Daily, # 100 tablet, 2 Refills, Maintenance, 06/05/21 11:32:00 EDT, Tablet, [facility]/pharmacy #[id number], Partial fill [...] EDT, Injec... Start Date: 06/11/21 Status: OrderedPen [place], 31 G x 5 mm BD Ultra [...] 07/23/21 13:10:00 EST, Route to Pharmacy Electronically, [facility]/pharmacy #[id number], Partial fill upon [...] # 9 Unknown, 5 Refills, [facility], 160, cm, 09/07/21 15:03:00 EST, Height, 77.27, [...] LOCATED [facility]IN 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 50-70% bilaterally.3Patient's deicer repairer pneumatic is [facility] and patient sees Dr. Gume Mart Diagnosis Diagnosis Type Effective Dates Health Status Clinical In formant Service Anxiety Discharge 10/16/21 Diagnosis Picking own skin Discharge 10/16/21 Diagnosis Neck pain Discharge 10/16/21 Diagnosis Head pain Discharge 10/16/21 Diagnosis Vital Signs Most recent to oldest [Reference Range]: 1 Height 160 cm (10/16/21 2:42 PM) Weight 75.0 kg (10/16/21 2:42 PM) Body Mass Index [18.5-24.99] 29.3 *H* (10/16/21 2:42 PM) Weight Obtained Via Patient/family stated (10/16/21 2:42 PM) Social History Social History Type Response Smoking Status Former smoker, quit more mark n 30 days ago entered on: 09/28/21 Sex
--- OUTSIDE RECORDS SUMMARY | 2022-06-09 08:57 | XMS_ITS | Continuity of Care Document ---
:[address] [facility] Adult Address [address] [place] [address]- Care Team Providers Name Role Phone Kristan SUTTON, Ranjeet Beatty Primary Care Physician Encounter [facility] Date(s): 09/15/21 - 10/15/21 [facility] [address] [place] [address]- Allergies, Adverse Reactions, Alerts Substance Reaction Severity [...] (PPV23) (oldterm)11 07/19/08 Given 1Result Comment: [05/28/2017] [facility]: [id number] History: [id number] Note: VIS GIVEN-DATED Admin Note: vis [id number] Note: VIS [id number] Note: VIS-[id number] [place] [facility] [place] History: [facility] [id number] Comment: [10/17/2015] PER NICO AT [id number] Note: VIS [id number] Note: VIS GIVEN Medications 12 inch Grab [...] [facility] STORE 10064, 160, cm, 12/25/20 14:20:00 EDT, Height, 77.5, kg, 10/05/20 14:31:00 EST, Dry Weight Start Date: 01/09/21 Status: Orderedallopurinol 300 mg oral tablet 1, tablet, By Mouth, Daily, # 90 tablet, Refills 1, Route to Pharmacy Electronically, [facility] STORE 21538, 160, cm, 06/19/21 13:57:00 EDT, Height, 77.27, [...] Refills, Maintenance, 08/30/21 7:54:00 EST, [facility]/pharmacy #[id number], 160, cm, 07/26/21 10:45:00 EST, Height, [...] 1 Refills, Maintenance, 09/18/21 11:52:00 EST, Tablet, [facility]/pharmacy #[id number], 160, cm, 09/14/21 11:51:00 EST, Height, [...] 0 Refills, Maintenance, 09/28/21 15:23:00 EST, Tablet, [facility]/pharmacy [...] 3 Refills, Maintenance, 07/09/21 14:12:00 EST, Capsule, [facility]/pharmacy #[id number], 160, cm, 06/19/21 13:57:00 EDT, Height, 77.27, kg, 03/24/21 20:58:00 EDT, Dry Weight Start Date: 07/09/21 Status: Orderedmagnesium oxide 400 mg (240 mg elemental magnesium) oral tablet 1 tablet, By Mouth, Daily, # 90 tablet, 0 Refills, Acute, 09/20/20 12:20:00 EST, [facility] STORE 82274, 90, TAKE 1 TABLET BY MOUTH DAILY, [...] EDT, Injec... Start Date: 06/11/21 Status: OrderedPen [place], 31 G x 5 mm BD Ultra [...] EST, Route to Pharmacy Electronically, [facility]/pharmacy #[id number], 160, cm, 09/14/21 11:51:00 EST, Height, 75, kg, 09/14/21 11:51:00 EST, Dry... Start Date: 09/15/21 Status: Orderedspironolactone 100 mg oral tablet 100 mg, 1, tablet, By Mouth, Daily, # 90 tablet, Refills 1, Tot. 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 50-70% bilaterally.3Patient's accounting professor is [facility] and patient sees Dr. Gume Mart Social History Social History Type Response Smoking Status Former smoker, quit more mark n 30 days ago entered on: 09/28/21 Sex
--- OUTSIDE RECORDS SUMMARY | 2022-06-09 08:57 | XMS_ITS | Continuity of Care Document ---
:1950 Author Organization [facility] Address [address] [place] [address]- Care Team Providers Name Role Phone Ranjeet Rushing MD Primary Care Physician Encounter [facility] [place] Date(s): 05/26/20 - 06/28/20 [facility] [address] [place] [address]- [facility] Attending Physician: Mustapha Vogt MD Admitting Physician: Mustapha Vogt MD Referring Physician: Ranjeet Rushing MD Allergies, [...] Given 1Result Comment: [05/28/2017] [facility]: [id number] History: [id number] Note: VIS GIVEN-DATED Admin Note: vis [id number] Note: VIS [id number] Note: VIS-[id number] History: [facility] [place] [id number] History: [facility] LR9Luioji Comment: [10/17/2015] PER NICO AT [id number] Note: VIS [id number] Note: VIS GIVEN Medications albuterol 90 mcg/inh inhalation powder 2 puffs, Inhalation, Every 6 hours, PRN as needed, # 1 each, 11 Refills, Maintenance, 05/05/20 14:02:00 EDT, Powder, [facility]/pharmacy #[id number], 2 puffs Inhalation Every 6 hours,PRN:as needed, 160.02, cm, 05/05/20 13:43:00 EDT, Height, 73.6, kg, 04/18/20 10:1... Start Date: 05/05/20 Status: Orderedalendronate 70 mg oral tablet 1 tablet, By Mouth, Every week, # 12 tablet, 0 Refills, Maintenance, 06/01/20 9:05:00 EDT, [facility]/pharmacy #0693, 160.02, cm, 05/09/20 12:34:00 EDT, Height, 73.6, kg, 04/18/20 10:19:00 EDT, Dry Weight Start Date: 06/01/20 Status: Orderedallopurinol 300 mg oral tablet 1, tablet, By Mouth, Daily, # 90 tablet, Refills 0, Tot. Refills 0, Maintenance, 04/05/20 9:38:00 EDT, Route to Pharmacy Electronically, [facility]/pharmacy #0693, 160.02, cm, 03/29/20 10:57:00 EDT, Height, [...] 0 Refills, Maintenance, 06/01/20 12:01:00 EDT, Capsule, [facility]/pharmacy #0693, 160.02, cm, 06/01/20 11:03:00 EDT, Height, [...] TAKE 1 CAPSULE BY MOUTH EVERY DAY, [facility]/pharmacy #[id number] Start Date: 04/20/19 Status: Orderedcyanocobalamin 500 mcg oral tablet 1 tablet = 500 mcg, By Mouth, Daily, # 90 tablet, 0 Refills, Maintenance, 02/11/20 13:33:00 EDT, Tablet, [facility]/pharmacy #0693, 160.02, cm, 02/11/20 13:03:00 EDT, Height, [...] 04/07/20 11:50:00 EDT, Route to Pharmacy Electronically, [facility]/pharmacy #0693, 160.02, cm, 03/29/20 10:57:00 EDT,Height, 81.6, kg, 07/27/19 14:52:00 EST, Dry Weight Start Date: 04/07/20 Status: Orderedgabapentin 300 mg oral capsule 300 mg, 1, capsule, By Mouth, 3 times a day, # 90 capsule, Refills 5, Tot. Refills 5, Maintenance, 04/13/20 12:42:00 EDT, Route to Pharmacy Electronically, [facility]/pharmacy #0693, 160.02, cm, 03/29/20 10:57:00 EDT, Height, [...] 1 Refills, Maintenance, 05/12/20 14:54:00 EDT, Capsule, [facility]/pharmacy #0693, 160.02, cm, 05/09/20 12:34:00 EDT, Height, 73.6, kg, 04/18/20 10:19:00 EDT, Dry Weight Start Date: 05/12/20 Status: Orderedmagnesium oxide 400 mg oral tablet 1 tablet = 400 mg, By Mouth, Daily, PER RAJNI CARDONA, # 90 tablet, 0 Refills, Maintenance, 06/28/20 12:11:00 EST, [facility]/pharmacy #0693, 160.02, cm, 06/01/20 11:03:00 EDT, Height, 73.6, kg, 04/18/20 10:19:00 EDT, Dry Weight Start Date: 06/28/20 Status: OrderedMelatonin 3 mg oral tablet 1 tablet = 3 mg, By Mouth, Daily at bedtime, PRN for insomnia, [facility], # 90 tablet, 3 Refills, Maintenance, 04/24/20 9:53:00 EDT, Tablet, [facility]/pharmacy #0693, 1 tablet By Mouth Daily at [...] 5 Refills, Maintenance, 02/21/20 11:53:00 EDT, [facility]/pharmacy #0693, 301-350: 12 units, 351-400: 14 units, 401-450: 1... Start Date: 02/21/20 Status: OrderedoxyCODONE 5 mg oral capsule 1 capsule = 5 mg, By Mouth, Every 6 hours, PRN as needed for pain, 0 Refills, Maintenance, 06/01/20 11:12:00 EDT, Capsule, Partial fill upon patient request Start Date: 06/01/20 Status: OrderedPen [place], 31 G x 5 mm BD Ultra [...] 9:31:00 EST, Route to Pharmacy Electronically, [facility]/pharmacy #[id number], 160.02, cm, 06/01/20 11:03:00 EDT, Height, 73.6, kg, 04/18/20 10:19:00 EDT,... Start Date: 06/28/20 Status: Orderedspironolactone 100 mg oral tablet 1, tablet, By Mouth, Daily, # 30 tablet, Refills 2, Tot. Refills 2, Maintenance, 05/16/20 16:31:00 EDT, Route to Pharmacy Electronically, [facility]/pharmacy #[id number], 160.02, cm, 05/09/20 12:34:00 EDT, Height, 73.6, kg, 04/18/20 10:19:00 EDT, Dry Weight Start Date: 05/16/20 Status: OrderedtraMADol 50 mg oral tablet See Instructions, PRN Pain , Severe, 1-2 tablets by mouth every 6 hours Schedule follow visit, # 240tablet, 1 Refills, Soft Stop, 05/19/20 16:27:00 EDT, [facility]/pharmacy #0693, 160.02, cm, 05/09/20 12:34:00 EDT, Height, [...] Refills, Soft Stop, 12/16/19 15:45:00 EDT, [facility]/pharmacy #0693, 160.02, cm, 11/02/19 15:34:00 EDT, Height, 81.6, kg, 07/27/19 14:52:00 EST, Dry Weight Start Date: 12/16/19 Status: OrderedVictoza 18 mg/3 mL subcutaneous solution See Instructions, INJECT 1.8 MG UNDER THE SKIN ONCE DAILY, # 9 Unknown, 5 Refills, 06/20/20 15:08:00EDT, [facility]/pharmacy #[id number], 160.02, cm, 06/01/20 11:03:00 EDT, Height, 73.6, kg, 04/18/20 10:19:00 EDT,Dry Weight Start Date: 06/20/20 Status: OrderedVitamin D3 1000 intl units oral capsule 1 capsule = 1,000 International_Units, By Mouth, Daily, # 90 capsule, 3 Refills, Maintenance, 10/20/19 9:16:00 EST, Capsule, [facility]/pharmacy #0693, resent from 08/14, 160.02, cm, 09/29/19 14:57:00 EST, Height, 81.6, kg, 07/27/19 14:52:00 EST, Dry Weight Start Date: 10/20/19 Status: OrderedWellbutrin XL 150 mg/24 hours oral tablet, extended release 1 tablet = 150 mg, By Mouth, Every 24 hours, do not crush or chew, # 30 tablet, 5 Refills, Maintenance, 06/28/20 9:33:00 EST, ER Tablet, [facility]/pharmacy #[id number], 160.02, cm, 06/01/20 11:03:00 EDT, Height, [...] cervical(Confirmed) Osteoporosis(Confirmed) Active *[facility] [phone] 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 50-70% bilaterally.3Patient's consumer loan manager is [facility] and patient sees Dr. Gume Mart Social History Social History Type Response Smoking Status Current some day smoker; Typ e: Cigarettes; Other: less than 1/2 pack a day; Tobacco use times per day: 1/2 pack a day; entered on: 02/19/17 Sex
--- OUTSIDE RECORDS SUMMARY | 2022-06-09 08:57 | XMS_ITS | Continuity of Care Document ---
:1950 Author Organization [facility] Address [address] [place] [address]- Care Team Providers Name Role Phone Ranjeet Rsuhing MD Primary Care Physician Encounter [facility] Date(s): 04/21/20 - 05/21/20 [facility] [address] [place] [address]- [facility] Allergies, Adverse Reactions, Alerts Substance Reaction [...] 07/19/08 Given 1Result Comment: [05/28/2017] [facility]: [id number] History: [id number] Note: VIS GIVEN-DATED Admin Note: vis [id number] Note: VIS oqvhy9Edhbr Note: VIS-[id number] [place] [facility] [id number] History: [facility] DEANGELO Gray Comment: [10/17/2015] PER NICO AT [id number] Note: VIS [id number] Note: VIS GIVEN Medications albuterol 90 mcg/inh [...] tablet, 0 Refills, Maintenance, 03/17/20 11:27:00 EDT, [facility] STORE 25684, 160.02, cm, 03/14/20 13:30:00 EDT, Height, 81.6, kg, 07/27/19 14:52:00 EST, Dry Weight Start Date: 03/17/20 Status: Orderedallopurinol 300 mg oral tablet 1, tablet, By Mouth, Daily, # 90 tablet, Refills 0, Tot. Refills 0, Maintenance, 04/05/20 9:38:00 EDT, Route to Pharmacy Electronically, [facility]/pharmacy #0693, 160.02, cm, 03/29/20 [...] 0 Refills, Maintenance, 02/11/20 13:33:00 EDT, Tablet, [facility]/pharmacy #0693, 160.02, cm, 02/11/20 [...] 04/07/20 11:50:00 EDT, Route to Pharmacy Electronically, [facility]/pharmacy #0693, 160.02, cm, 03/29/20 10:57:00 EDT,Height, 81.6, kg, 07/27/19 14:52:00 EST, Dry Weight Start Date: 04/07/20 Status: Orderedgabapentin 300 mg oral capsule 300 mg, 1, capsule, By Mouth, 3 times a day, # 90 capsule, Refills 5, Tot. Refills 5, Maintenance, 04/13/20 12:42:00 EDT, Route to Pharmacy Electronically, [facility]/pharmacy #0693, 160.02, cm, 03/29/20 [...] 1 Refills, Maintenance, 05/12/20 14:54:00 EDT, Capsule, [facility]/pharmacy #0693, 160.02, cm, 05/09/20 [...] 3 Refills, Maintenance, 04/24/20 9:53:00 EDT, Tablet, [facility]/pharmacy #0693, 1 tablet By [...] 401-450: 1... Start Date: 02/21/20 Status: OrderedPen [place], 31 G x 5 mm BD Ultra [...] 07/20/19 16:14:12 EST, Route to Pharmacy Electronically, [id number], [facility]/pharmacy #[id number] Start Date: 07/20/19 Status: Orderedspironolactone 100 mg oral tablet 1, tablet, By Mouth, Daily, # 30 tablet, Refills 2, Tot. 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 Gume Mart Social History Social History Type Response Smoking Status Current some day smoker; Typ e: Cigarettes; Other: less than 1/2 pack a day; Tobacco use times per day: 1/2 pack a day; entered on: 02/19/17 Sex
--- OUTSIDE RECORDS SUMMARY | 2022-06-09 08:57 | XMS_ITS | Continuity of Care Document ---
:1950 Author Organization [facility] Address [address] [place] [address]- Care Team Providers Name Role Phone Ranjeet Rushing MD Primary Care Physician [facility] Date[facility]s): 05/02/20 - 06/01/20 [facility] [address] [place] [id number]- [facility] Allergies, Adverse Reactions, Alerts Substance Reaction [...] 1Result Comment: [05/28/2017] [facility]: [id number] History: [id number] Note: VIS GIVEN-DATED Admin Note: vis [id number] Note: VIS [id number] Note: [id number] [place] [facility] [id number] History: [facility] DEANGELO Gray Comment: [10/17/2015] PER NICO AT [id number] Note: VIS [id number] Note: VIS GIVEN Medications albuterol 90 mcg/inh [...] tablet, 0 Refills, Maintenance, 06/01/20 9:05:00 EDT, [facility]/pharmacy #[id number], 160.02, cm, 05/09/20 12:34:00 EDT, Height, 73.6, kg, 04/18/20 10:19:00 EDT, Dry Weight Start Date: 06/01/20 Status: Orderedallopurinol 300 mg oral tablet 1, tablet, By Mouth, Daily, # 90 tablet, Refills 0, Tot. Refills 0, Maintenance, 04/05/20 9:38:00 EDT, Route to Pharmacy Electronically, [facility]/pharmacy #[id number], 160.02, cm, 03/29/20 [...] 0 Refills, Maintenance, 06/01/20 12:01:00 EDT, Capsule, [facility]/pharmacy #[id number], 160.02, cm, 06/01/20 [...] TAKE 1 CAPSULE BY MOUTH EVERY DAY, [facility]/pharmacy #[id number] Start Date: 04/20/19 Status: Orderedcyanocobalamin 500 mcg oral tablet 1 tablet = 500 mcg, By Mouth, Daily, # 90 tablet, 0 Refills, Maintenance, 02/11/20 13:33:00 EDT, Tablet, [facility]/pharmacy #[id number], 160.02, cm, 02/11/20 [...] 04/07/20 11:50:00 EDT, Route to Pharmacy Electronically, [facility]/pharmacy #[id number], 160.02, cm, 03/29/20 10:57:00 EDT,Height, 81.6, kg, 07/27/19 14:52:00 EST, Dry Weight Start Date: 04/07/20 Status: Orderedgabapentin 300 mg oral capsule 300 mg, 1, capsule, By Mouth, 3 times a day, # 90 capsule, Refills 5, Tot. Refills 5, Maintenance, 04/13/20 12:42:00 EDT, Route to Pharmacy Electronically, [facility]/pharmacy #[id number], 160.02, cm, 03/29/20 [...] 1 Refills, Maintenance, 05/12/20 14:54:00 EDT, Capsule, [facility]/pharmacy #[id number], 160.02, cm, 05/09/20 [...] 3 Refills, Maintenance, 04/24/20 9:53:00 EDT, Tablet, [facility]/pharmacy #[id number], 1 [...] each, 5 Refills, Maintenance, 02/21/20 11:53:00 EDT, [facility]/pharmacy #[id number], 301-350: 12 units, 351-400: 14 units, 401-450: 1... Start Date: 02/21/20 Status: OrderedoxyCODONE 5 mg oral capsule 1 capsule = 5 mg, By Mouth, Every 6 hours, PRN as needed for pain, 0 Refills, Maintenance, 06/01/20 11:12:00 EDT, Capsule, Partial fill upon patient request Start Date: 06/01/20 Status: OrderedPen [place], 31 G x 5 mm BD Ultra [...] 07/20/19 16:14:12 EST, Route to Pharmacy Electronically, [id number], [facility]/pharmacy #[id number] Start Date: 07/20/19 Status: Orderedspironolactone 100 mg oral tablet 1, tablet, By Mouth, Daily, # 30 tablet, Refills 2, Tot. Refills 2, Maintenance, 05/16/20 16:31:00 EDT, Route to Pharmacy Electronically, [facility]/pharmacy #[id number], 160.02, cm, 05/09/20 12:34:00 EDT, Height, 73.6, kg, 04/18/20 10:19:00 EDT, Dry Weight Start Date: 05/16/20 Status: OrderedtraMADol 50 mg oral tablet See Instructions, PRN Pain , Severe, 1-2 tablets by mouth every 6 hours Schedule follow visit, # 240tablet, 1 Refills, Soft Stop, 05/19/20 16:27:00 EDT, [facility]/pharmacy #[id number], 160.02, cm, 05/09/20 [...] 5 Refills, Soft Stop, 12/16/19 15:45:00 EDT, [facility]/pharmacy #[id number], 160.02, cm, 11/02/19 15:34:00 EDT, Height, 81.6, kg, 07/27/19 14:52:00 EST, Dry Weight Start Date: 12/16/19 Status: OrderedVictoza 18 mg/3 mL subcutaneous solution See Instructions, INJECT 1.8 MG UNDER THE SKIN ONCE DAILY, # 9 Unknown, 0 Refills, Maintenance, [facility] STORE [id number], 160.02, cm, 05/09/20 12:34:00 EDT, Height, 73.6, kg, 04/18/20 10:19:00 EDT, Dry Weight Start Date: 05/26/20 Status: OrderedVitamin D3 1000 intl units oral capsule 1 capsule = 1,000 International_Units, By Mouth, Daily, # 90 capsule, 3 Refills, Maintenance, 10/20/19 9:16:00 EST, Capsule, [facility]/pharmacy #[id number], resent from 08/14, 160.02, cm, 09/29/19 14:57:00 EST, Height, 81.6, kg, 07/27/19 14:52:00 EST, Dry Weight Start Date: 10/20/19 Status: OrderedWellbutrin XL 150 mg/24 hours oral tablet, extended release 1 tablet = 150 mg, By Mouth, Every 24 hours, do not crush or chew, # 30 tablet, 6 Refills, Maintenance, 12/09/19 16:12:00 EDT, ER Tablet, [facility]/pharmacy #[id number], 160.02, cm, 11/02/19 [...] Active *[facility] [phone] 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 Gume Mart Social History Social History Type Response Smoking Status Current some day smoker; Typ e: Cigarettes; Other: less than 1/2 pack a day; Tobacco use times per day: 1/2 pack a day; entered on: 02/19/17 Sex
--- OUTSIDE RECORDS SUMMARY | 2022-06-09 08:57 | XMS_ITS | Continuity of Care Document ---
:1950 Author Organization [facility] Address [address] [place] [address]- Care Team Providers Name Role Phone Aarti SUTTON, Jose Person Primary Care Physician [facility] Date[facility]s): 07/03/20 - 08/16/[address] [address] Attending Physician: Ranjeet Rushing MD Admitting Physician: Ranjeet Rushing MD Referring Physician: Ranjeet Rushing MD Allergies, [...] Given 1Result Comment: [05/28/2017] [facility]: [id number] History: [id number] Note: VIS GIVEN-DATED Admin Note: vis [id number] Note: VIS [id number] Note: [id number] [place] [facility] [place] [id number] History: [facility] DEANGELO Gray Comment: [10/17/2015] PER NICO AT [id number] Note: VIS [id number] Note: VIS GIVEN Medications 12 inch Grab [...] each, 5 Refills, Maintenance, 02/21/20 11:53:00 EDT, [facility]/pharmacy #[id number], 301-350: 12 units, 351-400: 14 units, 401-450: 1... Start Date: 02/21/20 Status: OrderedoxyCODONE 5 mg oral capsule 1 capsule = 5 mg, By Mouth, Every 6 hours, PRN as needed for pain, 0 Refills, Maintenance, 06/01/20 11:12:00 EDT, Capsule, Partial fill upon patient request Start Date: 06/01/20 Status: OrderedPen [place], 31 G x 5 mm BD Ultra [...] 1 Refills, Soft Stop, 05/19/20 16:27:00 EDT, [facility]/pharmacy #[id number], 160.02, cm, 05/09/20 [...] 5 Refills, Soft Stop, 12/16/19 15:45:00 EDT, [facility]/pharmacy #[id number], 160.02, cm, 11/02/19 15:34:00 EDT, [...] ROM of neck(Confirmed) Active Diabetes mellitus - 11/25/08 Active insulin(Confirmed)3 Diabetic neuropathy(Confirmed) Active Current use of insulin(Confirmed) Active Nephropathy, diabetic(Confirmed) Active Difficulty sleeping(Confirmed) Active Gout(Confirmed) Active History of fracture of Active finger(Confirmed) H/O urinary tract infection with 2009 Active sepsis, proteus(Confirmed) History of nephrolithiasis(Confirmed) Active HLD (hyperlipidemia)(Confirmed) Active Hypertension(Confirmed) Active Lumbosacral spondylosis without Active myelopathy(Confirmed) OA (osteoarthritis), Active cervical(Confirmed) Osteoporosis(Confirmed) Active *[facility] [phone] 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 50-70% bilaterally.3Patient's pricer is [facility] and patient sees Dr. Gume Mart Social History Social History Type Response Tobacco Other: last cigarette 0. Sex
--- OUTSIDE RECORDS SUMMARY | 2022-06-09 08:58 | XMS_ITS | Continuity of Care Document ---
:1950 Author Organization [address], [address] [place] [address]- Care Team Providers Name Role Phone Ranjeet Rushing MD Primary Care Physician [place]counter [facility] [place](s): 12/01/20 - 12/31/[address], [address] [place] [address]- Allergies, Adverse Reactions, Alerts Substance Reaction Severity [...] (oldterm)11 07/19/08 Given 1Result Comment: [05/28/2017] [facility]: [id number] History: [id number] Note: VIS GIVEN-DATED Admin Note: vis [id number] Note: VIS [id number] Note: VIS-[id number] History: [facility] [id number] History: [facility] [id number] Comment: [10/17/2015] PER NICO AT [id number] Note: VIS [id number] Note: VIS GIVEN Medications 12 inch Grab Bars 12 inch Grab Bars, See Instructions, # 2 each, Refills 0, Tot. Refills 0, Maintenance, Grab bars : Length 12inches Use as directed DX Unsteady Gait ICD10 R26.81 HT: 5'3 Weight 162lbs Length of need Lifetime, 07/07/20 11:45:00 EST, Supply Start Date: 07/07/20 Status: OrderedADMIT TO [facility] ADMIT TO [facility], See Instructions, # 1 each, Refills 0, Tot. Refills 0, Maintenance, FAX [phone] ADMIT TO [facility], PT, OT. 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 Start Date: 10/17/20 Status: Orderedalbuterol 90 mcg/inh inhalation powder 2 puffs, Inhalation, Every 6 hours, PRN as needed, # 1 each, 11 Refills, Maintenance, 05/05/20 14:02:00 EDT, Powder, [facility]/pharmacy #[id number], 2 puffs Inhalation Every 6 hours,PRN:as needed, 160.02, cm, 05/05/20 13:43:00 EDT, Height, 73.6, kg, 04/18/20 10:1... Start Date: 05/05/20 Status: Orderedalendronate 70 mg oral tablet 1 tablet, By Mouth, Every week, # 12 tablet, 0 Refills, Maintenance, 10/30/20 7:29:00 EST, [facility] [id number], 160, cm, 10/20/20 15:01:00 EST, Height, 77.5, kg, 10/05/20 14:31:00 EST, Dry Weight Start Date: 10/30/20 Status: Orderedallopurinol 300 mg oral tablet 300 mg, 1, tablet, By Mouth, Daily, # 90 tablet, Refills 0, Tot. Refills 0, Maintenance, 10/28/20 12:31:00 EST, Route to Pharmacy Electronically, [facility]/pharmacy #[id number], 160, cm, 10/20/20 15:01:00 EST, Height, [...] 1 Refills, Maintenance, 09/28/20 11:53:00 EST, Tablet, [facility]/pharmacy #[id number], 160, cm, 09/12/20 14:03:00 EST, Height, [...] 07/06/20 15:48:00 EST, Route to Pharmacy Electronically, [facility]/pharmacy #[id number], 160.02, cm, 07/03/20 14:54:00 EST,Height, 73.6, kg, 04/18/20 10:19:00 EDT, Dry Weight Start Date: 07/06/20 Stop Date: 10/04/20 Status: OrderedHumira 40 mg subcutaneous solution See Instructions, 40 mg [id number], 0 Refills, Maintenance, 10/23/20 13:46:00 EST, Partial fill upon patient request if the prescription is for a schedule II opioid drug. Start Date: 10/23/20 Status: OrderedLyrica 150 mg oral capsule 1 capsule = 150 mg, By Mouth, 2 times a day, DOSAGE INCREASE, # 60 capsule, 3 Refills, Maintenance, 07/04/20 11:46:00 EST, Capsule, [facility]/pharmacy #[id number], 160.02, cm, 07/03/20 14:54:00 EST, Height, 73.6, kg, 04/18/20 10:19:00 EDT, Dry Weight Start Date: 07/04/20 Status: Orderedmagnesium oxide 400 mg (240 mg elemental magnesium) oral tablet 1 tablet, By Mouth, Daily, # 90 tablet, 0 Refills, Acute, 09/20/20 12:20:00 EST, [facility] STORE 113[facility], 90, TAKE 1 TABLET BY MOUTH DAILY, 160, cm, 09/12/20 14:03:00 EST, Height, 71.3, kg, 08/08/20 7:00:00 EST, Dry Weight Start Date: 09/20/20 Status: OrderedMelatonin 3 mg oral tablet 1 tablet = 3 mg, By Mouth, Daily at bedtime, PRN for insomnia, [facility], # 90 tablet, 3 Refills, Maintenance, 04/24/20 9:53:00 EDT, Tablet, [facility]/pharmacy #[id number], 1 tablet By Mouth Daily at [...] if th... Start Date: 08/30/20 Status: OrderedPen [place], 31 G x 5 mm BD Ultra [...] 06/28/20 9:31:00 EST, Route to Pharmacy Electronically, [facility]/pharmacy #[id number], 160.02, cm, 06/01/20 11:03:00 EDT, Height, 73.6, kg, 04/18/20 10:19:00 EDT,... Start Date: 06/28/20 Status: Orderedspironolactone 100 mg oral tablet 100 mg, 1, tablet, By Mouth, Daily, # 90 tablet, Refills 0, Tot. Refills 0, Maintenance, 11/29/20 7:42:00 EDT, Route to Pharmacy Electronically, [facility]/pharmacy #[id number], Partial fill upon patient request ifthe [...] 1 Refills, Maintenance, 09/25/20 7:44:00 EST, Capsule, [facility]/pharmacy #[id number], resent from 08/14, 160, cm, 09/12/20 14:03:00 EST, Height, 71.3, kg, 08/08/20 7:00:00 EST, Dry Weight Start Date: 09/25/20 Status: OrderedWellbutrin XL 300 mg/24 hours oral tablet, extended release 1 tablet = 300 mg, By Mouth, Daily, DOSAGE INCREASE, # 30 tablet, 5 Refills, Maintenance, 07/03/20 15:20:00 EST, ER Tablet, [facility]/pharmacy #[id number], 160.02, cm, 07/03/20 14:54:00 EST, Height, 73.6, kg, 04/18/20 10:19:00 EDT, Dry Weight Start Date: 07/03/20 Status: OrderedZoloft 50 mg oral tablet 1 tablet = 50 mg, By Mouth, Daily, DOSAGE INCREASE, # 30 tablet, 0 Refills, Maintenance, 10/30/20 17:12:00 EST, Tablet, 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 Gume Mart Social History Social History Type Response Tobacco Other: last cigarette 0. Sex
--- OUTSIDE RECORDS SUMMARY | 2022-06-09 08:58 | XMS_ITS | Encounter Summary ---
:1950 Author Care Team Providers Name Role Phone Ranjeet Rusihng MD Primary Care Provider [phone] Reason for Visit Right red eye R red eye, not painful, rubbed it yester day and then noticed it was red. Assessment and Plan Assessment Note Patient was seen and evaluated. She has been dealing with constipation recently and daughter admits to her straining with bowel movements. Patient is convinced the eye redness is secondary to scratching it the other day. She has not blood thinner and has no vis ual changes or pain associated Daughter will continue to monitor and fo llow closely with primary care provider in regards to her current issue as well as chronic back pain She denies any new or worsening urine sy mptoms or any severe abdominal pain, chest pain or shortness of breath. 1. Subconjunctival hemorrhage of right eye ? subconjunctival hemorrhage: care inst ructions Discussion Note: None recorded. Plan of Care Reminders Provider Appointments None recorded. ? ? Lab None recorded. ? ? Referral None recorded. ? ? Procedures None recorded. ? ? Surgeries None recorded. ? ? Imaging None recorded. ? ? Medications Name Start Date ? ? albuterol sulfate HFA 90 mcg/actuation aerosol inhaler ? TAKE 2 PUFF INHALATIONS EVERY 4-6 HOURS NEEDED FOR SHORTNESS OF BREATH/WHEEZING alendronate 70 mg tablet ? TAKE 1 TABLET BY MOUTH EVERY WEEK allopurinol 300 mg tablet ? TAKE 1 TABLET BY MOUTH EVERY DAY bupropion HCl XL 300 mg 24 hr tablet, extended release ? TAKE 1 TABLET BY MOUTH EVERY DAY celecoxib 200 mg capsule ? Chantix Continuing Month Box 1 mg tablet ? colchicine 0.6 mg tablet ? TAKE 1 TABLET BY MOUTH EVERY DAY FOR 7 DAYS cyanocobalamin (vit B-12) 500 mcg tablet ? TAKE 1 TABLET BY MOUTH EVERY DAY diclofenac 1 % topical gel ? APPLY 2-3 GRAMS TO AREA 3 TIMES A DAY fluvoxamine 100 mg tablet ? TAKE 1 TABLET BY MOUTH TWICE A DAY fluvoxamine 50 mg tablet ? TAKE 1 TABLET BY MOUTH IN THE MORNING AND TAKE 2 TABL ETS BY MOUTH AT BEDTIME. folic acid 1 mg tablet ? furosemide 40 mg tablet ? TAKE 1 TABLET BY MOUTH TWICE A DAY gabapentin 300 mg capsule ? Humalog U-100 Insulin 100 unit/mL subcutaneous solutio n ? Humira Pen Tulbsngkr-Bgywupl-Vfyp Hid Sup Start 40 mg/ 0.8 mL subcut kt ? Humira(CF) Pen 40 mg/0.4 mL subcutaneous kit ? hydrocortisone 2.5 % topical cream ? APPLY A THIN FILM TO THE AFFECTED SKIN AND RUB IN GENTLY AND COMPLETELY 3 TIMES A DAY hydroxyzine HCl 25 mg tablet ? lidocaine 5 % topical patch ? APPLY 1 PATCH TOPICALLY DAILY magnesium oxide 400 mg (241.3 mg magnesium) tablet ? TAKE 1 TABLET BY MOUTH EVERY DAY melatonin 3 mg tablet ? TAKE 1 TABLET BY MOUTH AT BEDTIME NEEDED mupirocin 2 % topical ointment ? USE 1 APPLICATION TOPICALLY 2 TIMES A DAY FOR 14 DAYS , APPLY TO AFFECTED SKIN nicotine (polacrilex) 2 mg gum ? CHEW 1 PIECE OF GUM EVERY 2 HOURS NEEDED nicotine 14 mg/24 hr daily transdermal patch ? APPLY 1 PATCH TOPICALLY DAILY Novolog Flexpen U-100 Insulin aspart 100 unit/mL (3 mL ) subcutaneous ? PLEASE SEE ATTACHED FOR DETAILED DIRECTIONS prednisone 20 mg tablet ? TAKE 2 TABLETS (40 MG) BY MOUTH ONCE DAILY pregabalin 150 mg capsule ? TAKE 1 CAPSULE BY MOUTH TWICE A DAY Purelax 17 gram/dose oral powder ? MIX17 GRAMS IN GLASS OF WATER AND DRINK ORALLY 2 TIMES A DAY NEEDED FOR CONSTIPATION sertraline 100 mg tablet ? TAKE 2 TABLETS BY MOUTH EVERY DAY sertraline 50 mg tablet ? TAKE 1 TABLET BY MOUTH EVERY DAY (TAPERING SCHEDULE) simvastatin 10 mg tablet ? TAKE 1 TABLET BY MOUTH EVERYDAY AT BEDTIME Skyrizi 150 mg/mL subcutaneous pen injector ? spironolactone 100 mg tablet ? TAKE 1 TABLET BY MOUTH EVERY DAY tizanidine 2 mg tablet ? tramadol 50 mg tablet ? TAKE 1-2 TABLETS BY MOUTH EVERY 6 HOURS SCHEDULE FOLLOW VISIT, NEEDED FOR PAIN trazodone 50 mg tablet ? Trelegy Ellipta 100 mcg-62.5 mcg-25 mcg powder for inh alation ? INHALE 1 PUFF BY MOUTH EVERY DAY Tresiba FlexTouch U-200 insulin 200 unit/mL (3 mL) sub cutaneous pen ? INJECT SUBCUTANEOUSLY TAKING 65 UNITS DAILY, MAX DOSE 140 UNITS Victoza 3-Toby 0.6 mg/0.1 mL (18 mg/3 mL) subcutaneous pen injector ? INJECT 1.8 MG UNDER THE SKIN ONCE DAILY Vitamin D3 25 mcg (1,000 unit) capsule ? TAKE 1 CAPSULE BY MOUTH EVERY DAY. Medications Administered None recorded. Vitals Blood Pressure 133/78 mm[Hg] Results Lab Results None recorded. Allergies Code Code System Name Reaction Severity Onset [id number] RxNorm Ambien ? ? ? 347687 RxNorm Benadryl ? ? ? 457317 RxNorm LAC-HYDRIN ? ? ? 6746688 RxNorm Latex ? ? ? Problems Name Status Onset Date Source ? Depressive Disorder Active 09/22/2019 ? Edema Active 09/22/2019 ? Procedures Date Name Performed by ? 08/25/1998 Bone Fusion Information not avai lable ? Procedure on Neck Information not avai lable ? Section Information not avai lable Notes: X3 Vaccine List Vaccine Type COVID-19, mRNA, LNP-S, PF, 30 mcg/0.3 mL dose ([facility] [place]) 09/03/2020 09/24/2020 influenza, high dose seasonal 05/05/2015 05/31/2016 06/17/2019 influenza, seasonal, injectable 03/25/2010 06/11/2011 04/28/2012 05/05/2013 05/29/2014 pneumococcal polysaccharide PPV23 10/05/2013 Td (adult) preservative free 03/25/2017 Tdap 08/08/2010 zoster recombinant 02/09/2018 05/10/2020 Social History Tobacco Smoking Status Current Some Day Smoker What is your level of alcohol consumption? None Which illicit or recreational drugs have you used? none Functional Status Unknown. Past Encounters 04/17/2022 Subconjunctival Hemorrhage of Right Eye CARMEN [place]: [address], [place] [address], Ph. History of Present Illness ? Red Eye Reported By: Patient Notes: <div>Patient is a 72-year-ol d female who presents with her daughter for right eye redness</div><div> Patient is not on blood thinners, she lives by herself and daughter help s with care</div><div>Daughter picked her up for an appointment and di d not notice any issue with her eye</div><div>Patient said w danii she was at the appointment she felt across to her lateral right eye and scratched it</div><div>Upon going back to the car the daughter noticed her right eye was red</div><div>There is no kn own fall or injury. Patient denies any falls at home</div><div>She denies any visual changes and has no associated pain, 0-10</div><div>Jaimee r thinks that the swelling around the eye has improved since yesterday </div><div>
</div><div>Patient's only complaint is that she has ch ronic ongoing right-sided lower back pain for the last 4 weeks</div><d iv>They have appointment with pain management but are waiting f or approval with insurance</div><div>Primary care did blood work and a ur inalysis which daughter said showed no acute abnormality last week</div&g t;<div>They are following up with primary care for this issue and dav ent denies any blood per rectum or hematuria</div><div>No assoc iated abdominal pain, chest pain or shortness of breath</div><di v>She has constipation which was relieved yesterday </div> Review of Systems ? Comprehensive Adult Problem ROS Reported By: Patient Constitutional: Constitutional: no fever, no fatigue Eyes: Eyes: no eye pain, no blurry vision, no eye itchiness, no eye swelling, no eye discharge, normal movement, eye redness Neurological symptoms: Neuro: no headache Allergic/Immunologic: Allergy/Immunologic: no snee zing, no runny nose Physical Exam ? Notes: <div>Constitutional: Patient non-toxic appearing, in no acute distress
Skin: Appearing well perfused without erythema/rash/jaundice from neck up</div><div>No posteri or back or flank ecchymosis, erythema or rash
Eyes: EOMI, PERRL. + R eye bloody conjunctivae. No FB under eyelids. No hyphema. </div><div>Neck: No c-spine tenderness
Respiratory: No respiratory distress or stri christine. No accessory muscle use
Musculoskeletal: Sitting. Tenderness to palpa tion of right lumbar paravertebral muscles without CVA tenderness on exam.
Neurological: Alert. No facial droop or aphasia.
Psych: Normal mood and a ffect</div>
--- OUTSIDE RECORDS SUMMARY | 2022-06-09 08:58 | XMS_ITS | Continuity of Care Document ---
:1950 Author Organization [facility] Address [address] [place] [address]- Care Team Providers Name Role Phone Ranjeet Rushing MD Primary Care Physician Encounter [facility] Date(s): 06/29/21 - 07/29/21 [facility] [address] [place] [id number] Attending Physician: Evans Brock Admitting Physician: AdmEvans blackwood Referring Physician: Admtr, Evans Allergies, Adverse Reactions, Alerts Substance Reaction Severity [...] 1Result Comment: [05/28/2017] [facility]: [id number] History: [id number] Note: VIS GIVEN-DATED Admin Note: vis [id number] Note: VIS glznl2Rbvgb Note: VIS-[id number] History: [facility] [id number] History: [facility] [id number] Comment: [10/17/2015] PER NICO AT [id number] Note: VIS [id number] Note: VIS GIVEN Medications 12 inch Grab [...] 11 Refills, Maintenance, 05/05/20 14:02:00 EDT, Powder, [facility]/pharmacy #[id number], 2 puffs Inhalation Every 6 hours,PRN:as needed, 160.02, cm, 05/05/20 13:43:00 EDT, Height, 73.6, kg, 04/18/20 10:1... Start Date: 05/05/20 Status: Orderedalendronate 70 mg oral tablet 1 tablet, By Mouth, Every week, # 12 tablet, 6 Refills, Maintenance, 01/09/21 16:07:00 EDT, [facility] STORE [id number], 160, cm, 12/25/20 14:20:00 EDT, Height, 77.5, kg, 10/05/20 14:31:00 EST, Dry Weight Start Date: 01/09/21 Status: Orderedallopurinol 300 mg oral tablet 1, tablet, By Mouth, Daily, # 90 tablet, Refills 1, Route to Pharmacy Electronically, [facility], 160, cm, 06/19/21 13:57:00 EDT, Height, 77.27, [...] Refills, Maintenance, 03/12/21 10:51:00 EDT, [facility], 160, cm, 02/27/21 13:50:00 EDT, Height, 79.6, [...] 02/06/21 9:05:00 EDT, Route to Pharmacy Electronically, [facility]/pharmacy #[id number], 160, cm, 01/25/21 14:11:00 EDT, Height, 77.5, kg, 10/05/20 14:31:00 EST, Dry Weight Start Date: 02/06/21 Stop Date: 08/05/21 Status: OrderedLyrica 150 mg oral capsule 1 capsule = 150 mg, By Mouth, 2 times a day, DOSAGE INCREASE, # 60 capsule, 3 Refills, Maintenance, 07/09/21 14:12:00 EST, Capsule, [facility]/pharmacy #[id number], 160, cm, 06/19/21 13:57:00 EDT, Height, 77.27, kg, 03/24/21 20:58:00 EDT, Dry Weight Start Date: 07/09/21 Status: Orderedmagnesium oxide 400 mg (240 mg elemental magnesium) oral tablet 1 tablet, By Mouth, Daily, # 90 tablet, 0 Refills, Acute, 09/20/20 12:20:00 EST, [facility], 90, TAKE 1 TABLET BY MOUTH DAILY, 160, cm, 09/12/20 14:03:00 EST, Height, 71.3, kg, 08/08/20 7:00:00 EST, Dry Weight Start Date: 09/20/20 Status: Orderedmagnesium oxide 400 mg oral tablet 1 tablet = 400 mg, By Mouth, Daily, # 100 tablet, 2 Refills, Maintenance, 06/05/21 11:32:00 EDT, Tablet, [facility]/pharmacy #[id number], Partial fill upon patient request [...] EDT, Injec... Start Date: 06/11/21 Status: OrderedPen [place], 31 G x 5 mm BD Ultra [...] 01/09/21 15:06:00 EDT, Route to Pharmacy Electronically, [facility]/pharmacy #[id number], 160, cm, 12/25/20 14:20:00 EDT, Height, 77.5, kg, 10/05/20 14:31:00 EST, DrJhoan.. Start Date: 01/09/21 Status: Orderedspironolactone 100 mg oral tablet 100 mg, 1, tablet, By Mouth, Daily, # 90 tablet, Refills 1, Tot. Refills 1, Maintenance, 07/23/21 13:10:00 EST, Route to Pharmacy Electronically, [facility]/pharmacy #[id number], Partial fill upon patient request if the prescription is for a schedule II opioid thomas... Start Date: 07/23/21 Stop Date: 01/19/22 Status: OrderedtraMADol 50 mg oral tablet See Instructions, TAKE 1-2 TABLETS BY MOUTH EVERY 6 HOURS SCHEDULE FOLLOW VISIT, NEEDED FOR PAIN,# 240 tablet, 5 Refills, Maintenance, 05/31/21 9:52:00 EDT, [facility]/pharmacy #[id number], 160, cm, 05/21/21 11:03:00 EDT, Height, [...] 3 Refills, Maintenance, 04/19/21 11:35:00 EDT, Powder, [facility]/pharmacy #[id number], Partial fill upon patient request [...] 11 Refills, Soft Stop, 07/26/21 11:05:00 EST, [facility]/pharmacy #[id number], 160, cm, 12/02/21 10:45:00 EST, Height,77.27, kg, 03/24/21 20:58:00 EDT, [...] # 9 Unknown, 2 Refills, [facility], 160, cm, 06/19/21 13:57:00 EDT, Height, 77.27, kg, 03/24/21 20:58:00 EDT, Dry Weight Start Date: 06/23/21 Status: OrderedVitamin D3 1000 intl units oral capsule 1 capsule = 1,000 International_Units, By Mouth, Daily, # 90 capsule, 1 Refills, Maintenance, 09/25/20 7:44:00 EST, Capsule, [facility]/pharmacy #[id number], resent from 08/14, 160, cm, 09/12/20 [...] of colon(Confirmed)1 Active Anxiety(Confirmed) Active Carpal tunnel(Confirmed) 8/21/08 Active Recurrent cellulitis of lower Active leg(Confirmed) [...] Active *[facility] [phone] 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 Gume Mart Social History Social History Type Response Tobacco Other: last cigarette 0. Sex
--- OUTSIDE RECORDS SUMMARY | 2022-06-09 08:58 | XMS_ITS | Continuity of Care Document ---
:1950 Author Organization [facility] Address [address] [place] [address]- Care Team Providers Name Role Phone Aarti SUTTON, Jose Person Primary Care Physician Encounter [facility] Date(s): 08/30/20 - 08/30/[address] [address]- Encounter Diagnosis Anemia (Final) - 08/30/20 Hypotension (Final) - 08/30/20 Discharge Disposition: A-D/C Home Attending Physician: Uche Rodriguez MD Admitting Physician: Uche Rodriguez MD Referring Physician: Not on Staff, Referring [...] 07/19/08 Given 1Result Comment: [05/28/2017] HD [facility]: [id number] History: [id number] Note: VIS GIVEN-DATED Admin Note: vis [id number] Note: VIS uxcuv2Gwppv Note: VIS-[id number] History: [facility] [id number] History: [facility] [id number] Comment: [10/17/2015] PER NICO AT [id number] Note: VIS [id number] Note: VIS GIVEN Medications 12 inch Grab [...] 07/06/20 15:50:00 EST, Route to Pharmacy Electronically, [facility]/pharmacy #[id number], 160.02, cm, 07/03/20 14:54:00 EST, Height, 73.6, kg, 04/18/20 10:19:00 EDT, Dry Weight Start Date: 07/06/20 Stop Date: 10/04/20 Status: OrderedBACK BRACE BACK BRACE, See Instructions, # 1 each, Refills 0, Tot. Refills 0, Maintenance, DX BACK PAIN M54.9 DANTE LIFETIME HT 5'3 WT 182 LB, 11/29/16 14:35:27, Compound Start Date: 07/23/16 Status: Orderedbisacodyl [...] 0 Refills, Maintenance, 02/11/20 13:33:00 EDT, Tablet, [facility]/pharmacy #[id number], 160.02, cm, 02/11/20 13:03:00 EDT, Height, [...] 07/06/20 15:48:00 EST, Route to Pharmacy Electronically, [facility]/pharmacy #[id number], 160.02, cm, 07/03/20 14:54:00 EST,Height, 73.6, [...] 3 Refills, Maintenance, 07/04/20 11:46:00 EST, Capsule, [facility]/pharmacy #[id number], 160.02, cm, 07/03/20 14:54:00 EST, Height, [...] Maintenance, 04/24/20 9:53:00 EDT, Tablet, [facility]/pharmacy #[id number], 1 tablet [...] patient request Start Date: 08/30/20 Status: OrderedPen [place], 31 G x 5 [...] 06/28/20 9:31:00 EST, Route to Pharmacy Electronically, [facility]/pharmacy #[id number], 160.02, cm, 06/01/20 11:03:00 EDT, Height, 73.6, [...] Refills, Maintenance, 07/03/20 15:20:00 EST, ER Tablet, [facility]/pharmacy #[id number], 160.02, cm, 07/03/20 14:54:00 EST, Height, [...] cervical(Confirmed) Osteoporosis(Confirmed) Active *[facility] [phone] 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 50-70% bilaterally.3Patient's short piece handler is [facility] and patient sees Dr. Gume Mart Vital Signs Most recent to oldest [Reference Range]: 1 Oxygen Saturation [94-100 %] 96 % (08/30/20 11:35 AM) Pulse Rate [55-90 bpm] 85 bpm (08/30/20 11:35 AM) Blood Pressure [90-138/55-84 mm Hg] 108/65 mm Hg (08/30/20 11:35 AM) Respiratory Rate [16-30 br/min] 19 br/min (08/30/20 11:35 AM) Temperature [96.8-100.4 DegF] 98 DegF (08/30/20 11:35 AM) Mode of Delivery (Oxygen) Room air (08/30/20 11:35 AM) Blood pressure sites Arm, left (08/30/20 11:35 AM) Temperature Route Oral (08/30/20 11:35 AM) Social History Social History Type Response Tobacco Other: last cigarette 0. Sex
--- OUTSIDE RECORDS SUMMARY | 2022-06-09 08:58 | XMS_ITS | Continuity of Care Document ---
:1950 Author Organization [facility] Address [address] [place] [address], [address] [place] [address]- Care Team Providers Name Role Phone Kristan SUTTON, Ranjeet Beatty Primary Care Physician Encounter [facility] Date(s): 10/03/20 - 11/02/[address], [address] [place], [place] [address] Allergies, Adverse Reactions, Alerts Substance [...] 07/19/08 Given 1Result Comment: [05/28/2017] HD [facility]: [id number] History: [id number] Note: VIS GIVEN-DATED Admin Note: vis [id number] Note: VIS oqgdt2Kivma Note: VIS-[id number] History: [facility] [id number] History: [facility] DEANGELO Gray Comment: [10/17/2015] PER NICO AT [id number] Note: VIS [id number] Note: VIS GIVEN Medications 12 inch Grab Bars 12 inch Grab Bars, See Instructions, # 2 each, Refills 0, Tot. Refills 0, Maintenance, Grab bars : Length 12inches Use as directed DX Unsteady Gait ICD10 R26.81 HT: 5'3 Weight 162lbs Length of need Lifetime, 07/07/20 11:45:00 EST, Supply Start Date: 07/07/20 Status: OrderedADMIT TO [facility] ADMIT TO [facility], See Instructions, # 1 each, Refills 0, Tot. Refills 0, Maintenance, FAX [phone] ADMIT TO CORRECTION, PT, OT. PROFESSOR OF FORESTRY AND LAND MOBILE RADIO TECHNICIAN IF NEEDED DIAGNOSIS: Cervical radiculopathy at C6 [...] tablet, 0 Refills, Maintenance, 10/30/20 7:29:00 EST, [facility] [id number], 160, cm, 10/20/20 15:01:00 EST, Height, 77.5, kg, 10/05/20 14:31:00 EST, Dry Weight Start Date: 10/30/20 Status: Orderedallopurinol 300 mg oral tablet 300 mg, 1, tablet, By Mouth, Daily, # 90 tablet, Refills 0, Tot. Refills 0, Maintenance, 10/28/20 12:31:00 EST, Route to Pharmacy Electronically, [facility]/pharmacy #[id number], 160, cm, 10/20/20 15:01:00 [...] 1 Refills, Maintenance, 09/28/20 11:53:00 EST, Tablet, [facility]/pharmacy #[id number], 160, cm, 09/12/20 14:03:00 [...] 07/06/20 15:48:00 EST, Route to Pharmacy Electronically, [facility]/pharmacy #[id number], 160.02, cm, 07/03/20 14:54:00 EST,Height, 73.6, kg, 04/18/20 10:19:00 EDT, Dry Weight Start Date: 07/06/20 Stop Date: 10/04/20 Status: OrderedHumira 40 mg subcutaneous solution See Instructions, 40 mg [id number], 0 Refills, Maintenance, 10/23/20 13:46:00 EST, Partial fill upon patient request if the prescription is for a schedule II opioid drug. Start Date: 10/23/20 Status: OrderedLyrica 150 mg oral capsule 1 capsule = 150 mg, By Mouth, 2 times a day, DOSAGE INCREASE, # 60 capsule, 3 Refills, Maintenance, 07/04/20 11:46:00 EST, Capsule, [facility]/pharmacy #[id number], 160.02, cm, 07/03/20 14:54:00 EST, Height, 73.6, kg, 04/18/20 10:19:00 EDT, Dry Weight Start Date: 07/04/20 Status: Orderedmagnesium oxide 400 mg (240 mg elemental magnesium) oral tablet 1 tablet, By Mouth, Daily, # 90 tablet, 0 Refills, Acute, 09/20/20 12:20:00 EST, [facility] STORE [facility], 90, TAKE 1 TABLET BY MOUTH DAILY, [...] 1 tablet By Mouth Daily at bedtime,PRN:for insomnia,Instr:[employer] brand, 160.02, cm, 04/18/20... Start Date: 04/24/20 [...] if th... 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 50-70% bilaterally.3Patient's human relations manager is [facility] and patient sees Dr. Gume Mart Social History Social History Type Response Tobacco Other: last cigarette 0. Sex
--- OUTSIDE RECORDS SUMMARY | 2022-06-09 08:58 | XMS_ITS | Continuity of Care Document ---
:1950 Author Organization [facility] [address] [place] [address]- Care Team Providers Name Role Phone Ranjeet Del Rosario MD Primary Care Physician Encounter [facility] Date(s): 08/06/19 - 08/16/19 [facility] [address] [place] [address] Drive [address] [place] [address]- [facility] Attending Physician: AdmEvans blackwood Admitting Physician: Admtr, [...] 1Result Comment: [05/28/2017] [facility]: [id number] History: [id number] Note: VIS GIVEN-DATED Admin Note: vis dvomi1Hhaof Note: VIS ddyij3Erjbm Note: VIS-[id number] History: [facility] [id number] History: [facility] DEANGELO Gray Comment: [10/17/2015] PER NICO AT [id number] Note: VIS [id number] Note: VIS GIVEN Medications albuterol 90 mcg/inh [...] TAKE 1 TABLET BY MOUTH EVERY DAY, [facility]/pharmacy #[id number] Start Date: 06/09/19 Status: OrderedAugmentin 875 mg-125 mg oral tablet 1 tablet, By Mouth, Every 12 hours, for 7 days, # 14 tablet, 0 Refills, Acute 08/23/19 13:14:00 EST,08/16/19 13:14:00 EST, Tablet, [facility]/pharmacy #0693, 160.02, cm, 08/16/19 12:59:00 EST, Height, 81.6, kg, 07/27/19 14:52:00 EST, Dry Weight Start Date: 08/16/19 Stop Date: 08/23/19 Status: OrderedBACK BRACE BACK BRACE, See Instructions, [...] 0 Refills, Maintenance, 08/16/19 13:14:00 EST, Tablet, [facility]/pharmacy #0693, 1 tablet By Mouth [...] each, 0 Refills, Maintenance, 01/01/19 14:36:12 EDT, [place], 2 sprays Nares, Both Daily in AM [...] 1 TABLET BY MOUTH TWICE A DAY, [facility]/pharmacy #[id number] Start Date: 06/02/19 Status: Orderedgabapentin 300 mg oral capsule See Instructions, # 90 capsule, Refills 5 Tot. Refills 5, TAKE 1 CAPSULE BY MOUTH THREE TIMES A DAY,[id number] Start Date: 06/30/19 Status: Orderedmagnesium oxide 400 mg oral tablet 1 tablet = 400 mg, By Mouth, Daily, PER RAJNI EMERY BILINGUAL SPEECH LANGUAGE PATHOLOGIST-C, # 90 tablet, 3 Refills, Maintenance, 07/20/19 [...] Call PCP... Start Date: 10/29/17 Status: OrderedPen [place], 31 G x 5 mm BD Ultra Fine III See Instructions, # 200 each, Refills 5, Tot. Refills 5, Maintenance, To inject insulin BID for DM II E11.9 PER RAJNI EMERY BILINGUAL SPEECH LANGUAGE PATHOLOGIST-C, 12/28/18 12:38:05 EDT, SHORT, Compound Start Date: 12/28/18 Status: Orderedsimvastatin 10 mg oral tablet 10 mg, 1, tablet, By Mouth, Daily at bedtime, # 90 tablet, Refills 3, Tot. Refills 3, Maintenance, 07/20/19 16:14:12 EST, Route to Pharmacy Electronically, [id number], [facility]/pharmacy #[id number] Start Date: 07/20/19 Status: Orderedspironolactone 100 mg oral tablet See Instructions, # 30 tablet, Refills 5 Tot. Refills 5, TAKE 1 TABLET BY MOUTH EVERY DAY, [facility]/pharmacy #[id number] Start Date: 06/23/19 Status: OrderedtraMADol 50 mg oral tablet See Instructions, TAKE 1 TO 2 TABLETS BY MOUTH EVERY 6 HOURS, # 240 tablet, 3 Refills, Soft Stop, 04/09/19 16:34:00 EDT Start Date: 04/09/19 Status: OrderedTrelegy Ellipta inhalation powder 1 puffs, Inhalation, Daily, at the same time every day, # 60 each, 0 Refills, Maintenance, 12/30/18 14:27:13 EDT, Powder Start Date: 12/30/18 Status: OrderedTresiba FlexTouch 200 units/mL subcutaneous solution See Instructions, # 9 Unknown, Refills 5 Tot. 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 50-70% bilaterally.3Patient's capsule inspector is [facility] and patient sees Dr. Gume Mart Social History Social History Type Response Smoking Status Current some day smoker; Typ e: Cigarettes; Other: less than 1/2 pack a day; Tobacco use times per day: 1/2 pack a day; entered on: 02/19/17 Sex
--- OUTSIDE RECORDS SUMMARY | 2022-06-09 08:58 | XMS_ITS | Encounter Summary ---
:1950 Author Care Team Providers Name Role Phone Ranjeet Rushing MD Primary Care Provider [phone] Reason for Visit ankle injury; Left ankle pain pt. c/o L ankle pain, L knee pain, yared ed and fell Xtoday Assessment and Plan Assessment Note Yoel on foot with a surgical shoe. [place] te leg, ice, Tylenol dosed per bottle as needed for pain. If no improvement in th e next for 5 days follow-up with orthopedics. Follow-up here as needed 1. Pain of left knee joint ? XR, knee, 3 view 2. Pain of left ankle joint ? XR, ankle, 3 or more view 3. Sprain of left ankle 4. Sprain of left knee Discussion Note: None recorded.Patient educational handouts: No information available. Plan of Care Reminders Provider Appointments None recorded. ? ? Lab None recorded. ? ? Referral None recorded. ? ? Procedures None recorded. ? ? Surgeries None recorded. ? ? Imaging XR, Knee, 3 View 05/31/2022 [facility] ? XR, Ankle, 3 or More View 05/31/2022 [facility] Medications Name Start Date ? ? albuterol [...] unit/mL subcutaneous solutio n ? Humira Pen Dqrbqhcrk-Zhwegio-Huby Hid Sup Start 40 mg/ 0.8 mL [...] Medications Administered None recorded. Vitals Blood Pressure 134/71 mm[Hg] Results Lab Results None recorded. Allergies Code Code System Name Reaction Severity Onset 771714 RxNorm Ambien ? ? ? 942382 RxNorm Benadryl ? ? ? 205297 RxNorm LAC-HYDRIN ? ? ? 6741200 RxNorm Latex ? ? ? Problems Name Status Onset Date Source ? Depressive Disorder Active 09/22/2019 ? Edema Active 09/22/2019 ? Procedures Date Name Performed by ? 08/25/1998 Bone Fusion Information not avai lable ? Procedure on Neck Information not avai lable ? Section Information not avai lable Notes: X3 05/31/2022 [facility] [address] [place] [address] (Work Place) 05/31/2022 XR, Ankle, 3 or More View [facility] [address] [place] [address] (Work Place) Vaccine List Vaccine Type COVID-19, mRNA, LNP-S, PF, 30 mcg/0.3 mL dose (CSS99) 09/03/2020 09/24/2020 influenza, high dose seasonal 05/05/2015 05/31/2016 06/17/2019 influenza, seasonal, injectable 03/25/2010 06/11/2011 04/28/2012 05/05/2013 05/29/2014 pneumococcal polysaccharide PPV23 10/05/2013 Td (adult) preservative free 03/25/2017 Tdap 08/08/2010 zoster recombinant 02/09/2018 05/10/2020 Social History Tobacco Smoking Status Current Some Day Smoker What is your level of alcohol consumption? None Which illicit or recreational drugs have you used? none Functional Status Unknown. Past Encounters 05/31/2022 Pain of Left Knee Joint; Pain of Left An kle Joint; Sprain of Left Ankle; Sprain of Left Knee Lo Shi, DIRECTOR SERVICE: Deshaun Goetz , [place] [address], Ph. History of Present Illness ? Knee Reported By: Patient HPI: Location: left. Quality: thr obbing. Severity: mild. Duration: 1 days. Timing: acute. Context: fall . Alleviating Factors: nothing helps. Aggravating Factors: cannot identify. Associated Symptoms: no weakness, no numbness, no tingling, no swelling, no redness, no warmth, no ecchymosis, no catching/lock ing, no popping/clicking, no buckling, no grinding, no instability, no radiation down leg, no drainage, no fever, no chills, no weight loss, n o change in bowel/bladder habits ? Ankle Reported By: Patient HPI: Location: left. Quality: thr obbing. Severity: mild. Duration: 1 days. Timing: acute. Context: fall . Alleviating Factors: nothing helps. Aggravating Factors: cannot identify. Associated Symptoms: no weakness, no numbness, no tingling, no swelling, no redness, no warmth, no ecchymosis, no catching/lock ing, no popping/clicking, no buckling, no grinding, no instability, no radiation down leg, no drainage, no fever, no chills, no weight loss, n o change in bowel/bladder habits, no tenderness to touch, no pain with motion Note: <div>Patient states she fell in her house yesterday now has some slight aching pain and some left ankle pain she states she did not lose consciousness or hit her head in the fall. The knee and the ankle are the only things that are bothering her. She came in in a wheelchair with an Yoel on her ankle.</div> Review of Systems: ROS as noted in the HPI Review of Systems ? Comprehensive Adult Problem ROS Reported By: Patient Constitutional: Constitutional: good appetit e, no fever, no fatigue Eyes: Eyes: no eye pain ENMT: ENMT: no ear pain, no sinus pressure, no congestion, no sore throat Respiratory: Respiratory: no cough, no wh eezing, normal respiration Gastrointestinal: GI: no difficulty swallowing , no abdominal pain, no nausea, no vomiting, no diarrhea Musculoskeletal: Musculoskeletal: soft tissue swelling, trauma Skin: Skin: pain Neurological symptoms: Neuro: no numbness, no weakn ess, no tingling, no burning, no shooting pain, no headache, no dizziness Endocrine: Endocrine: normal drinking, no temperature intolerance Allergic/Immunologic: Allergy/Immunologic: no snee zing, no runny nose Physical Exam ? Brief Knee Exam, Brief Ankle /Foot Exam Reported By: Patient Constitutional: General Appearance: healthy- appearing, normal body habitus, NAD. Orientation: oriented t o time, oriented to place, oriented to person. Mood and Affect: active and alert, normal mood, normal affect Gait and Station: Appearance: ; in w/c Cardiovascular System: Arterial Pulses Left: dorsal is pedis diminished, posterior tibialis diminished Knees: Inspection Left: normal axia l alignment, no mass, no induration, no warmth, no er ythema, no ecchymosis, no swelling. Skin Inspection Le ft: thin, abrasion. Varicosities Left: capillary refill test normal, varicosities. Bony Palpation Left: tenderness o f the superior pole patella, tenderness of the inferior p ole patella, tenderness of the anterior pole patella, tende rness of the posterior pole patella. Soft Tissue Palpati on Left: tenderness of the patellar tendon. Active Rang e of Motion Left: normal, flexion normal, extension normal, me dial rotation normal, lateral rotation normal, no pain wit h motion, no crepitus; diff exam patient is in a wheelchair. Passive Range of Motion Left: normal, flexion normal, exte nsion normal, medial rotation normal, lateral rotation nor mal, pain elicited by motion. Stability Left: no laxity, n o subluxation, no ligamentous instability Ankles and Feet: Inspection Left: no erythema , no induration, no edema, no warmth, no ecchymosis, no de formity, normal alignment. Bony Palpation of the Ankle/Foot Left: tenderness of the gutter ankle. Active Range of Motio n Left: dorsiflexion normal, plantar flexion normal, inve rsion normal, eversion normal, great toe flexion normal Notes: <div>xray neg </div>
--- OUTSIDE RECORDS SUMMARY | 2022-06-09 08:58 | XMS_ITS ---
:1950 Author Care Team Providers Name Role Phone ZENA DEL ROSARIO MD Primary Care Provider [phone] Allergies Code Code System Name Reaction Severity Status Onset 561592 RxNorm Ambien ? ? Active ? 663319 RxNorm Benadryl ? ? Active ? 740302 RxNorm LAC-HYDRIN ? ? Active ? 3466282 RxNorm Latex ? ? Active ? Medications Name Status Start Date Stop Date ? ? acetaminophen 300 mg-codeine 30 mg tablet Completed ? 05/31/2022 albuterol sulfate HFA 90 mcg/actuation aerosol inhaler Active ? Not available alendronate 70 mg tablet Active ? Not maria ines ilable TAKE 1 TABLET BY MOUTH EVERY WEEK allopurinol 300 mg tablet Active ? Not av ailable TAKE 1 TABLET BY MOUTH EVERY DAY amoxicillin 875 mg-potassium clavulanate 125 mg tablet Completed ? 09/22/2019 azithromycin 250 mg tablet Completed ? 09/22 BD AutoShield Duo Pen Needle 30 gauge x 11/07 Completed ? 08/12/2021 BD Ultra-Fine Mini Pen Needle 31 gauge x 316 Completed ? 08/12/2021 BD Ultra-Fine Short Pen Needle 31 gauge x 16 Completed ? 05/31/2022 USE TO INJECT INSULIN TWICE A DAY betamethasone dipropionate 0.05 % topical cream Active ? Not available bupropion HCl XL 150 mg 24 hr tablet, extended release Completed ? 02/25/2021 TAKE 1 TABLET BY MOUTH EVERY 24 HOURS. DO NOT CRUSH OR CHEW bupropion HCl XL 300 mg 24 hr tablet, extended release Active ? Not available TAKE 1 TABLET BY MOUTH EVERY DAY cefdinir 300 mg capsule Completed ? 05/31/20 TAKE 1 CAPSULE ORALLY 2 TIMES A DAY cefuroxime axetil 250 mg tablet Completed ? 05/31/2022 TAKE 1 TABLET BY MOUTH TWICE A DAY celecoxib 200 mg capsule Active ? Not maria ines ilable cephalexin 250 mg capsule Completed ? 2020 cephalexin 500 mg capsule Completed ? 2021 TAKE 1 CAPSULE BY MOUTH EVERY 12 HOURS FOR 10 DAYS Chantix Continuing Month Box 1 mg tablet Active ? Not available Chantix Starting Month Box 0.5 mg (11)-1 mg (42) tablets Complet ed ? 09/22/2019 in dose pack ciprofloxacin 250 mg tablet Completed ? 11/2020 colchicine 0.6 mg tablet Active ? Not maria ines ilable TAKE 1 TABLET BY MOUTH EVERY DAY FOR 7 DAYS cyanocobalamin (vit B-12) 500 mcg tablet Active ? Not available cyclobenzaprine 10 mg tablet Completed ? 11/2020 TAKE 1/2 TABLET BY MOUTH TWICE A DAY NEEDED cyclobenzaprine 5 mg tablet Completed ? 11/2020 diclofenac 1 % topical gel Active ? Not a vailable APPLY 2-3 GRAMS TO AREA 3 TIMES A DAY doxycycline hyclate 100 mg capsule Completed ? 08/12/2021 doxycycline hyclate 100 mg tablet Completed ? 08/12/2021 doxycycline monohydrate 100 mg tablet Completed ? 05/31/2022 TAKE 1 TABLET BY MOUTH TWICE A DAY erythromycin 5 mg/gram (0.5 %) eye ointment Completed ? 09/22/2019 fluticasone propionate 50 mcg/actuation nasal Completed ? 09/22/2019 spray,suspension fluvoxamine 100 mg tablet Active ? Not av ailable fluvoxamine 50 mg tablet Active ? Not maria ines ilable TAKE 1 TABLET BY MOUTH IN THE MORNING AND TAKE 2 TABLETS BY MOUTH AT BEDTIME. Fluzone High-Dose 2019-20 (PF) 180 mcg/0.5 mL Completed ? 09/22/2019 intramuscular syringe folic acid 1 mg tablet Active ? Not avail able FreeStyle Lancets 28 gauge Completed ? 08/12 FreeStyle Lite Meter kit Completed ? 021 USE TO TEST 3 TIMES A DAY FreeStyle Lite Strips Completed ? 05/31/2022 USE TO TEST BLOOD SUGAR 3 TIMES DAILY furosemide 40 mg tablet Active ? Not avai lable TAKE 1 TABLET BY MOUTH TWICE A DAY gabapentin 300 mg capsule Active ? Not av ailable guaifenesin 100 mg/5 mL oral liquid Completed ? 09/22/2019 Humalog U-100 Insulin 100 unit/mL subcutaneous solution Active ? Not available Humira Pen Bxnsryeqj-Cichdzz-Zbbn Hid Sup Start 40 Active ? Not available mg/0.8 mL subcut kt Humira(CF) Pen 40 mg/0.4 mL subcutaneous kit Active ? Not available hydrocortisone 2.5 % topical cream Active ? Not available APPLY A THIN FILM TO THE AFFECTED SKIN AND RUB IN GENTLY AND COMPLETELY 3 TIMES A DAY hydrocortisone 2.5 % topical ointment Completed ? 09/22/2019 hydroxyzine HCl 25 mg tablet Active ? Not available levofloxacin 250 mg tablet Completed ? 09/05 TAKE 1 TABLET BY MOUTH EVERY DAY FOR 3 DAYS lidocaine 5 % topical patch Active ? Not available APPLY 1 PATCH TOPICALLY DAILY magnesium oxide 400 mg (241.3 mg magnesium) tablet Active ? Not available TAKE 1 TABLET BY MOUTH EVERY DAY melatonin 3 mg tablet Active ? Not availa ble TAKE 1 TABLET BY MOUTH AT BEDTIME NEEDED methotrexate sodium 2.5 mg tablet Completed ? 09/22/2019 mupirocin 2 % topical ointment Active ? N ot available USE 1 APPLICATION TOPICALLY 2 TIMES A DAY FOR 14 DAYS, APPL Y TO AFFECTED SKIN naproxen 500 mg tablet Completed ? 0 nicotine (polacrilex) 2 mg gum Active ? N ot available CHEW 1 PIECE OF GUM EVERY 2 HOURS NEEDED nicotine 14 mg/24 hr daily transdermal patch Active ? Not available APPLY 1 PATCH TOPICALLY DAILY nitrofurantoin monohydrate/macrocrystals 100 mg capsule Complete d ? 09/22/2019 Novolog Flexpen U-100 Insulin aspart 100 unit/mL (3 mL) subcutan eous Active ? Not available PLEASE SEE ATTACHED FOR DETAILED DIRECTIONS ondansetron HCl 4 mg tablet Completed ? 11/2020 ondansetron HCl 8 mg tablet Completed ? 11/2020 TAKE 1 TABLET BY MOUTH 3 TIMES A DAY oxycodone 5 mg capsule Completed ? 0 oxycodone 5 mg tablet Completed ? 05/28/2021 TAKE HALF A TABLET BY MOUTH EVERY 6 HOURS NEEDED FOR PAIN prednisone 20 mg tablet Active ? Not avai lable TAKE 2 TABLETS (40 MG) BY MOUTH ONCE DAILY prednisone 5 mg tablet Completed ? 1 pregabalin 150 mg capsule Active ? Not av ailable TAKE 1 CAPSULE BY MOUTH TWICE A DAY pregabalin 50 mg capsule Completed ? pregabalin 75 mg capsule Completed ? 021 Purelax 17 gram/dose oral powder Active ? Not available MIX17 GRAMS IN GLASS OF WATER AND DRINK ORALLY 2 TIMES A DAY NEEDED FOR CONSTIPATION sertraline 100 mg tablet Active ? Not maria ines ilable TAKE 2 TABLETS BY MOUTH EVERY DAY sertraline 25 mg tablet Completed ? 02/26/20 21 sertraline 50 mg tablet Active ? Not avai lable TAKE 1 TABLET BY MOUTH EVERY DAY (TAPERING SCHEDULE) Shingrix (PF) 50 mcg/0.5 mL intramuscular suspension, Completed ? 01/20/2021 kit simvastatin 10 mg tablet Active ? Not maria ines ilable TAKE 1 TABLET BY MOUTH EVERYDAY AT BEDTIME Skyrizi 150 mg/mL subcutaneous pen injector Active ? Not available spironolactone 100 mg tablet Active ? Not available TAKE 1 TABLET BY MOUTH EVERY DAY sulfamethoxazole 800 mg-trimethoprim 160 mg tablet Completed ? 08/12/2021 TAKE 1 TABLET BY MOUTH TWICE A DAY tizanidine 2 mg tablet Active ? Not avail able tobramycin 0.3 % eye drops Completed ? 09/22 tramadol 50 mg tablet Active ? Not availa ble TAKE 1-2 TABLETS BY MOUTH EVERY 6 HOURS SCHEDULE FOLLOW VISIT, NEEDED FOR PAIN trazodone 50 mg tablet Active ? Not avail able Trelegy Ellipta 100 mcg-62.5 mcg-25 mcg powder for inhalation Ac tive ? Not available INHALE 1 PUFF BY MOUTH EVERY DAY ann marie conde no dispense Completed ? 02/2022 NO DISPENSE Tresiba FlexTouch U-200 insulin 200 unit/mL (3 mL) subcutaneous pen Active ? Not available INJECT SUBCUTANEOUSLY TAKING 65 UNITS DAILY, MAX DOSE 140 UNITS Tresiba U-100 Insulin 100 unit/mL subcutaneous solution Complete d ? 05/31/2022 triamcinolone acetonide 0.1 % topical cream Completed ? 01/20/2021 triamcinolone acetonide 0.1 % topical ointment Completed ? 08/12/2021 triamcinolone acetonide 0.5 % topical cream Completed ? 08/12/2021 triamcinolone acetonide 0.5 % topical ointment Completed ? 08/12/2021 APPLY 1 TOPICALLY TWICE A DAY Victoza 3-Toby 0.6 mg/0.1 mL (18 mg/3 mL) subcutaneous pen inject or Active ? Not available INJECT 1.8 MG UNDER THE SKIN ONCE DAILY Vitamin D3 25 mcg (1,000 unit) capsule Active ? Not available TAKE 1 CAPSULE BY MOUTH EVERY DAY. Problems Name Status Onset Date Source ? Depressive Disorder Active 09/22/2019 ? Edema Active 09/22/2019 ? Procedures Date Name Performed by ? 08/25/1998 Bone Fusion Information not avai lable ? Procedure on Neck Information not avai lable ? Section Information not avai lable Notes: X3 07/17/2020 XR, Ankle, 3 or More View [facility] [facility] [place] [address] (Work Place) 11/11/2020 XR, Hip + Pelvis, Unilateral [facility] [address] [facility] [place] [address] (Work Place) 11/11/2020 XR, Pelvis, 1 or 2 View [facility] [address] [place] [place] [address] (Work Place) 01/20/2021 XR, Tibia + Fibula, 2 View [facility] [place] [address] (Work Place) 02/25/2021 XR, Ankle, 3 or More View [facility] [address] [facility] [place] [address] (Work Place) 08/12/2021 XR, Foot, 3 or More View [facility] [place] [address] (Work Place) 08/12/2021 XR, Ribs, Unilateral, W/ PA Chest [facility] [address] [facility] [place] [address] (Work Place) 05/31/2022 XR, Knee, 3 View [facility] Urge nt Care [facility] [address] [facility] [place] [address] (Work Place) 05/31/2022 XR, Ankle, 3 or More View [facility] [address] [facility] [place] [address] (Work Place) Results Lab Results Date Name Specimen Result Interpretation Description Value Range Status Address ? 02/09/2022 Culture, ? Specimen clean catch ? Fin rao [facility] Urine Description (urine) Refe rence Laboratori es: [address], [place] ? ? ? Special none ? Final [facility] Requests Referenc e Laboratori es: [address], [place] ? ? ABNORMAL Culture ? ? Final [facility] Reference [facility]: [address], [place] ? ? ? Report Status final ? Final [facility] 02/12/2022 Refere nce Laboratori es: [address], [place] ? ? ? Organism ? ? Final [facility] Reference Labor[facility]: [address], [place] ? ? ? Method method min. ? Final [facility] gruber inhib. conc. Refe rence (mcg/mL) Laborato evan: [address], [place] ? ? Susceptibl Amikacin amikacin ? Final [facility] e susceptible Refer ence Laboratori es: [address], [place] ? ? Susceptibl Cefepime cefepime ? Final [facility] e susceptible Refer ence Laboratori es: [address], [place] ? ? Susceptibl Ceftazidime ceftazidime ? Fi nal [facility] e susceptible Refer ence Laboratori es: [address], [place] ? ? Susceptibl Ciprofloxacin ciprofloxacin ? Final [facility] e susceptible Refer ence Laboratori es: [address], [place] ? ? Intermedia Gentamicin gentamicin ? Nitza mclean [facility] te intermediate Refe rence Laboratori es: [address], [place] ? ? Susceptibl Levofloxacin levofloxacin ? Final [facility] e susceptible Refer ence Laboratori es: [address], [place] ? ? Susceptibl Meropenem meropenem ? Final [facility] e susceptible Refer ence Laboratori es: [address], [place] ? ? Susceptibl Piperacillin/ piperacillin/t ? Final [facility] e tazobactam azobac Refere nce susceptible Labor atories: [address], [place] ? ? Susceptibl Tobramycin tobramycin ? Nitza mclean [facility] e susceptible Refer ence Laboratori es: [address], [place] 02/09/2022 Urinalysis, ? Leukocytes Moderate ++ ? ? Byst [facility] Dipstick [place] ow: [address], [place] ? ? ? Nitrite positive ? ? [facility]st [facility] [place] : [address], [place] ? ? ? Urobilinogen 0.2-Normal ? ? [facility] [place] : [address], [place] ? ? ? Protein Trace ? ? [facility] [place] : [address], [place] ? ? ? Ph 7.0 ? ? Byst [facility] [place] : [address], [place] ? ? ? Blood Trace(non-hemo ? ? By st [facility] lyzed) [place] : [address], [place] ? ? ? Specific 1.010 ? ? [facility] [place] w: [address], [place] ? ? ? Ketone Negative ? ? Byst [facility] [place] : [address], [place] ? ? ? Bilirubin Negative ? ? Byst [facility] [place] : [address], [place] ? ? ? Glucose Negative ? ? Byst U [facility] [place] : [address], [place] ? ? ? Appearance cloudy ? ? Byst [facility] [place] : [address], [place] ? ? ? Color yellow ? ? Byst [facility] [place] : [address], [place] 05/28/2021 Culture, ? Specimen E swab right ? Fi nal [facility] Superficial Description foot Reference Wound Laboratori es: [address], [place] ? ? ? Special none ? Final [facility] Requests Referenc e Laboratori es: [address], [place] ? ? ? gram Stain ? ? Final [facility] [facility] Reference Labor[facility]: [address], [place] ? ? ABNORMAL Culture ? ? Final [facility] Reference [facility]: [address], [place] ? ? ? Report Status final ? Final [facility] 05/31/2021 Refere nce Laboratori es: [address], [place] ? ? ? Organism ? ? Final [facility] Reference Labor[facility]: [address], [place] ? ? ? Method method min. ? Final [facility] gruber inhib. conc. Refe rence (mcg/mL) Laborato evan: [address], [place] ? ? Resistant Ciprofloxacin ciprofloxacin ? Final [facility] resistant Referen ce Laboratori es: [address], [place] ? ? Resistant Clindamycin clindamycin ? Fin al [facility] resistant Referen ce Laboratori es: [address], [place] ? ? Resistant Erythromycin erythromycin ? F inal [facility] resistant Referen ce Laboratori es: [address], [place] ? ? Resistant Levofloxacin levofloxacin ? F inal [facility] resistant Referen ce Laboratori es: [address], [place] ? ? Susceptibl Linezolid linezolid ? Final [facility] e susceptible Refer ence Laboratori es: [address], [place] ? ? Resistant Oxacillin oxacillin ? Final [facility] resistant Referen ce Laboratori es: [address], [place] ? ? Susceptibl Rifampin ? ? Final [facility] Reference Labor[facility]: [address], [place] ? ? Susceptibl Tetracycline tetracycline ? Final [facility] e susceptible Refer ence Laboratori es: [address], [place] ? ? Susceptibl Trimeth/sulfa trimeth/sulfam ? Final [facility] e methox ethox Reference susceptible Labor atories: [address], [place] ? ? Susceptibl Vancomycin vancomycin ? Nitza l [facility] e susceptible Refer ence Laboratori es: [address], [place] Past Encounters 05/31/2022 Pain of Left Knee Joint; Pain of Left An kle Joint; Sprain of Left Ankle; Sprain of Left Knee Lo Shi COMPUTER TECH: [address], [place] [address], Ph. 04/17/2022 Subconjunctival Hemorrhage of Right Eye Destinee Conet, PA: [address], [place] [address], Ph. 02/09/2022 Left Flank Pain; Acute Urinary Tract Inf ection Destinee Conte PA: [address], [place] [address], Ph. 09/05/2021 Cellulitis of Lower Limb Raouma Perez CARMEN Fry: [address], [place] [address], Ph. 08/12/2021 Falling Injury; Laceration of Great Toe; Sprain of Left Ankle; Closed Fracture of Fourth Metatarsal Bone; Fracture of Left Rib Brandon Dunn MD: [address], [place] [address], Ph. 05/28/2021 Cellulitis of Left Foot; Chronic Ulcer o f Skin; Cellulitis of Right Foot CARMEN Flor: [place] [address], Ph. 02/25/2021 Pain of Left Ankle Joint Destinee Conte PA: [address], [place] [address], Ph. 01/20/2021 Pain in Left Lower Limb Latosha Brown, COMPUTER TECH: [address], [place] [address], Ph. Social History Tobacco Smoking Status Current Some Day Smoker Vaccine List Vaccine Type COVID-19, mRNA, LNP-S, PF, 30 mcg/0.3 mL dose ([employer]) 09/03/2020 09/24/2020 influenza, high dose seasonal 05/05/2015 05/31/2016 06/17/2019 influenza, seasonal, injectable 03/25/2010 06/11/2011 04/28/2012 05/05/2013 05/29/2014 pneumococcal polysaccharide PPV23 10/05/2013 Td (adult) preservative free 03/25/2017 Tdap 08/08/2010 zoster recombinant 02/09/2018 05/10/2020 Plan of Care Patient Instructions DVT signs and symptoms discussed with angelita gonsalves and her daughter. She was advised to go to ED if these symptoms occur. She sh ould follow up with her PCP this week for pain management Reminders Provider Appointments None recorded. ? ? Lab None recorded. ? ? Referral None recorded. ? ? Procedures None recorded. ? ? Surgeries None recorded. ? ? Imaging None recorded. ? ? Vitals 05/31/2022 10:47AM Established Patient Blood Pressure 134/71 mm[Hg] 04/17/2022 04:42PM Established Patient Blood Pressure 133/78 mm[Hg] 02/09/2022 02:22PM Established Patient Blood Pressure 110/67 mm[Hg] 09/05/2021 02:45PM Established Patient Blood Pressure 134/74 mm[Hg] 08/12/2021 12:27PM Established Patient Blood Pressure 104/55 mm[Hg] 05/28/2021 10:15AM Established Patient Blood Pressure 116/4 mm[Hg] 02/25/2021 10:30AM Established Patient Blood Pressure 110/61 mm[Hg] 01/20/2021 01:45PM Established Patient Blood Pressure 117/62 mm[Hg] 11/11/2020 01:30PM Established Patient Blood Pressure 118/65 mm[Hg] 07/17/2020 01:15PM Established Patient Blood Pressure 101/59 mm[Hg] 09/22/2019 03:05PM New Patient Blood Pressure 132/65 mm[Hg]
--- OUTSIDE RECORDS SUMMARY | 2022-06-09 08:58 | XMS_ITS | Continuity of Care Document ---
:[address] [facility] Address [address] [place] [address]- Care Team Providers Name Role Phone Ranjeet Rushing MD Primary Care Physician Encounter [facility] Date(s): 10/29/21 - 11/28/21 [facility] [address] [place] [address]- Allergies, Adverse Reactions, Alerts Substance Reaction Severity [...] (oldterm) 06/17/19 Recorded Influenza Virus Vaccine (oldterm)4 9/11/08 Given Influenza Virus Vaccine (oldterm)5 07/30/07 Given Influenza Virus Vaccine (oldterm)6 05/29/06 Given tetanus-diphtheria toxoids (Td)7 03/25/17 Recorded Zoster Vaccine Live8, 9 08/30/15 Recorded pneumococcal 13-valent vaccine 06/21/15 Given pneumococcal 23-valent vaccine 10/05/13 Recorded tetanus/diphtheria/pertussis, acel(Tdap) 08/08/10 Recorde d Tet/Diphth/Acel, Pertussis (oldterm)10 07/19/08 Given Pneumococcal Poly (PPV23) (oldterm)11 07/19/08 Given 1Result Comment: [05/28/2017] [facility]: [id number] History: [id number] Note: VIS GIVEN-DATED Admin Note: vis [id number] Note: VIS [id number] Note: [id number] History: [facility] [id number] History: [facility] [id number] Comment: [10/17/2015] PER NICO AT [id number] Note: VIS [id number] Note: VIS GIVEN Medications 12 inch Grab [...] 11 Refills, Maintenance, 05/05/20 14:02:00 EDT, Powder, [facility]/pharmacy #[id number], 2 puffs Inhalation Every 6 hours,PRN:as needed, 160.02, cm, 05/05/20 13:43:00 EDT, Height, 73.6, kg, 04/18/20 10:1... Start Date: 05/05/20 Status: Orderedalendronate 70 mg oral tablet 1 tablet, By Mouth, Every week, # 12 tablet, 6 Refills, Maintenance, 01/09/21 16:07:00 EDT, [facility] ST[facility] [id number], 160, cm, 12/25/20 14:20:00 EDT, Height, 77.5, kg, 10/05/20 14:31:00 EST, Dry Weight Start Date: 01/09/21 Status: Orderedallopurinol 300 mg oral tablet 1, tablet, By Mouth, Daily, # 90 tablet, Refills 1, Route to Pharmacy Electronically, [facility] ST[id number], 160, cm, 06/19/21 13:57:00 EDT, Height, 77.27, [...] tablet, 5 Refills, Maintenance, 08/30/21 7:54:00 EST, [facility]/pharmacy #[id number], 160, cm, 07/26/21 [...] Status: Ordered[facility] VITAMIN B-12 500 MCG TAB [facility] VITAMIN B-12 500 MCG TAB, 1, tablet, [...] 1 Refills, Maintenance, 09/18/21 11:52:00 EST, Tablet, [facility]/pharmacy #[id number], 160, cm, 09/14/21 [...] tablet, 1 Refills, Maintenance,11/13/21 15:13:00 EDT, Tablet, [facility]/pharmacy #[id number], Partial fill upon [...] tablet, Refills 1, Route to Pharmacy Electronically, [facility] ST[id number], 160, cm, 10/15/21 15:03:00 EST, Height, 75, kg, 09/14/21 11:51:00 EST, Dry Weight Start Date: 10/16/21 Status: OrderedLyrica 150 mg oral capsule 1 capsule = 150 mg, By Mouth, 2 times a day, DOSAGE INCREASE, # 60 capsule, 3 Refills, Maintenance, 11/12/21 16:27:00 EDT, Capsule, [facility]/pharmacy #[id number], 160, cm, 11/01/21 15:12:00 EST, Height, 74.8, kg,11/01/21 15:05:00 EST, Dry Weight Start Date: 11/12/21 Status: Orderedmagnesium oxide 400 mg (240 mg elemental magnesium) oral tablet 1 tablet, By Mouth, Daily, # 90 tablet, 0 Refills, Acute, 09/20/20 12:20:00 EST, [id number], 90, TAKE 1 TABLET BY MOUTH DAILY, 160, cm, 09/12/20 14:03:00 EST, Height, 71.3, kg, 08/08/20 7:00:00 EST, Dry Weight Start Date: 09/20/20 Status: Orderedmagnesium oxide 400 mg oral tablet 1 tablet = 400 mg, By Mouth, Daily, # 100 tablet, 2 Refills, Maintenance, 06/05/21 11:32:00 EDT, Tablet, [facility]/pharmacy #[id number], Partial fill upon patient request if the prescription is for a schedule II opioid drug., 160, cm, 05/21/21 11:03:00 EDT, Heigh... Start Date: 06/05/21 Status: OrderedMelatonin 3 mg oral tablet 1 tablet = 3 mg, By Mouth, Daily at bedtime, PRN for insomnia, [facility], # 90 tablet, 3 Refills, Maintenance, 10/17/21 12:02:00 EST, Tablet, [facility]/pharmacy #[id number], 1 tablet By [...] EDT, Injec... Start Date: 06/11/21 Status: OrderedPen Solomon, 31 G x 5 mm BD Ultra [...] 09/15/21 17:53:00 EST, Route to Pharmacy Electronically, [facility]/pharmacy #[id number], 160, cm, 09/14/21 [...] 07/23/21 13:10:00 EST, Route to Pharmacy Electronically, [facility]/pharmacy #[id number], Partial fill upon patient request if the prescription is for a schedule II opioid thomas... Start Date: 07/23/21 Stop Date: 01/19/22 Status: OrderedtraMADol 50 mg oral tablet See Instructions, TAKE 1-2 TABLETS BY MOUTH EVERY 6 HOURS SCHEDULE FOLLOW VISIT, NEEDED FOR PAIN,# 240 tablet, 5 Refills, Maintenance, 05/31/21 9:52:00 EDT, [facility]/pharmacy #[id number], 160, cm, 05/21/21 [...] 3 Refills, Maintenance, 04/19/21 11:35:00 EDT, Powder, [facility]/pharmacy #[id number], Partial fill upon [...] # 9 Unknown, 5 Refills, [id number], 160, cm, 09/07/21 15:03:00 EST, Height, 77.27, [...] cervical(Confirmed) Osteoporosis(Confirmed) Active *[facility] [phone] 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 50-70% bilaterally.3Patient's inventory technician is [facility] and patient sees Dr. Gume Mart Social History Social History Type Response Smoking Status Former smoker, quit more mark n 30 days ago entered on: 09/28/21 Sex
--- OUTSIDE RECORDS SUMMARY | 2022-06-09 08:58 | XMS_ITS | Continuity of Care Document ---
:1950 Author Organization [facility] Address [address] [place] [id number]- Care Team Providers Name Role Phone Ranjeet Rushing MD Primary Care Phys[place] [facility] [place] 11/11/21 [facility] [address] [place] [id number] Attending Physician: Evans Brock Admitting Physician: Admtr, Evans Referring Physician: Admtr, [...] Comment: [05/28/2017] [facility]: [id number] History: [id number] Note: VIS GIVEN-DATED Admin Note: vis [id number] Note: VIS [id number] Note: [id number] History[place] [facility] [place] [id number] History: [facility] [id number] Comment: [10/17/2015] PER NICO AT [id number] Note: VIS [id number] Note: VIS GIVEN Medications 12 inch Grab [...] Refills, Maintenance, 01/09/21 16:07:00 EDT, [facility], 160, cm, 12/25/20 14:20:00 EDT, Height, 77.5, kg, 10/05/20 14:31:00 EST, Dry Weight Start Date: 01/09/21 Status: Orderedallopurinol 300 mg oral tablet 1, tablet, By Mouth, Daily, # 90 tablet, Refills 1, Route to Pharmacy Electronically, [facility], 160, cm, 06/19/21 13:57:00 EDT, Height, 77.27, [...] tablet, 5 Refills, Maintenance, 08/30/21 7:54:00 EST, [facility]/pharmacy #[id number], 160, cm, 07/26/21 10:45:00 EST, [...] 1 Refills, Maintenance, 09/18/21 11:52:00 EST, Tablet, [facility]/pharmacy #[id number], 160, cm, 09/14/21 11:51:00 EST, [...] tablet, 1 Refills, Maintenance, 10/16/21 15:07:00EST, Tablet, [facility]/pharmacy #[id number], Partial fill upon patient request [...] tablet, Refills 1, Route to Pharmacy Electronically, [facility] [id number], 160, cm, 10/15/21 15:03:00 EST, Height, 75, kg, 09/14/21 11:51:00 EST, Dry Weight Start Date: 10/16/21 Status: OrderedLyrica 150 mg oral capsule 1 capsule = 150 mg, By Mouth, 2 times a day, DOSAGE INCREASE, # 60 capsule, 3 Refills, Maintenance, 07/09/21 14:12:00 EST, Capsule, [facility]/pharmacy #[id number], 160, cm, 06/19/21 13:57:00 EDT, Height, 77.27, kg, 03/24/21 20:58:00 EDT, Dry Weight Start Date: 07/09/21 Status: Orderedmagnesium oxide 400 mg (240 mg elemental magnesium) oral tablet 1 tablet, By Mouth, Daily, # 90 tablet, 0 Refills, Acute, 09/20/20 12:20:00 EST, [facility], 90, TAKE 1 TABLET BY MOUTH DAILY, 160, cm, 09/12/20 14:03:00 EST, Height, 71.3, kg, 08/08/20 7:00:00 EST, Dry Weight Start Date: 09/20/20 Status: Orderedmagnesium oxide 400 mg oral tablet 1 tablet = 400 mg, By Mouth, Daily, # 100 tablet, 2 Refills, Maintenance, 06/05/21 11:32:00 EDT, Tablet, [facility]/pharmacy #[id number], Partial fill upon patient request if the prescription is for a schedule II opioid drug., 160, cm, 05/21/21 11:03:00 EDT, Heigh... Start Date: 06/05/21 Status: OrderedMelatonin 3 mg oral tablet 1 tablet = 3 mg, By Mouth, Daily at bedtime, PRN for insomnia, [facility], # 90 tablet, 3 Refills, Maintenance, 10/17/21 12:02:00 EST, Tablet, [facility]/pharmacy #[id number], 1 tablet By [...] EDT, Injec... Start Date: 06/11/21 Status: OrderedPen Hazel, 31 G x 5 mm BD Ultra [...] 09/15/21 17:53:00 EST, Route to Pharmacy Electronically, [facility]/pharmacy #[id number], 160, cm, 09/14/21 11:51:00 EST, [...] 07/23/21 13:10:00 EST, Route to Pharmacy Electronically, [facility]/pharmacy #[id number], Partial fill upon patient request if the prescription is for a schedule II opioid thomas... Start Date: 07/23/21 Stop Date: 01/19/22 Status: OrderedtraMADol 50 mg oral tablet See Instructions, TAKE 1-2 TABLETS BY MOUTH EVERY 6 HOURS SCHEDULE FOLLOW VISIT, NEEDED FOR PAIN,# 240 tablet, 5 Refills, Maintenance, 05/31/21 9:52:00 EDT, [facility]/pharmacy #[id number], 160, cm, 05/21/21 11:03:00 EDT, [...] 3 Refills, Maintenance, 04/19/21 11:35:00 EDT, Powder, [facility]/pharmacy #[id number], Partial fill upon patient request [...] 11 Refills, Soft Stop, 07/26/21 11:05:00 EST, [facility]/pharmacy #[id number], 160, cm, 07/26/21 10:45:00 EST, [...] # 9 Unknown, 5 Refills, [facility], 160, cm, 09/07/21 15:03:00 EST, Height, 77.27, kg, 03/24/21 20:58:00 EDT, Dry Weight Start Date: 09/11/21 Status: OrderedVitamin D3 1000 intl units oral capsule 1 capsule = 1,000 International_Units, By Mouth, Daily, # 90 capsule, 1 Refills, Maintenance, 09/25/20 7:44:00 EST, Capsule, [facility]/pharmacy #[id number], resent from 08/14, 160, cm, [...] cervical(Confirmed) Osteoporosis(Confirmed) Active *[facility] [phone] 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 Gume Mart Social History Social History Type Response Smoking Status Former smoker, quit more amrk n 30 days ago entered on: 09/28/21 Sex
--- OUTSIDE RECORDS SUMMARY | 2022-06-09 08:58 | XMS_ITS | Continuity of Care Document ---
:1950 Author Organization [facility] Address [address] [place] [address], [address] [place] [address]- Care Team Providers Name Role Phone Ranjeet Rushing MD Primary Care Physician Encounter [facility] [place] Date(s): 10/15/21 - 10/22/[address], [address] [place], [place] [address] Attending Physician: Gabby Bernard DO Allergies, [...] Given 1Result Comment: [05/28/2017] [facility]: [id number] History: [id number] Note: VIS GIVEN-DATED Admin Note: vis [id number] Note: VIS [id number] Note: VIS-[id number] History: [facility] [id number] History: [facility] [id number] Comment: [10/17/2015] PER NICO AT [id number] Note: VIS [id number] Note: VIS GIVEN Medications 12 inch Grab [...] tablet, 6 Refills, Maintenance, 01/09/21 16:07:00 EDT, [facility] ST[facility] 99[facility], 160, cm, 12/25/20 14:20:00 EDT, Height, 77.5, kg, 10/05/20 14:31:00 EST, Dry Weight Start Date: 01/09/21 Status: Orderedallopurinol 300 mg oral tablet 1, tablet, By Mouth, Daily, # 90 tablet, Refills 1, Route to Pharmacy Electronically, [facility] 72548, 160, cm, 06/19/21 13:57:00 EDT, Height, 77.27, [...] tablet, 5 Refills, Maintenance, 08/30/21 7:54:00 EST, [facility]/pharmacy #[id number], 160, cm, 07/26/21 10:45:00 [...] 1 Refills, Maintenance, 09/18/21 11:52:00 EST, Tablet, [facility]/pharmacy #[id number], 160, cm, 09/14/21 11:51:00 [...] tablet, 1 Refills, Maintenance, 10/16/21 15:07:00EST, Tablet, [facility]/pharmacy #[id number], Partial fill upon patient [...] tablet, Refills 1, Route to Pharmacy Electronically, [facility] 13261, 160, cm, 10/15/21 15:03:00 EST, Height, 75, kg, 09/14/21 11:51:00 EST, Dry Weight Start Date: 10/16/21 Status: OrderedLyrica 150 mg oral capsule 1 capsule = 150 mg, By Mouth, 2 times a day, DOSAGE INCREASE, # 60 capsule, 3 Refills, Maintenance, 07/09/21 14:12:00 EST, Capsule, [facility]/pharmacy #[id number], 160, cm, 06/19/21 13:57:00 EDT, Height, 77.27, kg, 03/24/21 20:58:00 EDT, Dry Weight Start Date: 07/09/21 Status: Orderedmagnesium oxide 400 mg (240 mg elemental magnesium) oral tablet 1 tablet, By Mouth, Daily, # 90 tablet, 0 Refills, Acute, 09/20/20 12:20:00 EST, [facility], 90, TAKE 1 TABLET BY MOUTH DAILY, 160, cm, 09/12/20 14:03:00 EST, Height, 71.3, kg, 08/08/20 7:00:00 EST, Dry Weight Start Date: 09/20/20 Status: Orderedmagnesium oxide 400 mg oral tablet 1 tablet = 400 mg, By Mouth, Daily, # 100 tablet, 2 Refills, Maintenance, 06/05/21 11:32:00 EDT, Tablet, [facility]/pharmacy #[id number], Partial fill upon patient request if the prescription is for a schedule II opioid drug., 160, cm, 05/21/21 11:03:00 EDT, Heigh... Start Date: 06/05/21 Status: OrderedMelatonin 3 mg oral tablet 1 tablet = 3 mg, By Mouth, Daily at bedtime, PRN for insomnia, [facility], # 90 tablet, 3 Refills, Maintenance, 10/17/21 12:02:00 EST, Tablet, [facility]/pharmacy [...] EDT, Injec... Start Date: 06/11/21 Status: OrderedPen [place], 31 G x 5 mm BD Ultra [...] 09/15/21 17:53:00 EST, Route to Pharmacy Electronically, [facility]/pharmacy #[id number], 160, cm, 09/14/21 11:51:00 EST, Height, 75, kg, 09/14/21 11:51:00 EST, Dry... Start Date: 09/15/21 Status: Orderedspironolactone 100 mg oral tablet 100 mg, 1, tablet, By Mouth, Daily, # 90 tablet, Refills 1, Tot. Refills 1, Maintenance, 07/23/21 13:10:00 EST, Route to Pharmacy Electronically, [facility]/pharmacy #[id number], Partial fill upon patient request if the prescription is for a schedule II opioid thomas... Start Date: 07/23/21 Stop Date: 01/19/22 Status: OrderedtraMADol 50 mg oral tablet See Instructions, TAKE 1-2 TABLETS BY MOUTH EVERY 6 HOURS SCHEDULE FOLLOW VISIT, NEEDED FOR PAIN,# 240 tablet, 5 Refills, Maintenance, 05/31/21 9:52:00 EDT, [facility]/pharmacy #[id number], 160, cm, 05/21/21 11:03:00 EDT, Height, [...] 3 Refills, Maintenance, 04/19/21 11:35:00 EDT, Powder, [facility]/pharmacy #[id number], Partial fill upon patient [...] 11 Refills, Soft Stop, 07/26/21 11:05:00 EST, [facility]/pharmacy #[id number], 160, cm, 07/26/21 10:45:00 EST, Height,77.27, [...] # 9 Unknown, 5 Refills, [facility], 160, cm, 09/07/21 15:03:00 EST, Height, 77.27, [...] cervical(Confirmed) Osteoporosis(Confirmed) Active *[facility] [phone] 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 Gume Mart Vital Signs Most recent to oldest [Reference Range]: 1 2 Height 160 cm 160 cm (10/15/21 3:03 PM) (10/12/21 2:34 PM) Weight 75 kg 75 kg (10/15/21 3:03 PM) (10/12/21 2:34 PM) Body Mass Index [18.5-24.99] 29.3 29.3 *H* *H* (10/15/21 3:03 PM) (10/12/21 2:34 PM) Social History Social History Type Response Smoking Status Former smoker, quit more mark n 30 days ago entered on: 09/28/21 Sex
--- OUTSIDE RECORDS SUMMARY | 2022-06-09 08:58 | XMS_ITS | Continuity of Care Document ---
:1950 Author Organization [facility] Address [address] [place] [address]- Care Team Providers Name Role Phone Ranjeet Rushing MD Primary Care Physician Encounter [facility] Date(s): 10/16/21 - 11/15/21 [facility] [address] [place] [address]- Allergies, Adverse Reactions, Alerts Substance Reaction Severity [...] [05/28/2017] [facility]: [id number] History: [id number] Note: VIS GIVEN-DATED Admin Note: vis [id number] Note: VIS [id number] Note: [id number] History: [facility] [id number] History: [facility] [id number] Comment: [10/17/2015] PER NICO AT [id number] Note: VIS [id number] Note: VIS GIVEN Medications 12 inch Grab [...] Maintenance, 01/09/21 16:07:00 EDT, [facility], 160, cm, 12/25/20 14:20:00 EDT, Height, 77.5, kg, 10/05/20 14:31:00 EST, Dry Weight Start Date: 01/09/21 Status: Orderedallopurinol 300 mg oral tablet 1, tablet, By Mouth, Daily, # 90 tablet, Refills 1, Route to Pharmacy Electronically, [facility] 91187, 160, cm, 06/19/21 13:57:00 EDT, Height, 77.27, [...] tablet, 5 Refills, Maintenance, 08/30/21 7:54:00 EST, [facility]/pharmacy #[id number], 160, cm, 07/26/21 10:45:00 EST, [...] Status: OrderedCVS VITAMIN B-12 500 MCG TAB [facility] VITAMIN B-12 500 MCG TAB, 1, tablet, [...] 1 Refills, Maintenance, 09/18/21 11:52:00 EST, Tablet, [facility]/pharmacy #[id number], 160, cm, 09/14/21 11:51:00 [...] tablet, 1 Refills, Maintenance,11/13/21 15:13:00 EDT, Tablet, [facility]/pharmacy #[id number], Partial fill [...] Route to Pharmacy Electronically, [facility] 27837, 160, cm, 10/15/21 15:03:00 EST, Height, 75, [...] Refills, Acute, 09/20/20 12:20:00 EST, [facility], 90, TAKE 1 TABLET BY MOUTH DAILY, [...] 3 Refills, Maintenance, 10/17/21 12:02:00 EST, Tablet, [facility]/pharmacy #[id number], 1 tablet By [...] EDT, Injec... 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 Gume Mart Social History Social History Type Response Smoking Status Former smoker, quit more mark n 30 days ago entered on: 09/28/21 Sex
[2022-06-09 09:07] LABS: MANUAL DIFF FLAG NO
[2022-06-09 09:13] LABS: Basophils Percent Auto 0.4 % (0-2); Eosinophils Absolute Auto 0.1 X10*3/uL (0.0-0.4); Eosinophils Percent Auto 1.7 % (0-4); Hematocrit 44.4 % (37.0-47.0); Hemoglobin 14.2 g/dl (12.0-16.0); Imm Gran Abs Auto 0.04 X10*3/uL (0.00-0.03); Imm Gran Pct Auto 0.5 % (0.0-0.4); Lymphocytes Absolute Auto 1.2 X10*3/uL (1.2-4.9); Lymphocytes Percent Auto 15.3 % (20-40); Mean Corpuscular Hemoglobin 30.1 pg (27.0-33.0); Mean Corpuscular Volume 94.3 fL (80.0-98.0); Mean Platelet Volume 11.2 fL (9.4-12.3); Monocytes Absolute Auto 0.5 X10*3/uL (0.1-1.2); Monocytes Percent Auto 6.3 % (2-11); Neutrophils Absolute Auto 5.7 x10*3/uL (2.0-8.3); Neutrophils Percent Auto 75.8 % (45-73); Platelet Count 220 X10*3/uL (160-400); Red Blood Count 4.71 X10*6/uL (4.20-5.50); Red Cell Distribution Width 14.5 % (11.0-16.0); White Blood Count 7.6 X10*3/uL (4.8-10.8)
[2022-06-09] MEDS: Albuterol/Iprat 2.5/0.5MG 3 ML AMPUL.NEB INHALE (09:17)
[2022-06-09] MEDS: Albuterol Sulfate (0.083%) 2.5 MG/3 ML VIAL.NEB INHALE (09:18)
[2022-06-09 09:19] VITALS: PULSE 84; RESP 16; O2SAT 95
[2022-06-09 09:25] LABS: Alanine Aminotransferase 30 U/L (0-31); Albumin Level 3.6 g/dL (3.5-5.0); Alkaline Phosphatase 84 U/L (39-117); Anion Gap 15 (12-20); Aspartate Amino Transferase 30 U/L (5-31); Bilirubin Direct 0.2 mg/dL (0.0-0.5); Bilirubin Total 0.6 mg/dL (0.0-1.0); Blood Urea Nitrogen 27 mg/dL (9-16); Calcium 9.5 mg/dL (8.4-10.2); Carbon Dioxide 30 mmol/L (22-29); Chloride 102 mmol/L (96-108); Creatinine Clr Calc Pharmacy 41.3; Estimated Glomerular Filt Rate 46; Glucose Random 131 mg/dL (60-115); Lipase 41 U/L (8-78); Potassium 4.7 mmol/L (3.3-5.1); Sodium 142 mmol/L (135-145); Total Protein 6.1 g/dL (6.5-8.0)
[2022-06-09 09:31] LABS: B Type Natriuretic Peptide 24 pg/mL (<100); Troponin-I High Sensitivity 12.9 ng/L (<3.5-17.0)
[2022-06-09 10:00] VITALS: BP 92/65; PULSE 99; RESP 14; TEMP 36.3; O2SAT 93
[2022-06-09 10:28] LABS: Thyroid Stimulating Hormone 0.72 uIU/mL (0.32-4.0)
--- NOTE | 2022-06-09 11:27 | PC.NURSE ---
[facility] smart sheet completed
[2022-06-09 12:00] VITALS: BP 93/69; PULSE 99; RESP 14; TEMP 36.9; O2SAT 94
--- NOTE | 2022-06-09 12:22 | PC.NURSE ---
Rachel from [facility] en route to see pt
[2022-06-09 14:10] LABS: Glucose, Whole Blood 306 mg/dL (60-115)
--- NOTE | 2022-06-09 14:21 | PHA.MEDREC ---
Pharmacy Consult ? Medication Reconciliation Pharmacy has completed the medication reconciliation. Utilized med list patient arrived with to confirm meds.
[2022-06-09] MEDS: Insulin Lispro 100 UNIT/ML 3 ML VIAL SUBCUT (14:44)
[2022-06-09] MEDS: Insulin Glargine,Hum.rec.anlog 100 UNIT/ML 10 ML VIAL SUBCUT (14:44)
[2022-06-09 15:53] VITALS: BP 125/61; PULSE 95; RESP 14; TEMP 36.8; O2SAT 94
[2022-06-09 15:54] LABS: Glucose, Whole Blood 283 mg/dL (60-115)
--- NOTE | 2022-06-09 15:57 | PC.NURSE ---
Pt aox4. Breaths are even and unlabored. O2 sat 94% RA. Abd distended, soft, and non tender. Denies SI/HI. Pt aware of plan. Will continue to monitor.
--- NOTE | 2022-06-09 16:22 | PC.NURSE ---
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 daughter on her way
[2022-06-09 17:40] LABS: Appearance Urine Cloudy; Color Urine Yellow; Glucose Urine UA Negative (Negative); Leukocyte Esterase Urine Large (3+) (Negative); Nitrite Urine Negative (Negative); UMIC TRIGGER UACC YES; Urine Blood Negative (Negative); Urine Ketones Negative (Negative); Urine Protein 100 (2+) mg/dL (Neg-Trace)
--- NOTE | 2022-06-09 17:43 | PC.NURSE ---
Pts daughter here to take pt. Discharge instructions provided. Pt verbalizes understanding.
[2022-06-09 17:56] LABS: Amphetamine Screen Urine Not Detected (Not Detect); Barbiturates, Urine Not Detected (Not Detect); Benzodiazepines Screen Urine Not Detected (Not Detect); Cannabinoid Screen Urine POSITIVE (Not Detect); Cocaine Screen Urine Not Detected (Not Detect); Fentanyl, urine Not Detected (Not Detect); Opiate Screen Urine Not Detected (Not Detect); Phencyclidine Screen Urine Not Detected (Not Detect)
[2022-06-09 17:58] LABS: Bacteria Urine 3+ (None Seen); Hyaline Casts Urine 0-2 /LPF (0-2); RBC Urine 0-2 /HPF (0-2); UACC Culture Trigger YES; WBC Urine >50 /HPF (0-5)
== END 2022-06-09 17:44 | disposition home or self-care (01) ==
PROVIDERS: Emergency Provider Emergency Medicine; PCP Internal Medicine
DX: F33.1 Major depressive disorder, recurrent, moderate (principal); J44.1 Chronic obstructive pulmonary disease with (acute) exacerbation; E11.65 Type 2 diabetes mellitus with hyperglycemia; R06.02 Shortness of breath; Z79.899 Other long term (current) drug therapy
CPT/HCPCS: 36415; 71045; 80048; 80076; 80307; 81001; 82947; 83690; 83880; 84443; 84484; 85025; 87086; 87088; 87186; 93005; 94640; 96372; 99285

== ENCOUNTER 2022-06-13 07:30 | Emergency (ER) | payer OTHER, SELFPAY ==
--- NOTE | ~2022-06-13 | XR_ITS ---
EXAMINATION: XR CHEST CLINICAL INFORMATION: Dyspnea. COMPARISON: 06/09/2022 chest radiograph. TECHNIQUE: Frontal view of the chest was obtained. FINDINGS: Mild elevation of the right hemidiaphragm. Mild bibasilar linear markings without significant change. The upper lung lu are clear. The heart and mediastinal structures are unremarkable. XR/XR chest 1V IMPRESSION: Mild bibasilar linear atelectasis/scarring without significant change. No acute cardiopulmonary process.
--- NOTE | 2022-06-13 07:37 | ED.PSYCH ---
HPI - Psych General Chief Complaint: Anxiety Stated Complaint: ANXIETY,UNABLE TO CALM SELF DOWN PER EMS Time Seen by Provider: 06/13/22 07:37 Source: patient and old records reviewed Mode of arrival: EMS Limitations: no limitations History of Present Illness HPI Narrative: 72 yo female with hx of depression, COPD recent admit with DC on 05/13 from inpatient psych comes back stating she is compliant with treatment. States she is too anxious and cannot take the stress in her life. Wants to go inpatient. MD complaint: feels depressed and anxiety Onset (ago): week(s) (2) Duration: getting worse History of same: Yes Relieving factors: none Exacerbating factors: none Context: significant life stressor Associated psychiatric symptoms: other (not eating or sleeping) Associated symptoms: denies other symptoms Treatments prior to arrival: none Related Data Home Medications Medication Instructions Recorded Confirmed cholecalciferol (vitamin D3) 25 25 mcg PO DAILY 06/09/22 06/13/22 mcg (1,000 unit) tablet (Vitamin D3) fluoxetine 20 mg capsule 40 mg PO DAILY 06/09/22 06/13/22 insulin degludec 200 unit/mL (3 55 unit subcut DAILY 06/09/22 06/13/22 mL) subcutaneous pen (Tresiba FlexTouch U-200 insulin) lidocaine 5 % topical patch 1 patch topical DAILY 06/09/22 06/13/22 tramadol 50 mg tablet 50 mg PO Q6H PRN Pain 06/09/22 06/13/22 acetaminophen 325 mg tablet 2 tab PO Q6H PRN mild pain 06/13/22 06/13/22 Previous Rx's Medication Instructions Recorded arm brace (Wrist Brace) #1 ea 06/29/20 albuterol sulfate 90 mcg/actuation 2 puff inhalation Q4-6H PRN 05/13/22 aerosol inhaler shortness of breath or wheezing 30 days #8.5 grams alendronate 70 mg tablet 70 mg PO DEGROOT@0900 30 days #5 tabs 05/13/22 allopurinol 300 mg tablet 300 mg PO DAILY #30 tabs 05/13/22 cyanocobalamin (vitamin B-12) 500 500 mcg PO DAILY 30 days #30 tabs 05/13/22 mcg tablet fluticasone fur. 100 mcg-umeclid 1 ea PO DAILY #60 ea 05/13/22 62.5 mcg-vilant 25 mcg inhalat.powder (Trelegy Ellipta) furosemide 40 mg tablet 40 mg PO BID 30 days #60 tabs 05/13/22 liraglutide 0.6 mg/0.1 mL (18 mg/3 1.8 mg (0.3 mL) subcut DAILY #9 mL 05/13/22 mL) subcutaneous pen injector (Victoza 3-Toby) magnesium oxide 400 mg PO DAILY #30 tabs 05/13/22 melatonin 3 mg tablet 3 mg PO BEDTIME PRN insomnia #30 05/13/22 tabs mirtazapine 15 mg tablet 15 mg PO BEDTIME 30 days #30 tabs 05/13/22 multivitamin 1 tab PO DAILY #30 tabs 05/13/22 pregabalin 150 mg capsule 150 mg PO BID 30 days #60 caps 05/13/22 risankizumab-rzaa 150 mg/mL 1 ea subcut Q90D #30 mL 05/13/22 subcutaneous pen injector (Skyrizi) simvastatin 10 mg tablet 10 mg PO BEDTIME 30 days #30 tabs 05/13/22 spironolactone 100 mg tablet 100 mg PO DAILY 30 days #30 tabs 05/13/22 cefuroxime axetil 250 mg tablet 250 mg PO BID 7 days #14 tabs 06/13/22 Allergies Allergy/AdvReac Type Severity Reaction Status Date / Time diphenhydramine Allergy Intermediate Hives Verified 05/10/22 10:43 [From Benadryl] lactic acid [From LAC-HYDRIN] Allergy Intermediate RASH Verified 04/08/22 15:07 latex [Latex] Allergy Intermediate HIVES Verified 04/08/22 15:07 varenicline [From CHANTIX] Allergy Intermediate RASH Verified 04/08/22 15:07 zolpidem [From AMBIEN] AdvReac Severe SLEEP Verified 05/10/22 10:43 WALKING Review of Systems Review of Systems: Constitutional : No Fever, No Chills ENT/Mouth : No Ear Pain, No Nasal Congestion, No sore throat Eyes: No Eye Pain, No Swelling, No Redness Cardiovascular : No Chest Pain, No SOB Respiratory : No Cough, No Sputum, No Dyspnea Gastrointestinal : No Nausea, No Vomiting, No Diarrhea, No Hematochezia, No Melena Genitourinary : No Dysuria, No Urinary Frequency, No Hematuria Musculoskeletal : No Myalgias Skin : No Skin Lesions, No rash Neuro : No Weakness, No Numbness, No Paresthesias, No Dizziness, No Headache Psych : positive Anxiety, positive Depression, no SI/HI Heme/Lymph: No Lymphadenopathy Endocrine : No Polyuria, No Polydipsia All other systems reviewed and are negative FOR[facility]LY [facility] Past Medical History Attestation statement: The following information was validated with the patient. Medical History Acute UTI Anxiety Back pain Carpal tunnel syndrome Cellulitis Chronic back pain Chronic respiratory failure CKD (chronic kidney disease) COPD (chronic obstructive pulmonary disease) Depression Diabetes Diabetic neuropathy HTN (hypertension) Hyperlipidemia Osteoporosis Pneumonia Psoriasis Sepsis Spondylosis Tobacco dependence Venous stasis dermatitis Surgical History H/O section S/P cervical spinal fusion Family History Family History Mother Diabetes Social History Social History Household Members: None Household Members Other:: daughter helps out daily Housing: Apartment Do you presently have visiting nurse or other home services: Yes Alcohol intake: never Patient Tobacco Use Status: Former Tobacco user Quit Date: 2-3 weeks ago Tobacco use type: Cigarette Cigarette Packs Per Day: 0 Cigarettes Per Day: 0 e-Cigarette/Vaping Use: Never Used Second Hand Smoke Exposure: No Use of substances other than those prescribed or required for medical reasons: No Substance Use Type: Marijuana Advance Directives: No Advance Directives Date on File: 06/07/20 service: No Current occupational status: unemployed Sexual orientation: Straight/Heterosexual Physical Exam Vital Signs: Vital Signs: Last Vital Signs Temp 98.2 F 06/13/22 13:04 Pulse 97 06/13/22 13:04 Resp 17 06/13/22 13:04 BP 136/76 06/13/22 13:04 Pulse Ox 96 06/13/22 13:04 O2 Del Method 06/13/22 13:04 BMI result Body Mass Index 28.3 Appearance: Alert. Oriented X3. No acute distress. Appears anxious Eyes: Pupils equal, round and reactive to light. ENT: Pharynx normal. Neck: Normal inspection. Neck supple. CVS: Normal heart rate and rhythm. Pulses normal. Respiratory: No respiratory distress. Breath sounds normal. Abdomen: Soft and nontender. Skin: Skin warm and dry. Normal skin color. Normal skin turgor. Extremities:trace pitting edema both ankles No calf ttp Neuro: Oriented X 3. No motor deficit. No sensory deficit. CN 2-12 intact Course Course Course Narrative: Physician observation started at 1230pm. Patient placed in physician observation because the patient needed more time for [facility] to assess the need for psych admission. At the time observation was started the patient's vitals were stable, patient is alert and oriented but slightly anxious Neuro: nonfocal, CV RRR, Lungs clear. Started on ceftin for UTI Physician observation ended at 330pm. Patient seen and cleared by CARE team. Plan is to follow up as outpatient. NAD, lungs clear, CV RRR, Abd nontender, Neuro intact. Disposition is for home. MDM - Psych MDM Narrative Medical decision making narrative: 72 yo female with hx of depression, COPD recent admit with DC on 05/13 from inpatient psych - patient states she is too anxious and is requesting inpatient psych. She has no medical complaints. At this time will obtain labs and refer to [facility] Lab Data Result diagrams: 06/13/22 08:18 10 08:18 Labs: Lab Results 06/13/22 06/13/22 06/13/22 Range/Units 08:18 08:18 08:18 WBC 7.7 (4.8-10.8) X10*3/uL RBC 4.45 (4.20-5.50) X10*6/uL Hgb 13.9 (12.0-16.0) g/dl Hct 42.0 (37.0-47.0) % MCV 94.4 (80.0-98.0) fL MCH 31.2 (27.0-33.0) pg MCHC 33.1 (31.0-35.0) g/dl RDW 14.4 (11.0-16.0) % Plt Count 204 (160-400) X10*3/uL MPV 11.4 (9.4-12.3) fL Immature Gran % (Auto) 0.5 H (0.0-0.4) % Neut % (Auto) 74.5 H (45-73) % Lymph % (Auto) 14.0 L (20-40) % [place] % (Auto) 7.5 (2-11) % Eos % (Auto) 3.1 (0-4) % Baso % (Auto) 0.4 (0-2) % Lymph # (Auto) 1.1 L (1.2-4.9) X10*3/uL [place] # (Auto) 0.6 (0.1-1.2) X10*3/uL Eos # (Auto) 0.2 (0.0-0.4) X10*3/uL Baso # (Auto) 0.0 (0.0-0.2) X10*3/uL Abs Immat Gran (auto) 0.04 H (0.00-0.03) X10*3/uL Absolute Neuts (auto) 5.8 (2.0-8.3) x10*3/uL Absolute Nucleated RBC 0.000 (0.0-0.012) X10*3/uL Nucleated RBC % (auto) 0.0 (0.0-0.2) /100WBC Sodium 143 (135-145) mmol/L Potassium 5.0 (3.3-5.1) mmol/L Chloride 101 (96-108) mmol/L Carbon Dioxide 32 H (22-29) mmol/L Anion Gap 15 (12-20) BUN 34 H (9-16) mg/dL Creatinine 1.11 (0.5-1.4) mg/dL Estim Creat Clear Calc 42.4 Estimated GFR 48 POC Glucose (60-115) mg/dL Random Glucose 90 (60-115) mg/dL Calcium 10.1 D (8.4-10.2) mg/dL Magnesium 2.1 (1.6-2.6) mg/dL Total Bilirubin 0.3 (0.0-1.0) mg/dL Direct Bilirubin 0.2 (0.0-0.5) mg/dL AST 27 (5-31) U/L ALT 27 (0-31) U/L Alkaline Phosphatase 85 (39-117) U/L Total Protein 6.0 L (6.5-8.0) g/dL Albumin 3.6 (3.5-5.0) g/dL Urine Color Urine Appearance Urine pH (5.0-9.0) Ur Specific [place] (1.005-1.025) Urine Protein (Neg-Trace) mg/dL Urine Glucose (UA) (Negative) mg/dL Urine Ketones (Negative) mg/dL Urine Blood (Negative) Urine Nitrite (Negative) Ur Leukocyte Esterase (Negative) Urine RBC (0-2) /HPF Urine WBC (0-5) /HPF Ur Squamous Epith Cells (0-2) /HPF Urine Bacteria (None Seen) Hyaline Casts (0-2) /LPF Urine Opiates Screen (Not Detect) Urine Fentanyl Screen (Not Detect) Ur Barbiturates Screen (Not Detect) Ur Phencyclidine Scrn (Not Detect) Ur Amphetamines Screen (Not Detect) U Benzodiazepines Scrn (Not Detect) Urine Cocaine Screen (Not Detect) U Marijuana (THC) Screen (Not Detect) COVID-19 ([facility]) Negative (Negative) COVID-19 Clin Com See Note 06/13/22 06/13/22 06/13/22 Range/Units 10:31 10:32 13:08 WBC (4.8-10.8) X10*3/uL RBC (4.20-5.50) X10*6/uL Hgb (12.0-16.0) g/dl Hct (37.0-47.0) % MCV (80.0-98.0) fL MCH (27.0-33.0) pg MCHC (31.0-35.0) g/dl RDW (11.0-16.0) % Plt Count (160-400) X10*3/uL MPV (9.4-12.3) fL Immature Gran % (Auto) (0.0-0.4) % Neut % (Auto) (45-73) % Lymph % (Auto) (20-40) % [place] % (Auto) (2-11) % Eos % (Auto) (0-4) % Baso % (Auto) (0-2) % Lymph # (Auto) (1.2-4.9) X10*3/uL [place] # (Auto) (0.1-1.2) X10*3/uL Eos # (Auto) (0.0-0.4) X10*3/uL Baso # (Auto) (0.0-0.2) X10*3/uL Abs Immat Gran (auto) (0.00-0.03) X10*3/uL Absolute Neuts (auto) (2.0-8.3) x10*3/uL Absolute Nucleated RBC (0.0-0.012) X10*3/uL Nucleated RBC % (auto) (0.0-0.2) /100WBC Sodium (135-145) mmol/L Potassium (3.3-5.1) mmol/L Chloride (96-108) mmol/L Carbon Dioxide (22-29) mmol/L Anion Gap (12-20) BUN (9-16) mg/dL Creatinine (0.5-1.4) mg/dL Estim Creat Clear Calc Estimated GFR POC Glucose 75 (60-115) mg/dL Random Glucose (60-115) mg/dL Calcium (8.4-10.2) mg/dL Magnesium (1.6-2.6) mg/dL Total Bilirubin (0.0-1.0) mg/dL Direct Bilirubin (0.0-0.5) mg/dL AST (5-31) U/L ALT (0-31) U/L Alkaline Phosphatase (39-117) U/L Total Protein (6.5-8.0) g/dL Albumin (3.5-5.0) g/dL Urine Color Yellow Urine Appearance Cloudy Urine pH 7.0 (5.0-9.0) Ur Specific [place] 1.010 (1.005-1.025) Urine Protein 100 (2+) H (Neg-Trace) mg/dL Urine Glucose (UA) Negative (Negative) mg/dL Urine Ketones Negative (Negative) mg/dL Urine Blood Negative (Negative) Urine Nitrite Positive H (Negative) Ur Leukocyte Esterase Large (3+) H (Negative) Urine RBC 0-2 (0-2) /HPF Urine WBC 21-50 H (0-5) /HPF Ur Squamous Epith Cells 11-20 (0-2) /HPF Urine Bacteria 4+ (None Seen) Hyaline Casts 0-2 (0-2) /LPF Urine Opiates Screen Not Detected (Not Detect) Urine Fentanyl Screen Not Detected (Not Detect) Ur Barbiturates Screen Not Detected (Not Detect) Ur Phencyclidine Scrn Not Detected (Not Detect) Ur Amphetamines Screen Not Detected (Not Detect) U Benzodiazepines Scrn Not Detected (Not Detect) Urine Cocaine Screen Not Detected (Not Detect) U Marijuana (THC) Screen Not Detected (Not Detect) COVID-19 ([facility]) (Negative) COVID-19 Clin Com ECG Data Attestation: I personally reviewed and interpreted this ECG as follows: ECG interpretation date: 06/13/22 ECG interpretation time: 08:14 Interpretation: Rate: 85 Rhythm: NSR [place]: left Normal P waves. Normal YESIKA. Normal QRS complex. ST T wave : inverted t waves V1-V2, no ADE qTC: normal prior studies: unchanged, old inf infarct The study has been interpreted contemporaneously by me. . Discharge Plan Discharge Clinical Impression: Acute anxiety, Acute UTI Patient Disposition: Home, Self-Care Instructions: Urinary Tract Infection in Women (ED), Generalized Anxiety Disorder (ED) Additional Instructions: return to ED for any worsening symptoms or concerns take antibiotics follow up with your therapist Prescriptions: New cefuroxime axetil 250 mg tablet 250 mg PO BID 7 Days Qty: 14 0RF No Action mirtazapine 15 mg Tablet 15 mg PO BEDTIME 30 Days Qty: 30 0RF multivitamin Tablet 1 tab PO DAILY Qty: 30 0RF furosemide 40 mg tablet 40 mg PO BID 30 Days Qty: 60 0RF alendronate 70 mg tablet 70 mg PO DEGROOT@0900 30 Days Qty: 5 0RF spironolactone 100 mg tablet 100 mg PO DAILY 30 Days Qty: 30 0RF simvastatin 10 mg tablet 10 mg PO BEDTIME 30 Days Qty: 30 0RF melatonin 3 mg tablet 3 mg PO BEDTIME PRN (Reason: insomnia) Qty: 30 0RF cyanocobalamin (vitamin B-12) 500 mcg tablet 500 mcg PO DAILY 30 Days Qty: 30 0RF allopurinol 300 mg tablet 300 mg PO DAILY Qty: 30 0RF albuterol sulfate 90 mcg/actuation HFA aerosol inhaler 2 puff inhalation Q4-6H PRN (Reason: shortness of breath or wheezing) 30 Days Qty: 8.5 0RF Rx Instructions: use with spacer device pregabalin 150 mg capsule 150 mg PO BID 30 Days Qty: 60 0RF Victoza 3-Toby 0.6 mg/0.1 mL (18 mg/3 mL) pen injector 1.8 mg subcut DAILY Qty: 9 0RF Trelegy Ellipta 100-62.5-25 mcg blister with device 1 ea PO DAILY Qty: 60 0RF magnesium oxide 400 mg magnesium Tablet 400 mg PO DAILY Qty: 30 0RF Skyrizi 150 mg/mL pen injector 1 ea subcut Q90D Qty: 30 0RF tramadol 50 mg Tablet 50 mg PO Q6H PRN (Reason: Pain) lidocaine 5 % Adhesive Patch,Medicated 1 patch TOPICAL DAILY Rx Instructions: leave on most painful area for up to 12 hrs cholecalciferol (vitamin D3) [Vitamin D3] 25 mcg (1,000 unit) Tablet 25 mcg PO DAILY fluoxetine 20 mg capsule 40 mg PO DAILY insulin degludec [Tresiba FlexTouch U-200] 200 unit/mL (3 mL) insulin pen 55 unit subcut DAILY acetaminophen 325 mg tablet 2 tab PO Q6H PRN (Reason: mild pain) (DME) Wrist Brace Misc See Rx Instructions .MEDSUPPLY Qty: 1 0RF Rx Instructions: comfort form wrist rt s
[2022-06-13 07:48] VITALS: BP 114/59; BP 132/60; PULSE 84; PULSE 90; RESP 17; TEMP 36.5; O2SAT 96; O2SAT 98; BMI 28.3
--- NOTE | 2022-06-13 07:50 | ECG_ITS ---
Test Reason : anxiety Blood Pressure : / mmHG Vent. Rate : 085 BPM Atrial Rate : 085 BPM P-R Int : 174 ms QRS Dur : 080 ms QT Int : 358 ms P-R-T Axes : 038 -38 052 degrees QTc Int : 426 ms Normal sinus rhythm Possible Left atrial enlargement Left anterior fascicular block Anteroseptal infarct (cited on or before 05-SEP-2021) Abnormal ECG When compared with ECG of 09-JUN-2022 08:45, No significant change was found Referred By: Lissette Caal Electronically Signed By:TWILA DUMONT MD
--- NOTE | 2022-06-13 07:53 | PC.NURSE ---
PT SEEN BY DR. MCGOVERN AWARE OF PLAN OF CARE.
--- NOTE | 2022-06-13 08:09 | PC.NURSE ---
PT'S DAUGHTER IS AT BEDSIDE.
--- OUTSIDE RECORDS SUMMARY | 2022-06-13 08:21 | XMS_ITS ---
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 Problem Gouty arthritis of M10.9 Active 1 [id number] left foot Problem Type 2 diabetes E11.42 Active 7137 69830 mellitus with polyneuropathy Problem Psoriasis L40.9 Active 2197378 Problem Type 2 diabetes E11.42 Active mellitus with diabetic polyneuropathy Problem Non-pressure L97.311 Active 3723804 08 chronic ulcer of right ankle limited to breakdown of skin ALLERGIES Substance Reaction Event Type Date Status Latex rash Drug Allergy Mar, Active Ambien Unknown Drug Allergy Mar, Active Benadryl rash Drug Allergy Mar, Active Lac-Hydrin rash Drug Allergy Mar, Active ENCOUNTERS Encounter Location Date Diagnosis [facility] [address], [place] [address] [facility] [address] [place], [place] [address] [facility] [address] Mar, [place] arthritis of left [place], [place] foot M10.9 ; Cl osed [address] nondisplaced fra cture of second metatarsa l [...] with polyneuropathy E 11.42 and Psoriasis L40.[address] December, [place] nondisplaced [place] [address] metatarsal bone of left foot, initial en [...] with polyneuropathy E 11.42 and Psoriasis L40.[address] Aug, [place] [address] Aug, Typ e 2 diabetes mellitus [place] with diabetic [address] polyneuropathy E 11.42 ; Cellulitis of le [...] en counter S92.345A and Pso riasis L40.[address] Aug, [place] [address] Jun, Typ e 2 diabetes mellitus [place] with diabetic [address] polyneuropathy E 11.42 ; Dermatitis L30.9 ; Non-pressure chr onic ulcer of right ankle l imited to breakdown of ski n L97.311 and Metatarsalgi a of left foot M77.42 [facility] [address] Apr, [place] [address] [facility] Apr, Typ e 2 diabetes mellitus [place] with diabetic [address] polyneuropathy E 11.42 ; Dermatitis L30.9 ; Non-pressure chr onic ulcer of right ankle l imited to breakdown of ski n L97.311 and Metatarsalgi a of left foot M77.42 [facility] [address] Mar, [place] [address] [facility] [address] Feb, Typ e 2 diabetes mellitus [place] with diabetic [address] polyneuropathy E 11.42 ; Stress fracture, left foot, initial en counter for fracture M84 .375A ; Dermatitis L30.9 ; Non-pressure chr onic ulcer of right ankle l imited to breakdown of ski n L97.311 and Metatarsalgi a of left foot M77.42 [facility] [address] Feb, [place] [address] [facility] [address] Oct, Typ e 2 diabetes mellitus [place]en Lomeli [place] with diabetic [address] polyneuropathy E 11.42 [facility] [address] Jun, [place] [address] [facility] [address] May, [place] [address] [facility] [address] Mar, Typ e 2 diabetes mellitus [place] with diabetic [address] polyneuropathy E 11.42 [facility] [address] Feb, [place] [address] [facility] [address] Feb, [place] [address] [facility] [address] Aug, Typ e 2 diabetes mellitus [place] with diabetic [address] polyneuropathy E 11.42 ; Other hammer toe (s) (acquired), righ t foot M20.41 and Other hammer toe(s) (acquired ), left foot M20.[address] Aug, [place] [address] Feb, Typ e 2 diabetes mellitus [place] with diabetic [address] polyneuropathy E 11.42 ; Lichen planus L4 3.9 and Psoriasis L40.[address] [facility] Nov, Typ e 2 diabetes mellitus [place] with diabetic [address] polyneuropathy E 11.42 ; Other hammer toe (s) (acquired), righ t foot M20.41 ; Other h ammer toe(s) (acquired ), left foot M20.42 ; Li calzada planus L43.9 ; S kin disorder L98.9 a nd Psoriasis L40.[address] [facility] Aug, Lic hen planus L43.9 [place] [address] 16 Jun, 2018 [place] [address] Jun, [place] [address] Jun, Lic hen planus L43.9 [place] [address] Jun, [place] [address] Jun, [place] [address] [facility] Jun, Tin ea pedis B35.3 ; [facility] [place] Xerosis cutis L 85.3 ; Type [address] 2 diabetes melli tus with polyneuropathy E 11.42 ; Skin disorder L9 8.9 and Other eczema L30 .[address] May, Tin ea pedis B35.3 [place] [address] [facility] [address] May, [place] [address] [facility] [address] May, [place] [address] [facility] May, Tin ea pedis B35.3 ; [place] Xerosis cutis L 85.3 ; [address] Fissure in skin of foot R23.4 ; [...] Appointment Provider Name:Amber fox, 2022-07-02 01:30:00 PM, [address] [place] [address] [place], [address], Pending Test *Uric Acid, Serum Pending Test ESR Pending Test X ray : Foot, left 3V Pending Test X ray : Foot, left 3V Pending Test X ray : Foot, left 3V Pending Test X ray : Foot, left 3V Future/Pending Procedure 25258- Biopsy of skin lesion Future/Pending Procedure 76769- Biopsy of Addt'l Lesi ons Future/Pending Procedure 76844- Biopsy of skin lesion VITAL SIGNS Height [...] MG day Extra Depth as directed Aug, Active [employer]oes 2019 (1 Pair) with Customized [...] Site X-RAY EXAM OF LEFT FOOT 3V Mar 26, 2022 TRIM SKIN LESIONS, OVER 4 March 05, 2019 BIOPSY OF SKIN LESION Jun 30, 2018 BIOPSY, SKIN ADD-ON Jun 30, 2018 BIOPSY OF SKIN LESION Jun 09, 2018 X-RAY EXAM OF LEFT FOOT 3V Sep 19, 2021 X-RAY EXAM OF LEFT FOOT 3V March 06, 2021 X-RAY EXAM OF LEFT FOOT 3V December 25, 2021 TRIM SKIN LESIONS, OVER 4 Apr 04, 2020 TRIM SKIN LESIONS, OVER 4 Sep 14, 2019 TRIM SKIN LESIONS, OVER 4 November 27, 2018 TRIM SKIN LESIONS, OVER 4 Jul 06, 2021 RESULTS Name Result Date Reference Range HEMOGLOBIN A1C (GLYCOHEMOGLOBIN) 2021-01-29 TOTAL HEMOGLOBIN (HGBA1C) HEMOGLOBIN A1C (HH) 6.6 HEMOGLOBIN A1C % (HH) ESTIMATED AVG GLUCOSE REASON FOR VISIT Insurance Providers [facility] Member Patient Patient Patient Patient Patient Subscriber Subscriber Subscriber Group Insurance Plan Plan Plan Plan ID Relationship Address Phone Name Date of ID Name Date of No Type Insurance Insurance Insurance Coverage to Subscriber Address Phone Name Dates [employer] [phone] [employer] [place] [id number] th Care Claims [address] [facility] [address] MEDICAL (GENERAL) HISTORY Type Description Date Medical [...] on back of neck 08/09/2020 Hospitalization History [facility]- for fractured pelvis l eft side 11/12-12/13 Hospitalization History [facility]- feet 04/14 Hospitalization History Urgent Care - [place] fractured ribs a nd toes 07/2021
[2022-06-13 08:23] LABS: MANUAL DIFF FLAG NO
--- OUTSIDE RECORDS SUMMARY | 2022-06-13 08:23 | XMS_ITS | Continuity of Care Document ---
:1950 Author Organization [facility] Address [address] [place] [address]- Care Team Providers Name Role Phone Ranjeet Rushing MD Primary Care Physician [place] [facility] [place]): [place]22 [facility] [address] [place], [place] [address] Attending Physician: Chandan Dorantes MD, Daria Ortega [...] Given 1Result Comment: [05/28/2017] [facility]: [id number] History: [id number] Note: VIS GIVEN-DATED Admin Note: vis [id number] Note: VIS [id number] Note: [id number] History: [facility] [id number] History: [facility] [id number] Comment: [10/17/2015] PER NICO AT [id number] Note: VIS [id number] Note: VIS GIVEN Medications 12 inch Grab [...] 11 Refills, Maintenance, 05/07/22 16:00:00 EDT, Powder, [facility]/pharmacy #0601, 2 puffs Inhalation Every 6 hours,PRN:as needed, 160, cm, 04/24/22 8:34:00 EDT, Height, 72.7, kg, 04/24/22 8:34:00... Start Date: 05/07/22 Status: Orderedalendronate 70 mg oral tablet 1 tablet, By Mouth, Every week, # 12 tablet, 1 Refills, [facility], 160, cm, 01/17/22 14:38:00 EDT, Height, 74.8, kg, 11/01/21 15:05:00 EST, Dry Weight Start Date: 01/30/22 Status: Orderedallopurinol 300 mg oral tablet 1, tablet, By Mouth, Daily, # 90 tablet, Refills 0, Route to Pharm[facility] Electronically, [facility], 160, cm, 02/21/22 15:11:00 EDT, Height, 74.8, kg, 11/01/21 15:05:00 EST, Dry Weight Start Date: 03/27/22 Status: OrderedBACK BRACE BACK BRACE, See Instructions, # 1 each, Refills 0, Tot. Refills 0, Maintenance, DX BACK PAIN M54.9 DANTE LIFETIME HT 5'3 WT 182 LB, 07/23/16 14:35:27, Compound Start Date: 07/23/16 Status: OrderedBD UF SHORT PEN NEEDLE [id number] BD UF SHORT PEN NEEDLE [id number], See Instructions, # 200 Unknown, 5 Refills, [...] Status: OrderedCVS VITAMIN D3 25 MCG SOFTGEL [facility] VITAMIN D3 25 MCG SOFTGEL, 1, capsule, By Mouth, Daily, # 90 capsule, 1 Refills, 160, cm, 10/16/21 14:42:00 EST, Height, 75, kg, 09/14/21 11:51:00 EST, Dry Weight Start Date: 10/17/21 Status: Orderedcyanocobalamin 500 mcg oral tablet 1 tablet = 500 mcg, By Mouth, Daily, # 90 tablet, 3 Refills, Maintenance, 04/12/22 16:02:00 EDT, Tablet, [facility]/pharmacy #0693, 160, cm, 04/10/22 14:31:00 EDT, [...] 05/23/22 13:56:00 EDT, Route to Pharmacy Electronically, [facility]/pharmacy #0693, Partial fill upon patient requestif [...] 1, Route to Pharmacy Electronically, [facility], 160, cm, 02/21/22 15:11:00 EDT, Height, 74.8, kg, 11/01/21 15:05:00 EST, Dry Weight Start Date: 03/12/22 Status: OrderedLidoderm 5% film 1 patch, Topically, Daily, # 30 patch, 11 Refills, Maintenance, 12/28/21 15:03:00 EDT, [facility]/pharmacy #0693, Partial fill [...] 3 Refills, Maintenance, 03/26/22 10:58:00 EDT, Capsule, [facility]/pharmacy #0693, 160, cm, 02/21/22 15:11:00 EDT, Height, 74.8, kg,11/01/21 15:05:00 EST, Dry Weight Start Date: 03/26/22 Status: Orderedmagnesium oxide 400 mg oral tablet 1 tablet, By Mouth, Daily, # 100 tablet, 2 Refills, [facility], 160, cm, 02/21/22 15:11:00 EDT,Height, 74.8, kg, 11/01/21 15:05:00 EST, Dry Weight Start Date: 03/28/22 Status: OrderedMelatonin 3 mg oral tablet 1 tablet = 3 mg, By Mouth, Daily at bedtime, PRN for insomnia, [facility], # 90 tablet, 3 Refills, Maintenance, 10/17/21 12:02:00 EST, Tablet, [facility]/pharmacy #0693, 1 [...] tablet, 0 Refills, Maintenance, 05/23/22 13:55:00EDT, Tablet, [facility]/pharmacy #0693, Partial fill upon patient request if the prescription is for a schedule II opioid drug., 160, cm, 05/17/22 9:55:00 ED... Start Date: 05/23/22 Status: OrderedMultivitamin 1 tablet, By Mouth, Daily, 0 Refills, Maintenance, 12/09/19 16:05:00 EDT Start Date: 12/09/19 Status: OrderedPen [place], 31 G x 5 mm BD Ultra [...] tablet, 0 Refills, Maintenance, 04/24/22 17:19:00EDT, Tablet, [facility]/pharmacy #0693, Partial fill [...] 09/15/21 17:53:00 EST, Route to Pharmacy Electronically, [facility]/pharmacy #0693, 160, cm, 09/14/21 11:51:00 [...] tablet, Refills 1, Route to Pharmacy Electronically, [facility], 160, cm, 11/27/21 14:08:00 EDT, Height, 74.8, kg, 11/01/21 15:05:00 EST, Dry Weight Start Date: 01/11/22 Status: OrderedtraMADol 50 mg oral tablet See Instructions, TAKE 1-2 TABLETS BY MOUTH EVERY 6 HOURS SCHEDULE FOLLOW VISIT, NEEDED FOR PAIN,# 240 tablet, 5 Refills, Maintenance, 01/17/22 11:33:00 EDT, [facility]/pharmacy #0693, 160, cm, 11/27/21 14:08:00 [...] 05/23/22 13:56:00 EDT, [facility] Electronically, [facility] 11 Refills, Soft Stop, 07/26/21 11:05:00 EST, [facility]/pharmacy #0693, 160, cm, 07/26/21 10:45:00 [...] Refills, Maintenance, 05/07/22 15:49:00 EDT, [facility], 160, cm, 04/24/22 8:34:00 EDT, Height, 72.7, [...] (osteoarthritis), Confirmed Active cervical Osteoporosis Confirmed Active *[facility] [phone] 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 50-70% bilaterally.3Per chart review meeting GFR [id number] MOCA done at [id number]'s golf ball trimmer is [facility] and patient sees Dr. Gume Mart Social History Social History Type Response Smoking Status Former smoker, quit more mark n 30 days ago entered on: 09/28/21 Sex Patient Care team information PersonnelName: Kristan SUTTON, Ranjeet Beatty Address: Address: [address] [place] [phone]
--- OUTSIDE RECORDS SUMMARY | 2022-06-13 08:23 | XMS_ITS | Continuity of Care Document ---
:1950 Author Organization [facility] Address [address] [place] [address]- Care Team Providers Name Role Phone Ranjeet Rushing MD Primary Care Physician [place] [facility] [place]09[place]22 [facility] [address] [place], [place] [address] Attending Physician: AdmtrEvans Admitting Physician: Admtr, Ye8 Referring Physician: Admtr, [...] (oldterm)11 07/19/08 Given 1Result Comment: [05/28/2017] [facility]: [id number] History: [id number] Note: VIS GIVEN-DATED Admin Note: vis [id number] Note: VIS [id number] Note: [id number] History: [facility] [id number] History: [facility] [id number] Comment: [10/17/2015] PER NICO AT [id number] Note: VIS [id number] Note: VIS GIVEN Medications 12 inch Grab [...] 11 Refills, Maintenance, 05/07/22 16:00:00 EDT, Powder, [facility]/pharmacy #0609, 2 puffs Inhalation Every 6 hours,PRN:as needed, 160, cm, 04/24/22 8:34:00 EDT, Height, 72.7, kg, 04/24/22 8:34:00... Start Date: 05/07/22 Status: Orderedalendronate 70 mg oral tablet 1 tablet, By Mouth, Every week, # 12 tablet, 1 Refills, [facility], 160, cm, 01/17/22 14:38:00 EDT, Height, 74.8, kg, 11/01/21 15:05:00 EST, Dry Weight Start Date: 01/30/22 Status: Orderedallopurinol 300 mg oral tablet 1, tablet, By Mouth, Daily, # 90 tablet, Refills 0, Route to Pharmacy Electronically, [facility], 160, cm, 02/21/22 15:11:00 EDT, Height, 74.8, kg, 11/01/21 15:05:00 EST, Dry Weight Start Date: 03/27/22 Status: OrderedBACK BRACE BACK BRACE, See Instructions, # 1 each, Refills 0, Tot. Refills 0, Maintenance, DX BACK PAIN M54.9 DANTE LIFETIME HT 5'3 WT 182 LB, 07/23/16 14:35:27, Compound Start Date: 07/23/16 Status: OrderedBD UF SHORT PEN NEEDLE [id number] BD UF SHORT PEN NEEDLE [id number], See Instructions, # 200 Unknown, 5 Refills, [...] Status: OrderedCVS VITAMIN D3 25 MCG SOFTGEL [facility] VITAMIN D3 25 MCG SOFTGEL, 1, capsule, By Mouth, Daily, # 90 capsule, 1 Refills, 160, cm, 10/16/21 14:42:00 EST, Height, 75, kg, 09/14/21 11:51:00 EST, Dry Weight Start Date: 10/17/21 Status: Orderedcyanocobalamin 500 mcg oral tablet 1 tablet = 500 mcg, By Mouth, Daily, # 90 tablet, 3 Refills, Maintenance, 04/12/22 16:02:00 EDT, Tablet, [facility]/pharmacy #0693, 160, cm, 04/10/22 14:31:00 EDT, Height, [...] 05/23/22 13:56:00 EDT, Route to Pharmacy Electronically, [facility]/pharmacy #0693, Partial fill upon patient requestif the [...] tablet, Refills 1, Route to Pharmacy Electronically, [facility], 160, cm, 02/21/22 15:11:00 EDT, Height, 74.8, kg, 11/01/21 15:05:00 EST, Dry Weight Start Date: 03/12/22 Status: OrderedLidoderm 5% film 1 patch, Topically, Daily, # 30 patch, 11 Refills, Maintenance, 12/28/21 15:03:00 EDT, [facility]/pharmacy #0693, Partial fill upon patient request if the prescription is for a schedule II opioid drug., 1 patch Topically Daily,x30 days, 160, cm, 11/27/21 14:... Start Date: 12/28/21 Stop Date: 12/23/22 Status: OrderedLyrica 150 mg oral capsule 1 capsule = 150 mg, By Mouth, 2 times a day, DOSAGE INCREASE, # 60 capsule, 3 Refills, Maintenance, 03/26/22 10:58:00 EDT, Capsule, [facility]/pharmacy #0693, 160, cm, 02/21/22 15:11:00 EDT, Height, 74.8, kg,11/01/21 15:05:00 EST, Dry Weight Start Date: 03/26/22 Status: Orderedmagnesium oxide 400 mg oral tablet 1 tablet, By Mouth, Daily, # 100 tablet, 2 Refills, [facility], 160, cm, 02/21/22 15:11:00 EDT,Height, 74.8, kg, 11/01/21 15:05:00 EST, Dry Weight Start Date: 03/28/22 Status: OrderedMelatonin 3 mg oral tablet 1 tablet = 3 mg, By Mouth, Daily at bedtime, PRN for insomnia, [facility], # 90 tablet, 3 Refills, Maintenance, 10/17/21 12:02:00 EST, Tablet, [facility]/pharmacy #0693, 1 tablet By Mouth [...] tablet, 0 Refills, Maintenance, 05/23/22 13:55:00EDT, Tablet, [facility]/pharmacy #0693, Partial fill upon patient request if the prescription is for a schedule II opioid drug., 160, cm, 05/17/22 9:55:00 ED... Start Date: 05/23/22 Status: OrderedMultivitamin 1 tablet, By Mouth, Daily, 0 Refills, Maintenance, 12/09/19 16:05:00 EDT Start Date: 12/09/19 Status: OrderedPen [place], 31 G x 5 mm BD [...] tablet, 0 Refills, Maintenance, 04/24/22 17:19:00EDT, Tablet, [facility]/pharmacy #0693, Partial fill upon patient [...] 09/15/21 17:53:00 EST, Route to Pharmacy Electronically, [facility]/pharmacy #0693, 160, cm, 09/14/21 11:51:00 [...] tablet, Refills 1, Route to Pharmacy Electronically, [facility], 160, cm, 11/27/21 14:08:00 EDT, Height, 74.8, kg, 11/01/21 15:05:00 EST, Dry Weight Start Date: 01/11/22 Status: OrderedtraMADol 50 mg oral tablet See Instructions, TAKE 1-2 TABLETS BY MOUTH EVERY 6 HOURS SCHEDULE FOLLOW VISIT, NEEDED FOR PAIN,# 240 tablet, 5 Refills, Maintenance, 01/17/22 11:33:00 EDT, [facility]/pharmacy #0693, 160, cm, 11/27/21 14:08:00 [...] 05/23/22 13:56:00 EDT, Route to Pharmacy Electronically, [facility]/pharmacy #0693, Partial fill upon patientrequest if the [...] Refills, Maintenance, 04/19/21 11:35:00 EDT, Powder, [facility]/pharmacy #0693, Partial fill upon patient [...] 11 Refills, Soft Stop, 07/26/21 11:05:00 EST, [facility]/pharmacy #0693, 160, cm, 07/26/21 10:45:00 EST, Height,77.27, [...] Refills, Maintenance, 05/07/22 15:49:00 EDT, [facility], 160, cm, 04/24/22 8:34:00 EDT, Height, 72.7, [...] (osteoarthritis), Confirmed Active cervical Osteoporosis Confirmed Active *[facility] [phone] 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 Gume Mart Social History Social History Type Response Smoking Status Former smoker, quit more mark n 30 days ago entered on: 09/28/21 Sex Patient Care team information PersonnelName: Kristan SUTTON, Ranjeet Beatty Address: Address: [address] [place] [address]
--- OUTSIDE RECORDS SUMMARY | 2022-06-13 08:24 | XMS_ITS ---
:1950 Author Care Team Providers Name Role Phone ZENA DEL ROSARIO MD Primary Care Provider [phone] Allergies Code Code System Name Reaction Severity Status Onset 589580 RxNorm Ambien ? ? Active ? 403362 RxNorm Benadryl ? ? Active ? 974583 RxNorm LAC-HYDRIN ? ? Active ? 1536651 RxNorm Latex ? ? Active ? Medications [...] AutoShield Duo Pen Needle 30 gauge x 16 Completed ? 08/12/2021 BD Ultra-Fine Mini Pen Needle 31 gauge x 3/16 Completed ? 08/12/2021 BD Ultra-Fine Short Pen Needle 31 gauge x /16 Completed ? 05/31/2022 USE TO INJECT INSULIN [...] solution Active ? Not available Humira Pen Mhylvjkss-Djmrrgs-Mgam Hid Sup Start 40 Active ? Not [...] 07/17/2020 XR, Ankle, 3 or More View [facility] [facility] [place] [address] (Work Place) 11/11/2020 XR, Hip + Pelvis, Unilateral [facility] [address] [facility] [place] [address] (Work Place) 11/11/2020 XR, Pelvis, 1 or 2 View [facility] [address] [place] [place] [address] (Work Place) 01/20/2021 XR, Tibia + Fibula, 2 View [facility] [facility] [place] [address] (Work Place) 02/25/2021 XR, Ankle, 3 or More View [facility] [address] [facility] [place] [address] (Work Place) 08/12/2021 XR, Foot, 3 or More View [facility] [facility] [place] [address] (Work Place) 08/12/2021 XR, Ribs, Unilateral, W/ PA Chest [facility] [address] [facility] [place] [address] (Work Place) 05/31/2022 XR, Knee, 3 View [facility] [address] [facility] [place] [address] (Work Place) 05/31/2022 XR, Ankle, 3 or More View [facility] [address] [facility] [place] [address] (Work Place) Results Lab Results Date Name Specimen Result Interpretation Description Value Range Status Address ? 02/09/2022 Culture, ? Specimen clean catch ? Fin rao [facility] Urine Description (urine) Refe rence Laboratori es: [address], [place] ? ? ? Special none ? Final [facility] Requests Referenc e Laboratori es: [address], [place] ? ? ABNORMAL Culture ? ? Final [place] Reference Labor[facility]: [address], [place] ? ? ? Report Status final ? Final [facility] 02/12/2022 Refere nce Laboratori es: [address], [place] ? ? ? Organism ? ? Final [place] Reference Laborator[facility]: [address], [place] ? ? ? Method method min. ? Final [facility] gruber inhib. conc. Refe rence (mcg/mL) Laborato [...] ? Intermedia Gentamicin gentamicin ? Nitza mclean [facility] te intermediate Refe rence Laboratori es: [address], [place] ? ? Susceptibl Levofloxacin levofloxacin ? Final [facility] e susceptible Refer ence Laboratori es: [address], [place] ? ? Susceptibl Meropenem meropenem ? Final [facility] e susceptible Refer ence Laboratori es: [...] ? Leukocytes Moderate ++ ? ? [facility] Dipstick [place] ow: [address], [place] ? ? ? Nitrite positive ? ? [facility] [place] : [address], [place] ? ? ? Urobilinogen 0.2-Normal ? ? [facility] [place] : [address], [place] ? ? ? Protein Trace ? ? [facility] [place] : [address], [place] ? ? ? Ph 7.0 ? ? [facility] [place] : [address], [place] ? ? ? Blood Trace(non-hemo ? ? [facility] lyzed) [place] : [address], [place] ? ? ? Specific 1.010 ? ? [facility] [place] w: [address], [place] ? ? ? Ketone Negative ? ? [facility] [place] : [address], [place] ? ? ? Bilirubin Negative ? ? [facility] [place] : [address], [place] ? ? ? Glucose Negative ? ? [facility] [place] : [address], [place] ? ? ? Appearance cloudy ? ? [facility] [place] : [address], [place] ? ? ? Color yellow ? ? [facility] [place] : [address], [place] 05/28/2021 Culture, ? Specimen E swab right ? Fi nal [facility] Superficial Description foot Reference Wound Laboratori es: [address], [place] ? ? ? Special none ? Final [facility] Requests Referenc e Laboratori es: [address], [place] ? ? ? gram Stain ? ? Final [place] Reference Laboratori [facility]: [address], [place] ? ? ABNORMAL Culture ? ? Final [place] Reference Laborator[facility]: [address], [place] ? ? ? Report Status final ? Final [facility] 05/31/2021 Refere nce Laboratori es: [address], [place] ? ? ? Organism ? ? Final [place] Reference Laboratori [facility]: [address], [...] ? ? Susceptibl Rifampin ? ? Final [place] Reference Laboratori es: [address] [...] Ankle; Sprain of Left Knee Lo Shi SATELLITE DISH REPAIRER: [address], [place] [address], Ph. 04/17/2022 Subconjunctival Hemorrhage of Right Eye Destinee Conte, PA: [address], [place] [address], Ph. 02/09/2022 Left Flank Pain; Acute Urinary Tract Inf ection Destinee Conte PA: [address], [place] [address], Ph. 09/05/2021 Cellulitis of Lower Limb Raouma Perez CARMEN Fry: [address], [place] [address], Ph. 08/12/2021 Falling Injury; Laceration of Great Toe; Sprain of Left Ankle; Closed Fracture of Fourth Metatarsal Bone; Fracture of Left Rib Brandon Dunn MD: [address], [place] [address], Ph. 05/28/2021 Cellulitis of Left Foot; Chronic Ulcer o f Skin; Cellulitis of Right Foot CARMEN Flor: [place] [address], Ph. 02/25/2021 Pain of Left Ankle Joint Destinee Conte PA: [address], [place] [address], Ph. 01/20/2021 Pain in Left Lower Limb Latosha Brown, SATELLITE DISH REPAIRER: [address], [place] [address], Ph. Social History Tobacco Smoking Status Current Some Day Smoker Vaccine List Vaccine Type COVID-19, mRNA, LNP-S, PF, 30 mcg/0.3 mL dose ([employer]) 09/03/2020 09/24/2020 influenza, high dose seasonal 05/05/2015 [...]
--- OUTSIDE RECORDS SUMMARY | 2022-06-13 08:24 | XMS_ITS | Encounter Summary ---
:1950 Author Care Team Providers Name Role Phone Ranjeet Rushing MD Primary Care Provider [phone] Reason for Visit ankle injury; Left ankle pain pt. c/o L ankle pain, L knee pain, yared ed and fell Xtoday Assessment and Plan Assessment Note Yoel on foot with a surgical shoe. [place] te leg, ice, Tylenol dosed per bottle [...] Imaging XR, Knee, 3 View 05/31/2022 [facility] ? XR, Ankle, 3 or More View 05/31/2022 [facility] Medications Name Start Date ? [...] unit/mL subcutaneous solutio n ? Humira Pen Ddztapdzh-Ctaylcw-Gayj Hid Sup Start 40 mg/ 0.8 mL [...] Code Code System Name Reaction Severity Onset 491837 RxNorm Ambien ? ? ? 315868 RxNorm Benadryl ? ? ? 953755 RxNorm LAC-HYDRIN ? ? ? 3051830 RxNorm Latex ? ? ? Problems Name Status Onset Date Source ? Depressive Disorder Active 09/22/2019 ? Edema Active 09/22/2019 ? Procedures Date Name Performed by ? 08/25/1998 Bone Fusion Information not avai lable ? Procedure on Neck Information not avai lable ? Section Information not avai lable Notes: X3 05/31/2022 [facility] [address] [place] [address] (Work Place) 05/31/2022 XR, Ankle, 3 or More View [facility] [address] [place] [address] (Work Place) Vaccine List Vaccine Type COVID-19, mRNA, LNP-S, PF, 30 mcg/0.3 mL dose ([employer]) 09/03/2020 09/24/2020 influenza, high dose seasonal 05/05/2015 [...] Ankle; Sprain of Left Knee Lo Shi, GUEST RELATIONS COORDINATOR: [address] , [place] [address], Ph. History of Present Illness ? Knee [...]
--- OUTSIDE RECORDS SUMMARY | 2022-06-13 08:24 | XMS_ITS | Encounter Summary ---
:1950 Author Care Team Providers Name Role Phone Ranjeet Rushing MD Primary Care Provider [phone] Reason for Visit Right red eye R [...] unit/mL subcutaneous solutio n ? Humira Pen [place]-Sbmcaxl-Fuco Hid Sup Start 40 mg/ 0.8 mL [...] Code Code System Name Reaction Severity Onset 019097 RxNorm Ambien ? ? ? 061403 RxNorm Benadryl ? ? ? 979644 RxNorm LAC-HYDRIN ? ? ? 6709376 RxNorm Latex ? ? ? Problems Name Status Onset Date Source ? Depressive Disorder Active 09/22/2019 ? Edema Active 09/22/2019 ? Procedures Date Name Performed by ? 08/25/1998 Bone Fusion Information not avai lable ? Procedure on Neck Information not avai lable ? Section Information not avai lable Notes: X3 Vaccine List Vaccine Type COVID-19, mRNA, LNP-S, PF, 30 mcg/0.3 mL dose ([employer]) 09/03/2020 09/24/2020 influenza, high dose seasonal 05/05/2015 [...] [place]: [address], [place] [address], Ph. History of Present Illness ? Red [...]
[2022-06-13 08:26] LABS: Basophils Percent Auto 0.4 % (0-2); Eosinophils Absolute Auto 0.2 X10*3/uL (0.0-0.4); Eosinophils Percent Auto 3.1 % (0-4); Hemoglobin 13.9 g/dl (12.0-16.0); Imm Gran Abs Auto 0.04 X10*3/uL (0.00-0.03); Imm Gran Pct Auto 0.5 % (0.0-0.4); Lymphocytes Absolute Auto 1.1 X10*3/uL (1.2-4.9); Mean Corpuscular HGB Conc 33.1 g/dl (31.0-35.0); Mean Corpuscular Hemoglobin 31.2 pg (27.0-33.0); Mean Corpuscular Volume 94.4 fL (80.0-98.0); Mean Platelet Volume 11.4 fL (9.4-12.3); Monocytes Absolute Auto 0.6 X10*3/uL (0.1-1.2); Monocytes Percent Auto 7.5 % (2-11); Neutrophils Absolute Auto 5.8 x10*3/uL (2.0-8.3); Neutrophils Percent Auto 74.5 % (45-73); Platelet Count 204 X10*3/uL (160-400); Red Blood Count 4.45 X10*6/uL (4.20-5.50); Red Cell Distribution Width 14.4 % (11.0-16.0); White Blood Count 7.7 X10*3/uL (4.8-10.8)
--- NOTE | 2022-06-13 08:28 | PC.NURSE ---
PT RETURNED FROM [facility] VIA W/C WITH STRETCHER.
[2022-06-13 08:50] LABS: Alanine Aminotransferase 27 U/L (0-31); Albumin Level 3.6 g/dL (3.5-5.0); Alkaline Phosphatase 85 U/L (39-117); Anion Gap 15 (12-20); Aspartate Amino Transferase 27 U/L (5-31); Bilirubin Direct 0.2 mg/dL (0.0-0.5); Bilirubin Total 0.3 mg/dL (0.0-1.0); Blood Urea Nitrogen 34 mg/dL (9-16); COVID-19 Test Negative (Negative); Calcium 10.1 mg/dL (8.4-10.2); Carbon Dioxide 32 mmol/L (22-29); Chloride 101 mmol/L (96-108); Creatinine Clr Calc Pharmacy 42.4; Estimated Glomerular Filt Rate 48; Glucose Random 90 mg/dL (60-115); IDNOW Serial# 55D5AD1C; Magnesium 2.1 mg/dL (1.6-2.6); Sodium 143 mmol/L (135-145)
[2022-06-13 10:43] LABS: Appearance Urine Cloudy; Color Urine Yellow; Glucose Urine UA Negative (Negative); Leukocyte Esterase Urine Large (3+) (Negative); Nitrite Urine Positive (Negative); UMIC TRIGGER UACC YES; Urine Blood Negative (Negative); Urine Ketones Negative (Negative); Urine Protein 100 (2+) mg/dL (Neg-Trace)
[2022-06-13 10:53] LABS: Amphetamine Screen Urine Not Detected (Not Detect); Barbiturates, Urine Not Detected (Not Detect); Benzodiazepines Screen Urine Not Detected (Not Detect); Cannabinoid Screen Urine Not Detected (Not Detect); Cocaine Screen Urine Not Detected (Not Detect); Fentanyl, urine Not Detected (Not Detect); Opiate Screen Urine Not Detected (Not Detect); Phencyclidine Screen Urine Not Detected (Not Detect)
[2022-06-13 11:15] LABS: Bacteria Urine 4+ (None Seen); Hyaline Casts Urine 0-2 /LPF (0-2); RBC Urine 0-2 /HPF (0-2); UACC Culture Trigger YES; WBC Urine 21-50 /HPF (0-5)
--- NOTE | 2022-06-13 12:41 | PC.NURSE ---
smart sheet faxed to [facility]
--- NOTE | 2022-06-13 12:46 | PHA.MEDREC ---
Pharmacy Consult ? Medication Reconciliation Pharmacy has completed the medication reconciliation. Attempted to call daughter, no response. Patient recently discharge in April. Utilize discharge summary and pharmacy claim history to complete med rec. Maura RomeroD
[2022-06-13 13:04] VITALS: BP 136/76; PULSE 97; RESP 17; TEMP 36.8; O2SAT 96
[2022-06-13 13:13] LABS: Glucose, Whole Blood 75 mg/dL (60-115)
--- NOTE | 2022-06-13 13:51 | PC.NURSE ---
care team (hector) at bedside. pt/daughter aware of plan of care.
== END 2022-06-13 16:05 | disposition home or self-care (01) ==
PROVIDERS: Emergency Provider Emergency Medicine; PCP Internal Medicine
DX: N39.0 Urinary tract infection, site not specified (principal); R06.02 Shortness of breath; F41.1 Generalized anxiety disorder; F43.0 Acute stress reaction; Z20.822 Contact with and (suspected) exposure to COVID-19; Z79.899 Other long term (current) drug therapy; Z87.891 Personal history of nicotine dependence
CPT/HCPCS: 36415; 71045; 80048; 80076; 80307; 81001; 82947; 83735; 85025; 87086; 87635; 93005; 99284; 99285

== ENCOUNTER 2022-06-28 07:43 | Emergency (ER) | payer OTHER, SELFPAY ==
--- NOTE | ~2022-06-28 | US_ITS ---
EXAMINATION: US VENOUS ULTRASOUND WITH DOPPLER LOWER EXTREMITY, LEFT CLINICAL INFORMATION: Swelling and pain COMPARISON: None TECHNIQUE: Ultrasound of the deep veins is performed from the hip to the calf with compression sonography and color and pulse Doppler assessment. Spectral analysis with color-flow imaging is performed. FINDINGS: There is normal venous compression and respiratory variation and augmented flow. The visualized common femoral vein, superficial femoral vein, profunda femoral vein, popliteal vein, and the trifurcation region shows no evidence of deep venous thrombosis. There is no significant popliteal fossa cyst. If the patient's symptoms persist, followup ultrasound in 5 days 7 days might be of value to exclude proximal propagation from a non-visualized calf vein. US/US venous duplex LE LT IMPRESSION: No DVT demonstrated in the left lower extremity.
[2022-06-28 07:57] VITALS: BP 179/82; PULSE 94; RESP 12; TEMP 36.4; O2SAT 95
[2022-06-28 08:05] VITALS: BP 171/86; BP 179/82; PULSE 92; PULSE 95; RESP 16; TEMP 36.4; O2SAT 95; BMI 27.6
--- NOTE | 2022-06-28 08:12 | ED_ITS ---
HPI - General Adult General Chief complaint: General Medical Stated complaint: LLE SWELLING X'S DAYS Time Seen by Provider: 06/28/22 08:12 Source: patient and EMS Mode of arrival: EMS Limitations: no limitations History of Present Illness HPI narrative: Patient is a 72 year old assigned female at with a history of COPD and venous stasis dermatitis presenting to the emergency department today with concerns that her left leg is swollen. Patient states that both her lower legs are always swollen but she is concerned that her left leg is more swollen. Patient denies any dizziness, lightheadedness, abdominal pain, nausea, vomiting, fever, chills, blurry vision, double vision, loss of vision, chest pain, difficulty breathing, shortness of breath, back pain, night sweats, pain with urination, increased urinary frequency, increased urinary urgency, blood in her urine or stool, syncope or a near syncopal episode, recent trauma or falls, bowel incontinence, bladder incontinence, bowel retention, bladder retention, or any other complaints at this time. Onset (ago): month(s) Location: left and lower extremity Radiation: non-radiation Severity: mild Severity scale (1-10): 2 Relieving factors: none Exacerbating factors: none Associated symptoms: denies other symptoms Treatments prior to arrival: none Related Data Home Medications Medication Instructions Recorded Confirmed cholecalciferol (vitamin D3) 25 25 mcg PO DAILY 06/09/22 06/13/22 mcg (1,000 unit) tablet (Vitamin D3) fluoxetine 20 mg capsule 40 mg PO DAILY 06/09/22 06/13/22 insulin degludec 200 unit/mL (3 55 unit subcut DAILY 06/09/22 06/13/22 mL) subcutaneous pen (Tresiba FlexTouch U-200 insulin) lidocaine 5 % topical patch 1 patch topical DAILY 06/09/22 06/13/22 tramadol 50 mg tablet 50 mg PO Q6H PRN Pain 06/09/22 06/13/22 acetaminophen 325 mg tablet 2 tab PO Q6H PRN mild pain 06/13/22 06/13/22 Previous Rx's Medication Instructions Recorded arm brace (Wrist Brace) #1 ea 06/29/20 albuterol sulfate 90 mcg/actuation 2 puff inhalation Q4-6H PRN 05/13/22 aerosol inhaler shortness of breath or wheezing 30 days #8.5 grams alendronate 70 mg tablet 70 mg PO DEGROOT@0900 30 days #5 tabs 05/13/22 allopurinol 300 mg tablet 300 mg PO DAILY #30 tabs 05/13/22 cyanocobalamin (vitamin B-12) 500 500 mcg PO DAILY 30 days #30 tabs 05/13/22 mcg tablet fluticasone fur. 100 mcg-umeclid 1 ea PO DAILY #60 ea 05/13/22 62.5 mcg-vilant 25 mcg inhalat.powder (Trelegy Ellipta) furosemide 40 mg tablet 40 mg PO BID 30 days #60 tabs 05/13/22 liraglutide 0.6 mg/0.1 mL (18 mg/3 1.8 mg (0.3 mL) subcut DAILY #9 mL 05/13/22 mL) subcutaneous pen injector (Victoza 3-Toby) magnesium oxide 400 mg PO DAILY #30 tabs 05/13/22 melatonin 3 mg tablet 3 mg PO BEDTIME PRN insomnia #30 05/13/22 tabs mirtazapine 15 mg tablet 15 mg PO BEDTIME 30 days #30 tabs 05/13/22 multivitamin 1 tab PO DAILY #30 tabs 05/13/22 pregabalin 150 mg capsule 150 mg PO BID 30 days #60 caps 05/13/22 risankizumab-rzaa 150 mg/mL 1 ea subcut Q90D #30 mL 05/13/22 subcutaneous pen injector (Skyrizi) simvastatin 10 mg tablet 10 mg PO BEDTIME 30 days #30 tabs 05/13/22 spironolactone 100 mg tablet 100 mg PO DAILY 30 days #30 tabs 05/13/22 cefuroxime axetil 250 mg tablet 250 mg PO BID 7 days #14 tabs 06/13/22 Allergies Allergy/AdvReac Type Severity Reaction Status Date / Time diphenhydramine Allergy Intermediate Hives Verified 05/10/22 10:43 [From Benadryl] lactic acid [From LAC-HYDRIN] Allergy Intermediate RASH Verified 04/08/22 15:07 latex [Latex] Allergy Intermediate HIVES Verified 04/08/22 15:07 varenicline [From CHANTIX] Allergy Intermediate RASH Verified 04/08/22 15:07 zolpidem [From AMBIEN] AdvReac Severe SLEEP Verified 05/10/22 10:43 WALKING Review of Systems Constitutional: Constitutional: Reports no additional constitutional complaints, Denies chills, Denies fever(s) and Denies night sweats Eyes: Eyes: Reports no additional eye complaints, Denies blurry vision, Denies change in vision, Denies diplopia, Denies eye discharge, Denies loss of vision and Denies eye pain ENT: Denies dizziness Cardiovascular: Cardiovascular: Reports no additional cardiovascular compl aints, Denies chest pain, Denies lightheadedness, Denies Loss of Consciousness and Denies dyspnea Respiratory: Respiratory: Reports no additional respiratory complaints and Denies dyspnea Gastrointestinal: Gastrointestinal: Reports no additional gastrointestinal complaints, Denies abdominal pain, Denies melena, Denies hematochezia, Denies change in bowel habits and Denies change in stool character Genitourinary: Genitourinary: Denies hematuria, Denies urinary frequency, Denies dysuria, Denies urinary incontinence, Denies urinary hesitancy and Denies urinary urgency Musculoskeletal: Musculoskeletal: Reports no additional musculoskeletal complaints, Denies numbness and Denies tingling Comments: left lower leg swelling Neurologic: Denies dizziness, Denies loss of vision, Denies numbness and Denie s tingling Psychiatric: Psychiatric: Reports no additional psychiatric complaints Endocrine: Endocrine: Reports no additional endocrine complaints Hematologic/Lymphatic: Hematologic/Lymphatic: Reports no additional hematologic/lymphatic complaints Allergic/Immunologic: Allergic/Immunologic: Reports no additional allergic/immunologic complaints FOR[facility]LY [facility], [facility] Past Medical History Attestation statement: The following information was validated with the patient. Source: old records reviewed Medical History Acute UTI Anxiety Back pain Carpal tunnel syndrome Cellulitis Chronic back pain Chronic respiratory failure CKD (chronic kidney disease) COPD (chronic obstructive pulmonary disease) Depression Diabetes Diabetic neuropathy HTN (hypertension) Hyperlipidemia Osteoporosis Pneumonia Psoriasis Sepsis Spondylosis Tobacco dependence Venous stasis dermatitis Surgical History H/O section S/P cervical spinal fusion Family History Family History Mother Diabetes Social History Social History Household Members: None Household Members Other:: daughter helps out daily Housing: Apartment Do you presently have visiting nurse or other home services: Yes Alcohol intake: never Patient Tobacco Use Status: Former Tobacco user Quit Date: 2-3 weeks ago Tobacco use type: Cigarette Cigarette Packs Per Day: 0 Cigarettes Per Day: 0 e-Cigarette/Vaping Use: Never Used Second Hand Smoke Exposure: No Substance Use Type: Marijuana Advance Directives: No Advance Directives Information Provided: Yes Advance Directives Date on File: 06/07/20 service: No Current occupational status: unemployed Sexual orientation: Straight/Heterosexual Physical Exam ED Vital Signs: Vital Signs - 24 hr 06/28/22 07:57 06/28/22 08:05 06/28/22 10:58 Temperature 97.6 F 97.6 F 97.7 F Pulse Rate 94 95 96 Respiratory Rate 12 16 13 Blood Pressure 179/82 H 179/82 H 176/83 H Pulse Oximetry 95 95 93 Oxygen Delivery Method Room Air Room Air Room Air BMI result Body Mass Index 27.6 Const General: cooperative, no acute distress, alert and awake Nutritional Appearance: well nourished Orientation/consciousness: patient oriented x3 Limitations: no limitations HENMT Head: Yes normal to inspection and Yes atraumatic Ears: hearing grossly normal bilaterally and external ears normal General nose exam: Normal external nose present, no nasal discharge noted and no epistaxis Face and sinus: Yes normal facial exam, No abrasion and No laceration Mouth: Normal oral and palatal mucosa present, no drooling and no muffled voice Eyes General: appearance normal, both eyes and all related structures Periorbital: periorbital findings normal Eyelids: Yes eyelids normal Conjunctivae: conjunctivae normal Pupils: Equal, round and reactive pupils present EOM: EOMs intact bilaterally Neck Neck: Yes normal visual inspection, Yes full ROM and Yes no lymphadenopathy Chest Chest palpation & inspection: normal inspection of the chest Resp Effort & Inspection: normal respiratory effort and able to speak in complete sentences Auscultation: clear to auscultation bilaterally Cardio Rate: regular rate Rhythm: regular rhythm GI Inspection: Yes normal to inspection Neuro General: patient oriented x3 and moves all extremities Cranial nerves: Yes Equal, round and reactive pupils present Cognition (Neuro): normal cognition Motor exam (neuro): 5/5 motor strength present throughout Sensory Exam: Normal double simultaneous stimulation for sensation Coordination: [id number]-al-[id number] test normal Extrem Other: bilateral venous stasis dermatitis General: Yes full ROM and Yes capillary refill normal Psych Appearance: grossly normal Mental Status: mental status grossly normal Affect: normal affect Attitude: cooperative Thought process: Normal thought process present Thought content: Normal thought content present Insight: Good insight present (Psych) Medical Decision Making MDM Narrative Medical decision making narrative: Patient is a 72 year old assigned female at with a history of COPD and venous stasis dermatitis presenting to the emergency department today with left lower leg swelling. Patient's physical exam showed bilateral lower leg venous stasis dermatitis. Patient's blood work was unremarkable. Patient's left lower leg US showed no acute process. I explained my physical exam findings as well as all test results to the patient. I answered all questions asked by the patient. I stressed the importance of the patient taking her medication as prescribed. I stressed the importance of the patient following up with her primary care provider. I stressed the importance of the patient returning to the emergency department immediately if her symptoms were to worsen or if she were to develop any dizziness, shortness of breath, difficulty breathing, chest pain, blurry vision, loss of vision, nausea, vomiting, abdominal pain, fever, chills, back pain, or any other complaints. Patient verbalized agreement and understanding with this treatment plan and discharge. Medical Records Medical records reviewed: Yes I reviewed the patient's medical records. Lab Data Lab results reviewed: Yes I reviewed the patient's lab results. Result diagrams: 06/28/22 08:46 06/28/22 08:46 Labs: Lab Results 06/28/22 06/28/22 06/28/22 Range/Units 08:46 08:46 08:46 WBC 8.0 (4.8-10.8) X10*3/uL RBC 5.00 (4.20-5.50) X10*6/uL Hgb 15.5 (12.0-16.0) g/dl Hct 47.6 H (37.0-47.0) % MCV 95.2 (80.0-98.0) fL MCH 31.0 (27.0-33.0) pg MCHC 32.6 (31.0-35.0) g/dl RDW 14.6 (11.0-16.0) % Plt Count 217 (160-400) X10*3/uL MPV 11.5 (9.4-12.3) fL Immature Gran % (Auto) 0.4 (0.0-0.4) % Neut % (Auto) 73.6 H (45-73) % Lymph % (Auto) 14.9 L (20-40) % [place] % (Auto) 8.4 (2-11) % Eos % (Auto) 2.3 (0-4) % Baso % (Auto) 0.4 (0-2) % Lymph # (Auto) 1.2 (1.2-4.9) X10*3/uL [place] # (Auto) 0.7 (0.1-1.2) X10*3/uL Eos # (Auto) 0.2 (0.0-0.4) X10*3/uL Baso # (Auto) 0.0 (0.0-0.2) X10*3/uL Abs Immat Gran (auto) 0.03 (0.00-0.03) X10*3/uL Absolute Neuts (auto) 5.9 (2.0-8.3) x10*3/uL Absolute Nucleated RBC 0.000 (0.0-0.012) X10*3/uL Nucleated RBC % (auto) 0.0 (0.0-0.2) /100WBC Sodium 141 (135-145) mmol/L Potassium 3.9 D (3.3-5.1) mmol/L Chloride 98 (96-108) mmol/L Carbon Dioxide 30 H (22-29) mmol/L Anion Gap 17 (12-20) BUN 29 H (9-16) mg/dL Creatinine 1.11 (0.5-1.4) mg/dL Estim Creat Clear Calc 41.8 Estimated GFR 48 Random Glucose 128 H (60-115) mg/dL Calcium 9.6 (8.4-10.2) mg/dL Magnesium 2.0 (1.6-2.6) mg/dL Total Bilirubin 0.5 (0.0-1.0) mg/dL AST 35 H (5-31) U/L ALT 38 H (0-31) U/L Alkaline Phosphatase 100 (39-117) U/L B-Natriuretic Peptide 19 (<100) pg/mL Total Protein 7.0 (6.5-8.0) g/dL Albumin 4.1 (3.5-5.0) g/dL Imaging Data Venous US: Attestation: I personally reviewed and interpreted this imaging study as follows: My impression: No acute process. Radiologist's impression: EXAMINATION:? US VENOUS ULTRASOUND WITH DOPPLER LOWER EXTREMITY, LEFT CLINICAL INFORMATION:? Swelling and pain COMPARISON:? None TECHNIQUE: Ultrasound of the deep veins is performed from the hip to the calf with compression sonography and color and pulse Doppler assessment. Spectral analysis with color-flow imaging is performed. FINDINGS: There is normal venous compression and respiratory variation and augmented flow. The visualized common femoral vein, superficial femoral vein, profunda femoral vein, popliteal vein, and the trifurcation region shows no evidence of deep venous thrombosis. ? There is no significant popliteal fossa cyst. If the patient's symptoms persist, followup ultrasound in 5 days 7 days might be of value to exclude proximal propagation from a non-visualized calf vein. US/US venous duplex LE LT IMPRESSION: No DVT demonstrated in the left lower extremity. Dictated By: Oral Andersen MD Signed By: Electronically signed by Oral Andersen MD 06/28/22 1004 Discharge Plan Discharge Clinical Impression: Venous stasis dermatitis Patient Disposition: Home, Self-Care Instructions: Venous Insufficiency (DC) Additional Instructions: Follow up with your primary care provider. Return to the emergency department immediately if your symptoms worsen or if you develop any dizziness, shortness of breath, difficulty breathing, chest pain, blurry vision, loss of vision, nausea, vomiting, abdominal pain, fever, chills, back pain, or any other complaints. Prescriptions: No Action mirtazapine 15 mg Tablet 15 mg PO BEDTIME 30 Days Qty: 30 0RF multivitamin Tablet 1 tab PO DAILY Qty: 30 0RF furosemide 40 mg tablet 40 mg PO BID 30 Days Qty: 60 0RF alendronate 70 mg tablet 70 mg PO DEGROOT@0900 30 Days Qty: 5 0RF spironolactone 100 mg tablet 100 mg PO DAILY 30 Days Qty: 30 0RF simvastatin 10 mg tablet 10 mg PO BEDTIME 30 Days Qty: 30 0RF melatonin 3 mg tablet 3 mg PO BEDTIME PRN (Reason: insomnia) Qty: 30 0RF cyanocobalamin (vitamin B-12) 500 mcg tablet 500 mcg PO DAILY 30 Days Qty: 30 0RF allopurinol 300 mg tablet 300 mg PO DAILY Qty: 30 0RF albuterol sulfate 90 mcg/actuation HFA aerosol inhaler 2 puff inhalation Q4-6H PRN (Reason: shortness of breath or wheezing) 30 Days Qty: 8.5 0RF Rx Instructions: use with spacer device pregabalin 150 mg capsule 150 mg PO BID 30 Days Qty: 60 0RF Victoza 3-Toby 0.6 mg/0.1 mL (18 mg/3 mL) pen injector 1.8 mg subcut DAILY Qty: 9 0RF Trelegy Ellipta 100-62.5-25 mcg blister with device 1 ea PO DAILY Qty: 60 0RF magnesium oxide 400 mg magnesium Tablet 400 mg PO DAILY Qty: 30 0RF Skyrizi 150 mg/mL pen injector 1 ea subcut Q90D Qty: 30 0RF tramadol 50 mg Tablet 50 mg PO Q6H PRN (Reason: Pain) lidocaine 5 % Adhesive Patch,Medicated 1 patch TOPICAL DAILY Rx Instructions: leave on most painful area for up to 12 hrs cholecalciferol (vitamin D3) [Vitamin D3] 25 mcg (1,000 unit) Tablet 25 mcg PO DAILY fluoxetine 20 mg capsule 40 mg PO DAILY insulin degludec [Tresiba FlexTouch U-200] 200 unit/mL (3 mL) insulin pen 55 unit subcut DAILY acetaminophen 325 mg tablet 2 tab PO Q6H PRN (Reason: mild pain) cefuroxime axetil 250 mg tablet 250 mg PO BID 7 Days Qty: 14 0RF (DME) Wrist Brace Misc See Rx Instructions .MEDSUPPLY Qty: 1 0RF Rx Instructions: comfort form wrist rt s Referrals: Ranjeet Rushing MD [Primary Care Provider] - Interventions: ED Discharge Assessment Last Done: 06/28/22 12:06 Discharge Date/Time: 06/28/22 12:06 Print Language: Spanish
--- OUTSIDE RECORDS SUMMARY | 2022-06-28 08:25 | XMS_ITS | Encounter Summary ---
:1950 Author Care Team Providers Name Role Phone Ranjeet Rushing MD Primary Care Provider [phone] Reason for Visit Right red eye R [...] unit/mL subcutaneous solutio n ? Humira Pen Ocbdkxhur-Gzmdvdz-Gjls Hid Sup Start 40 mg/ 0.8 mL [...] Code Code System Name Reaction Severity Onset 205432 RxNorm Ambien ? ? ? 419551 RxNorm Benadryl ? ? ? 247472 RxNorm LAC-HYDRIN ? ? ? 4342402 RxNorm Latex ? ? ? Problems Name Status Onset Date Source ? Depressive Disorder Active 09/22/2019 ? Edema Active 09/22/2019 ? Procedures Date Name Performed by ? 08/25/1998 Bone Fusion Information not avai lable ? Procedure on Neck Information not avai lable ? Section Information not avai lable Notes: X3 Vaccine List Vaccine Type COVID-19, mRNA, LNP-S, PF, 30 mcg/0.3 mL dose ([employer]) 09/03/2020 09/24/2020 influenza, high dose seasonal 05/05/2015 [...] [place]: [address], [place] [address], Ph. History of Present Illness ? Red [...]
--- OUTSIDE RECORDS SUMMARY | 2022-06-28 08:25 | XMS_ITS | Encounter Summary ---
:1950 Author Care Team Providers Name Role Phone Ranjeet Rushing MD Primary Care Provider [phone] Reason for Visit ankle injury; Left ankle pain pt. c/o L ankle pain, L knee pain, yared ed and fell Xtoday Assessment and Plan Assessment Note Yoel on foot with a surgical shoe. [place] te leg, ice, Tylenol dosed per bottle [...] ? Imaging XR, Knee, 3 View 05/31/2022 [facility] ? XR, Ankle, 3 or More View 05/31/2022 [facility] Medications Name Start Date ? ? albuterol [...] unit/mL subcutaneous solutio n ? Humira Pen Bbrgpgpje-Ketejgg-Dcid Hid Sup Start 40 mg/ 0.8 mL [...] Code Code System Name Reaction Severity Onset 196882 RxNorm Ambien ? ? ? 203638 RxNorm Benadryl ? ? ? 474111 RxNorm LAC-HYDRIN ? ? ? 0028430 RxNorm Latex ? ? ? Problems Name Status Onset Date Source ? Depressive Disorder Active 09/22/2019 ? Edema Active 09/22/2019 ? Procedures Date Name Performed by ? 08/25/1998 Bone Fusion Information not avai lable ? Procedure on Neck Information not avai lable ? Section Information not avai lable Notes: X3 05/31/2022 XR, Knee, 3 View [facility] [address] [place] [address] (Work Place) 05/31/2022 XR, Ankle, 3 or More View [facility] [address] [place] [address] (Work Place) Vaccine List Vaccine Type COVID-19, mRNA, LNP-S, PF, 30 mcg/0.3 mL dose ([employer]) 09/03/2020 09/24/2020 influenza, high dose seasonal [...] Ankle; Sprain of Left Knee Lo Shi, [employer]: [address] , [place] [address], Ph. History of Present Illness ? Knee [...]
--- OUTSIDE RECORDS SUMMARY | 2022-06-28 08:25 | XMS_ITS ---
:1950 Author Care Team Providers Name Role Phone ZENA DEL ROSARIO MD Primary Care Provider [phone] Allergies Code Code System Name Reaction Severity Status Onset 160064 RxNorm Ambien ? ? Active ? 198117 RxNorm Benadryl ? ? Active ? 056949 RxNorm LAC-HYDRIN ? ? Active ? [id number] RxNorm Latex ? ? Active ? Medications [...] solution Active ? Not available Humira Pen Zozgurcer-Dxvcupl-Pkfr Hid Sup Start 40 Active ? Not [...] 07/17/2020 XR, Ankle, 3 or More View [facility] [place] [address] (Work Place) 11/11/2020 XR, Hip + Pelvis, Unilateral [facility] [address] [place] [address] (Work Place) 11/11/2020 XR, Pelvis, 1 or 2 View [facility] [address] [place] [address] (Work Place) 01/20/2021 XR, Tibia + Fibula, 2 View [facility] [place] [address] (Work Place) 02/25/2021 XR, Ankle, 3 or More View [facility] [address] [place] [address] (Work Place) 08/12/2021 XR, Foot, 3 or More View [facility] [place] [address] (Work Place) 08/12/2021 XR, Ribs, Unilateral, W/ PA Chest [facility] [address] [place] [address] (Work Place) 05/31/2022 XR, Knee, 3 View [facility] [address] [place] [address] (Work Place) 05/31/2022 XR, Ankle, 3 or More View [facility] [address] [place] [address] (Work Place) Results Lab Results Date Name Specimen Result Interpretation Description Value Range Status Address ? 02/09/2022 Culture, ? Specimen clean catch ? Fin rao [facility] Urine Description (urine) Refe rence Laboratori es: [address], [place] ? ? ? Special none ? Final [facility] Requests Referenc e Laboratori es: [address], [place] ? ? ABNORMAL Culture ? ? Final [place] Reference [facility]: [address], [place] ? ? ? Report Status final ? Final [facility] 02/12/2022 Refere nce Laboratori es: [address], [place] ? ? ? Organism ? ? Final [place] Reference Labor[facility]: [address] [...] ? Intermedia Gentamicin gentamicin ? Nitza mclean [facility] te intermediate Refe rence Laboratori es: [address], [place] ? ? Susceptibl Levofloxacin levofloxacin ? Final [facility] e susceptible Refer ence Laboratori es: [address], [place] ? ? Susceptibl Meropenem meropenem ? Final [facility] e susceptible Refer ence Laboratori es: [...] ? Leukocytes Moderate ++ ? ? Byst [facility] Dipstick [place] ow: [address], [place] ? ? ? Nitrite positive ? ? Byst U cc [place] : [address], [place] ? ? ? Urobilinogen 0.2-Normal ? ? Byst [facility] [place] : [address], [place] ? ? ? Protein Trace ? ? Byst [facility] [place] : [address], [place] ? ? ? Ph 7.0 ? ? Byst [facility] [place] : [address], [place] ? ? ? Blood Trace(non-hemo ? ? By [facility] lyzed) [place] : [address], [place] ? ? ? Specific 1.010 ? ? Byst [facility] [place] w: [address], [place] ? ? ? Ketone Negative ? ? Byst [facility]c c [place] : [address], [place] ? ? ? Bilirubin Negative ? ? Byst [facility] [place] : [address], [place] ? ? ? Glucose Negative ? ? Byst U cc [place] : [address], [place] ? ? ? Appearance cloudy ? ? Byst [facility] [place] : [address], [place] ? ? ? Color yellow ? ? Byst [facility] [place] : [address], [place] 05/28/2021 Culture, ? Specimen E swab right ? Fi nal [facility] Superficial Description foot Reference Wound Laboratori es: [address], [place] ? ? ? Special none ? Final [facility] Requests Referenc e Laboratori es: [address], [place] ? ? ? gram Stain ? ? Final [place] Reference Laborator[facility]: [address], [place] ? ? ABNORMAL Culture ? ? Final [place] Reference [facility]: [address], [place] ? ? ? Report Status final ? Final [facility] 05/31/2021 Refere nce Laboratori es: [address], [place] ? ? ? Organism ? ? Final [place] Reference Labor[facility]: [address], [...] ? ? Susceptibl Rifampin ? ? Final [place] [facility] Reference Laboratori es: [address] [...] Ankle; Sprain of Left Knee Lo Shi BIOMEDICAL SERVICE ENGINEER: [address], [place] [address], Ph. 04/17/2022 Subconjunctival Hemorrhage of Right Eye Destinee Conte, PA: [address], [place] [address], Ph. 02/09/2022 Left Flank Pain; Acute Urinary Tract Inf ection Destinee Conte PA: [address], [place] [address], Ph. 09/05/2021 Cellulitis of Lower Limb Raouma Perez CARMEN Fry: [address], [place] [address], Ph. 08/12/2021 Falling Injury; Laceration of Great Toe; Sprain of Left Ankle; Closed Fracture of Fourth Metatarsal Bone; Fracture of Left Rib Brandon Dunn MD: [address], [place] [address], Ph. 05/28/2021 Cellulitis of Left Foot; Chronic Ulcer o f Skin; Cellulitis of Right Foot CARMEN Flor: [place] [address], Ph. 02/25/2021 Pain of Left Ankle Joint Destinee Conte PA: [address], [place] [address], Ph. 01/20/2021 Pain in Left Lower Limb Latosha Brown, BIOMEDICAL SERVICE ENGINEER: [address], [place] [address], Ph. Social History Tobacco Smoking Status Current Some Day Smoker Vaccine List Vaccine Type COVID-19, mRNA, LNP-S, PF, 30 mcg/0.3 mL dose (Biorasis) 09/03/2020 09/24/2020 influenza, high dose seasonal 05/05/2015 [...]
[2022-06-28 08:50] LABS: MANUAL DIFF FLAG NO
[2022-06-28 08:52] LABS: Basophils Percent Auto 0.4 % (0-2); Eosinophils Absolute Auto 0.2 X10*3/uL (0.0-0.4); Eosinophils Percent Auto 2.3 % (0-4); Hematocrit 47.6 % (37.0-47.0); Hemoglobin 15.5 g/dl (12.0-16.0); Imm Gran Abs Auto 0.03 X10*3/uL (0.00-0.03); Imm Gran Pct Auto 0.4 % (0.0-0.4); Lymphocytes Absolute Auto 1.2 X10*3/uL (1.2-4.9); Lymphocytes Percent Auto 14.9 % (20-40); Mean Corpuscular HGB Conc 32.6 g/dl (31.0-35.0); Mean Corpuscular Volume 95.2 fL (80.0-98.0); Mean Platelet Volume 11.5 fL (9.4-12.3); Monocytes Absolute Auto 0.7 X10*3/uL (0.1-1.2); Monocytes Percent Auto 8.4 % (2-11); Neutrophils Absolute Auto 5.9 x10*3/uL (2.0-8.3); Neutrophils Percent Auto 73.6 % (45-73); Platelet Count 217 X10*3/uL (160-400); Red Cell Distribution Width 14.6 % (11.0-16.0)
[2022-06-28 09:09] LABS: Alanine Aminotransferase 38 U/L (0-31); Albumin Level 4.1 g/dL (3.5-5.0); Alkaline Phosphatase 100 U/L (39-117); Anion Gap 17 (12-20); Aspartate Amino Transferase 35 U/L (5-31); Bilirubin Total 0.5 mg/dL (0.0-1.0); Blood Urea Nitrogen 29 mg/dL (9-16); Calcium 9.6 mg/dL (8.4-10.2); Carbon Dioxide 30 mmol/L (22-29); Chloride 98 mmol/L (96-108); Creatinine Clr Calc Pharmacy 41.8; Estimated Glomerular Filt Rate 48; Glucose Random 128 mg/dL (60-115); Potassium 3.9 mmol/L (3.3-5.1); Sodium 141 mmol/L (135-145)
[2022-06-28 09:17] LABS: B Type Natriuretic Peptide 19 pg/mL (<100)
[2022-06-28 10:58] VITALS: BP 176/83; PULSE 96; RESP 13; TEMP 36.5; O2SAT 93
== END 2022-06-28 12:06 | disposition home or self-care (01) ==
PROVIDERS: Physician Assistant Medical; Emergency Provider Emergency Medicine; PCP Internal Medicine
DX: I87.2 Venous insufficiency (chronic) (peripheral) (principal); R60.0 Localized edema; R06.02 Shortness of breath; Z87.891 Personal history of nicotine dependence; Z79.899 Other long term (current) drug therapy
CPT/HCPCS: 36415; 80053; 83735; 83880; 85025; 93971; 99283; 99284

== ENCOUNTER → 2022-08-05 14:51 | Outpatient (BNVA) | payer OTHER, SELFPAY | PROVIDERS: PCP Internal Medicine; Visit Provider Hospitalist | DX: J41.0 Simple chronic bronchitis (principal); J96.11 Chronic respiratory failure with hypoxia; M54.9 Dorsalgia, unspecified; F17.210 Nicotine dependence, cigarettes, uncomplicated; Z23 Encounter for immunization; Z99.81 Dependence on supplemental oxygen | CPT/HCPCS: 90471; 90677; 99212 ==

== ENCOUNTER 2022-10-21 17:07 | Emergency (ER) | payer OTHER, SELFPAY ==
[2022-10-21 17:11] VITALS: BP 100/56; BP 119/59; PULSE 90; PULSE 91; RESP 18; TEMP 36.8; O2SAT 92; O2SAT 95; BMI 26.5
--- NOTE | 2022-10-21 18:23 | ED.WOUNDLAC ---
HPI - Wound/Laceration General Chief Complaint: Wound/Laceration Stated Complaint: leg lac Time Seen by Provider: 10/21/22 17:32 Source: patient, family (Son at bedside) and EMS Mode of arrival: EMS Limitations: no limitations History of Present Illness HPI narrative: 72-year-old female presenting to the ER with complaints of a skin tear to her left lower extremity that occurred prior to arrival on a sharp area on her bed. She reports she has a hospital bed. She reports that she recently had an ultrasound of the left lower extremity to rule out a DVT and was negative for DVT due to her leg swelling. Reports that her leg swelling is chronic. She is unsure if she is up-to-date on tetanus. Son at bedside also unsure. Therefore he requested for her to receive her tetanus vaccine. She denies any other complaints or concerns at this time. Onset (ago): minute(s) (Prior to arrival) Extremity Location: left: lower leg Place: home Patient tetanus UTD: No Context: accidental Associated symptoms: pain Treatments prior to arrival: bandage Related Data Home Medications Medication Instructions Recorded Confirmed cholecalciferol (vitamin D3) 25 25 mcg PO DAILY 06/09/22 06/13/22 mcg (1,000 unit) tablet (Vitamin D3) insulin degludec 200 unit/mL (3 55 unit subcut DAILY 06/09/22 06/13/22 mL) subcutaneous pen (Tresiba FlexTouch U-200 insulin) lidocaine 5 % topical patch 1 patch topical DAILY 06/09/22 06/13/22 tramadol 50 mg tablet 50 mg PO Q6H PRN Pain 06/09/22 06/13/22 acetaminophen 325 mg tablet 2 tab PO Q6H PRN mild pain 06/13/22 06/13/22 fluoxetine 20 mg capsule 60 mg PO DAILY 08/05/22 mirtazapine 30 mg tablet 30 mg PO BEDTIME 08/05/22 Previous Rx's Medication Instructions Recorded albuterol sulfate 90 mcg/actuation 2 puff inhalation Q4-6H PRN 05/13/22 aerosol inhaler shortness of breath or wheezing 30 days #8.5 grams alendronate 70 mg tablet 70 mg PO DEGROOT@0900 30 days #5 tabs 05/13/22 allopurinol 300 mg tablet 300 mg PO DAILY #30 tabs 05/13/22 cyanocobalamin (vitamin B-12) 500 500 mcg PO DAILY 30 days #30 tabs 05/13/22 mcg tablet fluticasone fur. 100 mcg-umeclid 1 ea PO DAILY #60 ea 05/13/22 62.5 mcg-vilant 25 mcg inhalat.powder (Trelegy Ellipta) furosemide 40 mg tablet 40 mg PO BID 30 days #60 tabs 05/13/22 liraglutide 0.6 mg/0.1 mL (18 mg/3 1.8 mg (0.3 mL) subcut DAILY #9 mL 05/13/22 mL) subcutaneous pen injector (Victoza 3-Toby) magnesium oxide 400 mg PO DAILY #30 tabs 05/13/22 melatonin 3 mg tablet 3 mg PO BEDTIME PRN insomnia #30 05/13/22 tabs multivitamin 1 tab PO DAILY #30 tabs 05/13/22 pregabalin 150 mg capsule 150 mg PO BID 30 days #60 caps 05/13/22 risankizumab-rzaa 150 mg/mL 1 ea subcut Q90D #30 mL 05/13/22 subcutaneous pen injector (Skyrizi) simvastatin 10 mg tablet 10 mg PO BEDTIME 30 days #30 tabs 05/13/22 spironolactone 100 mg tablet 100 mg PO DAILY 30 days #30 tabs 05/13/22 cephalexin 500 mg capsule 500 mg PO Q6H 7 days #28 caps 10/21/22 Allergies Allergy/AdvReac Type Severity Reaction Status Date / Time diphenhydramine Allergy Intermediate Hives Verified 08/05/22 15:05 [From Benadryl] lactic acid [From LAC-HYDRIN] Allergy Intermediate RASH Verified 08/05/22 15:05 latex [Latex] Allergy Intermediate HIVES Verified 08/05/22 15:05 varenicline [From CHANTIX] Allergy Intermediate RASH Verified 08/05/22 15:05 zolpidem [From AMBIEN] AdvReac Severe SLEEP Verified 08/05/22 15:05 WALKING Review of Systems Review of Systems: Constitutional : No Fever, No Chills, Cardiovascular : No Chest Pain, No SOB Respiratory : No Dyspnea Gastrointestinal : No abdominal pain Musculoskeletal : No Joint Swelling Skin : positive skin laceration, No Foreign bodies, No rash, No surrounding erythema Neuro : No Weakness, No Numbness/tingling Psych : No SI/HI/thoughts of self injury Yes all other systems are reviewed and are negative [facility] Past Medical History Attestation statement: The following information was validated with the patient. Source: old records reviewed, obtained from family and nursing notes reviewed Medical History Acute UTI Anxiety Back pain Carpal tunnel syndrome Cellulitis Chronic back pain Chronic respiratory failure CKD (chronic kidney disease) COPD (chronic obstructive pulmonary disease) Depression Diabetes Diabetic neuropathy HTN (hypertension) Hyperlipidemia Osteoporosis Pneumonia Psoriasis Sepsis Spondylosis Tobacco dependence Venous stasis dermatitis Surgical History H/O section S/P cervical spinal fusion Family History Family History Mother Diabetes Social History Social History Household Members: None Household Members Other:: daughter helps out daily Housing: Apartment Do you presently have visiting nurse or other home services: Yes Alcohol intake: never Patient Tobacco Use Status: Former Tobacco user Quit Date: 2-3 weeks ago Tobacco use type: Cigarette Cigarette Packs Per Day: 0 Cigarettes Per Day: 0 e-Cigarette/Vaping Use: Never Used Second Hand Smoke Exposure: No Substance Use Type: Marijuana Advance Directives: No Advance Directives Information Provided: Yes Advance Directives Date on File: 06/07/20 service: No Current occupational status: unemployed Sexual orientation: Straight/Heterosexual Physical Exam Vital Signs: Vital Signs: Last Vital Signs Temp 98.3 F 10/21/22 17:11 Pulse 91 10/21/22 17:11 Resp 18 10/21/22 17:11 BP 100/56 L 10/21/22 17:11 Pulse Ox 92 10/21/22 17:11 O2 Del Method 10/21/22 17:11 BMI result Body Mass Index 26.5 vital signs have been reviewed as normal and appeared to be correct. Blood pressure normal Heart rate normal. Respiration rate normal. Temperature normal. Oxygen saturation normal. Appearance: Alert. Oriented X3. No acute distress. Head: Normal external exam. Normocephalic. Atraumatic. Eyes: PERRLA. EOMI. Conjunctiva and sclera normal. Eyelids normal. ENT: Pharynx normal. Uvula midline. Moist mucous membranes. Neck: Normal inspection. Neck supple. FROM. CVS: Normal heart rate and rhythm. Respiratory: No respiratory distress. Painless inspiration. Skin: Skin warm and dry. Normal skin color. Normal skin turgor. Superficial 3 cm flap skin tear to left lower extremity anterior aspect of the leg. No active bleeding or foreign bodies or bony tenderness noted. No additional rashes/lesions/lacerations noted. Extremities: Patient noted to have lower extremity edema bilaterally. Otherwise all other extremities nontender full range of motion. Neuro: Oriented X 3. No motor deficit. No sensory deficit. Reflexes normal. Normal steady gait. No focal neuro deficits noted. Vascular: + radial pulses/+ 2 distal pedal pulses/+2 dorsalis pedis b/l. Normal cap refill. No cyanosis noted to upper extremity nails and lower extremity toes nails. Course Course Course Narrative: Patient now status post skin tear repair with Steri-Strips and Dermabond placed after it was cleaned with pressure normal saline. Patient tolerated procedure well. No complications. Tetanus was updated at this time. No imaging indicated at this time. Will DC home with antibiotics along with instructions to follow-up with the wound clinic and to return if any new or worsening symptoms. Patient was son at bedside understand agree this plan. Medical Decision Making Independent Historian Clinical information obtained from an independent historian. History obtained from or confirmed by: Other (son at bedside) Prescription Management I considered prescription management with: Antibiotic (Keflex given) Discharge Plan Discharge Clinical Impression: Skin tear of lower leg without complication Patient Disposition: Home, Self-Care Instructions: Skin Tear (ED) Prescriptions: New cephalexin 500 mg capsule 500 mg PO Q6H 7 Days Qty: 28 0RF No Action multivitamin Tablet 1 tab PO DAILY Qty: 30 0RF furosemide 40 mg tablet 40 mg PO BID 30 Days Qty: 60 0RF alendronate 70 mg tablet 70 mg PO DEGROOT@0900 30 Days Qty: 5 0RF spironolactone 100 mg tablet 100 mg PO DAILY 30 Days Qty: 30 0RF simvastatin 10 mg tablet 10 mg PO BEDTIME 30 Days Qty: 30 0RF melatonin 3 mg tablet 3 mg PO BEDTIME PRN (Reason: insomnia) Qty: 30 0RF cyanocobalamin (vitamin B-12) 500 mcg tablet 500 mcg PO DAILY 30 Days Qty: 30 0RF allopurinol 300 mg tablet 300 mg PO DAILY Qty: 30 0RF albuterol sulfate 90 mcg/actuation HFA aerosol inhaler 2 puff inhalation Q4-6H PRN (Reason: shortness of breath or wheezing) 30 Days Qty: 8.5 0RF Rx Instructions: use with spacer device pregabalin 150 mg capsule 150 mg PO BID 30 Days Qty: 60 0RF Victoza 3-Toby 0.6 mg/0.1 mL (18 mg/3 mL) pen injector 1.8 mg subcut DAILY Qty: 9 0RF Trelegy Ellipta 100-62.5-25 mcg blister with device 1 ea PO DAILY Qty: 60 0RF magnesium oxide 400 mg magnesium Tablet 400 mg PO DAILY Qty: 30 0RF Skyrizi 150 mg/mL pen injector 1 ea subcut Q90D Qty: 30 0RF tramadol 50 mg Tablet 50 mg PO Q6H PRN (Reason: Pain) lidocaine 5 % Adhesive Patch,Medicated 1 patch TOPICAL DAILY Rx Instructions: leave on most painful area for up to 12 hrs cholecalciferol (vitamin D3) [Vitamin D3] 25 mcg (1,000 unit) Tablet 25 mcg PO DAILY insulin degludec [Tresiba FlexTouch U-200] 200 unit/mL (3 mL) insulin pen 55 unit subcut DAILY fluoxetine 20 mg capsule 60 mg PO DAILY acetaminophen 325 mg tablet 2 tab PO Q6H PRN (Reason: mild pain) mirtazapine 30 mg tablet 30 mg PO BEDTIME Referrals: [facility] [Provider Group] (Call Friday to make a follow-up appointment within 1 week for your skin tear) Ranjeet Rushing MD [Primary Care Provider] -
[2022-10-21] MEDS: Diphth,Pertus(ACell),Tet Adult 0.5 ML SYRINGE IM (18:33)
== END 2022-10-21 18:36 | disposition home or self-care (01) ==
PROVIDERS: Emergency Provider Student in an Organized Health Care Education/Training Program; PCP Internal Medicine
DX: S81.812A Laceration without foreign body, left lower leg, initial encounter (principal); W26.8XXA Contact with other sharp object(s), not elsewhere classified, initial encounter; E11.22 Type 2 diabetes mellitus with diabetic chronic kidney disease; I12.9 Hypertensive chronic kidney disease with stage 1 through stage 4 chronic kidney disease, or unspecified chronic kidney disease; N18.9 Chronic kidney disease, unspecified; E78.5 Hyperlipidemia, unspecified; Z87.891 Personal history of nicotine dependence; Y93.9 Activity, unspecified; Y92.032 Bedroom in apartment as the place of occurrence of the external cause; Y99.9 Unspecified external cause status; Z79.899 Other long term (current) drug therapy; Z79.02 Long term (current) use of antithrombotics/antiplatelets
CPT/HCPCS: 12002; 90471; 90715; 99282; 99284

== ENCOUNTER 2022-11-04 16:08 | Emergency (ER) | payer OTHER, SELFPAY ==
--- NOTE | ~2022-11-04 | CT_ITS ---
EXAMINATION: CT ABDOMEN AND PELVIS WITHOUT CONTRAST CLINICAL INFORMATION: Right-sided abdominal pain CT abdomen pelvis without contrast 02/09/2022 COMPARISON: CT abdomen and pelvis 02/09/2022 TECHNIQUE: Multidetector volumetric imaging was performed from the superior aspect of the liver through the pubic symphysis. Sagittal and coronal reformatted images were obtained on the technologist's workstation. This CT examination was performed using dose optimization techniques as appropriate, variously including the following: *Automated exposure control *Adjustment of mA and/or kV according to patient size (this includes techniques or standardized protocols for targeted exams where dose is matched to indication/reason for exam; i.e. extremities or head) *Use of iterative reconstruction technique DLP: 543 mGy-cm FINDINGS: LUNG BASES: There is bibasilar scarring with ill-defined subpleural 6 mural nodule left lower lobe axial image 10/01. There is mild cardiomegaly. There is mitral and tricuspid calcification. LIVER, GALLBLADDER, AND BILIARY TREE: The liver is normal in size, shape, and attenuation. No focal hepatic lesion or biliary ductal dilatation is present. The gallbladder is unremarkable with no evidence of radiopaque gallstones, gallbladder wall thickening, or obvious pericholecystic inflammatory changes. PANCREAS: Unremarkable. SPLEEN: Unremarkable. A small accessory splenule is seen lateral and inferior to the spleen. ADRENAL GLANDS: Unremarkable. KIDNEYS AND URETERS: There are bilateral renal stones in upper and lower poles of left kidney and lower pole right kidney. The largest radiopaque calculi lower pole right kidney measures 1 cm. No caliectasis or hydronephrosis seen. Bilateral radiopaque calculi were seen on previous CT abdomen exam 02/09/2022 and was slightly smaller. An exophytic 7 mm cyst is seen in midpole left kidney. BLADDER: The bladder is mildly distended. GASTROINTESTINAL TRACT: There is scattered stool and gas seen throughout the colon without distention. There is no mural thickening or pericolic fat stranding. There is a large phlebolith medial to the ascending colon. The small bowel loops are normal caliber. Appendix is not visualized. A 3.7 x 3.9 x 4.8 cm cyst is seen in right adnexa, likely right ovarian origin is a 3.5 with 2.3 x 2.9 cm cyst posterior to the left of the uterus. It is likely left ovarian origin. There is no free fluid. There are vascular calcifications seen throughout the anteverted uterus. ABDOMINAL WALL: There is a small lacunar hernia containing fat. LYMPH NODES: Normal. VASCULAR: There is atherosclerotic calcification of abdominal aorta without aneurysmal dilatation. PELVIC VISCERA: Unremarkable. OSSEOUS STRUCTURES: Degenerative disc changes with vacuum disc phenomena L5-S1, L2-L3 L1-L2 and T12-L1 disc levels. There are superior endplate deformities of L3 and L4 vertebra. Bilateral facet joint arthropathy is seen at L2-L3 through L5-S1 disc levels. No aggressive lytic or sclerotic process seen. CT/CT abdomen pelvis wo IV con IMPRESSION: 1. Bilateral nonobstructive radiopaque renal calculi without caliectasis or hydronephrosis. 2. Bilateral adnexal cysts, likely ovarian origin. These were visualized on the previous CT exam. Correlation with follow-up ultrasound is recommended as per ACR guidelines. 3. Mild constipation. 4. Small umbilical hernia containing fat. 5. There is bibasilar scarring with ill-defined subpleural 6 mural nodule left lower lobe. Fleischner guidelines were followed.
[2022-11-04 16:32] VITALS: BP 134/48; PULSE 90; RESP 18; TEMP 37.2; O2SAT 93; BMI 27.3
--- NOTE | 2022-11-04 16:34 | ED_ITS ---
HPI - Abdominal Pain General Chief Complaint: Abdominal Pain Stated Complaint: lower right abd pain Time Seen by Provider: 11/04/22 20:42 Related Data Home Medications Medication Instructions Recorded Confirmed cholecalciferol (vitamin D3) 25 25 mcg PO DAILY 06/09/22 06/13/22 mcg (1,000 unit) tablet (Vitamin D3) insulin degludec 200 unit/mL (3 55 unit subcut DAILY 06/09/22 06/13/22 mL) subcutaneous pen (Tresiba FlexTouch U-200 insulin) lidocaine 5 % topical patch 1 patch topical DAILY 06/09/22 06/13/22 tramadol 50 mg tablet 50 mg PO Q6H PRN Pain 06/09/22 06/13/22 acetaminophen 325 mg tablet 2 tab PO Q6H PRN mild pain 06/13/22 06/13/22 fluoxetine 20 mg capsule 60 mg PO DAILY 08/05/22 mirtazapine 30 mg tablet 30 mg PO BEDTIME 08/05/22 Previous Rx's Medication Instructions Recorded albuterol sulfate 90 mcg/actuation 2 puff inhalation Q4-6H PRN 05/13/22 aerosol inhaler shortness of breath or wheezing 30 days #8.5 grams alendronate 70 mg tablet 70 mg PO DEGROOT@0900 30 days #5 tabs 05/13/22 allopurinol 300 mg tablet 300 mg PO DAILY #30 tabs 05/13/22 cyanocobalamin (vitamin B-12) 500 500 mcg PO DAILY 30 days #30 tabs 05/13/22 mcg tablet fluticasone fur. 100 mcg-umeclid 1 ea PO DAILY #60 ea 05/13/22 62.5 mcg-vilant 25 mcg inhalat.powder (Trelegy Ellipta) furosemide 40 mg tablet 40 mg PO BID 30 days #60 tabs 05/13/22 liraglutide 0.6 mg/0.1 mL (18 mg/3 1.8 mg (0.3 mL) subcut DAILY #9 mL 05/13/22 mL) subcutaneous pen injector (Victoza 3-Toby) magnesium oxide 400 mg PO DAILY #30 tabs 05/13/22 melatonin 3 mg tablet 3 mg PO BEDTIME PRN insomnia #30 05/13/22 tabs multivitamin 1 tab PO DAILY #30 tabs 05/13/22 pregabalin 150 mg capsule 150 mg PO BID 30 days #60 caps 05/13/22 risankizumab-rzaa 150 mg/mL 1 ea subcut Q90D #30 mL 05/13/22 subcutaneous pen injector (Celina) simvastatin 10 mg tablet 10 mg PO BEDTIME 30 days #30 tabs 05/13/22 spironolactone 100 mg tablet 100 mg PO DAILY 30 days #30 tabs 05/13/22 cephalexin 500 mg capsule 500 mg PO Q6H 7 days #28 caps 10/21/22 Allergies Allergy/AdvReac Type Severity Reaction Status Date / Time diphenhydramine Allergy Intermediate Hives Verified 08/05/22 15:05 [From Benadryl] lactic acid [From LAC-HYDRIN] Allergy Intermediate RASH Verified 08/05/22 15:05 latex [Latex] Allergy Intermediate HIVES Verified 08/05/22 15:05 varenicline [From CHANTIX] Allergy Intermediate RASH Verified 08/05/22 15:05 zolpidem [From AMBIEN] AdvReac Severe SLEEP Verified 08/05/22 15:05 WALKING PMF Past Medical History Medical History Acute UTI Anxiety Back pain Carpal tunnel syndrome Cellulitis Chronic back pain Chronic respiratory failure CKD (chronic kidney disease) COPD (chronic obstructive pulmonary disease) Depression Diabetes Diabetic neuropathy HTN (hypertension) Hyperlipidemia Osteoporosis Pneumonia Psoriasis Sepsis Spondylosis Tobacco dependence Venous stasis dermatitis Surgical History H/O section S/P cervical spinal fusion Family History Family History Mother Diabetes Social History Social History Household Members: None Household Members Other:: daughter helps out daily Housing: Apartment Do you presently have visiting nurse or other home services: Yes Alcohol intake: never Patient Tobacco Use Status: Former Tobacco user Quit Date: 2-3 weeks ago Tobacco use type: Cigarette Cigarette Packs Per Day: 0 Cigarettes Per Day: 0 Smoked in Last 30 Days: No e-Cigarette/Vaping Use: Never Used Second Hand Smoke Exposure: No Use of substances other than those prescribed or required for medical reasons: No Substance Use Type: Marijuana Advance Directives: No Advance Directives Information Provided: No Advance Directives Date on File: 06/07/20 service: No Current occupational status: unemployed Sexual orientation: Straight/Heterosexual Physical Exam ED Vital Signs: BMI result Body Mass Index 27.3 Course Course Course Narrative: [id number] - 72yoF with a PMHx of COPD prescribed an oxygen wilian does not wear it all the time who is presenting with family member at bedside with complaints of 1 week of right-sided abdominal pain worse today. Reports she had a normal bowel movement yesterday she believes. Denies any fevers, nausea or vomiting, chest pain or shortness of breath, dysuria or hematuria, diarrhea constipation. Plan: Will obtain labs, UA, EKG, COVID/RSV/flu swab, CT scan abdomen pelvis. Patient will be sent back to the waiting room to be evaluated in the ED. Medical Decision Making Lab Data 11/04/22 17:21 11/04/22 17:21 Labs: Lab Results 11/04/22 11/04/22 11/04/22 Range/Units 17:21 17:21 17:21 WBC 6.9 (4.8-10.8) X10*3/uL RBC 4.70 (4.20-5.50) X10*6/uL Hgb 12.5 (12.0-16.0) g/dl Hct 40.3 (37.0-47.0) % MCV 85.7 (80.0-98.0) fL MCH 26.6 L (27.0-33.0) pg MCHC 31.0 (31.0-35.0) g/dl RDW 17.4 H (11.0-16.0) % Plt Count 284 D (160-400) X10*3/uL MPV 11.0 (9.4-12.3) fL Immature Gran % (Auto) 0.4 (0.0-0.4) % Neut % (Auto) 63.7 (45-73) % Lymph % (Auto) 18.6 L (20-40) % [place] % (Auto) 10.4 (2-11) % Eos % (Auto) 6.3 H (0-4) % Baso % (Auto) 0.6 (0-2) % Lymph # (Auto) 1.3 (1.2-4.9) X10*3/uL [place] # (Auto) 0.7 (0.1-1.2) X10*3/uL Eos # (Auto) 0.4 (0.0-0.4) X10*3/uL Baso # (Auto) 0.0 (0.0-0.2) X10*3/uL Abs Immat Gran (auto) 0.03 (0.00-0.03) X10*3/uL Absolute Neuts (auto) 4.4 (2.0-8.3) x10*3/uL Absolute Nucleated RBC 0.000 (0.0-0.012) X10*3/uL Nucleated RBC % (auto) 0.0 (0.0-0.2) /100WBC PT 10.2 (10.0-13.1) SEC INR 0.9 (0.9-1.1) Sodium 142 (135-145) mmol/L Potassium 4.9 D (3.3-5.1) mmol/L Chloride 106 (96-108) mmol/L Carbon Dioxide 29 (22-29) mmol/L Anion Gap 12 (12-20) BUN 30 H (9-16) mg/dL Creatinine 1.35 (0.5-1.4) mg/dL Estim Creat Clear Calc 34.3 Estimated GFR 38 Random Glucose 136 H (60-115) mg/dL Calcium 9.4 (8.4-10.2) mg/dL Magnesium 2.3 (1.6-2.6) mg/dL Total Bilirubin 0.3 (0.0-1.0) mg/dL AST 30 (5-31) U/L ALT 35 H (0-31) U/L Alkaline Phosphatase 114 (39-117) U/L Total Protein 6.1 L (6.5-8.0) g/dL Albumin 3.5 (3.5-5.0) g/dL Lipase 55 (8-78) U/L Urine Color Urine Appearance Urine pH (5.0-9.0) Ur Specific [place] (1.005-1.025) Urine Protein (Neg-Trace) mg/dL Urine Glucose (UA) (Negative) mg/dL Urine Ketones (Negative) mg/dL Urine Blood (Negative) Urine Nitrite (Negative) Ur Leukocyte Esterase (Negative) Urine RBC (0-2) /HPF Urine WBC (0-5) /HPF Ur Squamous Epith Cells (0-2) /HPF Urine Bacteria (None Seen) Hyaline Casts (0-2) /LPF Urine Yeast Influenza Type A (PCR) (Negative) Influenza Type B (PCR) (Negative) RSV RNA Qual (PCR) (Negative) SARS-CoV-2 RNA (RT-PCR) (Negative) 11/04/22 11/04/22 Range/Units 17:21 20:47 WBC (4.8-10.8) X10*3/uL RBC (4.20-5.50) X10*6/uL Hgb (12.0-16.0) g/dl Hct (37.0-47.0) % MCV (80.0-98.0) fL MCH (27.0-33.0) pg MCHC (31.0-35.0) g/dl RDW (11.0-16.0) % Plt Count (160-400) X10*3/uL MPV (9.4-12.3) fL Immature Gran % (Auto) (0.0-0.4) % Neut % (Auto) (45-73) % Lymph % (Auto) (20-40) % [place] % (Auto) (2-11) % Eos % (Auto) (0-4) % Baso % (Auto) (0-2) % Lymph # (Auto) (1.2-4.9) X10*3/uL [place] # (Auto) (0.1-1.2) X10*3/uL Eos # (Auto) (0.0-0.4) X10*3/uL Baso # (Auto) (0.0-0.2) X10*3/uL Abs Immat Gran (auto) (0.00-0.03) X10*3/uL Absolute Neuts (auto) (2.0-8.3) x10*3/uL Absolute Nucleated RBC (0.0-0.012) X10*3/uL Nucleated RBC % (auto) (0.0-0.2) /100WBC PT (10.0-13.1) SEC INR (0.9-1.1) Sodium (135-145) mmol/L Potassium (3.3-5.1) mmol/L Chloride (96-108) mmol/L Carbon Dioxide (22-29) mmol/L Anion Gap (12-20) BUN (9-16) mg/dL Creatinine (0.5-1.4) mg/dL Estim Creat Clear Calc Estimated GFR Random Glucose (60-115) mg/dL Calcium (8.4-10.2) mg/dL Magnesium (1.6-2.6) mg/dL Total Bilirubin (0.0-1.0) mg/dL AST (5-31) U/L ALT (0-31) U/L Alkaline Phosphatase (39-117) U/L Total Protein (6.5-8.0) g/dL Albumin (3.5-5.0) g/dL Lipase (8-78) U/L Urine Color Yellow Urine Appearance Clear Urine pH 7.0 (5.0-9.0) Ur Specific [place] 1.015 (1.005-1.025) Urine Protein 300 (3+) H (Neg-Trace) mg/dL Urine Glucose (UA) Negative (Negative) mg/dL Urine Ketones Negative (Negative) mg/dL Urine Blood Negative (Negative) Urine Nitrite Positive H (Negative) Ur Leukocyte Esterase Small (1+) H (Negative) Urine RBC 0-2 (0-2) /HPF Urine WBC 0-5 (0-5) /HPF Ur Squamous Epith Cells 0-2 (0-2) /HPF Urine Bacteria 1+ (None Seen) Hyaline Casts 0-2 (0-2) /LPF Urine Yeast Present Influenza Type A (PCR) NEGATIVE (Negative) Influenza Type B (PCR) NEGATIVE (Negative) RSV RNA Qual (PCR) NEGATIVE (Negative) SARS-CoV-2 RNA (RT-PCR) NEGATIVE (Negative) Discharge Plan Discharge Clinical Impression: Abdominal pain Patient Disposition: Home, Self-Care Instructions: Abdominal Pain (ED) Additional Instructions: Ovarian cyst was found on your CT scan. Please closely follow-up with your doctor on an outpatient basis. Prescriptions: No Action multivitamin Tablet 1 tab PO DAILY Qty: 30 0RF furosemide 40 mg tablet 40 mg PO BID 30 Days Qty: 60 0RF alendronate 70 mg tablet 70 mg PO DEGROOT@0900 30 Days Qty: 5 0RF spironolactone 100 mg tablet 100 mg PO DAILY 30 Days Qty: 30 0RF simvastatin 10 mg tablet 10 mg PO BEDTIME 30 Days Qty: 30 0RF melatonin 3 mg tablet 3 mg PO BEDTIME PRN (Reason: insomnia) Qty: 30 0RF cyanocobalamin (vitamin B-12) 500 mcg tablet 500 mcg PO DAILY 30 Days Qty: 30 0RF allopurinol 300 mg tablet 300 mg PO DAILY Qty: 30 0RF albuterol sulfate 90 mcg/actuation HFA aerosol inhaler 2 puff inhalation Q4-6H PRN (Reason: shortness of breath or wheezing) 30 Days Qty: 8.5 0RF Rx Instructions: use with spacer device pregabalin 150 mg capsule 150 mg PO BID 30 Days Qty: 60 0RF Victoza 3-Toby 0.6 mg/0.1 mL (18 mg/3 mL) pen injector 1.8 mg subcut DAILY Qty: 9 0RF Trelegy Ellipta 100-62.5-25 mcg blister with device 1 ea PO DAILY Qty: 60 0RF magnesium oxide 400 mg magnesium Tablet 400 mg PO DAILY Qty: 30 0RF Skyrizi 150 mg/mL pen injector 1 ea subcut Q90D Qty: 30 0RF tramadol 50 mg Tablet 50 mg PO Q6H PRN (Reason: Pain) lidocaine 5 % Adhesive Patch,Medicated 1 patch TOPICAL DAILY Rx Instructions: leave on most painful area for up to 12 hrs cholecalciferol (vitamin D3) [Vitamin D3] 25 mcg (1,000 unit) Tablet 25 mcg PO DAILY insulin degludec [Tresiba FlexTouch U-200] 200 unit/mL (3 mL) insulin pen 55 unit subcut DAILY fluoxetine 20 mg capsule 60 mg PO DAILY acetaminophen 325 mg tablet 2 tab PO Q6H PRN (Reason: mild pain) cephalexin 500 mg capsule 500 mg PO Q6H 7 Days Qty: 28 0RF mirtazapine 30 mg tablet 30 mg PO BEDTIME Referrals: Ranjeet Rushing MD [Primary Care Provider] - (Follow-up in a few days) Interventions: ED Discharge Assessment Last Done: 11/04/22 22:03 Discharge Date/Time: 11/04/22 22:03
--- NOTE | 2022-11-04 16:36 | ECG_ITS ---
Test Reason : abdominal pain Blood Pressure : / mmHG Vent. Rate : 085 BPM Atrial Rate : 085 BPM P-R Int : 160 ms QRS Dur : 078 ms QT Int : 360 ms P-R-T Axes : 048 -28 052 degrees QTc Int : 428 ms Normal sinus rhythm Inferior infarct , age undetermined Anteroseptal infarct (cited on or before 05-SEP-2021) Abnormal ECG When compared with ECG of 13-JUN-2022 08:07, Inferior infarct is now Present Referred By: Negin Weinberg Electronically Signed By:Ciro Horner
[2022-11-04 17:26] LABS: MANUAL DIFF FLAG NO
[2022-11-04 17:32] LABS: Basophils Percent Auto 0.6 % (0-2); Eosinophils Absolute Auto 0.4 X10*3/uL (0.0-0.4); Eosinophils Percent Auto 6.3 % (0-4); Hematocrit 40.3 % (37.0-47.0); Hemoglobin 12.5 g/dl (12.0-16.0); Imm Gran Abs Auto 0.03 X10*3/uL (0.00-0.03); Imm Gran Pct Auto 0.4 % (0.0-0.4); Lymphocytes Absolute Auto 1.3 X10*3/uL (1.2-4.9); Lymphocytes Percent Auto 18.6 % (20-40); Mean Corpuscular Hemoglobin 26.6 pg (27.0-33.0); Mean Corpuscular Volume 85.7 fL (80.0-98.0); Monocytes Absolute Auto 0.7 X10*3/uL (0.1-1.2); Monocytes Percent Auto 10.4 % (2-11); Neutrophils Absolute Auto 4.4 x10*3/uL (2.0-8.3); Neutrophils Percent Auto 63.7 % (45-73); Platelet Count 284 X10*3/uL (160-400); Red Cell Distribution Width 17.4 % (11.0-16.0); White Blood Count 6.9 X10*3/uL (4.8-10.8)
[2022-11-04 17:42] LABS: INTERNATIONAL NORM RATIO 0.9 (0.9-1.1); Prothrombin Time 10.2 SEC (10.0-13.1)
[2022-11-04 17:45] LABS: Alanine Aminotransferase 35 U/L (0-31); Albumin Level 3.5 g/dL (3.5-5.0); Alkaline Phosphatase 114 U/L (39-117); Anion Gap 12 (12-20); Aspartate Amino Transferase 30 U/L (5-31); Bilirubin Total 0.3 mg/dL (0.0-1.0); Blood Urea Nitrogen 30 mg/dL (9-16); Calcium 9.4 mg/dL (8.4-10.2); Carbon Dioxide 29 mmol/L (22-29); Chloride 106 mmol/L (96-108); Creatinine Clr Calc Pharmacy 34.3; Estimated Glomerular Filt Rate 38; Glucose Random 136 mg/dL (60-115); Lipase 55 U/L (8-78); Magnesium 2.3 mg/dL (1.6-2.6); Potassium 4.9 mmol/L (3.3-5.1); Sodium 142 mmol/L (135-145); Total Protein 6.1 g/dL (6.5-8.0)
[2022-11-04 18:10] LABS: Influenza A PCR NEGATIVE (Negative); Influenza B PCR NEGATIVE (Negative); Resp Syncy Virus RNA Qual PCR NEGATIVE (Negative); SARS COV2 PCR INHOUSE NEGATIVE (Negative)
--- NOTE | 2022-11-04 20:34 | MHC.EDTECH ---
this check writer salesperson documented EKG at 2033. EKG done at 1718
[2022-11-04 20:36] VITALS: BP 134/68; PULSE 88; RESP 16; TEMP 37.1; O2SAT 94
[2022-11-04 20:56] LABS: Appearance Urine Clear; Color Urine Yellow; Glucose Urine UA Negative (Negative); Leukocyte Esterase Urine Small (1+) (Negative); Nitrite Urine Positive (Negative); Specific Gravity - Urine 1.015 (1.005-1.025); UMIC TRIGGER UACC YES; Urine Blood Negative (Negative); Urine Ketones Negative (Negative); Urine Protein 300 (3+) mg/dL (Neg-Trace)
--- NOTE | 2022-11-04 20:57 | ED.ABDPAIN ---
HPI - Abdominal Pain General Chief Complaint: Abdominal Pain Stated Complaint: lower right abd pain Time Seen by Provider: 11/04/22 20:42 History of Present Illness HPI narrative: Patient is a 72-year-old female presents today with having abdominal pain that is been ongoing for the last few weeks if not months. It is over the right lower quadrant. Patient has been told she has some kind of ovarian cyst in the past. No fever no chills. Tolerates p.o.. There is no change in bowel movements. No pain on urination. No coughing or congestion or upper respiratory symptoms. No diaphoresis. No rash noted. History of COPD, previous history of smoking Related Data Home Medications Medication Instructions Recorded Confirmed cholecalciferol (vitamin D3) 25 25 mcg PO DAILY 06/09/22 06/13/22 mcg (1,000 unit) tablet (Vitamin D3) insulin degludec 200 unit/mL (3 55 unit subcut DAILY 06/09/22 06/13/22 mL) subcutaneous pen (Tresiba FlexTouch U-200 insulin) lidocaine 5 % topical patch 1 patch topical DAILY 06/09/22 06/13/22 tramadol 50 mg tablet 50 mg PO Q6H PRN Pain 06/09/22 06/13/22 acetaminophen 325 mg tablet 2 tab PO Q6H PRN mild pain 06/13/22 06/13/22 fluoxetine 20 mg capsule 60 mg PO DAILY 08/05/22 mirtazapine 30 mg tablet 30 mg PO BEDTIME 08/05/22 Previous Rx's Medication Instructions Recorded albuterol sulfate 90 mcg/actuation 2 puff inhalation Q4-6H PRN 05/13/22 aerosol inhaler shortness of breath or wheezing 30 days #8.5 grams alendronate 70 mg tablet 70 mg PO DEGROOT@0900 30 days #5 tabs 05/13/22 allopurinol 300 mg tablet 300 mg PO DAILY #30 tabs 05/13/22 cyanocobalamin (vitamin B-12) 500 500 mcg PO DAILY 30 days #30 tabs 05/13/22 mcg tablet fluticasone fur. 100 mcg-umeclid 1 ea PO DAILY #60 ea 05/13/22 62.5 mcg-vilant 25 mcg inhalat.powder (Trelegy Ellipta) furosemide 40 mg tablet 40 mg PO BID 30 days #60 tabs 05/13/22 liraglutide 0.6 mg/0.1 mL (18 mg/3 1.8 mg (0.3 mL) subcut DAILY #9 mL 05/13/22 mL) subcutaneous pen injector (Victoza 3-Toby) magnesium oxide 400 mg PO DAILY #30 tabs 05/13/22 melatonin 3 mg tablet 3 mg PO BEDTIME PRN insomnia #30 05/13/22 tabs multivitamin 1 tab PO DAILY #30 tabs 05/13/22 pregabalin 150 mg capsule 150 mg PO BID 30 days #60 caps 05/13/22 risankizumab-rzaa 150 mg/mL 1 ea subcut Q90D #30 mL 05/13/22 subcutaneous pen injector (Skyrizi) simvastatin 10 mg tablet 10 mg PO BEDTIME 30 days #30 tabs 05/13/22 spironolactone 100 mg tablet 100 mg PO DAILY 30 days #30 tabs 05/13/22 cephalexin 500 mg capsule 500 mg PO Q6H 7 days #28 caps 10/21/22 Allergies Allergy/AdvReac Type Severity Reaction Status Date / Time diphenhydramine Allergy Intermediate Hives Verified 08/05/22 15:05 [From Benadryl] lactic acid [From LAC-HYDRIN] Allergy Intermediate RASH Verified 08/05/22 15:05 latex [Latex] Allergy Intermediate HIVES Verified 08/05/22 15:05 varenicline [From CHANTIX] Allergy Intermediate RASH Verified 08/05/22 15:05 zolpidem [From AMBIEN] AdvReac Severe SLEEP Verified 08/05/22 15:05 WALKING Review of Systems Review of Systems Positive abdominal pain in the right lower quadrant Yes all other systems are reviewed and are negative [facility] Past Medical History Attestation statement: The following information was validated with the patient. Medical History Acute UTI Anxiety Back pain Carpal tunnel syndrome Cellulitis Chronic back pain Chronic respiratory failure CKD (chronic kidney disease) COPD (chronic obstructive pulmonary disease) Depression Diabetes Diabetic neuropathy HTN (hypertension) Hyperlipidemia Osteoporosis Pneumonia Psoriasis Sepsis Spondylosis Tobacco dependence Venous stasis dermatitis Surgical History H/O section S/P cervical spinal fusion Family History Family History Mother Diabetes Social History Social History Household Members: None Household Members Other:: daughter helps out daily Housing: Apartment Do you presently have visiting nurse or other home services: Yes Alcohol intake: never Patient Tobacco Use Status: Former Tobacco user Quit Date: 2-3 weeks ago Tobacco use type: Cigarette Cigarette Packs Per Day: 0 Cigarettes Per Day: 0 Smoked in Last 30 Days: No e-Cigarette/Vaping Use: Never Used Second Hand Smoke Exposure: No Use of substances other than those prescribed or required for medical reasons: No Substance Use Type: Marijuana Advance Directives: No Advance Directives Information Provided: No Advance Directives Date on File: 06/07/20 service: No Current occupational status: unemployed Sexual orientation: Straight/Heterosexual Physical Exam ED Vital Signs: Vital Signs - 24 hr 11/04/22 16:32 11/04/22 20:36 Temperature 98.9 F 98.7 F Pulse Rate 90 88 Respiratory Rate 18 16 Blood Pressure 134/48 L 134/68 Pulse Oximetry 93 94 Oxygen Delivery Method Room Air Room Air BMI result Body Mass Index 27.3 Appearance: Alert. Oriented X3. No acute distress. Eyes: Pupils equal, round and reactive to light. ENT: Pharynx normal. Neck: Normal inspection. Neck supple. No lymph nodes noted. No crepitus CVS: Normal heart rate and rhythm. Pulses normal. Normal S1 and S2 Respiratory: No respiratory distress. Breath sounds normal. No Wheezing. No rales Abdomen: Soft and nontender. No rigidity. No distention. good BS x4 Skin: Skin warm and dry. Normal skin color. Normal skin turgor. Extremities: No lower extremity edema. Neurovascular intact to all extremities. No Lacerations. No Rash Neuro: Oriented X 3. No motor deficit. No sensory deficit. Moving all extermities. No slurred speech Medical Decision Making Medical Decision Making MDM Narrative: Positive abdominal pain that is very similar to previous bouts. Patient's skin intact there is no evidence of shingles. CT scan of the abdomen pelvis showed no evidence of obstruction, abscess, perforation. No evidence of appendicitis. No evidence of diverticulitis. No evidence for kidney stone that is in the ureter. Patient from home. COVID flu RSV were all negative. Patient's LFTs were normal. No evidence for biliary disease. Lipase is normal there is no evidence for pancreatitis. Patient's urine showed no signs of infection more contamination. Pain is chronic. Discussed with patient the need to follow up with her primary physician for the ovarian issues. States she is in stable condition. Will discharge home. Differential Diagnosis Differential Diagnoses: The differential diagnosis associated with the presentation includes Diverticulitis, kidney stone, COPD, obstruction, abscess, perforation Lab Data MDM Lab Attestation statement: I reviewed the patient's lab results. 11/04/22 17:21 11/04/22 17:21 Labs: Lab Results 11/04/22 11/04/22 11/04/22 Range/Units 17:21 17:21 17:21 WBC 6.9 (4.8-10.8) X10*3/uL RBC 4.70 (4.20-5.50) X10*6/uL Hgb 12.5 (12.0-16.0) g/dl Hct 40.3 (37.0-47.0) % MCV 85.7 (80.0-98.0) fL MCH 26.6 L (27.0-33.0) pg MCHC 31.0 (31.0-35.0) g/dl RDW 17.4 H (11.0-16.0) % Plt Count 284 D (160-400) X10*3/uL MPV 11.0 (9.4-12.3) fL Immature Gran % (Auto) 0.4 (0.0-0.4) % Neut % (Auto) 63.7 (45-73) % Lymph % (Auto) 18.6 L (20-40) % [place] % (Auto) 10.4 (2-11) % Eos % (Auto) 6.3 H (0-4) % Baso % (Auto) 0.6 (0-2) % Lymph # (Auto) 1.3 (1.2-4.9) X10*3/uL [place] # (Auto) 0.7 (0.1-1.2) X10*3/uL Eos # (Auto) 0.4 (0.0-0.4) X10*3/uL Baso # (Auto) 0.0 (0.0-0.2) X10*3/uL Abs Immat Gran (auto) 0.03 (0.00-0.03) X10*3/uL Absolute Neuts (auto) 4.4 (2.0-8.3) x10*3/uL Absolute Nucleated RBC 0.000 (0.0-0.012) X10*3/uL Nucleated RBC % (auto) 0.0 (0.0-0.2) /100WBC PT 10.2 (10.0-13.1) SEC INR 0.9 (0.9-1.1) Sodium 142 (135-145) mmol/L Potassium 4.9 D (3.3-5.1) mmol/L Chloride 106 (96-108) mmol/L Carbon Dioxide 29 (22-29) mmol/L Anion Gap 12 (12-20) BUN 30 H (9-16) mg/dL Creatinine 1.35 (0.5-1.4) mg/dL Estim Creat Clear Calc 34.3 Estimated GFR 38 Random Glucose 136 H (60-115) mg/dL Calcium 9.4 (8.4-10.2) mg/dL Magnesium 2.3 (1.6-2.6) mg/dL Total Bilirubin 0.3 (0.0-1.0) mg/dL AST 30 (5-31) U/L ALT 35 H (0-31) U/L Alkaline Phosphatase 114 (39-117) U/L Total Protein 6.1 L (6.5-8.0) g/dL Albumin 3.5 (3.5-5.0) g/dL Lipase 55 (8-78) U/L Urine Color Urine Appearance Urine pH (5.0-9.0) Ur Specific [place] (1.005-1.025) Urine Protein (Neg-Trace) mg/dL Urine Glucose (UA) (Negative) mg/dL Urine Ketones (Negative) mg/dL Urine Blood (Negative) Urine Nitrite (Negative) Ur Leukocyte Esterase (Negative) Urine RBC (0-2) /HPF Urine WBC (0-5) /HPF Ur Squamous Epith Cells (0-2) /HPF Urine Bacteria (None Seen) Hyaline Casts (0-2) /LPF Urine Yeast Influenza Type A (PCR) (Negative) Influenza Type B (PCR) (Negative) RSV RNA Qual (PCR) (Negative) SARS-CoV-2 RNA (RT-PCR) (Negative) 11/04/22 11/04/22 Range/Units 17:21 20:47 WBC (4.8-10.8) X10*3/uL RBC (4.20-5.50) X10*6/uL Hgb (12.0-16.0) g/dl Hct (37.0-47.0) % MCV (80.0-98.0) fL MCH (27.0-33.0) pg MCHC (31.0-35.0) g/dl RDW (11.0-16.0) % Plt Count (160-400) X10*3/uL MPV (9.4-12.3) fL Immature Gran % (Auto) (0.0-0.4) % Neut % (Auto) (45-73) % Lymph % (Auto) (20-40) % [place] % (Auto) (2-11) % Eos % (Auto) (0-4) % Baso % (Auto) (0-2) % Lymph # (Auto) (1.2-4.9) X10*3/uL [place] # (Auto) (0.1-1.2) X10*3/uL Eos # (Auto) (0.0-0.4) X10*3/uL Baso # (Auto) (0.0-0.2) X10*3/uL Abs Immat Gran (auto) (0.00-0.03) X10*3/uL Absolute Neuts (auto) (2.0-8.3) x10*3/uL Absolute Nucleated RBC (0.0-0.012) X10*3/uL Nucleated RBC % (auto) (0.0-0.2) /100WBC PT (10.0-13.1) SEC INR (0.9-1.1) Sodium (135-145) mmol/L Potassium (3.3-5.1) mmol/L Chloride (96-108) mmol/L Carbon Dioxide (22-29) mmol/L Anion Gap (12-20) BUN (9-16) mg/dL Creatinine (0.5-1.4) mg/dL Estim Creat Clear Calc Estimated GFR Random Glucose (60-115) mg/dL Calcium (8.4-10.2) mg/dL Magnesium (1.6-2.6) mg/dL Total Bilirubin (0.0-1.0) mg/dL AST (5-31) U/L ALT (0-31) U/L Alkaline Phosphatase (39-117) U/L Total Protein (6.5-8.0) g/dL Albumin (3.5-5.0) g/dL Lipase (8-78) U/L Urine Color Yellow Urine Appearance Clear Urine pH 7.0 (5.0-9.0) Ur Specific [place] 1.015 (1.005-1.025) Urine Protein 300 (3+) H (Neg-Trace) mg/dL Urine Glucose (UA) Negative (Negative) mg/dL Urine Ketones Negative (Negative) mg/dL Urine Blood Negative (Negative) Urine Nitrite Positive H (Negative) Ur Leukocyte Esterase Small (1+) H (Negative) Urine RBC 0-2 (0-2) /HPF Urine WBC 0-5 (0-5) /HPF Ur Squamous Epith Cells 0-2 (0-2) /HPF Urine Bacteria 1+ (None Seen) Hyaline Casts 0-2 (0-2) /LPF Urine Yeast Present Influenza Type A (PCR) NEGATIVE (Negative) Influenza Type B (PCR) NEGATIVE (Negative) RSV RNA Qual (PCR) NEGATIVE (Negative) SARS-CoV-2 RNA (RT-PCR) NEGATIVE (Negative) Radiology Impression Discussion of test interpretation with radiology: I have reviewed the radiologist's reading. External Record Review External record reviewed: Inpatient record Chronic Conditions Patient?s care impacted by: Hypertension COPD Discharge Plan Discharge Clinical Impression: Abdominal pain Patient Disposition: Home, Self-Care Instructions: Abdominal Pain (ED) Additional Instructions: Ovarian cyst was found on your CT scan. Please closely follow-up with your doctor on an outpatient basis. Prescriptions: No Action multivitamin Tablet 1 tab PO DAILY Qty: 30 0RF furosemide 40 mg tablet 40 mg PO BID 30 Days Qty: 60 0RF alendronate 70 mg tablet 70 mg PO DEGROOT@0900 30 Days Qty: 5 0RF spironolactone 100 mg tablet 100 mg PO DAILY 30 Days Qty: 30 0RF simvastatin 10 mg tablet 10 mg PO BEDTIME 30 Days Qty: 30 0RF melatonin 3 mg tablet 3 mg PO BEDTIME PRN (Reason: insomnia) Qty: 30 0RF cyanocobalamin (vitamin B-12) 500 mcg tablet 500 mcg PO DAILY 30 Days Qty: 30 0RF allopurinol 300 mg tablet 300 mg PO DAILY Qty: 30 0RF albuterol sulfate 90 mcg/actuation HFA aerosol inhaler 2 puff inhalation Q4-6H PRN (Reason: shortness of breath or wheezing) 30 Days Qty: 8.5 0RF Rx Instructions: use with spacer device pregabalin 150 mg capsule 150 mg PO BID 30 Days Qty: 60 0RF Victoza 3-Toby 0.6 mg/0.1 mL (18 mg/3 mL) pen injector 1.8 mg subcut DAILY Qty: 9 0RF Trelegy Ellipta 100-62.5-25 mcg blister with device 1 ea PO DAILY Qty: 60 0RF magnesium oxide 400 mg magnesium Tablet 400 mg PO DAILY Qty: 30 0RF Skyrizi 150 mg/mL pen injector 1 ea subcut Q90D Qty: 30 0RF tramadol 50 mg Tablet 50 mg PO Q6H PRN (Reason: Pain) lidocaine 5 % Adhesive Patch,Medicated 1 patch TOPICAL DAILY Rx Instructions: leave on most painful area for up to 12 hrs cholecalciferol (vitamin D3) [Vitamin D3] 25 mcg (1,000 unit) Tablet 25 mcg PO DAILY insulin degludec [Tresiba FlexTouch U-200] 200 unit/mL (3 mL) insulin pen 55 unit subcut DAILY fluoxetine 20 mg capsule 60 mg PO DAILY acetaminophen 325 mg tablet 2 tab PO Q6H PRN (Reason: mild pain) cephalexin 500 mg capsule 500 mg PO Q6H 7 Days Qty: 28 0RF mirtazapine 30 mg tablet 30 mg PO BEDTIME Referrals: Ranjeet Rushing MD [Primary Care Provider] - (Follow-up in a few days)
--- OUTSIDE RECORDS SUMMARY | 2022-11-04 21:08 | XMS_ITS ---
:1950 Author Care Team Providers Name Role Phone ZENA DEL ROSARIO MD Primary Care Provider [phone] Allergies Code Code System Name Reaction Severity Status Onset 297299 RxNorm Ambien ? ? Active ? 352689 RxNorm Benadryl ? ? Active ? 538280 RxNorm LAC-HYDRIN ? ? Active ? 2691835 RxNorm Latex ? ? Active ? Medications Name Status Start Date Stop Date ? ? acetaminophen 300 mg-codeine 30 mg tablet Completed ? 05/31/2022 acetaminophen 325 mg tablet Active ? Not available TAKE 2 TABLETS BY MOUTH EVERY 6 HOURS NEEDED FOR MILD PAIN/H EADACHE albuterol sulfate HFA 90 mcg/actuation aerosol inhaler [...] AutoShield Duo Pen Needle 30 gauge x 3/16 Completed ? 08/12/2021 BD Ultra-Fine Mini Pen Needle 31 gauge x 3/16 Completed ? 08/12/2021 BD Ultra-Fine Short Pen Needle 31 gauge x 5/16 Completed ? 08/16/2022 USE TO INJECT INSULIN TWICE A DAY [...] A DAY cefuroxime axetil 250 mg tablet Active ? Not available 250 MG ORALLY 2 TIMES A DAY FOR 7 DAYS celecoxib 200 mg capsule Completed ? 022 cephalexin 250 mg capsule Completed ? 2020 cephalexin 500 mg capsule Completed ? 2021 TAKE 1 CAPSULE BY MOUTH EVERY 12 HOURS FOR 10 DAYS Chantix Continuing Month Box 1 mg tablet Completed ? 08/16/2022 Chantix Starting Month Box 0.5 mg (11)-1 mg (42) tablets Complet ed ? 09/22/2019 in dose pack ciprofloxacin 250 mg tablet Completed ? 07/26 TAKE 1 TABLET BY MOUTH EVERY 12 HOURS X3 DAYS colchicine 0.6 mg tablet Completed ? 022 TAKE 1 TABLET BY MOUTH EVERY DAY FOR 7 DAYS cyanocobalamin (vit B-12) 500 mcg tablet Active ? Not available TAKE 1 TABLET BY MOUTH EVERY DAY cyclobenzaprine 10 mg tablet Completed ? 11/2020 [...] (0.5 %) eye ointment Completed ? 09/22/2019 fluoxetine 20 mg capsule Active ? Not maria ines ilable TAKE 3 CAPSULES BY MOUTH EVERY DAY IN THE MORNING fluticasone propionate 50 mcg/actuation nasal Completed ? 09/22/2019 spray,suspension fluvoxamine 100 mg tablet Active ? Not av ailable fluvoxamine 50 mg tablet Active ? Not maria ines ilable TAKE 1 TABLET BY MOUTH IN THE MORNING AND TAKE 2 TABLETS BY MOUTH AT BEDTIME. Fluzone High-Dose 2019-20 (PF) 180 mcg/0.5 mL Completed ? 09/22/2019 intramuscular syringe folic acid 1 mg tablet Completed ? FreeStyle Lancets 28 gauge Completed ? 08/12 FreeStyle Esdras 2 Sensor kit Completed ? CHANGE SENSOR EVERY 14 DAYS FreeStyle Lite Meter kit Completed ? USE TO TEST 3 TIMES A DAY FreeStyle Lite Strips Completed ? 08/16/2022 USE TO TEST BLOOD SUGAR 3 TIMES DAILY furosemide 40 mg tablet Active ? Not avai lable TAKE 1 TABLET BY MOUTH TWICE A DAY gabapentin 300 mg capsule Completed ? 2021 guaifenesin 100 mg/5 mL oral liquid Completed ? 09/22/2019 Humalog U-100 Insulin 100 unit/mL subcutaneous solution Complete d ? 08/16/2022 Humira Pen Bzeiwagww-[id number]-Qomt Hid Sup Start 40 Completed ? 08/16/2022 mg/0.8 mL subcut kt Humira(CF) Pen 40 mg/0.4 mL subcutaneous kit Completed ? 08/16/2022 hydrocortisone 2.5 % topical cream Active ? Not available APPLY A THIN FILM TO THE AFFECTED SKIN AND RUB IN GENTLY AND COMPLETELY 3 TIMES A DAY hydrocortisone 2.5 % topical ointment Completed ? 09/22/2019 hydroxyzine HCl 25 mg tablet Completed ? levofloxacin 250 mg tablet Completed ? 09/05 TAKE 1 TABLET BY MOUTH EVERY DAY FOR 3 DAYS lidocaine 5 % topical patch Active ? Not available APPLY 1 PATCH TOPICALLY DAILY magnesium oxide 400 mg (241.3 mg magnesium) tablet Active ? Not available melatonin 3 mg tablet Active ? Not availa ble TAKE 1 TABLET BY MOUTH AT BEDTIME NEEDED methotrexate sodium 2.5 mg tablet Completed ? 09/22/2019 mirtazapine 15 mg tablet Completed ? 022 TAKE 1 TABLET BY MOUTH NIGHTLY AT BEDTIME. mirtazapine 30 mg tablet Active ? Not maria ines ilable TAKE 1 TABLET BY MOUTH EVERYDAY AT BEDTIME mupirocin 2 % topical ointment Completed ? 1 10/17/2021 USE 1 APPLICATION TOPICALLY 2 TIMES A DAY FOR 14 DAYS, APPL Y TO AFFECTED SKIN naproxen 250 mg tablet Completed ? 2 TAKE 1 TABLET BY MOUTH TWICE A DAY FOR 7 DAYS naproxen 500 mg tablet Completed ? 0 nicotine (polacrilex) 2 mg gum Active ? N ot available CHEW 1 PIECE OF GUM EVERY 2 HOURS NEEDED nicotine 14 mg/24 hr daily transdermal patch Active ? Not available APPLY 1 PATCH TOPICALLY DAILY nitrofurantoin monohydrate/macrocrystals 100 mg capsule Complete d ? 09/22/2019 Novolog FlexPen U-100 Insulin aspart 100 unit/mL (3 mL) subcutan eous Active ? Not available PLEASE SEE ATTACHED FOR DETAILED DIRECTIONS ondansetron HCl 4 mg tablet Completed ? 11/2020 ondansetron HCl 8 mg tablet Completed ? 11/2020 TAKE 1 TABLET BY MOUTH 3 TIMES A DAY oxycodone 5 mg capsule Completed ? 0 oxycodone 5 mg tablet Completed ? 08/16/2022 TAKE 1 TABLET BY MOUTH EVERY 4 HOURS NEEDED FOR PAIN prednisone 20 mg tablet Completed ? 08/16/20 22 TAKE 2 TABLETS (40 MG) BY MOUTH ONCE DAILY prednisone 5 mg tablet Completed ? pregabalin 150 mg capsule Active ? Not av ailable TAKE 1 CAPSULE BY MOUTH TWICE A DAY pregabalin 50 mg capsule Completed ? pregabalin 75 mg capsule Completed ? Purelax 17 gram/dose oral powder Active ? [...] TWICE A DAY tizanidine 2 mg tablet Completed ? 2 tobramycin 0.3 % eye drops Completed ? 09/22 tramadol 50 mg tablet Active ? Not availa ble TAKE 1-2 TABLETS BY MOUTH EVERY 6 HOURS SCHEDULE FOLLOW VISIT, NEEDED FOR PAIN trazodone 50 mg tablet Active ? Not avail able TAKE 1 TABLET BY MOUTH EVERY DAY AT BEDTIME NEEDED FOR INSOM JERICA Trelegy Ellipta 100 mcg-62.5 mcg-25 mcg powder for inhalation Ac tive ? Not available INHALE 1 PUFF BY MOUTH EVERY DAY ann marie conde no dispense Completed ? 02/2022 NO DISPENSE Tresiba FlexTouch U-200 insulin 200 unit/mL (3 mL) subcutaneous pen Active ? Not available INJECT 65 UNITS UNDER THE SKIN ONCE DAILY Tresiba U-100 Insulin 100 unit/mL subcutaneous solution [...] (1,000 unit) capsule Active ? Not available Problems Name Status Onset Date Source ? Depressive Disorder Active 09/22/2019 ? Edema Active 09/22/2019 ? Procedures Date Name Performed by ? 08/25/1998 Bone Fusion Information not avai lable ? Procedure on Neck Information not avai lable ? Section Information not avai lable Notes: X3 07/17/2020 XR, Ankle, 3 or More View [facility] [address] [place] [address] (Work Place) 11/11/2020 XR, Hip + Pelvis, Unilateral [facility] [address] [place] [address] (Work Place) 11/11/2020 XR, Pelvis, 1 or 2 View [facility] [address] [place] [address] (Work Place) 01/20/2021 XR, Tibia + Fibula, 2 View [facility] [address] [place] [address] (Work Place) 02/25/2021 XR, Ankle, 3 or More View [facility] [address] [place] [address] (Work Place) 08/12/2021 XR, Foot, 3 or More View [facility] [address] [place] [address] (Work Place) 08/12/2021 XR, Ribs, Unilateral, W/ PA Chest [facility] [address] [place] [address] (Work Place) 05/31/2022 XR, Knee, 3 View [facility] [address] [place] [address] (Work Place) 05/31/2022 XR, Ankle, 3 or More View [facility] [address] [place] [address] (Work Place) 08/16/2022 XR, Elbow, 3 or More View [facility] [address] [place] [address] (Work Place) Results Lab Results Date Name Specimen Result Interpretation Description Value Range Status Address ? 02/09/2022 Culture, ? Specimen clean catch ? Fin al [facility] Urine Description (urine) Refe rence Laboratori es: [address], [place] ? ? ? Special none ? Final [facility] Requests Referenc e Laboratori es: [address], [place] ? ? ABNORMAL Culture ? ? Final [facility] te Reference Laboratori es: [address], [place] ? ? ? Report Status final ? Final [facility] 02/12/2022 Refere nce Laboratori es: [address], [place] ? ? ? Organism ? ? Final [facility] Reference Labor[facility]: [address], [place] ? ? ? Method method min. ? Final [facility] gruber inhib. conc. Refe rence (mcg/mL) [...] ? ? Intermedia Gentamicin gentamicin ? Nitza l [facility] te intermediate Refe rence Laboratori es: [address], [place] ? ? Susceptibl Levofloxacin levofloxacin ? Final [facility] e susceptible Refer ence Laboratori es: [address], [place] ? ? Susceptibl Meropenem meropenem ? Final [facility] e susceptible Refer ence Laboratori es: [address], [place] ? ? Susceptibl Piperacillin/ piperacillin/t ? Final [facility] e tazobactam azobac Refere nce susceptible Labor atories: [address], [place] ? ? Susceptibl Tobramycin tobramycin ? Nitza l [facility] e susceptible Refer ence Laboratori es: [address], [place] 02/09/2022 Urinalysis, ? Leukocytes Moderate ++ ? ? Byst [facility] [place] ow: [address], [place] ? ? ? Nitrite positive ? ? Byst [facility] [place] : [address], [place] ? ? ? Urobilinogen 0.2-Normal ? ? Byst [facility] [place] : [address], [place] ? ? ? Protein Trace ? ? Byst [facility] [place] : [address], [place] ? ? ? Ph 7.0 ? ? Byst [facility] [place] : [address], [place] ? ? ? Blood Trace(non-hemo ? ? By st [facility] lyzed) [place] : [address], [place] ? ? ? Specific 1.010 ? ? Byst [facility] [place] w: [address], [place] ? ? ? Ketone Negative ? ? Byst [facility] [place] : [address], [place] ? ? ? Bilirubin Negative ? ? Byst [facility] [place] : [address], [place] ? ? ? Glucose Negative ? ? Byst [facility] [place] : [address], [place] ? ? ? Appearance cloudy ? ? Byst [facility] [place] : [address], [place] ? ? ? Color yellow ? ? Byst [facility] [place] : [address], [place] 05/28/2021 Culture, ? Specimen E swab right ? Fi nal [facility] Superficial Description foot Reference Wound Laboratori es: [address], [place] ? ? ? Special none ? Final [facility] Requests Referenc e Laboratori es: [address], [place] ? ? ? gram Stain ? ? Final [facility] Reference [facility]: [address], [place] ? ? ABNORMAL Culture ? ? Final [facility] Reference [facility]: [address], [place] ? ? ? Report Status final ? Final [facility] 05/31/2021 Refere nce Laboratori es: [address], [place] ? ? ? Organism ? ? Final [facility] Reference Labor[facility]: [address], [place] ? ? ? Method method min. ? Final [facility] inhib. conc. Refe rence (mcg/mL) Laborato evan: [address], [place] ? ? Resistant Ciprofloxacin ciprofloxacin ? Final [facility] resistant Referen ce Laboratori es: [address], [place] ? ? Resistant Clindamycin clindamycin ? Fin al [facility] resistant Referen ce Laboratori es: [address], [place] ? ? Resistant Erythromycin erythromycin ? F inal [facility] resistant Referen ce Laboratori es: [address], [place] ? ? Resistant Levofloxacin levofloxacin ? F inal [facility] resistant Referen ce Laboratori es: [address], [place] ? ? Susceptibl Linezolid linezolid ? Final [facility] e susceptible Refer ence Laboratori es: [address], [place] ? ? Resistant Oxacillin oxacillin ? Final [facility] resistant Referen ce Laboratori es: [address], [place] ? ? Susceptibl Rifampin ? ? Final [facility] e Reference Laborator[facility] es: [address], [place] ? ? Susceptibl Tetracycline tetracycline ? Final [facility] e susceptible Refer ence Laboratori es: [address] ? ? Susceptibl Trimeth/sulfa trimeth/sulfam ? Final [facility] e methox ethox Reference susceptible Labor atories: [address] ? ? Susceptibl Vancomycin vancomycin ? Nitza l [facility] e susceptible Refer ence Laboratori es: [address] Past Encounters Encounter Date Diagnosis Provider 08/16/2022 Pain of Left Elbow Joint; Bursitis of Pa joshua Brown, PIER WORKER: [address], [place] [address], Ph. 05/31/2022 Pain of Left Knee Joint; Pain of Left [place] sreekanth Shi, PIER WORKER: Ankle Joint; Sprain of Left Ankle; [address], [place], [place] Sprain of Left Knee [address], Ph. [phone] 04/17/2022 Subconjunctival Hemorrhage of Right Destinee CARMEN Lucas: [address], [place], [place] [address], Ph. 02/09/2022 Left Flank Pain; Acute Urinary Tract Viktor a CARMEN Lucas: [address], [place], [place] [address], Ph. 09/05/2021 Cellulitis of Lower Limb Trudyia Ana Fry PA: [address], [place] [address], Ph. [phone] 08/12/2021 Falling Injury; Laceration of [place] n Navjot Dunn MD: [address]; Sprain of Left Ankle; [address], [place], [place] Fracture of Fourth Metatarsal Bone; [phone], Ph. Fracture of Left Rib 05/28/2021 Cellulitis of Left Foot; Chronic Ulcer N CARMEN Hardy: of Skin; Cellulitis of Right Foot [address], [place] [address], Ph. [phone] Social History Tobacco Smoking Status Current Some Day Smoker Vaccine List Vaccine Type COVID-19, mRNA, LNP-S, PF, 30 mcg/0.3 mL dose (Promisec) 09/03/2020 09/24/2020 influenza, high dose seasonal 05/05/2015 05/31/2016 06/17/2019 influenza, seasonal, injectable 03/25/2010 06/11/2011 04/28/2012 05/05/2013 05/29/2014 pneumococcal polysaccharide PPV23 10/05/2013 Td (adult) preservative free 03/25/2017 Tdap 08/08/2010 zoster recombinant 02/09/2018 05/10/2020 Plan of Care Patient Instructions Try voltaren cream topically. Ice rest elevate. Contact [facility] in 2 - 3 days if no improvement for orthopedic referral. Reminders Provider Appointments None recorded. ? ? Lab None recorded. ? ? Referral None recorded. ? ? Procedures None recorded. ? ? Surgeries None recorded. ? ? Imaging None recorded. ? ? Vitals 08/16/2022 06:00PM Established Patient Blood Pressure 161/75 mm[Hg] 05/31/2022 10:47AM Established Patient Blood Pressure 134/71 [...]
--- OUTSIDE RECORDS SUMMARY | 2022-11-04 21:08 | XMS_ITS | Encounter Summary ---
:1950 Author Care Team Providers Name Role Phone Ranjeet Rushing MD Primary Care Provider [phone] Reason for Visit Left elbow pain pt. c/o L elbow pain, swelling, No injur y that pt. recalls X1week Assessment and Plan 1. Pain of left elbow joint ? XR, elbow, 3 or more view 2. Bursitis of olecranon of left elbow Discussion Note: None recorded.Patient educational handouts: No information available. Plan of Care Patient Instructions Try voltaren cream topically. Ice rest elevate. Contact [facility] in 2 - 3 days if no improvement for orthopedic referral. Reminders Provider Appointments None recorded. ? ? Lab None recorded. ? ? Referral None recorded. ? ? Procedures None recorded. ? ? Surgeries None recorded. ? ? Imaging XR, Elbow, 3 or More View 08/16/2022 [facility] Medications Name Start Date ? ? acetaminophen 325 mg tablet ? TAKE 2 TABLETS BY MOUTH EVERY 6 HOURS NEEDED FOR M ILD PAIN/HEADACHE albuterol sulfate HFA 90 mcg/actuation aerosol inhaler ? TAKE 2 PUFF INHALATIONS EVERY 4-6 HOURS NEEDED alendronate 70 mg tablet ? TAKE 1 TABLET BY MOUTH EVERY WEEK allopurinol 300 mg tablet ? TAKE 1 TABLET BY MOUTH EVERY DAY bupropion HCl XL 300 mg 24 hr tablet, extended release ? TAKE 1 TABLET BY MOUTH EVERY DAY cefuroxime axetil 250 mg tablet ? 250 MG ORALLY 2 TIMES A DAY FOR 7 DAYS cyanocobalamin (vit B-12) 500 mcg tablet ? TAKE 1 TABLET BY MOUTH EVERY DAY diclofenac 1 % topical gel ? APPLY 2-3 GRAMS TO AREA 3 TIMES A DAY fluoxetine 20 mg capsule ? TAKE 3 CAPSULES BY MOUTH EVERY DAY IN THE MORNING fluvoxamine 100 mg tablet ? TAKE 1 TABLET BY MOUTH TWICE A DAY fluvoxamine 50 mg tablet ? TAKE 1 TABLET BY MOUTH IN THE MORNING AND TAKE 2 TABL ETS BY MOUTH AT BEDTIME. furosemide 40 mg tablet ? TAKE 1 TABLET BY MOUTH TWICE A DAY hydrocortisone 2.5 % topical cream ? APPLY A THIN FILM TO THE AFFECTED SKIN AND RUB IN GENTLY AND COMPLETELY 3 TIMES A DAY lidocaine 5 % topical patch ? APPLY 1 PATCH TOPICALLY DAILY magnesium oxide 400 mg (241.3 mg magnesium) tablet ? TAKE 1 TABLET BY MOUTH EVERY DAY melatonin 3 mg tablet ? TAKE 1 TABLET BY MOUTH AT BEDTIME NEEDED mirtazapine 30 mg tablet ? TAKE 1 TABLET BY MOUTH EVERYDAY AT BEDTIME nicotine (polacrilex) 2 mg gum ? CHEW 1 PIECE OF GUM EVERY 2 HOURS NEEDED nicotine 14 mg/24 hr daily transdermal patch ? APPLY 1 PATCH TOPICALLY DAILY Novolog FlexPen U-100 Insulin aspart 100 unit/mL (3 mL ) subcutaneous ? PLEASE SEE ATTACHED FOR DETAILED DIRECTIONS pregabalin 150 mg capsule ? TAKE 1 [...] TAKE 1 TABLET BY MOUTH EVERY DAY tramadol 50 mg tablet ? TAKE 1-2 TABLETS BY MOUTH EVERY 6 HOURS SCHEDULE FOLLOW VISIT, NEEDED FOR PAIN trazodone 50 mg tablet ? TAKE 1 TABLET BY MOUTH EVERY DAY AT BEDTIME NEEDED FOR INSOMNIA Trelegy Ellipta 100 mcg-62.5 mcg-25 mcg powder for inh alation ? INHALE 1 PUFF BY MOUTH EVERY DAY Tresiba FlexTouch U-200 insulin 200 unit/mL (3 mL) sub cutaneous pen ? INJECT 65 UNITS UNDER THE SKIN ONCE DAILY Victoza 3-Toby 0.6 mg/0.1 mL (18 mg/3 mL) subcutaneous pen injector ? INJECT 1.8 MG UNDER THE SKIN ONCE DAILY Vitamin D3 25 mcg (1,000 unit) capsule ? TAKE 1 CAPSULE BY MOUTH EVERY DAY. Medications Administered None recorded. Vitals Blood Pressure 161/75 mm[Hg] Results Lab Results None recorded. Allergies Code Code System Name Reaction Severity Onset 311610 RxNorm Ambien ? ? ? 628659 RxNorm Benadryl ? ? ? 560408 RxNorm LAC-HYDRIN ? ? ? 8277363 RxNorm Latex ? ? ? Problems Name Status Onset Date Source ? Depressive Disorder Active 09/22/2019 ? Edema Active 09/22/2019 ? Procedures Date Name Performed by ? 08/25/1998 Bone Fusion Information not avai lable ? Procedure on Neck Information not avai lable ? Section Information not avai lable Notes: X3 08/16/2022 XR, Elbow, 3 or More View [facility] [address] [place] [address] (Work Place) Vaccine List Vaccine Type COVID-19, mRNA, LNP-S, PF, 30 mcg/0.3 mL dose (Neovasc) 09/03/2020 09/24/2020 influenza, high dose seasonal 05/05/2015 05/31/2016 06/17/2019 influenza, seasonal, injectable 03/25/2010 06/11/2011 04/28/2012 05/05/2013 05/29/2014 pneumococcal polysaccharide PPV23 10/05/2013 Td (adult) preservative free 03/25/2017 Tdap 08/08/2010 zoster recombinant 02/09/2018 05/10/2020 Social History Tobacco Smoking Status Current Some Day Smoker What is your level of alcohol consumption? None Which illicit or recreational drugs have you used? none Functional Status Unknown. Past Encounters Encounter Date Diagnosis Provider 08/16/2022 Pain of Left Elbow Joint; Bursitis Patri selin Brown, FRAMING MANAGER: [address], [place] [address], Ph. History of Present Illness ? Elbow/Forearm Reported By: Patient HPI: Location: right, posterior. Quality: throbbing. Severity: moderate. Duration: 7 days. Timing: ac [place]. Context: cannot identify; no known injury. Alleviating Factors: nothing helps; has tramadol. Aggravating Factors: ; bending. Associat ed Symptoms: no weakness, no numbness, no tingling, no ecchymosis, no catching/locking, no popping/clicking, no buckling, no grinding, no in stability, no radiation down arm, no fever, no chills, swelling, redness , warmth Note: History of gout on R great toe. Review of Systems ? Comprehensive Adult Problem [...] nausea, no vomiting, no diarrhea Musculoskeletal: Musculoskeletal: no trauma, soft tissue swelling Skin: Skin: pain Neurological symptoms: Neuro: no numbness, no weakn ess, no tingling, no burning, no shooting pain, no headache, no dizziness Endocrine: Endocrine: normal drinking, no temperature intolerance Allergic/Immunologic: Allergy/Immunologic: no snee zing, no runny nose Physical Exam ? Brief Elbow/Forearm Exam Reported By: Patient Constitutional: General Appearance: healthy- appearing, normal body habitus, NAD Psychiatric: Orientation: oriented to per son, oriented to place, oriented to time Cardiovascular System: Arterial Pulses Left: radial normal. Edema Left: LUE; localized over posterior elb ow, olecranon Elbows: Inspection Left: normal guajardo rosalba angle, no deformity, no ecchymosis, no abrasion, red ness, swelling; no abrasions or rashes noted. Palpation Left : no induration, warmth, tenderness of the olecranon bursa, tenderness of the olecranon. Active Range of M otion Left: flexion normal, extension normal, pronation normal, supination normal. Stability Left: no dislocati on, no laxity, no subluxation. Forearm Left: no tenderness, no deformity, no redness, no swelling, no warmth, no brui sing. Special Tests Left: ; painful to flex
[2022-11-04 21:19] LABS: RBC Urine 0-2 /HPF (0-2); UACC Culture Trigger YES; WBC Urine 0-5 /HPF (0-5)
[2022-11-04 21:20] LABS: Bacteria Urine 1+ (None Seen); Hyaline Casts Urine 0-2 /LPF (0-2); Squamous Epithelial Cell Urine 0-2 /HPF (0-2)
--- NOTE | 2022-11-04 22:04 | PC.NURSE ---
Pt a&o, no sob or chest pain, no sign of distress, Reviewed discharge instruction with pt and family, both verbalized understanding. Pt wheeled out.
== END 2022-11-04 22:03 | disposition home or self-care (01) ==
PROVIDERS: Physician Assistant Medical; Emergency Provider Emergency Medicine Emergency Medical Services; PCP Internal Medicine
DX: R10.32 Left lower quadrant pain (principal); R94.31 Abnormal electrocardiogram [ECG] [EKG]; Z20.822 Contact with and (suspected) exposure to COVID-19; Z20.828 Contact with and (suspected) exposure to other viral communicable diseases; Z79.899 Other long term (current) drug therapy; Z87.891 Personal history of nicotine dependence
CPT/HCPCS: 0241U; 74176; 80053; 81001; 83690; 83735; 85025; 85610; 87086; 87088; 87186; 93005; 99284; 99285

== ENCOUNTER → 2022-12-04 10:21 | Outpatient (BNVA) | payer OTHER, SELFPAY | PROVIDERS: PCP Internal Medicine; Visit Provider Hospitalist | DX: J41.0 Simple chronic bronchitis (principal); J18.9 Pneumonia, unspecified organism; J96.11 Chronic respiratory failure with hypoxia; M54.9 Dorsalgia, unspecified; Z87.891 Personal history of nicotine dependence | CPT/HCPCS: 94618; 94640; 99212 ==

== ENCOUNTER 2023-07-07 08:09 | Emergency (ER) | payer OTHER, SELFPAY ==
[2023-07-07] VITALS (9 sets, daily range): BP systolic 120–166; BP diastolic 60–79; PULSE 75–92; RESP 16–22; TEMP 36.2–36.7; O2SAT 85–98; BMI 27.1
--- NOTE | ~2023-07-07 | XR_ITS ---
EXAMINATION: XR CHEST XR LEFT SHOULDER CLINICAL INFORMATION: Status post fall on Friday. COMPARISON: 06/13/2022 and 06/09/2022 TECHNIQUE: Frontal view of the chest was obtained. AP, Grashey and transscapular Y views of the left shoulder were obtained. FINDINGS: Chest: Low lung volumes. The right hemidiaphragm remains elevated. There is bibasilar atelectasis. Stable diffuse prominence of the interstitial markings. No focal consolidation. No pleural effusion. Cardiac silhouette is unchanged. Left lateral eighth rib fracture. Left shoulder: The bones are osteopenic. Alignment is anatomic. Hypertrophic changes of the acromioclavicular joint. Glenohumeral joint space is maintained. Tiny focus of mineralization along the posterior superior humeral head. XR/XR chest 1V IMPRESSION: Left lateral 8th rib fracture.
--- NOTE | ~2023-07-07 | XR_ITS ---
EXAMINATION: XR CHEST XR LEFT SHOULDER CLINICAL INFORMATION: Status post fall on Friday. COMPARISON: 06/13/2022 and 06/09/2022 TECHNIQUE: Frontal view of the chest was obtained. AP, Grashey and transscapular Y views of the left shoulder were obtained. FINDINGS: Chest: Low lung volumes. The right hemidiaphragm remains elevated. There is bibasilar atelectasis. Stable diffuse prominence of the interstitial markings. No focal consolidation. No pleural effusion. Cardiac silhouette is unchanged. Left lateral eighth rib fracture. Left shoulder: The bones are osteopenic. Alignment is anatomic. Hypertrophic changes of the acromioclavicular joint. Glenohumeral joint space is maintained. Tiny focus of mineralization along the posterior superior humeral head. XR/XR shoulder LT min 2V IMPRESSION: Left lateral 8th rib fracture.
--- NOTE | 2023-07-07 08:27 | ED.EXTPRO ---
HPI - Extremity Problem General Chief complaint: Extremity Injury, Upper Stated complaint: INCR L ARM PAIN S/P FALL FRIDAY FROM [facility] PER EMS Time Seen by Provider: 07/07/23 08:10 Source: patient and old records reviewed Mode of arrival: EMS Limitations: no limitations History of Present Illness HPI Narrative: 73 yo female with COPD, resp failure, 2L PRN O2 use, back pain, pneumonia notes she was with family in [facility] this weekend when they all went to a store on Friday. She notes she tripped and fell landing on her L shoulder no head strike or LOC. She has had L shoulder pain since and cannot raise the arm. She never sought care as she wanted to come home first. She is assisted living resident. She denies any other injuries. She is not on blood thinners. MD Complaint: extremity pain and joint pain Onset (ago): day(s) (2) Pain Consistency: constant Location: left and upper extremity Quality: aching and constant Radiation: none Relieving factors: immobilization Exacerbating factors: range of motion and palpation Associated symptoms: denies other symptoms Context: other (trip and fall) Related Data Home Medications Medication Instructions Recorded Confirmed cholecalciferol (vitamin D3) 25 25 mcg PO DAILY 06/09/22 06/13/22 mcg (1,000 unit) tablet (Vitamin D3) insulin degludec 200 unit/mL (3 55 unit subcut DAILY 06/09/22 06/13/22 mL) subcutaneous pen (Tresiba FlexTouch U-200 insulin) lidocaine 5 % topical patch 1 patch topical DAILY 06/09/22 06/13/22 tramadol 50 mg tablet 50 mg PO Q6H PRN Pain 06/09/22 06/13/22 acetaminophen 325 mg tablet 2 tab PO Q6H PRN mild pain 06/13/22 06/13/22 fluoxetine 20 mg capsule 60 mg PO DAILY 08/05/22 mirtazapine 30 mg tablet 30 mg PO BEDTIME 08/05/22 semaglutide 3 mg tablet (Rybelsus) 3 mg PO DAILY 12/04/22 trazodone 50 mg tablet 50 mg PO BEDTIME PRN 12/04/22 Previous Rx's Medication Instructions Recorded albuterol sulfate 90 mcg/actuation 2 puff inhalation Q4-6H PRN 05/13/22 aerosol inhaler shortness of breath or wheezing 30 days #8.5 grams alendronate 70 mg tablet 70 mg PO DEGROOT@0900 30 days #5 tabs 05/13/22 allopurinol 300 mg tablet 300 mg PO DAILY #30 tabs 05/13/22 cyanocobalamin (vitamin B-12) 500 500 mcg PO DAILY 30 days #30 tabs 05/13/22 mcg tablet fluticasone fur. 100 mcg-umeclid 1 ea PO DAILY #60 ea 05/13/22 62.5 mcg-vilant 25 mcg inhalat.powder (Trelegy Ellipta) furosemide 40 mg tablet 40 mg PO BID 30 days #60 tabs 05/13/22 magnesium oxide 400 mg PO DAILY #30 tabs 05/13/22 melatonin 3 mg tablet 3 mg PO BEDTIME PRN insomnia #30 05/13/22 tabs multivitamin 1 tab PO DAILY #30 tabs 05/13/22 pregabalin 150 mg capsule 150 mg PO BID 30 days #60 caps 05/13/22 risankizumab-rzaa 150 mg/mL 1 ea subcut Q90D #30 mL 05/13/22 subcutaneous pen injector (Celina) simvastatin 10 mg tablet 10 mg PO BEDTIME 30 days #30 tabs 05/13/22 spironolactone 100 mg tablet 100 mg PO DAILY 30 days #30 tabs 05/13/22 Allergies Allergy/AdvReac Type Severity Reaction Status Date / Time diphenhydramine Allergy Intermediate Hives Verified 07/07/23 09:20 [From Benadryl] lactic acid [From LAC-HYDRIN] Allergy Intermediate RASH Verified 07/07/23 09:20 latex [Latex] Allergy Intermediate HIVES Verified 07/07/23 08:19 varenicline [From CHANTIX] Allergy Intermediate RASH Verified 07/07/23 08:19 zolpidem [From AMBIEN] AdvReac Severe SLEEP Verified 07/07/23 08:19 WALKING Review of Systems Review of Systems: Constitutional : No Fever, No Chills ENT/Mouth : No Ear Pain, No Hoarseness, No sore throat Eyes: No Eye Pain, No Swelling, No Redness, No Foreign Body Cardiovascular : No Chest Pain, No SOB Respiratory : No Cough, No Dyspnea Gastrointestinal : No Nausea, No Vomiting, No Diarrhea, No abdominal Pain Genitourinary : No Dysuria, No Hematuria Musculoskeletal : positive joint pain, No Myalgias, No Joint Swelling Skin : No Skin lacerations, No rash Neuro : No Weakness, No Numbness, No Loss of Consciousness, No Dizziness, No Headache Psych : No Anxiety/Panic, No Depression All other systems reviewed and are negative [facility] Past Medical History Attestation statement: The following information was validated with the patient. Source: old records reviewed Medical History Chronic respiratory failure Back pain Tobacco dependence COPD (chronic obstructive pulmonary disease) Pneumonia Acute UTI Sepsis Osteoporosis Diabetic neuropathy CKD (chronic kidney disease) Hyperlipidemia Spondylosis Depression Psoriasis Carpal tunnel syndrome Diabetes Anxiety HTN (hypertension) Cellulitis Venous stasis dermatitis Chronic back pain Surgical History S/P cervical spinal fusion H/O section Family History Family History Mother Diabetes Social History Social History Household Members: None Household Members Other:: daughter helps out daily Housing: Apartment Do you presently have visiting nurse or other home services: Yes Alcohol intake: never Patient Tobacco Use Status: Former Tobacco user Quit Date: 2-3 weeks ago Tobacco use type: Cigarette Cigarette Packs Per Day: 0 Cigarettes Per Day: 0 Smoked in Last 30 Days: Yes e-Cigarette/Vaping Use: Never Used Second Hand Smoke Exposure: No Use of substances other than those prescribed or required for medical reasons: No Substance Use Type: Marijuana Advance Directives: No Advance Directives Information Provided: No Advance Directives Date on File: 06/07/20 service: No Current occupational status: unemployed Sexual orientation: Straight/Heterosexual Physical Exam Vital Signs: Vital Signs: Last Vital Signs Temp 98.1 F 07/07/23 08:19 Pulse 81 07/07/23 10:11 Resp 16 07/07/23 10:11 BP 123/61 07/07/23 10:11 Pulse Ox 95 07/07/23 10:11 O2 Del Method Nasal Cannula 07/07/23 10:11 O2 Flow Rate 1 07/07/23 10:11 BMI result Body Mass Index 27.1 Appearance: Alert. Oriented X3. No acute distress. Eyes: Pupils equal, round and reactive to light. ENT: Pharynx normal. Neck: Normal inspection. Neck supple. CVS: Normal heart rate and rhythm. Pulses normal. Respiratory: No respiratory distress. Breath sounds bases diminished with wheezes noted mild exp not on O2 on arrival. Abdomen: Soft and nontender. Back: atraumatic Skin: Skin warm and dry. Normal skin color. Normal skin turgor. Extremities: L shoulder ttp with bruising noted over clavicle and AC joint area - no tenting, distal NV intact, no pain at wrist or elbow Neuro: Oriented X 3. No motor deficit. No sensory deficit. Course Course Course Narrative: Patient placed in physician observation at 1033am. The indication for observation is that the patient needs more time to see PT/CM given safety concerns about DC at [facility]. At this time the patient is frail and older and a fall risk, lungs chronically diminished, CV RRR abd nontender, neuro is intact. Medications Administered Discontinued Medications Generic Name Dose Route Start Last Admin Trade Name Freq PRN Reason Stop Dose Admin Albuterol/Ipratropium 3 ml 07/07/23 08:29 07/07/23 09:04 Albuterol/Iprat 2.5/0.5mg 3 Ml Ampul.Neb INHALE 07/07/23 08:30 3 ml ONCE ONE Administration Tramadol HCl 50 mg 07/07/23 08:25 07/07/23 09:08 Tramadol Hcl 50 Mg Tablet PO 07/07/23 08:26 50 mg ONCE ONE Administration Medical Decision Making Medical Decision Making [facility] Narrative: 73 yo female with COPD, resp failure, 2L PRN O2 use, back pain, pneumonia here with c/o trip and fall injuring L shoulder on Friday. She denies head strike neck pain or LOC. She did not seek care in [place] - clinically concern for humerus vs clavicle fracture she is distal NV intact. Will obtain imaging of chest and L shoulder PO tramadol as she takes it a home and order duoneb for mild wheezes - she is 89% on RA but has PRN O2 at home. Differential Diagnosis Differential Diagnoses: The differential diagnosis associated with the presentation includes fracture, sprain, strain, dislocation Admission/Observation Consideration of admission/observation: Escalation of care including admission/observation considered Independent Interpretation I performed an independent interpretation of an: Plain X-Ray Radiology Impression Discussion of test interpretation with radiology: I have reviewed the radiologist's reading. Independent Historian Clinical information obtained from an independent historian. History obtained from or confirmed by: EMS External Record Review External record reviewed: Inpatient record Discharge Plan Discharge Clinical Impression: Acute shoulder pain Qualifiers: Laterality: left Qualified Code(s): M25.512 - Pain in left shoulder Fracture of rib Qualifiers: Encounter type: initial encounter Rib fracture type: single rib Fracture type: closed Laterality: left Qualified Code(s): S22.32XA - Fracture of one rib, left side, initial encounter for closed fracture Patient Disposition: Still a Patient Additional Instructions: xray is normal but this could be an issue like a ligament or rotator cuff tear. will need MRI and further workup follow up with primary care doctor. Prescriptions: No Action multivitamin Tablet 1 tab PO DAILY Qty: 30 0RF furosemide 40 mg tablet 40 mg PO BID 30 Days Qty: 60 0RF alendronate 70 mg tablet 70 mg PO DEGROOT@0900 30 Days Qty: 5 0RF spironolactone 100 mg tablet 100 mg PO DAILY 30 Days Qty: 30 0RF simvastatin 10 mg tablet 10 mg PO BEDTIME 30 Days Qty: 30 0RF melatonin 3 mg tablet 3 mg PO BEDTIME PRN (Reason: insomnia) Qty: 30 0RF cyanocobalamin (vitamin B-12) 500 mcg tablet 500 mcg PO DAILY 30 Days Qty: 30 0RF allopurinol 300 mg tablet 300 mg PO DAILY Qty: 30 0RF albuterol sulfate 90 mcg/actuation HFA aerosol inhaler 2 puff inhalation Q4-6H PRN (Reason: shortness of breath or wheezing) 30 Days Qty: 8.5 0RF Rx Instructions: use with spacer device pregabalin 150 mg capsule 150 mg PO BID 30 Days Qty: 60 0RF Trelegy Ellipta 100-62.5-25 mcg blister with device 1 ea PO DAILY Qty: 60 0RF magnesium oxide 400 mg magnesium Tablet 400 mg PO DAILY Qty: 30 0RF Skyrizi 150 mg/mL pen injector 1 ea subcut Q90D Qty: 30 0RF tramadol 50 mg Tablet 50 mg PO Q6H PRN (Reason: Pain) lidocaine 5 % Adhesive Patch,Medicated 1 patch TOPICAL DAILY Rx Instructions: leave on most painful area for up to 12 hrs cholecalciferol (vitamin D3) [Vitamin D3] 25 mcg (1,000 unit) Tablet 25 mcg PO DAILY insulin degludec [Tresiba FlexTouch U-200] 200 unit/mL (3 mL) insulin pen 55 unit subcut DAILY fluoxetine 20 mg capsule 60 mg PO DAILY acetaminophen 325 mg tablet 2 tab PO Q6H PRN (Reason: mild pain) mirtazapine 30 mg tablet 30 mg PO BEDTIME Rybelsus 3 mg tablet 3 mg PO DAILY trazodone 50 mg tablet 50 mg PO BEDTIME PRN
--- NOTE | 2023-07-07 08:30 | PC.NURSE ---
patient a&ox3, pt c/o lue pain 06/03, pt also has chronic cough per ems- upon ascultation lll has crackles with in/ex wheezing throughout- provider aware, pt wears O2 PRN at home. Pt awaiting xr and will apply sling after. will continue to monitor
--- OUTSIDE RECORDS SUMMARY | 2023-07-07 08:44 | XMS_ITS | Continuity of Care Document ---
Author Name Unknown Organization [facility] Paulino Leif lt Address [address] [place] [address]- Care Team Providers Care Tractor Expert Name Role Phone Ranjeet Rushing MD Primary Care Physician [phone] Encounter [facility] Date(s): 11/13/22 - 12/13/22 [facility] Adult [address] [place] [address]- Allergies, Adverse Reactions, Alerts Substance Reaction Severity Status Lac-Hydrin Active Ambien Active Benadryl Active Latex Active Immunizations Given and Recorded Vaccine Date Status Refusal Reason zoster vaccine, inactivated 08/28/22 Recorded zoster vaccine, inactivated 05/21/22 Recorded zoster vaccine, inactivated 05/10/20 Recorded zoster vaccine, inactivated 03/30/18 Recorded zoster vaccine, inactivated 02/09/18 Recorded pneumococcal 20-valent conjugate vaccine 08/05/22 Recorded influenza virus vaccine, inactivated 05/21/22 Adria rded influenza virus vaccine, inactivated 06/12/21 Adria rded influenza virus vaccine, inactivated 06/17/19 Adria rded influenza virus vaccine, inactivated 03/30/18 Adria rded influenza virus vaccine, inactivated 1 05/28/17 Gi sarah influenza virus vaccine, inactivated 2 05/31/16 Re corded influenza virus vaccine, inactivated 05/22/15 Adria rded influenza virus vaccine, inactivated 05/05/15 Adria rded influenza virus vaccine, inactivated 05/29/14 Adria rded influenza virus vaccine, inactivated 05/05/13 Adria rded influenza virus vaccine, inactivated 04/28/12 Adria rded influenza virus vaccine, inactivated 06/11/11 Adria rded influenza virus vaccine, inactivated 03/25/10 Adria rded influenza virus vaccine, inactivated 3 09/14/09 Gi sarah SARS-CoV-2 (COVID-19) mRNA BNT-162b2 vac 06/12/21 Recorded SARS-CoV-2 (COVID-19) mRNA BNT-162b2 vac 09/24/20 Recorded SARS-CoV-2 (COVID-19) mRNA BNT-162b2 vac 09/03/20 Recorded Influenza Virus Vaccine (oldterm) 06/17/19 Recorde d Influenza Virus Vaccine (oldterm) 4 05/05/08 Given Influenza Virus Vaccine (oldterm) 5 07/30/07 Given Influenza Virus Vaccine (oldterm) 6 05/29/06 Given tetanus-diphtheria toxoids (Td) 7 03/25/17 Recorde d Zoster Vaccine Live 8, 9 08/30/15 Recorded pneumococcal 13-valent vaccine 06/21/15 Given pneumococcal 23-valent vaccine 10/05/13 Recorded tetanus/diphtheria/pertussis, acel(Tdap) 08/08/10 Recorded Tet/Diphth/Acel, Pertussis (oldterm) 10 07/19/08 G iven Pneumococcal Poly (PPV23) (oldterm) 11 07/19/08 Gi sarah 1Result Comment: [05/28/2017] [facility]: [id number] 2Location History: [facility] 3Admin Note: VIS GIVEN-DATED 04/04/09 4Admin Note: vis given 5Admin Note: VIS given 6Admin Note: VIS-GIVEN 7Location History: [facility] 8Location History: [facility] 9Evelyne Comment: [10/17/2015] PER NICO AT [facility] 10Admin Note: VIS GIVEN 11Admin Note: VIS GIVEN Medications 12 inch Grab Bars 12 inch Grab Bars, See Instructions, # 2 each, Refills 0, Tot. Refills 0, Maintenance, Grab bars : Length 12inches Use as directed DX Unsteady Gait ICD10 R26.81 HT: 5'3 Weight 162lbs Length of need Lifetime, 07/07/20 11:45:00 EST, Supply Start Date: 07/07/20 Status: Ordered albuterol 90 mcg/inh inhalation powder 2 puffs, Inhalation, Every 6 hours, PRN as needed, # 1 each, 11 Refills, Maintenance, 05/07/22 16:00:00 EDT, Powder, [facility]/pharmacy #[id number], 2 puffs Inhalation Every 6 hours,PRN:as needed, 160, cm, 04/24/22 8:34:00 EDT, Height, 72.7, kg, 04/24/22 8:34:00... Start Date: 05/07/22 Status: Ordered alendronate 70 mg oral tablet 1 tablet, By Mouth, Every week, BUBBLE PACK, # 5 tablet, 1 Refills, Maintenance, 11/28/22 11:43:00 EDT, [facility], 161, cm, 11/28/22 10:59:00 EDT, Height, 77.2, kg, 11/13/22 13:42:00EDT, Dry Weight Start Date: 11/28/22 Status: Ordered allopurinol 300 mg oral tablet 1, tablet, By Mouth, Daily, # 30 tablet, Refills 1, Tot. Refills 1, 11/28/22 11:43:00 EDT, Route toPharmacy Electronically, [facility], 161, cm, 11/28/22 10:59:00 EDT, Height, 77.2, kg, 11/13/22 13:42:00 EDT, Dry Weight Start Date: 11/28/22 Status: Ordered BD UF SHORT PEN NEEDLE [id number] BD UF SHORT PEN NEEDLE [id number], See Instructions, # 200 Unknown, 5 Refills, USE TO INJECT INSULIN TWICE A DAY, 160, cm, 11/27/21 14:08:00 EDT, Height, 74.8, kg, 11/01/21 15:05:00 EST, Dry Weight Start Date: 11/30/21 Status: Ordered cyanocobalamin 500 mcg oral tablet 1 tablet = 500 mcg, By Mouth, Daily, BUBBLE PACK, # 30 tablet, 1 Refills, Maintenance, 11/28/22 11:43:00 EDT, Tablet, [facility], 161, cm, 11/28/22 10:59:00 EDT, Height, 77.2, kg, 11/13/22 13:42:00 EDT, Dry Weight Start Date: 11/28/22 Status: Ordered Fish Oil = 1,000 mg, By Mouth, Daily, 0 Refills, Maintenance, 11/17/15 13:08:57 EDT Start Date: 11/17/15 Status: Ordered FLUoxetine 20 mg oral capsule 60 mg, 3, capsule, By Mouth, Daily, BUBBLE PACK, # 90 capsule, Refills 1, Tot. Refills 1, Maintenance, 11/28/22 11:43:00 EDT, Route to Pharmacy Electronically, [facility], Partial fill upon patient request if the prescription is for a sche... Start Date: 11/28/22 Status: Ordered Freestyle Lite Lancets See Instructions, # 100 each, Refills 5, Tot. Refills 5, Maintenance, TEST BS TID DX E11.9 IDDMII, 09/16/19 13:37:00 EST, Compound, 160.02, cm, 09/06/19 12:51:00 EST, Height, 81.6, kg, 07/27/19 14:52:00 EST, Dry Weight Start Date: 09/16/19 Status: Ordered Freestyle Lite Monitor See Instructions, # 1 each, Refills 0, Tot. Refills 0, Maintenance, TEST BS TID DX E11.9 IDDMII, 05/11/20 11:06:00 EDT, Compound, 160.02, cm, 05/09/20 12:34:00 EDT, Height, 73.6, kg, 04/18/20 10:19:00 EDT, Dry Weight Start Date: 05/11/20 Status: Ordered Freestyle Lite Test Strips See Instructions, # 100 each, Refills 9, Tot. Refills 9, Maintenance, TEST BS TID DX E11.9 IDDMII, 12/11/22 13:36:00 EDT, Compound, 161, cm, 11/28/22 10:59:00 EDT, Height, 77.2, kg, 11/13/22 13:42:00EDT, Dry Weight Start Date: 12/11/22 Status: Ordered furosemide 40 mg oral tablet 1, tablet, By Mouth, 2 times a day, BUBBLE PACK, # 60 tablet, Refills 1, Tot. Refills 1, 11/28/22 11:43:00 EDT, Route to Pharmacy Electronically, [facility], 161, cm, 11/28/22 10:59:00 EDT, Height, 77.2, kg, 11/13/22 13:42:00 EDT, Dry Weight Start Date: 11/28/22 Status: Ordered Lidoderm 5% film 1 patch, Topically, Daily, # 30 patch, 11 Refills, Maintenance, 11/28/22 11:43:00 EDT, [facility], Partial fill upon patient request if the prescription is for a schedule II opioid drug., 1 patch Topically Daily,x30 days, 161, cm, 11/28/22... Start Date: 11/28/22 Stop Date: 11/23/23 Status: Ordered Lyrica 150 mg oral capsule 1 capsule = 150 mg, By Mouth, 2 times a day, BUBBLE PACK, # 60 capsule, 1 Refills, Maintenance, 11/28/22 11:43:00 EDT, Capsule, [facility], 161, cm, 11/28/22 10:59:00 EDT, Height, 77.2, kg, 11/13/22 13:42:00 EDT, Dry Weight Start Date: 11/28/22 Status: Ordered magnesium oxide 400 mg oral tablet 1 tablet, By Mouth, Daily, # 30 tablet, 1 Refills, Maintenance, 11/28/22 11:43:00 EDT, [facility], 161, cm, 11/28/22 10:59:00 EDT, Height, 77.2, kg, 11/13/22 13:42:00 EDT, Dry Weight Start Date: 11/28/22 Status: Ordered Melatonin 3 mg oral tablet 1 tablet, By Mouth, Daily at bedtime, PRN NEEDED, BUBBLE PACK, # 30 tablet, 1 Refills, Maintenance, 11/28/22 11:43:00 EDT, [facility], 1 tablet By Mouth Daily at bedtime,PRN: NEEDED,Instr:BUBBLE PACK, 161, cm, 11/28/22 10:59:00 EDT, H... Start Date: 11/28/22 Status: Ordered Miconazole 2% Topical Ointment 1 applicator, Topically, Daily, 0 Refills, Maintenance, Ointment Start Date: 03/27/21 Status: Ordered Milk of Magnesia Liquid 30 mL, By Mouth, Daily, PRN Constipation, 0 Refills, Maintenance, 08/17/20 11:31:00 EST, Suspension, Partial fill upon patient request if the prescription is for a schedule II opioid drug. Start Date: 08/17/20 Status: Ordered mirtazapine 30 mg oral tablet 1 tablet, By Mouth, Daily at bedtime, BUBBLE PACK, # 30 tablet, 1 Refills, Maintenance, 11/28/22 11:43:00 EDT, [facility], 161, cm, 11/28/22 10:59:00 EDT, Height, 77.2, kg, 11/13/22 13:42:00 EDT, Dry Weight Start Date: 11/28/22 Status: Ordered multivitamin Multiple Vitamins oral tablet 1 tablet, By Mouth, Daily, # 90 tablet, 3 Refills, Maintenance, 12/13/22 11:52:00 EDT, Tablet, [facility], Partial fill upon patient request if the prescription is for a schedule II opioid drug., 1 tablet By Mouth Daily, 161, cm, 11/28/22... Start Date: 12/13/22 Status: Ordered Pen Eakly, 31 G x 5 mm BD Ultra Fine III See Instructions, # 200 each, Refills 5, Tot. Refills 5, Maintenance, To inject insulin BID for DM II E11.9, 12/13/22 11:52:00 EDT, SHORT, Compound, 161, cm, 11/28/22 10:59:00 EDT, Height, 77.2, kg, 11/13/22 13:42:00 EDT, Dry Weight Start Date: 12/13/22 Status: Ordered semaglutide 3 mg oral tablet 1 tablet = 3 mg, By Mouth, Daily, take at least 30 minutes before first food, beverage, or other oral meds REPLACES VICTOZA, # 30 tablet, 0 Refills, Maintenance, 11/28/22 13:19:00 EDT, Tablet, [facility]/pharmacy #[id number], Partial fill upon patient request if t... Start Date: 11/28/22 Status: Ordered simvastatin 10 mg oral tablet 10 mg, 1, tablet, By Mouth, Daily at bedtime, BUBBLE PACK, # 30 tablet, Refills 1, Tot. Refills 1, Maintenance, 11/28/22 11:43:00 EDT, Route to Pharmacy Electronically, [facility], 161, cm, 11/28/22 10:59:00 EDT, Height, 77.2, kg, 11/13/22... Start Date: 11/28/22 Status: Ordered Skyrizi 150 mg/mL subcutaneous solution = 150 mg, Subcutaneous Infusion, 0 Refills, Maintenance, 11/01/21 15:02:00 EST, Partial fill upon patient request if the prescription is for a schedule II opioid drug. Start Date: 11/01/21 Status: Ordered spironolactone 100 mg oral tablet 1, tablet, By Mouth, Daily, BUBBLE PACK, # 30 tablet, Refills 1, Tot. Refills 1, 11/28/22 11:43:00 EDT, Route to Pharmacy Electronically, [facility], 161, cm, 11/28/22 10:59:00 EDT, Height, 77.2, kg, 11/13/22 13:42:00 EDT, Dry Weight Start Date: 11/28/22 Status: Ordered traMADol 50 mg oral tablet See Instructions, TAKE 1-2 TABLETS BY MOUTH EVERY 6 HOURS SCHEDULE FOLLOW VISIT, NEEDED FOR PAIN. BUBBLE PACK, # 240 tablet, 0 Refills, Maintenance, 11/28/22 11:50:00 EDT, [facility], 161, cm, 11/28/22 10:59:00 EDT, Height, 77.2, kg, 03... Start Date: 11/28/22 Status: Ordered traZODone 50 mg oral tablet 50 mg, 1, tablet, By Mouth, Daily at bedtime, BUBBLE PACK, # 30 tablet, Refills 1, Tot. Refills 1, Maintenance, 11/28/22 11:43:00 EDT, Route to Pharmacy Electronically, [facility], Partial fill upon patient request if the prescription is f... Start Date: 11/28/22 Status: Ordered Trelegy Ellipta inhalation powder 1 puffs, Inhalation, Daily, at the same time every day, # 3 each, 1 Refills, Maintenance, 11/28/22 11:48:00 EDT, Powder, [facility], Partial fill upon patient request if the prescription is for a schedule II opioid drug., 161, cm, 11/28/22... Start Date: 11/28/22 Status: Ordered Tresiba FlexTouch 200 units/mL subcutaneous solution See Instructions, INJECT SUBCUTANEOUSLY TAKING 55 UNITS DAILY, MAX DOSE 140 UNITS, # 9 Unknown, 5 Refills, Soft Stop, 12/11/22 13:38:00 EDT, [facility], 161, cm, 11/28/22 10:59:00 EDT, Height, 77.2, kg, 11/13/22 13:42:00 EDT, Dry Weight Start Date: 12/11/22 Status: Ordered Tylenol 325 mg oral tablet 650 mg, 2, tablet, By Mouth, Every 6 hours, Refills 0, Maintenance, 08/17/20 11:28:00 EST, Partial fill upon patient request if the prescription is for a schedule II opioid drug. Start Date: 08/17/20 Status: Ordered Vitamin D3 1000 intl units oral capsule 1 capsule = 1,000 International_Units, By Mouth, Daily, BUBBLE PACK, # 30 capsule, 1 Refills, Maintenance, 11/28/22 11:43:00 EDT, Capsule, [facility], resent from 08/14, 161, cm, 11/28/22 10:59:00 EDT, Height, 77.2, kg, 11/13/22 13:42:00 E... Start Date: 11/28/22 Status: Ordered Problem List Condition Confirmation Course Effective Dates Status H ealth Status Informant Unsteady gait Confirmed Active Adenomatous polyp of colon 1 Confirmed Active Carpal tunnel Confirmed 04/14/08 Active Recurrent cellulitis of lower leg Confirmed Active Cerebrovascular disease 2 Confirmed Active Cervical disc disease Confirmed Active Cervical radiculopathy at C6 Confirmed Active Chronic edema Confirmed 04/14/08 Active Chronic intractable pain Confirmed 10/12/09 Active Chronic kidney disease, stage 3b 3 Confirmed Active COPD (chronic obstructive pulmonary disease) Confirmed Active Cigarette smoker Confirmed Active Decreased ROM of neck Confirmed Active Dementia 4 Confirmed Active Diabetes mellitus - insulin 5 Confirmed 07/19/08 Active Diabetic neuropathy Confirmed Active Current use of insulin Confirmed Active Nephropathy, diabetic Confirmed Active Difficulty sleeping Confirmed Active Essential tremor Confirmed Active Generalized anxiety disorder Confirmed Active Gout Confirmed Active History of fracture of finger Confirmed Active H/O urinary tract infection with sepsis, proteus Confirmed 2009 Active History of nephrolithiasis Confirmed Active HLD (hyperlipidemia) Confirmed Active Hypertension Confirmed Active Mild cognitive impairment 6 Confirmed Active Lumbosacral spondylosis without myelopathy Confirmed Active OA (osteoarthritis), cervical Confirmed Active Osteoporosis Confirmed Active *FORMERLY [facility] [phone] 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 2Carotid ultrasound 2016 showing bilateral noncritical carotid stenosis. 50-70% bilaterally. 3Per chart review meeting GFR criteria 4Per MOCA done at [facility] 5[facility] Dr. Gume Mart 6MOCA 20 Social History Social History Type Response Smoking Status Former smoker, quit more than 30 days ago; Other: QUIYT COUPLE YEARS AGO; entered on: 11/13/22 Sex Patient Care team information Care Team Personnel Name: Carmita Enriquez RN Position: S RN Member Role: Primary Care Nurse Name: Mattie Morris RN Position: S RN Supluisa Member Role: Primary Care Nurse Name: Ranjeet Rushing MD Position: [facility] Primary Care Physician Member Role: PCP Address: Address: [address] [place] [phone]- [place] Name: Yoselyn Bradley RN Position: S RN Member Role: Primary Care Nurse Name: Chari Grey NP Position: [facility] PCO Associate Professional Member Role: [employer] Provider Address: Address: [address] [place] [phone]- [place] Name: Yariel Fuller RN Position: S RN Member Role: Primary Care Nurse Name: Julius Stringer RN Position: S RN Member Role: Primary Care Nurse Name: Shantell Carter Position: S RN Member Role: Primary Care Nurse Name: Michelle Morris RN Position: [facility] PCO RN Member Role: Primary Care Nurse Care Team Related Persons Name: ADRYAN GOVEA Address: home [address] [place] [address] Name: TAMARA GOVEA Address: home [address] [facility] [address] [place] [address]
--- OUTSIDE RECORDS SUMMARY | 2023-07-07 08:44 | XMS_ITS | Continuity of Care Document ---
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 Role Phone Ranjeet Rushing MD Primary Care Physician [phone] [facility]counter [facility] Date(s): 02/05/23 - 03/07/23 [facility] Adult [address] [place] [address]- Allergies, Adverse Reactions, Alerts Substance Reaction Severity Status Lac-Hydrin Active Ambien Active Benadryl Active Latex Active Immunizations Given and Recorded Vaccine Date Status Refusal Reason tetanus/diphtheria/pertussis, acel(Tdap) 10/21/22 Recorded tetanus/diphtheria/pertussis, acel(Tdap) 08/08/10 Recorded zoster vaccine, inactivated 08/28/22 Recorded zoster vaccine, [...] 06/21/15 Given pneumococcal 23-valent vaccine 10/05/13 Recorded Tet/Diphth/Acel, Pertussis (oldterm) 10 07/19/08 G iven Pneumococcal Poly (PPV23) (oldterm) 11 07/19/08 Gi sarah 1Result Comment: [05/28/2017] [facility]: [id number] 2Location History: [facility] 3Admin Note: VIS GIVEN-DATED 04/04/09 4Admin Note: vis given 5Admin Note: VIS given 6Admin Note: VIS-GIVEN 7Location [place] [facility] [place] 8Location History: [facility] 9Evelyne Comment: [10/17/2015] PER NICO AT [facility] 10Admin Note: VIS GIVEN 11Admin Note: VIS [...] hours, PRN as needed, # 1 each, 2 Refills, Maintenance, 01/20/23 22:52:00 EDT, Powder, [facility]/pharmacy #[id number], 2 puffs Inhalation Every 6 hours,PRN:as needed, 161, cm, 01/17/23 10:51:00 EDT, Height, 77.2, kg, 11/13/22 13:42:00... Start Date: 01/20/23 Status: Ordered alendronate 70 mg oral tablet 1 tablet, By Mouth, Every week, DIRECTED., # 4 tablet, 1 Refills, Maintenance, 02/03/23 23:55:00EDT, [facility], 161, cm, 02/03/23 9:50:00 EDT, Height, 77.2, kg, 11/13/22 13:42:00EDT, Dry Weight Start Date: 02/03/23 Status: Ordered allopurinol 300 mg oral tablet 1, tablet, By Mouth, Daily, # 28 tablet, Refills 0, Maintenance, 02/21/23 14:16:00 EDT, Route to Pharmacy Electronically, [facility], 161, cm, 02/20/23 15:50:00 EDT, Height, 77.2, kg, 11/13/22 13:42:00 EDT, Dry Weight Start Date: 02/21/23 Status: Ordered BD UF SHORT PEN NEEDLE [id number] BD UF SHORT PEN NEEDLE [id number], See Instructions, # 200 Unknown, 5 Refills, USE TO INJECT INSULIN TWICE A DAY, 160, cm, 11/27/21 14:08:00 EDT, Height, 74.8, kg, 11/01/21 15:05:00 EST, Dry Weight Start Date: 11/30/21 Status: Ordered colchicine 0.6 mg oral capsule 1 capsule = 0.6 mg, By Mouth, 2 times a day, # 20 capsule, 0 Refills, Maintenance, 12/31/22 10:10:00 EDT, Capsule, [facility]/pharmacy #[id number], Partial fill upon patient request if the prescription is for a schedule II opioid drug., 161, cm, 12/31/22 9:43:00 E... Start Date: 12/31/22 Stop Date: 01/10/23 Status: Ordered Fish Oil = 1,000 mg, By Mouth, Daily, 0 Refills, Maintenance, 11/17/15 13:08:57 EDT Start Date: 11/17/15 Status: Ordered FLUoxetine 20 mg oral capsule 3, capsule, By Mouth, Daily, # 84 capsule, Refills 0, Maintenance, 02/21/23 14:16:00 EDT, Route to Pharmacy Electronically, [facility], 161, cm, 02/20/23 15:50:00 EDT, Height, 77.2, kg,11/13/22 13:42:00 EDT, Dry Weight Start Date: 02/21/23 Status: Ordered Freestyle Lite Lancets See Instructions, # 100 each, Refills 11, Tot. Refills 11, Maintenance, TEST BS TID DX E11.9 IDDMII, 01/23/23 13:19:00 EDT, Compound, 161, cm, 01/23/23 12:40:00 EDT, Height, 77.2, kg, 11/13/22 13:42:00 EDT, Dry Weight Start Date: 01/23/23 Status: Ordered Freestyle Lite Monitor See Instructions, [...] 11, Maintenance, TEST BS TID DX E11.9 IDDMII, 01/23/23 13:19:00 EDT, Compound, 161, cm, 01/23/23 12:40:00 EDT, Height, 77.2, kg, 11/13/22 13:42:00 EDT, Dry Weight Start Date: 01/23/23 Status: Ordered furosemide 40 mg oral tablet 1, tablet, By Mouth, 2 times a day, # 56 tablet, Refills 0, Maintenance, 02/21/23 14:16:00 EDT, Route to Pharmacy Electronically, [facility], 161, cm, 02/20/23 15:50:00 EDT, Height, 77.2, kg, 11/13/22 13:42:00 EDT, Dry Weight Start Date: 02/21/23 Status: Ordered Lidoderm 5% film 1 patch, [...] a day, BUBBLE PACK, # 60 capsule, 0 Refills, Maintenance, 02/21/23 14:19:00 EDT, Capsule, [facility], 161, cm, 02/20/23 15:50:00 EDT, Height, 77.2, kg, 11/13/22 13:42:00 EDT, Dry Weight Start Date: 02/21/23 Status: Ordered magnesium oxide 400 mg oral tablet 1 tablet, By Mouth, Daily, # 28 tablet, 0 Refills, Maintenance, 02/21/23 14:16:00 EDT, [facility], 161, cm, 02/20/23 15:50:00 EDT, Height, 77.2, kg, 11/13/22 13:42:00 EDT, Dry Weight Start Date: 02/21/23 Status: Ordered Melatonin 3 mg oral tablet [...] at bedtime, BUBBLE PACK, # 30 tablet, 5 Refills, Maintenance, 02/05/23 9:50:00 EDT, [facility], 161, cm, 02/04/23 15:03:00 EDT, Height, 77.2, kg, 11/13/22 13:42:00 EDT, Dry Weight Start Date: 02/05/23 Status: Ordered multivitamin Multiple Vitamins oral tablet 1 tablet, By Mouth, Daily, # 90 tablet, 3 Refills, Maintenance, 12/13/22 11:52:00 EDT, Tablet, [facility], Partial fill upon patient request if the prescription is for a schedule II opioid drug., 1 tablet By Mouth Daily, 161, cm, 11/28/22... Start Date: 12/13/22 Status: Ordered Pen [place], 31 G x 5 mm BD Ultra Fine III See Instructions, # 200 each, Refills 5, Tot. Refills 5, Maintenance, To inject insulin BID for DM II E11.9, 01/07/23 13:37:00 EDT, SHORT, Compound, 161, cm, 12/31/22 9:43:00 EDT, Height, 77.2, kg, 11/13/22 13:42:00 EDT, Dry Weight Start Date: 01/07/23 Status: Ordered semaglutide 7 mg oral tablet 1 tablet = 7 mg, By Mouth, Daily, take at least 30 minutes before first food, beverage, or other oral meds BUBBLE PACK, # 30 tablet, 1 Refills, Maintenance, 02/20/23 16:07:00 EDT, [facility], Partial fill upon patient request if th... Start Date: 02/20/23 Status: Ordered simvastatin 10 mg oral tablet 1, tablet, By Mouth, Daily at bedtime, # 28 tablet, Refills 0, Maintenance, 02/21/23 14:16:00 EDT, Route to Pharmacy Electronically, [facility], 161, cm, 02/20/23 15:50:00 EDT, Height, 77.2, kg, 11/13/22 13:42:00 EDT, Dry Weight Start Date: 02/21/23 Status: Ordered Skyrizi 150 mg/mL subcutaneous solution = 150 mg, Subcutaneous Infusion, 0 Refills, Maintenance, 11/01/21 15:02:00 EST, Partial fill upon patient request if the prescription is for a schedule II opioid drug. Start Date: 11/01/21 Status: Ordered spironolactone 100 mg oral tablet 1, tablet, By Mouth, Daily, # 28 tablet, Refills 0, Maintenance, 02/21/23 14:16:00 EDT, Route to Pharmacy Electronically, [facility], 161, cm, 02/20/23 15:50:00 EDT, Height, 77.2, kg, 11/13/22 13:42:00 EDT, Dry Weight Start Date: 02/21/23 Status: Ordered traMADol 50 mg oral tablet See Instructions, TAKE 1-2 TABLETS BY MOUTH EVERY 6 HOURS SCHEDULE FOLLOW VISIT, NEEDED FOR PAIN. BUBBLE PACK, # 240 tablet, 0 Refills, Maintenance, 11/28/22 11:50:00 EDT, [facility], 161, cm, 11/28/22 10:59:00 EDT, Height, 77.2, kg, 03... Start Date: 11/28/22 Status: Ordered traZODone 50 mg oral tablet 1, tablet, By Mouth, Daily at bedtime, # 28 tablet, Refills 0, Maintenance, 02/21/23 14:16:00 EDT, Route to Pharmacy Electronically, [facility], 161, cm, 02/20/23 15:50:00 EDT, Height, 77.2, kg, 11/13/22 13:42:00 EDT, Dry Weight Start Date: 02/21/23 Status: Ordered Trelegy Ellipta inhalation powder 1 [...] drug. Start Date: 08/17/20 Status: Ordered Vitamin B-12 500 mcg oral tablet 1 tablet, By Mouth, Daily, # 28 tablet, 0 Refills, Maintenance, 02/21/23 14:16:00 EDT, [facility], 161, cm, 02/20/23 15:50:00 EDT, Height, 77.2, kg, 11/13/22 13:42:00 EDT, Dry Weight Start Date: 02/21/23 Status: Ordered VITAMIN D3 1,000 UNIT SOFTGEL VITAMIN D3 1,000 UNIT SOFTGEL, 1, capsule, By Mouth, Daily, # 28 capsule, 0 Refills, Maintenance, 02/21/23 14:16:00 EDT, 161, cm, 02/20/23 15:50:00 EDT, Height, 77.2, kg, 11/13/22 13:42:00 EDT, Dry Weight Start Date: 02/21/23 Status: Ordered VITAMIN D3 1,000 UNIT SOFTGEL VITAMIN D3 1,000 UNIT SOFTGEL, 1, capsule, By Mouth, Daily, # 28 capsule, 0 Refills, Maintenance, 02/04/23 16:42:00 EDT, 161, cm, 02/04/23 15:03:00 EDT, Height, 77.2, kg, 11/13/22 13:42:00 EDT, Dry Weight Start Date: 02/04/23 Status: Ordered Vitamin D3 1000 intl units oral capsule 1 capsule = 1,000 International_Units, By Mouth, Daily, BUBBLE PACK, # 30 capsule, 1 Refills, Maintenance, 11/28/22 11:43:00 EDT, Capsule, [facility], resent from 08/14, 161, cm, [...] Active Lumbosacral spondylosis without myelopathy Confirmed Active Myofascial pain Confirmed Active OA (osteoarthritis), cervical Confirmed Active Osteoporosis Confirmed Active *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 2Carotid ultrasound 2016 showing bilateral noncritical carotid stenosis. 50-70% bilaterally. 3Per chart review meeting GFR criteria 4[place] [facility] [place] and patient sees Dr. Gume Mart 6MOCA 20 Social History Social History Type Response Smoking Status Former smoker, quit more than 30 days ago; Other: QUIYT COUPLE YEARS AGO; entered on: 11/13/22 Sex Patient Care team information Care Team Personnel Name: Trinity Lloyd MD Position: [facility] Outreach Member Role: Lifetime Consulting Physician Name: Carmita Enriquez RN Position: [facility] RN Member Role: Primary Care Nurse Name: Mattie Morris RN Position: [facility] RN Supv Member Role: Primary Care Nurse Name: Ranjeet Rushing MD Position: [facility] Physician - Primary Care Member Role: PCP Address: Address: [address] [place] [address] - Name: Yoselyn Bradley RN Position: [facility] RN Member Role: Primary Care Nurse Name: Chari Grey NP Position: [facility] PCO Associate Professional Member Role: Lifetime Consulting Provider Address: Address: [address] [place] [address] - Name: Yariel Fuller RN Position: [facility] RN Member Role: Primary Care Nurse Name: Julius Stringer RN Position: [facility] RN Member Role: Primary Care Nurse Name: Shantell Carter Position: [facility] RN Member Role: Primary Care Nurse Name: Michelle Morris RN Position: [facility] AMB Nurse Member Role: Primary Care Nurse Care Team Related Persons Name: ADRYAN GOVEA Address: home [address] [place], [place] Name: TAMARA GOVEA Address: home [address] [facility] [address] [place] [address]
--- OUTSIDE RECORDS SUMMARY | 2023-07-07 08:44 | XMS_ITS | Continuity of Care Document ---
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: [id number] 2Location History: [facility] 3Admin Note: VIS GIVEN-DATED 04/04/09 4Admin Note: vis given 5Admin Note: VIS given 6Admin Note: VIS-GIVEN 7[place] [facility] [place] 8Location History: [facility] 9Evelyne Comment: [10/17/2015] PER NICO AT [facility] 10Admin Note: VIS GIVEN 11Admin Note: VIS [...] needed, # 1 each, 2 Refills, Maintenance, 04/01/23 15:47:00 EDT, Powder, [facility]/pharmacy #[id number], 2 puffs Inhalation Every 6 hours,PRN:as needed, 160, cm, 04/01/23 15:18:00 EDT, Height, 69.9, kg, 03/17/23 11:11:00... Start Date: 04/01/23 Status: Ordered alendronate 70 mg oral tablet 1 tablet, By Mouth, Every week, DIRECTED., # 4 tablet, 2 Refills, Maintenance, 03/20/23 19:29:00EDT, [facility], 160, cm, 03/17/23 11:11:00 EDT, Height, 69.9, kg, 03/17/23 11:11:00 EDT, Dry Weight Start Date: 03/20/23 Status: Ordered allopurinol 300 mg oral tablet 1, tablet, By Mouth, Daily, # 28 tablet, Refills 11, Maintenance, 04/18/23 10:34:00 EDT, Route to Pharmacy Electronically, [facility], 160, cm, 04/14/23 20:00:00 EDT, Height, 68.5, kg, 04/14/23 20:00:00 EDT, Dry Weight Start Date: 04/18/23 Status: Ordered Azithromycin 5 Day Dose Pack 250 mg oral tablet 1 pack/packet, By Mouth, Once, as directed on package labeling, # 6 tablet, 0 Refills, Soft Stop, 04/01/23 15:52:00 EDT, Tablet, [facility], Partial fill upon patient request if the prescription is for a schedule II opioid drug., 160, cm,... Start Date: 04/01/23 Status: Ordered BD UF SHORT PEN NEEDLE [id number] BD UF SHORT PEN NEEDLE [id number], See Instructions, # 200 Unknown, 5 Refills, USE TO INJECT INSULIN TWICE A DAY, 160, cm, 11/27/21 14:08:00 EDT, Height, 74.8, kg, 11/01/21 15:05:00 EST, Dry Weight Start Date: 11/30/21 Status: Ordered colchicine 0.6 mg oral capsule 1 capsule = 0.6 mg, By Mouth, 2 times a day, # 20 capsule, 0 Refills, Maintenance, 12/31/22 10:10:00 EDT, Capsule, [facility]/pharmacy #[id number], Partial fill upon patient request if the prescription is for a schedule II opioid drug., 161, cm, 12/31/22 9:43:00 E... Start Date: 12/31/22 Stop Date: 01/10/23 Status: Ordered Fish Oil = 1,000 mg, By Mouth, Daily, 0 Refills, Maintenance, 11/17/15 13:08:57 EDT Start Date: 11/17/15 Status: Ordered FLUoxetine 20 mg oral capsule 3, capsule, By Mouth, Daily, # 84 capsule, Refills 11, Maintenance, 04/18/23 10:33:00 EDT, Route toPharmacy Electronically, [facility], 160, cm, 04/14/23 20:00:00 EDT, Height, 68.5, kg, 04/14/23 20:00:00 EDT, Dry Weight Start Date: 04/18/23 Status: Ordered Freestyle Lite Lancets See Instructions, [...] times a day, # 56 tablet, Refills 11, Maintenance, 04/18/23 10:34:00 EDT, Route to Pharmacy Electronically, [facility], 160, cm, 04/14/23 20:00:00 EDT, Height, 68.5, kg, 04/14/23 20:00:00 EDT, Dry Weight Start Date: 04/18/23 Status: Ordered Lidoderm 5% film 1 patch, [...] a day, BUBBLE PACK, # 60 capsule, 5 Refills, Maintenance, 04/18/23 10:35:00 EDT, Capsule, [facility], 160, cm, 04/14/23 20:00:00 EDT, Height, 68.5, kg, 04/14/23 20:00:00 EDT, Dry Weight Start Date: 04/18/23 Status: Ordered magnesium oxide 400 mg oral tablet 1 tablet, By Mouth, Daily, # 28 tablet, 11 Refills, Maintenance, 04/18/23 10:34:00 EDT, [facility], [facility], cm, 04/14/23 20:00:00 EDT, Height, 68.5, kg, 04/14/23 20:00:00 EDT, Dry Weight Start Date: 04/18/23 Status: Ordered Melatonin 3 mg oral tablet [...] 11/28/22... Start Date: 12/13/22 Status: Ordered Pen [place], 31 G x 5 mm BD Ultra Fine III See Instructions, # 200 each, Refills 5, Tot. Refills 5, Maintenance, To inject insulin BID for DM II E11.9, 01/07/23 13:37:00 EDT, SHORT, Compound, 161, cm, 12/31/22 9:43:00 EDT, Height, 77.2, kg, 11/13/22 13:42:00 EDT, Dry Weight Start Date: 01/07/23 Status: Ordered Rybelsus 14 mg oral tablet See Instructions, TAKE 1 TABLET BY MOUTH DAILY *TAKE AT LEAST 30 MINUTES BEFORE FIRST FOOD, BEVERAGE, OR OTHER MEALS.* *ORIGINAL CONTAINER*, # 30 tablet, 2 Refills, Maintenance, 05/16/23 14:49:00 EDT, [facility], 160, cm, 04/14/23 20:00:... Start Date: 05/16/23 Status: Ordered simvastatin 10 mg oral tablet 1, tablet, By Mouth, Daily at bedtime, # 28 tablet, Refills 11, Maintenance, 04/18/23 10:34:00 EDT,[facility] 160, cm, 04/14/23 20:00:00 EDT, Height,68.5, kg, 04/14/23 20:00:00 EDT, Dry Weight Start Date: 04/18/23 Status: Ordered Skyrizi 150 mg/mL subcutaneous solution = 150 mg, Subcutaneous Infusion, 0 Refills, Maintenance, 11/01/21 15:02:00 EST, Partial fill upon patient request if the prescription is for a schedule II opioid drug. Start Date: 11/01/21 Status: Ordered spironolactone 100 mg oral tablet 1, tablet, By Mouth, Daily, # 28 tablet, Refills 11, Maintenance, 04/18/23 10:33:00 EDT, [facility], 160, cm, 04/14/23 20:00:00 EDT, Height, 68.5, kg, 04/14/23 20:00:00 EDT, Dry Weight Start Date: 04/18/23 Status: Ordered traMADol 50 mg oral tablet [...] Daily at bedtime, # 28 tablet, Refills 11, Maintenance, 04/18/23 10:33:00 EDT,[facility] to Pharm[facility] Electronically[facility], 160, cm, 04/14/23 20:00:00 EDT, Height,68.5, kg, 04/14/23 20:00:00 EDT, Dry Weight Start Date: 04/18/23 Status: Ordered Trelegy Ellipta inhalation powder 1 puffs, Inhalation, Daily, at the same time every day, # 3 each, 1 Refills, Maintenance, 04/01/23 15:47:00 EDT, Powder, [facility]/pharmacy #[id number], Partial fill upon patient request if the prescription is for a schedule II opioid drug., 160, cm, 04/01/23 15:... Start Date: 04/01/23 Status: Ordered Tresiba FlexTouch 200 units/mL subcutaneous [...] tablet, By Mouth, Daily, # 28 tablet, 11 Refills, Maintenance, 04/18/23 10:34:00 EDT, [facility], 160, cm, 04/14/23 20:00:00 EDT, Height, 68.5, kg, 04/14/23 20:00:00 EDT, Dry Weight Start Date: 04/18/23 Status: Ordered VITAMIN D3 1,000 UNIT SOFTGEL VITAMIN D3 1,000 UNIT SOFTGEL, 1, capsule, By Mouth, Daily, # 28 capsule, 11 Refills, Maintenance, 04/18/23 10:33:00 EDT, 160, cm, 04/14/23 20:00:00 EDT, Height, 68.5, kg, 04/14/23 20:00:00 EDT, Dry Weight Start Date: 04/18/23 Status: Ordered VITAMIN D3 1,000 UNIT SOFTGEL [...] Daily, # 28 capsule, 0 Refills, Maintenance, 03/21/23 16:45:00 EDT, 160, cm, 03/17/23 11:11:00 EDT, Height, 69.9, kg, 03/17/23 11:11:00 EDT, Dry Weight Start Date: 03/21/23 Status: Ordered VITAMIN D3 1,000 UNIT SOFTGEL [...] (osteoarthritis), cervical Confirmed Active Osteoporosis Confirmed Active *[facility] [phone] 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 2Carotid ultrasound 2016 showing bilateral noncritical carotid stenosis. 50-70% bilaterally. 3Per chart review meeting GFR criteria 4[place] [facility] [place] Dr. Gume Mart 6MOCA 20 Social History Social History Type Response Smoking Status Former smoker, quit more than 30 days ago; Other: QUIYT COUPLE YEARS AGO; entered on: 11/13/22 Sex Patient Care team information Care Team Personnel Name: Trinity Lloyd MD Position: [facility] Outreach Member Role: Lifetime Consulting Physician Name: Carmita Enriquez RN Position: [facility] RN Member Role: Primary Care Nurse Name: Mattie Morris RN Position: [facility] RN Supluisa Member Role: Primary Care Nurse Name: Ranjeet Rushing MD Position: [facility] Physician - Primary Care Member Role: PCP Address: Address: [address] [place] [phone] [place] Name: Yoselyn Bradley RN Position: [facility] RN Member Role: Primary Care Nurse Name: Chari Grey NP Position: [facility] PCO Associate Professional Member Role: Lifetime Consulting Provider Address: Address: [address] [place] [phone]- [place] Name: Yariel Fuller RN Position: [facility] RN Member Role: Primary Care Nurse Name: Julius Stringer RN Position: [facility] RN Member Role: Primary Care Nurse Name: Shantell Carter Position: [facility] RN Member Role: Primary Care Nurse Name: Libia Rivera RN Position: [facility] RN Member Role: Primary Care Nurse Name: Michelle Morris RN Position: [facility] AMB Nurse Member Role: Primary Care Nurse Care Team Related Persons Name: JEFERSON ADRYAN Address: [place] [address] [address] Name: TAMARA GOVEA Address: home [address] [address]
--- OUTSIDE RECORDS SUMMARY | 2023-07-07 08:44 | XMS_ITS | Continuity of Care Document ---
Author Name Unknown Organization [facility] Leif lt Address [address] [place] [address]- Care Team Providers Care Academic Advisement Director Name Role Phone Not on Staff, PCP Primary Care Physician Unavail able [facility]): 05[facility]22/23 - 06/21/23 [facility] Adult [address] [place] [address]- Allergies, Adverse Reactions, Alerts Substance Reaction Severity [...] 11 07/19/08 Gi sarah 1Result Comment: [05/28/2017] [facility]: [id number] 2Location History: [facility] 3Admin Note: VIS GIVEN-DATED 04/04/09 4Admin Note: vis given 5Admin Note: VIS given 6Admin Note: VIS-GIVEN 7Location History: [facility] 8Location History: [facility] DR Seaman Comment: [10/17/2015] PER NICO AT [facility] 10Admin Note: VIS GIVEN 11Admin Note: VIS [...] 2 Refills, Maintenance, 04/01/23 15:47:00 EDT, Powder, [facility]/pharmacy #[id number], 2 puffs Inhalation Every [...] Status: Ordered BD UF SHORT PEN NEEDLE [id number] BD UF SHORT PEN NEEDLE [id number], See Instructions, # 200 Unknown, 5 Refills, USE TO INJECT INSULIN TWICE A DAY, 160, cm, 11/27/21 14:08:00 EDT, Height, 74.8, kg, 11/01/21 15:05:00 EST, Dry Weight Start Date: 11/30/21 Status: Ordered colchicine 0.6 mg oral capsule 1 capsule = 0.6 mg, By Mouth, 2 times a day, # 20 capsule, 0 Refills, Maintenance, 12/31/22 10:10:00 EDT, Capsule, [facility]/pharmacy #[id number], Partial fill upon patient request if the [...] 10:34:00 EDT, [facility] to [facility], [facility], 160, cm, 04/14/23 20:00:00 EDT, Height, [...] Refills, Maintenance, 04/18/23 10:35:00 EDT, Capsule, [facility], 160, cm, 04/14/23 20:00:00 EDT, Height, 68.5, kg, 04/14/23 20:00:00 EDT, Dry Weight Start Date: 04/18/23 Status: Ordered magnesium oxide 400 mg oral tablet 1 tablet, By Mouth, Daily, # 28 tablet, 11 Refills, Maintenance, 04/18/23 10:34:00 EDT, [facility], 160, cm, 04/14/23 20:00:00 EDT, Height, [...] 11/28/22... Start Date: 12/13/22 Status: Ordered Pen [place], 31 G x 5 mm BD Ultra [...] 04/18/23 10:34:00 EDT,Route to Pharmacy Electronically, [facility], 160, cm, 04/14/23 20:00:00 EDT, Height,68.5, kg, [...] 10:33:00 EDT, [facility] to Pharm[facility] Electronically, [facility], 160, cm, 04/14/23 20:00:00 EDT, Height, [...] 04/18/23 10:33:00 EDT,Route to Pharmacy Electronically, [facility], 160, cm, 04/14/23 20:00:00 EDT, Height,68.5, kg, 04/14/23 20:00:00 EDT, Dry Weight Start Date: 04/18/23 Status: Ordered Trelegy Ellipta inhalation powder 1 puffs, Inhalation, Daily, at the same time every day, # 3 each, 1 Refills, Maintenance, 04/01/23 15:47:00 EDT, Powder, 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 2Carotid ultrasound 2016 showing bilateral noncritical carotid stenosis. 50-70% bilaterally. 3Per chart review meeting GFR criteria 4Per MOCA done at [facility] 5Patient's screen writer is [facility] Dr. Gume Mart 6MOCA 20 Social History Social History Type Response Smoking Status Former smoker, quit more than 30 days ago; Other: QUIYT COUPLE YEARS AGO; entered on: 11/13/22 Sex Patient Care team information Care Team Personnel Name: Trinity Lloyd MD Position: [facility] Outreach Member Role: Lifetime Consulting Physician Name: Carmita Enriquez RN Position: [facility] RN Member Role: Primary Care Nurse Name: Mattie Morris RN Position: [facility] RN Supv Member Role: Primary Care Nurse Name: Yoselyn Bradley RN Position: [facility] RN Member Role: Primary Care Nurse Name: Chari Grey NP Position: [facility] PCO Associate Professional Member Role: Lifetime Consulting Provider Address: Address: [address] [place] [address]- Name: Not on Staff, PCP Position: [facility] Physician (General Medicine) Member Role: PCP Name: Yariel Fuller RN Position: [facility] RN Member Role: Primary Care Nurse Name: Julius Stringer RN Position: [facility] RN Member Role: Primary Care Nurse Name: Shantell Carter Position: [facility] RN Member Role: Primary Care Nurse Name: Alexandra JC, Michelle Stout Position: [facility] Nurse Member Role: Primary Care Nurse Care Team Related Persons Name: ADRYAN GOVEA Address: [place] [address] [address] Name: TAMARA GOVEA Address: [address] [place] [address]
--- NOTE | 2023-07-07 08:45 | PC.NURSE ---
pt to xray
--- OUTSIDE RECORDS SUMMARY | 2023-07-07 08:45 | XMS_ITS | Continuity of Care Document ---
Author Name Unknown Organization [facility] Leif [place] Address [address] [place] [address]- Care Team Providers Care Director Digital Strategy Name Role Phone Ranjeet Rushing MD Primary Care Physician [facility] 04/23/23 - 05/23/23 [facility] Adult [address] [place] [address]- Allergies, Adverse Reactions, Alerts Substance Reaction Severity [...] 07/19/08 Gi sarah 1Result Comment: [05/28/2017] HD [facility]: [id number] 2Location History: [facility] 3Admin Note: VIS GIVEN-DATED 04/04/09 4Admin Note: vis given 5Admin Note: VIS given 6Admin Note: VIS-GIVEN 7Location History: [facility] 8Location History: [facility] 9[place] Comment: [10/17/2015] PER NICO AT [facility] 10Admin Note: VIS GIVEN 11Admin Note: [...] 2 Refills, Maintenance, 04/01/23 15:47:00 EDT, Powder, [facility]/pharmacy #[id number], 2 puffs Inhalation [...] 10:34:00 EDT, Route to Pharmacy Electronically, [facility], 160, cm, 04/14/23 20:00:00 EDT, Height, [...] Status: Ordered BD UF SHORT PEN NEEDLE [id number] BD UF SHORT PEN NEEDLE [id number], See Instructions, # 200 Unknown, 5 Refills, USE TO INJECT INSULIN TWICE A DAY, 160, cm, 11/27/21 14:08:00 EDT, Height, 74.8, kg, 11/01/21 15:05:00 EST, Dry Weight Start Date: 11/30/21 Status: Ordered colchicine 0.6 mg oral capsule 1 capsule = 0.6 mg, By Mouth, 2 times a day, # 20 capsule, 0 Refills, Maintenance, 12/31/22 10:10:00 EDT, Capsule, [facility]/pharmacy #[id number], Partial fill upon patient request if the [...] 10:34:00 EDT, Route to Pharmacy Electronically, [facility], 160, cm, 04/14/23 20:00:00 EDT, Height, 68.5, [...] 11 Refills, Maintenance, 04/18/23 10:34:00 EDT, [facility], 160, cm, 04/14/23 20:00:00 EDT, Height, 68.5, [...] 11/28/22... Start Date: 12/13/22 Status: Ordered Pen [place], 31 G x 5 mm BD Ultra [...] 04/18/23 10:34:00 EDT,[facility], [facility], cm, 04/14/23 20:00:00 EDT, Height,68.5, [...] 10:33:00 EDT, [facility], 160, cm, 04/14/23 20:00:00 EDT, Height, 68.5, [...] 04/18/23 10:33:00 EDT,[facility]ically, [facility], 160, cm, 04/14/23 20:00:00 EDT, Height,68.5, kg, 04/14/23 20:00:00 EDT, Dry Weight Start Date: 04/18/23 Status: Ordered Trelegy Ellipta inhalation powder 1 puffs, Inhalation, Daily, at the same time every day, # 3 each, 1 Refills, Maintenance, 04/01/23 15:47:00 EDT, Powder, [facility]/pharmacy #[id number], Partial fill upon [...] 11 Refills, Maintenance, 04/18/23 10:34:00 EDT, [facility], 160, cm, 04/14/23 20:00:00 EDT, Height, [...] (osteoarthritis), cervical Confirmed Active Osteoporosis Confirmed Active *[facility] [phone] 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 2Carotid ultrasound 2016 showing bilateral noncritical carotid stenosis. 50-70% bilaterally. 3Per chart review meeting GFR criteria 4Per MOCA done at [facility] 5Patient's corporate development associate is [facility] Dr. Gume Mart 6MOCA 20 Social History Social History Type Response Smoking Status Former smoker, quit more than 30 days ago; Other: QUIYT COUPLE YEARS AGO; entered on: 11/13/22 Sex Patient Care team information Care Team Personnel Name: Trinity Lloyd MD Position: [facility] Outreach Member Role: Lifetime Consulting Physician Name: Carmita Enriquez RN Position: [facility] RN Member Role: Primary Care Nurse Name: Mattie Morris RN Position: [facility] RN Supluisa Member Role: Primary Care Nurse Name: Ranjeet Rushing MD Position: [facility] Physician - Primary Care Member Role: PCP Address: Address: [address] [place] [address]- [place] Name: Yoselyn Bradley RN Position: [facility] RN Member Role: Primary Care Nurse Name: Chari Grey NP Position: [facility] PCO Associate Professional Member Role: Lifetime Consulting Provider Address: Address: [address] [place] [phone]- [place] Name: Yariel Fuller RN Position: [facility] RN Member Role: Primary Care Nurse Name: Julius Stringer RN Position: [facility] RN Member Role: Primary Care Nurse Name: Shantell Carter Position: [facility] RN Member Role: Primary Care Nurse Name: Libia Rivera RN Position: [facility] RN Member Role: Primary Care Nurse Name: Michelle Morris RN Position: [facility] AMB Nurse Member Role: Primary Care Nurse Care Team Related Persons Name: JEFERSON ADRYAN Address: [place] [address] [address] Name: TAMARA GOVEA Address: [address] [address]
--- OUTSIDE RECORDS SUMMARY | 2023-07-07 08:45 | XMS_ITS | Continuity of Care Document ---
Author Name Unknown Organization [facility] [place] Leif lt Address [address] [place] [address]- Care Team Providers Care Inspector And Tester Name Role Phone Kristan SUTTON, Ranjeet Beatty Primary Care Physician [phone] [facility]): 12/31/22 - 01/07/23 [facility] Adult [address] [place] [address]- Attending Physician: Chari Grey NP Allergies, Adverse [...] 07/19/08 Gi sarah 1Result Comment: [05/28/2017] HD [facility]: [id number] 2Location History: [facility] 3Admin Note: VIS GIVEN-DATED 04/04/09 4Admin Note: vis given 5Admin Note: VIS given 6Admin Note: VIS-GIVEN 7Location History: [facility] 8Location History: [facility] 9Evelyne Comment: [10/17/2015] PER NICO AT [facility] 10Admin Note: VIS GIVEN [...] 11 Refills, Maintenance, 05/07/22 16:00:00 EDT, Powder, [facility]/pharmacy #[id number], [...] Status: Ordered BD UF SHORT PEN NEEDLE [id number] BD UF SHORT PEN NEEDLE [id number], See Instructions, # 200 Unknown, 5 Refills, USE TO INJECT INSULIN TWICE A DAY, 160, cm, 11/27/21 14:08:00 EDT, Height, 74.8, kg, 11/01/21 15:05:00 EST, Dry Weight Start Date: 11/30/21 Status: Ordered colchicine 0.6 mg oral capsule 1 capsule = 0.6 mg, By Mouth, 2 times a day, # 20 capsule, 0 Refills, Maintenance, 12/31/22 10:10:00 EDT, Capsule, [facility]/pharmacy #[id number], Partial fill upon patient request if the prescription is for a schedule II opioid drug., 161, cm, 12/31/22 9:43:00 E... Start Date: 12/31/22 Stop Date: 01/10/23 Status: Ordered cyanocobalamin 500 mcg oral tablet [...] 11/28/22... Start Date: 12/13/22 Status: Ordered Pen [place], 31 G x 5 mm BD Ultra Fine III See Instructions, # 200 each, Refills 5, Tot. Refills 5, Maintenance, To inject insulin BID for DM II E11.9, 01/07/23 13:37:00 EDT, SHORT, Compound, 161, cm, 12/31/22 9:43:00 EDT, Height, 77.2, kg, 11/13/22 13:42:00 EDT, Dry Weight Start Date: 01/07/23 Status: Ordered semaglutide 3 mg oral tablet 1 tablet = 3 mg, By Mouth, Daily, take at least 30 minutes before first food, beverage, or other oral meds REPLACES VICTOZA, # 30 tablet, 0 Refills, Maintenance, 11/28/22 13:19:00 EDT, Tablet, [facility]/pharmacy #[id number], Partial fill upon patient request if t... 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 2Carotid ultrasound 2015 showing bilateral noncritical carotid stenosis. 50-70% bilaterally. 3Per chart review meeting GFR criteria 4Per MOCA done at [facility] 5Patient's electrical timing device calibrator is [facility] Dr. Gume Mart 6MOCA 20 Vital Signs Most recent to oldest [Reference Range]: 1 Height 161 cm (12/31/22 9:43 AM) Weight 69.6 kg (12/31/22 9:43 AM) Oxygen Saturation [94-100 %] 97 % (12/31/22 9:43 AM) Pulse Rate [55-90 bpm] 72 bpm (12/31/22 9:43 AM) Body Mass Index [18.5-24.99 kg/m2] 26.85 kg/m2 *H* (12/31/22 9:43 AM) Blood Pressure [90-138/55-84 mm Hg] 136/ 76mm Hg (12/31/22 9:43 AM) Respiratory Rate [16-30 br/min] 16 br/mi n (12/31/22 9:43 AM) Temperature [96.8-100.4 DegF] 97.6 DegF (12/31/22 9:43 AM) Mode of Delivery (Oxygen) Room air (12/31/22 9:43 AM) Blood pressure sites Arm, left (12/31/22 9:43 AM) Temperature Route Oral (12/31/22 9:43 AM) Weight Obtained Via Standing scale (12/31/22 9:43 AM) Social History Social History Type Response Smoking Status Former smoker, quit more than 30 days ago; Other: QUIYT COUPLE YEARS AGO; entered on: 11/13/22 Sex Note * Valerie Giordano: PERFORM, SIGN, VERIFY Event Display: Patient Education/Instruction Authored Date: [id number] [facility] *BMP So [place] Clinical Summary Name RAFAEL GOVEA Age 72 Years 1950 PCP Kristan SUTTON, Ranjeet Beatty PCP Visit Date 12/31/2022 09:38:00 Additional Instructions: Scheduled Appointments?? Future Appointments ?*BMP??So??[place] ?[address] ?Phone:??--?Fax:??-- ?Appt. Date:??01/17/2023?10:50 AM ?Scheduled Provider:??Matilda LOZADA , Chari Santos ?*Pain??Management ?[address]??[place],??[place],??[address] ?Phone:??[phone]?Fax:??-- ?Appt. Date:??02/03/2023?10:00 AM ?Scheduled Provider:??Jessi SUTTON, Ronnie Ramirez Follow-Up Instructions ?? Diagnosis Pain in left foot Medications: Please continue your medications until treatment is completed or stopped by your provider. Discuss any questions related to medications with your provider. New Medications [id number], [address] [place] [phone], [phone] Colchicine (colchicine 0.6 mg oral capsule) 1 capsule Oral twice a day for 10 Days. Refills: 0. Next Dose: Medications to Continue with No Changes These medications were not printed or sent to your pharmacy Acetaminophen (Tylenol 325 mg oral tablet) 2 tab(s) Oral every 6 hours. Next Dose: Albuterol (albuterol 90 mcg/inh inhalation powder) 2 puff(s) Inhalation every 6 hours as needed. Refills: 11. Next Dose: Alendronate (alendronate 70 mg oral tablet) 1 tab(s) Oral every week. BUBBLE PACK. Refills: 1. Next Dose: Allopurinol (allopurinol 300 mg oral tablet) 1 tab(s) Oral Daily. Refills: 1. Next Dose: Cholecalciferol (Vitamin D3 1000 intl units oral capsule) 1 capsule Oral Daily. BUBBLE PACK. Refills: 1. Next Dose: Cyanocobalamin (cyanocobalamin 500 mcg oral tablet) 1 tab(s) Oral Daily. BUBBLE PACK. Refills: 1. Next Dose: Durable Medical Equipment (12 inch Grab Bars) Grab bars : Length 12inches Use as directed DX Unsteady Gait ICD10 R26.81 HT: 5'3 Weight 162lbs Length of need Lifetime. Refills: 0. Next Dose: Durable Medical Equipment (Freestyle Lite Lancets) TEST BS TID DX E11.9 IDDMII. Refills: 5. Next Dose: Durable Medical Equipment (Freestyle Lite Monitor) TEST BS TID DX E11.9 IDDMII. Refills: 0. Next Dose: Durable Medical Equipment (Freestyle Lite Test Strips) TEST BS TID DX E11.9 IDDMII. Refills: 9. Next Dose: Durable Medical Equipment (Pen [place], 31 G x 5 mm [employer] Ultra Fine III) To inject insulin BID for DMII E11.9. Refills: 5. Next Dose: Fluoxetine (FLUoxetine 20 mg oral capsule) 3 capsule Oral Daily. BUBBLE PACK. Refills: 1. Next Dose: fluticasone/umeclidinium/vilanterol (Trelegy Ellipta inhalation powder) 1 puff(s) Inhalation Daily.at the same time every day. Refills: 1. Next Dose: Furosemide (furosemide 40 mg oral tablet) 1 tab(s) Oral twice a day. BUBBLE PACK. Refills: 1. Next Dose: insulin degludec (Tresiba FlexTouch 200 units/mL subcutaneous solution) INJECT SUBCUTANEOUSLY TAKING 55 UNITS DAILY, MAX DOSE 140 UNITS. Refills: 5. Next Dose: Lidocaine Topical (Lidoderm 5% film) 1 patch Topically Daily for 30 Days. Refills: 11. Next Dose: Magnesium Oxide (magnesium oxide 400 mg oral tablet) 1 tab(s) Oral Daily. Refills: 1. Next Dose: Melatonin (Melatonin 3 mg oral tablet) 1 tab(s) Oral Daily at Bedtime as needed. BUBBLE PACK. Refills: 1. Next Dose: Miconazole Topical (Miconazole 2% Topical Ointment) 1 applicator Topically Daily. Next Dose: Milk of Magnesia (Milk of Magnesia Liquid) 30 Milliliter Oral Daily as needed Constipation. Next Dose: Mirtazapine (mirtazapine 30 mg oral tablet) 1 tab(s) Oral Daily at Bedtime. BUBBLE PACK. Refills: 1. Next Dose: Miscellaneous Rx (BD UF SHORT PEN NEEDLE [id number]) USE TO INJECT INSULIN TWICE A DAY. Refills: 5. Next Dose: Multivitamin (multivitamin Multiple Vitamins oral tablet) 1 tab(s) Oral Daily. Refills: 3. Next Dose: Ventura-3 Polyunsaturated Fatty Acids (Fish Oil) 1,000 Milligram Oral Daily. Next Dose: Pregabalin (Lyrica 150 mg oral capsule) 1 capsule Oral twice a day. BUBBLE PACK. Refills: 1. Next Dose: risankizumab (Skyrizi 150 mg/mL subcutaneous solution) 150 Milligram Subcutaneous Infusion. Next Dose: semaglutide (semaglutide 3 mg oral tablet) 1 tab(s) Oral Daily. take at least 30 minutes before first food, beverage, or other oral meds REPLACES VICTOZA. Refills: 0. Next Dose: Simvastatin (simvastatin 10 mg oral tablet) 1 tab(s) Oral Daily at Bedtime. BUBBLE PACK. Refills: 1. Next Dose: Spironolactone (spironolactone 100 mg oral tablet) 1 tab(s) Oral Daily. BUBBLE PACK. Refills: 1. Next Dose: Tramadol (traMADol 50 mg oral tablet) TAKE 1-2 TABLETS BY MOUTH EVERY 6 HOURS SCHEDULE FOLLOW VISIT, NEEDED FOR PAIN. BUBBLE PACK. Refills: 0. Next Dose: Trazodone (traZODone 50 mg oral tablet) 1 tab(s) Oral Daily at Bedtime. BUBBLE PACK. Refills: 1. Next Dose: Allergy Info:?? Latex; Benadryl; Ambien; Lac-Hydrin Medications Given This Visit Future Orders ?Foot Min 3 Views Left? Order Date:12/31/22?- Complete on or after?12/31/22 Vital Signs Height 161 cm Weight 69.6 kg BMI 26.85 kg/m2 Blood Pressure 136 mm Hg/76 mm Hg Temperature 97.6 DegF Pulse Rate 72 bpm Respiratory Rate 16 br/min 02 Sat Mode of Delivery 97 %/Room air You can now view a summary of your hospital visit from the comfort of your home through a free online portal called [employer]. [employer] is a website that allows you to securely view your medical information including discharge summary, medications and follow-up visits. ??You can alsosend a secure electronic message to your doctor???s office to request appointments, renew medications or just ask a question. You can enroll at [email or web address] or register during your next office visit. Disclaimer:?? The information provided is of a general nature and is intended to be used in conjunction with the recommendations and advice of your health care practitioner. ??Every effort has been made to ensure that the information provided is accurate and complete at the time it is provided to you however, as your needs change, or, as new ??information becomes available, different or additional instructions may be required. If you have questions, please consult with your primary care provider or pharmacist, as appropriate. ??This information is not intended to serve as substitution for assessment and evaluation by a qualified health care provider. If you do not have a primary care provider, you may find a [facility] provider by calling [facility] at [phone]. For information about the plan of care including goals and instructions for your diagnosis, please see the patient education orders section of this document. Patient Education Materials?? The content of this educational material or handout may have been modified, supplemented, or adapted from its original content and format to support your individualized medical care. Patient Care team information Care Team Personnel Name: Carmita Enriquez RN Position: [facility] RN Member Role: Primary Care Nurse Name: Mattie Morris RN Position: [facility] RN Mya Member Role: Primary Care Nurse Name: Ranjeet Rushing MD Position: [facility] Primary Care Physician Member Role: PCP Address: Address: [address] [place] [address] Name: Yoselyn Bradley RN Position: [facility] RN Member Role: Primary Care Nurse Name: Chari Grey NP Position: [facility] PCO Associate Professional Member Role: Lifetime Consulting Provider Address: Address: [address] [place] [address]- Name: Yariel Fuller RN Position: S RN Member Role: Primary Care Nurse Name: Julius Stringer RN Position: S RN Member Role: Primary Care Nurse Name: Shantell Carter Position: S RN Member Role: Primary Care Nurse Name: Michelle Morris RN Position: [facility] PCO RN Member Role: Primary Care Nurse Care Team Related Persons Name: ADRYAN GOVEA Address: [address] [place] [address] Name: TAMARA GOVEA Address: [address] [place] [address]
--- OUTSIDE RECORDS SUMMARY | 2023-07-07 08:46 | XMS_ITS | Continuity of Care Document ---
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 Automatic Name Role Phone Ranjeet Rushing MD Primary Care Physician [phone] Encounter [facility] Date(s): 12/27/22 - 01/26/23 [facility] Adult [address] [place] [address]- Allergies, Adverse Reactions, Alerts Substance Reaction Severity [...] 07/19/08 Gi sarah 1Result Comment: [05/28/2017] HD [facility]: [id number] 2Location History: [facility] 3Admin Note: VIS GIVEN-DATED 04/04/09 4Admin Note: vis given 5Admin Note: VIS given 6Admin Note: VIS-GIVEN 7Location History: [facility] 8Location History: [facility] 9Resesperanza Comment: [10/17/2015] PER NICO AT [facility] 10Admin Note: VIS GIVEN 11Admin Note: [...] 2 Refills, Maintenance, 01/20/23 22:52:00 EDT, Powder, [facility]/pharmacy #[id number], 2 puffs Inhalation [...] Status: Ordered BD UF SHORT PEN NEEDLE [id number] BD UF SHORT PEN NEEDLE [id number], See Instructions, # 200 Unknown, 5 Refills, USE TO INJECT INSULIN TWICE A DAY, 160, cm, 11/27/21 14:08:00 EDT, Height, 74.8, kg, 11/01/21 15:05:00 EST, Dry Weight Start Date: 11/30/21 Status: Ordered colchicine 0.6 mg oral capsule 1 capsule = 0.6 mg, By Mouth, 2 times a day, # 20 capsule, 0 Refills, Maintenance, 12/31/22 10:10:00 EDT, Capsule, [facility]/pharmacy #[id number], Partial fill upon patient request if the [...] PACK, # 60 capsule, 0 Refills, Maintenance, 01/10/23 14:29:00 EDT, Capsule, [facility], 161, cm, 12/31/22 9:43:00 EDT, Height, 77.2, kg, 11/13/22 13:42:00 EDT, Dry Weight Start Date: 01/10/23 Status: Ordered magnesium oxide 400 mg oral [...] PACK, # 30 tablet, 5 Refills, Maintenance, 01/24/23 7:43:00 EDT, [facility]/pharmacy #[id number], 161, cm, 01/23/23 12:40:00 EDT, Height, 77.2, kg, 11/13/22 13:42:00 EDT, Dry Weight Start Date: 01/24/23 Status: Ordered multivitamin Multiple Vitamins oral tablet 1 tablet, By Mouth, Daily, # 90 tablet, 3 Refills, Maintenance, 12/13/22 11:52:00 EDT, Tablet, [facility], Partial fill upon patient request if the prescription is for a schedule II opioid drug., 1 tablet By Mouth Daily, 161, cm, 11/28/22... 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 2Carotid ultrasound 2016 showing bilateral noncritical carotid stenosis. 50-70% bilaterally. 3Per chart review meeting GFR criteria 4Per MOCA done at [facility] 5Patient's aba therapist is [facility] and patient sees Dr. Gume Mart 6MOCA 20 Social History Social History Type Response Smoking Status Former smoker, quit more than 30 days ago; Other: QUIYT COUPLE YEARS AGO; entered on: 11/13/22 Sex Patient Care team information Care Team Personnel Name: Carmita Enriquez RN Position: [facility] RN Member Role: Primary Care Nurse Name: Mattie Morris RN Position: [facility] RN Supluisa Member Role: Primary Care Nurse Name: Ranjeet Rushing MD Position: [facility] Physician - Primary Care Member Role: PCP Address: Address: [address] [place] [address] - Name: Yoselyn Bradley RN Position: [facility] RN Member Role: Primary Care Nurse Name: Chari Grey NP Position: [facility] PCO Associate Professional Member Role: Lifetime Consulting Provider Address: Address: [address] [place] [address] - Name: Yariel Fuller RN Position: [facility] RN Member Role: Primary Care Nurse Name: Julius Stringer RN Position: S RN Member Role: Primary Care Nurse Name: Shantell Carter Position: S RN Member Role: Primary Care Nurse Name: Michelle Morris RN Position: [facility] Nurse Member Role: Primary Care Nurse Care Team Related Persons Name: ADRYAN GOVEA Address: [address] [address] Name: TAMARA GOVEA Address: [address] [address]
--- OUTSIDE RECORDS SUMMARY | 2023-07-07 08:47 | XMS_ITS | Continuity of Care Document ---
Author Name Unknown Organization [facility] Address [address] [place] [id number]- Care Team Providers Care Business Development Director Name Role Phone Ranjeet Rushing MD Primary Care Physician Encounter [facility] Date(s): 03/04/23 - 06/06/23 [facility] [address] [place] [address]- Attending Physician: Magnolia Carolina MD Admitting Physician: Magnolia Carolina MD Allergies, Adverse Reactions, Alerts Substance Reaction [...] 07/19/08 Gi sarah 1Result Comment: [05/28/2017] HD [facility]: [id number] 2Location History: [facility] 3Admin Note: VIS GIVEN-DATED 04/04/09 4Admin Note: vis given 5Admin Note: VIS given 6Admin Note: VIS-GIVEN 7Location History: [facility] 8Location History: [facility] 9Resesperanza Comment: [10/17/2015] PER NICO AT [facility] 10Admin Note: VIS GIVEN [...] 2 Refills, Maintenance, 04/01/23 15:47:00 EDT, Powder, [facility]/pharmacy #[id number], 2 puffs Inhalation Every 6 hours,PRN:as needed, [...] 10:34:00 EDT, Route to Pharmacy Electronically, [facility], 160, cm, 04/14/23 20:00:00 EDT, Height, 68.5, [...] Status: Ordered BD UF SHORT PEN NEEDLE [id number] BD UF SHORT PEN NEEDLE [id number], See Instructions, # 200 Unknown, 5 Refills, USE TO INJECT INSULIN TWICE A DAY, 160, cm, 11/27/21 14:08:00 EDT, Height, 74.8, kg, 11/01/21 15:05:00 EST, Dry Weight Start Date: 11/30/21 Status: Ordered colchicine 0.6 mg oral capsule 1 capsule = 0.6 mg, By Mouth, 2 times a day, # 20 capsule, 0 Refills, Maintenance, 12/31/22 10:10:00 EDT, Capsule, [facility]/pharmacy #[id number], Partial fill [...] 10:34:00 EDT, Route to Pharmacy Electronically, [facility], 160, cm, 04/14/23 20:00:00 EDT, Height, [...] 11 Refills, Maintenance, 04/18/23 10:34:00 EDT, [facility], 160, cm, 04/14/23 20:00:00 EDT, Height, [...] 11/28/22... Start Date: 12/13/22 Status: Ordered Pen Balm, 31 G x 5 mm BD Ultra [...] 2 Refills, Maintenance, 05/16/23 14:49:00 EDT, [facility], 160, cm, 04/14/23 20:00:... Start Date: 05/16/23 Status: Ordered simvastatin 10 mg oral tablet 1, tablet, By Mouth, Daily at bedtime, # 28 tablet, Refills 11, Maintenance, 04/18/23 10:34:00 EDT,Route to Pharmacy Electronically, [facility], 160, cm, 04/14/23 20:00:00 EDT, Height,68.5, kg, [...] 10:33:00 EDT, Route to Pharmacy Electronically, [facility], 160, cm, 04/14/23 20:00:00 EDT, Height, 68.5, [...] 04/18/23 10:33:00 EDT,Route to Pharmacy Electronically, [facility], 160, cm, 04/14/23 20:00:00 EDT, Height,68.5, kg, 04/14/23 20:00:00 EDT, Dry Weight Start Date: 04/18/23 Status: Ordered Trelegy Ellipta inhalation powder 1 puffs, Inhalation, Daily, at the same time every day, # 3 each, 1 Refills, Maintenance, 04/01/23 15:47:00 EDT, Powder, [facility]/pharmacy #[id number], Partial fill upon patient request if [...] 11 Refills, Maintenance, 04/18/23 10:34:00 EDT, [facility], 160, cm, 04/14/23 20:00:00 EDT, Height, 68.5, [...] (osteoarthritis), cervical Confirmed Active Osteoporosis Confirmed Active *[facility] [phone] 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 2Carotid ultrasound 2016 showing bilateral noncritical carotid stenosis. 50-70% bilaterally. 3Per chart review meeting GFR criteria 4Per [place] [facility] 5Patient's marketing agent is [facility] Dr. Gume Mart 6MOCA 20 Social History Social History Type Response Smoking Status Former smoker, quit more than 30 days ago; Other: QUIYT COUPLE YEARS AGO; entered on: 11/13/22 Sex Patient Care team information Care Team Personnel Name: Trinity Lloyd MD Position: [facility] Outreach Member Role: Lifetime Consulting Physician Name: Carmita Enriquez RN Position: [facility] RN Member Role: Primary Care Nurse Name: Mattie Morris RN Position: [facility] RN Supv Member Role: Primary Care Nurse Name: Ranjeet Rushing MD Position: [facility] Physician - Primary Care Member Role: PCP Address: Address: [address] [place] [phone]- Name: Yoselyn Bradley RN Position: [facility] RN Member Role: Primary Care Nurse Name: Chari Grey NP Position: [facility] PCO Associate Professional Member Role: Lifetime Consulting Provider Address: Address: [address] [place] [address]- Name: Yariel Fuller RN Position: [facility] RN Member Role: Primary Care Nurse Name: Julius Stringer RN Position: [facility] RN Member Role: Primary Care Nurse Name: Shantell Carter Position: [facility] RN Member Role: Primary Care Nurse Name: Libia Rivera RN Position: [facility] RN Member Role: Primary Care Nurse Name: Michelle Morris RN Position: [facility] AMB Nurse Member Role: Primary Care Nurse Care Team Related Persons Name: ADRYAN GOVEA Address: [address] [address] Name: TAMARA GOVEA Address: [address] [address]
--- OUTSIDE RECORDS SUMMARY | 2023-07-07 08:47 | XMS_ITS | Continuity of Care Document ---
Author Name Unknown Organization [facility] Leif lt Address [address] [place] [address]- Care Team Providers Care Sand Molder Name Role Phone Ranjeet Rushing MD Primary Care Physician [phone] Encounter [facility] Date(s): 04/01/23 - 04/08/23 [facility] Adult [address] [place] [address]- Encounter Diagnosis Diabetes mellitus - insulin(Discharge Diagnosis) - 04/01/23 Athlete's foot(Discharge Diagnosis) - 04/01/23 Cough(Discharge Diagnosis) - 04/01/23 Attending Physician: Chari Grey NP Referring Physician: [...] 11 07/19/08 Gi sarah 1Result Comment: [05/28/2017] [facility]: [id number] 2Location History: [facility] 3Admin Note: VIS GIVEN-DATED 04/04/09 4Admin Note: vis given 5Admin Note: VIS given 6Admin Note: VIS-GIVEN 7Location History: [facility] 8Location History: [facility] 9Resesperanza Comment: [10/17/2015] PER NICO AT [facility] 10Admin Note: VIS GIVEN 11Admin Note: VIS [...] 2 Refills, Maintenance, 04/01/23 15:47:00 EDT, Powder, [facility]/pharmacy #[id number], 2 puffs Inhalation Every 6 hours,PRN:as [...] Daily, # 28 tablet, Refills 0, Maintenance, 03/21/23 16:45:00 EDT, Route to Pharmacy Electronically, [facility], 160, cm, 03/17/23 11:11:00 EDT, Height, 69.9, kg, 03/17/23 11:11:00 EDT, Dry Weight Start Date: 03/21/23 Status: Ordered Azithromycin 5 Day Dose Pack 250 mg oral tablet 1 pack/packet, By Mouth, Once, as directed on package labeling, # 6 tablet, 0 Refills, Soft Stop, 04/01/23 15:52:00 EDT, Tablet, [facility], Partial fill upon patient request if the prescription is for a schedule II opioid drug., 160, cm,... Start Date: 04/01/23 Status: Ordered BD UF SHORT PEN NEEDLE [id number] BD UF SHORT PEN NEEDLE [id number], See Instructions, # 200 Unknown, 5 Refills, USE TO INJECT INSULIN TWICE A DAY, 160, cm, 11/27/21 14:08:00 EDT, Height, 74.8, kg, 11/01/21 15:05:00 EST, Dry Weight Start Date: 11/30/21 Status: Ordered colchicine 0.6 mg oral capsule 1 capsule = 0.6 mg, By Mouth, 2 times a day, # 20 capsule, 0 Refills, Maintenance, 12/31/22 10:10:00 EDT, Capsule, [facility]/pharmacy #[id number], Partial fill upon patient request if the prescription is for a schedule II opioid drug., 161, cm, 12/31/22 9:43:00 E... Start Date: 12/31/22 Stop Date: 01/10/23 Status: Ordered Fish Oil = 1,000 mg, By Mouth, Daily, 0 Refills, Maintenance, 11/17/15 13:08:57 EDT Start Date: 11/17/15 Status: Ordered FLUoxetine 20 mg oral capsule 3, capsule, By Mouth, Daily, # 84 capsule, Refills 0, Maintenance, 03/21/23 16:45:00 EDT, Route to Pharmacy Electronically, [facility], 160, cm, 03/17/23 11:11:00 EDT, Height, 69.9, kg,03/17/23 11:11:00 EDT, Dry Weight Start Date: 03/21/23 Status: Ordered Freestyle Lite Lancets See Instructions, [...] day, # 56 tablet, Refills 0, Maintenance, 03/21/23 16:45:00 EDT, Route to Pharmacy Electronically, [facility], 160, cm, 03/17/23 11:11:00 EDT, Height, 69.9, kg, 03/17/23 11:11:00 EDT, Dry Weight Start Date: 03/21/23 Status: Ordered ketoconazole 2% topical cream 1 application, Topically, Daily, APPLY TO BOTTOMS OF BILATERAL FEET DAILY, # 60 Gm, 0 Refills, Acute 04/22/23 0:00:00 EDT, 04/01/23 15:52:00 EDT, [facility], Partial fill upon patient request if the prescription is for a schedule II... Start Date: 04/01/23 Stop Date: 04/22/23 Status: Ordered Lidoderm 5% film 1 patch, [...] PACK, # 60 capsule, 0 Refills, Maintenance, 03/21/23 16:46:00 EDT, [facility], 160, cm, 03/17/23 11:11:00 EDT, Height, 69.9, kg, 03/17/23 11:11:00 EDT, Dry Weight Start Date: 03/21/23 Status: Ordered magnesium oxide 400 mg oral tablet 1 tablet, By Mouth, Daily, # 28 tablet, 0 Refills, Maintenance, 03/21/23 16:45:00 EDT, [facility], 160, cm, 03/17/23 11:11:00 EDT, Height, 69.9, kg, 03/17/23 11:11:00 EDT, Dry Weight Start Date: 03/21/23 Status: Ordered Melatonin 3 mg oral tablet [...] 11/28/22... Start Date: 12/13/22 Status: Ordered Pen [place], 31 G x 5 mm BD Ultra Fine III See Instructions, # 200 each, Refills 5, Tot. Refills 5, Maintenance, To inject insulin BID for DM II E11.9, 01/07/23 13:37:00 EDT, SHORT, Compound, 161, cm, 12/31/22 9:43:00 EDT, Height, 77.2, kg, 11/13/22 13:42:00 EDT, Dry Weight Start Date: 01/07/23 Status: Ordered Rybelsus 14 mg oral tablet 1 tablet = 14 mg, By Mouth, Daily, take at least 30 minutes before first food, beverage, or other oral meds, # 30 tablet, 1 Refills, Maintenance, 04/01/23 15:47:00 EDT, Tablet, [id number], Partial fill upon patient request if the prescript... Start Date: 04/01/23 Status: Ordered simvastatin 10 mg oral tablet 1, tablet, By Mouth, Daily at bedtime, # 28 tablet, Refills 0, Maintenance, 03/21/23 16:45:00 EDT, Route to Pharmacy Electronically, [facility], 160, cm, 03/17/23 11:11:00 EDT, Height, 69.9, kg, 03/17/23 11:11:00 EDT, Dry Weight Start Date: 03/21/23 Status: Ordered Skyrizi 150 mg/mL subcutaneous solution = 150 mg, Subcutaneous Infusion, 0 Refills, Maintenance, 11/01/21 15:02:00 EST, Partial fill upon patient request if the prescription is for a schedule II opioid drug. Start Date: 11/01/21 Status: Ordered spironolactone 100 mg oral tablet 1, tablet, By Mouth, Daily, # 28 tablet, Refills 0, Maintenance, 03/21/23 16:45:00 EDT, Route to Pharmacy Electronically, [facility], 160, cm, 03/17/23 11:11:00 EDT, Height, 69.9, kg, 03/17/23 11:11:00 EDT, Dry Weight Start Date: 03/21/23 Status: Ordered traMADol 50 mg oral tablet [...] bedtime, # 28 tablet, Refills 0, Maintenance, 03/21/23 16:45:00 EDT, Route to Pharmacy Electronically, [facility], 160, cm, 03/17/23 11:11:00 EDT, Height, 69.9, kg, 03/17/23 11:11:00 EDT, Dry Weight Start Date: 03/21/23 Status: Ordered Trelegy Ellipta inhalation powder 1 puffs, Inhalation, Daily, at the same time every day, # 3 each, 1 Refills, Maintenance, 04/01/23 15:47:00 EDT, Powder, [facility] #[id number], Partial fill upon patient request if the prescription is for a schedule II opioid drug., 160, cm, 04/01/23 15:... Start Date: 04/01/23 Status: Ordered Tresiba FlexTouch 200 units/mL subcutaneous solution See Instructions, INJECT SUBCUTANEOUSLY TAKING 55 UNITS DAILY, MAX DOSE 140 UNITS, # 9 Unknown, 5 Refills, Soft Stop, 12/11/22 13:38:00 EDT, [facility], 161, cm, 11/28/22 10:59:00 EDT, Height, [...] Daily, # 28 tablet, 0 Refills, Maintenance, 03/21/23 16:45:00 EDT, [facility], 160, cm, 03/17/23 11:11:00 EDT, Height, 69.9, [...] Active Osteoporosis Confirmed Active *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 2Carotid ultrasound 2016 showing bilateral noncritical carotid stenosis. 50-70% bilaterally. 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 Gume Mart 6MOCA 20 Diagnosis Diagnosis Type Effective Dates Health Status Cl inical Service Informant Diabetes mellitus - insulin Discharge Diagnosis 04/01/23 Athlete's foot Discharge Diagnosis 04/01/23 Cough Discharge Diagnosis 04/01/23 Vital Signs Most recent to oldest [Reference Range]: 1 Height 160 cm (04/01/23 3:18 PM) Weight 69.4 kg (04/01/23 3:18 PM) Oxygen Saturation [94-100 %] 91 % *L* (04/01/23 3:18 PM) Pulse Rate [55-90 bpm] 87 bpm (04/01/23 3:18 PM) Body Mass Index [18.5-24.99 kg/m2] 27.11 kg/m2 *H* (04/01/23 3:18 PM) Blood Pressure [90-138/55-84 mm Hg] 98/5 2mm Hg (04/01/23 3:18 PM) Temperature [96.8-100.4 DegF] 97.7 DegF (04/01/23 3:18 PM) Mode of Delivery (Oxygen) Room air (04/01/23 3:18 PM) Blood pressure sites Arm, left (04/01/23 3:18 PM) Temperature Route Oral (04/01/23 3:18 PM) Weight Obtained Via Standing scale (04/01/23 3:18 PM) Social History Social History Type Response Smoking Status Former smoker, quit more than 30 days ago; Other: QUIYT COUPLE YEARS AGO; entered on: 11/13/22 Sex Note * Rebekah Hartley: PERFORM, SIGN, VERIFY Event Display: Patient Education/Instruction Authored Date: [id number] [facility] *BMP [place] Clinical Summary Name RAFAEL GOVEA Age 72 Years 1950 PCP Kristan SUTTON, Ranjeet Beatty PCP Visit Date 04/01/2023 15:05:00 Additional Instructions: Scheduled Appointments?? Future Appointments ?*BMP??[facility] ?[address],??[address] ?Phone:??--?Fax:??-- ?Appt. Date:??04/22/2023?9:10 AM ?Scheduled Provider:??Matilda DIRECTOR OF FIELD COORDINATION , Chari Santos ?*Pain??Management ?[address]??[place],??[place],??[address] ?Phone:??[phone]?Fax:??-- ?Appt. Date:??05/07/2023?10:40 AM ?Scheduled Provider:??Magnolia Carolina MD Follow-Up Instructions ?? Diagnosis Medications: Please continue your medications until treatment is completed or stopped by your provider. Discuss any questions related to medications with your provider. New Medications [facility], [address] [place] [id number], [phone] Azithromycin (Azithromycin 5 Day Dose Pack 250 mg oral tablet) 1 pack/packet Oral once. as directedon package labeling. Refills: 0. Next Dose: Ketoconazole (ketoconazole 2% topical cream) 1 kiya Topically Daily. APPLY TO BOTTOMS OF BILATERAL FEET DAILY. Refills: 0. Next Dose: Medications to Continue Taking That Have Changed [facility], [address] [place] [id number], [phone] - semaglutide (Rybelsus 14 mg oral tablet) 1 tab(s) Oral Daily. take at least 30 minutes before first food, beverage, or other oral meds. Refills: 1. Next Dose: Medications to Continue with No Changes [facility]/pharm[facility] #[id number], [address] [place] [id number], [phone] Albuterol (albuterol 90 mcg/inh inhalation powder) 2 puff(s) Inhalation every 6 hours as needed. Refills: 2. Next Dose: fluticasone/umeclidinium/vilanterol (Trelegy Ellipta inhalation powder) 1 puff(s) Inhalation Daily.at the same time every day. Refills: 1. Next Dose: These medications were not printed or sent to your pharmacy Acetaminophen (Tylenol 325 mg oral tablet) 2 tab(s) Oral every 6 hours. Next Dose: Alendronate (alendronate 70 mg oral tablet) 1 tab(s) Oral every week. DIRECTED.. Refills: 2. Next Dose: Allopurinol (allopurinol 300 mg oral tablet) 1 tab(s) Oral Daily. Refills: 0. Next Dose: Cholecalciferol (Vitamin D3 1000 intl units oral capsule) 1 capsule Oral Daily. BUBBLE PACK. Refills: 1. Next Dose: Colchicine (colchicine 0.6 mg oral capsule) 1 capsule Oral twice a day for 10 Days. Refills: 0. Next Dose: Cyanocobalamin (Vitamin B-12 500 mcg oral tablet) 1 tab(s) Oral Daily. Refills: 0. Next Dose: Durable Medical Equipment (12 inch Grab Bars) Grab bars : Length 12inches Use as directed DX Unsteady Gait ICD10 R26.81 HT: 5'3 Weight 162lbs Length of need Lifetime. Refills: 0. Next Dose: Durable Medical Equipment (Freestyle Lite Lancets) TEST BS TID DX E11.9 IDDMII. Refills: 11. Next Dose: Durable Medical Equipment (Freestyle Lite Monitor) TEST BS TID DX E11.9 IDDMII. Refills: 0. Next Dose: Durable Medical Equipment (Freestyle Lite Test Strips) TEST BS TID DX E11.9 IDDMII. Refills: 11. Next Dose: Durable Medical Equipment (Pen [place], 31 G x 5 mm BD Ultra Fine III) To inject insulin BID for DMII E11.9. Refills: 5. Next Dose: Fluoxetine (FLUoxetine 20 mg oral capsule) 3 capsule Oral Daily. Refills: 0. Next Dose: Furosemide (furosemide 40 mg oral tablet) 1 tab(s) Oral twice a day. Refills: 0. Next Dose: insulin degludec (Tresiba FlexTouch 200 units/mL subcutaneous solution) INJECT SUBCUTANEOUSLY TAKING 55 UNITS DAILY, MAX DOSE 140 UNITS. Refills: 5. Next Dose: Lidocaine Topical (Lidoderm 5% film) 1 patch Topically Daily for 30 Days. Refills: 11. Next Dose: Magnesium Oxide (magnesium oxide 400 mg oral tablet) 1 tab(s) Oral Daily. Refills: 0. Next Dose: Melatonin (Melatonin 3 mg oral [...] Oral Daily at Bedtime. BUBBLE PACK. Refills: 5. Next Dose: Miscellaneous Rx (BD UF SHORT PEN NEEDLE [id number]) USE TO INJECT INSULIN TWICE A DAY. Refills: 5. Next Dose: Miscellaneous Rx (VITAMIN D3 1,000 UNIT SOFTGEL) 1 capsule Oral Daily. Refills: 0. Next Dose: Miscellaneous Rx (VITAMIN D3 1,000 UNIT SOFTGEL) 1 capsule Oral Daily. Refills: 0. Next Dose: Miscellaneous Rx (VITAMIN D3 1,000 UNIT SOFTGEL) 1 capsule Oral Daily. Refills: 0. Next Dose: Multivitamin (multivitamin Multiple Vitamins oral tablet) 1 tab(s) Oral Daily. Refills: 3. Next Dose: [place]-3 Polyunsaturated Fatty Acids (Fish Oil) 1,000 Milligram Oral Daily. Next Dose: Pregabalin (Lyrica 150 mg oral capsule) 1 capsule Oral twice a day. BUBBLE PACK. Refills: 0. Next Dose: risankizumab (Skyrizi 150 mg/mL subcutaneous solution) 150 Milligram Subcutaneous Infusion. Next Dose: Simvastatin (simvastatin 10 mg oral tablet) 1 tab(s) Oral Daily at Bedtime. Refills: 0. Next Dose: Spironolactone (spironolactone 100 mg oral tablet) 1 tab(s) Oral Daily. Refills: 0. Next Dose: Tramadol (traMADol 50 mg oral tablet) TAKE 1-2 TABLETS BY MOUTH EVERY 6 HOURS SCHEDULE FOLLOW VISIT, NEEDED FOR PAIN. BUBBLE PACK. Refills: 0. Next Dose: Trazodone (traZODone 50 mg oral tablet) 1 tab(s) Oral Daily at Bedtime. Refills: 0. Next Dose: Allergy Info:?? Latex; Benadryl; Ambien; Lac-Hydrin Medications Given This Visit Future Orders ?No future orders Vital Signs Height 160 cm Weight 69.4 kg BMI 27.11 kg/m2 Blood Pressure 98 mm Hg/52 mm Hg Temperature 97.7 DegF Pulse Rate 87 bpm Respiratory Rate 02 Sat Mode of Delivery 91 %/Room air You can now view a summary of your hospital visit from the comfort of your home through a free online portal called [employer]. [employer] is a website that allows you to securely view your medical information including discharge summary, medications and follow-up visits. ??You can alsosend a secure electronic message to your doctor???s office to request appointments, renew medications or just ask a question. You can enroll at [email or web address] or register during your next office visit. [...] primary care provider, you may find a [facility] provider by calling [facility] at [phone]. For information about the plan of care [...] Team Personnel Name: Trinity Lloyd MD Position: [facility] Outreach Member Role: Lifetime Consulting Physician Name: Carmita Enriquez RN Position: [facility] RN Member Role: Primary Care Nurse Name: Mattie Morris RN Position: [facility] RN Supv Member Role: Primary Care Nurse Name: Ranjeet Rushing MD Position: [facility] Physician - Primary Care Member Role: PCP Address: Address: [address] [place] [address] Name: Yoselyn Bradley RN Position: [facility] RN Member Role: Primary Care Nurse Name: Chari Grey NP Position: [facility] PCO Associate Professional Member Role: Lifetime Consulting Provider Address: Address: [address] [place] [address]- Name: Yariel Fuller RN Position: [facility] RN Member Role: Primary Care Nurse Name: Julius Stringer RN Position: [facility] RN Member Role: Primary Care Nurse Name: Shantell Carter Position: [facility] RN Member Role: Primary Care Nurse Name: Libia Rivera RN Position: [facility] RN Member Role: Primary Care Nurse Name: Michelle Morris RN Position: [facility] AMB Nurse Member Role: Primary Care Nurse Care Team Related Persons Name: ADRYAN GOVEA Address: home [address] [facility] [place] [address] Name: TAMARA GOVEA Address: home [address] [facility] [place] [address]
--- OUTSIDE RECORDS SUMMARY | 2023-07-07 08:48 | XMS_ITS | Continuity of Care Document ---
Author Name Unknown Organization [facility] Leif lt Address [address] [place] [address]- Care Team Providers Care Internet Consultant Name Role Phone Ranjeet Rushing MD Primary Care Physician Encounter [facility] Date(s): 12/20/22 - 01/19/23 [facility] Adult [address] [place] [address]- Allergies, Adverse Reactions, Alerts Substance Reaction Severity [...] 06/11/11 Adria rded influenza virus vaccine, inactivated 8/1/10 Adria rded influenza virus vaccine, inactivated 3 [...] 07/19/08 Gi sarah 1Result Comment: [05/28/2017] [facility]: [id number] 2Location History: [facility] 3Admin Note: VIS GIVEN-DATED 04/04/09 4Admin Note: vis given 5Admin Note: VIS given 6Admin Note: VIS-GIVEN 7Location History: [facility] 8Location History: [facility] [address] [place] Comment: [10/17/2015] PER NICO AT [facility] 10Admin Note: VIS GIVEN 11Admin Note: [...] 11 Refills, Maintenance, 05/07/22 16:00:00 EDT, Powder, [facility]/pharmacy #[id number], 2 puffs [...] Status: Ordered BD UF SHORT PEN NEEDLE [id number] BD UF SHORT PEN NEEDLE [id number], See Instructions, # 200 Unknown, 5 Refills, USE TO INJECT INSULIN TWICE A DAY, 160, cm, 11/27/21 14:08:00 EDT, Height, 74.8, kg, 11/01/21 15:05:00 EST, Dry Weight Start Date: 11/30/21 Status: Ordered colchicine 0.6 mg oral capsule 1 capsule = 0.6 mg, By Mouth, 2 times a day, # 20 capsule, 0 Refills, Maintenance, 12/31/22 10:10:00 EDT, Capsule, [facility]/pharmacy #[id number], Partial fill upon patient request if the [...] 11/28/22... 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 Gume Mart 6MOCA 20 Social History Social History Type Response Smoking Status Former smoker, quit more than 30 days ago; Other: QUIYT COUPLE YEARS AGO; entered on: 11/13/22 Sex Patient Care team information Care Team Personnel Name: Carmita Enriquez RN Position: [facility] RN Member Role: Primary Care Nurse Name: Mattie Morris RN Position: [facility] RN Supv Member Role: Primary Care Nurse Name: Ranjeet Rushing MD Position: [facility] Physician - Primary Care Member Role: PCP Address: Address: [address] [place] [address] - Name: Yoselyn Bradley RN Position: [facility] RN Member Role: Primary Care Nurse Name: Chari Grey NP Position: [facility] PCO Associate Professional Member Role: Lifetime Consulting Provider Address: Address: [address] [place] [address] - Name: Yariel Fuller RN Position: [facility] RN Member Role: Primary Care Nurse Name: Julius Stringer RN Position: S RN Member Role: Primary Care Nurse Name: Shantell Carter Position: [facility] RN Member Role: Primary Care Nurse Name: Michelle Morris RN Position: [facility] PCO RN Member Role: Primary Care Nurse Care Team Related Persons Name: ADRYAN GOVEA Address: [place] [address] [address] Name: TAMARA GOVEA Address: [address] [address]
--- OUTSIDE RECORDS SUMMARY | 2023-07-07 08:48 | XMS_ITS | Continuity of Care Document ---
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 Name Role Phone Ranjeet Rushing MD Primary Care Physician [phone] Encounter [facility] Date(s): 02/04/23 - 02/11/23 [facility] Adult [address] [place] [address]- Encounter Diagnosis Change in behavior(Discharge Diagnosis) - 02/04/23 Toe pain(Discharge Diagnosis) - 02/04/23 Attending Physician: Not on Staff, Attending MD [...] 11 07/19/08 Gi sarah 1Result Comment: [05/28/2017] [facility]: [id number] 2Location History: [facility] 3Admin Note: VIS GIVEN-DATED 04/04/09 4Admin Note: vis given 5Admin Note: VIS given 6Admin Note: VIS-GIVEN 7Location History: [facility] 8Location History: [facility] 9Resesperanza Comment: [10/17/2015] PER NICO AT [facility] 10Admin Note: VIS GIVEN [...] 2 Refills, Maintenance, 01/20/23 22:52:00 EDT, Powder, [facility]/pharmacy #[id number], [...] Daily, # 28 tablet, Refills 0, Maintenance, 02/04/23 16:42:00 EDT, Route to Pharmacy Electronically, [facility], 161, cm, 02/04/23 15:03:00 EDT, Height, 77.2, kg, 11/13/22 13:42:00 EDT, Dry Weight Start Date: 02/04/23 Status: Ordered BD UF SHORT PEN NEEDLE [id number] BD UF SHORT PEN NEEDLE [id number], See Instructions, # 200 Unknown, 5 Refills, USE TO INJECT INSULIN TWICE A DAY, 160, cm, 11/27/21 14:08:00 EDT, Height, 74.8, kg, 11/01/21 15:05:00 EST, Dry Weight Start Date: 11/30/21 Status: Ordered colchicine 0.6 mg oral capsule 1 capsule = 0.6 mg, By Mouth, 2 times a day, # 20 capsule, 0 Refills, Maintenance, 12/31/22 10:10:00 EDT, Capsule, [facility]/pharmacy #[id number], [...] Daily, # 84 capsule, Refills 0, Maintenance, 02/04/23 16:42:00 EDT, Route to Pharmacy Electronically, [facility], 161, cm, 02/04/23 15:03:00 EDT, Height, 77.2, kg,11/13/22 13:42:00 EDT, Dry Weight Start Date: 02/04/23 Status: Ordered Freestyle Lite Lancets See Instructions, [...] day, # 56 tablet, Refills 0, Maintenance, 02/04/23 16:42:00 EDT, Route to Pharmacy Electronically, [facility], 161, cm, 02/04/23 15:03:00 EDT, Height, 77.2, kg, 11/13/22 13:42:00 EDT, Dry Weight Start Date: 02/04/23 Status: Ordered Lidoderm 5% film 1 patch, [...] Refills, Maintenance, 01/10/23 14:29:00 EDT, Capsule, [facility], 161, cm, 12/31/22 9:43:00 EDT, Height, 77.2, kg, 11/13/22 13:42:00 EDT, Dry Weight Start Date: 01/10/23 Status: Ordered magnesium oxide 400 mg oral tablet 1 tablet, By Mouth, Daily, # 28 tablet, 0 Refills, Maintenance, 02/04/23 16:42:00 EDT, [facility], 161, cm, 02/04/23 15:03:00 EDT, Height, 77.2, kg, 11/13/22 13:42:00 EDT, Dry Weight Start Date: 02/04/23 Status: Ordered Melatonin 3 mg oral tablet [...] 11/28/22... Start Date: 12/13/22 Status: Ordered Pen Paisley, 31 G x 5 mm BD Ultra [...] 0 Refills, Maintenance, 11/28/22 13:19:00 EDT, Tablet, [facility]/pharmacy #[id number], Partial fill upon patient request if t... Start Date: 11/28/22 Status: Ordered simvastatin 10 mg oral tablet 1, tablet, By Mouth, Daily at bedtime, # 28 tablet, Refills 0, Maintenance, 02/04/23 16:42:00 EDT, [facility], 161, cm, 02/04/23 15:03:00 EDT, Height, 77.2, kg, 11/13/22 13:42:00 EDT, Dry Weight Start Date: 02/04/23 Status: Ordered Skyrizi 150 mg/mL subcutaneous solution = 150 mg, Subcutaneous Infusion, 0 Refills, Maintenance, 11/01/21 15:02:00 EST, Partial fill upon patient request if the prescription is for a schedule II opioid drug. Start Date: 11/01/21 Status: Ordered spironolactone 100 mg oral tablet 1, tablet, By Mouth, Daily, # 28 tablet, Refills 0, Maintenance, 02/04/23 16:42:00 EDT, Route to Pharmacy Electronically, [facility], 161, cm, 02/04/23 15:03:00 EDT, Height, 77.2, kg, 11/13/22 13:42:00 EDT, Dry Weight Start Date: 02/04/23 Status: Ordered traMADol 50 mg oral tablet [...] bedtime, # 28 tablet, Refills 0, Maintenance, 02/04/23 16:42:00 EDT, [facility], 161, cm, 02/04/23 15:03:00 EDT, Height, 77.2, kg, 11/13/22 13:42:00 EDT, Dry Weight Start Date: 02/04/23 Status: Ordered Trelegy Ellipta inhalation powder 1 [...] Daily, # 28 tablet, 0 Refills, Maintenance, 02/04/23 16:42:00 EDT, [facility], 161, cm, 02/04/23 15:03:00 EDT, Height, 77.2, kg, 11/13/22 13:42:00 EDT, Dry Weight Start Date: 02/04/23 Status: Ordered VITAMIN D3 1,000 UNIT SOFTGEL [...] (osteoarthritis), cervical Confirmed Active Osteoporosis Confirmed Active *[facility] [phone] 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 2Carotid ultrasound 2016 showing bilateral noncritical carotid stenosis. 50-70% bilaterally. 3Per chart review meeting GFR criteria 4Per MOCA done at [facility] 5Patient's lapeler is [facility] and patient sees Dr. Gume Mart 6MOCA 20 Diagnosis Diagnosis Type Effective Dates Health Status Cl inical Service Informant Change in behavior Discharge Diagnosis 02/04/23 Toe pain Discharge Diagnosis 02/04/23 Vital Signs Most recent to oldest [Reference Range]: 1 Height 161 cm (02/04/23 3:03 PM) Weight 66.5 kg (02/04/23 3:03 PM) Oxygen Saturation [94-100 %] 94 % (02/04/23 3:03 PM) Pulse Rate [55-90 bpm] 98 bpm *H* (02/04/23 3:03 PM) Body Mass Index [18.5-24.99 kg/m2] 25.65 kg/m2 *H* (02/04/23 3:03 PM) Blood Pressure [90-138/55-84 mm Hg] 120/ 52mm Hg (02/04/23 3:03 PM) Temperature [96.8-100.4 DegF] 96.8 DegF (02/04/23 3:03 PM) Blood pressure sites Arm, left (02/04/23 3:03 PM) Temperature Route Oral (02/04/23 3:03 PM) Social History Social History Type Response Smoking Status Former smoker, quit more than 30 days ago; Other: QUIYT COUPLE YEARS AGO; entered on: 11/13/22 Sex Note * Jill Ramirez: PERFORM, SIGN, VERIFY Event Display: Patient Education/Instruction Authored Date: [id number] [facility] *BMP [place] Clinical Summary Name RAFAEL GOVEA Age 72 Years 1950 PCP Kristan SUTTON, Ranjeet Beatty PCP Visit Date 02/04/2023 14:57:00 Additional Instructions: Scheduled Appointments?? Future Appointments ?*BMP??So[facility] ?[address],??[address] ?Phone:??--?Fax:??-- ?Appt. Date:??02/20/2023?3:50 PM ?Scheduled Provider:??Matilda LOZADA , Chari Santos ?*Pain??Management ?[address]??[place],??[place],??[address] ?Phone:??[phone]?Fax:??-- ?Appt. Date:??03/04/2023?8:40 AM ?Scheduled Provider:??Caity SUTTON, [place] ?*BMP??So[facility] ?[address],??[address] ?Phone:??--?Fax:??-- ?Appt. Date:??04/22/2023?9:10 AM ?Scheduled Provider:??Chari Grey NP Follow-Up Instructions ?? Diagnosis Medications: Please continue your medications until treatment is completed or stopped by your provider. Discuss any questions related to medications with your provider. Medications to Continue with No Changes These medications were not printed or sent to your pharmacy Acetaminophen (Tylenol 325 mg oral tablet) 2 tab(s) Oral every 6 hours. Next Dose: Albuterol (albuterol 90 mcg/inh inhalation powder) 2 puff(s) Inhalation every 6 hours as needed. Refills: 2. Next Dose: Alendronate (alendronate 70 mg oral tablet) 1 tab(s) Oral every week. DIRECTED.. Refills: 1. Next Dose: Allopurinol (allopurinol 300 mg oral tablet) 1 tab(s) Oral Daily. Refills: 1. Next Dose: Cholecalciferol (Vitamin D3 1000 intl units oral capsule) 1 capsule Oral Daily. BUBBLE PACK. Refills: 1. Next Dose: Colchicine (colchicine 0.6 mg oral capsule) 1 capsule Oral twice a day for 10 Days. Refills: 0. Next Dose: Cyanocobalamin (cyanocobalamin 500 mcg oral [...] 11. Next Dose: Durable Medical Equipment (Pen Paisley, 31 G x 5 mm BD Ultra [...] Miscellaneous Rx (BD UF SHORT PEN NEEDLE [id number]) USE TO INJECT INSULIN TWICE A DAY. Refills: 5. Next Dose: Multivitamin (multivitamin Multiple Vitamins oral tablet) 1 tab(s) Oral Daily. Refills: 3. Next Dose: [place]-3 Polyunsaturated Fatty Acids (Fish Oil) 1,000 Milligram [...] Lac-Hydrin Medications Given This Visit Future Orders ?Complete Urinalysis/Reflex Culture? Order Date:02/04/23?- Complete on or after?02/04/23 Vital Signs Height 161 cm Weight 66.5 kg BMI 25.65 kg/m2 Blood Pressure 120 mm Hg/52 mm Hg Temperature 96.8 DegF Pulse Rate 98 bpm Respiratory Rate 02 Sat Mode of Delivery 94 %/ You can now view a summary of your hospital visit from the comfort of your home through a free online portal called [employer]. [employer] is a website that allows you to securely view your medical information including discharge summary, medications and follow-up visits. ??You can alsosend a secure electronic message to your doctor???s office to request appointments, renew medications or just ask a question. You can enroll at [email or web address] or register during your next office visit. [...] primary care provider, you may find a [facility] provider by calling [facility] at [phone]. For information about the plan of care [...] Team Personnel Name: Carmita Enriquez RN Position: [facility] RN Member Role: Primary Care Nurse Name: Mattie Morris RN Position: [facility] RN Supv Member Role: Primary Care Nurse Name: Ranjeet Rushing MD Position: [facility] Physician - Primary Care Member Role: PCP Address: Address: [address] [place] [address] - Name: Yoselyn Bradley RN Position: [facility] RN Member Role: Primary Care Nurse Name: Chari Grey NP Position: [facility] PCO Associate Professional Member Role: Lifetime Consulting Provider Address: Address: [address] [place] [address] - [place] Name: Yariel Fuller RN Position: [facility] RN Member Role: Primary Care Nurse Name: Julius Stringer RN Position: [facility] RN Member Role: Primary Care Nurse Name: Shantell Carter Position: [facility] RN Member Role: Primary Care Nurse Name: Michelle Morris RN Position: [facility] AMB Nurse Member Role: Primary Care Nurse Care Team Related Persons Name: ADRYAN GOVEA Address: home [address] [facility] [address] [place], [place] Name: TAMARA GOVEA Address: home [address] [facility] [address] [place] [facility] [facility] [place] [address]
--- OUTSIDE RECORDS SUMMARY | 2023-07-07 08:48 | XMS_ITS | Continuity of Care Document ---
Author Name Unknown Organization 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 Adult [address] [place] [address]- Allergies, Adverse Reactions, Alerts Substance Reaction Severity [...] 07/19/08 Gi sarah 1Result Comment: [05/28/2017] [facility]: [id number] 2Location History: [facility] 3Admin Note: VIS GIVEN-DATED 04/04/09 4Admin Note: vis given 5Admin Note: VIS given 6Admin Note: VIS-GIVEN 7Location History: [facility] 8Location History: [facility] 9Resesperanza Comment: [10/17/2015] PER NICO AT [facility] 10Admin Note: VIS GIVEN 11Admin Note: VIS [...] Refills, Maintenance, 04/01/23 15:47:00 EDT, Powder, [facility]/pharmacy #[id number], 2 puffs Inhalation Every 6 hours,PRN:as [...] 10:34:00 EDT, Route to Pharmacy Electronically, [facility], [...] Status: Ordered BD UF SHORT PEN NEEDLE [id number] BD UF SHORT PEN NEEDLE [id number], See Instructions, # 200 Unknown, 5 Refills, USE TO INJECT INSULIN TWICE A DAY, 160, cm, 11/27/21 14:08:00 EDT, Height, 74.8, kg, 11/01/21 15:05:00 EST, Dry Weight Start Date: 11/30/21 Status: Ordered cephalexin monohydrate 500 mg oral tablet 1 tablet = 500 mg, By Mouth, 4 times a day, for 10 days, # 40 tablet, 0 Refills, Acute 04/24/23 19:42:00 EDT, 04/14/23 19:42:00 EDT, Tablet, [facility], Partial fill upon patient request if the prescription is for a schedule II opioid drug... Start Date: 04/14/23 Stop Date: 04/24/23 Status: Ordered clotrimazole 1% topical cream 1 application, Topically, 2 times a day, # 24 Gm, 2 Refills, Acute 05/05/23 20:00:00 EDT, 04/14/23 19:44:00 EDT, Cream, [facility], Partial fill upon patient request if the prescription is for a schedule II opioid drug., 1 application Topi... Start Date: 04/14/23 Stop Date: 05/05/23 Status: Ordered colchicine 0.6 mg oral capsule 1 capsule = 0.6 mg, By Mouth, 2 times a day, # 20 capsule, 0 Refills, Maintenance, 12/31/22 10:10:00 EDT, Capsule, [facility]/pharmacy #[id number], Partial fill upon patient request if the prescription is for a schedule II opioid drug., 161, cm, 12/31/22 9:43:00 E... Start Date: 12/31/22 Stop Date: 01/10/23 Status: Ordered Fish Oil = 1,000 mg, By Mouth, Daily, 0 Refills, Maintenance, 11/17/15 13:08:57 EDT Start Date: 11/17/15 Status: Ordered fluconazole 150 mg oral tablet 1 tablet = 150 mg, By Mouth, Every week, for 4 week(s), # 4 tablet, 0 Refills, Acute 05/07/23 21:01:00 EDT, 04/09/23 21:01:00 EDT, Tablet, [facility], Partial fill upon patient request if the prescription is for a schedule II opioid drug.,... Start Date: 04/09/23 Stop Date: 05/07/23 Status: Ordered FLUoxetine 20 mg oral capsule [...] 10:34:00 EDT, Route to Pharmacy Electronically, [facility], 160, cm, 04/14/23 20:00:00 EDT, Height, 68.5, kg, 04/14/23 20:00:00 EDT, Dry Weight Start Date: 04/18/23 Status: Ordered ketoconazole 2% topical cream 1 application, Topically, Daily, APPLY TO BOTTOMS OF BILATERAL FEET DAILY, # 60 Gm, 0 Refills, Acute 04/22/23 0:00:00 EDT, 04/01/23 15:52:00 EDT, Cream, [facility], Partial fill upon patient [...] 11 Refills, Maintenance, 04/18/23 10:34:00 EDT, [facility], 160, cm, 04/14/23 20:00:00 EDT, Height, 68.5, [...] tablet, 3 Refills, Maintenance, 12/13/22 11:52:00 EDT, [facility], Partial fill upon patient request if the prescription is for a schedule II opioid drug., 1 tablet By Mouth Daily, 161, cm, 11/28/22... Start Date: 12/13/22 Status: Ordered Pen [place], 31 G x 5 mm BD Ultra [...] tablet, 1 Refills, Maintenance, 04/01/23 15:47:00 EDT, [id number], Partial fill upon patient request if the [...] 10:33:00 EDT, Route to Pharmacy Electronically, [facility], 160, cm, 04/14/23 20:00:00 EDT, Height, [...] 04/18/23 10:33:00 EDT,Route to Pharmacy Electronically, [facility], 160, cm, 04/14/23 20:00:00 EDT, Height,68.5, kg, 04/14/23 20:00:00 EDT, Dry Weight Start Date: 04/18/23 Status: Ordered Trelegy Ellipta inhalation powder 1 puffs, Inhalation, Daily, at the same time every day, # 3 each, 1 Refills, Maintenance, 04/01/23 15:47:00 EDT, Powder, [facility]/pharmacy #[id number], Partial fill upon patient request if the [...] 11 Refills, Maintenance, 04/18/23 10:34:00 EDT, [facility], 160, cm, 04/14/23 20:00:00 EDT, Height, [...] (osteoarthritis), cervical Confirmed Active Osteoporosis Confirmed Active *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 2Carotid ultrasound 2016 showing bilateral noncritical carotid stenosis. 50-70% bilaterally. 3Per chart review meeting GFR criteria 4Per MOCA done at [facility] 5Patient's guest services assistant is [facility] and [facility] Dr. Gume Mart 6MOCA 20 Social History Social History Type Response Smoking Status Former smoker, quit more than 30 days ago; Other: QUIYT COUPLE YEARS AGO; entered on: 11/13/22 Sex Patient Care team information Care Team Personnel Name: Trinity Lloyd MD Position: [facility] Outreach Member Role: Lifetime Consulting Physician Name: Carmita Enriquez RN Position: [facility] RN Member Role: Primary Care Nurse Name: Mattie Morris RN Position: [facility] RN Supv Member Role: Primary Care Nurse Name: Ranjeet Rushing MD Position: [facility] Physician - Primary Care Member Role: PCP Address: Address: [address] [place] [address]- Name: Yoselyn Bradley RN Position: [facility] RN Member Role: Primary Care Nurse Name: Chari Grey NP Position: [facility] PCO Associate Professional Member Role: Lifetime Consulting Provider Address: Address: [address] [place] [address]- Name: Yariel Fuller RN Position: [facility] RN Member Role: Primary Care Nurse Name: Julius Stringer RN Position: [facility] RN Member Role: Primary Care Nurse Name: Shantell Carter Position: [facility] RN Member Role: Primary Care Nurse Name: Libia Rivera RN Position: [facility] RN Member Role: Primary Care Nurse Name: Michelle Morris RN Position: [facility] AMB Nurse Member Role: Primary Care Nurse Care Team Related Persons Name: ADRYAN GOVEA Address: home [address] [facility] [address] [place] [address] Name: TAMARA GOVEA Address: [place] [address] [place] [address]
--- OUTSIDE RECORDS SUMMARY | 2023-07-07 08:48 | XMS_ITS | Continuity of Care Document ---
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 Manager Name Role Phone Ranjeet Rushing MD Primary Care Physician [phone] Encounter [facility] Date(s): 04/22/23 - 05/22/23 [facility] Adult [address] [place] [address]- Allergies, Adverse Reactions, Alerts Substance Reaction Severity [...] 07/19/08 Gi sarah 1Result Comment: [05/28/2017] HD [facility]: [id number] 2Location History: [facility] 3Admin Note: VIS GIVEN-DATED 04/04/09 4Admin Note: vis given 5Admin Note: VIS given 6Admin Note: VIS-GIVEN 7Location History: [facility] 8Location History: [facility] 9Evelyne Comment: [10/17/2015] PER NICO AT [facility] 10Admin Note: VIS GIVEN 11Admin Note: VIS [...] 2 Refills, Maintenance, 04/01/23 15:47:00 EDT, Powder, [facility] [...] 10:34:00 EDT, Route to Pharmacy Electronically, [facility], 160, cm, 04/14/23 20:00:00 EDT, [...] Status: Ordered BD UF SHORT PEN NEEDLE [id number] BD UF SHORT PEN NEEDLE [id number], See Instructions, # 200 Unknown, 5 Refills, USE TO INJECT INSULIN TWICE A DAY, 160, cm, 11/27/21 14:08:00 EDT, Height, 74.8, kg, 11/01/21 15:05:00 EST, Dry Weight Start Date: 11/30/21 Status: Ordered colchicine 0.6 mg oral capsule 1 capsule = 0.6 mg, By Mouth, 2 times a day, # 20 capsule, 0 Refills, Maintenance, 12/31/22 10:10:00 EDT, Capsule, [facility]/pharmacy #[id number], Partial fill upon patient request if the [...] 10:34:00 EDT, Route to Pharmacy Electronically, [facility], 160, cm, 04/14/23 20:00:00 EDT, [...] 11/28/22... Start Date: 12/13/22 Status: Ordered Pen [place], 31 G x 5 mm BD Ultra [...] 04/18/23 10:34:00 EDT,[facility], cm, 04/14/23 20:00:00 EDT, Height,68.5, [...] 04/18/23 10:33:00 EDT,[facility], cm, 04/14/23 20:00:00 EDT, Height,68.5, kg, 04/14/23 20:00:00 EDT, Dry Weight Start Date: 04/18/23 Status: Ordered Trelegy Ellipta inhalation powder 1 puffs, Inhalation, Daily, at the same time every day, # 3 each, 1 Refills, Maintenance, 04/01/23 15:47:00 EDT, Powder, [facility] [...] 11 Refills, Maintenance, 04/18/23 10:34:00 EDT, [facility], 160, cm, 04/14/23 20:00:00 EDT, [...] cervical Confirmed Active Osteoporosis Confirmed Active *[facility] [phone] 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 2Carotid ultrasound 2016 showing bilateral noncritical carotid stenosis. 50-70% bilaterally. 3Per chart review meeting GFR criteria 4Per MOCA done at [facility] 5Patient's psychiatric technician assistant is [facility] and [facility] Dr. Gume Mart 6MOCA 20 Social History Social History Type Response Smoking Status Former smoker, quit more than 30 days ago; Other: QUIYT COUPLE YEARS AGO; entered on: 11/13/22 Sex Patient Care team information Care Team Personnel Name: Trinity Lloyd MD Position: [facility] Outreach Member Role: Lifetime Consulting Physician Name: Carmita Enriquez RN Position: [facility] RN Member Role: Primary Care Nurse Name: Mattie Morris RN Position: [facility] RN Supluisa Member Role: Primary Care Nurse Name: Ranjeet Rushing MD Position: [facility] Physician - Primary Care Member Role: PCP Address: Address: [address] [place] [address]- [place] Name: Yoselyn Bradley RN Position: [facility] RN Member Role: Primary Care Nurse Name: Chari Grey NP Position: [facility] PCO Associate Professional Member Role: Lifetime Consulting Provider Address: Address: [address] [place] [address]- [place] Name: Yariel Fuller RN Position: [facility] RN Member Role: Primary Care Nurse Name: Julius Stringer RN Position: [facility] RN Member Role: Primary Care Nurse Name: Shantell Carter Position: [facility] RN Member Role: Primary Care Nurse Name: Libia Rivera RN Position: [facility] RN Member Role: Primary Care Nurse Name: Michelle Morris RN Position: [facility] AMB Nurse Member Role: Primary Care Nurse Care Team Related Persons Name: JEFERSON ADRYAN Address: [place] [address] [address] Name: TAMARA GOVEA Address: [address] [address]
--- OUTSIDE RECORDS SUMMARY | 2023-07-07 08:49 | XMS_ITS | Continuity of Care Document ---
Author Name Unknown Organization [facility] Address [address] [place] [address] [place] [address]- Care Team Providers Care Mud Analysis Supervisor Name Role Phone Kristan SUTTON, Ranjeet Beatty Primary Care Physician Encounter 12/13/22 - 12/23/22 [facility] [address], [address] [place] [address]- Attending Physician: Matilda LOZADA, Chari Santos Admitting [...] iven Pneumococcal Poly (PPV23) (oldterm) 11 07/19/08 Jennifer smith 1Result Comment: [05/28/2017] [facility]: [id number] 2Location History: [facility] 3Admin Note: VIS GIVEN-DATED 04/04/09 4Admin Note: vis given 5Admin Note: VIS given 6Admin Note: VIS-GIVEN 7Location History: [facility] 8Location History: [facility] DR Seaman Comment: [10/17/2015] PER NICO AT [facility] 10Admin Note: VIS GIVEN 11Admin Note: [...] 11 Refills, Maintenance, 05/07/22 16:00:00 EDT, Powder, [facility]/pharmacy #[id number], 2 puffs [...] Status: Ordered BD UF SHORT PEN NEEDLE [id number] BD UF SHORT PEN NEEDLE [id number], See Instructions, # 200 Unknown, 5 Refills, [...] 11/28/22... Start Date: 12/13/22 Status: Ordered Pen [place], 31 G x 5 mm BD Ultra [...] Refills, Maintenance, 11/28/22 13:19:00 EDT, Tablet, [id number], Partial fill upon patient request if t... 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 2Carotid ultrasound 2016 showing bilateral noncritical carotid stenosis. 50-70% bilaterally. 3Per chart review meeting GFR criteria 4Per [place]A done [place] [facility] 5Patient's fitness management director is [facility] and [facility] sees Dr. Gume Mart 6MOCA 20 Results Radiology Reports * Exam Date Time Procedure Performing Provider Status 12/13/22 4:36 PM Chest 2 Views Frontal and Lat Shanon Butler; Nadine (Verified) Notes: (Chest 2 Views Frontal and Lat) Reason For Exam: chronic respiratory failure RESULT: Chest 2 Views Frontal and Lat Chest 2 Views Frontal and Lat INDICATION/CLINICAL QUESTION: Reason: chronic respiratory failure / TECHNIQUE: Frontal and lateral views of the chest. COMPARISON: 02/27/2022. FINDINGS: LINES AND TUBES: None. LUNGS AND PLEURA: RIGHT CHEST: The right lung is clear and there is no right effusion. LEFT CHEST: The left lung is clear and there is no left effusion. HEART, MEDIASTINUM AND DENISE: The heart is of normal size. The mediastinum and denise are normal. BONES AND SOFT TISSUES: No acute bony abnormality. IMPRESSION: 1. No active disease in chest. WSN: [id number] Ordering Physician: Rui Silva Dictated By: Dontrell Major MD Dictated Date/Time: 12/13/22 4:59 pm Reviewed By: Dontrell Major MD Signed By: Dontrell Major MD Signed Date/Time: 12/13/22 4:59 pm Transcribed By: JOSE Transcribed Date/Time: 12/13/22 4:58 pm Social History Social History Type Response Smoking Status Former smoker, quit more than 30 days ago; Other: QUIYT COUPLE YEARS AGO; entered on: 11/13/22 Sex Note * BHSPowerscribe , CIS S: TRANSCRIBE Dontrell Major MD: VERIFY Event Display: Result: Authored Date: [id number] Chest 2 Views Frontal and Lat INDICATION/CLINICAL QUESTION: Reason: chronic respiratory failure / TECHNIQUE: Frontal and lateral views of the chest. COMPARISON: 02/27/2022. FINDINGS: LINES AND TUBES: None. LUNGS AND PLEURA: RIGHT CHEST: The right lung is clear and there is no right effusion. LEFT CHEST: The left lung is clear and there is no left effusion. HEART, MEDIASTINUM AND DENISE: The heart is of normal size. The mediastinum and denise are normal. BONES AND SOFT TISSUES: No acute bony abnormality. IMPRESSION: 1. No active disease in chest. WSN: [id number] Ordering Physician: Rui Silva Dictated By: Dontrell Major MD Dictated Date/Time: 12/13/22 4:59 pm Reviewed By: Dontrell Major MD Signed By: Dontrell Major MD Signed Date/Time: 12/13/22 4:59 pm Transcribed By: JOSE Transcribed Date/Time: 12/13/22 4:58 pm Patient Care team information Care Team Personnel Name: Carmita Enriquez RN Position: S RN Member Role: Primary Care Nurse Name: Mattie Morris RN Position: [facility] RN Supv Member Role: Primary Care Nurse Name: Ranjeet Rushing MD Position: [facility] Primary Care Physician Member Role: PCP Address: Address: [address] [place] [address]- Name: Yoselyn Bradley RN Position: S RN Member Role: Primary Care Nurse Name: Chari Grey NP Position: [facility] PCO Associate Professional Member Role: Lifetime Consulting Provider Address: Address: [address] [place] [address]- [place] Name: Yariel Fuller RN Position: S RN Member Role: Primary Care Nurse Name: Juilus Stringer RN Position: S RN Member Role: Primary Care Nurse Name: Shantell Cartre Position: S RN Member Role: Primary Care Nurse Name: Michelle Morris RN Position: [facility] PCO RN Member Role: Primary Care Nurse Care Team Related Persons Name: ADRYAN GOVEA Address: home [address] [facility] [address] [place] [address] Name: TAMARA GOVEA Address: home [address] [facility] [address] [place] [address]
--- OUTSIDE RECORDS SUMMARY | 2023-07-07 08:49 | XMS_ITS | Continuity of Care Document ---
Author Name Unknown Organization [facility] Leif lt Address [address] [place] [address]- Care Team Providers Care Pattern Duplicator Name Role Phone Not on Staff, PCP Primary Care Physician Unavail able [facility]counter [facility] Date(s): 05/19/23 - 06/18/23 [facility] Adult [address] [place] [address]- Allergies, Adverse Reactions, Alerts Substance Reaction Severity [...] 11 07/19/08 Gi sarah 1Result Comment: [05/28/2017] [facility]: [id number] 2Location History: [facility] 3Admin Note: VIS GIVEN-DATED 04/04/09 4Admin Note: vis given 5Admin Note: VIS given 6Admin Note: VIS-GIVEN 7Location History: [facility] 8Location History: [facility] DR Seaman Comment: [10/17/2015] PER NICO AT [facility] 10Admin Note: VIS GIVEN 11Admin [...] Maintenance, 04/01/23 15:47:00 EDT, Powder, [facility]/pharmacy #[id number], 2 puffs Inhalation Every [...] 10:34:00 EDT, Route to Pharmacy Electronically, [facility], 160, cm, 04/14/23 20:00:00 EDT, Height, [...] Status: Ordered BD UF SHORT PEN NEEDLE [id number] BD UF SHORT PEN NEEDLE [id number], See Instructions, # 200 Unknown, 5 Refills, USE TO INJECT INSULIN TWICE A DAY, 160, cm, 11/27/21 14:08:00 EDT, Height, 74.8, kg, 11/01/21 15:05:00 EST, Dry Weight Start Date: 11/30/21 Status: Ordered colchicine 0.6 mg oral capsule 1 capsule = 0.6 mg, By Mouth, 2 times a day, # 20 capsule, 0 Refills, Maintenance, 12/31/22 10:10:00 EDT, Capsule, [facility]/pharmacy #[id number], Partial fill upon patient request if the [...] 10:34:00 EDT, Route to Pharmacy Electronically, [facility], 160, cm, 04/14/23 20:00:00 EDT, Height, 68.5, [...] 11 Refills, Maintenance, 04/18/23 10:34:00 EDT, [facility], 160, cm, 04/14/23 20:00:00 EDT, Height, [...] 11/28/22... Start Date: 12/13/22 Status: Ordered Pen [place], 31 G x 5 mm BD Ultra [...] 04/18/23 10:34:00 EDT,Route to Pharmacy Electronically, [facility], 160, cm, 04/14/23 20:00:00 EDT, Height,68.5, kg, [...] 10:33:00 EDT, [facility], [facility], 160, cm, 04/14/23 20:00:00 EDT, Height, [...] 04/18/23 10:33:00 EDT,Route to Pharmacy Electronically, [facility], 160, cm, 04/14/23 20:00:00 EDT, Height,68.5, kg, 04/14/23 20:00:00 EDT, Dry Weight Start Date: 04/18/23 Status: Ordered Trelegy Ellipta inhalation powder 1 puffs, Inhalation, Daily, at the same time every day, # 3 each, 1 Refills, Maintenance, 04/01/23 15:47:00 EDT, Powder, 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 2Carotid ultrasound 2016 showing bilateral noncritical carotid stenosis. 50-70% bilaterally. 3Per chart review meeting GFR criteria 4Per [place] [facility] 5Patient's aircraft tool maker is [facility] and patient sees Dr. Gume Mart 6MOCA 20 Social History Social History Type Response Smoking Status Former smoker, quit more than 30 days ago; Other: QUIYT COUPLE YEARS AGO; entered on: 11/13/22 Sex Patient Care team information Care Team Personnel Name: Trinity Lloyd MD Position: [facility] Outreach Member Role: Lifetime Consulting Physician Name: Carmita Enriquez RN Position: [facility] RN Member Role: Primary Care Nurse Name: Mattie Morris RN Position: [facility] RN Supv Member Role: Primary Care Nurse Name: Yoselyn Bradley RN Position: [facility] RN Member Role: Primary Care Nurse Name: Chari Grey NP Position: [facility] PCO Associate Professional Member Role: Lifetime Consulting Provider Address: Address: [address] [place] [address]- Name: Not on Staff, PCP Position: [facility] Physician (General Medicine) Member Role: PCP Name: Yariel Fuller RN Position: [facility] RN Member Role: Primary Care Nurse Name: Julius Stringer RN Position: [facility] RN Member Role: Primary Care Nurse Name: Shantell Carter Position: [facility] RN Member Role: Primary Care Nurse Name: Alexandra JC, Michelle Stout Position: [facility] Nurse Member Role: Primary Care Nurse Care Team Related Persons Name: ADRYAN GOVEA Address: [place] [address] [address] Name: TAMARA GOVEA Address: [address] [place] [address]
--- OUTSIDE RECORDS SUMMARY | 2023-07-07 08:49 | XMS_ITS | Continuity of Care Document ---
Author Name Unknown Organization [facility] Paulino Leif lt Address [address] [place] [address]- Care Team Providers Care Skin Carver Name Role Phone Ranjeet Rushing MD Primary Care Physician [phone] [facility]counter [facility] Date(s): 12/05/22 - 01/04/23 [facility] Adult [address] [place] [address]- Allergies, Adverse Reactions, Alerts Substance Reaction Severity [...] influenza virus vaccine, inactivated 3 09/14/09 Gi saarh SARS-CoV-2 (COVID-19) mRNA BNT-162b2 vac 06/12/21 Recorded [...] 07/19/08 Gi sarah 1Result Comment: [05/28/2017] [facility]: [id number] 2Location History: [facility] 3Admin Note: VIS GIVEN-DATED 04/04/09 4Admin Note: vis given 5Admin Note: VIS given 6Admin Note: VIS-GIVEN 7Location History: [facility] [place] [facility] 8Location History: [facility] 9Evelyne Comment: [10/17/2015] PER NICO AT [facility] 10Admin Note: VIS GIVEN 11Admin Note: [...] 11 Refills, Maintenance, 05/07/22 16:00:00 EDT, Powder, [facility]/pharmacy #[id number], 2 puffs Inhalation Every 6 hours,PRN:as needed, [...] Status: Ordered BD UF SHORT PEN NEEDLE [id number] BD UF SHORT PEN NEEDLE [id number], See Instructions, # 200 Unknown, 5 Refills, USE TO INJECT INSULIN TWICE A DAY, 160, cm, 11/27/21 14:08:00 EDT, Height, 74.8, kg, 11/01/21 15:05:00 EST, Dry Weight Start Date: 11/30/21 Status: Ordered colchicine 0.6 mg oral capsule 1 capsule = 0.6 mg, By Mouth, 2 times a day, # 20 capsule, 0 Refills, Maintenance, 12/31/22 10:10:00 EDT, Capsule, [facility]/pharmacy #[id number], Partial fill upon patient request if the [...] 11/28/22... Start Date: 12/13/22 Status: Ordered Pen [place], 31 G x 5 mm BD Ultra [...] 0 Refills, Maintenance, 11/28/22 13:19:00 EDT, Tablet, [facility]/pharmacy #[id number], Partial fill upon patient request if t... 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 2Carotid ultrasound 2016 showing bilateral noncritical carotid stenosis. 50-70% bilaterally. 3Per chart review meeting GFR criteria 4Per MOCA done at [facility] 5Patient's supervisor residential is [facility] and patient sees Dr. Gume Mart 6MOCA 20 Social History Social History Type Response Smoking Status Former smoker, quit more than 30 days ago; Other: QUIYT COUPLE YEARS AGO; entered on: 11/13/22 Sex Patient Care team information Care Team Personnel Name: Carmita Enriquez RN Position: [facility] RN Member Role: Primary Care Nurse Name: Mattie Morris RN Position: [facility] RN Supv Member Role: Primary Care Nurse Name: Ranjeet Rushing MD Position: [facility] Primary Care Physician Member Role: PCP Address: Address: [address] [place] [address]- Name: Yoselyn Bradley RN Position: [facility] RN Member Role: Primary Care Nurse Name: Chari Grey NP Position: [facility] PCO Associate Professional Member Role: Lifetime Consulting Provider Address: Address: [address] [place] [address] - Name: Yariel Fuller RN Position: [facility] RN Member Role: Primary Care Nurse Name: Julius Stringer RN Position: S RN Member Role: Primary Care Nurse Name: Shantell Carter Position: S RN Member Role: Primary Care Nurse Name: Michelle Morris RN Position: [facility] PCO RN Member Role: Primary Care Nurse Care Team Related Persons Name: ADYRAN GOVEA Address: [address] [facility] [address] [place] [address] Name: GOVEA TAMARA Address: [address] [place] [address]
--- OUTSIDE RECORDS SUMMARY | 2023-07-07 08:50 | XMS_ITS | Continuity of Care Document ---
Author Name Unknown Organization [facility] Address [address] [place] [address]- Care Team Providers Care Case Packer Name Role Phone Ranjeet Rushing MD Primary Care Physician Encounter [facility] Date(s): 01/23/23 - 02/22/23 [facility] [address] [place], [place] [address] Attending Physician: Admtr, Evans Admitting Physician: Admtr, [...] influenza virus vaccine, inactivated 1 05/28/17 Gi sraah influenza virus vaccine, inactivated 2 05/31/16 Re [...] 11 07/19/08 Gi sarah 1Result Comment: [05/28/2017] [facility]: [id number] 2Location History: [facility] 3Admin Note: VIS GIVEN-DATED 04/04/09 4Admin Note: vis given 5Admin Note: VIS given 6Admin Note: VIS-GIVEN 7Location History: [facility] 8Location History: [facility] 9Resesperanza Comment: [10/17/2015] PER NICO AT [facility] 10Admin Note: VIS GIVEN 11Admin Note: VIS [...] 2 Refills, Maintenance, 01/20/23 22:52:00 EDT, Powder, [facility]/pharmacy #[id number], 2 [...] 14:16:00 EDT, Route to Pharmacy Electronically, [facility], 161, cm, 02/20/23 15:50:00 EDT, Height, 77.2, kg, 11/13/22 13:42:00 EDT, Dry Weight Start Date: 02/21/23 Status: Ordered BD UF SHORT PEN NEEDLE [id number] BD UF SHORT PEN NEEDLE [id number], See Instructions, # 200 Unknown, 5 Refills, USE TO INJECT INSULIN TWICE A DAY, 160, cm, 11/27/21 14:08:00 EDT, Height, 74.8, kg, 11/01/21 15:05:00 EST, Dry Weight Start Date: 11/30/21 Status: Ordered colchicine 0.6 mg oral capsule 1 capsule = 0.6 mg, By Mouth, 2 times a day, # 20 capsule, 0 Refills, Maintenance, 12/31/22 10:10:00 EDT, Capsule, [facility]/pharmacy #[id number], Partial fill upon [...] 0 Refills, Maintenance, 02/21/23 14:16:00 EDT, [facility], 161, cm, 02/20/23 15:50:00 EDT, Height, 77.2, [...] Daily, 0 Refills, Maintenance, Ointment Start Date: 8/3/21 Status: Ordered Milk of Magnesia Liquid 30 [...] 11/28/22... Start Date: 12/13/22 Status: Ordered Pen [place], 31 G x 5 mm BD Ultra [...] 14:16:00 EDT, Route to Pharmacy Electronically, [facility], 161, cm, 02/20/23 15:50:00 EDT, Height, 77.2, [...] EDT, Route to Pharmacy Electronically, [facility], 161, cm, 02/20/23 15:50:00 EDT, Height, 77.2, kg, 11/13/22 13:42:00 EDT, Dry Weight Start Date: 02/21/23 Status: Ordered Trelegy Ellipta inhalation powder 1 puffs, Inhalation, Daily, at the same time every day, # 3 each, 1 Refills, Maintenance, 11/28/22 11:48:00 EDT, [facility], Partial fill upon patient request [...] 0 Refills, Maintenance, 02/21/23 14:16:00 EDT, [facility], 161, cm, 02/20/23 15:50:00 EDT, Height, 77.2, [...] (osteoarthritis), cervical Confirmed Active Osteoporosis Confirmed Active *[facility] [phone] 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 2Carotid ultrasound 2015 showing bilateral noncritical carotid stenosis. 50-70% bilaterally. 3Per chart review meeting GFR criteria 4Per MOCA done at [facility] 5Patient's meter installer is [facility] and patient sees Dr. Gume Mart 6MOCA 20 Social History Social History Type Response Smoking Status Former smoker, quit more than 30 days ago; Other: QUIYT COUPLE YEARS AGO; entered on: 11/13/22 Sex Patient Care team information Care Team Personnel Name: Trinity Lloyd MD Position: [facility] Outreach Member Role: Lifetime Consulting Physician Name: Carmita Enriquez RN Position: [facility] RN Member Role: Primary Care Nurse Name: Mattie Morris RN Position: [facility] RN Supv Member Role: Primary Care Nurse Name: Ranjeet Rushing MD Position: [facility] Physician - Primary Care Member Role: PCP Address: Address: [address] [place] [address] - Name: Yoselyn Bradley RN Position: [facility] RN Member Role: Primary Care Nurse Name: Chari Grey NP Position: [facility] PCO Associate Professional Member Role: Lifetime Consulting Provider Address: Address: [address] [place] [address] - Name: Yariel Fuller RN Position: [facility] RN Member Role: Primary Care Nurse Name: Julius Stringer RN Position: [facility] RN Member Role: Primary Care Nurse Name: Shantell Carter Position: [facility] RN Member Role: Primary Care Nurse Name: Michelle Morris RN Position: [facility] AMB Nurse Member Role: Primary Care Nurse Care Team Related Persons Name: ADRYAN GOVEA Address: home [address] [facility] [address] [place], [place] Name: TAMARA GOVEA Address: home [address] [facility] [address] [place] [address]
--- OUTSIDE RECORDS SUMMARY | 2023-07-07 08:50 | XMS_ITS | Continuity of Care Document ---
Author Name Unknown Organization [facility] Leif lt Address [address] [place] [address]- Care Team Providers Care Digital Manager Name Role Phone Ranjeet Rushing MD Primary [facility] Physician [facility]23 - 01/24/23 [facility] Adult [address] [place] [address]- Attending Physician: Chari Grey NP Referring Physician: [...] sarah 1Result Comment: [05/28/2017] [facility]: [id number] 2Location History: [facility] 3Admin Note: VIS GIVEN-DATED 04/04/09 4Admin Note: vis given 5Admin Note: VIS given 6Admin Note: VIS-GIVEN 7Location History: [facility] 8Location History: [facility] 9Evelyne Comment: [10/17/2015] PER NICO AT [facility] 10Admin Note: VIS GIVEN 11Admin Note: [...] 2 Refills, Maintenance, 01/20/23 22:52:00 EDT, Powder, [facility]/pharmacy #[id number], 2 puffs Inhalation Every 6 [...] Status: Ordered BD UF SHORT PEN NEEDLE [id number] BD UF SHORT PEN NEEDLE [id number], See Instructions, # 200 Unknown, 5 Refills, USE TO INJECT INSULIN TWICE A DAY, 160, cm, 11/27/21 14:08:00 EDT, Height, 74.8, kg, 11/01/21 15:05:00 EST, Dry Weight Start Date: 11/30/21 Status: Ordered colchicine 0.6 mg oral capsule 1 capsule = 0.6 mg, By Mouth, 2 times a day, # 20 capsule, 0 Refills, Maintenance, 12/31/22 10:10:00 EDT, Capsule, [facility]/pharmacy #[id number], Partial fill upon patient request [...] tablet, 5 Refills, Maintenance, 01/24/23 7:43:00 EDT, [id number], 161, cm, 01/23/23 12:40:00 EDT, Height, [...] 11/28/22... 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 2Carotid ultrasound 2015 showing bilateral noncritical carotid stenosis. 50-70% bilaterally. 3Per chart review meeting GFR criteria 4Per MOCA done at [facility] 5Patient's house supervisor is [facility] and patient sees Dr. Gume Mart 6MOCA 20 Vital Signs Most recent to oldest [Reference Range]: 1 Height 161 cm (01/17/23 10:51 AM) Weight 69.7 kg (01/17/23 10:51 AM) Oxygen Saturation [94-100 %] 94 % (01/17/23 10:51 AM) Pulse Rate [55-90 bpm] 88 bpm (01/17/23 10:51 AM) Body Mass Index [18.5-24.99 kg/m2] 26.89 kg/m2 *H* (01/17/23 10:51 AM) Blood Pressure [90-138/55-84 mm Hg] 128/ 50mm Hg (01/17/23 10:51 AM) Respiratory Rate [16-30 br/min] 16 br/mi n (01/17/23 10:51 AM) Temperature [96.8-100.4 DegF] 97.6 DegF (01/17/23 10:51 AM) Mode of Delivery (Oxygen) Room air (01/17/23 10:51 AM) Blood pressure sites Arm, left (01/17/23 10:51 AM) Temperature Route Oral (01/17/23 10:51 AM) Weight Obtained Via Standing scale (01/17/23 10:51 AM) Social History Social History Type Response Smoking Status Former smoker, quit more than 30 days ago; Other: QUIYT COUPLE YEARS AGO; entered on: 11/13/22 Sex Note * Diaz Geni: PERFORM, SIGN, VERIFY Event Display: Patient Education/Instruction Authored Date: [id number] [facility] *BMP So Paulino Douglas Clinical Summary Name RAFAEL GOVEA Age 72 Years 1950 PCP Kristan SUTTON, Ranjeet Beatty PCP Visit Date 01/17/2023 10:45:00 Additional Instructions: Scheduled Appointments?? Future Appointments ?*Pain??Management ?[address]??[place],??[place],??[address] ?Phone:??[phone]?Fax:??-- ?Appt. Date:??02/03/2023?10:00 AM ?Scheduled Provider:??Jessi SUTTON, Ronnie Ramirez Follow-Up Instructions ?? With: Address: When: Matilda LOZADA, Chari Santos [address] [place] [address] Road [place], [place] [address] [employer] ([employer] In 3 months Comments: 40 min Diagnosis Generalized anxiety disorder; Hyperlipidemia, unspecified; Age-related osteoporosis without currentpathological fracture; Excoriation (skin-picking) disorder; Other injury of unspecified body region, initial encounter; Type 2 diabetes mellitus without complications; Gout, unspecified; Nicotine dependence, cigarettes, uncomplicated; Type 2 diabetes mellitus with diabetic neuropathy, unspecified; Other specified soft tissue disorders; Chronic kidney disease, stage 3b; Type 2 diabetes mellitus with diabetic nephropathy; Essential (primary) hypertension; Dermatitis, unspecified; Major depressivedisorder, recurrent, in partial remission; Pain in unspecified toe(s); 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 Next Dose: Durable Medical Equipment (Pen Osborn, 31 G x 5 mm BD Ultra [...] Miscellaneous Rx (BD UF SHORT PEN NEEDLE [id number]) USE TO INJECT INSULIN TWICE A DAY. Refills: 5. Next Dose: Multivitamin (multivitamin Multiple Vitamins oral tablet) 1 tab(s) Oral Daily. Refills: 3. Next Dose: [place]-3 Polyunsaturated Fatty Acids (Fish Oil) 1,000 Milligram [...] Orders ?Foot Min 3 Views Left? Order Date:01/17/23?- Complete on or after?01/17/23 ?Comprehensive Metabolic Panel? Order Date:01/17/23?- Complete on or after?01/17/23 ?Uric Acid? Order Date:01/17/23?- Complete on or after?01/17/23 ?CBC w/ Differential? Order Date:01/17/23?- Complete on or after?01/17/23 Vital Signs Height 161 cm Weight 69.7 kg BMI 26.89 kg/m2 Blood Pressure 128 mm Hg/50 mm Hg Temperature 97.6 DegF Pulse Rate 88 bpm Respiratory Rate 16 br/min 02 Sat Mode of Delivery 94 %/Room air You can now view a summary of your hospital visit from the comfort of your home through a free online portal called [employer]. [employer] is a website that allows you to securely view your medical information including discharge summary, medications and follow-up visits. ??You can alsosend a secure electronic message to your doctor???s office to request appointments, renew medications or just ask a question. You can enroll at [email or web address] or register during your next office visit. [...] primary care provider, you may find a [facility] provider by calling [facility] [employer] at [phone]. For information about the plan of care [...] Name: Carmita Enriquez RN Position: [facility] RN Member Role: Primary Care Nurse Name: Mattie Morris RN Position: [facility] RN Supv Member Role: Primary Care Nurse Name: Ranjeet Rushing MD Position: [facility] Physician - Primary Care Member Role: PCP Address: Address: [address] [place] [address]- Name: Yoselyn Bradley RN Position: S RN Member Role: Primary Care Nurse Name: Chari Grey NP Position: [facility] PCO Associate Professional Member Role: Lifetime Consulting Provider Address: Address: [address] [place], [place] [address] [facility] [place] [address]- [place] Name: Yariel Fuller RN Position: [facility] RN Member Role: Primary Care Nurse Name: Julius Stringer RN Position: S RN Member Role: Primary Care Nurse Name: Shantell Carter Position: S RN Member Role: Primary Care Nurse Name: Michelle Morris RN Position: [facility] AMB Nurse Member Role: Primary Care Nurse Care Team Related Persons Name: ADRYAN GOVEA Address: home [address] [place] [address] Name: TAMARA GOVEA Address: [address] [facility] [place] [place] [address]
--- OUTSIDE RECORDS SUMMARY | 2023-07-07 08:51 | XMS_ITS | Continuity of Care Document ---
Author Name Unknown Organization [facility] Leif lt Address [address] [place] [address]- Care Team Providers Care Filenet Admin Name Role Phone Ranjeet Rushing MD Primary Care Physician [facility] 01[facility]10[facility]23 - 02/09/23 [facility] Adult [address] [place] [address]- Allergies, Adverse Reactions, Alerts Substance Reaction Severity [...] 07/19/08 Gi sarah 1Result Comment: [05/28/2017] HD [facility]: [id number] 2Location History: [facility] 3Admin Note: VIS GIVEN-DATED 04/04/09 4Admin Note: vis given 5Admin Note: VIS given 6Admin Note: VIS-GIVEN 7Location History: [facility] 8Location History: [facility] DR Seaman Comment: [10/17/2015] [facility] [...] 16:42:00 EDT, Route to Pharmacy Electronically, [facility], 161, cm, 02/04/23 15:03:00 EDT, Height, 77.2, kg, 11/13/22 13:42:00 EDT, Dry Weight Start Date: 02/04/23 Status: Ordered BD UF SHORT PEN NEEDLE [id number] BD UF SHORT PEN NEEDLE [id number], See Instructions, # 200 Unknown, 5 Refills, USE TO INJECT INSULIN TWICE A DAY, 160, cm, 11/27/21 14:08:00 EDT, Height, 74.8, kg, 11/01/21 15:05:00 EST, Dry Weight Start Date: 11/30/21 Status: Ordered colchicine 0.6 mg oral capsule 1 capsule = 0.6 mg, By Mouth, 2 times a day, # 20 capsule, 0 Refills, Maintenance, 12/31/22 10:10:00 EDT, Capsule, [facility]/pharmacy #[id number], Partial fill upon patient request if the [...] 16:42:00 EDT, Route to Pharmacy Electronically, [facility], 161, cm, 02/04/23 15:03:00 EDT, Height, 77.2, [...] 16:42:00 EDT, Route to Pharmacy Electronically, [facility], 161, cm, 02/04/23 15:03:00 EDT, Height, 77.2, [...] Dry Weight Start Date: 01/10/23 Status: Ordered Macrobid macrocrystals-monohydrate 100 mg oral capsule 1 capsule = 100 mg, By Mouth, 2 times a day, for 5 days, # 10 capsule, 0 Refills, Acute 02/10/23 13:41:00 EDT, 02/05/23 13:41:00 EDT, Capsule, [facility], Partial fill upon patient request if the prescription is for a schedule II opioid dr... Start Date: 02/05/23 Stop Date: 02/10/23 Status: Ordered magnesium oxide 400 mg oral [...] 11/28/22... Start Date: 12/13/22 Status: Ordered Pen [place], 31 G x 5 mm BD Ultra [...] 0 Refills, Maintenance, 11/28/22 13:19:00 EDT, Tablet, [facility]/pharmacy #[id number], Partial fill upon patient request if t... Start Date: 11/28/22 Status: Ordered simvastatin 10 mg oral tablet 1, tablet, By Mouth, Daily at bedtime, # 28 tablet, Refills 0, Maintenance, 02/04/23 16:42:00 EDT, Route to Pharmacy Electronically, [facility], 161, cm, 02/04/23 15:03:00 EDT, Height, 77.2, [...] 16:42:00 EDT, Route to Pharmacy Electronically, [facility], 161, cm, 02/04/23 15:03:00 EDT, Height, 77.2, [...] 16:42:00 EDT, Route to Pharmacy Electronically, [facility], 161, cm, 02/04/23 15:03:00 EDT, Height, 77.2, [...] 0 Refills, Maintenance, 02/04/23 16:42:00 EDT, [facility], 161, cm, 02/04/23 15:03:00 EDT, Height, 77.2, [...] Active *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 2Carotid ultrasound 2016 showing bilateral noncritical carotid stenosis. 50-70% bilaterally. 3Per chart review meeting GFR criteria 4Per MOCA done at [facility] 5Patient's covering and lining supervisor is [facility] and patient sees Dr. Gume Mart 6MOCA 20 Social History Social History Type Response Smoking Status Former smoker, quit more than 30 days ago; Other: QUIYT COUPLE YEARS AGO; entered on: 11/13/22 Sex Patient Care team information Care Team Personnel Name: Carmita Enriquez RN Position: [facility] RN Member Role: Primary Care Nurse Name: Mattie Morris RN Position: [facility] RN Supv Member Role: Primary Care Nurse Name: Ranjeet Rushing MD Position: [facility] Physician - Primary Care Member Role: PCP Address: Address: [address] [place] [address] - Name: Yoselyn Bradley RN Position: [facility] RN Member Role: Primary Care Nurse Name: Chari Grey NP Position: [facility] PCO Associate Professional Member Role: Lifetime Consulting Provider Address: Address: [address] [place] [address] - Name: Yariel Fuller RN Position: [facility] RN Member Role: Primary Care Nurse Name: Julius Stringer RN Position: [facility] RN Member Role: Primary Care Nurse Name: Shantell Carter Position: [facility] RN Member Role: Primary Care Nurse Name: Michelle Morris RN Position: [facility] AMB Nurse Member Role: Primary Care Nurse Care Team Related Persons Name: ADRYAN GOVEA Address: home [address] [facility] [address] [place], [place] Name: TAMARA GOVEA Address: home [address] [facility] [address] [place] [address]
--- OUTSIDE RECORDS SUMMARY | 2023-07-07 08:52 | XMS_ITS | Continuity of Care Document ---
Author Name Unknown Organization [facility] Leif lt Address [address] [place] [address]- Care Team Providers Care Peanut Sheller Name Role Phone Ranjeet Rushing MD Primary Care Physician [facility]): 11/26/22 - 12/26/22 [facility] Adult [address] [place] [address]- Allergies, Adverse Reactions, Alerts Substance Reaction Severity [...] 11 07/19/08 Gi sarah 1Result Comment: [05/28/2017] [facility]: [id number] 2Location History: [facility] 3Admin Note: VIS GIVEN-DATED 04/04/09 4Admin Note: vis given 5Admin Note: VIS given 6Admin Note: VIS-GIVEN 7Location History: [facility] 8Location History: [facility] 9Evelyne Comment: [10/17/2015] PER NICO AT [facility] 10Admin Note: VIS GIVEN 11Admin Note: VIS [...] Status: Ordered BD UF SHORT PEN NEEDLE [id number] BD UF SHORT PEN NEEDLE [id number], See Instructions, # 200 Unknown, 5 Refills, [...] 11/28/22... Start Date: 12/13/22 Status: Ordered Pen [place], 31 G x 5 mm BD Ultra [...] 0 Refills, Maintenance, 11/28/22 13:19:00 EDT, Tablet, [facility]/pharmacy #[id number], Partial fill upon patient request if t... 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 2Carotid ultrasound 2016 showing bilateral noncritical carotid stenosis. 50-70% bilaterally. 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 and patient sees Dr. [...] Care Nurse Name: Ranjeet Rushing MD Position: [facility] Primary Care Physician Member Role: PCP Address: Address: [address] [place] [address]- [place] Name: Yoselyn Bradley RN Position: S RN Member Role: Primary Care Nurse Name: Chari Grey NP Position: [facility] PCO Associate Professional Member Role: Lifetime Consulting Provider Address: Address: [address] [place] [address]- [place] Name: Yariel Fuller RN Position: S RN Member Role: Primary Care Nurse Name: Julius Stringer RN Position: S RN Member Role: Primary Care Nurse Name: Shantell Carter Position: S RN Member Role: Primary Care Nurse Name: Michelle Morris RN Position: [facility] PCO RN Member Role: Primary Care Nurse Care Team Related Persons Name: ADRYAN GOVEA Address: home [address] [place] [address] Name: TAMARA GOVEA Address: home [address] [facility] [address] [place] [address]
--- OUTSIDE RECORDS SUMMARY | 2023-07-07 08:52 | XMS_ITS | Continuity of Care Document ---
Author Name Unknown Organization [facility] Leif lt Address [address] [place] [address]- Care Team Providers Care Cloth Calender Name Role Phone Ranjeet Rushing MD Primary Care Physician [phone] [facility] 12/18/22 - 01/17/23 [facility] Adult [address] [place] [address]- Allergies, Adverse Reactions, Alerts Substance Reaction Severity [...] 1Result Comment: [05/28/2017] HD [facility]: [id number] 2Location History: [facility] 3Admin Note: VIS GIVEN-DATED 04/04/09 4Admin Note: vis given 5Admin Note: VIS given 6Admin Note: VIS-GIVEN 7Location History[place] [facility] 8Location History: [facility] DR Seaman Comment: [10/17/2015] PER NICO AT [facility] 10Admin Note: VIS GIVEN 11Admin Note: [...] 11 Refills, Maintenance, 05/07/22 16:00:00 EDT, Powder, [facility]/pharmacy #[id number], 2 [...] Status: Ordered BD UF SHORT PEN NEEDLE [id number] BD UF SHORT PEN NEEDLE [id number], See Instructions, # 200 Unknown, 5 Refills, USE TO INJECT INSULIN TWICE A DAY, 160, cm, 11/27/21 14:08:00 EDT, Height, 74.8, kg, 11/01/21 15:05:00 EST, Dry Weight Start Date: 11/30/21 Status: Ordered colchicine 0.6 mg oral capsule 1 capsule = 0.6 mg, By Mouth, 2 times a day, # 20 capsule, 0 Refills, Maintenance, 12/31/22 10:10:00 EDT, Capsule, [facility]/pharmacy #[id number], Partial fill upon patient request if the [...] 11/28/22... 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 2Carotid ultrasound 2016 showing bilateral noncritical carotid stenosis. 50-70% bilaterally. 3Per chart review meeting GFR criteria 4Per [place] [facility] 5Patient's glass vial filler is [facility] and patient sees Dr. Gume Mart 6MOCA 20 Social History Social History Type Response Smoking Status Former smoker, quit more than 30 days ago; Other: QUIYT COUPLE YEARS AGO; entered on: 11/13/22 Sex Patient Care team information Care Team Personnel Name: Carmita Enriquez RN Position: [facility] RN Member Role: Primary Care Nurse Name: Mattie Morris RN Position: [facility] RN Supv Member Role: Primary Care Nurse Name: Ranjeet Rushing MD Position: [facility] Physician - Primary Care Member Role: PCP Address: Address: [address] [place] [address] - Name: Yoselyn Bradley RN Position: [facility] RN Member Role: Primary Care Nurse Name: Chari Grey NP Position: [facility] PCO Associate Professional Member Role: Lifetime Consulting Provider Address: Address: [address] [place] [address] - Name: Yariel Fuller RN Position: [facility] RN Member Role: Primary Care Nurse Name: Julius Stringer RN Position: S RN Member Role: Primary Care Nurse Name: Shantell Carter Position: [facility] RN Member Role: Primary Care Nurse Name: Michelle Morris RN Position: [facility] PCO RN Member Role: Primary Care Nurse Care Team Related Persons Name: ADRYAN GOVEA Address: [place] [address] [address] Name: TAMARA GOVEA Address: [address] [address]
--- OUTSIDE RECORDS SUMMARY | 2023-07-07 08:53 | XMS_ITS | Continuity of Care Document ---
Author Name Unknown Organization [facility] Leif lt Address [address] [place] [address]- Care Team Providers Care Jail Manager Name Role Phone Ranjeet Rushing MD Primary Care Physician [facility]23 - 02/17/23 [facility] Adult [address] [place] [address]- Allergies, Adverse Reactions, Alerts Substance Reaction Severity [...] 07/19/08 Gi sarah 1Result Comment: [05/28/2017] HD [facility]: [id number] 2Location History: [facility] 3Admin Note: VIS GIVEN-DATED 04/04/09 4Admin Note: vis given 5Admin Note: VIS given 6Admin Note: VIS-GIVEN 7Location History: [facility] 8Location History: [facility] DR Seaman Comment: [10/17/2015] PER NICO AT [facility] 10Admin Note: VIS GIVEN [...] 2 Refills, Maintenance, 01/20/23 22:52:00 EDT, Powder, [facility] [...] 16:42:00 EDT, Route to Pharmacy Electronically, [facility], 161, cm, 02/04/23 15:03:00 EDT, Height, 77.2, kg, 11/13/22 13:42:00 EDT, Dry Weight Start Date: 02/04/23 Status: Ordered BD UF SHORT PEN NEEDLE [id number] BD UF SHORT PEN NEEDLE [id number], See Instructions, # 200 Unknown, 5 Refills, USE TO INJECT INSULIN TWICE A DAY, 160, cm, 11/27/21 14:08:00 EDT, Height, 74.8, kg, 11/01/21 15:05:00 EST, Dry Weight Start Date: 11/30/21 Status: Ordered colchicine 0.6 mg oral capsule 1 capsule = 0.6 mg, By Mouth, 2 times a day, # 20 capsule, 0 Refills, Maintenance, 12/31/22 10:10:00 EDT, Capsule, [facility]/pharmacy #[id number], Partial fill upon patient request if the [...] 0 Refills, Maintenance, 02/04/23 16:42:00 EDT, [facility], 161, cm, 02/04/23 15:03:00 EDT, Height, [...] 11/28/22... Start Date: 12/13/22 Status: Ordered Pen [place], 31 G x 5 mm BD Ultra [...] 0 Refills, Maintenance, 11/28/22 13:19:00 EDT, Tablet, [facility]/pharmacy #[id number], Partial fill upon patient request if t... Start Date: 11/28/22 Status: Ordered simvastatin 10 mg oral tablet 1, tablet, By Mouth, Daily at bedtime, # 28 tablet, Refills 0, Maintenance, 02/04/23 16:42:00 EDT, Route to Pharmacy Electronically, [facility], 161, cm, 02/04/23 15:03:00 EDT, Height, [...] 16:42:00 EDT, Route to Pharmacy Electronically, [facility], 161, cm, 02/04/23 15:03:00 EDT, Height, [...] 0 Refills, Maintenance, 02/04/23 16:42:00 EDT, 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 2Carotid ultrasound 2016 showing bilateral noncritical carotid stenosis. 50-70% bilaterally. 3Per chart review meeting GFR criteria 4Per M[place]A done at [facility] 5Patient's route sales specialist is [facility] and patient sees Dr. Gume Mart [...] Position: [facility] RN Supv Member Role: Primary Care Nurse Name: Ranjeet Rushnig MD Position: [facility] Physician - Primary Care Member Role: PCP Address: Address: [address] [place] [address]- [place] Name: Yoselyn Bradley RN Position: [facility] RN Member Role: Primary Care Nurse Name: Chari Grey NP Position: [facility] PCO Associate Professional Member Role: Lifetime Consulting Provider Address: Address: [address] [place] [address]- [place] Name: Yariel Fuller RN Position: [facility] [...] Persons Name: ADRYAN GOVEA Address: home [address] [facility] [address] [place] [address] Name: TAMARA GOVEA Address: [address] [place] [address]
--- OUTSIDE RECORDS SUMMARY | 2023-07-07 08:53 | XMS_ITS | Continuity of Care Document ---
Author Name Unknown Organization [facility] Address [address] [facility] [place] [address] [place] [address]- Care Team Providers Care Rn Perioperative Name Role Phone Kristan SUTTON, Ranjeet Beatty Primary Care Physician [phone] Encounter 12/13/22 - 12/20/22 [facility] [address] [facility], [address] [place] [address]- Attending Physician: Ranjeet Rushing MD Admitting Physician: [...] 11 07/19/08 Jennifer smith 1Result Comment: [05/28/2017] [facility]: [id number] 2Location History: [facility] 3Admin Note: VIS GIVEN-DATED 04/04/09 4Admin Note: vis given 5Admin Note: VIS given 6Admin Note: VIS-GIVEN 7Location History: [facility] 8Location History: [facility] DR Seaman Comment: [10/17/2015] PER NICO AT [facility] 10Admin Note: VIS GIVEN 11Admin Note: VIS [...] 11 Refills, Maintenance, 05/07/22 16:00:00 EDT, Powder, [facility]/pharmacy [...] Status: Ordered BD UF SHORT PEN NEEDLE [id number] BD UF SHORT PEN NEEDLE [id number], See Instructions, # 200 Unknown, 5 Refills, [...] 11/28/22... Start Date: 12/13/22 Status: Ordered Pen [place], 31 G x 5 mm BD Ultra [...] Refills, Maintenance, 11/28/22 13:19:00 EDT, Tablet, [id number], Partial fill upon patient request if t... 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 2Carotid ultrasound 2016 showing bilateral noncritical carotid stenosis. 50-70% bilaterally. 3Per chart review meeting GFR criteria 4Per MOCA done at [facility] 5[facility] and patient sees Dr. Gume Mart 6MOCA 20 Results Radiology Reports * Exam Date Time Procedure Performing Provider Status 12/13/22 4:36 PM MM Digital Mammo Screening Cat Taylor; Nadine (Verified) Notes: (MM Digital Mammo Screening) Reason For Exam: Z12.31 SCREEN RESULT: MM Digital Mammo Screening PROCEDURE: MM Digital Mammo Screening INDICATION: Screening for breast cancer. No known palpable abnormalities. COMPARISON: 12/07/2021 TECHNIQUE: Full-field digital CC and MLO 3D tomosynthesis images of both breasts were acquired. Computer-aided detection (CAD) was utilized in the interpretation of this study. DENSITY: The breast tissue contains scattered areas of fibroglandular density. FINDINGS: No suspicious masses, suspicious microcalcifications, or areas of architectural distortion are seen in either breast to suggest malignancy. There is stable extensive vascular calcification bilaterally along with a few other stable scattered microcalcifications and macrocalcifications. IMPRESSION: No mammographic evidence of malignancy. RECOMMENDATION: Routine mammographic screening BI-RADS: 2 (Benign) Lay letter mailed to patient WSN: [id number] Ordering Physician: Ranjeet Rushing Dictated By: Cecil Pinedo MD Dictated Date/Time: 12/13/22 4:55 pm Reviewed By: Cecil Pinedo MD Signed By: Cecil Pinedo MD Signed Date/Time: 12/13/22 4:55 pm Transcribed By: JOSE Project Builder Date/Time: 12/13/22 4:50 pm Birads: Social History Social History Type Response Smoking Status Former smoker, quit more than 30 days ago; Other: QUIYT COUPLE YEARS AGO; entered on: 11/13/22 Sex MG Breast Screening * BHSPowerscribe , CIS S: TRANSCRIBE Cecil Pinedo MD: VERIFY Event Display: Result: Authored Date: [id number] PROCEDURE: MM Digital Mammo Screening INDICATION: Screening for breast cancer. No known palpable abnormalities. COMPARISON: 12/07/2021 TECHNIQUE: Full-field digital CC and MLO 3D tomosynthesis images of both breasts were acquired. Computer-aided detection (CAD) was utilized in the interpretation of this study. DENSITY: The breast tissue contains scattered areas of fibroglandular density. FINDINGS: No suspicious masses, suspicious microcalcifications, or areas of architectural distortion are seen in either breast to suggest malignancy. There is stable extensive vascular calcification bilaterally along with a few other stable scattered microcalcifications and macrocalcifications. IMPRESSION: No mammographic evidence of malignancy. RECOMMENDATION: Routine mammographic screening BI-RADS: 2 (Benign) Lay letter mailed to patient WSN: [id number] Ordering Physician: Ranjeet Rushing Dictated By: Cecil Pinedo MD Dictated Date/Time: 12/13/22 4:55 pm Reviewed By: Cecil Pinedo MD Signed By: Cecil Pinedo MD Signed Date/Time: 12/13/22 4:55 pm Transcribed By: JOSE Project Builder Date/Time: 12/13/22 4:50 pm Birads: Patient Care team information Care Team Personnel Name: Carmita Enriquez RN Position: [facility] RN Member Role: Primary Care Nurse Name: Mattie Morris RN Position: [facility] RN Supv Member Role: Primary Care Nurse Name: Ranjeet Rushing MD Position: [facility] Primary Care Physician Member Role: PCP Address: Address: [address] [place] [address]- Name: Yoselyn Bradley RN Position: S RN Member Role: Primary Care Nurse Name: Chari Grey NP Position: [facility] PCO Associate Professional Member Role: Lifetime Consulting Provider Address: Address: [address] [place] [address]- Name: Yariel Fuller RN Position: S RN Member Role: Primary Care Nurse Name: Julius Stringer RN Position: S RN Member Role: Primary Care Nurse Name: Shantell Carter Position: S RN Member Role: Primary Care Nurse Name: Michelle Morris RN Position: [facility] PCO RN Member Role: Primary Care Nurse Care Team Related Persons Name: JEFERSON ADRYAN Address: home [address] [facility] 24 [place] [address] Name: TAMARA GOVEA Address: [place] [address] [address]
--- OUTSIDE RECORDS SUMMARY | 2023-07-07 08:53 | XMS_ITS | Continuity of Care Document ---
Author Name Unknown Organization [facility] Leif lt Address [address] [place] [address]- Care Team Providers Care Mastic Man Name Role Phone Ranjeet Rushing MD Primary Care Physician [facility]23 - 02/19/23 [facility] Adult [address] [place] [address]- Allergies, Adverse Reactions, Alerts Substance Reaction Severity Status Lac-Hydrin Active Latex Active Benadryl Active Ambien Active Immunizations Given and Recorded [...] 07/19/08 Gi sarah 1Result Comment: [05/28/2017] HD [facility]: [id number] 2Location History: [facility] 3Admin Note: VIS GIVEN-DATED 04/04/09 4Admin Note: vis given 5Admin Note: VIS given 6Admin Note: VIS-GIVEN 7Location History: [facility] 8Location History: [facility] 9Resesperanza Comment: [10/17/2015] PER NICO AT [facility] 10Admin Note: VIS GIVEN 11Admin [...] 2 Refills, Maintenance, 01/20/23 22:52:00 EDT, Powder, [facility]/pharmacy #[id number], 2 puffs Inhalation [...] 16:42:00 EDT, Route to Pharmacy Electronically, [facility], 161, cm, 02/04/23 15:03:00 EDT, Height, 77.2, kg, 11/13/22 13:42:00 EDT, Dry Weight Start Date: 02/04/23 Status: Ordered BD UF SHORT PEN NEEDLE [id number] BD UF SHORT PEN NEEDLE [id number], See Instructions, # 200 Unknown, 5 Refills, USE TO INJECT INSULIN TWICE A DAY, 160, cm, 11/27/21 14:08:00 EDT, Height, 74.8, kg, 11/01/21 15:05:00 EST, Dry Weight Start Date: 11/30/21 Status: Ordered colchicine 0.6 mg oral capsule 1 capsule = 0.6 mg, By Mouth, 2 times a day, # 20 capsule, 0 Refills, Maintenance, 12/31/22 10:10:00 EDT, Capsule, [facility]/pharmacy #[id number], Partial fill upon patient request if [...] EDT, Route to Pharmacy Electronically, [facility], 161, cm, 02/04/23 15:03:00 EDT, Height, [...] 0 Refills, Maintenance, 02/04/23 16:42:00 EDT, [facility], 161, cm, 02/04/23 15:03:00 EDT, Height, [...] 11/28/22... Start Date: 12/13/22 Status: Ordered Pen [place], 31 G x 5 mm BD Ultra [...] 0 Refills, Maintenance, 11/28/22 13:19:00 EDT, Tablet, [facility]/pharmacy #[id number], Partial fill upon patient request if t... Start Date: 11/28/22 Status: Ordered simvastatin 10 mg oral tablet 1, tablet, By Mouth, Daily at bedtime, # 28 tablet, Refills 0, Maintenance, 02/04/23 16:42:00 EDT, Route to Pharmacy Electronically, [facility], 161, cm, 02/04/23 15:03:00 EDT, Height, [...] 16:42:00 EDT, Route to Pharmacy Electronically, [facility], 161, cm, 02/04/23 15:03:00 EDT, Height, [...] a schedule II opioid drug., 161, cm, 04/06/23... 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 2Carotid ultrasound 2016 showing bilateral noncritical carotid stenosis. 50-70% bilaterally. 3Per chart review meeting GFR criteria 4Per [place]A done at [facility] 5Patient's pump press operator is [facility] and patient sees Dr. Gume Mart 6MOCA 20 Social History Social History Type Response Smoking Status Former smoker, quit more than 30 days ago; Other: QUIYT COUPLE YEARS AGO; entered on: 11/13/22 Sex Patient Care team information Care Team Personnel Name: Trinity Lloyd MD Position: [facility] Outreach Member Role: Lifetime Consulting Physician Name: Carmita Enriquez RN Position: [facility] RN Member Role: Primary Care Nurse Name: Mattie Morris RN Position: [facility] RN Supv Member Role: Primary Care Nurse Name: Ranjeet Rushing MD Position: [facility] Physician - Primary Care Member Role: PCP Address: Address: [address] [place] [address] [place] [address]- [place] Name: Yoselyn Bradley RN Position: [facility] RN Member Role: Primary Care Nurse Name: Chari Grey NP Position: [facility] PCO Associate Professional Member Role: Lifetime Consulting Provider Address: Address: [address] [place] [phone]- [place] Name: Yariel Fuller RN Position: [facility] RN Member Role: Primary Care Nurse Name: Julius Stringer RN Position: [facility] RN Member Role: Primary Care Nurse Name: Shantell Carter Position: [facility] RN Member Role: Primary Care Nurse Name: Michelle Morris RN Position: [facility] AMB Nurse Member Role: Primary Care Nurse Care Team Related Persons Name: ADRYAN GOVEA Address: home [address] [facility] 24 [place] [address] Name: TAMARA GOVEA Address: [address] [address]
--- OUTSIDE RECORDS SUMMARY | 2023-07-07 08:53 | XMS_ITS | Continuity of Care Document ---
Author Name Unknown Organization [facility] Leif lt Address [address] [place] [address]- Care Team Providers Care Fire Production Operator Name Role Phone Ranjeet Rushing MD Primary Care Physician [phone] [facility]23 - 02/17/23 [facility] Adult [address] [place] [address]- Allergies, Adverse Reactions, Alerts Substance Reaction Severity [...] 07/19/08 Gi sarah 1Result Comment: [05/28/2017] [facility]NOTE 2]: [id number] 2Location History: [facility] 3Admin Note: VIS GIVEN-DATED 04/04/09 4Admin Note: vis given 5Admin Note: VIS given 6Admin Note: VIS-GIVEN 7Location History: [facility] 8Location History: [facility] DR Seaman Comment: [10/17/2015] PER NICO AT [facility] 10Admin Note: VIS GIVEN 11Admin Note: VIS [...] 2 Refills, Maintenance, 01/20/23 22:52:00 EDT, Powder, [facility]/pharmacy #[id number], 2 [...] 16:42:00 EDT, Route to Pharmacy Electronically, [facility], 161, cm, 02/04/23 15:03:00 EDT, Height, 77.2, kg, 11/13/22 13:42:00 EDT, Dry Weight Start Date: 02/04/23 Status: Ordered BD UF SHORT PEN NEEDLE [id number] BD UF SHORT PEN NEEDLE [id number], See Instructions, # 200 Unknown, 5 Refills, USE TO INJECT INSULIN TWICE A DAY, 160, cm, 11/27/21 14:08:00 EDT, Height, 74.8, kg, 11/01/21 15:05:00 EST, Dry Weight Start Date: 11/30/21 Status: Ordered colchicine 0.6 mg oral capsule 1 capsule = 0.6 mg, By Mouth, 2 times a day, # 20 capsule, 0 Refills, Maintenance, 12/31/22 10:10:00 EDT, Capsule, [facility]/pharmacy #[id number], Partial fill upon patient request if the [...] 0 Refills, Maintenance, 02/04/23 16:42:00 EDT, [facility], 161, cm, 02/04/23 15:03:00 EDT, [...] 11/28/22... Start Date: 12/13/22 Status: Ordered Pen [place], 31 G x 5 mm BD Ultra [...] 0 Refills, Maintenance, 11/28/22 13:19:00 EDT, Tablet, [facility]/pharmacy #[id number], Partial fill upon patient request if t... Start Date: 11/28/22 Status: Ordered simvastatin 10 mg oral tablet 1, tablet, By Mouth, Daily at bedtime, # 28 tablet, Refills 0, Maintenance, 02/04/23 16:42:00 EDT, Route to Pharmacy Electronically, [facility], 161, cm, 02/04/23 15:03:00 EDT, [...] 16:42:00 EDT, Route to Pharmacy Electronically, [facility], 161, cm, 02/04/23 15:03:00 EDT, [...] 0 Refills, Maintenance, 02/04/23 16:42:00 EDT, [facility], 161, cm, 02/04/23 15:03:00 EDT, [...] Active Osteoporosis Confirmed Active *[facility] [phone] 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 2Carotid ultrasound 2016 showing bilateral noncritical carotid stenosis. 50-70% bilaterally. 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 and patient sees Dr. Gume Mart 6MOCA 20 Social History Social History Type Response Smoking Status Former smoker, quit more than 30 days ago; Other: QUIYT COUPLE YEARS AGO; entered on: 11/13/22 Sex Patient Care team information Care Team Personnel Name: Trinity Lloyd MD Position: [facility] Outreach Member Role: Lifetime Consulting Physician Name: Carmita Enriquez RN Position: [facility] RN Member Role: Primary Care Nurse Name: Mattie Morris RN Position: [facility] RN Supv Member Role: Primary Care Nurse Name: Ranjeet Rushing MD Position: [facility] Physician - Primary Care Member Role: PCP Address: Address: [address] [place] [address]- [place] Name: Yoselyn Bradley RN Position: [facility] RN Member Role: Primary Care Nurse Name: Chari Grey NP Position: [facility] PCO Associate Professional Member Role: Lifetime Consulting Provider Address: Address: [address] [place] [phone]- [place] Name: Yariel Fuller RN Position: [facility] RN Member Role: Primary Care Nurse Name: Julius Stringer RN Position: [facility] RN Member Role: Primary Care Nurse Name: Shantell Carter Position: [facility] RN Member Role: Primary Care Nurse Name: Michelle Morris RN Position: [facility] AMB Nurse Member Role: Primary Care Nurse Care Team Related Persons Name: ADRYAN GOVEA Address: home [address] [facility] 24 [place] [address] Name: TAMARA GOVEA Address: [address] [place] [address]
--- OUTSIDE RECORDS SUMMARY | 2023-07-07 08:53 | XMS_ITS | Continuity of Care Document ---
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 Date(s): 02/20/23 - 02/27/23 [facility] Adult [address] [place] [address]- Encounter Diagnosis Diabetic neuropathy(Discharge Diagnosis) - 02/20/23 Attending Physician: Matilda LOZADA, Chari Santos Allergies, [...] 07/19/08 Gi sarah 1Result Comment: [05/28/2017] [facility]: [id number] 2Location History: [facility] 3Admin Note: VIS GIVEN-DATED 04/04/09 4Admin Note: vis given 5Admin Note: VIS given 6Admin Note: VIS-GIVEN 7Location History: [facility] 8Location History: [facility] DEANGELO HOOK 9Resesperanza Comment: [10/17/2015] PER NICO AT [facility] [...] 14:16:00 EDT, Route to Pharmacy Electronically, [facility], 161, cm, 02/20/23 15:50:00 EDT, Height, 77.2, kg, 11/13/22 13:42:00 EDT, Dry Weight Start Date: 02/21/23 Status: Ordered BD UF SHORT PEN NEEDLE 8BCL36A BD UF SHORT PEN NEEDLE 6PGG74M, See Instructions, # 200 Unknown, 5 Refills, [...] 14:16:00 EDT, Route to Pharmacy Electronically, [facility], 161, cm, 02/20/23 15:50:00 EDT, Height, [...] 0 Refills, Maintenance, 02/21/23 14:16:00 EDT, [facility], 161, cm, 02/20/23 15:50:00 EDT, Height, [...] 11/28/22... Start Date: 12/13/22 Status: Ordered Pen [place], 31 G x 5 mm BD Ultra [...] tablet, 1 Refills, Maintenance, 02/20/23 16:07:00 EDT, Tablet, [facility], Partial fill upon patient request if th... Start Date: 02/20/23 Status: Ordered simvastatin 10 mg oral tablet 1, tablet, By Mouth, Daily at bedtime, # 28 tablet, Refills 0, Maintenance, 02/21/23 14:16:00 EDT, Route to Pharmacy Electronically, [facility], 161, cm, 02/20/23 15:50:00 EDT, Height, 77.2, [...] 14:16:00 EDT, Route to Pharmacy Electronically, [facility], 161, cm, 02/20/23 15:50:00 EDT, Height, [...] 14:16:00 EDT, Route to Pharmacy Electronically, [facility], 161, cm, 02/20/23 15:50:00 EDT, [...] 0 Refills, Maintenance, 02/21/23 14:16:00 EDT, [facility], 161, cm, 02/20/23 15:50:00 EDT, Height, [...] (osteoarthritis), cervical Confirmed Active Osteoporosis Confirmed Active *[facility] [phone] [employer] Alpa Armstrong Confirmed Active Picking 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 2Carotid ultrasound 2016 showing bilateral noncritical carotid stenosis. 50-70% bilaterally. 3Per chart review meeting GFR criteria 4Per MOCA done at [facility] 5Patient's storage management consultant is [facility] and patient sees Dr. Gume Mart 6MOCA 20 Diagnosis Diagnosis Type Effective Dates Health Status Clinical Service Informant Diabetic neuropathy Discharge Diagnosis 02/20/23 Vital Signs Most recent to oldest [Reference Range]: 1 Height 161 cm (02/20/23 3:50 PM) Weight 67.9 kg (02/20/23 3:50 PM) Oxygen Saturation [94-100 %] 96 % (02/20/23 3:50 PM) Pulse Rate [55-90 bpm] 100 bpm *H* (02/20/23 3:50 PM) Body Mass Index [18.5-24.99 kg/m2] 26.19 kg/m2 *H* (02/20/23 3:50 PM) Blood Pressure [90-138/55-84 mm Hg] 132/ 78mm Hg (02/20/23 3:50 PM) Respiratory Rate [16-30 br/min] 16 br/mi n (02/20/23 3:50 PM) Temperature [96.8-100.4 DegF] 98.0 DegF (02/20/23 3:50 PM) Mode of Delivery (Oxygen) Room air (02/20/23 3:50 PM) Blood pressure sites Arm, right (02/20/23 3:50 PM) Temperature Route Oral (02/20/23 3:50 PM) Weight Obtained Via Standing scale (02/20/23 3:50 PM) Social History Social History Type Response Smoking Status Former smoker, quit more than 30 days ago; Other: QUIYT COUPLE YEARS AGO; entered on: 11/13/22 Sex Note * Rebekah Hartley: PERFORM, SIGN, VERIFY Event Display: Patient Education/Instruction Authored Date: [id number] [facility] *BMP So Paulino Douglas Clinical Summary Name RAFAEL GOVEA Age 72 Years 1950 PCP Kristan SUTTON, Ranjeet Beatty PCP Visit Date 02/20/2023 15:29:00 Additional Instructions: Scheduled Appointments?? Future Appointments ?*Pain??Management ?[address]??[place],??[place],??[address] ?Phone:??[phone]?Fax:??-- ?Appt. Date:??03/04/2023?8:40 AM ?Scheduled Provider:??Magnolia Carolina MD ?*BMP??So??Paulino??Adlt ?[address],??[place],??[address] ?Phone:??--?Fax:??-- ?Appt. Date:??04/01/2023?3:20 PM ?Scheduled Provider:??Matilda LOZADA , Chari Santos ?*BMP??So??Paulino??Adlt ?[address],??[place],??[address] ?Phone:??--?Fax:??-- ?Appt. Date:??04/22/2023?9:10 AM ?Scheduled Provider:??Chari Grey NP Follow-Up Instructions ?? With: Address: When: Chari Grey NP [address] [facility] [place] [id number] Business (1) In 1 month Comments: end of day Diagnosis Medications: Please continue your medications until treatment is completed or stopped by your provider. Discuss any questions related to medications with your provider. Medications to Continue Taking That Have Changed [facility], [address] [place] [phone], [phone] - semaglutide (semaglutide 7 mg oral tablet) 1 tab(s) Oral Daily. take at least 30 minutes before first food, beverage, or other oral meds BUBBLE PACK. Refills: 1. Next Dose: Medications to Continue [...] 11. Next Dose: Durable Medical Equipment (Pen [place], 31 G x 5 mm BD Ultra Fine III) To inject insulin BID for DMII E11.9. Refills: 5. Next Dose: Fluoxetine (FLUoxetine 20 mg oral capsule) 3 capsule Oral Daily. Refills: 0. Next Dose: fluticasone/umeclidinium/vilanterol (Trelegy Ellipta inhalation powder) [...] Miscellaneous Rx (BD UF SHORT PEN NEEDLE [id number]) USE TO INJECT INSULIN TWICE A DAY. Refills: 5. Next Dose: Miscellaneous Rx (VITAMIN D3 1,000 UNIT SOFTGEL) 1 capsule Oral Daily. Refills: 0. Next Dose: Multivitamin (multivitamin Multiple Vitamins oral tablet) 1 tab(s) Oral Daily. Refills: 3. Next Dose: Scio-3 Polyunsaturated Fatty Acids (Fish Oil) 1,000 Milligram [...] Orders ?No future orders Vital Signs Height 161 cm Weight 67.9 kg BMI 26.19 kg/m2 Blood Pressure 132 mm Hg/78 mm Hg Temperature 98.0 DegF Pulse Rate 100 bpm Respiratory Rate 16 br/min 02 Sat Mode of Delivery 96 %/Room air You can now view a summary of your hospital visit from the comfort of your home through a free online portal called HangIt. HangIt is a website that allows you to securely view your medical information including discharge summary, medications and follow-up visits. ??You can alsosend a secure electronic message to your doctor???s office to request appointments, renew medications or just ask a question. You can enroll at [email or web address] or register during your next office [...] primary care provider, you may find a [facility] provider by calling [facility] [employer] Link at [phone]. For information about the plan of care including goals and instructions for your diagnosis, please see the patient education orders section of this document. Patient Education Materials?? The content of this educational material or handout may have been modified, supplemented, or adapted from its original content and format to support your individualized medical care. * Rebekah Hartley: VERIFY, PERFORM, SIGN Event Display: Patient Education/Instruction Authored Date: [id number] [facility] *BMP So Paulino Douglas Clinical Summary Name RAFAEL GOVEA Age 72 Years 1950 PCP Ranjeet Rushing MD PCP Visit Date 02/20/2023 15:29:00 Additional Instructions: Scheduled Appointments?? Future Appointments ?*Pain??Management ?[address]??[place],??[place],??[address] ?Phone:??[phone]?Fax:??-- ?Appt. Date:??03/04/2023?8:40 AM ?Scheduled Provider:??Magnolia Carolina MD ?*BMP??So??Paulino??Adlt ?[address],??[address] ?Phone:??--?Fax:??-- ?Appt. Date:??04/22/2023?9:10 AM ?Scheduled Provider:??Matilda LOZADA , Chari Santos Follow-Up Instructions ?? With: Address: When: Matilda LOZADA, Chari Santos [address] [facility] [place] [facility] [place] [address] Business (1) In 1 month Comments: end of day Diagnosis Medications: Please continue your medications until treatment is completed or stopped by your provider. Discuss any questions related to medications with your provider. Medications to Continue Taking That Have Changed [facility], [address] [place] [phone], [phone] - semaglutide (semaglutide 7 mg oral tablet) 1 tab(s) Oral Daily. take at least 30 minutes before first food, beverage, or other oral meds BUBBLE PACK. Refills: 1. Next Dose: Medications to Continue [...] 11. Next Dose: Durable Medical Equipment (Pen [place], 31 G x 5 mm BD Ultra Fine III) To inject insulin BID for DMII E11.9. Refills: 5. Next Dose: Fluoxetine (FLUoxetine 20 mg oral capsule) 3 capsule Oral Daily. Refills: 0. Next Dose: fluticasone/umeclidinium/vilanterol (Trelegy Ellipta inhalation powder) [...] Miscellaneous Rx (BD UF SHORT PEN NEEDLE [id number]) USE TO INJECT INSULIN TWICE A DAY. Refills: 5. Next Dose: Miscellaneous Rx (VITAMIN D3 1,000 UNIT SOFTGEL) 1 capsule Oral Daily. Refills: 0. Next Dose: Multivitamin (multivitamin Multiple Vitamins oral tablet) 1 tab(s) Oral Daily. Refills: 3. Next Dose: Scio-3 Polyunsaturated Fatty Acids (Fish Oil) 1,000 Milligram [...] Orders ?No future orders Vital Signs Height 161 cm Weight 67.9 kg BMI 26.19 kg/m2 Blood Pressure 132 mm Hg/78 mm Hg Temperature 98.0 DegF Pulse Rate 100 bpm Respiratory Rate 16 br/min 02 Sat Mode of Delivery 96 %/Room air You can now view a summary of your hospital visit from the comfort of your home through a free online portal called HangIt. HangIt is a website that allows you to securely view your medical information including discharge summary, medications and follow-up visits. ??You can alsosend a secure electronic message to your doctor???s office to request appointments, renew medications or just ask a question. You can enroll at [email or web address] or register during your next office visit. [...] primary care provider, you may find a [facility] provider by calling [facility] [employer] Link at [phone]. For information about the plan of care [...] Care Nurse Name: Ranjeet Rushing MD Position: [facility] Physician - Primary Care Member Role: PCP Address: Address: [address] [place] [address] - Name: Yoselyn Bradley RN Position: [facility] RN Member Role: Primary Care Nurse Name: Chari Grey NP Position: [facility] PCO Associate Professional Member Role: [employer] Provider Address: Address: [address] [place] [address] - [place] Name: Yariel Fuller RN Position: [facility] RN Member Role: Primary Care Nurse Name: Julius Stringer RN Position: [facility] RN Member Role: Primary Care Nurse Name: Shantell Carter Position: [facility] RN Member Role: Primary Care Nurse Name: Michelle Morris RN Position: [facility] AMB Nurse Member Role: Primary Care Nurse Care Team Related Persons Name: ADRYAN GOVEA Address: home [address] [facility] [address] [place], [place] Name: TAMARA GOVEA Address: home [address] [facility] [address] [place] [address]
--- OUTSIDE RECORDS SUMMARY | 2023-07-07 08:54 | XMS_ITS | Continuity of Care Document ---
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 Role Phone Ranjeet Rushing MD Primary Care Physician [phone] Encounter [facility] Date(s): 03/17/23 - 03/17/[address] [address]- Discharge Disposition: A-D/C Home Attending Physician: Gibson Ruth MD Admitting Physician: Gibson Ruth MD Referring Physician: Not on Staff, Referring [...] 07/19/08 Gi sarah 1Result Comment: [05/28/2017] [facility]: [id number] 2Location History: [facility] 3Admin Note: VIS GIVEN-DATED 04/04/09 4Admin Note: vis given 5Admin Note: VIS given 6Admin Note: VIS-GIVEN 7Location History: [facility] 8Location History: [facility] 9Resesperanza Comment: [10/17/2015] PER NICO AT [facility] 10Admin Note: VIS GIVEN 11Admin Note: [...] 2 Refills, Maintenance, 01/20/23 22:52:00 EDT, Powder, [facility]/pharmacy #[id number], [...] Status: Ordered BD UF SHORT PEN NEEDLE [id number] BD UF SHORT PEN NEEDLE [id number], See Instructions, # 200 Unknown, 5 Refills, USE TO INJECT INSULIN TWICE A DAY, 160, cm, 11/27/21 14:08:00 EDT, Height, 74.8, kg, 11/01/21 15:05:00 EST, Dry Weight Start Date: 11/30/21 Status: Ordered colchicine 0.6 mg oral capsule 1 capsule = 0.6 mg, By Mouth, 2 times a day, # 20 capsule, 0 Refills, Maintenance, 12/31/22 10:10:00 EDT, Capsule, [facility]/pharmacy #[id number], Partial fill [...] 14:16:00 EDT, Route to Pharmacy Electronically, [facility], 161, cm, 02/20/23 15:50:00 EDT, Height, 77.2, kg, 11/13/22 13:42:00 EDT, Dry Weight Start Date: 02/21/23 Status: Ordered Lidoderm 5% film 1 patch, Topically, Daily, # 30 patch, 11 Refills, Maintenance, 11/28/22 11:43:00 EDT, [facility], Partial fill upon patient request if the prescription is for a schedule II opioid drug., 1 patch Topically Daily,x30 days, 161, cm, 11/28/22... Start Date: 11/28/22 Stop Date: 11/23/23 Status: Ordered Lyrica 150 mg oral capsule 1 capsule = 150 mg, By Mouth, 2 times a day, BUBBLE PACK, # 60 capsule, 0 Refills, Maintenance, 02/21/23 14:19:00 EDT, Capsule, [facility], 161, cm, 02/20/23 15:50:00 EDT, Height, 77.2, kg, 11/13/22 13:42:00 EDT, Dry Weight Start Date: 02/21/23 Status: Ordered magnesium oxide 400 mg oral tablet 1 tablet, By Mouth, Daily, # 28 tablet, 0 Refills, Maintenance, 02/21/23 14:16:00 EDT, [facility], 161, cm, 02/20/23 15:50:00 EDT, [...] cm, 11/28/22... Start Date: 12/13/22 Status: Ordered oxyCODONE 5 mg oral tablet 5 mg, Tablet, By Mouth, Once, Routine, 03/17/23 13:00:00 EDT, Stop date 03/17/23 13:00:00 EDT Start Date: 03/17/23 Stop Date: 03/17/23 Status: Completed oxyCODONE 5 mg oral tablet 5 mg, 1, tablet, By Mouth, Every 4 hours, PRN, # 16 tablet, Refills 0, Tot. Refills 0, Acute 03/24/23 11:48:00 EDT, as needed for pain, 03/17/23 11:48:00 EDT, Route to Pharmacy Electronically, [facility], Partial fill upon patient request,... Start Date: 03/17/23 Stop Date: 03/24/23 Status: Ordered Pen [place], 31 G x 5 mm BD Ultra [...] EDT, Route to Pharmacy Electronically, [facility], 161, cm, 02/20/23 15:50:00 EDT, Height, [...] 14:16:00 EDT, Route to Pharmacy Electronically, 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 2Carotid ultrasound 2016 showing bilateral noncritical carotid stenosis. 50-70% bilaterally. 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 Gume Mart 6MOCA 20 Results Radiology Reports * Exam Date Time Procedure Performing Provider Status 03/17/23 11:24 AM Ribs W/ PA Chest Right Dianne Eugene; Nadine (Verified) Notes: (Ribs W/ PA Chest Right) Reason For Exam: Pain RESULT: Ribs W/ PA Chest Right PA chest and right RIBS 3 views dated March 17, 2023. Comparison films are from December 13, 2022. HISTORY: Pain. FINDINGS: The cardiac silhouette is within normal limits for size. Mural calcifications noted in the aorta. Some stable increased interstitial markings are noted bilaterally. No airspace consolidation or pleural effusion is appreciated. No displaced rib fracture or pneumothorax is seen. There is a convex left thoracolumbar scoliosis with associated degenerative changes. Findings no right shoulder consistent with calcific tendinitis or bursitis. IMPRESSION: No evidence of acute pulmonary disease. No displaced rib fracture or pneumothorax. Calcific tendinitis or bursitis in the right shoulder. Postoperative changes in the cervical spine. Examination [id number]. Thank you for allowing me to participate in the care of this patient. WSN: [id number] Ordering Physician: Gibson Ruth Dictated By: Darin Hooks MD Dictated Date/Time: 03/17/23 11:30 a Reviewed By: Darin Hooks MD Signed By: Darin Hooks MD Signed Date/Time: 03/17/23 11:30 am Transcribed By: JOSE Transcribed Date/Time: 03/17/23 11:30 am Vital Signs Most recent to oldest [Reference Range]: 1 2 Height 160 cm (03/17/23 11:11 AM) Weight 69.9 kg (03/17/23 11:11 AM) Oxygen Saturation [94-100 %] 95 % (03/17/23 11:11 AM) Pulse Rate [55-90 bpm] 85 bpm (03/17/23 11:11 AM) Blood Pressure [90-138/55-84 mm Hg] 133/ 57mm Hg (03/17/23 11:11 AM) Respiratory Rate [16-30 br/min] 18 br/mi n (03/17/23 11:53 AM) 18 br/min (03/17/23 11:11 AM) Temperature [96.8-100.4 DegF] 97.5 DegF (03/17/23 11:11 AM) Mode of Delivery (Oxygen) Room air (03/17/23 11:11 AM) Blood pressure sites Arm, left (03/17/23 11:11 AM) Temperature Route Tympanic (03/17/23 11:11 AM) Dry Weight 69.9 kg (03/17/23 11:11 AM) Weight Obtained Via Standing scale (03/17/23 11:11 AM) Dry Weight Obtained Via Standing scale (03/17/23 11:11 AM) Social History Social History Type Response Smoking Status Former smoker, quit more than 30 days ago; Other: QUIYT COUPLE YEARS AGO; entered on: 11/13/22 Sex Note * Gibson Ruth MD: PERFORM, SIGN, VERIFY Event Display: Patient Education Handout Authored Date: [id number] * Gibson Ruth MD: PERFORM Event Display: Patient Education Leaflets Authored Date: [id number] Chest Wall Strain ?? [id number] Chest Wall Strain Injury can overstretch a muscle on the front or back of the chest wall. This is called a chest wallstrain. The injury may occur during play or sports. It may also happen during repeated coughing or when lifting a heavy object. Symptoms include sharp pain and soreness. But, there is no serious injury or permanent damage. Muscle strain can be treated with [id number]-[id number] or prescription medicine for pain and swelling.??Pain from a muscle strain usually resolves within a week. Home care ??? Your healthcare provider may prescribe medicine for pain and swelling. If the chest is strained from coughing, a cough medicine may be prescribed. Follow the healthcare provider's specific instructions. Don't use any other pain medicine unless you check with your healthcare provider first. ??? Rest as needed. ??? Use cold, as directed. It can help reduce swelling and pain. Wrap a cold pack or a bag of frozen peas in a thin towel. Apply this to the affected site for up to 20 minutes, 4 to 8 times a day. Don't apply cold for longer than 20 minutes at a time. ??? Hold a pillow to the affected area when coughing.??This can help ease pain from the injury. ?? Follow-up care Follow up with your healthcare provider, or as advised. ?? When to seek medical advice Call your healthcare provider for any of the following: ??? Pain not relieved by medicine ??? Pain that continues for longer than 7 days ??? Trouble moving normally ??? Redness developing, swelling, or pain getting worse and not better ?? Call 911 Call 911 or seek immediate emergency medical services if you have any of the following: ??? Trouble breathing, shortness of breath, or fast breathing ??? New or sudden worsening chest pain ??? Sudden weakness or numbness ?? Last Reviewed Date: 2022 ?? [id number] [employer]. All rights reserved. This information is not intended as a substitute for professional medical care. Always follow your healthcare professional's instructions. ?? Patient Care team information Care Team Personnel Name: Trinity Lloyd MD Position: [facility] Outreach Member Role: Lif[employer] Consulting Physician Name: Carmita Enriquez RN Position: [facility] RN Member Role: Primary Care Nurse Name: Mattie Morris RN Position: [facility] RN Supv Member Role: Primary Care Nurse Name: Ranjeet Rushing MD Position: [facility] Physician - Primary Care Member Role: PCP Address: Address: [address] [place] [address]- Name: Yoselyn Bradley RN Position: [facility] RN Member Role: Primary Care Nurse Name: Chari Grey NP Position: [facility] PCO Associate Professional Member Role: [employer] Consult[employer] Provider Address: Address: [address] [place] [address]- Name: Yariel Fuller RN Position: [facility] RN Member Role: Primary Care Nurse Name: Julius Stringer RN Position: [facility] RN Member Role: Primary Care Nurse Name: Shantell Carter Position: [facility] RN Member Role: Primary Care Nurse Name: Libia Rivera RN Position: [facility] RN Member Role: Primary Care Nurse Name: Michelle Morris RN Position: [facility] AMB Nurse Member Role: Primary Care Nurse Name: Shanon Mims RN Position: [facility] ED RN W/OE and Tasks Member Role: Patient Care Provider Name: Charlotte Tello Position: [facility] ED TA [facility] Member Role: [employer] Name: Gibson Ruth MD Position: [facility] ED Medicine MD Member Role: Admitting Physician Address: Address: [address] [place] [address]- Care Team Related Persons Name: ADRYAN GOVEA Address: home [address] [address] Name: TAMARA GOVEA Address: home [address] [facility] [address] [facility] [place] [address]
--- OUTSIDE RECORDS SUMMARY | 2023-07-07 08:54 | XMS_ITS | Continuity of Care Document ---
Author Name Unknown Organization [facility] Leif lt Address [address] [place] [address]- Care Team Providers Care Etl Lead Name Role Phone Ranjeet Rushing MD Primary Care Phys[facility]/23 - 05/22/23 [facility] Adult [address] [place] [address]- Attending Physician: Ranjeet Rushing MD Allergies, Adverse [...] 07/19/08 Gi sarah 1Result Comment: [05/28/2017] HD [facility]: 69262-725-00 2Location History: [facility] 3Admin Note: VIS GIVEN-DATED 04/04/09 4Admin Note: vis given 5Admin Note: VIS given 6Admin Note: VIS-GIVEN 7Location History: [facility] 8Location History: [facility] 9Evelyne Comment: [10/17/2015] PER NICO AT [facility] [...] 2 Refills, Maintenance, 04/01/23 15:47:00 EDT, Powder, [facility]/pharmacy #[id number], 2 [...] 10:34:00 EDT, Route to Pharmacy Electronically, [facility], 160, cm, 04/14/23 20:00:00 EDT, Height, [...] Status: Ordered BD UF SHORT PEN NEEDLE [id number] BD UF SHORT PEN NEEDLE [id number], See Instructions, # 200 Unknown, 5 Refills, USE TO INJECT INSULIN TWICE A DAY, 160, cm, 11/27/21 14:08:00 EDT, Height, 74.8, kg, 11/01/21 15:05:00 EST, Dry Weight Start Date: 11/30/21 Status: Ordered colchicine 0.6 mg oral capsule 1 capsule = 0.6 mg, By Mouth, 2 times a day, # 20 capsule, 0 Refills, Maintenance, 12/31/22 10:10:00 EDT, Capsule, [facility]/pharmacy #[id number], Partial fill upon patient request if [...] 04/18/23 10:33:00 EDT, Route toPharmacy Electronically, [facility], 160, cm, 04/14/23 20:00:00 EDT, Height, [...] 10:34:00 EDT, [facility], 160, cm, 04/14/23 20:00:00 EDT, [...] 11 Refills, Maintenance, 04/18/23 10:34:00 EDT, [facility], 160, cm, 04/14/23 20:00:00 EDT, Height, [...] 11/28/22... Start Date: 12/13/22 Status: Ordered Pen Joaquin, 31 G x 5 mm BD Ultra [...] 10:33:00 EDT,Route to Pharmacy Electronically, [facility], 160, cm, 04/14/23 20:00:00 EDT, Height,68.5, kg, 04/14/23 20:00:00 EDT, Dry Weight Start Date: 04/18/23 Status: Ordered Trelegy Ellipta inhalation powder 1 puffs, Inhalation, Daily, at the same time every day, # 3 each, 1 Refills, Maintenance, 04/01/23 15:47:00 EDT, Powder, [facility]/pharmacy #[id number], Partial fill upon patient request if the [...] 11 Refills, Maintenance, 04/18/23 10:34:00 EDT, [facility], 160, cm, 04/14/23 20:00:00 EDT, Height, [...] (osteoarthritis), cervical Confirmed Active Osteoporosis Confirmed Active *[facility] [phone] 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 2Carotid ultrasound 2016 showing bilateral noncritical carotid stenosis. 50-70% bilaterally. 3Per chart review meeting GFR criteria 4Per MOCA done at [facility] 5[facility]'s laceworker [facility] and patient sees Dr. Gume Mart 6MOCA 20 Social History Social History Type Response Smoking Status Former smoker, quit more than 30 days ago; Other: QUIYT COUPLE YEARS AGO; entered on: 11/13/22 Sex Patient Care team information Care Team Personnel Name: Trinity Lloyd MD Position: [facility] Outreach Member Role: Lifetime Consulting Physician Name: Carmita Enriquez RN Position: [facility] RN Member Role: Primary Care Nurse Name: Mattie Morris RN Position: [facility] RN Supv Member Role: Primary Care Nurse Name: Ranjeet Rushing MD Position: [facility] Physician - Primary Care Member Role: PCP Address: Address: [address] [place] [address]- Name: Yoselyn Bradley RN Position: [facility] RN Member Role: Primary Care Nurse Name: Chari Grey NP Position: [facility] PCO Associate Professional Member Role: Lifetime Consulting Provider Address: Address: [address] [place] [address]- Name: Yariel Fuller RN Position: [facility] RN Member Role: Primary Care Nurse Name: Julius Stringer RN Position: [facility] RN Member Role: Primary Care Nurse Name: Shantell Carter Position: [facility] RN Member Role: Primary Care Nurse Name: Libia Rivera RN Position: [facility] RN Member Role: Primary Care Nurse Name: Michelle Morris RN Position: [facility] AMB Nurse Member Role: Primary Care Nurse Care Team Related Persons Name: ADRYAN GOVEA Address: [address] [address] Name: TAMARA GOVEA Address: [place] [address] [address]
--- OUTSIDE RECORDS SUMMARY | 2023-07-07 08:54 | XMS_ITS | Continuity of Care Document ---
Author Name Unknown Organization [facility] Paulino Leif lt Address [address] [place] [address]- Care Team Providers Care Roller Painter Name Role Phone Ranjeet Rushing MD Primary Care Physician [facility]): 12/05/22 - 01/04/23 [facility] Adult [address] [place] [address]- Allergies, Adverse Reactions, Alerts Substance Reaction Severity [...] Gi sarah 1Result Comment: [05/28/2017] HD [facility]: [id number] 2Location History: [facility] 3Admin Note: VIS GIVEN-DATED 04/04/09 4Admin Note: vis given 5Admin Note: VIS given 6Admin Note: VIS-GIVEN 7Location History: [facility] 8Location History: [facility] 9Evelyne Comment: [10/17/2015] PER NICO AT [facility] 10Admin Note: VIS GIVEN 11Admin Note: [...] 11 Refills, Maintenance, 05/07/22 16:00:00 EDT, Powder, [facility]/pharmacy #[id number], 2 puffs Inhalation Every 6 hours,PRN:as needed, [...] Status: Ordered BD UF SHORT PEN NEEDLE [id number] BD UF SHORT PEN NEEDLE [id number], See Instructions, # 200 Unknown, 5 Refills, USE TO INJECT INSULIN TWICE A DAY, 160, cm, 11/27/21 14:08:00 EDT, Height, 74.8, kg, 11/01/21 15:05:00 EST, Dry Weight Start Date: 11/30/21 Status: Ordered colchicine 0.6 mg oral capsule 1 capsule = 0.6 mg, By Mouth, 2 times a day, # 20 capsule, 0 Refills, Maintenance, 12/31/22 10:10:00 EDT, Capsule, [facility]/pharmacy #[id number], Partial fill upon patient request if the [...] 11/28/22... Start Date: 12/13/22 Status: Ordered Pen Gillespie, 31 G x 5 mm BD Ultra [...] 0 Refills, Maintenance, 11/28/22 13:19:00 EDT, Tablet, [facility]/pharmacy #[id number], Partial fill upon patient request if t... 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 2Carotid ultrasound 2016 showing bilateral noncritical carotid stenosis. 50-70% bilaterally. 3Per chart review meeting GFR criteria 4Per MOCA done at [facility] 5Patient's wallpaper consultant is [facility] and patient sees Dr. Gume Mart 6MOCA 20 Social History Social History Type Response Smoking Status Former smoker, quit more than 30 days ago; Other: QUIYT COUPLE YEARS AGO; entered on: 11/13/22 Sex Patient Care team information Care Team Personnel Name: Carmita Enriquez RN Position: [facility] RN Member Role: Primary Care Nurse Name: Mattie Morris RN Position: [facility] RN Supv Member Role: Primary Care Nurse Name: Ranjeet Rushing MD Position: [facility] Primary Care Physician Member Role: PCP Address: Address: [address] [place] [address]- Name: Yoselyn Bradley RN Position: [facility] RN Member Role: Primary Care Nurse Name: Chari Grey NP Position: [facility] PCO Associate Professional Member Role: Lifetime Consulting Provider Address: Address: [address] [place] [address] - Name: Yariel Fuller RN Position: [facility] RN Member Role: Primary Care Nurse Name: Julius Stringer RN Position: S RN Member Role: Primary Care Nurse Name: Shantell Carter Position: S RN Member Role: Primary Care Nurse Name: Michelle Morris RN Position: [facility] PCO RN Member Role: Primary Care Nurse Care Team Related Persons Name: ADRYAN GOVEA Address: [address] [facility] [address] [place] [address] Name: GOVEA TAMARA Address: [address] [place] [address]
--- OUTSIDE RECORDS SUMMARY | 2023-07-07 08:55 | XMS_ITS | Continuity of Care Document ---
Author Name Unknown Organization [facility] Paulino Leif lt Address [address] [place] [address]- Care Team Providers Care Reservoir Engineer Name Role Phone Ranjeet Rushing MD Primary Care Physician [facility]s): 11/26/22 - 12/26/22 [facility] Adult [address] [place] [address]- Allergies, Adverse Reactions, Alerts Substance Reaction Severity [...] 11 07/19/08 Gi sarah 1Result Comment: [05/28/2017] [facility]: [id number] 2Location History: [facility] 3Admin Note: VIS GIVEN-DATED 04/04/09 4Admin Note: vis given 5Admin Note: VIS given 6Admin Note: VIS-GIVEN 7Location History: [facility] 8Location History: [facility] 9Evelyne Comment: [10/17/2015] PER NICO AT [facility] 10Admin Note: VIS GIVEN 11Admin Note: VIS [...] 11 Refills, Maintenance, 05/07/22 16:00:00 EDT, Powder, [facility]/pharmacy #[id number], 2 puffs [...] Status: Ordered BD UF SHORT PEN NEEDLE [id number] BD UF SHORT PEN NEEDLE [id number], See Instructions, # 200 Unknown, 5 Refills, [...] 11/28/22... Start Date: 12/13/22 Status: Ordered Pen Morrill, 31 G x 5 mm BD Ultra [...] 0 Refills, Maintenance, 11/28/22 13:19:00 EDT, Tablet, [facility]/pharmacy #[id number], Partial fill upon patient request if t... 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 2Carotid ultrasound 2016 showing bilateral noncritical carotid stenosis. 50-70% bilaterally. 3Per chart review meeting GFR criteria 4Per MOCA done at [facility] 5Patient's recreation engineer [facility] and patient sees Dr. [...] Care Nurse Name: Ranjeet Rushing MD Position: [facility] Primary Care Physician Member Role: PCP Address: Address: [address] [place] [address]- [place] Name: Yoselyn Bradley RN Position: S RN Member Role: Primary Care Nurse Name: Chari Grey NP Position: [facility] PCO Associate Professional Member Role: Lifetime Consulting Provider Address: Address: [address] [place] [address]- [place] Name: Yariel Fuller RN Position: S RN Member Role: Primary Care Nurse Name: Julius Stringer RN Position: S RN Member Role: Primary Care Nurse Name: Shantell Carter Position: S RN Member Role: Primary Care Nurse Name: Michelle Morris RN Position: [facility] PCO RN Member Role: Primary Care Nurse Care Team Related Persons Name: ADRYAN GOVEA Address: home [address] [place] [address] Name: TAMARA GOVEA Address: home [address] [facility] [address] [place] [address]
--- OUTSIDE RECORDS SUMMARY | 2023-07-07 08:55 | XMS_ITS | Continuity of Care Document ---
Author Name Unknown Organization [facility] Leif lt Address [address] [place] [address]- Care Team Providers Care Regulatory Affairs Specialist Name Role Phone Ranjeet Rushing MD Primary Care Physician [phone] Encounter [facility] Date(s): 11/01/22 - 01/19/23 [facility] Adult [address] [place] [address]- Attending Physician: Not on Staff, Attending MD [...] Gi sarah 1Result Comment: [05/28/2017] HD [facility]: [id number] 2Location History: [facility] 3Admin Note: VIS GIVEN-DATED 04/04/09 4Admin Note: vis given 5Admin Note: VIS given 6Admin Note: VIS-GIVEN 7Location History: [facility] 8Location History: [facility] 9Resesperanza Comment: [10/17/2015] PER NICO AT [facility] 10Admin Note: VIS GIVEN 11Admin Note: VIS [...] Refills, Maintenance, 05/07/22 16:00:00 EDT, Powder, [facility]/pharmacy #[id number], 2 puffs Inhalation Every 6 hours,PRN:as needed, [...] Status: Ordered BD UF SHORT PEN NEEDLE [id number] BD UF SHORT PEN NEEDLE [id number], See Instructions, # 200 Unknown, 5 Refills, USE TO INJECT INSULIN TWICE A DAY, 160, cm, 11/27/21 14:08:00 EDT, Height, 74.8, kg, 11/01/21 15:05:00 EST, Dry Weight Start Date: 11/30/21 Status: Ordered colchicine 0.6 mg oral capsule 1 capsule = 0.6 mg, By Mouth, 2 times a day, # 20 capsule, 0 Refills, Maintenance, 12/31/22 10:10:00 EDT, Capsule, [facility]/pharmacy #[id number], Partial fill upon patient request if [...] 11/28/22... 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 2Carotid ultrasound 2016 showing bilateral noncritical carotid stenosis. 50-70% bilaterally. 3Per chart review meeting GFR criteria 4Per MOCA done at [facility] 5Patient's enterprise account executive is [facility] and patient sees Dr. Gume Mart 6MOCA 20 Social History Social History Type Response Smoking Status Former smoker, quit more than 30 days ago; Other: QUIYT COUPLE YEARS AGO; entered on: 11/13/22 Sex Patient Care team information Care Team Personnel Name: Carmita Enriquez RN Position: [facility] RN Member Role: Primary Care Nurse Name: Mattie Morris RN Position: [facility] RN Supv Member Role: Primary Care Nurse Name: Ranjeet Rushing MD Position: [facility] Physician - Primary Care Member Role: PCP Address: Address: [address] [place] [phone]- [place] Name: Yoselyn Bradley RN Position: [facility] RN Member Role: Primary Care Nurse Name: Chari Grey NP Position: [facility] PCO Associate Professional Member Role: Lifetime Consulting Provider Address: Address: [address] [place] [address] - Name: Yariel Fuller RN Position: [facility] RN Member Role: Primary Care Nurse Name: Julius Stringer RN Position: S RN Member Role: Primary Care Nurse Name: Shantell Carter Position: S RN Member Role: Primary Care Nurse Name: Alexandra JC, Michelle Stout Position: [facility] PCO RN Member Role: Primary Care Nurse Care Team Related Persons Name: ADRYAN GOVEA Address: [place] [address] [address] Name: TAMARA GOVEA Address: [place] [address] [address]
--- OUTSIDE RECORDS SUMMARY | 2023-07-07 08:55 | XMS_ITS | Continuity of Care Document ---
Author Name Unknown Organization [facility] Leif lt Address [address] [place] [address]- Care Team Providers Care Cell Biologist Name Role Phone Ranjeet Rushing MD Primary Care Physician [phone] [facility] 01[facility]17[facility]23 - 02/16/23 [facility] Adult [address] [place] [address]- Allergies, Adverse Reactions, Alerts Substance Reaction Severity [...] Adria rded influenza virus vaccine, inactivated 05/05/15 Adira rded influenza virus vaccine, inactivated 05/29/14 Adria [...] 07/19/08 Gi sarah 1Result Comment: [05/28/2017] HD [facility]: 67544-508-01 2Location History: [facility] 3Admin Note: VIS GIVEN-DATED 04/04/09 4Admin Note: vis given 5Admin Note: VIS given 6Admin Note: VIS-GIVEN 7Location History: [facility] 8Location History: [facility] DR Seaman Comment: [10/17/2015] PER NICO AT [facility] 10Admin Note: VIS GIVEN 11Admin Note: [...] 2 Refills, Maintenance, 01/20/23 22:52:00 EDT, Powder, [facility]/pharmacy #[id number], 2 [...] 16:42:00 EDT, Route to Pharmacy Electronically, [facility], 161, cm, 02/04/23 15:03:00 EDT, Height, 77.2, kg, 11/13/22 13:42:00 EDT, Dry Weight Start Date: 02/04/23 Status: Ordered BD UF SHORT PEN NEEDLE [id number] BD UF SHORT PEN NEEDLE [id number], See Instructions, # 200 Unknown, 5 Refills, USE TO INJECT INSULIN TWICE A DAY, 160, cm, 11/27/21 14:08:00 EDT, Height, 74.8, kg, 11/01/21 15:05:00 EST, Dry Weight Start Date: 11/30/21 Status: Ordered colchicine 0.6 mg oral capsule 1 capsule = 0.6 mg, By Mouth, 2 times a day, # 20 capsule, 0 Refills, Maintenance, 12/31/22 10:10:00 EDT, Capsule, [facility]/pharmacy #[id number], Partial fill upon patient request if the [...] 0 Refills, Maintenance, 02/04/23 16:42:00 EDT, [facility], 161, cm, 02/04/23 15:03:00 EDT, Height, 77.2, [...] Refills, Maintenance, 11/28/22 13:19:00 EDT, Tablet, [facility]/pharmacy #[id number], Partial fill upon patient request if t... Start Date: 11/28/22 Status: Ordered simvastatin 10 mg oral tablet 1, tablet, By Mouth, Daily at bedtime, # 28 tablet, Refills 0, Maintenance, 02/04/23 16:42:00 EDT, Route to Pharmacy Electronically, [facility], 161, cm, 02/04/23 15:03:00 EDT, Height, 77.2, [...] 16:42:00 EDT, Route to Pharmacy Electronically, [facility], 161, cm, 02/04/23 15:03:00 EDT, Height, 77.2, [...] 0 Refills, Maintenance, 02/04/23 16:42:00 EDT, [facility], 161, cm, 02/04/23 15:03:00 EDT, Height, 77.2, [...] (osteoarthritis), cervical Confirmed Active Osteoporosis Confirmed Active *[facility] [phone] 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 2Carotid ultrasound 2016 showing bilateral noncritical carotid stenosis. 50-70% bilaterally. 3Per chart review meeting GFR criteria 4Per MOCA done at [facility] 5Patient's automobile sales consultant is [facility] and patient sees Dr. Gume Mart 6MOCA 20 Social History Social History Type Response Smoking Status Former smoker, quit more than 30 days ago; Other: QUIYT COUPLE YEARS AGO; entered on: 11/13/22 Sex Patient Care team information Care Team Personnel Name: Carmita Enriquez RN Position: S RN Member Role: Primary Care Nurse Name: Mattie Morris RN Position: S RN Mya Member Role: Primary Care Nurse Name: Ranjeet Rushing MD Position: S Physician - Primary Care Member Role: PCP Address: Address: [address] [place] [phone]- Name: Yoselyn Bradley RN Position: [facility] RN Member Role: Primary Care Nurse Name: Chari Grey NP Position: [facility] PCO Associate Professional Member Role: Lifetime Consulting Provider Address: Address: [address] [place] [address] [place] [address]- Name: Yariel Fuller RN Position: [facility] RN Member Role: Primary Care Nurse Name: Julius Stringer RN Position: [facility] RN Member Role: Primary Care Nurse Name: Shantell Carter Position: [facility] RN Member Role: Primary Care Nurse Name: Michelle Morris RN Position: [facility] AMB Nurse Member Role: Primary Care Nurse Care Team Related Persons Name: ADRYAN GOVEA Address: home [address] [facility] [address] [place] [address] Name: TAMARA GOVEA Address: home [address] [facility] [address] [place] [address]
--- OUTSIDE RECORDS SUMMARY | 2023-07-07 08:55 | XMS_ITS | Continuity of Care Document ---
Author Name Unknown Organization [facility] Paulino Leif lt Address [address] [place] [address]- Care Team Providers Care Event Specialist Name Role Phone Ranjeet Rushing MD Primary Care Physician [facility]): 11[facility]12/22 - 12/12/22 [facility] [place], [facility] Adult [address] [place] [address]- Allergies, Adverse Reactions, Alerts Substance Reaction Severity [...] 11 07/19/08 Gi sarah 1Result Comment: [05/28/2017] [facility]: [id number] 2Location History: [facility] 3Admin Note: VIS GIVEN-DATED 04/04/09 4Admin Note: vis given 5Admin Note: VIS given 6Admin Note: VIS-GIVEN 7Location History: [facility] 8Location History: [facility] 9Evelyne Comment: [10/17/2015] PER NICO AT [facility] 10Admin Note: VIS GIVEN 11Admin Note: [...] 11 Refills, Maintenance, 05/07/22 16:00:00 EDT, Powder, [facility]/pharmacy #[id number], 2 [...] Status: Ordered BD UF SHORT PEN NEEDLE [id number] BD UF SHORT PEN NEEDLE [id number], See Instructions, # 200 Unknown, 5 Refills, [...] Dry Weight Start Date: 11/28/22 Status: Ordered Multivitamin 1 tablet, By Mouth, Daily, 0 Refills, Maintenance, 12/09/19 16:05:00 EDT Start Date: 12/09/19 Status: Ordered Pen [place], 31 G x 5 mm BD Ultra Fine III See Instructions, # 200 each, Refills 5, Tot. Refills 5, Maintenance, To inject insulin BID for DM II E11.9 PER [facility] DISPATCHER-C, 10/06/20 10:54:00 EST, SHORT, Compound, 160, cm, 10/05/20 14:31:00 EST, Height, 77.5, kg, 10/05/20 14:31:00 EST, Dry W... Start Date: 10/06/20 Status: Ordered semaglutide 3 mg oral tablet 1 tablet = 3 mg, By Mouth, Daily, take at least 30 minutes before first food, beverage, or other oral meds REPLACES VICTOZA, # 30 tablet, 0 Refills, Maintenance, 11/28/22 13:19:00 EDT, Tablet, [facility]/pharmacy #[id number], Partial fill upon patient request if t... 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 2Carotid ultrasound 2016 showing bilateral noncritical carotid stenosis. 50-70% bilaterally. 3Per chart review meeting GFR criteria 4Per MOCA done at [facility] 5Patient's adult live in caregiver [facility] Dr. Gume Mart 6MOCA 20 Social History Social History Type Response Smoking Status Former smoker, quit more than 30 days ago; Other: QUIYT COUPLE YEARS AGO; entered on: 11/13/22 Sex Patient Care team information Care Team Personnel Name: Carmita Enriquez RN Position: S RN Member Role: Primary Care Nurse Name: Mattie Morris RN Position: [facility] RN Supv Member Role: Primary Care Nurse Name: Ranjeet Rushing MD Position: [facility] Primary Care Physician Member Role: PCP Address: Address: [address] [place] [phone]- Name: Yoselyn Bradley RN Position: S RN Member Role: Primary Care Nurse Name: Destiny Go RN Position: S RN Member Role: Primary Care Nurse Name: Chari Grey NP Position: [facility] PCO Associate Professional Member Role: Lifetime Consulting Provider Address: Address: [address] [place] [phone]- [place] Name: Yariel Fuller RN Position: [facility] RN Member Role: Primary Care Nurse Name: Julius Stringer RN Position: S RN Member Role: Primary Care Nurse Name: Shantell Carter Position: S RN Member Role: Primary Care Nurse Name: Michelle Morris RN Position: [facility] PCO RN Member Role: Primary Care Nurse Care Team Related Persons Name: ADRYAN GOVEA Address: home [address] [place] [address] Name: TAMARA GOVEA Address: home [address] [facility] [address] [place] [address]
--- OUTSIDE RECORDS SUMMARY | 2023-07-07 08:55 | XMS_ITS | Continuity of Care Document ---
Author Name Unknown Organization [facility] Paulino Leif lt Address [address] [place] [address]- Care Team Providers Care Infantry Operations Specialist Name Role Phone Ranjeet Rushing MD Primary Care Physician [facility]s): 11/18/22 - 12/18/22 [facility] Adult [address] [place] [address]- Allergies, Adverse Reactions, Alerts Substance Reaction Severity [...] Adria rded influenza virus vaccine, inactivated 06/12/21 Ardia rded influenza virus vaccine, inactivated 06/17/19 Adria [...] 11 07/19/08 Gi sarah 1Result Comment: [05/28/2017] [facility]: [id number] 2Location History: [facility] 3Admin Note: VIS GIVEN-DATED 04/04/09 4Admin Note: vis given 5Admin Note: VIS given 6Admin Note: VIS-GIVEN 7Location History: [facility] 8Location History: [facility] 9Evelyne Comment: [10/17/2015] PER NICO AT [facility] 10Admin Note: VIS GIVEN 11Admin Note: [...] 11 Refills, Maintenance, 05/07/22 16:00:00 EDT, Powder, [facility] [...] Status: Ordered BD UF SHORT PEN NEEDLE [id number] BD UF SHORT PEN NEEDLE [id number], See Instructions, # 200 Unknown, 5 Refills, [...] 11/28/22... Start Date: 12/13/22 Status: Ordered Pen [place], 31 G x 5 mm BD Ultra [...] 0 Refills, Maintenance, 11/28/22 13:19:00 EDT, Tablet, [facility]/pharmacy #[id number], Partial fill upon patient request if t... 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 2Carotid ultrasound 2016 showing bilateral noncritical carotid stenosis. 50-70% bilaterally. 3Per chart review meeting GFR criteria 4Per MOCA done at [facility] 5[facility] sees Dr. Gume Mart [...] Care Nurse Name: Ranjeet Rushing MD Position: [facility] Primary Care Physician Member Role: PCP Address: Address: [address] [place] [phone]- [place] Name: Yoselyn Bradley RN Position: S RN Member Role: Primary Care Nurse Name: Chari Grey NP Position: [facility] PCO Associate Professional Member Role: Lifetime Consulting Provider Address: Address: [address] [place] [phone]- [place] Name: Yariel Fuller RN Position: S RN Member Role: Primary Care Nurse Name: Julius Stringer RN Position: S RN Member Role: Primary Care Nurse Name: Shantell Carter Position: S RN Member Role: Primary Care Nurse Name: Michelle Morris RN Position: [facility] PCO RN Member Role: Primary Care Nurse Care Team Related Persons Name: ADRYAN GOVEA Address: home [address] [place] [address] Name: TAMARA GOVEA Address: home [address] [facility] [address] [place] [address]
--- OUTSIDE RECORDS SUMMARY | 2023-07-07 08:56 | XMS_ITS | Continuity of Care Document ---
Author Name Unknown Organization [facility] Leif lt Address [address] [place] [address]- Care Team Providers Care Crossing Gateman Name Role Phone Ranjeet Rushing MD Primary Care Physician [facility]): 04/22/23 - 05/22/23 [facility] Adult [address] [place] [address]- Allergies, Adverse Reactions, Alerts Substance Reaction Severity [...] 07/19/08 Gi sarah 1Result Comment: [05/28/2017] [facility]: [id number] 2Location History: [facility] 3Admin Note: VIS GIVEN-DATED 04/04/09 4Admin Note: vis given 5Admin Note: VIS given 6Admin Note: VIS-GIVEN 7Location History: [facility] 8Location History: [facility] 9Evelyne Comment: [10/17/2015] PER NICO AT [facility] 10Admin Note: VIS GIVEN 11Admin [...] 2 Refills, Maintenance, 04/01/23 15:47:00 EDT, Powder, [facility]/pharmacy #[id number], 2 puffs Inhalation Every [...] 10:34:00 EDT, Route to Pharmacy Electronically, [facility], 160, cm, 04/14/23 20:00:00 EDT, [...] Status: Ordered BD UF SHORT PEN NEEDLE [id number] BD UF SHORT PEN NEEDLE [id number], See Instructions, # 200 Unknown, 5 Refills, USE TO INJECT INSULIN TWICE A DAY, 160, cm, 11/27/21 14:08:00 EDT, Height, 74.8, kg, 11/01/21 15:05:00 EST, Dry Weight Start Date: 11/30/21 Status: Ordered colchicine 0.6 mg oral capsule 1 capsule = 0.6 mg, By Mouth, 2 times a day, # 20 capsule, 0 Refills, Maintenance, 12/31/22 10:10:00 EDT, Capsule, [facility]/pharmacy #[id number], Partial fill upon patient request if the [...] 11 Refills, Maintenance, 04/18/23 10:34:00 EDT, [facility], 160, cm, 04/14/23 20:00:00 EDT, Height, 68.5, [...] 11/28/22... Start Date: 12/13/22 Status: Ordered Pen [place], 31 G x 5 mm BD Ultra [...] 04/18/23 10:34:00 EDT,[facility] to [facility]ically[facility], 160, cm, 04/14/23 20:00:00 EDT, [...] 10:33:00 EDT, [facility], 160, cm, 04/14/23 20:00:00 EDT, Height, 68.5, [...] 04/18/23 10:33:00 EDT,Route to Pharmacy Electronically, [facility], 160, cm, 04/14/23 20:00:00 EDT, Height,68.5, kg, 04/14/23 20:00:00 EDT, Dry Weight Start Date: 04/18/23 Status: Ordered Trelegy Ellipta inhalation powder 1 puffs, Inhalation, Daily, at the same time every day, # 3 each, 1 Refills, Maintenance, 04/01/23 15:47:00 EDT, Powder, [facility]/pharmacy #[id number], Partial fill upon patient [...] 11 Refills, Maintenance, 04/18/23 10:34:00 EDT, [facility], 160, cm, 04/14/23 20:00:00 EDT, [...] Active Osteoporosis Confirmed Active *[facility] [phone] 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 2Carotid ultrasound 2016 showing bilateral noncritical carotid stenosis. 50-70% bilaterally. 3Per chart review meeting GFR criteria 4Per MOCA done at [facility] 5Patient's social science analyst is [facility] and [facility] Dr. Gume Mart 6MOCA 20 Social History Social History Type Response Smoking Status Former smoker, quit more than 30 days ago; Other: QUIYT COUPLE YEARS AGO; entered on: 11/13/22 Sex Patient Care team information Care Team Personnel Name: Trinity Lloyd MD Position: [facility] Outreach Member Role: Lifetime Consulting Physician Name: Carmita Enriquez RN Position: [facility] RN Member Role: Primary Care Nurse Name: Mattie Morris RN Position: [facility] RN Supluisa Member Role: Primary Care Nurse Name: Ranjeet Rushing MD Position: [facility] Physician - Primary Care Member Role: PCP Address: Address: [address] [place] [phone]- [place] Name: Yoselyn Bradley RN Position: [facility] RN Member Role: Primary Care Nurse Name: Chari Grey NP Position: [facility] PCO Associate Professional Member Role: Lifetime Consulting Provider Address: Address: [address] [place] [phone]- [place] Name: Yariel Fuller RN Position: [facility] RN Member Role: Primary Care Nurse Name: Julius Stringer RN Position: [facility] RN Member Role: Primary Care Nurse Name: Shantell Carter Position: [facility] RN Member Role: Primary Care Nurse Name: Libia Rivera RN Position: [facility] RN Member Role: Primary Care Nurse Name: Michelle Morris RN Position: [facility] AMB Nurse Member Role: Primary Care Nurse Care Team Related Persons Name: JEFERSON ADRYAN Address: [address] [address] Name: TAMARA GOVEA Address: [address] [address]
--- OUTSIDE RECORDS SUMMARY | 2023-07-07 08:56 | XMS_ITS | Continuity of Care Document ---
Author Name Unknown Organization [facility] Kevin Leif lt Address [address] [place] [address]- Care Team Providers Care Live Games Dealer Name Role Phone Ranjeet Rushing MD Primary Care Physician [phone] [facility] Date[facility]): 06/14[facility]22 - 07/14/22 [facility] Adult [address] [place] [address]- Allergies, Adverse Reactions, Alerts Substance Reaction Severity Status Latex Active Lac-Hydrin Active Ambien Active Benadryl Active Immunizations Given and Recorded Vaccine Date Status Refusal Reason zoster vaccine, inactivated 05/21/22 Recorded zoster vaccine, inactivated 05/10/20 Recorded zoster vaccine, inactivated 03/30/18 Recorded zoster vaccine, inactivated 02/09/18 Recorded influenza virus vaccine, inactivated 05/21/22 Adria [...] 07/19/08 Gi sarah 1Result Comment: [05/28/2017] HD [facility]: [id number] 2Location History: [facility] 3Admin Note: VIS GIVEN-DATED 04/04/09 4Admin Note: vis given 5Admin Note: VIS given 6Admin Note: VIS-GIVEN 7Location History: [facility] 8Location History: [facility] 9Resesperanza Comment: [10/17/2015] [facility] [...] Maintenance, 05/07/22 16:00:00 EDT, Powder, [facility]/pharmacy #[id number], 2 puffs Inhalation Every 6 hours,PRN:as needed, 160, cm, 04/24/22 8:34:00 EDT, Height, 72.7, kg, 04/24/22 8:34:00... Start Date: 05/07/22 Status: Ordered alendronate 70 mg oral tablet 1 tablet, By Mouth, Every week, # 12 tablet, 1 Refills, Maintenance, 07/12/22 10:05:00 EST, [id number], 160, cm, 07/09/22 14:04:00 EST, Height, 72.7, kg, 04/24/22 8:34:00 EDT, Dry Weight Start Date: 07/12/22 Status: Ordered allopurinol 300 mg oral tablet 1, tablet, By Mouth, Daily, # 90 tablet, Refills 0, Route to [facility]acy Electronically, [id number], 160, cm, 02/21/22 15:11:00 EDT, Height, 74.8, kg, 11/01/21 15:05:00 EST, Dry Weight Start Date: 03/27/22 Status: Ordered BACK BRACE BACK BRACE, See Instructions, # 1 each, Refills 0, Tot. Refills 0, Maintenance, DX BACK PAIN M54.9 DANTE LIFETIME HT 5'3 WT 182 LB, 07/23/16 14:35:27, Compound Start Date: 07/23/16 Status: Ordered BD UF SHORT PEN NEEDLE [id number] BD UF SHORT PEN NEEDLE [id number], See Instructions, # 200 Unknown, 5 Refills, USE TO INJECT INSULIN TWICE A DAY, 160, cm, 11/27/21 14:08:00 EDT, Height, 74.8, kg, 11/01/21 15:05:00 EST, Dry Weight Start Date: 11/30/21 Status: Ordered Compression Stockings See Instructions, # 1 each, Refills 1, Tot. Refills 1, Maintenance, surgical, knee length 20-30 mm Hg venoustasis changes, 05/05/20 14:09:00 EDT, Compound Start Date: 05/05/20 Status: Ordered Compression Stockings See Instructions, # 1 pair, Refills 1, Tot. Refills 1, Maintenance, surgical, thigh high length 20-30 mm Hg DX: Swelling of BLE. Lifetime use, 05/11/19 15:59:03 EDT, Compound Start Date: 05/11/19 Status: Ordered [facility] VITAMIN D3 25 MCG SOFTGEL [facility] VITAMIN D3 25 MCG SOFTGEL, 1, capsule, By Mouth, Daily, # 90 capsule, 1 Refills, 160, cm, 10/16/21 14:42:00 EST, Height, 75, kg, 09/14/21 11:51:00 EST, Dry Weight Start Date: 10/17/21 Status: Ordered cyanocobalamin 500 mcg oral tablet 1 tablet = 500 mcg, By Mouth, Daily, # 90 tablet, 3 Refills, Maintenance, 04/12/22 16:02:00 EDT, Tablet, [facility]/pharmacy #[id number], 160, cm, 04/10/22 14:31:00 EDT, Height, 74.8, kg, 11/01/21 15:05:00 EST, Dry Weight Start Date: 04/12/22 Status: Ordered DX: Neck Pain DX: Neck Pain, See Instructions, # 1 each, Refills 0, Tot. Refills 0, Maintenance, Soft Neck Collar, 01/19/16 14:36:17, Compound Start Date: 01/19/16 Status: Ordered Electric recliner Electric recliner, See Instructions, # 1 each, Refills 0, Tot. Refills 0, Maintenance, Unsteady gait Poor balance Use daily, 09/28/21 15:33:00 EST, Supply Start Date: 09/28/21 Status: Ordered Fish Oil = 1,000 mg, By Mouth, Daily, 0 Refills, Maintenance, 11/17/15 13:08:57 EDT Start Date: 11/17/15 Status: Ordered FLUoxetine 20 mg oral capsule 40 mg, 2, capsule, By Mouth, Daily, # 180 capsule, Refills 1, Tot. Refills 1, Maintenance, 05/23/2213:56:00 EDT, Route to Pharmacy Electronically, [facility]/pharmacy #[id number], Partial fill upon patient request if the prescription is for a schedule II opioid d... Start Date: 05/23/22 Status: Ordered Free Style ESDRAS 2 SENSORS Free Style ESDRAS 2 SENSORS, See Instructions, # 2 each, Refills 11, Tot. Refills 11, Maintenance, Free Style Esdras 2 SENSORS-90 day supply change every 14 days DM 2 , E11.9, 04/23/22 14:16:00 EDT, Supply, 160, cm, 04/10/22 14:31:00 EDT, Height, 74.8... Start Date: 04/23/22 Status: Ordered FreeStyle Esdras 2 METER FreeStyle Esdras 2 METER, See Instructions, # 1 each, Refills 0, Tot. Refills 0, Maintenance, dm 2 E11.9 FREESTYLE ESDRAS 2 METER, 04/23/22 14:16:00 EDT, Supply, 160, cm, 04/10/22 14:31:00 EDT, Height,74.8, kg, 11/01/21 15:05:00 EST, Dry Weight Start Date: 04/23/22 Status: Ordered Freestyle Lite Lancets See Instructions, [...] EST, Dry Weight Start Date: 01/23/22 Status: Ordered furosemide 40 mg oral tablet 1, tablet, By Mouth, 2 times a day, # 180 tablet, Refills 1, Route to Pharmacy Electronically, [id number], 160, cm, 02/21/22 15:11:00 EDT, Height, 74.8, kg, 11/01/21 15:05:00 EST, Dry Weight Start Date: 03/12/22 Status: Ordered Lidoderm 5% film 1 patch, Topically, Daily, # 30 patch, 11 Refills, Maintenance, 12/28/21 15:03:00 EDT, [facility]/pharmacy#[id number], Partial fill upon patient request if the prescription is for a schedule II opioid drug., 1 patch Topically Daily,x30 days, 160, cm, 11/27/21 14:... Start Date: 12/28/21 Stop Date: 12/23/22 Status: Ordered Lyrica 150 mg oral capsule 1 capsule = 150 mg, By Mouth, 2 times a day, DOSAGE INCREASE, # 60 capsule, 3 Refills, Maintenance,03/26/22 10:58:00 EDT, Capsule, [facility]/pharmacy #[id number], 160, cm, 02/21/22 15:11:00 EDT, Height, 74.8, kg, 11/01/21 15:05:00 EST, Dry Weight Start Date: 03/26/22 Status: Ordered magnesium oxide 400 mg oral tablet 1 tablet, By Mouth, Daily, # 100 tablet, 2 Refills, [id number], 160, cm, 02/21/22 15:11:00 EDT, Height, 74.8, kg, 11/01/21 15:05:00 EST, Dry Weight Start Date: 03/28/22 Status: Ordered Melatonin 3 mg oral tablet 1 tablet = 3 mg, By Mouth, Daily at bedtime, PRN for insomnia, [facility], # 90 tablet, 3 Refills, Maintenance, 10/17/21 12:02:00 EST, Tablet, [facility]/pharmacy #[id number], 1 tablet By Mouth Daily at bedtime,PRN:for insomnia,Instr:[facility], 160, cm, 10/16/21 14... Start Date: 10/17/21 Status: Ordered Miconazole 2% Topical Ointment 1 applicator, Topically, Daily, 0 Refills, Maintenance, Ointment Start Date: 03/27/21 Status: Ordered Milk of Magnesia Liquid 30 mL, By Mouth, Daily, PRN Constipation, 0 Refills, Maintenance, 08/17/20 11:31:00 EST, Suspension, Partial fill upon patient request if the prescription is for a schedule II opioid drug. Start Date: 08/17/20 Status: Ordered mirtazapine 30 mg oral tablet 1 tablet = 30 mg, By Mouth, Daily at bedtime, # 90 tablet, 0 Refills, Maintenance, 07/09/22 14:26:00 EST, Tablet, Partial fill upon patient request if the prescription is for a schedule II opioid drug. Start Date: 07/09/22 Status: Ordered Multivitamin 1 tablet, By Mouth, Daily, 0 Refills, Maintenance, 12/09/19 16:05:00 EDT Start Date: 12/09/19 Status: Ordered Pen Tridell, 31 G x 5 mm BD Ultra Fine III See Instructions, # 200 each, Refills 5, Tot. Refills 5, Maintenance, To inject insulin BID for DM II E11.9 PER CHARI GREY NP-C, 10/06/20 10:54:00 EST, SHORT, Compound, 160, cm, 10/05/20 14:31:00 EST, Height, 77.5, kg, 10/05/20 14:31:00 EST, Dry W... Start Date: 10/06/20 Status: Ordered simethicone 80 mg oral tablet, chewable 80 mg, Chew, 3 times a day, PRN, Refills 0, Maintenance, Gas, 03/27/21 9:34:00 EDT, Partial fill upon patient request if the prescription is for a schedule II opioid drug. Start Date: 03/27/21 Status: Ordered simvastatin 10 mg oral tablet 10 mg, 1, tablet, By Mouth, Daily at bedtime, # 90 tablet, Refills 1, Tot. Refills 1, Maintenance, 09/15/21 17:53:00 EST, Route to Pharmacy Electronically, [facility]/pharmacy #[id number], 160, cm, 09/14/21 11:51:00 EST, Height, 75, kg, 09/14/21 11:51:00 EST, Dry... Start Date: 09/15/21 Status: Ordered Skyrizi 150 mg/mL subcutaneous solution [...] [id number], 160, cm, 11/27/21 14:08:00 EDT, Height, 74.8, kg, 11/01/21 15:05:00 EST, Dry Weight Start Date: 01/11/22 Status: Ordered traMADol 50 mg oral tablet See Instructions, TAKE 1-2 TABLETS BY MOUTH EVERY 6 HOURS SCHEDULE FOLLOW VISIT, NEEDED FOR PAIN, # 240 tablet, 5 Refills, Maintenance, 01/17/22 11:33:00 EDT, [facility]/pharmacy #[id number], 160, cm, 11/27/2213:08:00 EDT, Height, 74.8, kg, 11/01/21 15:05:00 E... Start Date: 01/17/22 Status: Ordered Transfer bench Transfer bench, See Instructions, # 1 each, Refills 0, Tot. Refills 0, Maintenance, use as directed. DX Unsteady gait. ICD 10 R26.81 length of need: Lifetime wt:162lbs ht 5'3, 07/07/20 11:31:00 EST, Supply Start Date: 07/07/20 Status: Ordered traZODone 50 mg oral tablet 50 mg, 1, tablet, By Mouth, Daily at bedtime, # 30 tablet, Refills 0, Tot. Refills 0, Maintenance, 05/23/22 13:56:00 EDT, Route to Pharmacy Electronically, [facility]/pharmacy #[id number], Partial fill upon patient request if the prescription is for a schedule II... Start Date: 05/23/22 Status: Ordered Trelegy Ellipta inhalation powder 1 puffs, Inhalation, Daily, at the same time every day, # 3 each, 3 Refills, Maintenance, 04/19/21 11:35:00 EDT, Powder, [facility]/pharmacy #[id number], Partial fill upon patient request if the prescription is for a schedule II opioid drug., 160, cm, 04/19/21 11:... Start Date: 04/19/21 Status: Ordered Tresiba FlexTouch 200 units/mL subcutaneous solution See Instructions, INJECT SUBCUTANEOUSLY TAKING 55 UNITS DAILY, MAX DOSE 140 UNITS, # 9 Unknown, 11 Refills, Soft Stop, 06/21/22 13:29:00 EDT, [facility]/pharmacy #[id number], 160, cm, 05/17/22 9:55:00 EDT, Height, 72.7, kg, 04/24/22 8:34:00 EDT, Dry Weight Start Date: 06/21/22 Status: Ordered Tums 500 mg oral tablet, chewable 500 mg, 1, tablet, Chew, Every 4 hours, PRN, Maintenance, Indigestion, 08/30/20 15:45:00 EST, Partial fill upon patient request Start Date: 08/30/20 Status: Ordered Tylenol 325 mg oral tablet 650 mg, 2, tablet, By Mouth, Every 6 hours, Refills 0, Maintenance, 08/17/20 11:28:00 EST, Partial fill upon patient request if the prescription is for a schedule II opioid drug. Start Date: 08/17/20 Status: Ordered Victoza 18 mg/3 mL subcutaneous solution See Instructions, INJECT 1.8 MG UNDER THE SKIN ONCE DAILY, # 9 Unknown, 5 Refills, Maintenance, 05/07/22 15:49:00 EDT, [id number], 160, cm, 04/24/22 8:34:00 EDT, Height, 72.7, kg, 04/24/22 8:34:00 EDT, Dry Weight Start Date: 05/07/22 Status: Ordered Vitamin D3 1000 intl units [...] (hyperlipidemia) Confirmed Active Hypertension Confirmed Active Lumbosacral spondylosis without myelopathy Confirmed Active OA (osteoarthritis), cervical Confirmed Active Osteoporosis Confirmed Active *[facility] [phone] [place] [employer]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 2Carotid ultrasound 2016 showing bilateral noncritical carotid stenosis. 50-70% bilaterally. 3Per chart review meeting GFR criteria 4Per MOCA done at [facility] 5Patient's ug designer [facility] Dr[facility] Gume Mart Social History Social History Type Response Smoking Status Former smoker, quit more than 30 days ago entered on: 09/28/21 Sex Patient Care team information Care Team Personnel Name: Carmita Enriquez RN Position: [facility] RN Member Role: Primary Care Nurse Name: Mattie Morris RN Position: [facility] RN Member Role: Primary Care Nurse Name: Ranjeet Rushing MD Position: [facility] Primary Care Physician Member Role: PCP Address: Address: [address] [place] [id number]- Name: Yoselyn Bradley RN Position: [facility] RN Member Role: Primary Care Nurse Name: Chari Grey NP Position: [facility] PCO Associate Professional Member Role: Lifetime Consulting Provider Address: Address: [address] [place] [address]- Name: Yariel Fuller RN Position: [facility] RN Member Role: Primary Care Nurse Name: Julius Stringer RN Position: [facility] RN Member Role: Primary Care Nurse Name: Shantell Carter Position: [facility] RN Member Role: Primary Care Nurse Name: Michelle Morris RN Position: [facility] PCO RN Member Role: Primary Care Nurse Care Team Related Persons Name: ADRYAN GOVEA Address: [address] [place] [address] Name: TAMARA GOVEA Address: [address] [place] [address]
--- OUTSIDE RECORDS SUMMARY | 2023-07-07 08:56 | XMS_ITS | Continuity of Care Document ---
Author Name Unknown Organization [facility] Leif lt Address [address] [place] [address]- Care Team Providers Care Special Agent Name Role Phone Ranjeet Rushing MD Primary Care Physician [facility]23 - 05/24/23 [facility] Adult [address] [place] [address]- Allergies, Adverse Reactions, Alerts Substance Reaction Severity [...] sarah 1Result Comment: [05/28/2017] HD [facility]: [id number] 2Location History: [facility] 3Admin Note: VIS GIVEN-DATED 04/04/09 4Admin Note: vis given 5Admin Note: VIS given 6Admin Note: VIS-GIVEN 7Location History: [facility] 8Location History: [facility] 9Evelyne Comment: [10/17/2015] PER NICO AT [facility] 10Admin Note: VIS GIVEN 11Admin Note: [...] Refills, Maintenance, 04/01/23 15:47:00 EDT, Powder, [facility]/pharmacy #[id number], 2 [...] 10:34:00 EDT, Route to Pharmacy Electronically, [facility], 160, cm, 04/14/23 20:00:00 EDT, Height, [...] Status: Ordered BD UF SHORT PEN NEEDLE [id number] BD UF SHORT PEN NEEDLE [id number], See Instructions, # 200 Unknown, 5 Refills, USE TO INJECT INSULIN TWICE A DAY, 160, cm, 11/27/21 14:08:00 EDT, Height, 74.8, kg, 11/01/21 15:05:00 EST, Dry Weight Start Date: 11/30/21 Status: Ordered colchicine 0.6 mg oral capsule 1 capsule = 0.6 mg, By Mouth, 2 times a day, # 20 capsule, 0 Refills, Maintenance, 12/31/22 10:10:00 EDT, Capsule, [facility]/pharmacy #[id number], Partial fill upon [...] 10:34:00 EDT, Route to Pharmacy Electronically, [facility], 160, cm, 04/14/23 20:00:00 EDT, Height, 68.5, [...] 11 Refills, Maintenance, 04/18/23 10:34:00 EDT, [facility], 160, cm, 04/14/23 20:00:00 EDT, Height, 68.5, [...] 11/28/22... Start Date: 12/13/22 Status: Ordered Pen Knox, 31 G x 5 mm BD Ultra [...] 04/18/23 10:34:00 EDT,[facility], [facility], 160, cm, 04/14/23 20:00:00 EDT, Height,68.5, [...] 10:33:00 EDT, [facility], 160, cm, 04/14/23 20:00:00 EDT, Height, 68.5, [...] 04/18/23 10:33:00 EDT,Route to Pharmacy Electronically, [facility], 160, cm, 04/14/23 20:00:00 EDT, Height,68.5, kg, 04/14/23 20:00:00 EDT, Dry Weight Start Date: 04/18/23 Status: Ordered Trelegy Ellipta inhalation powder 1 puffs, Inhalation, Daily, at the same time every day, # 3 each, 1 Refills, Maintenance, 04/01/23 15:47:00 EDT, Powder, [facility]/pharmacy #[id number], Partial fill upon [...] 11 Refills, Maintenance, 04/18/23 10:34:00 EDT, [facility], 160, cm, 04/14/23 20:00:00 EDT, Height, [...] Active Osteoporosis Confirmed Active *[facility] [phone] 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 Gume Mart 6MOCA 20 Social History Social History Type Response Smoking Status Former smoker, quit more than 30 days ago; Other: QUIYT COUPLE YEARS AGO; entered on: 11/13/22 Sex Patient Care team information Care Team Personnel Name: Trinity Lloyd MD Position: [facility] Outreach Member Role: Lifetime Consulting Physician Name: Carmita Enriquez RN Position: [facility] RN Member Role: Primary Care Nurse Name: Mattie Morris RN Position: [facility] RN Supv Member Role: Primary Care Nurse Name: Ranjeet Rushing MD Position: [facility] Physician - Primary Care Member Role: PCP Address: Address: [address] [place] [phone]- [place] Name: Yoselyn Bradley RN Position: [facility] RN Member Role: Primary Care Nurse Name: Chari Grey NP Position: [facility] PCO Associate Professional Member Role: Lifetime Consulting Provider Address: Address: [address] [place] [phone]- [place] Name: Yariel Fuller RN Position: [facility] RN Member Role: Primary Care Nurse Name: Julius Stringer RN Position: [facility] RN Member Role: Primary Care Nurse Name: Shantell Carter Position: [facility] RN Member Role: Primary Care Nurse Name: Libia Rivera RN Position: [facility] RN Member Role: Primary Care Nurse Name: Michelle Morris RN Position: [facility] AMB Nurse Member Role: Primary Care Nurse Care Team Related Persons Name: JEFERSON ADRYAN Address: [place] [address] [address] Name: TAMARA GOVEA Address: home [address] [address]
--- OUTSIDE RECORDS SUMMARY | 2023-07-07 08:56 | XMS_ITS | Continuity of Care Document ---
Author Name Unknown Organization [facility] Paulino Leif lt Address [address] [place] [address]- Care Team Providers Care Cartography Supervisor Name Role Phone Ranjeet Rushing MD Primary Care Physician [phone] [facility] 10[facility]22 - 11/21/22 [facility] Adult [address] [place] [address]- Allergies, Adverse Reactions, Alerts Substance Reaction Severity [...] sarah 1Result Comment: [05/28/2017] [facility]: [id number] 2Location History: [facility] 3Admin Note: VIS GIVEN-DATED 04/04/09 4Admin Note: vis given 5Admin Note: VIS given 6Admin Note: VIS-GIVEN 7Location History: [facility] 8Location History: [facility] 9Resesperanza Comment: [10/17/2015] PER NICO AT [facility] 10Admin Note: VIS GIVEN 11Admin [...] 11 Refills, Maintenance, 05/07/22 16:00:00 EDT, Powder, [facility]/pharmacy #[id number], 2 puffs Inhalation Every 6 hours,PRN:as needed, 160, cm, 04/24/22 8:34:00 EDT, Height, 72.7, kg, 04/24/22 8:34:00... Start Date: 05/07/22 Status: Ordered alendronate 70 mg oral tablet 1 tablet, By Mouth, Every week, # 12 tablet, 1 Refills, Maintenance, 07/12/22 10:05:00 EST, [id number], 160, cm, 07/09/22 14:04:00 EST, Height, 72.7, kg, 04/24/22 8:34:00 EDT, Dry Weight Start Date: 07/12/22 Status: Ordered allopurinol 300 mg oral tablet 1, tablet, By Mouth, Daily, # 90 tablet, Refills 0, Route to Pharmacy Electronically, [id number], 160, cm, 02/21/22 15:11:00 EDT, Height, 74.8, kg, 11/01/21 15:05:00 EST, Dry Weight Start Date: 03/27/22 Status: Ordered BACK BRACE BACK BRACE, See Instructions, # 1 each, Refills 0, Tot. Refills 0, Maintenance, DX BACK PAIN M54.9 DANTE LIFETIME HT 5'3 WT 182 LB, 07/23/16 14:35:27, Compound Start Date: 07/23/16 Status: Ordered BD UF SHORT PEN NEEDLE [id number] BD UF SHORT PEN NEEDLE [id number], See Instructions, # 200 Unknown, 5 Refills, USE TO INJECT INSULIN TWICE A DAY, 160, cm, 11/27/21 14:08:00 EDT, Height, 74.8, kg, 11/01/21 15:05:00 EST, Dry Weight Start Date: 11/30/21 Status: Ordered clonazePAM 0.5 mg oral tablet 1 tablet = 0.5 mg, By Mouth, Daily, PRN Anxiety, 0 Refills, Maintenance, 11/12/22 23:16:00 EDT, Tablet, Partial fill upon patient request if the prescription is for a schedule II opioid drug. Start Date: 11/12/22 Status: Ordered Compression Stockings See Instructions, # [...] EDT, Compound Start Date: 05/11/19 Status: Ordered [facility] VITAMIN D3 25 MCG SOFTGEL [facility] VITAMIN D3 25 MCG SOFTGEL, 1, capsule, By Mouth, Daily, # 90 capsule, 1 Refills, 160, cm, 10/16/21 14:42:00 EST, Height, 75, kg, 09/14/21 11:51:00 EST, Dry Weight Start Date: 10/17/21 Status: Ordered cyanocobalamin 500 mcg oral tablet 1 tablet = 500 mcg, By Mouth, Daily, # 90 tablet, 3 Refills, Maintenance, 04/12/22 16:02:00 EDT, Tablet, [facility]/pharmacy #[id number], 160, cm, 04/10/22 14:31:00 [...] 60 mg, 3, capsule, By Mouth, Daily, # 180 capsule, Refills 1, Tot. Refills 1, Maintenance, 05/23/2213:56:00 EDT, Route to Pharmacy Electronically, [facility]/pharmacy #[id number], Partial fill upon patient [...] Maintenance, TEST BS TID DX E11.9 IDDMII, 10/21/22 20:05:00 EST, Compound, 160, cm, 10/18/22 10:36:00 EST, Height, 71.8, kg, 07/23/22 20:25:00 EST, Dry Weight Start Date: 10/21/22 Status: Ordered furosemide 40 mg oral tablet 1, tablet, By Mouth, 2 times a day, # 180 tablet, Refills 1, Route to Pharmacy Electronically, [id number], 160, cm, 02/21/22 15:11:00 EDT, Height, 74.8, kg, 11/01/21 15:05:00 EST, Dry Weight Start Date: 03/12/22 Status: Ordered Lidoderm 5% film 1 patch, Topically, Daily, # 30 patch, 11 Refills, Maintenance, 12/28/21 15:03:00 EDT, [facility]/pharmacy#[id number], Partial fill upon patient request if the prescription is for a schedule II opioid drug., 1 patch Topically Daily,x30 days, 160, cm, 11/27/21 14:... Start Date: 12/28/21 Stop Date: 12/23/22 Status: Ordered Lyrica 150 mg oral capsule 1 capsule = 150 mg, By Mouth, 2 times a day, DOSAGE INCREASE, # 60 capsule, 3 Refills, Maintenance,08/05/22 10:44:00 EST, Capsule, [facility]/pharmacy #[id number], 160, cm, 07/23/22 20:25:00 EST, Height, 71.8, kg, 07/23/22 20:25:00 EST, Dry Weight Start Date: 08/05/22 Status: Ordered magnesium oxide 400 mg oral tablet 1 tablet, By Mouth, Daily, # 100 tablet, 2 Refills, [id number], 160, cm, 02/21/22 15:11:00 EDT, Height, 74.8, kg, 11/01/21 15:05:00 EST, Dry Weight Start Date: 03/28/22 Status: Ordered Melatonin 3 mg oral tablet 1 tablet, By Mouth, Daily at bedtime, PRN NEEDED, # 90 tablet, 3 Refills, Maintenance, 09/12/22 11:29:00 EST, [id number], 90, TAKE 1 TABLET BY MOUTH AT BEDTIME NEEDED, 160, cm, 07/23/22 20:25:00 EST, Height, 71.8, kg, 07/23/22 20:25:00 EST,... Start Date: 09/12/22 Status: Ordered Miconazole 2% Topical Ointment 1 applicator, Topically, Daily, 0 Refills, Maintenance, Ointment Start Date: 03/27/21 Status: Ordered Milk of Magnesia Liquid 30 mL, By Mouth, Daily, PRN Constipation, 0 Refills, Maintenance, 08/17/20 11:31:00 EST, Suspension, Partial fill upon patient request if the prescription is for a schedule II opioid drug. Start Date: 08/17/20 Status: Ordered mirtazapine 45 mg oral tablet 1 tablet = 45 mg, By Mouth, Daily at bedtime, # 30 tablet, 0 Refills, Maintenance, 11/12/22 23:14:00 EDT, Tablet, Partial fill upon patient request if the prescription is for a schedule II opioid drug. Start Date: 11/12/22 Status: Ordered Multivitamin 1 tablet, By Mouth, Daily, 0 Refills, Maintenance, 12/09/19 16:05:00 EDT Start Date: 12/09/19 Status: Ordered Pen [place], 31 G x 5 mm BD Ultra Fine III See Instructions, # 200 each, Refills 5, Tot. Refills 5, Maintenance, To inject insulin BID for DM II E11.9 PER CHARI GREY NP-C, 10/06/20 10:54:00 EST, SHORT, Compound, 160, cm, 10/05/20 14:31:00 EST, Height, 77.5, kg, 10/05/20 14:31:00 EST, Dry W... Start Date: 10/06/20 Status: Ordered simvastatin 10 mg oral tablet 10 mg, 1, tablet, By Mouth, Daily at bedtime, # 90 tablet, Refills 3, Tot. Refills 3, Maintenance, 07/15/22 11:54:00 EST, Route to Pharmacy Electronically, [facility]/pharmacy #[id number], 160, cm, 07/09/22 14:04:00 EST, Height, 72.7, kg, 04/24/22 8:34:00 EDT, Dry... Start Date: 07/15/22 Status: Ordered Skyrizi 150 mg/mL subcutaneous solution = 150 mg, Subcutaneous Infusion, 0 Refills, Maintenance, 11/01/21 15:02:00 EST, Partial fill upon patient request if the prescription is for a schedule II opioid drug. Start Date: 11/01/21 Status: Ordered spironolactone 100 mg oral tablet 1, tablet, By Mouth, Daily, # 90 tablet, Refills 1, Tot. Refills 1, 07/26/22 19:58:00 EST, Route toPharmacy Electronically, [facility]/pharmacy #[id number], 160, cm, 07/23/22 20:25:00 EST, Height, 71.8, kg, 07/23/22 20:25:00 EST, Dry Weight Start Date: 07/26/22 Status: Ordered traMADol 50 mg oral tablet See Instructions, TAKE 1-2 TABLETS BY MOUTH EVERY 6 HOURS SCHEDULE FOLLOW VISIT, NEEDED FOR PAIN, # 240 tablet, 5 Refills, Maintenance, 08/05/22 10:45:00 EST, [facility]/pharmacy #[id number], 160, cm, 07/23/2220:25:00 EST, Height, 71.8, kg, 07/23/22 20:25:00 E... Start Date: 08/05/22 Status: Ordered Transfer bench Transfer bench, See [...] 05/23/22 13:56:00 EDT, Route to Pharmacy Electronically, [facility]/pharmacy #[id number], Partial fill upon patient request if the prescription is for a schedule II... Start Date: 05/23/22 Status: Ordered Trelegy Ellipta inhalation powder 1 puffs, Inhalation, Daily, at the same time every day, # 3 each, 3 Refills, Maintenance, 04/19/21 11:35:00 EDT, Powder, [facility]/pharmacy #[id number], Partial fill upon patient request if the prescription is for a schedule II opioid drug., 160, cm, 04/19/21 11:... Start Date: 04/19/21 Status: Ordered Tresiba FlexTouch 200 units/mL subcutaneous solution See Instructions, INJECT SUBCUTANEOUSLY TAKING 55 UNITS DAILY, MAX DOSE 140 UNITS, # 9 Unknown, 11 Refills, Soft Stop, 06/21/22 13:29:00 EDT, [facility]/pharmacy #[id number], 160, cm, 05/17/22 9:55:00 EDT, Height, 72.7, kg, 04/24/22 8:34:00 EDT, Dry Weight Start Date: 06/21/22 Status: Ordered Tylenol 325 mg oral tablet [...] Refills, Maintenance, 05/07/22 15:49:00 EDT, [facility], 160, cm, 04/24/22 8:34:00 EDT, Height, 72.7, kg, 04/24/22 8:34:00 EDT, Dry Weight Start Date: 05/07/22 Status: Ordered VITAMIN D3 1,000 UNIT SOFTGEL VITAMIN D3 1,000 UNIT SOFTGEL, 1, capsule, By Mouth, Daily, # 90 capsule, 1 Refills, Maintenance, 10/07/22 8:49:00 EST, 160, cm, 07/23/22 20:25:00 EST, Height, 71.8, kg, 07/23/22 20:25:00 EST, Dry Weight Start Date: 10/07/22 Status: Ordered Vitamin D3 1000 intl units oral capsule 1 capsule = 1,000 International_Units, By Mouth, Daily, # 90 capsule, 1 Refills, Maintenance, 09/25/20 7:44:00 EST, Capsule, [facility]/pharmacy #[id number], resent from 08/14, 160, [...] (osteoarthritis), cervical Confirmed Active Osteoporosis Confirmed Active *[facility] [phone] 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 [...] Ranjeet Rushing MD Position: [facility] Primary Care Physician Member Role: PCP Address: Address: [address] [place] [id number]- Name: Yoeslyn Bradley RN Position: [facility] RN Member Role: Primary Care Nurse Name: Destiny Go RN Position: [facility] RN Member Role: Primary Care Nurse Name: Chari Grey NP Position: [facility] PCO Associate Professional Member Role: Lifetime Consulting Provider Address: Address: [address] [place] [address]- Name: Yariel Fuller RN Position: [facility] RN Member Role: Primary Care Nurse Name: Julius Stringer RN Position: [facility] RN Member Role: Primary Care Nurse Name: Shantell Carter Position: [facility] RN Member Role: Primary Care Nurse Name: Michelle Morris RN Position: [facility] PCO RN Member Role: Primary Care Nurse Care Team Related Persons Name: ADRYAN GOVEA Address: home [address] [facility] [address] [place] [address] Name: TAMARA GOVEA Address: home [address] [facility] [address] [place] [address]
--- OUTSIDE RECORDS SUMMARY | 2023-07-07 08:56 | XMS_ITS | Continuity of Care Document ---
Author Name Unknown Organization [facility] Leif lt Address [address] [place] [address]- Care Team Providers Care Travel Attendants Name Role Phone Ranjeet Rushing MD Primary Care Physician [phone] [facility] 01[facility]18[facility]23 - 02/17/23 [facility] Adult [address] [place] [address]- Allergies, Adverse Reactions, Alerts Substance Reaction Severity [...] 07/19/08 Gi sarah 1Result Comment: [05/28/2017] [facility]: [id number] 2Location History: [facility] 3Admin Note: VIS GIVEN-DATED 04/04/09 4Admin Note: vis given 5Admin Note: VIS given 6Admin Note: VIS-GIVEN 7Location History: [facility] 8Location History: [facility] 9Resesperanza Comment: [10/17/2015] PER NICO AT [facility] 10Admin Note: VIS GIVEN 11Admin Note: [...] 2 Refills, Maintenance, 01/20/23 22:52:00 EDT, Powder, [facility]/pharmacy #[id number], 2 puffs Inhalation Every 6 [...] 16:42:00 EDT, Route to Pharmacy Electronically, [facility], 161, cm, 02/04/23 15:03:00 EDT, Height, 77.2, kg, 11/13/22 13:42:00 EDT, Dry Weight Start Date: 02/04/23 Status: Ordered BD UF SHORT PEN NEEDLE [id number] BD UF SHORT PEN NEEDLE [id number], See Instructions, # 200 Unknown, 5 Refills, USE TO INJECT INSULIN TWICE A DAY, 160, cm, 11/27/21 14:08:00 EDT, Height, 74.8, kg, 11/01/21 15:05:00 EST, Dry Weight Start Date: 11/30/21 Status: Ordered colchicine 0.6 mg oral capsule 1 capsule = 0.6 mg, By Mouth, 2 times a day, # 20 capsule, 0 Refills, Maintenance, 12/31/22 10:10:00 EDT, Capsule, [facility]/pharmacy #[id number], Partial fill upon patient request if the [...] EDT, Route to Pharmacy Electronically, [facility], 161, cm, 02/04/23 15:03:00 EDT, Height, [...] 0 Refills, Maintenance, 02/04/23 16:42:00 EDT, [facility], 161, cm, 02/04/23 15:03:00 EDT, Height, [...] 11/28/22... Start Date: 12/13/22 Status: Ordered Pen [place], 31 G x 5 mm BD Ultra [...] 0 Refills, Maintenance, 11/28/22 13:19:00 EDT, Tablet, [facility]/pharmacy #[id number], Partial fill upon patient request if t... Start Date: 11/28/22 Status: Ordered simvastatin 10 mg oral tablet 1, tablet, By Mouth, Daily at bedtime, # 28 tablet, Refills 0, Maintenance, 02/04/23 16:42:00 EDT, Route to Pharmacy Electronically, [facility], 161, cm, 02/04/23 15:03:00 EDT, Height, [...] 16:42:00 EDT, Route to Pharmacy Electronically, [facility], 161, cm, 02/04/23 15:03:00 EDT, Height, [...] 0 Refills, Maintenance, 02/04/23 16:42:00 EDT, [facility], 161, cm, 02/04/23 15:03:00 EDT, Height, [...] Confirmed Active Osteoporosis Confirmed Active *[facility] [phone] 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 2Carotid ultrasound 2016 showing bilateral noncritical carotid stenosis. 50-70% bilaterally. 3Per chart review meeting GFR criteria 4Per MOCA done at [facility] 5Patient's software quality specialist is [facility] and patient sees Dr. Gume [...] Primary Care Member Role: PCP Address: Address: [address] [place] [address] [place] [address]- [place] Name: Yoselyn Bradley RN Position: [facility] RN Member Role: Primary Care Nurse Name: Chari Grey NP Position: [facility] PCO Associate Professional Member Role: Lifetime Consulting Provider Address: Address: [address] [place] [address]- [place] Name: Yariel Fuller RN [facility] [...] Persons Name: ADRYAN GOVEA Address: home [address] [facility] [address] [place] [address] Name: TAMARA GOVEA Address: [address] [address]
--- OUTSIDE RECORDS SUMMARY | 2023-07-07 08:57 | XMS_ITS | Continuity of Care Document ---
Author Name Unknown Organization [facility] Leif lt Address [address] [place] [address]- Care Team Providers Care Mold Parter Name Role Phone Ranjeet Rushing MD Primary Care Physician [facility]23 - 05/22/23 [facility] Adult [address] [place] [address]- Attending Physician: Admtr, [id number] Admitting Physician: Admtr, [...] 11 07/19/08 Gi sarah 1Result Comment: [05/28/2017] [facility]: [id number] 2Location History: [facility] 3Admin Note: VIS GIVEN-DATED 04/04/09 4Admin Note: vis given 5Admin Note: VIS given 6Admin Note: VIS-GIVEN 7Location History: [facility] 8Location History: [facility] DEANGELO HOOK 9Resesperanza Comment: [10/17/2015] PER NICO AT [facility] 10Admin Note: VIS GIVEN [...] 2 Refills, Maintenance, 04/01/23 15:47:00 EDT, Powder, [facility]/pharmacy #[id number], 2 puffs Inhalation [...] 10:34:00 EDT, Route to Pharmacy Electronically, [facility], 160, cm, 04/14/23 20:00:00 EDT, Height, [...] Status: Ordered BD UF SHORT PEN NEEDLE [id number] BD UF SHORT PEN NEEDLE [id number], See Instructions, # 200 Unknown, 5 Refills, USE TO INJECT INSULIN TWICE A DAY, 160, cm, 11/27/21 14:08:00 EDT, Height, 74.8, kg, 11/01/21 15:05:00 EST, Dry Weight Start Date: 11/30/21 Status: Ordered colchicine 0.6 mg oral capsule 1 capsule = 0.6 mg, By Mouth, 2 times a day, # 20 capsule, 0 Refills, Maintenance, 12/31/22 10:10:00 EDT, Capsule, [facility]/pharmacy #[id number], Partial fill upon [...] 04/18/23 10:33:00 EDT, Route toPharmacy Electronically, [facility], 160, cm, 04/14/23 20:00:00 [...] EDT, Route to Pharmacy Electronically, [facility], 160, cm, 04/14/23 20:00:00 EDT, Height, [...] 11 Refills, Maintenance, 04/18/23 10:34:00 EDT, [facility], 160, cm, 04/14/23 20:00:00 EDT, [...] 11/28/22... Start Date: 12/13/22 Status: Ordered Pen [place], 31 G x 5 mm BD Ultra [...] 2 Refills, Maintenance, 05/16/23 14:49:00 EDT, [facility], 160, cm, 04/14/23 20:00:... Start Date: 05/16/23 Status: Ordered simvastatin 10 mg oral tablet 1, tablet, By Mouth, Daily at bedtime, # 28 tablet, Refills 11, Maintenance, 04/18/23 10:34:00 EDT,Route to Pharmacy Electronically, [facility], 160, cm, 04/14/23 20:00:00 EDT, Height,68.5, [...] 10:33:00 EDT, Route to Pharmacy Electronically, [facility], 160, cm, 04/14/23 20:00:00 EDT, Height, [...] 10:33:00 EDT,Route to Pharmacy Electronically, [facility], 160, cm, 04/14/23 20:00:00 EDT, Height,68.5, kg, 04/14/23 20:00:00 EDT, Dry Weight Start Date: 04/18/23 Status: Ordered Trelegy Ellipta inhalation powder 1 puffs, Inhalation, Daily, at the same time every day, # 3 each, 1 Refills, Maintenance, 04/01/23 15:47:00 EDT, Powder, [facility]/pharmacy #[id number], Partial fill upon [...] 11 Refills, Maintenance, 04/18/23 10:34:00 EDT, [facility], 160, cm, 04/14/23 20:00:00 EDT, Height, [...] (osteoarthritis), cervical Confirmed Active Osteoporosis Confirmed Active *[facility] [phone] 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 2Carotid ultrasound 2016 showing bilateral noncritical carotid stenosis. 50-70% bilaterally. 3Per chart review meeting GFR criteria 4Per MOCA done at [facility] 5Patient's para machine operator is [facility] and patient sees Dr. Gume Mart 6MOCA 20 Social History Social History Type Response Smoking Status Former smoker, quit more than 30 days ago; Other: QUIYT COUPLE YEARS AGO; entered on: 11/13/22 Sex Hospital Consult note * Event Display: Inpatient Consult Note, Non-BH Authored Date: Note * Event Display: [facility] Authored Date: * Event Display: [facility] Authored Date: Cardiology * Event Display: Non BH Cardiovascular Results Authored Date: * Event Display: Non BH Cardiovascular Results Authored Date: Laboratory * Event Display: Non BH Lab Results Authored Date: * Event Display: Non BH Lab Results Authored Date: * Event Display: Non BH Lab Results Authored Date: Radiology * Event Display: X-Ray Hand/Wrist, Non- BH Authored Date: * Event Display: X-Ray Hand/Wrist, Non- BH Authored Date: * Event Display: X-Ray Upper Extremity, Non- BH Authored Date: * Event Display: X-Ray Hand/Wrist, Non- BH Authored Date: * Event Display: Ultrasound Lower Extremity, Non-BH Authored Date: * Event Display: X-Ray Spine, Non- BH Authored Date: * Event Display: Ultrasound Abdomen, Non-BH Authored Date: * Event Display: CT Scan Abdomen, Non- BH Authored Date: * Event Display: X-Ray Hip/Groin, Non- BH Authored Date: * Event Display: Ultrasound Abdomen, Non-BH Authored Date: * Event Display: X-Ray Upper Extremity, Non- BH Authored Date: * Event Display: Bone Density, Non-BH Authored Date: * Event Display: MRI Spine, Non- BH Authored Date: * Event Display: X-Ray Spine, Non- BH Authored Date: * Event Display: X-Ray Neck, Non- BH Authored Date: * Event Display: X-Ray Spine, Non- BH Authored Date: * Event Display: IR Special Procedures, Non-BH Authored Date: * Event Display: Ultrasound Abdomen, Non-BH Authored Date: MG Breast Views * Event Display: MM Mammogram, Non- BH Authored Date: * Event Display: MM Mammogram, Non- BH Authored Date: * Event Display: MM Mammogram, Non- BH Authored Date: Patient Care team information Care Team Personnel Name: Trinity Lloyd MD Position: [facility] Outreach Member Role: Lifetime Consulting Physician Name: Carmita Enriquez RN Position: [facility] RN Member Role: Primary Care Nurse Name: Mattie Morris RN Position: [facility] RN Supv Member Role: Primary Care Nurse Name: Ranjeet Rushing MD Position: [facility] Physician - Primary Care Member Role: PCP Address: Address: [address] [place] [address] - Name: Yoselyn Bradley RN Position: [facility] RN Member Role: Primary Care Nurse Name: Chari Grey NP Position: [facility] PCO Associate Professional Member Role: Lifetime Consulting Provider Address: Address: [address] [place] [address] - Name: Yariel Fuller RN Position: [facility] RN Member Role: Primary Care Nurse Name: Julius Stringer RN Position: [facility] RN Member Role: Primary Care Nurse Name: Shantell Carter Position: [facility] RN Member Role: Primary Care Nurse Name: Libia Rivera RN Position: [facility] RN Member Role: Primary Care Nurse Name: Michelle Morris RN Position: [facility] AMB Nurse Member Role: Primary Care Nurse Care Team Related Persons Name: ADRYAN GOVEA Address: home [address] [facility] [address] [place], [place] Name: TAMARA GOVEA Address: home [address] [facility] [address] [place] [address]
--- OUTSIDE RECORDS SUMMARY | 2023-07-07 08:57 | XMS_ITS | Continuity of Care Document ---
Author Name Unknown Organization [facility] Paulino Leif lt Address [address] [place] [address]- Care Team Providers Care Sales Representatives Name Role Phone Kristan SUTTON, Ranjeet Beatty Primary Care Physician [facility]counter [facility] Date(s): 10/18/22 - 10/25/22 [facility] Adult [address] [place] [address]- Attending Physician: Chari Grey NP Referring Physician: [...] Gi sarah SARS-CoV-2 (COVID-19) mRNA BNT-162b2 vac 10/19/21 Recorded SARS-CoV-2 (COVID-19) mRNA BNT-162b2 vac 09/24/20 [...] 07/19/08 Gi sarah 1Result Comment: [05/28/2017] HD [facility] NAMED [facility]: [id number] 2Location History: [facility] 3Admin Note: VIS GIVEN-DATED 04/04/09 4Admin Note: vis given 5Admin Note: VIS given 6Admin Note: VIS-GIVEN 7Location History: [facility] ER 8Location History: [facility] 9Evelyne Comment: [10/17/2015] PER NICO AT [facility] 10Admin Note: VIS GIVEN 11Admin [...] 11 Refills, Maintenance, 05/07/22 16:00:00 EDT, Powder, [facility]/pharmacy #0697, 2 puffs Inhalation Every 6 hours,PRN:as needed, 160, cm, 04/24/22 8:34:00 EDT, Height, 72.7, kg, 04/24/22 8:34:00... Start Date: 05/07/22 Status: Ordered alendronate 70 mg oral tablet 1 tablet, By Mouth, Every week, # 12 tablet, 1 Refills, Maintenance, 07/12/22 10:05:00 EST, [facility], 160, cm, 07/09/22 14:04:00 EST, Height, 72.7, kg, 04/24/22 8:34:00 EDT, Dry Weight Start Date: 07/12/22 Status: Ordered allopurinol 300 mg oral tablet 1, tablet, By Mouth, Daily, # 90 tablet, Refills 0, Route to Pharmacy Electronically, [facility], 160, cm, 02/21/22 15:11:00 EDT, Height, 74.8, kg, 11/01/21 15:05:00 EST, Dry Weight Start Date: 03/27/22 Status: Ordered BACK BRACE BACK BRACE, See Instructions, # 1 each, Refills 0, Tot. Refills 0, Maintenance, DX BACK PAIN M54.9 DANTE LIFETIME HT 5'3 WT 182 LB, 07/23/16 14:35:27, Compound Start Date: 07/23/16 Status: Ordered BD UF SHORT PEN NEEDLE [id number] BD UF SHORT PEN NEEDLE [id number], See Instructions, # 200 Unknown, 5 Refills, [...] EDT, Compound Start Date: 05/11/19 Status: Ordered [facility] VITAMIN D3 25 MCG SOFTGEL [facility] 25 MCG SOFTGEL, 1, capsule, By Mouth, Daily, # 90 capsule, 1 Refills, 160, cm, 10/16/21 14:42:00 EST, Height, 75, kg, 09/14/21 11:51:00 EST, Dry Weight Start Date: 10/17/21 Status: Ordered cyanocobalamin 500 mcg oral tablet 1 tablet = 500 mcg, By Mouth, Daily, # 90 tablet, 3 Refills, Maintenance, 04/12/22 16:02:00 EDT, Tablet, [facility]/pharmacy #0693, 160, cm, 04/10/22 14:31:00 EDT, Height, [...] Maintenance, 05/23/2213:56:00 EDT, [facility] Pharmacy Electronically, [facility], 160, cm, 02/21/22 15:11:00 EDT, Height, 74.8, kg, 11/01/21 15:05:00 EST, Dry Weight Start Date: 03/12/22 Status: Ordered Lidoderm 5% film 1 patch, Topically, Daily, # 30 patch, 11 Refills, Maintenance, 12/28/21 15:03:00 EDT, [facility]/pharmacy#0693, Partial fill upon patient request if the prescription is for a schedule II opioid drug., 1 patch Topically Daily,x30 days, 160, cm, 11/27/21 14:... Start Date: 12/28/21 Stop Date: 12/23/22 Status: Ordered Lyrica 150 mg oral capsule 1 capsule = 150 mg, By Mouth, 2 times a day, DOSAGE INCREASE, # 60 capsule, 3 Refills, Maintenance,08/05/22 10:44:00 EST, Capsule, [facility]/pharmacy #0693, 160, cm, 07/23/22 20:25:00 EST, Height, 71.8, kg, 07/23/22 20:25:00 EST, Dry Weight Start Date: 08/05/22 Status: Ordered magnesium oxide 400 mg oral tablet 1 tablet, By Mouth, Daily, # 100 tablet, 2 Refills, [facility], 160, cm, 02/21/22 15:11:00 EDT, Height, 74.8, kg, 11/01/21 15:05:00 EST, Dry Weight Start Date: 03/28/22 Status: Ordered Melatonin 3 mg oral tablet 1 tablet, By Mouth, Daily at bedtime, PRN NEEDED, # 90 tablet, 3 Refills, Maintenance, 09/12/22 11:29:00 EST, [facility], 90, TAKE 1 TABLET BY MOUTH AT [...] bedtime, # 90 tablet, 0 Refills, Maintenance, 08/30/22 18:27:00 EST, Tablet, [facility]/pharmacy #0693, Partial fill upon patient request if the prescription is for a schedule II opioid drug., 160, cm, 07/23/22 20:25:00 E... Start Date: 08/30/22 Status: Ordered Multivitamin 1 tablet, By Mouth, Daily, 0 Refills, Maintenance, 12/09/19 16:05:00 EDT Start Date: 12/09/19 Status: Ordered Pen [place], 31 G x 5 mm BD Ultra [...] 07/15/22 11:54:00 EST, Route to Pharmacy Electronically, [facility]/pharmacy #0693, 160, cm, 07/09/22 14:04:00 EST, Height, [...] 1, 07/26/22 19:58:00 EST, Route toPharmacy Electronically, [facility]/pharmacy #0693, 160, cm, 07/23/22 20:25:00 EST, Height, 71.8, kg, 07/23/22 20:25:00 EST, Dry Weight Start Date: 07/26/22 Status: Ordered traMADol 50 mg oral tablet See Instructions, TAKE 1-2 TABLETS BY MOUTH EVERY 6 HOURS SCHEDULE FOLLOW VISIT, NEEDED FOR PAIN, # 240 tablet, 5 Refills, Maintenance, 08/05/22 10:45:00 EST, [facility], 160, cm, 07/23/2220:25:00 EST, Height, 71.8, [...] 05/23/22 13:56:00 EDT, Route to Pharmacy Electronically, [facility]/pharmacy #0693, Partial fill upon patient request if the prescription is for a schedule II... Start Date: 05/23/22 Status: Ordered Trelegy Ellipta inhalation powder 1 puffs, Inhalation, Daily, at the same time every day, # 3 each, 3 Refills, Maintenance, 04/19/21 11:35:00 EDT, Powder, [facility]/pharmacy #0693, Partial fill upon patient request if the prescription is for a schedule II opioid drug., 160, cm, 04/19/21 11:... Start Date: 04/19/21 Status: Ordered Tresiba FlexTouch 200 units/mL subcutaneous solution See Instructions, INJECT SUBCUTANEOUSLY TAKING 55 UNITS DAILY, MAX DOSE 140 UNITS, # 9 Unknown, 11 Refills, Soft Stop, 06/21/22 13:29:00 EDT, [facility]/pharmacy #0693, 160, cm, 05/17/22 9:55:00 EDT, Height, [...] Unknown, 5 Refills, Maintenance, 05/07/22 15:49:00 EDT, [facility], 160, cm, 04/24/22 8:34:00 EDT, Height, 72.7, [...] 1 Refills, Maintenance, 09/25/20 7:44:00 EST, Capsule, [facility]/pharmacy #0693, resent from 08/14, 160, [...] Confirmed Active Osteoporosis Confirmed Active *[facility] [phone] 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 Gume Mart 6MOCA 20 Vital Signs Most recent to oldest [Reference Range]: 1 Height 160 cm (10/18/22 10:36 AM) Weight 68.2 kg (10/18/22 10:36 AM) Oxygen Saturation [94-100 %] 96 % (10/18/22 10:36 AM) Pulse Rate [55-90 bpm] 86 bpm (10/18/22 10:36 AM) Body Mass Index [18.5-24.99 kg/m2] 26.64 kg/m2 *H* (10/18/22 10:36 AM) Blood Pressure [90-138/55-84 mm Hg] 102/ 60mm Hg (10/18/22 10:36 AM) Respiratory Rate [16-30 br/min] 16 br/mi n (10/18/22 10:36 AM) Mode of Delivery (Oxygen) Room air (10/18/22 10:36 AM) Blood pressure sites Arm, right (10/18/22 10:36 AM) Weight Obtained Via Standing scale (10/18/22 10:36 AM) Social History Social History Type Response Smoking Status Former smoker, quit more than 30 days ago entered on: 09/28/21 Sex Note * Valerie Giordano: PERFORM, SIGN, VERIFY Event Display: Patient Education/Instruction Authored Date: [id number] [facility] *BMP So Paulino Douglas Clinical Summary Name RAFAEL GOVEA Age 72 Years 1950 PCP Kristan SUTTON, Ranjeet Beatty PCP Visit Date 10/18/2022 10:26:00 Additional Instructions: Scheduled Appointments?? Future Appointments ?[facility] ?[address]??[place],??[place],??[address] ?Phone:??[phone]?Fax:??-- ?Appt. Date:??10/18/2022?6:15 PM ?Scheduled Provider:??[facility] US Rm 3 Follow-Up Instructions ?? With: Address: When: Matilda LOZADA, Chari Santos [address] [place] [address] [address] [place], [place] [id number] Vascular Therapies (1) In 3 months Comments: 40 min Diagnosis Other specified soft tissue disorders Medications: Please continue your medications until treatment [...] oral tablet) 1 tab(s) Oral every week. Refills: 1. Next Dose: Allopurinol (allopurinol 300 mg oral tablet) 1 tab(s) Oral Daily. Refills: 0. Next Dose: Cholecalciferol (Vitamin D3 1000 intl units oral capsule) 1 capsule Oral Daily. Refills: 1. Next Dose: Cyanocobalamin (cyanocobalamin 500 mcg oral tablet) 1 tab(s) Oral Daily. Refills: 3. Next Dose: Durable Medical Equipment (12 inch Grab Bars) Grab bars : Length 12inches Use as directed DX Unsteady Gait ICD10 R26.81 HT: 5'3 Weight 162lbs Length of need Lifetime. Refills: 0. Next Dose: Durable Medical Equipment (BACK BRACE) DX BACK PAIN M54.9 DANTE LIFETIME HT 5'3 WT 182 LB. Refills: 0. Next Dose: Durable Medical Equipment (Compression Stockings) surgical, thigh high length 20-30 mm Hg DX: Swelling of BLE. Lifetime use. Refills: 1. Next Dose: Durable Medical Equipment (Compression Stockings) surgical, knee length 20-30 mm Hg venoustasis changes. Refills: 1. Next Dose: Durable Medical Equipment (DX: Neck Pain) Soft Neck Collar. Refills: 0. Next Dose: Durable Medical Equipment (Free Style ESDRAS 2 SENSORS) Free Style Esdras 2 SENSORS-90 day supply change every 14 days DM 2 , E11.9. Refills: 11. Next Dose: Durable Medical Equipment (FreeStyle Esdras 2 METER) dm 2 E11.9 FREESTYLE ESDRAS 2 METER. Refills: 0. Next Dose: Durable Medical Equipment (Freestyle Lite Lancets) TEST BS TID DX E11.9 IDDMII. Refills: 5. Next Dose: Durable Medical Equipment (Freestyle Lite Monitor) TEST BS TID DX E11.9 IDDMII. Refills: 0. Next Dose: Durable Medical Equipment (Freestyle Lite Test Strips) TEST BS TID DX E11.9 IDDMII. Refills: 6. Next Dose: Durable Medical Equipment (Pen [place], 31 G x 5 mm BD Ultra Fine III) To inject insulin BID for DMII E11.9 PER CHARI CARDONA. Refills: 5. Next Dose: Durable Medical Equipment (Transfer bench) use as directed. DX Unsteady gait. ICD 10 R26.81 length of need: Lifetime wt:162lbs ht 5'3. Refills: 0. Next Dose: Fluoxetine (FLUoxetine 20 mg oral capsule) 2 capsule Oral Daily. Refills: 1. Next Dose: fluticasone/umeclidinium/vilanterol (Trelegy Ellipta inhalation powder) 1 puff(s) Inhalation Daily.at the same time every day. Refills: 3. Next Dose: Furosemide (furosemide 40 mg oral tablet) 1 tab(s) Oral twice a day. Refills: 1. Next Dose: insulin degludec (Tresiba FlexTouch 200 units/mL subcutaneous solution) INJECT SUBCUTANEOUSLY TAKING 55 UNITS DAILY, MAX DOSE 140 UNITS. Refills: 11. Next Dose: Lidocaine Topical (Lidoderm 5% film) 1 patch Topically Daily for 30 Days. Refills: 11. Next Dose: liraglutide (Victoza 18 mg/3 mL subcutaneous solution) INJECT 1.8 MG UNDER THE SKIN ONCE DAILY. Refills: 5. Next Dose: Magnesium Oxide (magnesium oxide 400 mg oral tablet) 1 tab(s) Oral Daily. Refills: 2. Next Dose: Melatonin (Melatonin 3 mg oral tablet) 1 tab(s) Oral Daily at Bedtime as needed. Refills: 3. Next Dose: Miconazole Topical (Miconazole 2% Topical Ointment) 1 applicator Topically Daily. Next Dose: Milk of Magnesia (Milk of Magnesia Liquid) 30 Milliliter Oral Daily as needed Constipation. Next Dose: Mirtazapine (mirtazapine 30 mg oral tablet) 1 tab(s) Oral Daily at Bedtime. Refills: 0. Next Dose: Miscellaneous Rx (BD UF SHORT PEN NEEDLE 9AUX39H) USE TO INJECT INSULIN TWICE A DAY. Refills: 5. Next Dose: Miscellaneous Rx ([facility] VITAM[facility] D3 25 MCG SOFTGEL) 1 capsule Oral Daily. Refills: 1. Next Dose: Miscellaneous Rx (Electric recliner) Unsteady gait Poor balance Use daily. Refills: 0. Next Dose: Miscellaneous Rx (VITAMIN D3 1,000 UNIT SOFTGEL) 1 capsule Oral Daily. Refills: 1. Next Dose: Multivitamin 1 tab(s) Oral Daily. Next Dose: Ever[place]-3 Polyunsaturated Fatty Acids (Fish Oil) 1,000 Milligram Oral Daily. Next Dose: Pregabalin (Lyrica 150 mg oral capsule) 1 capsule Oral twice a day. DOSAGE INCREASE. Refills: 3. Next Dose: risankizumab (Skyrizi 150 mg/mL subcutaneous solution) 150 Milligram Subcutaneous Infusion. Next Dose: Simethicone (simethicone 80 mg oral tablet, chewable) 80 Milligram Chew 3 times a day as needed Gas. Next Dose: Simvastatin (simvastatin 10 mg oral tablet) 1 tab(s) Oral Daily at Bedtime. Refills: 3. Next Dose: Spironolactone (spironolactone 100 mg oral tablet) 1 tab(s) Oral Daily. Refills: 1. Next Dose: Tramadol (traMADol 50 mg oral tablet) TAKE 1-2 TABLETS BY MOUTH EVERY 6 HOURS SCHEDULE FOLLOW VISIT, NEEDED FOR PAIN. Refills: 5. Next Dose: Trazodone (traZODone 50 mg oral tablet) 1 tab(s) Oral Daily at Bedtime. Refills: 0. Next Dose: Allergy Info:?? Latex; Benadryl; Ambien; Lac-Hydrin Medications Given This Visit Future Orders ?US Doppler Ext Lower Venous Left? Order Date:10/18/22?- Complete on or after?10/18/22 Vital Signs Height 160 cm Weight 68.2 kg BMI 26.64 kg/m2 Blood Pressure 102 mm Hg/60 mm Hg Temperature Pulse Rate 86 bpm Respiratory Rate 16 br/min 02 Sat Mode of Delivery 96 %/Room air You can now view a summary of your hospital visit from the comfort of your home through a free online portal called [employer]. [employer] is a website that allows you to securely view your medical information including discharge summary, medications and follow-up visits. ??You can alsosend a secure electronic message to your doctor???s office to request appointments, renew medications or just ask a question. You can enroll at [email or web address] or register during your next office [...] primary care provider, you may find a [facility] provider by calling [facility] [employer] at [phone]. For information about the plan of care [...] Morris RN Position: [facility] RN Member Role: Primary Care Nurse Name: Ranjeet Rushing MD Position: [facility] Primary Care Physician Member Role: PCP Address: Address: [address] [place] [id number] [[email or web address]] Name: Yoselyn Bradley RN Position: [facility] RN Member Role: Primary Care Nurse Name: Chari Grey NP Position: [facility] Associate Professional Member Role: [employer] Consult[employer] Provider Address: Address: [address] [place] [id number] [[email or web address]] Name: Yariel Fuller RN Position: [facility] RN Member Role: Primary Care Nurse Name: Julius Stringer RN Position: [facility] RN Member Role: Primary Care Nurse Name: Shantell Carter Position: [facility] RN Member Role: Primary Care Nurse Name: Michelle Morris RN Position: [facility] PCO RN Member Role: Primary Care Nurse Care Team Related Persons Name: ADRYAN GOVEA Address: home [address] [facility] [address] [place], [place] Name: TAMARA GOVEA Address: [address] [address]
--- OUTSIDE RECORDS SUMMARY | 2023-07-07 08:57 | XMS_ITS | Continuity of Care Document ---
Author Name Unknown Organization [facility] Address [address] [place] [address]- Care Team Providers Care Options Advisor Name Role Phone Ranjeet Rushing MD Primary Care Physician [phone] Encounter [facility] ACCT R [id number] Date(s): 07/23/22 - 10/30/22 [facility] [address] [place] [address]- Attending Physician: Sin SUTTON, Mustapha Admitting Physician: Mustapha Vogt MD Allergies, Adverse [...] 07/19/08 Gi sarah 1Result Comment: [05/28/2017] [facility]: [id number] 2Location History: [facility] 3Admin Note: VIS GIVEN-DATED 04/04/09 4Admin Note: vis given 5Admin Note: VIS given 6Admin Note: VIS-GIVEN 7Location History: [facility] ER 8Location History: [facility] DR Seaman Comment: [10/17/2015] PER NICO AT [facility] [...] Refills, Maintenance, 07/12/22 10:05:00 EST, [facility], 160, cm, 07/09/22 14:04:00 EST, Height, 72.7, kg, 04/24/22 8:34:00 EDT, Dry Weight Start Date: 07/12/22 Status: Ordered allopurinol 300 mg oral tablet 1, tablet, By Mouth, Daily, # 90 tablet, Refills 0, Route to Pharmacy Electronically, [facility], 160, cm, 02/21/22 15:11:00 EDT, Height, 74.8, kg, 11/01/21 15:05:00 EST, Dry Weight Start Date: 03/27/22 Status: Ordered BACK BRACE BACK BRACE, See Instructions, # 1 each, Refills 0, Tot. Refills 0, Maintenance, DX BACK PAIN M54.9 DANTE LIFETIME HT 5'3 WT 182 LB, 07/23/16 14:35:27, Compound Start Date: 07/23/16 Status: Ordered BD UF SHORT PEN NEEDLE [id number] BD UF SHORT PEN NEEDLE [id number], See Instructions, # 200 Unknown, 5 Refills, [...] EDT, Compound Start Date: 05/11/19 Status: Ordered [facility] VITAMIN D3 25 MCG SOFTGEL [facility] 25 MCG SOFTGEL, 1, capsule, By Mouth, Daily, # 90 capsule, 1 Refills, 160, cm, 10/16/21 14:42:00 EST, Height, 75, kg, 09/14/21 11:51:00 EST, Dry Weight Start Date: 10/17/21 Status: Ordered cyanocobalamin 500 mcg oral tablet 1 tablet = 500 mcg, By Mouth, Daily, # 90 tablet, 3 Refills, Maintenance, 04/12/22 16:02:00 EDT, Tablet, [facility]/pharmacy #[id number], 160, cm, 04/10/22 14:31:00 EDT, Height, [...] Maintenance, 05/23/2213:56:00 EDT, Route to Pharmacy Electronically, [facility] [...] tablet, Refills 1, Route to Pharmacy Electronically, [facility], 160, cm, 02/21/22 15:11:00 EDT, Height, 74.8, kg, 11/01/21 15:05:00 EST, Dry Weight Start Date: 03/12/22 Status: Ordered Lidoderm 5% film 1 patch, Topically, Daily, # 30 patch, 11 Refills, Maintenance, 12/28/21 15:03:00 EDT, [facility]/pharmacy#0693, Partial fill upon patient request if the prescription is for a schedule II opioid drug., 1 patch Topically Daily,x30 days, 160, cm, 11/27/21 14:... Start Date: 12/28/21 Stop Date: 12/23/22 Status: Ordered Lyrica 150 mg oral capsule 1 capsule = 150 mg, By Mouth, 2 times a day, DOSAGE INCREASE, # 60 capsule, 3 Refills, Maintenance,08/05/22 10:44:00 EST, Capsule, [facility]/pharmacy #0693, 160, cm, 07/23/22 20:25:00 EST, Height, 71.8, kg, 07/23/22 20:25:00 EST, Dry Weight Start Date: 08/05/22 Status: Ordered magnesium oxide 400 mg oral tablet 1 tablet, By Mouth, Daily, # 100 tablet, 2 Refills, [facility], 160, cm, 02/21/22 15:11:00 EDT, Height, 74.8, kg, 11/01/21 15:05:00 EST, Dry Weight Start Date: 03/28/22 Status: Ordered Melatonin 3 mg oral tablet 1 tablet, By Mouth, Daily at bedtime, PRN NEEDED, # 90 tablet, 3 Refills, Maintenance, 09/12/22 11:29:00 EST, [facility], 90, TAKE 1 TABLET BY MOUTH AT [...] 0 Refills, Maintenance, 08/30/22 18:27:00 EST, Tablet, [facility]/pharmacy #0693, Partial fill upon patient request if the prescription is for a schedule II opioid drug., 160, cm, 07/23/22 20:25:00 E... Start Date: 08/30/22 Status: Ordered Multivitamin 1 tablet, By Mouth, Daily, 0 Refills, Maintenance, 12/09/19 16:05:00 EDT Start Date: 12/09/19 Status: Ordered Pen [place], 31 G x 5 mm BD Ultra [...] 07/15/22 11:54:00 EST, Route to Pharmacy Electronically, [facility]/pharmacy #0693, 160, cm, 07/09/22 14:04:00 EST, Height, [...] 1, 07/26/22 19:58:00 EST, Route toPharmacy Electronically, [facility]/pharmacy #0693, 160, cm, 07/23/22 20:25:00 EST, Height, [...] 05/23/22 13:56:00 EDT, Route to Pharmacy Electronically, [facility]/pharmacy #0693, Partial fill upon patient request if the prescription is for a schedule II... Start Date: 05/23/22 Status: Ordered Trelegy Ellipta inhalation powder 1 puffs, Inhalation, Daily, at the same time every day, # 3 each, 3 Refills, Maintenance, 04/19/21 11:35:00 EDT, Powder, [facility]/pharmacy #0693, Partial fill upon patient request if the prescription is for a schedule II opioid drug., 160, cm, 04/19/21 11:... Start Date: 04/19/21 Status: Ordered Tresiba FlexTouch 200 units/mL subcutaneous solution See Instructions, INJECT SUBCUTANEOUSLY TAKING 55 UNITS DAILY, MAX DOSE 140 UNITS, # 9 Unknown, 11 Refills, Soft Stop, 06/21/22 13:29:00 EDT, [facility]/pharmacy #0693, 160, cm, 05/17/22 9:55:00 EDT, Height, [...] Refills, Maintenance, 05/07/22 15:49:00 EDT, [facility], 160, cm, 04/24/22 8:34:00 EDT, Height, 72.7, [...] 1 Refills, Maintenance, 09/25/20 7:44:00 EST, Capsule, [facility]/pharmacy #0693, resent from 08/14, 160, cm, [...] (osteoarthritis), cervical Confirmed Active Osteoporosis Confirmed Active *[facility] [phone] 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 2Carotid ultrasound 2016 showing bilateral noncritical carotid stenosis. 50-70% bilaterally. 3Per chart review meeting GFR criteria 4Per MOCA done at [facility] 5Patient's lab pack [facility] and [facility] sees Dr. Gume Mart 6MOCA 20 Social History Social History Type Response Smoking Status Former smoker, quit more than 30 days ago entered on: 09/28/21 Sex Patient Care team information Care Team Personnel Name: Carmita Enriquez RN Position: S RN Member Role: Primary Care Nurse Name: Mattie Morris RN Position: S RN Member Role: Primary Care Nurse Name: Ranjeet Rushing MD Position: [facility] Primary Care Physician Member Role: PCP Address: Address: [address] [place] [id number]- Name: Yoselyn Bradley RN Position: [facility] RN Member Role: Primary Care Nurse Name: Chari Grey NP Position: [facility] PCO Associate Professional Member Role: [employer] Consult[employer] Provider Address: Address: [address] [place] [address]- Name: Yariel Fuller RN Position: [facility] RN Member Role: Primary Care Nurse Name: Julius Stringer RN Position: [facility] RN Member Role: Primary Care Nurse Name: Shantell Carter Position: [facility] RN Member Role: Primary Care Nurse Name: Michelle Morris RN Position: [facility] PCO RN Member Role: Primary Care Nurse Care Team Related Persons Name: ADRYAN GOVEA Address: home [address] [facility] [address] [place] [address] Name: TAMARA GOVEA Address: home [address] [facility] [address] [facility] [place] [address]
--- OUTSIDE RECORDS SUMMARY | 2023-07-07 08:58 | XMS_ITS | Continuity of Care Document ---
Author Name Unknown Organization [facility] Paulino Leif lt Address [address] [place] [address]- Care Team Providers Care Learning Officer Name Role Phone Ranjeet Rushing MD Primary Care Physician [facility] Date[facility] 08[facility]22 - 09/28/22 [facility] Adult [address] [place] [address]- Allergies, Adverse Reactions, Alerts Substance Reaction Severity [...] 07/19/08 Gi sarah 1Result Comment: [05/28/2017] [facility]: [id number] 2Location History: [facility] 3Admin Note: VIS GIVEN-DATED 04/04/09 4Admin Note: vis given 5Admin Note: VIS given 6Admin Note: VIS-GIVEN 7Location History: [facility] 8Location History: [facility] 9Resesperanza Comment: [10/17/2015] PER NICO AT [facility] 10Admin Note: VIS GIVEN 11Admin Note: VIS [...] Maintenance, 05/07/22 16:00:00 EDT, Powder, [facility]/pharmacy #[id number], 2 puffs Inhalation Every 6 hours,PRN:as needed, 160, cm, 04/24/22 8:34:00 EDT, Height, 72.7, kg, 04/24/22 8:34:00... Start Date: 05/07/22 Status: Ordered alendronate 70 mg oral tablet 1 tablet, By Mouth, Every week, # 12 tablet, 1 Refills, Maintenance, 07/12/22 10:05:00 EST, [facility], 160, cm, 07/09/22 14:04:00 EST, Height, 72.7, kg, 04/24/22 8:34:00 EDT, Dry Weight Start Date: 07/12/22 Status: Ordered allopurinol 300 mg oral tablet 1, tablet, By Mouth, Daily, # 90 tablet, Refills 0, Route to Pharmacy Electronically, [facility], 160, cm, 02/21/22 15:11:00 EDT, Height, 74.8, kg, 11/01/21 15:05:00 EST, Dry Weight Start Date: 03/27/22 Status: Ordered BACK BRACE BACK BRACE, See Instructions, # 1 each, Refills 0, Tot. Refills 0, Maintenance, DX BACK PAIN M54.9 DANTE LIFETIME HT 5'3 WT 182 LB, 07/23/16 14:35:27, Compound Start Date: 07/23/16 Status: Ordered BD UF SHORT PEN NEEDLE [id number] BD UF SHORT PEN NEEDLE [id number], See Instructions, # 200 Unknown, 5 Refills, [...] EDT, Compound Start Date: 05/11/19 Status: Ordered [facility] 25 MCG SOFT[facility]EL [facility] [...] Maintenance, 04/12/22 16:02:00 EDT, Tablet, [facility]/pharmacy #[id number], 160, cm, 04/10/22 14:31:00 EDT, Height, [...] 05/23/2213:56:00 EDT, Route to Pharmacy Electronically, [facility]/pharmacy #[id number], Partial fill upon patient request if [...] tablet, Refills 1, Route to Pharmacy Electronically, [facility], 160, cm, 02/21/22 15:11:00 EDT, Height, 74.8, kg, 11/01/21 15:05:00 EST, Dry Weight Start Date: 03/12/22 Status: Ordered Lidoderm 5% film 1 patch, Topically, Daily, # 30 patch, 11 Refills, Maintenance, 12/28/21 15:03:00 EDT, [facility]/pharmacy#[id number], Partial fill upon patient request if the prescription is for a schedule II opioid drug., 1 patch Topically Daily,x30 days, 160, cm, 11/27/21 14:... Start Date: 12/28/21 Stop Date: 12/23/22 Status: Ordered Lyrica 150 mg oral capsule 1 capsule = 150 mg, By Mouth, 2 times a day, DOSAGE INCREASE, # 60 capsule, 3 Refills, Maintenance,08/05/22 10:44:00 EST, Capsule, [facility]/pharmacy #[id number], 160, cm, 07/23/22 20:25:00 EST, Height, 71.8, kg, 07/23/22 20:25:00 EST, Dry Weight Start Date: 08/05/22 Status: Ordered magnesium oxide 400 mg oral tablet 1 tablet, By Mouth, Daily, # 100 tablet, 2 Refills, [facility], 160, cm, 02/21/22 15:11:00 EDT, Height, 74.8, kg, 11/01/21 15:05:00 EST, Dry Weight Start Date: 03/28/22 Status: Ordered Melatonin 3 mg oral tablet 1 tablet, By Mouth, Daily at bedtime, PRN NEEDED, # 90 tablet, 3 Refills, Maintenance, 09/12/22 11:29:00 EST, [facility], 90, TAKE 1 TABLET BY MOUTH AT [...] 0 Refills, Maintenance, 08/30/22 18:27:00 EST, Tablet, [facility]/pharmacy #[id number], Partial fill upon patient request if the prescription is for a schedule II opioid drug., 160, cm, 07/23/22 20:25:00 E... Start Date: 08/30/22 Status: Ordered Multivitamin 1 tablet, By Mouth, Daily, 0 Refills, Maintenance, 12/09/19 16:05:00 EDT Start Date: 12/09/19 Status: Ordered Pen Amanda, 31 G x 5 mm BD Ultra [...] 07/15/22 11:54:00 EST, Route to Pharmacy Electronically, [facility]/pharmacy #[id number], 160, cm, 07/09/22 14:04:00 EST, Height, [...] 1, 07/26/22 19:58:00 EST, Route toPharmacy Electronically, [facility]/pharmacy #[id number], 160, cm, 07/23/22 20:25:00 EST, Height, [...] 13:56:00 EDT, Route to Pharmacy Electronically, [facility]/pharmacy #[id number], Partial fill upon patient request if the prescription is for a schedule II... Start Date: 05/23/22 Status: Ordered Trelegy Ellipta inhalation powder 1 puffs, Inhalation, Daily, at the same time every day, # 3 each, 3 Refills, Maintenance, 04/19/21 11:35:00 EDT, Powder, [facility]/pharmacy #[id number], Partial fill upon patient request if the prescription is for a schedule II opioid drug., 160, cm, 04/19/21 11:... 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 2Carotid ultrasound 2016 showing bilateral noncritical carotid stenosis. 50-70% bilaterally. 3Per chart review meeting GFR criteria 4Per MOCA done at [facility] 5Patient's turpentine farmer is [facility] and patient sees Dr. Gume Mart Social History Social History Type Response Smoking Status Former smoker, quit more than 30 days ago entered on: 09/28/21 Sex Patient Care team information Care Team Personnel Name: Carmita Enriquez RN Position: [facility] RN Member Role: Primary Care Nurse Name: Mattie Morris RN Position: [facility] RN Member Role: Primary Care Nurse Name: Ranjeet Rushing MD Position: [facility] Primary Care Physician Member Role: PCP Address: Address: [address] [place] [address] - Name: Yoselyn Bradley RN Position: [facility] RN Member Role: Primary Care Nurse Name: Chari Grey NP Position: [facility] PCO Associate Professional Member Role: Lifetime Consulting Provider Address: Address: [address] [place] [address] - Name: Yariel Fuller RN Position: [facility] RN Member Role: Primary Care Nurse Name: Julius Stringer RN Position: [facility] RN Member Role: Primary Care Nurse Name: Shantell Carter Position: S RN Member Role: Primary Care Nurse Name: Michelle Morris RN Position: [facility] PCO RN Member Role: Primary Care Nurse Care Team Related Persons Name: ADRYAN GOVEA Address: home [address] [facility] [address] [place] [address] Name: TAMARA GOVEA Address: [place] [address] [place] [address]
--- OUTSIDE RECORDS SUMMARY | 2023-07-07 08:58 | XMS_ITS | Continuity of Care Document ---
Author Name Unknown Organization [facility] Paulino Leif lt Address [address] [place] [address]- Care Team Providers Care Clean Up Worker Name Role Phone Kristan SUTTON, Ranjeet Beatty Primary Care Physician [facility] Date[facility]s): 09[facility]05/22 - 10/05/22 [facility] Adult [address] [place] [address]- Allergies, Adverse Reactions, Alerts Substance Reaction Severity [...] 11 07/19/08 Gi sarah 1Result Comment: [05/28/2017] [facility]: [id number] 2Location History: [facility] 3Admin Note: VIS GIVEN-DATED 04/04/09 4Admin Note: vis given 5Admin Note: VIS given 6Admin Note: VIS-GIVEN 7Location History: [facility] 8Location History: [facility] 9Resesperanza Comment: [10/17/2015] PER NICO AT [facility] 10Admin Note: VIS GIVEN 11Admin Note: [...] 11 Refills, Maintenance, 05/07/22 16:00:00 EDT, Powder, [facility]/pharmacy #[id number], 2 puffs Inhalation Every 6 hours,PRN:as needed, 160, cm, 04/24/22 8:34:00 EDT, Height, 72.7, kg, 04/24/22 8:34:00... Start Date: 05/07/22 Status: Ordered alendronate 70 mg oral tablet 1 tablet, By Mouth, Every week, # 12 tablet, 1 Refills, Maintenance, 07/12/22 10:05:00 EST, [facility], 160, cm, 07/09/22 14:04:00 EST, Height, 72.7, kg, 04/24/22 8:34:00 EDT, Dry Weight Start Date: 07/12/22 Status: Ordered allopurinol 300 mg oral tablet 1, tablet, By Mouth, Daily, # 90 tablet, Refills 0, Route to Pharmacy Electronically, [facility], 160, cm, 02/21/22 15:11:00 EDT, Height, 74.8, kg, 11/01/21 15:05:00 EST, Dry Weight Start Date: 03/27/22 Status: Ordered BACK BRACE BACK BRACE, See Instructions, # 1 each, Refills 0, Tot. Refills 0, Maintenance, DX BACK PAIN M54.9 DANTE LIFETIME HT 5'3 WT 182 LB, 07/23/16 14:35:27, Compound Start Date: 07/23/16 Status: Ordered BD UF SHORT PEN NEEDLE [id number] BD UF SHORT PEN NEEDLE [id number], See Instructions, # 200 Unknown, 5 Refills, [...] 3 Refills, Maintenance, 04/12/22 16:02:00 EDT, Tablet, [facility]/pharmacy #0693, 160, cm, 04/10/22 14:31:00 EDT, [...] Maintenance, 05/23/2213:56:00 EDT, Route to Pharmacy Electronically, [facility]/pharmacy #[id number], Partial fill upon patient request [...] tablet, Refills 1, Route to Pharmacy Electronically, [facility], 160, cm, 02/21/22 15:11:00 EDT, Height, 74.8, kg, 11/01/21 15:05:00 EST, Dry Weight Start Date: 03/12/22 Status: Ordered Lidoderm 5% film 1 patch, Topically, Daily, # 30 patch, 11 Refills, Maintenance, 12/28/21 15:03:00 EDT, [facility]/pharmacy#0693, Partial fill upon patient request if the prescription is for a schedule II opioid drug., 1 patch Topically Daily,x30 days, 160, cm, 11/27/21 14:... Start Date: 12/28/21 Stop Date: 12/23/22 Status: Ordered Lyrica 150 mg oral capsule 1 capsule = 150 mg, By Mouth, 2 times a day, DOSAGE INCREASE, # 60 capsule, 3 Refills, Maintenance,08/05/22 10:44:00 EST, Capsule, [facility]/pharmacy #[id number], 160, cm, 07/23/22 20:25:00 EST, Height, 71.8, kg, 07/23/22 20:25:00 EST, Dry Weight Start Date: 08/05/22 Status: Ordered magnesium oxide 400 mg oral tablet 1 tablet, By Mouth, Daily, # 100 tablet, 2 Refills, [facility], 160, cm, 02/21/22 15:11:00 EDT, Height, 74.8, kg, 11/01/21 15:05:00 EST, Dry Weight Start Date: 03/28/22 Status: Ordered Melatonin 3 mg oral tablet 1 tablet, By Mouth, Daily at bedtime, PRN NEEDED, # 90 tablet, 3 Refills, Maintenance, 09/12/22 11:29:00 EST, [facility], 90, TAKE 1 TABLET BY MOUTH AT [...] 0 Refills, Maintenance, 08/30/22 18:27:00 EST, Tablet, [facility]/pharmacy #[id number], Partial fill upon patient request if the prescription is for a schedule II opioid drug., 160, cm, 07/23/22 20:25:00 E... Start Date: 08/30/22 Status: Ordered Multivitamin 1 tablet, By Mouth, Daily, 0 Refills, Maintenance, 12/09/19 16:05:00 EDT Start Date: 12/09/19 Status: Ordered Pen [place], 31 G x 5 mm BD Ultra [...] 07/15/22 11:54:00 EST, Route to Pharmacy Electronically, [facility]/pharmacy #[id number], 160, cm, 07/09/22 14:04:00 EST, [...] 1, 07/26/22 19:58:00 EST, Route toPharmacy Electronically, [facility]/pharmacy #[id number], 160, cm, 07/23/22 20:25:00 EST, [...] 05/23/22 13:56:00 EDT, Route to Pharmacy Electronically, [facility]/pharmacy #[id number], Partial fill upon patient request if the prescription is for a schedule II... 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 2Carotid ultrasound 2016 showing bilateral noncritical carotid stenosis. 50-70% bilaterally. 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 Gume Mart Social History Social History Type Response Smoking Status Former smoker, quit more than 30 days ago entered on: 09/28/21 Sex Patient Care team information Care Team Personnel Name: Carmita Enriquez RN Position: [facility] RN Member Role: Primary Care Nurse Name: Mattie Morris RN Position: [facility] RN Member Role: Primary Care Nurse Name: Ranjeet Rushing MD Position: [facility] Primary Care Physician Member Role: PCP Address: Address: [address] [place] [address] - Name: Yoselyn Bradley RN Position: [facility] RN Member Role: Primary Care Nurse Name: Chari Grey NP Position: [facility] PCO Associate Professional Member Role: Lifetime Consulting Provider Address: Address: [address] [place] [address] - Name: Yariel Fuller RN Position: [facility] RN Member Role: Primary Care Nurse Name: Julius Stringer RN Position: [facility] RN Member Role: Primary Care Nurse Name: Shantell Carter Position: S RN Member Role: Primary Care Nurse Name: Michelle Morris RN Position: [facility] PCO RN Member Role: Primary Care Nurse Care Team Related Persons Name: ADRYAN GOVEA Address: home [address] [facility] [address] [place] [address] Name: TAMARA GOVEA Address: [place] [address] [place] [address]
--- OUTSIDE RECORDS SUMMARY | 2023-07-07 08:58 | XMS_ITS | Continuity of Care Document ---
Author Name Unknown Organization [facility] Address [address] [place] [address]- Care Team Providers Care Sprinkler Fitter Apprentice Name Role Phone Ranjeet Rushing MD Primary Care Physician [place] [facility] Date[place]s): 05/07/23 - 06/06/23 [facility] [address] [place] [address]- Attending Physician: Evans Brock Admitting Physician: AdmEvans blackwood Referring Physician: Evans Brock Referring Physician: Maryann [...] 11 07/19/08 Gi sarah 1Result Comment: [05/28/2017] [facility]: [id number] 2Location History: [facility] 3Admin Note: VIS GIVEN-DATED 04/04/09 4Admin Note: vis given 5Admin Note: VIS given 6Admin Note: VIS-GIVEN 7Location History: [facility] 8Location History: [facility] 9Resesperanza Comment: [10/17/2015] PER NICO AT [facility] 10Admin Note: VIS GIVEN 11Admin Note: [...] Refills, Maintenance, 04/01/23 15:47:00 EDT, Powder, [facility]/pharmacy #[id number], [...] 10:34:00 EDT, Route to Pharmacy Electronically, [facility], 160, cm, 04/14/23 20:00:00 EDT, [...] Status: Ordered BD UF SHORT PEN NEEDLE [id number] BD UF SHORT PEN NEEDLE [id number], See Instructions, # 200 Unknown, 5 Refills, USE TO INJECT INSULIN TWICE A DAY, 160, cm, 11/27/21 14:08:00 EDT, Height, 74.8, kg, 11/01/21 15:05:00 EST, Dry Weight Start Date: 11/30/21 Status: Ordered colchicine 0.6 mg oral capsule 1 capsule = 0.6 mg, By Mouth, 2 times a day, # 20 capsule, 0 Refills, Maintenance, 12/31/22 10:10:00 EDT, Capsule, [facility]/pharmacy #[id number], Partial fill [...] EDT, Route to Pharmacy Electronically, [facility], 160, cm, 04/14/23 20:00:00 EDT, [...] 11 Refills, Maintenance, 04/18/23 10:34:00 EDT, [facility], 160, cm, 04/14/23 20:00:00 EDT, [...] 11/28/22... 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 2Carotid ultrasound 2016 showing bilateral noncritical carotid stenosis. 50-70% bilaterally. 3Per chart review meeting GFR criteria 4Per MOCA done at [facility] 5Patient's [place] soundings group leader is [facility] and patient sees Dr. Gume Mart 6MOCA 20 Social History Social History Type Response Smoking Status Former smoker, quit more than 30 days ago; Other: QUIYT COUPLE YEARS AGO; entered on: 11/13/22 Sex Patient Care team information Care Team Personnel Name: Trinity Lloyd MD Position: [facility] Outreach Member Role: Lifetime Consulting Physician Name: Carmita Enriquez RN Position: [facility] RN Member Role: Primary Care Nurse Name: Mattie Morris RN Position: [facility] RN Supv Member Role: Primary Care Nurse Name: Ranjeet Rushing MD Position: [facility] Physician - Primary Care Member Role: PCP Address: Address: [address] [place] [address]- Name: Yoselyn Bradley RN Position: [facility] RN Member Role: Primary Care Nurse Name: Chari Grey NP Position: [facility] PCO Associate Professional Member Role: Lifetime Consulting Provider Address: Address: [address] [place] [address]- Name: Yariel Fuller RN Position: [facility] RN Member Role: Primary Care Nurse Name: Julius Stringer RN Position: [facility] RN Member Role: Primary Care Nurse Name: Shantell Carter Position: [facility] RN Member Role: Primary Care Nurse Name: Libia Rivera RN Position: [facility] RN Member Role: Primary Care Nurse Name: Michelle Morris RN Position: [facility] AMB Nurse Member Role: Primary Care Nurse Care Team Related Persons Name: ADRYAN GOVEA Address: [address] [address] Name: TAMARA GOVEA Address: [address] [address]
--- OUTSIDE RECORDS SUMMARY | 2023-07-07 08:58 | XMS_ITS | Continuity of Care Document ---
Author Name Unknown Organization [facility] Paulino Leif lt Address [address] [place] [address]- Care Team Providers Care Male Impersonator Name Role Phone Ranjeet Rushing MD Primary Care Physician [facility] Date[facility] 12[facility]05[facility]22 - 01/04/23 [facility] Adult [address] [place] [address]- Allergies, Adverse Reactions, Alerts Substance Reaction Severity [...] [facility]: [id number] 2Location History: [facility] 3Admin Note: VIS GIVEN-DATED 04/04/09 4Admin Note: vis given 5Admin Note: VIS given 6Admin Note: VIS-GIVEN 7Location History: [facility] 8Location History: [facility] 9Evelyne Comment: [10/17/2015] PER NICO AT [facility] 10Admin Note: VIS GIVEN 11Admin Note: [...] 05/07/22 16:00:00 EDT, Powder, [facility]/pharmacy #[id number], 2 puffs Inhalation Every 6 hours,PRN:as needed, [...] Status: Ordered BD UF SHORT PEN NEEDLE [id number] BD UF SHORT PEN NEEDLE [id number], See Instructions, # 200 Unknown, 5 Refills, USE TO INJECT INSULIN TWICE A DAY, 160, cm, 11/27/21 14:08:00 EDT, Height, 74.8, kg, 11/01/21 15:05:00 EST, Dry Weight Start Date: 11/30/21 Status: Ordered colchicine 0.6 mg oral capsule 1 capsule = 0.6 mg, By Mouth, 2 times a day, # 20 capsule, 0 Refills, Maintenance, 12/31/22 10:10:00 EDT, Capsule, [facility]/pharmacy #[id number], Partial fill upon patient request if the [...] 11/28/22... Start Date: 12/13/22 Status: Ordered Pen [place], 31 G x 5 mm BD Ultra [...] 0 Refills, Maintenance, 11/28/22 13:19:00 EDT, Tablet, [facility]/pharmacy #[id number], Partial fill upon patient request if t... 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 2Carotid ultrasound 2016 showing bilateral noncritical carotid stenosis. 50-70% bilaterally. 3Per chart review meeting GFR criteria 4Per [place] [facility] 5Patient's cricket coach is [facility] and patient sees Dr. Gume Mart 6MOCA 20 Social History Social History Type Response Smoking Status Former smoker, quit more than 30 days ago; Other: QUIYT COUPLE YEARS AGO; entered on: 11/13/22 Sex Patient Care team information Care Team Personnel Name: Carmita Enriquez RN Position: [facility] RN Member Role: Primary Care Nurse Name: Mattie Morris RN Position: [facility] RN Supv Member Role: Primary Care Nurse Name: Ranjeet Rushing MD Position: [facility] Primary Care Physician Member Role: PCP Address: Address: [address] [place] [phone]- Name: Yoselyn Bradley RN Position: [facility] RN Member Role: Primary Care Nurse Name: Chari Grey NP Position: [facility] PCO Associate Professional Member Role: Lifetime Consulting Provider Address: Address: [address] [place] [address] - Name: Yariel Fuller RN Position: [facility] RN Member Role: Primary Care Nurse Name: Julius Stringer RN Position: S RN Member Role: Primary Care Nurse Name: Shantell Carter Position: S RN Member Role: Primary Care Nurse Name: Michelle Morris RN Position: [facility] PCO RN Member Role: Primary Care Nurse Care Team Related Persons Name: ADRYAN GOVEA Address: [place] [address] [facility] [address] [place] [address] Name: GOVEA TAMARA Address: [address] [place] [address]
--- OUTSIDE RECORDS SUMMARY | 2023-07-07 08:59 | XMS_ITS | Continuity of Care Document ---
Author Name Unknown Organization [facility] Paulino Leif lt Address [address] [place] [address]- Care Team Providers Care Information Broker Name Role Phone Ranjeet Rushing MD Primary Care Physician [facility] Date[facility]): 11/26/22 - 12/26/22 [facility] Adult [address] [place] [address]- Allergies, Adverse Reactions, Alerts Substance Reaction Severity [...] 11 07/19/08 Gi sarah 1Result Comment: [05/28/2017] [facility]: [id number] 2Location History: [facility] 3Admin Note: VIS GIVEN-DATED 04/04/09 4Admin Note: vis given 5Admin Note: VIS given 6Admin Note: VIS-GIVEN 7Location History: [facility] 8Location History: [facility] 9Evelyne Comment: [10/17/2015] PER NICO AT [facility] 10Admin Note: VIS GIVEN 11Admin [...] 11 Refills, Maintenance, 05/07/22 16:00:00 EDT, Powder, [facility]/pharmacy #[id number], 2 puffs Inhalation Every [...] Status: Ordered BD UF SHORT PEN NEEDLE [id number] BD UF SHORT PEN NEEDLE [id number], See Instructions, # 200 Unknown, 5 Refills, [...] 11/28/22... 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 2Carotid ultrasound 2016 showing bilateral noncritical carotid stenosis. 50-70% bilaterally. 3Per chart review meeting GFR criteria 4Per MOCA done at [facility] 5[facility] Dr. Gume [...] Care Nurse Name: Ranjeet Rushing MD Position: [facility] Primary Care Physician Member Role: PCP Address: Address: [address] [place] [address]- [place] Name: Yoselyn Bradley RN Position: S RN Member Role: Primary Care Nurse Name: Chari Grey NP Position: [facility] PCO Associate Professional Member Role: Lifetime Consulting Provider Address: Address: [address] [place] [address]- [place] Name: Yairel Fuller RN Position: S RN Member Role: Primary Care Nurse Name: Julius Stringer RN Position: S RN Member Role: Primary Care Nurse Name: Shantell Carter Position: S RN Member Role: Primary Care Nurse Name: Michelle Morris RN Position: [facility] PCO RN Member Role: Primary Care Nurse Care Team Related Persons Name: ADRYAN GOVEA Address: home [address] [place] [address] Name: TAMARA GOVEA Address: home [address] [facility] [address] [place] [address]
--- OUTSIDE RECORDS SUMMARY | 2023-07-07 08:59 | XMS_ITS | Continuity of Care Document ---
Author Name Unknown Organization [facility] Leif lt Address [address] [place] [address]- Care Team Providers Care Middleware Architect Name Role Phone Ranjeet Rushing MD Primary Care Physician [facility] Date(s): 01/22/23 - 05/22/23 [facility] Adult [address] [place] [address]- Attending Physician: Chari Grey NP Referring Physician: [...] 11 07/19/08 Gi sarah 1Result Comment: [05/28/2017] [facility]: [id number] 2Location History: [facility] 3Admin Note: VIS GIVEN-DATED 04/04/09 4Admin Note: vis given 5Admin Note: VIS given 6Admin Note: VIS-GIVEN 7Location History: [facility] 8Location History: [facility] 9Resesperanza Comment: [10/17/2015] [facility] [...] 2 Refills, Maintenance, 04/01/23 15:47:00 EDT, Powder, [facility]/pharmacy #[id number], [...] 10:34:00 EDT, Route to Pharmacy Electronically, [facility], 160, cm, 04/14/23 20:00:00 EDT, Height, [...] Status: Ordered BD UF SHORT PEN NEEDLE [id number] BD UF SHORT PEN NEEDLE [id number], See Instructions, # 200 Unknown, 5 Refills, USE TO INJECT INSULIN TWICE A DAY, 160, cm, 11/27/21 14:08:00 EDT, Height, 74.8, kg, 11/01/21 15:05:00 EST, Dry Weight Start Date: 11/30/21 Status: Ordered colchicine 0.6 mg oral capsule 1 capsule = 0.6 mg, By Mouth, 2 times a day, # 20 capsule, 0 Refills, Maintenance, 12/31/22 10:10:00 EDT, Capsule, [facility]/pharmacy #[id number], Partial fill [...] EDT, Route to Pharmacy Electronically, [facility], 160, cm, 04/14/23 20:00:00 EDT, Height, [...] 11/28/22... Start Date: 12/13/22 Status: Ordered Pen [place], 31 G x 5 mm BD Ultra [...] 2 Refills, Maintenance, 05/16/23 14:49:00 EDT, [facility], 160, cm, 04/14/23 20:00:... Start Date: 05/16/23 Status: Ordered simvastatin 10 mg oral tablet 1, tablet, By Mouth, Daily at bedtime, # 28 tablet, Refills 11, Maintenance, 04/18/23 10:34:00 EDT,Route to Pharmacy Electronically, [facility], 160, cm, 04/14/23 20:00:00 EDT, Height,68.5, kg, [...] 10:33:00 EDT, Route to Pharmacy Electronically, [facility], 160, cm, 04/14/23 20:00:00 EDT, Height, [...] 10:33:00 EDT,Route to Pharmacy Electronically, [facility], 160, cm, 04/14/23 20:00:00 EDT, Height,68.5, kg, 04/14/23 20:00:00 EDT, Dry Weight Start Date: 04/18/23 Status: Ordered Trelegy Ellipta inhalation powder 1 puffs, Inhalation, Daily, at the same time every day, # 3 each, 1 Refills, Maintenance, 04/01/23 15:47:00 EDT, Powder, [facility]/pharmacy #[id number], [...] 11 Refills, Maintenance, 04/18/23 10:34:00 EDT, [facility], 160, cm, 04/14/23 20:00:00 EDT, Height, [...] cervical Confirmed Active Osteoporosis Confirmed Active *[facility] [phone] 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 2Carotid ultrasound 2016 showing bilateral noncritical carotid stenosis. 50-70% bilaterally. 3Per chart review meeting GFR criteria 4Per MOCA done at [facility] 5[facility]'s hand ii [facility] and [facility] Dr. Gume Mart 6MOCA 20 Social History Social History Type Response Smoking Status Former smoker, quit more than 30 days ago; Other: QUIYT COUPLE YEARS AGO; entered on: 11/13/22 Sex Patient Care team information Care Team Personnel Name: Trinity Lloyd MD Position: [facility] Outreach Member Role: Lifetime Consulting Physician Name: Carmita Enriquez RN Position: [facility] RN Member Role: Primary Care Nurse Name: Mattie Morris RN Position: [facility] RN Supv Member Role: Primary Care Nurse Name: Ranjeet Rushing MD Position: [facility] Physician - Primary Care Member Role: PCP Address: Address: [address] [place] [address]- Name: Yoselyn Bradley RN Position: [facility] RN Member Role: Primary Care Nurse Name: Chari Grey NP Position: [facility] PCO Associate Professional Member Role: Lifetime Consulting Provider Address: Address: [address] [place] [address]- Name: Yariel Fuller RN Position: [facility] RN Member Role: Primary Care Nurse Name: Julius Stringer RN Position: [facility] RN Member Role: Primary Care Nurse Name: Shantell Carter Position: [facility] RN Member Role: Primary Care Nurse Name: Libia Rivera RN Position: [facility] RN Member Role: Primary Care Nurse Name: Michelle Morris RN Position: [facility] AMB Nurse Member Role: Primary Care Nurse Care Team Related Persons Name: ADRYAN GOVEA Address: [address] [address] Name: TAMARA GOVEA Address: home [address] [address]
--- OUTSIDE RECORDS SUMMARY | 2023-07-07 09:00 | XMS_ITS | Continuity of Care Document ---
Author Name Unknown Organization [facility] al Address [address] [place] [address]- Care Team Providers Care Nuts And Bolts Assembler Name Role Phone Ranjeet Rushing MD Primary Care Physician Encounter [facility] Date(s): 04/14/23 - 04/14/[address] [address]- Discharge Disposition: A-D/C Home Attending Physician: Karen Jaime DO Admitting Physician: Karen Jaime DO Referring Physician: Not on Staff, Referring [...] 07/19/08 Gi sarah 1Result Comment: [05/28/2017] [facility]: [id number] 2Location History: [facility] 3Admin Note: VIS GIVEN-DATED 04/04/09 4Admin Note: vis given 5Admin Note: VIS given 6Admin Note: VIS-GIVEN 7Location History: [facility] 8Location History: [facility] 9Resesperanza Comment: [10/17/2015] PER NICO AT [facility] 10Admin Note: VIS GIVEN 11Admin [...] 2 Refills, Maintenance, 04/01/23 15:47:00 EDT, Powder, [facility]/pharmacy #[id number], 2 [...] 16:45:00 EDT, Route to Pharmacy Electronically, [facility], 160, cm, 03/17/23 11:11:00 EDT, Height, [...] Status: Ordered BD UF SHORT PEN NEEDLE [id number] BD UF SHORT PEN NEEDLE [id number], See Instructions, # 200 Unknown, 5 Refills, [...] 0 Refills, Maintenance, 12/31/22 10:10:00 EDT, Capsule, [id number], Partial fill upon patient request [...] EDT, Route to Pharmacy Electronically, [facility], 160, cm, 03/17/23 11:11:00 EDT, Height, [...] capsule, 0 Refills, Maintenance, 03/21/23 16:46:00 EDT, Capsule, [facility], 160, cm, 03/17/23 11:11:00 EDT, Height, 69.9, kg, 03/17/23 11:11:00 EDT, Dry Weight Start Date: 03/21/23 Status: Ordered magnesium oxide 400 mg oral tablet 1 tablet, By Mouth, Daily, # 28 tablet, 0 Refills, Maintenance, 03/21/23 16:45:00 EDT, [facility], 160, cm, 03/17/23 11:11:00 EDT, [...] 11/28/22... 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 2Carotid ultrasound 2016 showing bilateral noncritical carotid stenosis. 50-70% bilaterally. 3Per chart review meeting GFR criteria 4Per [place] [facility] 5Patient's electronic publications specialist [facility] Dr[facility] Gume Mart 6MOCA 20 Results Radiology Reports * Exam Date Time Procedure Performing Provider Status 04/14/23 6:34 PM Foot Min 3 Views Right Kuselias , Abby; Auth (Verified) Notes: (Foot Min 3 Views Right) Reason For Exam: Erythema RESULT: Foot Min 3 Views Right Foot Min 3 Views Right, 3 views Hx of Present Illness: pt c o bilat foot pain on bottom and side of feet onset 2 months ago , has seen house moving supervisor and PCP and ED and told is a fungal infection; Reason: Erythema; Clinical Question(s): Osteomyelitis COMPARISON: 03/24/2021 FINDINGS: Moderate narrowing of the first MTP joint. No evidence of acute fracture, malalignment, or corticalerosion. Small plantar continual spur and dorsal calcaneal enthesophyte. Vascular type calcifications are present. IMPRESSION: No evidence of acute fracture or malalignment. Moderate degenerative changes of the first MTP joint If there is a high clinical index of concern for osteomyelitis, MRI or bone scan would provide a more sensitive evaluation WSN: [id number] Ordering Physician: Khoa Sorto Dictated By: Nick Haji Jr, MD Dictated Date/Time: 04/14/23 7:13 pm Reviewed By: Nick Haji Jr, MD Signed By: Nick Haji Jr, MD Signed Date/Time: 04/14/23 7:13 pm Transcribed By: JOSE Transcribed Date/Time: 04/14/23 7:11 pm * Exam Date Time Procedure Performing Provider Status 04/14/23 6:34 PM Foot Min 3 Views Left Kuselijosiah , Abby; Auth (Verified) Notes: (Foot Min 3 Views Left) Reason For Exam: Infection RESULT: Foot Min 3 Views Left Foot Min 3 Views Left, 3 views Hx of Present Illness: pt c o bilat foot pain on bottom and side of feet onset 2 months ago , has seen house moving supervisor and PCP and ED and told is a fungal infection; Reason: Infection; Clinical Question(s): Osteomyelitis COMPARISON: 01/27/2023 FINDINGS: Chronic fractures of the second-fourth metatarsal necks. No evidence of acute fracture or malalignment. Mild cartilage space narrowing at the first MTP joint. No evidence of cortical erosion or periarticular mineralization. IMPRESSION: Chronic fractures of the second-fourth metatarsals WSN: [id number] Ordering Physician: Khoa Sorto Dictated By: Nick Haji Jr, MD Dictated Date/Time: 04/14/23 7:11 pm Reviewed By: Nick Haji Jr, MD Signed By: Nick Haji Jr, MD Signed Date/Time: 04/14/23 7:11 pm Transcribed By: JOSE Transcribed Date/Time: 04/14/23 7:08 pm Vital Signs Most recent to oldest [Reference Range]: 1 2 Height 160 cm (04/14/23 8:00 PM) 160 cm (04/14/23 5:36 PM) Weight 68.5 kg (04/14/23 8:00 PM) 68.5 kg (04/14/23 5:36 PM) Oxygen Saturation [94-100 %] 96 % (04/14/23 8:00 PM) 95 % (04/14/23 5:36 PM) Pulse Rate [55-90 bpm] 82 bpm (04/14/23 8:00 PM) 89 bpm (04/14/23 5:36 PM) Blood Pressure [90-138/55-84 mm Hg] 136/ 80mm Hg (04/14/23 8:00 PM) 138/83mm Hg (04/14/23 5:36 PM) Respiratory Rate [16-30 br/min] 17 br/mi n (04/14/23 8:00 PM) 18 br/min (04/14/23 5:36 PM) Temperature [96.8-100.4 DegF] 98.2 DegF (04/14/23 8:00 PM) 98.2 DegF (04/14/23 5:36 PM) Mode of Delivery (Oxygen) Room air (04/14/23 8:00 PM) Blood pressure sites Arm, right (04/14/23 8:00 PM) Temperature Route Oral (04/14/23 8:00 PM) Oral (04/14/23 5:36 PM) Dry Weight 68.5 kg (04/14/23 8:00 PM) 68.5 kg (04/14/23 5:36 PM) Social History Social History Type Response Smoking Status Former smoker, quit more than 30 days ago; Other: QUIYT COUPLE YEARS AGO; entered on: 11/13/22 Sex Note * Shravan Baker: PERFORM Event Display: Patient Education Leaflets Authored Date: [id number] Athlete???s Foot ?? [id number] Athlete???s Foot Athlete???s foot (tinea pedis) is caused by a fungal infection in the skin. It's sometimes called ringworm even though a worm doesn't cause the infection. Athlete???s foot affects the skin between the toes, causing cracks in the skin called fissures. It can also affect the bottom of the foot where it causes dry white scales and peeling of the skin. This infection is more likely to occur when the foot is in hot, sweaty socks and shoes for long periods of time. You may feel itching and burning between your toes. This infection is treated with skin creams or medicine taken by mouth. Home care The following are general care guidelines: ??? It's important to keep the feet dry. Use absorbent cotton socks and change them if they become sweaty. Or wear an open-toe shoe or sandal. ??? Wash the feet at least once a day with soap and water, and dry them well. ??? If your healthcare provider prescribed an antifungal medicine, use it as prescribed. ??? Some antifungal creams are available without a prescription. Follow the instructions on the medicine package. ??? It may take 1 week before the rash starts to improve. It can take about 3 to 4 weeks to completely clear. Continue the medicine until the rash is all gone. ??? Use lxwk-lqa-ucnbopq antifungal powders or sprays on your feet afterexposure to high-risk environments, such as public showers, gyms, swimming pools, and locker rooms.This can help prevent future infections. Wearing appropriate shoes or sandals in these situations can help. ?? Prevention These tips may help prevent athlete???s foot: ??? Don't share shoes, socks, towels, or sports equipment with someone who has athlete's foot. ??? Don't walk barefoot in places where a fungal infectioncan spread quickly, such as locker rooms, showers, gyms, and swimming pools. ??? Change your socks regularly. Don't wear the same socks for more than 1 day. ??? Alternate shoes to help with drying, or wear shoes that allow airflow. ??? Dry your feet well after swimming or bathing. ?? Follow-up care Follow up with your healthcare provider as advised if the rash doesn't improve after 10 days of treatment, or if the rash continues to spread. When to get medical advice Call your healthcare provider right away if any of the following occur: ??? Fever of 100.4??F (38??C) or higher, or as directed by your provider ??? Increasing redness or swelling of the foot ??? Infection comes back soon after treatment ??? Pus draining from cracks in the skin ?? Last Reviewed Date: 2021 ?? [id number] The [employer]. All rights reserved. This information is not intended as a substitute for professional medical care. Always follow your healthcare professional's instructions. ?? * Shravan Baker: PERFORM Event Display: Patient Education Leaflets Authored Date: [id number] Cellulitis ?? [id number] Cellulitis Cellulitis is an infection of the deep layers of skin. A break in the skin, such as a cut or scratch, can let bacteria under the skin. Cellulitis causes the affected skin to become red, swollen, warm, and sore. The reddened areas havea border you can see. An open sore may leak fluid (pus). You may have a fever, chills, and pain. Cellulitis is treated with antibiotics taken for 7 to 10 days. An open sore may be cleaned and covered with cool wet gauze. Symptoms should get better 1 to 2 days after treatment is started. Make sure to take all the antibiotics for the full number of days until they are gone. Keep taking the medicine even if your symptoms go away. If not treated, cellulitis can get into the bloodstream and lymph nodes. The infection can then spread throughout the body. This causes serious illness. Home care Follow these tips: ??? Limit the use of the part of your body with cellulitis.? If the infection is on your leg, keep your leg raised while sitting. This helps reduce swelling. ??? Take all of the antibiotic medicine exactly as directed until it is gone. Don't miss any doses, especially duringthe first 7 days. Finish taking all of the medicine even when your symptoms get better. ??? Keep the affected area clean and dry. ??? Wash your hands with soap and clean, running water before and after touching your skin. Anyone else who touches your skin should also wash his or her hands. Don't share towels. ?? Follow-up care Follow up with your healthcare provider, or as advised. If your infection doesn't go away after finishing the first antibiotic, your healthcare provider will prescribe a different one. ?? When to seek medical advice Call your healthcare provider right away if any of these occur: ??? Red areas that spread ??? Swelling or pain that gets worse ??? Fluid leaking from the skin (pus) ??? Fever higher of 100.4?? F (38.0?? C) or higher after 2 days on antibiotics ?? Last Reviewed Date: 2021 ?? [id number] The [employer]. All rights reserved. This information is not intended as a substitute for professional medical care. Always follow your healthcare professional's instructions. ?? Patient Care team information Care Team Personnel Name: Trinity Lloyd MD Position: [facility] Outreach Member Role: Lifetime Consulting Physician Name: Carmita Enriquez RN Position: [facility] RN Member Role: Primary Care Nurse Name: Mattie Morris RN Position: [facility] RN Supv Member Role: Primary Care Nurse Name: Ranjeet Rushing MD Position: [facility] Physician - Primary Care Member Role: PCP Address: Address: [address] [place] [phone]- Name: Yoselyn Bradley RN Position: [facility] RN Member Role: Primary Care Nurse Name: Chari Grey NP Position: [facility] PCO Associate Professional Member Role: Lifetime Consulting Provider Address: Address: [address] [place] [address] [place] [address]- [place] Name: Yariel Fuller RN Position: [facility] RN Member Role: Primary Care Nurse Name: Julius Stringer RN Position: [facility] RN Member Role: Primary Care Nurse Name: Shantell Carter Position: [facility] RN Member Role: Primary Care Nurse Name: Libia Rivera RN Position: [facility] RN Member Role: Primary Care Nurse Name: Michelle Morris RN Position: [facility] AMB Nurse Member Role: Primary Care Nurse Name: Shravan Baker Position: [facility] Associate Professional Member Role: ED Physician Broth Setter Address: Address: [address] [place] [address] [place] [address]- Name: Karen Jaime DO Position: [facility] ED Medicine MD Member Role: Admitting Physician Address: Address: [address] [place] [address] [place] [address]- Care Team Related Persons Name: ADRYAN GOVEA Address: home [address] [facility] [address] [place] [address] Name: TAMARA GOVEA Address: home [address] [facility] [address] [facility] [place] [address]
--- OUTSIDE RECORDS SUMMARY | 2023-07-07 09:00 | XMS_ITS | Continuity of Care Document ---
Author Name Unknown Organization [facility] Paulino Leif lt Address [address] [place] [address]- Care Team Providers Care Computer Hardware Technician Name Role Phone Ranjeet Rushing MD Primary Care Physician [phone] Encounter [facility] Date(s): 08/21/22 - 09/20/22 [facility] [place] Adult [address] [place] [address]- Allergies, Adverse Reactions, Alerts Substance Reaction Severity [...] Adria rded influenza virus vaccine, inactivated 05/05/15 Adrai rded influenza virus vaccine, inactivated 05/29/14 Adria [...] 11 07/19/08 Gi sarah 1Result Comment: [05/28/2017] [facility]: [id number] 2Location History: [facility] 3Admin Note: VIS GIVEN-DATED 04/04/09 4Admin Note: vis given 5Admin Note: VIS given 6Admin Note: VIS-GIVEN 7Location History: [facility] 8Location History: [facility] 9Evelyne Comment: [10/17/2015] PER NICO AT [facility] 10Admin Note: VIS GIVEN 11Admin Note: [...] 11 Refills, Maintenance, 05/07/22 16:00:00 EDT, Powder, [facility]/pharmacy #[id number], 2 puffs Inhalation Every 6 hours,PRN:as needed, 160, cm, 04/24/22 8:34:00 EDT, Height, 72.7, kg, 04/24/22 8:34:00... Start Date: 05/07/22 Status: Ordered alendronate 70 mg oral tablet 1 tablet, By Mouth, Every week, # 12 tablet, 1 Refills, Maintenance, 07/12/22 10:05:00 EST, [facility], 160, cm, 07/09/22 14:04:00 EST, Height, 72.7, kg, 04/24/22 8:34:00 EDT, Dry Weight Start Date: 07/12/22 Status: Ordered allopurinol 300 mg oral tablet 1, tablet, By Mouth, Daily, # 90 tablet, Refills 0, Route to [facility]acy Electronically, [facility], 160, cm, 02/21/22 15:11:00 EDT, Height, 74.8, kg, 11/01/21 15:05:00 EST, Dry Weight Start Date: 03/27/22 Status: Ordered BACK BRACE BACK BRACE, See Instructions, # 1 each, Refills 0, Tot. Refills 0, Maintenance, DX BACK PAIN M54.9 DANTE LIFETIME HT 5'3 WT 182 LB, 07/23/16 14:35:27, Compound Start Date: 07/23/16 Status: Ordered BD UF SHORT PEN NEEDLE [id number] BD UF SHORT PEN NEEDLE [id number], See Instructions, # 200 Unknown, 5 Refills, [...] 3 Refills, Maintenance, 04/12/22 16:02:00 EDT, Tablet, [facility]/pharmacy #0693, 160, cm, 04/10/22 14:31:00 EDT, [...] Maintenance, 05/23/2213:56:00 EDT, [facility] to Pharmacy Electronically, [facility] [...] tablet, Refills 1, Route to Pharmacy Electronically, [facility], 160, cm, 02/21/22 15:11:00 EDT, Height, 74.8, kg, 11/01/21 15:05:00 EST, Dry Weight Start Date: 03/12/22 Status: Ordered Lidoderm 5% film 1 patch, Topically, Daily, # 30 patch, 11 Refills, Maintenance, 12/28/21 15:03:00 EDT, [facility]/pharmacy#0693, Partial fill upon patient request if the prescription is for a schedule II opioid drug., 1 patch Topically Daily,x30 days, 160, cm, 11/27/21 14:... Start Date: 12/28/21 Stop Date: 12/23/22 Status: Ordered Lyrica 150 mg oral capsule 1 capsule = 150 mg, By Mouth, 2 times a day, DOSAGE INCREASE, # 60 capsule, 3 Refills, Maintenance,08/05/22 10:44:00 EST, Capsule, [facility]/pharmacy #0693, 160, cm, 07/23/22 20:25:00 EST, Height, 71.8, kg, 07/23/22 20:25:00 EST, Dry Weight Start Date: 08/05/22 Status: Ordered magnesium oxide 400 mg oral tablet 1 tablet, By Mouth, Daily, # 100 tablet, 2 Refills, [facility], 160, cm, 02/21/22 15:11:00 EDT, Height, 74.8, kg, 11/01/21 15:05:00 EST, Dry Weight Start Date: 03/28/22 Status: Ordered Melatonin 3 mg oral tablet 1 tablet, By Mouth, Daily at bedtime, PRN NEEDED, # 90 tablet, 3 Refills, Maintenance, 09/12/22 11:29:00 EST, [facility], 90, TAKE 1 TABLET BY MOUTH AT [...] 0 Refills, Maintenance, 08/30/22 18:27:00 EST, Tablet, [facility]/pharmacy #[id number], Partial fill upon patient request if the prescription is for a schedule II opioid drug., 160, cm, 07/23/22 20:25:00 E... Start Date: 08/30/22 Status: Ordered Multivitamin 1 tablet, By Mouth, Daily, 0 Refills, Maintenance, 12/09/19 16:05:00 EDT Start Date: 12/09/19 Status: Ordered Pen [place], 31 G x 5 mm BD Ultra [...] 07/15/22 11:54:00 EST, Route to Pharmacy Electronically, [facility]/pharmacy #[id number], 160, cm, 07/09/22 14:04:00 EST, Height, [...] 1, 07/26/22 19:58:00 EST, Route toPharmacy Electronically, [facility]/pharmacy #[id number], 160, cm, 07/23/22 20:25:00 EST, Height, [...] 05/23/22 13:56:00 EDT, [facility] to Pharmacy Electronically, [facility] [...] 11 Refills, Soft Stop, 06/21/22 13:29:00 EDT, [facility]/pharmacy #[id number], 160, cm, 05/17/22 9:55:00 EDT, Height, [...] Refills, Maintenance, 05/07/22 15:49:00 EDT, [facility], 160, cm, 04/24/22 8:34:00 EDT, Height, 72.7, [...] Active Osteoporosis Confirmed Active *[facility] [phone] 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 Gume Mart Social History Social History Type Response Smoking Status Former smoker, quit more than 30 days ago entered on: 09/28/21 Sex Patient Care team information Care Team Personnel Name: Carmita Enriquez RN Position: [facility] RN Member Role: Primary Care Nurse Name: Mattie Morris RN Position: [facility] RN Member Role: Primary Care Nurse Name: Ranjeet Rushing MD Position: [facility] Primary Care Physician Member Role: PCP Address: Address: [address] [place] [address] - Name: Yoselyn Bradley RN Position: [facility] RN Member Role: Primary Care Nurse Name: Chari Grey NP Position: [facility] PCO Associate Professional Member Role: Lifetime Consulting Provider Address: Address: [address] [place] [address] - Name: Yariel Fuller RN Position: [facility] RN Member Role: Primary Care Nurse Name: Julius Stringer RN Position: [facility] RN Member Role: Primary Care Nurse Name: Shantell Carter Position: S RN Member Role: Primary Care Nurse Name: Michelle Morris RN Position: [facility] PCO RN Member Role: Primary Care Nurse Care Team Related Persons Name: ADRYAN GOVEA Address: [address] [facility] [address] [place] [address] Name: TAMARA GOVEA Address: [address] [place] [address]
--- OUTSIDE RECORDS SUMMARY | 2023-07-07 09:00 | XMS_ITS | Continuity of Care Document ---
Author Name Unknown Organization [facility] Paulino Leif lt Address [address] [place] [address]- Care Team Providers Care Measurement Psychologist Name Role Phone Kristan SUTTON, Ranjeet Beatty Primary Care Physician Encounter [facility] Date(s): 07/09/22 - 07/16/22 [facility] Adult [address] [place] [address]- Attending Physician: Chari Grey NP Referring Physician: [...] Pneumococcal Poly (PPV23) (oldterm) 11 07/19/08 Gi asrah 1Result Comment: [05/28/2017] [facility]: [id number] 2Location History: [facility] 3Admin Note: VIS GIVEN-DATED 04/04/09 4Admin Note: vis given 5Admin Note: VIS given 6Admin Note: VIS-GIVEN 7Location History: [facility] 8Location History: [facility] [address] Seaman Comment: [10/17/2015] PER NICO AT [facility] 10Admin Note: VIS GIVEN 11Admin Note: [...] 11 Refills, Maintenance, 05/07/22 16:00:00 EDT, Powder, [facility]/pharmacy #[id number], 2 puffs Inhalation Every 6 hours,PRN:as needed, 160, cm, 04/24/22 8:34:00 EDT, Height, 72.7, kg, 04/24/22 8:34:00... Start Date: 05/07/22 Status: Ordered alendronate 70 mg oral tablet 1 tablet, By Mouth, Every week, # 12 tablet, 1 Refills, Maintenance, 07/12/22 10:05:00 EST, [facility], 160, cm, 07/09/22 14:04:00 EST, Height, 72.7, kg, 04/24/22 8:34:00 EDT, Dry Weight Start Date: 07/12/22 Status: Ordered allopurinol 300 mg oral tablet 1, tablet, By Mouth, Daily, # 90 tablet, Refills 0, Route to Pharmacy Electronically, [facility], 160, cm, 02/21/22 15:11:00 EDT, Height, 74.8, kg, 11/01/21 15:05:00 EST, Dry Weight Start Date: 03/27/22 Status: Ordered BACK BRACE BACK BRACE, See Instructions, # 1 each, Refills 0, Tot. Refills 0, Maintenance, DX BACK PAIN M54.9 DANTE LIFETIME HT 5'3 WT 182 LB, 07/23/16 14:35:27, Compound Start Date: 07/23/16 Status: Ordered BD UF SHORT PEN NEEDLE [id number] BD UF SHORT PEN NEEDLE [id number], See Instructions, # 200 Unknown, 5 Refills, [...] 3 Refills, Maintenance, 04/12/22 16:02:00 EDT, Tablet, [facility]/pharmacy #[id number], 160, cm, 04/10/22 14:31:00 EDT, [...] Maintenance, 05/23/2213:56:00 EDT, Route to Pharmacy Electronically, [facility]/pharmacy #0693, Partial fill [...] tablet, Refills 1, Route to Pharmacy Electronically, [facility], 160, cm, 02/21/22 15:11:00 EDT, Height, 74.8, kg, 11/01/21 15:05:00 EST, Dry Weight Start Date: 03/12/22 Status: Ordered Lidoderm 5% film 1 patch, Topically, Daily, # 30 patch, 11 Refills, Maintenance, 12/28/21 15:03:00 EDT, [facility]/pharmacy#0693, Partial fill upon patient request if the prescription is for a schedule II opioid drug., 1 patch Topically Daily,x30 days, 160, cm, 11/27/21 14:... Start Date: 12/28/21 Stop Date: 12/23/22 Status: Ordered Lyrica 150 mg oral capsule 1 capsule = 150 mg, By Mouth, 2 times a day, DOSAGE INCREASE, # 60 capsule, 3 Refills, Maintenance,03/26/22 10:58:00 EDT, Capsule, [facility]/pharmacy #0693, 160, cm, 02/21/22 15:11:00 EDT, Height, 74.8, kg, 11/01/21 15:05:00 EST, Dry Weight Start Date: 03/26/22 Status: Ordered magnesium oxide 400 mg oral tablet 1 tablet, By Mouth, Daily, # 100 tablet, 2 Refills, [facility], 160, cm, 02/21/22 15:11:00 EDT, Height, 74.8, [...] EDT Start Date: 12/09/19 Status: Ordered Pen [place], 31 G x 5 mm BD Ultra [...] 07/15/22 11:54:00 EST, Route to Pharmacy Electronically, [facility]/pharmacy #[id number], 160, cm, 07/09/22 14:04:00 EST, [...] Pharmacy Electronically, [facility], 160, cm, 11/27/21 14:08:00 EDT, Height, 74.8, kg, 11/01/21 15:05:00 EST, Dry Weight Start Date: 01/11/22 Status: Ordered traMADol 50 mg oral tablet See Instructions, TAKE 1-2 TABLETS BY MOUTH EVERY 6 HOURS SCHEDULE FOLLOW VISIT, NEEDED FOR PAIN, # 240 tablet, 5 Refills, Maintenance, 01/17/22 11:33:00 EDT, [facility]/pharmacy #0693, 160, cm, 11/27/2213:08:00 EDT, Height, 74.8, [...] 05/23/22 13:56:00 EDT, Route to Pharmacy Electronically, [facility]/pharmacy #[id number], Partial fill [...] Refills, Maintenance, 05/07/22 15:49:00 EDT, [facility], 160, cm, 04/24/22 8:34:00 EDT, Height, 72.7, [...] Confirmed Active *[facility] [phone] 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 2Carotid ultrasound 2015 showing bilateral noncritical carotid stenosis. 50-70% bilaterally. 3Per chart review meeting GFR criteria 4Per MOCA done at [facility] 5Patient's welder gun is [facility] and patient sees Dr. Gume Mart Vital Signs Most recent to oldest [Reference Range]: 1 Height 160 cm (07/09/22 2:04 PM) Weight 71.9 kg (07/09/22 2:04 PM) Oxygen Saturation [94-100 %] 95 % (07/09/22 2:04 PM) Pulse Rate [55-90 bpm] 112 bpm *H* (07/09/22 2:04 PM) Body Mass Index [18.5-24.99 kg/m2] 28.09 kg/m2 *H* (07/09/22 2:04 PM) Blood Pressure [90-138/55-84 mm Hg] 126/ 70mm Hg (07/09/22 2:04 PM) Respiratory Rate [16-30 br/min] 20 br/mi n (07/09/22 2:04 PM) Temperature [96.8-100.4 DegF] 98.7 DegF (07/09/22 2:04 PM) Mode of Delivery (Oxygen) Room air (07/09/22 2:04 PM) Blood pressure sites Arm, left (07/09/22 2:04 PM) Temperature Route Oral (07/09/22 2:04 PM) Weight Obtained Via Standing scale (07/09/22 2:04 PM) Social History Social History Type Response [...] Care Physician Member Role: PCP Address: Address: [address] [place] [id number]- Name: Yoselyn Bradley RN Position: [facility] RN Member Role: Primary Care Nurse Name: Chari Grey NP Position: [facility] PCO Associate Professional Member Role: Lifetime Consulting Provider Address: Address: [address] [place] [id number]- Name: Yariel Fuller RN Position: [facility] [...] ADRYAN GOVEA Address: home [address] [facility] [address] [place], [place] Name: TAMARA GOVEA Address: home [address] [facility] [address] [place] [address]
--- OUTSIDE RECORDS SUMMARY | 2023-07-07 09:00 | XMS_ITS | Continuity of Care Document ---
Author Name Unknown Organization [facility] Leif lt Address [address] [place] [address]- Care Team Providers Care Big Data Hadoop Developer Name Role Phone Ranjeet Rushing MD Primary Care Physician Encounter [facility] Date(s): 01/28/23 - 02/27/23 [facility] Adult [address] [place] [address]- Allergies, Adverse Reactions, Alerts Substance Reaction Severity [...] Gi sarah 1Result Comment: [05/28/2017] [facility]: [id number] 2Location History: [facility] 3Admin Note: VIS GIVEN-DATED 04/04/09 4Admin Note: vis given 5Admin Note: VIS given 6Admin Note: VIS-GIVEN 7Location History: [facility] 8Location History: [facility] 9Resesperanza Comment: [10/17/2015] PER NICO AT [facility] 10Admin Note: VIS GIVEN [...] 2 Refills, Maintenance, 01/20/23 22:52:00 EDT, Powder, [facility]/pharmacy #[id number], [...] 14:16:00 EDT, Route to Pharmacy Electronically, [facility], 161, cm, 02/20/23 15:50:00 EDT, Height, 77.2, kg, 11/13/22 13:42:00 EDT, Dry Weight Start Date: 02/21/23 Status: Ordered BD UF SHORT PEN NEEDLE [id number] BD UF SHORT PEN NEEDLE [id number], See Instructions, # 200 Unknown, 5 Refills, USE TO INJECT INSULIN TWICE A DAY, 160, cm, 11/27/21 14:08:00 EDT, Height, 74.8, kg, 11/01/21 15:05:00 EST, Dry Weight Start Date: 11/30/21 Status: Ordered colchicine 0.6 mg oral capsule 1 capsule = 0.6 mg, By Mouth, 2 times a day, # 20 capsule, 0 Refills, Maintenance, 12/31/22 10:10:00 EDT, Capsule, [facility]/pharmacy #[id number], Partial fill upon patient request if the [...] 0 Refills, Maintenance, 02/21/23 14:16:00 EDT, [facility], 161, cm, 02/20/23 15:50:00 EDT, Height, [...] 11/28/22... 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 Gume Mart 6MOCA 20 Social History Social History Type Response Smoking Status Former smoker, quit more than 30 days ago; Other: QUIYT COUPLE YEARS AGO; entered on: 11/13/22 Sex Patient Care team information Care Team Personnel Name: Trinity Lloyd MD Position: [facility] Outreach Member Role: Lifetime Consulting Physician Name: Carmita Enriquez RN Position: [facility] RN Member Role: Primary Care Nurse Name: Mattie Morris RN Position: [facility] RN Supv Member Role: Primary Care Nurse Name: Ranjeet Rushing MD Position: [facility] Physician - Primary Care Member Role: PCP Address: Address: [address] [place] [address] - Name: Yoselyn Bradley RN Position: [facility] RN Member Role: Primary Care Nurse Name: Chari Grey NP Position: [facility] PCO Associate Professional Member Role: Lifetime Consulting Provider Address: Address: [address] [place] [address] - [place] Name: Yariel Fuller RN Position: [facility] RN Member Role: Primary Care Nurse Name: Julius Stringer RN Position: [facility] RN Member Role: Primary Care Nurse Name: Shantell Carter Position: [facility] RN Member Role: Primary Care Nurse Name: Michelle Morris RN Position: [facility] AMB Nurse Member Role: Primary Care Nurse Care Team Related Persons Name: ADRYAN GOVEA Address: home [address] [place], [place] Name: TAMARA GOVEA Address: home [address] [facility] [address] [place] [address]
--- OUTSIDE RECORDS SUMMARY | 2023-07-07 09:01 | XMS_ITS | Continuity of Care Document ---
Author Name Unknown Organization [facility] Paulino Leif lt Address [address] [place] [address]- Care Team Providers Care Hardware Assembler Name Role Phone Ranjeet Rushing MD Primary Care Physician [facility]counter [facility] Date(s): 12/11/22 - 01/10/23 [facility] Adult [address] [place] [address]- Allergies, Adverse Reactions, Alerts Substance Reaction Severity [...] 07/19/08 Gi sarah 1Result Comment: [05/28/2017] HD [facility]: [id number] 2Location History: [facility] 3Admin Note: VIS GIVEN-DATED 04/04/09 4Admin Note: vis given 5Admin Note: VIS given 6Admin Note: VIS-GIVEN 7Location History: [facility] 8Location History: [facility] 9Evelyne Comment: [10/17/2015] [facility] Refills, Maintenance, 05/07/22 16:00:00 EDT, Powder, [facility]/pharmacy #1995, 2 puffs Inhalation Every 6 hours,PRN:as needed, [...] Status: Ordered BD UF SHORT PEN NEEDLE [id number] BD UF SHORT PEN NEEDLE [id number], See Instructions, # 200 Unknown, 5 Refills, USE TO INJECT INSULIN TWICE A DAY, 160, cm, 11/27/21 14:08:00 EDT, Height, 74.8, kg, 11/01/21 15:05:00 EST, Dry Weight Start Date: 11/30/21 Status: Ordered colchicine 0.6 mg oral capsule 1 capsule = 0.6 mg, By Mouth, 2 times a day, # 20 capsule, 0 Refills, Maintenance, 12/31/22 10:10:00 EDT, Capsule, [facility]/pharmacy #[id number], Partial fill upon patient request if the [...] 11/28/22... Start Date: 12/13/22 Status: Ordered Pen [place], 31 G x 5 mm BD Ultra [...] Refills, Maintenance, 11/28/22 13:19:00 EDT, Tablet, [facility]/pharmacy #0651, Partial fill upon patient request if t... 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 Gume Mart 6MOCA 20 Social History Social History Type Response Smoking Status Former smoker, quit more than 30 days ago; Other: QUIYT COUPLE YEARS AGO; entered on: 11/13/22 Sex Patient Care team information Care Team Personnel Name: Carmita Enriquez RN Position: [facility] RN Member Role: Primary Care Nurse Name: Mattie Morris RN Position: [facility] RN Supv Member Role: Primary Care Nurse Name: Ranjeet Rushing MD Position: [facility] Primary Care Physician Member Role: PCP Address: Address: [address] [place] [address]- Name: Yoselyn Bradley RN Position: [facility] RN Member Role: Primary Care Nurse Name: Chari Grey NP Position: [facility] PCO Associate Professional Member Role: Lifetime Consulting Provider Address: Address: [address] [place] [address] - Name: Yariel Fuller RN Position: [facility] RN Member Role: Primary Care Nurse Name: Julius Stringer RN Position: S RN Member Role: Primary Care Nurse Name: Shantell Carter Position: S RN Member Role: Primary Care Nurse Name: Michelle Morris RN Position: [facility] PCO RN Member Role: Primary Care Nurse Care Team Related Persons Name: ADRYAN GOVEA Address: [place] [address] [facility] [address] [place] [address] Name: GOVEA TAMARA Address: [address] [place] [address]
--- OUTSIDE RECORDS SUMMARY | 2023-07-07 09:01 | XMS_ITS | Continuity of Care Document ---
Author Name Unknown Organization [facility] Paulino Leif lt Address [address] [place] [address]- Care Team Providers Care Carpet Sewer Name Role Phone Ranjeet Rushing MD Primary Care Physician [phone] Encounter [facility] Date(s): 12/11/22 - 01/10/23 [facility] Adult [address] [place] [address]- Allergies, Adverse Reactions, Alerts Substance Reaction Severity [...] sarah 1Result Comment: [05/28/2017] [facility]: [id number] 2Location History: [facility] 3Admin Note: VIS GIVEN-DATED 04/04/09 4Admin Note: vis given 5Admin Note: VIS given 6Admin Note: VIS-GIVEN 7Location History: [facility] 8Location History: [facility] 9Evelyne Comment: [10/17/2015] PER NICO AT [facility] 10Admin Note: VIS GIVEN 11Admin Note: VIS [...] Maintenance, 05/07/22 16:00:00 EDT, Powder, [facility]/pharmacy #[id number], 2 puffs Inhalation Every 6 hours,PRN:as needed, [...] Status: Ordered BD UF SHORT PEN NEEDLE [id number] BD UF SHORT PEN NEEDLE [id number], See Instructions, # 200 Unknown, 5 Refills, USE TO INJECT INSULIN TWICE A DAY, 160, cm, 11/27/21 14:08:00 EDT, Height, 74.8, kg, 11/01/21 15:05:00 EST, Dry Weight Start Date: 11/30/21 Status: Ordered colchicine 0.6 mg oral capsule 1 capsule = 0.6 mg, By Mouth, 2 times a day, # 20 capsule, 0 Refills, Maintenance, 12/31/22 10:10:00 EDT, Capsule, [facility]/pharmacy #[id number], Partial fill upon patient request if the [...] 11/28/22... Start Date: 12/13/22 Status: Ordered Pen [place], 31 G x 5 mm BD Ultra [...] Refills, Maintenance, 11/28/22 13:19:00 EDT, Tablet, [facility]/pharmacy #[id number], Partial fill upon patient request if t... 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 Gume Mart 6MOCA 20 Social History Social History Type Response Smoking Status Former smoker, quit more than 30 days ago; Other: QUIYT COUPLE YEARS AGO; entered on: 11/13/22 Sex Patient Care team information Care Team Personnel Name: Carmita Enriquez RN Position: [facility] RN Member Role: Primary Care Nurse Name: Mattie Morris RN Position: [facility] RN Supv Member Role: Primary Care Nurse Name: Ranjeet Rushing MD Position: [facility] Primary Care Physician Member Role: PCP Address: Address: [address] [place] [id number]- Name: Yoselyn Bradley RN Position: [facility] RN Member Role: Primary Care Nurse Name: Chari Grey NP Position: [facility] PCO Associate Professional Member Role: Lifetime Consulting Provider Address: Address: [address] [place] [address] - Name: Yariel Fuller RN Position: [facility] RN Member Role: Primary Care Nurse Name: Julius Stringer RN Position: S RN Member Role: Primary Care Nurse Name: Shantell Carter Position: S RN Member Role: Primary Care Nurse Name: Michelle Morris RN Position: [facility] PCO RN Member Role: Primary Care Nurse Care Team Related Persons Name: ADRYAN GOVEA Address: [address] [facility] [address] [place] [address] Name: GOVEA TAMARA Address: [address] [place] [address]
--- OUTSIDE RECORDS SUMMARY | 2023-07-07 09:01 | XMS_ITS | Continuity of Care Document ---
Author Name Unknown Organization [facility] al Address [address] [place] [address]- Care Team Providers Care Geographic Area Intelligence Officer Name Role Phone Ranjeet Rushing MD Primary Care Physician [phone] Encounter [facility] Date(s): 07/23/22 - 07/23/[address] [address]- Discharge Disposition: A-D/C Home Attending Physician: Gibson [...] Comment: [05/28/2017] [facility]: [id number] 2Location History: [facility] 3Admin Note: VIS GIVEN-DATED 04/04/09 4Admin Note: vis given 5Admin Note: VIS given 6Admin Note: VIS-GIVEN 7Location History: [facility] 8Location History: [facility] 9Evelyne Comment: [10/17/2015] PER NICO AT [facility] 10Admin Note: VIS GIVEN 11Admin Note: VIS [...] Refills, Maintenance, 05/07/22 16:00:00 EDT, Powder, [facility]/pharmacy #[id number], 2 puffs Inhalation Every 6 hours,PRN:as needed, 160, cm, 04/24/22 8:34:00 EDT, Height, 72.7, kg, 04/24/22 8:34:00... Start Date: 05/07/22 Status: Ordered alendronate 70 mg oral tablet 1 tablet, By Mouth, Every week, # 12 tablet, 1 Refills, Maintenance, 07/12/22 10:05:00 EST, [id number], 160, cm, 07/09/22 14:04:00 EST, Height, 72.7, kg, 04/24/22 8:34:00 EDT, Dry Weight Start Date: 07/12/22 Status: Ordered allopurinol 300 mg oral tablet 1, tablet, By Mouth, Daily, # 90 tablet, Refills 0, Route to Pharmacy Electronically, [facility], 160, cm, 02/21/22 15:11:00 EDT, Height, 74.8, kg, 11/01/21 15:05:00 EST, Dry Weight Start Date: 03/27/22 Status: Ordered BACK BRACE BACK BRACE, See Instructions, # 1 each, Refills 0, Tot. Refills 0, Maintenance, DX BACK PAIN M54.9 DANTE LIFETIME HT 5'3 WT 182 LB, 07/23/16 14:35:27, Compound Start Date: 07/23/16 Status: Ordered BD UF SHORT PEN NEEDLE [id number] BD UF SHORT PEN NEEDLE [id number], See Instructions, # 200 Unknown, 5 Refills, [...] EDT, Compound Start Date: 05/11/19 Status: Ordered [facility] VITAMIN D3 25 MCG SOFTGEL [facility] V[facility]AMIN D3 25 MCG SOFTGEL, 1, capsule, By Mouth, Daily, # 90 capsule, 1 Refills, 160, cm, 10/16/21 14:42:00 EST, Height, 75, kg, 09/14/21 11:51:00 EST, Dry Weight Start Date: 10/17/21 Status: Ordered cyanocobalamin 500 mcg oral tablet 1 tablet = 500 mcg, By Mouth, Daily, # 90 tablet, 3 Refills, Maintenance, 04/12/22 16:02:00 EDT, Tablet, [facility]/pharmacy #[id number], 160, cm, 04/10/22 14:31:00 EDT, Height, [...] Maintenance, 05/23/2213:56:00 EDT, [facility], Route to Pharmacy Electronically, [id number], 160, cm, 02/21/22 15:11:00 EDT, Height, 74.8, kg, 11/01/21 15:05:00 EST, Dry Weight Start Date: 03/12/22 Status: Ordered Lidoderm 5% film 1 patch, Topically, Daily, # 30 patch, 11 Refills, Maintenance, 12/28/21 15:03:00 EDT, [facility]/pharmacy#[id number], Partial fill upon patient request if the prescription is for a schedule II opioid drug., 1 patch Topically Daily,x30 days, 160, cm, 11/27/21 14:... Start Date: 12/28/21 Stop Date: 12/23/22 Status: Ordered Lyrica 150 mg oral capsule 1 capsule = 150 mg, By Mouth, 2 times a day, DOSAGE INCREASE, # 60 capsule, 3 Refills, Maintenance,03/26/22 10:58:00 EDT, Capsule, [facility]/pharmacy #[id number], 160, cm, 02/21/22 15:11:00 EDT, Height, 74.8, kg, 11/01/21 15:05:00 EST, Dry Weight Start Date: 03/26/22 Status: Ordered magnesium oxide 400 mg oral tablet 1 tablet, By Mouth, Daily, # 100 tablet, 2 Refills, [facility], 160, cm, 02/21/22 15:11:00 EDT, Height, 74.8, kg, 11/01/21 15:05:00 EST, Dry Weight Start Date: 03/28/22 Status: Ordered Melatonin 3 mg oral tablet 1 tablet = 3 mg, By Mouth, Daily at bedtime, PRN for insomnia, [facility], # 90 tablet, 3 Refills, Maintenance, 10/17/21 12:02:00 EST, Tablet, [facility]/pharmacy #[id number], 1 tablet By Mouth Daily at bedtime,PRN:for insomnia,Instr:[email or web address] brand, 160, cm, 10/16/21 14... Start Date: [...] 16:05:00 EDT Start Date: 12/09/19 Status: Ordered naproxen 250 mg oral tablet 250 mg, 1, tablet, By Mouth, 2 times a day, for 7 days, # 14 tablet, Refills 0, Tot. Refills 0, Acute 07/30/22 20:17:00 EST, 07/23/22 20:17:00 EST, Route to Pharmacy Electronically, [facility]/pharmacy #[id number], Partial fill upon patient request if the prescrip... Start Date: 07/23/22 Stop Date: 07/30/22 Status: Ordered oxyCODONE 5 mg oral tablet 5 mg, 1, tablet, By Mouth, Every 4 hours, PRN, # 16 tablet, Refills 0, Tot. Refills 0, Acute 07/30/22 20:17:00 EST, as needed for pain, 07/23/22 20:17:00 EST, Route to Pharmacy Electronically, [facility]/pharmacy #[id number], Partial fill upon patient request, 160... Start Date: 07/23/22 Stop Date: 07/30/22 Status: Ordered Pen [place], 31 G x 5 mm BD Ultra Fine III See Instructions, # 200 each, Refills 5, Tot. Refills 5, Maintenance, To inject insulin BID for DM II E11.9 PER CHARI GREY CHECK PROCESSOR-C, 10/06/20 10:54:00 EST, SHORT, Compound, 160, cm, 10/05/20 14:31:00 EST, Height, 77.5, kg, 10/05/20 14:31:00 EST, Dry W... Start Date: 10/06/20 Status: Ordered Percocet-5/325 325 mg-5 mg oral tablet 1 tablet, Tablet, By Mouth, Once, STAT, 07/23/22 20:10:00 EST, Stop date 07/23/22 20:10:00 EST Start Date: 07/23/22 Stop Date: 07/23/22 Status: Completed Percocet-5/325 325 mg-5 mg oral tablet 3 tablet, Tablet, By Mouth, On Discharge for 7 days, one tab every 4 hours as needed for pain, STAT, 07/23/22 20:10:00 EST, Stop date 07/30/22 20:09:00 EST Start Date: 07/23/22 Stop Date: 07/23/22 Status: Completed simethicone 80 mg oral tablet, chewable 80 [...] 07/15/22 11:54:00 EST, Route to Pharmacy Electronically, [facility]/pharmacy #[id number], 160, cm, 07/09/22 14:04:00 EST, Height, [...] 1, Route to Pharmacy Electronically, [facility], 160, cm, 11/27/21 14:08:00 EDT, Height, 74.8, kg, 11/01/21 15:05:00 EST, Dry Weight Start Date: 01/11/22 Status: Ordered traMADol 50 mg oral tablet See Instructions, TAKE 1-2 TABLETS BY MOUTH EVERY 6 HOURS SCHEDULE FOLLOW VISIT, NEEDED FOR PAIN, # 240 tablet, 5 Refills, Maintenance, 01/17/22 11:33:00 EDT, [facility]/pharmacy #[id number], 160, cm, 11/27/2213:08:00 EDT, Height, 74.8, [...] 13:56:00 EDT, [facility] 11 Refills, Soft Stop, 06/21/22 13:29:00 EDT, [facility]/pharmacy #[id number], 160, cm, 05/17/22 9:55:00 EDT, Height, [...] Refills, Maintenance, 05/07/22 15:49:00 EDT, [facility], 160, cm, 04/24/22 8:34:00 EDT, Height, 72.7, [...] (osteoarthritis), cervical Confirmed Active Osteoporosis Confirmed Active *[facility] [phone] 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 2Carotid ultrasound 2016 showing bilateral noncritical carotid stenosis. 50-70% bilaterally. 3Per chart review meeting GFR criteria 4Per MOCA done at [facility] 5[facility] smoking pipe [facility] and [facility] Dr. Gume Mart Vital Signs Most recent to oldest [Reference Range]: 1 2 3 Height 160 cm (07/23/22 8:25 PM) 160 cm (07/23/22 6:30 PM) 160 cm (07/23/22 6:29 PM) Weight 71.8 kg (07/23/22 8:25 PM) 71.8 kg (07/23/22 6:30 PM) 71.8 kg (07/23/22: PM) Oxygen Saturation [94-100 %] 96 % (07/23/22 8:25 PM) 95 % (07/23/22 6: PM) Pulse Rate [55-90 bpm] 91 bpm *H* (07/23/22 8:25 PM) 103 bpm *H* (07/23/22 6:29 PM) Body Mass Index [18.5-24.99 kg/m2] 28.05 kg/m2 *H* (07/23/22 6:29 PM) Blood Pressure [90-138/55-84 mm Hg] 142/88mm Hg *H* (07/23/22 8:25 PM) 138/96mm Hg (07/23/22 6:29 PM) Respiratory Rate [16-30 br/min] 18 br/min (07/23/22 8:25 PM) 18 br/min (07/23/22 8:19 PM) 18 br/min (07/23/22 8:19 PM) Temperature [96.8-100.4 DegF] 98.1 DegF (07/23/22 6:29 PM) Mode of Delivery (Oxygen) Room air (07/23/22 8:25 PM) Room air (07/23/22 6:29 PM) Temperature Route Oral (07/23/22 6:29 PM) Dry Weight 71.8 kg (07/23/22 8:25 PM) 71.8 kg (07/23/22 6:30 PM) 71.8 kg (07/23/22 6:29 PM) Weight Obtained Via Standing scale (07/23/22 6:29 PM) Dry Weight Obtained Via Standing scale (07/23/22 6:29 PM) Social History Social History Type Response Smoking Status Former smoker, quit more than 30 days ago entered on: 09/28/21 Sex Note * Gibson Ruth MD: PERFORM, SIGN, VERIFY Event Display: Patient Education Handout Authored Date: * Gibson Ruth MD: PERFORM Event Display: Patient Education Leaflets Authored Date: Sciatica ?? [id number] Sciatica Sciatica is a condition that causes pain in the low back that spreads down into the buttock, hip, and leg. Sometimes the leg pain can happen without any back pain. Sciatica happens when a spinal nerve is irritated or has pressure put on it as it comes out of the spinal canal in the low back. This most often happens when a bulge or rupture of a nearby spinal disk presses on the nerve. Sciatica canalso be caused by a narrowing of the spinal canal (spinal stenosis) or spasm of the muscle in the buttocks that the sciatic nerve passes through (piriformis muscle). Sciatica may also be called lumbar radiculopathy. Sciatica may start after a sudden twisting or bending force, such as in a car accident. Or it can happen after a simple awkward movement. In either case, muscle spasm often also happens. Muscle spasmmakes the pain worse. A healthcare provider makes a diagnosis of sciatica from your symptoms and a physical exam. Unless you had an injury from a car accident or fall, you usually won???t have X-rays taken at this time. This is because the nerves and disks in your back can???t be seen on an X-ray. If the provider suspects a compressed nerve based on your history or exam, you'll need to schedule an MRI scan. Nerve conductions studies and electromyography are nerve tests that can also help find the cause of nerve pain. Signs of a compressed nerve include loss of strength or reflexes in a leg. Most sciatica gets better with medicine, exercise, and physical therapy. If your symptoms continue after medical treatment, you may need surgery or shots (injections) to your low back. This will depend on how severe your symptoms are. Home care Follow these tips when caring for yourself at home: ??? As soon as possible, start sitting up or walking. This will help you prevent problems that come from staying in bed for long periods. ??? When in bed, try to find a position that is comfortable. A firm mattress is best. Try lying flat on your back with pillows under your knees. You can also try lying on your side with your knees bent up toward your chest and a pillow between your knees. ??? Don't sit for long periods. This puts more stresson your low back than standing or walking. ??? Use heat from a hot shower, hot bath, or heating padto help ease pain. Massage can also help. You can also try using an ice pack. You can make your ownice pack by putting ice cubes in a plastic bag that seals at the top. Wrap the bag in a thin towel.Try both heat and cold to see which works best. Use the method that feels best for 20 minutes several times a day. ??? You may use acetaminophen or ibuprofen to ease pain, unless another pain medicine was prescribed. Note: If you have chronic liver or kidney disease, talk with your healthcare provider before taking these medicines. Also, talk with your provider if you???ve had a stomach ulcer or digestive tract bleeding. ??? Use safe lifting methods. Don???t lift anything heavier than advised until all of the pain is gone. ?? Follow-up care Follow up with your healthcare provider, or as advised. You may need physical therapy or more tests. If X-rays were taken, a radiologist will look at them. You'll be told of any new findings that may affect your care. ?? When to get medical care Call your healthcare provider right away??if any of these occur: ??? Pain gets worse even after taking prescribed medicine ??? Weakness or numbness in 1 or both legs or hips ??? Numbness in your groin or genital area ??? You can???t control your bowel or bladder ??? Fever 100.4??F (38??C) or higher, or as advised by your provider ??? Redness or swelling over your back or spine? Last Reviewed Date: 2021 ?? [id number] [employer]. All rights reserved. This information is not [...] Care Physician Member Role: PCP Address: Address: [address] [place] [address] - [place] Name: Yoselyn Bradley RN Position: [facility] RN Member Role: Primary Care Nurse Name: Chari Grey NP Position: [facility] PCO Associate Professional Member Role: Lifetime Consulting Provider Address: Address: [address] [place] [address] - Name: Yariel Fuller RN Position: [facility] RN Member Role: Primary Care Nurse Name: Julius Stringer RN Position: [facility] RN Member Role: Primary Care Nurse Name: Shantell Carter Position: [facility] RN Member Role: Primary Care Nurse Name: Michelle Morris RN Position: [facility] PCO RN Member Role: Primary Care Nurse Name: Meggan White RN Position: [facility] ED RN W/OE and Tasks Member Role: Patient Care Provider Name: Gibson Ruth MD Position: [facility] ED Medicine MD Member Role: Admitting Physician Address: Address: [address] [place] [address]- Care Team Related Persons Name: ADRYAN GOVEA Address: home [address] [facility] [address] [place], [place] Name: TAMARA GOVEA Address: home [address] [facility] [address] [place] [address]
--- OUTSIDE RECORDS SUMMARY | 2023-07-07 09:02 | XMS_ITS | Continuity of Care Document ---
Author Name Unknown Organization [facility] Leif lt Address [address] [place] [address]- Care Team Providers Care Victim Witness Administrator Name Role Phone Kristan SUTTON, Ranjeet Beatty Primary Care Physician [facility] Date[facility]s): 08/14/22 - 09/13/22 [facility] Adult [address] [place] [address]- Allergies, Adverse Reactions, Alerts Substance Reaction Severity [...] 11 07/19/08 Gi sarah 1Result Comment: [05/28/2017] [facility]: [id number] 2Location History: [facility] 3Admin Note: VIS GIVEN-DATED 04/04/09 4Admin Note: vis given 5Admin Note: VIS given 6Admin Note: VIS-GIVEN 7Location History: [facility] 8Location History: [facility] 9[place] Comment: [10/17/2015] PER NICO AT [facility] 10Admin Note: VIS GIVEN 11Admin [...] Maintenance, 05/07/22 16:00:00 EDT, Powder, [facility]/pharmacy #[id number], 2 puffs Inhalation Every 6 hours,PRN:as needed, 160, cm, 04/24/22 8:34:00 EDT, Height, 72.7, kg, 04/24/22 8:34:00... Start Date: 05/07/22 Status: Ordered alendronate 70 mg oral tablet 1 tablet, By Mouth, Every week, # 12 tablet, 1 Refills, Maintenance, 07/12/22 10:05:00 EST, [facility], 160, cm, 07/09/22 14:04:00 EST, Height, 72.7, kg, 04/24/22 8:34:00 EDT, Dry Weight Start Date: 07/12/22 Status: Ordered allopurinol 300 mg oral tablet 1, tablet, By Mouth, Daily, # 90 tablet, Refills 0, Route to Pharmacy Electronically, [facility], 160, cm, 02/21/22 15:11:00 EDT, Height, 74.8, kg, 11/01/21 15:05:00 EST, Dry Weight Start Date: 03/27/22 Status: Ordered BACK BRACE BACK BRACE, See Instructions, # 1 each, Refills 0, Tot. Refills 0, Maintenance, DX BACK PAIN M54.9 DANTE LIFETIME HT 5'3 WT 182 LB, 07/23/16 14:35:27, Compound Start Date: 07/23/16 Status: Ordered BD UF SHORT PEN NEEDLE [id number] BD UF SHORT PEN NEEDLE [id number], See Instructions, # 200 Unknown, 5 Refills, [...] Maintenance, 04/12/22 16:02:00 EDT, Tablet, [facility]/pharmacy #0693, 160, cm, 04/10/22 14:31:00 [...] Maintenance, 05/23/2213:56:00 EDT, [facility], [facility] tablet, Refills 1, Route to Pharmacy Electronically, [facility], 160, cm, 02/21/22 15:11:00 EDT, Height, 74.8, kg, 11/01/21 15:05:00 EST, Dry Weight Start Date: 03/12/22 Status: Ordered Lidoderm 5% film 1 patch, Topically, Daily, # 30 patch, 11 Refills, Maintenance, 12/28/21 15:03:00 EDT, [facility]/pharmacy#0693, Partial fill upon patient request if the prescription is for a schedule II opioid drug., 1 patch Topically Daily,x30 days, 160, cm, 11/27/21 14:... Start Date: 12/28/21 Stop Date: 12/23/22 Status: Ordered Lyrica 150 mg oral capsule 1 capsule = 150 mg, By Mouth, 2 times a day, DOSAGE INCREASE, # 60 capsule, 3 Refills, Maintenance,08/05/22 10:44:00 EST, Capsule, [facility]/pharmacy #0693, 160, cm, 07/23/22 20:25:00 EST, Height, 71.8, kg, 07/23/22 20:25:00 EST, Dry Weight Start Date: 08/05/22 Status: Ordered magnesium oxide 400 mg oral tablet 1 tablet, By Mouth, Daily, # 100 tablet, 2 Refills, [facility], 160, cm, 02/21/22 15:11:00 EDT, Height, 74.8, kg, 11/01/21 15:05:00 EST, Dry Weight Start Date: 03/28/22 Status: Ordered Melatonin 3 mg oral tablet 1 tablet, By Mouth, Daily at bedtime, PRN NEEDED, # 90 tablet, 3 Refills, Maintenance, 09/12/22 11:29:00 EST, [facility], 90, TAKE 1 TABLET BY MOUTH AT [...] 0 Refills, Maintenance, 08/30/22 18:27:00 EST, Tablet, [facility]/pharmacy #0693, Partial fill upon patient request if the prescription is for a schedule II opioid drug., 160, cm, 07/23/22 20:25:00 E... Start Date: 08/30/22 Status: Ordered Multivitamin 1 tablet, By Mouth, Daily, 0 Refills, Maintenance, 12/09/19 16:05:00 EDT Start Date: 12/09/19 Status: Ordered Pen [place], 31 G x 5 mm BD Ultra [...] 07/15/22 11:54:00 EST, Route to Pharmacy Electronically, [facility]/pharmacy #[id number], 160, cm, 07/09/22 14:04:00 [...] 1, 07/26/22 19:58:00 EST, Route toPharmacy Electronically, [facility]/pharmacy #[id number], 160, cm, 07/23/22 20:25:00 [...] 05/23/22 13:56:00 EDT, [facility] Pharmacy Electronically, [facility] [...] Refills, Maintenance, 05/07/22 15:49:00 EDT, [facility], 160, cm, 04/24/22 8:34:00 EDT, Height, 72.7, [...] (osteoarthritis), cervical Confirmed Active Osteoporosis Confirmed Active *[facility] [phone] 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 2Carotid ultrasound 2016 showing bilateral noncritical carotid stenosis. 50-70% bilaterally. 3Per chart review meeting GFR criteria 4Per MOCA done at [facility] 5Patient's word processing operator is [facility] and patient sees Dr. Gume Mart Social History Social History Type Response Smoking Status Former smoker, quit more than 30 days ago entered on: 09/28/21 Sex Patient Care team information Care Team Personnel Name: Carmita Enriquez RN Position: [facility] RN Member Role: Primary Care Nurse Name: Mattie Morris RN Position: [facility] RN Member Role: Primary Care Nurse Name: Ranjeet Rushing MD Position: [facility] Primary Care Physician Member Role: PCP Address: Address: [address] [place] [address] - Name: Yoselny Bradley RN Position: [facility] RN Member Role: Primary Care Nurse Name: Chari Grey NP Position: [facility] PCO Associate Professional Member Role: Lifetime Consulting Provider Address: Address: [address] [place] [address] - Name: Yariel Fuller RN Position: [facility] RN Member Role: Primary Care Nurse Name: Julius Stringer RN Position: [facility] RN Member Role: Primary Care Nurse Name: Shantell Carter Position: S RN Member Role: Primary Care Nurse Name: Michelle Morris RN Position: [facility] PCO RN Member Role: Primary Care Nurse Care Team Related Persons Name: ADRYAN GOVEA Address: home [address] [facility] [address] [place] [address] Name: TAMARA GOVEA Address: [address] [place] [address]
--- OUTSIDE RECORDS SUMMARY | 2023-07-07 09:02 | XMS_ITS | Continuity of Care Document ---
Author Name Unknown Organization [facility] Leif lt Address [address] [place] [address]- Care Team Providers Care Plating Engineer Name Role Phone Ranjeet Rushing MD Primary Care Physician [phone] Encounter [facility] Date(s): 01/22/23 - 02/21/23 [facility] Adult [address] [place] [address]- Allergies, Adverse Reactions, Alerts Substance Reaction Severity [...] Gi sarah 1Result Comment: [05/28/2017] [facility]: [id number] 2Location History: [facility] 3Admin Note: VIS GIVEN-DATED 04/04/09 4Admin Note: vis given 5Admin Note: VIS given 6Admin Note: VIS-GIVEN 7Location History: [facility] 8Location History: [facility] 9[place] Comment: [10/17/2015] PER NICO AT [facility] 10Admin Note: VIS GIVEN 11Admin Note: [...] 2 Refills, Maintenance, 01/20/23 22:52:00 EDT, Powder, [facility]/pharmacy #[id number], 2 puffs Inhalation Every [...] 14:16:00 EDT, Route to Pharmacy Electronically, [facility], 161, cm, 02/20/23 15:50:00 EDT, Height, 77.2, kg, 11/13/22 13:42:00 EDT, Dry Weight Start Date: 02/21/23 Status: Ordered BD UF SHORT PEN NEEDLE [id number] BD UF SHORT PEN NEEDLE [id number], See Instructions, # 200 Unknown, 5 Refills, USE TO INJECT INSULIN TWICE A DAY, 160, cm, 11/27/21 14:08:00 EDT, Height, 74.8, kg, 11/01/21 15:05:00 EST, Dry Weight Start Date: 11/30/21 Status: Ordered colchicine 0.6 mg oral capsule 1 capsule = 0.6 mg, By Mouth, 2 times a day, # 20 capsule, 0 Refills, Maintenance, 12/31/22 10:10:00 EDT, Capsule, [facility]/pharmacy #0618, Partial fill upon patient request if the [...] 0 Refills, Maintenance, 02/21/23 14:16:00 EDT, [facility], 161, cm, 02/20/23 15:50:00 EDT, Height, [...] 11/28/22... Start Date: 12/13/22 Status: Ordered Pen [place], 31 G x 5 mm BD Ultra [...] EDT, Route to Pharmacy Electronically, [facility], 161, cm, 02/20/23 15:50:00 EDT, Height, [...] 14:16:00 EDT, Route to Pharmacy Electronically, [facility], 161, cm, 02/20/23 15:50:00 EDT, Height, [...] Active *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 Gume Mart 6MOCA 20 Social History Social History Type Response Smoking Status Former smoker, quit more than 30 days ago; Other: QUIYT COUPLE YEARS AGO; entered on: 11/13/22 Sex Patient Care team information Care Team Personnel Name: Trinity Lloyd MD Position: [facility] Outreach Member Role: Lifetime Consulting Physician Name: Carmita Enriquez RN Position: [facility] RN Member Role: Primary Care Nurse Name: Mattie Morris RN Position: [facility] RN Supv Member Role: Primary Care Nurse Name: Ranjeet Rushing MD Position: [facility] Physician - Primary Care Member Role: PCP Address: Address: [address] [place] [address] - Name: Yoselyn Bradley RN Position: [facility] RN Member Role: Primary Care Nurse Name: Chari Grey NP Position: [facility] PCO Associate Professional Member Role: Lifetime Consulting Provider Address: Address: [address] [place] [address] - [place] Name: Yariel Fuller RN Position: [facility] RN Member Role: Primary Care Nurse Name: Julius Stringer RN Position: [facility] RN Member Role: Primary Care Nurse Name: Shantell Carter Position: [facility] RN Member Role: Primary Care Nurse Name: Michelle Morris RN Position: [facility] AMB Nurse Member Role: Primary Care Nurse Care Team Related Persons Name: DARYAN GOVEA Address: home [address] [place], [place] Name: TAMARA GOVEA Address: home [address] [facility] [address] [place] [address]
--- OUTSIDE RECORDS SUMMARY | 2023-07-07 09:02 | XMS_ITS | Continuity of Care Document ---
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 3Admin Note: VIS GIVEN-DATED 04/04/09 4Admin Note: vis given 5Admin Note: VIS given 6Admin Note: VIS-GIVEN 7Location History[place] [facility] 8Location History: [facility] DR Seaman Comment: [10/17/2015] PER NICO AT [facility] 10Admin Note: VIS GIVEN 11Admin [...] 11 Refills, Maintenance, 05/07/22 16:00:00 EDT, Powder, [facility]/pharmacy #0637, 2 puffs Inhalation Every 6 hours,PRN:as needed, 160, cm, 04/24/22 8:34:00 EDT, Height, 72.7, kg, 04/24/22 8:34:00... Start Date: 05/07/22 Status: Ordered alendronate 70 mg oral tablet 1 tablet, By Mouth, Every week, # 12 tablet, 1 Refills, Maintenance, 07/12/22 10:05:00 EST, [facility], 160, cm, 07/09/22 14:04:00 EST, Height, 72.7, kg, 04/24/22 8:34:00 EDT, Dry Weight Start Date: 07/12/22 Status: Ordered allopurinol 300 mg oral tablet 1, tablet, By Mouth, Daily, # 90 tablet, Refills 0, Route to Pharmacy Electronically, [facility], 160, cm, 02/21/22 15:11:00 EDT, Height, 74.8, kg, 11/01/21 15:05:00 EST, Dry Weight Start Date: 03/27/22 Status: Ordered BACK BRACE BACK BRACE, See Instructions, # 1 each, Refills 0, Tot. Refills 0, Maintenance, DX BACK PAIN M54.9 DANTE LIFETIME HT 5'3 WT 182 LB, 07/23/16 14:35:27, Compound Start Date: 07/23/16 Status: Ordered BD UF SHORT PEN NEEDLE [id number] BD UF SHORT PEN NEEDLE [id number], See Instructions, # 200 Unknown, 5 Refills, [...] EDT, Compound Start Date: 05/11/19 Status: Ordered [facility] VITAMIN D3 25 MCG [facility] D[facility] 25 MCG SOFTGEL, 1, capsule, By Mouth, Daily, # 90 capsule, 1 Refills, 160, cm, 10/16/21 14:42:00 EST, Height, 75, kg, 09/14/21 11:51:00 EST, Dry Weight Start Date: 10/17/21 Status: Ordered cyanocobalamin 500 mcg oral tablet 1 tablet = 500 mcg, By Mouth, Daily, # 90 tablet, 3 Refills, Maintenance, 04/12/22 16:02:00 EDT, Tablet, [facility]/pharmacy #[id number], 160, cm, 04/10/22 14:31:00 EDT, Height, [...] Maintenance, 05/23/2213:56:00 EDT, [facility] to [facility] Electronically, [facility], 160, cm, 02/21/22 15:11:00 EDT, Height, 74.8, kg, 11/01/21 15:05:00 EST, Dry Weight Start Date: 03/12/22 Status: Ordered Lidoderm 5% film 1 patch, Topically, Daily, # 30 patch, 11 Refills, Maintenance, 12/28/21 15:03:00 EDT, [facility]/pharmacy#0693, Partial fill upon patient request if the prescription is for a schedule II opioid drug., 1 patch Topically Daily,x30 days, 160, cm, 11/27/21 14:... Start Date: 12/28/21 Stop Date: 12/23/22 Status: Ordered Lyrica 150 mg oral capsule 1 capsule = 150 mg, By Mouth, 2 times a day, DOSAGE INCREASE, # 60 capsule, 3 Refills, Maintenance,08/05/22 10:44:00 EST, Capsule, [facility]/pharmacy #0693, 160, cm, 07/23/22 20:25:00 EST, Height, 71.8, kg, 07/23/22 20:25:00 EST, Dry Weight Start Date: 08/05/22 Status: Ordered magnesium oxide 400 mg oral tablet 1 tablet, By Mouth, Daily, # 100 tablet, 2 Refills, [facility], 160, cm, 02/21/22 15:11:00 EDT, Height, 74.8, kg, 11/01/21 15:05:00 EST, Dry Weight Start Date: 03/28/22 Status: Ordered Melatonin 3 mg oral tablet 1 tablet, By Mouth, Daily at bedtime, PRN NEEDED, # 90 tablet, 3 Refills, Maintenance, 09/12/22 11:29:00 EST, [facility] 88[facility], 90, TAKE 1 TABLET BY MOUTH AT [...] 0 Refills, Maintenance, 08/30/22 18:27:00 EST, Tablet, [facility]/pharmacy #0693, Partial fill upon patient request if the prescription is for a schedule II opioid drug., 160, cm, 07/23/22 20:25:00 E... Start Date: 08/30/22 Status: Ordered Multivitamin 1 tablet, By Mouth, Daily, 0 Refills, Maintenance, 12/09/19 16:05:00 EDT Start Date: 12/09/19 Status: Ordered Pen [place], 31 G x 5 mm BD Ultra [...] 07/15/22 11:54:00 EST, Route to Pharmacy Electronically, [facility]/pharmacy #[id number], 160, cm, 07/09/22 14:04:00 EST, Height, [...] 1, 07/26/22 19:58:00 EST, Route toPharmacy Electronically, [facility]/pharmacy #[id number], 160, cm, 07/23/22 20:25:00 EST, Height, 71.8, kg, 07/23/22 20:25:00 EST, Dry Weight Start Date: 07/26/22 Status: Ordered traMADol 50 mg oral tablet See Instructions, TAKE 1-2 TABLETS BY MOUTH EVERY 6 HOURS SCHEDULE FOLLOW VISIT, NEEDED FOR PAIN, # 240 tablet, 5 Refills, Maintenance, 08/05/22 10:45:00 EST, [facility]/pharmacy #0693, 160, cm, 07/23/2220:25:00 EST, Height, 71.8, [...] 05/23/22 13:56:00 EDT, Route to Pharm[facility] Electronically, [facility] 11 Refills, Soft Stop, 06/21/22 13:29:00 EDT, [facility]/pharmacy #0693, 160, cm, 05/17/22 9:55:00 EDT, Height, [...] Unknown, 5 Refills, Maintenance, 05/07/22 15:49:00 EDT, [facility] ST[facility], 160, cm, 04/24/22 8:34:00 EDT, Height, 72.7, [...] Maintenance, 09/25/20 7:44:00 EST, Capsule, [facility]/pharmacy #0693, resent from 08/14, 160, cm, 09/12/20 [...] (osteoarthritis), cervical Confirmed Active Osteoporosis Confirmed Active *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 Gume [...] Care Nurse Name: Ranjeet Rushing MD Position: [facility] Primary Care Physician Member Role: PCP Address: Address: [address] [place] [address]- Name: Yoselyn Bradley RN Position: [facility] RN Member Role: Primary Care Nurse Name: Chari Grey NP Position: [facility] PCO Associate Professional Member Role: Lifetime Consulting Provider Address: Address: [address] [place] [address] Road [facility] [place] [address]- Name: Yariel Fuller RN Position: [facility] RN Member Role: Primary Care Nurse Name: Julius Stringer RN Position: [facility] RN Member Role: Primary Care Nurse Name: Shantell Carter Position: [facility] RN Member Role: Primary Care Nurse Name: Michelle Morris RN Position: [facility] PCO RN Member Role: Primary Care Nurse Care Team Related Persons Name: ADRYAN GOVEA Address: home [address] [facility] [address] [place] [address] Name: TAMARA GOVEA Address: home [address] [facility] [address] [place] [address]
--- OUTSIDE RECORDS SUMMARY | 2023-07-07 09:03 | XMS_ITS | Continuity of Care Document ---
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 Name Role Phone Ranjeet Rushing MD Primary Care Physician Encounter [facility] Date(s): 04/09/23 - 04/09/[address] [address]- Discharge Disposition: A-D/C Home Attending Physician: Pelon You MD Admitting Physician: Pelon You MD Referring Physician: Not on Staff, Referring [...] 11 07/19/08 Gi sarah 1Result Comment: [05/28/2017] [facility]: [id number] 2Location History: [facility] 3Admin Note: VIS GIVEN-DATED 04/04/09 4Admin Note: vis given 5Admin Note: VIS given 6Admin Note: VIS-GIVEN 7Location History: [facility] 8Location History: [facility] DEANGELO HOOK 9Resesperanza Comment: [10/17/2015] PER NICO AT [facility] 10Admin Note: VIS GIVEN 11Admin Note: VIS [...] 2 Refills, Maintenance, 04/01/23 15:47:00 EDT, Powder, [facility]/pharmacy #[id number], 2 puffs Inhalation Every 6 hours,PRN:as [...] 16:45:00 EDT, Route to Pharmacy Electronically, [facility], 160, cm, 03/17/23 11:11:00 EDT, Height, 69.9, [...] Status: Ordered BD UF SHORT PEN NEEDLE [id number] BD UF SHORT PEN NEEDLE [id number], See Instructions, # 200 Unknown, 5 Refills, USE TO INJECT INSULIN TWICE A DAY, 160, cm, 11/27/21 14:08:00 EDT, Height, 74.8, kg, 11/01/21 15:05:00 EST, Dry Weight Start Date: 11/30/21 Status: Ordered colchicine 0.6 mg oral capsule 1 capsule = 0.6 mg, By Mouth, 2 times a day, # 20 capsule, 0 Refills, Maintenance, 12/31/22 10:10:00 EDT, Capsule, [facility]/pharmacy #[id number], Partial fill upon patient request if [...] 16:45:00 EDT, Route to Pharmacy Electronically, [facility], 160, cm, 03/17/23 11:11:00 EDT, Height, 69.9, [...] Pharmacy Electronically, [facility], 160, cm, 03/17/23 11:11:00 EDT, Height, 69.9, [...] 11/28/22... Start Date: 12/13/22 Status: Ordered Pen Orange, 31 G x 5 mm BD Ultra [...] 1 Refills, Maintenance, 04/01/23 15:47:00 EDT, TabletSELAM [id number], Partial fill upon patient request if the prescript... Start Date: 04/01/23 Status: Ordered simvastatin 10 mg oral tablet 1, tablet, By Mouth, Daily at bedtime, # 28 tablet, Refills 0, Maintenance, 03/21/23 16:45:00 EDT, Route to Pharmacy Electronically, [facility], 160, cm, 03/17/23 11:11:00 EDT, Height, 69.9, [...] 16:45:00 EDT, Route to Pharmacy Electronically, [facility], 160, cm, 03/17/23 11:11:00 EDT, Height, 69.9, kg, 03/17/23 11:11:00 EDT, Dry Weight Start Date: 03/21/23 Status: Ordered Trelegy Ellipta inhalation powder 1 puffs, Inhalation, Daily, at the same time every day, # 3 each, 1 Refills, Maintenance, 04/01/23 15:47:00 EDT, Powder, [facility]/pharmacy #[id number], Partial fill upon patient request if [...] (osteoarthritis), cervical Confirmed Active Osteoporosis Confirmed Active *[facility] [phone] 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 Gume Mart 6MOCA 20 Results Radiology Reports * Exam Date Time Procedure Performing Provider Status 04/09/23 8:25 PM Chest 2 Views Frontal and Lat Abby Magaña; Nadine (Verified) Notes: (Chest 2 Views Frontal and Lat) Reason For Exam: Chest Pain;Other: RESULT: Chest 2 Views Frontal and Lat Chest 2 Views Frontal and Lat Hx of Present Illness: pt has bilat pedal edema, reddened, pt sts unable to ambulate due to pain. sts has been to PCP Urgent care podiatry without results or suggestions. athletes foot cream no relief.; Reason: Other:; Chest Pain; Clinical Question(s): Other: COMPARISON: Chest x-ray 03/17/2023 FINDINGS: LINES AND TUBES: None. LUNGS AND PLEURA: Chronic elevation of the right hemidiaphragm. Low lung volumes with mild basilar atelectasis and accentuation of central vascularity. Lungs are otherwise clear with no consolidation. No pleural effusion. No pneumothorax. HEART, MEDIASTINUM AND SUZIE: Mild prominence of the cardiac silhouette, unchanged. Aorta is calcified. BONES AND SOFT TISSUES: No acute abnormality. IMPRESSION: Mild cardiac enlargement with central vascular congestion but no edema or effusions. WSN: [id number] Ordering Physician: Khoa Sorto Dictated By: Gume Alvarez MD Dictated Date/Time: 04/09/23 8:30 pm Reviewed By: Gume Alvarez MD Signed By: Gume Alvarez MD Signed Date/Time: 04/09/23 8:30 pm Transcribed By: JOSE Transcribed Date/Time: 04/09/23 8:29 pm Vital Signs Most recent to oldest [Reference Range]: 1 2 3 Height 160 cm (04/09/23 9:07 PM) 160 cm (04/09/23 7:50 PM) 160 cm (04/09/23 5:46 PM) Weight 70 kg (04/09/23 9:07 PM) 70 kg (04/09/23 7:50 PM) 70 kg (04/09/23 5:46 PM) Oxygen Saturation [94-100 %] 96 % (04/09/23 9:07 PM) 92 % *L* (04/09/23 7:50 PM) 100 % (04/09/23 5:44 PM) Pulse Rate [55-90 bpm] 87 bpm (04/09/23 9:07 PM) 88 bpm (04/09/23 7:50 PM) 91 bpm *H* (04/09/23 5:44 PM) Body Mass Index [18.5-24.99 kg/m2] 27.34 kg/m2 *H* (04/09/23 9:07 PM) 27.34 kg/m2 *H* (04/09/23 7:50 PM) Blood Pressure [90-138/55-84 mm Hg] 164/73mm Hg *H* (04/09/23 9:07 PM) 153/81mm Hg *H* (04/09/23 7:50 PM) 116/98mm Hg (04/09/23 5:46 PM) Respiratory Rate [16-30 br/min] 15 br/min *L* (04/09/23 9:07 PM) 15 br/min *L* (04/09/23 7:50 PM) 22 br/min (04/09/23 5:44 PM) Temperature [96.8-100.4 DegF] 97.7 DegF (04/09/23 9:07 PM) 97.6 DegF (04/09/23 7:50 PM) 98.3 DegF (04/09/23 5:46 PM) Mode of Delivery (Oxygen) Room air (04/09/23 9:07 PM) Room air (04/09/23 7:50 PM) Room air (04/09/23 5:44 PM) Blood pressure sites Arm, left (04/09/23 9:07 PM) Arm, left (04/09/23 7:50 PM) Arm, right (04/09/23 5:46 PM) Temperature Route Oral (04/09/23 9:07 PM) Oral (04/09/23 7:50 PM) Temporal (04/09/23 5:46 PM) Dry Weight 70 kg (04/09/23 9:07 PM) 70 kg (04/09/23 7:50 PM) 70 kg (04/09/23 5:46 PM) Social History Social History Type Response Smoking Status Former smoker, quit more than 30 days ago; Other: QUIYT COUPLE YEARS AGO; entered on: 11/13/22 Sex Note * Avelino SUTTON, Pelon Person: PERFORM Event Display: Patient Education Leaflets Authored Date: [id number] Athlete???s Foot ?? [id number] Athlete???s Foot Athlete???s foot (tinea pedis) is [...] the rash is all gone. ??? Use mzcs-goc-bvnmmti antifungal powders or sprays on your feet [...] skin ?? Last Reviewed Date: 2021 ?? [id number] [employer]. All rights reserved. This information is not intended as a substitute for professional medical care. Always follow your healthcare professional's instructions. ?? Patient Care team information Care Team Personnel Name: Trinity Lloyd MD Position: [facility] Outreach Member Role: Lifetime Consulting Physician Name: Carmita Enriquez RN Position: [facility] RN Member Role: Primary Care Nurse Name: Mattie Morris RN Position: [facility] RN Supv Member Role: Primary Care Nurse Name: Ranjeet Rushing MD Position: [facility] Physician - Primary Care Member Role: PCP Address: Address: [address] [place] [address]- [place] Name: Yoselyn Bradley RN Position: [facility] RN Member Role: Primary Care Nurse Name: Chari Grey NP Position: [facility] PCO Associate Professional Member Role: Lifetime Consulting Provider Address: Address: [address] [place] [address]- [place] Name: Yariel Fuller RN Position: [facility] RN Member Role: Primary Care Nurse Name: Julius Stringer RN Position: [facility] RN Member Role: Primary Care Nurse Name: Shantell Carter Position: [facility] RN Member Role: Primary Care Nurse Name: Libia Rivera RN Position: [facility] RN Member Role: Primary Care Nurse Name: Michelle Morris RN Position: [facility] AMB Nurse Member Role: Primary Care Nurse Name: Amber Mahoney Position: [facility] ED TA [facility] Member Role: Patient Care Provider Name: Pelon You MD Position: [facility] ED Medicine MD Member Role: Admitting Physician Address: Address: [address] [place] [address] [place] [address]- [place] Name: Lalo Mc RN Position: [facility] ED RN W/OE and Tasks Member Role: Patient Care Provider Care Team Related Persons Name: ADRYAN GOVEA Address: home [address] [facility] [address] [place] [address] Name: TAMARA GOVEA Address: home [address] [facility] [address] [place] [address]
[2023-07-07] MEDS: Albuterol/Iprat 2.5/0.5MG 3 ML AMPUL.NEB INHALE (09:04)
--- OUTSIDE RECORDS SUMMARY | 2023-07-07 09:04 | XMS_ITS | Patient Health Record ---
Author Name Unknown [facility] Address [address] [place] [address] Care Team Providers Care Inspector Assemblies And Installations Name Role Phone Ranjeet Rushing MD Primary Care Provider Amber Lang Unavailable [phone] ALLERGIES Allergen (clinical drug ingredient) Drug/Non Drug Allergy documented on EMR Reaction Allergy Type Onset Date Status zolpidem Ambien Unknown Drug Allergy Active diphenhydramine Benadryl rash Drug Allergy A ctive Lac-Hydrin rash Drug Allergy Active Latex Latex rash Allergy Active REASON FOR REFERRAL No Information MEDICATIONS Medication SIG (Take, Route, Frequency, Duration) Notes Start Date End Date Status traMADol HCl 50 MG 1 tablet as needed Orally every 6 hrs Active Gabapentin 300 MG 1 capsule Orally Onc e a day Not-Taking Alendronate Sodium 70 MG 1 tablet Orally Active Simvastatin 10 MG 1 tablet in the even ing Orally Once a day Active Vitamin B12 Active Fish Oil 500 MG 1 capsule Orally Twi ce a day Active Ciclopirox Olamine 0.77 % 1 application Externally Twice a day for 30 days Active Ciclopirox Olamine 0.77 % 1 application to affected area Externally Twice a day for 30 days Active Colchicine Active Methotrexate Not-Drew ing Mirtazapine 45 MG 1 tablet at bedtime Orally Active Vitamin D3 25 MCG (1000 UT) 1 capsule Orally Once a day for 30 day(s) Active Lidocaine 5 % 1 patch remove after 12 hours Externally Once a day Active FLUoxetine HCl 20 MG 1 capsule Orally On ce a day for 30 day(s) Active Skyrizi 150 Dose Act yesi Vitamin D 1000 UNIT 1 tablet Orally Once a day Active Clobetasol Propionate 0.05 % 1 application to affected area Externally Twice a day for 14 days 07/08/2018 Not-Taking Furosemide 40 MG 1 tablet Orally Once a day Active Fluticasone Furoate Not-Taking Spironolactone 100 MG 1 tablet Orally On ce a day Active Fluticasone Furoate-Vilanterol Not-Takin g Allopurinol 300 MG 1 tablet Orally Once a day Active Tresiba FlexTouch Ac tive Victoza Not-Taking Multi Vitamin - 1 tablet Orally Once a day Active Keflex 500 MG 1 capsule Orally guanakito ry 12 hrs for 10 day(s) 09/19/2021 Not-Taking Rybelsus 14 MG 1 tablet at least 30 minutes before first food, beverage or other oral medicine of the day Orally Once a day Active Extra Depth Orthopedic Shoes (1 Pair) with Customized Heat Molded Multidensity Innersoles (3 Pair) as directed Dx: NIDDM/Polyneuropathy (E11.42), Hammertoe Foot Deformity (M20.41,M20.42), Preulcerative Skin Lesion(s) (L85.1 07/02/2022 Not-Taking albuterol Active Vitamin B-12 500 MCG 2 tablets Orally On ce a day Active Humira 40 MG/0.8ML as directed Subcutaneous Not-Taking Melatonin 3 MG 1 tablet at bedtime as needed with food Orally Once a day Active Folic Acid Not-Takin g Magnesium Oxide 400 MG 1 tablet as neede d Orally Once a day Active Hydrocortisone 2.5 % 1 application to affected area Rectal Twice a day for 30 day(s) 06/30/2018 Not-Taking buPROPion HCl ER (XL) 150 MG 1 tablet in the morning Orally Once a day for 30 day(s) Active NovoLOG 100 UNIT/ML as directed Subcutaneous Not-Taking Colcrys 0.6 MG 1 tablet Orally Once a day for 7 days Not-Taking Extra Depth Orthopedic Shoes (1 Pair) with Customized Heat Molded Multidensity Innersoles (3 Pair) as directed Dx: NIDDM/Polyneuropathy (E11.42), Hammertoe Foot Deformity (M20.41,M20.42), Preulcerative Skin Lesion(s) (L85.1 01/03/2023 Active Extra Depth Orthopedic Shoes (1 Pair) with Customized Heat Molded Multidensity Innersoles (3 Pair) as directed Dx: NIDDM/Polyneuropathy (E11.42), Hammertoe Foot Deformity (M20.41,M20.42), Preulcerative Skin Lesion(s) (L85.1 11/27/2018 Not-Taking Extra Depth Orthopedic Shoes (1 Pair) with Customized Heat Molded Multidensity Innersoles (3 Pair) as directed Dx: NIDDM/Polyneuropathy (E11.42), Hammertoe Foot Deformity (M20.41,M20.42), Preulcerative Skin Lesion(s) (L85.1 09/14/2019 Not-Taking IMMUNIZATIONS Vaccine Route Administration Date Status Comme nts COVID-19 Pfizer BioNTech Vaccine Unknown 09/24/2020 Administered First Dose: 09/03/20 2nd dose: 09/24/2020 Influenza Unknown 03/25/2018 Administered Influenza Unknown 05/25/2019 Administered Influenza Unknown 04/24/2020 Administered Influenza Unknown 06/12/2021 Administered Influenza Unknown 06/24/2022 Administered SOCIAL HISTORY Tobacco Use: Social History Observation Description Date Details (start date - stop date) Current Smoker NA - NA Sex Assigned At : Social History Observation Description Sex Assigned At Unknown Tobacco Use/Smoking Question Answer Notes Are you a: current smoker How often do you smoke cigarettes? some days, bu t not every day How many cigarettes a day do you smoke? 5 or les s Additional Findings: Tobacco Non-User Current no n-smoker Alcohol Screen Question Answer Notes Did you have a drink containing alcohol in the p ast year? No Points 0 Interpretation Negative Tobacco use other than smoking: Question Answer Notes Are you an other tobacco user? No PROBLEMS Problem Type ICD Code Onset Dates Problem Status W/U Status Risk SNOMED Code Notes Problem Other hammer toe(s) (acquired), right foot (M20.41) Active confirmed Acquired hamme r toe of right foot (8403923691860118) Problem Other hammer toe(s) (acquired), left foot (M20.42) Active confirmed Acquired hamme r toe of left foot (2789304561668589) Problem Type 2 diabetes mellitus with diabetic polyneuropathy (E11.42) Active confirmed Polyneuropathy due to type 2 diabetes mellitus (184484084) Problem Non-pressure chronic ulcer of left ankle limited to breakdown of skin (L97.321) Active confirmed [id number] Problem Non-pressure chronic ulcer of right ankle limited to breakdown of skin (L97.311) Active confirmed 54839982662848928 Problem Type 2 diabetes mellitus with polyneuropathy (E11.42) Active confirmed [id number] Problem Psoriasis (L40.9) Active confirmed 9014 002 Problem 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) Active confirmed 0122317525473442 VITAL SIGNS Height 5 ft 3 in in 04/09/2023 Weight 156 lbs 04/09/2023 BMI 27.63 kg/m2 04/09/2023 Encounters Encounter Location Date Provider Diagnosis [address] [address] 09/16/2022 Amber Perica [address] [address] 10/04/2022 Amber Perica Type 2 diabetes mellitus with polyneuropathy E11.[address] [address] 10/08/2022 Amber Perica [address] [address] 01/03/2023 Amber Perica Other hammer toe(s) (acquired), right foot M20.41 ; Other hammer toe(s) (acquired), left foot M20.42 and Type 2 diabetes mellitus with polyneuropathy E11.[address] [address] 02/07/2023 Amber Perica Other hammer toe(s) (acquired), right foot M20.41 ; Pain in toe of left foot M79.675 ; Other hammer toe(s) (acquired), left foot M20.42 ; Type 2 diabetes mellitus with polyneuropathy E11.42 and Pain in toe of right foot M79.[address] [address] 02/18/2023 Amber Perica Other hammer toe(s) (acquired), right foot M20.41 ; Skin disorder L98.9 ; Other hammer toe(s) (acquired), left foot M20.42 ; Type 2 diabetes mellitus with polyneuropathy E11.42 ; Psoriasis L40.9 and Xerosis cutis L85.3 [facility] [address] [place] [address] 03/31/2023 [facility] [address] [address] 04/04/2023 Amber [facility] [address] 04/09/2023 Amber King Tinea pedis of both feet B35.3 ; Type 2 diabetes mellitus with diabetic polyneuropathy E11.42 ; Psoriasis L40.9 and Lichen planus L43.9 ASSESSMENTS Encounter Date Diagnosis Assessment Notes Treatment Notes Treatment Clinical Notes 10/04/2022 Type 2 diabetes mellitus with polyneuropathy (ICD-10 - E11.42) 01/03/2023 Other hammer toe(s) (acquired), right foot (ICD-10 - M20.41) Patient Educated with: DIABETIC FOOT CARE INSTRUCTIONS.pdf (DIABETIC FOOT CARE INSTRUCTIONS.pdf ) 02/07/2023 Other hammer toe(s) (acquired), right foot (ICD-10 - M20.41) 02/07/2023 Pain in toe of left foot (ICD-10 - M79.675) 02/18/2023 Other hammer toe(s) (acquired), right foot (ICD-10 - M20.41) 02/18/2023 Skin disorder (ICD-1 0 - L98.9) 04/09/2023 Type 2 diabetes mellitus with diabetic polyneuropathy (ICD-10 - E11.42) 04/09/2023 Tinea pedis of both feet (ICD-10 - B35.3) 04/09/2023 Psoriasis (ICD-10 - L40.9) 02/18/2023 Other hammer toe(s) (acquired), left foot (ICD-10 - M20.42) 02/07/2023 Other hammer toe(s) (acquired), left foot (ICD-10 - M20.42) 01/03/2023 Other hammer toe(s) (acquired), left foot (ICD-10 - M20.42) 01/03/2023 Type 2 diabetes mellitus with polyneuropathy (ICD-10 - E11.42) 02/18/2023 Type 2 diabetes mellitus with polyneuropathy (ICD-10 - E11.42) 04/09/2023 Lichen planus (ICD-1 0 - L43.9) 02/07/2023 Type 2 diabetes mellitus with polyneuropathy (ICD-10 - E11.42) 02/18/2023 Psoriasis (ICD-10 - L40.9) 02/07/2023 Pain in toe of right foot (ICD-10 - M79.674) 02/18/2023 Xerosis cutis (ICD-1 0 - L85.3) PLAN OF TREATMENT Pending Test Test Name Order Date *Uric Acid, Serum 03/26/2022 ESR 03/26/2022 X ray : Foot, left 3V 09/19/2021 X ray : Foot, left 3V 03/06/2021 X ray : Foot, left 3V 12/25/2021 X ray : Foot, left 3V 03/26/2022 65146- Biopsy of skin lesion 06/09/2018 47900- Biopsy of skin lesion 06/30/2018 98636- Biopsy of Addt'l Lesions 06/30/20 18 Insurance Providers Payer Name Payer Address Payer Phone Subscriber Number Group Number Insured Name Patient Relationship to Insured Coverage Start Date Coverage End Date [facility] [employer] Claims [address] [place] [address] [phone] [id number] Romero Mari Self - patient is the insured MEDICAL (GENERAL) HISTORY Medical History History ICD Code Anxiety Arthritis (OA,RA) Asthma Back,Hip,Knee Pain Cataracts Depression Diverticulosis Gout Kidney Disease Macular Degeneration Nerve Disorder(RSD) Numbness (Neuropathy) Osteoporosis Poor Circulation (PVD) Psoriasis/Eczema Joint/bone implants/Screws Transfusions Diabetes Cellulitis fractured ribs and toes Surgical History Surgery Date(Month/Year) Veins in legs Fusion in leg Kidney Stones Operation on back of neck 08/09/2020 Hospitalization History Reason Date(Month/Year) Urgent Care - Falls fractured ribs and t oes 07/2021 [facility] feet 04/14 [facility]- for fractured pelvis left side 11/12-12/13
[2023-07-07] MEDS: traMADoL HCL 50 MG TABLET PO (09:08)
--- NOTE | 2023-07-07 09:09 | PC.NURSE ---
pt medicated per order for pain, rt at bedside doing updraft, rt stated they have put her back on 2L NC as they saw her O2 sat at 86% after returning from radiology.
--- NOTE | 2023-07-07 10:12 | PC.NURSE ---
patients O2 sat was noted to be low, RT had taken patient back off O2, pt was placed back on O2 NC and O2 sat went to 95 and was titrated down to 1L NC. will assess patients pain upon waking.
--- NOTE | 2023-07-07 12:05 | PC.NURSE ---
pt transported to overflow
--- NOTE | 2023-07-07 12:15 | PHA.MEDREC ---
Pharmacy Consult ? Medication Reconciliation Pharmacy has completed the medication reconciliation. Spoke to daughter Rosemarie at patient's bedside and reviewed medication list done by nurse.
--- NOTE | 2023-07-07 16:43 | PC.NURSE ---
IXEKZUMAB NOT AVAILABLE, PT'S DAUGHTER TO BRING MEDICATION FROM HOME.
[2023-07-07 17:51] LABS: COVID-19 Test Negative (Negative); IDNOW Serial# BCCEAD1C
--- NOTE | 2023-07-07 18:25 | MHC.EDTECH ---
Patient ate 100 % of supper and drank 120 ml coffee ,pt did fed herself .
--- NOTE | 2023-07-07 18:30 | PC.NURSE ---
PT ON 2L N/C SATTING 94-96%. PRN O2 AT HOME PER DAUGHTER. PT SEEN BY PHYSICAL THERAPY WHILE DAUGHTER AT BEDSIDE. PLAN IS FOR SHORT TERM REHAB. PT AND DAUGHTER AWARE OF PLAN.
--- NOTE | 2023-07-07 19:56 | PC.NURSE ---
Addendum entered by Shruti Del Valle RN 07/07/23 20:08: 1999 POC is 188. nothing is given. Lantus is scheduled in the morning. Original Note: 1957 Author called the ED charge nurse asking the MD to put an order for POC check on the pt because she has history of DM and on Lantus at .
--- NOTE | 2023-07-07 20:06 | MHC.EDTECH ---
Patient blood sugar check ,and vitals done ,pt was reposition and boosted up in bed ,pt is clean and dry ,pure wick in place ,no apparent distress noted .
--- NOTE | 2023-07-07 20:43 | MHC.EDTECH ---
Patient belongings list done .
[2023-07-07] MEDS: Furosemide 40 MG TABLET PO (21:27)
[2023-07-07] MEDS: Pregabalin 150 MG CAPSULE PO (21:27)
[2023-07-07] MEDS: Atorvastatin Calcium 40 MG TABLET PO (21:27)
[2023-07-07] MEDS: Mirtazapine 30 MG TABLET PO (21:27)
[2023-07-07] MEDS: traZODone HCL 50 MG TABLET PO (21:27)
[2023-07-07 21:39] LABS: Glucose, Whole Blood 188 mg/dL (60-115)
--- NOTE | 2023-07-07 22:44 | MHC.EDTECH ---
This database report writer inform HOSEA Bahena that Patient did not void since i got here at 1500 ,I asked HOSEA Bahena if she will like me to do a bladder scan on Patient ,HOSEA Bahena said yes .Bladder scan done HOSEA Bahena aware of result of 886 ml in Patient bladder .
--- NOTE | 2023-07-07 22:49 | PC.NURSE ---
2245 pt has not voided yet. Remains dry. Given lasix for night meds. Bladder scanned for 886ml. ED Charge nurse notified. [place] estela Barnett for new orders.
--- NOTE | 2023-07-07 23:24 | PC.NURSE ---
steward placed at this time, pt tolerated well. 1000ml output. pt now resting in bed. denies any pain or discomfort
--- NOTE | 2023-07-07 23:55 | MHC.EDTECH ---
0000 rounding done ,Pt sleeping ,no apparent distress noted .
[2023-07-08 06:05] VITALS: BP 167/85; PULSE 85; RESP 16; TEMP 36.9; O2SAT 95
--- NOTE | 2023-07-08 06:08 | MHC.EDTECH ---
Patient slept all night ,awake at 0600 ,vitals taken ,bed pad change ,Pt was reposition and boosted up in bed ,Sherri ryan given ,tissue box on bedside table and small trash bag attached to bedside table .
--- NOTE | 2023-07-08 06:11 | PC.NURSE ---
pt requesting pain medication for back pain. Provider notified.
[2023-07-08] MEDS: traMADoL HCL 50 MG TABLET PO (06:31)
--- NOTE | 2023-07-08 08:07 | MHC.CM.ED ---
LATE ENTRY FROM 07/07/2023 AT 1500: Received case management consult from Dr Caal. Patient came to the ER due to a fall. Found to have a rib fracture. Physical therapy eval completed. Short term rehab is recommended. 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 He can be reached via telephone at [phone]. They are contracted with [facility], [place] [facility], [facility] and [facility]. Referrals made via [facility] to all but [place]. [facility] and [facility] are still reviewing. Met with patient and daughter, Rosemarie. Patient lives in [facility]. Patient received 3 Pfizer vaccines. HCP verified to be on file. PCP verified as Dr Rushing. Both are aware that [facility] and [facility] are reviewing to see if they can offer a bed. Continue to monitor for d/c needs.
--- NOTE | 2023-07-08 08:16 | PC.NURSE ---
assumed care of pt at 0700. pt a&o x4, calm, and cooperative. pt repositioned in bed and set up for breakfast. eating well independently. pt reports 8/10 back pain. was medicated prior to this procedure writer's shift with little effect. pt on 1.5L NC sating 97%. rr even/unlabored. call [facility] within pt reach. plan of care ongoing.
--- NOTE | 2023-07-08 09:22 | PC.NURSE ---
pt hygiene performed, oob to recliner. pt tolerated well. steward cath in place. pt on O2 monitor, sating 95-96%. call [facility] within reach. rr even/unlabored. plan of care ongoing.
[2023-07-08] MEDS: Loratadine 10 MG TABLET PO (11:11)
[2023-07-08] MEDS: Spironolactone 25 MG TABLET 100 MG PO (11:12)
[2023-07-08] MEDS: Pregabalin 150 MG CAPSULE PO (11:12)
[2023-07-08] MEDS: Cholecalciferol (Vitamin D3) 25 MCG TABLET PO (11:12)
[2023-07-08] MEDS: Furosemide 40 MG TABLET PO (11:12)
[2023-07-08] MEDS: Multivitamin TABLET 1 TAB PO (11:12)
[2023-07-08] MEDS: allopurinoL 300 MG TABLET PO (11:12)
[2023-07-08] MEDS: Cyanocobalamin (Vitamin B-12) 500 MCG TABLET PO (11:12)
[2023-07-08] MEDS: FLUoxetine HCl 20 MG CAPSULE 60 MG PO (11:12)
[2023-07-08] MEDS: Insulin Glargine,Hum.rec.anlog 100 UNIT/ML 10 ML VIAL 38 UNIT SUBCUT (11:16)
[2023-07-08] MEDS: Lidocaine 4 % Patch ADH..PATCH 1 PATCH TRANSDERMA (11:16)
--- NOTE | 2023-07-08 12:39 | MHC.CM.ED ---
Addendum entered by Fadia Gagnon 07/08/23 13:08: Insurance auth has been obtained by [facility]. Patient, daughter Amee Houston RN and Aminah MORALES aware. [facility] booked for 330pm. [facility] with chart. Original Note: Patient remains in ER overflow. [facility] is able to offer a bed. They are in the process of obtaining ins auth. Daughter will need to bring patient's [place]. Rosemarie aware and agreeable. Continue to monitor for d/c needs.
[2023-07-08 14:00] VITALS: BP 111/50; PULSE 95; RESP 17; TEMP 36.1; O2SAT 95
--- NOTE | 2023-07-08 15:08 | PC.NURSE ---
pt sleeping comfortable in recliner.
--- NOTE | 2023-07-08 15:52 | PC.NURSE ---
[facility] rehab called and [id number] report given. rn has been notified that pt psoriasis medication in pt bag. pt currently leaving with EMS and en route. pt belongings with pt/EMS.
== END 2023-07-08 15:55 | disposition skilled nursing facility (03) ==
PROVIDERS: Emergency Provider Emergency Medicine; PCP Internal Medicine
DX: S22.32XA Fracture of one rib, left side, initial encounter for closed fracture (principal); W19.XXXA Unspecified fall, initial encounter; Y93.9 Activity, unspecified; Y92.9 Unspecified place or not applicable; Y99.9 Unspecified external cause status; M25.512 Pain in left shoulder; L40.9 Psoriasis, unspecified; J44.9 Chronic obstructive pulmonary disease, unspecified; E11.22 Type 2 diabetes mellitus with diabetic chronic kidney disease; I12.9 Hypertensive chronic kidney disease with stage 1 through stage 4 chronic kidney disease, or unspecified chronic kidney disease; N18.9 Chronic kidney disease, unspecified; Z11.52 Encounter for screening for COVID-19
CPT/HCPCS: 71045; 73030; 82947; 87635; 94640; 96372; 97161; 99285